=== PATIENT | male | born 1975 | race Caucasian/White ===

== ENCOUNTER → 2016-04-22 | Outpatient (CLI) | payer OTHER ==
[~2016-04-22] MED LIST: ACT300 PO; BUSP15TA70 PO; CPROT OT; FOLI1TAB7 PO; FURO20TA PO; LACT10SO17 PO; MCRK/10 PO; MGNO400 PO; MISCCAP80 PO; NADO20TA PO; PRLSR20 PO; RXC5 PO; SPIR25TA PO; TRAM-10 PO
[2016-04-22 18:52] LABS: ALT/SGPT 35 U/L (12-78); BLOOD UREA NITROGEN 9 mg/dl (7-18); BUN/CREATININE RATIO 8.8 (10-20); CALCIUM 8.4 mg/dl (8.5-10.1); CARBON DIOXIDE 21 mmol/L (21-32); CHLORIDE 106 mmol/L (98-107); GLUCOSE 108 mg/dl (70-99); POTASSIUM 3.7 mmol/L (3.5-5.1); SODIUM 141 mmol/L (136-145)
[2016-04-22 18:54] LABS: ALB/GLOB RATIO 0.5 (0.9-2); ALKALINE PHOSPHATASE 141 U/L (45-117); AST/SGOT 30 U/L (15-37)
== END | disposition home or self-care (01) ==
LOC: C.LABSPEC 12:54
PROVIDERS: ATTEND Family Medicine
DX: E87.1 Hypo-osmolality and hyponatremia (principal); R42 Dizziness and giddiness; R56.9 Unspecified convulsions

== ENCOUNTER 2016-07-26 03:59 | Emergency (ER) | payer OTHER ==
[~2016-07-26] VITALS: Ht 172.7 cm; Wt 75.3 kg
[2016-07-26 04:09] VITALS: TEMP 36.8; Ht 172.7 cm; Wt 75.3 kg
--- NOTE | 2016-07-26 04:25 | EMERGENCY ROOM VISIT NOTE ---
History Report prepared by Taniibjulian: Michael Collins Under the Supervision of: Dr. Jeffery Gagnon D.O. First contact with patient: 04:16 Chief Complaint: ABDOMINAL PAIN Stated Complaint: ABD PAIN Nursing Triage Summary: Triage note: Pt reporting upper abdominal pain and right sided chest pain starting at 7pm yesterday evening. Pt took antiacid with relief for "a little bit". Pt states chest pain gets worse when he takes a deep breath. Denies nauea for vomiting. Normal BM. No blood in stools. History of Present Illness The patient is a 40 year old male who presents to the Emergency Room with complaints of persistent upper abdominal pain for the past two days. The patient also has pain in his chest. The pain is worsened with breathing and sometimes with movement. There are no reliving factors known to the patient. The pain was initially 2-3/10 in severity, and is currently rated 4/10 in severity. The patient never had pain like this before, and he notes that he has not had any problems with eating. The patient also has a nonproductive cough. The patient denies any fevers or vomiting. He has a history of alcoholic cirrhosis. Source of History: patient Onset: two days ago Position: abdomen (upper) Symptom Intensity: 4/10 Timing: other (persistent) Modifying Factors (Worsening): breathing, movement Associated Symptoms: + chest pain, + cough, No fevers, No vomiting Review of Systems See HPI for pertinent positives and negatives. A total of ten systems were reviewed and were otherwise negative. Past Medical & Surgical Medical Problems: (1) Alcoholic cirrhosis Family History No pertinent family history Social History Smoking Status: Never Smoker Current/Historical Medications Scheduled Buspirone Hcl (Buspar), 5 MG PO BID Folic Acid (Folvite), 1 MG PO DAILY Furosemide (Lasix), 20 MG PO DAILY Nadolol (Corgard), 10 MG PO DAILY Omeprazole (Prilosec), 20 MG PO DAILY Potassium Chloride (K-Tabs), 10 MEQ PO DAILY Probiotic Product (Probiotic), 1 DOSE PO DAILY Spironolactone (Aldactone), 25 MG PO DAILY Allergies Coded Allergies: Aspirin (Verified Allergy, Unknown, THINS BLOOD, 07/26/16) Physical Exam Vital Signs Date Time Temp Pulse Resp B/P Pulse Ox O2 Delivery O2 Flow Rate FiO2 07/26/16 04:09 36.8 68 18 95/61 99 Room Air Physical Exam GENERAL: Awake, alert, well-appearing, in no distress HENT: Normocephalic, atraumatic. Oropharynx unremarkable. EYES: Normal conjunctiva. Sclera non-icteric. NECK: Supple. No nuchal rigidity. FROM. No JVD. RESPIRATORY: Clear to auscultation. CARDIAC: Regular rate, normal rhythm. Extremities warm and well perfused. Pulses equal. ABDOMEN: Soft, non-distended. No tenderness to palpation. No rebound or guarding. No masses. RECTAL: Deferred. MUSCULOSKELETAL: Right lateral chest wall tenderness to palpation.. The back is symmetrical on inspection without obvious abnormality. There is no CVA tenderness to palpation. No joint edema. LOWER EXTREMITIES: Calves are equal size bilaterally and non-tender. No edema. No discoloration. NEURO: Normal sensorium. No sensory or motor deficits noted. SKIN: No rash or jaundice noted. Medical Decision & Procedures ER Provider Diagnostic Interpretation: X-ray: Per my interpretation. Chest One View Portable: Negative for fracture and pneumothorax. Negative for effusion. Laboratory Results 07/26/16 04:26 Red Blood Count 3.45, Mean Corpuscular Volume 98.8, Mean Corpuscular Hemoglobin 33.9, Mean Corpuscular Hemoglobin Concent 34.3, Mean Platelet Volume 10.0, Neutrophils (%) (Auto) 38.2, Lymphocytes (%) (Auto) 43.3, Monocytes (%) (Auto) 13.2, Eosinophils (%) (Auto) 4.3, Basophils (%) (Auto) 0.9, Neutrophils # (Auto ) 2.84, Lymphocytes # (Auto) 3.22, Monocytes # (Auto) 0.98, Eosinophils # (Auto ) 0.32, Basophils # (Auto) 0.07 07/26/16 04:26 Test 07/26/16 04:26 07/26/16 04:36 White Blood Count 7.44 K/uL (4.8-10.8) Red Blood Count 3.45 M/uL (4.7-6.1) Hemoglobin 11.7 g/dL (14.0-18.0) Hematocrit 34.1 % (42-52) Mean Corpuscular Volume 98.8 fL (80-100) Mean Corpuscular Hemoglobin 33.9 pg (25-34) Mean Corpuscular Hemoglobin Concent 34.3 g/dl (32-36) Platelet Count 126 K/uL (130-400) Mean Platelet Volume 10.0 fL (7.4-10.4) Neutrophils (%) (Auto) 38.2 % Lymphocytes (%) (Auto) 43.3 % Monocytes (%) (Auto) 13.2 % Eosinophils (%) (Auto) 4.3 % Basophils (%) (Auto) 0.9 % Neutrophils # (Auto) 2.84 K/uL (1.4-6.5) Lymphocytes # (Auto) 3.22 K/uL (1.2-3.4) Monocytes # (Auto) 0.98 K/uL (0.11-0.59) Eosinophils # (Auto) 0.32 K/uL (0-0.5) Basophils # (Auto) 0.07 K/uL (0-0.2) RDW Standard Deviation 51.9 fL (36.4-46.3) RDW Coefficient of Variation 14.5 % (11.5-14.5) Immature Granulocyte % (Auto) 0.1 % Immature Granulocyte # (Auto) 0.01 K/uL (0.00-0.02) Anion Gap 5.0 mmol/L (3-11) Est Creatinine Clear Calc Drug Dose 101.2 ml/min Estimated GFR () 118.5 Estimated GFR (Non- 102.2 BUN/Creatinine Ratio 10.3 (10-20) Calcium Level 8.7 mg/dl (8.5-10.1) Total Bilirubin 3.0 mg/dl (0.2-1) Direct Bilirubin 1.0 mg/dl (0-0.2) Aspartate Amino Transf (AST/SGOT) 35 U/L (15-37) Alanine Aminotransferase (ALT/SGPT) 28 U/L (12-78) Alkaline Phosphatase 176 U/L (45-117) Total Protein 7.2 gm/dl (6.4-8.2) Albumin 2.6 gm/dl (3.4-5.0) Bedside Troponin I 0.010 ng/ml (0-0.045) Laboratory results reviewed by me ECG Indication: chest pain Rate (beats per minute): 59 Rhythm: sinus bradycardia Findings: no acute ischemic change, no ectopy ED Course 0420: The patient was evaluated in room B10. A complete history and physical exam was performed. 0538: The patient feels much better and does not currently have any pain. I discussed the work up with him. Medical Decision Differential diagnosis includes musculoskeletal chest pain, rib strain, rib fracture, metabolic derangement. Patient in no distress at 5:44 AM, discussed the workup with the patient we'll treat him with pain medicine for home Impression Primary Impression: Rib pain Scribe Attestation The scribe's documentation has been prepared under my direction and personally reviewed by me in its entirety. I confirm that the note above accurately reflects all work, treatment, procedures, and medical decision making performed by me. Departure Information Dispostion Home / Self-Care Prescriptions Tramadol (Ultram) 50 Mg Tab 1-2 TABS PO BID for 2 Days, #10 TAB Prov: Jeffery Gagnon, DO 07/26/16 Referrals No Doctor, Assigned (PCP) Patient Instructions ED Contusion Rib, My [facility]
[2016-07-26 04:49] LABS: BASO % 0.9 %; BASO ABS # 0.07 K/uL (0-0.2); COMPLETE YES; EOS % 4.3 %; HEMATOCRIT 34.1 % (42-52); IG% 0.1 %; LYMPH % 43.3 %; LYMPH ABS # 3.22 K/uL (1.2-3.4); MEAN CELL VOLUME 98.8 fL (80-100); MEAN CORPUSCULAR HEMOGLOBIN 33.9 pg (25-34); MEAN CORPUSCULAR HGB CONC 34.3 g/dl (32-36); MONO % 13.2 %; NEUT % 38.2 %; PLATELET COUNT 126 K/uL (130-400); RED BLOOD COUNT 3.45 M/uL (4.7-6.1); WHITE BLOOD COUNT 7.44 K/uL (4.8-10.8)
[2016-07-26] MEDS ORDERED: MISCCAP80 PO (05:10)
[2016-07-26] MEDS ORDERED: FURO20TA PO (05:10)
[2016-07-26] MEDS ORDERED: PRLSR20 PO (05:11)
[2016-07-26] MEDS ORDERED: BUSP15TA70 PO (05:11)
[2016-07-26] MEDS ORDERED: FOLI1TAB7 PO (05:11)
[2016-07-26] MEDS ORDERED: SPIR25TA PO (05:11)
[2016-07-26] MEDS ORDERED: MCRK/10 PO (05:14)
[2016-07-26] MEDS ORDERED: NADO20TA PO (05:14)
[2016-07-26 05:31] LABS: BUN/CREATININE RATIO 10.3 (10-20); CALCIUM 8.7 mg/dl (8.5-10.1); CREATININE 0.92 mg/dl (0.60-1.40)
[2016-07-26 05:36] LABS: POTASSIUM 4.1 mmol/L (3.5-5.1)
[2016-07-26] MEDS ORDERED: TRAM-10 PO (05:45)
[2016-07-26 05:59] VITALS: BP 108/57; PULSE 75; O2SAT 99
--- NOTE | 2016-07-26 07:59 | DIAGNOSTIC IMAGING REPORT ---
CHEST ONE VIEW PORTABLE HISTORY: Atypical CHEST PAIN COMPARISON: None. FINDINGS: Cardiac silhouette appears borderline enlarged. The lungs are clear. No pleural effusions. No pneumothorax. IMPRESSION: Borderline enlargement of the cardiac silhouette. Electronically signed by: Naresh Hayes M.D. 07/26/2016 7:58 AM Dictated Date/Time: 07/26/2016 7:57 AM
[2016-08-12] MEDS ORDERED: NADO20TA PO (20:00)
[2016-08-12] MEDS ORDERED: CPROT OT (20:00)
[2016-08-12] MEDS ORDERED: MGNO400 PO (20:00)
== END 2016-07-26 06:00 | disposition home or self-care (01) ==
LOC: C.EDB 04:02
DX: R07.81 Pleurodynia (principal); R00.1 Bradycardia, unspecified; Z79.899 Other long term (current) drug therapy; Z88.6 Allergy status to analgesic agent

== ENCOUNTER 2016-08-10 01:44 | Inpatient (IN) | payer OTHER ==
[~2016-08-10] VITALS: Ht 172.7 cm; Wt 72.7 kg
[~2016-08-10 01:44] MED LIST changes: -ACT300 PO; -CPROT OT; -LACT10SO17 PO; -MGNO400 PO; -RXC5 PO; -TRAM-10 PO
--- NOTE | 2016-08-10 01:55 | EMERGENCY ROOM VISIT NOTE ---
History Report prepared by Brent: Ying Mckee Under the Supervision of: Dr. Daniela Bustillos M.D. First contact with patient: 01:47 Chief Complaint: CHEST PAIN Stated Complaint: CHEST, STOMACH AND BACK PAIN History of Present Illness The patient is a 40 year old male who presents to the Emergency Room with complaints of constant right-sided chest pain for the past 3.5 hours. He is also experiencing RUQ abdominal pain. He rates his current pain as a 6/10 in severity. Tonight he was moving a bed and a mattress when his symptoms began. He states that he has had pain like this before. He has a history of alcoholic cirrhosis. The patient denies fever, vomiting, and abdominal bloating. He was here two weeks ago with similar pain and diagnosed with a rib contusion. Source of History: patient Onset: 3.5 hours ago Position: chest (right) Symptom Intensity: 6/10 Timing: constant Modifying Factors (Worsening): exertion Associated Symptoms: + abdominal pain, No fevers, No vomiting Review of Systems See HPI for pertinent positives & negatives. A total of 10 systems reviewed and were otherwise negative. Past Medical & Surgical Medical Problems: (1) Alcoholic cirrhosis (2) Gall bladder disease Family History No pertinent family history Social History Smoking Status: Never Smoker Alcohol Use: other (former heavy alcohol use, denies current use) Marital Status: single Occupation Status: unemployed Current/Historical Medications Scheduled Buspirone Hcl (Buspar), 5 MG PO BID Folic Acid (Folvite), 1 MG PO DAILY Furosemide (Lasix), 20 MG PO DAILY Nadolol (Corgard), 10 MG PO BID Omeprazole (Prilosec), 20 MG PO DAILY Potassium Chloride (K-Tabs), 10 MEQ PO DAILY Probiotic Product (Probiotic), 1 DOSE PO DAILY Spironolactone (Aldactone), 25 MG PO DAILY Scheduled PRN Lactulose (Chronulac), 15 ML PO BID PRN for Constipation Allergies Coded Allergies: Aspirin (Verified Allergy, Unknown, THINS BLOOD, 07/26/16) Physical Exam Vital Signs Date Time Temp Pulse Resp B/P Pulse Ox O2 Delivery O2 Flow Rate FiO2 08/10/16 05:00 111/72 08/10/16 04:45 71 15 95 08/10/16 04:31 107/60 08/10/16 04:15 71 18 97 08/10/16 04:00 119/72 08/10/16 03:45 69 17 100 08/10/16 03:44 78 20 114/70 96 Room Air 08/10/16 02:32 72 16 113/68 100 Room Air 08/10/16 01:57 100 Room Air 08/10/16 01:55 70 08/10/16 01:54 36.7 72 16 119/73 100 Room Air 08/10/16 01:54 100 Room Air Physical Exam Vital signs reviewed. General: Well-appearing 40 year old male, in no significant distress. HEENT: Positive scleral icterus, PERRLA, neck supple. Atraumatic. Draining, bulging opaque with surrounding erythema right TM. Cardiovascular: Regular rate and rhythm, no extra sounds. Pulmonary: Clear to auscultation bilaterally, normal work of breathing. Abdomen: Soft, RUQ tenderness, nondistended, positive bowel sounds. Musculoskeletal: Atraumatic, no peripheral edema. Neurologic: Patient awake alert and oriented x 3, full strength in all 4 extremities. Cranial nerves 2 through 12 grossly intact. Skin: Jaundice, warm, dry, no rash Medical Decision & Procedures ER Provider Diagnostic Interpretation: Radiology results as stated below per my review and radiologist interpretation: US RUQ: Dense enlarged liver likely fatty. Correlate with LFTs for hepatitis. 7 mm cysts of the liver. Cholelithiasis with stone or sludge in the gallbladder neck, cannot exclude possible sludge ball or mass. No definite acute cholecystitis. Negative Curry' s sign. Normal gallbladder wall. Prominent CBD 8 mm. Consider MRCP. Pancreas not well seen. Right kidney unremarkable. Radiologist: Toan Timmons MD. Laboratory Results 08/10/16 01:55 Red Blood Count 3.53, Mean Corpuscular Volume 98.0, Mean Corpuscular Hemoglobin 32.6, Mean Corpuscular Hemoglobin Concent 33.2, Mean Platelet Volume 10.1, Neutrophils (%) (Auto) 44.3, Lymphocytes (%) (Auto) 33.3, Monocytes (%) (Auto) 16.8, Eosinophils (%) (Auto) 3.8, Basophils (%) (Auto) 1.7, Neutrophils # (Auto ) 3.06, Lymphocytes # (Auto) 2.30, Monocytes # (Auto) 1.16, Eosinophils # (Auto ) 0.26, Basophils # (Auto) 0.12 08/10/16 01:55 Test 08/10/16 01:55 08/10/16 02:30 White Blood Count 6.91 K/uL (4.8-10.8) Red Blood Count 3.53 M/uL (4.7-6.1) Hemoglobin 11.5 g/dL (14.0-18.0) Hematocrit 34.6 % (42-52) Mean Corpuscular Volume 98.0 fL (80-100) Mean Corpuscular Hemoglobin 32.6 pg (25-34) Mean Corpuscular Hemoglobin Concent 33.2 g/dl (32-36) Platelet Count 129 K/uL (130-400) Mean Platelet Volume 10.1 fL (7.4-10.4) Neutrophils (%) (Auto) 44.3 % Lymphocytes (%) (Auto) 33.3 % Monocytes (%) (Auto) 16.8 % Eosinophils (%) (Auto) 3.8 % Basophils (%) (Auto) 1.7 % Neutrophils # (Auto) 3.06 K/uL (1.4-6.5) Lymphocytes # (Auto) 2.30 K/uL (1.2-3.4) Monocytes # (Auto) 1.16 K/uL (0.11-0.59) Eosinophils # (Auto) 0.26 K/uL (0-0.5) Basophils # (Auto) 0.12 K/uL (0-0.2) RDW Standard Deviation 52.2 fL (36.4-46.3) RDW Coefficient of Variation 14.6 % (11.5-14.5) Immature Granulocyte % (Auto) 0.1 % Immature Granulocyte # (Auto) 0.01 K/uL (0.00-0.02) Prothrombin Time 16.7 SECONDS (9.0-12.0) Prothromb Time International Ratio 1.5 (0.9-1.1) Activated Partial Thromboplast Time 34.6 SECONDS (21.0-31.0) Partial Thromboplastin Ratio 1.3 Anion Gap 7.0 mmol/L (3-11) Est Creatinine Clear Calc Drug Dose 112.1 ml/min Estimated GFR () 125.8 Estimated GFR (Non- 108.5 BUN/Creatinine Ratio 10.0 (10-20) Calcium Level 8.6 mg/dl (8.5-10.1) Magnesium Level 1.6 mg/dl (1.8-2.4) Total Bilirubin 3.2 mg/dl (0.2-1) Direct Bilirubin 1.1 mg/dl (0-0.2) Aspartate Amino Transf (AST/SGOT) 45 U/L (15-37) Alanine Aminotransferase (ALT/SGPT) 26 U/L (12-78) Alkaline Phosphatase 221 U/L (45-117) Total Creatine Kinase 73 U/L (39-308) Creatine Kinase MB 1.4 ng/ml (0.5-3.6) Creatine Kinase MB Ratio 1.9 (0-3.0) Troponin I < 0.015 ng/ml (0-0.045) Total Protein 7.5 gm/dl (6.4-8.2) Albumin 2.8 gm/dl (3.4-5.0) Chemistry Specimen Hemolysis Urine Color DK YELLOW Urine Appearance CLEAR (CLEAR) Urine pH 6.0 (4.5-7.5) Urine Specific Pandora 1.028 (1.000-1.030) Urine Protein NEG (NEG) Urine Glucose (UA) NEG (NEG) Urine Ketones TRACE (NEG) Urine Occult Blood NEG (NEG) Urine Nitrite POS (NEG) Urine Bilirubin 1+ (NEG) Urine Urobilinogen NEG (NEG) Urine Leukocyte Esterase NEG (NEG) Urine WBC (Auto) 1-5 /hpf (0-5) Urine RBC (Auto) 0-4 /hpf (0-4) Urine Hyaline Casts (Auto) 1-5 /lpf (0-5) Urine Epithelial Cells (Auto) 5-10 /lpf (0-5) Urine Bacteria (Auto) NEG (NEG) Laboratory results per my review. Medications Administered Medications (Trade) Dose Ordered Sig/Lisa Route Start Time Stop Time Status Last Admin Dose Admin Hydromorphone HCl (Dilaudid Inj) 1 mg NOW STAT IV 08/10/16 02:31 08/10/16 02:33 DC 08/10/16 02:39 1 MG Ciprofloxacin HCl 4 drops 4 drops NOW STAT OT 08/10/16 04:54 08/10/16 04:56 DC 08/10/16 05:09 4 DROPS Ampicillin Sodium/ Sulbactam Sodium/ Sodium Chloride (Unasyn Inj/Nss 100ml) 108 ml @ 200 mls/hr ONE ONCE IV 08/10/16 05:00 08/10/16 05:32 DC 08/10/16 05:09 200 MLS/HR ECG Indication: abdominal pain Rate (beats per minute): 73 Rhythm: normal sinus Findings: no acute ischemic change, no ectopy ED Course 0155: Past medical records reviewed. The patient was evaluated in room B10. A complete history and physical examination was performed. 0231: Dilaudid 1 mg IV 0450: At this time I spoke with Dr. Sosa. We discussed the patient's case. [facility]. 0452: I reassessed the patient at this time. He is feeling better and resting comfortably. I discussed the results and treatment plan with the patient. I answered all pertaining questions that he had. He expressed understanding and verbalized agreement. Medical Decision Differential diagnoses includes acute coronary syndrome, pulmonary embolus, aortic dissection, musculoskeletal pain, pneumonia, pleural effusion, pneumothorax, gastritis, peptic ulcer disease. This patient was evaluated and appeared to be in some discomfort. IV access was obtained and laboratory work was drawn. The patient was placed on case monitor. Patient's laboratory work reveals an elevated total bilirubin, elevated transaminases. Ultrasound of the right upper quadrant was performed due to the location of the patient's pain and is concerning for a sludge bowel or stones in the gallbladder neck. MRCP is recommended. The patient felt improved after IV Dilaudid. After discussion with the patient regarding the findings, his father states he's been complaining of right ear pain. Evaluation of the right TM reveals a mild perforation with significant otitis media. Cipro otic was placed and the patient was given IV Unasyn. This should be adequate coverage for both the ER and the abdomen. The patient was discussed with the hospitalist service will evaluate the patient for further management. Consults Time Called: [phone] Consulting Physician: Dr. Sosa Returned Call: [phone] At this time I spoke with Dr. Sosa. We discussed the patient's case. The patient will be evaluated by the [facility] for further management. Impression Primary Impression: Biliary obstruction Additional Impressions: Hyperbilirubinemia RUQ abdominal pain Right otitis media Scribe Attestation The scribe's documentation has been prepared under my direction and personally reviewed by me in its entirety. I confirm that the note above accurately reflects all work, treatment, procedures, and medical decision making performed by me. Departure Information Dispostion Being Evaluated By Hospitalist Prescriptions Lactulose (Chronulac) 10 Gm/15 Ml Syrp 15 ML PO BID Y for Constipation for 10 Days Prov: Josh Sosa MD 08/10/16 Nadolol (CORGARD) 20 Mg Tab 10 MG PO BID, #30 TAB Prov: Josh Sosa MD 08/10/16 Referrals No Doctor, Assigned (PCP) Patient Instructions My [facility] Problem Qualifiers Additional Impressions: Right otitis media Otitis media type: unspecified Chronicity: unspecified Qualified Codes: H66.91 - Otitis media, unspecified, right ear
[2016-08-10 02:27] LABS: BASO % 1.7 %; BASO ABS # 0.12 K/uL (0-0.2); COMPLETE YES; EOS % 3.8 %; HEMATOCRIT 34.6 % (42-52); IG% 0.1 %; LYMPH % 33.3 %; MEAN CORPUSCULAR HEMOGLOBIN 32.6 pg (25-34); MEAN CORPUSCULAR HGB CONC 33.2 g/dl (32-36); MEAN PLATELET VOLUME 10.1 fL (7.4-10.4); MONO % 16.8 %; NEUT % 44.3 %; PLATELET COUNT 129 K/uL (130-400); RED BLOOD COUNT 3.53 M/uL (4.7-6.1); WHITE BLOOD COUNT 6.91 K/uL (4.8-10.8)
[2016-08-10] MEDS ORDERED: HYDROmorphone INJ 1 MG/ML SYR IV STA (02:31)
[2016-08-10 02:41] LABS: INR 1.5 (0.9-1.1); PARTIAL THROMBOPLASTIN RATIO 1.3; PROTHROMBIN TIME (PATIENT) 16.7 SECONDS (9.0-12.0)
[2016-08-10 02:43] LABS: ALKALINE PHOSPHATASE 221 U/L (45-117); ALT/SGPT 26 U/L (12-78); AST/SGOT 45 U/L (15-37); BLOOD UREA NITROGEN 8 mg/dl (7-18); CALCIUM 8.6 mg/dl (8.5-10.1); CARBON DIOXIDE 27 mmol/L (21-32); CHLORIDE 106 mmol/L (98-107); CKMB/CK RATIO 1.9 (0-3.0); CREATININE 0.83 mg/dl (0.60-1.40); GLUCOSE 103 mg/dl (70-99); MAGNESIUM 1.6 mg/dl (1.8-2.4); POTASSIUM 3.7 mmol/L (3.5-5.1); SODIUM 140 mmol/L (136-145)
[2016-08-10 02:43] LABS: URINE APPEARANCE CLEAR (CLEAR); URINE COLOR DK YELLOW; URINE NITRITE POS (NEG); URINE SPECIFIC GRAVITY 1.028 (1.000-1.030); UROBILINOGEN NEG (NEG); ZZUR CULT IF INDIC CLEAN CATCH NO
[2016-08-10 02:45] LABS: MANUAL MICROSCOPIC REQUIRED? NO; REVIEW REQ? NO; URINE BILIRUBIN 1+ (NEG)
[2016-08-10] MEDS ORDERED: CIPROFLOXACIN HCL 0.3% OP SOLN 2.5 ML BTL OT STA (04:54)
[2016-08-10] MEDS ORDERED: AMPICILLIN/SULBACTAM SOD INJ 3,000 MG in SODIUM CHLORIDE 0.9% 100ML 100 ML IV ONE (05:00)
[2016-08-10] MEDS ORDERED: ONDANSETRON INJ 2 MG/ML 2 ML VIAL IV PRN (05:15)
[2016-08-10] MEDS ORDERED: ALUMINUM/MAGNESIUM/SIMETH (MAALOX MAX) 30 ML UDC PO PRN (05:15)
[2016-08-10] MEDS ORDERED: MAGNESIUM HYDROXIDE SUSP 30 ML UDC PO PRN (05:15)
[2016-08-10] MEDS ORDERED: NADO20TA PO (05:15)
[2016-08-10] MEDS ORDERED: LACT10SO17 PO (05:15)
[2016-08-10] MEDS ORDERED: LACTULOSE SYRUP 20 GM/30 ML UDC PO PRN (05:15)
[2016-08-10] MEDS ORDERED: MAGNESIUM SULFATE 1GM / D5W 1 GM BAG ONE (05:41)
[2016-08-10 06:00] VITALS: BP 122/76; PULSE 69; TEMP 36.8; O2SAT 99; Ht 172.7 cm; Wt 72.7 kg
[2016-08-10] MEDS ORDERED: MAGNESIUM SULFATE 1GM / D5W 1 GM in PREMIXED IN D5W 100 ML IV ONE (06:30)
[2016-08-10 07:00] VITALS: O2SAT 99
--- NOTE | 2016-08-10 07:02 | DIAGNOSTIC IMAGING REPORT ---
ABDOMINAL ULTRASOUND, RIGHT UPPER QUADRANT HISTORY: hepatitis, RUQ pain. COMPARISON: None. FINDINGS: Pancreas: Not well visualized due to overlying bowel gas. Liver: The liver is echogenic consistent with fatty change. A 7 mm cyst within the right hepatic lobe. Gallbladder: No gallbladder wall thickening. Lobular slightly echogenic structure within the neck of the gallbladder. This does not appear to demonstrate color flow. Therefore, this favors a sludge ball. However, mass could also have a similar appearance. CBD: Distended up to 8 mm. Right kidney: No hydronephrosis. IMPRESSION: 1. No gallbladder wall thickening. Lobular slightly echogenic structure within the neck of the gallbladder. This does not appear to demonstrate color flow. Therefore, this favors a sludge ball. However, a mass could also have a similar appearance. 2. Distended common bile duct measuring up to 8 mm. Electronically signed by: Naresh Hayes M.D. 08/10/2016 7:01 AM Dictated Date/Time: 08/10/2016 6:58 AM
[2016-08-10] MEDS: HYDROmorphone INJ 1 MG/ML SYR IV PRN ×2 (07:10→11:10)
[2016-08-10] MEDS: D5W AND NSS 1,000 ML IV SCH ×2 (07:10→18:41)
--- NOTE | 2016-08-10 07:35 | HISTORY & PHYSICAL EXAMINATION ---
DATE OF ADMISSION: 08/10/2016 CHIEF COMPLAINT: Right upper quadrant abdominal pain. HISTORY OF PRESENT ILLNESS: This 40-year-old male with past medical history significant for alcohol liver cirrhosis, last alcohol was December 2015; history of thrombocytopenia, anemia, hyponatremia, history of elevated LFTs presents with right upper quadrant abdominal pain. The patient says yesterday after eating had severe right upper quadrant abdominal pain and 8/10 in severity, radiating to his lower abdomen and back, associated with some nausea. Denies any fevers, chills, no diarrhea, no blood in urine or no blood in the stools. No chest pain, no shortness of breath, no cough, no fever, no chills, no blurred vision. No headaches, no dizziness. Currently, pain is better controlled with pain medication. Resting comfortably and hemodynamically stable. ALLERGIES: ASPIRIN. PAST MEDICAL HISTORY: As mentioned above. PAST SURGICAL HISTORY: Tonsillectomy. MEDICATIONS: The patient is on potassium chloride 10 mEq p.o. daily, spironolactone 25 mg p.o. daily, Lasix 20 mg p.o. daily, lactulose 15 mL p.o. b.i.d. p.r.n. for constipation, Prilosec 20 mg p.o. b.i.d., lactobacillus 1 capsule p.o. b.i.d., folic acid 1 mg p.o. daily, buspirone 5 mg p.o. b.i.d., nadolol 10 mg p.o. b.i.d. FAMILY HISTORY: Significant for mother asthma, diabetes. Father had prostate cancer. Brother had prostate cancer. Father also had stroke. SOCIAL HISTORY: Single, chews tobacco and heavy alcohol use in the past but sober since December 2015. No drug use. REVIEW OF SYSTEMS: As per HPI. Rest of review of systems negative. PHYSICAL EXAMINATION: GENERAL: The patient is of moderate build, not in distress. VITAL SIGNS: Temperature 36.7, pulse 71, respiratory rate 15, blood pressure 111/72, oxygen 95% on room air. HEENT: No pallor or icterus present. NECK: No JVD, no neck masses, no carotid bruits. CARDIOVASCULAR: S1, S2 heard, regular rate and rhythm, no murmur, no gallop. RESPIRATORY SYSTEM: Clear to auscultation bilaterally. No wheezing, no crackles. ABDOMEN: Soft, bowel sounds present. Right upper quadrant tenderness present, no guarding, no rigidity, no distention. CENTRAL NERVOUS SYSTEM: Cranial nerves II through XII grossly intact. Nonfocal. EXTREMITIES: No edema, no erythema. LABS: WBC 6.9, hemoglobin 11.5, hematocrit 34.6, platelets 129. Sodium 140, potassium 3.7, chloride 106, BUN 8, creatinine 0.8, serum glucose 103, calcium 8.6, magnesium 1.6, total bilirubin 3.2, direct bilirubin 1.1, AST 45, ALT 26, alkaline phosphatase 221. Urinalysis positive for nitrites, PT 16.7, INR 1.5, PTT 34.6. Ultrasound of the abdomen shows fatty liver, cholelithiasis with stone or sludge in the gallbladder neck, cannot exclude possible sludge, or mass, no definitive acute cholecystitis, prominent common bile duct with 8 mm consider MRCP. ASSESSMENT AND PLAN: This is a 40-year-old male who presents with right upper quadrant pain. 1. Right upper quadrant abdominal pain. Ultrasound shows gallbladder sludge with stone versus mass in the gallbladder neck , dilated common bile duct. We will get an MRCP. We will admit to medical floor, n.p.o. except meds, IV fluids, IV pain medications, IV antiemetics. Consult surgery for further recommendations. 2. History of alcohol liver cirrhosis. Holding Lasix and spironolactone while patient is n.p.o. and on fluids. We will monitor for volume overload. Continue lactulose and nadolol. 3. History of thrombocytopenia secondary to above. We will follow the labs. 4. Deep venous thrombosis prophylaxis. SCDs and TEDs for now. 5. Disposition: Admit to medical floor. Expect to discharge home and follow with family doctor. Level 1 full code. MTDD
[2016-08-10 07:37] VITALS: BP 111/75; PULSE 74; TEMP 36.6; O2SAT 95
[2016-08-10] MEDS: ACETAMINOPHEN 325 MG TAB PO PRN (08:51)
[2016-08-10] MEDS: MAGNESIUM OXIDE 400 MG TAB PO SCH ×2 (08:56→21:22)
[2016-08-10] MEDS: POTASSIUM CHLORIDE 10 MEQ TABCR PO SCH (08:56)
[2016-08-10] MEDS: NADOLOL 40 MG TAB PO SCH ×2 (08:57→21:23)
[2016-08-10] MEDS: PANTOprazole SOD 40 MG TAB PO SCH (08:58)
[2016-08-10] MEDS ORDERED: PROBIOTIC PRODUCT PO SCH (09:00)
--- NOTE | 2016-08-10 11:22 | Surgery Consultation ---
Consultation Date of Consultation: August 10, 2016. Attending Physician: Carlin Bess MD History of Present Illness pt with known cirrhosis with recent RUQ /epigastric ttp and nausea. pain currently improved. Past Medical/Surgical History Medical Problems: (1) Biliary obstruction Status: Acute (2) Hyperbilirubinemia Status: Acute (3) Right otitis media Status: Acute (4) RUQ abdominal pain Status: Acute Family History No pertinent family history Social History Smoking Status: Never Smoker Alcohol Use: former heavy drinker. known cirrhosis. denies current use Allergies Coded Allergies: Aspirin (Verified Allergy, Unknown, THINS BLOOD, 07/26/16) Home Medications Scheduled Buspirone Hcl (Buspar), 5 MG PO BID Folic Acid (Folvite), 1 MG PO DAILY Furosemide (Lasix), 20 MG PO DAILY Nadolol (Corgard), 10 MG PO BID Omeprazole (Prilosec), 20 MG PO DAILY Potassium Chloride (K-Tabs), 10 MEQ PO DAILY Probiotic Product (Probiotic), 1 DOSE PO DAILY Spironolactone (Aldactone), 25 MG PO DAILY Scheduled PRN Lactulose (Chronulac), 15 ML PO BID PRN for Constipation Current Inpatient Medications Current Inpatient Medications Medications (Trade) Dose Ordered Sig/Lisa Route Start Time Stop Time Status Last Admin Dose Admin Acetaminophen (Tylenol Tab) 650 mg Q4H PRN PO 08/10/16 05:15 09/09/16 05:14 08/10/16 08:51 650 MG Al Hydrox/Mg Hydrox/Simethicone (Maalox Max Susp) 15 ml Q4H PRN PO 08/10/16 05:15 09/09/16 05:14 Magnesium Hydroxide (Milk Of Magnesia Susp) 30 ml Q6H PRN PO 08/10/16 05:15 09/09/16 05:14 Ondansetron HCl 4 mg 4 mg Q6H PRN IV 08/10/16 05:15 09/09/16 05:14 Dextrose/Sodium Chloride (D5W And Nss) 1,000 ml @ 100 mls/hr Q10H IV 08/10/16 06:30 09/09/16 06:29 08/10/16 07:10 100 MLS/HR Hydromorphone HCl (Dilaudid Inj) 0.5 mg Q3HWA PRN IV 08/10/16 05:15 08/24/16 05:14 08/10/16 11:10 0.5 MG Buspirone HCl (Buspar Tab) 5 mg BID PO 08/10/16 09:00 09/09/16 08:59 08/10/16 08:55 5 MG Folic Acid (Folvite Tab) 1 mg DAILY PO 08/10/16 09:00 09/09/16 08:59 08/10/16 08:56 1 MG Pantoprazole Sodium (Protonix Tab) 40 mg QAM PO 08/10/16 09:00 09/09/16 08:59 08/10/16 08:58 40 MG Potassium Chloride (Klor-Con M10) 10 meq DAILY PO 08/10/16 09:00 09/09/16 08:59 08/10/16 08:56 10 MEQ Lactulose (Chronulac Syrup) 10 gm BID PRN PO 08/10/16 05:15 09/09/16 05:14 Nadolol (Corgard Tab) 10 mg BID PO 08/10/16 09:00 09/09/16 08:59 08/10/16 08:57 10 MG Magnesium Oxide (Mag-Ox Tab) 400 mg BID PO 08/10/16 09:00 09/09/16 08:59 08/10/16 08:56 400 MG Review of Systems Abdomen: + nausea, + pain, + vomiting Physical Exam Date Time Temp Pulse Resp B/P Pulse Ox O2 Delivery O2 Flow Rate FiO2 08/10/16 07:37 36.6 74 15 111/75 95 Room Air 08/10/16 07:00 99 Room Air 08/10/16 06:00 Room Air 08/10/16 06:00 36.8 69 18 122/76 99 Room Air 08/10/16 06:00 36.8 69 18 122/76 Room Air 08/10/16 05:00 111/72 08/10/16 04:45 71 15 95 08/10/16 04:31 107/60 08/10/16 04:15 71 18 97 08/10/16 04:00 119/72 08/10/16 03:45 69 17 100 08/10/16 03:44 78 20 114/70 96 Room Air 08/10/16 02:32 72 16 113/68 100 Room Air 08/10/16 01:57 100 Room Air 08/10/16 01:55 70 08/10/16 01:54 36.7 72 16 119/73 100 Room Air 08/10/16 01:54 100 Room Air General Appearance: no apparent distress Head: normocephalic, atraumatic Eyes: normal inspection, EOMI ENT: hearing grossly normal Neck: supple, no JVD Cardiovascular: regular rate, rhythm Abdomen/GI: soft, + pertinent finding (mild epigastric ttp. no g/r/r) Extremities/Musculoskelatal: no pedal edema, normal range of motion Neurologic/Psych: alert, oriented x 3 Skin: normal color, warm/dry, no rash Laboratory Results Last 24 Hours Test 08/10/16 01:55 08/10/16 02:30 White Blood Count 6.91 K/uL Red Blood Count 3.53 M/uL Hemoglobin 11.5 g/dL Hematocrit 34.6 % Mean Corpuscular Volume 98.0 fL Mean Corpuscular Hemoglobin 32.6 pg Mean Corpuscular Hemoglobin Concent 33.2 g/dl Platelet Count 129 K/uL Mean Platelet Volume 10.1 fL Neutrophils (%) (Auto) 44.3 % Lymphocytes (%) (Auto) 33.3 % Monocytes (%) (Auto) 16.8 % Eosinophils (%) (Auto) 3.8 % Basophils (%) (Auto) 1.7 % Neutrophils # (Auto) 3.06 K/uL Lymphocytes # (Auto) 2.30 K/uL Monocytes # (Auto) 1.16 K/uL Eosinophils # (Auto) 0.26 K/uL Basophils # (Auto) 0.12 K/uL RDW Standard Deviation 52.2 fL RDW Coefficient of Variation 14.6 % Immature Granulocyte % (Auto) 0.1 % Immature Granulocyte # (Auto) 0.01 K/uL Prothrombin Time 16.7 SECONDS Prothromb Time International Ratio 1.5 Activated Partial Thromboplast Time 34.6 SECONDS Partial Thromboplastin Ratio 1.3 Sodium Level 140 mmol/L Potassium Level 3.7 mmol/L Chloride Level 106 mmol/L Carbon Dioxide Level 27 mmol/L Anion Gap 7.0 mmol/L Blood Urea Nitrogen 8 mg/dl Creatinine 0.83 mg/dl Est Creatinine Clear Calc Drug Dose 112.1 ml/min Estimated GFR () 125.8 Estimated GFR (Non- 108.5 BUN/Creatinine Ratio 10.0 Random Glucose 103 mg/dl Calcium Level 8.6 mg/dl Magnesium Level 1.6 mg/dl Total Bilirubin 3.2 mg/dl Direct Bilirubin 1.1 mg/dl Aspartate Amino Transf (AST/SGOT) 45 U/L Alanine Aminotransferase (ALT/SGPT) 26 U/L Alkaline Phosphatase 221 U/L Total Creatine Kinase 73 U/L Creatine Kinase MB 1.4 ng/ml Creatine Kinase MB Ratio 1.9 Troponin I < 0.015 ng/ml Total Protein 7.5 gm/dl Albumin 2.8 gm/dl Chemistry Specimen Hemolysis Urine Color DK YELLOW Urine Appearance CLEAR Urine pH 6.0 Urine Specific [place] 1.028 Urine Protein NEG Urine Glucose (UA) NEG Urine Ketones TRACE Urine Occult Blood NEG Urine Nitrite POS Urine Bilirubin 1+ Urine Urobilinogen NEG Urine Leukocyte Esterase NEG Urine WBC (Auto) 1-5 /hpf Urine RBC (Auto) 0-4 /hpf Urine Hyaline Casts (Auto) 1-5 /lpf Urine Epithelial Cells (Auto) 5-10 /lpf Urine Bacteria (Auto) NEG Assessment & Plan symptomatic gallstones with elevated LFT's for MRCP today. may need ERCP will eventually need lap royal. will follow along
--- NOTE | 2016-08-10 12:14 | DIAGNOSTIC IMAGING REPORT ---
MRCP HISTORY: Abnormal ultrasound. Right upper quadrant abdominal pain. TECHNIQUE: MRCP of the abdomen was performed without intravenous contrast according to standard department protocol. COMPARISON STUDY: Abdominal ultrasound 08/10/2016. FINDINGS: Trace bilateral pleural effusions. Small amount of perihepatic and paraspinal ascites. The spleen is enlarged measuring 14 centers in length. No hepatic or splenic masses. The kidneys and adrenal glands are unremarkable. Gallbladder is mildly distended. There is mild wall thickening measuring up to 3.5 mm given the gallbladder distention. There is trace pericholecystic fluid. Slightly hypointense lobular structures seen within the neck of the gallbladder and within the cystic duct which correspond to the ultrasound abnormality. These range between 3 and 16 mm in size. The main pancreatic duct is normal in course and caliber. The common bile duct measures up to 7 mm in diameter. No filling defects within the common bile duct. A 5 m cystic focus within the pancreatic head. There are few prominent gastrohepatic lymph nodes. IMPRESSION: 1. Multiple slightly hypointense lobular structures seen within the gallbladder neck and cystic duct ranging between 3 mm and 16 mm in size. These favor sludge or stones. There is mild gallbladder wall thickening given the gallbladder distention. There is also trace pericholecystic fluid. Therefore, these findings raise the possibility of acute cholecystitis. Clinical correlation recommended. 2. There is also trace perihepatic and perisplenic ascites. 3. Common bile duct is mildly distended for age measuring up to 7 mm. There are no filling defects seen within the common bile duct. 4. The main pancreatic duct is normal in course and caliber. 5. A 5 mm indeterminate cystic structure within the pancreatic head. This favors a small cystic neoplasm. One year MRCP follow-up can be performed to ensure stability. 6. Splenomegaly. Electronically signed by: Naresh Hayes M.D. 08/10/2016 12:13 PM Dictated Date/Time: 08/10/2016 12:02 PM
[2016-08-10 15:51] VITALS: BP 107/68; PULSE 79; TEMP 36.9; O2SAT 98
--- NOTE | 2016-08-10 19:57 | Progress Note ---
Medicine Progress Note Date & Time of Visit: August 10, 2016 at 19:58. Subjective patient seen resting in bed comfortable states his abdominal pain has resolved denies nausea/vomiting no fever/chills no chest pain, dyspnea, dizziness no other symptoms Objective Last 8 Hrs Date Time Temp Pulse Resp B/P Pulse Ox O2 Delivery O2 Flow Rate FiO2 08/10/16 15:51 36.9 79 18 107/68 98 Room Air Physical Exam: General-oriented x 3, not in distress, speaks in sentences Head- atraumatic Eyes- EOMI, anicteric ENT- oropharynx clear Neck- supple, no JVD, no adenopathy, no thyromegaly;no bruits appreciated Lungs- clear to auscultation b/l Heart- normal rate, regular rhythm; no murmurs Abdomen- normal bowel sounds, soft, non distended, no Curry's sign Extremities- no pretibial edema, no calf tenderness; peripheral pulses intact Neuro- alert, oriented x 3; no gross deficits Skin- warm & dry Laboratory Results: Last 24 Hours Test 08/10/16 01:55 08/10/16 02:30 08/10/16 11:39 White Blood Count 6.91 K/uL Red Blood Count 3.53 M/uL Hemoglobin 11.5 g/dL Hematocrit 34.6 % Mean Corpuscular Volume 98.0 fL Mean Corpuscular Hemoglobin 32.6 pg Mean Corpuscular Hemoglobin Concent 33.2 g/dl Platelet Count 129 K/uL Mean Platelet Volume 10.1 fL Neutrophils (%) (Auto) 44.3 % Lymphocytes (%) (Auto) 33.3 % Monocytes (%) (Auto) 16.8 % Eosinophils (%) (Auto) 3.8 % Basophils (%) (Auto) 1.7 % Neutrophils # (Auto) 3.06 K/uL Lymphocytes # (Auto) 2.30 K/uL Monocytes # (Auto) 1.16 K/uL Eosinophils # (Auto) 0.26 K/uL Basophils # (Auto) 0.12 K/uL RDW Standard Deviation 52.2 fL RDW Coefficient of Variation 14.6 % Immature Granulocyte % (Auto) 0.1 % Immature Granulocyte # (Auto) 0.01 K/uL Prothrombin Time 16.7 SECONDS Prothromb Time International Ratio 1.5 Activated Partial Thromboplast Time 34.6 SECONDS Partial Thromboplastin Ratio 1.3 Sodium Level 140 mmol/L Potassium Level 3.7 mmol/L Chloride Level 106 mmol/L Carbon Dioxide Level 27 mmol/L Anion Gap 7.0 mmol/L Blood Urea Nitrogen 8 mg/dl Creatinine 0.83 mg/dl Est Creatinine Clear Calc Drug Dose 112.1 ml/min Estimated GFR () 125.8 Estimated GFR (Non- 108.5 BUN/Creatinine Ratio 10.0 Random Glucose 103 mg/dl Calcium Level 8.6 mg/dl Magnesium Level 1.6 mg/dl Total Bilirubin 3.2 mg/dl Direct Bilirubin 1.1 mg/dl Aspartate Amino Transf (AST/SGOT) 45 U/L Alanine Aminotransferase (ALT/SGPT) 26 U/L Alkaline Phosphatase 221 U/L Total Creatine Kinase 73 U/L Creatine Kinase MB 1.4 ng/ml Creatine Kinase MB Ratio 1.9 Troponin I < 0.015 ng/ml Total Protein 7.5 gm/dl Albumin 2.8 gm/dl Chemistry Specimen Hemolysis Urine Color DK YELLOW Urine Appearance CLEAR Urine pH 6.0 Urine Specific [place] 1.028 Urine Protein NEG Urine Glucose (UA) NEG Urine Ketones TRACE Urine Occult Blood NEG Urine Nitrite POS Urine Bilirubin 1+ Urine Urobilinogen NEG Urine Leukocyte Esterase NEG Urine WBC (Auto) 1-5 /hpf Urine RBC (Auto) 0-4 /hpf Urine Hyaline Casts (Auto) 1-5 /lpf Urine Epithelial Cells (Auto) 5-10 /lpf Urine Bacteria (Auto) NEG Carcinoembryonic Antigen 2.2 ng/ml Assessment & Plan ASSESSMENT AND PLAN: This is a 40-year-old male who presents with right upper quadrant pain. POSSIBLE ACUTE CHOLECYSTITIS - MRCP noted - remains afebrile - will resume antibiotics- Cipro and Metro IV - awaiting further recommendations by Surgery, appreciate the input NPO for now IV fluids MILD THROMBOCYTOPENIA, ELEVATION OF INR likely from underlying Cirrhosis - no signs of bleeding monitor History of alcohol liver cirrhosis. - Holding Lasix and spironolactone - Continue lactulose and nadolol. Deep venous thrombosis prophylaxis. SCDs and TEDs for now. Disposition: Admit to medical floor. Expect to discharge home and follow with family doctor. Level 1 full code. Current Inpatient Medications: Current Inpatient Medications Medications (Trade) Dose Ordered Sig/Lisa Route Start Time Stop Time Status Last Admin Dose Admin Acetaminophen (Tylenol Tab) 650 mg Q4H PRN PO 08/10/16 05:15 09/09/16 05:14 08/10/16 08:51 650 MG Al Hydrox/Mg Hydrox/Simethicone (Maalox Max Susp) 15 ml Q4H PRN PO 08/10/16 05:15 09/09/16 05:14 Magnesium Hydroxide (Milk Of Magnesia Susp) 30 ml Q6H PRN PO 08/10/16 05:15 09/09/16 05:14 Ondansetron HCl 4 mg 4 mg Q6H PRN IV 08/10/16 05:15 09/09/16 05:14 Dextrose/Sodium Chloride (D5W And Nss) 1,000 ml @ 100 mls/hr Q10H IV 08/10/16 06:30 09/09/16 06:29 08/10/16 18:41 100 MLS/HR Hydromorphone HCl (Dilaudid Inj) 0.5 mg Q3HWA PRN IV 08/10/16 05:15 08/24/16 05:14 08/10/16 11:10 0.5 MG Buspirone HCl (Buspar Tab) 5 mg BID PO 08/10/16 09:00 09/09/16 08:59 08/10/16 08:55 5 MG Folic Acid (Folvite Tab) 1 mg DAILY PO 08/10/16 09:00 09/09/16 08:59 08/10/16 08:56 1 MG Pantoprazole Sodium (Protonix Tab) 40 mg QAM PO 08/10/16 09:00 09/09/16 08:59 08/10/16 08:58 40 MG Potassium Chloride (Klor-Con M10) 10 meq DAILY PO 08/10/16 09:00 09/09/16 08:59 08/10/16 08:56 10 MEQ Lactulose (Chronulac Syrup) 10 gm BID PRN PO 08/10/16 05:15 09/09/16 05:14 Nadolol (Corgard Tab) 10 mg BID PO 08/10/16 09:00 09/09/16 08:59 08/10/16 08:57 10 MG Magnesium Oxide 400 mg 400 mg BID PO 08/10/16 09:00 09/09/16 08:59 08/10/16 08:56 400 MG Ciprofloxacin/ Dextrose 400 mg/ Prmx 200 ml @ 100 mls/hr Q12 IV 08/10/16 21:00 08/20/16 20:59 UNV Metronidazole/Prmx (Flagyl / Nss/ Premixed Nss) 100 ml @ 100 mls/hr Q8H IV 08/10/16 20:00 08/20/16 19:59 UNV
[2016-08-10] MEDS: METRONIDAZOLE / NSS 500 MG in PREMIXED NSS 100 ML IV SCH (21:29)
[2016-08-10] MEDS: CIPROFLOXACIN / D5W 400 MG in PREMIXED IN D5W 200 ML IV SCH (22:50)
[2016-08-10 22:53] VITALS: BP 97/59; PULSE 74; TEMP 36.9; O2SAT 95
[2016-08-11] MEDS: D5W AND NSS 1,000 ML IV SCH ×2 (02:44→11:54)
[2016-08-11] MEDS: METRONIDAZOLE / NSS 500 MG in PREMIXED NSS 100 ML IV SCH ×2 (04:50→13:37)
[2016-08-11 06:01] LABS: HEMATOCRIT 30.5 % (42-52); MEAN CELL VOLUME 97.8 fL (80-100); MEAN CORPUSCULAR HEMOGLOBIN 32.4 pg (25-34); MEAN CORPUSCULAR HGB CONC 33.1 g/dl (32-36); RED BLOOD COUNT 3.12 M/uL (4.7-6.1); WHITE BLOOD COUNT 6.32 K/uL (4.8-10.8)
[2016-08-11 06:11] LABS: INR 1.6 (0.9-1.1); PROTHROMBIN TIME (PATIENT) 17.9 SECONDS (9.0-12.0)
[2016-08-11 06:22] LABS: MEAN PLATELET VOLUME 10.2 fL (7.4-10.4); PLATELET COUNT 93 K/uL (130-400)
[2016-08-11 06:23] LABS: BASO % 1.3 %; BASO ABS # 0.08 K/uL (0-0.2); COMPLETE YES; EOS % 3.3 %; IG% 0.2 %; LYMPH % 31.2 %; LYMPH ABS # 1.97 K/uL (1.2-3.4); MONO % 20.6 %; NEUT % 43.4 %; PLT ESTIMATE DECREASED
[2016-08-11 06:50] LABS: BUN/CREATININE RATIO 7.5 (10-20); CALCIUM 8.2 mg/dl (8.5-10.1); CREATININE 0.74 mg/dl (0.60-1.40); MAGNESIUM 1.7 mg/dl (1.8-2.4); POTASSIUM 3.5 mmol/L (3.5-5.1)
[2016-08-11 07:35] VITALS: O2SAT 99
[2016-08-11 08:11] VITALS: BP 100/64; PULSE 70; TEMP 36.9; O2SAT 97
[2016-08-11] MEDS: NADOLOL 40 MG TAB PO SCH ×2 (08:37→21:13)
[2016-08-11] MEDS: PANTOprazole SOD 40 MG TAB PO SCH (08:39)
[2016-08-11] MEDS: MAGNESIUM OXIDE 400 MG TAB PO SCH ×2 (08:39→21:12)
[2016-08-11] MEDS: POTASSIUM CHLORIDE 10 MEQ TABCR PO SCH (08:39)
--- NOTE | 2016-08-11 09:54 | Progress Note ---
Medicine Progress Note Date & Time of Visit: August 11, 2016 at 09:48. Subjective seen resting in bed, comfortable states RUQ has resolved no nausea, fever/chills denies chest pain, dyspnea, dizziness no other symptoms Objective Last 8 Hrs Date Time Temp Pulse Resp B/P Pulse Ox O2 Delivery O2 Flow Rate FiO2 08/11/16 08:11 36.9 70 16 100/64 97 Room Air 08/11/16 07:35 99 Room Air Physical Exam: General-oriented x 3, not in distress, speaks in sentences Eyes- mild icterus ENT- oropharynx clear Neck- supple, no JVD, Lungs- clear breath sounds bilaterally Heart- normal rate, regular rhythm; no murmurs Abdomen- normal bowel sounds, soft, non distended, no Curry's sign Extremities- no pretibial edema, no calf tenderness; peripheral pulses intact Neuro- alert, oriented x 3; no gross deficits Skin- warm & dry Laboratory Results: Last 24 Hours Test 08/10/16 11:39 08/11/16 05:40 Carcinoembryonic Antigen 2.2 ng/ml White Blood Count 6.32 K/uL Red Blood Count 3.12 M/uL Hemoglobin 10.1 g/dL Hematocrit 30.5 % Mean Corpuscular Volume 97.8 fL Mean Corpuscular Hemoglobin 32.4 pg Mean Corpuscular Hemoglobin Concent 33.1 g/dl Platelet Count 93 K/uL Mean Platelet Volume 10.2 fL Neutrophils (%) (Auto) 43.4 % Lymphocytes (%) (Auto) 31.2 % Monocytes (%) (Auto) 20.6 % Eosinophils (%) (Auto) 3.3 % Basophils (%) (Auto) 1.3 % Neutrophils # (Auto) 2.75 K/uL Lymphocytes # (Auto) 1.97 K/uL Monocytes # (Auto) 1.30 K/uL Eosinophils # (Auto) 0.21 K/uL Basophils # (Auto) 0.08 K/uL RDW Standard Deviation 51.7 fL RDW Coefficient of Variation 14.5 % Immature Granulocyte % (Auto) 0.2 % Immature Granulocyte # (Auto) 0.01 K/uL Platelet Estimate DECREASED Red Blood Cell Morphology Unremarkable Prothrombin Time 17.9 SECONDS Prothromb Time International Ratio 1.6 Sodium Level 142 mmol/L Potassium Level 3.5 mmol/L Chloride Level 110 mmol/L Carbon Dioxide Level 26 mmol/L Anion Gap 6.0 mmol/L Blood Urea Nitrogen 6 mg/dl Creatinine 0.74 mg/dl Est Creatinine Clear Calc Drug Dose 125.8 ml/min Estimated GFR () 131.9 Estimated GFR (Non- 113.8 BUN/Creatinine Ratio 7.5 Random Glucose 106 mg/dl Calcium Level 8.2 mg/dl Magnesium Level 1.7 mg/dl Total Bilirubin 4.2 mg/dl Direct Bilirubin 1.1 mg/dl Aspartate Amino Transf (AST/SGOT) 28 U/L Alanine Aminotransferase (ALT/SGPT) 19 U/L Alkaline Phosphatase 132 U/L Total Protein 6.0 gm/dl Albumin 2.2 gm/dl Assessment & Plan ASSESSMENT AND PLAN: This is a 40-year-old male with history of Alcoholic Liver Cirrhosis who presents with right upper quadrant pain. POSSIBLE ACUTE CHOLECYSTITIS - MRCP: 1. Multiple slightly hypointense lobular structures seen within the gallbladder neck and cystic duct ranging between 3 mm and 16 mm in size. These favor sludge or stones. There is mild gallbladder wall thickening given the gallbladder distention. There is also trace pericholecystic fluid. Therefore, these findings raise the possibility of acute cholecystitis. Clinical correlation recommended. 2. There is also trace perihepatic and perisplenic ascites. 3. Common bile duct is mildly distended for age measuring up to 7 mm. There are no filling defects seen within the common bile duct. 4. The main pancreatic duct is normal in course and caliber. 5. A 5 mm indeterminate cystic structure within the pancreatic head. This favors a small cystic neoplasm. One year MRCP follow-up can be performed to ensure stability. 6. Splenomegaly. - remains afebrile, no leukocytosis no signs of sepsis - Day 2 Cipro and Metro IV D5 NSS while NPO - awaiting further recommendations by Surgery, appreciate the input NPO for now MILD THROMBOCYTOPENIA, ELEVATION OF INR likely from underlying Cirrhosis - no signs of bleeding monitor HYPOMAGNESEMIA replace with IV Mg PANCREATIC CYST - seen on MRCP "A 5 mm indeterminate cystic structure within the pancreatic head. This favors a small cystic neoplasm. One year MRCP follow-up can be performed to ensure stability." - monitor as outpatient History of alcohol liver cirrhosis. - Holding Lasix and spironolactone - Continue lactulose and nadolol. Deep venous thrombosis prophylaxis. SCDs and TEDs for now. Disposition: Expect to discharge home and follow with family doctor. Level 1 full code. Current Inpatient Medications: Current Inpatient Medications Medications (Trade) Dose Ordered Sig/Lisa Route Start Time Stop Time Status Last Admin Dose Admin Acetaminophen (Tylenol Tab) 650 mg Q4H PRN PO 08/10/16 05:15 09/09/16 05:14 08/10/16 08:51 650 MG Al Hydrox/Mg Hydrox/Simethicone (Maalox Max Susp) 15 ml Q4H PRN PO 08/10/16 05:15 09/09/16 05:14 Magnesium Hydroxide (Milk Of Magnesia Susp) 30 ml Q6H PRN PO 08/10/16 05:15 09/09/16 05:14 Ondansetron HCl 4 mg 4 mg Q6H PRN IV 08/10/16 05:15 09/09/16 05:14 Dextrose/Sodium Chloride (D5W And Nss) 1,000 ml @ 100 mls/hr Q10H IV 08/10/16 06:30 09/09/16 06:29 08/11/16 02:44 100 MLS/HR Hydromorphone HCl (Dilaudid Inj) 0.5 mg Q3HWA PRN IV 08/10/16 05:15 08/24/16 05:14 08/10/16 11:10 0.5 MG Buspirone HCl (Buspar Tab) 5 mg BID PO 08/10/16 09:00 09/09/16 08:59 08/11/16 08:38 5 MG Folic Acid (Folvite Tab) 1 mg DAILY PO 08/10/16 09:00 09/09/16 08:59 08/11/16 08:39 1 MG Pantoprazole Sodium (Protonix Tab) 40 mg QAM PO 08/10/16 09:00 09/09/16 08:59 08/11/16 08:39 40 MG Potassium Chloride (Klor-Con M10) 10 meq DAILY PO 08/10/16 09:00 09/09/16 08:59 08/11/16 08:39 10 MEQ Lactulose (Chronulac Syrup) 10 gm BID PRN PO 08/10/16 05:15 09/09/16 05:14 Nadolol (Corgard Tab) 10 mg BID PO 08/10/16 09:00 09/09/16 08:59 08/11/16 08:37 10 MG Magnesium Oxide 400 mg 400 mg BID PO 08/10/16 09:00 09/09/16 08:59 08/11/16 08:39 400 MG Ciprofloxacin/ Dextrose 400 mg/ Prmx 200 ml @ 100 mls/hr Q12H IV 08/10/16 22:00 08/20/16 21:59 08/10/16 22:50 100 MLS/HR Metronidazole/Prmx (Flagyl / Nss/ Premixed Nss) 100 ml @ 100 mls/hr Q8H IV 08/10/16 21:00 08/20/16 20:59 08/11/16 04:50 100 MLS/HR
[2016-08-11] MEDS ORDERED: MAGNESIUM SULFATE 1GM / D5W 1 GM in PREMIXED IN D5W 100 ML IV ONE (10:15)
--- NOTE | 2016-08-11 11:06 | Gastrointestinal Consultation ---
Gastrointestinal Consultation Date of Consultation: August 11, 2016 Reason for Consultation: Elevated bilirubin History of Present Illness Patient is a 40 year old male with known clinical alcohol induced cirrhosis complicated by non-bleeding esophageal varices who presented to the ER 2 days ago with a few hours of ruq pain. He described the pain as dull with periods of being sharp in nature, not related to eating. The pain was not associated with dyspnea, chest pain, or vomiting. Pain persisted to 11 am yesterday and he is now entirely pain free. Upon presentation here he underwent an RUQ us that did no gallbladder wall thickening, mildly prominent CBD and a sludge ball in gallbladder. MRCP revealed normal CBD, no stones in CBD, and only subtle signs of acute cholecystitis that are difficult to determine in the setting of known cirrhosis. Per outpatient notes has had intermittent ruq pain. In regards to his cirrhosis, he has documented non-bleeding esophageal varices, previously had ascites requiring paracentesis while still using EtoH and no ascites since and on diuretics. No current or past hx of HE, bleeding, and is currently unemployed and living with parents. No EtoH in 7 mo. RUQ US Gallbladder: No gallbladder wall thickening. Lobular slightly echogenic structure within the neck of the gallbladder. This does not appear to demonstrate color flow. Therefore, this favors a sludge ball. However, mass could also have a similar appearance. CBD: Distended up to 8 mm. Right kidney: No hydronephrosis. IMPRESSION: 1. No gallbladder wall thickening. Lobular slightly echogenic structure within the neck of the gallbladder. This does not appear to demonstrate color flow. Therefore, this favors a sludge ball. However, a mass could also have a similar appearance. 2. Distended common bile duct measuring up to 8 mm. MRCP IMPRESSION: 1. Multiple slightly hypointense lobular structures seen within the gallbladder neck and cystic duct ranging between 3 mm and 16 mm in size. These favor sludge or stones. There is mild gallbladder wall thickening given the gallbladder distention. There is also trace pericholecystic fluid. Therefore, these findings raise the possibility of acute cholecystitis. Clinical correlation recommended. 2. There is also trace perihepatic and perisplenic ascites. 3. Common bile duct is mildly distended for age measuring up to 7 mm. There are no filling defects seen within the common bile duct. 4. The main pancreatic duct is normal in course and caliber. 5. A 5 mm indeterminate cystic structure within the pancreatic head. This favors a small cystic neoplasm. One year MRCP follow-up can be performed to ensure stability. Decompensations Esophageal varices on nadolol 10 bid (previously on 20 bid but held due to dizziness) Ascites on lasix 40 aldactone 100 SBP treated empirically on 02/11/17 Screenings EGD 04/18/16: Three columns of non-bleeding grade II varices were found in the middle third of the esophagus and in the lower third of the esophagus. No stigmata of recent bleeding were evident and no red dinh signs were present. Portal hypertensive gastropathy was found in the entire examined stomach. The examined duodenum was normal. Immunizations: unknown immunity HCC 01/15/16: The liver is increased in size and echogenicity. The liver measures 21 cm. No definite focal masses are seen. Large amount of sludge is seen within the gallbladder. No shadowing stones are seen. The gallbladder wall is normal. No pericholecystic fluid is seen. A definite sonographic Curry's sign was not elicited. There is no intra-or extrahepatic biliary duct dilatation. The common bile duct measures 2-3 mm. The right kidney is normal in size and echogenicity with no shadowing calculi, hydronephrosis, or gross masses. It measures 11.4 cm. The pancreas is not well visualized. There is a small amount of ascites adjacent to the liver. Past Medical/Surgical History Medical Problems: (1) Biliary obstruction Status: Acute (2) Hyperbilirubinemia Status: Acute (3) Right otitis media Status: Acute (4) RUQ abdominal pain Status: Acute Family History No pertinent family history Social History Smoking Status: Never Smoker Alcohol Use: other (former heavy alcohol use, denies current use) Marital Status: single Occupation Status: unemployed Allergies Coded Allergies: Aspirin (Verified Allergy, Unknown, THINS BLOOD, 07/26/16) Current Medications Home Meds and Scripts Medications Dose Route/Sig Max Daily Dose Days Date Category Dose Instructions Chronulac (Lactulose) 10 Gm/15 Ml Syrp 15 Ml PO BID PRN 10 08/10/16 Rx Corgard (Nadolol) 20 Mg Tab 10 Mg PO BID 08/10/16 Rx K-Tabs (Potassium Chloride) 10 Meq Tabcr 10 Meq PO DAILY 07/26/16 Reported Folvite (Folic Acid) 1 Mg Tab 1 Mg PO DAILY 07/26/16 Reported Prilosec (Omeprazole) 20 Mg Capcr 20 Mg PO DAILY 07/26/16 Reported Aldactone (Spironolactone) 25 Mg Tab 25 Mg PO DAILY 07/26/16 Reported Buspar (Buspirone Hcl) 15 Mg Tab 5 Mg PO BID 07/26/16 Reported Probiotic (Probiotic Product) 1 Cap Cap 1 Dose PO DAILY 07/26/16 Reported 10 [employer] Lasix (Furosemide) 20 Mg Tab 20 Mg PO DAILY 07/26/16 Reported Review of Systems Constitutional: No chills, No fatigue, No fever, No problem reported, No see HPI, No sweats, No weakness, No weight loss Eyes: No diplopia, No discharge, No eye pain, No problem reported, No redness, No see HPI, No worsening of vision ENT: No dental problems, No hearing loss, No nasal symptoms, No pain on swallowing, No problem reported, No see HPI, No sore throat, No tinnitus, No trouble swallowing, No unusual epistaxis Respiratory: No cough, No dyspnea at rest, No dyspnea on exertion, No hemoptysis, No problem reported, No see HPI, No shortness of breath, No sputum, No wheezing Cardiac: No PND, No chest pain, No claudication, No edema, No orthopnea, No palpitations, No problem reported, No see HPI Abdomen: No GI bleeding, No acolic stools, No constipation, No dark urine, No diarrhea, No dysphagia, No jaundice, No nausea, No odynophagia, No pain, No problem reported, No see HPI, No vomiting Musculoskeletal: No calf pain, No joint pain, No muscle pain, No problem reported, No see HPI, No swelling Male : No dysuria, No hematuria, No incontinence, No nocturia more than once/ night, No problem reported, No see HPI, No sexual dysfunction, No slowing stream , No urinary frequency Neuro: No balance problems, No memory loss, No numbness/tingling, No paralysis , No problem reported, No see HPI, No vertigo, No weakness Psych: No anhedonism, No anxiety, No depression symptoms, No insomnia, No problem reported, No see HPI, No substance abuse Heme: No abnormal bleeding/bruising, No clotting problems, No night sweats, No problem reported, No see HPI, No swollen lymph nodes Physical Exam Date Time Temp Pulse Resp B/P Pulse Ox O2 Delivery O2 Flow Rate FiO2 08/11/16 08:11 36.9 70 16 100/64 97 Room Air 08/11/16 07:35 99 Room Air 08/11/16 00:15 Room Air 08/10/16 22:53 36.9 74 16 97/59 95 Room Air 08/10/16 15:51 36.9 79 18 107/68 98 Room Air 08/10/16 15:40 Room Air General Appearance: WD/WN, + pertinent finding (mildly jaundiced) ENT: normal ENT inspection Neck: supple Respiratory/Chest: chest non-tender, lungs clear, normal breath sounds Cardiovascular: regular rate, rhythm, no edema Abdomen: normal bowel sounds, non tender, soft Neurologic/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 Range 04/17/2016 06:08 04/30/2016 13:58 06/07/2016 09:12 06/18/2016 13:56 12/2016 09:19 PT/INR-PT Latest Ref Range: 11.5 - 14.6 seconds 21.2 (H) 20.3 (H) PT/INR-INR Latest Ref Range: 0.82 - 1.12 1.84 (H) 1.74 (H) ALBUMIN Latest Ref Range: 3.8 - 5.0 g/dL 3.0 (L) 3.2 (L) 3.0 (L) 3.1 (L) ALKALINE PHOSPHATASE Latest Ref Range: 0 - 153 U/L 127 144 178 (H) 125 ALT Latest Ref Range: 10 - 50 U/L 28 23 8 (L) 24 AMMONIA Latest Ref Range: 11 - 35 umol/L 24 AST Latest Ref Range: 10 - 50 U/L 45 37 39 43 BILIRUBIN Latest Ref Range: 0 - 1.2 mg/dL 3.3 (H) 3.2 (H) 2.5 (H) 4.3 (H) BILIRUBIN, DIRECT Latest Ref Range: 0 - 0.3 mg/dL 1.2 (H) HEP A AB G+M Latest Ref Range: NEG NEGATIVE HEP B SURFACE AB Latest Units: mIU/mL <3.5 HEPATITIS B SURFACE ANTIBODY Unknown Rpt PROTEIN Latest Ref Range: 6.0 - 8.3 g/dL 7.4 7.6 7.7 7.4 Laboratory Results Last 24 Hours Test 08/10/16 11:39 08/11/16 05:40 Carcinoembryonic Antigen 2.2 ng/ml White Blood Count 6.32 K/uL Red Blood Count 3.12 M/uL Hemoglobin 10.1 g/dL Hematocrit 30.5 % Mean Corpuscular Volume 97.8 fL Mean Corpuscular Hemoglobin 32.4 pg Mean Corpuscular Hemoglobin Concent 33.1 g/dl Platelet Count 93 K/uL Mean Platelet Volume 10.2 fL Neutrophils (%) (Auto) 43.4 % Lymphocytes (%) (Auto) 31.2 % Monocytes (%) (Auto) 20.6 % Eosinophils (%) (Auto) 3.3 % Basophils (%) (Auto) 1.3 % Neutrophils # (Auto) 2.75 K/uL Lymphocytes # (Auto) 1.97 K/uL Monocytes # (Auto) 1.30 K/uL Eosinophils # (Auto) 0.21 K/uL Basophils # (Auto) 0.08 K/uL RDW Standard Deviation 51.7 fL RDW Coefficient of Variation 14.5 % Immature Granulocyte % (Auto) 0.2 % Immature Granulocyte # (Auto) 0.01 K/uL Platelet Estimate DECREASED Red Blood Cell Morphology Unremarkable Prothrombin Time 17.9 SECONDS Prothromb Time International Ratio 1.6 Sodium Level 142 mmol/L Potassium Level 3.5 mmol/L Chloride Level 110 mmol/L Carbon Dioxide Level 26 mmol/L Anion Gap 6.0 mmol/L Blood Urea Nitrogen 6 mg/dl Creatinine 0.74 mg/dl Est Creatinine Clear Calc Drug Dose 125.8 ml/min Estimated GFR () 131.9 Estimated GFR (Non- 113.8 BUN/Creatinine Ratio 7.5 Random Glucose 106 mg/dl Calcium Level 8.2 mg/dl Magnesium Level 1.7 mg/dl Total Bilirubin 4.2 mg/dl Direct Bilirubin 1.1 mg/dl Aspartate Amino Transf (AST/SGOT) 28 U/L Alanine Aminotransferase (ALT/SGPT) 19 U/L Alkaline Phosphatase 132 U/L Total Protein 6.0 gm/dl Albumin 2.2 gm/dl Impression Patient is a 40 year old male who presents with ruq pain (resolved) in the setting of known Etoh cirrhosis complicated by non-bleeding varices and diuretic controlled ascites. In regards to his elevated bilirubin-it is chronic in nature and from intrinsic liver dysfunction with total and indirect being elevated. He is a [facility] B/[facility] patient with a MELD 17 most recently making him moderate to high risk of cholecystectomy. The pain with intermittent characteristics and stones/sludge enters in possible GB dysfunction, but given pain free, no wbc count, not convinced has acute cholecystitis, but will leave to be determined to Dr. Chapman. Plan Follow labs and clinical course, but no signs of biliary obstruction, masses or tumors as suggested 1 yr f/u MRCP for pancreatic cyst F/U in GI clinic with Sandi Amin, but needs transplantation eval given has been abstinent for greater than 6 mo and has a MELD that is listable at 17 If needs Gallbladder removed, may need to be done at transplant center Advance diet as per General Surgery Continue on diuretics Low salt diet would be ultimate goal Continue on Nadolol Call with questions
[2016-08-11] MEDS: CIPROFLOXACIN / D5W 400 MG in PREMIXED IN D5W 200 ML IV SCH (11:54)
[2016-08-11 15:20] VITALS: BP 96/59; PULSE 80; TEMP 36.7; O2SAT 92
--- NOTE | 2016-08-11 16:45 | Surgery Progress Note ---
Surgery Progress Note Date of Service August 11, 2016. Subjective + feeling well pt feeling well... pain resolved. "hungry" Objective Vital Signs: Date Time Temp Pulse Resp B/P Pulse Ox O2 Delivery O2 Flow Rate FiO2 08/11/16 15:20 36.7 80 16 96/59 92 Room Air 08/11/16 08:11 36.9 70 16 100/64 97 Room Air 08/11/16 07:35 99 Room Air 08/11/16 00:15 Room Air 08/10/16 22:53 36.9 74 16 97/59 95 Room Air General Appearance: no apparent distress Head: normocephalic, atraumatic, + pertinent finding (+jaundiced) Neck: supple Respiratory/Chest: no respiratory distress, no accessory muscle use Abdomen: non tender, non distended, soft Laboratory Results: Results Past 24 Hours Test 08/11/16 05:40 Range/Units White Blood Count 6.32 4.8-10.8 K/uL Red Blood Count 3.12 4.7-6.1 M/uL Hemoglobin 10.1 14.0-18.0 g/dL Hematocrit 30.5 42-52 % Mean Corpuscular Volume 97.8 80-100 fL Mean Corpuscular Hemoglobin 32.4 25-34 pg Mean Corpuscular Hemoglobin Concent 33.1 32-36 g/dl Platelet Count 93 130-400 K/uL Mean Platelet Volume 10.2 7.4-10.4 fL Neutrophils (%) (Auto) 43.4 % Lymphocytes (%) (Auto) 31.2 % Monocytes (%) (Auto) 20.6 % Eosinophils (%) (Auto) 3.3 % Basophils (%) (Auto) 1.3 % Neutrophils # (Auto) 2.75 1.4-6.5 K/uL Lymphocytes # (Auto) 1.97 1.2-3.4 K/uL Monocytes # (Auto) 1.30 0.11-0.59 K/uL Eosinophils # (Auto) 0.21 0-0.5 K/uL Basophils # (Auto) 0.08 0-0.2 K/uL RDW Standard Deviation 51.7 36.4-46.3 fL RDW Coefficient of Variation 14.5 11.5-14.5 % Immature Granulocyte % (Auto) 0.2 % Immature Granulocyte # (Auto) 0.01 0.00-0.02 K/uL Platelet Estimate DECREASED Red Blood Cell Morphology Unremarkable Prothrombin Time 17.9 9.0-12.0 SECONDS Prothromb Time International Ratio 1.6 0.9-1.1 Sodium Level 142 136-145 mmol/L Potassium Level 3.5 3.5-5.1 mmol/L Chloride Level 110 98-107 mmol/L Carbon Dioxide Level 26 21-32 mmol/L Anion Gap 6.0 3-11 mmol/L Blood Urea Nitrogen 6 7-18 mg/dl Creatinine 0.74 0.60-1.40 mg/dl Est Creatinine Clear Calc Drug Dose 125.8 ml/min Estimated GFR () 131.9 Estimated GFR (Non- 113.8 BUN/Creatinine Ratio 7.5 10-20 Random Glucose 106 70-99 mg/dl Calcium Level 8.2 8.5-10.1 mg/dl Magnesium Level 1.7 1.8-2.4 mg/dl Total Bilirubin 4.2 0.2-1 mg/dl Direct Bilirubin 1.1 0-0.2 mg/dl Aspartate Amino Transf (AST/SGOT) 28 15-37 U/L Alanine Aminotransferase (ALT/SGPT) 19 12-78 U/L Alkaline Phosphatase 132 45-117 U/L Total Protein 6.0 6.4-8.2 gm/dl Albumin 2.2 3.4-5.0 gm/dl Assessment & Plan clinically doing better wbc normal. afebrile LFT"s slightly worsened. MRCP shows no evidence of cbd stone I do not believe pt has acute cholecystitis. per GI, he may be a transplant candidate. will hold on lap royal at this point. ok to advance diet and we'll see how he does.
[2016-08-11 23:53] VITALS: BP 92/52; PULSE 73; TEMP 36.7; O2SAT 98
[2016-08-12] MEDS: ACETAMINOPHEN 325 MG TAB PO PRN (00:24)
[2016-08-12 07:29] LABS: HEMATOCRIT 29.9 % (42-52); MEAN CELL VOLUME 99.3 fL (80-100); MEAN CORPUSCULAR HEMOGLOBIN 33.2 pg (25-34); MEAN CORPUSCULAR HGB CONC 33.4 g/dl (32-36); RED BLOOD COUNT 3.01 M/uL (4.7-6.1); WHITE BLOOD COUNT 4.45 K/uL (4.8-10.8)
[2016-08-12 07:41] LABS: INR 1.7 (0.9-1.1); PROTHROMBIN TIME (PATIENT) 18.1 SECONDS (9.0-12.0)
[2016-08-12 07:45] VITALS: BP 97/61; PULSE 66; TEMP 36.7; O2SAT 98
[2016-08-12 07:47] LABS: MEAN PLATELET VOLUME 10.3 fL (7.4-10.4); PLATELET COUNT 86 K/uL (130-400)
[2016-08-12] MEDS: MAGNESIUM OXIDE 400 MG TAB PO SCH (08:22)
[2016-08-12] MEDS: POTASSIUM CHLORIDE 10 MEQ TABCR PO SCH (08:22)
[2016-08-12] MEDS: PANTOprazole SOD 40 MG TAB PO SCH (08:24)
[2016-08-12 08:26] LABS: BASO % 1.3 %; BASO ABS # 0.06 K/uL (0-0.2); COMPLETE YES; EOS % 4.9 %; LYMPH % 28.5 %; LYMPH ABS # 1.27 K/uL (1.2-3.4); MONO % 18.7 %; NEUT % 46.6 %
[2016-08-12 08:34] LABS: BUN/CREATININE RATIO 7.8 (10-20); CREATININE 0.94 mg/dl (0.60-1.40); MAGNESIUM 1.8 mg/dl (1.8-2.4); POTASSIUM 3.8 mmol/L (3.5-5.1)
[2016-08-12] MEDS: NADOLOL 40 MG TAB PO SCH (08:54)
[2016-08-12] MEDS ORDERED: CIPRO 0.2%/HYDROCORTISONE 1% OTIC SUSP 10 ML BTL OT SCH (09:00)
--- NOTE | 2016-08-12 10:42 | Surgery Progress Note ---
Surgery Progress Note Date of Service August 12, 2016. Subjective pt feeling fine. tolerated diet last night. no pain. no nausea. Objective Vital Signs: Date Time Temp Pulse Resp B/P Pulse Ox O2 Delivery O2 Flow Rate FiO2 08/12/16 07:45 36.7 66 19 97/61 98 Room Air 08/12/16 00:10 Room Air 08/11/16 23:53 36.7 73 14 92/52 98 Room Air 08/11/16 17:15 Room Air 08/11/16 15:20 36.7 80 16 96/59 92 Room Air General Appearance: no apparent distress Head: normocephalic Neck: supple Respiratory/Chest: no respiratory distress, no accessory muscle use Abdomen: non tender, non distended, soft Extremities: normal inspection Laboratory Results: Results Past 24 Hours Test 08/12/16 06:40 Range/Units White Blood Count 4.45 4.8-10.8 K/uL Red Blood Count 3.01 4.7-6.1 M/uL Hemoglobin 10.0 14.0-18.0 g/dL Hematocrit 29.9 42-52 % Mean Corpuscular Volume 99.3 80-100 fL Mean Corpuscular Hemoglobin 33.2 25-34 pg Mean Corpuscular Hemoglobin Concent 33.4 32-36 g/dl Platelet Count 86 130-400 K/uL Mean Platelet Volume 10.3 7.4-10.4 fL Neutrophils (%) (Auto) 46.6 % Lymphocytes (%) (Auto) 28.5 % Monocytes (%) (Auto) 18.7 % Eosinophils (%) (Auto) 4.9 % Basophils (%) (Auto) 1.3 % Neutrophils # (Auto) 2.07 1.4-6.5 K/uL Lymphocytes # (Auto) 1.27 1.2-3.4 K/uL Monocytes # (Auto) 0.83 0.11-0.59 K/uL Eosinophils # (Auto) 0.22 0-0.5 K/uL Basophils # (Auto) 0.06 0-0.2 K/uL RDW Standard Deviation 52.6 36.4-46.3 fL RDW Coefficient of Variation 14.6 11.5-14.5 % Immature Granulocyte % (Auto) 0.0 % Immature Granulocyte # (Auto) 0.00 0.00-0.02 K/uL Red Blood Cell Morphology Unremarkable Prothrombin Time 18.1 9.0-12.0 SECONDS Prothromb Time International Ratio 1.7 0.9-1.1 Sodium Level 143 136-145 mmol/L Potassium Level 3.8 3.5-5.1 mmol/L Chloride Level 112 98-107 mmol/L Carbon Dioxide Level 23 21-32 mmol/L Anion Gap 8.0 3-11 mmol/L Blood Urea Nitrogen 7 7-18 mg/dl Creatinine 0.94 0.60-1.40 mg/dl Est Creatinine Clear Calc Drug Dose 99.0 ml/min Estimated GFR () 115.4 Estimated GFR (Non- 99.6 BUN/Creatinine Ratio 7.8 10-20 Random Glucose 112 70-99 mg/dl Calcium Level 8.0 8.5-10.1 mg/dl Magnesium Level 1.8 1.8-2.4 mg/dl Total Bilirubin 3.7 0.2-1 mg/dl Direct Bilirubin 1.2 0-0.2 mg/dl Aspartate Amino Transf (AST/SGOT) 65 15-37 U/L Alanine Aminotransferase (ALT/SGPT) 35 12-78 U/L Alkaline Phosphatase 138 45-117 U/L Total Protein 5.9 6.4-8.2 gm/dl Albumin 2.2 3.4-5.0 gm/dl Assessment & Plan 08/12/16 pt now asymptomatic I do not believe he has acute cholecystitis b/c of his MELD score and in light of considering putting him on transplant list , will not proceed with lap royal. LFT's improved ok from my standpoint for d/c has appnt with GI in about a week to discuss transplant 08/11/16 clinically doing better wbc normal. afebrile LFT"s slightly worsened. MRCP shows no evidence of cbd stone I do not believe pt has acute cholecystitis. per GI, he may be a transplant candidate. will hold on lap royal at this point. ok to advance diet and we'll see how he does. clinically doing better wbc normal. afebrile LFT"s slightly worsened. MRCP shows no evidence of cbd stone I do not believe pt has acute cholecystitis. per GI, he may be a transplant candidate. will hold on lap royal at this point. ok to advance diet and we'll see how he does.
--- NOTE | 2016-08-12 11:52 | Gastroenterology Progress Note ---
Progress Note Date of Service: August 12, 2016 Subjective Pt evaluation today including: conversation w/ patient, conversation w/ family , physical exam, chart review, lab review Pt was seen and evaluated this AM. He has no complaints. He has not had RUQ pain since admission. Denies fever, chills, chest pain, SOB, abdominal pain, black/bloody stools. Review of Systems Constitutional: No chills, No fever Respiratory: No cough, No shortness of breath, No sputum Cardiac: No chest pain, No edema Abdomen: No GI bleeding, No constipation, No diarrhea, No nausea, No pain, No vomiting Medications Current Inpatient Medications Medications (Trade) Dose Ordered Sig/Lisa Route Start Time Stop Time Status Last Admin Dose Admin Acetaminophen (Tylenol Tab) 650 mg Q4H PRN PO 08/10/16 05:15 09/09/16 05:14 08/12/16 00:24 650 MG Al Hydrox/Mg Hydrox/Simethicone (Maalox Max Susp) 15 ml Q4H PRN PO 08/10/16 05:15 09/09/16 05:14 Magnesium Hydroxide (Milk Of Magnesia Susp) 30 ml Q6H PRN PO 08/10/16 05:15 09/09/16 05:14 Ondansetron HCl (Zofran Inj) 4 mg Q6H PRN IV 08/10/16 05:15 09/09/16 05:14 Hydromorphone HCl (Dilaudid Inj) 0.5 mg Q3HWA PRN IV 08/10/16 05:15 08/24/16 05:14 08/10/16 11:10 0.5 MG Buspirone HCl (Buspar Tab) 5 mg BID PO 08/10/16 09:00 09/09/16 08:59 08/12/16 08:22 5 MG Folic Acid (Folvite Tab) 1 mg DAILY PO 08/10/16 09:00 09/09/16 08:59 08/12/16 08:23 1 MG Pantoprazole Sodium (Protonix Tab) 40 mg QAM PO 08/10/16 09:00 09/09/16 08:59 08/12/16 08:24 40 MG Potassium Chloride (Klor-Con M10) 10 meq DAILY PO 08/10/16 09:00 6/12/17 08:59 08/12/16 08:22 10 MEQ Lactulose (Chronulac Syrup) 10 gm BID PRN PO 08/10/16 05:15 09/09/16 05:14 Nadolol (Corgard Tab) 10 mg BID PO 08/10/16 09:00 09/09/16 08:59 08/12/16 08:54 10 MG Magnesium Oxide (Mag-Ox Tab) 400 mg BID PO 08/10/16 09:00 09/09/16 08:59 08/12/16 08:22 400 MG Ciprofloxacin/ Hydrocortisone (Cipro Hc Otic Susp) 3 drops BID OT 08/12/16 09:00 09/11/16 08:59 08/12/16 08:56 3 DROPS Objective Vital Signs Date Time Temp Pulse Resp B/P Pulse Ox O2 Delivery O2 Flow Rate FiO2 08/12/16 08:20 Room Air 08/12/16 07:45 36.7 66 19 97/61 98 Room Air 08/12/16 00:10 Room Air 08/11/16 23:53 36.7 73 14 92/52 98 Room Air 08/11/16 17:15 Room Air 08/11/16 15:20 36.7 80 16 96/59 92 Room Air Physical Exam General Appearance: no apparent distress (family is at bedside) Eyes: PERRL ENT: hearing grossly normal Neck: supple Respiratory/Chest: normal breath sounds, no accessory muscle use Cardiovascular: regular rate, rhythm, no murmur Abdomen: normal bowel sounds, non tender, soft, no organomegaly, no pulsatile mass Neurologic/Psych: alert, normal mood/affect, oriented x 3 Skin: no rash, + jaundice Laboratory Results Last 24 Hours Test 08/12/16 06:40 White Blood Count 4.45 K/uL Red Blood Count 3.01 M/uL Hemoglobin 10.0 g/dL Hematocrit 29.9 % Mean Corpuscular Volume 99.3 fL Mean Corpuscular Hemoglobin 33.2 pg Mean Corpuscular Hemoglobin Concent 33.4 g/dl Platelet Count 86 K/uL Mean Platelet Volume 10.3 fL Neutrophils (%) (Auto) 46.6 % Lymphocytes (%) (Auto) 28.5 % Monocytes (%) (Auto) 18.7 % Eosinophils (%) (Auto) 4.9 % Basophils (%) (Auto) 1.3 % Neutrophils # (Auto) 2.07 K/uL Lymphocytes # (Auto) 1.27 K/uL Monocytes # (Auto) 0.83 K/uL Eosinophils # (Auto) 0.22 K/uL Basophils # (Auto) 0.06 K/uL RDW Standard Deviation 52.6 fL RDW Coefficient of Variation 14.6 % Immature Granulocyte % (Auto) 0.0 % Immature Granulocyte # (Auto) 0.00 K/uL Red Blood Cell Morphology Unremarkable Prothrombin Time 18.1 SECONDS Prothromb Time International Ratio 1.7 Sodium Level 143 mmol/L Potassium Level 3.8 mmol/L Chloride Level 112 mmol/L Carbon Dioxide Level 23 mmol/L Anion Gap 8.0 mmol/L Blood Urea Nitrogen 7 mg/dl Creatinine 0.94 mg/dl Est Creatinine Clear Calc Drug Dose 99.0 ml/min Estimated GFR () 115.4 Estimated GFR (Non- 99.6 BUN/Creatinine Ratio 7.8 Random Glucose 112 mg/dl Calcium Level 8.0 mg/dl Magnesium Level 1.8 mg/dl Total Bilirubin 3.7 mg/dl Direct Bilirubin 1.2 mg/dl Aspartate Amino Transf (AST/SGOT) 65 U/L Alanine Aminotransferase (ALT/SGPT) 35 U/L Alkaline Phosphatase 138 U/L Total Protein 5.9 gm/dl Albumin 2.2 gm/dl Assessment and Plan Patient is a 40 year old male who presents with ruq pain (resolved) in the setting of known Etoh cirrhosis complicated by non-bleeding varices and diuretic controlled ascites. In regards to his elevated bilirubin-it is chronic in nature and from intrinsic liver dysfunction with total and indirect being elevated. He is a [facility] B/C patient with a MELD 17 most recently making him moderate to high risk of cholecystectomy. The pain with intermittent characteristics and stones/sludge enters in possible GB dysfunction, but given pain free, no wbc count, not convinced has acute cholecystitis, but will leave to be determined to Dr. Chpaman. Plan Follow labs and clinical course, but no signs of biliary obstruction, masses or tumors as suggested 1 yr f/u MRCP for pancreatic cyst F/U in GI clinic with Sandi Amin, but needs transplantation eval given has been abstinent for greater than 6 mo and has a MELD that is listable at 17 If needs Gallbladder removed, may need to be done at transplant center Advance diet as per General Surgery Continue on diuretics Low salt diet would be ultimate goal Continue on Nadolol GI to sign off. Please call with any questions attg addendum: I interviewed and examined pt, reviewed chart and labs. Pt is without complaint, abd is benign, plan as above.
[2016-08-12 14:53] VITALS: BP 97/59; PULSE 68; TEMP 36.6; O2SAT 97
--- NOTE | 2016-08-12 19:09 | DIAGNOSTIC IMAGING REPORT ---
ULTRASOUND LEFT LOWER EXTREMITY VENOUS CLINICAL HISTORY: Left leg swelling. COMPARISON STUDY: No priors. TECHNIQUE: Real-time, grayscale, and color Doppler sonography of the deep veins of the left lower extremity was performed from the inguinal crease to the calf. Compression and augmentation were utilized. FINDINGS: There is no sonographic evidence of deep venous thrombosis identified in the left lower extremity. The common femoral, superficial femoral, and popliteal veins are patent and normally compressible. The greater saphenous vein and the profunda femoris vein at the junction with the common femoral vein are clear. The visualized calf veins are patent. Prominent benign-appearing left inguinal lymph nodes are incidentally noted. IMPRESSION: There is no sonographic evidence of deep venous thrombosis identified in the left lower extremity. Electronically signed by: Darrin Tran M.D. 08/12/2016 7:08 PM Dictated Date/Time: 08/12/2016 7:08 PM
--- NOTE | 2016-08-12 19:56 | Progress Note ---
Medicine Progress Note Date & Time of Visit: August 12, 2016 at 19:47. Subjective patient seen resting in bed, comfortable eating dinner states he feels fine overall denies abdominal pain ,nausea, fever/chills no dizziness, chest pain, palpitations states he is ready and would like to be discharged today Objective Last 8 Hrs Date Time Temp Pulse Resp B/P Pulse Ox O2 Delivery O2 Flow Rate FiO2 08/12/16 14:53 36.6 68 18 97/59 97 Room Air Physical Exam: General-oriented x 3, not in distress, speaks in sentences Eyes- mild icterus Neck- no JVD, Lungs- clear breath sounds bilaterally, no rales/wheezes Heart- normal rate, regular rhythm; no murmurs Abdomen- normal bowel sounds, soft, non distended, no Curry's sign, no tenderness Extremities- no pretibial edema, no calf tenderness; peripheral pulses intact Neuro- alert, oriented x 3; no gross deficits Skin- warm & dry Laboratory Results: Last 24 Hours Test 08/12/16 06:40 White Blood Count 4.45 K/uL Red Blood Count 3.01 M/uL Hemoglobin 10.0 g/dL Hematocrit 29.9 % Mean Corpuscular Volume 99.3 fL Mean Corpuscular Hemoglobin 33.2 pg Mean Corpuscular Hemoglobin Concent 33.4 g/dl Platelet Count 86 K/uL Mean Platelet Volume 10.3 fL Neutrophils (%) (Auto) 46.6 % Lymphocytes (%) (Auto) 28.5 % Monocytes (%) (Auto) 18.7 % Eosinophils (%) (Auto) 4.9 % Basophils (%) (Auto) 1.3 % Neutrophils # (Auto) 2.07 K/uL Lymphocytes # (Auto) 1.27 K/uL Monocytes # (Auto) 0.83 K/uL Eosinophils # (Auto) 0.22 K/uL Basophils # (Auto) 0.06 K/uL RDW Standard Deviation 52.6 fL RDW Coefficient of Variation 14.6 % Immature Granulocyte % (Auto) 0.0 % Immature Granulocyte # (Auto) 0.00 K/uL Red Blood Cell Morphology Unremarkable Prothrombin Time 18.1 SECONDS Prothromb Time International Ratio 1.7 Sodium Level 143 mmol/L Potassium Level 3.8 mmol/L Chloride Level 112 mmol/L Carbon Dioxide Level 23 mmol/L Anion Gap 8.0 mmol/L Blood Urea Nitrogen 7 mg/dl Creatinine 0.94 mg/dl Est Creatinine Clear Calc Drug Dose 99.0 ml/min Estimated GFR () 115.4 Estimated GFR (Non- 99.6 BUN/Creatinine Ratio 7.8 Random Glucose 112 mg/dl Calcium Level 8.0 mg/dl Magnesium Level 1.8 mg/dl Total Bilirubin 3.7 mg/dl Direct Bilirubin 1.2 mg/dl Aspartate Amino Transf (AST/SGOT) 65 U/L Alanine Aminotransferase (ALT/SGPT) 35 U/L Alkaline Phosphatase 138 U/L Total Protein 5.9 gm/dl Albumin 2.2 gm/dl Assessment & Plan ASSESSMENT AND PLAN: This is a 40-year-old male with history of Alcoholic Liver Cirrhosis who presents with right upper quadrant pain. RUQ PAIN, CHOLELITHIASIS - MRCP: 1. Multiple slightly hypointense lobular structures seen within the gallbladder neck and cystic duct ranging between 3 mm and 16 mm in size. These favor sludge or stones. There is mild gallbladder wall thickening given the gallbladder distention. There is also trace pericholecystic fluid. Therefore, these findings raise the possibility of acute cholecystitis. Clinical correlation recommended. 2. There is also trace perihepatic and perisplenic ascites. 3. Common bile duct is mildly distended for age measuring up to 7 mm. There are no filling defects seen within the common bile duct. 4. The main pancreatic duct is normal in course and caliber. 5. A 5 mm indeterminate cystic structure within the pancreatic head. This favors a small cystic neoplasm. One year MRCP follow-up can be performed to ensure stability. 6. Splenomegaly. - remains afebrile, no leukocytosis no signs of sepsis - given 2 days of Cipro and Metro IV, IV fluids - symptoms resolved - evaluated by Gen Surg Dr. Chapman: patient felt not to have acute cholecystitis no intervention recommended - evaluated by GI SVC: LFT elevation felt to be chronic from Cirrhosis recommend outpatient liver transplant eval ff up with GI scheduled for this Friday08/16/16 MILD THROMBOCYTOPENIA, ELEVATION OF INR likely from underlying Cirrhosis - no signs of bleeding monitor as outpatient HYPOMAGNESEMIA resolved PANCREATIC CYST - seen on MRCP "A 5 mm indeterminate cystic structure within the pancreatic head. This favors a small cystic neoplasm. One year MRCP follow-up can be performed to ensure stability." - monitor as outpatient History of alcohol liver cirrhosis. - - continue Lasix and spironolactone - Continue lactulose and nadolol. Deep venous thrombosis prophylaxis. SCDs and TEDs Disposition: dc home ff up with PCP in 1 week ff up with GI this week Current Inpatient Medications: Current Inpatient Medications Medications (Trade) Dose Ordered Sig/Lisa Route Start Time Stop Time Status Last Admin Dose Admin Acetaminophen (Tylenol Tab) 650 mg Q4H PRN PO 08/10/16 05:15 09/09/16 05:14 08/12/16 00:24 650 MG Al Hydrox/Mg Hydrox/Simethicone (Maalox Max Susp) 15 ml Q4H PRN PO 08/10/16 05:15 09/09/16 05:14 Magnesium Hydroxide (Milk Of Magnesia Susp) 30 ml Q6H PRN PO 08/10/16 05:15 09/09/16 05:14 Ondansetron HCl (Zofran Inj) 4 mg Q6H PRN IV 08/10/16 05:15 09/09/16 05:14 Hydromorphone HCl (Dilaudid Inj) 0.5 mg Q3HWA PRN IV 08/10/16 05:15 08/24/16 05:14 08/10/16 11:10 0.5 MG Buspirone HCl (Buspar Tab) 5 mg BID PO 08/10/16 09:00 09/09/16 08:59 08/12/16 08:22 5 MG Folic Acid (Folvite Tab) 1 mg DAILY PO 08/10/16 09:00 09/09/16 08:59 08/12/16 08:23 1 MG Pantoprazole Sodium (Protonix Tab) 40 mg QAM PO 08/10/16 09:00 09/09/16 08:59 08/12/16 08:24 40 MG Potassium Chloride (Klor-Con M10) 10 meq DAILY PO 08/10/16 09:00 09/09/16 08:59 08/12/16 08:22 10 MEQ Lactulose (Chronulac Syrup) 10 gm BID PRN PO 08/10/16 05:15 09/09/16 05:14 Nadolol (Corgard Tab) 10 mg BID PO 08/10/16 09:00 09/09/16 08:59 08/12/16 08:54 10 MG Magnesium Oxide (Mag-Ox Tab) 400 mg BID PO 08/10/16 09:00 09/09/16 08:59 08/12/16 08:22 400 MG Ciprofloxacin/ Hydrocortisone (Cipro Hc Otic Susp) 3 drops BID OT 08/12/16 09:00 09/11/16 08:59 08/12/16 08:56 3 DROPS
[2016-08-12] MEDS ORDERED: NADO20TA PO (20:00)
[2016-08-12] MEDS ORDERED: MGNO400 PO (20:00)
[2016-08-12] MEDS ORDERED: CPROT OT (20:00)
--- NOTE | 2016-08-12 20:05 | Discharge Instructions ---
Discharge Instructions Date of Service August 12, 2016. Admission Reason for Admission: Gall Bladder Disease Discharge Discharge Diagnosis / Problem: ABDOMINAL PAIN Discharge Goals Goal(s): Diagnostic testing, Therapeutic intervention Activity Recommendations Activity Limitations: resume your previous activity (GRADUALLY) Lifting Limitations: until after follow-up appointment Exercise/Sports Limitations: until after follow-up appointment . Instructions / Follow-Up Instructions / Follow-Up PLEASE REVIEW YOUR NEW MEDICATION LIST AND FOLLOW INSTRUCTIONS CAREFULLY. CALL PRIMARY CARE PHYSICIAN OR RETURN TO ER IMMEDIATELY IF WITH RECURRENCE OF SYMPTOMS, INCREASING ABDOMINAL PAIN, NAUSEA/VOMITING, FEVER/CHILLS, INCREASING YELLOWING OF SKIN. FOLLOW UP WITH PRIMARY CARE PHYSICIAN IN 1 WEEK. FOLLOW UP WITH GASTROENTEROLOGY CLINIC THIS TUESDAY AUGUST 16, 2016 SCHEDULED. Current Hospital Diet Patient's current hospital diet: Low Sodium Diet (2gm Na) Discharge Diet Recommended Diet: Low Sodium Diet (2gm Na) Procedures Procedures Performed: MRCP Pending Studies Studies pending at discharge: yes List of pending studies: BLOOD WORK C/O MATERIAL CLERK ON FOLLOW UP ; REPEAT MRCP IN 1 YEAR TO MONITOR PANCREATIC CYST Medical Emergencies . Who to Call and When: Medical Emergencies: If at any time you feel your situation is an emergency, please call 911 immediately. . Non-Emergent Contact Non-Emergency issues call your: Primary Care Provider Call Non-Emergent contact if: you have a fever, your pain is not controlled, your pain is worsening, you have any medication questions . . "Provider Documentation" section prepared by Milton Montero. . VTE Core Measure Inpt VTE Proph given/why not?: SCD's
[2016-08-12 20:09] VITALS: BP 97/59; PULSE 68; TEMP 36.6; O2SAT 97
--- NOTE | 2016-08-12 20:10 | Discharge Summary ---
Discharge Summary Date of Service August 12, 2016. Discharge Summary Admission Date: August 10, 2016 at 05:14 Discharge Date: August 12, 2016 Discharge Disposition: Home Principal Diagnosis: RIGHT UPPER QUADRANT PAIN, CHOLELITHIASIS Secondary Diagnoses/Problems: Please refer to hospital course below Procedures: MRCP HISTORY: Abnormal ultrasound. Right upper quadrant abdominal pain. TECHNIQUE: MRCP of the abdomen was performed without intravenous contrast according to standard department protocol. COMPARISON STUDY: Abdominal ultrasound 08/10/2016. FINDINGS: Trace bilateral pleural effusions. Small amount of perihepatic and paraspinal ascites. The spleen is enlarged measuring 14 centers in length. No hepatic or splenic masses. The kidneys and adrenal glands are unremarkable. Gallbladder is mildly distended. There is mild wall thickening measuring up to 3.5 mm given the gallbladder distention. There is trace pericholecystic fluid. Slightly hypointense lobular structures seen within the neck of the gallbladder and within the cystic duct which correspond to the ultrasound abnormality. These range between 3 and 16 mm in size. The main pancreatic duct is normal in course and caliber. The common bile duct measures up to 7 mm in diameter. No filling defects within the common bile duct. A 5 m cystic focus within the pancreatic head. There are few prominent gastrohepatic lymph nodes. IMPRESSION: 1. Multiple slightly hypointense lobular structures seen within the gallbladder neck and cystic duct ranging between 3 mm and 16 mm in size. These favor sludge or stones. There is mild gallbladder wall thickening given the gallbladder distention. There is also trace pericholecystic fluid. Therefore, these findings raise the possibility of acute cholecystitis. Clinical correlation recommended. 2. There is also trace perihepatic and perisplenic ascites. 3. Common bile duct is mildly distended for age measuring up to 7 mm. There are no filling defects seen within the common bile duct. 4. The main pancreatic duct is normal in course and caliber. 5. A 5 mm indeterminate cystic structure within the pancreatic head. This favors a small cystic neoplasm. One year MRCP follow-up can be performed to ensure stability. 6. Splenomegaly. Consultations: Gastroenterology Dr. Bond; General Surgery Dr. Chapman Pending Studies/Follow-Up: Please refer to hospital course below. Medication Reconciliation New Medications: Ciprofloxacin/Hydrocortisone (Cipro Hc 0.2-1 %) 150 Drops/10 Ml Susp 3 DROPS OT BID for 5 Days Magnesium Oxide (Magnesium-Oxide) 400 Mg Tab 400 MG PO BID for 7 Days, #14 TAB 1 Refill Changed Medications: Nadolol (Corgard) 20 Mg Tab 10 MG PO DAILY, #30 TAB (Changed from: BID) Continued Medications: Buspirone Hcl (Buspar) 15 Mg Tab 5 MG PO BID, TAB Folic Acid (Folvite) 1 Mg Tab 1 MG PO DAILY, TAB Furosemide (Lasix) 20 Mg Tab 20 MG PO DAILY Lactulose (Chronulac) 10 Gm/15 Ml Syrp 15 ML PO BID PRN for Constipation for 10 Days Omeprazole (Prilosec) 20 Mg Capcr 20 MG PO DAILY, CAP Potassium Chloride (K-Tabs) 10 Meq Tabcr 10 MEQ PO DAILY Probiotic Product (Probiotic) 1 Cap Cap 1 DOSE PO DAILY 10 [employer] Spironolactone (Aldactone) 25 Mg Tab 25 MG PO DAILY, TAB Admission Information HPI (per Admitting provider): CHIEF COMPLAINT: Right upper quadrant abdominal pain. HISTORY OF PRESENT ILLNESS: This 40-year-old male with past medical history significant for alcohol liver cirrhosis, last alcohol was December 2015; history of thrombocytopenia, anemia, hyponatremia, history of elevated LFTs presents with right upper quadrant abdominal pain. The patient says yesterday after eating had severe right upper quadrant abdominal pain and 8/10 in severity, radiating to his lower abdomen and back, associated with some nausea. Denies any fevers, chills, no diarrhea, no blood in urine or no blood in the stools. No chest pain, no shortness of breath, no cough, no fever, no chills, no blurred vision. No headaches, no dizziness. Currently, pain is better controlled with pain medication. Resting comfortably and hemodynamically stable. Physical Exam (per Admitting): GENERAL: The patient is of moderate build, not in distress. VITAL SIGNS: Temperature 36.7, pulse 71, respiratory rate 15, blood pressure 111/72, oxygen 95% on room air. HEENT: No pallor or icterus present. NECK: No JVD, no neck masses, no carotid bruits. CARDIOVASCULAR: S1, S2 heard, regular rate and rhythm, no murmur, no gallop. RESPIRATORY SYSTEM: Clear to auscultation bilaterally. No wheezing, no crackles. ABDOMEN: Soft, bowel sounds present. Right upper quadrant tenderness present, no guarding, no rigidity, no distention. CENTRAL NERVOUS SYSTEM: Cranial nerves II through XII grossly intact. Nonfocal. EXTREMITIES: No edema, no erythema. Hospital Course ASSESSMENT AND PLAN: This is a 40-year-old male with history of Alcoholic Liver Cirrhosis who presents with right upper quadrant pain. RUQ PAIN, CHOLELITHIASIS - MRCP: 1. Multiple slightly hypointense lobular structures seen within the gallbladder neck and cystic duct ranging between 3 mm and 16 mm in size. These favor sludge or stones. There is mild gallbladder wall thickening given the gallbladder distention. There is also trace pericholecystic fluid. Therefore, these findings raise the possibility of acute cholecystitis. Clinical correlation recommended. 2. There is also trace perihepatic and perisplenic ascites. 3. Common bile duct is mildly distended for age measuring up to 7 mm. There are no filling defects seen within the common bile duct. 4. The main pancreatic duct is normal in course and caliber. 5. A 5 mm indeterminate cystic structure within the pancreatic head. This favors a small cystic neoplasm. One year MRCP follow-up can be performed to ensure stability. 6. Splenomegaly. - remained afebrile, no leukocytosis no signs of sepsis - given 2 days of Cipro and Metro IV, IV fluids - symptoms resolved - evaluated by Gen Surg Dr. Chapman: patient felt NOT to have acute cholecystitis no intervention recommended - evaluated by GI SVC Dr. Bond: LFT elevation felt to be chronic from Cirrhosis no further inpatient intervention recommend outpatient liver transplant eval ff up with GI scheduled for this Friday08/16/16 MILD THROMBOCYTOPENIA, ELEVATION OF INR likely from underlying Cirrhosis - no signs of bleeding monitor as outpatient HYPOMAGNESEMIA resolved PANCREATIC CYST - seen on MRCP "A 5 mm indeterminate cystic structure within the pancreatic head. This favors a small cystic neoplasm. One year MRCP follow-up can be performed to ensure stability." - monitor as outpatient History of alcohol liver cirrhosis. - - continue Lasix and spironolactone - Continue lactulose and nadolol. Disposition: dc home ff up with PCP in 1 week ff up with GI this week Total time spent on discharge = 35 minutes This includes examination of the patient, discharge planning, medication reconciliation, and communication with other providers. Discharge Instructions Discharge Instructions Date of Service August 12, 2016. Admission Reason for Admission: Gall Bladder Disease Discharge Discharge Diagnosis / Problem: ABDOMINAL PAIN Discharge Goals Goal(s): Diagnostic testing, Therapeutic intervention Activity Recommendations Activity Limitations: resume your previous activity (GRADUALLY) Lifting Limitations: until after follow-up appointment Exercise/Sports Limitations: until after follow-up appointment . Instructions / Follow-Up Instructions / Follow-Up PLEASE REVIEW YOUR NEW MEDICATION LIST AND FOLLOW INSTRUCTIONS CAREFULLY. CALL PRIMARY CARE PHYSICIAN OR RETURN TO ER IMMEDIATELY IF WITH RECURRENCE OF SYMPTOMS, INCREASING ABDOMINAL PAIN, NAUSEA/VOMITING, FEVER/CHILLS, INCREASING YELLOWING OF SKIN. FOLLOW UP WITH PRIMARY CARE PHYSICIAN IN 1 WEEK. FOLLOW UP WITH GASTROENTEROLOGY CLINIC THIS TUESDAY AUGUST 16, 2016 SCHEDULED. Current Hospital Diet Patient's current hospital diet: Low Sodium Diet (2gm Na) Discharge Diet Recommended Diet: Low Sodium Diet (2gm Na) Procedures Procedures Performed: MRCP Pending Studies Studies pending at discharge: yes List of pending studies: BLOOD WORK C/O MARKET SURVEY REPRESENTATIVE ON FOLLOW UP ; REPEAT MRCP IN 1 YEAR TO MONITOR PANCREATIC CYST Medical Emergencies . Who to Call and When: Medical Emergencies: If at any time you feel your situation is an emergency, please call 911 immediately. . Non-Emergent Contact Non-Emergency issues call your: Primary Care Provider Call Non-Emergent contact if: you have a fever, your pain is not controlled, your pain is worsening, you have any medication questions . . "Provider Documentation" section prepared by Milton Montero. . VTE Core Measure Inpt VTE Proph given/why not?: SCD's
[2016-08-14 13:23] LABS: AFP TUMOR MARKER SERUM 5.4 NG/ML (<6.1)
== END 2016-08-12 20:30 | disposition home or self-care (01) | DRG 445 ==
LOC: ENRESERVDT → ENRESERVTM → C.EDB 01:46 → C.MSW 05:14
PROVIDERS: ADMIT Internal Medicine; ATTEND Internal Medicine
DX: K80.20 Calculus of gallbladder without cholecystitis without obstruction (principal); K86.2 Cyst of pancreas; I85.10 Secondary esophageal varices without bleeding; K70.31 Alcoholic cirrhosis of liver with ascites; D69.59 Other secondary thrombocytopenia; R79.1 Abnormal coagulation profile; E83.42 Hypomagnesemia; H66.91 Otitis media, unspecified, right ear; H72.91 Unspecified perforation of tympanic membrane, right ear; Z87.898 Personal history of other specified conditions; Z79.899 Other long term (current) drug therapy

== ENCOUNTER 2016-08-13 01:06 | Inpatient (IN) | payer OTHER ==
[~2016-08-13] VITALS: Ht 172.7 cm; Wt 77.8 kg
[~2016-08-13 01:06] MED LIST changes: +CPROT OT; +LACT10SO17 PO; +MGNO400 PO
[2016-08-13] MEDS ORDERED: SODIUM CHLORIDE 0.9% 1000ML 1,000 ML IV STA (01:20)
[2016-08-13] MEDS ORDERED: SODIUM CHLORIDE 0.9% 250ML 250 ML IV STA (01:20)
[2016-08-13 01:43] LABS: HEMATOCRIT 31.8 % (42-52); MEAN CELL VOLUME 98.5 fL (80-100); MEAN CORPUSCULAR HEMOGLOBIN 32.8 pg (25-34); MEAN CORPUSCULAR HGB CONC 33.3 g/dl (32-36); PLATELET COUNT 101 K/uL (130-400); RED BLOOD COUNT 3.23 M/uL (4.7-6.1)
[2016-08-13] MEDS: ONDANSETRON INJ 2 MG/ML 2 ML VIAL IV STA ×2 (01:43→02:09)
[2016-08-13] MEDS: MoRPHine SULFATE 4 MG/ML 1 ML CARP\\VIAL IV STA ×2 (01:43→02:09)
[2016-08-13 01:51] LABS: INR 1.7 (0.9-1.1); PARTIAL THROMBOPLASTIN RATIO 1.3; PROTHROMBIN TIME (PATIENT) 18.3 SECONDS (9.0-12.0)
[2016-08-13 02:05] LABS: ALT/SGPT 52 U/L (12-78); AST/SGOT 98 U/L (15-37); BLOOD UREA NITROGEN 8 mg/dl (7-18); BUN/CREATININE RATIO 8.7 (10-20); CALCIUM 8.5 mg/dl (8.5-10.1); CARBON DIOXIDE 26 mmol/L (21-32); CHLORIDE 109 mmol/L (98-107); CREATININE 0.92 mg/dl (0.60-1.40); GLUCOSE 95 mg/dl (70-99); MAGNESIUM 1.7 mg/dl (1.8-2.4); SODIUM 142 mmol/L (136-145)
[2016-08-13 02:07] LABS: ALKALINE PHOSPHATASE 194 U/L (45-117)
[2016-08-13 02:34] LABS: BASO % 0.9 %; BASO ABS # 0.08 K/uL (0-0.2); COMPLETE YES; EOS % 3.9 %; IG% 0.2 %; LYMPH % 15.6 %; LYMPH ABS # 1.45 K/uL (1.2-3.4); MONO % 13.7 %; NEUT % 65.7 %
[2016-08-13] MEDS ORDERED: MoRPHine SULFATE 4 MG/ML 1 ML CARP\\VIAL IV STA (03:25)
--- NOTE | 2016-08-13 03:53 | EMERGENCY ROOM VISIT NOTE ---
History First contact with patient: 01:11 Chief Complaint: CHEST PAIN Stated Complaint: CHEST,BACK,STOMACH PAIN Nursing Triage Summary: LEFT ABDOMINAL PAIN, LIVER PAIN History of Present Illness The patient is a 40 year old male who presents to the Emergency Room with complaints of severe right upper quadrant pain described as aching, ranging in severity 6 out of 10. Patient was just discharged from the hospital for biliary colic. The pain returned today and is advised to return to the ER. Patient had baked fish for dinner. No fatty foods. Patient denies chest pain, dyspnea, fever, chills, vomiting, diarrhea, back pain, urinary symptoms. Patient has a history of cirrhosis from alcohol. No recent alcohol. Review of Systems See HPI for pertinent positives & negatives. A total of 10 systems reviewed and were otherwise negative. Past Medical/Surgical History Medical Problems: (1) Alcoholic cirrhosis (2) Gall bladder disease Family History No pertinent family history Social History Smoking Status: Never Smoker Alcohol Use: other Drug Use: none Marital Status: single Occupation Status: unemployed Current/Historical Medications Scheduled Buspirone Hcl (Buspar), 5 MG PO BID Ciprofloxacin/Hydrocortisone (Cipro Hc 0.2-1 %), 3 DROPS OT BID Folic Acid (Folvite), 1 MG PO DAILY Furosemide (Lasix), 20 MG PO DAILY Magnesium Oxide (Magnesium-Oxide), 400 MG PO BID Nadolol (Corgard), 10 MG PO DAILY Omeprazole (Prilosec), 20 MG PO DAILY Potassium Chloride (K-Tabs), 10 MEQ PO DAILY Probiotic Product (Probiotic), 1 DOSE PO DAILY Spironolactone (Aldactone), 25 MG PO DAILY Scheduled PRN Lactulose (Chronulac), 15 ML PO BID PRN for Constipation Allergies Coded Allergies: Aspirin (Verified Allergy, Unknown, THINS BLOOD, 08/13/16) Physical Exam Vital Signs Date Time Temp Pulse Resp B/P Pulse Ox O2 Delivery O2 Flow Rate FiO2 08/13/16 01:22 79 08/13/16 01:19 36.9 79 20 114/64 99 Room Air 08/13/16 01:15 99 Room Air Physical Exam VITALS: Vitals are noted on the nurse's note and reviewed by myself. Vital signs stable. GENERAL: Pleasant male in obvious pain, nondiaphoretic, well-developed well- nourished. SKIN: The skin was without rashes, erythema, edema, or bruising. There is no tenting of the skin. Capillary reflex less than 2 seconds. HEAD: Normocephalic atraumatic. EARS: External auditory canals clear, tympanic membranes pearly sheikh without erythema or effusion bilaterally. EYES: Pupils equal round and reactive to light and accommodation. Conjunctivae without injection, sclerae with icterus. Extraocular movements intact. NOSE: Patent, turbinates without inflammation or discharge. MOUTH: Mucous membranes moist. Pharynx without erythema or exudate. Uvula midline. Airway patent. Tongue does not deviate. NECK: Supple without nuchal rigidity. No lymphadenopathy. No thyromegaly. Cervical spine is nontender. No JVD. HEART: Regular rate and rhythm LUNGS: Clear to auscultation bilaterally without wheezes, rales or rhonchi. No dullness to percussion. No retractions or accessory muscle use. ABDOMEN: Positive bowel sounds x 4. Normal tympanic percussion. Soft, tender to palpation right upper quadrant, without masses or organomegaly. Curry sign negative. No guarding or rebound tenderness. No CVA tenderness MUSCULOSKELETAL: No muscle atrophy, erythema, noted. Left calf is slightly more edematous than right With +1 pitting edema bilaterally. NEURO: Patient was alert and oriented to person place and time. Normal sensation to light and sharp touch. No focal neurological deficits. Medical Decision & Procedures Laboratory Results 08/13/16 01:30 Red Blood Count 3.23, Mean Corpuscular Volume 98.5, Mean Corpuscular Hemoglobin 32.8, Mean Corpuscular Hemoglobin Concent 33.3, Mean Platelet Volume 10.0, Neutrophils (%) (Auto) 65.7, Lymphocytes (%) (Auto) 15.6, Monocytes (%) (Auto) 13.7, Eosinophils (%) (Auto) 3.9, Basophils (%) (Auto) 0.9, Neutrophils # (Auto ) 6.12, Lymphocytes # (Auto) 1.45, Monocytes # (Auto) 1.27, Eosinophils # (Auto ) 0.36, Basophils # (Auto) 0.08 08/13/16 01:30 Test 08/13/16 01:30 White Blood Count 9.30 K/uL (4.8-10.8) Red Blood Count 3.23 M/uL (4.7-6.1) Hemoglobin 10.6 g/dL (14.0-18.0) Hematocrit 31.8 % (42-52) Mean Corpuscular Volume 98.5 fL (80-100) Mean Corpuscular Hemoglobin 32.8 pg (25-34) Mean Corpuscular Hemoglobin Concent 33.3 g/dl (32-36) Platelet Count 101 K/uL (130-400) Mean Platelet Volume 10.0 fL (7.4-10.4) Neutrophils (%) (Auto) 65.7 % Lymphocytes (%) (Auto) 15.6 % Monocytes (%) (Auto) 13.7 % Eosinophils (%) (Auto) 3.9 % Basophils (%) (Auto) 0.9 % Neutrophils # (Auto) 6.12 K/uL (1.4-6.5) Lymphocytes # (Auto) 1.45 K/uL (1.2-3.4) Monocytes # (Auto) 1.27 K/uL (0.11-0.59) Eosinophils # (Auto) 0.36 K/uL (0-0.5) Basophils # (Auto) 0.08 K/uL (0-0.2) RDW Standard Deviation 52.1 fL (36.4-46.3) RDW Coefficient of Variation 14.5 % (11.5-14.5) Immature Granulocyte % (Auto) 0.2 % Immature Granulocyte # (Auto) 0.02 K/uL (0.00-0.02) Prothrombin Time 18.3 SECONDS (9.0-12.0) Prothromb Time International Ratio 1.7 (0.9-1.1) Activated Partial Thromboplast Time 35.0 SECONDS (21.0-31.0) Partial Thromboplastin Ratio 1.3 Anion Gap 7.0 mmol/L (3-11) Est Creatinine Clear Calc Drug Dose 101.2 ml/min Estimated GFR () 118.5 Estimated GFR (Non- 102.2 BUN/Creatinine Ratio 8.7 (10-20) Calcium Level 8.5 mg/dl (8.5-10.1) Magnesium Level 1.7 mg/dl (1.8-2.4) Total Bilirubin 4.1 mg/dl (0.2-1) Direct Bilirubin 2.0 mg/dl (0-0.2) Aspartate Amino Transf (AST/SGOT) 98 U/L (15-37) Alanine Aminotransferase (ALT/SGPT) 52 U/L (12-78) Alkaline Phosphatase 194 U/L (45-117) Troponin I < 0.015 ng/ml (0-0.045) Total Protein 6.9 gm/dl (6.4-8.2) Albumin 2.6 gm/dl (3.4-5.0) Lipase 388 U/L (73-393) Medications Administered Medications (Trade) Dose Ordered Sig/Lisa Route Start Time Stop Time Status Last Admin Dose Admin Morphine Sulfate (MoRPHine SULFATE INJ) 4 mg NOW STAT IV 08/13/16 01:20 08/13/16 01:22 DC 08/13/16 02:09 4 MG Ondansetron HCl 4 mg 4 mg NOW STAT IV 08/13/16 01:20 08/13/16 01:22 DC 08/13/16 02:09 4 MG Sodium Chloride 1,000 ml @ 125 mls/hr Q8H STAT IV 08/13/16 01:20 08/13/16 09:19 08/13/16 02:08 125 MLS/HR Sodium Chloride (Nss 250ml) 250 ml @ 999 mls/hr Q16M STAT IV 08/13/16 01:20 08/13/16 01:35 DC 08/13/16 01:48 999 MLS/HR ED Course Prior records/ancillary studies reviewed. Triage Nursing notes reviewed. The patient's history was concerning for abdominal pain. Differential diagnosis: Etiologies such as appendicitis, progression of liver disease, diverticulitis, PUD, biliary pathology, UTI, pancreatitis, obstruction, mesenteric ischemia, aortic pathology, infections, inflammatory bowel disease, renal colic, as well as others were entertained. Physical examination findings: As above. ER treatment provided: Morphine, Zofran, IV fluids On reassessment the patient felt better. Diagnostics interpreted by me: ECG: Normal sinus, normal intervals, no acute ST-T wave changes. Impression normal sinus rhythm interpreted by myself The labs revealed stable H&H. No leukocytosis Imaging studies: Ultrasound negative for DVT Chest x-ray with no acute consolidation, pneumothorax or free air per my interpretation Prior MRCP was reviewed along with ultrasound Consultation: A consultation was placed with the Dr Sosa. The case was discussed and diagnostics were reviewed. The patient was evaluated in the ER for further treatment. Exam and history seem consistent with biliary colic. Patient still had severe amount of pain. He will be evaluated by medicine for possible admission. Patient agrees to treatment plan of possible admission.By the evaluation outlined above emergent etiologies such as appendicitis, diverticulitis, PUD, UTI, pancreatitis, obstruction, mesenteric ischemia, aortic pathology, infections, inflammatory bowel disease, renal colic, as well as others were deemed relatively unlikely. The pt informed about the findings as listed above. All questions were answered and pleased with the treatment. Case reviewed with my attending. Medical Decision As above Impression Primary Impression: Biliary colic Additional Impression: Intractable abdominal pain Departure Information Dispostion Being Evaluated By Hospitalist Condition FAIR Referrals Michelle Borrego D.OJenny (PCP) Patient Instructions My [facility] Problem Qualifiers
[2016-08-13] MEDS ORDERED: FUROSEMIDE 40 MG/4 ML VIAL IV STA (04:28)
[2016-08-13] MEDS ORDERED: LACTULOSE SYRUP 20 GM/30 ML UDC PO PRN (04:30)
[2016-08-13] MEDS ORDERED: FUROSEMIDE INJ 20 MG in SYRINGE 0 ML IV ONE (04:30)
[2016-08-13] MEDS ORDERED: ALUMINUM/MAGNESIUM/SIMETH (MAALOX MAX) 30 ML UDC PO PRN (04:30)
[2016-08-13] MEDS ORDERED: MAGNESIUM HYDROXIDE SUSP 30 ML UDC PO PRN (04:30)
[2016-08-13] MEDS ORDERED: ONDANSETRON INJ 2 MG/ML 2 ML VIAL IV PRN (04:30)
[2016-08-13] MEDS ORDERED: MAGNESIUM SULFATE 1GM / D5W 1 GM in PREMIXED IN D5W 100 ML IV STA (04:30)
[2016-08-13] MEDS ORDERED: MAGNESIUM SULFATE 1GM / D5W 1 GM BAG ONE (04:35)
[2016-08-13 05:30] VITALS: Ht 172.7 cm; Wt 77.8 kg
[2016-08-13 05:38] VITALS: BP 112/63; PULSE 88; TEMP 36.8; O2SAT 92
[2016-08-13] MEDS ORDERED: AMPICILLIN/SULBACTAM CONSULT ACTIVE PRN ×2 (05:45)
[2016-08-13] MEDS: SODIUM CHLORIDE 0.9% 1000ML 1,000 ML IV SCH ×2 (05:54→23:37)
[2016-08-13] MEDS: AMPICILLIN/SULBACTAM SOD INJ 3,000 MG in SODIUM CHLORIDE 0.9% 100ML 100 ML IV SCH ×4 (06:22→23:37)
--- NOTE | 2016-08-13 06:45 | DIAGNOSTIC IMAGING REPORT ---
BILATERAL LOWER EXTREMITY VENOUS DOPPLER HISTORY: Pain. Edema. leg pain/swelling, ? DVT COMPARISON STUDY: None. FINDINGS: There is normal compressibility, flow, and augmentation within the bilateral lower extremity deep venous systems. IMPRESSION: No DVT within the right or left lower extremity. Electronically signed by: Reinaldo Hernandez M.D. 08/13/2016 6:44 AM Dictated Date/Time: 08/13/2016 6:43 AM
--- NOTE | 2016-08-13 07:09 | HISTORY & PHYSICAL EXAMINATION ---
DATE OF ADMISSION: 08/13/2016 CHIEF COMPLAINT: Right upper quadrant abdominal pain. HISTORY OF PRESENT ILLNESS: This is a 40-year-old male with past medical history significant for alcoholic liver cirrhosis. Last alcohol drink was in December 2015, history of thrombocytopenia, anemia, hyponatremia, history of elevated LFTs, who was admitted in 08/10/2016 with right upper quadrant abdominal pain and found to have gallbladder dysfunction during that hospital stay MRCP was done which showed sludge or stone and at that time he was seen by surgery and GI and surgery thought the patient does not have any acute cholecystitis, and because his MELD score was 17 and as he was planning for liver transplant thought he was high risk for surgery and he was treated with antibiotics for a couple of days and his symptoms improved and he was discharged yesterday to follow up with GI in this Friday. The patient went home and he had his dinner and started to have severe right upper quadrant abdominal pain radiating to back like last time and was nauseous and decided to come to the ER again. Denies any fever or chills. No chest pain, no shortness of breath, no cough, no headaches, no blurred visions. Normal bowel and bladder movements.But he has also developed some mild erythematous rash in his lower extremities with mild edema. Currently resting comfortably and hemodynamically stable. Pain is controlled with pain medications in the ER. ALLERGIES: ASPIRIN. PAST MEDICAL HISTORY: As mentioned above. PAST SURGICAL HISTORY: Tonsillectomy. MEDICATIONS: The patient is on potassium chloride 20 mEq p.o. daily, spironolactone 25 mg p.o. daily, Lasix 20 mg p.o. daily, lactulose 15 mg p.o. b.i.d. p.r.n. for constipation, Prilosec 20 mg p.o. b.i.d., lactobacillus 1 capsule p.o. b.i.d., folic acid 1 mg p.o. daily, buspirone 5 mg p.o. b.i.d., magox 400mg p.o. b.i.d. FAMILY HISTORY: Significant for mother had asthma, diabetes. Father had prostate cancer. Mother had breast cancer. Father also had stroke. SOCIAL HISTORY: Single. Chews tobacco and heavy alcohol use in the past but sober since December 2015. No drug use. REVIEW OF SYSTEMS: As per HPI. Rest of review of symptoms negative. PHYSICAL EXAMINATION: GENERAL: The patient is of moderate build, not in distress. VITAL SIGNS: Temperature 36.9, pulse 82, respiratory rate 16, blood pressure 121/62, oxygen 94% room air. HEENT: No pallor, icterus present. Pupils equal, round, and reactive to light. NECK: No JVD, no neck masses, no carotid bruits. CARDIOVASCULAR: S1, S2 heard, regular rate and rhythm, no murmur, no gallop. RESPIRATORY SYSTEM: Clear to auscultation bilaterally. No wheezing, no crackles. ABDOMEN: Soft, bowel sounds present. Right upper quadrant tenderness present, no guarding, no rigidity, no distention. CENTRAL NERVOUS SYSTEM: Cranial nerves II through XII grossly intact. Nonfocal. EXTREMITIES: Bilateral lower extremities show some mild erythematous changes and mild pedal edema present. LABS: WBC 9, hemoglobin 10.6, hematocrit 31.8, platelets 101. Sodium 142, potassium 4, chloride 109, CO2 of 26, BUN 8, creatinine 0.9, serum glucose 95, calcium 8.5, magnesium 1.7, total bilirubin 4.1, direct bilirubin 0.2, AST 98, ALT 52, alkaline phosphatase is 194, troponin I less than 0.015. Lipase 1388,. Chest x-ray, no acute findings seen. Venous Doppler lower extremity pending. ASSESSMENT AND PLAN: This is a 40-year-old male who presents with right upper quadrant pain. 1. Right upper quadrant pain . Has gallbladder disease. MRCP done during last admissions shows multiple subtle hypodensity lobular structures seen within the gallbladder,sludge or stones. There is question of cholecystitis, but seen by surgery and thought there was no acute cholecystitis and also because of his MELD score of 17 and patient was contemplating on being on transplant list, surgery was not recommended. And as symptoms improved and got discharged but comes back with the same symptoms. We will keep him n.p.o. Gentle fluids, pain control. We will consult GI for further recommendations. 2. Lower extremity erythema. We will follow with his Doppler studies. We will place him on IV Unasyn for possible cellulitis and monitor. 3. Liver cirrhosis secondary to alcohol. As the patient is currently n.p.o. we will hold the Lasix and spironolactone. We will continue lactulose and nadolol, we will closely monitor for any volume overload. 4. Pancreatic cyst seen in MRCP during last admission, plan for follow up 1 year followup with MRCP, 5. elevated LFTs and mild elevation of INR probably from cirrhosis. Follow the labs. 6. Deep vein thrombosis prophylaxis, SCDs and TEDs. DISPOSITION: Admit to medical floor. Expect to discharge home and follow with his family doctor. Level 1 full code. MTDD
[2016-08-13 07:10] VITALS: BP 109/62; PULSE 90; TEMP 36.8; O2SAT 95
--- NOTE | 2016-08-13 07:13 | DIAGNOSTIC IMAGING REPORT ---
CHEST ONE VIEW PORTABLE CLINICAL HISTORY: CHEST PAIN dyspnea COMPARISON STUDY: 07/26/2016 FINDINGS: The bones soft tissues and hemidiaphragms are normal. The cardiomediastinal silhouette is normal. The lungs are clear. The pulmonary vasculature is normal. IMPRESSION: Negative chest. Electronically signed by: Reinaldo Hernandez M.D. 08/13/2016 7:11 AM Dictated Date/Time: 08/13/2016 7:11 AM
--- NOTE | 2016-08-13 07:31 | Gastrointestinal Consultation ---
Gastrointestinal Consultation Date of Consultation: August 13, 2016 Attending Physician: Ian Consulting Physician: Ruben Reason for Consultation: RUQ pain, ETOH cirrhosis History of Present Illness Patient is a 40 year old male w/ PMH significant for ETOH induced cirrhosis w/ non-bleeding esophageal varices and ascites who presented to the ER 1 day after hospital discharge for biliary colic - GI is consulted for ongoing management. Pt was seen and evaluated this AM. He reports immediately after discharge yesterday, he developed severe RUQ pain with associated nausea. Pain radiated to this back. Pain was constant and dull with twinges of sharp pain. No other associated symptoms. Pain is greatly relieved this AM but still present. He is more concerned about left lower extremity edema and left groin pain. Denies fever, chills, chest pain, SOB, black/bloody stools/emesis. Decompensations: Varices: yes on nadolol 10 bid (previously on 20 bid but held due to dizziness) Ascites: yes on lasix 40 aldactone 100 SBP: yes treated empirically on 02/11/17 Hepatic encephalopathy: no Screenings: EGD 04/18/16: Three columns of non-bleeding grade II varices were found in the middle third of the esophagus and in the lower third of the esophagus. No stigmata of recent bleeding were evident and no red dinh signs were present. Portal hypertensive gastropathy was found in the entire examined stomach. The examined duodenum was normal. Immunizations: unknown immunity HCC 01/15/16: The liver is increased in size and echogenicity. The liver measures 21 cm. No definite focal masses are seen. Large amount of sludge is seen within the gallbladder. No shadowing stones are seen. The gallbladder wall is normal. No pericholecystic fluid is seen. A definite sonographic Curry's sign was not elicited. There is no intra-or extrahepatic biliary duct dilatation. The common bile duct measures 2-3 mm. The right kidney is normal in size and echogenicity with no shadowing calculi, hydronephrosis, or gross masses. It measures 11.4 cm. The pancreas is not well visualized. There is a small amount of ascites adjacent to the liver. Past Medical/Surgical History Medical Problems: (1) Biliary colic Status: Acute (2) Biliary obstruction Status: Acute (3) Hyperbilirubinemia Status: Acute (4) Intractable abdominal pain Status: Acute (5) Right otitis media Status: Acute (6) RUQ abdominal pain Status: Acute Past Medical History: ETOH cirrhosis, ascites, esophageal varices, thrombocytopenia, anemia, hyponatremia, history of elevated LFTs Past Surgical History: EGD, tonsillectomy Family History No pertinent family history Social History Smoking Status: Never Smoker Alcohol Use: other Drug Use: none Marital Status: single Occupation Status: unemployed Allergies Coded Allergies: Aspirin (Verified Allergy, Unknown, THINS BLOOD, 08/13/16) Current Medications Home Meds and Scripts Medications Dose Route/Sig Max Daily Dose Days Date Category Dose Instructions Cipro Hc 0.2-1 % (Ciprofloxacin/Hydrocortisone) 150 Drops/10 Ml Susp 3 Drops OT BID 5 08/12/16 Rx Magnesium-Oxide (Magnesium Oxide) 400 Mg Tab 400 Mg PO BID 7 08/12/16 Rx Corgard (Nadolol) 20 Mg Tab 10 Mg PO DAILY 08/12/16 Rx Chronulac (Lactulose) 10 Gm/15 Ml Syrp 15 Ml PO BID PRN 10 08/10/16 Rx K-Tabs (Potassium Chloride) 10 Meq Tabcr 10 Meq PO DAILY 07/26/16 Reported Folvite (Folic Acid) 1 Mg Tab 1 Mg PO DAILY 07/26/16 Reported Prilosec (Omeprazole) 20 Mg Capcr 20 Mg PO DAILY 07/26/16 Reported Aldactone (Spironolactone) 25 Mg Tab 25 Mg PO DAILY 07/26/16 Reported Buspar (Buspirone Hcl) 15 Mg Tab 5 Mg PO BID 07/26/16 Reported Probiotic (Probiotic Product) 1 Cap Cap 1 Dose PO DAILY 07/26/16 Reported [employer] Lasix (Furosemide) 20 Mg Tab 20 Mg PO DAILY 07/26/16 Reported Review of Systems Constitutional: No chills, No fever Respiratory: No cough, No shortness of breath Cardiac: No chest pain, No edema Abdomen: + pain, No GI bleeding, No constipation, No diarrhea, No nausea, No vomiting Physical Exam Date Time Temp Pulse Resp B/P Pulse Ox O2 Delivery O2 Flow Rate FiO2 08/13/16 05:38 36.8 88 20 112/63 92 Room Air 08/13/16 05:30 Room Air 08/13/16 05:05 36.9 84 16 105/53 95 08/13/16 04:36 84 16 105/53 95 Room Air 08/13/16 03:56 82 16 121/62 94 Room Air 08/13/16 01:22 79 08/13/16 01:19 36.9 79 20 114/64 99 Room Air 08/13/16 01:15 99 Room Air General Appearance: no apparent distress Eyes: PERRL ENT: hearing grossly normal Neck: supple Respiratory/Chest: lungs clear Cardiovascular: regular rate, rhythm Abdomen: normal bowel sounds, soft, no organomegaly, no pulsatile mass, + tenderness (RUQ tenderness with deep palpation) Neurologic/Psych: alert, normal mood/affect, oriented x 3 Skin: normal color, no jaundice, warm/dry, no rash Laboratory Results Last 24 Hours Test 08/13/16 01:30 White Blood Count 9.30 K/uL Red Blood Count 3.23 M/uL Hemoglobin 10.6 g/dL Hematocrit 31.8 % Mean Corpuscular Volume 98.5 fL Mean Corpuscular Hemoglobin 32.8 pg Mean Corpuscular Hemoglobin Concent 33.3 g/dl Platelet Count 101 K/uL Mean Platelet Volume 10.0 fL Neutrophils (%) (Auto) 65.7 % Lymphocytes (%) (Auto) 15.6 % Monocytes (%) (Auto) 13.7 % Eosinophils (%) (Auto) 3.9 % Basophils (%) (Auto) 0.9 % Neutrophils # (Auto) 6.12 K/uL Lymphocytes # (Auto) 1.45 K/uL Monocytes # (Auto) 1.27 K/uL Eosinophils # (Auto) 0.36 K/uL Basophils # (Auto) 0.08 K/uL RDW Standard Deviation 52.1 fL RDW Coefficient of Variation 14.5 % Immature Granulocyte % (Auto) 0.2 % Immature Granulocyte # (Auto) 0.02 K/uL Prothrombin Time 18.3 SECONDS Prothromb Time International Ratio 1.7 Activated Partial Thromboplast Time 35.0 SECONDS Partial Thromboplastin Ratio 1.3 Sodium Level 142 mmol/L Potassium Level 4.0 mmol/L Chloride Level 109 mmol/L Carbon Dioxide Level 26 mmol/L Anion Gap 7.0 mmol/L Blood Urea Nitrogen 8 mg/dl Creatinine 0.92 mg/dl Est Creatinine Clear Calc Drug Dose 101.2 ml/min Estimated GFR () 118.5 Estimated GFR (Non- 102.2 BUN/Creatinine Ratio 8.7 Random Glucose 95 mg/dl Calcium Level 8.5 mg/dl Magnesium Level 1.7 mg/dl Total Bilirubin 4.1 mg/dl Direct Bilirubin 2.0 mg/dl Aspartate Amino Transf (AST/SGOT) 98 U/L Alanine Aminotransferase (ALT/SGPT) 52 U/L Alkaline Phosphatase 194 U/L Troponin I < 0.015 ng/ml Total Protein 6.9 gm/dl Albumin 2.6 gm/dl Lipase 388 U/L Impression Mr. Guillory a 40 year old male who presents with RUQ pain with nausea moderately resolved in the setting of known ETOH cirrhosis complicated by non-bleeding varices and diuretic controlled ascites. MELD 17 making him moderate to high risk of cholecystectomy. The pain continues to be intermittent likely biliary colic. RUQ US today for evaluation 1 yr f/u MRCP for pancreatic cyst F/U in GI clinic, will need transplantation eval given has been abstinent for greater than 6 mo and has a MELD that is listable at 17 If needs Gallbladder removed, may need to be done at transplant center GI ok for diet as tolerated Continue on diuretics Low salt diet would be ultimate goal Continue on Nadolol GI to sign off. Please call with any questions or concerns. Plan RUQ US today for evaluation 1 yr f/u MRCP for pancreatic cyst F/U in GI clinic, will need transplantation eval given has been abstinent for greater than 6 mo and has a MELD that is listable at 17 If needs Gallbladder removed, may need to be done at transplant center GI ok for diet as tolerated Continue on diuretics Low salt diet would be ultimate goal Continue on Nadolol Actigall 300 BID GI to sign off. Please call with any questions or concerns. ATTESTATION: I have performed a history and physical examination of this patient and reviewed the electronic record. Specifically, on physical examination there is no abdominal tenderness. I have discussed the case with RUPERT Cueva. The above note reflects my findings, conclusions, and recommendations. Michael Miranda MD
[2016-08-13] MEDS: LACTOBACILLUS ACIDOPHILUS (FLORANEX) TAB PO SCH (08:01)
[2016-08-13] MEDS: MAGNESIUM OXIDE 400 MG TAB PO SCH ×2 (08:01→20:57)
[2016-08-13] MEDS: NADOLOL 40 MG TAB PO SCH (08:01)
[2016-08-13] MEDS: PANTOprazole SOD 40 MG TAB PO SCH (08:01)
[2016-08-13] MEDS: CIPRO 0.2%/HYDROCORTISONE 1% OTIC SUSP 10 ML BTL OT SCH ×3 (09:02→20:58)
[2016-08-13 15:41] VITALS: BP 98/60; PULSE 73; TEMP 36.8; O2SAT 96
[2016-08-13 16:08] VITALS: O2SAT 96
[2016-08-13] MEDS: ACETAMINOPHEN 325 MG TAB PO PRN (20:56)
[2016-08-13] MEDS: URSODIOL 300 MG CAP PO SCH (20:58)
--- NOTE | 2016-08-13 22:50 | Progress Note ---
Medicine Progress Note Date & Time of Visit: August 13, 2016 at 22:43. Subjective patient seen resting in bed was ordered to resume diet per GI recommendations after dinner, patient again having RUQ pain no nausea, fever/chills no other symptoms Objective Last 8 Hrs Date Time Temp Pulse Resp B/P Pulse Ox O2 Delivery O2 Flow Rate FiO2 08/13/16 16:08 96 Room Air 08/13/16 15:41 36.8 73 18 98/60 96 Room Air Physical Exam: General- oriented x 3, not in distress, speaks in sentences with no effort Head- atraumatic Eyes- EOMI,(+) mild icterus ENT- oropharynx clear Neck- no JVD Lungs- clear to auscultation bilaterally Heart- regular rhythm; no murmur, chela; rate Abdomen- normal bowel sounds, soft, mild RUQ tenderness Extremities- no pretibial edema, no calf tenderness; peripheral pulses intact Neuro- alert, oriented x 3; no gross focal deficits Skin- warm & dry Laboratory Results: Last 24 Hours Test 08/13/16 01:30 White Blood Count 9.30 K/uL Red Blood Count 3.23 M/uL Hemoglobin 10.6 g/dL Hematocrit 31.8 % Mean Corpuscular Volume 98.5 fL Mean Corpuscular Hemoglobin 32.8 pg Mean Corpuscular Hemoglobin Concent 33.3 g/dl Platelet Count 101 K/uL Mean Platelet Volume 10.0 fL Neutrophils (%) (Auto) 65.7 % Lymphocytes (%) (Auto) 15.6 % Monocytes (%) (Auto) 13.7 % Eosinophils (%) (Auto) 3.9 % Basophils (%) (Auto) 0.9 % Neutrophils # (Auto) 6.12 K/uL Lymphocytes # (Auto) 1.45 K/uL Monocytes # (Auto) 1.27 K/uL Eosinophils # (Auto) 0.36 K/uL Basophils # (Auto) 0.08 K/uL RDW Standard Deviation 52.1 fL RDW Coefficient of Variation 14.5 % Immature Granulocyte % (Auto) 0.2 % Immature Granulocyte # (Auto) 0.02 K/uL Prothrombin Time 18.3 SECONDS Prothromb Time International Ratio 1.7 Activated Partial Thromboplast Time 35.0 SECONDS Partial Thromboplastin Ratio 1.3 Sodium Level 142 mmol/L Potassium Level 4.0 mmol/L Chloride Level 109 mmol/L Carbon Dioxide Level 26 mmol/L Anion Gap 7.0 mmol/L Blood Urea Nitrogen 8 mg/dl Creatinine 0.92 mg/dl Est Creatinine Clear Calc Drug Dose 101.2 ml/min Estimated GFR () 118.5 Estimated GFR (Non- 102.2 BUN/Creatinine Ratio 8.7 Random Glucose 95 mg/dl Calcium Level 8.5 mg/dl Magnesium Level 1.7 mg/dl Total Bilirubin 4.1 mg/dl Direct Bilirubin 2.0 mg/dl Aspartate Amino Transf (AST/SGOT) 98 U/L Alanine Aminotransferase (ALT/SGPT) 52 U/L Alkaline Phosphatase 194 U/L Troponin I < 0.015 ng/ml Total Protein 6.9 gm/dl Albumin 2.6 gm/dl Lipase 388 U/L Assessment & Plan ASSESSMENT AND PLAN: This is a 40-year-old male with history of Alcoholic Liver Cirrhosis who presents with right upper quadrant pain. RECURRENT RUQ PAIN, CHOLELITHIASIS - admitted August 10-2016 for RUQ MRCP: 1. Multiple slightly hypointense lobular structures seen within the gallbladder neck and cystic duct ranging between 3 mm and 16 mm in size. These favor sludge or stones. There is mild gallbladder wall thickening given the gallbladder distention. There is also trace pericholecystic fluid. Therefore, these findings raise the possibility of acute cholecystitis. Clinical correlation recommended. 2. There is also trace perihepatic and perisplenic ascites. 3. Common bile duct is mildly distended for age measuring up to 7 mm. There are no filling defects seen within the common bile duct. 4. The main pancreatic duct is normal in course and caliber. 5. A 5 mm indeterminate cystic structure within the pancreatic head. This favors a small cystic neoplasm. One year MRCP follow-up can be performed to ensure stability. 6. Splenomegaly. -- evaluated by Gen Surg and GI not felt to have acute cholecystitis, discharged home with GI follow up -- readmitted few hours after being discharged last night due to recurrence of RUQ pain improved this morning but having RUQ pain after resuming diet this evening -- repeat GB US keep NPO , IV fluids re-consult Gen Surg and GI MILD THROMBOCYTOPENIA, ELEVATION OF INR likely from underlying Cirrhosis - no signs of bleeding - monitor PANCREATIC CYST - seen on MRCP "A 5 mm indeterminate cystic structure within the pancreatic head. This favors a small cystic neoplasm. One year MRCP follow-up can be performed to ensure stability." - monitor as outpatient History of alcohol liver cirrhosis. -- HOLD Lasix and spironolactone - Continue lactulose and nadolol. Disposition: pending anticipate d/c home when medically stable Current Inpatient Medications: Current Inpatient Medications Medications (Trade) Dose Ordered Sig/Lisa Route Start Time Stop Time Status Last Admin Dose Admin Acetaminophen (Tylenol Tab) 650 mg Q4H PRN PO 08/13/16 04:30 09/12/16 04:29 08/13/16 20:56 650 MG Al Hydrox/Mg Hydrox/Simethicone (Maalox Max Susp) 15 ml Q4H PRN PO 08/13/16 04:30 09/12/16 04:29 Magnesium Hydroxide (Milk Of Magnesia Susp) 30 ml Q6H PRN PO 08/13/16 04:30 09/12/16 04:29 Ondansetron HCl (Zofran Inj) 4 mg Q6H PRN IV 08/13/16 04:30 09/12/16 04:29 Buspirone HCl (Buspar Tab) 5 mg BID PO 08/13/16 08:00 09/12/16 08:59 08/13/16 20:57 5 MG Ciprofloxacin/ Hydrocortisone (Cipro Hc Otic Susp) 3 drops BID OT 08/13/16 08:00 09/12/16 08:59 08/13/16 20:58 3 DROPS Folic Acid (Folvite Tab) 1 mg DAILY PO 08/13/16 08:00 09/12/16 08:59 08/13/16 08:01 1 MG Lactulose (Chronulac Syrup) 10 gm BID PRN PO 08/13/16 04:30 09/12/16 04:29 Magnesium Oxide (Mag-Ox Tab) 400 mg BID PO 08/13/16 08:00 09/12/16 08:59 08/13/16 20:57 400 MG Nadolol (Corgard Tab) 10 mg DAILY PO 08/13/16 08:00 09/12/16 08:59 08/13/16 08:01 10 MG Pantoprazole Sodium (Protonix Tab) 40 mg DAILY PO 08/13/16 08:00 09/12/16 08:59 08/13/16 08:01 40 MG Lactobacillus Acidophilus 1 tab 1 tab DAILY PO 08/13/16 08:00 09/12/16 08:59 08/13/16 08:01 1 TAB Ampicillin Sodium/ Sulbactam Sodium/ Sodium Chloride (Unasyn Inj/Nss 100ml) 108 ml @ 200 mls/hr Q6H IV 08/13/16 06:00 08/23/16 05:59 08/13/16 18:51 200 MLS/HR Morphine Sulfate 3 mg 3 mg Q3HWA PRN IV 08/13/16 04:30 08/27/16 04:29 Sodium Chloride (Nss 1000ml) 1,000 ml @ 50 mls/hr Q20H IV 08/13/16 05:30 09/12/16 05:29 08/13/16 05:54 50 MLS/HR Ampicillin Sodium/ Sulbactam Sodium (Consult) 1 ea UD PRN N/A 08/13/16 05:45 09/12/16 05:44 Ursodiol (Actigall Cap) 300 mg BID PO 08/13/16 20:00 09/12/16 19:59 08/13/16 20:58 300 MG
[2016-08-13 23:45] VITALS: BP 102/61; PULSE 79; TEMP 36.8; O2SAT 96
[2016-08-14] VITALS: O2SAT 96
[2016-08-14] MEDS: MoRPHine SULFATE 4 MG/ML 1 ML CARP\\VIAL IV PRN (04:19)
[2016-08-14] MEDS: AMPICILLIN/SULBACTAM SOD INJ 3,000 MG in SODIUM CHLORIDE 0.9% 100ML 100 ML IV SCH ×2 (05:04→11:50)
--- NOTE | 2016-08-14 06:55 | DIAGNOSTIC IMAGING REPORT ---
Right upper quadrant ultrasound GALLBLADDER-ABD LIMITED CLINICAL HISTORY: r/o cholecystitis pain. Nausea. TECHNIQUE: Ultrasound COMPARISON STUDY: 08/10/2016. MRCP 08/10/2016 FINDINGS: Gallbladder sludge and a sludge ball primarily within the gallbladder neck. Trace perihepatic free fluid. Fatty infiltration of liver. Gallbladder wall thickening to 4 mm. Fatty infiltration of liver. Heterogeneous echotexture. IMPRESSION: Gallbladder wall thickening to 4 mm. Gallbladder sludge. Biliary ductal prominence produces described up to 8 mm currently 8.5 mm. Fatty infiltration of liver. Consideration again should be given to cholecystitis. Electronically signed by: Reinaldo Hernandez M.D. 08/14/2016 6:54 AM Dictated Date/Time: 08/14/2016 6:51 AM
[2016-08-14] MEDS: MAGNESIUM OXIDE 400 MG TAB PO SCH ×2 (07:57→21:17)
[2016-08-14] MEDS: PANTOprazole SOD 40 MG TAB PO SCH (07:57)
[2016-08-14] MEDS: CIPRO 0.2%/HYDROCORTISONE 1% OTIC SUSP 10 ML BTL OT SCH ×2 (07:57→21:16)
[2016-08-14] MEDS: URSODIOL 300 MG CAP PO SCH ×2 (07:57→21:17)
[2016-08-14] MEDS: NADOLOL 40 MG TAB PO SCH (07:57)
[2016-08-14] MEDS: LACTOBACILLUS ACIDOPHILUS (FLORANEX) TAB PO SCH (07:57)
[2016-08-14 08:09] LABS: HEMATOCRIT 29.7 % (42-52); MEAN CELL VOLUME 99.7 fL (80-100); MEAN CORPUSCULAR HEMOGLOBIN 33.9 pg (25-34); RED BLOOD COUNT 2.98 M/uL (4.7-6.1)
[2016-08-14 08:12] LABS: MEAN PLATELET VOLUME 10.3 fL (7.4-10.4); PLATELET COUNT 99 K/uL (130-400)
[2016-08-14 08:14] VITALS: BP 106/59; PULSE 72; TEMP 36.6; O2SAT 95
--- NOTE | 2016-08-14 08:31 | CONSULTATION REPORT ---
DATE OF CONSULTATION: 08/14/2016 CHIEF COMPLAINT: Right upper quadrant pain. HISTORY OF PRESENT ILLNESS: The patient is a 40-year-old male with a history of alcoholic cirrhosis recently admitted and seen by surgery a few days ago for the possibility of acute cholecystitis. He does have some gallbladder wall thickening. His white count was normal and he has a MELD score of 17. He was treated with a few days of IV antibiotics. He was able to tolerate a diet and he was discharged home with outpatient GI followup and to make arrangements for liver transplant. He was admitted 2 nights ago after having fish for dinner. Was seen again yesterday by GI and was given a diet. He had some discomfort again last night after eating a pork chop. This morning he is feeling better. PAST MEDICAL HISTORY: Alcoholic cirrhosis, esophageal varices, thrombocytopenia, anemia. PAST SURGICAL HISTORY: Tonsillectomy. ALLERGIES: ASPIRIN. CURRENT MEDICATIONS: Inpatient meds include Actigall 300 mg p.o. b.i.d., BuSpar 5 mg b.i.d., Cipro otic suspension 3 drops b.i.d., folic acid 1 mg daily, magnesium oxide 400 mg b.i.d., Corgard 10 mg daily, Protonix 40 mg daily, Floranex 1 tablet daily, Unasyn 3 grams IV q. 6 hours, Tylenol 650 mg every 4 hours as needed, Zofran 4 mg as needed, morphine 3 mg as needed, milk of magnesia and Maalox as needed. OBJECTIVE: GENERAL: He is resting comfortably. VITAL SIGNS: Temperature 36.8, pulse 79, respirations 18, blood pressure 102/61, pulse ox 96% on room air. GENERAL APPEARANCE: Jaundiced. ABDOMEN: Soft, nondistended. No significant tenderness in the right upper quadrant. LABORATORY DATA: Morning labs are pending. On admission, his white count was 9000, hemoglobin 10.6, hematocrit 31.8, platelets 101,000. Sodium 142, potassium 4.0, BUN 8, creatinine 0.92, glucose 95, bilirubin 4.1, AST 98, ALT 52. IMAGING: Gallbladder ultrasound shows wall thickening 4 mm, along with sludge. This is similar to recent MRCP as well. IMPRESSION: 1. Biliary colic. 2. Cirrhosis. PLAN: Await his morning CBC. He has not been febrile and there has not been any significant change in his imaging. We do not have any plans for cholecystectomy at this time. Recommend a GI follow up as planned and referral to a transplant center. The patient was seen this morning along with Dr. Dubose. CANDICE
[2016-08-14 08:38] LABS: BASO % 1.2 %; BASO ABS # 0.06 K/uL (0-0.2); COMPLETE YES; EOS % 4.9 %; IG% 0.2 %; LYMPH % 33.5 %; LYMPH ABS # 1.71 K/uL (1.2-3.4); MONO % 12.5 %; NEUT % 47.7 %
[2016-08-14 08:58] LABS: BUN/CREATININE RATIO 13.2 (10-20); CALCIUM 8.4 mg/dl (8.5-10.1); CREATININE 0.76 mg/dl (0.60-1.40); POTASSIUM 3.7 mmol/L (3.5-5.1)
[2016-08-14 15:20] VITALS: BP 101/59; PULSE 70; TEMP 36.7; O2SAT 96
[2016-08-14 16:10] VITALS: O2SAT 96
[2016-08-14] MEDS: SODIUM CHLORIDE 0.9% 1000ML 1,000 ML IV SCH (21:16)
[2016-08-14] MEDS: ACETAMINOPHEN 325 MG TAB PO PRN (21:41)
--- NOTE | 2016-08-14 22:37 | Progress Note ---
Internal Med Progress Note Date of Service: August 14, 2016. Provider Documentation: SUBJECTIVE: still having intermittent RUQ pain , gets worse after meal no nausea or vomiting tolerating diet no fever or chills complain of pain /discomfort on left testicular area OBJECTIVE: Vital Signs-as noted below Exam: General-no sign of distress Lungs-CTA Heart-regular S1/S2 Abdomen-soft, + tenderness in RUQ Extremities-trace bilat edema Neuro-AAO x3, no focal deficit Lab data as noted below. ASSESSMENT & PLAN: RECURRENT RUQ PAIN, CHOLELITHIASIS - admitted August 10-2016 for RUQ MRCP: 1. Multiple slightly hypointense lobular structures seen within the gallbladder neck and cystic duct ranging between 3 mm and 16 mm in size. These favor sludge or stones. There is mild gallbladder wall thickening given the gallbladder distention. There is also trace pericholecystic fluid. Therefore, these findings raise the possibility of acute cholecystitis. Clinical correlation recommended. 2. There is also trace perihepatic and perisplenic ascites. 3. Common bile duct is mildly distended for age measuring up to 7 mm. There are no filling defects seen within the common bile duct. 4. The main pancreatic duct is normal in course and caliber. 5. A 5 mm indeterminate cystic structure within the pancreatic head. This favors a small cystic neoplasm. One year MRCP follow-up can be performed to ensure stability. 6. Splenomegaly. -- evaluated by Gen Surg and GI not felt to have acute cholecystitis, discharged home with GI follow up -- readmitted few hours after being discharged due to recurrence of RUQ pain improved this morning but having RUQ pain after resuming diet this evening --Surgery and GI evaluation appreciated no indication for cholecystectomy diet advanced , tolerating well possible dc home tomorrow TESTICULAR PAIN ; possible due to dependent edema no hernia noted on exam ordered for testicular USG IVF D/reggie resumed Lasix and Aldactone MILD THROMBOCYTOPENIA, ELEVATION OF INR likely from underlying Cirrhosis - no signs of bleeding - monitor PANCREATIC CYST - seen on MRCP "A 5 mm indeterminate cystic structure within the pancreatic head. This favors a small cystic neoplasm. One year MRCP follow-up can be performed to ensure stability." - monitor as outpatient History of alcohol liver cirrhosis. -- Lasix and spironolactone resumed - Continue lactulose and nadolol. DISPOSITION possible discharge home tomorrow Vital Signs: Date Time Temp Pulse Resp B/P Pulse Ox O2 Delivery O2 Flow Rate FiO2 08/14/16 16:10 96 Room Air 08/14/16 15:20 36.7 70 18 101/59 96 Room Air 08/14/16 08:14 36.6 72 18 106/59 95 Room Air 08/14/16 08:00 Room Air 08/14/16 00:00 96 Room Air 08/13/16 23:45 36.8 79 18 102/61 96 Room Air Lab Results: Results Past 24 Hours Test 08/14/16 06:43 Range/Units White Blood Count 5.10 4.8-10.8 K/uL Red Blood Count 2.98 4.7-6.1 M/uL Hemoglobin 10.1 14.0-18.0 g/dL Hematocrit 29.7 42-52 % Mean Corpuscular Volume 99.7 80-100 fL Mean Corpuscular Hemoglobin 33.9 25-34 pg Mean Corpuscular Hemoglobin Concent 34.0 32-36 g/dl Platelet Count 99 130-400 K/uL Mean Platelet Volume 10.3 7.4-10.4 fL Neutrophils (%) (Auto) 47.7 % Lymphocytes (%) (Auto) 33.5 % Monocytes (%) (Auto) 12.5 % Eosinophils (%) (Auto) 4.9 % Basophils (%) (Auto) 1.2 % Neutrophils # (Auto) 2.43 1.4-6.5 K/uL Lymphocytes # (Auto) 1.71 1.2-3.4 K/uL Monocytes # (Auto) 0.64 0.11-0.59 K/uL Eosinophils # (Auto) 0.25 0-0.5 K/uL Basophils # (Auto) 0.06 0-0.2 K/uL RDW Standard Deviation 53.0 36.4-46.3 fL RDW Coefficient of Variation 14.8 11.5-14.5 % Immature Granulocyte % (Auto) 0.2 % Immature Granulocyte # (Auto) 0.01 0.00-0.02 K/uL Sodium Level 143 136-145 mmol/L Potassium Level 3.7 3.5-5.1 mmol/L Chloride Level 110 98-107 mmol/L Carbon Dioxide Level 26 21-32 mmol/L Anion Gap 7.0 3-11 mmol/L Blood Urea Nitrogen 10 7-18 mg/dl Creatinine 0.76 0.60-1.40 mg/dl Est Creatinine Clear Calc Drug Dose 122.5 ml/min Estimated GFR () 130.4 Estimated GFR (Non- 112.5 BUN/Creatinine Ratio 13.2 10-20 Random Glucose 81 70-99 mg/dl Calcium Level 8.4 8.5-10.1 mg/dl Magnesium Level 2.0 1.8-2.4 mg/dl Total Bilirubin 2.9 0.2-1 mg/dl Direct Bilirubin 1.2 0-0.2 mg/dl Aspartate Amino Transf (AST/SGOT) 70 15-37 U/L Alanine Aminotransferase (ALT/SGPT) 41 12-78 U/L Alkaline Phosphatase 162 45-117 U/L Total Protein 6.0 6.4-8.2 gm/dl Albumin 2.3 3.4-5.0 gm/dl
[2016-08-15] VITALS: BP 105/57; PULSE 78; TEMP 36.7; O2SAT 96; O2SAT 99
[2016-08-15] MEDS: MoRPHine SULFATE 4 MG/ML 1 ML CARP\\VIAL IV PRN (01:48)
--- NOTE | 2016-08-15 07:04 | DIAGNOSTIC IMAGING REPORT ---
TESTICULAR ULTRASOUND CLINICAL HISTORY: Left testicular pain COMPARISON STUDY: No previous studies for comparison. FINDINGS: The right testis measures 3.7 x 1.7 x 2.5 cm. The left testis measures 3.1 x 1.8 x 2.4 cm. No intratesticular masses are visualized. There is no evidence of testicular torsion. There is an 8 mm right-sided epididymal cyst. There is a 4 mm left-sided scrotal width. There is a small left-sided varicocele. IMPRESSION: 1. No evidence of intratesticular mass 2. No evidence of testicular torsion Electronically signed by: Jose Raul Flores M.D. 08/15/2016 7:03 AM Dictated Date/Time: 08/15/2016 7:02 AM
[2016-08-15 07:26] VITALS: BP 104/63; PULSE 73; TEMP 36.7; O2SAT 97
[2016-08-15 07:41] LABS: HEMATOCRIT 29.3 % (42-52); MEAN CELL VOLUME 98.7 fL (80-100); MEAN CORPUSCULAR HEMOGLOBIN 33.3 pg (25-34); MEAN CORPUSCULAR HGB CONC 33.8 g/dl (32-36); RED BLOOD COUNT 2.97 M/uL (4.7-6.1)
[2016-08-15] MEDS: CIPRO 0.2%/HYDROCORTISONE 1% OTIC SUSP 10 ML BTL OT SCH (07:53)
[2016-08-15] MEDS: MAGNESIUM OXIDE 400 MG TAB PO SCH (07:53)
[2016-08-15] MEDS: PANTOprazole SOD 40 MG TAB PO SCH (07:53)
[2016-08-15] MEDS: NADOLOL 40 MG TAB PO SCH (07:53)
[2016-08-15] MEDS: LACTOBACILLUS ACIDOPHILUS (FLORANEX) TAB PO SCH (07:53)
[2016-08-15] MEDS: URSODIOL 300 MG CAP PO SCH (07:54)
[2016-08-15] MEDS ORDERED: SPIRONOLACTONE 25 MG TAB PO SCH (08:00)
[2016-08-15] MEDS ORDERED: FUROSEMIDE 20 MG TAB PO SCH (08:00)
[2016-08-15 08:09] LABS: BASO % 1.1 %; BASO ABS # 0.07 K/uL (0-0.2); COMPLETE YES; EOS % 4.1 %; IG% 0.2 %; LYMPH % 24.9 %; LYMPH ABS # 1.57 K/uL (1.2-3.4); MEAN PLATELET VOLUME 10.9 fL (7.4-10.4); MONO % 16.8 %; NEUT % 52.9 %; PLATELET COUNT 95 K/uL (130-400)
[2016-08-15 08:21] LABS: BUN/CREATININE RATIO 10.1 (10-20); CREATININE 0.86 mg/dl (0.60-1.40); MAGNESIUM 1.7 mg/dl (1.8-2.4); POTASSIUM 3.8 mmol/L (3.5-5.1)
[2016-08-15 08:45] LABS: CALCIUM 8.3 mg/dl (8.5-10.1)
--- NOTE | 2016-08-15 14:56 | Discharge Instructions ---
Discharge Instructions Date of Service August 15, 2016. Admission Reason for Admission: Biliary Colic Discharge Discharge Diagnosis / Problem: BILAIRY COLIC /ALCOHOLIC LIVER DISEASE Discharge Goals Goal(s): Decrease discomfort, Diagnostic testing Activity Recommendations Activity Limitations: resume your previous activity . Instructions / Follow-Up Instructions / Follow-Up HOSPITAL FOLLOW UP ON 08/22/2016 @ 11:[address] Michelle Borrego DO Internal Medicine [facility] GASTROENTEROLOGY FOLLOW UP ON 08/16/2016 @ 1:00 PM WITH RUPERT Comer Gastroenterology [facility] INCIDENTAL FINDING OF PANCREATIC CYST ONE YEAR FOLLOW UP MRCP IS RECOMMENDED FOR STABILITY Current Hospital Diet Patient's current hospital diet: Low Sodium Diet (2gm Na) Discharge Diet Recommended Diet: Low Sodium Diet (2gm Na) Pending Studies Studies pending at discharge: no Medical Emergencies . Who to Call and When: Medical Emergencies: If at any time you feel your situation is an emergency, please call 911 immediately. . Non-Emergent Contact Non-Emergency issues call your: Primary Care Provider . . "Provider Documentation" section prepared by Leanne Clark. . VTE Core Measure Inpt VTE Proph given/why not?: Yuri Vazquez, MASSIMO's
[2016-08-15 16:52] VITALS: BP 104/63; PULSE 73; TEMP 36.7; O2SAT 97
--- NOTE | 2016-08-15 17:09 | Progress Note ---
Internal Med Progress Note Date of Service: August 15, 2016. Provider Documentation: SUBJECTIVE: no complain of RUQ abdominal pain today no nausea tolerating diet well mentions left testicular pain has improved, getting intermittent pain no fever or chills Ok to be discharged home today OBJECTIVE: Vital Signs-as noted below Exam: General-no sign of distress Lungs-CTA Heart-regular S1/S2 Abdomen-soft, non tender , bowel sound active Extremities-trace bilat edema Neuro-AAO x3, no focal deficit Lab data as noted below. ASSESSMENT & PLAN: RECURRENT RUQ PAIN, CHOLELITHIASIS/BILIARY COLIC recent admission for similar symptom HX of known ETOH cirrhosis complicated by non-bleeding varices and diuretic controlled ascites. MELD 17 making him moderate to high risk of cholecystectomy. RUQ intermittent pain likely biliary colic. RUQ US : incidental finding of pancreatic cyst in MRCP done last admission ; 1 yr f/u MRCP for pancreatic cyst F/U in GI clinic, will need transplantation eval given has been abstinent for greater than 6 mo and has a MELD that is listable at 17 If needs Gallbladder removed, may need to be done at transplant center pt will Continue on diuretic-Lasix /Aldactone cont Low salt diet Continue on Nadolol for grade 1 esophageal varices diet advanced , tolerating well appreciate input form Surgery no indication of emergent cholecystectomy -no cholecystitis if pt continues to have biliary colic requiring cholecystectomy in future - should be done at a tertiary care/Liver transplant Center stable to be discharged home today TESTICULAR PAIN ; possible due to dependent edema no hernia noted on exam testicular USG -normal study , no evidence of testicular Torsion resumed Lasix and Aldactone MILD THROMBOCYTOPENIA, ELEVATION OF INR likely from underlying Cirrhosis alcoholic liver disease MELD score 17 - no signs of bleeding - monitor PANCREATIC CYST - seen on MRCP-incidental finding "A 5 mm indeterminate cystic structure within the pancreatic head. This favors a small cystic neoplasm. One year MRCP follow-up can be performed to ensure stability." - monitor as outpatient MRCP in a year History of alcohol liver cirrhosis. -- Lasix and spironolactone resumed - Continue lactulose and nadolol. DISPOSITION stable to be discharged home today Vital Signs: Date Time Temp Pulse Resp B/P Pulse Ox O2 Delivery O2 Flow Rate FiO2 08/15/16 16:52 36.7 73 16 97 Room Air 08/15/16 08:00 Room Air 08/15/16 07:26 36.7 73 16 104/63 97 Room Air 08/15/16 00:00 36.7 78 20 105/57 99 Room Air 08/15/16 00:00 96 Room Air Lab Results: Results Past 24 Hours Test 08/15/16 06:59 Range/Units White Blood Count 6.30 4.8-10.8 K/uL Red Blood Count 2.97 4.7-6.1 M/uL Hemoglobin 9.9 14.0-18.0 g/dL Hematocrit 29.3 42-52 % Mean Corpuscular Volume 98.7 80-100 fL Mean Corpuscular Hemoglobin 33.3 25-34 pg Mean Corpuscular Hemoglobin Concent 33.8 32-36 g/dl Platelet Count 95 130-400 K/uL Mean Platelet Volume 10.9 7.4-10.4 fL Neutrophils (%) (Auto) 52.9 % Lymphocytes (%) (Auto) 24.9 % Monocytes (%) (Auto) 16.8 % Eosinophils (%) (Auto) 4.1 % Basophils (%) (Auto) 1.1 % Neutrophils # (Auto) 3.33 1.4-6.5 K/uL Lymphocytes # (Auto) 1.57 1.2-3.4 K/uL Monocytes # (Auto) 1.06 0.11-0.59 K/uL Eosinophils # (Auto) 0.26 0-0.5 K/uL Basophils # (Auto) 0.07 0-0.2 K/uL RDW Standard Deviation 52.3 36.4-46.3 fL RDW Coefficient of Variation 14.8 11.5-14.5 % Immature Granulocyte % (Auto) 0.2 % Immature Granulocyte # (Auto) 0.01 0.00-0.02 K/uL Sodium Level 144 136-145 mmol/L Potassium Level 3.8 3.5-5.1 mmol/L Chloride Level 110 98-107 mmol/L Carbon Dioxide Level 29 21-32 mmol/L Anion Gap 5.0 3-11 mmol/L Blood Urea Nitrogen 9 7-18 mg/dl Creatinine 0.86 0.60-1.40 mg/dl Est Creatinine Clear Calc Drug Dose 108.2 ml/min Estimated GFR () 124.0 Estimated GFR (Non- 107.0 BUN/Creatinine Ratio 10.1 10-20 Random Glucose 80 70-99 mg/dl Calcium Level 8.3 8.5-10.1 mg/dl Magnesium Level 1.7 1.8-2.4 mg/dl
--- NOTE | 2016-08-15 18:39 | Discharge Summary ---
Discharge Summary Date of Service August 15, 2016. Discharge Summary Admission Date: August 13, 2016 at 04:26 Discharge Date: August 15, 2016 Discharge Disposition: Home Principal Diagnosis: BILIARY COLIC /ALCOHOLIC LIVER DISEASE Procedures: RUQ USG : IMPRESSION: Gallbladder wall thickening to 4 mm. Gallbladder sludge. Biliary ductal prominence produces described up to 8 mm currently 8.5 mm. Fatty infiltration of liver. Consideration again should be given to cholecystitis. LOWER EXT DOPPLER : NO EVIDENCE OF DVT TESTICULAR USG : IMPRESSION: 1. No evidence of intratesticular mass 2. No evidence of testicular torsion Consultations: SURGERY GASTROENTEROLOGY Medication Reconciliation Continued Medications: Buspirone Hcl (Buspar) 15 Mg Tab 5 MG PO BID, TAB Ciprofloxacin/Hydrocortisone (Cipro Hc 0.2-1 %) 150 Drops/10 Ml Susp 3 DROPS OT BID for 5 Days Folic Acid (Folvite) 1 Mg Tab 1 MG PO DAILY, TAB Furosemide (Lasix) 20 Mg Tab 20 MG PO DAILY Lactulose (Chronulac) 10 Gm/15 Ml Syrp 15 ML PO BID PRN for Constipation for 10 Days Magnesium Oxide (Magnesium-Oxide) 400 Mg Tab 400 MG PO BID for 7 Days, #14 TAB 1 Refill Nadolol (Corgard) 20 Mg Tab 10 MG PO DAILY, #30 TAB Omeprazole (Prilosec) 20 Mg Capcr 20 MG PO DAILY, CAP Potassium Chloride (K-Tabs) 10 Meq Tabcr 10 MEQ PO DAILY Probiotic Product (Probiotic) 1 Cap Cap 1 DOSE PO DAILY 10 BILL[employer] Spironolactone (Aldactone) 25 Mg Tab 25 MG PO DAILY, TAB Referrals At Discharge Follow up Referrals: Physician Referral - 08/22/16 with Michelle Borrego D.O. Admission Information HPI (per Admitting provider): DATE OF ADMISSION: 08/13/2016 CHIEF COMPLAINT: Right upper quadrant abdominal pain. HISTORY OF PRESENT ILLNESS: This is a 40-year-old male with past medical history significant for alcoholic liver cirrhosis. Last alcohol drink was in December 2015, history of thrombocytopenia, anemia, hyponatremia, history of elevated LFTs, who was admitted in 08/10/2016 with right upper quadrant abdominal pain and found to have gallbladder dysfunction during that hospital stay MRCP was done which showed sludge or stone and at that time he was seen by surgery and GI and surgery thought the patient does not have any acute cholecystitis, and because his MELD score was 17 and as he was planning for liver transplant thought he was high risk for surgery and he was treated with antibiotics for a couple of days and his symptoms improved and he was discharged yesterday to follow up with GI in this Friday. The patient went home and he had his dinner and started to have severe right upper quadrant abdominal pain radiating to back like last time and was nauseous and decided to come to the ER again. Denies any fever or chills. No chest pain, no shortness of breath, no cough, no headaches, no blurred visions. Normal bowel and bladder movements.But he has also developed some mild erythematous rash in his lower extremities with mild edema. Currently resting comfortably and hemodynamically stable. Pain is controlled with pain medications in the ER. ALLERGIES: ASPIRIN. PAST MEDICAL HISTORY: As mentioned above. PAST SURGICAL HISTORY: Tonsillectomy. MEDICATIONS: The patient is on potassium chloride 20 mEq p.o. daily, spironolactone 25 mg p.o. daily, Lasix 20 mg p.o. daily, lactulose 15 mg p.o. b.i.d. p.r.n. for constipation, Prilosec 20 mg p.o. b.i.d., lactobacillus 1 capsule p.o. b.i.d., folic acid 1 mg p.o. daily, buspirone 5 mg p.o. b.i.d., magox 400mg p.o. b.i.d. FAMILY HISTORY: Significant for mother had asthma, diabetes. Father had prostate cancer. Mother had breast cancer. Father also had stroke. SOCIAL HISTORY: Single. Chews tobacco and heavy alcohol use in the past but sober since December 2015. No drug use. REVIEW OF SYSTEMS: As per HPI. Rest of review of symptoms negative. Physical Exam (per Admitting): PHYSICAL EXAMINATION: GENERAL: The patient is of moderate build, not in distress. VITAL SIGNS: Temperature 36.9, pulse 82, respiratory rate 16, blood pressure 121/62, oxygen 94% room air. HEENT: No pallor, icterus present. Pupils equal, round, and reactive to light. NECK: No JVD, no neck masses, no carotid bruits. CARDIOVASCULAR: S1, S2 heard, regular rate and rhythm, no murmur, no gallop. RESPIRATORY SYSTEM: Clear to auscultation bilaterally. No wheezing, no crackles. ABDOMEN: Soft, bowel sounds present. Right upper quadrant tenderness present, no guarding, no rigidity, no distention. CENTRAL NERVOUS SYSTEM: Cranial nerves II through XII grossly intact. Nonfocal. EXTREMITIES: Bilateral lower extremities show some mild erythematous changes and mild pedal edema present.PHYSICAL EXAMINATION: GENERAL: The patient is of moderate build, not in distress. VITAL SIGNS: Temperature 36.9, pulse 82, respiratory rate 16, blood pressure 121/62, oxygen 94% room air. HEENT: No pallor, icterus present. Pupils equal, round, and reactive to light. NECK: No JVD, no neck masses, no carotid bruits. CARDIOVASCULAR: S1, S2 heard, regular rate and rhythm, no murmur, no gallop. RESPIRATORY SYSTEM: Clear to auscultation bilaterally. No wheezing, no crackles. ABDOMEN: Soft, bowel sounds present. Right upper quadrant tenderness present, no guarding, no rigidity, no distention. CENTRAL NERVOUS SYSTEM: Cranial nerves II through XII grossly intact. Nonfocal. EXTREMITIES: Bilateral lower extremities show some mild erythematous changes and mild pedal edema present. Hospital Course RECURRENT RUQ PAIN, CHOLELITHIASIS/BILIARY COLIC recent admission for similar symptom HX of known ETOH cirrhosis complicated by non-bleeding varices and diuretic controlled ascites. MELD 17 making him moderate to high risk of cholecystectomy. RUQ intermittent pain likely biliary colic. RUQ US : IMPRESSION: Gallbladder wall thickening to 4 mm. Gallbladder sludge. Biliary ductal prominence produces described up to 8 mm currently 8.5 mm. Fatty infiltration of liver. Consideration again should be given to cholecystitis. incidental finding of pancreatic cyst in MRCP done last admission ; 1 yr f/u MRCP for pancreatic cyst F/U in GI clinic, will need transplantation eval given has been abstinent for greater than 6 mo and has a MELD that is listable at 17 If needs Gallbladder removed, may need to be done at transplant center pt will Continue on diuretic-Lasix /Aldactone cont Low salt diet Continue on Nadolol for grade 1 esophageal varices diet advanced , tolerating well appreciate input form Surgery no indication of emergent cholecystectomy if pt continues to have biliary colic requiring cholecystectomy in future - should be done at a tertiary care/Liver transplant Center stable to be discharged home today TESTICULAR PAIN ; possible due to dependent edema no hernia noted on exam testicular USG -normal study , no evidence of testicular Torsion resumed Lasix and Aldactone MILD THROMBOCYTOPENIA, ELEVATION OF INR likely from underlying Cirrhosis alcoholic liver disease MELD score 17 - no signs of bleeding - monitor PANCREATIC CYST - seen on MRCP-incidental finding "A 5 mm indeterminate cystic structure within the pancreatic head. This favors a small cystic neoplasm. One year MRCP follow-up can be performed to ensure stability." - monitor as outpatient MRCP in a year History of alcohol liver cirrhosis. -- Lasix and spironolactone resumed - Continue lactulose and nadolol. DISPOSITION stable to be discharged home today Total time spent on discharge = 40 MINS This includes examination of the patient, discharge planning, medication reconciliation, and communication with other providers. Discharge Instructions Discharge Instructions Date of Service August 15, 2016. Admission Reason for Admission: Biliary Colic Discharge Discharge Diagnosis / Problem: BILIARY COLIC /ALCOHOLIC LIVER DISEASE Discharge Goals Goal(s): Decrease discomfort, Diagnostic testing Activity Recommendations Activity Limitations: resume your previous activity . Instructions / Follow-Up Instructions / Follow-Up HOSPITAL FOLLOW UP ON 08/22/2016 @ 11:[address] Michelle Borrego, Internal Medicine [facility] GASTROENTEROLOGY FOLLOW UP ON 08/16/2016 @ 1:00 PM WITH RUPERT Comer Gastroenterology [facility] INCIDENTAL FINDING OF PANCREATIC CYST ONE YEAR FOLLOW UP MRCP IS RECOMMENDED FOR STABILITY Current Hospital Diet Patient's current hospital diet: Low Sodium Diet (2gm Na) Discharge Diet Recommended Diet: Low Sodium Diet (2gm Na) Pending Studies Studies pending at discharge: no Medical Emergencies . Who to Call and When: Medical Emergencies: If at any time you feel your situation is an emergency, please call 911 immediately. . Non-Emergent Contact Non-Emergency issues call your: Primary Care Provider . . "Provider Documentation" section prepared by Leanne Clark. . VTE Core Measure Inpt VTE Proph given/why not?: Yuri Vazquez, SCD's Additional Copies To Anatoliy Meza C.R.N.P. Olson, Michelle Don D.O.
== END 2016-08-15 17:25 | disposition home or self-care (01) | DRG 445 ==
LOC: ENRESERVTM → ENRESERVDT → C.EDB 01:08 → C.MS4W 04:26
PROVIDERS: ADMIT Internal Medicine; ATTEND Hospitalist
DX: K80.50 Calculus of bile duct without cholangitis or cholecystitis without obstruction (principal); I85.10 Secondary esophageal varices without bleeding; K86.2 Cyst of pancreas; K70.31 Alcoholic cirrhosis of liver with ascites; L53.9 Erythematous condition, unspecified; N50.819 Testicular pain, unspecified; D69.59 Other secondary thrombocytopenia; R79.1 Abnormal coagulation profile; F10.21 Alcohol dependence, in remission; Z76.82 Awaiting organ transplant status; Z72.0 Tobacco use; Z79.899 Other long term (current) drug therapy

== ENCOUNTER 2016-11-01 17:34 | Inpatient (IN) | payer OTHER ==
[~2016-11-01] VITALS: Ht 172.7 cm; Wt 76.3 kg
--- NOTE | 2016-11-01 17:49 | EMERGENCY ROOM VISIT NOTE ---
History Report prepared by Brent: Ric Chapin Under the Supervision of: Dr. Cristiano Rai M.D. First contact with patient: 17:46 Chief Complaint: CHEST PAIN Stated Complaint: CHEST PAIN Nursing Triage Summary: pt reports hx of gall bladder pain became worse this AM History of Present Illness The patient is a 41 year old male who presents to the Emergency Room with complaints of persistent chest pain that started around 3 hours ago. He says that he has a history of gallbladder pain, and this is the same pain. The patient states that he is having burning and shooting pain that radiates into his back. He adds that he has been having chills as well. He says that he ate 3 hours before the pain started. The patient notes that he has not tried to eat or drink since then. He says that he was told that he needs a liver transplant from cirrhosis and drinking alcohol, and he is on the transplant list. The patient says that doctors do not want to perform surgery on the gallbladder because then he will need a liver transplant, so they want to do both of those procedures at the same time. The patient follows up in [place] for his liver failure. He states that he was last here for the pain 2 months ago, and was given Morphine. He denies any nausea, vomiting, or shortness of breath. Source of History: patient Onset: 3 hours ago Position: chest Quality: other (gallbladder pain) Timing: other (persistent) Associated Symptoms: + chills, + back pain, No SOB, No nausea, No vomiting Note: No other associated symptoms noted. Review of Systems See HPI for pertinent positives and negatives. A total of ten systems were reviewed and were otherwise negative. Past Medical & Surgical Medical Problems: (1) Alcohol withdrawal seizure (2) Alcoholic cirrhosis (3) Esophageal varices (4) Gall bladder disease (5) History of alcohol abuse (6) History of hyponatremia (7) History of macrocytic anemia (8) History of thrombocytopenia (9) Portal hypertensive gastropathy Surgical Problems: (1) S/P tonsillectomy Family History Asthma MOTHER Diabetes mellitus MOTHER Stroke FATHER Social History Smoking Status: Never Smoker Alcohol Use: other Drug Use: none Marital Status: single Occupation Status: unemployed Current/Historical Medications Scheduled Buspirone Hcl (Buspar), 5 MG PO BID Folic Acid (Folvite), 1 MG PO DAILY Furosemide (Lasix), 20 MG PO DAILY Nadolol (Corgard), 10 MG PO DAILY Omeprazole (Prilosec), 20 MG PO DAILY Potassium Chloride (K-Tabs), 10 MEQ PO DAILY Probiotic Product (Probiotic), 1 DOSE PO DAILY Spironolactone (Aldactone), 25 MG PO DAILY Ursodiol (Ursodiol), 600 MG PO DAILY Scheduled PRN Lactulose (Chronulac), 15 ML PO BID PRN for Constipation Allergies Coded Allergies: Aspirin (Verified Allergy, Unknown, THINS BLOOD, 11/01/16) Physical Exam Vital Signs Date Time Temp Pulse Resp B/P (MAP) Pulse Ox O2 Delivery O2 Flow Rate FiO2 11/01/16 22:20 52 16 110/52 99 Room Air 11/01/16 22:16 73 11/01/16 22:05 Room Air 11/01/16 19:47 52 18 116/68 100 Room Air 11/01/16 19:08 58 20 95/56 97 Room Air 11/01/16 18:47 52 20 96/59 100 Room Air 11/01/16 18:45 100 Room Air 11/01/16 18:38 92/44 11/01/16 18:36 48 20 89/52 100 Room Air 11/01/16 17:41 36.4 52 19 105/57 99 Room Air Physical Exam GENERAL: Awake, alert, fatigued-appearing, mildly uncomfortable, in no acute distress. HENT: Normocephalic, atraumatic. Oropharynx unremarkable. Dry mucous membranes. EYES: Normal conjunctiva. Mild scleral icterus. NECK: Supple. No nuchal rigidity. FROM. No JVD. RESPIRATORY: Clear to auscultation. CARDIAC: Regular rate, normal rhythm. Extremities warm and well perfused. Pulses equal. ABDOMEN: Positive Curry's sign but otherwise no peritoneal signs. Soft, non- distended. No tenderness to palpation. No rebound or guarding. No masses. RECTAL: Deferred. MUSCULOSKELETAL: Chest examination reveals no tenderness. The back is symmetrical on inspection without obvious abnormality. There is no CVA tenderness to palpation. No joint edema. LOWER EXTREMITIES: Calves are equal size bilaterally and non-tender. No edema. No discoloration. NEURO: Normal sensorium. No sensory or motor deficits noted. SKIN: No rash, scant jaundice noted. Medical Decision & Procedures ER Provider Diagnostic Interpretation: X-ray: Per my interpretation, radiologist review. CHEST ONE VIEW PORTABLE CLINICAL HISTORY: sob ATYPICAL CHEST PAIN COMPARISON STUDY: 08/13/2016 FINDINGS: The heart is mildly enlarged. There is no failure. There is no lobar consolidation. There are mild right basilar atelectatic changes.[ No pleural effusions are visualized. IMPRESSION: No active disease in the chest. Electronically signed by: Jose Raul Flores M.D. 11/01/2016 6:26 PM Dictated Date/Time: 11/01/2016 6:25 PM Laboratory Results Test 11/01/16 18:29 11/01/16 20:09 Lactic Acid Level 1.1 mmol/L (0.4-2.0) Magnesium Level 1.8 mg/dl (1.8-2.4) Direct Bilirubin 1.7 mg/dl (0-0.2) Troponin I < 0.015 ng/ml (0-0.045) Lipase 249 U/L (73-393) Thyroid Stimulating Hormone (TSH) 2.700 uIu/ml (0.300-4.500) Prothrombin Time 15.6 SECONDS (9.0-12.0) Prothromb Time International Ratio 1.4 (0.9-1.1) Laboratory results reviewed by me Medications Administered Medications (Trade) Dose Ordered Sig/Lisa Route Start Time Stop Time Status Last Admin Dose Admin Sodium Chloride 1,000 ml @ 999 mls/hr Q1H1M STAT IV 11/01/16 18:04 11/01/16 19:04 DC 11/01/16 18:04 999 MLS/HR Fentanyl Citrate (Fentanyl Inj) 50 mcg NOW STAT IV 11/01/16 18:04 11/01/16 18:06 DC 11/01/16 18:43 50 MCG Fentanyl Citrate (Fentanyl Inj) 100 mcg NOW STAT IV 11/01/16 19:42 11/01/16 19:43 DC 11/01/16 19:46 100 MCG Fentanyl Citrate (Fentanyl Inj) 100 mcg NOW STAT IV 11/01/16 20:44 11/01/16 20:45 DC 11/01/16 20:55 100 MCG Ceftriaxone Sodium (Rocephin Inj) 1 gm NOW STAT IV 11/01/16 21:52 11/01/16 21:54 DC 11/01/16 22:25 1 GM Metronidazole (Flagyl / Nss) 500 mg NOW STAT IV 11/01/16 21:52 11/01/16 21:54 DC 11/01/16 23:15 500 MG Fentanyl Citrate (Fentanyl Inj) 100 mcg NOW STAT IV 11/01/16 21:55 11/01/16 21:56 DC 11/01/16 22:12 100 MCG Sodium Chloride 1,000 ml @ 125 mls/hr Q8H STAT IV 11/01/16 21:55 11/02/16 00:23 DC 11/01/16 22:25 125 MLS/HR ECG Indication: chest pain Rate (beats per minute): 51 Rhythm: sinus bradycardia Findings: no acute ischemic change, other (normal axis) Change: no significant change (compared to Aug 13 2016) ED Course 1753: The patient was evaluated in room C1B. A complete history and physical exam was performed. 1803: Ordered Fentanyl Inj 50 mcg IV, NSS 1000 ml @ 999 mls/hr IV. 1941: Ordered Fentanyl Inj 100 mcg IV. Medical Decision I reviewed the patient's past medical history, medications, and the nursing notes as described above. Differential diagnosis includes but is not limited to: biliary colic vs cholecystis, cholangitis, worsening liver failure, gastritis, ACS. Recent is a 41-year-old gentleman with a competent past medical history of end- stage liver disease secondary to alcoholic cirrhosis currently on the transplant list at [facility] and recent hospitalization for biliary colic and july of this year as to the emergency department with acute onset right upper quadrant pain per history of present illness. Arrival the patient appears uncomfortable, is afebrile, with soft blood pressures systolic in the 90s in the setting of the patient's liver disease. Workup notable for leukocytosis to 14 which is new from his last admission. Otherwise his lactate is within normal limits and LFTs unchanged with INR improvement 1.4 from prior 1.7. Right upper quadrant ultrasound unchanged from previous study in July with question of sludge balls versus mass considering the immobility gallbladder contents. Patient findings were discussed with surgery who was familiar with the patient from last admission do not believe that the patient has cholecystitis as her last admission the patient was observed and showed improvement without intervention. However they will follow the patient during this admission. Recommending GI consultation as well as they are also familiar with the patient from last admission. Patient was discussed with medicine hospitalist will admit the patient. Considering the patient's leukocytosis that is new the setting of this pain, will treat with ceftriaxone and Flagyl empirically while final treatment plan is being determined. Otherwise the patient remains afebrile and hemodynamically stable. Medication Reconcilliation Current Medication List: was personally reviewed by me Blood Pressure Screening Patient's blood pressure: Normal blood pressure Impression Primary Impression: Right upper quadrant abdominal pain Additional Impression: Gallstones Scribe Attestation The scribe's documentation has been prepared under my direction and personally reviewed by me in its entirety. I confirm that the note above accurately reflects all work, treatment, procedures, and medical decision making performed by me. Departure Information Referrals Michelle Borrego D.O. (PCP) Patient Instructions My [facility] Problem Qualifiers
[2016-11-01] MEDS ORDERED: SODIUM CHLORIDE 0.9% 1000ML 1,000 ML IV STA ×2 (18:04→21:55)
[2016-11-01] MEDS ORDERED: FENTANYL CITRATE INJ 50 MCG/1 ML 2 ML VIAL IV STA ×4 (18:04→21:55)
--- NOTE | 2016-11-01 18:27 | DIAGNOSTIC IMAGING REPORT ---
CHEST ONE VIEW PORTABLE CLINICAL HISTORY: sob ATYPICAL CHEST PAIN COMPARISON STUDY: 08/13/2016 FINDINGS: The heart is mildly enlarged. There is no failure. There is no lobar consolidation. There are mild right basilar atelectatic changes.[ No pleural effusions are visualized. IMPRESSION: No active disease in the chest. Electronically signed by: Jose Raul Flores M.D. 11/01/2016 6:26 PM Dictated Date/Time: 11/01/2016 6:25 PM
[2016-11-01 18:42] LABS: BASO % 0.7 %; COMPLETE YES; EOS % 2.4 %; HEMATOCRIT 37.7 % (42-52); IG% 0.3 %; LYMPH % 18.6 %; LYMPH ABS # 2.64 K/uL (1.2-3.4); MEAN CELL VOLUME 101.3 fL (80-100); MEAN CORPUSCULAR HEMOGLOBIN 34.9 pg (25-34); MEAN CORPUSCULAR HGB CONC 34.5 g/dl (32-36); MEAN PLATELET VOLUME 10.6 fL (7.4-10.4); MONO % 14.1 %; NEUT % 63.9 %; PLATELET COUNT 125 K/uL (130-400); RED BLOOD COUNT 3.72 M/uL (4.7-6.1); WHITE BLOOD COUNT 14.16 K/uL (4.8-10.8)
[2016-11-01 19:01] LABS: ALT/SGPT 16 U/L (12-78); BLOOD UREA NITROGEN 13 mg/dl (7-18); BUN/CREATININE RATIO 11.8 (10-20); CALCIUM 9.1 mg/dl (8.5-10.1); CARBON DIOXIDE 27 mmol/L (21-32); CHLORIDE 108 mmol/L (98-107); GLUCOSE 103 mg/dl (70-99); POTASSIUM 4.1 mmol/L (3.5-5.1); SODIUM 142 mmol/L (136-145)
[2016-11-01 19:06] LABS: ALKALINE PHOSPHATASE 184 U/L (45-117); AST/SGOT 32 U/L (15-37)
[2016-11-01] MEDS ORDERED: ACT300 PO (19:21)
[2016-11-01 20:33] LABS: INR 1.4 (0.9-1.1); PROTHROMBIN TIME (PATIENT) 15.6 SECONDS (9.0-12.0)
--- NOTE | 2016-11-01 21:00 | DIAGNOSTIC IMAGING REPORT ---
ABDOMINAL ULTRASOUND, RIGHT UPPER QUADRANT HISTORY: Right upper quadrant abdominal pain.. COMPARISON: Abdominal ultrasound 08/14/2016. MRCP 08/10/2016. FINDINGS: Pancreas: Not well visualized due to overlying bowel gas. Liver: The liver is echogenic consistent with fatty change. A 9 mm cyst within the right hepatic lobe. Gallbladder: No cement change in the lobular hypoechoic structures within the gallbladder neck. No gallbladder wall thickening. The gallbladder is mildly distended. CBD: 9 mm. This remains unchanged. Right kidney: No hydronephrosis. IMPRESSION: No significant change compared to the prior studies. The gallbladder and common bile duct are mildly distended. There are multiple lobular hypoechoic structures within the gallbladder neck. These are nonspecific and could represent impacted sludge balls but are concerning for a mass given the lack of change and immobility. Surgical consultation is recommended. Electronically signed by: Naresh Hayes M.D. 11/01/2016 8:58 PM Dictated Date/Time: 11/01/2016 8:53 PM
[2016-11-01] MEDS ORDERED: CEFTRIAXONE SOD INJ 1 GM ADDVIAL IV STA (21:52)
[2016-11-01] MEDS ORDERED: METRONIDAZOLE 500MG / 100ML NSS IV STA (21:52)
[2016-11-01 22:05] VITALS: Ht 172.7 cm; Wt 76.3 kg
[2016-11-01] MEDS ORDERED: MoRPHine SULFATE 4 MG/ML 1 ML CARP\\VIAL ONE (23:36)
[2016-11-01] MEDS ORDERED: ONDANSETRON INJ 2 MG/ML 2 ML VIAL IV PRN (23:45)
[2016-11-01] MEDS ORDERED: LORAZEPAM 2 MG/ML 1 ML VIAL IV PRN (23:45)
[2016-11-01] MEDS ORDERED: ACETAMINOPHEN 325 MG TAB PO PRN (23:45)
[2016-11-01] MEDS ORDERED: LACTULOSE SYRUP 20 GM/30 ML UDC PO PRN (23:45)
[2016-11-01] MEDS ORDERED: MoRPHine SULFATE 4 MG/ML 1 ML CARP\\VIAL IV ONE (23:45)
[2016-11-01] MEDS ORDERED: PROMETHAZINE HCL INJ 12.5 MG in SODIUM CHLORIDE 0.9% 50ML 50 ML IV PRN (23:45)
[2016-11-01 23:59] LABS: MAGNESIUM 1.8 mg/dl (1.8-2.4)
[2016-11-02 00:15] VITALS: O2SAT 100
[2016-11-02] MEDS: SODIUM CHLORIDE 0.9% 1000ML 1,000 ML IV SCH ×2 (00:29→18:23)
[2016-11-02] MEDS ORDERED: LORAZEPAM INJ 0.5 MG in SYRINGE 0.75 ML IV PRN (00:30)
[2016-11-02] MEDS ORDERED: MAGNESIUM SULFATE 1GM / D5W 1 GM in PREMIXED IN D5W 100 ML IV ONE (01:30)
[2016-11-02] MEDS ORDERED: IV FLUIDS COMPLETED PRN (04:15)
--- NOTE | 2016-11-02 05:41 | HISTORY & PHYSICAL EXAMINATION ---
DATE OF ADMISSION: 11/01/2016 PRIMARY CARE DOCTOR: Dr. Michelle Borrego. CHIEF COMPLAINT: Abdominal pain. HISTORY OF PRESENT ILLNESS: History obtained from patient and records. Medical history significant for alcoholic cirrhosis, past alcohol abuse, Chronic hyponatremia, chronic thrombocytopenia and esophageal varices, Chronic anemia, baseline hemoglobin 9-10. history of MRSA. Two admissions in July, for recurrent right upper quadrant pain, biliary colic. Px evaluated by surgery. No indication for emergent cholecystectomy. As per discharge note, if patient complains of biliary colic in the future, cholecystectomy should be done at a tertiary care center. Yesterday afternoon, patient noted recurrence of achy right upper quadrant pain going to his chest, burning with nausea, no vomiting. Good bowel movement. No fever and no chills. Similar to gallbladder attacks in the past. Intractable pain in the Emergency Room. MEDICAL HISTORY: As above. SURGERIES: Tonsillectomy. HOME MEDICATIONS: Include Aldactone, ursodiol, BuSpar, Folvite, Lasix, Prilosec, probiotic, K-Tab. ALLERGIES: ASPIRIN. FAMILY HISTORY: Family history of diabetes, stroke. PERSONAL AND SOCIAL HISTORY: Nonsmoker, past alcohol abuse, unemployed. REVIEW OF SYSTEMS: As per HPI, all other ROS negative. PHYSICAL EXAMINATION: VITAL SIGNS: Blood pressure was noted to be 105/52, pulse rate 62, RR 19, temperature 37, sats 98 on room air. GENERAL: Noted to be uncomfortable. No respiratory distress. SKIN: Pallor. HEENT: Pale palpebral conjunctivae. Dry mucosa. NECK: No JVD. Supple. CHEST: Clear to auscultation. HEART: Regular rate and rhythm. ABDOMEN: Right upper quadrant tenderness. EXTREMITIES: No edema. No tenderness NEUROLOGIC: No gross focality. LABS: Hemoglobin 13, white cell count 14, platelets noted to be 125. Sodium 140, potassium 4.1, chloride 108, CO2 27, BUN 30, creatinine 1.1, glucose 103. Total bilirubin 3.3, direct creatinine 1.7, alkaline phosphatase 184. trop 0 Gallbladder ultrasound showed no significant change from our prior studies. Mildly distended gallbladder, common bile duct, multiple lobular hypoechoic structures within gallbladder neck which represent impacted sludge balls, but are concerning for mass, given lack of change in mobility. Chest x-ray showed no active disease. EKG as per my interpretation, rate 50, sinus bradycardia. ASSESSMENT: 1. Recurrent biliary colic question of cholecystitis. No sepsis. 2. Alcoholic cirrhosis, no overt decompensation. 3. Chronic anemia, hemoglobin is better than baseline, suspect hemoconcentration. PLAN: Observation [facility] Analgesia, IV fluids HIDA scan in the morning. If HIDA scan shows cholecystitis : initiate antibiotics. May need to contact General Surgery a tertiary care center given patient comorbidities and patient's potential candidacy for liver transplant in [place] - as per ER physician's conversation with [facility] surgeon content production specialist. DVT prophylaxis, SCDs RE thrombocytopenia. Full code. MTDD
[2016-11-02 06:27] LABS: MEAN CELL VOLUME 100.3 fL (80-100); MEAN CORPUSCULAR HEMOGLOBIN 34.2 pg (25-34); MEAN CORPUSCULAR HGB CONC 34.1 g/dl (32-36); RED BLOOD COUNT 3.39 M/uL (4.7-6.1); WHITE BLOOD COUNT 9.29 K/uL (4.8-10.8)
[2016-11-02 07:02] LABS: MEAN PLATELET VOLUME 10.6 fL (7.4-10.4); PLATELET COUNT 97 K/uL (130-400)
[2016-11-02 07:05] LABS: BUN/CREATININE RATIO 11.7 (10-20); CALCIUM 8.3 mg/dl (8.5-10.1); CREATININE 0.9 mg/dl (0.60-1.40); POTASSIUM 3.6 mmol/L (3.5-5.1)
[2016-11-02 07:06] LABS: BASO % 0.4 %; BASO ABS # 0.04 K/uL (0-0.2); COMPLETE YES; IG% 0.2 %; LYMPH % 18.6 %; LYMPH ABS # 1.73 K/uL (1.2-3.4); MONO % 16.9 %; NEUT % 61.9 %; PLT ESTIMATE DECREASED
[2016-11-02 07:18] VITALS: BP 103/58; PULSE 82; TEMP 37; O2SAT 99
[2016-11-02 07:22] LABS: ALB/GLOB RATIO 0.6 (0.9-2)
[2016-11-02] MEDS: URSODIOL 300 MG CAP PO SCH (08:54)
[2016-11-02] MEDS: NADOLOL 40 MG TAB PO SCH (08:54)
[2016-11-02] MEDS: PANTOprazole SOD 40 MG TAB PO SCH (08:55)
[2016-11-02] MEDS ORDERED: PROBIOTIC PRODUCT PO SCH (09:00)
[2016-11-02 09:22] VITALS: BP 102/60; PULSE 81; TEMP 37
[2016-11-02] MEDS: MoRPHine SULFATE 4 MG/ML 1 ML CARP\\VIAL IV PRN (11:47)
--- NOTE | 2016-11-02 12:35 | DIAGNOSTIC IMAGING REPORT ---
NUCLEAR MEDICINE HEPATOBILIARY STUDY CLINICAL HISTORY: Right upper quadrant pain. COMPARISON STUDY: Biliary ultrasound dated 11/01/2016 FINDINGS: The patient was injected with 4.8 mCi of technetium 99m Choletec. Anterior imaging was performed. There was normal passage of activity into small bowel. There is bile reflux into the stomach. The gallbladder was not visualized at 1 hour. The patient was administered 4 mg of intravenous morphine. Additional imaging was obtained for an hour. The gallbladder was visualized on the 90 minute image. IMPRESSION: 1. Delayed visualization of the gallbladder, consistent with chronic cholecystitis. 2. No evidence of cystic duct obstruction 3. Bile reflux into the stomach Electronically signed by: Jose Raul Flores M.D. 11/02/2016 12:33 PM Dictated Date/Time: 11/02/2016 12:29 PM
--- NOTE | 2016-11-02 14:31 | Surgery Consultation ---
Consultation Date of Consultation: Nov 02, 2016. Attending Physician: Leanne Clark M.D. History of Present Illness pt known to me from prior admissions. prior alcoholic with cirrhosis...has had RUQ pain in past. had been doing well since last admission until yesterday began having pain similar to last episode. Pain improved today. no n/v. pt [place] [facility] [place]. next appnt is in November. Past Medical/Surgical History Medical Problems: (1) Biliary colic Status: Acute (2) Biliary obstruction Status: Acute (3) Gallstones Status: Acute (4) Hyperbilirubinemia Status: Acute (5) Intractable abdominal pain Status: Acute (6) Right otitis media Status: Acute (7) Right upper quadrant abdominal pain Status: Acute (8) RUQ abdominal pain Status: Acute Family History Asthma MOTHER Diabetes mellitus MOTHER Stroke FATHER Social History Smoking Status: Never Smoker Alcohol Use: prior alcoholism. none now. Drug Use: none Marital Status: single Occupation Status: unemployed Allergies Coded Allergies: Aspirin (Verified Allergy, Unknown, THINS BLOOD, 11/01/16) Home Medications Scheduled Buspirone Hcl (Buspar), 5 MG PO BID Folic Acid (Folvite), 1 MG PO DAILY Furosemide (Lasix), 20 MG PO DAILY Nadolol (Corgard), 10 MG PO DAILY Omeprazole (Prilosec), 20 MG PO DAILY Potassium Chloride (K-Tabs), 10 MEQ PO DAILY Probiotic Product (Probiotic), 1 DOSE PO DAILY Spironolactone (Aldactone), 25 MG PO DAILY Ursodiol (Ursodiol), 600 MG PO DAILY Scheduled PRN Lactulose (Chronulac), 15 ML PO BID PRN for Constipation Current Inpatient Medications Current Inpatient Medications Medications (Trade) Dose Ordered Sig/Lisa Route Start Time Stop Time Status Last Admin Dose Admin Morphine Sulfate (MoRPHine SULFATE INJ) 4 mg Q3H PRN IV 11/01/16 23:45 11/15/16 23:44 11/02/16 11:47 4 MG Oxycodone HCl (Roxicodone Immediate Rel Tab) `1-2 tabs for pain 1 tab ... Q4H PRN PO 11/01/16 23:45 11/15/16 23:44 Acetaminophen (Tylenol Tab) 325 mg Q6H PRN PO 11/01/16 23:45 12/01/16 23:44 Buspirone HCl (Buspar Tab) 5 mg BID PO 11/02/16 09:00 12/02/16 08:59 11/02/16 08:54 5 MG Folic Acid (Folvite Tab) 1 mg DAILY PO 11/02/16 09:00 12/02/16 08:59 11/02/16 08:54 1 MG Lactulose (Chronulac Syrup) 10 gm BID PRN PO 11/01/16 23:45 12/01/16 23:44 Nadolol (Corgard Tab) 10 mg DAILY PO 11/02/16 09:00 12/02/16 08:59 11/02/16 08:54 10 MG Ursodiol (Actigall Cap) 600 mg DAILY PO 11/02/16 09:00 12/02/16 08:59 11/02/16 08:54 600 MG Pantoprazole Sodium (Protonix Tab) 40 mg QAM PO 11/02/16 09:00 12/02/16 08:59 11/02/16 08:55 40 MG Ondansetron HCl (Zofran Inj) 4 mg Q6H PRN IV 11/01/16 23:45 12/01/16 23:44 Promethazine HCl 12.5 mg/Sodium Chloride 50.5 ml @ 204 mls/hr Q6H PRN IV 11/01/16 23:45 12/01/16 23:44 Sodium Chloride 1,000 ml @ 60 mls/hr [id number] IV 11/02/16 00:30 12/02/16 00:29 11/02/16 00:29 60 MLS/HR Lorazepam 0.5 mg/ Syringe 1 ml @ 1 mls/min Q4H PRN IV 11/02/16 00:30 12/02/16 00:29 Miscellaneous (Iv Fluids Completed) 1 ea PRN PRN N/A 11/02/16 04:15 11/02/17 04:14 Review of Systems Abdomen: + pain Physical Exam Date Time Temp Pulse Resp B/P (MAP) Pulse Ox O2 Delivery O2 Flow Rate FiO2 11/02/16 09:22 37.0 81 15 102/60 (74) Room Air 11/02/16 07:45 Room Air 11/02/16 07:18 37.0 82 14 103/58 (73) 99 Room Air 11/02/16 00:15 100 Room Air 11/01/16 23:42 68 18 109/61 99 Room Air 11/01/16 22:20 52 16 110/52 99 Room Air 11/01/16 22:16 73 11/01/16 22:05 Room Air 11/01/16 19:47 52 18 116/68 100 Room Air 11/01/16 19:08 58 20 95/56 97 Room Air 11/01/16 18:47 52 20 96/59 100 Room Air 11/01/16 18:45 100 Room Air 11/01/16 18:38 92/44 11/01/16 18:36 48 20 89/52 100 Room Air 11/01/16 17:41 36.4 52 19 105/57 99 Room Air General Appearance: no apparent distress Head: normocephalic, atraumatic Eyes: PERRL, EOMI ENT: hearing grossly normal Neck: supple, no JVD Respiratory/Chest: no respiratory distress, no accessory muscle use Abdomen/GI: soft, + pertinent finding (mild RUQ ttp. ) Neurologic/Psych: alert, oriented x 3 Laboratory Results Last 24 Hours Test 11/01/16 18:29 11/01/16 20:09 11/02/16 06:05 White Blood Count 14.16 K/uL 9.29 K/uL Red Blood Count 3.72 M/uL 3.39 M/uL Hemoglobin 13.0 g/dL 11.6 g/dL Hematocrit 37.7 % 34.0 % Mean Corpuscular Volume 101.3 fL 100.3 fL Mean Corpuscular Hemoglobin 34.9 pg 34.2 pg Mean Corpuscular Hemoglobin Concent 34.5 g/dl 34.1 g/dl Platelet Count 125 K/uL 97 K/uL Mean Platelet Volume 10.6 fL 10.6 fL Neutrophils (%) (Auto) 63.9 % 61.9 % Lymphocytes (%) (Auto) 18.6 % 18.6 % Monocytes (%) (Auto) 14.1 % 16.9 % Eosinophils (%) (Auto) 2.4 % 2.0 % Basophils (%) (Auto) 0.7 % 0.4 % Neutrophils # (Auto) 9.04 K/uL 5.74 K/uL Lymphocytes # (Auto) 2.64 K/uL 1.73 K/uL Monocytes # (Auto) 2.00 K/uL 1.57 K/uL Eosinophils # (Auto) 0.34 K/uL 0.19 K/uL Basophils # (Auto) 0.10 K/uL 0.04 K/uL RDW Standard Deviation 55.5 fL 54.2 fL RDW Coefficient of Variation 15.0 % 14.8 % Immature Granulocyte % (Auto) 0.3 % 0.2 % Immature Granulocyte # (Auto) 0.04 K/uL 0.02 K/uL Sodium Level 142 mmol/L 140 mmol/L Potassium Level 4.1 mmol/L 3.6 mmol/L Chloride Level 108 mmol/L 108 mmol/L Carbon Dioxide Level 27 mmol/L 25 mmol/L Anion Gap 7.0 mmol/L 7.0 mmol/L Blood Urea Nitrogen 13 mg/dl 11 mg/dl Creatinine 1.10 mg/dl 0.90 mg/dl Est Creatinine Clear Calc Drug Dose 83.8 ml/min 102.4 ml/min Estimated GFR () 94.8 120.8 Estimated GFR (Non- 81.8 104.2 BUN/Creatinine Ratio 11.8 11.7 Random Glucose 103 mg/dl 134 mg/dl Lactic Acid Level 1.1 mmol/L Calcium Level 9.1 mg/dl 8.3 mg/dl Magnesium Level 1.8 mg/dl Total Bilirubin 3.3 mg/dl 2.7 mg/dl Direct Bilirubin 1.7 mg/dl Aspartate Amino Transf (AST/SGOT) 32 U/L 26 U/L Alanine Aminotransferase (ALT/SGPT) 16 U/L 17 U/L Alkaline Phosphatase 184 U/L 160 U/L Troponin I < 0.015 ng/ml Total Protein 7.2 gm/dl 6.4 gm/dl Albumin 2.8 gm/dl 2.3 gm/dl Lipase 249 U/L Thyroid Stimulating Hormone (TSH) 2.700 uIu/ml Prothrombin Time 15.6 SECONDS Prothromb Time International Ratio 1.4 Platelet Estimate DECREASED Globulin 4.1 gm/dl Albumin/Globulin Ratio 0.6 Assessment & Plan 1. alcoholic cirrhosis with chronic cholecystitis HIDA negative for acute cholecystitis b/c of prior MELD score the rec by GI was to hold on lap royal especially in light of him trying to obtain a liver transplant pt feeling better already ok to have clears labs improved as well. would only perform surgery as last resort all things considered. pt understands/ is agreeable.
--- NOTE | 2016-11-02 14:55 | Progress Note ---
Internal Med Progress Note Date of Service: Nov 02, 2016. Provider Documentation: SUBJECTIVE: RUQ pain much improved no nausea , no fever or chills started on clears by Surgery , tolerating well OBJECTIVE: Vital Signs-as noted below Exam: General-no sign of discomfort Eyes-mildly icteric sclera ENT-NAd Neck-no JVD Lungs-CTA Heart-regular S1/S2 Abdomen-soft, non tender . minimum pain on RUQ , no rebound Extremities-no edema , no rash Neuro-AAO x3 , no focal deficit Lab data as noted below. ASSESSMENT & PLAN: CHRONIC CHOLECYSTIS : presented with RUQ pain , symptom has improved HIDA scan shows delayed visualization of gall bladder at 90 mins suggestive of chronic cholecystitis ; LFT's wnl , no fever or chills no leukocytosis appreciate input form Surgery no indication of surgical procedure now diet advanced to clears cont to follow pt will need continued follow up with transplant team in [place] for any abdominal procedure HX OF ALCOHOLIC CIRRHOSIS: As per previous GI consult calculated MELD ( model of end stage liver disease ) score 17 pt been evaluated at [facility] for possible liver transplant no evidence of hepatic decompensation cont out pt meds CHRONIC ANEMIA : due to chronic liver disease no evidence of GI bleed monitor DVT PROPHYLAXIS scd and teds avoid anticoagulation for liver Cirrohis , hx of esophageal varices , thrombocytopenia DISPOSITION to home when medically stable will need continued follow up with liver transplant team in [facility] Vital Signs: Date Time Temp Pulse Resp B/P (MAP) Pulse Ox O2 Delivery O2 Flow Rate FiO2 11/02/16 09:22 37.0 81 15 102/60 (74) Room Air 11/02/16 07:45 Room Air 11/02/16 07:18 37.0 82 14 103/58 (73) 99 Room Air 11/02/16 00:15 100 Room Air 11/01/16 23:42 68 18 109/61 99 Room Air 11/01/16 22:20 52 16 110/52 99 Room Air 11/01/16 22:16 73 11/01/16 22:05 Room Air 11/01/16 19:47 52 18 116/68 100 Room Air 11/01/16 19:08 58 20 95/56 97 Room Air 11/01/16 18:47 52 20 96/59 100 Room Air 11/01/16 18:45 100 Room Air 11/01/16 18:38 92/44 11/01/16 18:36 48 20 89/52 100 Room Air 11/01/16 17:41 36.4 52 19 105/57 99 Room Air Lab Results: Results Past 24 Hours Test 11/01/16 18:29 11/01/16 20:09 11/02/16 06:05 Range/Units White Blood Count 14.16 9.29 4.8-10.8 K/uL Red Blood Count 3.72 3.39 4.7-6.1 M/uL Hemoglobin 13.0 11.6 14.0-18.0 g/dL Hematocrit 37.7 34.0 42-52 % Mean Corpuscular Volume 101.3 100.3 80-100 fL Mean Corpuscular Hemoglobin 34.9 34.2 25-34 pg Mean Corpuscular Hemoglobin Concent 34.5 34.1 32-36 g/dl Platelet Count 125 97 130-400 K/uL Mean Platelet Volume 10.6 10.6 7.4-10.4 fL Neutrophils (%) (Auto) 63.9 61.9 % Lymphocytes (%) (Auto) 18.6 18.6 % Monocytes (%) (Auto) 14.1 16.9 % Eosinophils (%) (Auto) 2.4 2.0 % Basophils (%) (Auto) 0.7 0.4 % Neutrophils # (Auto) 9.04 5.74 1.4-6.5 K/uL Lymphocytes # (Auto) 2.64 1.73 1.2-3.4 K/uL Monocytes # (Auto) 2.00 1.57 0.11-0.59 K/uL Eosinophils # (Auto) 0.34 0.19 0-0.5 K/uL Basophils # (Auto) 0.10 0.04 0-0.2 K/uL RDW Standard Deviation 55.5 54.2 36.4-46.3 fL RDW Coefficient of Variation 15.0 14.8 11.5-14.5 % Immature Granulocyte % (Auto) 0.3 0.2 % Immature Granulocyte # (Auto) 0.04 0.02 0.00-0.02 K/uL Sodium Level 142 140 136-145 mmol/L Potassium Level 4.1 3.6 3.5-5.1 mmol/L Chloride Level 108 108 98-107 mmol/L Carbon Dioxide Level 27 25 21-32 mmol/L Anion Gap 7.0 7.0 3-11 mmol/L Blood Urea Nitrogen 13 11 7-18 mg/dl Creatinine 1.10 0.90 0.60-1.40 mg/dl Est Creatinine Clear Calc Drug Dose 83.8 102.4 ml/min Estimated GFR () 94.8 120.8 Estimated GFR (Non- 81.8 104.2 BUN/Creatinine Ratio 11.8 11.7 10-20 Random Glucose 103 134 70-99 mg/dl Lactic Acid Level 1.1 0.4-2.0 mmol/L Calcium Level 9.1 8.3 8.5-10.1 mg/dl Magnesium Level 1.8 1.8-2.4 mg/dl Total Bilirubin 3.3 2.7 0.2-1 mg/dl Direct Bilirubin 1.7 0-0.2 mg/dl Aspartate Amino Transf (AST/SGOT) 32 26 15-37 U/L Alanine Aminotransferase (ALT/SGPT) 16 17 12-78 U/L Alkaline Phosphatase 184 160 45-117 U/L Troponin I < 0.015 0-0.045 ng/ml Total Protein 7.2 6.4 6.4-8.2 gm/dl Albumin 2.8 2.3 3.4-5.0 gm/dl Lipase 249 73-393 U/L Thyroid Stimulating Hormone (TSH) 2.700 0.300-4.500 uIu/ml Prothrombin Time 15.6 9.0-12.0 SECONDS Prothromb Time International Ratio 1.4 0.9-1.1 Platelet Estimate DECREASED Globulin 4.1 2.5-4.0 gm/dl Albumin/Globulin Ratio 0.6 0.9-2 Microbiology Results 11/01/16 Blood Culture, Received Pending 11/01/16 Blood Culture, Received Pending
--- NOTE | 2016-11-02 15:09 | Discharge Instructions ---
Discharge Instructions Date of Service Nov 02, 2016. Admission Reason for Admission: Right Upper Quadrant Abdominal Pain Discharge Discharge Diagnosis / Problem: CHRONIC CHOLECYSTITIS Discharge Goals Goal(s): Decrease discomfort, Improve disease control, Diagnostic testing Activity Recommendations Activity Limitations: resume your previous activity . Instructions / Follow-Up Instructions / Follow-Up HOSPITAL FOLLOW UP : 11/12/2016 11:20 AM Michelle Borrego DO Internal Medicine [facility] L[facility] TRANSPLANT CL[facility] FOLLOW UP : 12/16/2016 9:00 [facility] current [facility] diet: Clear Liquid Diet Discharge Diet Recommended Diet: Low Sodium Diet (2gm Na), Low Fat Diet Pending Studies Studies pending at discharge: no Medical Emergencies . Who to Call and When: Medical Emergencies: If at any time you feel your situation is an emergency, please call 911 immediately. . Non-Emergent Contact Non-Emergency issues call your: Primary Care Provider . . "Provider Documentation" section prepared by Leanne Clark. . VTE Core Measure Inpt VTE Proph given/why not?: Yuri Vazquez, SCD's
[2016-11-02 15:27] VITALS: BP 114/72; PULSE 81; TEMP 37.2; O2SAT 99
[2016-11-02 16:00] VITALS: O2SAT 99
[2016-11-02] MEDS ORDERED: VANCOMYCIN INJ 1,000 MG in SODIUM CHLORIDE 0.9% 250ML 250 ML IV STA (17:40)
--- NOTE | 2016-11-02 17:43 | Progress Note ---
Progress Note Date of Service Nov 02, 2016. Progress Note BLOOD CULTURE 1/2 BOTTLE : gram positive cocci , empirically started on IV Vancomycin repeat culture ordered to assess for possible contamination ordered MRSA screen ID eval requested
--- NOTE | 2016-11-02 18:26 | Pharmacy Progress Note ---
Pharmacy Antibiotic Consult Date of Service: Nov 02, 2016. Pharmacy Dosing Scope Pharmacy is consulted to initiate VANCOMYCIN IV dosing therapy, order appropriate labs and adjust drug dose/frequency. Subjective The patient is a 41 year old male admitted on Nov 01, 2016 at 23:18. Objective Height (Feet): 5 Height (Inches): 8.00 Weight (Kilograms): 76.300 Lab Results (24hrs): Test 11/01/16 18:29 11/01/16 20:09 11/02/16 06:05 White Blood Count 14.16 K/uL (4.8-10.8) 9.29 K/uL (4.8-10.8) Red Blood Count 3.72 M/uL (4.7-6.1) 3.39 M/uL (4.7-6.1) Hemoglobin 13.0 g/dL (14.0-18.0) 11.6 g/dL (14.0-18.0) Hematocrit 37.7 % (42-52) 34.0 % (42-52) Mean Corpuscular Volume 101.3 fL (80-100) 100.3 fL (80-100) Mean Corpuscular Hemoglobin 34.9 pg (25-34) 34.2 pg (25-34) Mean Corpuscular Hemoglobin Concent 34.5 g/dl (32-36) 34.1 g/dl (32-36) Platelet Count 125 K/uL (130-400) 97 K/uL (130-400) Mean Platelet Volume 10.6 fL (7.4-10.4) 10.6 fL (7.4-10.4) Neutrophils (%) (Auto) 63.9 % 61.9 % Lymphocytes (%) (Auto) 18.6 % 18.6 % Monocytes (%) (Auto) 14.1 % 16.9 % Eosinophils (%) (Auto) 2.4 % 2.0 % Basophils (%) (Auto) 0.7 % 0.4 % Neutrophils # (Auto) 9.04 K/uL (1.4-6.5) 5.74 K/uL (1.4-6.5) Lymphocytes # (Auto) 2.64 K/uL (1.2-3.4) 1.73 K/uL (1.2-3.4) Monocytes # (Auto) 2.00 K/uL (0.11-0.59) 1.57 K/uL (0.11-0.59) Eosinophils # (Auto) 0.34 K/uL (0-0.5) 0.19 K/uL (0-0.5) Basophils # (Auto) 0.10 K/uL (0-0.2) 0.04 K/uL (0-0.2) RDW Standard Deviation 55.5 fL (36.4-46.3) 54.2 fL (36.4-46.3) RDW Coefficient of Variation 15.0 % (11.5-14.5) 14.8 % (11.5-14.5) Immature Granulocyte % (Auto) 0.3 % 0.2 % Immature Granulocyte # (Auto) 0.04 K/uL (0.00-0.02) 0.02 K/uL (0.00-0.02) Sodium Level 142 mmol/L (136-145) 140 mmol/L (136-145) Potassium Level 4.1 mmol/L (3.5-5.1) 3.6 mmol/L (3.5-5.1) Chloride Level 108 mmol/L (98-107) 108 mmol/L (98-107) Carbon Dioxide Level 27 mmol/L (21-32) 25 mmol/L (21-32) Anion Gap 7.0 mmol/L (3-11) 7.0 mmol/L (3-11) Blood Urea Nitrogen 13 mg/dl (7-18) 11 mg/dl (7-18) Creatinine 1.10 mg/dl (0.60-1.40) 0.90 mg/dl (0.60-1.40) Est Creatinine Clear Calc Drug Dose 83.8 ml/min 102.4 ml/min Estimated GFR () 94.8 120.8 Estimated GFR (Non- 81.8 104.2 BUN/Creatinine Ratio 11.8 (10-20) 11.7 (10-20) Random Glucose 103 mg/dl (70-99) 134 mg/dl (70-99) Lactic Acid Level 1.1 mmol/L (0.4-2.0) Calcium Level 9.1 mg/dl (8.5-10.1) 8.3 mg/dl (8.5-10.1) Magnesium Level 1.8 mg/dl (1.8-2.4) Total Bilirubin 3.3 mg/dl (0.2-1) 2.7 mg/dl (0.2-1) Direct Bilirubin 1.7 mg/dl (0-0.2) Aspartate Amino Transf (AST/SGOT) 32 U/L (15-37) 26 U/L (15-37) Alanine Aminotransferase (ALT/SGPT) 16 U/L (12-78) 17 U/L (12-78) Alkaline Phosphatase 184 U/L (45-117) 160 U/L (45-117) Troponin I < 0.015 ng/ml (0-0.045) Total Protein 7.2 gm/dl (6.4-8.2) 6.4 gm/dl (6.4-8.2) Albumin 2.8 gm/dl (3.4-5.0) 2.3 gm/dl (3.4-5.0) Lipase 249 U/L (73-393) Thyroid Stimulating Hormone (TSH) 2.700 uIu/ml (0.300-4.500) Prothrombin Time 15.6 SECONDS (9.0-12.0) Prothromb Time International Ratio 1.4 (0.9-1.1) Platelet Estimate DECREASED Globulin 4.1 gm/dl (2.5-4.0) Albumin/Globulin Ratio 0.6 (0.9-2) Micro Results: * 11/01/16 -- Blood Cx x 2 -- GPC in one * 11/02/16 -- Blood Cx x 2 -- pending Assessment & Plan 41yo male ordered VANCOMYCIN for bacteremia (GPC in 1/4 blood cx). Renal function is good. VANCOMYCIN: * Loading dose: VANCOMYCIN 1900mg IV X 1 dose then VANCOMYCIN 1200mg IV every 10 hours * Estimated Pk parameters: Vd ~0.7 L/kg Ke ~0.087 t1/2 ~8 hours * Goal trough level estimate: between 15 - 20 mcg/mL. * Trough level has been ordered for: @ 0000. Pharmacy will continue to follow and will adjust dose/frequency as necessary. Thank you
[2016-11-02] MEDS ORDERED: VANCOMYCIN CONSULT ACTIVE PRN (18:30)
[2016-11-02] MEDS ORDERED: VANCOMYCIN INJ 1,900 MG in SODIUM CHLORIDE 0.9% 500ML 500 ML IV ONE (18:30)
[2016-11-02] MEDS: OXYCODONE HCL IR 5 MG TAB (IMMEDIATE RELEASE) PO PRN (20:30)
[2016-11-02 22:59] VITALS: BP 110/62; PULSE 74; TEMP 37.2; O2SAT 97
[2016-11-03] MEDS: OXYCODONE HCL IR 5 MG TAB (IMMEDIATE RELEASE) PO PRN ×2 (01:06→18:34)
[2016-11-03] MEDS: VANCOMYCIN INJ 1,200 MG in SODIUM CHLORIDE 0.9% 250ML 250 ML IV SCH ×2 (03:38→13:28)
[2016-11-03 07:03] LABS: BUN/CREATININE RATIO 10.3 (10-20); CALCIUM 8.3 mg/dl (8.5-10.1); CREATININE 0.75 mg/dl (0.60-1.40); POTASSIUM 3.6 mmol/L (3.5-5.1)
[2016-11-03 07:13] LABS: ALB/GLOB RATIO 0.6 (0.9-2)
[2016-11-03 07:17] VITALS: BP 104/55; PULSE 69; TEMP 37; O2SAT 97
[2016-11-03] MEDS: FUROSEMIDE 20 MG TAB PO SCH (08:08)
[2016-11-03] MEDS: PANTOprazole SOD 40 MG TAB PO SCH (08:09)
[2016-11-03] MEDS: POTASSIUM CHLORIDE 10 MEQ TABCR PO SCH (08:09)
[2016-11-03] MEDS: SPIRONOLACTONE 25 MG TAB PO SCH (08:10)
[2016-11-03] MEDS: NADOLOL 40 MG TAB PO SCH (08:10)
[2016-11-03] MEDS: URSODIOL 300 MG CAP PO SCH (08:12)
--- NOTE | 2016-11-03 10:12 | Surgery Progress Note ---
Surgery Progress Note Date of Service Nov 03, 2016. Subjective feeling better. abdominal pain essentially resolved. "hungry". tolerated eggs / toast for breakfast. Objective Vital Signs: Date Time Temp Pulse Resp B/P (MAP) Pulse Ox O2 Delivery O2 Flow Rate FiO2 11/03/16 07:17 37.0 69 16 104/55 (71) 97 Room Air 11/02/16 22:59 37.2 74 16 110/62 (78) 97 Room Air 11/02/16 20:00 Room Air 11/02/16 16:00 99 Room Air 11/02/16 15:27 37.2 81 18 114/72 (86) 99 Room Air General Appearance: no apparent distress Respiratory/Chest: no respiratory distress, no accessory muscle use Abdomen: non distended, soft, + pertinent finding (minimal upper abdominal tenderness) Laboratory Results: Results Past 24 Hours Test 11/03/16 05:14 Range/Units Sodium Level 140 136-145 mmol/L Potassium Level 3.6 3.5-5.1 mmol/L Chloride Level 108 98-107 mmol/L Carbon Dioxide Level 24 21-32 mmol/L Anion Gap 8.0 3-11 mmol/L Blood Urea Nitrogen 8 7-18 mg/dl Creatinine 0.75 0.60-1.40 mg/dl Est Creatinine Clear Calc Drug Dose 122.8 ml/min Estimated GFR () 130.2 Estimated GFR (Non- 112.4 BUN/Creatinine Ratio 10.3 10-20 Random Glucose 84 70-99 mg/dl Calcium Level 8.3 8.5-10.1 mg/dl Total Bilirubin 3.9 0.2-1 mg/dl Aspartate Amino Transf (AST/SGOT) 24 15-37 U/L Alanine Aminotransferase (ALT/SGPT) 14 12-78 U/L Alkaline Phosphatase 120 45-117 U/L Total Protein 5.8 6.4-8.2 gm/dl Albumin 2.1 3.4-5.0 gm/dl Globulin 3.7 2.5-4.0 gm/dl Albumin/Globulin Ratio 0.6 0.9-2 Microbiology Results 11/02/16 Blood Culture, Received Pending 11/02/16 Blood Culture, Received Pending 11/03/16 MRSA DNA Surveillance Screen - Final, Complete Specimen Negative for MRSA by DNA Probe Assessment & Plan clinically improved no surgery indicated at this time will sign off/call if needed pt has appointment with Transplant team in [place] in November.
[2016-11-03] MEDS: SODIUM CHLORIDE 0.9% 1000ML 1,000 ML IV SCH (10:31)
--- NOTE | 2016-11-03 12:29 | Progress Note ---
Medicine Progress Note Date & Time of Visit: Nov 03, 2016 at 12:05. Subjective Pt was seen and examined Lying in bed comfortable watching TV Pt said that he does not have any abdominal pain He tolerates diet Denies any chest pain, palpitation, dizziness, SOB and fever Objective Last 8 Hrs Date Time Temp Pulse Resp B/P (MAP) Pulse Ox O2 Delivery O2 Flow Rate FiO2 11/03/16 07:17 37.0 69 16 104/55 (71) 97 Room Air Physical Exam: General- No acute distress Head- atraumatic Eyes- PERRL, EOMI ENT- oropharynx clear Neck- supple, no JVD Lungs- No wheezing, No rales Heart- regular rhythm; no murmur Abdomen- normal bowel sounds, nontender Extremities- no pretibial edema, no calf tenderness Neuro- alert, oriented x 3; PERRL, EOMI; no facial palsy Skin- warm & dry Laboratory Results: Last 24 Hours Test 11/03/16 05:14 Sodium Level 140 mmol/L Potassium Level 3.6 mmol/L Chloride Level 108 mmol/L Carbon Dioxide Level 24 mmol/L Anion Gap 8.0 mmol/L Blood Urea Nitrogen 8 mg/dl Creatinine 0.75 mg/dl Est Creatinine Clear Calc Drug Dose 122.8 ml/min Estimated GFR () 130.2 Estimated GFR (Non- 112.4 BUN/Creatinine Ratio 10.3 Random Glucose 84 mg/dl Calcium Level 8.3 mg/dl Total Bilirubin 3.9 mg/dl Aspartate Amino Transf (AST/SGOT) 24 U/L Alanine Aminotransferase (ALT/SGPT) 14 U/L Alkaline Phosphatase 120 U/L Total Protein 5.8 gm/dl Albumin 2.1 gm/dl Globulin 3.7 gm/dl Albumin/Globulin Ratio 0.6 Date/Time Source Procedure Growth Status 11/02/16 18:40 Blood Blood Culture Pending Received 11/02/16 18:31 Blood Blood Culture Pending Received 11/03/16 01:11 Nasal MRSA DNA Surveillance Screen - Final Specimen Negative for MRSA by DNA Probe Complete Assessment & Plan CHRONIC CHOLECYSTIS : Presented with RUQ pain , HIDA scan showed delayed visualization of the gallbladder, consistent with chronic cholecystitis and no evidence of cystic duct obstruction Afebrile, WBC trending down to normal Surgery on board and recommended conservative management no indication of surgical procedure at this time ( MELD SCORE 15 with a 6% 3month mortality) Tolerated diet, now advanced to low fat If surgery needed, he will need to be transferred to a tertiary center Bacteremia Blood cx grows goag logan bhatt not [place] On IV Vanco ID consulted Repeat blood cx pending HX OF ALCOHOLIC CIRRHOSIS: As per previous GI consult calculated MELD ( model of end stage liver disease ) score 15 with a 6% 3month mortality Pt has a follow up appointment in [place] for possible liver transplant no evidence of hepatic decompensation CHRONIC ANEMIA due to chronic liver disease no evidence of GI bleed Hbg 11.6 stable DVT PROPHYLAXIS scd and teds avoid anticoagulation for liver Cirrohis , hx of esophageal varices , thrombocytopenia DISPOSITION Discharge home when medically stable Follow up with liver transplant team in [facility] Consultants: Surgery ID Current Inpatient Medications: Current Inpatient Medications Medications (Trade) Dose Ordered Sig/Lisa Route Start Time Stop Time Status Last Admin Dose Admin Morphine Sulfate (MoRPHine SULFATE INJ) 4 mg Q3H PRN IV 11/01/16 23:45 11/15/16 23:44 11/02/16 11:47 4 MG Oxycodone HCl (Roxicodone Immediate Rel Tab) `1-2 tabs for pain 1 tab ... Q4H PRN PO 11/01/16 23:45 11/15/16 23:44 11/03/16 01:06 10 MG Acetaminophen (Tylenol Tab) 325 mg Q6H PRN PO 11/01/16 23:45 12/01/16 23:44 Buspirone HCl (Buspar Tab) 5 mg BID PO 11/02/16 09:00 12/02/16 08:59 11/03/16 08:09 5 MG Folic Acid (Folvite Tab) 1 mg DAILY PO 11/02/16 09:00 12/02/16 08:59 11/03/16 08:12 1 MG Lactulose (Chronulac Syrup) 10 gm BID PRN PO 11/01/16 23:45 12/01/16 23:44 Nadolol (Corgard Tab) 10 mg DAILY PO 11/02/16 09:00 12/02/16 08:59 11/03/16 08:10 10 MG Ursodiol (Actigall Cap) 600 mg DAILY PO 11/02/16 09:00 12/02/16 08:59 11/03/16 08:12 600 MG Pantoprazole Sodium (Protonix Tab) 40 mg QAM PO 11/02/16 09:00 12/02/16 08:59 11/03/16 08:09 40 MG Ondansetron HCl (Zofran Inj) 4 mg Q6H PRN IV 11/01/16 23:45 12/01/16 23:44 Promethazine HCl 12.5 mg/Sodium Chloride 50.5 ml @ 204 mls/hr Q6H PRN IV 11/01/16 23:45 12/01/16 23:44 Sodium Chloride 1,000 ml @ 60 mls/hr [id number] IV 11/02/16 00:30 12/02/16 00:29 11/02/16 00:29 60 MLS/HR Lorazepam 0.5 mg/ Syringe 1 ml @ 1 mls/min Q4H PRN IV 11/02/16 00:30 12/02/16 00:29 Miscellaneous (Iv Fluids Completed) 1 ea PRN PRN N/A 11/02/16 04:15 11/02/17 04:14 Furosemide (Lasix Tab) 20 mg DAILY PO 11/03/16 09:00 12/03/16 08:59 11/03/16 08:08 20 MG Spironolactone (Aldactone Tab) 25 mg DAILY PO 11/03/16 09:00 12/03/16 08:59 11/03/16 08:10 25 MG Potassium Chloride (Klor-Con M10) 10 meq DAILY PO 11/03/16 09:00 12/03/16 08:59 11/03/16 08:09 10 MEQ Vancomycin HCl 1200 mg/Sodium Chloride 274 ml @ 125 mls/hr Q10H IV 11/03/16 04:00 11/17/16 03:59 11/03/16 03:38 125 MLS/HR Vancomycin HCl (Consult) 1 ea UD PRN N/A 11/02/16 18:30 12/02/16 18:29
[2016-11-03 15:08] VITALS: BP 105/62; PULSE 69; TEMP 36.8; O2SAT 97
[2016-11-03 16:30] VITALS: O2SAT 97
--- NOTE | 2016-11-03 18:06 | Medical Consult ---
Consultation Date of Consultation: Nov 03, 2016. Attending Physician: Brigitte Azar M.D. Reason for Consultation: Gram-positive cocci in blood culture History of Present Illness 41-year-old male with longstanding chronic liver disease, now end-stage with evaluation for liver transplant, secondary to chronic alcohol abuse, who has history of chronic cholecystitis with recent admission for flare with abdominal pain. Was doing well until just prior to admission when he developed increasing abdominal pain consistent with recurrent cholecystitis symptoms. He has undergone evaluation and HIDA scan shows evidence consistent with his chronic cholecystitis. Patient was improving since time of admission, but now blood culture, 1 set growing coagulase-negative Staph. Repeat blood cultures have been drawn and are pending. Patient has not had fever, chills, or other new systemic complaints. Pain has improved from admission. Past Medical/Surgical History ofMedical Problems: (1) Biliary colic Status: Acute (2) Biliary obstruction Status: Acute (3) Gallstones Status: Acute (4) Hyperbilirubinemia Status: Acute (5) Intractable abdominal pain Status: Acute (6) Right otitis media Status: Acute (7) Right upper quadrant abdominal pain Status: Acute (8) RUQ abdominal pain Status: Acute Medical Problems: (1) Alcohol withdrawal seizure (2) Alcoholic cirrhosis (3) Esophageal varices (4) Gall bladder disease (5) History of alcohol abuse (6) History of hyponatremia (7) History of macrocytic anemia (8) History of thrombocytopenia (9) Portal hypertensive gastropathy Surgical Problems: (1) S/P tonsillectomy Family History Asthma MOTHER Diabetes mellitus MOTHER Stroke FATHER Social History Smoking Status: Never Smoker Alcohol Use: prior alcoholism. none now. Drug Use: none Marital Status: single Occupation Status: unemployed Allergies Coded Allergies: Aspirin (Verified Allergy, Unknown, THINS BLOOD, 11/01/16) Current Inpatient Medications Current Inpatient Medications Medications (Trade) Dose Ordered Sig/Lisa Route Start Time Stop Time Status Last Admin Dose Admin Morphine Sulfate (MoRPHine SULFATE INJ) 4 mg Q3H PRN IV 11/01/16 23:45 11/15/16 23:44 11/02/16 11:47 4 MG Oxycodone HCl (Roxicodone Immediate Rel Tab) `1-2 tabs for pain 1 tab ... Q4H PRN PO 11/01/16 23:45 11/15/16 23:44 11/03/16 01:06 10 MG Acetaminophen (Tylenol Tab) 325 mg Q6H PRN PO 11/01/16 23:45 12/01/16 23:44 Buspirone HCl (Buspar Tab) 5 mg BID PO 11/02/16 09:00 12/02/16 08:59 11/03/16 08:09 5 MG Folic Acid (Folvite Tab) 1 mg DAILY PO 11/02/16 09:00 12/02/16 08:59 11/03/16 08:12 1 MG Lactulose (Chronulac Syrup) 10 gm BID PRN PO 11/01/16 23:45 12/01/16 23:44 Nadolol (Corgard Tab) 10 mg DAILY PO 11/02/16 09:00 12/02/16 08:59 11/03/16 08:10 10 MG Ursodiol (Actigall Cap) 600 mg DAILY PO 11/02/16 09:00 12/02/16 08:59 11/03/16 08:12 600 MG Pantoprazole Sodium (Protonix Tab) 40 mg QAM PO 11/02/16 09:00 12/02/16 08:59 11/03/16 08:09 40 MG Ondansetron HCl (Zofran Inj) 4 mg Q6H PRN IV 11/01/16 23:45 12/01/16 23:44 Promethazine HCl 12.5 mg/Sodium Chloride 50.5 ml @ 204 mls/hr Q6H PRN IV 11/01/16 23:45 12/01/16 23:44 Lorazepam 0.5 mg/ Syringe 1 ml @ 1 mls/min Q4H PRN IV 11/02/16 00:30 12/02/16 00:29 Miscellaneous (Iv Fluids Completed) 1 ea PRN PRN N/A 11/02/16 04:15 11/02/17 04:14 Furosemide (Lasix Tab) 20 mg DAILY PO 11/03/16 09:00 12/03/16 08:59 11/03/16 08:08 20 MG Spironolactone (Aldactone Tab) 25 mg DAILY PO 11/03/16 09:00 12/03/16 08:59 11/03/16 08:10 25 MG Potassium Chloride (Klor-Con M10) 10 meq DAILY PO 11/03/16 09:00 12/03/16 08:59 11/03/16 08:09 10 MEQ Vancomycin HCl 1200 mg/Sodium Chloride 274 ml @ 125 mls/hr Q10H IV 11/03/16 04:00 11/17/16 03:59 11/03/16 13:28 125 MLS/HR Vancomycin HCl (Consult) 1 ea UD PRN N/A 11/02/16 18:30 12/02/16 18:29 Review of Systems All systems were reviewed and are negative except as per HPI Physical Exam Date Time Temp Pulse Resp B/P (MAP) Pulse Ox O2 Delivery O2 Flow Rate FiO2 11/03/16 16:30 97 Room Air 11/03/16 15:08 36.8 69 18 105/62 (76) 97 Room Air 11/03/16 08:25 Room Air 11/03/16 07:17 37.0 69 16 104/55 (71) 97 Room Air 11/02/16 22:59 37.2 74 16 110/62 (78) 97 Room Air 11/02/16 20:00 Room Air General Appearance: WD/WN, no apparent distress Head: normocephalic, atraumatic Eyes: normal inspection, EOMI, + pertinent finding ( sclerae icteric) ENT: normal ENT inspection, hearing grossly normal, pharynx normal Neck: supple, no adenopathy, thyroid normal, trachea midline Respiratory/Chest: chest non-tender, lungs clear, normal breath sounds, no respiratory distress Cardiovascular: regular rate, rhythm, no gallop, no murmur Abdomen/GI: normal bowel sounds, non tender, soft, no organomegaly Back: normal inspection, no CVA tenderness Extremities/Musculoskelatal: no calf tenderness, non-tender Neurologic/Psych: alert, oriented x 3 Skin: normal color, warm/dry, no rash Lymphatic: no adenopathy Laboratory Results Date/Time Source Procedure Growth Status 11/02/16 18:40 Blood Blood Culture Pending Received 11/02/16 18:31 Blood Blood Culture Pending Received 11/03/16 01:11 Nasal MRSA DNA Surveillance Screen - Final Specimen Negative for MRSA by DNA Probe Complete Last 24 Hours Test 11/03/16 05:14 Sodium Level 140 mmol/L Potassium Level 3.6 mmol/L Chloride Level 108 mmol/L Carbon Dioxide Level 24 mmol/L Anion Gap 8.0 mmol/L Blood Urea Nitrogen 8 mg/dl Creatinine 0.75 mg/dl Est Creatinine Clear Calc Drug Dose 122.8 ml/min Estimated GFR () 130.2 Estimated GFR (Non- 112.4 BUN/Creatinine Ratio 10.3 Random Glucose 84 mg/dl Calcium Level 8.3 mg/dl Total Bilirubin 3.9 mg/dl Aspartate Amino Transf (AST/SGOT) 24 U/L Alanine Aminotransferase (ALT/SGPT) 14 U/L Alkaline Phosphatase 120 U/L Total Protein 5.8 gm/dl Albumin 2.1 gm/dl Globulin 3.7 gm/dl Albumin/Globulin Ratio 0.6 NUCLEAR MEDICINE HEPATOBILIARY STUDY CLINICAL HISTORY: Right upper quadrant pain. COMPARISON STUDY: Biliary ultrasound dated 11/01/2016 FINDINGS: The patient was injected with 4.8 mCi of technetium 99m Choletec. Anterior imaging was performed. There was normal passage of activity into small bowel. There is bile reflux into the stomach. The gallbladder was not visualized at 1 hour. The patient was administered 4 mg of intravenous morphine. Additional imaging was obtained for an hour. The gallbladder was visualized on the 90 minute image. IMPRESSION: 1. Delayed visualization of the gallbladder, consistent with chronic cholecystitis. 2. No evidence of cystic duct obstruction 3. Bile reflux into the stomach Electronically signed by: Jose Raul Flores M.D. 11/02/2016 12:33 PM Dictated Date/Time: 11/02/2016 12:29 PM Assessment & Plan 41-year-old male with alcoholic liver disease, awaiting transplantation, with chronic cholecystitis, now presents with what appears to be acute exacerbation of his cholecystitis, with now blood cultures, 1 set, growing coagulase negative Staph. I suspect that blood cultures represent contaminant given benign clinical appearance and clinical improvement prior to initiation of anti staphylococcal antibiotics. Further cultures have been drawn, and if negative, would think that antibiotics can be discontinued. Likely needs referral to tertiary center for further management of chronic cholecystitis and need for transplantation. Will discuss with all involved. Will follow.
[2016-11-03] MEDS: MoRPHine SULFATE 4 MG/ML 1 ML CARP\\VIAL IV PRN (22:05)
[2016-11-03 23:09] VITALS: BP 102/57; PULSE 69; TEMP 36.7; O2SAT 97
[2016-11-03] MEDS ORDERED: VANCOMYCIN TROUGH SCH (23:30)
[2016-11-04 00:40] VITALS: O2SAT 97
[2016-11-04] MEDS: VANCOMYCIN INJ 1,200 MG in SODIUM CHLORIDE 0.9% 250ML 250 ML IV SCH (01:21)
[2016-11-04 05:38] LABS: HEMATOCRIT 30.7 % (42-52); MEAN CELL VOLUME 99.7 fL (80-100); MEAN CORPUSCULAR HEMOGLOBIN 35.1 pg (25-34); MEAN CORPUSCULAR HGB CONC 35.2 g/dl (32-36); RED BLOOD COUNT 3.08 M/uL (4.7-6.1); WHITE BLOOD COUNT 4.97 K/uL (4.8-10.8)
[2016-11-04 05:40] LABS: MEAN PLATELET VOLUME 10.3 fL (7.4-10.4); PLATELET COUNT 75 K/uL (130-400)
--- NOTE | 2016-11-04 05:50 | Pharmacy Progress Note ---
Pharmacy Antibiotic Prog Note Date of Service Nov 04, 2016. Subjective The patient is currently receiving Vanco 1200 mg IV every 10 hours. The patient is currently on day # 2 of 14 IV therapy. Objective Height (Feet): 5 Height (Inches): 8.00 Weight (Kilograms): 76.300 Levels: Item Value Date Time Vancomycin Level Trough 13.9 mcg/ml 11/03/16 8117 Lab Results (24hrs): Test 11/03/16 23:37 11/04/16 05:24 Vancomycin Level Trough 13.9 mcg/ml (SEE COMMENT) White Blood Count 4.97 K/uL (4.8-10.8) Red Blood Count 3.08 M/uL (4.7-6.1) Hemoglobin 10.8 g/dL (14.0-18.0) Hematocrit 30.7 % (42-52) Mean Corpuscular Volume 99.7 fL (80-100) Mean Corpuscular Hemoglobin 35.1 pg (25-34) Mean Corpuscular Hemoglobin Concent 35.2 g/dl (32-36) RDW Standard Deviation 50.6 fL (36.4-46.3) RDW Coefficient of Variation 14.1 % (11.5-14.5) Platelet Count 75 K/uL (130-400) Mean Platelet Volume 10.3 fL (7.4-10.4) Assessment & Plan This drug level is subtherapeutic. Goal trough level estimate 15-20 mcg/ml/ Will keep same dosage of 1200 mg but change frequency to every 8 hours. Another trough level has been ordered for 0030 on 11/05/16. Pharmacy will continue to follow and will adjust dose/frequency as necessary. Thank you
[2016-11-04 06:12] LABS: BUN/CREATININE RATIO 10.9 (10-20); CALCIUM 8.2 mg/dl (8.5-10.1); CREATININE 0.71 mg/dl (0.60-1.40); POTASSIUM 3.7 mmol/L (3.5-5.1)
[2016-11-04 06:31] LABS: ALB/GLOB RATIO 0.6 (0.9-2)
[2016-11-04 07:10] VITALS: BP 104/59; PULSE 74; TEMP 36.9; O2SAT 98
[2016-11-04] MEDS ORDERED: VANCOMYCIN INJ 1,200 MG in SODIUM CHLORIDE 0.9% 250ML 250 ML IV SCH (09:00)
[2016-11-04] MEDS: SPIRONOLACTONE 25 MG TAB PO SCH (09:20)
[2016-11-04] MEDS: URSODIOL 300 MG CAP PO SCH (09:20)
[2016-11-04] MEDS: NADOLOL 40 MG TAB PO SCH (09:21)
[2016-11-04] MEDS: FUROSEMIDE 20 MG TAB PO SCH (09:21)
[2016-11-04] MEDS: POTASSIUM CHLORIDE 10 MEQ TABCR PO SCH (09:21)
[2016-11-04] MEDS: PANTOprazole SOD 40 MG TAB PO SCH (09:22)
[2016-11-04] MEDS: OXYCODONE HCL IR 5 MG TAB (IMMEDIATE RELEASE) PO PRN ×4 (09:23→23:38)
[2016-11-04 09:25] VITALS: BP 105/61; PULSE 71
--- NOTE | 2016-11-04 11:48 | Progress Note ---
Medicine Progress Note Date & Time of Visit: Nov 04, 2016 at 11:36. Subjective Pt was seen and examined Lying in bed with no distress Pt said that last night after dinner he had moderate abdominal pain He said that it seems like his gallbladder feels like it was pulsatile He said that pain improved this morning denies any chest pain, palpitation, dizziness and sob Objective Last 8 Hrs Date Time Temp Pulse Resp B/P (MAP) Pulse Ox O2 Delivery O2 Flow Rate FiO2 11/04/16 09:25 71 105/61 (76) 11/04/16 07:45 Room Air 11/04/16 07:10 36.9 74 16 104/59 (74) 98 Room Air Physical Exam: General- No acute distress Head- atraumatic Eyes- PERRL, EOMI ENT- oropharynx clear Neck- supple, no JVD Lungs- No wheezing, No rales Heart- regular rhythm; no murmur Abdomen- normal bowel sounds, nontender Extremities- no pretibial edema, no calf tenderness Neuro- alert, oriented x 3; PERRL, EOMI; no facial palsy Skin- warm & dry Laboratory Results: Last 24 Hours Test 11/03/16 23:37 11/04/16 05:24 Vancomycin Level Trough 13.9 mcg/ml White Blood Count 4.97 K/uL Red Blood Count 3.08 M/uL Hemoglobin 10.8 g/dL Hematocrit 30.7 % Mean Corpuscular Volume 99.7 fL Mean Corpuscular Hemoglobin 35.1 pg Mean Corpuscular Hemoglobin Concent 35.2 g/dl RDW Standard Deviation 50.6 fL RDW Coefficient of Variation 14.1 % Platelet Count 75 K/uL Mean Platelet Volume 10.3 fL Sodium Level 138 mmol/L Potassium Level 3.7 mmol/L Chloride Level 106 mmol/L Carbon Dioxide Level 26 mmol/L Anion Gap 6.0 mmol/L Blood Urea Nitrogen 8 mg/dl Creatinine 0.71 mg/dl Est Creatinine Clear Calc Drug Dose 129.8 ml/min Estimated GFR () 133.2 Estimated GFR (Non- 114.9 BUN/Creatinine Ratio 10.9 Random Glucose 87 mg/dl Calcium Level 8.2 mg/dl Total Bilirubin 3.0 mg/dl Aspartate Amino Transf (AST/SGOT) 25 U/L Alanine Aminotransferase (ALT/SGPT) 16 U/L Alkaline Phosphatase 140 U/L Total Protein 5.9 gm/dl Albumin 2.2 gm/dl Globulin 3.7 gm/dl Albumin/Globulin Ratio 0.6 Assessment & Plan CHRONIC CHOLECYSTIS : Presented with RUQ pain , HIDA scan showed delayed visualization of the gallbladder, consistent with chronic cholecystitis and no evidence of cystic duct obstruction Afebrile, WBC trending down to normal Surgery on board and recommended conservative management no indication of surgical procedure at this time ( MELD SCORE 15 with a 6% 3month mortality) developed abdominal pain after dinner last night Seems doing ok now will reevaluate him after lunch and dinner today if tolerates diet and no pain after eating dinner, will consider to discharge home this afternoon If surgery needed, he will need to be transferred to a tertiary center Bacteremia Blood cx grows goag neg staph not Lugdunensis On IV Vanco repeat blood cx showed no growth so far ID consulted Possible contamination as per ID ID recommended to follow up blood cx, and if cx is negative to discontinue abx HX OF ALCOHOLIC CIRRHOSIS: As per previous GI consult calculated MELD ( model of end stage liver disease ) score 15 with a 6% 3month mortality Pt has a follow up appointment in [place] for possible liver transplant no evidence of hepatic decompensation CHRONIC ANEMIA due to chronic liver disease no evidence of GI bleed Hbg 10.8 continue monitor cbc DVT PROPHYLAXIS scd and teds avoid anticoagulation for liver Cirrhosis , hx of esophageal varices , thrombocytopenia DISPOSITION Possible discharge home today Follow up with liver transplant team in [facility] Consultants: Surgery ID Current Inpatient Medications: Current Inpatient Medications Medications (Trade) Dose Ordered Sig/Lisa Route Start Time Stop Time Status Last Admin Dose Admin Morphine Sulfate (MoRPHine SULFATE INJ) 4 mg Q3H PRN IV 11/01/16 23:45 11/15/16 23:44 11/03/16 22:05 4 MG Oxycodone HCl (Roxicodone Immediate Rel Tab) `1-2 tabs for pain 1 tab ... Q4H PRN PO 11/01/16 23:45 11/15/16 23:44 11/04/16 09:23 5 MG Acetaminophen (Tylenol Tab) 325 mg Q6H PRN PO 11/01/16 23:45 12/01/16 23:44 Buspirone HCl (Buspar Tab) 5 mg BID PO 11/02/16 09:00 12/02/16 08:59 11/04/16 09:20 5 MG Folic Acid (Folvite Tab) 1 mg DAILY PO 11/02/16 09:00 12/02/16 08:59 11/04/16 09:21 1 MG Lactulose (Chronulac Syrup) 10 gm BID PRN PO 11/01/16 23:45 12/01/16 23:44 Nadolol (Corgard Tab) 10 mg DAILY PO 11/02/16 09:00 12/02/16 08:59 11/04/16 09:21 10 MG Ursodiol (Actigall Cap) 600 mg DAILY PO 11/02/16 09:00 12/02/16 08:59 11/04/16 09:20 600 MG Pantoprazole Sodium (Protonix Tab) 40 mg QAM PO 11/02/16 09:00 12/02/16 08:59 11/04/16 09:22 40 MG Ondansetron HCl (Zofran Inj) 4 mg Q6H PRN IV 11/01/16 23:45 12/01/16 23:44 Promethazine HCl 12.5 mg/Sodium Chloride 50.5 ml @ 204 mls/hr Q6H PRN IV 11/01/16 23:45 12/01/16 23:44 Lorazepam 0.5 mg/ Syringe 1 ml @ 1 mls/min Q4H PRN IV 11/02/16 00:30 12/02/16 00:29 Miscellaneous (Iv Fluids Completed) 1 ea PRN PRN N/A 11/02/16 04:15 11/02/17 04:14 Furosemide (Lasix Tab) 20 mg DAILY PO 11/03/16 09:00 12/03/16 08:59 11/04/16 09:21 20 MG Spironolactone (Aldactone Tab) 25 mg DAILY PO 11/03/16 09:00 12/03/16 08:59 11/04/16 09:20 25 MG Potassium Chloride (Klor-Con M10) 10 meq DAILY PO 11/03/16 09:00 12/03/16 08:59 11/04/16 09:21 10 MEQ Vancomycin HCl (Consult) 1 ea UD PRN N/A 11/02/16 18:30 12/02/16 18:29 Vancomycin HCl 1200 mg/Sodium Chloride 274 ml @ 125 mls/hr Q8H IV 11/04/16 09:00 11/16/16 08:59 11/04/16 09:20 125 MLS/HR
--- NOTE | 2016-11-04 14:33 | Infectious Disease Progress Nt ---
Progress Note Date of Service Nov 04, 2016. Subjective Pt evaluation today including: conversation w/ patient, physical exam, chart review, lab review, review of studies, conversation w/ sec reporting consultant, review of inpatient medication list Continues to improve. Remmains afebrile. F/U blood cultures remain no growth. All Other Systems: Reviewed and Negative Medications Current Inpatient Medications Medications (Trade) Dose Ordered Sig/Lisa Route Start Time Stop Time Status Last Admin Dose Admin Morphine Sulfate (MoRPHine SULFATE INJ) 4 mg Q3H PRN IV 11/01/16 23:45 11/15/16 23:44 11/03/16 22:05 4 MG Oxycodone HCl (Roxicodone Immediate Rel Tab) `1-2 tabs for pain 1 tab ... Q4H PRN PO 11/01/16 23:45 11/15/16 23:44 11/04/16 13:25 10 MG Acetaminophen (Tylenol Tab) 325 mg Q6H PRN PO 11/01/16 23:45 12/01/16 23:44 Buspirone HCl (Buspar Tab) 5 mg BID PO 11/02/16 09:00 12/02/16 08:59 11/04/16 09:20 5 MG Folic Acid (Folvite Tab) 1 mg DAILY PO 11/02/16 09:00 12/02/16 08:59 11/04/16 09:21 1 MG Lactulose (Chronulac Syrup) 10 gm BID PRN PO 11/01/16 23:45 12/01/16 23:44 Nadolol (Corgard Tab) 10 mg DAILY PO 11/02/16 09:00 12/02/16 08:59 11/04/16 09:21 10 MG Ursodiol (Actigall Cap) 600 mg DAILY PO 11/02/16 09:00 12/02/16 08:59 11/04/16 09:20 600 MG Pantoprazole Sodium (Protonix Tab) 40 mg QAM PO 11/02/16 09:00 12/02/16 08:59 11/04/16 09:22 40 MG Ondansetron HCl (Zofran Inj) 4 mg Q6H PRN IV 11/01/16 23:45 12/01/16 23:44 Promethazine HCl 12.5 mg/Sodium Chloride 50.5 ml @ 204 mls/hr Q6H PRN IV 11/01/16 23:45 12/01/16 23:44 Lorazepam 0.5 mg/ Syringe 1 ml @ 1 mls/min Q4H PRN IV 11/02/16 00:30 12/02/16 00:29 Miscellaneous (Iv Fluids Completed) 1 ea PRN PRN N/A 11/02/16 04:15 11/02/17 04:14 Furosemide (Lasix Tab) 20 mg DAILY PO 11/03/16 09:00 12/03/16 08:59 11/04/16 09:21 20 MG Spironolactone (Aldactone Tab) 25 mg DAILY PO 11/03/16 09:00 12/03/16 08:59 11/04/16 09:20 25 MG Potassium Chloride (Klor-Con M10) 10 meq DAILY PO 11/03/16 09:00 12/03/16 08:59 11/04/16 09:21 10 MEQ Objective Vital Signs Date Time Temp Pulse Resp B/P (MAP) Pulse Ox O2 Delivery O2 Flow Rate FiO2 11/04/16 09:25 71 105/61 (76) 11/04/16 07:45 Room Air 11/04/16 07:10 36.9 74 16 104/59 (74) 98 Room Air 11/04/16 00:40 97 Room Air 11/03/16 23:09 36.7 69 16 102/57 (72) 97 Room Air 11/03/16 16:30 97 Room Air 11/03/16 15:08 36.8 69 18 105/62 (76) 97 Room Air Physical Exam General Appearance: WD/WN, no apparent distress Eyes: normal inspection, + abnormal sclerae exam (icteric) ENT: normal ENT inspection, pharynx normal Neck: supple, no adenopathy, trachea midline Respiratory/Chest: lungs clear, normal breath sounds, no respiratory distress Cardiovascular: regular rate, rhythm, no gallop, no murmur Abdomen: normal bowel sounds, non tender, soft, no organomegaly Extremities: non-tender, no calf tenderness Neurologic/Psychiatric: alert, oriented x 3 Skin: normal color, warm/dry, no rash Lymphatic: no adenopathy Laboratory Results Last 24 RUN DATE: 11/04/16 [facility] LAB PAGE 1 RUN TIME: 738 Specimen Inquiry PATIENT: ANDREA ADAME LOC: [facility] U # : [id number] AGE/SX: 41/M ROOM: E322 REG : 11/01/[address]: Brigitte Azar M.D. : 1975 BED: 1 DIS : STATUS: ADM Hope TLOC: SPEC #: [id number] PB: 11/02/16 STATUS: RES REQ #: [id number] RECD: 11/02/[address]: Leanne Clark M.D. SOURCE: BLOOD ENTR: 11/02/16 [facility] DR: Shivam Carrion MD [facility]: Ric Chapman D.O., Joseph N., M.D. Olson, Amanda M., D.O. ORDERED: BLOOD CULTURE Procedure Result Verified Site BLD CULT Preliminary 11/04/16-0739 NO GROWTH TO DATE. Hours Test 11/03/16 23:37 11/04/16 05:24 Vancomycin Level Trough 13.9 mcg/ml White Blood Count 4.97 K/uL Red Blood Count 3.08 M/uL Hemoglobin 10.8 g/dL Hematocrit 30.7 % Mean Corpuscular Volume 99.7 fL Mean Corpuscular Hemoglobin 35.1 pg Mean Corpuscular Hemoglobin Concent 35.2 g/dl RDW Standard Deviation 50.6 fL RDW Coefficient of Variation 14.1 % Platelet Count 75 K/uL Mean Platelet Volume 10.3 fL Sodium Level 138 mmol/L Potassium Level 3.7 mmol/L Chloride Level 106 mmol/L Carbon Dioxide Level 26 mmol/L Anion Gap 6.0 mmol/L Blood Urea Nitrogen 8 mg/dl Creatinine 0.71 mg/dl Est Creatinine Clear Calc Drug Dose 129.8 ml/min Estimated GFR () 133.2 Estimated GFR (Non- 114.9 BUN/Creatinine Ratio 10.9 Random Glucose 87 mg/dl Calcium Level 8.2 mg/dl Total Bilirubin 3.0 mg/dl Aspartate Amino Transf (AST/SGOT) 25 U/L Alanine Aminotransferase (ALT/SGPT) 16 U/L Alkaline Phosphatase 140 U/L Total Protein 5.9 gm/dl Albumin 2.2 gm/dl Globulin 3.7 gm/dl Albumin/Globulin Ratio 0.6 Assessment and Plan 41-year-old male with alcoholic liver disease, awaiting transplantation, with chronic cholecystitis, now presents with what appears to be acute exacerbation of his cholecystitis, with blood cultures, 1 set, growing coagulase negative Staph. Given clinical improvement prior to Abx, and negative repeat cultures, likely contaminant and would d/c vancomycin.
[2016-11-04 15:24] VITALS: BP 99/60; PULSE 63; TEMP 36.8; O2SAT 97
[2016-11-04] MEDS ORDERED: RXC5 PO (21:03)
[2016-11-04 23:15] VITALS: BP 110/65; PULSE 66; TEMP 36.8; O2SAT 100
[2016-11-05] MEDS ORDERED: VANCOMYCIN TROUGH SCH (00:30)
[2016-11-05] MEDS: MoRPHine SULFATE 4 MG/ML 1 ML CARP\\VIAL IV PRN (01:19)
[2016-11-05 06:36] LABS: HEMATOCRIT 31.2 % (42-52); MEAN CELL VOLUME 99.7 fL (80-100); MEAN CORPUSCULAR HEMOGLOBIN 34.5 pg (25-34); MEAN CORPUSCULAR HGB CONC 34.6 g/dl (32-36); MEAN PLATELET VOLUME 10.3 fL (7.4-10.4); PLATELET COUNT 83 K/uL (130-400); RED BLOOD COUNT 3.13 M/uL (4.7-6.1); WHITE BLOOD COUNT 4.44 K/uL (4.8-10.8)
[2016-11-05 07:15] LABS: BASO % 1.6 %; BASO ABS # 0.07 K/uL (0-0.2); COMPLETE YES; EOS % 4.5 %; LYMPH % 31.5 %; MONO % 19.8 %; NEUT % 42.6 %
[2016-11-05 07:35] VITALS: BP 100/58; PULSE 62; TEMP 36.6; O2SAT 98
[2016-11-05 07:41] VITALS: O2SAT 98
[2016-11-05] MEDS: SPIRONOLACTONE 25 MG TAB PO SCH (09:00)
[2016-11-05] MEDS: URSODIOL 300 MG CAP PO SCH (09:00)
[2016-11-05] MEDS: NADOLOL 40 MG TAB PO SCH (09:02)
[2016-11-05] MEDS: POTASSIUM CHLORIDE 10 MEQ TABCR PO SCH (09:02)
[2016-11-05] MEDS: FUROSEMIDE 20 MG TAB PO SCH (09:03)
[2016-11-05] MEDS: PANTOprazole SOD 40 MG TAB PO SCH (09:03)
[2016-11-05 09:32] VITALS: BP 100/58; PULSE 62; TEMP 36.6; O2SAT 98
--- NOTE | 2016-11-05 13:14 | Progress Note ---
Medicine Progress Note Date & Time of Visit: Nov 05, 2016 at 13:10. Subjective patient seen resting in bed, comfortable states he feels much better today denies abdominal pain tolerated diet well denies other symptoms states he is ready and would like to be discharged today Objective Last 8 Hrs Date Time Temp Pulse Resp B/P (MAP) Pulse Ox O2 Delivery O2 Flow Rate FiO2 11/05/16 09:32 36.6 62 14 98 Room Air 11/05/16 07:58 Room Air 11/05/16 07:41 98 Room Air 11/05/16 07:35 36.6 62 14 100/58 (72) 98 Room Air Physical Exam: General- oriented x 3, not in distress, speaks in sentences with no effort Eyes- anicteric Neck- supple, no JVD, no adenopathy Lungs- clear breath sounds bilaterally Heart- regular rhythm; no murmur Abdomen- normal bowel sounds, soft, nontender Extremities- no pretibial edema, no calf tenderness Neuro- alert, oriented x 3;no gross focal deficits Skin- warm & dry Laboratory Results: Last 24 Hours Test 11/05/16 06:09 White Blood Count 4.44 K/uL Red Blood Count 3.13 M/uL Hemoglobin 10.8 g/dL Hematocrit 31.2 % Mean Corpuscular Volume 99.7 fL Mean Corpuscular Hemoglobin 34.5 pg Mean Corpuscular Hemoglobin Concent 34.6 g/dl Platelet Count 83 K/uL Mean Platelet Volume 10.3 fL Neutrophils (%) (Auto) 42.6 % Lymphocytes (%) (Auto) 31.5 % Monocytes (%) (Auto) 19.8 % Eosinophils (%) (Auto) 4.5 % Basophils (%) (Auto) 1.6 % Neutrophils # (Auto) 1.89 K/uL Lymphocytes # (Auto) 1.40 K/uL Monocytes # (Auto) 0.88 K/uL Eosinophils # (Auto) 0.20 K/uL Basophils # (Auto) 0.07 K/uL RDW Standard Deviation 51.3 fL RDW Coefficient of Variation 14.3 % Immature Granulocyte % (Auto) 0.0 % Immature Granulocyte # (Auto) 0.00 K/uL Assessment & Plan CHRONIC CHOLECYSTIS Presented with RUQ pain HIDA scan showed delayed visualization of the gallbladder, consistent with chronic cholecystitis and no evidence of cystic duct obstruction Afebrile, WBC trending down to normal Surgery on board and recommended conservative management no indication of surgical procedure at this time ( MELD SCORE 15 with a 6% 3month mortality) developed abdominal pain after dinner last night --- no abdominal pain today patient would like to be discharged today Bacteremia Blood cx grows goag neg staph not Lugdunensis On IV Vanco repeat blood cx showed no growth so far ID consulted Possible contamination as per ID -- antibiotics discontinued HX OF ALCOHOLIC CIRRHOSIS: As per previous GI consult calculated MELD ( model of end stage liver disease ) score 15 with a 6% 3month mortality Pt has a follow up appointment in [place] for possible liver transplant -- compensated CHRONIC ANEMIA due to chronic liver disease no evidence of GI bleed Hbg 10.8 DVT PROPHYLAXIS scd and teds avoid anticoagulation for liver Cirrhosis , hx of esophageal varices , thrombocytopenia DISPOSITION d/c home today ff up with PCP in 3-5 days Consultants: Surgery ID Current Inpatient Medications: Current Inpatient Medications Medications (Trade) Dose Ordered Sig/Lisa Route Start Time Stop Time Status Last Admin Dose Admin Morphine Sulfate (MoRPHine SULFATE INJ) 4 mg Q3H PRN IV 11/01/16 23:45 11/15/16 23:44 11/05/16 01:19 4 MG Oxycodone HCl (Roxicodone Immediate Rel Tab) `1-2 tabs for pain 1 tab ... Q4H PRN PO 11/01/16 23:45 11/15/16 23:44 11/04/16 23:38 10 MG Acetaminophen (Tylenol Tab) 325 mg Q6H PRN PO 11/01/16 23:45 12/01/16 23:44 Buspirone HCl (Buspar Tab) 5 mg BID PO 11/02/16 09:00 12/02/16 08:59 11/05/16 09:01 5 MG Folic Acid (Folvite Tab) 1 mg DAILY PO 11/02/16 09:00 12/02/16 08:59 11/05/16 09:02 1 MG Lactulose (Chronulac Syrup) 10 gm BID PRN PO 11/01/16 23:45 12/01/16 23:44 Nadolol (Corgard Tab) 10 mg DAILY PO 11/02/16 09:00 12/02/16 08:59 11/05/16 09:02 10 MG Ursodiol (Actigall Cap) 600 mg DAILY PO 11/02/16 09:00 12/02/16 08:59 11/05/16 09:00 600 MG Pantoprazole Sodium (Protonix Tab) 40 mg QAM PO 11/02/16 09:00 12/02/16 08:59 11/05/16 09:03 40 MG Ondansetron HCl (Zofran Inj) 4 mg Q6H PRN IV 11/01/16 23:45 12/01/16 23:44 Promethazine HCl 12.5 mg/Sodium Chloride 50.5 ml @ 204 mls/hr Q6H PRN IV 11/01/16 23:45 12/01/16 23:44 Lorazepam 0.5 mg/ Syringe 1 ml @ 1 mls/min Q4H PRN IV 11/02/16 00:30 12/02/16 00:29 Miscellaneous (Iv Fluids Completed) 1 ea PRN PRN N/A 11/02/16 04:15 11/02/17 04:14 Furosemide (Lasix Tab) 20 mg DAILY PO 11/03/16 09:00 12/03/16 08:59 11/05/16 09:03 20 MG Spironolactone (Aldactone Tab) 25 mg DAILY PO 11/03/16 09:00 12/03/16 08:59 11/05/16 09:00 25 MG Potassium Chloride (Klor-Con M10) 10 meq DAILY PO 11/03/16 09:00 12/03/16 08:59 11/05/16 09:02 10 MEQ
--- NOTE | 2016-11-05 15:13 | Infectious Disease Progress Nt ---
Progress Note Date of Service Nov 05, 2016. Subjective Pt evaluation today including: conversation w/ patient, physical exam, chart review, lab review, review of studies, conversation w/ advanced manufacturing consultant, review of inpatient medication list Patient offering no new complaints today. Remains afebrile. Abdominal pain minimal. Blood cultures remain negative All Other Systems: Reviewed and Negative Medications Current Inpatient Medications Medications (Trade) Dose Ordered Sig/Lisa Route Start Time Stop Time Status Last Admin Dose Admin Morphine Sulfate (MoRPHine SULFATE INJ) 4 mg Q3H PRN IV 11/01/16 23:45 11/15/16 23:44 11/05/16 01:19 4 MG Oxycodone HCl (Roxicodone Immediate Rel Tab) `1-2 tabs for pain 1 tab ... Q4H PRN PO 11/01/16 23:45 11/15/16 23:44 11/04/16 23:38 10 MG Acetaminophen (Tylenol Tab) 325 mg Q6H PRN PO 11/01/16 23:45 12/01/16 23:44 Buspirone HCl (Buspar Tab) 5 mg BID PO 11/02/16 09:00 12/02/16 08:59 11/05/16 09:01 5 MG Folic Acid (Folvite Tab) 1 mg DAILY PO 11/02/16 09:00 12/02/16 08:59 11/05/16 09:02 1 MG Lactulose (Chronulac Syrup) 10 gm BID PRN PO 11/01/16 23:45 12/01/16 23:44 Nadolol (Corgard Tab) 10 mg DAILY PO 11/02/16 09:00 12/02/16 08:59 11/05/16 09:02 10 MG Ursodiol (Actigall Cap) 600 mg DAILY PO 11/02/16 09:00 12/02/16 08:59 11/05/16 09:00 600 MG Pantoprazole Sodium (Protonix Tab) 40 mg QAM PO 11/02/16 09:00 12/02/16 08:59 11/05/16 09:03 40 MG Ondansetron HCl (Zofran Inj) 4 mg Q6H PRN IV 11/01/16 23:45 12/01/16 23:44 11/05/16 13:27 4 MG Promethazine HCl 12.5 mg/Sodium Chloride 50.5 ml @ 204 mls/hr Q6H PRN IV 11/01/16 23:45 12/01/16 23:44 Lorazepam 0.5 mg/ Syringe 1 ml @ 1 mls/min Q4H PRN IV 11/02/16 00:30 12/02/16 00:29 Miscellaneous (Iv Fluids Completed) 1 ea PRN PRN N/A 11/02/16 04:15 11/02/17 04:14 Furosemide (Lasix Tab) 20 mg DAILY PO 11/03/16 09:00 12/03/16 08:59 11/05/16 09:03 20 MG Spironolactone (Aldactone Tab) 25 mg DAILY PO 11/03/16 09:00 12/03/16 08:59 11/05/16 09:00 25 MG Potassium Chloride (Klor-Con M10) 10 meq DAILY PO 11/03/16 09:00 12/03/16 08:59 11/05/16 09:02 10 MEQ Objective Vital Signs Date Time Temp Pulse Resp B/P (MAP) Pulse Ox O2 Delivery O2 Flow Rate FiO2 11/05/16 09:32 36.6 62 14 98 Room Air 11/05/16 07:58 Room Air 11/05/16 07:41 98 Room Air 11/05/16 07:35 36.6 62 14 100/58 (72) 98 Room Air 11/04/16 23:40 Room Air 11/04/16 23:15 36.8 66 18 110/65 (80) 100 Room Air 11/04/16 15:24 36.8 63 14 99/60 (73) 97 Room Air Physical Exam General Appearance: WD/WN, no apparent distress Eyes: normal inspection, EOMI, + abnormal sclerae exam (icteric) ENT: normal ENT inspection, pharynx normal Neck: supple, no adenopathy, trachea midline Respiratory/Chest: lungs clear, normal breath sounds, no respiratory distress Cardiovascular: regular rate, rhythm, no gallop, no murmur Abdomen: normal bowel sounds, non tender, soft, no organomegaly Extremities: non-tender, normal inspection, no calf tenderness Neurologic/Psychiatric: alert, oriented x 3 Skin: normal color, warm/dry, no rash Lymphatic: no adenopathy Laboratory Results Last 24 Hours Test 11/05/16 06:09 White Blood Count 4.44 K/uL Red Blood Count 3.13 M/uL Hemoglobin 10.8 g/dL Hematocrit 31.2 % Mean Corpuscular Volume 99.7 fL Mean Corpuscular Hemoglobin 34.5 pg Mean Corpuscular Hemoglobin Concent 34.6 g/dl Platelet Count 83 K/uL Mean Platelet Volume 10.3 fL Neutrophils (%) (Auto) 42.6 % Lymphocytes (%) (Auto) 31.5 % Monocytes (%) (Auto) 19.8 % Eosinophils (%) (Auto) 4.5 % Basophils (%) (Auto) 1.6 % Neutrophils # (Auto) 1.89 K/uL Lymphocytes # (Auto) 1.40 K/uL Monocytes # (Auto) 0.88 K/uL Eosinophils # (Auto) 0.20 K/uL Basophils # (Auto) 0.07 K/uL RDW Standard Deviation 51.3 fL RDW Coefficient of Variation 14.3 % Immature Granulocyte % (Auto) 0.0 % Immature Granulocyte # (Auto) 0.00 K/uL Assessment and Plan 41-year-old male with alcoholic liver disease, awaiting transplantation, with chronic cholecystitis, now presents with what appears to be acute exacerbation of his cholecystitis, with blood cultures, 1 set, growing coagulase negative Staph. Repeat blood cultures all negative suggesting this was contaminant, and antibiotics have been discontinued. Patient for discharge today.
[2016-11-06] MEDS ORDERED: VANCOMYCIN TROUGH SCH (00:30)
--- NOTE | 2016-11-06 20:47 | Discharge Summary ---
Discharge Summary Date of Service Nov 06, 2016. Discharge Summary Admission Date: Nov 04, 2016 at 08:04 Discharge Date: Nov 05, 2016 Discharge Disposition: Home Principal Diagnosis: CHRONIC CHOLECYSTIS Secondary Diagnoses/Problems: Please refer to hospital course below. Procedures: ABDOMINAL ULTRASOUND, RIGHT UPPER QUADRANT HISTORY: Right upper quadrant abdominal pain.. COMPARISON: Abdominal ultrasound 08/14/2016. MRCP 08/10/2016. FINDINGS: Pancreas: Not well visualized due to overlying bowel gas. Liver: The liver is echogenic consistent with fatty change. A 9 mm cyst within the right hepatic lobe. Gallbladder: No cement change in the lobular hypoechoic structures within the gallbladder neck. No gallbladder wall thickening. The gallbladder is mildly distended. CBD: 9 mm. This remains unchanged. Right kidney: No hydronephrosis. IMPRESSION: No significant change compared to the prior studies. The gallbladder and common bile duct are mildly distended. There are multiple lobular hypoechoic structures within the gallbladder neck. These are nonspecific and could represent impacted sludge balls but are concerning for a mass given the lack of change and immobility. Surgical consultation is recommended. NUCLEAR MEDICINE HEPATOBILIARY STUDY CLINICAL HISTORY: Right upper quadrant pain. COMPARISON STUDY: Biliary ultrasound dated 11/01/2016 FINDINGS: The patient was injected with 4.8 mCi of technetium 99m Choletec. Anterior imaging was performed. There was normal passage of activity into small bowel. There is bile reflux into the stomach. The gallbladder was not visualized at 1 hour. The patient was administered 4 mg of intravenous morphine. Additional imaging was obtained for an hour. The gallbladder was visualized on the 90 minute image. IMPRESSION: 1. Delayed visualization of the gallbladder, consistent with chronic cholecystitis. 2. No evidence of cystic duct obstruction 3. Bile reflux into the stomach Consultations: Surgery ID Pending Studies/Follow-Up: Please refer to hospital course below. Medication Reconciliation New Medications: Oxycodone HCl (Oxycodone HCl) 5 Mg Tab 1 TAB PO Q8H PRN for Pain for 3 Days, #9 Continued Medications: Buspirone Hcl (Buspar) 15 Mg Tab 5 MG PO BID, TAB Folic Acid (Folvite) 1 Mg Tab 1 MG PO DAILY, TAB Furosemide (Lasix) 20 Mg Tab 20 MG PO DAILY Lactulose (Chronulac) 10 Gm/15 Ml Syrp 15 ML PO BID PRN for Constipation for 10 Days Nadolol (Corgard) 20 Mg Tab 10 MG PO DAILY, #30 TAB Omeprazole (Prilosec) 20 Mg Capcr 20 MG PO DAILY, CAP Potassium Chloride (K-Tabs) 10 Meq Tabcr 10 MEQ PO DAILY Probiotic Product (Probiotic) 1 Cap Cap 1 DOSE PO DAILY 10 [employer] Spironolactone (Aldactone) 25 Mg Tab 25 MG PO DAILY, TAB Ursodiol (Ursodiol) 300 Mg Cap 600 MG PO DAILY Admission Information HPI (per Admitting provider): History obtained from patient and records. Medical history significant for alcoholic cirrhosis, past alcohol abuse, Chronic hyponatremia, chronic thrombocytopenia and esophageal varices, Chronic anemia, baseline hemoglobin 9-10. history of MRSA. Two admissions in July, for recurrent right upper quadrant pain, biliary colic. Px evaluated by surgery. No indication for emergent cholecystectomy. As per discharge note, if patient complains of biliary colic in the future, cholecystectomy should be done at a tertiary care center. Yesterday afternoon, patient noted recurrence of achy right upper quadrant pain going to his chest, burning with nausea, no vomiting. Good bowel movement. No fever and no chills. Similar to gallbladder attacks in the past. Intractable pain in the Emergency Room. Physical Exam (per Admitting): VITAL SIGNS: Blood pressure was noted to be 105/52, pulse rate 62, RR 19, temperature 37, sats 98 on room air. GENERAL: Noted to be uncomfortable. No respiratory distress. SKIN: Pallor. HEENT: Pale palpebral conjunctivae. Dry mucosa. NECK: No JVD. Supple. CHEST: Clear to auscultation. HEART: Regular rate and rhythm. ABDOMEN: Right upper quadrant tenderness. EXTREMITIES: No edema. No tenderness NEUROLOGIC: No gross focality. Hospital Course per Dr. Azar's notes CHRONIC CHOLECYSTIS Presented with RUQ pain HIDA scan showed delayed visualization of the gallbladder, consistent with chronic cholecystitis and no evidence of cystic duct obstruction Afebrile, WBC trending down to normal Surgery on board and recommended conservative management no indication of surgical procedure at this time ( MELD SCORE 15 with a 6% 3month mortality) --- no more abdominal pain patient would like to be discharged --- ff up with GI and Surgery as outpatient Bacteremia, Contaminant Blood cx initiallly grew coag neg staph not Lugdunensis was placed on IV Vanco repeat blood cx showed no growth ID consulted likely contamination as per ID -- antibiotics discontinued HX OF ALCOHOLIC CIRRHOSIS: calculated MELD ( model of end stage liver disease ) score 15 with a 6% 3month mortality Pt has a follow up appointment in [place] for possible liver transplant -- compensated CHRONIC ANEMIA due to chronic liver disease no evidence of GI bleed Hbg 10.8 DISPOSITION d/c home ff up with PCP in 3-5 days Total time spent on discharge = 30 minutes This includes examination of the patient, discharge planning, medication reconciliation, and communication with other providers. Discharge Instructions Discharge Instructions Date of Service Nov 02, 2016. Admission Reason for Admission: Right Upper Quadrant Abdominal Pain Discharge Discharge Diagnosis / Problem: CHRONIC CHOLECYSTITIS Discharge Goals Goal(s): Decrease discomfort, Improve disease control, Diagnostic testing Activity Recommendations Activity Limitations: resume your previous activity . Instructions / Follow-Up Instructions / Follow-Up HOSPITAL FOLLOW UP : 11/12/2016 11:20 AM Michelle Borrego DO Internal Medicine [place] [facility] FOLLOW UP : 12/16/2016 9:00 AM [facility] Diet Patient's current hospital diet: Clear Liquid Diet Discharge Diet Recommended Diet: Low Sodium Diet (2gm Na), Low Fat Diet Pending Studies Studies pending at discharge: no Medical Emergencies . Who to Call and When: Medical Emergencies: If at any time you feel your situation is an emergency, please call 911 immediately. . Non-Emergent Contact Non-Emergency issues call your: Primary Care Provider . . "Provider Documentation" section prepared by Leanne Clark. . VTE Core Measure Inpt VTE Proph given/why not?: Yuri Vazquez, MASSIMO's
== END 2016-11-05 15:15 | disposition home or self-care (01) | DRG 445 ==
LOC: C.EDB 17:34 → C.3E 23:18 → EDBEDREQSVC 23:22 → EDBEDREQ 23:27 → ENRESERV 23:46 → OBSVTOIN 11-04 08:04
PROVIDERS: ADMIT Hospitalist; ATTEND Internal Medicine
DX: K81.1 Chronic cholecystitis (principal); K70.30 Alcoholic cirrhosis of liver without ascites; I85.10 Secondary esophageal varices without bleeding; E87.1 Hypo-osmolality and hyponatremia; F10.21 Alcohol dependence, in remission; K31.89 Other diseases of stomach and duodenum; D69.6 Thrombocytopenia, unspecified; Z86.14 Personal history of Methicillin resistant Staphylococcus aureus infection; D64.9 Anemia, unspecified

== ENCOUNTER 2017-05-13 05:38 | Emergency (ER) | payer OTHER ==
[~2017-05-13] VITALS: Ht 172.7 cm; Wt 78.9 kg
[~2017-05-13 05:38] MED LIST changes: +ACT300 PO; -CPROT OT; -FOLI1TAB7 PO; +FOLI1TAB8 PO; -LACT10SO17 PO; -MGNO400 PO; +OXYC1TAB3 PO; +ZOLP5TAB PO
[2017-05-13 05:42] VITALS: TEMP 36.7; Ht 172.7 cm; Wt 78.9 kg
[2017-05-13] MEDS ORDERED: MoRPHine SULFATE 10 MG/ML CARP/VIAL IV STA (05:54)
[2017-05-13] MEDS ORDERED: SODIUM CHLORIDE 0.9% 1000ML 1,000 ML IV STA (05:54)
[2017-05-13] MEDS ORDERED: ONDANSETRON INJ 2 MG/ML 2 ML VIAL IV STA (05:54)
--- NOTE | 2017-05-13 06:00 | EMERGENCY ROOM VISIT NOTE ---
History Report prepared by Brent: Myron Huerta Under the Supervision of: Dr. Pablo Ordoñez M.D. First contact with patient: 05:48 Chief Complaint: ABDOMINAL PAIN Stated Complaint: GALBLADDER History of Present Illness The patient is a 41 year old male who presents to the Emergency Room with complaints of constant abdominal pain beginning 3 hours ago. The patient states that his pain is located in the center of his abdomen, and radiates through to his back. He notes that he believes that his pain is related to his gallbladder. He reports that the last time his gallbladder acted up was 3 months ago. He denies any nausea, vomiting, and leg pain. The patient states that he has cirrhosis of the liver due to alcohol consumption. He denies any antibiotic usage and history of pancreatitis. He rates his pain as an 8/10, but states that he took OxyContin this morning which helped relieve his symptoms. Source of History: patient Onset: 3 hours ago Position: abdomen Symptom Intensity: 8/10 Timing: constant Associated Symptoms: + back pain, No nausea, No vomiting Note: He denies any leg pain. Review of Systems See HPI for pertinent positives & negatives. A total of 10 systems reviewed and were otherwise negative. Past Medical & Surgical Medical Problems: (1) Alcohol withdrawal seizure (2) Alcoholic cirrhosis (3) Esophageal varices (4) Gall bladder disease (5) History of alcohol abuse (6) History of hyponatremia (7) History of macrocytic anemia (8) History of thrombocytopenia (9) Portal hypertensive gastropathy Surgical Problems: (1) S/P tonsillectomy Family History Asthma MOTHER Diabetes mellitus MOTHER Stroke FATHER Social History Smoking Status: Never Smoker Alcohol Use: other (former) Drug Use: none Marital Status: single Occupation Status: unemployed Current/Historical Medications Scheduled Buspirone Hcl (Buspar), 5 MG PO BID Folic Acid (Folvite), 1 MG PO QAM Furosemide (Lasix), 20 MG PO QAM Nadolol (Corgard), 20 MG PO HS Omeprazole (Prilosec), 20 MG PO QAM Potassium Chloride (K-Tabs), 10 MEQ PO QAM Probiotic Product (Probiotic), 1 DOSE PO QAM Spironolactone (Aldactone), 25 MG PO QAM Ursodiol (Ursodiol), 1 TAB PO BID Scheduled PRN Oxycodone Ir (Roxicodone Ir), 1-2 TAB PO Q4H PRN for Severe Pain Zolpidem Tartrate (Ambien), 5 MG PO HS PRN for Sleep Allergies Coded Allergies: Aspirin (Verified Allergy, Unknown, THINS BLOOD, NOSE BLEEDS, 05/13/17) Physical Exam Vital Signs Date Time Temp Pulse Resp B/P (MAP) Pulse Ox O2 Delivery O2 Flow Rate FiO2 05/13/17 17:12 62 16 116/69 93 05/13/17 15:41 62 16 116/69 93 Room Air 05/13/17 14:01 57 18 103/59 94 Room Air 05/13/17 12:13 58 16 109/55 96 Room Air 05/13/17 09:50 61 16 113/67 96 Room Air 05/13/17 07:45 63 18 109/59 94 Room Air 05/13/17 05:42 36.7 62 18 103/66 95 Room Air Physical Exam GENERAL: Patient is uncomfortable appearing and in moderate distress. HEENT: No acute trauma, normocephalic atraumatic, mucous membranes moist, no nasal congestion, no scleral icterus, jaundice conjunctiva. NECK: No stridor, no adenopathy, no meningismus, trachea is midline. LUNGS: No dyspnea. Clear to auscultation and equal bilaterally. No wheeze, no rhonchi. HEART: Regular rate and rhythm. No murmurs, rubs, gallops appreciated. ABDOMEN: Soft, bowel sounds positive, no masses appreciated, no peritonitis, moderate RUQ tenderness, abdominal distention - chronic. BACK: No midline tenderness, no CVA tenderness EXTREMITIES: Normal motion all extremities, no cyanosis, no edema. NEUROLOGIC: Alert and oriented, no acute motor or sensory deficits, no focal weakness, cranial nerves grossly intact. SKIN: No rash, no diaphoresis, yellowing of skin. Medical Decision & Procedures Laboratory Results 05/13/17 06:10 Red Blood Count 4.30, Mean Corpuscular Volume 95.8, Mean Corpuscular Hemoglobin 33.7, Mean Corpuscular Hemoglobin Concent 35.2, Mean Platelet Volume 10.6, Neutrophils (%) (Auto) 73.5, Lymphocytes (%) (Auto) 12.2, Monocytes (%) (Auto) 11.4, Eosinophils (%) (Auto) 2.0, Basophils (%) (Auto) 0.6, Neutrophils # (Auto ) 10.81, Lymphocytes # (Auto) 1.79, Monocytes # (Auto) 1.67, Eosinophils # (Auto ) 0.29, Basophils # (Auto) 0.09 05/13/17 06:10 Test 05/13/17 06:10 White Blood Count 14.69 K/uL (4.8-10.8) Red Blood Count 4.30 M/uL (4.7-6.1) Hemoglobin 14.5 g/dL (14.0-18.0) Hematocrit 41.2 % (42-52) Mean Corpuscular Volume 95.8 fL (80-100) Mean Corpuscular Hemoglobin 33.7 pg (25-34) Mean Corpuscular Hemoglobin Concent 35.2 g/dl (32-36) Platelet Count 113 K/uL (130-400) Mean Platelet Volume 10.6 fL (7.4-10.4) Neutrophils (%) (Auto) 73.5 % Lymphocytes (%) (Auto) 12.2 % Monocytes (%) (Auto) 11.4 % Eosinophils (%) (Auto) 2.0 % Basophils (%) (Auto) 0.6 % Neutrophils # (Auto) 10.81 K/uL (1.4-6.5) Lymphocytes # (Auto) 1.79 K/uL (1.2-3.4) Monocytes # (Auto) 1.67 K/uL (0.11-0.59) Eosinophils # (Auto) 0.29 K/uL (0-0.5) Basophils # (Auto) 0.09 K/uL (0-0.2) RDW Standard Deviation 50.4 fL (36.4-46.3) RDW Coefficient of Variation 14.4 % (11.5-14.5) Immature Granulocyte % (Auto) 0.3 % Immature Granulocyte # (Auto) 0.04 K/uL (0.00-0.02) Prothrombin Time 14.3 SECONDS (9.0-12.0) Prothromb Time International Ratio 1.4 (0.9-1.1) Activated Partial Thromboplast Time 30.8 SECONDS (21.0-31.0) Partial Thromboplastin Ratio 1.2 Urine Color DK YELLOW Urine Appearance CLEAR (CLEAR) Urine pH 5.5 (4.5-7.5) Urine Specific [place] 1.021 (1.000-1.030) Urine Protein NEG (NEG) Urine Glucose (UA) NEG (NEG) Urine Ketones NEG (NEG) Urine Occult Blood NEG (NEG) Urine Nitrite NEG (NEG) Urine Bilirubin NEG (NEG) Urine Urobilinogen NEG (NEG) Urine Leukocyte Esterase TRACE (NEG) Urine WBC (Auto) 1-5 /hpf (0-5) Urine RBC (Auto) 0-4 /hpf (0-4) Urine Hyaline Casts (Auto) 1-5 /lpf (0-5) Urine Epithelial Cells (Auto) 5-10 /lpf (0-5) Urine Bacteria (Auto) NEG (NEG) Anion Gap 9.0 mmol/L (3-11) Est Creatinine Clear Calc Drug Dose 91.2 ml/min Estimated GFR () 105.1 Estimated GFR (Non- 90.7 BUN/Creatinine Ratio 11.0 (10-20) Calcium Level 8.9 mg/dl (8.5-10.1) Total Bilirubin 2.4 mg/dl (0.2-1) Direct Bilirubin 1.1 mg/dl (0-0.2) Aspartate Amino Transf (AST/SGOT) 40 U/L (15-37) Alanine Aminotransferase (ALT/SGPT) 30 U/L (12-78) Alkaline Phosphatase 185 U/L (45-117) Total Protein 7.5 gm/dl (6.4-8.2) Albumin 3.0 gm/dl (3.4-5.0) Lipase 228 U/L (73-393) Laboratory results as reviewed by me. Medications Administered Medications (Trade) Dose Ordered Sig/Lisa Route Start Time Stop Time Status Last Admin Dose Admin Sodium Chloride 1,000 ml @ 75 mls/hr [id number] STAT IV 05/13/17 05:54 05/13/17 17:29 DC 05/13/17 06:17 75 MLS/HR Ondansetron HCl (Zofran Inj) 4 mg NOW STAT IV 05/13/17 05:54 05/13/17 05:56 DC 05/13/17 06:17 4 MG Morphine Sulfate (MoRPHine SULFATE INJ) 2 mg STK-MED ONCE .ROUTE 05/13/17 06:35 05/13/17 06:36 DC 05/13/17 06:39 2 MG Morphine Sulfate (MoRPHine SULFATE INJ) 4 mg STK-MED ONCE .ROUTE 05/13/17 06:36 05/13/17 06:37 DC 05/13/17 06:38 4 MG Cefoxitin Sodium (Mefoxin IV) 2,000 mg NOW STAT IV 05/13/17 06:57 05/13/17 06:58 DC 05/13/17 07:44 2,000 MG Morphine Sulfate (MoRPHine SULFATE INJ) 2 mg STK-MED ONCE .ROUTE 05/13/17 16:43 05/13/17 16:44 DC 05/13/17 16:45 2 MG ED Course 0550: The patient was evaluated in room B12. A complete history and physical exam was performed. 0730: Upon reevaluation, the patient is stable. Discussed results and treatment plan with the patient. He verbalized understanding and agreement with the treatment plan. Discussed the patient's case with []. The patient will be evaluated for further management. Medical Decision Differential: Cholecystitis, Gallbladder disfunction, Hepatic Disfunction, Gastritis/PUD, Renal Colic, Pancreatitis, ACS, Aortic Pathology, amongst other pathologies entertained. 41 yr old male arrives with complaint of RUQ abdominal pain. He is cirrhotic with elevated MELD score and known chronic cholecystitis. Periodic admissions to [facility] and [facility] for flare of cholecystitis requiring IV abx. Today with similar symptoms and found to have elevated WBC. Consistent with acute on chronic cholecystitis and thus ordered empiric abx. US ordered however this is still pending after several hours after ordering. Given pain, wbc elevation and history I feel he will need to come in to hospital. Patient states clearly he is not a candidate for surgery thus consulted hospital team who has previously admitted him. He has no evidence of bowel obstruction at this time and his current LFTs/INR are stable compare to previous work-ups. Discussed with hospitalist who will evaluate patient in emergency department, US pending. Medication Reconcilliation Current Medication List: was personally reviewed by me Blood Pressure Screening Patient's blood pressure: Normal blood pressure Blood pressure disposition: Did not require urgent referral Consults Time Called: 0725 Consulting Physician: Dr. De La Garza - HospitalistMónica Returned Call: 0730 Discussed the patient's case. The patient will be evaluated for further treatment and disposition. Impression Primary Impression: Acute on chronic cholecystitis Scribe Attestation The scribe's documentation has been prepared under my direction and personally reviewed by me in its entirety. I confirm that the note above accurately reflects all work, treatment, procedures, and medical decision making performed by me. Departure Information Dispostion Being Evaluated By Hospitalist Referrals Michelle Borrego D.O. (PCP) Patient Instructions My [facility]
[2017-05-13] MEDS ORDERED: MoRPHine SULFATE 2 MG/ML CARP ONE ×2 (06:35→16:43)
[2017-05-13] MEDS ORDERED: MoRPHine SULFATE 4 MG/ML 1 ML CARP\\VIAL ONE (06:36)
[2017-05-13 06:37] LABS: INR 1.4 (0.9-1.1); PTT PATIENT 30.8 SECONDS (21.0-31.0)
[2017-05-13 06:42] LABS: CALCIUM 8.9 mg/dl (8.5-10.1); CREATININE 1.01 mg/dl (0.60-1.40); POTASSIUM 4.2 mmol/L (3.5-5.1)
[2017-05-13 06:43] LABS: BASO % 0.6 %; BASO ABS # 0.09 K/uL (0-0.2); EOS ABS # 0.29 K/uL (0-0.5); HEMATOCRIT 41.2 % (42-52); HEMOGLOBIN 14.5 g/dL (14.0-18.0); IG# 0.04 K/uL (0.00-0.02); LYMPH % 12.2 %; LYMPH ABS # 1.79 K/uL (1.2-3.4); MEAN CELL VOLUME 95.8 fL (80-100); MEAN CORPUSCULAR HEMOGLOBIN 33.7 pg (25-34); MEAN CORPUSCULAR HGB CONC 35.2 g/dl (32-36); MEAN PLATELET VOLUME 10.6 fL (7.4-10.4); MONO % 11.4 %; MONO ABS # 1.67 K/uL (0.11-0.59); NEUT % 73.5 %; NEUT ABS # 10.81 K/uL (1.4-6.5); PLATELET COUNT 113 K/uL (130-400); RED CELL DISTRIBUTION WIDTH CV 14.4 % (11.5-14.5); RED CELL DISTRIBUTION WIDTH SD 50.4 fL (36.4-46.3); WHITE BLOOD COUNT 14.69 K/uL (4.8-10.8)
[2017-05-13 06:45] LABS: TOTAL PROTEIN 7.5 gm/dl (6.4-8.2)
[2017-05-13] MEDS ORDERED: CEFOXITIN SOD 2 GM VIAL IV STA (06:57)
--- NOTE | 2017-05-13 09:20 | DIAGNOSTIC IMAGING REPORT ---
GALLBLADDER-ABD LIMITED CLINICAL HISTORY: Recurrent RUQ abdominal pain, worsening nausea TECHNIQUE: Ultrasound COMPARISON STUDY: 11/01/2016 FINDINGS: Gallbladder continues to show a movable sludge ball within the gallbladder lumen. There are no shadowing gallstones. Gallbladder wall and biliary ductal system are normal in terms of caliber. Stable fatty infiltration of liver. Stable prominence of the common bile duct at 1 cm. Right kidney remains negative for hydronephrosis. IMPRESSION: Stable sludge ball within the gallbladder lumen. No shadowing gallstones. Unchanging biliary ductal prominence at 1 cm. Mild stable fatty infiltration of liver. The above report was generated using voice recognition software. It may contain grammatical, syntax or spelling errors. Electronically signed by: Reinaldo Hernandez M.D. 05/13/2017 9:18 AM Dictated Date/Time: 05/13/2017 9:15 AM
--- NOTE | 2017-05-13 11:18 | Medical Consult ---
Consultation Date of Consultation: May 13, 2017. Attending Physician: Reason for Consultation: ER consult for possible admission for biliary colic/RUQ abdominal pain History of Present Illness Pt is 41 y/o M with PMH alcoholic cirrhosis, chronic cholecystitis, grade 2 esophageal varices, chronic anemia, chronic thrombocytopenia presented to ER with c/o RUQ abdominal pain x several hours prior to ER arrival. Pt describes pain as sharp pain to RUQ with radiation through back with associated nausea. rated pain 10/10 on pain scale. Tried Oxycodone IR 5mg 2 tabs with onset of pain without relief and came to ER. Last BM 10:00PM last night. States ate bologna hoagie last night for dinner. Denies known fever/chills, V/D/C, melena, hematochezia, HEREDIA, dizziness, syncope, vision changes, neck pain, CP, SOB, orthopnea, palpitations, cough, sore throat, choking, otalgia, rhinorrhea, paresthesias, weakness, extremity weakness, extremity edema, rashes, urinary symptoms. Hx out pt gallbladder u/s on 04/30/17: Diffusely increased echogenicity of the liver and nodular contour. Consider cirrhosis. Probable tumefactive sludge and gallstones within the gallbladder lumen. mass lesion not excluded. No sonographic findings to suggest cholecystitis. No evidence of intra or extrahepatic biliary ductal dilatation. Pt hx ascites in past, no paracentesis since 2016. Hx grade 2 esophageal varices , no hx bleeding in past. On lasix, spironolactone, nadolol, ursodiol. Pt follows with [place] team [place] [facility] [place] Dr Marcio Wasserman. Seen on 04/21/17 and at that time MELD score of 13 and not liver transplant candidate at current time. Pt was scheduled to have yearly EGD tomorrow with Dr Bond here at [facility]. Today in ER: WBC: 14, total bili: 2.4 (was 1.5 on 04/21/17). Direct bili: 1.1. AST: 40 (was 36 ). ALT: 30. Alk Phos: 185 (was 165). Lipase: 228. INR: 1.4. Gallbladder abd: stable sludge ball within the gallbladder lumen, no shadowing gallstones. Unchanging biliary ductal prominence at 1cm. Mild stable fatty infiltration of liver. Pt was given Zofran, total of 12mg morphine, Mefoxin 2g, NSS running at 75ml/hr in ER. Past Medical/Surgical History Medical Problems: (1) Acute on chronic cholecystitis Status: Acute (2) Biliary colic Status: Acute (3) Biliary obstruction Status: Acute (4) Gallstones Status: Acute (5) Hyperbilirubinemia Status: Acute (6) Intractable abdominal pain Status: Acute (7) Right otitis media Status: Acute (8) Right upper quadrant abdominal pain Status: Acute (9) RUQ abdominal pain Status: Acute Family History Asthma MOTHER Diabetes mellitus MOTHER Stroke FATHER Social History Smoking Status: Never Smoker Smokeless Tobacco Use: Yes Alcohol Use: none Drug Use: none Marital Status: single Occupation Status: unemployed Allergies Coded Allergies: Aspirin (Verified Allergy, Unknown, THINS BLOOD, NOSE BLEEDS, 05/13/17) Current Inpatient Medications Current Inpatient Medications Medications (Trade) Dose Ordered Sig/Lisa Route Start Time Stop Time Status Last Admin Dose Admin Sodium Chloride 1,000 ml @ 75 mls/hr [id number] STAT IV 05/13/17 05:54 05/13/17 19:13 05/13/17 06:17 75 MLS/HR Review of Systems See HPI for pertinent positives & negatives. All other systems reviewed and were otherwise negative Physical Exam Date Time Temp Pulse Resp B/P (MAP) Pulse Ox O2 Delivery O2 Flow Rate FiO2 05/13/17 09:50 61 16 113/67 96 Room Air 05/13/17 07:45 63 18 109/59 94 Room Air 05/13/17 05:42 36.7 62 18 103/66 95 Room Air General Appearance: WD/WN, no apparent distress Head: normocephalic, atraumatic Eyes: normal inspection, PERRL, EOMI, sclerae normal ENT: hearing grossly normal, pharynx normal, + pertinent finding (mucous membranes moist) Neck: supple, no JVD, trachea midline Respiratory/Chest: lungs clear, normal breath sounds, no respiratory distress, no accessory muscle use Cardiovascular: regular rate, rhythm, no murmur, normal peripheral pulses Abdomen/GI: normal bowel sounds, soft, + pertinent finding (+mild to moderate tenderness to palpation RUQ without rebound or guarding) Extremities/Musculoskelatal: normal inspection, normal capillary refill, no pedal edema, normal range of motion, non-tender Neurologic/Psych: alert, normal mood/affect, oriented x 3 Skin: normal color, warm/dry Laboratory Results Last 24 Hours Test 05/13/17 06:10 White Blood Count 14.69 K/uL Red Blood Count 4.30 M/uL Hemoglobin 14.5 g/dL Hematocrit 41.2 % Mean Corpuscular Volume 95.8 fL Mean Corpuscular Hemoglobin 33.7 pg Mean Corpuscular Hemoglobin Concent 35.2 g/dl Platelet Count 113 K/uL Mean Platelet Volume 10.6 fL Neutrophils (%) (Auto) 73.5 % Lymphocytes (%) (Auto) 12.2 % Monocytes (%) (Auto) 11.4 % Eosinophils (%) (Auto) 2.0 % Basophils (%) (Auto) 0.6 % Neutrophils # (Auto) 10.81 K/uL Lymphocytes # (Auto) 1.79 K/uL Monocytes # (Auto) 1.67 K/uL Eosinophils # (Auto) 0.29 K/uL Basophils # (Auto) 0.09 K/uL RDW Standard Deviation 50.4 fL RDW Coefficient of Variation 14.4 % Immature Granulocyte % (Auto) 0.3 % Immature Granulocyte # (Auto) 0.04 K/uL Prothrombin Time 14.3 SECONDS Prothromb Time International Ratio 1.4 Activated Partial Thromboplast Time 30.8 SECONDS Partial Thromboplastin Ratio 1.2 Urine Color DK YELLOW Urine Appearance CLEAR Urine pH 5.5 Urine Specific [place] 1.021 Urine Protein NEG Urine Glucose (UA) NEG Urine Ketones NEG Urine Occult Blood NEG Urine Nitrite NEG Urine Bilirubin NEG Urine Urobilinogen NEG Urine Leukocyte Esterase TRACE Urine WBC (Auto) 1-5 /hpf Urine RBC (Auto) 0-4 /hpf Urine Hyaline Casts (Auto) 1-5 /lpf Urine Epithelial Cells (Auto) 5-10 /lpf Urine Bacteria (Auto) NEG Sodium Level 138 mmol/L Potassium Level 4.2 mmol/L Chloride Level 107 mmol/L Carbon Dioxide Level 22 mmol/L Anion Gap 9.0 mmol/L Blood Urea Nitrogen 11 mg/dl Creatinine 1.01 mg/dl Est Creatinine Clear Calc Drug Dose 91.2 ml/min Estimated GFR () 105.1 Estimated GFR (Non- 90.7 BUN/Creatinine Ratio 11.0 Random Glucose 144 mg/dl Calcium Level 8.9 mg/dl Total Bilirubin 2.4 mg/dl Direct Bilirubin 1.1 mg/dl Aspartate Amino Transf (AST/SGOT) 40 U/L Alanine Aminotransferase (ALT/SGPT) 30 U/L Alkaline Phosphatase 185 U/L Total Protein 7.5 gm/dl Albumin 3.0 gm/dl Lipase 228 U/L GALLBLADDER-ABD LIMITED CLINICAL HISTORY: Recurrent RUQ abdominal pain, worsening nausea TECHNIQUE: Ultrasound COMPARISON STUDY: 11/01/2016 FINDINGS: Gallbladder continues to show a movable sludge ball within the gallbladder lumen. There are no shadowing gallstones. Gallbladder wall and biliary ductal system are normal in terms of caliber. Stable fatty infiltration of liver. Stable prominence of the common bile duct at 1 cm. Right kidney remains negative for hydronephrosis. IMPRESSION: Stable sludge ball within the gallbladder lumen. No shadowing gallstones. Unchanging biliary ductal prominence at 1 cm. Mild stable fatty infiltration of liver. Assessment & Plan ACUTE ON CHRONIC CHOLECYSTITIS Today. WBC: 14, total bili: 2.4 (was 1.5 on 04/21/17). Direct bili: 1.1. AST: 40 (was 36). ALT: 30. Alk Phos: 185 (was 165). Lipase: 228. INR: 1.4. Gallbladder abd: stable sludge ball within the gallbladder lumen, no shadowing gallstones. Unchanging biliary ductal prominence at 1cm. Mild stable fatty infiltration of liver. Pt was given Zofran, total of 12mg morphine, Mefoxin 2g, NSS running at 75ml/hr in ER. Continues to rate pain 5/10 on pain scale. Appears to be in no apparent distress. ETOH CIRRHOSIS Hx EV, ascites MELD score 13 on 04/21/17, score calculated 14 today. No active bleeding. Spoke to Dr Carter - general surgeon. He recommends pt needs tertiary care center for possible surgery and is not willing to accept pt at this facility. Spoke to [facility] transfer center. Spoke to Dr Ramirez - hospitalist [facility]. He is willing to accept pt. Transfer center will contact [facility] ER to set up transfer at this time. Anticipate pt will need evaluated by liver transplant team at [facility] also. Disposition: Transfer pt to [facility] Full Code Follows with Dr Borrego for routine care Pt was seen with Dr De La Garza. See addendum Attending Addendum: The patient was seen and examined in ER Recurrent Cholecystitis in the setting of High Risk comorbid condition Was seen by surgery here in [facility] and also in [place] and was told about the high risk condition Has RUQ pain with increase WCC-US suggestive of Cholecystitis Discussed with surgery-advised to transfer to tertiary center in case he will need surgery Pt remains hemodynamically stable with tender RUQ-no guarding and or rigidity. Labs and Imaging studies were reviewed Discussed with the Hospitalist in [facility] and the patient was transferred Discussed with the Patient and the Father Agreeable to the decision. Dr Ricky De La Garza Additional Copies To Michelle Borrego D.O.
[2017-05-13] MEDS ORDERED: MoRPHine SULFATE 2 MG/ML CARP IV PRN (16:45)
[2017-05-13 17:12] VITALS: BP 116/69; PULSE 62; O2SAT 93
== END 2017-05-13 17:13 | disposition short-term general hospital (02) ==
LOC: C.EDB 05:39
DX: K81.2 Acute cholecystitis with chronic cholecystitis (principal); R10.11 Right upper quadrant pain; K70.30 Alcoholic cirrhosis of liver without ascites; F10.21 Alcohol dependence, in remission

== ENCOUNTER 2017-05-18 02:01 | Inpatient (IN) | payer OTHER ==
[~2017-05-18] VITALS: Ht 172.7 cm; Wt 77.4 kg
[2017-05-18] MEDS ORDERED: ONDANSETRON INJ 2 MG/ML 2 ML VIAL IV STA (02:46)
[2017-05-18] MEDS ORDERED: MoRPHine SULFATE 2 MG/ML CARP IV STA (02:46)
[2017-05-18] MEDS ORDERED: SODIUM CHLORIDE 0.9% 1000ML 1,000 ML IV ONE (03:00)
[2017-05-18 03:10] LABS: BASO % 0.6 %; BASO ABS # 0.05 K/uL (0-0.2); EOS % 4.7 %; EOS ABS # 0.38 K/uL (0-0.5); HEMATOCRIT 40.9 % (42-52); HEMOGLOBIN 14.4 g/dL (14.0-18.0); IG# 0.01 K/uL (0.00-0.02); LYMPH ABS # 2.43 K/uL (1.2-3.4); MEAN CORPUSCULAR HEMOGLOBIN 33.8 pg (25-34); MEAN CORPUSCULAR HGB CONC 35.2 g/dl (32-36); MEAN PLATELET VOLUME 10.5 fL (7.4-10.4); MONO % 14.2 %; MONO ABS # 1.15 K/uL (0.11-0.59); NEUT % 50.4 %; NEUT ABS # 4.08 K/uL (1.4-6.5); PLATELET COUNT 108 K/uL (130-400); RED CELL DISTRIBUTION WIDTH CV 14.3 % (11.5-14.5); RED CELL DISTRIBUTION WIDTH SD 49.8 fL (36.4-46.3)
[2017-05-18 03:21] LABS: INR 1.8 (0.9-1.1); PTT PATIENT 33.7 SECONDS (21.0-31.0)
[2017-05-18 03:28] LABS: CALCIUM 8.3 mg/dl (8.5-10.1); CREATININE 0.86 mg/dl (0.60-1.40); POTASSIUM 3.9 mmol/L (3.5-5.1)
[2017-05-18 03:31] LABS: TOTAL PROTEIN 7.6 gm/dl (6.4-8.2)
[2017-05-18] MEDS ORDERED: MoRPHine SULFATE 4 MG/ML 1 ML CARP\\VIAL IV ONE (04:15)
[2017-05-18] MEDS ORDERED: OXYCODONE HCL IR 5 MG TAB (IMMEDIATE RELEASE) PO PRN (06:30)
[2017-05-18] MEDS ORDERED: PROCHLORPERAZINE INJ 5 MG in SYRINGE 4 ML IV PRN (06:30)
[2017-05-18] MEDS ORDERED: LORAZEPAM 2 MG/ML 1 ML VIAL IV PRN (06:30)
[2017-05-18] MEDS ORDERED: ACETAMINOPHEN 325 MG TAB PO PRN (06:30)
[2017-05-18 06:52] VITALS: O2SAT 96; Ht 172.7 cm; Wt 77.4 kg
[2017-05-18 07:00] VITALS: BP 118/73; PULSE 56; TEMP 36.5; O2SAT 97
--- NOTE | 2017-05-18 07:52 | EMERGENCY ROOM VISIT NOTE ---
History First contact with patient: 02:22 Chief Complaint: ABDOMINAL PAIN Stated Complaint: PANCREATITIS Nursing Triage Summary: pt reports pain under right ribs that radiates into back with nausea since last night. pt was seen here friday for gall bladder attack. pt was sent to [facility] and they were unable to operate due to liver disease. History of Present Illness The patient is a 41 year old male who presents to the Emergency Room with complaints of right upper quadrant abdominal pain worsening over the past one to 2 days. The patient has an established history of chronic cholecystitis. He has chronic liver failure secondary to alcohol abuse in the past. The patient was last seen in the emergency department here 5 days ago for similar complaints. He had ultrasound and blood work at that visit, and was ultimately transferred to [facility] in [place]. After evaluation in [place] by surgery, GI, and the transplant team, the patient was not felt to be a surgical candidate. He states that he is not currently on a transplant list, and is frustrated because of his pain. He has not had anything to eat or drink for roughly 16 hours as this worsens his pain. He rates his discomfort an 8/10 and sharp. Review of Systems More than 10 systems were reviewed and otherwise negative with the exception of history of present illness. Past Medical/Surgical History Medical Problems: (1) Alcohol withdrawal seizure (2) Alcoholic cirrhosis (3) Esophageal varices (4) Gall bladder disease (5) History of alcohol abuse (6) History of hyponatremia (7) History of macrocytic anemia (8) History of thrombocytopenia (9) Pancreatitis (10) Portal hypertensive gastropathy Surgical Problems: (1) S/P tonsillectomy Family History Asthma MOTHER Diabetes mellitus MOTHER Stroke FATHER Social History Smoking Status: Never Smoker Alcohol Use: other Drug Use: none Marital Status: single Occupation Status: unemployed Current/Historical Medications Scheduled Buspirone Hcl (Buspar), 5 MG PO BID Folic Acid (Folvite), 1 MG PO QAM Furosemide (Lasix), 20 MG PO QAM Nadolol (Corgard), 20 MG PO HS Omeprazole (Prilosec), 20 MG PO QAM Potassium Chloride (K-Tabs), 10 MEQ PO QAM Probiotic Product (Probiotic), 1 DOSE PO QAM Spironolactone (Aldactone), 25 MG PO QAM Ursodiol (Ursodiol), 1 TAB PO BID Scheduled PRN Oxycodone Ir (Roxicodone Ir), 1-2 TAB PO Q4H PRN for Severe Pain Zolpidem Tartrate (Ambien), 5 MG PO HS PRN for Sleep Physical Exam Vital Signs Date Time Temp Pulse Resp B/P (MAP) Pulse Ox O2 Delivery O2 Flow Rate FiO2 05/18/17 05:21 55 16 112/71 97 Room Air 05/18/17 04:16 53 16 114/71 97 Room Air 05/18/17 03:20 51 16 114/72 95 Room Air 05/18/17 02:06 36.5 54 18 132/77 96 Room Air Physical Exam VITALS: Vitals are noted on the nurse's note and reviewed by myself. Vital signs stable. GENERAL: Well-developed, well-nourished, white male, who is in no acute distress and resting comfortably. EYES: Pupils equal round and reactive to light and accommodation. Conjunctivae with icterus. Extraocular movements intact. HEART: Regular rate and rhythm without murmurs gallops or rubs. LUNGS: Clear to auscultation bilaterally without wheezes, rales or rhonchi. No retractions or accessory muscle use. ABDOMEN: Positive normal bowel sounds x 4. Soft with positive epigastric quadrant tenderness on palpation. No lower abdominal tenderness. No CVA tenderness. MUSCULOSKELETAL: No muscle atrophy, erythema, or edema noted. Full range of motion without joint tenderness in all extremities. Medical Decision & Procedures ER Provider Diagnostic Interpretation: Preliminary Findings Only See Final Report For Complete Findings US RUQ: Liver measures up to 18.1 cm with increased echogenicity suggesting hepatic steatosis. Simple cyst noted in the liver. Gallbladder is distended. There is either non-shadowing stones versus tumefactive sludge within the gallbladder neck. No gallbladder wall thickening. Trace pericholecystic fluid. Common bile duct is prominent measuring 11.7 mm. Correlate with serum enzymes for biliary obstruction is advised. Right kidney is unremarkable. Laboratory Results 05/18/17 02:59 Red Blood Count 4.26, Mean Corpuscular Volume 96.0, Mean Corpuscular Hemoglobin 33.8, Mean Corpuscular Hemoglobin Concent 35.2, Mean Platelet Volume 10.5, Neutrophils (%) (Auto) 50.4, Lymphocytes (%) (Auto) 30.0, Monocytes (%) (Auto) 14.2, Eosinophils (%) (Auto) 4.7, Basophils (%) (Auto) 0.6, Neutrophils # (Auto ) 4.08, Lymphocytes # (Auto) 2.43, Monocytes # (Auto) 1.15, Eosinophils # (Auto ) 0.38, Basophils # (Auto) 0.05 05/18/17 02:59 Test 05/18/17 02:50 05/18/17 02:59 Urine Color DK YELLOW Urine Appearance CLEAR (CLEAR) Urine pH 6.0 (4.5-7.5) Urine Specific [place] 1.026 (1.000-1.030) Urine Protein NEG (NEG) Urine Glucose (UA) NEG (NEG) Urine Ketones NEG (NEG) Urine Occult Blood 2+ (NEG) Urine Nitrite NEG (NEG) Urine Bilirubin NEG (NEG) Urine Urobilinogen NEG (NEG) Urine Leukocyte Esterase NEG (NEG) Urine WBC (Auto) 1-5 /hpf (0-5) Urine RBC (Auto) >30 /hpf (0-4) Urine Hyaline Casts (Auto) 0 /lpf (0-5) Urine Epithelial Cells (Auto) 0-5 /lpf (0-5) Urine Bacteria (Auto) NEG (NEG) Urine Opiates Screen NEG (NEG) Urine Methadone, Qualitative NEG (NEG) Urine Barbiturates NEG (NEG) Urine Phencyclidine (PCP) Level NEG (NEG) Ur Amphetamine/Methamphetamine NEG (NEG) MDMA (Ecstasy) Screen NEG (NEG) Urine Benzodiazepines Screen NEG (NEG) Urine Cocaine Metabolite NEG (NEG) Urine Marijuana (THC) NEG (NEG) White Blood Count 8.10 K/uL (4.8-10.8) Red Blood Count 4.26 M/uL (4.7-6.1) Hemoglobin 14.4 g/dL (14.0-18.0) Hematocrit 40.9 % (42-52) Mean Corpuscular Volume 96.0 fL (80-100) Mean Corpuscular Hemoglobin 33.8 pg (25-34) Mean Corpuscular Hemoglobin Concent 35.2 g/dl (32-36) Platelet Count 108 K/uL (130-400) Mean Platelet Volume 10.5 fL (7.4-10.4) Neutrophils (%) (Auto) 50.4 % Lymphocytes (%) (Auto) 30.0 % Monocytes (%) (Auto) 14.2 % Eosinophils (%) (Auto) 4.7 % Basophils (%) (Auto) 0.6 % Neutrophils # (Auto) 4.08 K/uL (1.4-6.5) Lymphocytes # (Auto) 2.43 K/uL (1.2-3.4) Monocytes # (Auto) 1.15 K/uL (0.11-0.59) Eosinophils # (Auto) 0.38 K/uL (0-0.5) Basophils # (Auto) 0.05 K/uL (0-0.2) RDW Standard Deviation 49.8 fL (36.4-46.3) RDW Coefficient of Variation 14.3 % (11.5-14.5) Immature Granulocyte % (Auto) 0.1 % Immature Granulocyte # (Auto) 0.01 K/uL (0.00-0.02) Prothrombin Time 18.5 SECONDS (9.0-12.0) Prothromb Time International Ratio 1.8 (0.9-1.1) Activated Partial Thromboplast Time 33.7 SECONDS (21.0-31.0) Partial Thromboplastin Ratio 1.3 Anion Gap 7.0 mmol/L (3-11) Est Creatinine Clear Calc Drug Dose 107.1 ml/min Estimated GFR () 123.1 Estimated GFR (Non- 106.2 BUN/Creatinine Ratio 12.6 (10-20) Calcium Level 8.3 mg/dl (8.5-10.1) Magnesium Level 1.9 mg/dl (1.8-2.4) Total Bilirubin 1.4 mg/dl (0.2-1) Aspartate Amino Transf (AST/SGOT) 30 U/L (15-37) Alanine Aminotransferase (ALT/SGPT) 25 U/L (12-78) Alkaline Phosphatase 178 U/L (45-117) Total Protein 7.6 gm/dl (6.4-8.2) Albumin 3.0 gm/dl (3.4-5.0) Globulin 4.6 gm/dl (2.5-4.0) Albumin/Globulin Ratio 0.7 (0.9-2) Lipase 1370 U/L (73-393) Ethyl Alcohol mg/dL < 3.0 mg/dl (0-3) Medications Administered Medications (Trade) Dose Ordered Sig/Lisa Route Start Time Stop Time Status Last Admin Dose Admin Sodium Chloride 1,000 ml @ 999 mls/hr Q1H1M ONCE IV 05/18/17 03:00 05/18/17 04:00 DC 05/18/17 03:05 999 MLS/HR Ondansetron HCl (Zofran Inj) 4 mg NOW STAT IV 05/18/17 02:46 05/18/17 02:48 DC 05/18/17 03:05 4 MG Morphine Sulfate (MoRPHine SULFATE INJ) 2 mg NOW STAT IV 05/18/17 02:46 05/18/17 02:48 DC 05/18/17 03:05 2 MG Morphine Sulfate (MoRPHine SULFATE INJ) 4 mg NOW ONCE IV 05/18/17 04:15 05/18/17 04:16 DC 05/18/17 04:15 4 MG ED Course Physical exam and history were performed. Nursing notes, EMR, and Medication List were personally reviewed. Patient appears to have right quadrant abdominal pain for the past one to 2 days. The patient was seen at this facility 5 days ago and transfered to [facility], where he was evaluated by multiple specialists, and discharged home. The patient has not been doing well since returning home. IV access was established and labs were obtained. The patient was hydrated with normal saline. He was given a small amount of pain medication and nausea medicine. I did elect to repeat ultrasound due to the patient's chronic symptoms. The patient's blood work is as above and was reviewed. He does not have a significantly elevated white blood cell count or anemia. His white count is improved from a few days ago. His transaminases are not significantly elevated today. INR is 1.8. Lipase is greater than 1300 appears new from a few days ago. Calculated MELD score is 14. The patient ultrasound is as above and does not show distinct acute cholecystitis. He does appear to have some chronic findings, as well as possible obstructive process. Overall the patient does not appear well for discharge home. I discussed options of care with the patient, and he adamantly refuses to go back to [place] today. I discussed the case with the on-call [facility] hospitalist, who will evaluate the patient here in this department. Please see their dictation for further patient course and disposition. The chart was completed utilizing Dragon Speech Voice Recognition Software. Grammatical errors, random word insertions, pronoun errors, and incomplete sentences are an occasional consequence of this system due to software limitations, ambient noise, and hardware issues. Any formal questions or concerns about the content, text, or information contained within the body of this dictation should be directly addressed to the provider for clarification. . Medical Decision Differential diagnosis: Etiologies such as appendicitis, diverticulitis, PUD, biliary pathology, UTI, pancreatitis, obstruction, mesenteric ischemia, aortic pathology, infections, inflammatory bowel disease, renal colic, as well as others were entertained. Impression Primary Impression: Pancreatitis Departure Information Dispostion Still a Patient Condition GOOD Referrals Michelle Borrego D.OJenny (PCP) Forms Call Back Authorization, HOME CARE DOCUMENTATION FORM, IMPORTANT VISIT INFORMATION Patient Instructions [facility] Problem Qualifiers Primary Impression: Pancreatitis Chronicity: acute Pancreatitis type: unspecified pancreatitis type Acute pancreatitis complication: unspecified Qualified Codes: K85.90 - Acute pancreatitis without necrosis or infection, unspecified
--- NOTE | 2017-05-18 08:16 | HISTORY & PHYSICAL EXAMINATION ---
DATE OF ADMISSION: 05/18/2017 PRIMARY CARE PHYSICIAN: Dr. Borrego. CHIEF COMPLAINT: Abdominal pain. HISTORY OF PRESENT ILLNESS: History obtained from patient and records. Medical history significant for alcoholic cirrhosis, past alcohol abuse, chronic thrombocytopenia, history of esophageal, cholecystitis. Recent confinement at [facility] from 05/13/2017-05/16/2017 for abdominal pain attributed to chronic cholecystitis. Patient evaluated by surgery. Not a surgical candidate due to liver cirrhosis and possible liver transplant in the future as per records. As per patient, he was discharged still with epigastric pain, sharp, sometimes going to his back, worse on lying down. No alcohol intake. No fever, no chills. MEDICAL HISTORY: As above. SURGERIES: He has had tonsillectomy. HOME MEDICATIONS: Include BuSpar, Folvite, Lasix, Corgard, Prilosec, OxyIR, probiotic, K-Tabs, Aldactone, ursodiol, Ambien. ALLERGIES: ALLERGIC TO ASPIRIN. FAMILY HISTORY: Diabetes. PERSONAL AND SOCIAL HISTORY: Nonsmoker. 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 REVIEW OF SYSTEMS: As per HPI, all 10 systems reviewed. All other ROS negative. PHYSICAL EXAMINATION: VITAL SIGNS: Blood pressure was noted to be 132/77, pulse rate 60, RR 18, T 37 O2 sats 97 on room air. GENERAL: Noted to be slightly uncomfortable, no respiratory distress. SKIN: Normal color, warm. HEENT: [place] palpebral conjuctivae. No ptosis. Dry mucosa. NECK: Supple, nontender. CHEST: Clear to auscultation. No tenderness. HEART: Regular rate and rhythm. No murmur. ABDOMEN: Some distention. No exquisite tenderness. EXTREMITIES: No edema, no gross deformities. No tenderness. NEUROLOGIC: Coherent. No gross focality. LABORATORIES: Hemoglobin 14.4, white cell count 8.1, platelets 108. Sodium 139, potassium 3.9, BUN 11, creatinine 0.8, glucose was noted to be 92, lipase was 1100. Ultrasound of the gallbladder initial read showed increased echogenicity suggesting hepatic steatosis, gallbladder distended, non-shadowing stone versus sludge, wall thickening, trace pericholecystic fluid. Common bile duct is prominent measuring 11.7 mm. ASSESSMENT: 1. Gallstone pancreatitis Elective cholecystectomy not a straightforward decision in a cirrhotic patient as per prior Surgery evaluations. 2. alcoholic cirrhosis, no overt decompensation 3. Chronic thrombocytopenia, history of esophageal varices secondary to above 4. past alcohol abuse. PLAN: GMF analgesia, IV fluids. Bowel rest. GI consult RE acute pancreatitis. DVT prophylaxis, SCDs RE thrombocytopenia. Full code. MTDD
[2017-05-18] MEDS ORDERED: LORAZEPAM INJ 0.5 MG in SYRINGE 0.75 ML IV PRN (08:30)
[2017-05-18 08:45] VITALS: O2SAT 97
[2017-05-18] MEDS ORDERED: PROBIOTIC PRODUCT PO SCH (09:00)
[2017-05-18] MEDS: PANTOprazole SOD 40 MG TAB PO SCH (09:25)
[2017-05-18] MEDS: URSODIOL 300 MG CAP PO SCH ×2 (09:25→20:32)
[2017-05-18] MEDS: LACTATED RINGER'S 1000ML 1,000 ML IV SCH ×4 (09:25→22:38)
--- NOTE | 2017-05-18 09:52 | DIAGNOSTIC IMAGING REPORT ---
ABDOMINAL ULTRASOUND, RIGHT UPPER QUADRANT HISTORY: RUQ pain. Hx chronic cholecystitis and liver failure. COMPARISON: MRCP August 10, 2016 and right upper quadrant ultrasound May 13, 2017. FINDINGS: Increased hepatic echogenicity is noted. There is slight nodularity of the liver surface. A few small hepatic cysts are noted. The gallbladder is mildly distended. There is no gallbladder wall thickening. Nonshadowing echogenic foci within the gallbladder neck are noted. These were shown on previous exams. There is mild dilatation of the common bile duct which measures 1.1 cm. This is similar to exam of May 13, 2017. The pancreas is obscured by overlying bowel gas. There is no right hydronephrosis. IMPRESSION: 1. Redemonstration of echogenic nonshadowing material within the gallbladder neck which could reflect sludge or nonshadowing stones. Mild gallbladder distention without significant gallbladder wall thickening. 2. Mild dilatation of the common bile duct which is similar to prior ultrasound. No choledocholithiasis identified although the findings could be correlated with obstructive liver function tests. 3. Slight nodularity of the liver surface which raises the possibility of cirrhosis. Electronically signed by: Fidel Krishnamurthy M.D. 05/18/2017 9:50 AM Dictated Date/Time: 05/18/2017 9:46 AM
--- NOTE | 2017-05-18 11:11 | Gastrointestinal Consultation ---
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 He presented to [facility] earlier this week with abdominal pain located in the right upper quadrant radiating around to the epigastrium and through his back similar to his presentation today. He was transferred from the ER to [place] because of his high risk cholecystectomy given his liver disease. He was evaluated there with blood work MR and CT scans (results below) but most was all unrevealing and unchanged. And then discharged home on . He ate okay on evening and Friday but his pain began again to escalate similar in exactly as in the past in which he presented here to the ER last evening. He was noted to have a new dramatically elevated lipase consistent with pancreatitis which is new for him. He adamantly denies any recent alcohol and has been sober since 12/2015. H Pain started Friday evening about 5-6 hours after eating. States he has had the pain about 3 times over the last year. No fevers or chills, N/V, or change in BMs. Denies any jaundice or icterus. Ascites is well controlled on diuretics. No hx of encephalopathy and patient denies any confusion or mental status changes. Pain is similar but stable to his prior presentations. Past Medical/Surgical History Medical Problems: (1) Acute on chronic cholecystitis Status: Acute (2) Biliary colic Status: Acute (3) Biliary obstruction Status: Acute (4) Gallstones Status: Acute (5) Hyperbilirubinemia Status: Acute (6) Intractable abdominal pain Status: Acute (7) Right otitis media Status: Acute (8) Right upper quadrant abdominal pain Status: Acute (9) RUQ abdominal pain Status: Acute Family History Asthma MOTHER Diabetes mellitus MOTHER Stroke FATHER Social History Smoking Status: Never Smoker Alcohol Use: other Drug Use: none Marital Status: single Occupation Status: unemployed Allergies Coded Allergies: Aspirin (Verified Allergy, Unknown, THINS BLOOD, NOSE BLEEDS, 05/13/17) Current Medications Home Meds and Scripts Medications Dose Route/Sig Max Daily Dose Days Date Category Dose Instructions Roxicodone Ir (Oxycodone HCl) 5 Mg Tab 1-2 Tab PO Q4H PRN 05/06/17 Reported Corgard (Nadolol) 20 Mg Tab 20 Mg PO HS 05/06/17 Reported Ambien (Zolpidem Tartrate) 5 Mg Tab 5 Mg PO HS PRN 05/06/17 Reported Ursodiol 300 Mg Cap 1 Tab PO BID 11/01/16 Reported K-Tabs (Potassium Chloride) 10 Meq Tabcr 10 Meq PO QAM 07/26/16 Reported Folvite (Folic Acid) 1 Mg Tab 1 Mg PO QAM 07/26/16 Reported Prilosec (Omeprazole) 20 Mg Capcr 20 Mg PO QAM 07/26/16 Reported Aldactone (Spironolactone) 25 Mg Tab 25 Mg PO QAM 07/26/16 Reported Buspar (Buspirone Hcl) 15 Mg Tab 5 Mg PO BID 07/26/16 Reported Probiotic (Probiotic Product) 1 Cap Cap 1 Dose PO QAM 07/26/16 Reported [employer] Lasix (Furosemide) 20 Mg Tab 20 Mg PO QAM 07/26/16 Reported Review of Systems Constitutional: + see HPI Eyes: No see HPI, No worsening of vision, No eye pain, No redness, No discharge , No diplopia, No problem reported ENT: No see HPI, No hearing loss, No unusual epistaxis, No nasal symptoms, No sore throat, No tinnitus, No dental problems, No trouble swallowing, No pain on swallowing, No problem reported Cardiac: No see HPI, No chest pain, No orthopnea, No PND, No edema, No claudication, No palpitations, No problem reported Abdomen: + see HPI, No pain, No nausea, No vomiting, No diarrhea, No constipation, No GI bleeding, No dysphagia, No odynophagia, No acolic stools, No jaundice, No dark urine, No problem reported Musculoskeletal: No see HPI, No joint pain, No muscle pain, No swelling, No calf pain, No problem reported Neuro: No see HPI, No memory loss, No paralysis, No weakness, No numbness/ tingling, No vertigo, No balance problems, No problem reported Physical Exam Date Time Temp Pulse Resp B/P (MAP) Pulse Ox O2 Delivery O2 Flow Rate FiO2 05/18/17 07:00 36.5 56 16 118/73 (88) 97 Room Air 05/18/17 06:52 96 Room Air 05/18/17 06:46 63 16 107/65 96 Room Air 05/18/17 05:21 55 16 112/71 97 Room Air 05/18/17 04:16 53 16 114/71 97 Room Air 05/18/17 03:20 51 16 114/72 95 Room Air 05/18/17 02:06 36.5 54 18 132/77 96 Room Air General Appearance: WD/WN, no apparent distress Eyes: normal inspection Neck: supple, no adenopathy Respiratory/Chest: chest non-tender, lungs clear, normal breath sounds Cardiovascular: regular rate, rhythm, no edema, no gallop Abdomen: normal bowel sounds, soft, + tenderness (In the epigastrium without rebound or guarding) Extremities: normal range of motion Neurologic/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 Diffusely increased echogenicity of the liver and nodular contour. Consider cirrhosis. Component of steatosis not excluded. 2. Probable tumefactive sludge and gallstones within the gallbladder lumen. Mass lesion not excluded. 3. No sonographic findings to suggest cholecystitis. 4. No evidence of intra or extrahepatic biliary ductal dilatation. 5. Limited evaluation of pancreas. 6. Normal sonographic evaluation of right kidney. RUQ U/S 05/13/17: Stable sludge ball within the gallbladder lumen. No shadowing gallstones. Unchanging biliary ductal prominence at 1 cm. Mild stable fatty infiltration of the liver. MRCP [facility] 05/14 FINDINGS Liver: Heterogeneous signal intensity of liver on T2 weighted images. Segment 5 T2 hyperintensity is likely a cyst. Biliary ducts: No intrahepatic biliary dilation. Common duct caliber in the upper limits of normal range measuring 6-7 mm. No evidence of choledocholithiasis. Gallbladder: Cholelithiasis. No signs of inflammation. Pancreas: A 6 mm cystic lesion seen in the head of the pancreas on image 34 of series 5. This is probably a side branch IPMN. Spleen: The spleen is enlarged measuring 15 cm in craniocaudal dimension under 16 cm in AP dimension. Adrenal glands: Within normal limits. Kidneys: Couple of tiny T2 hyperintense foci in the left kidney are probably cysts. Otherwise kidneys are within normal limits. No hydronephrosis. Lymph nodes: Within normal limits. Peritoneum: No ascites. Vessels: Limited due to the lack of contrast. Probable perisplenic collaterals. Abdominal wall: Within normal limits. Lower chest: Minimal gynecomastia. Bones: Within normal limits. IMPRESSION 1. Cholelithiasis without cholecystitis. Common duct caliber in the upper limits of normal range. No choledocholithiasis. 2. Heterogeneous appearance of the liver. This may be related to underlying inflammation or fibrosis. Considering splenomegaly and perisplenic collaterals, further evaluation recommended to exclude chronic parenchymal liver disease. MR elastography may be performed if clinically warranted. 3. A tiny cystic lesion in the head of the pancreas is likely a side branch IPMN. Follow-up MRI with MRCP recommended in 1 year for reassessment. Laboratory Results Last 24 Hours Test 05/18/17 02:50 05/18/17 02:59 Urine Color DK YELLOW Urine Appearance CLEAR Urine pH 6.0 Urine Specific [place] 1.026 Urine Protein NEG Urine Glucose (UA) NEG Urine Ketones NEG Urine Occult Blood 2+ Urine Nitrite NEG Urine Bilirubin NEG Urine Urobilinogen NEG Urine Leukocyte Esterase NEG Urine WBC (Auto) 1-5 /hpf Urine RBC (Auto) >30 /hpf Urine Hyaline Casts (Auto) 0 /lpf Urine Epithelial Cells (Auto) 0-5 /lpf Urine Bacteria (Auto) NEG Urine Opiates Screen NEG Urine Methadone, Qualitative NEG Urine Barbiturates NEG Urine Phencyclidine (PCP) Level NEG Ur Amphetamine/Methamphetamine NEG MDMA (Ecstasy) Screen NEG Urine Benzodiazepines Screen NEG Urine Cocaine Metabolite NEG Urine Marijuana (THC) NEG White Blood Count 8.10 K/uL Red Blood Count 4.26 M/uL Hemoglobin 14.4 g/dL Hematocrit 40.9 % Mean Corpuscular Volume 96.0 fL Mean Corpuscular Hemoglobin 33.8 pg Mean Corpuscular Hemoglobin Concent 35.2 g/dl Platelet Count 108 K/uL Mean Platelet Volume 10.5 fL Neutrophils (%) (Auto) 50.4 % Lymphocytes (%) (Auto) 30.0 % Monocytes (%) (Auto) 14.2 % Eosinophils (%) (Auto) 4.7 % Basophils (%) (Auto) 0.6 % Neutrophils # (Auto) 4.08 K/uL Lymphocytes # (Auto) 2.43 K/uL Monocytes # (Auto) 1.15 K/uL Eosinophils # (Auto) 0.38 K/uL Basophils # (Auto) 0.05 K/uL RDW Standard Deviation 49.8 fL RDW Coefficient of Variation 14.3 % Immature Granulocyte % (Auto) 0.1 % Immature Granulocyte # (Auto) 0.01 K/uL Prothrombin Time 18.5 SECONDS Prothromb Time International Ratio 1.8 Activated Partial Thromboplast Time 33.7 SECONDS Partial Thromboplastin Ratio 1.3 Sodium Level 140 mmol/L Potassium Level 3.9 mmol/L Chloride Level 109 mmol/L Carbon Dioxide Level 24 mmol/L Anion Gap 7.0 mmol/L Blood Urea Nitrogen 11 mg/dl Creatinine 0.86 mg/dl Est Creatinine Clear Calc Drug Dose 107.1 ml/min Estimated GFR () 123.1 Estimated GFR (Non- 106.2 BUN/Creatinine Ratio 12.6 Random Glucose 92 mg/dl Calcium Level 8.3 mg/dl Magnesium Level 1.9 mg/dl Total Bilirubin 1.4 mg/dl Aspartate Amino Transf (AST/SGOT) 30 U/L Alanine Aminotransferase (ALT/SGPT) 25 U/L Alkaline Phosphatase 178 U/L Total Protein 7.6 gm/dl Albumin 3.0 gm/dl Globulin 4.6 gm/dl Albumin/Globulin Ratio 0.7 Lipase 1370 U/L Ethyl Alcohol mg/dL < 3.0 mg/dl Impression IMPRESSION: Darrel Guillory is a 41 year old male with PMHx of EtOH cirrhosis who presents with RUQ abdominal pain. Now with pancreatitis in the setting of chronic RUQ U/ S showing GB sludge ball with dilated but stable CBD. MELD 14. CP Class B. Patient with 30% mortality risk with intraabdominal surgery and would likely not be a good surgical candidate for an elective surgical procedure. MELD <15, not a transplant candidate at this time due to low MELD. However given the fact that he now has pancreatitis with his chronic gallbladder issue feel think that the benefits of a cholecystectomy outweigh the risk at this time. And he should have symptomatic care of his pancreatitis and then prior to discharge should have a very thoughtful discussion with likely transplant surgery he would be able to perform his cholecystectomy. RECOMMENDATIONS/PLAN:~~ -IV fluid resuscitation with lactated Ringer's at 200 cc/h -Hold diuretics. -Continue nadolol. -Okay with a liquid diet -Pain control per primary service. -Will follow.
[2017-05-18 14:50] VITALS: BP 106/61; PULSE 60; TEMP 36.7; O2SAT 94
--- NOTE | 2017-05-18 17:52 | Progress Note ---
Internal Med Progress Note Date of Service: May 18, 2017. Provider Documentation: SUBJECTIVE: no abdominal pain today but thinks it will come back in night afebrile no nausea no chest pain or sob OBJECTIVE: Vital Signs-as noted below Exam: General-alert and oriented. Not in distress ENT-normal hearing Neck-no neck masses Lungs-cta b/l no wheezing or crackles Heart-s1 and s2 heard regular rate and rhythm no murmurs Abdomen-soft bowel sounds present non tender no distension Extremities-no edema no erythema Neuro-alert and awake moves extremities Lab data as noted below. ASSESSMENT & PLAN: 1. Gallstone pancreatitis Elective cholecystectomy not a straightforward decision in a cirrhotic patient as per prior Surgery evaluations. lipase 1370 on presentation. Gall bladder us shows gall stones and mild dilatation of CBD. aggressive fluids iv pain meds and antiemetics, npo Gi on board continue to monitor. 2. alcoholic cirrhosis, no overt decompensation currently abstinence from alcohol. 3. Chronic thrombocytopenia, history of esophageal varices secondary to above will monitor 4. past alcohol abuse. DVT PROPHYLAXIS scds DISPOSITION to be determined Vital Signs: Date Time Temp Pulse Resp B/P (MAP) Pulse Ox O2 Delivery O2 Flow Rate FiO2 05/18/17 14:50 36.7 60 18 106/61 (76) 94 Room Air 05/18/17 08:45 97 Room Air 05/18/17 07:00 36.5 56 16 118/73 (88) 97 Room Air 05/18/17 06:52 96 Room Air 05/18/17 06:46 63 16 107/65 96 Room Air 05/18/17 05:21 55 16 112/71 97 Room Air 05/18/17 04:16 53 16 114/71 97 Room Air 05/18/17 03:20 51 16 114/72 95 Room Air 05/18/17 02:06 36.5 54 18 132/77 96 Room Air Lab Results: Results Past 24 Hours Test 05/18/17 02:50 05/18/17 02:59 Range/Units Urine Color DK YELLOW Urine Appearance CLEAR CLEAR Urine pH 6.0 4.5-7.5 Urine Specific [place] 1.026 1.000-1.030 Urine Protein NEG NEG Urine Glucose (UA) NEG NEG Urine Ketones NEG NEG Urine Occult Blood 2+ NEG Urine Nitrite NEG NEG Urine Bilirubin NEG NEG Urine Urobilinogen NEG NEG Urine Leukocyte Esterase NEG NEG Urine WBC (Auto) 1-5 0-5 /hpf Urine RBC (Auto) >30 0-4 /hpf Urine Hyaline Casts (Auto) 0 0-5 /lpf Urine Epithelial Cells (Auto) 0-5 0-5 /lpf Urine Bacteria (Auto) NEG NEG Urine Opiates Screen NEG NEG Urine Methadone, Qualitative NEG NEG Urine Barbiturates NEG NEG Urine Phencyclidine (PCP) Level NEG NEG Ur Amphetamine/Methamphetamine NEG NEG MDMA (Ecstasy) Screen NEG NEG Urine Benzodiazepines Screen NEG NEG Urine Cocaine Metabolite NEG NEG Urine Marijuana (THC) NEG NEG White Blood Count 8.10 4.8-10.8 K/uL Red Blood Count 4.26 4.7-6.1 M/uL Hemoglobin 14.4 14.0-18.0 g/dL Hematocrit 40.9 42-52 % Mean Corpuscular Volume 96.0 80-100 fL Mean Corpuscular Hemoglobin 33.8 25-34 pg Mean Corpuscular Hemoglobin Concent 35.2 32-36 g/dl Platelet Count 108 130-400 K/uL Mean Platelet Volume 10.5 7.4-10.4 fL Neutrophils (%) (Auto) 50.4 % Lymphocytes (%) (Auto) 30.0 % Monocytes (%) (Auto) 14.2 % Eosinophils (%) (Auto) 4.7 % Basophils (%) (Auto) 0.6 % Neutrophils # (Auto) 4.08 1.4-6.5 K/uL Lymphocytes # (Auto) 2.43 1.2-3.4 K/uL Monocytes # (Auto) 1.15 0.11-0.59 K/uL Eosinophils # (Auto) 0.38 0-0.5 K/uL Basophils # (Auto) 0.05 0-0.2 K/uL RDW Standard Deviation 49.8 36.4-46.3 fL RDW Coefficient of Variation 14.3 11.5-14.5 % Immature Granulocyte % (Auto) 0.1 % Immature Granulocyte # (Auto) 0.01 0.00-0.02 K/uL Prothrombin Time 18.5 9.0-12.0 SECONDS Prothromb Time International Ratio 1.8 0.9-1.1 Activated Partial Thromboplast Time 33.7 21.0-31.0 SECONDS Partial Thromboplastin Ratio 1.3 Sodium Level 140 136-145 mmol/L Potassium Level 3.9 3.5-5.1 mmol/L Chloride Level 109 98-107 mmol/L Carbon Dioxide Level 24 21-32 mmol/L Anion Gap 7.0 3-11 mmol/L Blood Urea Nitrogen 11 7-18 mg/dl Creatinine 0.86 0.60-1.40 mg/dl Est Creatinine Clear Calc Drug Dose 107.1 ml/min Estimated GFR () 123.1 Estimated GFR (Non- 106.2 BUN/Creatinine Ratio 12.6 10-20 Random Glucose 92 70-99 mg/dl Calcium Level 8.3 8.5-10.1 mg/dl Magnesium Level 1.9 1.8-2.4 mg/dl Total Bilirubin 1.4 0.2-1 mg/dl Aspartate Amino Transf (AST/SGOT) 30 15-37 U/L Alanine Aminotransferase (ALT/SGPT) 25 12-78 U/L Alkaline Phosphatase 178 45-117 U/L Total Protein 7.6 6.4-8.2 gm/dl Albumin 3.0 3.4-5.0 gm/dl Globulin 4.6 2.5-4.0 gm/dl Albumin/Globulin Ratio 0.7 0.9-2 Lipase 1370 73-393 U/L Ethyl Alcohol mg/dL < 3.0 0-3 mg/dl
[2017-05-18 20:29] VITALS: BP 108/68; PULSE 57
[2017-05-18] MEDS: NADOLOL 40 MG TAB PO SCH (20:32)
[2017-05-18] MEDS: ZOLPIDEM TARTRATE 5 MG TAB PO PRN (21:35)
[2017-05-18 23:25] VITALS: BP 85/47; PULSE 67; TEMP 36.7; O2SAT 99
[2017-05-19 00:11] VITALS: BP 106/66; PULSE 65
[2017-05-19] MEDS: LACTATED RINGER'S 1000ML 1,000 ML IV SCH ×4 (03:24→19:18)
[2017-05-19 07:09] VITALS: BP 110/64; PULSE 59; TEMP 36.7; O2SAT 95
[2017-05-19 07:44] LABS: ALBUMIN 2.6 gm/dl (3.4-5.0); CALCIUM 8.4 mg/dl (8.5-10.1); CREATININE 0.78 mg/dl (0.60-1.40); POTASSIUM 3.8 mmol/L (3.5-5.1)
[2017-05-19 07:49] LABS: TOTAL PROTEIN 6.6 gm/dl (6.4-8.2)
[2017-05-19 08:00] VITALS: O2SAT 95
[2017-05-19] MEDS: PANTOprazole SOD 40 MG TAB PO SCH (08:47)
[2017-05-19] MEDS: URSODIOL 300 MG CAP PO SCH ×2 (08:47→20:42)
--- NOTE | 2017-05-19 09:31 | Gastroenterology Progress Note ---
Progress Note Date of Service: May 19, 2017 Subjective Pt evaluation today including: conversation w/ patient, physical exam, chart review, lab review, review of studies, review of inpatient medication list Mr. Darrel Guillory is 41 yr old male admitted on 05/18 with abdominal pain, lipase > 1000, US with gallstones, sludge, mild GB wall distention, CBD 1.1 cm but no choledocholithiasis and no leukocytosis. Total bilirubin and alk phos have been minimally elevated but no transaminase elevation (T Bili 1.3 on arrival, Direct 2.3 today), (Alk Phos 178 on arrival, 120 today). Lipase has improved from 1370 to 688. Pt tells me that he feels much better and would like to try drinking/ eating. The pt was initially seen here last week and transferred to [place] where CT with cirrhosis, GB with stones, no choledocholithiasis and no pancreatic cysts. Previously, an MRCP was completed during a prior episode of pancreatitis in July 2016 with CBD at 7mm, as well as a 5mm pancreatic head cyst. He has been followed in GI clinic by myself for alcoholic cirrhosis with prior hepatic encephalopathy, prior SBP, grade 2 esophageal varices, maintained on Nadolol 20mg daily, Lasix 20 daily, aldactone 25mg daily, though he was most recently seen last November and no showed since that time. MELD is 15, Child's [place] class B. Review of Systems Constitutional: No fever Eyes: No worsening of vision ENT: No hearing loss Respiratory: No cough Cardiac: No chest pain Abdomen: + pain (resolved), No nausea, No vomiting, No diarrhea, No constipation, No GI bleeding Musculoskeletal: No joint pain Male : No dysuria Neuro: No memory loss Psych: No depression symptoms Heme: No abnormal bleeding/bruising Endo: No fatigue Skin: No rash, No jaundice Medications Current Inpatient Medications Medications (Trade) Dose Ordered Sig/Lisa Route Start Time Stop Time Status Last Admin Dose Admin Acetaminophen (Tylenol Tab) 325 mg Q6H PRN PO 05/18/17 06:30 06/17/17 06:29 Prochlorperazine Edisylate 5 mg/ Syringe 5 ml @ 5 mls/min Q6H PRN IV 05/18/17 06:30 06/17/17 06:29 Lactated Ringer's 1,000 ml @ 200 mls/hr Q5H IV 05/18/17 06:30 06/17/17 06:29 05/19/17 08:48 200 MLS/HR Buspirone HCl (Buspar Tab) 5 mg BID PO 05/18/17 09:00 06/17/17 08:59 05/19/17 08:47 5 MG Folic Acid (Folvite Tab) 1 mg QAM PO 05/18/17 09:00 06/17/17 08:59 05/19/17 08:47 1 MG Nadolol (Corgard Tab) 20 mg HS PO 05/18/17 21:00 06/17/17 20:59 Oxycodone HCl (Roxicodone Immediate Rel Tab) 5 mg Q4H PRN PO 05/18/17 06:30 06/01/17 06:29 Ursodiol (Actigall Cap) 300 mg BID PO 05/18/17 09:00 06/17/17 08:59 05/19/17 08:47 300 MG Zolpidem Tartrate (Ambien Tab) 5 mg HS PRN PO 05/18/17 06:30 06/17/17 06:29 05/18/17 21:35 5 MG Pantoprazole Sodium (Protonix Tab) 40 mg QAM PO 05/18/17 09:00 06/17/17 08:59 05/19/17 08:47 40 MG Lorazepam 0.5 mg/ Syringe 1 ml @ 1 mls/min Q4H PRN IV 05/18/17 08:30 06/17/17 08:29 Objective Vital Signs Date Time Temp Pulse Resp B/P (MAP) Pulse Ox O2 Delivery O2 Flow Rate FiO2 05/19/17 07:09 36.7 59 18 110/64 (79) 95 Room Air 05/19/17 00:11 65 106/66 (79) 05/19/17 00:00 Room Air 05/18/17 23:25 36.7 67 18 85/47 (60) 99 Room Air 05/18/17 20:29 57 108/68 (81) 05/18/17 16:40 Room Air 05/18/17 14:50 36.7 60 18 106/61 (76) 94 Room Air Physical Exam General Appearance: no apparent distress Neck: no JVD Respiratory/Chest: lungs clear Cardiovascular: regular rate, rhythm, no JVD, no murmur Abdomen: non tender, soft Extremities: non-tender Neurologic/Psych: alert, normal mood/affect, oriented x 3 Skin: no jaundice Laboratory Results Last 24 Hours Test 05/19/17 06:55 Sodium Level 139 mmol/L Potassium Level 3.8 mmol/L Chloride Level 107 mmol/L Carbon Dioxide Level 24 mmol/L Anion Gap 8.0 mmol/L Blood Urea Nitrogen 9 mg/dl Creatinine 0.78 mg/dl Est Creatinine Clear Calc Drug Dose 118.1 ml/min Estimated GFR () 128.1 Estimated GFR (Non- 110.6 BUN/Creatinine Ratio 12.1 Random Glucose 89 mg/dl Calcium Level 8.4 mg/dl Total Bilirubin 2.3 mg/dl Aspartate Amino Transf (AST/SGOT) 27 U/L Alanine Aminotransferase (ALT/SGPT) 21 U/L Alkaline Phosphatase 120 U/L Total Protein 6.6 gm/dl Albumin 2.6 gm/dl Globulin 4.0 gm/dl Albumin/Globulin Ratio 0.7 Lipase 688 U/L Assessment and Plan Mr. Guillory is a 41 yr old male patient with cirrhosis, here with acute pancreatitis, improving. Most likely the pancreatitis was caused by gallbladder disease as he has completely abstained from alcohol since December 2015 but lasix can cause pancreatitis as well. Plan: 1. Clear liquid diet. 2. Will arrange OP office visit with the transplant surgeons to consider cholecystectomy in [place] as he is high risk with his hx of cirrhosis. I performed a history and physical examination of the patient. I have discussed the patient's case, impression and plan with RUPERT Almanza. Her note reflects my findings and plan. Hold lasix since this can cause pancreatitis as well. Matt Boyd MD
[2017-05-19 16:00] VITALS: BP 105/66; PULSE 60; TEMP 36.7; O2SAT 96
--- NOTE | 2017-05-19 17:59 | Progress Note ---
Internal Med Progress Note Date of Service: May 19, 2017. Provider Documentation: SUBJECTIVE: no abdominal pain no nausea tolerated clears afebrile no sob no chest pain OBJECTIVE: Vital Signs-as noted below Exam: General-alert and oriented. Not in distress ENT-normal hearing Neck-no neck masses Lungs-cta b/l no wheezing or crackles Heart-s1 and s2 heard regular rate and rhythm no murmurs Abdomen-soft bowel sounds present non tender no distension Extremities-no edema no erythema Neuro-alert and awake moves extremities Lab data as noted below. ASSESSMENT & PLAN: 1. Gallstone pancreatitis Elective cholecystectomy not a straightforward decision in a cirrhotic patient as per prior Surgery evaluations. lipase 1370 on presentation. Gall bladder us shows gall stones and mild dilatation of CBD. aggressive fluids iv pain meds and antiemetics, npo Gi on board improving advanced diet to clears will chage fluids to 150ml/hr continue to monitor 2. alcoholic cirrhosis, no overt decompensation currently abstinence from alcohol. 3. Chronic thrombocytopenia, history of esophageal varices secondary to above will monitor 4. past alcohol abuse. DVT PROPHYLAXIS scds DISPOSITION to be determined Vital Signs: Date Time Temp Pulse Resp B/P (MAP) Pulse Ox O2 Delivery O2 Flow Rate FiO2 05/19/17 16:29 Room Air 05/19/17 16:00 36.7 60 20 105/66 (79) 96 05/19/17 08:00 95 Room Air 05/19/17 07:09 36.7 59 18 110/64 (79) 95 Room Air 05/19/17 00:11 65 106/66 (79) 05/19/17 00:00 Room Air 05/18/17 23:25 36.7 67 18 85/47 (60) 99 Room Air 05/18/17 20:29 57 108/68 (81) Lab Results: Results Past 24 Hours Test 05/19/17 06:55 Range/Units Sodium Level 139 136-145 mmol/L Potassium Level 3.8 3.5-5.1 mmol/L Chloride Level 107 98-107 mmol/L Carbon Dioxide Level 24 21-32 mmol/L Anion Gap 8.0 3-11 mmol/L Blood Urea Nitrogen 9 7-18 mg/dl Creatinine 0.78 0.60-1.40 mg/dl Est Creatinine Clear Calc Drug Dose 118.1 ml/min Estimated GFR () 128.1 Estimated GFR (Non- 110.6 BUN/Creatinine Ratio 12.1 10-20 Random Glucose 89 70-99 mg/dl Calcium Level 8.4 8.5-10.1 mg/dl Total Bilirubin 2.3 0.2-1 mg/dl Direct Bilirubin 0.7 0-0.2 mg/dl Aspartate Amino Transf (AST/SGOT) 27 15-37 U/L Alanine Aminotransferase (ALT/SGPT) 21 12-78 U/L Alkaline Phosphatase 120 45-117 U/L Total Protein 6.6 6.4-8.2 gm/dl Albumin 2.6 3.4-5.0 gm/dl Globulin 4.0 2.5-4.0 gm/dl Albumin/Globulin Ratio 0.7 0.9-2 Lipase 688 73-393 U/L
[2017-05-19] MEDS: NADOLOL 40 MG TAB PO SCH (20:46)
[2017-05-19] MEDS: ZOLPIDEM TARTRATE 5 MG TAB PO PRN (22:12)
[2017-05-19 23:58] VITALS: BP 103/62; PULSE 65; TEMP 36.7; O2SAT 96
[2017-05-20] VITALS (7 sets, daily range): BP systolic 102–118; BP diastolic 61–66; PULSE 58–86; TEMP 36.6–36.7; O2SAT 93–97
[2017-05-20] MEDS: LACTATED RINGER'S 1000ML 1,000 ML IV SCH ×2 (02:03→09:06)
[2017-05-20] MEDS: URSODIOL 300 MG CAP PO SCH ×2 (07:25→21:57)
[2017-05-20 07:56] LABS: ALBUMIN 2.5 gm/dl (3.4-5.0); CALCIUM 8.3 mg/dl (8.5-10.1); CREATININE 0.81 mg/dl (0.60-1.40); POTASSIUM 3.4 mmol/L (3.5-5.1)
[2017-05-20 08:00] LABS: TOTAL PROTEIN 6.2 gm/dl (6.4-8.2)
[2017-05-20] MEDS: PANTOprazole SOD 40 MG TAB PO SCH (08:03)
--- NOTE | 2017-05-20 11:50 | Gastroenterology Progress Note ---
Progress Note Date of Service: May 20, 2017 Subjective Pt evaluation today including: conversation w/ patient, physical exam, chart review, lab review, review of studies, review of inpatient medication list Mr. Guillory is a 41 yr old male patient with acute pancreatitis, likely from gallstones/microlithiasis; however another possible cause is the furosemide. He is clinically improving. [place] surgery was consulted when he was an IP there last week and told the pt that he is too high risk for cholecystitis due to his hx of cirrhosis with ascites and esophageal varices. Plan: 1. DC furosemide. Continue spironolactone. If pt becomes edematous/increased ascites then will consider restarting. 2. Advance diet to low fat, regular consistency. 3. If does well with eating, then would anticipate discharge tomorrow. Review of Systems Constitutional: No fever Respiratory: No cough Cardiac: No chest pain Abdomen: No pain, No nausea Musculoskeletal: No joint pain Male : No dysuria Neuro: No memory loss Psych: No depression symptoms Heme: No abnormal bleeding/bruising Endo: No fatigue Medications Current Inpatient Medications Medications (Trade) Dose Ordered Sig/Lisa Route Start Time Stop Time Status Last Admin Dose Admin Acetaminophen (Tylenol Tab) 325 mg Q6H PRN PO 05/18/17 06:30 06/17/17 06:29 Prochlorperazine Edisylate 5 mg/ Syringe 5 ml @ 5 mls/min Q6H PRN IV 05/18/17 06:30 06/17/17 06:29 Lactated Ringer's 1,000 ml @ 150 mls/hr Q6H40M IV 05/18/17 06:30 06/17/17 06:29 05/20/17 09:06 150 MLS/HR Buspirone HCl (Buspar Tab) 5 mg BID PO 05/18/17 09:00 06/17/17 08:59 05/20/17 07:25 5 MG Folic Acid (Folvite Tab) 1 mg QAM PO 05/18/17 09:00 06/17/17 08:59 05/20/17 07:25 1 MG Nadolol (Corgard Tab) 20 mg HS PO 05/18/17 21:00 06/17/17 20:59 Oxycodone HCl (Roxicodone Immediate Rel Tab) 5 mg Q4H PRN PO 05/18/17 06:30 06/01/17 06:29 Ursodiol (Actigall Cap) 300 mg BID PO 05/18/17 09:00 06/17/17 08:59 05/20/17 07:25 300 MG Zolpidem Tartrate (Ambien Tab) 5 mg HS PRN PO 05/18/17 06:30 06/17/17 06:29 05/19/17 22:12 5 MG Pantoprazole Sodium (Protonix Tab) 40 mg QAM PO 05/18/17 09:00 06/17/17 08:59 05/20/17 08:03 40 MG Lorazepam 0.5 mg/ Syringe 1 ml @ 1 mls/min Q4H PRN IV 05/18/17 08:30 06/17/17 08:29 Objective Vital Signs Date Time Temp Pulse Resp B/P (MAP) Pulse Ox O2 Delivery O2 Flow Rate FiO2 05/20/17 08:00 97 Room Air 05/20/17 07:18 36.7 66 16 108/63 (78) 93 Room Air 05/20/17 00:45 95 Room Air 05/19/17 23:58 36.7 65 18 103/62 (76) 96 Room Air 05/19/17 16:29 Room Air 05/19/17 16:00 36.7 60 20 105/66 (79) 96 Physical Exam General Appearance: no apparent distress ENT: pharynx normal Neck: no JVD Respiratory/Chest: lungs clear Cardiovascular: regular rate, rhythm, no murmur Abdomen: non tender, soft Extremities: non-tender, no pedal edema Neurologic/Psych: alert, normal mood/affect, oriented x 3 Skin: normal color, no jaundice Laboratory Results Last 24 Hours Test 05/20/17 06:59 Sodium Level 142 mmol/L Potassium Level 3.4 mmol/L Chloride Level 109 mmol/L Carbon Dioxide Level 25 mmol/L Anion Gap 8.0 mmol/L Blood Urea Nitrogen 6 mg/dl Creatinine 0.81 mg/dl Est Creatinine Clear Calc Drug Dose 113.7 ml/min Estimated GFR () 126.2 Estimated GFR (Non- 108.9 BUN/Creatinine Ratio 7.4 Random Glucose 84 mg/dl Calcium Level 8.3 mg/dl Total Bilirubin 2.1 mg/dl Aspartate Amino Transf (AST/SGOT) 27 U/L Alanine Aminotransferase (ALT/SGPT) 19 U/L Alkaline Phosphatase 109 U/L Total Protein 6.2 gm/dl Albumin 2.5 gm/dl Globulin 3.7 gm/dl Albumin/Globulin Ratio 0.7 Lipase 250 U/L Assessment and Plan Mr. Guillory is a 41 yr old male patient with cirrhosis, here with acute pancreatitis, improving. Most likely the pancreatitis was caused by gallbladder disease as he has completely abstained from alcohol since December 2015. Plan: 1. Clear liquid diet. 2. Will arrange OP office visit with the transplant surgeons to consider cholecystectomy in [place] as he is high risk with his hx of cirrhosis. I performed a history and physical examination of the patient. I have discussed the patient's case, impression and plan with RUPERT Almanza. Her note reflects my findings and plan. Improving. Tolerating food. Continue to watch for signs of recurrence. Matt Boyd MD
[2017-05-20] MEDS ORDERED: NURSING VERBAL MED ORDER ONE (16:30)
--- NOTE | 2017-05-20 18:42 | Progress Note ---
Internal Med Progress Note Date of Service: May 20, 2017. Provider Documentation: SUBJECTIVE: had some burning pain after eating today no nausea no fevers moved bowels concerned he may get abdominal pain in the night OBJECTIVE: Vital Signs-as noted below Exam: General-alert and oriented. Not in distress ENT-normal hearing Neck-no neck masses Lungs-cta b/l no wheezing or crackles Heart-s1 and s2 heard regular rate and rhythm no murmurs Abdomen-soft bowel sounds present non tender no distension Extremities-no edema no erythema Neuro-alert and awake moves extremities Lab data as noted below. ASSESSMENT & PLAN: 1. Gallstone pancreatitis Elective cholecystectomy not a straightforward decision in a cirrhotic patient as per prior Surgery evaluations. lipase 1370 on presentation. Gall bladder us shows gall stones and mild dilatation of CBD. aggressive fluids iv pain meds and antiemetics, npo Gi on board improving. tolerated clears advanced diet to regular today will stop fluids continue to monitor 2. alcoholic cirrhosis, no overt decompensation currently abstinence from alcohol. 3. Chronic thrombocytopenia, history of esophageal varices secondary to above will monitor 4. past alcohol abuse. DVT PROPHYLAXIS scds DISPOSITION possible d/c in am if stable Vital Signs: Date Time Temp Pulse Resp B/P (MAP) Pulse Ox O2 Delivery O2 Flow Rate FiO2 05/20/17 16:00 95 Room Air 05/20/17 15:54 36.6 86 20 102/65 (77) 95 05/20/17 08:00 97 Room Air 05/20/17 07:18 36.7 66 16 108/63 (78) 93 Room Air 05/20/17 00:45 95 Room Air 05/19/17 23:58 36.7 65 18 103/62 (76) 96 Room Air Lab Results: Results Past 24 Hours Test 05/20/17 06:59 Range/Units Sodium Level 142 136-145 mmol/L Potassium Level 3.4 3.5-5.1 mmol/L Chloride Level 109 98-107 mmol/L Carbon Dioxide Level 25 21-32 mmol/L Anion Gap 8.0 3-11 mmol/L Blood Urea Nitrogen 6 7-18 mg/dl Creatinine 0.81 0.60-1.40 mg/dl Est Creatinine Clear Calc Drug Dose 113.7 ml/min Estimated GFR () 126.2 Estimated GFR (Non- 108.9 BUN/Creatinine Ratio 7.4 10-20 Random Glucose 84 70-99 mg/dl Calcium Level 8.3 8.5-10.1 mg/dl Total Bilirubin 2.1 0.2-1 mg/dl Aspartate Amino Transf (AST/SGOT) 27 15-37 U/L Alanine Aminotransferase (ALT/SGPT) 19 12-78 U/L Alkaline Phosphatase 109 45-117 U/L Total Protein 6.2 6.4-8.2 gm/dl Albumin 2.5 3.4-5.0 gm/dl Globulin 3.7 2.5-4.0 gm/dl Albumin/Globulin Ratio 0.7 0.9-2 Lipase 250 73-393 U/L
[2017-05-20] MEDS: NADOLOL 40 MG TAB PO SCH (21:56)
[2017-05-21] MEDS: ZOLPIDEM TARTRATE 5 MG TAB PO PRN (01:36)
[2017-05-21 06:55] VITALS: BP 98/56; PULSE 75; TEMP 36.5; O2SAT 95
[2017-05-21 08:00] VITALS: O2SAT 97
[2017-05-21] MEDS: PANTOprazole SOD 40 MG TAB PO SCH (08:24)
[2017-05-21] MEDS: URSODIOL 300 MG CAP PO SCH (08:24)
[2017-05-21 08:39] LABS: CALCIUM 8.1 mg/dl (8.5-10.1); CREATININE 0.82 mg/dl (0.60-1.40); POTASSIUM 3.5 mmol/L (3.5-5.1)
--- NOTE | 2017-05-21 10:34 | Gastroenterology Progress Note ---
Progress Note Date of Service: May 21, 2017 Subjective Pt evaluation today including: conversation w/ patient, physical exam, chart review, lab review, review of studies, review of inpatient medication list Mr. Guillory is a 41 yr old male with ETOH cirrhosis, abstaining, evaluated for liver transplant, not listed due to low MELD. He admitted for gallstone pancreatitis. Lipase normalized. LFTs have been normal. Eating regular food since yesterday at noon. He experienced RUQ abdominal pain, stating it was "nothing that (he) would need medicine for," lasting about 1 hour after lunch, 2 hours He believes this is gallbladder pain. No pain after breakfast. Passing BMs, 1-2/day. No nausea/vomiting Review of Systems Constitutional: No fever Respiratory: No cough Cardiac: No chest pain Abdomen: + pain, No nausea, No vomiting, No diarrhea, No constipation, No GI bleeding Male : No dysuria Neuro: No memory loss Psych: No depression symptoms Heme: No abnormal bleeding/bruising Endo: No fatigue Skin: No rash, No jaundice Medications Current Inpatient Medications Medications (Trade) Dose Ordered Sig/Lisa Route Start Time Stop Time Status Last Admin Dose Admin Acetaminophen (Tylenol Tab) 325 mg Q6H PRN PO 05/18/17 06:30 06/17/17 06:29 Prochlorperazine Edisylate 5 mg/ Syringe 5 ml @ 5 mls/min Q6H PRN IV 05/18/17 06:30 06/17/17 06:29 Buspirone HCl (Buspar Tab) 5 mg BID PO 05/18/17 09:00 06/17/17 08:59 05/21/17 08:24 5 MG Folic Acid (Folvite Tab) 1 mg QAM PO 05/18/17 09:00 06/17/17 08:59 05/21/17 08:24 1 MG Nadolol (Corgard Tab) 20 mg HS PO 05/18/17 21:00 06/17/17 20:59 Oxycodone HCl (Roxicodone Immediate Rel Tab) 5 mg Q4H PRN PO 05/18/17 06:30 06/01/17 06:29 Ursodiol (Actigall Cap) 300 mg BID PO 05/18/17 09:00 06/17/17 08:59 05/21/17 08:24 300 MG Zolpidem Tartrate (Ambien Tab) 5 mg HS PRN PO 05/18/17 06:30 06/17/17 06:29 05/21/17 01:36 5 MG Pantoprazole Sodium (Protonix Tab) 40 mg QAM PO 05/18/17 09:00 06/17/17 08:59 05/21/17 08:24 40 MG Lorazepam 0.5 mg/ Syringe 1 ml @ 1 mls/min Q4H PRN IV 05/18/17 08:30 06/17/17 08:29 Objective Vital Signs Date Time Temp Pulse Resp B/P (MAP) Pulse Ox O2 Delivery O2 Flow Rate FiO2 05/21/17 08:00 97 Room Air 05/21/17 06:55 36.5 75 18 98/56 (70) 95 Room Air 05/21/17 00:00 Room Air 05/20/17 23:05 36.7 58 16 104/61 (75) 97 Room Air 05/20/17 21:53 58 118/66 (83) 05/20/17 16:00 95 Room Air 05/20/17 15:54 36.6 86 20 102/65 (77) 95 Physical Exam General Appearance: no apparent distress ENT: pharynx normal Neck: no adenopathy, thyroid normal, no JVD Respiratory/Chest: lungs clear Cardiovascular: regular rate, rhythm, no JVD, no murmur Abdomen: non tender, soft Extremities: non-tender Neurologic/Psych: alert, normal mood/affect, oriented x 3 Skin: no jaundice Laboratory Results Last 24 Hours Test 05/21/17 07:47 05/21/17 10:16 Sodium Level 141 mmol/L Potassium Level 3.5 mmol/L Chloride Level 110 mmol/L Carbon Dioxide Level 26 mmol/L Anion Gap 6.0 mmol/L Blood Urea Nitrogen 6 mg/dl Creatinine 0.82 mg/dl Est Creatinine Clear Calc Drug Dose 112.3 ml/min Estimated GFR () 125.5 Estimated GFR (Non- 108.3 BUN/Creatinine Ratio 7.4 Random Glucose 75 mg/dl Calcium Level 8.1 mg/dl Magnesium Level 1.7 mg/dl Assessment and Plan Mr. Guillory is a 41 yr old male patient with cirrhosis, here with acute pancreatitis (? gallstone vs. medication related), improving. Plan: 1. Low fat diet. 2. Continue daily Protonix on discharge as some of his symptoms are suggestive of reflux. 3. Pt does not wish for appt with surgeons at this point. He will consider is post prandial pain continues or if another episode of pancreatitis. 4. LFTs and lipase added to today's labs. If no worsening then will plan for DC later today. I performed a history and physical examination of the patient. I have discussed the patient's case, impression and plan with RUPERT Almanza. Her note reflects my findings and plan. Doing well. Stable for D/C. Matt Boyd MD
[2017-05-21 10:58] LABS: ALBUMIN 2.6 gm/dl (3.4-5.0); TOTAL PROTEIN 6.2 gm/dl (6.4-8.2)
[2017-05-21] MEDS ORDERED: PRT40 PO (12:51)
--- NOTE | 2017-05-21 12:53 | Discharge Instructions ---
Discharge Instructions Date of Service May 21, 2017. Admission Reason for Admission: Pancreatitis Discharge Discharge Diagnosis / Problem: PANCREATITIS Discharge Goals Goal(s): Decrease discomfort, Improve function Activity Recommendations Activity Limitations: resume your previous activity . Instructions / Follow-Up Instructions / Follow-Up FOLLOWUP WITH FAMILY DOCTOR. ON May AT 2:25PM FOLLOWUP WITH GI SCHEDULED LAB: BMP IN ONE WEEK AND FOLLOW RESULTS WITH FAMILY DOCTOR.( STOPPING LASIX & POTASSIUM SUPPLEMENTS AND CONTINUING ALDACTONE). Current Hospital Diet Patient's current hospital diet: AHA Diet (Heart Healthy) Discharge Diet Recommended Diet: AHA Diet (Heart Healthy) Pending Studies Studies pending at discharge: no Medical Emergencies . Who to Call and When: Medical Emergencies: If at any time you feel your situation is an emergency, please call 911 immediately. . Non-Emergent Contact Non-Emergency issues call your: Primary Care Provider . . "Provider Documentation" section prepared by Josh Sosa. . VTE Core Measure Inpt VTE Proph given/why not?: SCD's
[2017-05-21 14:09] VITALS: BP 98/56; PULSE 75; TEMP 36.5; O2SAT 97
--- NOTE | 2017-05-21 19:49 | Progress Note ---
Internal Med Progress Note Date of Service: May 21, 2017. Provider Documentation: SUBJECTIVE: says has some pain after eating on ruq but knows gi and surgery not keen on surgery secondary to liver cirrhosis no nausea no fevers no nausea ok for discharge OBJECTIVE: Vital Signs-as noted below Exam: General-alert and oriented. Not in distress ENT-normal hearing Neck-no neck masses Lungs-cta b/l no wheezing or crackles Heart-s1 and s2 heard regular rate and rhythm no murmurs Abdomen-soft bowel sounds present non tender no distension Extremities-no edema no erythema Neuro-alert and awake moves extremities Lab data as noted below. ASSESSMENT & PLAN: 1. Gallstone pancreatitis Elective cholecystectomy not a straightforward decision in a cirrhotic patient as per prior Surgery evaluations. lipase 1370 on presentation. Gall bladder us shows gall stones and mild dilatation of CBD. aggressive fluids iv pain meds and antiemetics, npo Gi on board improving. tolerated clears advanced diet to regular and tolerating ok gi to f/u in one month GI recommends to stop lasix as it can cause pancreatitis. 2. alcoholic cirrhosis, no overt decompensation currently abstinence from alcohol.stopped Lasix and kcl supplements to continue Aldactone f/u labs with pcp 3. Chronic thrombocytopenia, history of esophageal varices secondary to above will monitor 4. past alcohol abuse. discharged home Vital Signs: Date Time Temp Pulse Resp B/P (MAP) Pulse Ox O2 Delivery O2 Flow Rate FiO2 05/21/17 14:09 36.5 75 18 97 Room Air 05/21/17 08:00 97 Room Air 05/21/17 06:55 36.5 75 18 98/56 (70) 95 Room Air 05/21/17 00:00 Room Air 05/20/17 23:05 36.7 58 16 104/61 (75) 97 Room Air 05/20/17 21:53 58 118/66 (83) Lab Results: Results Past 24 Hours Test 05/21/17 07:47 Range/Units Sodium Level 141 136-145 mmol/L Potassium Level 3.5 3.5-5.1 mmol/L Chloride Level 110 98-107 mmol/L Carbon Dioxide Level 26 21-32 mmol/L Anion Gap 6.0 3-11 mmol/L Blood Urea Nitrogen 6 7-18 mg/dl Creatinine 0.82 0.60-1.40 mg/dl Est Creatinine Clear Calc Drug Dose 112.3 ml/min Estimated GFR () 125.5 Estimated GFR (Non- 108.3 BUN/Creatinine Ratio 7.4 10-20 Random Glucose 75 70-99 mg/dl Calcium Level 8.1 8.5-10.1 mg/dl Magnesium Level 1.7 1.8-2.4 mg/dl Total Bilirubin 1.2 0.2-1 mg/dl Direct Bilirubin 0.4 0-0.2 mg/dl Aspartate Amino Transf (AST/SGOT) 30 15-37 U/L Alanine Aminotransferase (ALT/SGPT) 22 12-78 U/L Alkaline Phosphatase 113 45-117 U/L Total Protein 6.2 6.4-8.2 gm/dl Albumin 2.6 3.4-5.0 gm/dl Lipase 277 73-393 U/L
--- NOTE | 2017-05-21 19:52 | Discharge Summary ---
Discharge Summary Date of Service May 21, 2017. Discharge Summary Admission Date: May 18, 2017 at 05:50 Discharge Date: May 21, 2017 Discharge Disposition: Home Principal Diagnosis: GALL STONE PANCREATITIS Secondary Diagnoses/Problems: alcoholic cirrhosis, past alcohol abuse, chronic thrombocytopenia, history of esophageal, cholecystitis. Procedures: GALL BLADDER US: 1. Redemonstration of echogenic nonshadowing material within the gallbladder neck which could reflect sludge or nonshadowing stones. Mild gallbladder distention without significant gallbladder wall thickening. 2. Mild dilatation of the common bile duct which is similar to prior ultrasound. No choledocholithiasis identified although the findings could be correlated with obstructive liver function tests. 3. Slight nodularity of the liver surface which raises the possibility of cirrhosis. Consultations: GI Medication Reconciliation New Medications: Pantoprazole (Pantoprazole Sodium) 40 Mg Tab 40 MG PO QAM, #30 TAB 2 Refills Continued Medications: Buspirone Hcl (Buspar) 15 Mg Tab 5 MG PO BID, TAB Folic Acid (Folvite) 1 Mg Tab 1 MG PO QAM Nadolol (Corgard) 20 Mg Tab 20 MG PO HS Oxycodone Ir (Roxicodone Ir) 5 Mg Tab 1-2 TAB PO Q4H PRN for Severe Pain Probiotic Product (Probiotic) 1 Cap Cap 1 DOSE PO QAM 10 [employer] Spironolactone (Aldactone) 25 Mg Tab 25 MG PO QAM Ursodiol (Ursodiol) 300 Mg Cap 1 TAB PO BID Zolpidem Tartrate (Ambien) 5 Mg Tab 5 MG PO HS PRN for Sleep Discontinued Medications: Furosemide (Lasix) 20 Mg Tab 20 MG PO QAM Omeprazole (Prilosec) 20 Mg Capcr 20 MG PO QAM Potassium Chloride (K-Tabs) 10 Meq Tabcr 10 MEQ PO QAM Admission Information HPI (per Admitting provider): History obtained from patient and records. Medical history significant for alcoholic cirrhosis, past alcohol abuse, chronic thrombocytopenia, history of esophageal, cholecystitis. Recent confinement at [facility] from 05/13/2017-05/16/2017 for abdominal pain attributed to chronic cholecystitis. Patient evaluated by surgery. Not a surgical candidate due to liver cirrhosis and possible liver transplant in the future as per records. As per patient, he was discharged still with epigastric pain, sharp, sometimes going to his back, worse on lying down. No alcohol intake. No fever, no chills. Physical Exam (per Admitting): VITAL SIGNS: Blood pressure was noted to be 132/77, pulse rate 60, RR 18, T 37 O2 sats 97 on room air. GENERAL: Noted to be slightly uncomfortable, no respiratory distress. SKIN: Normal color, warm. HEENT: [place] palpebral conjuctivae. No ptosis. Dry mucosa. NECK: Supple, nontender. CHEST: Clear to auscultation. No tenderness. HEART: Regular rate and rhythm. No murmur. ABDOMEN: Some distention. No exquisite tenderness. EXTREMITIES: No edema, no gross deformities. No tenderness. NEUROLOGIC: Coherent. No gross focality. Hospital Course 1. Gallstone pancreatitis Elective cholecystectomy not a straightforward decision in a cirrhotic patient as per prior Surgery evaluations. lipase 1370 on presentation. Gall bladder us shows gall stones and mild dilatation of CBD. aggressive fluids iv pain meds and antiemetics, npo Gi on board improving. tolerated clears advanced diet to regular and tolerating ok gi to f/u in one month GI recommends to stop lasix as it can cause pancreatitis. 2. alcoholic cirrhosis, no overt decompensation currently abstinence from alcohol.stopped Lasix and kcl supplements to continue Aldactone f/u labs with pcp 3. Chronic thrombocytopenia, history of esophageal varices secondary to above will monitor 4. past alcohol abuse. discharged home Total time spent on discharge = 35MINUTES This includes examination of the patient, discharge planning, medication reconciliation, and communication with other providers. Discharge Instructions Discharge Instructions Date of Service May 21, 2017. Admission Reason for Admission: Pancreatitis Discharge Discharge Diagnosis / Problem: PANCREATITIS Discharge Goals Goal(s): Decrease discomfort, Improve function Activity Recommendations Activity Limitations: resume your previous activity . Instructions / Follow-Up Instructions / Follow-Up FOLLOWUP WITH FAMILY DOCTOR. ON May AT 2:25PM FOLLOWUP WITH GI SCHEDULED LAB: BMP IN ONE WEEK AND FOLLOW RESULTS WITH FAMILY DOCTOR.( STOPPING LASIX & POTASSIUM SUPPLEMENTS AND CONTINUING ALDACTONE). Current Hospital Diet Patient's current hospital diet: AHA Diet (Heart Healthy) Discharge Diet Recommended Diet: AHA Diet (Heart Healthy) Pending Studies Studies pending at discharge: no Medical Emergencies . Who to Call and When: Medical Emergencies: If at any time you feel your situation is an emergency, please call 911 immediately. . Non-Emergent Contact Non-Emergency issues call your: Primary Care Provider . . "Provider Documentation" section prepared by Josh Sosa. . VTE Core Measure Inpt VTE Proph given/why not?: SCD's
== END 2017-05-21 14:25 | disposition home or self-care (01) | DRG 439 ==
LOC: C.EDB 02:02 → C.MS2W 05:50 → ENRESERV 06:36
PROVIDERS: ADMIT Internal Medicine; ATTEND Internal Medicine
DX: K85.10 Biliary acute pancreatitis without necrosis or infection (principal); K80.10 Calculus of gallbladder with chronic cholecystitis without obstruction; I85.10 Secondary esophageal varices without bleeding; K85.30 Drug induced acute pancreatitis without necrosis or infection; T50.1X5A Adverse effect of loop [high-ceiling] diuretics, initial encounter; K70.31 Alcoholic cirrhosis of liver with ascites; D69.59 Other secondary thrombocytopenia; K83.8 Other specified diseases of biliary tract; Z79.899 Other long term (current) drug therapy; Z87.898 Personal history of other specified conditions; Z88.6 Allergy status to analgesic agent; Z83.3 Family history of diabetes mellitus; Z82.3 Family history of stroke; Z82.5 Family history of asthma and other chronic lower respiratory diseases

== ENCOUNTER 2017-06-19 00:58 | Emergency (ER) | payer OTHER ==
[~2017-06-19] VITALS: Ht 172.7 cm; Wt 80.2 kg
[~2017-06-19 00:58] MED LIST changes: -FURO20TA PO; -MCRK/10 PO; -PRLSR20 PO; +PRT40 PO
[2017-06-19 01:02] VITALS: Ht 172.7 cm; Wt 80.2 kg
[2017-06-19] MEDS ORDERED: ONDANSETRON INJ 2 MG/ML 2 ML VIAL IV STA (01:24)
[2017-06-19] MEDS ORDERED: SODIUM CHLORIDE 0.9% 1000ML 1,000 ML IV STA (01:24)
[2017-06-19] MEDS ORDERED: MoRPHine SULFATE 4 MG/ML 1 ML CARP\\VIAL IV STA (01:26)
--- NOTE | 2017-06-19 01:32 | EMERGENCY ROOM VISIT NOTE ---
History Report prepared by Brent: Alfredo Manning Under the Supervision of: Dr. Jaqui Diane D.O. First contact with patient: 01:13 Chief Complaint: ABDOMINAL PAIN Stated Complaint: GALBLADDER Nursing Triage Summary: RUQ abd pain with nausea. pt states it gets worse at nite and has been having symtoms x3 days History of Present Illness The patient is a 41 year old male who presents to the Emergency Room with complaints of constant, worsening, dull, RUQ abdominal pain beginning three days ago. He currently rates his discomfort an 8/10 in severity. The patient states nothing makes his symptoms better or worse. He reports he is nauseous, but he has not vomited. The patient notes he has had six to seven similar episodes in the last year, with the last episode being a month ago. He states he was diagnosed with liver cirrhosis secondary to alcohol use. The patient reports he also has a history of gallstones, distentions, and sludge that cannot be removed secondary to the liver cirrhosis. He notes he typically receives fluids and pain management when being evaluated in the ED. The patient states he no longer drinks alcohol and does not smoke. He reports he denies fevers and chills also. Source of History: patient Onset: three days ago Position: abdomen (RUQ) Symptom Intensity: 8/10 Quality: dull Timing: constant, worsening Modifying Factors (Worsening): other (nothing) Modifying Factors (Relieving): other (nothing) Associated Symptoms: + nausea, No fevers, No chills, No vomiting Review of Systems See HPI for pertinent positives & negatives. A total of 10 systems reviewed and were otherwise negative. Past Medical & Surgical Medical Problems: (1) Alcohol withdrawal seizure (2) Alcoholic cirrhosis (3) Esophageal varices (4) Gall bladder disease (5) History of alcohol abuse (6) History of hyponatremia (7) History of macrocytic anemia (8) History of thrombocytopenia (9) Pancreatitis (10) Portal hypertensive gastropathy Surgical Problems: (1) S/P tonsillectomy Family History Asthma MOTHER Diabetes mellitus MOTHER Stroke FATHER Social History Smoking Status: Never Smoker Alcohol Use: other Drug Use: none Marital Status: single Occupation Status: unemployed Current/Historical Medications Scheduled Buspirone Hcl (Buspar), 5 MG PO BID Folic Acid (Folvite), 1 MG PO QAM Nadolol (Corgard), 20 MG PO HS Pantoprazole (Protonix), 40 MG PO DAILY Probiotic Product (Probiotic), 1 DOSE PO QAM Spironolactone (Aldactone), 25 MG PO QAM Ursodiol (Ursodiol), 300 MG PO BID Scheduled PRN Oxycodone Ir (Roxicodone Ir), 1-2 TAB PO Q4H PRN for Severe Pain Oxycodone Ir (Roxicodone Ir), 1-2 TAB PO Q4H PRN for Severe Pain Zolpidem Tartrate (Ambien), 5 MG PO HS PRN for Sleep Allergies Coded Allergies: Aspirin (Verified Allergy, Unknown, THINS BLOOD, NOSE BLEEDS, 05/13/17) Physical Exam Vital Signs Date Time Temp Pulse Resp B/P (MAP) Pulse Ox O2 Delivery O2 Flow Rate FiO2 06/19/17 05:03 36.7 70 16 122/70 100 Room Air 06/19/17 04:07 70 16 120/71 100 Room Air 06/19/17 01:02 36.8 72 16 115/69 100 Room Air Physical Exam HEENT: Head - normocephalic and atraumatic Pupils are equal, round, and reactive to light. Extraocular eye muscles are intact, and sclera are icteric. Nose - moist nasal mucosa without discharge. Mouth - moist buccal mucosa. Oropharynx is nonerythematous and there is no tonsillar exudate or edema noted. Neck: Supple; no JVD, nuchal rigidity, cervical lymphadenopathy. Heart: Regular rate and rhythm. There is a normal S1 and S2 with no murmurs, clicks, or gallops appreciated. Lungs: Clear to auscultation bilaterally with no wheezes, rales, or rhonchi. Abdomen: Soft, mildly tender to palpation in the right upper quadrant, nondistended, with good bowel sounds. There are no palpable pulsatile masses or hepatosplenomegaly. There is no guarding, rigidity, or rebound noted. Extremities: No evidence of cyanosis, clubbing, or edema. There are easily palpable peripheral pulses. Skin: warm and dry with good turgor and no rashes. Medical Decision & Procedures ER Provider Diagnostic Interpretation: Radiology results as stated below per my review and the radiologist's interpretation: US RUQ: Prior from 05/18/2017 Echogenic/heterogeneous liver may reflect fatty liver or other hepatic infiltrative process. Small liver cyst. Gallbladder sludge. Non-shadowing gallstones or sludge balls. No wall thickening or pericholecystic fluid. Dilated common duct measures 9.5mm. Previously 11mm. No intrahepatic biliary dilation. Radiologist: Thai Peña MD Study ready at 0323 and initial results transmitted at 0354. Laboratory Results 06/19/17 01:13 Red Blood Count 4.50, Mean Corpuscular Volume 94.9, Mean Corpuscular Hemoglobin 32.7, Mean Corpuscular Hemoglobin Concent 34.4, Mean Platelet Volume 10.7, Neutrophils (%) (Auto) 41.6, Lymphocytes (%) (Auto) 39.7, Monocytes (%) (Auto) 13.8, Eosinophils (%) (Auto) 3.7, Basophils (%) (Auto) 1.0, Neutrophils # (Auto ) 3.36, Lymphocytes # (Auto) 3.21, Monocytes # (Auto) 1.12, Eosinophils # (Auto ) 0.30, Basophils # (Auto) 0.08 06/19/17 01:13 Test 06/19/17 01:13 06/19/17 02:23 White Blood Count 8.09 K/uL (4.8-10.8) Red Blood Count 4.50 M/uL (4.7-6.1) Hemoglobin 14.7 g/dL (14.0-18.0) Hematocrit 42.7 % (42-52) Mean Corpuscular Volume 94.9 fL (80-100) Mean Corpuscular Hemoglobin 32.7 pg (25-34) Mean Corpuscular Hemoglobin Concent 34.4 g/dl (32-36) Platelet Count 124 K/uL (130-400) Mean Platelet Volume 10.7 fL (7.4-10.4) Neutrophils (%) (Auto) 41.6 % Lymphocytes (%) (Auto) 39.7 % Monocytes (%) (Auto) 13.8 % Eosinophils (%) (Auto) 3.7 % Basophils (%) (Auto) 1.0 % Neutrophils # (Auto) 3.36 K/uL (1.4-6.5) Lymphocytes # (Auto) 3.21 K/uL (1.2-3.4) Monocytes # (Auto) 1.12 K/uL (0.11-0.59) Eosinophils # (Auto) 0.30 K/uL (0-0.5) Basophils # (Auto) 0.08 K/uL (0-0.2) RDW Standard Deviation 47.6 fL (36.4-46.3) RDW Coefficient of Variation 13.8 % (11.5-14.5) Immature Granulocyte % (Auto) 0.2 % Immature Granulocyte # (Auto) 0.02 K/uL (0.00-0.02) Anion Gap 6.0 mmol/L (3-11) Est Creatinine Clear Calc Drug Dose 91.2 ml/min Estimated GFR () 105.1 Estimated GFR (Non- 90.7 BUN/Creatinine Ratio 7.8 (10-20) Calcium Level 8.9 mg/dl (8.5-10.1) Total Bilirubin 1.3 mg/dl (0.2-1) Direct Bilirubin 0.3 mg/dl (0-0.2) Aspartate Amino Transf (AST/SGOT) 28 U/L (15-37) Alanine Aminotransferase (ALT/SGPT) 23 U/L (12-78) Alkaline Phosphatase 147 U/L (45-117) Total Protein 7.8 gm/dl (6.4-8.2) Albumin 3.0 gm/dl (3.4-5.0) Lipase 287 U/L (73-393) Urine Color YELLOW Urine Appearance CLEAR (CLEAR) Urine pH 6.5 (4.5-7.5) Urine Specific [place] 1.012 (1.000-1.030) Urine Protein NEG (NEG) Urine Glucose (UA) NEG (NEG) Urine Ketones NEG (NEG) Urine Occult Blood NEG (NEG) Urine Nitrite NEG (NEG) Urine Bilirubin NEG (NEG) Urine Urobilinogen NEG (NEG) Urine Leukocyte Esterase NEG (NEG) Laboratory results per my review. Medications Administered Medications (Trade) Dose Ordered Sig/Lisa Route Start Time Stop Time Status Last Admin Dose Admin Sodium Chloride 1,000 ml @ 125 mls/hr Q8H STAT IV 06/19/17 01:24 06/19/17 05:54 DC 06/19/17 01:32 125 MLS/HR Ondansetron HCl (Zofran Inj) 4 mg NOW STAT IV 06/19/17 01:24 06/19/17 01:26 DC 06/19/17 01:32 4 MG Morphine Sulfate (MoRPHine SULFATE INJ) 4 mg NOW STAT IV 06/19/17 01:26 06/19/17 01:27 DC 06/19/17 01:33 4 MG Hydromorphone HCl (Dilaudid Inj) 1 mg NOW STAT IV 06/19/17 02:15 06/19/17 02:17 DC 06/19/17 02:20 1 MG Oxycodone HCl (Roxicodone Immediate Rel 5MG Home Pack) 1 homepack UD ONCE PO 06/19/17 04:45 06/19/17 04:46 DC 06/19/17 04:49 1 HOMEPACK Procedure 0124: Ordered Ondansetron HCl 4mg IV, Sodium Chloride 1000 ml @ 125 mls/hr IV. 0126: Ordered Morphine Sulfate 4mg IV 0215: Ordered Hydromorphone HCl 1mg IV 0445: Ordered Oxycodone HCl 1 homepack PO ED Course 0114: Past medical records reviewed. The patient was evaluated in room B11B by the medical student under my supervision. 0147: The patient was evaluated in room B11B by me. A complete history and physical examination were performed. Nursing notes were reviewed. IV lock was established and labs were drawn as above. 0124: Ordered Ondansetron HCl 4mg IV, Sodium Chloride 1000 ml @ 125 mls/hr IV. 0126: Ordered Morphine Sulfate 4mg IV. The patient will go for ultrasound of the right upper quadrant. 0212: I reevaluated the patient. He is still experiencing discomfort. I discussed the test results up to this point. 0215: Ordered Hydromorphone HCl 1mg IV 0342: The medical student reevaluated the patient. His discomfort decreased from an 8/10 to a 3/10. 0416: Upon reevaluation, the patient is comfortable. I discussed findings and results with him. He verbalized agreement of the treatment plan. The patient will be discharged home after he receives his medication. 0445: Ordered Oxycodone HCl 1 homepack PO Medical Decision The patient is a 41 year old male who presents to the ED with abdominal pain. Differential diagnosis includes pancreatitis, cholecystitis, hepatitis. Lab results show: normal renal function, glucose of 108, total bilirubin of 1.3 , erect bilirubin of 0.3, alkaline phosphate of 147, lipase is normal at 287, no leukocytosis, stable H&H. This is a 41-year-old female patient with a history of cirrhosis and recurrent gallstone pancreatitis. The patient continues to abstain from alcohol. The patient describes his pain being similar to previous episodes of gallbladder attacks. His most recent admission to the hospital was for acute pancreatitis. The patient has a normal lipase level. Ultrasound is unchanged from previous studies. The patient is comfortable at the time of discharge. The patient was given a small course of analgesia to use at home for his pain. I have encouraged him to rest and take a bland diet. I did review the risks of opioid addiction associated with the analgesia that I provided. He seems to understand this. I have asked him to follow-up with his PCP or diamond picker in the next 2 days if his symptoms persist. [place] Drug Monitoring Program Search Results: patient reviewed within database, no issues identified Medication Reconcilliation Current Medication List: was personally reviewed by me Blood Pressure Screening Patient's blood pressure: Normal blood pressure Blood pressure disposition: Did not require urgent referral Impression Primary Impression: Right upper quadrant abdominal pain Scribe Attestation The scribe's documentation has been prepared under my direction and personally reviewed by me in its entirety. I confirm that the note above accurately reflects all work, treatment, procedures, and medical decision making performed by me. Departure Information Dispostion Home / Self-Care Prescriptions Oxycodone Ir (Roxicodone Ir) 5 Mg Tab 1-2 TAB PO Q4H Y for Severe Pain, #12 TAB Prov: Jaqui Diane D.O. 06/19/17 Referrals No Doctor, Assigned (PCP) Forms Call Back Authorization, HOME CARE DOCUMENTATION FORM, IMPORTANT VISIT INFORMATION Patient Instructions My [facility] Additional Instructions Rest. Oxy-IR - 1-2 tabs. every 4-6 hours for pain. Please call GI this AM for a follow up later today.
[2017-06-19 01:34] LABS: BASO ABS # 0.08 K/uL (0-0.2); EOS % 3.7 %; HEMATOCRIT 42.7 % (42-52); HEMOGLOBIN 14.7 g/dL (14.0-18.0); IG# 0.02 K/uL (0.00-0.02); LYMPH % 39.7 %; LYMPH ABS # 3.21 K/uL (1.2-3.4); MEAN CELL VOLUME 94.9 fL (80-100); MEAN CORPUSCULAR HEMOGLOBIN 32.7 pg (25-34); MEAN CORPUSCULAR HGB CONC 34.4 g/dl (32-36); MEAN PLATELET VOLUME 10.7 fL (7.4-10.4); MONO % 13.8 %; MONO ABS # 1.12 K/uL (0.11-0.59); NEUT % 41.6 %; NEUT ABS # 3.36 K/uL (1.4-6.5); PLATELET COUNT 124 K/uL (130-400); RED CELL DISTRIBUTION WIDTH CV 13.8 % (11.5-14.5); RED CELL DISTRIBUTION WIDTH SD 47.6 fL (36.4-46.3); WHITE BLOOD COUNT 8.09 K/uL (4.8-10.8)
[2017-06-19 01:52] LABS: CALCIUM 8.9 mg/dl (8.5-10.1); CREATININE 1.01 mg/dl (0.60-1.40); POTASSIUM 3.7 mmol/L (3.5-5.1)
[2017-06-19 01:55] LABS: TOTAL PROTEIN 7.8 gm/dl (6.4-8.2)
[2017-06-19] MEDS ORDERED: HYDROmorphone INJ 1 MG/ML SYR IV STA (02:15)
[2017-06-19] MEDS ORDERED: PANT40TA PO (02:28)
[2017-06-19] MEDS ORDERED: OXYC1TAB3 PO (04:40)
[2017-06-19] MEDS ORDERED: OXYCODONE IR HOME PACK PO ONE (04:45)
[2017-06-19 05:03] VITALS: BP 122/70; PULSE 70; TEMP 36.7; O2SAT 100
--- NOTE | 2017-06-19 07:29 | DIAGNOSTIC IMAGING REPORT ---
ABDOMINAL ULTRASOUND, RIGHT UPPER QUADRANT HISTORY: Right upper quadrant pain.. COMPARISON: Abdominal ultrasound 05/18/2017. FINDINGS: Pancreas: Not well visualized due to overlying bowel gas. Liver: Slightly nodular contour suggestive of cirrhosis. There is a 9 mm cyst within the liver. Mild central intrahepatic bile duct dilatation. Liver is slightly echogenic. Gallbladder: Gallbladder remains mildly distended. Sludge and stones identified within the gallbladder. No gallbladder wall thickening. CBD: The common bile duct measures up to 1 cm, unchanged. Right kidney: No hydronephrosis. IMPRESSION: 1. No significant change compared to the prior study. 2. Stones and sludge within the gallbladder. The gallbladder remains mildly distended. No gallbladder wall thickening. 3. Mild central intra and extra hepatic bile duct dilatation, unchanged. 4. Slightly nodular contour to the liver suggestive of cirrhosis. Electronically signed by: Naresh Hayes M.D. 06/19/2017 7:27 AM Dictated Date/Time: 06/19/2017 7:23 AM
== END 2017-06-19 05:03 | disposition home or self-care (01) ==
LOC: C.EDB 01:00
DX: R10.11 Right upper quadrant pain (principal); Z82.5 Family history of asthma and other chronic lower respiratory diseases; Z83.3 Family history of diabetes mellitus; Z82.3 Family history of stroke; Z88.8 Allergy status to other drugs, medicaments and biological substances

== ENCOUNTER 2019-07-09 05:19 | Inpatient (IN) ==
--- OUTSIDE RECORDS SUMMARY | 2019-07-09 05:23 | External Medical Summary | Continuity of Care Document ---
:1975 Author Name Thania Amanda Address Unavailable Unavailable , Care Team Providers Name Role Phone Missy Carrion M.D. Unavailable [email or web address] PCP, [email or web address] Unavailable Unavailable Problems Active medical history not documented Allergies and Adverse Reactions Allergy history not documented Medications Medications not documented Procedures Procedures not documented Immunizations Immunizations not documented Plan of Treatment Planned Observations Planned Goals not documented Results No Known Results Results not documented
[2019-07-09] MEDS ORDERED: fentaNYL citrate 100 MCG/2 ML VIAL IV STA (05:51)
[2019-07-09 06:04] LABS: Basophils # (auto) 0.05 K/uL (0-0.2); Basophils % (auto) 0.6 %; Eosinophils # (auto) 0.33 K/uL (0-0.5); Eosinophils % (auto) 3.8 %; Hematocrit (blood only) 48.7 % (42-52); Hemoglobin 17.3 g/dL (14.0-18.0); Immature Granulocytes # (auto) 0.02 K/uL (0.00-0.02); Immature Granulocytes % (auto) 0.2 %; Lymphocytes # (auto) 1.42 K/uL (1.2-3.4); Lymphocytes % (auto) 16.5 %; Mean Corpuscular Hemoglobin 32.2 pg (25-34); Mean Corpuscular Hgb Conc 35.5 g/dL (32-36); Mean Corpuscular Volume 90.5 fL (80-100); Mean Platelet Volume 10.4 fL (7.4-10.4); Monocytes # (auto) 1.13 K/uL (0.11-0.59); Monocytes % (auto) 13.1 %; Neutrophils # (auto) 5.67 K/uL (1.4-6.5); Neutrophils % (auto) 65.8 %; Platelet Count 141 K/uL (130-400); RDW Coefficient of Variation 13.7 % (11.5-14.5); RDW Standard Deviation 44.8 fL (36.4-46.3); Red Blood Count 5.38 M/uL (4.7-6.1); White Blood Count 8.62 K/uL (4.8-10.8)
[2019-07-09 06:10] LABS: INR 1.2 (0.9-1.1); Partial Thromboplastin Ratio 1.1; Partial Thromboplastin Time 31.6 Seconds (21.0-31.0); Prothrombin Time 12.3 Seconds (9.0-12.0)
[2019-07-09 06:11] LABS: Alanine Aminotransferase 28 U/L (12-78); Albumin Level 3.8 gm/dl (3.4-5.0); Aspartate Aminotransferase 23 U/L (15-37); BUN Creatinine Ratio 12.9 (10-20); Blood Urea Nitrogen 13 mg/dl (7-18); Carbon Dioxide 30 mmol/L (21-32); Chloride 105 mmol/L (98-107); Creatinine Clr Calc Pharmacy 95.9 ml/min; Est GFR (African American) 102.4; Est GFR (Non-African American) 88.4; Glucose 136 mg/dl (70-99); Lipase 190 U/L (73-393); Magnesium 2.1 mg/dl (1.8-2.4); Sodium 139 mmol/L (136-145)
[2019-07-09 06:16] LABS: Albumin Globulin Ratio 0.7 (0.9-2); Alkaline Phosphatase 64 U/L (45-117); Bilirubin,Total 0.9 mg/dl (0.2-1); Globulin 5.1 gm/dl (2.5-4.0); Total Protein 8.9 gm/dl (6.4-8.2); Troponin I < 0.015 ng/ml (0-0.045)
--- NOTE | 2019-07-09 07:06 | Emergency Department Note ---
History of Present Illness General Chief complaint: Abdominal Pain Stated complaint: LT SIDE PAIN - POSSIBLE GALLBLADDER Time Seen by Provider: 07/09/19 05:30 History of Present Illness Maximum Pain Intensity: 8 This is a 43-year-old male presenting to the emergency department for evaluation of right upper quadrant abdominal pain worsening over the past 4 to 5 hours. The patient has extensive history of cirrhosis, alcohol abuse, portal hypertension, esophageal varices, and chronic cholecystitis. The patient states this feels similar to his previous episodes of cholecystitis. He evidently had a hamburger for dinner, and felt fine afterwards. He states his pain awoke him from sleep. He has not had nausea or vomiting. No fevers or chills. He feels like he is using the bathroom as normal. The patient does follow with [facility] gastroenterology, and has been felt to be a poor surgical candidate for elective cholecystectomy due to his chronic liver disease. The patient rates his current discomfort an 8/10, sharp, and nonradiating. Home Medications Home Medications Medication Instructions Recorded Confirmed Type buspirone 5 mg PO BID 06/10/18 07/09/19 History folic acid 1 mg PO QAM 06/10/18 07/09/19 History furosemide 20 mg PO QAM 06/10/18 07/09/19 History nadolol 20 mg PO HS 06/10/18 07/09/19 History potassium chloride 10 meq PO QAM 06/10/18 07/09/19 History spironolactone 25 mg PO QAM 06/10/18 07/09/19 History ursodiol 300 mg PO BID 06/10/18 07/09/19 History zolpidem 5 mg PO HS PRN 06/10/18 07/09/19 History pantoprazole 20 mg PO DAILY 07/09/19 07/09/19 History Allergies Allergy/AdvReac Type Severity Reaction Status Date / Time aspirin AdvReac Unknown THINS Verified 07/09/19 06:35 BLOOD, NOSE BLEEDS Past Med/Surg History Medical History (Updated 07/09/19 @ 12:09 by Reinaldo Wright MD) Alcoholic cirrhosis of liver Esophageal varices History of alcohol abuse (Inactive) History of macrocytic anemia (Inactive) Portal hypertension Surgical History (Updated 07/09/19 @ 12:08 by Reinaldo Wright MD) History of esophagogastroduodenoscopy (EGD) Including procedures for esophageal varices banding History of tonsillectomy Family History Mother Diabetes Father Prostate cancer Other No family history of adverse response to anesthesia Social History Preferred Language: Estonian Communication Ability: Effective Document Control Coordinator Required: No Beliefs That Will Affect Care: None Current Living Situation: Parent Current Living Situation Comment: lives with parents Other Information That Helps Us Care for You: No Feels Safe at Home: Yes Safety Concerns: Feels Safe At This Time Smoking Status: Never smoker Tobacco Type: smokeless tobacco ; Second Hand Exposure: No ; Hx Alcohol Use: No Hx Substance Use: No Review of Systems A total of 10 systems reviewed and were otherwise negative Physical Exam Vital Signs Vital Signs - 24 hr 07/09/19 05:25 07/09/19 06:09 07/09/19 06:10 Temperature 36.4 C L Temperature Source Oral Pulse Rate 51 L 48 L Pulse Rate from SpO2 Sensor Respiratory Rate 18 14 Respiratory Effort / Characteristics Non-Labored Respiratory Depth Normal Blood Pressure 121/73 Blood Pressure Mean 89 Pulse Oximetry 97 Oxygen Delivery Method Room Air Room Air Sepsis Recent Fever Within 48 Hours No Sepsis New/Unexplained Change in Mental Status No Sepsis Action Taken by Nursing No Action Required 07/09/19 07:40 07/09/19 07:41 07/09/19 08:00 Temperature Temperature Source Pulse Rate 52 L 50 L 61 Pulse Rate from SpO2 Sensor 53 L 53 L 54 L Respiratory Rate 15 14 11 L Respiratory Effort / Characteristics Respiratory Depth Blood Pressure 126/85 139/82 Blood Pressure Mean 109 103 Pulse Oximetry 99 100 98 Oxygen Delivery Method Room Air Room Air Room Air Sepsis Recent Fever Within 48 Hours Sepsis New/Unexplained Change in Mental Status Sepsis Action Taken by Nursing VITALS: Vitals are noted on the nurse's note and reviewed by myself. Vital signs stable. GENERAL: White male who is slightly pale on presentation. He is splinting his right upper quadrant. HEAD: Normocephalic atraumatic. NECK: Supple without nuchal rigidity. No lymphadenopathy. No thyromegaly. Cervical spine is nontender. HEART: Regular rate and rhythm without murmurs gallops or rubs. LUNGS: Clear to auscultation bilaterally without wheezes, rales or rhonchi. No retractions or accessory muscle use. ABDOMEN: Positive normal bowel sounds x 4. Soft with distinct right upper quadrant tenderness. MUSCULOSKELETAL: No muscle atrophy, erythema, or edema noted. Full range of motion in all extremities. NEURO: Patient was alert and oriented to person place and time. CN II through XII grossly intact. SKIN: The skin was without rashes, erythema, edema, or bruising. Capillary refill less than 2 seconds. Course Administered Medications Acetaminophen (Tylenol) 650 mg PO Q4H PRN PRN Reason: pain/fever Stop: 08/08/19 09:43 Last Admin: 07/09/19 23:35 Dose: 650 mg Documented by: [id number] Buspirone HCl (Buspar) 5 mg PO BID LANDRY Stop: 08/08/19 20:59 Last Admin: 07/09/19 21:26 Dose: Not Given Documented by: [id number] Sodium Chloride (Nss 1000ml) 1,000 mls @ 125 mls/hr IV .Q8H LANDRY Stop: 08/08/19 09:43 Last Infusion: 07/09/19 20:14 Dose: 125 mls/hr Documented by: [id number] Admin: 07/09/19 19:50 Dose: 125 mls/hr Documented by: [id number] Infusion: 07/09/19 19:50 Dose: 125 mls/hr Documented by: [id number] Infusion: 07/09/19 17:21 Dose: 125 mls/hr Documented by: [id number] Infusion: 07/09/19 16:15 Dose: 0 mls/hr Documented by: [id number] Admin: 07/09/19 10:55 Dose: 125 mls/hr Documented by: [id number] Piperacillin Sod/Tazobactam (Sod 3.375 gm/ Dextrose) 115 mls @ 28.75 mls/hr IV Q8H LANDRY; Protocol Stop: 07/19/19 15:59 Last Admin: 07/09/19 23:31 Dose: 28.8 mls/hr Documented by: [id number] Infusion: 07/09/19 20:14 Dose: 0 mls/hr Documented by: [id number] Admin: 07/09/19 16:14 Dose: 28.8 mls/hr Documented by: [id number] Morphine Sulfate (Morphine Sulfate) 4 mg IV Q3H PRN PRN Reason: Pain Stop: 07/23/19 15:29 Last Admin: 07/09/19 21:50 Dose: 4 mg Documented by: [id number] Admin: 07/09/19 18:44 Dose: 4 mg Documented by: [id number] Admin: 07/09/19 15:41 Dose: 4 mg Documented by: [id number] Nadolol (Corgard) 20 mg PO HS LANDRY Stop: 08/08/19 20:59 Last Admin: 07/09/19 21:26 Dose: Not Given Documented by: [id number] Ursodiol (Actigall) 300 mg PO BID LANDRY Stop: 08/08/19 20:59 Last Admin: 07/09/19 21:26 Dose: Not Given Documented by: [id number] Discontinued Medications Fentanyl Citrate (Fentanyl Citrate) 50 mcg IV NOW STA Stop: 07/09/19 05:52 Last Admin: 07/09/19 05:57 Dose: 50 mcg Documented by: [id number] Hydromorphone HCl (Dilaudid) 0.5 mg IV NOW STA Stop: 07/09/19 10:00 Last Admin: 07/09/19 10:15 Dose: 0.5 mg Documented by: [id number] Piperacillin Sod/Tazobactam (Sod 3.375 gm/ Dextrose) 115 mls @ 230 mls/hr IV NOW ONE; Protocol Stop: 07/09/19 10:59 Last Infusion: 07/09/19 10:54 Dose: 0 mls/hr Documented by: [id number] Admin: 07/09/19 10:15 Dose: 230 mls/hr Documented by: [id number] Morphine Sulfate (Morphine Sulfate) 4 mg IV NOW STA Stop: 07/09/19 08:59 Last Admin: 07/09/19 09:04 Dose: 4 mg Documented by: [id number] Morphine Sulfate (Morphine Sulfate) 4 mg IV Q4H PRN PRN Reason: Pain Stop: 07/23/19 09:43 Last Admin: 07/09/19 12:31 Dose: 4 mg Documented by: [id number] Ondansetron HCl (Zofran) 4 mg IV NOW STA Stop: 07/09/19 08:59 Last Admin: 07/09/19 09:04 Dose: 4 mg Documented by: [id number] Medical Decision Making Differential Diagnosis Differential diagnosis: Etiologies such as biliary colic, cholecystitis, hepatitis, pancreatitis, cardiac disease, pancreatitis, gastritis, peptic ulcer disease, appendicitis, cystitis, diverticulitis, mesenteric ischemia, inflammatory bowel disease, ileus, bowel obstruction, testicular/adnexal torsion, aortic pathology, shingles, as well as others were considered Laboratory Data Result diagrams: 07/09/19 05:35 07/09/19 05:35 Lab Results 07/09/19 07/09/19 07/09/19 Range/Units 05:35 05:35 05:35 WBC 8.62 (4.8-10.8) K/uL RBC 5.38 (4.7-6.1) M/uL Hgb 17.3 (14.0-18.0) g/dL Hct 48.7 (42-52) % MCV 90.5 (80-100) fL MCH 32.2 (25-34) pg MCHC 35.5 (32-36) g/dL RDW Std Deviation 44.8 (36.4-46.3) fL RDW Coeff of Hang 13.7 (11.5-14.5) % Plt Count 141 (130-400) K/uL MPV 10.4 (7.4-10.4) fL Immature Gran % (Auto) 0.2 % Neut % (Auto) 65.8 % Lymph % (Auto) 16.5 % [place] % (Auto) 13.1 % Eos % (Auto) 3.8 % Baso % (Auto) 0.6 % Immature Gran # (Auto) 0.02 (0.00-0.02) K/uL Neut # (Auto) 5.67 (1.4-6.5) K/uL Lymph # (Auto) 1.42 (1.2-3.4) K/uL [place] # (Auto) 1.13 H (0.11-0.59) K/uL Eos # (Auto) 0.33 (0-0.5) K/uL Baso # (Auto) 0.05 (0-0.2) K/uL PT 12.3 H (9.0-12.0) Seconds INR 1.2 H (0.9-1.1) APTT 31.6 H (21.0-31.0) Seconds PTT Ratio 1.1 Sodium 139 (136-145) mmol/L Potassium 4.0 (3.5-5.1) mmol/L Chloride 105 (98-107) mmol/L Carbon Dioxide 30 (21-32) mmol/L Anion Gap 3.0 (3-11) BUN 13 (7-18) mg/dl Creatinine 1.02 (0.6-1.4) mg/dl Est Cr Clr Drug Dosing 95.9 ml/min Est GFR ( Amer) 102.4 Est GFR (Non-Af Amer) 88.4 BUN/Creatinine Ratio 12.9 (10-20) Glucose 136 H (70-99) mg/dl Calcium 9.0 (8.5-10.1) mg/dl Magnesium 2.1 (1.8-2.4) mg/dl Total Bilirubin 0.9 (0.2-1) mg/dl AST 23 (15-37) U/L ALT 28 (12-78) U/L Alkaline Phosphatase 64 (45-117) U/L Troponin I < 0.015 (0-0.045) ng/ml Total Protein 8.9 H (6.4-8.2) gm/dl Albumin 3.8 (3.4-5.0) gm/dl Globulin 5.1 H (2.5-4.0) gm/dl Albumin/Globulin Ratio 0.7 L (0.9-2) Lipase 190 (73-393) U/L Ethyl Alcohol mg/dL (0-3) mg/dl 07/09/19 Range/Units 06:07 WBC (4.8-10.8) K/uL RBC (4.7-6.1) M/uL Hgb (14.0-18.0) g/dL Hct (42-52) % MCV (80-100) fL MCH (25-34) pg MCHC (32-36) g/dL RDW Std Deviation (36.4-46.3) fL RDW Coeff of Hang (11.5-14.5) % Plt Count (130-400) K/uL MPV (7.4-10.4) fL Immature Gran % (Auto) % Neut % (Auto) % Lymph % (Auto) % [place] % (Auto) % Eos % (Auto) % Baso % (Auto) % Immature Gran # (Auto) (0.00-0.02) K/uL Neut # (Auto) (1.4-6.5) K/uL Lymph # (Auto) (1.2-3.4) K/uL [place] # (Auto) (0.11-0.59) K/uL Eos # (Auto) (0-0.5) K/uL Baso # (Auto) (0-0.2) K/uL PT (9.0-12.0) Seconds INR (0.9-1.1) APTT (21.0-31.0) Seconds PTT Ratio Sodium (136-145) mmol/L Potassium (3.5-5.1) mmol/L Chloride (98-107) mmol/L Carbon Dioxide (21-32) mmol/L Anion Gap (3-11) BUN (7-18) mg/dl Creatinine (0.6-1.4) mg/dl Est Cr Clr Drug Dosing ml/min Est GFR ( Amer) Est GFR (Non-Af Amer) BUN/Creatinine Ratio (10-20) Glucose (70-99) mg/dl Calcium (8.5-10.1) mg/dl Magnesium (1.8-2.4) mg/dl Total Bilirubin (0.2-1) mg/dl AST (15-37) U/L ALT (12-78) U/L Alkaline Phosphatase (45-117) U/L Troponin I (0-0.045) ng/ml Total Protein (6.4-8.2) gm/dl Albumin (3.4-5.0) gm/dl Globulin (2.5-4.0) gm/dl Albumin/Globulin Ratio (0.9-2) Lipase (73-393) U/L Ethyl Alcohol mg/dL < 3.0 (0-3) mg/dl Imaging Data Radiologist's Impression: US gallbladder CLINICAL HISTORY: RUQ abd pain. Hx liver cirrhosis/chronic cholecyst COMPARISON STUDY: June 19, 2017 FINDINGS: The pancreas appears normal as visualized. The liver demonstrates a diffusely coarsened echotexture, consistent with the clinical history of cirrhos is. There is a 7 mm hepatic cyst. The gallbladder contains echogenic nonshadowing foci within the neck, likely representing nonshadowing calculi versus tumefactive sludge. The common bile duct is minimally dilated measuring 7 mm. IMPRESSION: 1. 18 mm nonshadowing gallbladder calculus versus tumefactive sludge within the gallbladder neck. 2. Mild gallbladder distention, but no significant wall thickening 3. 7 mm common bile duct 4. Coarsened hepatic echotexture consistent with the clinical history of cirrhosis. ECG Data Attestation: I personally reviewed and interpreted this ECG as follows: Indication: abdominal pain Additional Comments: Marked sinus bradycardia @43bpm Normal QT at 460 Cannot rule out Inferior infarct , age undetermined Abnormal ECG When compared with ECG of 01-NOV-2016 17:38, No significant change was found MDM Narrative Physical exam and history were performed. Nursing notes, EMR, and Medication List were personally reviewed. Patient appears to have right upper quadrant abdominal pain bringing him to the ER tonight. On examination the patient does have guarding and tenderness in this distribution. He has a history of cirrhosis and chronic cholecystitis. He has been considered a poor surgical candidate because of his chronic liver disease, and has not had cholecystectomy performed. The patient is afebrile here in the ER. IV access was established and labs were obtained. He was h ydrated with normal saline and given IV fentanyl for pain control. The patient was sent to ultrasound. The patient's blood work is as above and was reviewed. He does not have an elevated white blood cell count or gross anemia. Lipase and transaminases are not diagnostic. Troponin x1 is negative. Glucose is 136. His calculated meld score is 9. Bilirubin is 0.9. Urine is without evidence of infection. Alcohol is negative. The patient's ultrasound was reviewed by myself and radiology, and appears to show tumefactive sludge without distinct cholecystitis. The patient was placed on the rodent exterminator due to his discomfort, and did remain in sinus bradycardia with a rate of 51 while in the ER. On reevaluation the patient was somewhat improved but not completely pain-free. I discussed options of care with the patient, and he has had multiple hospitalizations for similar issues. I did offer options of at home treatment versus staying in the hospital, and the patient suspects that his symptoms were worse than before improved. I did discuss the case with the on-call [facility] hospitalist, who agreed to evaluate the patient here in the ER. Please see their dictation for further patient course, plan, and disposition. The chart was completed utilizing [employer] Voice Recognition Software. Grammatical errors, random word insertions, pronoun errors, and incomplete sen tences are an occasional consequence of this system due to software limitations, ambient noise, and hardware issues. Any formal questions or concerns about the content, text, or information contained within the body of this dictation should be directly addressed to the provider for clarification. . Impression & Plan RUQ abdominal pain Discharge Plan Visit Data *Final* Discharge Date/Time: 07/09/19 08:52 Chief Complaint: Abdominal Pain Stated Complaint: LT SIDE PAIN - POSSIBLE GALLBLADDER ED Provider: Aleisha Bell ED Midlevel Provider: Rahul Massey Discharge Problem: RUQ abdominal pain Patient Disposition: Admitted As Inpatient Discharge Instructions Interventions: ED Discharge Assessment Last Done: 07/09/19 08:52
--- NOTE | 2019-07-09 07:13 | Ultrasound Report ---
US gallbladder CLINICAL HISTORY: RUQ abd pain. Hx liver cirrhosis/chronic cholecyst COMPARISON STUDY: June 19, 2017 FINDINGS: The pancreas appears normal as visualized. The liver demonstrates a diffusely coarsened ech otexture, consistent with the clinical history of cirrhosis. There is a 7 mm hepatic cyst. The gallbl adder contains echogenic nonshadowing foci within the neck, likely representing nonshadowing calculi versus tumefactive sludge. The common bile duct is minimally dilated measuring 7 mm. IMPRESSION: 1. 18 mm nonshadowing gallbladder calculus versus tumefactive sludge within the gallbladder neck. 2. Mild gallbladder distention, but no significant wall thickening 3. 7 mm common bile duct 4. Coarsened hepatic echotexture consistent with the clinical history of cirrhosis. ACT 112: Negative or not required by law. Electronically signed by: Jose Raul Flores M.D. 07/09/2019 7:12 AM
[2019-07-09] MEDS ORDERED: MoRPHine SULFATE 4 MG/ML 1 ML CARP\\VIAL IV STA (08:58)
[2019-07-09] MEDS ORDERED: ONDANSETRON INJ 2 MG/ML 2 ML VIAL IV STA (08:58)
[2019-07-09 09:22] LABS: Appearance Urine Clear (Clear); Bilirubin Urine Negative (Negative); Blood Urine Negative (Negative); Color Urine Yellow; Glucose Urine UA Negative (Negative); Ketones Urine Negative (Negative); Leukocyte Esterase Urine Negative (Negative); Nitrite Urine Negative (Negative); Protein Urine Negative (Negative); Specific Gravity Urine 1.025 (1.000-1.030); Urobilinogen Urine Negative (Negative); pH Urine 5.5 (4.5-7.5)
[2019-07-09] MEDS ORDERED: ONDANSETRON INJ 2 MG/ML 2 ML VIAL IV PRN (09:44)
[2019-07-09] MEDS ORDERED: MoRPHine SULFATE 4 MG/ML 1 ML CARP\\VIAL IV PRN (09:44)
[2019-07-09] MEDS ORDERED: PIPERACILL/TAZOBAC CONSULT ACTIVE PRN (09:44)
[2019-07-09 09:45] LABS: Amphetamines+Metham, Urine Neg (Neg); Barbiturates, Urine Neg (Neg); Benzodiazepine, Urine Neg (Neg); Cocaine, Urine Neg (Neg); MDMA (Ecstacy), Urine Neg (Neg); Methadone, Urine Neg (Neg); Opiate, Urine Neg (Neg); Phencyclidine, Urine Neg (Neg)
--- NOTE | 2019-07-09 09:54 | History & Physical Report ---
Date of Service July 09, 2019 Assessment & Plan (1) Biliary colic: -Admit to [facility] -Patient presenting from home with reports of right upper quadrant abdominal pain -History of gallstone pancreatitis in the past however elective cholecystectomy was deferred due to patient's underlying alcoholic cirrhosis -In the ED, patient is afebrile without leukocytosis, LFTs and lipase WNL -Gallbladder ultrasound showing 18 mm nonshadowing gallbladder calculus versus tumefactive sludge within the gallbladder neck and mild gallbladder distention, but no significant wall thickening -? Biliary colic vs early cholecystitis -will start empiric IV Zosyn -N.p.o., IVF -General surgery consult, case discussed with Deb Haley PA-C -Consider HIDA scan (2) Alcoholic cirrhosis of liver: -Appears compensated -Has been abstinent from alcohol since 2015 -EGD 05/2018: Grade 2 esophageal varices s/p banding, portal hypertensive gastropathy -Hold Lasix and spironolactone while n.p.o. and receiving IVF (3) DVT prophylaxis: -SCDs, ambulate Admission and Anticipated Discharge Date Admission Date: July 09, 2019 History of Present Illness Chief Complaint: Right upper quadrant abdominal pain Primary Care Provider: Michelle Borrego DO 43-year-old male who presents the ED with right upper quadrant abdominal pain. Patient reports his symptoms began around 2 AM. Pain has been moderately severe and persistent. He reports some associated nausea however no vomiting. Reports normal bowel movements, no diarrhea. States he had a hamburger for dinner last night. Denies fevers and chills. No chest pain or shortness of breath. Denies lightheadedness, dizziness, diaphoresis, syncopal events. No urinary symptoms. Patient with history of gallstone pancreatitis in the past however elective cholecystectomy was deferred secondary to patient's underlying alcoholic cirrhosis. In the ED, patient is afebrile and there is no leukocytosis. LFTs and lipase WNL. RUQ US shows 18 mm nonshadowing gallbladder calculus versus tumefactive sludge within the gallbladder neck and mild gallbladder distention, but no significant wall thickening. Patient was given IV fentanyl. Allergies Allergy/AdvReac Type Severity Reaction Status Date / Time aspirin AdvReac Unknown THINS Verified 07/09/19 06:35 BLOOD, NOSE BLEEDS Home Medications Home Medications Medication Instructions Recorded Confirmed Type buspirone 5 mg PO BID 06/10/18 07/09/19 History folic acid 1 mg PO QAM 06/10/18 07/09/19 History furosemide 20 mg PO QAM 06/10/18 07/09/19 History nadolol 20 mg PO HS 06/10/18 07/09/19 History potassium chloride 10 meq PO QAM 06/10/18 07/09/19 History spironolactone 25 mg PO QAM 06/10/18 07/09/19 History ursodiol 300 mg PO BID 06/10/18 07/09/19 History zolpidem 5 mg PO HS PRN 06/10/18 07/09/19 History pantoprazole 20 mg PO DAILY 07/09/19 07/09/19 History Past Med/Surg History Medical History (Updated 07/09/19 @ 12:09 by Reinaldo Wright MD) Alcoholic cirrhosis of liver Esophageal varices History of alcohol abuse (Inactive) History of macrocytic anemia (Inactive) Portal hypertension Surgical History (Updated 07/09/19 @ 12:08 by Reinaldo Wright MD) History of esophagogastroduodenoscopy (EGD) Including procedures for esophageal varices banding History of tonsillectomy Family History Mother Diabetes Father Prostate cancer Other No family history of adverse response to anesthesia Social History Preferred Language: Yemeni Communication Ability: Effective Hogshead Mat 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 Required: No Beliefs That Will Affect Care: None Current Living Situation: Parent Current Living Situation Comment: lives with parents Other Information That Helps Us Care for You: No Feels Safe at Home: Yes Safety Concerns: Feels Safe At This Time Smoking Status: Never smoker Tobacco Type: smokeless tobacco ; Second Hand Exposure: No ; Hx Alcohol Use: No Hx Substance Use: No Review of Systems Review of Systems: ROS per HPI, all other systems reviewed and negative Physical Exam Constitutional: WD/WN, vitals as above + ill appearing (Restless, appears to be in pain) Eyes: PERRL, conjunctivae normal, anicteric sclerae ENMT: external ear and nose normal, oropharynx normal Respiratory: normal respiratory effort, lungs clear to auscultation Cardiovascular: Rate/Rhythm: regular rate and regular rhythm Vessels: normal peripheral pulses Extremities: no edema Gastrointestinal (Abdomen): Inspection/Auscultation: normal bowel sounds Percussion/Palpation: + abdomen tender (RUQ) and abdomen soft; no hepatosplenomegaly Musculoskeletal: no cyanosis or clubbing, extremities motor strength 5/5 Skin: no rashes, warm and dry Neurologic: PERRL, EOMI, accommodation nl, no face palsy, no dysarthria Psychiatric: A+Ox3, euthymic affect Results & Data Results & Data ([facility]) Vital Signs (Past 12 Hours) Vital Signs Temp Pulse Pulse Resp BP BP Pulse Ox 07/09/19 09:07 56 L 16 136/78 99 07/09/19 08:52 60 14 99 07/09/19 08:00 61 11 L 139/82 98 07/09/19 07:41 50 L 14 100 07/09/19 07:40 52 L 15 126/85 99 07/09/19 06:09 48 L 14 07/09/19 05:25 36.4 C L 51 L 18 121/73 97 Laboratory Results Short CBC 07/09/19 Range/Units 05:35 WBC 8.62 (4.8-10.8) K/uL Hgb 17.3 (14.0-18.0) g/dL Hct 48.7 (42-52) % Plt Count 141 (130-400) K/uL BMP 07/09/19 05:35 Sodium 139 Potassium 4.0 Chloride 105 Carbon Dioxide 30 BUN 13 Creatinine 1.02 Glucose 136 H Calcium 9.0 Cardiac Enzymes 07/09/19 Range/Units 05:35 Troponin I < 0.015 (0-0.045) ng/ml Liver Function 07/09/19 Range/Units 05:35 Total Bilirubin 0.9 (0.2-1) mg/dl AST 23 (15-37) U/L ALT 28 (12-78) U/L Alkaline Phosphatase 64 (45-117) U/L Albumin 3.8 (3.4-5.0) gm/dl Urine 07/09/19 Range/Units 09:12 Urine Color Yellow Urine Appearance Clear (Clear) Urine pH 5.5 (4.5-7.5) Ur Specific [place] 1.025 (1.000-1.030) Urine Protein Negative (Negative) Urine Glucose (UA) Negative (Negative) Diagnostic Findings GALLBLADDER ULTRASOUND IMPRESSION: 1. 18 mm nonshadowing gallbladder calculus versus tumefactive sludge within the gallbladder neck. 2. Mild gallbladder distention, but no significant wall thickening 3. 7 mm common bile duct 4. Coarsened hepatic echotexture consistent with the clinical history of cirrhosis. Code Status & VTE Plan VTE Prophylaxis Plan VTE Prophylaxis will be ordered: Yes Supervising Physician Co-Signing Physician Notes Attending Addendum: care coordinated with RUPERT Hearn please refer to her notes for full details, I agree with her notes patient seen and examined, records reviewed by myself as well on exam, patient seen resting in bed, not in distress states pain is controlled by PRN Morphine, but does not last that long denies nausea, fever/chills no other symptoms VS noted and reviewed oriented x 3, not in distress, speaks in sentences with no effort nor accessory muscle use normal rate, regular rhythm, no murmurs clear breath sounds bilaterally non distended, soft, Mild RUQ tenderness no bipedal edema, erythema, warmth no neuro deficits WBC 8.6 Crea 1.02 GB US: 1. 18 mm nonshadowing gallbladder calculus versus tumefactive sludge within the gallbladder neck. 2. Mild gallbladder distention, but no significant wall thickening 3. 7 mm common bile duct 4. Coarsened hepatic echotexture consistent with the clinical history of cirrhosis. ASSESSMENT AND PLAN> Possible Acute Cholecystitis HIDA scan ordered IV ZOsyn, NPO Gen Surg consulted Liver Cirrhosis hold diuretics other diagnoses and plan of care as per RUPERT Hearn's notes Milton Montero MD
[2019-07-09] MEDS ORDERED: HYDROmorphone INJ 0.5 MG/0.5 ML SYR IV STA (09:59)
[2019-07-09] MEDS ORDERED: PIPERACILLIN/TAZOBACTAM 3.375 GM in DEXTROSE 5% 100 ML IV ONE (10:30)
[2019-07-09] MEDS: SODIUM CHLORIDE 0.9% 1000ML 1,000 ML IV SCH ×2 (10:55→19:50)
--- NOTE | 2019-07-09 12:03 | Surgery Consultation ---
Date of Consultation July 09, 2019 Assessment & Plan (1) Abdominal pain: This patient has abdominal pain. He points now to the epigastric region. He has no right subcostal tenderness. His ultrasound showed sludge most likely since it was nonshadowing. There was no gallbladder wall thickening or pericholecystic fluid and his LFTs and white blood cell count are normal. Would not want to operate on this patient unless absolutely necessary as he is at significantly increased risk related to his cirrhosis. Would get a hepatobiliary scan to assess for patency of the cystic duct. We will continue to follow. History of Present Illness Reason for Consultation: Abdominal pain Requesting Physician: RUPERT Florez Attending Physician: Milton Montero MD History of Present Illness This is a 43-year-old male who presented to the emergency room this morning with a complaint of abdominal pain. He said that it began about 1 or 2:00 this morning. It was diffuse abdominal discomfort with no particular site predominating. It did not radiate to his back. He had nausea but did not vomit. His bowels have been moving well. He has a history of cirrhosis with varices. He has undergone EGD with banding of those in the past. He has a history of pancreatitis felt to be biliary in origin. The discomfort from that was upper abdomen mostly in the right subcostal region which feels different than this episode. He was given morphine. He had resolution of the discomfort for about an hour now it is returning but now it is located in the subxiphoid area. There is no right subcostal component at the present time. He no longer has nausea. He has no dysuria or hematuria. Allergies Allergy/AdvReac Type Severity Reaction Status Date / Time aspirin AdvReac Unknown THINS Verified 07/09/19 06:35 BLOOD, NOSE BLEEDS Home Medications Home Medications Medication Instructions Recorded Confirmed Type buspirone 5 mg PO BID 06/10/18 07/09/19 History folic acid 1 mg PO QAM 06/10/18 07/09/19 History furosemide 20 mg PO QAM 06/10/18 07/09/19 History nadolol 20 mg PO HS 06/10/18 07/09/19 History potassium chloride 10 meq PO QAM 06/10/18 07/09/19 History spironolactone 25 mg PO QAM 06/10/18 07/09/19 History ursodiol 300 mg PO BID 06/10/18 07/09/19 History zolpidem 5 mg PO HS PRN 06/10/18 07/09/19 History pantoprazole 20 mg PO DAILY 07/09/19 07/09/19 History Patient History Medical History (Updated 07/09/19 @ 12:09 by Reinaldo Wright MD) Alcoholic cirrhosis of liver Esophageal varices History of alcohol abuse (Inactive) History of macrocytic anemia (Inactive) Portal hypertension Surgical History (Updated 07/09/19 @ 12:08 by Reinaldo Wright MD) History of esophagogastroduodenoscopy (EGD) Including procedures for esophageal varices banding History of tonsillectomy Family History Mother Diabetes Father Prostate cancer Other No family history of adverse response to anesthesia Social History Preferred Language: [place]ian Communication Ability: Effective Manager Fast Food Required: No Beliefs That Will Affect Care: None Current Living Situation: Parent Current Living Situation Comment: lives with parents Feels Safe at Home: Yes Smoking Status: Never smoker Tobacco Type: smokeless tobacco ; Second Hand Exposure: No ; Hx Alcohol Use: No (quit 2 1/2ys ago--was an alcoholic) Hx Substance Use: No Review of Systems Review of Systems: All systems reviewed & are unremarkable except as noted in HPI & below Physical Exam Constitutional: well developed and well nourished Respiratory: normal respiratory effort, lungs clear to auscultation Cardiovascular: Rate/Rhythm: regular rhythm and + bradycardic Gastrointestinal (Abdomen): Inspection/Auscultation: normal bowel sounds; abdomen not distended Percussion/Palpation: + abdomen tender (Minimal tenderness, his pain is in the epigastric area but palpation of [place]) and abdomen soft Lymphatic: no cervical lymphadenopathy Results & Data Vital Signs (Past 12 Hours) Vital Signs Temp Pulse Pulse Resp BP BP Pulse Ox 07/09/19 09:07 56 L 16 136/78 99 07/09/19 08:52 60 14 99 07/09/19 08:00 61 11 L 139/82 98 07/09/19 07:41 50 L 14 100 07/09/19 07:40 52 L 15 126/85 99 04/10/20 06:09 48 L 14 07/09/19 05:25 36.4 C L 51 L 18 121/73 97 Laboratory Results 07/09/19 07/09/19 07/09/19 Range/Units 09:12 09:12 06:07 WBC (4.8-10.8) K/uL RBC (4.7-6.1) M/uL Hgb (14.0-18.0) g/dL Hct (42-52) % MCV (80-100) fL MCH (25-34) pg MCHC (32-36) g/dL RDW Std Deviation (36.4-46.3) fL RDW Coeff of Hang (11.5-14.5) % Plt Count (130-400) K/uL MPV (7.4-10.4) fL Immature Gran % (Auto) % Neut % (Auto) % Lymph % (Auto) % [place] % (Auto) % Eos % (Auto) % Baso % (Auto) % Immature Gran # (Auto) (0.00-0.02) K/uL Neut # (Auto) (1.4-6.5) K/uL Lymph # (Auto) (1.2-3.4) K/uL [place] # (Auto) (0.11-0.59) K/uL Eos # (Auto) (0-0.5) K/uL Baso # (Auto) (0-0.2) K/uL PT (9.0-12.0) Seconds INR (0.9-1.1) APTT (21.0-31.0) Seconds PTT Ratio Sodium (136-145) mmol/L Potassium (3.5-5.1) mmol/L Chloride (98-107) mmol/L Carbon Dioxide (21-32) mmol/L Anion Gap (3-11) BUN (7-18) mg/dl Creatinine (0.6-1.4) mg/dl Est Cr Clr Drug Dosing ml/min Est GFR ( Amer) Est GFR (Non-Af Amer) BUN/Creatinine Ratio (10-20) Glucose (70-99) mg/dl Calcium (8.5-10.1) mg/dl Magnesium (1.8-2.4) mg/dl Total Bilirubin (0.2-1) mg/dl AST (15-37) U/L ALT (12-78) U/L Alkaline Phosphatase (45-117) U/L Troponin I (0-0.045) ng/ml Total Protein (6.4-8.2) gm/dl Albumin (3.4-5.0) gm/dl Globulin (2.5-4.0) gm/dl Albumin/Globulin Ratio (0.9-2) Lipase (73-393) U/L Urine Color Yellow Urine Appearance Clear (Clear) Urine pH 5.5 (4.5-7.5) Ur Specific [place] 1.025 (1.000-1.030) Urine Protein Negative (Negative) Urine Glucose (UA) Negative (Negative) Urine Ketones Negative (Negative) Urine Blood Negative (Negative) Urine Nitrite Negative (Negative) Urine Bilirubin Negative (Negative) Urine Urobilinogen Negative (Negative) Ur Leukocyte Esterase Negative (Negative) Urine Opiates Screen Neg (Neg) Ur Methadone, Qual Neg (Neg) Urine Barbiturates Neg (Neg) Ur Phencyclidine (PCP) Neg (Neg) U Amphetamin/Meth Scrn Neg (Neg) MDMA (Ecstasy) Screen Neg (Neg) U Benzodiazepines Scrn Neg (Neg) Ur Cocaine Metabolite Neg (Neg) U Marijuana (THC) Screen Neg (Neg) Ethyl Alcohol mg/dL < 3.0 (0-3) mg/dl 07/09/19 07/09/19 07/09/19 Range/Units 05:35 05:35 05:35 WBC 8.62 (4.8-10.8) K/uL RBC 5.38 (4.7-6.1) M/uL Hgb 17.3 (14.0-18.0) g/dL Hct 48.7 (42-52) % MCV 90.5 (80-100) fL MCH 32.2 (25-34) pg MCHC 35.5 (32-36) g/dL RDW Std Deviation 44.8 (36.4-46.3) fL RDW Coeff of Hang 13.7 (11.5-14.5) % Plt Count 141 (130-400) K/uL MPV 10.4 (7.4-10.4) fL Immature Gran % (Auto) 0.2 % Neut % (Auto) 65.8 % Lymph % (Auto) 16.5 % [place] % (Auto) 13.1 % Eos % (Auto) 3.8 % Baso % (Auto) 0.6 % Immature Gran # (Auto) 0.02 (0.00-0.02) K/uL Neut # (Auto) 5.67 (1.4-6.5) K/uL Lymph # (Auto) 1.42 (1.2-3.4) K/uL [place] # (Auto) 1.13 H (0.11-0.59) K/uL Eos # (Auto) 0.33 (0-0.5) K/uL Baso # (Auto) 0.05 (0-0.2) K/uL PT 12.3 H (9.0-12.0) Seconds INR 1.2 H (0.9-1.1) APTT 31.6 H (21.0-31.0) Seconds PTT Ratio 1.1 Sodium 139 (136-145) mmol/L Potassium 4.0 (3.5-5.1) mmol/L Chloride 105 (98-107) mmol/L Carbon Dioxide 30 (21-32) mmol/L Anion Gap 3.0 (3-11) BUN 13 (7-18) mg/dl Creatinine 1.02 (0.6-1.4) mg/dl Est Cr Clr Drug Dosing 95.9 ml/min Est GFR ( Amer) 102.4 Est GFR (Non-Af Amer) 88.4 BUN/Creatinine Ratio 12.9 (10-20) Glucose 136 H (70-99) mg/dl Calcium 9.0 (8.5-10.1) mg/dl Magnesium 2.1 (1.8-2.4) mg/dl Total Bilirubin 0.9 (0.2-1) mg/dl AST 23 (15-37) U/L ALT 28 (12-78) U/L Alkaline Phosphatase 64 (45-117) U/L Troponin I < 0.015 (0-0.045) ng/ml Total Protein 8.9 H (6.4-8.2) gm/dl Albumin 3.8 (3.4-5.0) gm/dl Globulin 5.1 H (2.5-4.0) gm/dl Albumin/Globulin Ratio 0.7 L (0.9-2) Lipase 190 (73-393) U/L Urine Color Urine Appearance (Clear) Urine pH (4.5-7.5) Ur Specific [place] (1.000-1.030) Urine Protein (Negative) Urine Glucose (UA) (Negative) Urine Ketones (Negative) Urine Blood (Negative) Urine Nitrite (Negative) Urine Bilirubin (Negative) Urine Urobilinogen (Negative) Ur Leukocyte Esterase (Negative) Urine Opiates Screen (Neg) Ur Methadone, Qual (Neg) Urine Barbiturates (Neg) Ur Phencyclidine (PCP) (Neg) U Amphetamin/Meth Scrn (Neg) MDMA (Ecstasy) Screen (Neg) U Benzodiazepines Scrn (Neg) Ur Cocaine Metabolite (Neg) U Marijuana (THC) Screen (Neg) Ethyl Alcohol mg/dL (0-3) mg/dl Diagnostic Findings US gallbladder CLINICAL HISTORY: RUQ abd pain. Hx liver cirrhosis/chronic cholecyst COMPARISON STUDY: June 19, 2017 FINDINGS: The pancreas appears normal as visualized. The liver demonstrates a diffusely coarsened echotexture, consistent with the clinical history of cirrhosis. There is a 7 mm hepatic cyst. The gallbladder contains echogenic nonshadowing foci within the neck, likely representing nonshadowing calculi versus tumefactive sludge. The common bile duct is minimally dilated measuring 7 mm. IMPRESSION: 1. 18 mm nonshadowing gallbladder calculus versus tumefactive sludge within the gallbladder neck. 2. Mild gallbladder distention, but no significant wall thickening 3. 7 mm common bile duct 4. Coarsened hepatic echotexture consistent with the clinical history of cirrhosis.
[2019-07-09] MEDS: MoRPHine SULFATE 4 MG/ML 1 ML CARP\\VIAL IV PRN ×3 (15:41→21:50)
--- NOTE | 2019-07-09 15:42 | Electrocardiogram Report ---
Test Reason : Blood Pressure : / mmHG Vent. Rate : 048 BPM Atrial Rate : 048 BPM P-R Int : 154 ms QRS Dur : 098 ms QT Int : 440 ms P-R-T Axes : 048 056 032 degrees QTc Int : 393 ms Sinus bradycardia Otherwise normal ECG When compared with ECG of 01-NOV-2016 17:38, No significant change was found Confirmed by Dilip Jones ([id number]) on 07/09/2019 3:42:33 PM Referred By: REFERRED SELF Confirmed By:Dilip Jones
--- NOTE | 2019-07-09 15:47 | Electrocardiogram Report ---
Test Reason : Blood Pressure : / mmHG Vent. Rate : 043 BPM Atrial Rate : 043 BPM P-R Int : 142 ms QRS Dur : 102 ms QT Int : 460 ms P-R-T Axes : 044 067 054 degrees QTc Int : 388 ms Marked sinus bradycardia Cannot rule out Inferior infarct , age undetermined Abnormal ECG When compared with ECG of 01-NOV-2016 17:38, No significant change was found Confirmed by Dilip Jones ([id number]) on 07/09/2019 3:46:45 PM Referred By: REFERRED SELF Confirmed By:Dilip Jones
[2019-07-09] MEDS: PIPERACILLIN/TAZOBACTAM 3.375 GM in DEXTROSE 5% 100 ML IV SCH ×2 (16:14→23:31)
[2019-07-09] MEDS: ursodioL 300 MG CAP PO SCH (21:26)
[2019-07-09] MEDS: nadoloL 40 MG TAB PO SCH (21:26)
[2019-07-09] MEDS: ACETAMINOPHEN 325 MG TAB PO PRN (23:35)
[2019-07-10] MEDS: MoRPHine SULFATE 4 MG/ML 1 ML CARP\\VIAL IV PRN ×4 (03:00→20:59)
[2019-07-10] MEDS: SODIUM CHLORIDE 0.9% 1000ML 1,000 ML IV SCH ×3 (03:04→18:37)
[2019-07-10 06:34] LABS: BUN Creatinine Ratio 9.6 (10-20); Creatinine Clr Calc Pharmacy 82.8 ml/min; Est GFR (African American) 94.5; Est GFR (Non-African American) 81.5; Potassium 3.6 mmol/L (3.5-5.1)
[2019-07-10 06:41] LABS: Albumin Globulin Ratio 0.8 (0.9-2); Bilirubin,Total 1.7 mg/dl (0.2-1)
[2019-07-10] MEDS: PIPERACILLIN/TAZOBACTAM 3.375 GM in DEXTROSE 5% 100 ML IV SCH ×3 (07:18→23:38)
[2019-07-10] MEDS: FOLIC ACID 1 MG TAB PO SCH (10:57)
[2019-07-10] MEDS: PANTOprazole 40 MG TAB PO SCH (10:57)
[2019-07-10] MEDS: ursodioL 300 MG CAP PO SCH ×2 (10:57→21:02)
--- NOTE | 2019-07-10 11:35 | Nuclear Medicine Report ---
NM hepatobiliary CLINICAL HISTORY: 43 years-old Male with abd pain. Acute right upper quadrant abdominal pain TECHNIQUE: Sequential anterior abdominal images were obtained through 60 minutes following the intra venous administration of 5.0 mCi of technetium-99m Choletec. A dose of IV morphine was given at 60 mi nutes. Imaging was then obtained sequentially for another 45 minutes. COMPARISON: Right upper quadrant abdominal ultrasound 07/09/2019, hepatobiliary scan 11/02/2016 FINDINGS: There is prompt, uniform accumulation of the tracer by the liver. There is normal filling of the int rahepatic ducts, common bile duct and normal excretion of the tracer into the duodenum. Mild to mode rate enterogastric reflux. Nonvisualization of the gallbladder at 60 minutes. IV morphine was then ad ministered to the patient. Imaging was then obtained through 105 minutes. Even with delayed imaging, the gallbladder was not visualized. IMPRESSION: 1. Nonvisualization of the gallbladder compatible with cystic duct obstruction. 2. No evidence of common bile duct obstruction. 3. Mild to moderate enterogastric reflux. ACT 112: Negative or not required by law. The above report was generated using voice recognition software. It may contain grammatical, syntax o r spelling errors. Electronically signed by: Dayday Fletcher M.D. 07/10/2019 11:34 AM
--- NOTE | 2019-07-10 14:10 | Surgery Progress Note ---
Date of Service July 10, 2019 Assessment & Plan (1) Abdominal pain: Pain has resolved White blood cell count remains normal LFTs show only a bilirubin elevation of 1.7 Discussed with gastroenterology and also transplant surgery Considering his meld score of 11 transplant surgery recommends not doing surgery unless it is a last resort. They feel that there are other measures that can be taken some of which using advanced endoscopy. They recommend transferring to their service should his pain recur. We will place him on a soft diet and continue to evaluate Subjective He denies pain this morning. He has no nausea or vomiting Physical Exam Gastrointestinal (Abdomen): Inspection/Auscultation: normal bowel sounds; abdomen not distended Percussion/Palpation: abdomen soft; abdomen nontender Results & Data Vital Signs (Past 12 Hours) Vital Signs Temp Pulse Resp BP Pulse Ox 07/10/19 07:20 37.5 C 75 16 118/66 96 Laboratory Results 07/10/19 Range/Units 05:46 Sodium 138 (136-145) mmol/L Potassium 3.6 (3.5-5.1) mmol/L Chloride 108 H (98-107) mmol/L Carbon Dioxide 26 (21-32) mmol/L Anion Gap 4.0 (3-11) BUN 11 (7-18) mg/dl Creatinine 1.09 (0.6-1.4) mg/dl Est Cr Clr Drug Dosing 82.8 ml/min Est GFR ( Amer) 94.5 Est GFR (Non-Af Amer) 81.5 BUN/Creatinine Ratio 9.6 L (10-20) Glucose 107 H (70-99) mg/dl Calcium 8.0 L (8.5-10.1) mg/dl Total Bilirubin 1.7 H D (0.2-1) mg/dl AST 15 (15-37) U/L ALT 19 (12-78) U/L Alkaline Phosphatase 46 (45-117) U/L Total Protein 7.0 D (6.4-8.2) gm/dl Albumin 3.0 L (3.4-5.0) gm/dl Globulin 4.0 (2.5-4.0) gm/dl Albumin/Globulin Ratio 0.8 L (0.9-2) Lipase 78 (73-393) U/L Diagnostic Findings NM hepatobiliary CLINICAL HISTORY: 43 years-old Male with abd pain. Acute right upper quadrant abdominal pain TECHNIQUE: Sequential anterior abdominal images were obtained through 60 minutes following the intravenous administration of 5.0 mCi of technetium-99m Choletec. A dose of IV morphine was given at 60 minutes. Imaging was then obtained sequentially for another 45 minutes. COMPARISON: Right upper quadrant abdominal ultrasound 07/09/2019, hepatobiliary scan 11/02/2016 FINDINGS: There is prompt, uniform accumulation of the tracer by the liver. There is normal filling of the intrahepatic ducts, common bile duct and normal excretion of the tracer into the duodenum. Mild to moderate enterogastric reflux. Nonvisualization of the gallbladder at 60 minutes. IV morphine was then administered to the patient. Imaging was then obtained through 105 minutes. Even with delayed imaging, the gallbladder was not visualized. IMPRESSION: 1. Nonvisualization of the gallbladder compatible with cystic duct obstruction. 2. No evidence of common bile duct obstruction. 3. Mild to moderate enterogastric reflux.
[2019-07-10] MEDS: ACETAMINOPHEN 325 MG TAB PO PRN ×2 (15:46→23:34)
--- NOTE | 2019-07-10 16:21 | Hospitalist Progress Note ---
Date of Service July 10, 2019 Assessment & Plan (1) Biliary colic: RUQ PAIN POSSIBLE CHOLECYSTITIS per RUPERT Hearn's notes: -Patient presenting from home with reports of right upper quadrant abdominal pain -History of gallstone pancreatitis in the past however elective cholecystectomy was deferred due to patient's underlying alcoholic cirrhosis -In the ED, patient is afebrile without leukocytosis, LFTs and lipase WNL -Gallbladder ultrasound showing 18 mm nonshadowing gallbladder calculus versus tumefactive sludge within the gallbladder neck and mild gallbladder distention, but no significant wall thickening 07/10/2019 HIDA scan: 1. Nonvisualization of the gallbladder compatible with cystic duct obstruction. 2. No evidence of common bile duct obstruction. 3. Mild to moderate enterogastric reflux. pain improved today tmax 38.2 t amna increaesd to 1.[address] Wright diet advanced today, if with persistent pain, recommend transfer [place] [facility] [place] continue IV Zosyn (2) Alcoholic cirrhosis of liver: RUQ PAIN POSSIBLE CHOLECYSTITIS -Has been abstinent from alcohol since 2016 -EGD 05/2018: Grade 2 esophageal varices s/p banding, portal hypertensive gastropathy -Hold Lasix and spironolactone while n.p.o. and receiving IVF - compensated (3) DVT prophylaxis: -SCDs, ambulate Admission and Anticipated Discharge Date Admission Date: July 09, 2019 Subjective ff up for possible cholecystitis seen sitting up in bed, more comfortable states he feels better today had low fat diet for lunch, tolerated well reports some burning in the epigastric region, but improving denies chills, chest pain, dyspnea (+) BM yesterday- normal no other symptoms Review of Systems Review of Systems: All systems reviewed & are unremarkable except as noted in HPI & below Physical Exam Physical Exam: General- oriented x 3, not in distress, speaks in sentences with no effort or accessory muscle use Eyes- anicteric Neck- no JVD Lungs- clear BS bilaterally, no rales/wheezing Heart- normal rate, regular rhythm; no murmurs Abdomen- normal bowel sounds, nondistended, soft, nontender Extremities- no pretibial edema, no calf tenderness Neuro- alert, oriented x 3; no gross focal neurologic deficits Skin- warm & dry Results & Data Results & Data ([facility]) Vital Signs (Past 12 Hours) Vital Signs Temp Pulse Resp BP Pulse Ox 07/10/19 15:22 38.2 C H 79 16 123/73 94 07/10/19 07:20 37.5 C 75 16 118/66 96 Laboratory Results Laboratory Results - last 24 hr 07/10/19 05:46 Sodium 138 Potassium 3.6 Chloride 108 H Carbon Dioxide 26 Anion Gap 4.0 BUN 11 Creatinine 1.09 Est Cr Clr Drug Dosing 82.8 Est GFR ( Amer) 94.5 Est GFR (Non-Af Amer) 81.5 BUN/Creatinine Ratio 9.6 L Glucose 107 H Calcium 8.0 L Total Bilirubin 1.7 H D AST 15 ALT 19 Alkaline Phosphatase 46 Total Protein 7.0 D Albumin 3.0 L Globulin 4.0 Albumin/Globulin Ratio 0.8 L Lipase 78
[2019-07-10] MEDS: nadoloL 40 MG TAB PO SCH (21:02)
[2019-07-11] MEDS: MoRPHine SULFATE 4 MG/ML 1 ML CARP\\VIAL IV PRN ×4 (00:17→18:24)
[2019-07-11] MEDS: SODIUM CHLORIDE 0.9% 1000ML 1,000 ML IV SCH ×3 (02:29→18:24)
[2019-07-11] MEDS: PIPERACILLIN/TAZOBACTAM 3.375 GM in DEXTROSE 5% 100 ML IV SCH ×2 (07:57→15:27)
[2019-07-11] MEDS: FOLIC ACID 1 MG TAB PO SCH (08:27)
[2019-07-11] MEDS: ursodioL 300 MG CAP PO SCH (08:27)
[2019-07-11] MEDS: PANTOprazole 40 MG TAB PO SCH (08:27)
[2019-07-11 11:57] LABS: Albumin Level 2.7 gm/dl (3.4-5.0); BUN Creatinine Ratio 9.9 (10-20); Bilirubin Direct 0.4 mg/dl (0-0.2); Calcium 7.7 mg/dl (8.5-10.1); Creatinine Clr Calc Pharmacy 88.5 ml/min; Est GFR (African American) 102.4; Est GFR (Non-African American) 88.4; Potassium 3.2 mmol/L (3.5-5.1)
[2019-07-11 12:00] LABS: Bilirubin,Total 1.4 mg/dl (0.2-1); Total Protein 6.8 gm/dl (6.4-8.2)
[2019-07-11 12:05] LABS: Hematocrit (blood only) 38.9 % (42-52); Hemoglobin 13.2 g/dL (14.0-18.0); Mean Corpuscular Hemoglobin 30.6 pg (25-34); Mean Corpuscular Hgb Conc 33.9 g/dL (32-36); Mean Platelet Volume 10.2 fL (7.4-10.4); Platelet Count 72 K/uL (130-400); RDW Coefficient of Variation 13.4 % (11.5-14.5); RDW Standard Deviation 44.3 fL (36.4-46.3); Red Blood Count 4.32 M/uL (4.7-6.1); White Blood Count 7.96 K/uL (4.8-10.8)
[2019-07-11 12:06] LABS: Basophils # (auto) 0.02 K/uL (0-0.2); Basophils % (auto) 0.3 %; Eosinophils # (auto) 0.05 K/uL (0-0.5); Eosinophils % (auto) 0.6 %; Immature Granulocytes # (auto) 0.02 K/uL (0.00-0.02); Immature Granulocytes % (auto) 0.3 %; Lymphocytes # (auto) 0.75 K/uL (1.2-3.4); Lymphocytes % (auto) 9.4 %; Monocytes # (auto) 1.01 K/uL (0.11-0.59); Monocytes % (auto) 12.7 %; Neutrophils # (auto) 6.11 K/uL (1.4-6.5); Neutrophils % (auto) 76.7 %; Platelet Estimate Decreased (Normal)
--- NOTE | 2019-07-11 12:16 | Surgery Progress Note ---
Date of Service July 11, 2019 Assessment & Plan (1) Biliary colic: Had minimal burning discomfort after eating yesterday but better today In review discussed situation with transplant surgery. Recommend that after discharge he should report immediately to the ER in [place] for further xavier luation should he continue to develop symptoms that persist Would not recommend surgical intervention at this time as per their recommendation. Subjective Had some mild burning discomfort in the epigastrium after eating last night but did better this morning Denies nausea and vomiting Denies right upper quadrant abdominal pain Physical Exam Gastrointestinal (Abdomen): Inspection/Auscultation: abdomen not distended Percussion/Palpation: + abdomen tender (Minimal right subcostal) and abdomen soft Results & Data Vital Signs (Past 12 Hours) Vital Signs Temp Pulse Resp BP Pulse Ox 07/11/19 08:29 37.5 C 74 18 128/76 95 Laboratory Results 07/11/19 07/11/19 Range/Units 11:23 11:23 WBC 7.96 (4.8-10.8) K/uL RBC 4.32 L (4.7-6.1) M/uL Hgb 13.2 L (14.0-18.0) g/dL Hct 38.9 L (42-52) % MCV 90.0 (80-100) fL MCH 30.6 (25-34) pg MCHC 33.9 (32-36) g/dL RDW Std Deviation 44.3 (36.4-46.3) fL RDW Coeff of Hang 13.4 (11.5-14.5) % Plt Count 72 L (130-400) K/uL MPV 10.2 (7.4-10.4) fL Immature Gran % (Auto) 0.3 % Neut % (Auto) 76.7 % Lymph % (Auto) 9.4 % [place] % (Auto) 12.7 % Eos % (Auto) 0.6 % Baso % (Auto) 0.3 % Immature Gran # (Auto) 0.02 (0.00-0.02) K/uL Neut # (Auto) 6.11 (1.4-6.5) K/uL Lymph # (Auto) 0.75 L (1.2-3.4) K/uL [place] # (Auto) 1.01 H (0.11-0.59) K/uL Eos # (Auto) 0.05 (0-0.5) K/uL Baso # (Auto) 0.02 (0-0.2) K/uL Platelet Estimate Decreased L (Normal) Sodium 135 L (136-145) mmol/L Potassium 3.2 L (3.5-5.1) mmol/L Chloride 106 (98-107) mmol/L Carbon Dioxide 24 (21-32) mmol/L Anion Gap 5.0 (3-11) BUN 10 (7-18) mg/dl Creatinine 1.02 (0.6-1.4) mg/dl Est Cr Clr Drug Dosing 88.5 ml/min Est GFR ( Amer) 102.4 Est GFR (Non-Af Amer) 88.4 BUN/Creatinine Ratio 9.9 L (10-20) Glucose 153 H (70-99) mg/dl Calcium 7.7 L (8.5-10.1) mg/dl Total Bilirubin 1.4 H (0.2-1) mg/dl Direct Bilirubin 0.4 H (0-0.2) mg/dl AST 17 (15-37) U/L ALT 16 (12-78) U/L Alkaline Phosphatase 38 L (45-117) U/L Total Protein 6.8 (6.4-8.2) gm/dl Albumin 2.7 L (3.4-5.0) gm/dl
--- NOTE | 2019-07-11 13:43 | Hospitalist Progress Note ---
Date of Service July 11, 2019 Assessment & Plan (1) Biliary colic: RUQ PAIN POSSIBLE CHOLECYSTITIS per RUPERT Hearn's notes: -Patient presenting from home with reports of right upper quadrant abdominal pain -History of gallstone pancreatitis in the past however elective cholecystectomy was deferred due to patient's underlying alcoholic cirrhosis -In the ED, patient is afebrile without leukocytosis, LFTs and lipase WNL -Gallbladder ultrasound showing 18 mm nonshadowing gallbladder calculus versus tumefactive sludge within the gallbladder neck and mild gallbladder distention, but no significant wall thickening - HIDA scan: 1. Nonvisualization of the gallbladder compatible with cystic duct obstruction. 2. No evidence of common bile duct obstruction. 3. Mild to moderate enterogastric reflux. pain initially improved while on NPO, with IV ZOsyn, but with advancement of diet, patient's RUQ returned tmax 38.3, WBC 7.9 t amna increaesd to 1.7 improved to 1.7, ast/aslt 1.4/0.4, alk phos 38 -- General Surgery- Dr. Wright followed the patient, patient is high risk for surgery in light of liver cirrhosis on 07/09, he discussed the case with Dr. Khan- [facility] [place] liver transplant service- recommend to transfer patient to [facility] for possible interventional procedure, if with worsening of symptoms on 07/10, patient's pain worsened, discussed with hospitalist Dr. Aiken, he accepted the patient for transfer discussed with patient, he is understanding, agreeable, comfortable with the plan of care (2) Alcoholic cirrhosis of liver: RUQ PAIN POSSIBLE CHOLECYSTITIS -Has been abstinent from alcohol since 2016 -EGD 05/2018: Grade 2 esophageal varices s/p banding, portal hypertensive gastropathy -Hold Lasix and spironolactone while n.p.o. and receiving IVF - compensated (3) Hypokalemia: mild, K 3.2 replaced with PO K monitor (4) DVT prophylaxis: -SCDs, ambulate Admission and Anticipated Discharge Date Admission Date: July 10, 2019 Subjective ff up for possible cholecystitis seen resting in bed, not in distress does report RUQ has recurred after eating some lunch- moderate, sharp/burning no nausea/vomiting no chest pain, dyspnea no other symptoms Review of Systems Review of Systems: All systems reviewed & are unremarkable except as noted in HPI & below Physical Exam Physical Exam: General- oriented x 3, not in distress, speaks in sentences with no effort or accessory muscle use Eyes- anicteric Neck- no JVD Lungs- clear breath sounds bilaterally no crackles/wheezing Heart- normal rate, regular rhythm; no murmurs Abdomen- normal bowel sounds, nondistended, soft, (+) RUQ tenderness Extremities- no pretibial edema, no calf tenderness Neuro- alert, oriented x 3; no gross focal neurologic deficits Skin- warm & dry Results & Data Results & Data ([facility]) Vital Signs (Past 12 Hours) Vital Signs Temp Pulse Resp BP Pulse Ox 07/11/19 08:29 37.5 C 74 18 128/76 95 Laboratory Results Laboratory Results - last 24 hr 07/11/19 07/11/19 11:23 11:23 WBC 7.96 RBC 4.32 L Hgb 13.2 L Hct 38.9 L MCV 90.0 MCH 30.6 MCHC 33.9 RDW Std Deviation 44.3 RDW Coeff of Hang 13.4 Plt Count 72 L MPV 10.2 Immature Gran % (Auto) 0.3 Neut % (Auto) 76.7 Lymph % (Auto) 9.4 [place] % (Auto) 12.7 Eos % (Auto) 0.6 Baso % (Auto) 0.3 Immature Gran # (Auto) 0.02 Neut # (Auto) 6.11 Lymph # (Auto) 0.75 L [place] # (Auto) 1.01 H Eos # (Auto) 0.05 Baso # (Auto) 0.02 Platelet Estimate Decreased L Sodium 135 L Potassium 3.2 L Chloride 106 Carbon Dioxide 24 Anion Gap 5.0 BUN 10 Creatinine 1.02 Est Cr Clr Drug Dosing 88.5 Est GFR ( Amer) 102.4 Est GFR (Non-Af Amer) 88.4 BUN/Creatinine Ratio 9.9 L Glucose 153 H Calcium 7.7 L Total Bilirubin 1.4 H Direct Bilirubin 0.4 H AST 17 ALT 16 Alkaline Phosphatase 38 L Total Protein 6.8 Albumin 2.7 L
--- NOTE | 2019-07-11 14:05 | Discharge Summary ---
Date of Service July 11, 2019 Admission HPI Per Admitting Provider 43-year-old male who presents the ED with right upper quadrant abdominal pain. Patient reports his symptoms began around 2 AM. Pain has been moderately severe and persistent. He reports some associated nausea however no vomiting. Reports normal bowel movements, no diarrhea. States he had a hamburger for dinner last night. Denies fevers and chills. No chest pain or shortness of breath. Denies lightheadedness, dizziness, diaphoresis, syncopal events. No urinary symptoms. Patient with history of gallstone pancreatitis in the past however elective cholecystectomy was deferred secondary to patient's underlying alcoholic cirrhosis. In the ED, patient is afebrile and there is no leukocytosis. LFTs and lipase WNL. RUQ US shows 18 mm nonshadowing gallbladder calculus versus tumefactive sludge within the gallbladder neck and mild gallbladder distention, but no significant wall thickening. Patient was given IV fentanyl. Admission Exam Per Admitting Provider Constitutional: WD/WN, vitals as above + ill appearing (Restless, appears to be in pain) Eyes: PERRL, conjunctivae normal, anicteric sclerae ENMT: external ear and nose normal, oropharynx normal Respiratory: normal respiratory effort, lungs clear to auscultation Cardiovascular: Rate/Rhythm: regular rate and regular rhythm Vessels: normal peripheral pulses Extremities: no edema Gastrointestinal (Abdomen): Inspection/Auscultation: normal bowel sounds Percussion/Palpation: + abdomen tender (RUQ) and abdomen soft; no hepatosplenomegaly Musculoskeletal: no cyanosis or clubbing, extremities motor strength 5/5 Skin: no rashes, warm and dry Neurologic: PERRL, EOMI, accommodation nl, no face palsy, no dysarthria Psychiatric: A+Ox3, euthymic affect Principal Diagnosis POSSIBLE ACUTE CHOLECYSTITIS WITH CHOLELITHIASIS/CHOLEDOCHOLITHIASIS Discharge Exam General- oriented x 3, not in distress, speaks in sentences with no effort or accessory muscle use Eyes- anicteric Neck- no JVD Lungs- clear breath sounds bilaterally no crackles/wheezing Heart- normal rate, regular rhythm; no murmurs Abdomen- normal bowel sounds, nondistended, soft, (+) RUQ tenderness Extremities- no pretibial edema, no calf tenderness Neuro- alert, oriented x 3; no gross focal neurologic deficits Skin- warm & dry Discharge Data Allergies Allergy/AdvReac Type Severity Reaction Status Date / Time aspirin AdvReac Unknown THINS Verified 07/09/19 06:35 BLOOD, NOSE BLEEDS Consultations 07/09/19 07:50 ED Decision to Admit Stat 07/09/19 09:44 Consult General Surgery Routine Ordered Studies 07/09/19 05:51 US gallbladder Urgent US gallbladder CLINICAL HISTORY: RUQ abd pain. Hx liver cirrhosis/chronic cholecyst COMPARISON STUDY: June 19, 2017 FINDINGS: The pancreas appears normal as visualized. The liver demonstrates a diffusely coarsened echotexture, consistent with the clinical history of cirrhosis. There is a 7 mm hepatic cyst. The gallbladder contains echogenic nonshadowing foci within the neck, likely representing nonshadowing calculi versus tumefactive sludge. The common bile duct is minimally dilated measuring 7 mm. IMPRESSION: 1. 18 mm nonshadowing gallbladder calculus versus tumefactive sludge within the gallbladder neck. 2. Mild gallbladder distention, but no significant wall thickening 3. 7 mm common bile duct 4. Coarsened hepatic echotexture consistent with the clinical history of cirr hosis. NM hepatobiliary CLINICAL HISTORY: 43 years-old Male with abd pain. Acute right upper quadrant abdominal pain TECHNIQUE: Sequential anterior abdominal images were obtained through 60 minutes following the intravenous administration of 5.0 mCi of technetium-99m Choletec. A dose of IV morphine was given at 60 minutes. Imaging was then obtained sequentially for another 45 minutes. COMPARISON: Right upper quadrant abdominal ultrasound 07/09/2019, hepatobiliary scan 11/02/2016 FINDINGS: There is prompt, uniform accumulation of the tracer by the liver. There is normal filling of the intrahepatic ducts, common bile duct and normal excretion of the tracer into the duodenum. Mild to moderate enterogastric reflux. Nonvisualization of the gallbladder at 60 minutes. IV morphine was then administered to the patient. Imaging was then obtained through 105 minutes. Even with delayed imaging, the gallbladder was not visualized. IMPRESSION: 1. Nonvisualization of the gallbladder compatible with cystic duct obstruction. 2. No evidence of common bile duct obstruction. 3. Mild to moderate enterogastric reflux. Hospital Course (1) Biliary colic: RUQ PAIN POSSIBLE CHOLECYSTITIS, WITH CHOLELITHIASIS VS. CHOLEDOCHOLITHIASIS per RUPERT Hearn's notes: -Patient presenting from home with reports of right upper quadrant abdominal pain -History of gallstone pancreatitis in the past however elective cholecystectomy was deferred due to patient's underlying alcoholic cirrhosis -In the ED, patient is afebrile without leukocytosis, LFTs and lipase WNL -Gallbladder ultrasound showing 18 mm nonshadowing gallbladder calculus versus tumefactive sludge within the gallbladder neck and mild gallbladder distention, but no significant wall thickening - HIDA scan: 1. Nonvisualization of the gallbladder compatible with cystic duct obstruction. 2. No evidence of common bile duct obstruction. 3. Mild to moderate enterogastric reflux. pain initially improved while on NPO, with IV ZOsyn, but with advancement of diet, patient's RUQ returned tmax 38.3, WBC 7.9 t amna increaesd to 1.7 improved to 1.7, ast/aslt 1.4/0.4, alk phos 38 -- General Surgery- Dr. Wright followed the patient, patient is high risk for surgery in light of liver cirrhosis on 07/09, he discussed the case with Dr. Khan- [facility] [place]- recommend to transfer patient to [facility] for possible interventional procedure, if with worsening of symptoms on 07/10, patient's pain worsened, discussed with hospitalist Dr. Aiken, he accepted the patient for transfer discussed with patient, he is understanding, agreeable, comfortable with the plan of care (2) Alcoholic cirrhosis of liver: -Has been abstinent from alcohol since 201 -EGD 05/2018: Grade 2 esophageal varices s/p banding, portal hypertensive gastropathy -Hold Lasix and spironolactone while n.p.o. and receiving IVF - compensated (3) Hypokalemia: mild, K 3.2 replaced with PO K monitor (4) DVT prophylaxis: -SCDs, ambulate Total Time Total Time Spent Total Time Spent (In Minutes): 60 MINUTES Discharge Plan Discharge Items Patient Disposition: Transfer Acute Care Hospital Reason For Visit: ABDOMINAL PAIN Discharge Diagnosis: POSSIBLE CHOLECYSTIS WITH CHOLELITHIASIS/CHOLEDOCHOLITHIASIS Activity: Resume your previous activity Non-emergency contact: Primary Care Provider Call non-emergency contact if: you have any medication questions, your symptoms worsen and you have a fever Follow-up/Referrals: Michelle Borrego DO [Primary Care Provider] - Diet: Other - See Diet Comment Diet Comment: NPO EXCEPT MEDS, SIPS OF WATER Addtl Attending Provider Instructions: PLEASE REFER TO [facility] DISCHARGE SUMMARY FOR FULL DETAILS. Pending Studies at Discharge: Yes Studies:: PLEASE REFER TO [facility] DISCHARGE SUMMARY FOR FULL DETAILS. Stand-Alone Forms: My [facility] Skilled Items Patient informed of condition?: Yes DNR: No Discharge Level of Care: Other Communicable Disease: No Discharge Prognosis: Other Lines: Peripheral IV Urinary Catheter: No Medications and DC Order Prescriptions: Continued buspirone 5 mg Tablet 5 mg PO BID RF: 0 potassium chloride 10 mEq Tablet Extended Release 10 meq PO QAM RF: 0 nadolol 20 mg Tablet 20 mg PO HS RF: 0 ursodiol 300 mg Capsule 300 mg PO BID RF: 0 folic acid 1 mg Tablet 1 mg PO QAM RF: 0 zolpidem 5 mg Tablet 5 mg PO HS PRN (Reason: Sleep) RF: 0 pantoprazole 20 mg tablet,delayed release (DR/EC) 20 mg PO DAILY RF: 0 Discontinued spironolactone 25 mg Tablet 25 mg PO QAM RF: 0 furosemide 20 mg Tablet 20 mg PO QAM RF: 0 Discharge Orders: Discharge Order (Routine); Ordered 07/11/19 Ordered By: Milton Montero Admission Data Admit Date/Time: 07/10/19 16:57 Attending Provider: Milton Montero Admit Provider: Milton Montero Primary Care Provider: Michelle Borrego Other Providers: Reinaldo Wright ; Milton Montero
[2019-07-11] MEDS ORDERED: POTASSIUM CHLORIDE 20 MEQ TABCR PO ONE (14:30)
[2019-07-11] MEDS: ACETAMINOPHEN 325 MG TAB PO PRN (15:34)
== END 2019-07-11 19:59 | disposition short-term general hospital (02) | DRG 446 ==
LOC: 3E 05:19 → ED 05:19 → 3E 08:52

== ENCOUNTER 2022-11-20 12:18 | Inpatient (IN) ==
[2022-11-20] MEDS ORDERED: SODIUM CHLORIDE 0.9% 1000ML 1,000 ML IV ONE (13:06)
[2022-11-20 13:25] LABS: Influenza A virus by PCR Negative (Neg); Influenza B virus by PCR Negative (Neg); RSV by PCR Negative (Neg); SARS CoV2 RNA(COVID-19) Ceph NEGATIVE (Negative)
[2022-11-20] MEDS ORDERED: MULTI-VITAMIN INFUSION 10 ML, THIAMINE HCL 100 MG, FOLIC ACID 1 MG in SODIUM CHLORIDE 0... IV ONE (13:41)
[2022-11-20] MEDS ORDERED: LORazepam 2 MG/1 ML VIAL IV STA ×3 (13:41→20:05)
[2022-11-20] MEDS ORDERED: ONDANSETRON INJ 2 MG/ML 2 ML VIAL IV STA (13:44)
[2022-11-20] MEDS ORDERED: FAMOTIDINE 20MG IV PUSH 20 MG/5 ML SYR IV STA (13:44)
[2022-11-20 13:46] LABS: Hematocrit (blood only) 49.7 % (42.0-52.0); Hemoglobin 17.3 g/dl (14.0-18.0); Mean Corpuscular Hemoglobin 33.5 pg (25.0-34.0); Mean Corpuscular Hgb Conc 34.8 g/dL (32.0-36.0); Mean Corpuscular Volume 96.3 fL (80.0-100.0); Mean Platelet Volume 9.9 fL (9.4-12.4); Platelet Count 141 K/uL (130-400); RDW Standard Deviation 45.9 fL (36.4-46.3); Red Blood Count 5.16 M/uL (4.70-6.10); White Blood Count 6.44 K/ul (4.8-10.8)
[2022-11-20] MEDS ORDERED: THIAMINE HCL 200 MG in SODIUM CHLORIDE 0.9% 50 ML IV STA (13:47)
--- NOTE | 2022-11-20 13:55 | XRay Report ---
XR chest 1V portable HISTORY: 47 years-old Male stroke alert acute stroke like symptoms COMPARISON: 11/14/2022 TECHNIQUE: AP view of the chest FINDINGS: Cardiac silhouette is enlarged. There is a new right infrahilar opacity favoring atelectasis. No pneu mothorax, pleural effusion or airspace consolidation. Bones appear grossly intact. IMPRESSION: Mild right infrahilar atelectasis. ACT 112: Negative or not required by law. The above report was generated using voice recognition software. It may contain grammatical, syntax o r spelling errors. Electronically signed by: Jhonny Fletcher M.D. 11/20/2022 1:54 PM
[2022-11-20 14:00] LABS: Albumin Level 4.3 gm/dl (3.4-5.0); Bilirubin,Total 1.2 mg/dl (0.2-1.0); Calcium 8.8 mg/dl (8.6-10.3); Magnesium 1.6 mg/dl (1.7-2.4); Potassium 3.9 mmol/L (3.5-5.1)
--- NOTE | 2022-11-20 14:05 | Emergency Department Note ---
Impression & Plan Alcoholic cirrhosis of liver, Alcohol withdrawal, Hypomagnesemia, Paresthesia, Transaminitis ED Provider Note NAME: ANDREA ADAME AGE: 47 SEX: M ARRIVES VIA: Walk-In INFORMANT: Patient ED PROVIDER(S): Cristiano Rai MD CHIEF COMPLAINT: Numbness and tingling, alcohol withdrawal PLAN: Disposition: Admit MEDICAL DECISION MAKING: The patient is a pleasant 47-year-old gentleman with a past medical history of alcohol dependence/abuse, history of alcoholic cirrhosis of the liver, history of esophageal varices who presents to the emergency department via walk-in for evaluation of symptoms of feeling unwell and tremulous where he feels he is having withdrawal. He reports that around 10 AM he also noticed that he felt numbness and tingling in bilateral upper and lower extremities and the right side of his face. He denies any extremity weakness or trouble speaking. He denies any headache he reports he resumed drinking alcohol a couple of months ago and recently started to taper back his drinking on his own after reporting he would drink approximately 8 shots daily. He reports developing mild cough over the past week as well with associated fever. He denies any nausea, vomiting or diarrhea. He denies any chest pain. On my evaluation the patient is uncomfortable no acute distress, afebrile stable vital signs. Appears clinically dry. He is visibly tremulous. He has no focal logic deficits. EKG without overt acute ischemia. CXR with suspected right infrahilar atelectasis. WBC, H/H and platelets within normal limits. Chemistry with bicarbonate of 21 within normal limits. Anion gap is 16 which may reflect dehydration and poor oral intake. Magnesium 1.6 with repletion provided. Electrolytes otherwise unremarkable. Total bilirubin 1.2 and AST and ALT 80 and 77, respectively with normal alk phos, slightly increased but similar to recent values. Procalcitonin is not elevated. TSH within normal limits. Alcohol elevated at 41. Lyme s creen was negative. COVID-19, influenza and RSV PCR's were negative. CT of the head CT of the head and neck were negative for acute abnormalities. CT of the chest demonstrates bilateral axillary lymphadenopathy and is nonspecific. Otherwise CT negative for PE. Given the patient's suspected alcohol withdrawal he agrees with plan for admission for further management. Patient was treated with IV fluid hydration including banana bag as well as IV thiamine and Ativan. AWSS on going. Case was discussed with Mónica Wiley PAC, with Martín Diaz hospitalist who will evaluate the patient for admission. Further management per admitting team. Triage Nursing notes reviewed and agree them. Prior/outside medical records reviewed Vital Signs: reviewed Differential diagnosis: Infection, dehydration, metabolic abnormality, hypo/hyperglycemia, electrolyte disturbance, anemia, hypoxia, cardiac sources, intracerebral event, toxicologic, neurologic, as well as other pathologies. ER treatment provided: See below. Diagnostics interpreted by me: ECG: Normal sinus rhythm, 60 bpm, no ectopy, T wave abnormality, no overt ST elevation or depression, QTc 440, QRS 92 Cardiac Monitoring: An order for continuous cardiac monitoring was placed and demonstrated Normal sinus rhythm, 60 bpm, no ectopy. Laboratory studies: See below Imaging studies: See below Consultation(s): Case was discussed with Mónica Wiley PAC, with Martín Diaz hospitalist who will evaluate the patient for admission. HPI: The patient is a pleasant 47-year-old gentleman with a past medical history of alcohol dependence/abuse, history of alcoholic cirrhosis of the liver, history of esophageal varices who presents to the emergency department via walk- in for evaluation of symptoms of feeling unwell and tremulous where he feels he is having withdrawal. He reports that around 10 AM he also noticed that he felt numbness and tingling in bilateral upper and lower extremities and the right side of his face. He denies any extremity weakness or trouble speaking. He denies any headache he reports he resumed drinking alcohol a couple of months ago and recently started to taper back his drinking on his own after reporting he would drink approximately 8 shots daily. He reports developing mild cough over the past week as well with associated fever. He denies any nausea, vomiting or diarrhea. He denies any chest pain. ROS: See above HPI for pertinent positives & negatives. A total of 10 systems reviewed and were otherwise negative. VITALS:See Below PHYSICAL EXAMINATION: GENERAL: Awake, alert, uncomfortable-appearing, in no distress HENT: Normocephalic, atraumatic. Oropharynx dry mucous membrane. EYES: Normal conjunctiva. Sclera non-icteric. NECK: Supple. No nuchal rigidity. FROM. No JVD. RESPIRATORY: Clear to auscultation. CARDIAC: Regular rate, normal rhythm. Extremities warm and well perfused. Pulses equal. ABDOMEN: Soft, non-distended. No tenderness to palpation. No rebound or guarding. No masses. RECTAL: Deferred. MUSCULOSKELETAL: Chest examination reveals no tenderness. The back is symmetrical on inspection without obvious abnormality. There is no CVA tenderness to palpation. No joint edema. LOWER EXTREMITIES: Calves are equal size bilaterally and non-tender. No edema. No discoloration. NEURO: Cranial nerves II-XII grossly intact. Visibly tremulous. Otherwise 5/5 strength and SILT x 4 extremities. Intact [id number] and alternating problems with underlying tremor. SKIN: No rash or jaundice noted. Cristiano Rai MD Past Med/Surg History Medical History Alcoholic cirrhosis of liver Esophageal varices History of alcohol abuse History of macrocytic anemia Portal hypertension Surgical History History of esophagogastroduodenoscopy (EGD) Including procedures for esophageal varices banding History of tonsillectomy Family History Mother Diabetes Father Prostate cancer Other No family history of adverse response to anesthesia Social History Smoking Status: Never smoker Second Hand Exposure: No; Do You Dip or Chew Tobacco: Yes (1 can every week); Hx Alcohol Use: No Hx Substance Use: No Preferred Language: Greenlandic Communication Ability: Effective Wire Stitcher Operator Required: No Beliefs That Will Affect Care: None Current Living Situation: Parent Current Living Situation Comment: lives with parents Feels Safe at Home: Yes Assistive Devices: None Allergies Allergies Allergy/AdvReac Type Severity Reaction Status Date / Time aspirin AdvReac Unknown THINS Verified 11/20/22 15:48 BLOOD, NOSE BLEEDS Home Meds Home Medications Medication Instructions Recorded Confirmed buspirone 5 mg tablet 5 mg PO BID 06/10/18 11/20/22 folic acid 1 mg tablet 1 mg PO QAM 06/10/18 11/20/22 nadolol 20 mg tablet 20 mg PO HS 06/10/18 11/20/22 potassium chloride 10 mEq 10 meq PO QAM 06/10/18 11/20/22 tablet,extended release ursodiol 300 mg capsule 300 mg PO BID 06/10/18 11/20/22 zolpidem 5 mg tablet (Ambien) 5 mg PO HS PRN Sleep 06/10/18 11/20/22 pantoprazole 20 mg tablet,delayed 20 mg PO QAM 07/09/19 11/20/22 release furosemide 20 mg tablet 20 mg PO QAM 11/14/22 11/20/22 spironolactone 25 mg tablet 25 mg PO QAM 11/14/22 11/20/22 Results & Data (ED) Vital Signs Vital Signs - 24 hr 11/20/22 12:23 11/20/22 13:11 11/20/22 14:18 Temperature 36.8 C 36.8 C Temperature Source Temporal Artery Scan Oral Pulse Rate 75 71 Pulse Rate [Apical] 75 Pulse Rhythm Pulse Rhythm [Apical] Regular Pulse Strength [Apical] Normal Respiratory Rate 19 19 Respiratory Effort / Characteristics Non-Labored Non-Labored Spontaneous Respiratory Depth Normal Blood Pressure 146/87 H Blood Pressure [Right Arm] 127/89 Blood Pressure Mean 106 Blood Pressure Mean [Right Arm] 101 Pulse Oximetry 95 96 Oxygen Delivery Method Room Air Room Air Sepsis Recent Fever Within 48 Hours Yes Sepsis New/Unexplained Change in Mental Status N/A Sepsis Action Taken by Nursing No Action Required 11/20/22 15:07 11/20/22 16:00 11/20/22 18:00 Temperature Temperature Source Pulse Rate 70 Pulse Rate [Apical] 75 63 Pulse Rhythm Regular Pulse Rhythm [Apical] Regular Pulse Strength [Apical] Normal Respiratory Rate 19 18 17 Respiratory Effort / Characteristics Non-Labored Spontaneous Non-Labored Spontaneous Respiratory Depth Normal Normal Blood Pressure Blood Pressure [Right Arm] 159/100 H 126/72 Blood Pressure Mean Blood Pressure Mean [Right Arm] 119 90 Pulse Oximetry 96 94 96 Oxygen Delivery Method Room Air Room Air Sepsis Recent Fever Within 48 Hours Sepsis New/Unexplained Change in Mental Status Sepsis Action Taken by Nursing 11/20/22 18:34 Temperature Temperature Source Pulse Rate 61 Pulse Rate [Apical] Pulse Rhythm Pulse Rhythm [Apical] Pulse Strength [Apical] Respiratory Rate Respiratory Effort / Characteristics Respiratory Depth Blood Pressure Blood Pressure [Right Arm] Blood Pressure Mean Blood Pressure Mean [Right Arm] Pulse Oximetry Oxygen Delivery Method Sepsis Recent Fever Within 48 Hours Sepsis New/Unexplained Change in Mental Status Sepsis Action Taken by Nursing Laboratory Data Attestation: I reviewed the patient's lab results. 11/20/22 12:53 11/20/22 12:53 Lab Results 11/20/22 11/20/22 11/20/22 Range/Units 12:28 12:53 12:53 WBC 6.44 (4.8-10.8) K/ul RBC 5.16 (4.70-6.10) M/uL Hgb 17.3 (14.0-18.0) g/dl Hct 49.7 (42.0-52.0) % MCV 96.3 (80.0-100.0) fL MCH 33.5 (25.0-34.0) pg MCHC 34.8 (32.0-36.0) g/dL RDW Std Deviation 45.9 (36.4-46.3) fL RDW Coeff of Hang 13.0 (11.5-14.5) % Plt Count 141 (130-400) K/uL MPV 9.9 (9.4-12.4) fL PT (9.0-12.0) Seconds INR (0.9-1.1) APTT (21.0-31.0) Seconds PTT Ratio Sodium 141 (136-145) mmol/L Potassium 3.9 (3.5-5.1) mmol/L Chloride 104 (98-107) mmol/L Carbon Dioxide 21 (21-32) mmol/L Anion Gap 16 H (3-11) BUN 8 (6-23) mg/dl Creatinine 0.78 (0.6-1.4) mg/dl Est Cr Clr Drug Dosing 121.0 ml/min Est GFR ( Amer) 122.8 ml/min Est GFR (Non-Af Amer) 106.0 ml/min BUN/Creatinine Ratio 10.3 (10-20) Glucose 129 H (70-99(Fasting)) mg/dl Calcium 8.8 (8.6-10.3) mg/dl Phosphorus 3.1 (2.5-4.9) mg/dl Magnesium 1.6 L (1.7-2.4) mg/dl Total Bilirubin 1.2 H (0.2-1.0) mg/dl Direct Bilirubin (0-0.2) mg/dl AST 80 H (13-39) U/L ALT 77 H (7-52) U/L Alkaline Phosphatase 50 (34-104) U/L Total Protein 8.3 (6.0-8.3) gm/dl Albumin 4.3 (3.4-5.0) gm/dl Globulin 4.0 (2.5-4.0) gm/dl Albumin/Globulin Ratio 1.1 (0.9-2) Procalcitonin (0-0.5) ng/ml TSH (0.300-4.500) uIu/ml Ethyl Alcohol mg/dL (<10.0) mg/dl Lyme Disease IgG Ab (Negative) Lyme Disease IgM Ab (Negative) SARS-CoV-2 (PCR) NEGATIVE (Negative) Influenza Type A (PCR) Negative (Neg) Influenza Type B (PCR) Negative (Neg) RSV (RT-PCR) Negative (Neg) 11/20/22 11/20/22 11/20/22 Range/Units 12:53 12:53 14:07 WBC (4.8-10.8) K/ul RBC (4.70-6.10) M/uL Hgb (14.0-18.0) g/dl Hct (42.0-52.0) % MCV (80.0-100.0) fL MCH (25.0-34.0) pg MCHC (32.0-36.0) g/dL RDW Std Deviation (36.4-46.3) fL RDW Coeff of Hang (11.5-14.5) % Plt Count (130-400) K/uL MPV (9.4-12.4) fL PT 13.0 H (9.0-12.0) Seconds INR 1.2 H (0.9-1.1) APTT 28.7 (21.0-31.0) Seconds PTT Ratio 1.0 Sodium (136-145) mmol/L Potassium (3.5-5.1) mmol/L Chloride (98-107) mmol/L Carbon Dioxide (21-32) mmol/L Anion Gap (3-11) BUN (6-23) mg/dl Creatinine (0.6-1.4) mg/dl Est Cr Clr Drug Dosing ml/min Est GFR ( Amer) ml/min Est GFR (Non-Af Amer) ml/min BUN/Creatinine Ratio (10-20) Glucose (70-99(Fasting)) mg/dl Calcium (8.6-10.3) mg/dl Phosphorus (2.5-4.9) mg/dl Magnesium (1.7-2.4) mg/dl Total Bilirubin (0.2-1.0) mg/dl Direct Bilirubin (0-0.2) mg/dl AST (13-39) U/L ALT (7-52) U/L Alkaline Phosphatase (34-104) U/L Total Protein (6.0-8.3) gm/dl Albumin (3.4-5.0) gm/dl Globulin (2.5-4.0) gm/dl Albumin/Globulin Ratio (0.9-2) Procalcitonin (0-0.5) ng/ml TSH 1.701 (0.300-4.500) uIu/ml Ethyl Alcohol mg/dL (<10.0) mg/dl Lyme Disease IgG Ab Negative (Negative) Lyme Disease IgM Ab Negative (Negative) SARS-CoV-2 (PCR) (Negative) Influenza Type A (PCR) (Neg) Influenza Type B (PCR) (Neg) RSV (RT-PCR) (Neg) 11/20/22 11/20/22 11/20/22 Range/Units 14:08 14:08 14:08 WBC (4.8-10.8) K/ul RBC (4.70-6.10) M/uL Hgb (14.0-18.0) g/dl Hct (42.0-52.0) % MCV (80.0-100.0) fL MCH (25.0-34.0) pg MCHC (32.0-36.0) g/dL RDW Std Deviation (36.4-46.3) fL RDW Coeff of Hang (11.5-14.5) % Plt Count (130-400) K/uL MPV (9.4-12.4) fL PT (9.0-12.0) Seconds INR (0.9-1.1) APTT (21.0-31.0) Seconds PTT Ratio Sodium (136-145) mmol/L Potassium (3.5-5.1) mmol/L Chloride (98-107) mmol/L Carbon Dioxide (21-32) mmol/L Anion Gap (3-11) BUN (6-23) mg/dl Creatinine (0.6-1.4) mg/dl Est Cr Clr Drug Dosing ml/min Est GFR ( Amer) ml/min Est GFR (Non-Af Amer) ml/min BUN/Creatinine Ratio (10-20) Glucose (70-99(Fasting)) mg/dl Calcium (8.6-10.3) mg/dl Phosphorus (2.5-4.9) mg/dl Magnesium (1.7-2.4) mg/dl Total Bilirubin (0.2-1.0) mg/dl Direct Bilirubin 0.2 (0-0.2) mg/dl AST (13-39) U/L ALT (7-52) U/L Alkaline Phosphatase (34-104) U/L Total Protein (6.0-8.3) gm/dl Albumin (3.4-5.0) gm/dl Globulin (2.5-4.0) gm/dl Albumin/Globulin Ratio (0.9-2) Procalcitonin < 0.05 (0-0.5) ng/ml TSH (0.300-4.500) uIu/ml Ethyl Alcohol mg/dL 41.1 H (<10.0) mg/dl Lyme Disease IgG Ab (Negative) Lyme Disease IgM Ab (Negative) SARS-CoV-2 (PCR) (Negative) Influenza Type A (PCR) (Neg) Influenza Type B (PCR) (Neg) RSV (RT-PCR) (Neg) Administered Medications Discontinued Medications Sodium Chloride (Nss 1000ml) 1,000 mls @ 999 mls/hr IV .Q1H1M ONE Stop: 11/20/22 14:06 Last Infusion: 11/20/22 14:40 Dose: 0 mls/hr Documented By: Admin: 11/20/22 13:36 Dose: 999 mls/hr Documented By: ABEBA Multivitamins 10 ml/ Thiamine HCl 100 mg/ Folic Acid 1 mg/Sodium Chloride 1,0 11.2 mls @ 500 mls/hr IV .Q2H2M ONE Stop: 11/20/22 15:42 Last Infusion: 11/20/22 17:12 Dose: 0 mls/hr Documented By: Admin: 11/20/22 14:58 Dose: 500 mls/hr Documented By: ABEBA Famotidine (Pepcid 20mg Iv Push) 20 mg in 5 mls @ 2.5 mls/min IV NOW STA Stop: 11/20/22 13:45 Last Admin: 11/20/22 14:06 Dose: 2.5 mls/min Documented By: ABEBA Thiamine HCl 200 mg/ Sodium (Chloride) 52 mls @ 210 mls/hr IV NOW STA Stop: 11/20/22 14:01 Last Infusion: 11/20/22 15:38 Dose: 0 mls/hr Documented By: Admin: 11/20/22 14:56 Dose: 210 mls/hr Documented By: ABEBA Magnesium Sulfate/Dextrose (Magnesium Sulfate / D5w) 1 gm in 100 mls @ 100 mls/hr IV Q1H LANDRY Stop: 11/20/22 18:08 Last Infusion: 11/20/22 19:31 Dose: 0 mls/hr Documented By: Admin: 11/20/22 18:20 Dose: 100 mls/hr Documented By: Infusion: 11/20/22 18:15 Dose: 100 mls/hr Documented By: Admin: 11/20/22 17:15 Dose: 100 mls/hr Documented By: ABEBA Ioversol (Ioversol 350 Mg 125ml Prefilled Syringe) 118 ml IV ONCE ONE Stop: 11/20/22 14:44 Last Admin: 11/20/22 14:43 Dose: 118 ml Documented By: BORA Lorazepam (Lorazepam 2 Mg/1 Ml Vial) 2 mg IV NOW STA Stop: 11/20/22 13:42 Last Admin: 11/20/22 14:06 Dose: 2 mg Documented By: ABEBA Lorazepam (Lorazepam 2 Mg/1 Ml Vial) 1 mg IV NOW STA Stop: 11/20/22 17:40 Last Admin: 11/20/22 18:02 Dose: 1 mg Documented By: ABEBA Ondansetron HCl (Ondansetron Inj 2 Mg/Ml 2 Ml Vial) 4 mg IV NOW STA Stop: 11/20/22 13:45 Last Admin: 11/20/22 14:06 Dose: 4 mg Documented By: ABEBA Imaging Data Radiologist's Impression: Chest X-Ray 11/20/22 12:30 XR chest 1V portable HISTORY: 47 years-old Male stroke alert acute stroke like symptoms COMPARISON: 11/14/2022 TECHNIQUE: AP view of the chest FINDINGS: Cardiac silhouette is enlarged. There is a new right infrahilar opacity favoring atelectasis. No pneumothorax, pleural effusion or airspace consolidation. Bones appear grossly intact. IMPRESSION: Mild right infrahilar atelectasis. ACT 112: Negative or not required by law. The above report was generated using voice recognition software. It may contain grammatical, syntax or spelling errors. Electronically signed by: Jhonny Fletcher M.D. 11/20/2022 1:[address] 11/20/22 12:30 CT angio neck with con, CT angio head w con, CT head/brain wo con CLINICAL HISTORY: R face, bilateral arm numbness TECHNIQUE: Contiguous axial CT images of the head were acquired from the base of the skull to the vertex without intravenous contrast administration. CT angiography of the head and neck was performed following intravenous administration of iodinated contrast. Coronal and sagittal MIPS were obtained from the axial data set and were submitted for review. Automated dose lowering techniques and/or adjustment according to patient size were utilized for this examination. All measurements were calculated based on NASCET criteria. CT DOSE: 1724.18 mGy.cm Comparison: None available at the time of this dictation. FINDINGS: CT head: There is no acute intracranial hemorrhage or evidence of acute territorial infarction. No shift of the midline structures, mass effect, or extra-axial abnormalities are shown. Lungs and soft tissues are unremarkable. CTA Neck: A 3 vessel aortic arch is shown. There is no significant atheroscle rotic plaque in the aortic arch or the origins of the innominate, left common carotid, and left subclavian arteries. The common carotid, external carotid, cervical segments of the internal carotid arteries, and the cervical segments of the vertebral arteries are patent without hemodynamically significant stenosis. The left vertebral artery is dominant. CTA Head: The anterior and posterior cerebral circulations are patent. origin of the left posterior cerebral artery is seen. IMPRESSION: 1. No acute intracranial hemorrhage, evidence of acute territorial infarction, or other acute intracranial disease process. 2. No occlusion, hemodynamically significant stenosis, or dissection in the major cervical arteries. 3. No occlusion, hemodynamically significant stenosis, aneurysm, dissection, or arteriovenous malformation in the major intracranial arteries. Assessment of stenosis of the internal carotid arteries is based on NASCET criteria. ACT 112: Negative or not required by law. Electronically signed by: Andrea Haney M.D. 11/20/2022 3:08 PM Head CTA 11/20/22 13:06 CT angio neck with con, CT angio head w con, CT head/brain wo con CLINICAL HISTORY: R face, bilateral arm numbness TECHNIQUE: Contiguous axial CT images of the head were acquired from the base of the skull to the vertex without intravenous contrast administration. CT angiography of the head and neck was performed following intravenous administration of iodinated contrast. Coronal and sagittal MIPS were obtained from the axial data set and were submitted for review. Automated dose lowering techniques and/or adjustment according to patient size were utilized for this examination. All measurements were calculated based on NASCET criteria. CT DOSE: 1724.18 mGy.cm Comparison: None available at the time of this dictation. FINDINGS: CT head: There is no acute intracranial hemorrhage or evidence of acute territorial infarction. No shift of the midline structures, mass effect, or extra-axial abnormalities are shown. Lungs and soft tissues are unremarkable. CTA Neck: A 3 vessel aortic arch is shown. There is no significant atherosclerotic plaque in the aortic arch or the origins of the innominate, left common carotid, and left subclavian arteries. The common carotid, external carotid, cervical segments of the internal carotid arteries, and the cervical segments of the vertebral arteries are patent without hemodynamically significant stenosis. The left vertebral artery is dominant. CTA Head: The anterior and posterior cerebral circulations are patent. origin of the left posterior cerebral artery is seen. IMPRESSION: 1. No acute intracranial hemorrhage, evidence of acute territorial infarction, or other acute intracranial disease process. 2. No occlusion, hemodynamically significant stenosis, or dissection in the major cervical arteries. 3. No occlusion, hemodynamically significant stenosis, aneurysm, dissection, or arteriovenous malformation in the major intracranial arteries. Assessment of stenosis of the internal carotid arteries is based on NASCET criteria. ACT 112: Negative or not required by law. Electronically signed by: Andrea Haney M.D. 11/20/2022 3:08 PM Neck CTA 11/20/22 13:06 CT angio neck with con, CT angio head w con, CT head/brain wo con CLINICAL HISTORY: R face, bilateral arm numbness TECHNIQUE: Contiguous axial CT images of the head were acquired from the base of the skull to the vertex without intravenous contrast administration. CT angiography of the head and neck was performed following intravenous administration of iodinated contrast. Coronal and sagittal MIPS were obtained from the axial data set and were submitted for review. Automated dose lowering techniques and/or adjustment according to patient size were utilized for this examination. All measurements were calculated based on NASCET criteria. CT DOSE: 1724.18 mGy.cm Comparison: None available at the time of this dictation. FINDINGS: CT head: There is no acute intracranial hemorrhage or evidence of acute territorial infarction. No shift of the midline structures, mass effect, or extra-axial abnormalities are shown. Lungs and soft tissues are unremarkable. CTA Neck: A 3 vessel aortic arch is shown. There is no significant atherosclerotic plaque in the aortic arch or the origins of the innominate, left common carotid, and left subclavian arteries. The common carotid, external carotid, cervical segments of the internal carotid arteries, and the cervical segments of the vertebral arteries are patent without hemodynamically significant stenosis. The left vertebral artery is dominant. CTA Head: The anterior and posterior cerebral circulations are patent. origin of the left posterior cerebral artery is seen. IMPRESSION: 1. No acute intracranial hemorrhage, evidence of acute territorial infarction, or other acute intracranial disease process. 2. No occlusion, hemodynamically significant stenosis, or dissection in the major cervical arteries. 3. No occlusion, hemodynamically significant stenosis, aneurysm, dissection, or arteriovenous malformation in the major intracranial arteries. Assessment of stenosis of the internal carotid arteries is based on NASCET criteria. ACT 112: Negative or not required by law. Electronically signed by: Andrea Haney M.D. 11/20/2022 3:08 PM Chest CTA 11/20/22 13:44 CT angio chest PE protocol CLINICAL HISTORY: Cough, sob, r/o PE TECHNIQUE: Multidetector row helical CT of the chest was performed with angiographic protocol. Coronal and sagittal reformations were obtained. Coronal and sagittal MIPS were obtained from the axial data set and were submitted for review. Automated dose lowering techniques and/or adjustment according to patient size were utilized for this exam. Comparison: Comparison is made to chest radiograph 11/20/2022 FINDINGS: Lungs and pleura: Normal. Heart and pericardium: Heart size is normal. No pericardial effusion. Vessels: No evidence of pulmonary embolism. Mediastinum and manuel: Unremarkable. Chest wall and lower neck: Gynecomastia is noted bilaterally. There are axillary lymph nodes measuring up to 8 mm. Left axillary nodes measure up to 6 mm. Abdomen: Cirrhosis and hepatic steatosis partially visualized. There is a 17 mm right adrenal nodule, unchanged from prior dedicated CT abdomen pelvis. Bones: Degenerative changes in the thoracic spine. IMPRESSION: 1. No acute abnormality and in particular no evidence of pulmonary embolus. 2. Subcentimeter bilateral axillary lymph nodes. 3. Partial visualization of cirrhosis. 17 mm right adrenal nodule partially visualized, unchanged from prior exam. ACT 112: Negative or not required by law. Electronically signed by: Andrea Haney M.D. 11/20/2022 3:02 PM Discharge Plan Visit Data Chief Complaint: TIA Symptoms Stated Complaint: ARMS, ONE SIDE OF FACE NUMB, LT LEG NUMB ED Provider: Cristiano Rai Discharge Problem: Alcoholic cirrhosis of liver, Alcohol withdrawal, Hypomagnesemia, Paresthesia, Transaminitis Forms Stand Alone Forms: [facility] [place] [employer] Prescriptions Prescriptions: No Action buspirone 5 mg Tablet 5 mg PO BID potassium chloride 10 mEq Tablet Extended Release 10 meq PO QAM nadolol 20 mg Tablet 20 mg PO HS ursodiol 300 mg Capsule 300 mg PO BID folic acid 1 mg Tablet 1 mg PO QAM zolpidem [Ambien] 5 mg Tablet 5 mg PO HS PRN (Reason: Sleep) pantoprazole 20 mg tablet,delayed release (DR/EC) 20 mg PO QAM spironolactone 25 mg tablet 25 mg PO QAM furosemide 20 mg tablet 20 mg PO QAM Referrals Referrals: Michelle Borrego DO [Primary Care Provider] -
[2022-11-20 14:06] LABS: Albumin Globulin Ratio 1.1 (0.9-2); BUN Creatinine Ratio 10.3 (10-20); Est GFR (African American) 122.8 ml/min; Phosphorus 3.1 mg/dl (2.5-4.9); Total Protein 8.3 gm/dl (6.0-8.3)
[2022-11-20 14:30] LABS: Lyme Ab IgG w/WB Rflx Negative (Negative); Lyme Ab IgM w/WB Rflx Negative (Negative)
[2022-11-20] MEDS ORDERED: IOVERSOL 350 MG 125mL Prefilled Syringe IV ONE (14:43)
--- NOTE | 2022-11-20 15:04 | CT Scan Report ---
CT angio chest PE protocol CLINICAL HISTORY: Cough, sob, r/o PE TECHNIQUE: Multidetector row helical CT of the chest was performed with angiographic protocol. Starkey l and sagittal reformations were obtained. Coronal and sagittal MIPS were obtained from the axial kyle a set and were submitted for review. Automated dose lowering techniques and/or adjustment according to patient size were utilized for this exam. Comparison: Comparison is made to chest radiograph 11/20/2022 FINDINGS: Lungs and pleura: Normal. Heart and pericardium: Heart size is normal. No pericardial effusion. Vessels: No evidence of pulmonary embolism. Mediastinum and manuel: Unremarkable. Chest wall and lower neck: Gynecomastia is noted bilaterally. There are axillary lymph nodes measurin g up to 8 mm. Left axillary nodes measure up to 6 mm. Abdomen: Cirrhosis and hepatic steatosis partially visualized. There is a 17 mm right adrenal nodule, unchanged from prior dedicated CT abdomen pelvis. Bones: Degenerative changes in the thoracic spine. IMPRESSION: 1. No acute abnormality and in particular no evidence of pulmonary embolus. 2. Subcentimeter bilateral axillary lymph nodes. 3. Partial visualization of cirrhosis. 17 mm right adrenal nodule partially visualized, unchanged fr om prior exam. ACT 112: Negative or not required by law. Electronically signed by: Darrel Haney M.D. 11/20/2022 3:02 PM
[2022-11-20 15:05] LABS: INR 1.2 (0.9-1.1); Partial Thromboplastin Time 28.7 Seconds (21.0-31.0)
--- NOTE | 2022-11-20 15:10 | CT Scan Report ---
CT angio neck with con, CT angio head w con, CT head/brain wo con CLINICAL HISTORY: R face, bilateral arm numbness TECHNIQUE: Contiguous axial CT images of the head were acquired from the base of the skull to the neda rene without intravenous contrast administration. CT angiography of the head and neck was performed f ollowing intravenous administration of iodinated contrast. Coronal and sagittal MIPS were obtained fr om the axial data set and were submitted for review. Automated dose lowering techniques and/or adjus tment according to patient size were utilized for this examination. All measurements were calculated based on NASCET criteria. CT DOSE: 1724.18 mGy.cm Comparison: None available at the time of this dictation. FINDINGS: CT head: There is no acute intracranial hemorrhage or evidence of acute territorial infarction. No sh ift of the midline structures, mass effect, or extra-axial abnormalities are shown. Lungs and soft tissues are unremarkable. CTA Neck: A 3 vessel aortic arch is shown. There is no significant atherosclerotic plaque in the aor tic arch or the origins of the innominate, left common carotid, and left subclavian arteries. The co mmon carotid, external carotid, cervical segments of the internal carotid arteries, and the cervical segments of the vertebral arteries are patent without hemodynamically significant stenosis. The left vertebral artery is dominant. CTA Head: The anterior and posterior cerebral circulations are patent. origin of the left post erior cerebral artery is seen. IMPRESSION: 1. No acute intracranial hemorrhage, evidence of acute territorial infarction, or other acute intrac ranial disease process. 2. No occlusion, hemodynamically significant stenosis, or dissection in the major cervical arteries. 3. No occlusion, hemodynamically significant stenosis, aneurysm, dissection, or arteriovenous malfor mation in the major intracranial arteries. Assessment of stenosis of the internal carotid arteries is based on NASCET criteria. ACT 112: Negative or not required by law. Electronically signed by: Darrel Haney M.D. 11/20/2022 3:08 PM
--- NOTE | 2022-11-20 16:52 | History & Physical Report ---
Date of Service November 20, 2022 Assessment & Plan (1) Paresthesia: Plan: Patient is a 47-year-old male with PMH alcohol abuse, alcoholic cirrhosis, ascites, esophageal varices presented to ER with c/o numbness/tingling. Patient states this morning around 10:00 started with right facial numbness, bilateral arm paresthesias and left leg numbness. DDX: TIA, CVA, alcohol withdrawal among others TSH: 1.7, mild hypomagnesia without other significant electrolyte abnormality CT Head, CTA head & neck: 1. No acute intracranial hemorrhage, evidence of acute territorial infarction, or other acute intracranial disease process. 2. No occlusion, hemodynamically significant stenosis, or dissection in the major cervical arteries. 3. No occlusion, hemodynamically significant stenosis, aneurysm, dissection, or arteriovenous malformation in the major intracranial arteries. Negative Lyme B12 level pending Tele to monitor for arrhythmias EKG in am Troponin pending Tox screen pending MRI brain Lipid, A1c in am PT/OT consult Pt allergy aspirin listed: epistaxis If MRI brain positive plan to get resting echo Etiology of symptoms unclear at this time. May need to consider adding antiplatelet, statin, and possible neuro consult (2) Alcohol withdrawal: Plan: EtOH level: 41 Drinking 10 ounces hard liquor daily, started to cut back for the past week + Tremors In ER given 2 mg Ativan, banana bag Alcohol withdrawal protocol with gabapentin, Ativan Voices intent to quit drinking Currently uninsured if interested in alcohol rehab Discussed alcohol cessation Multivitamin, thiamine, folic acid daily CMP, magnesium, phosphorus labs in a.m. (3) Hypomagnesemia: Plan: Magnesium: 1.6 Given 2 g magnesium sulfate in ER Magnesium lab in a.m. (4) Cough: Plan: Nasal congestion, postnasal drip, nonproductive cough, sore throat x3 weeks (5) Alcoholic cirrhosis of liver: (6) Esophageal varices: Plan: Today INR: 1.2, total bili: 1.2, AST: 80, ALT: 77, alk phos: 50 (AST was 47 and ALT was 53 on 11/14/2022 Continue Lasix, spironolactone, nadolol, PPI (7) Abnormal CT of the chest: Plan: CTA Chest: 1. No acute abnormality and in particular no evidence of pulmonary embolus. 2. Subcentimeter bilateral axillary lymph nodes. 3. Partial visualization of cirrhosis. 17 mm right adrenal nodule partially visualized, unchanged from prior exam. Will need continued follow up DVT Prophylaxis SCDs Full Code as per discussion with pt Follows with Dr Borrego for routine care Pt was seen and care coordinated with Dr Villasenor. See addendum I spent a total of 77 minutes reviewing notes, outpatient records, labs, medication, coordinating, documenting and providing care for this patient excluding time spent in the performance of separately billed services. History of Present Illness Chief Complaint: Numbness/tingling Primary Care Provider: Michelle Borrego DO Patient is a 47-year-old male with PMH alcohol abuse, alcoholic cirrhosis, ascites, esophageal varices presented to ER with c/o numbness/tingling. Patient states this morning around 10:00 started with right facial numbness, bilateral arm paresthesias and left leg numbness. He states it felt like his right side of face was drooping but is unsure. Upon ER arrival no facial drooping was noted. States past several weeks with blurry vision bilateral eyes. Patient reports prior history alcohol abuse and was abstinent for years however past 3-4 months resumed drinking again and having 10 shots hard liquor daily. He states he wants to quit so past week has started to cut back by drinking a little less each day. States past 2 days having 3oz hard liquor daily. He states for past week since cutting back has had myalgias and does not feel well overall. Also reports tremors and intermittent nausea. History seizure from alcohol withdrawal in past. Patient also reports for the past 3 weeks he has had a sore throat, nonproductive cough, and nasal congestion, postnasal drip. He has not been taking temperature but states initially had some tactile fevers. States tried OTC nasal spray without much relief. He reports his father has similar URI symptoms. Denies any recent travel. Denies Diaphoresis, vomiting, diarrhea, constipation, HEREDIA, dizziness, syncope, neck pain, CP, SOB, orthopnea, palpitations, hemoptysis, otalgia, dysphagia, dysphasia, abdominal pain, increased abdominal girth, paresthesias, extremity weakness, extremity edema, rashes, urinary symptoms. Per outpatient chart review: History biliary colic. Prior evaluation by surgery at [facility] patient not candidate for cholecystectomy secondary to history of cirrhosis, there were plans for possible cholecystostomy drainage in 2019 but his symptoms improved. 05/09/2021: EGD: Scarring lower third of esophagus, no drainable varices seen, normal stomach, normal examined duodenum Allergies Allergy/AdvReac Type Severity Reaction Status Date / Time aspirin AdvReac Unknown THINS Verified 11/20/22 15:48 BLOOD, NOSE BLEEDS Home Medications Medication Instructions Recorded Confirmed Type buspirone 5 mg tablet 5 mg PO BID 06/10/18 11/20/22 History folic acid 1 mg tablet 1 mg PO QAM 06/10/18 11/20/22 History nadolol 20 mg tablet 20 mg PO HS 06/10/18 11/20/22 History potassium chloride 10 mEq 10 meq PO QAM 06/10/18 11/20/22 History tablet,extended release ursodiol 300 mg capsule 300 mg PO BID 06/10/18 11/20/22 History zolpidem 5 mg tablet (Ambien) 5 mg PO HS PRN Sleep 06/10/18 11/20/22 History pantoprazole 20 mg tablet,delayed 20 mg PO QAM 07/09/19 11/20/22 History release furosemide 20 mg tablet 20 mg PO QAM 11/14/22 11/20/22 History spironolactone 25 mg tablet 25 mg PO QAM 11/14/22 11/20/22 History Past Med/Surg History Medical History (Updated 11/20/22 @ 22:17 by Myla Reyes PA-C) Alcoholic cirrhosis of liver Esophageal varices History of alcohol abuse History of macrocytic anemia Portal hypertension Surgical History History of esophagogastroduodenoscopy (EGD) Including procedures for esophageal varices banding History of tonsillectomy Family History Mother Diabetes Father Prostate cancer Other No family history of adverse response to anesthesia Social History Smoking Status: Never smoker Second Hand Exposure: No; Do You Dip or Chew Tobacco: Yes (1 can every week); Hx Alcohol Use: No Hx Substance Use: No Preferred Language: Arabic Communication Ability: Effective Instrumentation Specialist Required: No Beliefs That Will Affect Care: None Current Living Situation: Parent Current Living Situation Comment: lives with parents Feels Safe at Home: Yes Assistive Devices: None Review of Systems Review of Systems: All systems reviewed & are unremarkable except as noted in HPI & below Physical Exam Physical Exam: General: no acute distress, WDWN Head: normocephalic, atraumatic Eyes: PERRL, EOM's intact, conjunctiva non-injected, anicteric ENT: normal inspection external ears, nose, mucous membranes moist Neck: supple, trachea midline Lungs: clear, no respiratory distress, no wheezing/rhonchi/rales CV: RRR, no murmur, no pretibial edema Abd: normal BS, soft, non-tender Ext: no cyanosis, no calf tenderness Neuro: A&O x 3, +tremulous, normal affect, facial sensation is intact and symmetric, face is strong and symmetric, hearing grossly intact, soft palate elevates symmetrically, no dysarthria, shoulder shrug intact, tongue is midline. Strength 5/5 bilateral upper and lower extremities Skin: warm, dry Results & Data Results & Data Vital Signs (Past 12 Hours) Vital Signs Temp Pulse Pulse Resp BP BP Pulse Ox 11/20/22 16:00 75 18 159/100 H 94 11/20/22 15:07 70 19 96 11/20/22 14:18 36.8 C 75 19 127/89 96 11/20/22 13:11 71 11/20/22 12:23 36.8 C 75 19 146/87 H 95 O2 Del Method 11/20/22 16:00 11/20/22 15:07 Room Air 11/20/22 14:18 Room Air 11/20/22 13:11 11/20/22 12:23 Room Air Laboratory Results Short CBC 11/20/22 Range/Units 12:53 WBC 6.44 (4.8-10.8) K/ul Hgb 17.3 (14.0-18.0) g/dl Hct 49.7 (42.0-52.0) % Plt Count 141 (130-400) K/uL BMP 11/20/22 12:53 Sodium 141 Potassium 3.9 Chloride 104 Carbon Dioxide 21 BUN 8 Creatinine 0.78 Glucose 129 H Calcium 8.8 Liver Function 11/20/22 11/20/22 Range/Units 12:53 14:08 Total Bilirubin 1.2 H (0.2-1.0) mg/dl Direct Bilirubin 0.2 (0-0.2) mg/dl AST 80 H (13-39) U/L ALT 77 H (7-52) U/L Alkaline Phosphatase 50 (34-104) U/L Albumin 4.3 (3.4-5.0) gm/dl Diagnostic Findings Chest X-Ray 11/20/22 12:30 XR chest 1V portable HISTORY: 47 years-old Male stroke alert acute stroke like symptoms COMPARISON: 11/14/2022 TECHNIQUE: AP view of the chest FINDINGS: Cardiac silhouette is enlarged. There is a new right infrahilar opacity favoring atelectasis. No pneumothorax, pleural effusion or airspace consolidation. Bones appear grossly intact. IMPRESSION: Mild right infrahilar atelectasis. ACT 112: Negative or not required by law. The above report was generated using voice recognition software. It may contain grammatical, syntax or spelling errors. Electronically signed by: Jhonny Fletcher M.D. 11/20/2022 1:[address] 11/20/22 12:30 CT angio neck with con, CT angio head w con, CT head/brain wo con CLINICAL HISTORY: R face, bilateral arm numbness TECHNIQUE: Contiguous axial CT images of the head were acquired from the base of the skull to the vertex without intravenous contrast administration. CT angiography of the head and neck was performed following intravenous administration of iodinated contrast. Coronal and sagittal MIPS were obtained from the axial data set and were submitted for review. Automated dose lowering techniques and/or adjustment according to patient size were utilized for this examination. All measurements were calculated based on NASCET criteria. CT DOSE: 1724.18 mGy.cm Comparison: None available at the time of this dictation. FINDINGS: CT head: There is no acute intracranial hemorrhage or evidence of acute territorial infarction. No shift of the midline structures, mass effect, or extra-axial abnormalities are shown. Lungs and soft tissues are unremarkable. CTA Neck: A 3 vessel aortic arch is shown. There is no significant atherosclerotic plaque in the aortic arch or the origins of the innominate, left common carotid, and left subclavian arteries. The common carotid, external carotid, cervical segments of the internal carotid arteries, and the cervical segments of the vertebral arteries are patent without hemodynamically significant stenosis. The left vertebral artery is dominant. CTA Head: The anterior and posterior cerebral circulations are patent. origin of the left posterior cerebral artery is seen. IMPRESSION: 1. No acute intracranial hemorrhage, evidence of acute territorial infarction, or other acute intracranial disease process. 2. No occlusion, hemodynamically significant stenosis, or dissection in the major cervical arteries. 3. No occlusion, hemodynamically significant stenosis, aneurysm, dissection, or arteriovenous malformation in the major intracranial arteries. Assessment of stenosis of the internal carotid arteries is based on NASCET criteria. ACT 112: Negative or not required by law. Electronically signed by: Darrel Haney M.D. 11/20/2022 3:08 PM Head CTA 11/20/22 13:06 CT angio neck with con, CT angio head w con, CT head/brain wo con CLINICAL HISTORY: R face, bilateral arm numbness TECHNIQUE: Contiguous axial CT images of the head were acquired from the base of the skull to the vertex without intravenous contrast administration. CT angiography of the head and neck was performed following intravenous administration of iodinated contrast. Coronal and sagittal MIPS were obtained from the axial data set and were submitted for review. Automated dose lowering techniques and/or adjustment according to patient size were utilized for this examination. All measurements were calculated based on NASCET criteria. CT DOSE: 1724.18 mGy.cm Comparison: None available at the time of this dictation. FINDINGS: CT head: There is no acute intracranial hemorrhage or evidence of acute territorial infarction. No shift of the midline structures, mass effect, or extra-axial abnormalities are shown. Lungs and soft tissues are unremarkable. CTA Neck: A 3 vessel aortic arch is shown. There is no significant atherosclerotic plaque in the aortic arch or the origins of the innominate, left common carotid, and left subclavian arteries. The common carotid, external carotid, cervical segments of the internal carotid arteries, and the cervical segments of the vertebral arteries are patent without hemodynamically significant stenosis. The left vertebral artery is dominant. CTA Head: The anterior and posterior cerebral circulations are patent. origin of the left posterior cerebral artery is seen. IMPRESSION: 1. No acute intracranial hemorrhage, evidence of acute territorial infarction, or other acute intracranial disease process. 2. No occlusion, hemodynamically significant stenosis, or dissection in the major cervical arteries. 3. No occlusion, hemodynamically significant stenosis, aneurysm, dissection, or arteriovenous malformation in the major intracranial arteries. Assessment of stenosis of the internal carotid arteries is based on NASCET crite olimpia. ACT 112: Negative or not required by law. Electronically signed by: Darrel Haney M.D. 11/20/2022 3:08 PM Neck CTA 11/20/22 13:06 CT angio neck with con, CT angio head w con, CT head/brain wo con CLINICAL HISTORY: R face, bilateral arm numbness TECHNIQUE: Contiguous axial CT images of the head were acquired from the base of the skull to the vertex without intravenous contrast administration. CT angiography of the head and neck was performed following intravenous administration of iodinated contrast. Coronal and sagittal MIPS were obtained from the axial data set and were submitted for review. Automated dose lowering techniques and/or adjustment according to patient size were utilized for this examination. All measurements were calculated based on NASCET criteria. CT DOSE: 1724.18 mGy.cm Comparison: None available at the time of this dictation. FINDINGS: CT head: There is no acute intracranial hemorrhage or evidence of acute te rritorial infarction. No shift of the midline structures, mass effect, or extra- axial abnormalities are shown. Lungs and soft tissues are unremarkable. CTA Neck: A 3 vessel aortic arch is shown. There is no significant atherosclerotic plaque in the aortic arch or the origins of the innominate, left common carotid, and left subclavian arteries. The common carotid, external carotid, cervical segments of the internal carotid arteries, and the cervical segments of the vertebral arteries are patent without hemodynamically significant stenosis. The left vertebral artery is dominant. CTA Head: The anterior and posterior cerebral circulations are patent. origin of the left posterior cerebral artery is seen. IMPRESSION: 1. No acute intracranial hemorrhage, evidence of acute territorial infarction, or other acute intracranial disease process. 2. No occlusion, hemodynamically significant stenosis, or dissection in the major cervical arteries. 3. No occlusion, hemodynamically significant stenosis, aneurysm, dissection, or arteriovenous malformation in the major intracranial arteries. Assessment of stenosis of the internal carotid arteries is based on NASCET criteria. ACT 112: Negative or not required by law. Electronically signed by: Darrel Haney M.D. 11/20/2022 3:08 PM Chest CTA 11/20/22 13:44 CT angio chest PE protocol CLINICAL HISTORY: Cough, sob, r/o PE TECHNIQUE: Multidetector row helical CT of the chest was performed with angiographic protocol. Coronal and sagittal reformations were obtained. Coronal and sagittal MIPS were obtained from the axial data set and were submitted for review. Automated dose lowering techniques and/or adjustment according to patient size were utilized for this exam. Comparison: Comparison is made to chest radiograph 11/20/2022 FINDINGS: Lungs and pleura: Normal. Heart and pericardium: Heart size is normal. No pericardial effusion. Vessels: No evidence of pulmonary embolism. Mediastinum and manuel: Unremarkable. Chest wall and lower neck: Gynecomastia is noted bilaterally. There are axillary lymph nodes measuring up to 8 mm. Left axillary nodes measure up to 6 mm. Abdomen: Cirrhosis and hepatic steatosis partially visualized. There is a 17 mm right adrenal nodule, unchanged from prior dedicated CT abdomen pelvis. Bones: Degenerative changes in the thoracic spine. IMPRESSION: 1. No acute abnormality and in particular no evidence of pulmonary embolus. 2. Subcentimeter bilateral axillary lymph nodes. 3. Partial visualization of cirrhosis. 17 mm right adrenal nodule partially visualized, unchanged from prior exam. ACT 112: Negative or not required by law. Electronically signed by: Darrel Haney M.D. 11/20/2022 3:02 PM ECG Additional Comments: 12:54 EKG Per my interpretation: Poor tracing, sinus rhythm, rate 66, T wave inversion in septal leads, T wave flattening anterior leads 13:04 EKG per my interpretation: sinus rhythm, rate 60, T wave inversion septal and anterior leads Supervising Physician Co-Signing Physician Notes I have seen and discussed the case with the collaborating RAPHAEL. I agree with the above H&P. I have reviewed and confirmed the patients medical history, the findings on physical examination, and the patients diagnosis and [facility] and agree with the information documented. In short, Mr. Guillory is a 47 year old gentleman with history notable cirrhosis 2/2 etoh c/b esophageal varices, as well as chronic cholecystitis who presented to the ED due to concerns for bilateral lower extremity numbness and tingling, as well as transient facial droop. Patient reports feeling as if he is going through alcohol withdrawal, but was concerned for the facial symptoms he experienced. Labs notable for low mag of 1.6, INR 1.2, gap of 16 iso elevated blood alcohol of 41. MELD on admission 9. CT imaging did not reveal any signs of dissection, stenosis, or acute hemorrhage. Physical exam was notable for a tremulous and anxious gentleman, but neuro exam did not reveal any focal deficits or CN impairment. ABCD2 score 1 (low risk) due to elevated blood pressure >140s. Patient's history is not entirely congruent with TIA, prior lipid panels with LDL at 74 in 02/2022, no history of DM; however, given patient's report of symptom, it would be prudent to obtain MRI and repeat EKG (admit EKG with significant artifact). Additionally, plan to monitor on tele with [facility] for withdrawal symptoms. If imaging suggest possible TIA, risk/benefit of DAPT in patient with cirrhosis and known varices will be had. Additionally, will check ammonia as well and liver US as baseline LFTs are elevated, and to assess for possible hepatic encephalopathy underlying intoxication/withdrawal.
[2022-11-20] MEDS: MAGNESIUM SULFATE / D5W 1 GM/100 ML BAG IV SCH ×2 (17:15→18:20)
--- NOTE | 2022-11-20 18:29 | Electrocardiogram Report ---
Test Reason : Blood Pressure : / mmHG Vent. Rate : 066 BPM Atrial Rate : 066 BPM P-R Int : 124 ms QRS Dur : 088 ms QT Int : 410 ms P-R-T Axes : 009 042 030 degrees QTc Int : 429 ms Poor data quality, interpretation may be adversely affected Sinus rhythm T-wave inversion in Anteroseptal leads Abnormal ECG When compared with ECG of 14-NOV-2022 08:16, No significant change Confirmed by Dilip Jones ([id number]) on 11/20/2022 6:28:57 PM Referred By: Confirmed By:Dilip Jones
[2022-11-20] MEDS ORDERED: ONDANSETRON INJ 2 MG/ML 2 ML VIAL IV PRN (20:39)
[2022-11-20] MEDS ORDERED: GABAPENTIN 1200MG ALCOHOL WITHDRAWAL LOAD PO STA (20:39)
[2022-11-20] MEDS ORDERED: LORazepam 2 MG/1 ML VIAL IV PRN (20:39)
[2022-11-20] MEDS ORDERED: Ativan IV Alcohol Withdrawal--Active Protocol IV PRN (20:39)
[2022-11-20] MEDS ORDERED: PHARMACIST DISCHARGE MED REC CONSULT PRN (20:39)
[2022-11-20] MEDS ORDERED: GABAPENTIN 600 MG TAB PO ONE (20:39)
[2022-11-20] MEDS ORDERED: POLYETHYLENE (MIRALAX) 17 GM PACK PO PRN (20:39)
[2022-11-20] MEDS: busPIRone 5 MG TAB PO SCH (23:52)
[2022-11-20] MEDS: ursodioL 300 MG CAP PO SCH (23:53)
[2022-11-20] MEDS: nadoloL 40 MG TAB PO SCH (23:53)
[2022-11-20] MEDS: FLUTICASONE PROPIONATE NA SPR 16 GM BTL SCH (23:54)
--- NOTE | 2022-11-21 00:46 | Magnetic Resonance Report ---
Exam(s): MRI HEAD Without Contrast EXAM: MR Head Without Intravenous Contrast CLINICAL HISTORY: Reason for exam: r/o stroke. TECHNIQUE: Magnetic resonance images of the head/brain without intravenous contrast in multiple planes. COMPARISON: Comparison made to prior noncontrast head CT from November 20, 2022. FINDINGS: Brain: Minimal nonspecific white matter changes. No mass. No hemorrhage. No acute infarct. Ventricles: Unremarkable. No ventriculomegaly. Bones/joints: Unremarkable. Sinuses: Unremarkable as visualized. No acute sinusitis. Mastoid air cells: Unremarkable as visualized. No mastoid effusion. Orbits: Unremarkable as visualized. IMPRESSION: No evidence of acute intracranial pathology. Minimal nonspecific white matter changes. Electronically signed by: Megan Villanueva MD 11/21/22 00:46 AM
[2022-11-21] MEDS: GABAPENTIN 600 MG TAB PO SCH ×3 (06:10→20:08)
[2022-11-21 07:13] LABS: Basophils # (auto) 0.02 K/uL (0.00-0.20); Basophils % (auto) 0.4 %; Eosinophils # (auto) 0.24 K/uL (0.00-0.50); Eosinophils % (auto) 5.3 %; Hematocrit (blood only) 42.5 % (42.0-52.0); Hemoglobin 14.9 g/dl (14.0-18.0); Immature Granulocytes # (auto) 0.01 K/uL (0.01-0.20); Immature Granulocytes % (auto) 0.2 %; Lymphocytes # (auto) 1.19 K/uL (1.20-3.40); Lymphocytes % (auto) 26.3 %; Mean Corpuscular Hemoglobin 33.6 pg (25.0-34.0); Mean Corpuscular Hgb Conc 35.1 g/dL (32.0-36.0); Mean Corpuscular Volume 95.7 fL (80.0-100.0); Mean Platelet Volume 9.9 fL (9.4-12.4); Monocytes # (auto) 0.54 K/uL (0.11-0.59); Monocytes % (auto) 11.9 %; Neutrophils # (auto) 2.52 K/uL (1.40-6.50); Neutrophils % (auto) 55.9 %; Platelet Count 110 K/uL (130-400); RDW Coefficient of Variation 12.8 % (11.5-14.5); RDW Standard Deviation 45.1 fL (36.4-46.3); Red Blood Count 4.44 M/uL (4.70-6.10); White Blood Count 4.52 K/ul (4.8-10.8)
[2022-11-21 07:41] LABS: Amphetamines+Metham, Urine Neg (Neg); Barbiturates, Urine Neg (Neg); Benzodiazepine, Urine Neg (Neg); Cocaine, Urine Neg (Neg); MDMA (Ecstacy), Urine Neg (Neg); Methadone, Urine Neg (Neg); Opiate, Urine Neg (Neg); Phencyclidine, Urine Neg (Neg)
[2022-11-21 07:41] LABS: Estimated Average Glucose 108 mg/dl; Hemoglobin A1C 5.4 % (4.5-5.6)
--- NOTE | 2022-11-21 07:48 | Ultrasound Report ---
ABDOMINAL ULTRASOUND, RIGHT UPPER QUADRANT HISTORY: cirrhosis, chronic cholecystitis. COMPARISON: Abdomen and pelvis CT 11/14/2022. Abdominal ultrasound 07/09/2019. FINDINGS: Pancreas: The pancreatic head and tail are obscured by overlying bowel gas. The remaining portions of the pancreas are within normal limits. Liver: Nodular contour to the liver with a coarsened echotexture consistent with cirrhosis. The main portal vein appears patent. No hepatic masses. Gallbladder: A 1.2 cm stone versus sludge ball again noted within the gallbladder. No gallbladder wal l thickening. Negative sonographic Curry sign. CBD: 4 mm. Right kidney: No hydronephrosis. IMPRESSION: 1. A 1.2 cm stone versus sludge ball again noted within the gallbladder. No gallbladder wall thickeni ng. 2. Cirrhotic liver. ACT 112: Negative or not required by law. Electronically signed by: Naresh Hayes M.D. 11/21/2022 7:47 AM
[2022-11-21] MEDS ORDERED: PANTOprazole 40 MG TAB PO SCH (09:00)
[2022-11-21] MEDS: SPIRONOLACTONE 25 MG TAB PO SCH (09:08)
[2022-11-21] MEDS: MULTIVITAMIN TAB PO SCH (09:09)
[2022-11-21] MEDS: POTASSIUM CHLORIDE 10 MEQ TABCR PO SCH (09:09)
[2022-11-21] MEDS: FOLIC ACID 1 MG TAB PO SCH (09:09)
[2022-11-21] MEDS: FUROSEMIDE 20 MG TAB PO SCH (09:09)
[2022-11-21] MEDS: THIAMINE HCL 100 MG TAB PO SCH (09:10)
[2022-11-21] MEDS: ursodioL 300 MG CAP PO SCH ×2 (09:10→20:11)
[2022-11-21] MEDS: busPIRone 5 MG TAB PO SCH ×2 (09:10→20:11)
[2022-11-21] MEDS: FLUTICASONE PROPIONATE NA SPR 16 GM BTL SCH (09:11)
[2022-11-21 11:16] LABS: Albumin Level 3.6 gm/dl (3.4-5.0); Bilirubin,Total 1.7 mg/dl (0.2-1.0); Calcium 8.3 mg/dl (8.6-10.3); Potassium 3.6 mmol/L (3.5-5.1)
[2022-11-21 11:24] LABS: Albumin Globulin Ratio 1.2 (0.9-2); BUN Creatinine Ratio 11.4 (10-20); Chol HDL Ratio 2.5 (0-5); Creatinine Clr Calc Pharmacy 122.2 ml/min; Est GFR (African American) 122.2 ml/min; Est GFR (Non-African American) 105.4 ml/min; Phosphorus 4.3 mg/dl (2.5-4.9); Total Protein 6.6 gm/dl (6.0-8.3)
--- NOTE | 2022-11-21 15:32 | Hospitalist Progress Note ---
Date of Service November 21, 2022 Assessment & Plan (1) Paresthesia: Plan: Patient is a 47-year-old male with PMH alcohol abuse, alcoholic cirrhosis, ascites, esophageal varices presented to ER with c/o numbness/tingling. Patient states this morning around 10:00 started with right facial numbness, bilateral arm paresthesias and left leg numbness. Generalized paresthesias Likely secondary to alcohol withdrawal --MRI Brain:No evidence of acute intracranial pathology. Minimal nonspecific white matter changes. --Head/Neck CTA: No acute intracranial hemorrhage, evidence of acute territorial infarction, or other acute intracranial disease process. No occlusion, hemodynamically significant stenosis, or dissection in the major cervical arteries. No occlusion, hemodynamically significant stenosis, aneurysm, dissection, or arteriovenous malformation in the major intracranial arteries. 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 alcohol use Continue Multivitamin, thiamine, folic acid daily Monitor for withdrawal (3) Hypomagnesemia: Plan: Magnesium: 1.6 Replete electrolytes as needed (4) Cough: Plan: No signs of pneumonia on imaging Nasal congestion, postnasal drip, nonproductive cough, sore throat x3 weeks COVID, influenza, RSV screen negative Procalcitonin not elevated Continue Flonase (5) Alcoholic cirrhosis of liver: (6) Esophageal varices: Plan: Counseled to quit alcohol use Continue Lasix, spironolactone, nadolol, PPI (7) Abnormal CT of the chest: Plan: Bilateral axillary lymphadenopathy Right adrenal nodule --CTA Chest:Subcentimeter bilateral axillary lymph nodes. 17 mm right adrenal nodule partially visualized, unchanged from prior exam. Needs further work-up as outpatient DVT Px SCDs for now Encouraged to ambulate CODE STATUS Full code Admission and Anticipated Discharge Date Admission Date: November 20, 2022 Subjective Patient is seen and examined at bedside States feeling much better today Less anxious, tremor today Reports dry cough which she attributes to postnasal drip Facial numbness, leg numbness resolved Still has some paresthesias of left hand Denies any chest pain, dyspnea, dizziness, abdominal pain No other complaints Review of Systems Review of Systems: All systems reviewed & are unremarkable except as noted in Subjective Physical Exam Physical Exam: Physical Exam: Vitals signs as noted above General Appearance:Moderately built and nourished, no apparent distress Head: normocephalic, Atraumatic Eyes: normal inspection, EOMI Neck: supple, Trachea midline Respiratory/Chest: Normal breath sounds, CTA, No accessory muscle use Cardiovascular: S1, S2, No murmur Abdomen/GI:Soft, Non tender, Bowel sounds present Extremities/Musculoskeletal:normal inspection, no edema Neurologic/Psych:AAOX3, grossly no focal neurological deficits Skin: normal color, warm Results & Data Results & Data Vital Signs (Past 12 Hours) Vital Signs Temp Pulse Pulse Pulse Resp BP Pulse Ox 11/21/22 15:00 66 11/21/22 13:13 11/21/22 11:03 36.5 C 47 L 18 132/83 95 11/21/22 07:29 50 L 11/21/22 07:01 36.4 C L 45 L 18 123/78 96 11/21/22 06:25 36.5 C 57 L 20 124/80 96 11/21/22 03:57 36.3 C L 44 L 18 137/77 94 Pulse Ox O2 Del Method 11/21/22 15:00 11/21/22 13:13 96 11/21/22 11:03 Room Air 11/21/22 07:29 11/21/22 07:01 Room Air 11/21/22 06:25 Room Air 11/21/22 03:57 Room Air Laboratory Results Short CBC 11/21/22 Range/Units 06:48 WBC 4.52 L (4.8-10.8) K/ul Hgb 14.9 (14.0-18.0) g/dl Hct 42.5 (42.0-52.0) % Plt Count 110 L (130-400) K/uL BMP 11/21/22 06:48 Sodium 139 Potassium 3.6 Chloride 107 Carbon Dioxide 28 BUN 9 Creatinine 0.79 Glucose 112 H Calcium 8.3 L Liver Function 11/20/22 11/21/22 Range/Units 14:08 06:48 Total Bilirubin 1.7 H (0.2-1.0) mg/dl Direct Bilirubin 0.2 (0-0.2) mg/dl AST 56 H (13-39) U/L ALT 57 H (7-52) U/L Alkaline Phosphatase 42 (34-104) U/L Albumin 3.6 (3.4-5.0) gm/dl
--- NOTE | 2022-11-21 16:34 | Electrocardiogram Report ---
Test Reason : Blood Pressure : / mmHG Vent. Rate : 068 BPM Atrial Rate : 068 BPM P-R Int : 142 ms QRS Dur : 092 ms QT Int : 414 ms P-R-T Axes : 037 057 041 degrees QTc Int : 440 ms Normal sinus rhythm T-wave inversion in Anteroseptal leads , consider ischemia Abnormal ECG When compared with ECG of 20-NOV-2022 12:54, Artifact no longer present Confirmed by Guy Dejesus ([id number]) on 11/21/2022 4:34:12 PM Referred By: REFERRED SELF Confirmed By:Guy Dejesus
--- NOTE | 2022-11-21 16:35 | Electrocardiogram Report ---
Test Reason : Blood Pressure : / mmHG Vent. Rate : 060 BPM Atrial Rate : 060 BPM P-R Int : 124 ms QRS Dur : 094 ms QT Int : 444 ms P-R-T Axes : 039 055 035 degrees QTc Int : 444 ms Normal sinus rhythm T-wave inversion in Anteroseptal leads , consider ischemia Abnormal ECG When compared with ECG of 20-NOV-2022 13:04, No significant change was found Confirmed by Guy Dejesus ([id number]) on 11/21/2022 4:34:37 PM Referred By: REFERRED SELF Confirmed By:Guy Dejesus
[2022-11-21] MEDS: LORazepam 2 MG/1 ML VIAL IV PRN (18:02)
[2022-11-21] MEDS: nadoloL 40 MG TAB PO SCH (20:08)
[2022-11-22] MEDS: LORazepam 2 MG/1 ML VIAL IV PRN ×3 (00:25→17:02)
[2022-11-22] MEDS: GABAPENTIN 600 MG TAB PO SCH ×3 (04:32→23:10)
[2022-11-22 08:34] LABS: Hemoglobin 15.9 g/dl (14.0-18.0); Mean Corpuscular Hemoglobin 33.7 pg (25.0-34.0); Mean Corpuscular Hgb Conc 34.6 g/dL (32.0-36.0); Mean Corpuscular Volume 97.5 fL (80.0-100.0); Mean Platelet Volume 10.1 fL (9.4-12.4); Platelet Count 108 K/uL (130-400); RDW Coefficient of Variation 12.8 % (11.5-14.5); RDW Standard Deviation 45.4 fL (36.4-46.3); Red Blood Count 4.72 M/uL (4.70-6.10); White Blood Count 6.52 K/ul (4.8-10.8)
[2022-11-22 08:50] LABS: Albumin Globulin Ratio 1.1 (0.9-2); Albumin Level 3.8 gm/dl (3.4-5.0); BUN Creatinine Ratio 15.6 (10-20); Bilirubin,Total 1.5 mg/dl (0.2-1.0); Calcium 8.7 mg/dl (8.6-10.3); Creatinine Clr Calc Pharmacy 107.2 ml/min; Est GFR (African American) 115.8 ml/min; Est GFR (Non-African American) 99.9 ml/min; Globulin 3.5 gm/dl (2.5-4.0); Magnesium 1.8 mg/dl (1.7-2.4); Potassium 3.8 mmol/L (3.5-5.1); Total Protein 7.3 gm/dl (6.0-8.3)
[2022-11-22] MEDS: FLUTICASONE PROPIONATE NA SPR 16 GM BTL SCH (09:06)
[2022-11-22] MEDS: busPIRone 5 MG TAB PO SCH ×2 (09:07→20:20)
[2022-11-22] MEDS: FUROSEMIDE 20 MG TAB PO SCH (09:07)
[2022-11-22] MEDS: ursodioL 300 MG CAP PO SCH ×2 (09:07→20:20)
[2022-11-22] MEDS: PANTOprazole 40 MG TAB PO SCH (09:08)
[2022-11-22] MEDS: MULTIVITAMIN TAB PO SCH (09:08)
[2022-11-22] MEDS: FOLIC ACID 1 MG TAB PO SCH (09:11)
[2022-11-22] MEDS: POTASSIUM CHLORIDE 10 MEQ TABCR PO SCH (09:14)
[2022-11-22] MEDS: SPIRONOLACTONE 25 MG TAB PO SCH (09:15)
[2022-11-22] MEDS: THIAMINE HCL 100 MG TAB PO SCH (09:16)
--- NOTE | 2022-11-22 16:50 | Hospitalist Progress Note ---
Date of Service November 22, 2022 Assessment & Plan (1) Paresthesia: Plan: Patient is a 47-year-old male with PMH alcohol abuse, alcoholic cirrhosis, ascites, esophageal varices presented to ER with c/o numbness/tingling. Patient states this morning around 10:00 started with right facial numbness, bilateral arm paresthesias and left leg numbness. Generalized paresthesias Likely secondary to alcohol withdrawal --MRI Brain:No evidence of acute intracranial pathology. Minimal nonspecific white matter changes. --Head/Neck CTA: No acute intracranial hemorrhage, evidence of acute territorial infarction, or other acute intracranial disease process. No occlusion, hemodynamically significant stenosis, or dissection in the major cervical arteries. No occlusion, hemodynamically significant stenosis, aneurysm, dissection, or arteriovenous malformation in the major intracranial arteries. 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 Continue Multivitamin, thiamine, folic acid daily Monitor for withdrawal Continue current management (3) Hypomagnesemia: Plan: Magnesium: 1.6 Replete electrolytes as needed (4) Cough: Plan: No signs of pneumonia on imaging Nasal congestion, postnasal drip, nonproductive cough, sore throat x3 weeks COVID, influenza, RSV screen negative Procalcitonin not elevated Continue Flonase Improving (5) Alcoholic cirrhosis of liver: (6) Esophageal varices: Plan: Counseled to quit alcohol use Continue Lasix, spironolactone, nadolol, PPI (7) Abnormal CT of the chest: Plan: Bilateral axillary lymphadenopathy Right adrenal nodule --CTA Chest:Subcentimeter bilateral axillary lymph nodes. 17 mm right adrenal nodule partially visualized, unchanged from prior exam. Needs further work-up as outpatient DVT Px SCDs for now Re: Thrombocytopenia Encouraged to ambulate CODE STATUS Full code Admission and Anticipated Discharge Date Admission Date: November 20, 2022 Subjective Patient is seen and examined at bedside Less paresthesias today Cough improving as well Reports having mild headache this morning Still feels anxious intermittently Denies any chest pain, dyspnea, dizziness, abdominal pain No events overnight Review of Systems Review of Systems: All systems reviewed & are unremarkable except as noted in Subjective Physical Exam Physical Exam: Physical Exam: Vitals signs as noted above General Appearance:Moderately built and nourished, no apparent distress Head: normocephalic, Atraumatic Eyes: normal inspection, EOMI Neck: supple, Trachea midline Respiratory/Chest: Normal breath sounds, CTA, No accessory muscle use Cardiovascular: S1, S2, No murmur Abdomen/GI:Soft, Non tender, Bowel sounds present Extremities/Musculoskeletal:normal inspection, no edema Neurologic/Psych:AAOX3, grossly no focal neurological deficits Skin: normal color, warm Results & Data Results & Data Vital Signs (Past 12 Hours) Vital Signs Temp Pulse Pulse Resp BP Pulse Ox O2 Del Method 11/22/22 10:26 36.3 C L 71 21 127/84 94 Room Air 11/22/22 07:30 36.6 C 61 21 129/80 96 Room Air 11/22/22 07:25 55 L Laboratory Results Short CBC 11/22/22 Range/Units 08:04 WBC 6.52 (4.8-10.8) K/ul Hgb 15.9 (14.0-18.0) g/dl Hct 46.0 (42.0-52.0) % Plt Count 108 L (130-400) K/uL BMP 11/22/22 08:04 Sodium 138 Potassium 3.8 Chloride 105 Carbon Dioxide 25 BUN 14 Creatinine 0.90 Glucose 153 H Calcium 8.7 Liver Function 11/22/22 Range/Units 08:04 Total Bilirubin 1.5 H (0.2-1.0) mg/dl AST 57 H (13-39) U/L ALT 63 H (7-52) U/L Alkaline Phosphatase 47 (34-104) U/L Albumin 3.8 (3.4-5.0) gm/dl
[2022-11-22] MEDS: nadoloL 40 MG TAB PO SCH (20:19)
[2022-11-22] MEDS: ACETAMINOPHEN 325 MG TAB PO PRN (20:26)
[2022-11-23] MEDS: LORazepam 2 MG/1 ML VIAL IV PRN ×2 (00:07→20:11)
[2022-11-23 06:32] LABS: Hematocrit (blood only) 43.4 % (42.0-52.0); Hemoglobin 15.2 g/dl (14.0-18.0); Mean Corpuscular Hemoglobin 33.8 pg (25.0-34.0); Mean Corpuscular Volume 96.4 fL (80.0-100.0); Mean Platelet Volume 10.7 fL (9.4-12.4); Platelet Count 95 K/uL (130-400); RDW Coefficient of Variation 12.8 % (11.5-14.5); RDW Standard Deviation 44.9 fL (36.4-46.3); White Blood Count 4.58 K/ul (4.8-10.8)
[2022-11-23 07:14] LABS: Albumin Globulin Ratio 1.2 (0.9-2); Albumin Level 3.7 gm/dl (3.4-5.0); BUN Creatinine Ratio 18.4 (10-20); Bilirubin,Total 0.9 mg/dl (0.2-1.0); Calcium 8.8 mg/dl (8.6-10.3); Creatinine Clr Calc Pharmacy 113.8 ml/min; Est GFR (African American) 124.2 ml/min; Est GFR (Non-African American) 107.1 ml/min; Globulin 3.2 gm/dl (2.5-4.0); Magnesium 1.9 mg/dl (1.7-2.4); Potassium 3.5 mmol/L (3.5-5.1); Total Protein 6.9 gm/dl (6.0-8.3)
[2022-11-23] MEDS: FUROSEMIDE 20 MG TAB PO SCH (08:50)
[2022-11-23] MEDS: PANTOprazole 40 MG TAB PO SCH (08:51)
[2022-11-23] MEDS: busPIRone 5 MG TAB PO SCH ×2 (08:51→20:11)
[2022-11-23] MEDS: FOLIC ACID 1 MG TAB PO SCH (08:51)
[2022-11-23] MEDS: ursodioL 300 MG CAP PO SCH ×2 (08:51→20:11)
[2022-11-23] MEDS: MULTIVITAMIN TAB PO SCH (08:51)
[2022-11-23] MEDS: SPIRONOLACTONE 25 MG TAB PO SCH (08:51)
[2022-11-23] MEDS: THIAMINE HCL 100 MG TAB PO SCH (08:51)
[2022-11-23] MEDS: FLUTICASONE PROPIONATE NA SPR 16 GM BTL SCH (10:04)
[2022-11-23] MEDS: POTASSIUM CHLORIDE 10 MEQ TABCR PO SCH (10:04)
[2022-11-23] MEDS: GABAPENTIN 600 MG TAB PO SCH (11:04)
--- NOTE | 2022-11-23 17:16 | Hospitalist Progress Note ---
Date of Service November 23, 2022 Assessment & Plan (1) Paresthesia: Plan: Patient is a 47-year-old male with PMH alcohol abuse, alcoholic cirrhosis, ascites, esophageal varices presented to ER with c/o numbness/tingling. Patient states this morning around 10:00 started with right facial numbness, bilateral arm paresthesias and left leg numbness. Generalized paresthesias Likely secondary to alcohol withdrawal --MRI Brain:No evidence of acute intracranial pathology. Minimal nonspecific white matter changes. --Head/Neck CTA: No acute intracranial hemorrhage, evidence of acute territorial infarction, or other acute intracranial disease process. No occlusion, hemodynamically significant stenosis, or dissection in the major cervical arteries. No occlusion, hemodynamically significant stenosis, aneurysm, dissection, or arteriovenous malformation in the major intracranial arteries. 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 Continue Multivitamin, thiamine, folic acid daily Monitor for withdrawal Patient currently not interested in drug rehab placement (3) Hypomagnesemia: Plan: Magnesium: 1.6 Replete electrolytes as needed (4) Cough: Plan: No signs of pneumonia on imaging Nasal congestion, postnasal drip, nonproductive cough, sore throat x3 weeks COVID, influenza, RSV screen negative Procalcitonin not elevated Continue Flonase Resolved (5) Alcoholic cirrhosis of liver: (6) Esophageal varices: Plan: Counseled to quit alcohol use Continue Lasix, spironolactone, nadolol, PPI (7) Abnormal CT of the chest: Plan: Bilateral axillary lymphadenopathy Right adrenal nodule --CTA Chest:Subcentimeter bilateral axillary lymph nodes. 17 mm right adrenal nodule partially visualized, unchanged from prior exam. Needs further work-up as outpatient DVT Px SCDs for now Re: Thrombocytopenia Encouraged to ambulate CODE STATUS Full code Admission and Anticipated Discharge Date Admission Date: November 20, 2022 Subjective Patient is seen and examined at bedside Reports having paresthesias, diaphoresis, anxiety, tremor intermittently No new complaints Cough resolved Denies any chest pain, dyspnea, dizziness, abdominal pain Review of Systems Review of Systems: All systems reviewed & are unremarkable except as noted in Subjective Physical Exam Physical Exam: Physical Exam: Vitals signs as noted above General Appearance:Moderately built and nourished, no apparent distress Head: normocephalic, Atraumatic Eyes: normal inspection, EOMI Neck: supple, Trachea midline Respiratory/Chest: Normal breath sounds, CTA, No accessory muscle use Cardiovascular: S1, S2, No murmur Abdomen/GI:Soft, Non tender, Bowel sounds present Extremities/Musculoskeletal:normal inspection, no edema Neurologic/Psych:AAOX3, grossly no focal neurological deficits Skin: normal color, warm Results & Data Results & Data Vital Signs (Past 12 Hours) Vital Signs Temp Pulse Pulse Resp BP Pulse Ox O2 Del Method 11/23/22 15:45 36.4 C L 55 L 18 124/80 97 Room Air 11/23/22 15:10 62 11/23/22 12:24 36.4 C L 66 18 112/76 94 Room Air 11/23/22 08:57 53 L 11/23/22 07:50 59 L 14 105/73 97 Room Air Laboratory Results Short CBC 11/23/22 Range/Units 05:51 WBC 4.58 L (4.8-10.8) K/ul Hgb 15.2 (14.0-18.0) g/dl Hct 43.4 (42.0-52.0) % Plt Count 95 L (130-400) K/uL BMP 11/23/22 05:51 Sodium 139 Potassium 3.5 Chloride 106 Carbon Dioxide 27 BUN 14 Creatinine 0.76 Glucose 123 H Calcium 8.8 Liver Function 11/23/22 Range/Units 05:51 Total Bilirubin 0.9 D (0.2-1.0) mg/dl AST 48 H (13-39) U/L ALT 57 H (7-52) U/L Alkaline Phosphatase 47 (34-104) U/L Albumin 3.7 (3.4-5.0) gm/dl
[2022-11-23] MEDS: nadoloL 40 MG TAB PO SCH (20:11)
[2022-11-24] MEDS: LORazepam 2 MG/1 ML VIAL IV PRN ×4 (03:32→21:37)
[2022-11-24] MEDS ORDERED: GABAPENTIN 600 MG TAB PO SCH (05:45)
[2022-11-24 06:31] LABS: Hematocrit (blood only) 45.7 % (42.0-52.0); Hemoglobin 15.8 g/dl (14.0-18.0); Mean Corpuscular Hemoglobin 33.7 pg (25.0-34.0); Mean Corpuscular Hgb Conc 34.6 g/dL (32.0-36.0); Mean Corpuscular Volume 97.4 fL (80.0-100.0); Mean Platelet Volume 10.2 fL (9.4-12.4); Platelet Count 107 K/uL (130-400); RDW Coefficient of Variation 13.1 % (11.5-14.5); RDW Standard Deviation 46.5 fL (36.4-46.3); Red Blood Count 4.69 M/uL (4.70-6.10); White Blood Count 7.92 K/ul (4.8-10.8)
[2022-11-24 06:48] LABS: BUN Creatinine Ratio 17.1 (10-20); Calcium 8.8 mg/dl (8.6-10.3); Creatinine Clr Calc Pharmacy 105.4 ml/min; Est GFR (African American) 120.3 ml/min; Est GFR (Non-African American) 103.8 ml/min; Potassium 3.9 mmol/L (3.5-5.1)
[2022-11-24] MEDS: FOLIC ACID 1 MG TAB PO SCH (09:52)
[2022-11-24] MEDS: ursodioL 300 MG CAP PO SCH ×2 (09:52→21:38)
[2022-11-24] MEDS: busPIRone 5 MG TAB PO SCH ×2 (09:52→21:38)
[2022-11-24] MEDS: ACETAMINOPHEN 325 MG TAB PO PRN ×3 (09:52→21:38)
[2022-11-24] MEDS: THIAMINE HCL 100 MG TAB PO SCH (09:53)
[2022-11-24] MEDS: FUROSEMIDE 20 MG TAB PO SCH (09:53)
[2022-11-24] MEDS: PANTOprazole 40 MG TAB PO SCH (09:53)
[2022-11-24] MEDS: SPIRONOLACTONE 25 MG TAB PO SCH (09:53)
[2022-11-24] MEDS: MULTIVITAMIN TAB PO SCH (09:53)
[2022-11-24] MEDS: POTASSIUM CHLORIDE 10 MEQ TABCR PO SCH (09:53)
[2022-11-24] MEDS: FLUTICASONE PROPIONATE NA SPR 16 GM BTL SCH (09:53)
--- NOTE | 2022-11-24 16:21 | Hospitalist Progress Note ---
Date of Service November 24, 2022 Assessment & Plan (1) Paresthesia: Plan: Patient is a 47-year-old male with PMH alcohol abuse, alcoholic cirrhosis, ascites, esophageal varices presented to ER with c/o numbness/tingling. Patient states this morning around 10:00 started with right facial numbness, bilateral arm paresthesias and left leg numbness. Generalized paresthesias Likely secondary to alcohol withdrawal --MRI Brain:No evidence of acute intracranial pathology. Minimal nonspecific white matter changes. --Head/Neck CTA: No acute intracranial hemorrhage, evidence of acute territorial infarction, or other acute intracranial disease process. No occlusion, hemodynamically significant stenosis, or dissection in the major cervical arteries. No occlusion, hemodynamically significant stenosis, aneurysm, dissection, or arteriovenous malformation in the major intracranial arteries. 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 Continue Multivitamin, thiamine, folic acid daily Monitor for withdrawal Patient currently not interested in drug rehab placement Likely discharge in next 24 to 48 hours if stable (3) Hypomagnesemia: Plan: Magnesium: 1.6 Replete electrolytes as needed (4) Cough: Plan: No signs of pneumonia on imaging Nasal congestion, postnasal drip, nonproductive cough, sore throat x3 weeks COVID, influenza, RSV screen negative Procalcitonin not elevated Continue Flonase Resolved (5) Alcoholic cirrhosis of liver: (6) Esophageal varices: Plan: Counseled to quit alcohol use Continue Lasix, spironolactone, nadolol, PPI (7) Abnormal CT of the chest: Plan: Bilateral axillary lymphadenopathy Right adrenal nodule --CTA Chest:Subcentimeter bilateral axillary lymph nodes. 17 mm right adrenal nodule partially visualized, unchanged from prior exam. Needs further work-up as outpatient DVT Px SCDs for now Re: Thrombocytopenia Encouraged to ambulate CODE STATUS Full code Admission and Anticipated Discharge Date Admission Date: November 20, 2022 Subjective Patient is seen and examined at bedside States feeling better today Still has minimal intermittent paresthesias, tremor No new complaints Denies any chest pain, dyspnea, dizziness, abdominal pain Review of Systems Review of Systems: All systems reviewed & are unremarkable except as noted in Subjective Physical Exam Physical Exam: Physical Exam: Vitals signs as noted above General Appearance:Moderately built and nourished, no apparent distress Head: normocephalic, Atraumatic Eyes: normal inspection, EOMI Neck: supple, Trachea midline Respiratory/Chest: Normal breath sounds, CTA, No accessory muscle use Cardiovascular: S1, S2, No murmur Abdomen/GI:Soft, Non tender, Bowel sounds present Extremities/Musculoskeletal:normal inspection, no edema Neurologic/Psych:AAOX3, grossly no focal neurological deficits Skin: normal color, warm Results & Data Results & Data Vital Signs (Past 12 Hours) Vital Signs Temp Pulse Pulse Resp BP Pulse Ox O2 Del Method 11/24/22 08:00 66 11/24/22 11:32 36.8 C 86 16 123/77 96 Room Air 11/24/22 07:49 68 15 101/67 93 Room Air Laboratory Results Short CBC 11/24/22 Range/Units 05:55 WBC 7.92 (4.8-10.8) K/ul Hgb 15.8 (14.0-18.0) g/dl Hct 45.7 (42.0-52.0) % Plt Count 107 L (130-400) K/uL BMP 11/24/22 05:55 Sodium 138 Potassium 3.9 Chloride 106 Carbon Dioxide 25 BUN 14 Creatinine 0.82 Glucose 131 H Calcium 8.8
[2022-11-24] MEDS: nadoloL 40 MG TAB PO SCH (21:39)
[2022-11-25 07:56] LABS: Hematocrit (blood only) 45.1 % (42.0-52.0); Hemoglobin 15.2 g/dl (14.0-18.0); Mean Corpuscular Hemoglobin 33.3 pg (25.0-34.0); Mean Corpuscular Hgb Conc 33.7 g/dL (32.0-36.0); Mean Corpuscular Volume 98.7 fL (80.0-100.0); Mean Platelet Volume 10.3 fL (9.4-12.4); Platelet Count 95 K/uL (130-400); RDW Standard Deviation 47.1 fL (36.4-46.3); Red Blood Count 4.57 M/uL (4.70-6.10)
[2022-11-25 08:33] LABS: BUN Creatinine Ratio 15.4 (10-20); Calcium 8.7 mg/dl (8.6-10.3); Est GFR (African American) 114.3 ml/min; Est GFR (Non-African American) 98.6 ml/min; Potassium 3.9 mmol/L (3.5-5.1)
[2022-11-25] MEDS: ursodioL 300 MG CAP PO SCH (10:54)
[2022-11-25] MEDS: busPIRone 5 MG TAB PO SCH (10:54)
[2022-11-25] MEDS: FLUTICASONE PROPIONATE NA SPR 16 GM BTL SCH (10:54)
[2022-11-25] MEDS: FUROSEMIDE 20 MG TAB PO SCH (10:55)
[2022-11-25] MEDS: FOLIC ACID 1 MG TAB PO SCH (10:55)
[2022-11-25] MEDS: MULTIVITAMIN TAB PO SCH (10:55)
[2022-11-25] MEDS: PANTOprazole 40 MG TAB PO SCH (10:55)
[2022-11-25] MEDS: SPIRONOLACTONE 25 MG TAB PO SCH (10:55)
[2022-11-25] MEDS: THIAMINE HCL 100 MG TAB PO SCH (10:56)
[2022-11-25] MEDS: POTASSIUM CHLORIDE 10 MEQ TABCR PO SCH (10:56)
[2022-11-25] MEDS: ACETAMINOPHEN 325 MG TAB PO PRN (12:55)
--- NOTE | 2022-11-25 13:32 | Hospitalist Progress Note ---
Date of Service November 25, 2022 Assessment & Plan (1) Paresthesia: Plan: Patient is a 47-year-old male with PMH alcohol abuse, alcoholic cirrhosis, ascites, esophageal varices presented to ER with c/o numbness/tingling. Patient states this morning around 10:00 started with right facial numbness, bilateral arm paresthesias and left leg numbness. Generalized paresthesias Likely secondary to alcohol withdrawal --MRI Brain:No evidence of acute intracranial pathology. Minimal nonspecific white matter changes. --Head/Neck CTA: No acute intracranial hemorrhage, evidence of acute territorial infarction, or other acute intracranial disease process. No occlusion, hemodynamically significant stenosis, or dissection in the major cervical arteries. No occlusion, hemodynamically significant stenosis, aneurysm, dissection, or arteriovenous malformation in the major intracranial arteries. 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 Continue Multivitamin, thiamine, folic acid daily Monitor for withdrawal Patient not interested in drug rehab placement Plan to discharge home today (3) Hypomagnesemia: Plan: Magnesium: 1.6 Replete electrolytes as needed (4) Cough: Plan: No signs of pneumonia on imaging Nasal congestion, postnasal drip, nonproductive cough, sore throat x3 weeks COVID, influenza, RSV screen negative Procalcitonin not elevated Continue Flonase Resolved (5) Alcoholic cirrhosis of liver: (6) Esophageal varices: Plan: Counseled to quit alcohol use Continue Lasix, spironolactone, nadolol, PPI (7) Abnormal CT of the chest: Plan: Bilateral axillary lymphadenopathy---Reports chronic per patient Right adrenal nodule --CTA Chest:Subcentimeter bilateral axillary lymph nodes. 17 mm right adrenal nodule partially visualized, unchanged from prior exam. Advised further work-up for possible biopsy as outpatient DVT Px SCDs for now Re: Thrombocytopenia Encouraged to ambulate CODE STATUS Full code Admission and Anticipated Discharge Date Admission Date: November 20, 2022 Subjective Patient is seen and examined at bedside Doing much better today No new complaints Paresthesias, tremor much improved Denies any chest pain, dyspnea, dizziness, abdominal pain Plan to discharge home today Patient persistently refuses rehab placement Review of Systems Review of Systems: All systems reviewed & are unremarkable except as noted in Subjective Physical Exam Physical Exam: Physical Exam: Vitals signs as noted above General Appearance:Moderately built and nourished, no apparent distress Head: normocephalic, Atraumatic Eyes: normal inspection, EOMI Neck: supple, Trachea midline Respiratory/Chest: Normal breath sounds, CTA, No accessory muscle use Cardiovascular: S1, S2, No murmur Abdomen/GI:Soft, Non tender, Bowel sounds present Extremities/Musculoskeletal:normal inspection, no edema Neurologic/Psych:AAOX3, grossly no focal neurological deficits Skin: normal color, warm Results & Data Results & Data Vital Signs (Past 12 Hours) Vital Signs Temp Pulse Resp BP Pulse Ox O2 Del Method 11/25/22 08:19 37.2 C 66 17 110/68 96 Room Air 11/25/22 04:00 36.8 C 61 18 120/75 96 Room Air Laboratory Results Short CBC 11/25/22 Range/Units 07:15 WBC 5.10 (4.8-10.8) K/ul Hgb 15.2 (14.0-18.0) g/dl Hct 45.1 (42.0-52.0) % Plt Count 95 L (130-400) K/uL BMP 11/25/22 07:15 Sodium 139 Potassium 3.9 Chloride 106 Carbon Dioxide 28 BUN 14 Creatinine 0.91 Glucose 106 H Calcium 8.7
--- NOTE | 2022-11-25 13:37 | Discharge Summary ---
Date of Service November 25, 2022 Admission HPI Per Admitting Provider Patient is a 47-year-old male with PMH alcohol abuse, alcoholic cirrhosis, ascites, esophageal varices presented to ER with c/o numbness/tingling. Patient states this morning around 10:00 started with right facial numbness, bilateral arm paresthesias and left leg numbness. He states it felt like his right side of face was drooping but is unsure. Upon ER arrival no facial drooping was noted. States past several weeks with blurry vision bilateral eyes. Patient reports prior history alcohol abuse and was abstinent for years however past 3-4 months resumed drinking again and having 10 shots hard liquor daily. He states he wants to quit so past week has started to cut back by drinking a little less each day. States past 2 days having 3oz hard liquor daily. He states for past week since cutting back has had myalgias and does not feel well overall. Also reports tremors and intermittent nausea. History seizure from alcohol withdrawal in past. Patient also reports for the past 3 weeks he has had a sore throat, nonproductive cough, and nasal congestion, postnasal drip. He has not been taking temperature but states initially had some tactile fevers. States tried OTC nasal spray without much relief. He reports his father has similar URI symptoms. Denies any recent travel. Denies Diaphoresis, vomiting, diarrhea, constipation, HEREDIA, dizziness, syncope, neck pain, CP, SOB, orthopnea, palpitations, hemoptysis, otalgia, dysphagia, dysphasia, abdominal pain, increased abdominal girth, paresthesias, extremity weakness, extremity edema, rashes, urinary symptoms. Per outpatient chart review: History biliary colic. Prior evaluation by surgery at [facility] patient not candidate for cholecystectomy secondary to history of cirrhosis, there were plans for possible cholecystostomy drainage in 2019 but his symptoms improved. 05/09/2021: EGD: Scarring lower third of esophagus, no drainable varices seen, normal stomach, normal examined duodenum Admission Exam Per Admitting Provider General: no acute distress, WDWN Head: normocephalic, atraumatic Eyes: PERRL, EOM's intact, conjunctiva non-injected, anicteric ENT: normal inspection external ears, nose, mucous membranes moist Neck: supple, trachea midline Lungs: clear, no respiratory distress, no wheezing/rhonchi/rales CV: RRR, no murmur, no pretibial edema Abd: normal BS, soft, non-tender Ext: no cyanosis, no calf tenderness Neuro: A&O x 3, +tremulous, normal affect, facial sensation is intact and symmetric, face is strong and symmetric, hearing grossly intact, soft palate elevates symmetrically, no dysarthria, shoulder shrug intact, tongue is midline. Strength 5/5 bilateral upper and lower extremities Skin: warm, dry Principal Diagnosis Alcohol withdrawal Paresthesia Bilateral axillary lymphadenopathy Discharge Data Allergies Allergy/AdvReac Type Severity Reaction Status Date / Time aspirin AdvReac Unknown THINS Verified 11/20/22 15:48 BLOOD, NOSE BLEEDS Consultations 11/20/22 16:07 ED Decision to Admit Stat Procedures Performed Laboratory Results WBC 5.10 K/ul (4.8-10.8) 11/25/22 07:15 RBC 4.57 M/uL (4.70-6.10) L 11/25/22 07:15 Hgb 15.2 g/dl (14.0-18.0) 11/25/22 07:15 Hct 45.1 % (42.0-52.0) 11/25/22 07:15 MCV 98.7 fL (80.0-100.0) 11/25/22 07:15 MCH 33.3 pg (25.0-34.0) 11/25/22 07:15 MCHC 33.7 g/dL (32.0-36.0) 11/25/22 07:15 RDW Std Deviation 47.1 fL (36.4-46.3) H 11/25/22 07:15 RDW Coeff of Hang 13.0 % (11.5-14.5) 11/25/22 07:15 Plt Count 95 K/uL (130-400) L 11/25/22 07:15 MPV 10.3 fL (9.4-12.4) 11/25/22 07:15 Immature Gran % (Auto) 0.2 % 11/21/22 06:48 Neut % (Auto) 55.9 % 11/21/22 06:48 Lymph % (Auto) 26.3 % 11/21/22 06:48 [place] % (Auto) 11.9 % 11/21/22 06:48 Eos % (Auto) 5.3 % 11/21/22 06:48 Baso % (Auto) 0.4 % 11/21/22 06:48 Neut # (Auto) 2.52 K/uL (1.40-6.50) 11/21/22 06:48 Lymph # (Auto) 1.19 K/uL (1.20-3.40) L 11/21/22 06:48 [place] # (Auto) 0.54 K/uL (0.11-0.59) 11/21/22 06:48 Eos # (Auto) 0.24 K/uL (0.00-0.50) 11/21/22 06:48 Baso # (Auto) 0.02 K/uL (0.00-0.20) 11/21/22 06:48 Immature Gran # (Auto) 0.01 K/uL (0.01-0.20) 11/21/22 06:48 PT 13.0 Seconds (9.0-12.0) H 11/20/22 14:07 INR 1.2 (0.9-1.1) H 11/20/22 14:07 APTT 28.7 Seconds (21.0-31.0) 11/20/22 14:07 PTT Ratio 1.0 11/20/22 14:07 Sodium 139 mmol/L (136-145) 11/25/22 07:15 Potassium 3.9 mmol/L (3.5-5.1) 11/25/22 07:15 Chloride 106 mmol/L (98-107) 11/25/22 07:15 Carbon Dioxide 28 mmol/L (21-32) 11/25/22 07:15 Anion Gap 5 (3-11) 11/25/22 07:15 BUN 14 mg/dl (6-23) 11/25/22 07:15 Creatinine 0.91 mg/dl (0.6-1.4) 11/25/22 07:15 Est Cr Clr Drug Dosing 95.0 ml/min 11/25/22 07:15 Est GFR ( Amer) 114.3 ml/min 11/25/22 07:15 Est GFR (Non-Af Amer) 98.6 ml/min 11/25/22 07:15 BUN/Creatinine Ratio 15.4 (10-20) 11/25/22 07:15 Glucose 106 mg/dl (70-99(Fasting)) H 11/25/22 07:15 Estimat Average Glucose 108 mg/dl 11/21/22 06:48 Hemoglobin A1c 5.4 % (4.5-5.6) 11/21/22 06:48 Calcium 8.7 mg/dl (8.6-10.3) 11/25/22 07:15 Phosphorus 4.3 mg/dl (2.5-4.9) D 11/21/22 06:48 Magnesium 1.9 mg/dl (1.7-2.4) 11/23/22 05:51 Total Bilirubin 0.9 mg/dl (0.2-1.0) D 11/23/22 05:51 Direct Bilirubin 0.2 mg/dl (0-0.2) 11/20/22 14:08 AST 48 U/L (13-39) H 11/23/22 05:51 ALT 57 U/L (7-52) H 11/23/22 05:51 Alkaline Phosphatase 47 U/L (34-104) 11/23/22 05:51 Ammonia 25.0 umol/L (18-72) 11/21/22 06:48 Troponin I High Sens 3.3 pg/ml (0-20) 11/20/22 23:34 Total Protein 6.9 gm/dl (6.0-8.3) 11/23/22 05:51 Albumin 3.7 gm/dl (3.4-5.0) 11/23/22 05:51 Globulin 3.2 gm/dl (2.5-4.0) 11/23/22 05:51 Albumin/Globulin Ratio 1.2 (0.9-2) 11/23/22 05:51 Triglycerides 113 mg/dl (0-150) 11/21/22 06:48 Cholesterol 150 mg/dl (0-200) 11/21/22 06:48 LDL Cholesterol, Calc 66 mg/dl 11/21/22 06:48 VLDL Cholesterol, Calc 23 mg/dl (0-30) 11/21/22 06:48 HDL Cholesterol 61 mg/dl 11/21/22 06:48 Cholesterol/HDL Ratio 2.5 (0-5) 11/21/22 06:48 Vitamin B12 322 pg/ml (180-914) 11/22/22 08:04 Procalcitonin < 0.05 ng/ml (0-0.5) 11/20/22 14:08 TSH 1.701 uIu/ml (0.300-4.500) 11/20/22 12:53 Urine Opiates Screen Neg (Neg) 11/21/22 Unknown Ur Methadone, Qual Neg (Neg) 11/21/22 Unknown Urine Barbiturates Neg (Neg) 11/21/22 Unknown Ur Phencyclidine (PCP) Neg (Neg) 11/21/22 Unknown U Amphetamin/Meth Scrn Neg (Neg) 11/21/22 Unknown MDMA (Ecstasy) Screen Neg (Neg) 11/21/22 Unknown U Benzodiazepines Scrn Neg (Neg) 11/21/22 Unknown Ur Cocaine Metabolite Neg (Neg) 11/21/22 Unknown U Marijuana (THC) Screen Neg (Neg) 11/21/22 Unknown Ethyl Alcohol mg/dL 41.1 mg/dl (<10.0) H 11/20/22 14:08 Lyme Disease IgG Ab Negative (Negative) 11/20/22 12:53 Lyme Disease IgM Ab Negative (Negative) 11/20/22 12:53 SARS-CoV-2 (PCR) NEGATIVE (Negative) 11/20/22 12:28 Influenza Type A (PCR) Negative (Neg) 11/20/22 12:28 Influenza Type B (PCR) Negative (Neg) 11/20/22 12:28 RSV (RT-PCR) Negative (Neg) 11/20/22 12:28 Impressions Chest X-Ray 11/20/22 12:30 XR chest 1V portable HISTORY: 47 years-old Male stroke alert acute stroke like symptoms COMPARISON: 11/14/2022 TECHNIQUE: AP view of the chest FINDINGS: Cardiac silhouette is enlarged. There is a new right infrahilar opacity favoring atelectasis. No pneumothorax, pleural effusion or airspace consolidation. Bones appear grossly intact. IMPRESSION: Mild right infrahilar atelectasis. ACT 112: Negative or not required by law. The above report was generated using voice recognition software. It may contain grammatical, syntax or spelling errors. Electronically signed by: Jhonny Fletcher M.D. 11/20/2022 1:[address] 11/20/22 12:30 CT angio neck with con, CT angio head w con, CT head/brain wo con CLINICAL HISTORY: R face, bilateral arm numbness TECHNIQUE: Contiguous axial CT images of the head were acquired from the base of the skull to the vertex without intravenous contrast administration. CT angiography of the head and neck was performed following intravenous administration of iodinated contrast. Coronal and sagittal MIPS were obtained from the axial data set and were submitted for review. Automated dose lowering techniques and/or adjustment according to patient size were utilized for this examination. All measurements were calculated based on NASCET criteria. CT DOSE: 1724.18 mGy.cm Comparison: None available at the time of this dictation. FINDINGS: CT head: There is no acute intracranial hemorrhage or evidence of acute ter ritorial infarction. No shift of the midline structures, mass effect, or extra- axial abnormalities are shown. Lungs and soft tissues are unremarkable. CTA Neck: A 3 vessel aortic arch is shown. There is no significant atherosclerotic plaque in the aortic arch or the origins of the innominate, left common carotid, and left subclavian arteries. The common carotid, external carotid, cervical segments of the internal carotid arteries, and the cervical segments of the vertebral arteries are patent without hemodynamically significant stenosis. The left vertebral artery is dominant. CTA Head: The anterior and posterior cerebral circulations are patent. origin of the left posterior cerebral artery is seen. IMPRESSION: 1. No acute intracranial hemorrhage, evidence of acute territorial infarction, or other acute intracranial disease process. 2. No occlusion, hemodynamically significant stenosis, or dissection in the major cervical arteries. 3. No occlusion, hemodynamically significant stenosis, aneurysm, dissection, or arteriovenous malformation in the major intracranial arteries. Assessment of stenosis of the internal carotid arteries is based on NASCET criteria. ACT 112: Negative or not required by law. Electronically signed by: Darrel Haney M.D. 11/20/2022 3:08 PM Head CTA 11/20/22 13:06 CT angio neck with con, CT angio head w con, CT head/brain wo con CLINICAL HISTORY: R face, bilateral arm numbness TECHNIQUE: Contiguous axial CT images of the head were acquired from the base of the skull to the vertex without intravenous contrast administration. CT angiography of the head and neck was performed following intravenous administration of iodinated contrast. Coronal and sagittal MIPS were obtained from the axial data set and were submitted for review. Automated dose lowering techniques and/or adjustment according to patient size were utilized for this examination. All measurements were calculated based on NASCET criteria. CT DOSE: 1724.18 mGy.cm Comparison: None available at the time of this dictation. FINDINGS: CT head: There is no acute intracranial hemorrhage or evidence of acute territorial infarction. No shift of the midline structures, mass effect, or extra-axial abnormalities are shown. Lungs and soft tissues are unremarkable. CTA Neck: A 3 vessel aortic arch is shown. There is no significant atherosclerotic plaque in the aortic arch or the origins of the innominate, left common carotid, and left subclavian arteries. The common carotid, external carotid, cervical segments of the internal carotid arteries, and the cervical segments of the vertebral arteries are patent without hemodynamically significant stenosis. The left vertebral artery is dominant. CTA Head: The anterior and posterior cerebral circulations are patent. origin of the left posterior cerebral artery is seen. IMPRESSION: 1. No acute intracranial hemorrhage, evidence of acute territorial infarction, or other acute intracranial disease process. 2. No occlusion, hemodynamically significant stenosis, or dissection in the major cervical arteries. 3. No occlusion, hemodynamically significant stenosis, aneurysm, dissection, or arteriovenous malformation in the major intracranial arteries. Assessment of stenosis of the internal carotid arteries is based on NASCET criteria. ACT 112: Negative or not required by law. Electronically signed by: Darrel Haney M.D. 11/20/2022 3:08 PM Neck CTA 11/20/22 13:06 CT angio neck with con, CT angio head w con, CT head/brain wo con CLINICAL HISTORY: R face, bilateral arm numbness TECHNIQUE: Contiguous axial CT images of the head were acquired from the base of the skull to the vertex without intravenous contrast administration. CT angiography of the head and neck was performed following intravenous administration of iodinated contrast. Coronal and sagittal MIPS were obtained from the axial data set and were submitted for review. Automated dose lowering techniques and/or adjustment according to patient size were utilized for this examination. All measurements were calculated based on NASCET criteria. CT DOSE: 1724.18 mGy.cm Comparison: None available at the time of this dictation. FINDINGS: CT head: There is no acute intracranial hemorrhage or evidence of acute territorial infarction. No shift of the midline structures, mass effect, or extra-axial abnormalities are shown. Lungs and soft tissues are unremarkable. CTA Neck: A 3 vessel aortic arch is shown. There is no significant atherosclerotic plaque in the aortic arch or the origins of the innominate, left common carotid, and left subclavian arteries. The common carotid, external carotid, cervical segments of the internal carotid arteries, and the cervical segments of the vertebral arteries are patent without hemodynamically significant stenosis. The left vertebral artery is dominant. CTA Head: The anterior and posterior cerebral circulations are patent. origin of the left posterior cerebral artery is seen. IMPRESSION: 1. No acute intracranial hemorrhage, evidence of acute territorial infarction, or other acute intracranial disease process. 2. No occlusion, hemodynamically significant stenosis, or dissection in the major cervical arteries. 3. No occlusion, hemodynamically significant stenosis, aneurysm, dissection, or arteriovenous malformation in the major intracranial arteries. Assessment of stenosis of the internal carotid arteries is based on NASCET criteria. ACT 112: Negative or not required by law. Electronically signed by: Darrel Haney M.D. 11/20/2022 3:08 PM Chest CTA 11/20/22 13:44 CT angio chest PE protocol CLINICAL HISTORY: Cough, sob, r/o PE TECHNIQUE: Multidetector row helical CT of the chest was performed with angiographic protocol. Coronal and sagittal reformations were obtained. Coronal and sagittal MIPS were obtained from the axial data set and were submitted for review. Automated dose lowering techniques and/or adjustment according to patient size were utilized for this exam. Comparison: Comparison is made to chest radiograph 11/20/2022 FINDINGS: Lungs and pleura: Normal. Heart and pericardium: Heart size is normal. No pericardial effusion. Vessels: No evidence of pulmonary embolism. Mediastinum and manuel: Unremarkable. Chest wall and lower neck: Gynecomastia is noted bilaterally. There are axillary lymph nodes measuring up to 8 mm. Left axillary nodes measure up to 6 mm. Abdomen: Cirrhosis and hepatic steatosis partially visualized. There is a 17 mm right adrenal nodule, unchanged from prior dedicated CT abdomen pelvis. Bones: Degenerative changes in the thoracic spine. IMPRESSION: 1. No acute abnormality and in particular no evidence of pulmonary embolus. 2. Subcentimeter bilateral axillary lymph nodes. 3. Partial visualization of cirrhosis. 17 mm right adrenal nodule partially visualized, unchanged from prior exam. ACT 112: Negative or not required by law. Electronically signed by: Darrel Haney M.D. 11/20/2022 3:02 PM Brain MRI 11/20/22 20:39 Exam(s): MRI HEAD Without Contrast EXAM: MR Head Without Intravenous Contrast CLINICAL HISTORY: Reason for exam: r/o stroke. TECHNIQUE: Magnetic resonance images of the head/brain without intravenous contrast in multiple planes. COMPARISON: Comparison made to prior noncontrast head CT from November 20, 2022. FINDINGS: Brain: Minimal nonspecific white matter changes. No mass. No hemorrhage. No acute infarct. Ventricles: Unremarkable. No ventriculomegaly. Bones/joints: Unremarkable. Sinuses: Unremarkable as visualized. No acute sinusitis. Mastoid air cells: Unremarkable as visualized. No mastoid effusion. Orbits: Unremarkable as visualized. IMPRESSION: No evidence of acute intracranial pathology. Minimal nonspecific white matter changes. Electronically signed by: Megan Villanueva MD 11/21/22 00:46 AM Liver Ultrasound 11/20/22 21:03 ABDOMINAL ULTRASOUND, RIGHT UPPER QUADRANT HISTORY: cirrhosis, chronic cholecystitis. COMPARISON: Abdomen and pelvis CT 11/14/2022. Abdominal ultrasound 07/09/2019. FINDINGS: Pancreas: The pancreatic head and tail are obscured by overlying bowel gas. The remaining portions of the pancreas are within normal limits. Liver: Nodular contour to the liver with a coarsened echotexture consistent with cirrhosis. The main portal vein appears patent. No hepatic masses. Gallbladder: A 1.2 cm stone versus sludge ball again noted within the gallbladder. No gallbladder wall thickening. Negative sonographic Curry sign. CBD: 4 mm. Right kidney: No hydronephrosis. IMPRESSION: 1. A 1.2 cm stone versus sludge ball again noted within the gallbladder. No gallbladder wall thickening. 2. Cirrhotic liver. ACT 112: Negative or not required by law. Electronically signed by: Naresh Hayes M.D. 11/21/2022 7:47 AM Ordered Studies 11/20/22 12:30 CT head/brain wo con Stat 11/20/22 13:06 CT angio head w con Stat CT angio neck with con Stat 11/20/22 13:44 CT angio chest PE protocol Stat 11/20/22 20:39 MR brain wo con Routine 11/20/22 21:03 US liver Routine Hospital Course (1) Paresthesia: Patient is a 47-year-old male with PMH alcohol abuse, alcoholic cirrhosis, ascites, esophageal varices presented to ER with c/o numbness/tingling. Patient states this morning around 10:00 started with right facial numbness, bilateral arm paresthesias and left leg numbness. Generalized paresthesias Likely secondary to alcohol withdrawal --MRI Brain:No evidence of acute intracranial pathology. Minimal nonspecific white matter changes. --Head/Neck CTA: No acute intracranial hemorrhage, evidence of acute territorial infarction, or other acute intracranial disease process. No occlusion, hemodynamically significant stenosis, or dissection in the major cervical arteries. No occlusion, hemodynamically significant stenosis, aneurysm, dissection, or arteriovenous malformation in the major intracranial arteries. -No focal deficits on exam -Normal TSH, B12 -Tox screen negative other than alcohol level 41 -Lyme screen negative -HbA1c 5.4 Improved Advised to follow up with neurology follow-up as outpatient for possible EMG if symptoms persistent/worsens (2) Alcohol withdrawal: EtOH level: 41 Drinking 10 ounces hard liquor daily, started to cut back for the past week + Tremors Continue Alcohol withdrawal protocol with gabapentin, Ativan Agent [employer] to quit alcohol use Continue Multivitamin, thiamine, folic acid daily Monitor for withdrawal Patient not interested in drug rehab placement Plan to discharge home today (3) Hypomagnesemia: Magnesium: 1.6 Replete electrolytes as needed (4) Cough: No signs of pneumonia on imaging Nasal congestion, postnasal drip, nonproductive cough, sore throat x3 weeks COVID, influenza, RSV screen negative Procalcitonin not elevated Continue Flonase Resolved (5) Alcoholic cirrhosis of liver: (6) Esophageal varices: Counseled to quit alcohol use Continue Lasix, spironolactone, nadolol, PPI (7) Abnormal CT of the chest: Bilateral axillary lymphadenopathy---Reports chronic per patient Right adrenal nodule --CTA Chest:Subcentimeter bilateral axillary lymph nodes. 17 mm right adrenal nodule partially visualized, unchanged from prior exam. Advised further work-up for possible biopsy as outpatient DVT Px SCDs for now Re: Thrombocytopenia Encouraged to ambulate CODE STATUS Full code Total Time Total Time Spent Total Time Spent (In Minutes): 56 minutes Discharge Plan Discharge Items Patient Disposition: Home - Self-Care Reason For Visit: ETOH WITHDRAWAL Discharge Diagnosis: Alcohol withdrawal Paresthesia Bilateral axillary lymphadenopathy Activity: Per Instructions section Exercise/Sports: Gradually increase as tolerated Non-emergency contact: Primary Care Provider Call non-emergency contact if: you have any medication questions, your symptoms worsen, your pain is concerning for you and you have a fever Follow-up/Referrals: Michelle Borrego, [Primary Care Provider] - (Date & Time 11/28/2022 3:00 PM Provider Allan Lepe MD Department Family Medicine [facility] ) Diet: Regular Addtl Attending Provider Instructions: Follow-up with your primary care physician on 11/28/2022 3:00 PM Consider following with a neurologist for possible EMG as outpatient if your numbness continue to persist --- Quit drinking alcohol as advised --- Get further work-up/possible lymph node biopsy as recommended to evaluate your axillary lymph node enlargement Seek immediate medical attention if your symptoms reoccur or worsen Please take all medications as instructed on discharge list below. Please call if you have any questions or problems. You can reach a [facility] hospitalist on duty at [facility] 24 hours a day by calling [phone] Pending Studies at Discharge: No Stand-Alone Forms: My [facility], Smoking Cessation Medications and DC Order Prescriptions: New thiamine HCl (vitamin B1) 100 mg Tablet 100 mg PO QAM Qty: 30 0RF Continued buspirone 5 mg Tablet 5 mg PO BID potassium chloride 10 mEq Tablet Extended Release 10 meq PO QAM nadolol 20 mg Tablet 20 mg PO HS ursodiol 300 mg Capsule 300 mg PO BID folic acid 1 mg Tablet 1 mg PO QAM zolpidem [Ambien] 5 mg Tablet 5 mg PO HS PRN (Reason: Sleep) pantoprazole 20 mg tablet,delayed release (DR/EC) 20 mg PO QAM spironolactone 25 mg tablet 25 mg PO QAM furosemide 20 mg tablet 20 mg PO QAM Discharge Orders: Discharge Order (Routine); Ordered 11/25/22 Ordered By: Carlin Bess Admission Data Admit Date/Time: 11/20/22 17:13 Attending Provider: Carlin Bess Admit Provider: Clair Villasenor Primary Care Provider: Michelle Borrego Other Providers: Clair Villasenor
== END 2022-11-25 14:39 | disposition home or self-care (01) | DRG 897 ==
LOC: ED 12:18 → SUATTDRO 17:13 → EDINP 17:13 → 2S 20:40 → 2W 11-22 18:27

== ENCOUNTER 2023-01-12 15:38 | Inpatient (IN) ==
--- NOTE | 2023-01-12 17:14 | Emergency Department Note ---
Impression & Plan Alcohol withdrawal, Alcoholic cirrhosis of liver, Hypokalemia ED Provider Note NAME: ANDREA ADAME AGE: 47 SEX: M : 1975 ARRIVES VIA: Walk-In INFORMANT: Patient, ED PROVIDER(S): Ryan Dong MD CHIEF COMPLAINT: Alcohol withdrawal MEDICAL DECISION MAKING: Patient presents due to concern for alcohol withdrawal related symptoms. IV was established and blood work is obtained the patient was ordered p.o. Librium as well as IV Ativan and a banana bag. Patient's blood work shows a normal white counts H&H with mild thrombocytopenia. The patient has had lower platelet count in the past. Hypokalemia noted at 3.1. Mag was added. Coags also added. After discussion with the patient the patient would prefer inpatient detox subtle things unreasonable as the patient has required multiple days of treatment in the past. I did speak with the on- call hospitalist Dr. Villasenor and the patient was admitted to the medicine service. Discussion w/ other healthcare providers: Dr. Villasenor [facility] inpatient medicine Prior /Outside records reviewed: I reviewed a discharge summary from December 12, [address] Robles. Known history of chronic alcohol abuse alcoholic cirrhosis ascites esophageal varices and biliary colic gallstone pancreatitis that presented due to concern for alcohol withdrawal. Patient was treated at that time. Differential diagnosis: Infection, dehydration, metabolic abnormality, hypo/hyperglycemia, electrolyte imbalance, anemia, UTI, pneumonia, thyroid dysfunction among others were conside red. Diagnostics, as interpreted by me: ECG:Normal sinus rhythm, rate of 68, normal intervals, normal axis T wave inversion anteriorly without ST elevations. Cardiac monitoring: An order was placed for continuous cardiac monitoring. The monitor shows a rate of 72 with sinus rhythm. Patient was placed on pulse oximetry Medical decision rules: None Imaging studies: I informally interpreted the patient's chest x-ray which does not show obvious pneumothorax with formal report to follow. HPI: Patient presents due to concern for possible alcohol withdrawal. The patient states that he last drank around 5 PM yesterday but seem to be developing some tremors this morning and drink. The patient typically drinks about a ounces of tequila daily. Patient has had periods of sobriety but ever since last January the patient has been having periods of drinking and abstinence. Patient denies any drug use. He does chew tobacco. The patient does complain of some chest pain that is centralized nonradiating nonexertional. The patient's had some nausea but no vomiting. No fevers or chills PAST MEDICAL HISTORY: See Below PAST SURGICAL HISTORY: See Below SOCIAL HISTORY: See Below HOME MEDICATIONS: See Below ALLERGIES: See Below VITALS: See Below PHYSICAL EXAMINATION: GENERAL: Mildly anxious but nontoxic in appearance EYE EXAM: Normal conjunctiva. PERRL, no anisocoria and EOM's grossly intact w/o pain. OROPHARYNX: Dry mucus membranes, grossly normal dentition. Tongue f asciculations noted. NECK: Supple, no nuchal rigidity, no adenopathy, non-tender. No signs of mening ismus. FROM of the neck with good chin to chest and neck extension. No stridor. LUNGS: Clear to auscultation. Normal chest wall mechanics. HEART: NSR, no MRG. ABDOMEN: Abdomen soft, nontender, umbilical hernia which is reducible, no masses, no rebound or guarding. BACK: No CVA TTP. SKIN: No rashes and no bruising. UPPER EXTREMITIES: Upper extremities are grossly normal. Mild tremors of the bilateral upper extremities. LOWER EXTREMITIES: Grossly normal, no edema. NEURO EXAM: A&O x3, cranial nerves II-XII grossly intact, normal speech, moves all 4 extremities. Past Med/Surg History Medical History Alcoholic cirrhosis of liver Esophageal varices History of alcohol abuse History of macrocytic anemia Portal hypertension Surgical History History of esophagogastroduodenoscopy (EGD) Including procedures for esophageal varices banding History of tonsillectomy Family History Mother Diabetes Father Prostate cancer Other No family history of adverse response to anesthesia Social History Smoking Status: Never smoker Tobacco Type: Smokeless Tobacco (Dip or Chew) Second Hand Exposure: No; Do You Dip or Chew Tobacco: Yes; Tobacco Cessation Education Requested by Patient: No Hx Alcohol Use: Yes Alcohol type: beer Hx Substance Use: No Preferred Language: Liberian Communication Ability: Effective Tax Accountant Required: No Beliefs That Will Affect Care: None Current Living Situation: Alone Current Living Situation Comment: lives with parents Other Information That Helps Us Care for You: No Feels Safe at Home: Yes Safety Concerns: Feels Safe At This Time Assistive Devices: None Allergies Allergies Allergy/AdvReac Type Severity Reaction Status Date / Time aspirin AdvReac Unknown THINS Verified 01/12/23 19:56 BLOOD, NOSE BLEEDS Home Meds Home Medications Medication Instructions Recorded Confirmed buspirone 5 mg tablet 5 mg PO BID 06/10/18 01/12/23 folic acid 1 mg tablet 1 mg PO QAM 06/10/18 01/12/23 nadolol 20 mg tablet 20 mg PO HS 06/10/18 01/12/23 potassium chloride 10 mEq 10 meq PO QAM 06/10/18 01/12/23 tablet,extended release ursodiol 300 mg capsule 300 mg PO BID 06/10/18 01/12/23 zolpidem 5 mg tablet (Ambien) 5 mg PO HS PRN Sleep 06/10/18 01/12/23 pantoprazole 20 mg tablet,delayed 20 mg PO QAM 07/09/19 01/12/23 release furosemide 20 mg tablet 20 mg PO QAM 11/14/22 01/12/23 spironolactone 25 mg tablet 25 mg PO QAM 11/14/22 01/12/23 Results & Data (ED) Vital Signs Vital Signs - 24 hr 01/12/23 16:08 01/12/23 17:05 Temperature 36.6 C Temperature Source Temporal Artery Scan Pulse Rate 91 H Pulse Rate [Right Radial] 95 H Respiratory Rate 18 20 Respiratory Effort / Characteristics Non-Labored Spontaneous Respiratory Depth Normal Respiratory Pattern Regular Blood Pressure 132/85 Blood Pressure [Right Arm] 140/88 Blood Pressure Mean 100 Blood Pressure Mean [Right Arm] 105 Pulse Oximetry 95 98 Oxygen Delivery Method Room Air Room Air Sepsis Recent Fever Within 48 Hours No Sepsis New/Unexplained Change in Mental Status No Sepsis Action Taken by Nursing Adv Provider Prev Notifie Home Medications Current Medication List: was personally reviewed by me Laboratory Data Attestation: I reviewed the patient's lab results. 01/13/23 04:30 01/13/23 04:30 Lab Results 01/12/23 01/12/23 01/12/23 Range/Units 17:10 17:10 17:10 WBC 6.69 (4.8-10.8) K/ul RBC 5.04 (4.70-6.10) M/uL Hgb 17.3 (14.0-18.0) g/dl Hct 47.6 (42.0-52.0) % MCV 94.4 (80.0-100.0) fL MCH 34.3 H (25.0-34.0) pg MCHC 36.3 H (32.0-36.0) g/dL RDW Std Deviation 44.6 (36.4-46.3) fL RDW Coeff of Hang 12.9 (11.5-14.5) % Plt Count 119 L (130-400) K/uL MPV 10.0 (9.4-12.4) fL Immature Gran % (Auto) 0.3 % Neut % (Auto) 55.5 % Lymph % (Auto) 24.1 % [place] % (Auto) 16.9 % Eos % (Auto) 2.5 % Baso % (Auto) 0.7 % Neut # (Auto) 3.71 (1.40-6.50) K/uL Lymph # (Auto) 1.61 (1.20-3.40) K/uL [place] # (Auto) 1.13 H (0.11-0.59) K/uL Eos # (Auto) 0.17 (0.00-0.50) K/uL Baso # (Auto) 0.05 (0.00-0.20) K/uL Immature Gran # (Auto) 0.02 (0.01-0.20) K/uL PT (9.0-12.0) Seconds INR (0.9-1.1) APTT (21.0-31.0) Seconds PTT Ratio Sodium 138 (136-145) mmol/L Potassium 3.1 L (3.5-5.1) mmol/L Chloride 102 (98-107) mmol/L Carbon Dioxide 22 (21-32) mmol/L Anion Gap 14 H (3-11) BUN 11 (6-23) mg/dl Creatinine 0.91 (0.6-1.4) mg/dl Est Cr Clr Drug Dosing 103.3 ml/min Est GFR ( Amer) 114.3 ml/min Est GFR (Non-Af Amer) 98.6 ml/min BUN/Creatinine Ratio 12.1 (10-20) Glucose 130 H (70-99(Fasting)) mg/dl Calcium 9.4 (8.6-10.3) mg/dl Magnesium 1.3 L (1.7-2.4) mg/dl Total Bilirubin 1.0 (0.2-1.0) mg/dl AST 70 H (13-39) U/L ALT 76 H (7-52) U/L Alkaline Phosphatase 50 (34-104) U/L Ammonia (18-72) umol/L Troponin I High Sens 4.6 (0-20) pg/ml Total Protein 8.7 H (6.0-8.3) gm/dl Albumin 4.6 (3.4-5.0) gm/dl Globulin 4.1 H (2.5-4.0) gm/dl Albumin/Globulin Ratio 1.1 (0.9-2) Ethyl Alcohol mg/dL 141.3 H (<10.0) mg/dl 01/12/23 01/12/23 Range/Units 17:10 19:32 WBC (4.8-10.8) K/ul RBC (4.70-6.10) M/uL Hgb (14.0-18.0) g/dl Hct (42.0-52.0) % MCV (80.0-100.0) fL MCH (25.0-34.0) pg MCHC (32.0-36.0) g/dL RDW Std Deviation (36.4-46.3) fL RDW Coeff of Hang (11.5-14.5) % Plt Count (130-400) K/uL MPV (9.4-12.4) fL Immature Gran % (Auto) % Neut % (Auto) % Lymph % (Auto) % [place] % (Auto) % Eos % (Auto) % Baso % (Auto) % Neut # (Auto) (1.40-6.50) K/uL Lymph # (Auto) (1.20-3.40) K/uL [place] # (Auto) (0.11-0.59) K/uL Eos # (Auto) (0.00-0.50) K/uL Baso # (Auto) (0.00-0.20) K/uL Immature Gran # (Auto) (0.01-0.20) K/uL PT 12.0 (9.0-12.0) Seconds INR 1.1 (0.9-1.1) APTT 27.7 (21.0-31.0) Seconds PTT Ratio 1.0 Sodium (136-145) mmol/L Potassium (3.5-5.1) mmol/L Chloride (98-107) mmol/L Carbon Dioxide (21-32) mmol/L Anion Gap (3-11) BUN (6-23) mg/dl Creatinine (0.6-1.4) mg/dl Est Cr Clr Drug Dosing ml/min Est GFR ( Amer) ml/min Est GFR (Non-Af Amer) ml/min BUN/Creatinine Ratio (10-20) Glucose (70-99(Fasting)) mg/dl Calcium (8.6-10.3) mg/dl Magnesium (1.7-2.4) mg/dl Total Bilirubin (0.2-1.0) mg/dl AST (13-39) U/L ALT (7-52) U/L Alkaline Phosphatase (34-104) U/L Ammonia 24.0 (18-72) umol/L Troponin I High Sens (0-20) pg/ml Total Protein (6.0-8.3) gm/dl Albumin (3.4-5.0) gm/dl Globulin (2.5-4.0) gm/dl Albumin/Globulin Ratio (0.9-2) Ethyl Alcohol mg/dL (<10.0) mg/dl Administered Medications Buspirone HCl (Buspirone 5 Mg Tab) 5 mg PO BID LANDRY Stop: 02/11/23 21:16 Last Admin: 01/13/23 20:46 Dose: 5 mg Documented By: Admin: 01/13/23 08:06 Dose: 5 mg Documented By: Admin: 01/12/23 22:34 Dose: 5 mg Documented By: MERVIN Chlordiazepoxide HCl (Chlordiazepoxide Hcl 25 Mg Cap) 25 mg PO Q8H [facility]DRY Stop: 01/14/23 14:01 Last Admin: 01/14/23 06:12 Dose: 25 mg Documented By: Admin: 01/13/23 20:57 Dose: 25 mg Documented By: LILI Citalopram Hydrobromide (Citalopram 20 Mg Tab) [address] [facility] Stop: 02/12/23 08:59 Last Admin: 01/13/23 08:06 Dose: 10 mg Documented By: MARVIN Enoxaparin Sodium (Enoxaparin Inj 40 Mg/0.4 Ml Syr) 40 mg SQ Q24H [facility] Stop: 02/11/23 21:59 Last Admin: 01/13/23 21:36 Dose: 40 mg Documented By: Admin: 01/12/23 22:38 Dose: 40 mg Documented By: MERVIN Folic Acid (Folic Acid 1 Mg Tab) [address] [facility] Stop: 02/12/23 08:59 Last Admin: 01/13/23 08:05 Dose: 1 mg Documented By: MARVIN Furosemide (Furosemide 20 Mg Tab) [address] [facility] Stop: 02/12/23 08:59 Last Admin: 01/13/23 08:05 Dose: 20 mg Documented By: MARVIN Lorazepam (Lorazepam 2 Mg/1 Ml Vial) 1 mg IV UD PRN; Protocol PRN Reason: EtOH Withdrawal AWSS Score 6,7 Stop: 02/12/23 21:20 Last Admin: 01/13/23 23:28 Dose: 1 mg Documented By: LILI Nadolol (Nadolol 40 Mg Tab) 20 mg PO HS [facility] Stop: 02/11/23 21:16 Last Admin: 01/13/23 20:47 Dose: 20 mg Documented By: Admin: 01/12/23 22:34 Dose: 20 mg Documented By: MERVIN Ondansetron HCl (Ondansetron Inj 2 Mg/Ml 2 Ml Vial) 4 mg IV Q6H PRN PRN Reason: Nausea Stop: 02/11/23 21:16 Last Admin: 01/13/23 22:58 Dose: 4 mg Documented By: LILI Pantoprazole Sodium (Pantoprazole 40 Mg Tab) [address] [facility] Stop: 02/12/23 08:59 Last Admin: 01/13/23 08:05 Dose: 40 mg Documented By: MARVIN Potassium Chloride (Potassium Chloride 10 Meq Tabcr) [address] [facility] Stop: 02/12/23 08:59 Last Admin: 01/13/23 08:05 Dose: 10 meq Documented By: MARVIN Spironolactone (Spironolactone 25 Mg Tab) 25 mg PO QAM [facility] Stop: 02/12/23 08:59 Last Admin: 01/13/23 08:05 Dose: 25 mg Documented By: MARVIN Thiamine HCl (Thiamine Hcl 100 Mg Tab) 100 mg PO QAM [facility] Stop: 02/12/23 08:59 Last Admin: 01/13/23 08:09 Dose: 100 mg Documented By: MARVIN Ursodiol (Ursodiol 300 Mg Cap) 300 mg PO BID [facility] Stop: 02/11/23 21:16 Last Admin: 01/13/23 20:47 Dose: 300 mg Documented By: Admin: 01/13/23 08:09 Dose: 300 mg Documented By: Admin: 01/12/23 22:34 Dose: 300 mg Documented By: MERVIN Zolpidem Tartrate (Zolpidem Tartrate 5 Mg Tab) 5 mg PO HS [facility] Stop: 02/11/23 21:16 Last Admin: 01/13/23 20:57 Dose: 5 mg Documented By: Admin: 01/12/23 22:34 Dose: 5 mg Documented By: MERVIN Discontinued Medications Chlordiazepoxide HCl (Chlordiazepoxide Hcl 25 Mg Cap) 50 mg PO NOW ONE Stop: 01/12/23 17:28 Last Admin: 01/12/23 17:43 Dose: 50 mg Documented By: DIAN Chlordiazepoxide HCl (Chlordiazepoxide Hcl 25 Mg Cap) 25 mg PO Q6H [facility] Stop: 01/13/23 16:01 Last Admin: 01/13/23 17:09 Dose: 25 mg Documented By: Admin: 01/13/23 09:54 Dose: 25 mg Documented By: Admin: 01/13/23 03:28 Dose: 25 mg Documented By: Admin: 01/12/23 22:34 Dose: 25 mg Documented By: MERVIN Furosemide (Furosemide Inj 20 Mg/2 Ml Vial) 20 mg IV ONE ONE Stop: 01/12/23 19:29 Last Admin: 01/12/23 20:16 Dose: 20 mg Documented By: MERVIN Multivitamins 10 ml/ Thiamine HCl 100 mg/ Folic Acid 1 mg/Sodium Chloride 1,011.2 mls @ 500 mls/hr IV .Q2H2M ONE Stop: 01/12/23 19:28 Last Infusion: 01/13/23 01:10 Dose: 0 mls/hr Documented By: Admin: 01/12/23 18:14 Dose: 500 mls/hr Documented By: DIAN Magnesium Sulfate/Dextrose (Magnesium Sulfate / D5w) 1 gm in 100 mls @ 50 mls/hr IV Q2H [facility] Stop: 01/13/23 01:59 Last Infusion: 01/13/23 04:40 Dose: 0 mls/hr Documented By: Admin: 01/13/23 02:40 Dose: 50 mls/hr Documented By: Infusion: 01/13/23 01:10 Dose: 0 mls/hr Documented By: Admin: 01/12/23 22:49 Dose: 50 mls/hr Documented By: Infusion: 01/12/23 22:46 Dose: 50 mls/hr Documented By: Admin: 01/12/23 20:46 Dose: 50 mls/hr Documented By: MERVIN Lorazepam (Lorazepam 2 Mg/1 Ml Vial) 1 mg IV NOW STA Stop: 01/12/23 17:28 Last Admin: 01/12/23 17:43 Dose: 1 mg Documented By: DIAN Lorazepam (Lorazepam 2 Mg/1 Ml Vial) 2 mg IV NOW STA Stop: 01/13/23 12:57 Last Admin: 01/13/23 13:06 Dose: 2 mg Documented By: NING Potassium Chloride (Potassium Chloride Crtab 20 Meq Tabcr) 40 meq PO NOW STA Stop: 01/12/23 18:37 Last Admin: 01/12/23 19:03 Dose: 40 meq Documented By: MERVIN Potassium Chloride (Potassium Chloride Crtab 20 Meq Tabcr) 40 meq PO NOW STA Stop: 01/12/23 19:29 Last Admin: 01/12/23 20:16 Dose: 40 meq Documented By: MERVIN Imaging Data Radiologist's Impression: Chest X-Ray 01/12/23 17:27 XR chest 1V portable CLINICAL HISTORY: chest tightness TECHNIQUE: Single frontal radiograph of the chest was obtained. Comparison: Comparison is made to chest radiograph 12/08/2022 FINDINGS: No lines and tubes are seen. The cardiomediastinal silhouette is normal. The lungs are clear. No evidence of pleural effusion or pneumothorax. IMPRESSION: No acute chest disease. ACT 112: Negative or not required by law. Electronically signed by: Andrea Haney M.D. 01/12/2023 6:31 PM Discharge Plan Visit Data Chief Complaint: Alcohol Withdrawal Stated Complaint: ALCOHOL WITHDRAWAL ED Provider: Ryan Dong Discharge Problem: Alcohol withdrawal, Alcoholic cirrhosis of liver, Hypokalemia Patient Disposition: Admitted As Inpatient Discharge Instructions Interventions: ED Discharge Assessment Last Done: 01/13/23 18:19
[2023-01-12] MEDS ORDERED: LORazepam 2 MG/1 ML VIAL IV STA (17:27)
[2023-01-12] MEDS ORDERED: MULTI-VITAMIN INFUSION 10 ML, THIAMINE HCL 100 MG, FOLIC ACID 1 MG in SODIUM CHLORIDE 0... IV ONE (17:27)
[2023-01-12] MEDS ORDERED: Ativan IV Alcohol Withdrawal--Active Protocol IV PRN (17:27)
[2023-01-12] MEDS ORDERED: LORazepam 2 MG/1 ML VIAL IV PRN ×4 (17:27)
[2023-01-12] MEDS ORDERED: chlordiazePOXIDE HCl 25 MG CAP PO ONE (17:27)
[2023-01-12 17:54] LABS: Albumin Level 4.6 gm/dl (3.4-5.0); Calcium 9.4 mg/dl (8.6-10.3); Potassium 3.1 mmol/L (3.5-5.1)
[2023-01-12 17:56] LABS: Basophils # (auto) 0.05 K/uL (0.00-0.20); Basophils % (auto) 0.7 %; Eosinophils # (auto) 0.17 K/uL (0.00-0.50); Eosinophils % (auto) 2.5 %; Hematocrit (blood only) 47.6 % (42.0-52.0); Hemoglobin 17.3 g/dl (14.0-18.0); Immature Granulocytes # (auto) 0.02 K/uL (0.01-0.20); Immature Granulocytes % (auto) 0.3 %; Lymphocytes # (auto) 1.61 K/uL (1.20-3.40); Lymphocytes % (auto) 24.1 %; Mean Corpuscular Hemoglobin 34.3 pg (25.0-34.0); Mean Corpuscular Hgb Conc 36.3 g/dL (32.0-36.0); Mean Corpuscular Volume 94.4 fL (80.0-100.0); Monocytes # (auto) 1.13 K/uL (0.11-0.59); Monocytes % (auto) 16.9 %; Neutrophils # (auto) 3.71 K/uL (1.40-6.50); Neutrophils % (auto) 55.5 %; Platelet Count 119 K/uL (130-400); RDW Coefficient of Variation 12.9 % (11.5-14.5); RDW Standard Deviation 44.6 fL (36.4-46.3); Red Blood Count 5.04 M/uL (4.70-6.10); White Blood Count 6.69 K/ul (4.8-10.8)
[2023-01-12 18:00] LABS: Albumin Globulin Ratio 1.1 (0.9-2); BUN Creatinine Ratio 12.1 (10-20); Creatinine Clr Calc Pharmacy 103.3 ml/min; Est GFR (African American) 114.3 ml/min; Est GFR (Non-African American) 98.6 ml/min; Globulin 4.1 gm/dl (2.5-4.0); Total Protein 8.7 gm/dl (6.0-8.3)
[2023-01-12 18:04] LABS: Troponin I High Sensitivity 4.6 pg/ml (0-20)
--- NOTE | 2023-01-12 18:33 | XRay Report ---
XR chest 1V portable CLINICAL HISTORY: chest tightness TECHNIQUE: Single frontal radiograph of the chest was obtained. Comparison: Comparison is made to chest radiograph 12/08/2022 FINDINGS: No lines and tubes are seen. The cardiomediastinal silhouette is normal. The lungs are clear. No evid ence of pleural effusion or pneumothorax. IMPRESSION: No acute chest disease. ACT 112: Negative or not required by law. Electronically signed by: Darrel Haney M.D. 01/12/2023 6:31 PM
[2023-01-12] MEDS ORDERED: POTASSIUM CHLORIDE CRTAB 20 MEQ TABCR PO STA ×2 (18:36→19:28)
[2023-01-12 18:51] LABS: Magnesium 1.3 mg/dl (1.7-2.4)
[2023-01-12 19:00] LABS: INR 1.1 (0.9-1.1); Partial Thromboplastin Time 27.7 Seconds (21.0-31.0)
[2023-01-12] MEDS ORDERED: FUROSEMIDE INJ 20 MG/2 ML VIAL IV ONE (19:28)
--- NOTE | 2023-01-12 20:02 | History & Physical Report ---
Date of Service January 12, 2023 Assessment & Plan (1) Alcohol withdrawal: (2) Alcoholic cirrhosis of liver: (3) Hypokalemia: (4) Hypomagnesemia: Plan Mr. Darrel Guillory is 47-year-old male with PMH ongoing alcohol abuse c/b decompensated alcoholic cirrhosis with ascites, esophageal varices s/p banding, coagulopathy who is admitted for EtOH withdrawal. Patient reported that he was fearful to return home "too early" and would like to discuss options available for addiction resources. #Acute Alcohol Withdrawal -Patient does report desire to quit, but struggles 2/2 cravings -AWSS with librium taper -Would like to discuss addictions options/referral #Hypomagnesemia #Hypokalemia -Replace IV prn #Cirrhosis 2/2 ETOH, compensated - MELD-Na: 7 on admission - Last EGD 2021 w/o varices (2019 s/p banding_ - PSE: Denies h/o HE, no evidence of HE on exam - Ascites: c/w home Lasix:[place] 20:25 - Thrombocytopenia: stable, INR 1.1 - SBP: no history - EV: No evidence of GIB presently - on protonix daily and nadolol for PPx at home, will continue -Continue to monitor CMP #Prior Cholelithiasis -Unable to undergo cholecystectomy 2/2 cirrhosis -Continue ursodiol 300mg bid #Insomnia #Anxiety -Zolpidem qhs -Buspar 5mg BID -Citalopram qam DVT lovenox Bowel regimen prn Low sodium diet Monitor on tele 2/2 etoh withdrawal Admission and Anticipated Discharge Date Admission Date: Time spent evaluating patient, direct bedside care, chart review, placing orders, interpretation of diagnostic studies, discussion with consultants, patient, and family members, as well as other required patient management activities is 60 minutes. History of Present Illness Chief Complaint: EtOH withdrawal Primary Care Provider: Michelle Borrego DO Mr. Darrel Guillory is 47-year-old male with PMH ongoing alcohol abuse c/b decompensated alcoholic cirrhosis with ascites, esophageal varices s/p banding, coagulopathy who presented to [facility] ED due to EtOH withdrawal. Patient states that his last drink was this afternoon and a couple hours later he noted tremors--prompting visit to ED due to concerns of withdrawal. Patient reports that he is struggling to quit, that he desires to stop, but just "keeps getting more." He notes that he has been drinking since age 10. He denies any history of seizures, hallucinations, nausea, vomiting. He notes that his abdomen as been "full," but it has improved with increased lasix dose. In the ED, vitals were notable for BP of 130-140s, HR 90s, and O2 sat of high 90s on room air. Labs with hypokalemia 3.1, hypomag 1.3, mild LF elevation AST 70, ALT 76 , EtOH 141.3 Imaging revealed stable chest XR EKG sinus tachy ED interventions: banana bag, CIWA protocol, replaced mag/K, sp IV lasix 20mg for ascites Patient to be admitted to med/surg tele secondary to ETOH withdrawal Allergies Allergy/AdvReac Type Severity Reaction Status Date / Time aspirin AdvReac Unknown THINS Verified 01/12/23 19:56 BLOOD, NOSE BLEEDS Home Medications Medication Instructions Recorded Confirmed Type buspirone 5 mg tablet 5 mg PO BID 06/10/18 01/12/23 History folic acid 1 mg tablet 1 mg PO QAM 06/10/18 01/12/23 History nadolol 20 mg tablet 20 mg PO HS 06/10/18 01/12/23 History potassium chloride 10 mEq 10 meq PO QAM 06/10/18 01/12/23 History tablet,extended release ursodiol 300 mg capsule 300 mg PO BID 06/10/18 01/12/23 History zolpidem 5 mg tablet (Ambien) 5 mg PO HS PRN Sleep 06/10/18 01/12/23 History pantoprazole 20 mg tablet,delayed 20 mg PO QAM 07/09/19 01/12/23 History release furosemide 20 mg tablet 20 mg PO QAM 11/14/22 01/12/23 History spironolactone 25 mg tablet 25 mg PO QAM 11/14/22 01/12/23 History Past Med/Surg History Medical History Alcoholic cirrhosis of liver Esophageal varices History of alcohol abuse History of macrocytic anemia Portal hypertension Surgical History History of esophagogastroduodenoscopy (EGD) Including procedures for esophageal varices banding History of tonsillectomy Family History Mother Diabetes Father Prostate cancer Other No family history of adverse response to anesthesia Social History Smoking Status: Never smoker Second Hand Exposure: No; Do You Dip or Chew Tobacco: Yes (1 can every week); Hx Alcohol Use: Yes Alcohol type: hard liquor Hx Substance Use: No Preferred Language: Maldivian Communication Ability: Effective Panel Machine Operator Required: Voice Beliefs That Will Affect Care: None Current Living Situation: Family Current Living Situation Comment: lives with parents Feels Safe at Home: Yes Assistive Devices: None Review of Systems Review of Systems: Constitutional: (-) fever/chills, (-) recent loss of weight, (-) appetite changes, (-) night sweats. Head: (-) headache, (-) dizziness. Eye: (-) blurring of vision, (-) double vision, (-) redness. Ear: (-) hearing loss, (-) discharge, (-) vertigo Nose: (-) discharge, (-) bleeding, (-) congestion, (-) post nasal drip. Throat: (-) sore throat, (-) hoarseness of voice, (-) odynophagia. Cardiovascular: (-) chest pain, (-) palpitations, (-) syncope, (-) orthopnea, (- ) PND, (-) leg swelling. Respiratory: (-) shortness of breath, (-) cough, (-) wheezing, (-) hemoptysis. Neuro: (-) weakness in extremities, (-) numbness, (-) tingling, (++) tremor. Gastrointestinal: (-) belly pain, (-) belly distension, (-) nausea, (-) vomit ing, (-) diarrhea, (-) constipation, (-) hematemesis, (-) hematochezia, (-) bowel incontinence Genitourinary: (-) hematuria, (-) dysuria, (-) polyuria, (-) hesitancy, (-) frequency, (-) urinary incontinence. Musculoskeletal: (-) myalgia, (-) arthralgia. Skin: (-) rashes. Endocrine: (-) heat/cold intolerance. Physical Exam Physical Exam: GENERAL APPEARANCE: AxOx4, anxious gentleman, but conversational, mild tremor bilateral hands HEENT: NC, AT. MMM. EOMI, clear conjunctiva, oropharynx clear. NECK: Supple without lymphadenopathy. HEART: tachycardic LUNGS: CTAB, moving air well. No crackles or wheezes are heard. ABDOMEN: Soft, nontender, mild distention with good bowel sounds heard. BACK: No CVAT, no obvious deformity. EXTREMITIES: Without cyanosis, clubbing or edema. NEUROLOGICAL: Grossly nonfocal. Alert and oriented, moving all 4 extremities. CN not formally tested but appear grossly intact. Results & Data Results & Data Vital Signs (Past 12 Hours) Vital Signs Temp Pulse Pulse Resp BP BP Pulse Ox 01/12/23 17:05 95 H 20 140/88 98 01/12/23 16:08 36.6 C 91 H 18 132/85 95 O2 Del Method 01/12/23 17:05 Room Air 01/12/23 16:08 Room Air Laboratory Results Short CBC 01/12/23 Range/Units 17:10 WBC 6.69 (4.8-10.8) K/ul Hgb 17.3 (14.0-18.0) g/dl Hct 47.6 (42.0-52.0) % Plt Count 119 L (130-400) K/uL BMP 01/12/23 17:10 Sodium 138 Potassium 3.1 L Chloride 102 Carbon Dioxide 22 BUN 11 Creatinine 0.91 Glucose 130 H Calcium 9.4 Liver Function 01/12/23 Range/Units 17:10 Total Bilirubin 1.0 (0.2-1.0) mg/dl AST 70 H (13-39) U/L ALT 76 H (7-52) U/L Alkaline Phosphatase 50 (34-104) U/L Albumin 4.6 (3.4-5.0) gm/dl Diagnostic Findings Chest X-Ray 01/12/23 17:27 XR chest 1V portable CLINICAL HISTORY: chest tightness TECHNIQUE: Single frontal radiograph of the chest was obtained. Comparison: Comparison is made to chest radiograph 12/08/2022 FINDINGS: No lines and tubes are seen. The cardiomediastinal silhouette is normal. The lungs are clear. No evidence of pleural effusion or pneumothorax. IMPRESSION: No acute chest disease. ACT 112: Negative or not required by law. Electronically signed by: Darrel Haney M.D. 01/12/2023 6:31 PM Medications Administered Home Medications Medication Instructions Recorded Confirmed Last Taken buspirone 5 mg tablet 5 mg PO BID 06/10/18 01/12/23 1 Day Ago ~12/07/22 folic acid 1 mg tablet 1 mg PO QAM 06/10/18 01/12/23 1 Day Ago ~12/07/22 nadolol 20 mg tablet 20 mg PO HS 06/10/18 01/12/23 1 Day Ago ~12/07/22 potassium chloride 10 mEq 10 meq PO QAM 06/10/18 01/12/23 1 Day Ago tablet,extended release ~12/07/22 ursodiol 300 mg capsule 300 mg PO BID 06/10/18 01/12/23 1 Day Ago ~12/07/22 zolpidem 5 mg tablet (Ambien) 5 mg PO HS PRN Sleep 06/10/18 01/12/23 1 Day Ago ~12/07/22 pantoprazole 20 mg tablet,delayed 20 mg PO QAM 07/09/19 01/12/23 1 Day Ago release ~12/07/22 furosemide 20 mg tablet 20 mg PO QAM 11/14/22 01/12/23 1 Day Ago ~12/07/22 spironolactone 25 mg tablet 25 mg PO QAM 11/14/22 01/12/23 1 Day Ago ~12/07/22 (1) Alcohol withdrawal Complication of substance-induced condition: uncomplicated Qualified Code(s): F10.930 - Alcohol use, unspecified with withdrawal, uncomplicated (2) Alcoholic cirrhosis of liver Ascites presence: unspecified Qualified Code(s): K70.30 - Alcoholic cirrhosis of liver without ascites
[2023-01-12] MEDS: MAGNESIUM SULFATE / D5W 1 GM/100 ML BAG IV SCH ×2 (20:46→22:49)
[2023-01-12 20:53] LABS: Appearance Urine Clear (Clear); Bacteria Urine Automated Negative (Negative); Bilirubin Urine Negative (Negative); Blood Urine Negative (Negative); Cast Urine Automated 0 /lpf (0-5); Color Urine Yellow; Epithelial Cell Urine Auto 0-5 /lpf (0-5); Glucose Urine UA Negative (Negative); Ketones Urine 1+ (Negative); Leukocyte Esterase Urine Negative (Negative); Nitrite Urine Negative (Negative); Protein Urine Trace (Negative); RBC Urine Automated 0-4 /hpf (0-4); Specific Gravity Urine 1.019 (1.000-1.030); Urobilinogen Urine Negative (Negative); WBC Urine Automated 0 /hpf (0-5)
[2023-01-12] MEDS ORDERED: POLYETHYLENE (MIRALAX) 17 GM PACK PO PRN (21:17)
[2023-01-12] MEDS ORDERED: chlordiazePOXIDE ALCOHOL WITHDRAWL 25MG PO STA (21:17)
[2023-01-12] MEDS ORDERED: ONDANSETRON INJ 2 MG/ML 2 ML VIAL IV PRN (21:17)
[2023-01-12 21:25] LABS: Amphetamines+Metham, Urine Neg (Neg); Barbiturates, Urine Neg (Neg); Benzodiazepine, Urine Pos (Neg); Cocaine, Urine Neg (Neg); MDMA (Ecstacy), Urine Neg (Neg); Methadone, Urine Neg (Neg); Opiate, Urine Neg (Neg); Phencyclidine, Urine Neg (Neg)
[2023-01-12] MEDS: busPIRone 5 MG TAB PO SCH (22:34)
[2023-01-12] MEDS: chlordiazePOXIDE HCl 25 MG CAP PO SCH (22:34)
[2023-01-12] MEDS: ZOLPIDEM TARTRATE 5 MG TAB PO SCH (22:34)
[2023-01-12] MEDS: nadoloL 40 MG TAB PO SCH (22:34)
[2023-01-12] MEDS: ursodioL 300 MG CAP PO SCH (22:34)
[2023-01-12] MEDS: ENOXAPARIN INJ 40 MG/0.4 ML SYR SQ SCH (22:38)
[2023-01-13] MEDS: MAGNESIUM SULFATE / D5W 1 GM/100 ML BAG IV SCH (02:40)
[2023-01-13] MEDS: chlordiazePOXIDE HCl 25 MG CAP PO SCH ×4 (03:28→20:57)
[2023-01-13 05:32] LABS: INR 1.1 (0.9-1.1); Prothrombin Time 12.4 Seconds (9.0-12.0)
[2023-01-13 05:34] LABS: Albumin Globulin Ratio 1.2 (0.9-2); Albumin Level 3.8 gm/dl (3.4-5.0); BUN Creatinine Ratio 17.1 (10-20); Bilirubin,Total 1.4 mg/dl (0.2-1.0); Calcium 8.5 mg/dl (8.6-10.3); Creatinine Clr Calc Pharmacy 114.6 ml/min; Est GFR (African American) 120.3 ml/min; Est GFR (Non-African American) 103.8 ml/min; Globulin 3.3 gm/dl (2.5-4.0); Magnesium 2.5 mg/dl (1.7-2.4); Phosphorus 3.4 mg/dl (2.5-4.9); Potassium 3.8 mmol/L (3.5-5.1); Total Protein 7.1 gm/dl (6.0-8.3)
[2023-01-13 05:38] LABS: Hematocrit (blood only) 44.1 % (42.0-52.0); Hemoglobin 15.3 g/dl (14.0-18.0); Mean Corpuscular Hemoglobin 33.5 pg (25.0-34.0); Mean Corpuscular Hgb Conc 34.7 g/dL (32.0-36.0); Mean Corpuscular Volume 96.5 fL (80.0-100.0); Mean Platelet Volume 10.4 fL (9.4-12.4); Platelet Count 105 K/uL (130-400); RDW Coefficient of Variation 12.9 % (11.5-14.5); RDW Standard Deviation 45.2 fL (36.4-46.3); Red Blood Count 4.57 M/uL (4.70-6.10); White Blood Count 4.58 K/ul (4.8-10.8)
[2023-01-13] MEDS: FUROSEMIDE 20 MG TAB PO SCH (08:05)
[2023-01-13] MEDS: SPIRONOLACTONE 25 MG TAB PO SCH (08:05)
[2023-01-13] MEDS: PANTOprazole 40 MG TAB PO SCH (08:05)
[2023-01-13] MEDS: POTASSIUM CHLORIDE 10 MEQ TABCR PO SCH (08:05)
[2023-01-13] MEDS: FOLIC ACID 1 MG TAB PO SCH (08:05)
[2023-01-13] MEDS: CITALOPRAM 20 MG TAB PO SCH (08:06)
[2023-01-13] MEDS: busPIRone 5 MG TAB PO SCH ×2 (08:06→20:46)
[2023-01-13] MEDS: THIAMINE HCL 100 MG TAB PO SCH (08:09)
[2023-01-13] MEDS: ursodioL 300 MG CAP PO SCH ×2 (08:09→20:47)
[2023-01-13] MEDS ORDERED: LORazepam 2 MG/1 ML VIAL IV STA (12:56)
--- NOTE | 2023-01-13 17:14 | Hospitalist Progress Note ---
Date of Service January 13, 2023 Assessment & Plan (1) Alcohol withdrawal: (2) Alcoholic cirrhosis of liver: (3) Hypokalemia: (4) Hypomagnesemia: Plan Mr. Darrel Guillory is 47-year-old male with PMH ongoing alcohol abuse complicated by decompensated alcoholic cirrhosis with ascites, esophageal varices s/p banding, coagulopathy who is admitted for EtOH withdrawal. Patient reported that he was fearful to return home "too early" and would like to discuss options available for addiction resources. Acute Alcohol Withdrawal -Patient does report desire to quit, but struggles 2/2 cravings -AWSS with librium taper, received one dose of PRN Ativan as well -Would like to discuss addictions options/referral -Continue to monitor for signs of withdrawal and treat accordingly Hypomagnesemia Hypokalemia -Replace IV prn Cirrhosis 2/2 ETOH, compensated - MELD-Na: 7 on admission - Last EGD 2021 w/o varices (2019 s/p banding) - PSE: Denies h/o HE, no evidence of HE on exam - Ascites: c/w home Lasix:[place] 20:25 - Thrombocytopenia: stable, INR 1.1 - SBP: no history - EV: No evidence of GIB presently - on protonix daily and nadolol for PPx at home, will continue -Continue to monitor CMP Prior Cholelithiasis -Unable to undergo cholecystectomy 2/2 cirrhosis -Continue ursodiol 300mg bid Insomnia Anxiety -Zolpidem qhs -Buspar 5mg BID -Citalopram qam DVT prophylaxis: lovenox Diet: Low sodium diet Dispo: Declining inpt rehab, would like resources/meds to help with addiction Admission and Anticipated Discharge Date Admission Date: January 12, 2023 Subjective Pt seen, per nursing was more anxious requesting meds. States that he drinks tequila daily, last drink on Friday. States he felt like he was in withdrawal. Review of Systems Review of Systems: All systems reviewed & are unremarkable except as noted in Subjective Physical Exam Physical Exam: General: Alert, oriented. No acute distress Skin: No noted rashes or bruises Psych: Appropriate mood and affect Neuro: hands shake when outstretched HEENT: NC/AT Chest: Nontender to palpation. CV: RRR Resp: Breath sounds clear bilaterally, no increased effort of breathing. Abdomen: Soft, nontender, nondistended. No guarding. No organomegaly appreciated. Extremities: No edema in lower extremities bilaterally. Results & Data Results & Data Vital Signs (Past 12 Hours) Vital Signs Pulse Resp BP Pulse Ox 01/13/23 12:00 64 18 96 01/13/23 12:00 140/94 01/13/23 11:30 64 20 95 01/13/23 11:30 128/90 01/13/23 11:00 66 21 95 01/13/23 11:00 68 20 147/89 H 96 01/13/23 10:35 72 22 01/13/23 10:01 65 14 95 01/13/23 10:01 118/84 01/13/23 10:00 60 15 92 01/13/23 09:30 60 18 94 01/13/23 09:30 116/73 01/13/23 09:00 48 L 17 93 01/13/23 09:00 119/77 01/13/23 08:32 56 L 18 97 01/13/23 08:00 54 L 15 95 01/13/23 08:00 96/63 L 01/13/23 07:30 51 L 16 95 01/13/23 07:30 102/56 L 01/13/23 07:00 56 L 21 97 01/13/23 07:00 132/80 01/13/23 06:30 52 L 18 94 01/13/23 06:30 100/76 01/13/23 07:03 53 L 01/13/23 06:00 51 L 16 95 01/13/23 06:00 106/79 01/13/23 05:30 55 L 18 96 01/13/23 05:30 112/79 (1) Alcohol withdrawal Complication of substance-induced condition: uncomplicated Qualified Code(s): F10.930 - Alcohol use, unspecified with withdrawal, uncomplicated (2) Alcoholic cirrhosis of liver Ascites presence: unspecified Qualified Code(s): K70.30 - Alcoholic cirrhosis of liver without ascites
[2023-01-13] MEDS: nadoloL 40 MG TAB PO SCH (20:47)
[2023-01-13] MEDS: ZOLPIDEM TARTRATE 5 MG TAB PO SCH (20:57)
[2023-01-13] MEDS ORDERED: Ativan IV Alcohol Withdrawal--Active Protocol IV PRN (21:21)
[2023-01-13] MEDS ORDERED: LORazepam 2 MG/1 ML VIAL IV PRN ×3 (21:21)
[2023-01-13] MEDS: ENOXAPARIN INJ 40 MG/0.4 ML SYR SQ SCH (21:36)
[2023-01-14] MEDS: chlordiazePOXIDE HCl 25 MG CAP PO SCH ×2 (06:12→14:23)
--- NOTE | 2023-01-14 07:02 | Electrocardiogram Report ---
Test Reason : Blood Pressure : / mmHG Vent. Rate : 068 BPM Atrial Rate : 068 BPM P-R Int : 130 ms QRS Dur : 098 ms QT Int : 402 ms P-R-T Axes : 038 058 026 degrees QTc Int : 427 ms Normal sinus rhythm with sinus arrhythmia Cannot rule out Inferior infarct (cited on or before 08-DEC-2022) T wave abnormality, consider anterior ischemia Abnormal ECG When compared with ECG of 08-DEC-2022 07:22, No significant change was found Confirmed by Dilip Jones ([id number]) on 01/14/2023 7:02:29 AM Referred By: REFERRED SELF Confirmed By:Dilip Jones
[2023-01-14 08:11] LABS: Basophils # (auto) 0.06 K/uL (0.00-0.20); Basophils % (auto) 1.2 %; Eosinophils # (auto) 0.22 K/uL (0.00-0.50); Eosinophils % (auto) 4.2 %; Hematocrit (blood only) 45.7 % (42.0-52.0); Immature Granulocytes # (auto) 0.03 K/uL (0.01-0.20); Immature Granulocytes % (auto) 0.6 %; Lymphocytes # (auto) 1.28 K/uL (1.20-3.40); Lymphocytes % (auto) 24.6 %; Mean Corpuscular Hemoglobin 33.8 pg (25.0-34.0); Mean Corpuscular Volume 96.4 fL (80.0-100.0); Mean Platelet Volume 10.2 fL (9.4-12.4); Monocytes # (auto) 0.82 K/uL (0.11-0.59); Monocytes % (auto) 15.8 %; Neutrophils # (auto) 2.79 K/uL (1.40-6.50); Neutrophils % (auto) 53.6 %; Platelet Count 120 K/uL (130-400); RDW Coefficient of Variation 12.7 % (11.5-14.5); RDW Standard Deviation 45.2 fL (36.4-46.3); Red Blood Count 4.74 M/uL (4.70-6.10)
[2023-01-14 08:25] LABS: Potassium 3.7 mmol/L (3.5-5.1)
[2023-01-14 08:26] LABS: Albumin Globulin Ratio 1.1 (0.9-2); Albumin Level 3.9 gm/dl (3.4-5.0); BUN Creatinine Ratio 17.6 (10-20); Bilirubin,Total 1.7 mg/dl (0.2-1.0); Creatinine Clr Calc Pharmacy 110.6 ml/min; Est GFR (African American) 118.6 ml/min; Est GFR (Non-African American) 102.3 ml/min; Globulin 3.7 gm/dl (2.5-4.0); Magnesium 1.9 mg/dl (1.7-2.4); Phosphorus 4.2 mg/dl (2.5-4.9); Total Protein 7.6 gm/dl (6.0-8.3)
[2023-01-14] MEDS: CITALOPRAM 20 MG TAB PO SCH (09:13)
[2023-01-14] MEDS: busPIRone 5 MG TAB PO SCH ×2 (09:13→21:12)
[2023-01-14] MEDS: THIAMINE HCL 100 MG TAB PO SCH (09:13)
[2023-01-14] MEDS: FOLIC ACID 1 MG TAB PO SCH (09:14)
[2023-01-14] MEDS: FUROSEMIDE 20 MG TAB PO SCH (09:14)
[2023-01-14] MEDS: ursodioL 300 MG CAP PO SCH ×2 (09:15→21:11)
[2023-01-14] MEDS: SPIRONOLACTONE 25 MG TAB PO SCH (09:15)
[2023-01-14] MEDS: POTASSIUM CHLORIDE 10 MEQ TABCR PO SCH (09:15)
[2023-01-14] MEDS: PANTOprazole 40 MG TAB PO SCH (09:15)
--- NOTE | 2023-01-14 15:53 | Hospitalist Progress Note ---
Date of Service January 14, 2023 Assessment & Plan (1) Alcohol withdrawal: (2) Alcoholic cirrhosis of liver: (3) Hypokalemia: (4) Hypomagnesemia: Plan Mr. Darrel Guillory is 47-year-old male with PMH ongoing alcohol abuse complicated by decompensated alcoholic cirrhosis with ascites, esophageal varices s/p banding, coagulopathy who is admitted for EtOH withdrawal. Patient reported that he was fearful to return home "too early" and would like to discuss options available for addiction resources. Acute Alcohol Withdrawal -Patient does report desire to quit, but struggles 2/2 cravings -AWSS with librium taper, received one dose of PRN Ativan as well -Would like to discuss addictions options/referral -Continue to monitor for signs of withdrawal and treat accordingly Hypomagnesemia Hypokalemia -Replete as needed Cirrhosis 2/2 ETOH, compensated - MELD-Na: 7 on admission - Last EGD 2021 w/o varices (2019 s/p banding) - PSE: Denies h/o HE, no evidence of HE on exam - Ascites: c/w home Lasix:[place] 20:25 - Thrombocytopenia: stable, INR 1.1 - SBP: no history - EV: No evidence of GIB presently - on protonix daily and nadolol for PPx at home, will continue -Continue to monitor CMP Prior Cholelithiasis -Unable to undergo cholecystectomy 2/2 cirrhosis -Continue ursodiol 300mg bid Insomnia Anxiety -Zolpidem qhs -Buspar 5mg BID -Citalopram qam DVT prophylaxis: lovenox Diet: Low sodium diet Dispo: Declining inpt rehab, would like resources/meds to help with addiction Admission and Anticipated Discharge Date Admission Date: January 12, 2023 Subjective Pt states that he was not having symptoms at the time of the exam. States that the tremors and anxiety are worse in the AM. Has been tolerating food, denies N/V. Noted that he had not had a BM for some time. AAOx3. Still agreeable to resources to help with addiction. Review of Systems Review of Systems: All systems reviewed & are unremarkable except as noted in Subjective Physical Exam Physical Exam: General: Alert, oriented. No acute distress Skin: No noted rashes or bruises Psych: Appropriate mood and affect Neuro: hands shake when outstretched HEENT: NC/AT Chest: Nontender to palpation. CV: RRR Resp: Breath sounds clear bilaterally, no increased effort of breathing. Abdomen: Soft, nontender, nondistended. No guarding. No organomegaly appreciated. Extremities: No edema in lower extremities bilaterally. Results & Data Results & Data Vital Signs (Past 12 Hours) Vital Signs Temp Pulse Pulse Resp BP Pulse Ox O2 Del Method 01/14/23 15:33 36.7 C 63 18 120/78 93 Room Air 01/14/23 15:11 67 01/14/23 11:31 36.3 C L 64 18 119/80 92 Room Air 01/14/23 08:36 36.3 C L 56 L 18 112/82 95 Room Air 01/14/23 07:42 53 L (1) Alcohol withdrawal Complication of substance-induced condition: uncomplicated Qualified Code(s): F10.930 - Alcohol use, unspecified with withdrawal, uncomplicated (2) Alcoholic cirrhosis of liver Ascites presence: unspecified Qualified Code(s): K70.30 - Alcoholic cirrhosis of liver without ascites
[2023-01-14] MEDS: ZOLPIDEM TARTRATE 5 MG TAB PO SCH (21:10)
[2023-01-14] MEDS: ENOXAPARIN INJ 40 MG/0.4 ML SYR SQ SCH (21:11)
[2023-01-14] MEDS: nadoloL 40 MG TAB PO SCH (21:11)
[2023-01-15 05:55] LABS: Basophils # (auto) 0.05 K/uL (0.00-0.20); Basophils % (auto) 1.1 %; Eosinophils # (auto) 0.17 K/uL (0.00-0.50); Eosinophils % (auto) 3.6 %; Hematocrit (blood only) 46.7 % (42.0-52.0); Hemoglobin 16.1 g/dl (14.0-18.0); Immature Granulocytes # (auto) 0.03 K/uL (0.01-0.20); Immature Granulocytes % (auto) 0.6 %; Lymphocytes % (auto) 29.9 %; Mean Corpuscular Hemoglobin 33.8 pg (25.0-34.0); Mean Corpuscular Hgb Conc 34.5 g/dL (32.0-36.0); Mean Corpuscular Volume 98.1 fL (80.0-100.0); Mean Platelet Volume 10.5 fL (9.4-12.4); Monocytes # (auto) 0.69 K/uL (0.11-0.59); Monocytes % (auto) 14.7 %; Neutrophils # (auto) 2.35 K/uL (1.40-6.50); Neutrophils % (auto) 50.1 %; Platelet Count 102 K/uL (130-400); RDW Coefficient of Variation 12.7 % (11.5-14.5); RDW Standard Deviation 45.4 fL (36.4-46.3); Red Blood Count 4.76 M/uL (4.70-6.10); White Blood Count 4.69 K/ul (4.8-10.8)
[2023-01-15 06:06] LABS: Albumin Level 3.9 gm/dl (3.4-5.0); BUN Creatinine Ratio 16.1 (10-20); Bilirubin,Total 1.2 mg/dl (0.2-1.0); Calcium 8.9 mg/dl (8.6-10.3); Est GFR (African American) 117.5 ml/min; Est GFR (Non-African American) 101.3 ml/min; Globulin 3.8 gm/dl (2.5-4.0); Magnesium 1.9 mg/dl (1.7-2.4); Phosphorus 4.1 mg/dl (2.5-4.9); Potassium 4.4 mmol/L (3.5-5.1); Total Protein 7.7 gm/dl (6.0-8.3)
[2023-01-15] MEDS: FOLIC ACID 1 MG TAB PO SCH (08:54)
[2023-01-15] MEDS: FUROSEMIDE 20 MG TAB PO SCH (08:54)
[2023-01-15] MEDS: busPIRone 5 MG TAB PO SCH (08:54)
[2023-01-15] MEDS: ursodioL 300 MG CAP PO SCH (08:54)
[2023-01-15] MEDS: SPIRONOLACTONE 25 MG TAB PO SCH (08:54)
[2023-01-15] MEDS: CITALOPRAM 20 MG TAB PO SCH (08:55)
[2023-01-15] MEDS: THIAMINE HCL 100 MG TAB PO SCH (08:55)
[2023-01-15] MEDS: PANTOprazole 40 MG TAB PO SCH (08:55)
[2023-01-15] MEDS ORDERED: DOCUSATE SODIUM 100 MG CAP PO SCH (09:00)
[2023-01-15] MEDS: POTASSIUM CHLORIDE 10 MEQ TABCR PO SCH (09:02)
[2023-01-15 10:58] LABS: 7-Aminoclonaz, Confirm NEGATIVE ng/mL (<25); Hydro-Alp Ur, GC/MS NEGATIVE ng/mL (<25); Hydroxyethylflurazepam, Conf NEGATIVE ng/mL (<50); Hydroxymidazolam Ur, GC/MS NEGATIVE ng/mL (<50); Hydroxytriazolam NEGATIVE ng/mL (<50); Lorazepam, Ur GC/MS 147 ng/mL (<50); Marijuana Quant, GCMS Urine 1569 ng/mL (<5); Nordiazepam, Confirm NEGATIVE ng/mL (<50); Oxazepam Ur, GC/MS NEGATIVE ng/mL (<50); Temazepam, Confirm NEGATIVE ng/mL (<50)
--- NOTE | 2023-01-15 12:26 | Discharge Summary ---
Discharge Summary Date of Service January 15, 2023 Admission HPI Per Admitting Provider Mr. Darrel Guillory is 47-year-old male with PMH ongoing alcohol abuse c/b decompensated alcoholic cirrhosis with ascites, esophageal varices s/p banding, coagulopathy who presented to [facility] ED due to EtOH withdrawal. Patient states that his last drink was this afternoon and a couple hours later he noted tremors--prompting visit to ED due to concerns of withdrawal. Patient reports that he is struggling to quit, that he desires to stop, but just "keeps getting more." He notes that he has been drinking since age 10. He denies any history of seizures, hallucinations, nausea, vomiting. He notes that his abdomen as been "full," but it has improved with increased lasix dose. In the ED, vitals were notable for BP of 130-140s, HR 90s, and O2 sat of high 90s on room air. Labs with hypokalemia 3.1, hypomag 1.3, mild LF elevation AST 70, ALT 76 , EtOH 141.3 Imaging revealed stable chest XR EKG sinus tachy ED interventions: robert li, JANEWA protocol, replaced mag/K, sp IV lasix 20mg for ascites Patient to be admitted to med/surg tele secondary to ETOH withdrawal Principal Dx & Hospital Course #1 = Principal Diagnosis (1) Alcohol withdrawal: (2) Alcoholic cirrhosis of liver: (3) Hypokalemia: (4) Hypomagnesemia: Plan Mr. Darrel Guillory is 47-year-old male with PMH ongoing alcohol abuse complicated by decompensated alcoholic cirrhosis with ascites, esophageal varices s/p banding, coagulopathy who is admitted for EtOH withdrawal. Patient reported that he was fearful to return home "too early" and would like to discuss options available for addiction resources. Acute Alcohol Withdrawal -Patient does report desire to quit, but struggles 2/2 cravings -AWSS with librium taper, received one dose of PRN Ativan as well -Would like to discuss addictions options/referral -Continue to monitor for signs of withdrawal and treat accordingly Hypomagnesemia Hypokalemia -Replete as needed Cirrhosis 2/2 ETOH, compensated - MELD-Na: 7 on admission - Last EGD 2021 w/o varices (2019 s/p banding) - PSE: Denies h/o HE, no evidence of HE on exam - Ascites: c/w home Lasix:[place] 20:25 - Thrombocytopenia: stable, INR 1.1 - SBP: no history - EV: No evidence of GIB presently - on protonix daily and nadolol for PPx at home, will continue -Continue to monitor CMP Prior Cholelithiasis -Unable to undergo cholecystectomy 2/2 cirrhosis -Continue ursodiol 300mg bid Insomnia Anxiety -Zolpidem qhs -Buspar 5mg BID -Citalopram qam DVT prophylaxis: lovenox Diet: Low sodium diet Dispo: Declining inpt rehab, would like resources/meds to help with addiction Updated Medication List Medication Instructions Recorded Confirmed Type buspirone 5 mg tablet 5 mg PO BID 06/10/18 01/12/23 History folic acid 1 mg tablet 1 mg PO QAM 06/10/18 01/12/23 History nadolol 20 mg tablet 20 mg PO HS 06/10/18 01/12/23 History potassium chloride 10 mEq 10 meq PO QAM 06/10/18 01/12/23 History tablet,extended release ursodiol 300 mg capsule 300 mg PO BID 06/10/18 01/12/23 History zolpidem 5 mg tablet (Ambien) 5 mg PO HS PRN Sleep 06/10/18 01/12/23 History pantoprazole 20 mg tablet,delayed 20 mg PO QAM 07/09/19 01/12/23 History release furosemide 20 mg tablet 20 mg PO QAM 11/14/22 01/12/23 History spironolactone 25 mg tablet 25 mg PO QAM 11/14/22 01/12/23 History chlordiazepoxide HCl 5 mg capsule 5 mg PO Q12H #2 caps 01/15/23 Rx citalopram 20 mg tablet 10 mg PO QAM #30 tabs 01/15/23 Rx Hospital Stay Data Consultations 01/12/23 18:36 ED Decision to Admit Stat Pending Results Patient Have Any Pending Studies at Discharge: No Discharge Instructions Given to Patient (Per Discharging Provider) Mr. Guillory, You were admitted to help you with medications as you withdrew from alcohol use. You did well on the medications and we are discharging you with the final day of doses to be taken TOMORROW 01/16/2023. Please take the chlordiazepoxide tomorrow as prescribed. We ask that you keep follow up with your primary care provider if you desire medications to help you stop drinking. They can also refer you to Addiction Medicine to help with that if needed. We also recommend following up with the resources provided to you for rehab assistance. We also ask that you continue with the Celexa medication to help with your mood. We ask that you keep close follow up with your primary care provider after discharge. Should you feel like your symptoms are worsening after discharge, please do not hesitate to return to the emergency room as well. It was a pleasure taking care of you during your time here.
[2023-01-16] MEDS ORDERED: chlordiazePOXIDE HCl 5 MG CAP PO SCH (02:00)
== END 2023-01-15 13:31 | disposition home or self-care (01) | DRG 897 ==
LOC: ED 15:38 → EDINP 15:38 → SUATTDRO 19:53 → 2W 01-13 18:19

== ENCOUNTER 2023-03-13 10:55 | Inpatient (IN) ==
[2023-03-13] MEDS ORDERED: LORazepam 1 MG TAB PO PRN (11:16)
[2023-03-13] MEDS ORDERED: diazePAM INJ 5 MG/ML 2 ML CARP IV STA (11:16)
[2023-03-13] MEDS ORDERED: MULTI-VITAMIN INFUSION 10 ML, THIAMINE HCL 100 MG, FOLIC ACID 1 MG in SODIUM CHLORIDE 0... IV ONE (11:16)
[2023-03-13] MEDS ORDERED: chlordiazePOXIDE HCl 25 MG CAP PO ONE (11:16)
[2023-03-13] MEDS ORDERED: LORazepam 1 MG in SYRINGE 0.5 ML IV PRN ×2 (11:16→16:44)
[2023-03-13 11:44] LABS: Basophils # (auto) 0.05 K/uL (0.00-0.20); Basophils % (auto) 1.2 %; Eosinophils # (auto) 0.13 K/uL (0.00-0.50); Eosinophils % (auto) 3.1 %; Hemoglobin 16.9 g/dl (14.0-18.0); Immature Granulocytes # (auto) 0.01 K/uL (0.01-0.20); Immature Granulocytes % (auto) 0.2 %; Lymphocytes # (auto) 0.95 K/uL (1.20-3.40); Lymphocytes % (auto) 22.4 %; Mean Corpuscular Hgb Conc 34.5 g/dL (32.0-36.0); Mean Corpuscular Volume 98.6 fL (80.0-100.0); Mean Platelet Volume 10.2 fL (9.4-12.4); Monocytes # (auto) 0.52 K/uL (0.11-0.59); Monocytes % (auto) 12.2 %; Neutrophils # (auto) 2.59 K/uL (1.40-6.50); Neutrophils % (auto) 60.9 %; Platelet Count 122 K/uL (130-400); RDW Coefficient of Variation 12.3 % (11.5-14.5); RDW Standard Deviation 44.7 fL (36.4-46.3); Red Blood Count 4.97 M/uL (4.70-6.10); White Blood Count 4.25 K/ul (4.8-10.8)
[2023-03-13 12:02] LABS: Albumin Level 4.2 gm/dl (3.4-5.0); BUN Creatinine Ratio 7.7 (10-20); Bilirubin,Total 2.4 mg/dl (0.2-1.0); Calcium 8.7 mg/dl (8.6-10.3); Est GFR (African American) 122.8 ml/min; Globulin 4.1 gm/dl (2.5-4.0); Magnesium 1.4 mg/dl (1.7-2.4); Phosphorus 3.3 mg/dl (2.5-4.9); Potassium 3.3 mmol/L (3.5-5.1); Total Protein 8.3 gm/dl (6.0-8.3)
[2023-03-13 12:09] LABS: INR 1.2 (0.9-1.1); Partial Thromboplastin Time 29 Seconds (21-31); Prothrombin Time 12.5 Seconds (9.0-12.0)
[2023-03-13] MEDS ORDERED: MAGNESIUM SULFATE / D5W 1 GM/100 ML BAG IV STA (12:19)
--- NOTE | 2023-03-13 12:19 | Emergency Department Note ---
Impression & Plan Alcohol withdrawal, Hypokalemia, Hypomagnesemia, Transaminitis, Thrombocytopenia ED Provider Note NAME: ANDREA ADAME AGE: 47 SEX: M : 1975 ARRIVES VIA: Walk-In INFORMANT: Patient, ED PROVIDER(S): Ryan Dong MD CHIEF COMPLAINT: Alcohol withdrawal MEDICAL DECISION MAKING: Patient presents for alcohol withdrawal. IV was established paroxetine. Patient was ordered IV Valium banana bag as well as p.o. Librium. Patient's work shows leukopenia with a normal H&H mild thrombocytopenia 122. INR 1.2. The patient's kidney function is unremarkable. Slightly lower bicarb and magnesium. Patient does have an elevated serum bilirubin at 2.4 which is doubled from before. This certainly may be related to patient's chronic alcohol use with associated elevated AST and ALT 161 101. Patient did receive the Valium and Librium. Given the patient's concern for acute withdrawal related symptoms I did speak with the on-call hospital service RUPERT Yang and the patient was admitted by Dr. De La Garza. Critical Care: I have personally spent 40 minutes of critical care time in direct management of this patient. This includes bedside care, interpretation of diagnostic studies, and testing, discussion with consultants, patient, and family members, and other require inpatient management activities. This 40 minutes is in excess of all separately billable procedures. Discussion w/ other healthcare providers: RUPERT Gomez and Dr. De La Garza inpatient medicine service Prior /Outside records reviewed: None Differential diagnosis: Alcohol intoxication, toxicologic, infection, hypoglycemia, electrolyte abnormalities, cardiac sources, intracerebral event, neurologic, trauma, as well as other pathologies. Diagnostics, as interpreted by me: ECG:Normal sinus rhythm at a rate of 62, normal intervals, normal axis no ST elevations. Cardiac monitoring: An order was placed for continuous cardiac monitoring. The monitor shows a rate of 65 with sinus rhythm. Patient was placed on pulse oximetry Medical decision rules: None Imaging studies: None HPI: Patient presents due to concern for alcohol withdrawal and is requesting treatment for possible inpatient rehab for alcohol addiction. Patient states that he had been sober up until about a year ago for 6 and half years. No inciting event at that that time. The patient states that he typically drinks about 5 ounces of whiskey per day last drinking around 2 or 3:00 in the afternoon. Patient denies any chest pains or shortness of breath but has had some dry heaves associated diarrhea and feeling tremulous. Patient does chew tobacco but denies any drug use. PAST MEDICAL HISTORY: See Below PAST SURGICAL HISTORY: See Below SOCIAL HISTORY: See Below HOME MEDICATIONS: See Below ALLERGIES: See Below VITALS: See Below PHYSICAL EXAMINATION: GENERAL: Anxious but nontoxic in appearance EYE EXAM: Normal conjunctiva. PERRL, no anisocoria and EOM's grossly intact w/o pain. OROPHARYNX: Dry mucus membranes, grossly normal dentition. Tongue fasciculations noted. NECK: Supple, no nuchal rigidity, no adenopathy, non-tender. No signs of meningismus. FROM of the neck with good chin to chest and neck extension. No stridor. LUNGS: Clear to auscultation. Normal chest wall mechanics. HEART: NSR, no MRG. ABDOMEN: Abdomen soft, non-tender, no masses, no rebound or guarding. BACK: No CVA TTP. SKIN: No rashes and no bruising. UPPER EXTREMITIES: Upper extremities are grossly normal. Bilateral upper extremity tremor. LOWER EXTREMITIES: Grossly normal, no edema. NEURO EXAM: A&O x3, cranial nerves II-XII grossly intact, normal speech, moves all 4 extremities. Past Med/Surg History Medical History Thrombocytopenia Ascites Portal hypertension Esophageal varices Alcoholic cirrhosis of liver History of macrocytic anemia History of alcohol abuse Surgical History History of esophagogastroduodenoscopy (EGD) Including procedures for esophageal varices banding History of tonsillectomy Family History Mother Diabetes Father Prostate cancer Other No family history of adverse response to anesthesia Social History Smoking Status: Never smoker Tobacco Type: Smokeless Tobacco (Dip or Chew) Second Hand Exposure: No; Do You Dip or Chew Tobacco: Yes; Tobacco Cessation Education Requested by Patient: No Hx Alcohol Use: Yes Alcohol type: hard liquor Hx Substance Use: No Preferred Language: Uzbek Communication Ability: Effective Lamp Decorator Required: No Beliefs That Will Affect Care: None Current Living Situation: Alone Current Living Situation Comment: lives with parents Other Information That Helps Us Care for You: No Feels Safe at Home: Yes Safety Concerns: Feels Safe At This Time Assistive Devices: None Allergies Allergies Allergy/AdvReac Type Severity Reaction Status Date / Time aspirin AdvReac Unknown THINS Verified 01/12/23 19:56 BLOOD, NOSE BLEEDS Home Meds Home Medications Medication Instructions Recorded Confirmed buspirone 5 mg tablet 5 mg PO BID 06/10/18 03/13/23 folic acid 1 mg tablet 1 mg PO QAM 06/10/18 03/13/23 nadolol 20 mg tablet 20 mg PO HS 06/10/18 03/13/23 potassium chloride 10 mEq 10 meq PO QAM 06/10/18 03/13/23 tablet,extended release ursodiol 300 mg capsule 300 mg PO BID 06/10/18 03/13/23 zolpidem 5 mg tablet (Ambien) 5 mg PO HS PRN Sleep 06/10/18 03/13/23 pantoprazole 20 mg tablet,delayed 20 mg PO QAM 07/09/19 03/13/23 release furosemide 20 mg tablet 20 mg PO QAM 11/14/22 03/13/23 spironolactone 25 mg tablet 25 mg PO QAM 11/14/22 03/13/23 Results & Data (ED) Vital Signs Vital Signs - 24 hr 03/13/23 11:02 03/13/23 11:21 03/13/23 12:35 Temperature 36.7 C Temperature Source Temporal Artery Scan Pulse Rate 58 L 60 Pulse Rate [Apical] 60 Respiratory Rate 18 20 Respiratory Effort / Characteristics Non-Labored Spontaneous Non-Labored Respiratory Depth Normal Normal Blood Pressure 154/83 H Blood Pressure [Right Arm] 141/87 H Blood Pressure Mean 106 Blood Pressure Mean [Right Arm] 105 Blood Pressure Position Sitting Blood Pressure Position [Right Arm] Lying Pulse Oximetry 93 95 Oxygen Delivery Method Room Air Room Air Sepsis Recent Fever Within 48 Hours No Sepsis New/Unexplained Change in Mental Status No Sepsis Action Taken by Nursing No Action Required 03/13/23 12:35 Temperature Temperature Source Pulse Rate Pulse Rate [Apical] 60 Respiratory Rate 18 Respiratory Effort / Characteristics Non-Labored Respiratory Depth Normal Blood Pressure Blood Pressure [Right Arm] 141/88 H Blood Pressure Mean Blood Pressure Mean [Right Arm] 105 Blood Pressure Position Blood Pressure Position [Right Arm] Lying Pulse Oximetry 95 Oxygen Delivery Method Room Air Sepsis Recent Fever Within 48 Hours Sepsis New/Unexplained Change in Mental Status Sepsis Action Taken by Half-Way Medications Current Medication List: was personally reviewed by me Laboratory Data Attestation: I reviewed the patient's lab results. 03/14/23 05:36 03/14/23 05:36 Lab Results 03/13/23 Range/Units 11:18 WBC 4.25 L (4.8-10.8) K/ul RBC 4.97 (4.70-6.10) M/uL Hgb 16.9 (14.0-18.0) g/dl Hct 49.0 (42.0-52.0) % MCV 98.6 (80.0-100.0) fL MCH 34.0 (25.0-34.0) pg MCHC 34.5 (32.0-36.0) g/dL RDW Std Deviation 44.7 (36.4-46.3) fL RDW Coeff of Hang 12.3 (11.5-14.5) % Plt Count 122 L (130-400) K/uL MPV 10.2 (9.4-12.4) fL Immature Gran % (Auto) 0.2 % Neut % (Auto) 60.9 % Lymph % (Auto) 22.4 % Grady % (Auto) 12.2 % Eos % (Auto) 3.1 % Baso % (Auto) 1.2 % Neut # (Auto) 2.59 (1.40-6.50) K/uL Lymph # (Auto) 0.95 L (1.20-3.40) K/uL Grady # (Auto) 0.52 (0.11-0.59) K/uL Eos # (Auto) 0.13 (0.00-0.50) K/uL Baso # (Auto) 0.05 (0.00-0.20) K/uL Immature Gran # (Auto) 0.01 (0.01-0.20) K/uL PT 12.5 H (9.0-12.0) Seconds INR 1.2 H (0.9-1.1) APTT 29 (21-31) Seconds PTT Ratio 1.0 Sodium 138 (136-145) mmol/L Potassium 3.3 L (3.5-5.1) mmol/L Chloride 101 (98-107) mmol/L Carbon Dioxide 22 (21-32) mmol/L Anion Gap 15 H (3-11) BUN 6 (6-23) mg/dl Creatinine 0.78 (0.6-1.4) mg/dl Est Cr Clr Drug Dosing 122.0 ml/min Est GFR ( Amer) 122.8 ml/min Est GFR (Non-Af Amer) 106.0 ml/min BUN/Creatinine Ratio 7.7 L (10-20) Glucose 131 H (70-99(Fasting)) mg/dl Calcium 8.7 (8.6-10.3) mg/dl Phosphorus 3.3 (2.5-4.9) mg/dl Magnesium 1.4 L (1.7-2.4) mg/dl Total Bilirubin 2.4 H (0.2-1.0) mg/dl AST 161 H (13-39) U/L ALT 101 H (7-52) U/L Alkaline Phosphatase 61 (34-104) U/L Total Protein 8.3 (6.0-8.3) gm/dl Albumin 4.2 (3.4-5.0) gm/dl Globulin 4.1 H (2.5-4.0) gm/dl Albumin/Globulin Ratio 1.0 (0.9-2) Vitamin B12 517 (180-914) pg/ml Administered Medications Acetaminophen (Acetaminophen 325 Mg Tab) 650 mg PO Q4H PRN PRN Reason: Pain or Fever Stop: 04/12/23 16:43 Last Admin: 03/14/23 09:16 Dose: 650 mg Documented By: Admin: 03/13/23 18:25 Dose: 650 mg Documented By: [facility] Buspirone HCl (Buspirone 5 Mg Tab) 5 mg PO BID [facility] Stop: 04/12/23 20:59 Last Admin: 03/14/23 09:17 Dose: 5 mg Documented By: Admin: 03/13/23 21:12 Dose: 5 mg Documented By: VALE Chlordiazepoxide HCl (Chlordiazepoxide Hcl 25 Mg Cap) 25 mg PO Q6H [facility] Stop: 03/14/23 12:01 Last Admin: 03/14/23 06:35 Dose: 25 mg Documented By: Admin: 03/14/23 03:05 Dose: 25 mg Documented By: Admin: 03/13/23 18:25 Dose: 25 mg Documented By: SAMANTHA Folic Acid (Folic Acid 1 Mg Tab) 1 mg PO QAM [facility] Stop: 04/13/23 08:59 Last Admin: 03/14/23 09:18 Dose: 1 mg Documented By: SAMANTHA [facility]urosemide ([facility] 20 Mg Tab) [facility] Stop: 04/13/23 08:59 Last Admin: 03/14/23 09:18 Dose: 20 mg Documented By: SAMANTHA Sodium Chloride (Nss) 1,000 mls @ 100 mls/hr IV .Q10H [facility] Stop: 03/14/23 12:43 Last Admin: 03/14/23 03:07 Dose: 100 mls/hr Documented By: Infusion: 03/14/23 03:06 Dose: Infused Documented By: Admin: 03/13/23 17:00 Dose: 100 mls/hr Documented By: SAMANTHA Lorazepam 2 mg/ Syringe 2 mls @ 2 mls/min IV UD PRN; Protocol PRN Reason: EtOH Withdrawal AWSS Score 8,9 Stop: 04/12/23 16:43 Last Admin: 03/13/23 17:06 Dose: 2 mls/min Documented By: SAMANTHA Magnesium Sulfate/Dextrose (Magnesium Sulfate / D5w) 1 gm in 100 mls @ 50 mls/hr IV Q2H [facility] Stop: 03/14/23 12:44 Last Admin: 03/14/23 09:16 Dose: 50 mls/hr Documented By: SAMANTHA Nadolol (Nadolol 40 Mg Tab) 20 mg PO HS [facility] Stop: 04/12/23 20:59 Last Admin: 03/13/23 21:11 Dose: 20 mg Documented By: PHILLIP Pantoprazole Sodium (Pantoprazole 40 Mg Tab) [facility] Stop: 04/13/23 08:59 Last Admin: 03/14/23 09:18 Dose: 40 mg Documented By: SAMANTHA Potassium Chloride (Potassium Chloride 10 Meq Tabcr) 10 meq PO QAM [facility] Stop: 04/13/23 08:59 Last Admin: 03/14/23 09:16 Dose: 10 meq Documented By: SAMANTHA Spironolactone (Spironolactone 25 Mg Tab) [facility] Stop: 04/13/23 08:59 Last Admin: 03/14/23 09:18 Dose: 25 mg Documented By: SAMANTHA Thiamine HCl (Thiamine Hcl 100 Mg Tab) 100 mg PO QAM [facility] Stop: 04/13/23 08:59 Last Admin: 03/14/23 09:18 Dose: 100 mg Documented By: SAMANTHA Ursodiol (Ursodiol 300 Mg Cap) 300 mg PO BID [facility] Stop: 04/12/23 20:59 Last Admin: 03/14/23 09:17 Dose: 300 mg Documented By: Admin: 03/13/23 21:11 Dose: 300 mg Documented By: PHILLIP Zolpidem Tartrate (Zolpidem Tartrate 5 Mg Tab) 5 mg PO HS PRN PRN Reason: Sleep Stop: 04/12/23 21:30 Last Admin: 03/13/23 21:52 Dose: 5 mg Documented By: PHILLIP Discontinued Medications Al Hydrox/Mg Hydrox/Simethicone (Aluminum/Magnesium Susp 30 Ml Udc) 15 ml PO NOW STA Stop: 03/13/23 13:54 Last Admin: 03/13/23 14:11 Dose: 15 ml Documented By: MILLY Chlordiazepoxide HCl (Chlordiazepoxide Hcl 25 Mg Cap) 50 mg PO NOW ONE Stop: 03/13/23 11:17 Last Admin: 03/13/23 11:23 Dose: 50 mg Documented By: GIOVANNY Diazepam (Diazepam Inj 5 Mg/Ml 2 Ml Carp) 10 mg IV NOW STA Stop: 03/13/23 11:17 Last Admin: 03/13/23 11:23 Dose: 10 mg Documented By: GIOVANNY Multivitamins 10 ml/ Thiamine HCl 100 mg/ Folic Acid 1 mg/Sodium Chloride 1,011.2 mls @ 500 mls/hr IV .Q2H2M ONE Stop: 03/13/23 13:17 Last Infusion: 03/13/23 13:45 Dose: Infused Documented By: Admin: 03/13/23 11:40 Dose: 500 mls/hr Documented By: MILLY Magnesium Sulfate/Dextrose (Magnesium Sulfate / D5w) 1 gm in 100 mls @ 100 mls/hr IV NOW STA Stop: 03/13/23 13:18 Last Infusion: 03/13/23 13:14 Dose: Infused Documented By: Admin: 03/13/23 12:31 Dose: 100 mls/hr Documented By: MILLY Magnesium Sulfate/Dextrose (Magnesium Sulfate / D5w) 1 gm in 100 mls @ 50 mls/hr IV ONE ONE Stop: 03/13/23 15:29 Last Infusion: 03/13/23 15:22 Dose: Infused Documented By: Admin: 03/13/23 13:26 Dose: 50 mls/hr Documented By: MILLY Potassium Chloride (Potassium Chloride Crtab 20 Meq Tabcr) 40 meq PO NOW STA Stop: 03/13/23 13:23 Last Admin: 03/13/23 13:26 Dose: 40 meq Documented By: MILLY Discharge Plan Visit Data Chief Complaint: Alcohol Withdrawal Stated Complaint: ALCOHOL WITHDRAW ED Provider: Ryan Dong Discharge Problem: Alcohol withdrawal, Hypokalemia, Hypomagnesemia, Transaminitis, Thrombocytopenia Patient Disposition: Admitted As Inpatient Discharge Instructions Interventions: ED Discharge Assessment Last Done: 03/13/23 16:07 Discharge Problem: Alcohol withdrawal Qualifiers: Complication of substance-induced condition: uncomplicated Qualified Code(s): F 10.930 - Alcohol use, unspecified with withdrawal, uncomplicated
[2023-03-13] MEDS ORDERED: POTASSIUM CHLORIDE CRTAB 20 MEQ TABCR PO STA (13:22)
[2023-03-13] MEDS ORDERED: MAGNESIUM SULFATE / D5W 1 GM/100 ML BAG IV ONE (13:30)
--- NOTE | 2023-03-13 13:31 | History & Physical Report ---
Date of Service March 13, 2023 Assessment & Plan (1) Alcohol withdrawal: Plan: Admit to telemetry Patient presenting from home with reports of symptoms of alcohol withdrawal. Longstanding history of alcohol abuse, had been sober for about 7 years however began drinking again 6 months ago with intermittent periods of brief sobriety. Recently admitted to [facility] 01/12 through 01/15 for alcohol withdrawal. Patient discharged on Librium which seemed to control cravings. Patient ran out of Librium about 1 week ago began drinking again. Reports he is drinking 5 ounces of whiskey per day, last drink being last evening. Currently, patient is tremulous, oriented x 3 S/p Librium and Valium in the ED Alcohol withdrawal protocol with Librium and as needed Ativan Thiamine and folic acid IVF Patient states he is interested in rehab at discharge. (2) Alcoholic cirrhosis of liver: (3) Ascites: (4) Esophageal varices: Plan: Reports worsening abdominal distention, history of paracentesis several years ago Will obtain ultrasound to evaluate for ascites History of esophageal varices s/p banding in 2018, EGD 2021 - no evidence of varices Continue Lasix, spironolactone, nadolol (5) Hypokalemia: (6) Hypomagnesemia: Plan: K+ 3.3, Mg+ 1.4 Replace, follow electrolytes (7) Transaminitis: Plan: T. bili 2.4, AST 161, ALT 101 Likely secondary to alcohol use Trend LFTs (8) Thrombocytopenia: Plan: In the setting of cirrhosis Platelet count 122 K Monitor CBC DVT PROPHYLAXIS SCDs due to thrombocytopenia Patient seen in collaboration with Dr. De La Garza. I spent a total of 75 minutes coordinating, documenting, and providing care for this patient excluding time spent in the performance of separately billed services. This included personally reviewing all current laboratories and imaging studies, medication reconciliation, outpatient chart review, and discussion with specialists. History of Present Illness Chief Complaint: Alcohol withdrawal Primary Care Provider: Michelle Borrego DO 47-year-old male with PMH alcohol abuse, alcoholic cirrhosis with esophageal varices s/p banding and ascites, chronic cholecystitis, and other problems to below who presents to the ED for evaluation of alcohol withdrawal. History is obtained from the patient and review of outpatient PCP and GI records. Patient with a longstanding history of alcohol abuse, had been sober for about 7 years however started drinking again about 6 months ago and has had intermittent brief periods of sobriety. Most recently admitted to [facility] 01/12 through 01/15 for alcohol withdrawal. Patient discharged on Librium. Followed up with PCP who provided additional Librium. Patient states this helped his cravings however he ran out about 1 week ago and started drinking again. Reports he is drinking about 5 ounces of whiskey per day. Last drink was last evening. This morning, patient reports he was very tremulous, nauseous, diaphoretic, nauseous, short of breath. He denies chest pain. No lightheadedness, dizziness, syncopal events. Reports worsening abdominal distention. No abdominal pain, vomiting, diarrhea. Denies bright red bleeding per rectum and dark tarry stools. No other recent illnesses, fevers, chills. No urinary symptoms. In the ED, labs show K+ 3.3, Mg +1.4, transaminitis with T. bili 2.4, AST 161, ALT 101, alk phos 61. Patient was given Librium, Valium, magnesium replacement, banana bag. Allergies Allergy/AdvReac Type Severity Reaction Status Date / Time aspirin AdvReac Unknown THINS Verified 01/12/23 19:56 BLOOD, NOSE BLEEDS Home Medications Medication Instructions Recorded Confirmed Type buspirone 5 mg tablet 5 mg PO BID 06/10/18 03/13/23 History folic acid 1 mg tablet 1 mg PO QAM 06/10/18 03/13/23 History nadolol 20 mg tablet 20 mg PO HS 06/10/18 03/13/23 History potassium chloride 10 mEq 10 meq PO QAM 06/10/18 03/13/23 History tablet,extended release ursodiol 300 mg capsule 300 mg PO BID 06/10/18 03/13/23 History zolpidem 5 mg tablet (Ambien) 5 mg PO HS PRN Sleep 06/10/18 03/13/23 History pantoprazole 20 mg tablet,delayed 20 mg PO QAM 07/09/19 03/13/23 History release furosemide 20 mg tablet 20 mg PO QAM 11/14/22 03/13/23 History spironolactone 25 mg tablet 25 mg PO QAM 11/14/22 03/13/23 History Past Med/Surg History Medical History (Updated 03/13/23 @ 13:36 by RUPERT Florez) Thrombocytopenia Ascites Portal hypertension Esophageal varices Alcoholic cirrhosis of liver History of macrocytic anemia History of alcohol abuse Surgical History History of esophagogastroduodenoscopy (EGD) Including procedures for esophageal varices banding History of tonsillectomy Family History Mother Diabetes Father Prostate cancer Other No family history of adverse response to anesthesia Social History Smoking Status: Never smoker Tobacco Type: Smokeless Tobacco (Dip or Chew) Second Hand Exposure: No; Do You Dip or Chew Tobacco: Yes; Tobacco Cessation Education Requested by Patient: No Hx Alcohol Use: Yes Alcohol type: hard liquor Hx Substance Use: No Preferred Language: Italian Communication Ability: Effective Regional Extension Service Specialist Required: No Beliefs That Will Affect Care: None Current Living Situation: Alone Current Living Situation Comment: lives with parents Other Information That Helps Us Care for You: No Feels Safe at Home: Yes Safety Concerns: Feels Safe At This Time Assistive Devices: None Physical Exam Constitutional: WD/WN, vitals as above no acute distress Eyes: PERRL, conjunctivae normal, anicteric sclerae ENMT: external ear and nose normal, oropharynx normal Respiratory: normal respiratory effort, lungs clear to auscultation Cardiovascular: Rate/Rhythm: regular rate and regular rhythm Vessels: normal peripheral pulses Extremities: no edema Gastrointestinal (Abdomen): Inspection/Auscultation: + abdomen distended Percussion/Palpation: abdomen soft; abdomen nontender Musculoskeletal: no cyanosis or clubbing, extremities motor strength 5/5 Skin: no rashes, warm and dry Neurologic: PERRL, EOMI, accommodation nl, no face palsy, no dysarthria Motor/Sensory: + tremor Psychiatric: Orientation: alert and oriented x 3 Affect: + depressed affect Results & Data Results & Data Vital Signs (Past 12 Hours) Vital Signs Temp Pulse Pulse Resp BP BP Pulse Ox 03/13/23 12:35 60 18 141/88 H 95 03/13/23 12:35 60 03/13/23 11:21 60 20 141/87 H 95 03/13/23 11:02 36.7 C 58 L 18 154/83 H 93 O2 Del Method 03/13/23 12:35 Room Air 03/13/23 12:35 03/13/23 11:21 Room Air 03/13/23 11:02 Room Air Laboratory Results Short CBC 03/13/23 Range/Units 11:18 WBC 4.25 L (4.8-10.8) K/ul Hgb 16.9 (14.0-18.0) g/dl Hct 49.0 (42.0-52.0) % Plt Count 122 L (130-400) K/uL BMP 03/13/23 11:18 Sodium 138 Potassium 3.3 L Chloride 101 Carbon Dioxide 22 BUN 6 Creatinine 0.78 Glucose 131 H Calcium 8.7 Liver Function 03/13/23 Range/Units 11:18 Total Bilirubin 2.4 H (0.2-1.0) mg/dl AST 161 H (13-39) U/L ALT 101 H (7-52) U/L Alkaline Phosphatase 61 (34-104) U/L Albumin 4.2 (3.4-5.0) gm/dl Code Status & VTE Plan VTE Prophylaxis Plan VTE Prophylaxis will be ordered: Yes Supervising Physician Co-Signing Physician Notes Attending addendum: The patient was seen and examined in telemetry unit He has had his last drink about 2:00 yesterday and has been complaining of tremors involving the hands unsteadiness and gait since admission Denies any visual hallucinations, any nausea and or vomiting or any change in mental status On examination Lying in bed with the tremors and anxiety Hemodynamically stable Chest- clear to auscultate bilaterally HeartS1-S2, regular Abdomen-mildly distended, soft and bowel sound present Extremities-negative for any edema GLOBAL MARKETING INTERN-alert, awake and oriented x 3 No focal sensory unremarkable deficit appreciated He is admission labs, EKG and imaging studies reviewed History of alcoholism coming in with withdrawal symptoms No delirium tremens Minimally distended abdomen without any ascites Has been on withdrawal protocol with Librium He is willing to go to inpatient rehab Agree with assessment and plan as outlined above by Yolie De La Garza (1) Alcohol withdrawal Complication of substance-induced condition: uncomplicated Qualified Code(s): F10.930 - Alcohol use, unspecified with withdrawal, uncomplicated (2) Alcoholic cirrhosis of liver Ascites presence: unspecified Qualified Code(s): K70.30 - Alcoholic cirrhosis of liver without ascites
[2023-03-13] MEDS ORDERED: ALUMINUM/MAGNESIUM SUSP 30 ML UDC PO STA (13:53)
--- NOTE | 2023-03-13 14:12 | Ultrasound Report ---
ULTRASOUND ASCITES CHECK CLINICAL HISTORY: Alcohol withdrawal. Clinical concern for abdominal ascites. FINDINGS: Real-time grayscale sonography of all 4 quadrants of the abdomen is performed to assess for abdominal ascites. No abdominal ascites is seen. The spleen is enlarged measuring 15.6 cm in length. Hepatic echotexture is increased indicating steatosis. IMPRESSION: No abdominal ascites is identified. Electronically signed by: Darrin Tran M.D. 03/13/2023 2:11 PM
--- NOTE | 2023-03-13 14:34 | Electrocardiogram Report ---
Test Reason : Blood Pressure : / mmHG Vent. Rate : 062 BPM Atrial Rate : 062 BPM P-R Int : 116 ms QRS Dur : 090 ms QT Int : 450 ms P-R-T Axes : 061 056 032 degrees QTc Int : 456 ms Normal sinus rhythm Normal ECG When compared with ECG of 12-JAN-2023 16:54, No significant change was found Confirmed by Guy Dejesus ([id number]) on 03/13/2023 2:33:49 PM Referred By: REFERRED SELF Confirmed By:Guy Dejesus
[2023-03-13] MEDS ORDERED: LORazepam 3 MG in SYRINGE 1.5 ML IV PRN (16:44)
[2023-03-13] MEDS ORDERED: chlordiazePOXIDE ALCOHOL WITHDRAWL 25MG PO STA (16:44)
[2023-03-13] MEDS ORDERED: Ativan IV Alcohol Withdrawal--Active Protocol IV PRN (16:44)
[2023-03-13] MEDS ORDERED: LORazepam 2 MG in SYRINGE 1 ML IV PRN (16:44)
[2023-03-13] MEDS: SODIUM CHLORIDE 0.9% 1,000 ML IV SCH (17:00)
[2023-03-13] MEDS: chlordiazePOXIDE HCl 25 MG CAP PO SCH (18:25)
[2023-03-13] MEDS: ACETAMINOPHEN 325 MG TAB PO PRN (18:25)
[2023-03-13] MEDS: nadoloL 40 MG TAB PO SCH (21:11)
[2023-03-13] MEDS: ursodioL 300 MG CAP PO SCH (21:11)
[2023-03-13] MEDS: busPIRone 5 MG TAB PO SCH (21:12)
[2023-03-13] MEDS: ZOLPIDEM TARTRATE 5 MG TAB PO PRN (21:52)
--- OUTSIDE RECORDS SUMMARY | 2023-03-13 22:39 | External Medical Summary | Summary of Care ---
Author Name Unknown Organization [facility] Address [address] [place] [place] [address] Phone [phone] Care Team Providers Care Mobile Development Manager Name Role Phone Michelle Borrego DO Primary Care Provider + [phone] Encounter Details Date Type Department Care Team (Late st Contact Info) Description 03/11/[address] [phone] Michelle Borrego DO [address] [place] [address] [place] [address] Allergies Active Allergy Reactions Criticality Noted Date Comments Aspirin Other (Please comment) 02/12/2016 Reports having a bloody nose. documented as of this encounter (statuses as of 03/12/2023) Medications Medication Sig Dispensed Refills Start Date End Date Status Pantoprazole Sodium 20 MG Oral Tablet Delayed Release (Protonix) TAKE ONE TABLET BY MOUTH EVERY DAY 90 Tablet 3 06/24/2022 Active Thiamine HCl 100 MG Oral Tablet Take 1 Tablet by mouth in the morning. 0 11/25/2022 Active Ursodiol 300 MG Oral Capsule (Actigall) TAKE ONE CAPSULE BY MOUTH TWICE DAILY 180 Capsule 12 12/18/2022 Active Nadolol 20 MG Oral Tablet (Corgard) Take 1 Tablet by mouth in the morning. 90 Tablet 3 12/18/2022 Active Citalopram Hydrobromide 10 MG Oral Tablet (CeleXA) Take 1 Tablet by mouth in the morning. 90 Tablet 3 12/24/2022 Active busPIRone HCl 5 MG Oral Tablet (Buspar) Take 1 Tablet by mouth in the morning and 1 Tablet before bedtime. 180 Tablet 3 01/14/2023 Active Folic Acid 1 MG Oral Tablet Take 1 Tablet by mouth in the morning. 90 Tablet 3 01/14/2023 Active Spironolactone 25 MG Oral Tablet (Aldactone) Take 1 Tablet by mouth in the morning. 90 Tablet 3 01/14/2023 Active chlordiazePOXIDE HCl 25 MG Oral Capsule (Librium) Take 1 Capsule by mouth every 6 hours as needed (alcohol withdrawal). 15 Capsule 0 02/11/2023 Active Potassium Chloride ER 10 MEQ Oral Tablet Extended Release TAKE ONE TABLET BY MOUTH EVERY MORNING 90 Tablet 3 03/04/2023 Active Furosemide 20 MG Oral Tablet (Lasix)Indications:Al coholic cirrhosis of liver with ascites (HCC) Take 1 Tablet by mouth in the morning. 90 Tablet 3 03/05/2023 Active documented as of this encounter (statuses as of 03/12/2023) Active Problems Problem Noted Date Diagnosed Date Biliary colic 07/11/2019 History of alcohol abuse 06/01/2018 Persistent insomnia 02/12/2017 Chronic cholecystitis 11/10/2016 Pre-transplant evaluation for chronic liver dise ase 09/30/2016 Controlled substance agreement signed 08/22/2016 Pancreatic cyst 08/18/2016 Overview: 5mm, Needs repeat MRCP in 07/2017 Secondary esophageal varices without bleeding Alcoholic cirrhosis of liver with ascites 2015 Macrocytic anemia 01/18/2016 Coagulopathy 01/18/2016 documented as of this encounter (statuses as of 03/12/2023) Resolved Problems Problem Noted Date Diagnosed Date Resolved Date Abdominal pain 05/13/2017 06/01/2018 Alcohol withdrawal seizure w ithout complication 06/07/2016 06/01/2018 Hyponatremia 04/16/2016 06/01/2018 Generalized abdominal pain 04/16/2016 0 06/07/2016 Nausea without vomiting 04/16/2016 030 06/2018 Seizures 01/18/2016 06/07/2016 Delirium tremens 01/18/2016 02/12/2017 Alcohol withdrawal 01/18/2016 7 Tobacco use disorder 01/18/2016 019 Thrombocytopenia 01/18/2016 12/21/2019 Alcohol abuse 01/18/2016 06/01/2018 documented as of this encounter (statuses as of 03/12/2023) Immunizations Name Administration Dates Next Due COVID-19 mRNA, LNP-s, No Pre serve, 2-Dose Series (Moderna) 07/26/2020,06/13/2020 COVID-19, MRNA-LNP, 23-24, P F, 30 MCG/0.3 mL, 12 YRS AND ABOVE, IM (PFIZER-Comirnaty) 01/15/2023 COVID-19, mRNA, LNP-s, PF, B ooster, 100mcg/0.5mg (Moderna) 03/07/2021 Covid-19, Mrna, Lnp-s, Pf, B ivalent, 30 Mcg, IM, 12 yrs and above (Pfizer) 03/08/2022 HEP A - Hepatitis A (Adult > 18 yrs) 02/12/2017, 07/12/2016 Hepatitis B, 20+ yrs 02/12/2017,08/16/2016,07/12 Pneumococcal Polysaccharide PPV23 (Pneumovax) 05/26/2017 Seasonal Influenza, PF, 6 M & above, IM , (FluLaval or Fluzone) 12/17/2022,02/08/2022,11/29/2020,12/12,06/01/2018,02/12/2017 TDAP (age 10 and older)(Boostrix) 11/12/2016 documented as of this encounter Social History Tobacco Use Types Packs/Day Years Used Date Smoking Tobacco: Never Smokeless Tobacco: Current Snuff, Chew Comments:1 can every 2 weeks Alcohol Use Standard Drinks/Week Comments No 0 (1 standard drink = 0.6 oz pure alcohol) prefers tequilla. Stopped again 11/20/2022 PHQ-2 Answer Date Recorded PHQ-2 Score 0 12/21/2019 Sex and Gender Information Value Date Recorded Sex Assigned at Not on file Gender Identity Not on file Sexual Orientation Not on file Job Start Date Occupation Industry Not on file Not on file Not on file documented as of this encounter Functional Status Functional Status Response Date of Assess ment Are you deaf or do you have serious difficulty h earing? No 07/11/2019 Are you blind or do you have serious difficulty seeing, even when wearing glasses? No 07/11/2019 Do you have serious difficul ty walking or climbing stairs? (5 years old or older) No 07/11/2019 Do you have difficulty dress ing or bathing? (5 years old or older) No 07/11/2019 Because of a physical, menta l, or emotional condition, do you have difficulty doing errands alone such as visiting a doctor s office or shopping? (15 years old or older) No 07/11/19 20 Cognitive Status Response Date of Assessm ent Because of a physical, menta l, or emotional condition, do you have serious difficulty concentrating, remembering, or making decisions? (5 years old or older) No 07/11/2019 documented as of this encounter Miscellaneous Notes * Telephone Encounter - Mari Mireles OSA - 03/12/2023 9:08 AM EST I left message on patient's VM to call me (RE: Getting appt rescheduled that he missed yesterday). * Telephone Encounter - Daniela Cox LPN - 03/11/2023 3:44 PM EST Pt spoke with Jacklyn Dong after he didn't show up for his appt today with Dr. Borrego. He's asking for someone to contact him to reschedule. documented in this encounter Plan of Treatment Upcoming Encounters Date Type Department Care Team (Latest Contact Info) Description 05/05/2023 11:15 AM EST Hospital Encounter ENDO [facility], Endoscopy Room [facility] [address] [place] [phone] Jamil Bond MD [address] [place] [address] 05/05/2023 11:15 AM EST - 05/05/2023 11:45 AM EST Surgery [facility], Endoscopy Room [facility] [address] [place] [phone] Jamil Bond MD [address] [place] [address] ESOPHAGOGASTRODUODENOSCOPY (EGD), FLEXIBLE, TRANSORAL, DIAGNOSTIC 05/06/2023 8:30 AM EST Imaging Radiology [address] [place] [address] Scheduled Procedures Name Priority Associated Diagnoses Date/Ti de ESOPHAGOGASTRODUODENOSCOPY ( EGD), FLEXIBLE, TRANSORAL, DIAGNOSTIC Alcoholic cirrhosis of liver with ascites (HCC) 05/05/2023 11:15 AM EST Health Maintenance Due Date Last Done Comments Pneumococcal Vaccine: Pediatrics (0 to 5 Years) and At-Risk Patients (6 to 64 Years) (2 - PCV) 05/26/2018 05/26/2017 Colonoscopy 2018 Fecal Occult Blood Test 2018 Sigmoidoscopy 2018 Depression Screening 12/20/2020 12/21/2019 Cologuard 08/23/2025 08/23/2022, 08/17/2022 Colorectal Cancer Screening 08/23/2025 Diabetes Screening 02/11/2026 02/11/2023, 0 06/05/2022, 03/08/2022, Additional history exists DTaP,Tdap,and Td Vaccines (2 - Td or Tdap) 11/12/2026 11/12/2016 Lipid Panel 02/12/2028 02/11/2023, 12/0 11/2021, 12/02/2018, Additional history exists Hepatitis B Completed 02/12/2017, 07/29, 07/12/2016 Influenza Vaccine (FLU shot) Completed , 02/08/2022, 11/29/2020, Additional history exists COVID-19 Vaccine Completed 01/15/2023, 11/2021, 03/07/2021, Additional history exists GARDASIL-HPV IMMUNIZATION SERIES Aged Out No longer eligible based on patient's age to complete this topic MENINGOCOCCAL (MENACTRA/MENVEO) Aged Out No longer eligible based on patient's age to complete this topic documented as of this encounter Medical Devices Not on filedocumented as of this encounter Advance Directives Latest Code Status on File Code Status Date Activated Date Inactivated Comments Full Code 07/11/2019 11:18 PM 07/16/2019 4:51 PM This order reflects the patients wishes and were consensually agreed upon. Question Answer Comments Discussion of Advance Directives occurred with: Patient Does the patient have a Living Will? No Does the patient have Health Care Power of Court Worker? No Code Status History Code Status Date Activated Date Inactivated Comments Full Code 05/13/2017 8:08 PM 05/15/2017 11:50 PM This order reflects the patients wishes and were consensually agreed upon. Question Answer Comments Discussion of Advance Directives occurred with: Patient Full Code 04/16/2016 8:06 PM 04/19/2016 8:21 PM This order reflects the patients wishes and were consensually agreed upon. Question Answer Comments Discussion of Advance Directives occurred with: Not Discussed Does the patient have a Living Will? No Does the patient have Health Care Power of Court Worker? No Full Code 02/10/2016 5:50 PM 02/20/2016 12:09 AM Th is order reflects the patients wishes and were consensually agreed upon. Question Answer Comments Discussion of Advance Directives occurred with: Patient Does the patient have a Living Will? No Does the patient have Health Care Power of Court Worker? No Full Code 01/15/2016 3:25 PM 01/18/2016 6:24 PM Thi s order reflects the patients wishes and were consensually agreed upon. Question Answer Comments Discussion of Advance Directives occurred with: Patient Does the patient have a Living Will? No Does the patient have Health Care Power of Court Worker? No Care Teams Mobile Development Manager Relationship Specialty Start Date End Date Michelle Borrego DO [address] [place] [address] [place] [address] PCP - General Internal Medicine 06/07/16 documented as of this encounter
--- OUTSIDE RECORDS SUMMARY | 2023-03-13 22:39 | External Medical Summary | Summary of Care ---
Author Name Unknown Organization [facility] Address [address] [facility] [address] Phone [phone] Care Team Providers Care Fisher Trawl Line Name Role Phone Ollie Stein DO Primary Care Provider + [phone] Reason for Visit * Reason Onset Date Comments Medication Refill 03/05/2023 Encounter Details Date Type Department Care Team (Late st Contact Info) Description 03/05/2023 Refill Family Medicine [address] [address] Ollie Stein DO [address] [place] [address] [place] [address] Alcoholic cirrhosis of liver with ascites (HCC) Allergies Active Allergy Reactions Criticality Noted Date Comments Aspirin Other (Please comment) 02/12/2016 Reports having a bloody nose. documented as of this encounter (statuses as of 03/05/2023) Medications Medication Sig Dispensed Refills Start Date [...] 03/04/2023 Active Furosemide 20 MG Oral Tablet (Lasix)Indications :Alcoholic cirrhosis of liver with ascites (HCC) Take 1 Tablet by mouth in the morning. 90 Tablet 3 03/05/2023 Active Furosemide 20 MG Oral Tablet (Lasix)Indications :Alcoholic cirrhosis of liver with ascites (HCC) Take 1 Tablet (20 mg) by mouth in the morning. 90 Tablet 3 02/08/2022 03/05/2023 Discontinue d(Refill) documented as of this encounter (statuses as of 03/05/2023) Active Problems Problem Noted Date Diagnosed Date [...] as of this encounter (statuses as of 03/05/2023) Resolved Problems Problem Noted Date Diagnosed Date Resolved Date Abdominal pain 05/13/2017 06/01/2018 Alcohol withdrawal seizure w ithout complication 06/07/2016 06/01/2018 Hyponatremia 04/16/2016 06/01/2018 Generalized abdominal pain 04/16/2016 0 06/07/2016 Nausea without vomiting 04/16/2016 03/0 06/2018 Seizures 01/18/2016 06/07/2016 Delirium tremens 01/18/2016 02/12/2017 Alcohol withdrawal 01/18/2016 7 Tobacco use disorder 01/18/2016 019 Thrombocytopenia 01/18/2016 12/21/2019 Alcohol abuse 01/18/2016 06/01/2018 documented as of this encounter (statuses as of 03/05/2023) Immunizations Name Administration Dates Next Due COVID-19 [...] yrs 02/12/2017,08/16/2016,07/12 Pneumococcal Polysaccharide PPV23 (Pneumovax) 05/26/2017 SEASONAL INFLUENZA, PF, 6 M & Above, IM , (FLULAVAL or FLUZONE) 12/17/2022,02/08/2022,11/29/2020,12/12,06/01/2018,02/12/2017 TDAP (age 10 and older)(Boostrix) 11/12/2016 [...] encounter Miscellaneous Notes * Telephone Encounter - Ollie Stein DO - 03/05/2023 10:36 AM ESTSigned Prescriptions: Disp Refills Furosemide 20 MG Oral Tablet (Lasix) 90 Tab*3 Sig: Take 1 Tablet by mouth in the morning. Authorizing Provider: OLLIE STEIN * Telephone Encounter - Carline Villalobos CMA - 03/05/2023 10:09 AM ESTPending Prescriptions: Disp Refills Furosemide 20 MG Oral Tablet (Lasix) 90 Tab*3 Sig: Take 1 Tablet by mouth in the morning. * Telephone Encounter - Aisha Jolly Ricky, SONIA - 03/05/2023 9:50 AM EST Did you pend patient's preferred pharmacy and medication before forwarding?yes Pharmacy: [facility], [address] [place] Pending Prescriptions: Disp Refills Furosemide 20 MG Oral Tablet (Lasix) 90 Tab*3 Sig: Take 1 Tablet by mouth in the morning. Last Visit: 02/11/2023 (in office), Visit date not found (telemedicine) Next Visit: 03/11/2023 If no future appointments scheduled, and last appointment is greater than a year ago, please schedule patient for a follow-up appointment Last date the medication was ordered: 02.08.22 Is this request for a controlled substance?No Urine Drug Screen: Results for orders placed or performed in visit on 12/16/16 TOX SCREEN, URINE, W/ CONFIRMATION Result Value Amphetamine NEGATIVE Barbiturates NEGATIVE Benzodiazepines NEGATIVE Cannabinoids NEGATIVE Cocaine Metabolite NEGATIVE Morphine / Codeine NEGATIVE METHADONE METABOLITE NEGATIVE OXYCODONE NEGATIVE TOX COMMENT THE ABOVE SCREENING RESULTS ARE PRESUMPTIVE AND CAN ONLY BE USED FOR MEDICAL PURPOSES. POSITIVE RESULTS REFLEX TO CONFIRMATORY TESTING. Cutoff Concentration Results for orders placed or performed during the hospital encounter of 01/15/16 TOX SCREEN, URINE, W/O CONFIRMATION Result Value AMPHETAMINES NEGATIVE BARBITURATES NEGATIVE BENZODIAZEPINES NEGATIVE CANNABINOIDS NEGATIVE COCAINE METABOLITE NEGATIVE MORPHINE/ CODEINE NEGATIVE METHADONE METABOLITE NEGATIVE OXYCODONE NEGATIVE NOTE: THE ABOVE SCREENING RESULTS ARE PRESUMPTIVE AND CAN ONLY BE USED FOR MEDICAL PURPOSES. CONFIRMATORY TESTING IS AVAILABLE UPON REQUEST. CUTOFF CONCENTRATION Patient Phone Numbers Labs: Lab Results Component Value Date/Time CREAT 0.8 02/11/2023 01:50 PM CREAT 1.2 12/13/2019 04:22 PM POTASSIUM 4.0 02/11/2023 01:50 PM POTASSIUM 4.4 12/13/2019 04:22 PM TSH 2.14 12/16/2016 08:17 AM LDLCALC 97 02/11/2023 01:50 PM LDLCALC 80 12/02/2018 03:14 PM LDLDIRECT 74 03/08/2022 03:35 PM LDLDIRECT NOT APPLICABLE 12/02/2018 03:14 PM ALT 119 (H) 02/11/2023 01:50 PM ALT 29 12/13/2019 04:22 PM HGBA1C 5.6 08/14/2017 02:54 PM documented in this encounter Plan of Treatment Upcoming Encounters Date Type Department Care Team (Latest Contact Info) Description 03/11/2023 2:50 PM EST Office Visit Family Medicine [address] [place] [phone] [place] [address] 05/05/2023 11:15 AM EST Hospital Encounter ENDO [facility], Endoscopy Room [facility] [address] [place] [phone] Jamil Bond MD [address] [place] [address] 05/05/2023 11:15 AM EST - 05/05/2023 11:45 AM EST Surgery [facility], Endoscopy Room [facility] [address] [place] [phone] Jamil Bond MD [address] [place] [address] ESOPHAGOGASTRODUODENOSCOPY (EGD), FLEXIBLE, TRANSORAL, DIAGNOSTIC 05/06/2023 8:30 AM EST Imaging Radiology [address] [place] [address] Scheduled Procedures Name Priority Associated Diagnoses Date/Ti me ESOPHAGOGASTRODUODENOSCOPY ( EGD), FLEXIBLE, TRANSORAL, DIAGNOSTIC Alcoholic [...] Tdap) 11/12/2026 11/12/2016 Lipid Panel 02/12/2028 02/11/2023, 1211/2021, 12/02/2018, Additional history exists Hepatitis B Completed [...] Not on filedocumented as of this encounter Visit Diagnoses Diagnosis Alcoholic cirrhosis of liver with ascites (HCC) Alcoholic cirrhosis of liver Alcoholic cirrhosis of liver with ascites (HCC) Alcoholic cirrhosis of liver documented in this encounter Advance Directives Latest Code Status on File Code Status Date Activated Date Inactivated Comments Full Code 07/11/2019 11:18 PM 07/16/2019 4:51 PM This order reflects the patients wishes and were consensually agreed upon. Question Answer Comments Discussion of Advance Directives occurred with: Patient Does the patient have a Living Will? No Does the patient have Health Care Power of Military Pay Clerk? No Code Status History Code Status Date [...] the patient have Health Care Power of Military Pay Clerk? No Full Code 02/10/2016 5:50 PM 02/20/2016 12:09 AM Th is order reflects the patients wishes and were consensually agreed upon. Question Answer Comments Discussion of Advance Directives occurred with: Patient Does the patient have a Living Will? No Does the patient have Health Care Power of Military Pay Clerk? No Full Code 01/15/2016 3:25 PM 01/18/2016 6:24 PM Thi s order reflects the patients wishes and were consensually agreed upon. Question Answer Comments Discussion of Advance Directives occurred with: Patient Does the patient have a Living Will? No Does the patient have Health Care Power of Military Pay Clerk? No Care Teams Fisher Trawl Line Relationship Specialty Start Date End Date Ollie Stein DO [address] [place] [address] [place] [address] PCP - General Internal Medicine 06/07/16 documented as of this encounter
--- OUTSIDE RECORDS SUMMARY | 2023-03-13 22:40 | External Medical Summary ---
Author Name Unknown Address Unknown Organization [id number]:[facility] - [address] [place] [address] [place] [id number] Laboratory Report Ordering Provider Test Date Status EMIL LEVIN 02/11/2023 13:50:10 Final Observation Date Value Abnormality Reference (Units ) Status BUN 02/11/2023 13:50:10 6 6-20 (mg/dL) Final Creatinine 02/11/2023 13:50:10 0.8 0.6-1.2 (mg/dL) Final Glomerular filtration rate/1.73 sq M.predicted [Volume Rate/Area] in Serum, Plasma or Blood by Creatinine-based formula (CKD-EPI) 02/11/2023 13:50:10 >90 >=60 (mL/min) Final eGFR is calculated based on the CKD-EPI 2020 equation SODIUM 02/11/2023 13:50:10 140 135-146 (m mol/L) Final Potassium 02/11/2023 13:50:10 4.0 3.5-5.1 (m mol/L) Final Cl 02/11/2023 13:50:10 103 98-107 (mm ol/L) Final CO2 02/11/2023 13:50:10 25 22-32 (mmo l/L) Final Anion gap 02/11/2023 13:50:10 12 7-15 (mmol /L) Final Glucose 02/11/2023 13:50:10 113 70-120 (mg /dL) Final Albumin 02/11/2023 13:50:10 4.3 3.8-5.0 (g /dL) Final AST (Aspartate aminotransferase) 02/11/2023 13:50:10 166 Above high normal 10-50 (U/L) Final Alk Phos 02/11/2023 13:50:10 64 35-130 (U/ L) Final Bilirubin, Total 02/11/2023 13:50:10 1.2 <=1 .2 (mg/dL) Final Calcium 02/11/2023 13:50:10 8.7 8.4-10.2 ( mg/dL) Final Protein 02/11/2023 13:50:10 7.4 6.0-8.3 (g /dL) Final ALT (Alanine aminotransferase) 02/11/2023 13:50:10 119 Above high normal 10-50 (U/L) Final Performing Location [facility] - [facility] [address] [facility] [address]
--- OUTSIDE RECORDS SUMMARY | 2023-03-13 22:40 | External Medical Summary | Summary of Care ---
Author Name Unknown Organization [facility] Address [address] [facility] [place] [address] Phone [phone] Care Team Providers Care National Guard Member Name Role Phone BorregoVikashMichelle Mari KEITA Primary Care Provider + [phone] Reason for Visit * Reason Onset Date Comments Hospital Follow-Up 01/16/2023 Jori for [facility] apt reschedule for 01/27 at 3pm Encounter Details Date Type Department Care Team (Late st Contact Info) Description 01/16/2023 Telephone Ancillary [address] [place] [address] Erin Jolley, FELIPE Hospital Follow-Up (Jori for [facility] apt kelsi... Allergies Active Allergy Reactions Criticality Noted Date Comments Aspirin Other (Please comment) 02/12/2016 Reports having a bloody nose. documented as of this encounter (statuses as of 01/28/2023) Medications Medication Sig Dispensed Refills Start Date End Date Status Furosemide 20 MG Oral Tablet (Lasix)Indications:Al coholic cirrhosis of liver with ascites (HCC) Take 1 Tablet (20 mg) by mouth in the morning. 90 Tablet 3 02/08/2022 Active Pantoprazole Sodium 20 MG Oral Tablet Delayed Release (Protonix) TAKE ONE TABLET BY MOUTH EVERY DAY 90 Tablet 3 06/24/2022 Active Potassium Chloride ER 10 MEQ Oral Tablet Extended Release TAKE ONE TABLET BY MOUTH EVERY MORNING 90 Tablet 1 07/23/2022 Active Thiamine HCl 100 MG Oral Tablet Take 1 Tablet by mouth in the morning. 0 11/25/2022 Active Ursodiol 300 MG Oral Capsule (Actigall) TAKE ONE CAPSULE BY MOUTH TWICE DAILY 180 Capsule 12 12/18/2022 Active Nadolol 20 MG Oral Tablet (Corgard) Take 1 Tablet by mouth in the morning. 90 Tablet 3 12/18/2022 Active Zolpidem Tartrate 5 MG Oral Tablet (Ambien)Indications:P rimary insomnia Take 1 Tablet by mouth at bedtime as needed for Sleep. 90 Tablet 1 12/18/2022 Active Citalopram Hydrobromide 10 MG Oral [...] the morning. 90 Tablet 3 01/14/2023 Active documented as of this encounter (statuses as of 01/28/2023) Active Problems Problem Noted Date Diagnosed Date [...] as of this encounter (statuses as of 01/28/2023) Resolved Problems Problem Noted Date Diagnosed Date [...] as of this encounter (statuses as of 01/28/2023) Immunizations Name Administration Dates Next Due COVID-19 [...] or making decisions? (5 years old or older No 07/11/2019 documented as of this encounter Miscellaneous Notes * Telephone Encounter - Michelle Borrego DO - 01/28/2023 12:19 PM EDT Noted. Hopefully he is already in rehab. * Telephone Encounter - Erin Jolley RN - 01/28/2023 11:10 AM EDT Patient NS for appointment yesterday. MYG message still has not been read from 01.17.23 I did call and leave message again re the information below, and if he does call back please transfer him to [phone], but I did leave my direct # for him to call me directly too. Message to Michelle Borrego DO and Jacklyn Dong to make them aware. Patient did cx his hospital follow up and then NS for the appointment yesterday. Reason for Call: Hospital Follow-Up (Jori for [facility] apt reschedule for 01/27 at 3pm) Contact: Telephone Call Contact Type: Care Coordination Outcome: see note Face to face time spent with Patient (minutes): 0 Total Time including non face to face (minutes): 10 * Telephone Encounter - Erin Jolley RN - 01/21/2023 3:15 PM EDT Patient canceled appointment today and reschedule for 01/27/23 * Telephone Encounter - Erin Jolley RN - 01/20/2023 4:03 PM EDT I have tried to call patient and send him a [employer] message regarding the information below. Patient has not returned my call or read the [employer] message sent. Please make him aware [facility] Message sent to Maite and Dr. Lepe to make aware. Patient needs to : patient needs to call [facility] at [phone] and let them know he is interested in Alcohol counseling and medications to quit. He is also needs to call his insurance company (number on the back of his card) to get set up with a Behavior Health Target Protection Specialist because he has [employer] . Patient will need a follow up with Dr. Lepe or other provider after Feb 04 and we will need to make Jacklyn Dong aware of that appointment so she can see him the [facility]. Thanks * Telephone Encounter - Erin Jolley RN - 01/17/2023 2:52 PM EDT Left message for the patient to call the office. * Telephone Encounter - Erin Jolley RN - 01/16/2023 2:22 PM EDT I called and spoke to Jacklyn Dong who will be our Behavior Health CM for [facility] after 02/04. She states patient needs to call [facility] at [phone] and let them know he is interested in Alcohol counseling and medications to quit. He is also to call his insuranceco to get set up with a Behavior Health CM. Patient will need a follow up with Dr. Lepe or otherprovider after Feb 04. I will need to let Jacklyn know of that appointment and she will be able to see him the same day [facility]. Left message for the patient to call the office to go over advice. Reason for Call: Hospital Follow-Up (Jori for [facility]) Contact: Telephone Call Contact Type: Care Coordination Outcome: see above Face to face time spent with Patient (minutes): 0 Total Time including non face to face (minutes): 20 * Telephone Encounter - Allan Lepe MD - 01/16/2023 11:50 AM EDT He should be seeing an addiction counselor. Just asking me for a pill is not sufficient. * Telephone Encounter - Erin Jolley RN - 01/16/2023 11:34 AM EDT Transitions of Care Note Reason for Referral: Recent Admission Phone visit for follow up: Inpatient Hospitalization Admitted to: [facility], Date: 01.14.23 Discharged to: home, patient declined inpatient rehab, Date: 01.15.23 JORI call not indicated due ongoing alcohol abuse c/w decompensated alcoholic cirrhosis with ascites, esophageal varices s/p banding, coagulopathy Patient is sched for hospital follow up to discuss options available for addiction including medications on 01.21.[address] Lepe FYI Message sent to Dr. Lepe to make him aware. documented in this encounter Plan of Treatment Upcoming Encounters Date Type Department Care Team (Latest Contact Info) Description 03/11/2023 2:50 PM EST Office Visit Family Medicine [address] [place] [phone] Michelle Borrego [address] [place] [address] 05/05/2023 11:15 AM EST Hospital Encounter ENDO OSSC, Endoscopy Room [facility] [address] [place], [place] [phone] Jamil Bond MD [address] [place] [address] 05/05/2023 11:15 AM EST - 05/05/2023 11:45 AM EST Surgery ENDO [facility], Endoscopy Room [facility] [address] [place] [address] Jamil Bond MD [address] [place] [address] ESOPHAGOGASTRODUODENOSCOPY (EGD), FLEXIBLE, TRANSORAL, DIAGNOSTIC 05/06/2023 8:30 AM EST Imaging Radiology [address] [place] [address] Scheduled Procedures Name Priority Associated Diagnoses Date/Ti nc ESOPHAGOGASTRODUODENOSCOPY ( EGD), FLEXIBLE, TRANSORAL, DIAGNOSTIC Alcoholic cirrhosis of liver with ascites (HCC) 05/05/2023 11:15 AM EST Health Maintenance Due Date Last Done Comments Pneumococcal Vaccine: Pediatrics (0 to 5 Years) and At-Risk Patients (6 to 64 Years) (2 - PCV) 05/26/2018 05/26/2017 Colonoscopy 2018 Fecal Occult Blood Test 2018 Sigmoidoscopy 2018 Depression Screening 12/20/2020 12/21/2019 Diabetes Screening 06/05/2025 06/05/2022, 1 05/09/2021, 03/07/2021, Additional history exists Cologuard 08/23/2025 08/23/2022, 08/17/2022 Colorectal Cancer Screening 08/23/2025 DTaP,Tdap,and Td Vaccines (2 - Td or Tdap) 11/12/2026 11/12/2016 Lipid Panel 03/08/2027 03/08/2022, 0906/2018, 12/16/2016, Additional history exists Hepatitis B Completed 02/12/2017, [...] the patient have Health Care Power of Plastics Fabrication Supervisor? No Code Status History Code Status Date [...] the patient have Health Care Power of Plastics Fabrication Supervisor? No Full Code 02/10/2016 5:50 PM 02/20/2016 12:09 AM Th is order reflects the patients wishes and were consensually agreed upon. Question Answer Comments Discussion of Advance Directives occurred with: Patient Does the patient have a Living Will? No Does the patient have Health Care Power of Plastics Fabrication Supervisor? No Full Code 01/15/2016 3:25 PM 01/18/2016 6:24 PM Thi s order reflects the patients wishes and were consensually agreed upon. Question Answer Comments Discussion of Advance Directives occurred with: Patient Does the patient have a Living Will? No Does the patient have Health Care Power of Plastics Fabrication Supervisor? No Care Teams National [employer] Member Relationship Specialty Start Date End Date Michelle Borrego DO [address] [place] [address] [place] [address] PCP - General Internal Medicine 06/07/16 documented as of this encounter
--- OUTSIDE RECORDS SUMMARY | 2023-03-13 22:40 | External Medical Summary | Summary of Care ---
Author Name Unknown Organization [facility] Address [address] [facility] [address] Phone [phone] Care Team Providers Care Seam Finisher Name Role Phone Michelle Borrego DO Primary Care Provider + [phone] Reason for Visit * Reason Onset Date Comments Test Results 02/18/2023 Encounter Details Date Type Department Care Team (Late st Contact Info) Description 02/18/2023 Telephone Family Medicine [address] [phone] Michelle Borrego DO [address] [place] [address] [place] [address] Test Results Allergies Active Allergy Reactions Criticality Noted Date Comments Aspirin Other (Please comment) 02/12/2016 Reports having a bloody nose. documented as of this encounter (statuses as of 02/19/2023) Medications Medication Sig Dispensed Refills Start Date [...] (alcohol withdrawal). 15 Capsule 0 02/11/2023 Active documented as of this encounter (statuses as of 02/19/2023) Active Problems Problem Noted Date Diagnosed Date [...] as of this encounter (statuses as of 02/19/2023) Resolved Problems Problem Noted Date Diagnosed Date [...] as of this encounter (statuses as of 02/19/2023) Immunizations Name Administration Dates Next Due COVID-19 [...] Telephone Encounter - Michelle Borrego DO - 02/19/2023 3:35 PM EST Noted. Thank you. * Telephone Encounter - Kristin Harrell LPN - 02/19/2023 1:20 PM EST Patient returned call. Informed of message. Verbalized understanding. He has not drank since Friday 02/16, all alcohol is out of home. He started the librium 3 days ago no problems, He states, he doing "fine." * Telephone Encounter - Daniela Cox LPN - 02/19/2023 12:54 PM EST I tried to call pt- left message on voicemail, and also a message on the landline (which is his parent's but they'll give him the message to call back or read [facility] message). * Telephone Encounter - Shayna Talley RN - 02/19/2023 12:13 PM EST Message left for pt to call us back at [phone] From My G Messages: Your blood work looks good, except your liver enzymes are up and are up in the pattern we typicallysee with alcohol use (AST >ALT). This is not unexpected given your admitted use of alcohol. How are you doing with the medication I gave you(Librium) to help with the withdrawal symptoms? Have you been able to stop entirely? Did you get the alcohol out of your house? Since you liver enzymes are not normal, I want to repeat your liver blood work in about 10 days. You can come in to any [facility] lab to have it drawn. Michelle Borrego DO * Telephone Encounter - Michelle Borrego DO - 02/18/2023 10:24 AM EST Pt did not read his MyG message. Please call to discuss message with him and route back to me. documented in this encounter Plan of Treatment Upcoming Encounters Date Type Department Care Team (Latest Contact Info) Description 03/11/2023 2:50 PM EST Office Visit Family Medicine [address] [place] [phone] Michelle Borrego DO [address] [place] [address] [place] [address] 05/05/2023 11:15 AM EST Hospital Encounter ENDO OSSC, Endoscopy Room [facility] [address] [place] [phone] Jamil Bond MD [address] [place] [address] 05/05/2023 11:15 AM EST - 05/05/2023 11:45 AM EST Surgery ENDO [facility], Endoscopy Room [facility] [address] [place] [phone] Jamil Bond MD [address] [place] [address] ESOPHAGOGASTRODUODENOSCOPY (EGD), FLEXIBLE, TRANSORAL, DIAGNOSTIC 05/06/2023 8:30 AM EST Imaging Radiology [address] [place] [address] Scheduled Procedures Name Priority Associated Diagnoses Date/Ti wi ESOPHAGOGASTRODUODENOSCOPY ( EGD), FLEXIBLE, TRANSORAL, DIAGNOSTIC Alcoholic [...] the patient have Health Care Power of Pipeline Executive? No Code Status History Code Status Date [...] the patient have Health Care Power of Pipeline Executive? No Full Code 02/10/2016 5:50 PM 02/20/2016 12:09 AM Th is order reflects the patients wishes and were consensually agreed upon. Question Answer Comments Discussion of Advance Directives occurred with: Patient Does the patient have a Living Will? No Does the patient have Health Care Power of Pipeline Executive? No Full Code 01/15/2016 3:25 PM 01/18/2016 6:24 PM Thi s order reflects the patients wishes and were consensually agreed upon. Question Answer Comments Discussion of Advance Directives occurred with: Patient Does the patient have a Living Will? No Does the patient have Health Care Power of Pipeline Executive? No Care Teams Seam Finisher Relationship Specialty Start Date End Date Michelle Borrego DO [address] [place] [address] [place] [address] PCP - General Internal Medicine 06/07/16 documented as of this encounter
--- OUTSIDE RECORDS SUMMARY | 2023-03-13 22:40 | External Medical Summary | Summary of Care ---
Author Name Unknown Organization [facility] Address [address] [facility] [place] [address] Phone [phone] Care Team Providers Care Flower Grader Name Role Phone Michelle Borrego Primary Care Provider + [phone] Reason for Visit * Reason Onset Date Comments Hospital Follow-Up 01/16/2023 Jori for [facility] Encounter Details Date Type Department Care Team ([facility] st Contact Info) Description 01/16/2023 Telephone Ancillary [address] [place] [address] Erin Jolley RN Hospital Follow-Up (Jori for [facility]) Allergies Active Allergy Reactions Criticality Noted Date Comments Aspirin Other (Please comment) 02/12/2016 Reports having a bloody nose. documented as of this encounter (statuses as of 01/20/2023) Medications Medication Sig Dispensed Refills Start Date [...] as of this encounter (statuses as of 01/20/2023) Active Problems Problem Noted Date Diagnosed Date [...] as of this encounter (statuses as of 01/20/2023) Resolved Problems Problem Noted Date Diagnosed Date [...] as of this encounter (statuses as of 01/20/2023) Immunizations Name Administration Dates Next Due COVID-19 [...] encounter Miscellaneous Notes * Telephone Encounter - Erin Jolley RN - 01/20/2023 4:03 PM EDT I have tried to call patient and send him a [employer] message regarding the information below. Patient has not returned my call or read the [employer] message sent. Please make him aware [facility] Message sent to Maite and Dr. Lepe to make aware. Patient needs to : patient needs to call [facility] at [phone] and let them know he is interested in Alcohol counseling and medications to quit. He is also needs to call his insurance company (number on the back of his card) to get set up with a Behavior Health Cartoon Artist because he has [employer] . Patient [...] will be our Behavior Health CM for [facility] payne after 02/04. She states patient needs to call [facility] at [phone] and let them know he is interested [...] Reason for Call: Hospital Follow-Up (Jori for [facility]) Contact: Telephone Call Contact Type: Care [...] for follow up: Inpatient Hospitalization Admitted to: [facility], Date: 01.14.23 Discharged to: home, patient declined inpatient rehab, Date: 01.15.23 JORI call not indicated due ongoing alcohol abuse c/w decompensated alcoholic cirrhosis with ascites, esophageal varices s/p banding, coagulopathy Patient is sched for hospital follow up to discuss options available for addiction including medications on 01.21.[address] Lepe FYJaun Message sent to Dr. Lepe to make him aware. documented in this encounter Plan of Treatment Upcoming Encounters Date Type Department Care Team (Latest Contact Info) Description 01/21/2023 3:00 PM EDT Office Visit [address] [place] [phone] Allan Lepe MD [address] [place] [address] [place] [address] 03/11/2023 2:50 PM EST Office Visit [address] [place] [phone] Michelle Borrego [address] [place] [address] 05/05/2023 11:15 AM EST Hospital Encounter ENDO OSS, Endoscopy Room [facility] [address] [place] [phone] Jamil Bond MD [address] [place] [address] 05/05/2023 11:15 AM EST - 05/05/2023 11:45 AM EST Surgery ENDO OSS, Endoscopy Room [facility] [address] [place] [phone] Jamil Bond MD [address] [place] [address] ESOPHAGOGASTRODUODENOSCOPY (EGD), FLEXIBLE, TRANSORAL, DIAGNOSTIC 05/06/2023 8:30 AM EST Imaging Radiology [address] [place] [address] Scheduled Procedures Name Priority Associated Diagnoses Date/Ti ak ESOPHAGOGASTRODUODENOSCOPY ( EGD), FLEXIBLE, TRANSORAL, DIAGNOSTIC Alcoholic [...] the patient have Health Care Power of Product Craftsman? No Code Status History Code Status Date [...] the patient have Health Care Power of Product Craftsman? No Full Code 02/10/2016 5:50 PM 02/20/2016 12:09 AM Th is order reflects the patients wishes and were consensually agreed upon. Question Answer Comments Discussion of Advance Directives occurred with: Patient Does the patient have a Living Will? No Does the patient have Health Care Power of Product Craftsman? No Full Code 01/15/2016 3:25 PM 01/18/2016 6:24 PM Thi s order reflects the patients wishes and were consensually agreed upon. Question Answer Comments Discussion of Advance Directives occurred with: Patient Does the patient have a Living Will? No Does the patient have Health Care Power of Product Craftsman? No Care Teams Flower Grader Relationship Specialty Start Date End Date Michelle Borrego DO [address] [place] [address] [place] [address] PCP - General Internal Medicine 06/07/16 documented as of this encounter
--- OUTSIDE RECORDS SUMMARY | 2023-03-13 22:40 | External Medical Summary | Summary of Care ---
Author Name Unknown Organization [facility] Address [address] [facility] [place] [address] Phone [phone] Care Team Providers Care Autoglazier Name Role Phone Michelle Borrego Primary Care Provider + [phone] Reason for Visit * Reason Onset Date Comments Hospital Follow-Up 01/16/2023 Jori for [facility] Encounter Details Date Type Department Care Team ([facility] st Contact Info) Description 01/16/2023 Telephone Ancillary [address] [place] [address] Erin Jolley RN Hospital Follow-Up (Jori for [facility]) Allergies Active Allergy Reactions Criticality Noted Date Comments Aspirin Other (Please comment) 02/12/2016 Reports having a bloody nose. documented as of this encounter (statuses as of 01/21/2023) Medications Medication Sig Dispensed Refills Start Date [...] as of this encounter (statuses as of 01/21/2023) Active Problems Problem Noted Date Diagnosed Date [...] as of this encounter (statuses as of 01/21/2023) Resolved Problems Problem Noted Date Diagnosed Date [...] as of this encounter (statuses as of 01/21/2023) Immunizations Name Administration Dates Next Due COVID-19 [...] to call patient and send him a [employer] message regarding the information below. Patient has not returned my call or read the [facility] message sent. Please make him aware of [facility] Message sent to Maite and Dr. Lepe to make aware. Patient needs to : patient needs to call [facility] at [phone] and let them know he is interested in Alcohol counseling and medications to quit. He is also needs to call his insurance company (number on the back of his card) to get set up with a Behavior Health Tax Professional because he has [employer] . Patient will need a follow up with Dr. Lepe or other provider after Feb 04 and we will need to make Jacklyn Iker aware of that appointment so she can see him the same day [facility]. Thanks * Telephone Encounter - Erin Jolley RN - 01/17/2023 2:52 PM EDT Left message for the patient to call the office. * Telephone Encounter - Erin Jolley RN - 01/16/2023 2:22 PM EDT I called and spoke to Jacklyntanya Dong who [facility]. She states patient needs to call [facility] at [phone] and let them know he is interested [...] Reason for Call: Hospital Follow-Up (Jori for [facility]) Contact: Telephone Call Contact Type: Care [...] for follow up: Inpatient Hospitalization Admitted to: [facility], Date: 01.14.23 Discharged to: home, patient [...] Department Care Team (Latest Contact Info) Description 01/27/2023 3:00 PM EDT Office Visit [address] [place] [phone] Allan Lepe MD [address] [place] [address] [place] [address] 03/11/2023 2:50 PM EST Office Visit [address] [place] [phone] Michelle Borrego DO [address] [place] [address] [place] [address] 05/05/2023 11:15 AM EST Hospital Encounter ENDO OSSC, Endoscopy Room [facility] [address] [place] [phone] Jamil Bond MD [address] [place] [address] 05/05/2023 11:15 AM EST - 05/05/2023 11:45 AM EST Surgery ENDO O[facility], Endoscopy Room [facility] [address] [place] [phone] Jamil Bond MD [address] [place] [address] ESOPHAGOGASTRODUODENOSCOPY (EGD), FLEXIBLE, TRANSORAL, DIAGNOSTIC 05/06/2023 8:30 AM EST Imaging Radiology [address] [place] [address] Scheduled Procedures Name Priority Associated Diagnoses Date/Ti [...] Tdap) 11/12/2026 11/12/2016 Lipid Panel 03/08/2027 03/08/2022, 09/0 06/2018, 12/16/2016, Additional history exists Hepatitis B Completed [...] the patient have Health Care Power of Sawdust Drier? No Code Status History Code Status Date [...] the patient have Health Care Power of Sawdust Drier? No Full Code 02/10/2016 5:50 PM 02/20/2016 12:09 AM Th is order reflects the patients wishes and were consensually agreed upon. Question Answer Comments Discussion of Advance Directives occurred with: Patient Does the patient have a Living Will? No Does the patient have Health Care Power of Sawdust Drier? No Full Code 01/15/2016 3:25 PM 01/18/2016 6:24 PM Thi s order reflects the patients wishes and were consensually agreed upon. Question Answer Comments Discussion of Advance Directives occurred with: Patient Does the patient have a Living Will? No Does the patient have Health Care Power of Sawdust Drier? No Care Teams Autoglazier Relationship Specialty Start Date End Date Michelle Borrego DO [address] [place] [address] [place] [address] PCP - General Internal Medicine 06/07/16 documented as of this encounter
--- OUTSIDE RECORDS SUMMARY | 2023-03-13 22:40 | External Medical Summary | Summary of Care ---
Author Name Unknown Organization [facility] Address [address] [place] [address] Phone [phone] Care Team Providers Care Material Requirements Planning Manager Name Role Phone Michelle Borrego DO Primary Care Provider + [phone] Reason for Visit * Reason Onset Date Comments Hospital Follow-Up Pt states fee ling "alright". Pt denies any concerns. Hospital Follow-Up 02/11/2023 Encounter Details Date Type Department Care Team (Late st Contact Info) Description 02/11/2023 1:10 PM EST Office Visit Family Medicine [address] [phone] Michelle Borrego [address] [place] [address] Hospital discharge follow-up*; Alcohol withdrawal syndrome with complication (HCC); Alcoholic cirrhosis of liver with ascites (HCC); Persistent insomnia; Hyperlipidemia with target LDL less than 100 Allergies Active Allergy Reactions Criticality Noted Date Comments Aspirin Other (Please comment) 02/12/2016 Reports having a bloody nose. documented as of this encounter (statuses as of 02/11/2023) Medications Medication Sig Dispensed Refills Start Date End Date Status Furosemide 20 MG Oral Tablet (Lasix)Indications :Alcoholic [...] (alcohol withdrawal). 15 Capsule 0 02/11/2023 Active Zolpidem Tartrate 5 MG Oral Tablet (Ambien)Indication s:Primary insomnia Take 1 Tablet by mouth at bedtime as needed for Sleep. 90 Tablet 1 12/18/2022 Discontinued documented as of this encounter (statuses as of 02/11/2023) Active Problems Problem Noted Date Diagnosed Date [...] as of this encounter (statuses as of 02/11/2023) Resolved Problems Problem Noted Date Diagnosed Date [...] as of this encounter (statuses as of 02/11/2023) Immunizations Name Administration Dates Next Due COVID-19 [...] on file documented as of this encounter Last Filed Vital Signs Vital Sign Reading Time Taken Comments Blood Pressure 144/80 02/11/2023 1:05 PM EST Pulse 70 02/11/2023 1:05 PM EST Temperature 37.2 C (99 F) 02/11/2023 1:05 PM EST Respiratory Rate - - Oxygen Saturation 96% 02/11/2023 1:05 PM EST Inhaled Oxygen Concentration - - Weight 87.8 kg (193 lb 9.6 oz) 02/11/2023 1:05 P M EST Height - - Body Mass Index 30.32 06/05/2022 2:17 PM EST documented in this encounter Functional Status Functional Status Response [...] No 07/11/2019 documented as of this encounter Progress Notes * Michelle Borrego, - 02/11/2023 1:07 PM EST SUBJECTIVE: Darrel Guillory is a 47 year old male. Chief Complaint Patient presents with Hospital Follow-Up Pt states feeling "alright". Pt denies any concerns. Hospital Follow-Up Recent Admission: Patient was recently admitted to [facility]. The date of discharge was 01/15/23. Discharge report received and reviewed. Admitted with alcohol withdrawal. Longstanding history of alcohol abuse. Quit when he was diagnosed with decompensated cirrhosis in the past, then restarted recently. Multiple hospitali zations recently due to alcohol use. Citalopram added to medical regimen in addition to the buspar he was already taking. HPI: Darrel Guillory presents today for hospital discharge follow up. Today he reports that the alcohol withdrawal symptoms continue to occur. Shakes - mostly in the evening. Usually about 4 shots per day - all at night - which is when he typically drinks. Was sober for almost 7 years before starting drinking about 6 months ago. He wants to quit - hates feeling the way he does now. Feels anxious from the withdrawal. Feel librium was helpful. Willing to try again. Hesitant to do inpatient/outpatient treatment. Met with the D&A counselor today in the office. Patient Active Problem List Diagnosis Code Macrocytic anemia D53.9 Coagulopathy (HCC) D68.9 Alcoholic cirrhosis of liver with ascites (HCC) K70.31 Secondary esophageal varices without bleeding (HCC) I85.10 Pancreatic cyst K86.2 Controlled substance agreement signed Z79.899 Pre-transplant evaluation for chronic liver disease Z01.818 Chronic cholecystitis K81.1 History of alcohol abuse F10.11 Biliary colic K80.50 Persistent insomnia G47.00 Current Outpatient Medications Medication Sig Dispense Refill Furosemide 20 MG Oral Tablet (Lasix) Take 1 Tablet (20 mg) by mouth in the morning. 90 Tablet 3 Pantoprazole Sodium 20 MG Oral Tablet Delayed Release (Protonix) TAKE ONE TABLET BY MOUTH EVERY DAY90 Tablet 3 Potassium Chloride ER 10 MEQ Oral Tablet Extended Release TAKE ONE TABLET BY MOUTH EVERY MORNING 90Tablet 1 Thiamine HCl 100 MG Oral Tablet Take 1 Tablet by mouth in the morning. Ursodiol 300 MG Oral Capsule (Actigall) TAKE ONE CAPSULE BY MOUTH TWICE DAILY 180 Capsule 12 Nadolol 20 MG Oral Tablet (Corgard) Take 1 Tablet by mouth in the morning. 90 Tablet 3 Zolpidem Tartrate 5 MG Oral Tablet (Ambien) Take 1 Tablet by mouth at bedtime as needed for Sleep. 90 Tablet 1 Citalopram Hydrobromide 10 MG Oral Tablet (CeleXA) Take 1 Tablet by mouth in the morning. 90 Tablet3 busPIRone HCl 5 MG Oral Tablet (Buspar) Take 1 Tablet by mouth in the morning and 1 Tablet before bedtime. 180 Tablet 3 Folic Acid 1 MG Oral Tablet Take 1 Tablet by mouth in the morning. 90 Tablet 3 Spironolactone 25 MG Oral Tablet (Aldactone) Take 1 Tablet by mouth in the morning. 90 Tablet 3 No current facility-administered medications for this visit. Current and discharge medications have been reconciled. Review of patient's allergies indicates: Allergen Reactions Aspirin Other (Please comment) Reports having a bloody nose. OBJECTIVE: BP 144/80 | Pulse 70 | Temp 37.2 C (99 F) | Wt 87.8 kg (193 lb 9.6 oz) | SpO2 96% | BMI 30.32 kg/m | BSA 2.04 m Review Of Systems: Skin: negative Eyes: negative Ears/Nose/Throat: negative Respiratory: negative Cardiovascular: negative Gastrointestinal: negative Genitourinary: negative Musculoskeletal: negative Neurologic: negative Psychiatric: denies depression Hematologic/Lymphatic/Immunologic: negative Endocrine: negative PHYSICAL EXAM: General: alert, healthy, no distress, well nourished, and well developed ASSESSMENT/PLAN: Hospital discharge follow-up (Primary) - DISCH MED RECON CUR MED LIS - LIPID PANEL WITH DIRECT LDL IF TG IS HIGH; Future; Expected date: 02/11/2023 - COMPREHENSIVE METABOLIC PANEL; Future; Expected date: 02/11/2023 - PT INR; Future; Expected date: 02/11/2023 - MAGNESIUM; Future; Expected date: 02/11/2023 - VITAMIN B12; Future; Expected date: 02/11/2023 - FOLIC ACID; Future; Expected date: 02/11/2023 Alcohol withdrawal syndrome with complication (HCC) - he is interested in quitting completely. Willing to use librium instead of alcohol to help with his withdrawal symptoms. Will have him use 25 mg every 6 hours as needed based on symptoms. If symptoms are mild, or the effects of 25 mg is too intense he can try taking 1/2 a pill. Advised to call if this dose seems insufficient but DO NOT increase dose on his own. Get all alcohol out of the office. D&A counselor to touch base with him in a few weeks. Alcoholic cirrhosis of liver with ascites (HCC) Persistent insomnia - stop Ambien. He can use librium instead as needed. Hyperlipidemia with target LDL less than 100 - LIPID PANEL WITH DIRECT LDL IF TG IS HIGH; Future; Expected date: 02/11/2023 Other orders - chlordiazePOXIDE HCl 25 MG Oral Capsule (Librium); Take 1 Capsule by mouth every 6 hours as needed (alcohol withdrawal). Follow Up: Return for as scheduled. | For: as scheduled | Check-out note: Labs today. Michelle Borrego DO I spent a total of 30-39 minutes (exact time 32 mins) on the date of service in preparation, delivery, and documentation of the care provided to Darrel Guillory excluding any time spent in the performance of separately billed services. documented in this encounter Plan of Treatment Upcoming Encounters Date Type Department Care Team (Latest Contact Info) Description 03/11/2023 2:50 PM EST Office Visit Family Medicine [address] [place] [phone] Michelle Borrego DO [address] [place] [address] [place] [address] 05/05/2023 11:15 AM EST Hospital Encounter ENDO [facility], Endoscopy Room [facility] [address] [phone] Jamil Bond MD [address] [place] [address] 05/05/2023 11:15 AM EST - 05/05/2023 11:45 AM EST Surgery ENDO [facility], Endoscopy Room [facility] [address] [place] [phone] Jamil Bond MD [address] [place] [address] ESOPHAGOGASTRODUODENOSCOPY (EGD), FLEXIBLE, TRANSORAL, DIAGNOSTIC 05/06/2023 8:30 AM EST Imaging Radiology [address] [place] [address] Pending Results Name Type Priority Associated Diagnoses Date /Time LIPID PANEL WITH DIRECT LDL IF TG IS HIGH Lab Routine Hospital discharge follow-up Hyperlipidemia with target LDL less than 100 02/11/2023 1:50 PM EST COMPREHENSIVE METABOLIC PANEL Lab Routine Hospital discharge follow-up 02/11/2023 1:50 PM EST PT INR Lab Routine Hospital discharge follow-up 02/11/2023 1:50 PM EST MAGNESIUM Lab Routine Hospital discharge follow-up 02/11/2023 1:50 PM EST VITAMIN B12 Lab Routine Hospital discharge follow-up 02/11/2023 1:50 PM EST FOLIC ACID Lab Routine Hospital discharge follow-up 02/11/2023 1:50 PM EST Scheduled Orders Name Type Priority Associated Diagnoses Orde r Schedule LIPID PANEL WITH DIRECT LDL IF TG IS HIGH Lab Routine Hospital discharge follow-up Hyperlipidemia with target LDL less than 100 Expected: 02/11/2023, Expires: 02/12/2024 COMPREHENSIVE METABOLIC PANEL Lab Routine Hospital discharge follow-up Expected: 02/11/2023 (Approximate), Expires: 02/11/2024 PT INR Lab Routine Hospital discharge follow-up Expected: 02/11/2023 (Approximate), Expires: 02/11/2024 MAGNESIUM Lab Routine Hospital discharge follow-up Expected: 02/11/2023 (Approximate), Expires: 02/11/2024 VITAMIN B12 Lab Routine Hospital discharge follow-up Expected: 02/11/2023 (Approximate), Expires: 02/11/2024 FOLIC ACID Lab Routine Hospital discharge follow-up Expected: 02/11/2023 (Approximate), Expires: 02/11/2024 Scheduled Procedures Name Priority Associated Diagnoses Date/Ti la ESOPHAGOGASTRODUODENOSCOPY ( EGD), FLEXIBLE, TRANSORAL, DIAGNOSTIC Alcoholic [...] Tdap) 11/12/2026 11/12/2016 Lipid Panel 03/08/2027 03/08/2022, 090 06/2018, 12/16/2016, Additional history exists Hepatitis B [...] as of this encounter Visit Diagnoses Diagnosis Hospital discharge follow-up- Primary Other follow-up examination Alcohol withdrawal syndrome with complication (HCC) Alcoholic cirrhosis of liver with ascites (HCC) Alcoholic cirrhosis of liver Persistent insomnia Persistent disorder of initiating or maintaining sleep Hyperlipidemia with target LDL less than 100 Other and unspecified hyperlipidemia Alcoholic cirrhosis of liver with ascites (HCC) [...] the patient have Health Care Power of Prison Warden? No Code Status History Code Status Date [...] the patient have Health Care Power of Prison Warden? No Full Code 02/10/2016 5:50 PM 02/20/2016 12:09 AM Th is order reflects the patients wishes and were consensually agreed upon. Question Answer Comments Discussion of Advance Directives occurred with: Patient Does the patient have a Living Will? No Does the patient have Health Care Power of Prison Warden? No Full Code 01/15/2016 3:25 PM 01/18/2016 6:24 PM Thi s order reflects the patients wishes and were consensually agreed upon. Question Answer Comments Discussion of Advance Directives occurred with: Patient Does the patient have a Living Will? No Does the patient have Health Care Power of Prison Warden? No Care Teams Material Requirements Planning Manager Relationship Specialty Start Date End Date Michelle Borrego DO [address] [place] [address] [place] [address] PCP - General Internal Medicine 06/07/16 documented as of this encounter
--- OUTSIDE RECORDS SUMMARY | 2023-03-13 22:40 | External Medical Summary | Summary of Care ---
Author Name Unknown Organization [facility] Address [address] [facility] [place] [place] [address] Phone [phone] Care Team Providers Care Pool Attendant Name Role Phone BorregoVikashMichelle Mari KEITA Primary Care Provider + [phone] Reason for Visit * Reason Comments Outpatient Testing Encounter Details Date Type Department Care Team (Late st Contact Info) Description 02/11/2023 2:00 PM EST Laboratory Laboratory [address] [place] [phone] [address] [place] [address] Hospital discharge follow-up; Hyperlipidemia with target LDL less than 100 [...] Delirium tremens 01/18/2016 02/12/2017 Alcohol withdrawal 01/18/2016 11/15/201 7 Tobacco use disorder 01/18/2016 019 Thrombocytopenia [...] No 07/11/2019 documented as of this encounter Plan of Treatment Upcoming Encounters Date Type Department Care Team (Latest Contact Info) Description 03/11/2023 2:50 PM EST Office Visit Family Medicine [address] [place] [phone] [address] [place] [address] 05/05/2023 11:15 AM EST Hospital Encounter ENDO [facility], Endoscopy Room [facility] [address] [place] [phone] Jamil Bond MD [address] [place] [address] 05/05/2023 11:15 AM EST - 05/05/2023 11:45 AM EST Surgery ENDO [facility], Endoscopy Room [facility] [address] [place] [phone] Jamil Bond MD [address] [place] [address] ESOPHAGOGASTRODUODENOSCOPY (EGD), FLEXIBLE, TRANSORAL, DIAGNOSTIC 05/06/2023 8:30 AM EST Imaging Radiology [address] [place] [address] Pending Results Name Type Priority Associated Diagnoses [...] discharge follow-up 02/11/2023 1:50 PM EST Scheduled Procedures Name Priority Associated Diagnoses Date/Ti [...] this encounter Visit Diagnoses Diagnosis Hospital discharge follow-up Other follow-up examination Hyperlipidemia with target LDL less than 100 [...] the patient have Health Care Power of Physical Scientist? No Code Status History Code Status Date [...] the patient have Health Care Power of Physical Scientist? No Full Code 02/10/2016 5:50 PM 02/20/2016 12:09 AM Th is order reflects the patients wishes and were consensually agreed upon. Question Answer Comments Discussion of Advance Directives occurred with: Patient Does the patient have a Living Will? No Does the patient have Health Care Power of Physical Scientist? No Full Code 01/15/2016 3:25 PM 01/18/2016 6:24 PM Thi s order reflects the patients wishes and were consensually agreed upon. Question Answer Comments Discussion of Advance Directives occurred with: Patient Does the patient have a Living Will? No Does the patient have Health Care Power of Physical Scientist? No Care Teams Pool Attendant Relationship Specialty Start Date End Date Michelle Borrego DO [address] [place] [address] [place] [address] PCP - General Internal Medicine 06/07/16 documented as of this encounter
--- OUTSIDE RECORDS SUMMARY | 2023-03-13 22:40 | External Medical Summary ---
Author Name Unknown Address Unknown Organization K01:LABORATORY [facility] - [address] [place] [address] Laboratory Report Ordering Provider Test Date Status EMIL LEVIN 02/11/2023 13:50:10 Final Observation Date Value Abnormality Reference (Units ) Status Vitamin B12 02/11/2023 13:50:10 608 503-3162 (pg/mL) Final Performing Location [facility] - [address] [place] [address]
--- OUTSIDE RECORDS SUMMARY | 2023-03-13 22:40 | External Medical Summary ---
Author Name Unknown Address Unknown Organization K01:LABORATORY [facility] - [address] [place] [address] Laboratory Report Ordering Provider Test Date Status EMIL LEVIN 02/11/2023 13:50:10 Final Observation Date Value Abnormality Reference (Units ) Status Folic Acid 02/11/2023 13:50:10 14.1 >4.5 (ng/ mL) Final Performing Location [facility] - [address] [place] [address]
--- OUTSIDE RECORDS SUMMARY | 2023-03-13 22:40 | External Medical Summary | Summary of Care ---
Author Name Unknown Organization [facility] Address [address] [place] [address] Phone [phone] Care Team Providers Care Freight Car Inspector Name Role Phone Ollie Stein Primary Care Provider + [phone] Reason for Visit * Reason Comments eRx-Medication Refill Encounter Details Date Type Department Care Team (Late st Contact Info) Description 03/04/2023 Refill Family Medicine [address] [phone] Allan Lepe MD [address] [place] [address] [place] [address] Allergies Active Allergy Reactions Criticality Noted Date Comments Aspirin Other (Please comment) 02/12/2016 Reports having a bloody nose. documented as of this encounter (statuses as of 03/04/2023) Medications Medication Sig Dispensed Refills Start Date [...] EVERY MORNING 90 Tablet 3 03/04/2023 Active Potassium Chloride ER 10 MEQ Oral Tablet Extended Release TAKE ONE TABLET BY MOUTH EVERY MORNING 90 Tablet 1 07/23/2022 3 Discontinued documented as of this encounter (statuses as of 03/04/2023) Active Problems Problem Noted Date Diagnosed Date [...] as of this encounter (statuses as of 03/04/2023) Resolved Problems Problem Noted Date Diagnosed Date [...] as of this encounter (statuses as of 03/04/2023) Immunizations Name Administration Dates Next Due COVID-19 [...] encounter Miscellaneous Notes * Telephone Encounter - Ondina Liriano [facility] - 03/04/2023 8:24 PM ESTSigned Prescriptions: Disp Refills Potassium Chloride ER 10 MEQ Oral Tablet E*90 Tab*3 Sig: TAKE ONE TABLET BY MOUTH EVERY MORNINGAuthorizing Provider: OLLIE STEINOrdercaryl User: ONDINA LIRIANO documented in this encounter Plan of Treatment Upcoming Encounters Date Type Department Care Team (Latest Contact Info) Description 03/11/2023 2:50 PM EST Office Visit Family Medicine [address] [place] [phone] Ollie Stein DO [address] [place] [address] [place] [address] 05/05/2023 11:15 AM EST Hospital Encounter [facility], Endoscopy Room [facility] [place] [address] Jamil Bond MD [address] [place] [address] 05/05/2023 11:15 AM EST - 05/05/2023 11:45 AM EST Surgery END[facility], Endoscopy Room [facility] [address] [place] [phone] Jamil Bond MD [address] [place] [address] ESOPHAGOGASTRODUODENOSCOPY (EGD), FLEXIBLE, TRANSORAL, DIAGNOSTIC 05/06/2023 8:30 AM EST Imaging Radiology [address] [place] [address] Scheduled Procedures Name Priority Associated Diagnoses Date/Ti [...] Tdap) 11/12/2026 11/12/2016 Lipid Panel 02/12/2028 02/11/2023, 12/11/2021, 12/02/2018, Additional history exists Hepatitis B Completed [...] the patient have Health Care Power of Percher? No Code Status History Code Status Date [...] the patient have Health Care Power of Percher? No Full Code 02/10/2016 5:50 PM 02/20/2016 12:09 AM Th is order reflects the patients wishes and were consensually agreed upon. Question Answer Comments Discussion of Advance Directives occurred with: Patient Does the patient have a Living Will? No Does the patient have Health Care Power of Percher? No Full Code 01/15/2016 3:25 PM 01/18/2016 6:24 PM Thi s order reflects the patients wishes and were consensually agreed upon. Question Answer Comments Discussion of Advance Directives occurred with: Patient Does the patient have a Living Will? No Does the patient have Health Care Power of Percher? No Care Teams Freight Car Inspector Relationship Specialty Start Date End Date Ollie Stein DO [address] [place] [address] [place] [address] PCP - General Internal Medicine 06/07/16 documented as of this encounter
--- OUTSIDE RECORDS SUMMARY | 2023-03-13 22:40 | External Medical Summary | Summary of Care ---
Author Name Unknown Organization [facility] Address [address] [facility] [place] [address] Phone [phone] Care Team Providers Care Multicut Line Operator Name Role Phone BorregoVikashMichelle Mari KEITA Primary Care Provider + [phone] Reason for Visit * Reason Onset Date Comments Hospital Follow-Up 01/16/2023 Jori for [facility] apt reschedule for 01/27 at 3pm Encounter Details Date Type Department Care Team (Late st Contact Info) Description 01/16/2023 Telephone Ancillary [address] [place] [address] Erin Jolley, FELIPE Hospital Follow-Up (Jori for [facility] apt kelsi... Allergies Active Allergy Reactions [...] does call back please transfer him to [phone], but I did leave my direct # for him to call me directly too. Message to Michelle Borrego DO and Jacklyn Dong to make them aware. Patient did cx his hospital follow up and then NS for the appointment yesterday. Reason for Call: Hospital Follow-Up (Jori for [facility] apt reschedule for 01/27 at 3pm) [...] to call patient and send him a kenxus message regarding the information below. Patient has not returned my call or read the Buck message sent. Please make him aware of advice [facility]. Message sent to Maite and Dr. Lepe to make aware. Patient needs to : patient needs to call [facility] at [phone] and let them know he is interested in Alcohol counseling and medications to quit. He is also needs to call his insurance company (number on the back of his card) to get set up with a Behavior Health [employer] because he has [employer] . Patient [...] [facility]. She states patient needs to call [facility] at [phone] and let them know he is interested [...] Reason for Call: Hospital Follow-Up (Jori for [facility]) Contact: Telephone Call Contact Type: Care [...] for follow up: Inpatient Hospitalization Admitted to: [facility], Date: 01.14.23 Discharged to: home, patient [...] 2:50 PM EST Office Visit Family Medicine [address] [place] [phone] [place] [address] 05/05/2023 11:15 AM EST Hospital Encounter [facility], Endoscopy Room [facility] [address] [place] [phone] Jamil Bond MD [address] [place] [address] 05/05/2023 11:15 AM EST - 05/05/2023 11:45 AM EST Surgery [facility], Endoscopy Room [facility] [address] [place] [phone] Jamil Bond MD [address] [place] [address] ESOPHAGOGASTRODUODENOSCOPY (EGD), FLEXIBLE, TRANSORAL, DIAGNOSTIC 05/06/2023 8:30 AM EST Imaging Radiology [address] [place] [address] Scheduled Procedures Name Priority Associated Diagnoses Date/Ti il ESOPHAGOGASTRODUODENOSCOPY ( EGD), FLEXIBLE, TRANSORAL, DIAGNOSTIC Alcoholic [...] the patient have Health Care Power of Bio Medical Technician? No Code Status History Code Status Date [...] the patient have Health Care Power of Bio Medical Technician? No Full Code 02/10/2016 5:50 PM 02/20/2016 12:09 AM Th is order reflects the patients wishes and were consensually agreed upon. Question Answer Comments Discussion of Advance Directives occurred with: Patient Does the patient have a Living Will? No Does the patient have Health Care Power of Bio Medical Technician? No Full Code 01/15/2016 3:25 PM 01/18/2016 6:24 PM Thi s order reflects the patients wishes and were consensually agreed upon. Question Answer Comments Discussion of Advance Directives occurred with: Patient Does the patient have a Living Will? No Does the patient have Health Care Power of Bio Medical Technician? No Care Teams Multicut Line Operator Relationship Specialty Start Date End Date Michelle Borrego DO [address] [place] [address] [place] [address] PCP - General Internal Medicine 06/07/16 documented as of this encounter
--- OUTSIDE RECORDS SUMMARY | 2023-03-13 22:40 | External Medical Summary ---
Author Name Unknown Address Unknown Organization K01:[facility]ATORY [facility] - [address] [place] [address] Laboratory Report Ordering Provider Test Date Status EMIL LEVIN 02/11/2023 13:50:10 Final Observation Date Value Abnormality Reference (Units ) Status Magnesium 02/11/2023 13:50:10 1.7 1.5-2.6 (m g/dL) Final Performing Location [facility] - [address] [place] [address]
--- OUTSIDE RECORDS SUMMARY | 2023-03-13 22:40 | External Medical Summary | Summary of Care ---
Author Name Unknown Organization [facility] Address [address] [facility] [place] [address] Phone [phone] Care Team Providers Care Rivet Maker Name Role Phone BorregoVikashMichelle Mari KEITA Primary Care Provider + [phone] Reason for Visit * Reason Onset Date Comments Hospital Follow-Up 01/16/2023 Jori for [facility] apt reschedule for 01/27 at 3pm Encounter Details Date Type Department Care Team (Late st Contact Info) Description 01/16/2023 Telephone Ancillary [address] [place] [phone] Erin Jolley, FELIPE Hospital Follow-Up (Jori for [facility] apt kelsi... Allergies Active Allergy Reactions Criticality Noted Date Comments Aspirin Other (Please comment) 02/12/2016 Reports having a bloody nose. documented as of this encounter (statuses as of 01/27/2023) Medications Medication Sig Dispensed Refills Start Date [...] as of this encounter (statuses as of 01/27/2023) Active Problems Problem Noted Date Diagnosed Date [...] as of this encounter (statuses as of 01/27/2023) Resolved Problems Problem Noted Date Diagnosed Date [...] as of this encounter (statuses as of 01/27/2023) Immunizations Name Administration Dates Next Due COVID-19 [...] to call patient and send him a [employer] message regarding the information below. Patient has not returned my call or read the [employer] message sent. Please make him aware of [facility]. Message sent to Maite and Dr. Lepe to make aware. Patient needs to : patient needs to call [facility] at [phone] and let them know he is interested in Alcohol counseling and medications to quit. He is also needs to call his insurance company (number on the back of his card) to get set up with a Behavior Health National Accounts Sales because he has Blue Cross . Patient [...] 02/04. She states patient needs to call [facility] at [phone] and let them know he is interested [...] Reason for Call: Hospital Follow-Up (Jori for [facility]) Contact: Telephone Call Contact Type: Care [...] for follow up: Inpatient Hospitalization Admitted to: [facility], Date: 01.14.23 Discharged to: home, patient declined inpatient rehab, Date: 01.15.23 JORI call not indicated due ongoing alcohol abuse c/w decompensated alcoholic cirrhosis with ascites, esophageal varices s/p banding, coagulopathy Patient is sched for hospital follow up to discuss options available for addiction including medications on 01.21.[address] Roberth CRUM Message sent to Dr. Lepe to make him aware. documented in this encounter Plan of Treatment Upcoming Encounters Date Type Department Care Team (Latest Contact Info) Description 01/27/2023 3:00 PM EDT Office Visit Family Medicine [address] [place] [phone] Allan Lepe MD [address] [place] [address] [place] [address] 03/11/2023 2:50 PM EST Office Visit [address] [place] [phone] Michelle Borrego [address] [place] [address] 05/05/2023 11:15 AM EST Hospital Encounter ENDO [facility], Endoscopy Room [facility] [address] [place] [phone] Jamil Bond MD [address] [place] [address] 05/05/2023 11:15 AM EST - 05/05/2023 11:45 AM EST Surgery ENDO [facility], Endoscopy Room [facility] [address] [place] [phone] Jamil Bond MD [address] [place] [address] ESOPHAGOGASTRODUODENOSCOPY (EGD), FLEXIBLE, TRANSORAL, DIAGNOSTIC 05/06/2023 8:30 AM EST Imaging Radiology [address] [place] [phone] Scheduled Procedures Name Priority Associated Diagnoses Date/Ti [...] the patient have Health Care Power of Field Geologist? No Code Status History Code Status Date [...] the patient have Health Care Power of Field Geologist? No Full Code 02/10/2016 5:50 PM 02/20/2016 12:09 AM Th is order reflects the patients wishes and were consensually agreed upon. Question Answer Comments Discussion of Advance Directives occurred with: Patient Does the patient have a Living Will? No Does the patient have Health Care Power of Field Geologist? No Full Code 01/15/2016 3:25 PM 01/18/2016 6:24 PM Thi s order reflects the patients wishes and were consensually agreed upon. Question Answer Comments Discussion of Advance Directives occurred with: Patient Does the patient have a Living Will? No Does the patient have Health Care Power of Field Geologist? No Care Teams Rivet Maker Relationship Specialty Start Date End Date Michelle Borrego DO [address] [place] [address] [place] [address] PCP - General Internal Medicine 06/07/16 documented as of this encounter
--- OUTSIDE RECORDS SUMMARY | 2023-03-13 22:40 | External Medical Summary | Summary of Care ---
Author Name Unknown Organization [facility] Address [address] [place] [facility] [place] [address] Phone [phone] Care Team Providers Care Mri Ct Tech Name Role Phone SteinVikashOllie Mari KEITA Primary Care Provider + [phone] Reason for Visit * Reason Comments Outpatient Testing Encounter Details Date Type Department Care Team (Late st Contact Info) Description 02/11/2023 2:00 PM EST Laboratory Laboratory [address] [place] [phone] [place] [address] Alcohol abuse*; Hospital discharge follow-up; Hyperlipidemia with target LDL less than 100 Allergies Active Allergy Reactions Criticality Noted Date Comments Aspirin Other (Please comment) 02/12/2016 Reports having a bloody nose. documented as of this encounter (statuses as of 02/13/2023) Medications Medication Sig Dispensed Refills Start Date [...] as of this encounter (statuses as of 02/13/2023) Active Problems Problem Noted Date Diagnosed Date [...] as of this encounter (statuses as of 02/13/2023) Resolved Problems Problem Noted Date Diagnosed Date [...] as of this encounter (statuses as of 02/13/2023) Immunizations Name Administration Dates Next Due COVID-19 [...] as of this encounter Miscellaneous Notes * Addendum Note - Ollie Stein DO - 02/13/2023 12:56 PM ESTAddended by: OLLIE STEIN on: 02/13/2023 12:56 PM Modules accepted: Orders documented in this encounter Plan of Treatment Upcoming Encounters Date Type Department Care Team (Latest Contact Info) Description 03/11/2023 2:50 PM EST Office Visit Family Medicine [address] [place] [phone] Ollie Stein DO [address] [place] [address] [place] [address] 05/05/2023 11:15 AM EST Hospital Encounter ENDO [facility], Endoscopy Room [facility] [address] [place] [phone] Jamil Bond MD [address] [place] [address] 05/05/2023 11:15 AM EST - 05/05/2023 11:45 AM EST Surgery ENDO [facility], Endoscopy Room [facility] [address] [place] [phone] Jamil Bond MD [address] [place] [address] ESOPHAGOGASTRODUODENOSCOPY (EGD), FLEXIBLE, TRANSORAL, DIAGNOSTIC 05/06/2023 8:30 AM EST Imaging Radiology [address] [place] [address] Scheduled Orders Name Type Priority Associated Diagnoses Orde r Schedule HEPATIC FUNCTION PANEL Lab Routine Alcohol abuse Expected: 02/24/2023, Expires: 02/13/2024 Scheduled Procedures Name Priority Associated Diagnoses Date/Ti ny ESOPHAGOGASTRODUODENOSCOPY ( EGD), FLEXIBLE, TRANSORAL, DIAGNOSTIC Alcoholic [...] Not on filedocumented as of this encounter Procedures Procedure Name Priority Date/Time Associated Diagnosis Comments LIPID PANEL WITH DIRECT LDL IF TG IS HIGH Routine 02/11/2023 1:50 PM EST Hospital discharge follow-up Hyperlipidemia with target LDL less than 100 COMPREHENSIVE METABOLIC PANEL Routine 02/11/2023 1:50 PM EST Hospital discharge follow-up FOLIC ACID Routine 02/11/2023 1:50 PM EST Hospital discharge follow-up PT INR Routine 02/11/2023 1:50 PM EST Hospital discharge follow-up MAGNESIUM Routine 02/11/2023 1:50 PM EST Hospital discharge follow-up VITAMIN B12 Routine 02/11/2023 1:50 PM EST Hospital discharge follow-up documented in this encounter Results * FOLIC ACID (02/11/2023 1:50 PM EST) Folic Acid 14.1 >4.5 ng/mL 02/12/2023 12:23 AM EST LABORATORY GM Blood Venous blood specimen / Unknown Venipuncture / Unknown 02/11/2023 1:50 PM EST 02/11/2023 1:53 PM EST Ollie Stein DO LAB BLOOD ORDERABLES LABORATORY [facility] [address] [place], [place] [id number] * VITAMIN B12 (02/11/2023 1:50 PM EST) Vitamin B12 515 232 - 1,245 pg/mL 02/12/2023 12:23 AM EST LABORATORY [facility] Blood Venous blood specimen / Unknown Venipuncture / Unknown 02/11/2023 1:50 PM EST 02/11/2023 1:53 PM EST Ollie Stein DO LAB BLOOD ORDERABLES LABORATORY [facility] [address] [place] [address] * MAGNESIUM (02/11/2023 1:50 PM EST) Magnesium 1.7 1.5 - 2.6 mg/dL 02/11/2023 11:04 PM EST LABORATORY [facility] Blood Venous blood specimen / Unknown Venipuncture / Unknown 02/11/2023 1:50 PM EST 02/11/2023 1:53 PM EST Ollie Stein LAB BLOOD ORDERABLES Performing Organization Address [facility] [place] Phone Number LABORATORY [facility] [address] [place] [address] * PT INR (02/11/2023 1:50 PM EST) Prothrombin Time 14.8 11.6 - 15.2 seconds 02/11/2023 11:23 PM EST LABORATORY [facility] INR 1.1 0.8 - 1.2 02/11/2023 11:23 PM EST LABORATORY [facility] Blood Venous blood specimen / Unknown Venipuncture / Unknown 02/11/2023 1:50 PM EST 02/11/2023 1:53 PM EST Narrative LABORATORY [facility] - 02/11/2023 11:23 PM EST Warfarin Therapy INR: 2.0-3.0 conventional anticoagulation INR: 2.5-3.5 high intensity anticoagulation Ollie Stein LAB BLOOD ORDERABLES Performing Organization Address City/[facility]/ZIP Co de Phone Number LABORATORY [facility] [address] [place] [address] * (ABNORMAL) COMPREHENSIVE METABOLIC PANEL (02/11/2023 1:50 PM EST) BUN 6 6 - 20 mg/dL 02/11/2023 11:04 PM EST LABORATORY [facility] Creatinine 0.8 0.6 - 1.2 mg/dL 02/11/2023 11:04 PM EST LAB[facility]ATORY [facility] Estimated Glomerular Filtration Rate >90 >=60 mL/min 02/11/2023 11:04 PM EST LABORATORY [facility] Comment:eGFR is calculated b ased on the CKD-EPI 2020 equation Sodium 140 135 - 146 mmol/L 02/11/2023 11:04 PM EST LABORATORY C Potassium 4.0 3.5 - 5.1 mmol/L 02/11/2023 11:04 PM EST LABORATORY [facility] Chloride 103 98 - 107 mmol/L 02/11/2023 11:04 PM EST LABORATORY C CO2 25 22 - 32 mmol/L 02/11/2023 11:04 PM EST LABORATORY C Anion Gap 12 7 - 15 mmol/L 02/11/2023 11:04 PM EST LABORATORY C Glucose 113 70 - 120 mg/dL 02/11/2023 11:04 PM EST LABORATORY C Albumin 4.3 3.8 - 5.0 g/dL 02/11/2023 11:04 PM EST LABORATORY C AST 166(H) 10 - 50 U/L 02/11/2023 11:04 PM EST LABORATORY C Alkaline Phosphatase 64 35 - 130 U/L 02/11/2023 11:04 PM EST LABORATORY C Bilirubin, Total 1.2 <=1.2 mg/dL 02/11/2023 11:04 PM EST LABORATORY C Calcium 8.7 8.4 - 10.2 mg/dL 02/11/2023 11:04 PM EST LABORATORY C Protein 7.4 6.0 - 8.3 g/dL 02/11/2023 11:04 PM EST LABORATORY [facility] ALT 119(H) 10 - 50 U/L 02/11/2023 11:04 PM EST LABORATORY [facility] Blood Venous blood specimen / Unknown Venipuncture / Unknown 02/11/2023 1:50 PM EST 02/11/2023 1:53 PM EST Ollie Stein DO LAB BLOOD ORDERABLES LABORATORY [facility] [address] [place] [address] * (ABNORMAL) LIPID PANEL WITH DIRECT LDL IF TG IS HIGH (02/11/2023 1:50 PM EST) Triglycerides 144 <=174 mg/dL 02/11/2023 11:04 PM EST LABORATORY [facility] Comment: Triglyceride Reference Ranges (mg/dL): <150 Acceptable 150-174 Borderline high 175-499 High >=500 Very high Cholesterol 200(H) <200 mg/dL 02/11/2023 11:04 PM EST LABORATORY [facility] Comment: Total Cholesterol Reference Ranges (mg/dL): <200 Desirable 200-239 Borderline high >=240 High HDL Cholesterol 74 >39 mg/dL 11:04 PM EST LABORATORY [facility] Comment: HDL Cholesterol Reference Ranges (mg/dL): >=60 High (Desirable) <50 Low (Undesirable) For Females <40 Low (Undesirable) For Males Non-HDL Cholesterol 126 <=159 mg/dL 02/11/2023 11:04 PM EST LABORATORY [facility] Comment: Non-HDL Cholesterol Reference Range (mg/dL): <100 Target level for high risk ASCVD patient <130 Optimal for general population 130-159 Near optimal for general population 160-189 Borderline High 190-219 High >=220 Very High LDL Cholesterol 97 <=129 mg/dL 02/11/2023 11:04 PM EST LABORATORY [facility] Comment: LDL Cholesterol Reference Ranges (mg/dL): <70 Target level for high risk ASCVD patient <100 Optimal for general population 100-129 Near optimal for general population 130-159 Borderline high 160-189 High >=190 Very high Blood Venous blood specimen / Unknown Venipuncture / Unknown 02/11/2023 1:50 PM EST 02/11/2023 1:53 PM EST Ollie Stein DO LAB BLOOD ORDERABLES LABORATORY [facility] [address] [place] [address] documented in this encounter Visit Diagnoses Diagnosis Alcohol abuse- Primary Alcohol abuse, unspecified Hospital discharge follow-up Other follow-up examination Hyperlipidemia [...] the patient have Health Care Power of General Repairer? No Code Status History Code Status Date [...] the patient have Health Care Power of General Repairer? No Full Code 02/10/2016 5:50 PM 02/20/2016 12:09 AM Th is order reflects the patients wishes and were consensually agreed upon. Question Answer Comments Discussion of Advance Directives occurred with: Patient Does the patient have a Living Will? No Does the patient have Health Care Power of General Repairer? No Full Code 01/15/2016 3:25 PM 01/18/2016 6:24 PM Thi s order reflects the patients wishes and were consensually agreed upon. Question Answer Comments Discussion of Advance Directives occurred with: Patient Does the patient have a Living Will? No Does the patient have Health Care Power of General Repairer? No Care Teams Mri Ct Tech Relationship Specialty Start Date End Date Ollie Stein DO [address] [place] [address] [place] [address] PCP - General Internal Medicine 06/07/16 documented as of this encounter
--- OUTSIDE RECORDS SUMMARY | 2023-03-13 22:40 | External Medical Summary | Summary of Care ---
Author Name Unknown Organization [facility] Address [address] [facility] [place] [address] Phone [phone] Care Team Providers Care Food Preparation Worker Name Role Phone BorregoVikashMichelle Mari KEITA Primary Care Provider + [phone] Reason for Visit * Reason Onset Date Comments Hospital Follow-Up 01/16/[address] [facility] apt reschedule for 01/27 at 3pm Encounter Details Date Type Department Care Team (Late st Contact Info) Description 01/16/2023 Telephone Ancillary [address] [place] [address] Erin Jolley, FELIPE Hospital Follow-Up (Jori for [facility] apt kelsi... Allergies Active Allergy Reactions [...] Encounter - Erin Jolley RN - 01/28/2023 2:58 PM EDT I spoke to patient on cell phone listed, he does not use the home phone # listed for him or his EC (mother). please use this contact # I did offer multiple follow up appts, but due to work sched he was unable to come in. Appointment made for Feb 11, I also encouraged him to call [facility] # given and he is to call his insurance co for a CM. Patient states he is changing insurance as of the new year unsure what the name is? Also he states he has not had a drink since getting out of the hospital on 01/15. Patient states Anatoliy Meza did give him some medication to take to help with w/d symptoms but he does not know the name of it. I will message Michelle Borrego DO and Jacklyn Dong, patient states he is ok with Jacklyn needs to speak or see him in the office too. Reason for Call: Hospital Follow-Up (Jori for [facility] apt reschedule for 01/27 at 3pm) Contact: Telephone Call Contact Type: Care Coordination Outcome: see note Face to face time spent with Patient (minutes): 0 Total Time including non face to face (minutes): 20 * Telephone Encounter - Michelle Borrego DO [...] does call back please transfer him to [phone], but I did leave my direct # for him to call me directly too. Message to Michelle Borrego DO and Jacklyn Dong to make them aware. Patient did cx his hospital follow up and then NS for the appointment yesterday. Reason for Call: Hospital Follow-Up (Jori for [facility] apt reschedule for 01/27 at 3pm) [...] to call patient and send him a [employer] message regarding the information below. Patient has not returned my call or read the myG message sent. Please make him aware of advice if he comes forhis hospital follow up tomorrow. Message sent to Maite and Dr. Lepe to make aware. Patient needs to : patient needs to call [facility] at [phone] and let them know he is interested in Alcohol counseling and medications to quit. He is also needs to call his insurance company (number on the back of his card) to get set up with a Behavior Health Project Manager Senior because he has [employer] . Patient [...] EDT I called and spoke to Jacklyn Iker who will be our Behavior Health CM for miguel payne after 02/04. She states patient needs to call [facility] at [phone] and let them know he is interested [...] Reason for Call: Hospital Follow-Up (Jori for [facility]) Contact: Telephone Call Contact Type: Care [...] for follow up: Inpatient Hospitalization Admitted to: [facility], Date: 01.14.23 Discharged to: home, patient [...] Department Care Team (Latest Contact Info) Description 02/11/2023 1:10 PM EST Office Visit Family [address] [phone] Michelle [address] [place] [address] 03/11/2023 2:50 PM EST Office Visit [address] [place] [phone] [address] [place] [address] 05/05/2023 11:15 AM EST Hospital Encounter ENDO [facility], Endoscopy Room [facility] [address] [place] [phone] Jamil Bond MD [address] [place] [address] 05/05/2023 11:15 AM EST - 05/05/2023 11:45 AM EST Surgery ENDO [facility], Endoscopy Room [facility] [address] [place] [phone] Jamil Bond MD [address] [place] [address] ESOPHAGOGASTRODUODENOSCOPY (EGD), FLEXIBLE, TRANSORAL, DIAGNOSTIC 05/06/2023 8:30 AM EST Imaging Radiology [address] [place] [address] Scheduled Procedures Name Priority Associated Diagnoses Date/Ti [...] the patient have Health Care Power of Gauntlet Pairer? No Code Status History Code Status Date [...] the patient have Health Care Power of Gauntlet Pairer? No Full Code 02/10/2016 5:50 PM 02/20/2016 12:09 AM Th is order reflects the patients wishes and were consensually agreed upon. Question Answer Comments Discussion of Advance Directives occurred with: Patient Does the patient have a Living Will? No Does the patient have Health Care Power of Gauntlet Pairer? No Full Code 01/15/2016 3:25 PM 01/18/2016 6:24 PM Thi s order reflects the patients wishes and were consensually agreed upon. Question Answer Comments Discussion of Advance Directives occurred with: Patient Does the patient have a Living Will? No Does the patient have Health Care Power of Gauntlet Pairer? No Care Teams Food Preparation Worker Relationship Specialty Start Date End Date Michelle Borrego DO [address] [place] [address] [place] [address] PCP - General Internal Medicine 06/07/16 documented as of this encounter
--- OUTSIDE RECORDS SUMMARY | 2023-03-13 22:40 | External Medical Summary | Summary of Care ---
Author Name Unknown Organization [facility] Address [address] [place] [facility] [place] [address] Phone [phone] Care Team Providers Care Mail Clerk Name Role Phone Michelle Borrego DO Primary Care Provider + [phone] Reason for Visit * Reason Onset Date Comments Advice 01/22/2023 Please see te Encounter Details Date Type Department Care Team (Late st Contact Info) Description 01/22/2023 Telephone Family Medicine [address] [phone] Michelle Borrego DO [address] [place] [address] [place] [phone] Advice (Please see te) Allergies Active Allergy Reactions Criticality Noted Date [...] encounter Miscellaneous Notes * Telephone Encounter - Daniela Cox LPN - 01/27/2023 12:41 PM EDT I have no idea who Niyah is? And no, we can't forward records we have received from another facility. Niyah will need to contact [facility] directly. * Telephone Encounter - Yolanda Lewis OSA - 01/22/2023 11:53 AM EDT Niyah is reporting that pt was in the hospital from 01/14/23-01/15/23 [facility] / Diagnoses with Alcoholic Cirrhosis of the liver. Niyah asking if once hospital summary has been received to the office if we can fax a copy to [phone] Attn:Niyah. documented in this encounter Plan of Treatment Upcoming Encounters Date Type Department Care Team (Latest Contact Info) Description 01/27/2023 3:00 PM EDT Office Visit Family Medicine [address] [place] [phone] Allan Lepe MD [address] [place] [address] [place] [phone] 03/11/2023 2:50 PM EST Office Visit Family Medicine [address] [place] [phone] [address] [place] [address] 05/05/2023 11:15 AM EST Hospital Encounter ENDO [facility], Endoscopy Room [facility] [address] [place] [phone] Jamil Bond MD [address] [place] [address] 05/05/2023 11:15 AM EST - 05/05/2023 11:45 AM EST Surgery ENDO [facility], Endoscopy Room [facility] [address] [place] [phone] Jamil Bond MD [address] [place] [address] ESOPHAGOGASTRODUODENOSCOPY (EGD), FLEXIBLE, TRANSORAL, DIAGNOSTIC 05/06/2023 8:30 AM EST Imaging Radiology [address] [place] [address] Scheduled Procedures Name Priority Associated Diagnoses Date/Ti [...] Tdap) 11/12/2026 11/12/2016 Lipid Panel 03/08/2027 03/08/2022, 06/2018, 12/16/2016, Additional history exists Hepatitis B [...] the patient have Health Care Power of Health Clinician? No Code Status History Code Status Date [...] the patient have Health Care Power of Health Clinician? No Full Code 02/10/2016 5:50 PM 02/20/2016 12:09 AM Th is order reflects the patients wishes and were consensually agreed upon. Question Answer Comments Discussion of Advance Directives occurred with: Patient Does the patient have a Living Will? No Does the patient have Health Care Power of Health Clinician? No Full Code 01/15/2016 3:25 PM 01/18/2016 6:24 PM Thi s order reflects the patients wishes and were consensually agreed upon. Question Answer Comments Discussion of Advance Directives occurred with: Patient Does the patient have a Living Will? No Does the patient have Health Care Power of Health Clinician? No Care Teams Mail Clerk Relationship Specialty Start Date End Date Michelle Borrego DO [address] [place] [address] [place] [phone] PCP - General Internal Medicine 06/07/16 documented as of this encounter
--- OUTSIDE RECORDS SUMMARY | 2023-03-13 22:40 | External Medical Summary | Summary of Care ---
Author Name Unknown Organization [facility] Address [address] [place] [address] Phone [phone] Care Team Providers Care Boot Maker Name Role Phone Michelle Borrego DO Primary Care Provider + [phone] Reason for Visit * Reason Onset Date Comments Hospital Follow-Up Pt states fee ling "alright". Pt denies any concerns. Hospital Follow-Up 02/11/2023 Encounter Details Date Type Department Care Team (Late st Contact Info) Description 02/11/2023 1:10 PM EST Office Visit Family Medicine [address] [phone] Michelle Borrego [address] [place] [address] Hospital discharge follow-up*; Alcohol withdrawal syndrome with complication (HCC); Alcoholic cirrhosis of liver with ascites (HCC); Persistent insomnia; Hyperlipidemia with target LDL less than 100 Allergies Active Allergy Reactions Criticality Noted Date Comments Aspirin Other (Please comment) 02/12/2016 Reports having a bloody nose. documented as of this encounter (statuses as of 02/14/2023) Medications Medication Sig Dispensed Refills Start Date [...] needed for Sleep. 90 Tablet 1 12/18/2022 3 Discontinued documented as of this encounter (statuses as of 02/14/2023) Active Problems Problem Noted Date Diagnosed Date [...] as of this encounter (statuses as of 02/14/2023) Resolved Problems Problem Noted Date Diagnosed Date [...] as of this encounter (statuses as of 02/14/2023) Immunizations Name Administration Dates Next Due COVID-19 [...] Recent Admission: Patient was recently admitted to [facility]. The date of discharge was 01/15/23. Discharge [...] 2:50 PM EST Office Visit Family Medicine [address] [place] [phone] Michelle Borrego DO [address] [place] [address] [place] [phone] 05/05/2023 11:15 AM EST Hospital Encounter ENDO OSSC, Endoscopy Room [facility] [address] [phone] Jamil Bond MD [address] [place] [address] 05/05/2023 11:15 AM EST - 05/05/2023 11:45 AM EST Surgery ENDO OSSC, Endoscopy Room [facility] [address] [place] [phone] Jamil Bond MD [address] [place] [address] ESOPHAGOGASTRODUODENOSCOPY (EGD), FLEXIBLE, TRANSORAL, DIAGNOSTIC 05/06/2023 8:30 AM EST Imaging Radiology [address] [place] [address] Scheduled Procedures Name Priority Associated Diagnoses Date/Ti [...] Not on filedocumented as of this encounter Results * FOLIC ACID (02/11/2023 1:50 PM EST) Folic Acid 14.1 >4.5 ng/mL 02/12/2023 12:23 AM EST LABORATORY [facility] Blood Venous blood specimen / Unknown Venipuncture / Unknown 02/11/2023 1:50 PM EST 02/11/2023 1:53 PM EST Michelle Borrego DO LAB BLOOD ORDERABLES Performing Organization Address City/[facility]/ZIP Co de Phone Number LABORATORY [facility] [address] [place] [address] * VITAMIN B12 (02/11/2023 1:50 PM EST) Vitamin B12 515 232 - 1,245 pg/mL 02/12/2023 12:23 AM EST LABORATORY C Blood Venous blood specimen / Unknown Venipuncture / Unknown 02/11/2023 1:50 PM EST 02/11/2023 1:53 PM EST Michelle Borrego DO LAB BLOOD ORDERABLES Performing Organization Address [facility] Co de Phone Number LABORATORY [facility] [address] [place] [address] * MAGNESIUM (02/11/2023 1:50 PM EST) Pathologist [facility] Magnesium 1.7 1.5 - 2.6 mg/dL 02/11/2023 11:04 PM EST LABORATORY C Blood Venous blood specimen / Unknown Venipuncture / Unknown 02/11/2023 1:50 PM EST 02/11/2023 1:53 PM EST Michelle Borrego DO LAB BLOOD ORDERABLES Performing Organization Address City/[facility]/ZIP Co de Phone Number LABORATORY [facility] [address] [place] [address] * PT INR (02/11/2023 1:50 PM EST) Prothrombin Time 14.8 11.6 - 15.2 seconds 02/11/2023 11:23 PM EST LABORATORY C INR 1.1 0.8 - 1.2 02/11/2023 11:23 PM EST LAB[facility]ATORY [facility] Blood Venous blood specimen / Unknown Venipuncture / Unknown 02/11/2023 1:50 PM EST 02/11/2023 1:53 PM EST Narrative LAB[facility]ATORY [facility] - 02/11/2023 11:23 PM EST Warfarin Therapy INR: 2.0-3.0 conventional anticoagulation INR: 2.5-3.5 high intensity anticoagulation Michelle Borrego DO LAB BLOOD ORDERABLES LABORATORY [facility] [address] [place] [address] * (ABNORMAL) COMPREHENSIVE METABOLIC PANEL (02/11/2023 1:50 PM EST) BUN 6 6 - 20 mg/dL 02/11/2023 11:04 PM EST LABORATORY [facility] Creatinine 0.8 0.6 - 1.2 mg/dL 02/11/2023 11:04 PM EST LABORATORY [facility] Estimated Glomerular Filtration Rate >90 >=60 mL/min 02/11/2023 11:04 PM EST LABORATORY GM Comment:eGFR is calculated b ased on the CKD-EPI 2020 equation Sodium 140 135 - 146 mmol/L 02/11/2023 11:04 PM EST LABORATORY C Potassium 4.0 3.5 - 5.1 mmol/L 02/11/2023 11:04 PM EST LABORATORY C Chloride 103 98 - 107 mmol/L 02/11/2023 11:04 PM EST LABORATORY C CO2 25 22 - 32 mmol/L 02/11/2023 11:04 PM EST LABORATORY C Anion Gap 12 7 - 15 mmol/L 02/11/2023 11:04 PM EST LABORATORY C Glucose 113 70 - 120 mg/dL 02/11/2023 11:04 PM EST LAB[facility]ATORY [facility] Albumin 4.3 3.8 - 5.0 g/dL 02/11/2023 11:04 PM EST LABORATORY C AST 166(H) 10 - 50 U/L 02/11/2023 11:04 PM EST LAB[facility]ATORY [facility] Alkaline Phosphatase 64 35 - 130 U/L 02/11/2023 11:04 PM EST LAB[facility]ATORY [facility] Bilirubin, Total 1.2 <=1.2 mg/dL 02/11/2023 11:04 PM EST LAB[facility]ATORY [facility] Calcium 8.7 8.4 - 10.2 mg/dL 02/11/2023 11:04 PM EST LAB[facility] Protein 7.4 6.0 - 8.3 g/dL 02/11/2023 11:04 PM EST LAB[facility]ATORY [facility] ALT 119(H) 10 - 50 U/L 02/11/2023 11:04 PM EST LABORATORY [facility] Blood Venous blood specimen / Unknown Venipuncture / Unknown 02/11/2023 1:50 PM EST 02/11/2023 1:53 PM EST Michelle Borrego DO LAB BLOOD ORDERABLES LABORATORY [facility] [address] [place] [address] * (ABNORMAL) LIPID PANEL WITH DIRECT LDL IF TG IS HIGH (02/11/2023 1:50 PM EST) Triglycerides 144 <=174 mg/dL 02/11/2023 11:04 PM EST LABORATORY [facility] Comment: Triglyceride Reference Ranges (mg/dL): <150 Acceptable 150-174 Borderline high 175-499 High >=500 Very high Cholesterol 200(H) <200 mg/dL 02/11/2023 11:04 PM EST LABORATORY [facility] Comment: Total Cholesterol Reference Ranges (mg/dL): <200 Desirable 200-239 Borderline high >=240 High HDL Cholesterol 74 >39 mg/dL 11:04 PM EST LABORATORY [facility] Comment: HDL Cholesterol Reference Ranges (mg/dL): >=60 High (Desirable) <50 Low (Undesirable) For Females <40 Low (Undesirable) For Males Non-HDL Cholesterol 126 <=159 mg/dL 02/11/2023 11:04 PM EST LABORATORY [facility] Comment: Non-HDL Cholesterol Reference Range (mg/dL): <100 Target level for high risk ASCVD patient <130 Optimal for general population 130-159 Near optimal for general population 160-189 Borderline High 190-219 High >=220 Very High LDL Cholesterol 97 <=129 mg/dL 02/11/2023 11:04 PM EST LABORATORY [facility] Comment: LDL Cholesterol Reference Ranges (mg/dL): <70 Target level for high risk ASCVD patient <100 Optimal for general population 100-129 Near optimal for general population 130-159 Borderline high 160-189 High >=190 Very high Blood Venous blood specimen / Unknown Venipuncture / Unknown 02/11/2023 1:50 PM EST 02/11/2023 1:53 PM EST Michelle Borrego DO LAB BLOOD ORDERABLES LABORATORY [facility] [address] [place] [address] documented in this encounter Visit Diagnoses Diagnosis Hospital discharge [...] the patient have Health Care Power of Medical Translator? No Code Status History Code Status Date [...] the patient have Health Care Power of Medical Translator? No Full Code 02/10/2016 5:50 PM 02/20/2016 12:09 AM Th is order reflects the patients wishes and were consensually agreed upon. Question Answer Comments Discussion of Advance Directives occurred with: Patient Does the patient have a Living Will? No Does the patient have Health Care Power of Medical Translator? No Full Code 01/15/2016 3:25 PM 01/18/2016 6:24 PM Thi s order reflects the patients wishes and were consensually agreed upon. Question Answer Comments Discussion of Advance Directives occurred with: Patient Does the patient have a Living Will? No Does the patient have Health Care Power of Medical Translator? No Care Teams Boot Maker Relationship Specialty Start Date End Date Michelle Borrego DO [address] [place] [address] [place] [phone] PCP - General Internal Medicine 06/07/16 documented as of this encounter
--- OUTSIDE RECORDS SUMMARY | 2023-03-13 22:41 | External Medical Summary | Summary of Care ---
Author Name Unknown Organization [facility] Address [address] [facility] [place] [address] Phone [phone] Care Team Providers Care Subcontracts Manager Name Role Phone Michelle Borrego Primary Care Provider [phone] Reason for Visit * Reason Onset Date Comments Hospital Follow-Up 01/16/2023 [facility] for [facility] Encounter Details Date Type Department Care Team Description 01/16/2023 Telephone Ancillary Diya Quevedo[address] [place] [address] Erin Jolley, FELIPE Hospital Follow-Up ([facility] for [facility]) Allergies Active Allergy Reactions Severity Noted Date Comments Aspirin Other (Please comment) 02/12/2016 Reports having a bloody nose. documented as of this encounter (statuses as of 01/16/2023) Medications Medication Sig Dispensed Refills Start Date [...] as of this encounter (statuses as of 01/16/2023) Active Problems Problem Noted Date Biliary colic 07/11/2019 History of alcohol abuse 06/01/2018 Persistent insomnia 02/12/2017 Chronic cholecystitis 11/10/2016 Pre-transplant evaluation for chronic li neda disease 09/30/2016 Controlled substance agreement signed Pancreatic cyst 08/18/2016 Overview: 5mm, Needs repeat MRCP in 07/2017 Secondary esophageal varices without ble eding 06/07/2016 Alcoholic cirrhosis of liver with ascite s 03/08/2016 Macrocytic anemia 01/18/2016 Coagulopathy 01/18/2016 documented as of this encounter (statuses as of 01/16/2023) Resolved Problems Problem Noted Date Resolved Date Abdominal pain 05/13/2017 06/01/2018 Alcohol withdrawal seizure without complication 06/07/2016 06/01/2018 Hyponatremia 04/16/2016 06/01/2018 Generalized abdominal pain 04/16/201606/07 Nausea without vomiting 04/16/2016 06/02/19 19 Seizures 01/18/2016 06/07/2016 Delirium tremens 01/18/2016 02/12/2017 Alcohol withdrawal 01/18/2016 02/12/2017 Tobacco use disorder 01/18/2016 12/02/2018 Thrombocytopenia 01/18/2016 12/21/2019 Alcohol abuse 01/18/2016 06/01/2018 documented as of this encounter (statuses as of 01/16/2023) Immunizations Name Administration Dates Next Due COVID-19 [...] pure alcohol) prefers tequilla. Stopped again 11/20/2022 Sex Assigned at Date Recorded Not on file Job Start Date Occupation [...] will be our Behavior Health CM for [facility] after 02/04. She states patient needs to call [employer] [facility] at [phone] and let them know he is interested [...] Reason for Call: Hospital Follow-Up ([facility] for [facility]) Contact: Telephone Call Contact Type: Care Coordination [...] for follow up: Inpatient Hospitalization Admitted to: [facility], Date: 01.14.23 Discharged to: home, patient declined [...] Plan of Treatment Upcoming Encounters Date Type Specialty Care Team Description 01/21/2023 Office Visit Family Medicine Allan Lepe MD [address] [place] [address] [place] [phone] 03/11/2023 Office Visit Family Medicine Michelle Borrego DO [address] [place] [address] [place] [address] 05/05/2023 Hospital Encounter Endoscopy Jamil Bond MD [address] [place] [address] 05/05/2023 Surgery Endoscopy Jamil Bond MD [address] [place] [address] ESOPHAGOGASTRODUODENOSCOPY (EGD), FLEXIBLE, TRANSORAL, DIAGNOSTIC 05/06/2023 Imaging Radiology Scheduled Procedures Name Priority Associated Diagnoses Date/Ti ne ESOPHAGOGASTRODUODENOSCOPY ( EGD), FLEXIBLE, TRANSORAL, DIAGNOSTIC Alcoholic [...] the patient have Health Care Power of Chuck Tender? No Code Status History Code Status Date [...] the patient have Health Care Power of Chuck Tender? No Full Code 02/10/2016 5:50 PM 02/20/2016 12:09 AM Th is order reflects the patients wishes and were consensually agreed upon. Question Answer Comments Discussion of Advance Directives occurred with: Patient Does the patient have a Living Will? No Does the patient have Health Care Power of Chuck Tender? No Full Code 01/15/2016 3:25 PM 01/18/2016 6:24 PM Thi s order reflects the patients wishes and were consensually agreed upon. Question Answer Comments Discussion of Advance Directives occurred with: Patient Does the patient have a Living Will? No Does the patient have Health Care Power of Chuck Tender? No Care Teams Subcontracts Manager Relationship Specialty Start Date End Date Michelle Borrego, [address] [place] [phone] PCP - General Internal Medicine 06/07/16 documented as of this encounter
--- OUTSIDE RECORDS SUMMARY | 2023-03-13 22:41 | External Medical Summary | Summary of Care ---
Author Name Unknown Organization [facility] Address [address] [place] [address] Phone [phone] Care Team Providers Care Office Machines Sales Representative Name Role Phone Michelle Borrego Primary Care Provider + [phone] Reason for Visit * Reason Comments Follow Up Cirrhosis of liver Encounter Details Date Type Department Care Team Description 12/24/2022 Office Visit Gastroenterology, [facility] [address] [place] [address] Anatoliy Meza CRNP [address] [place] [address] Alcoholic cirrhosis of liver with ascites (HCC)* Allergies Active Allergy Reactions Severity Noted Date Comments Aspirin Other (Please comment) 02/12/2016 Reports having a bloody nose. documented as of this encounter (statuses as of 12/25/2022) Medications Medication Sig Dispensed Refills Start Date End Date Status Folic Acid 1 MG Oral Tablet Take by mouth 1 Tablet in the morning. 90 Tablet 3 01/08/2022 Active Spironolactone 25 MG Oral Tablet (Aldactone) Take by mouth 1 Tablet in the morning. 90 Tablet 3 01/08/2022 Active busPIRone HCl 5 MG Oral Tablet (Buspar) Take by mouth 1 Tablet in the morning AND 1 Tablet before bedtime. 180 Tablet 3 01/08/2022 Active Furosemide 20 MG Oral Tablet (Lasix)Indications [...] the morning. 90 Tablet 3 12/24/2022 Active buPROPion HCl ER (XL) 150 MG Oral Tablet Extended Release 24 Hour (Wellbutrin XL)Indications:Per sistent insomnia,History of alcohol abuse Take 1 Tablet by mouth in the morning. 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 4 Drop LEFT EAR BID (.AM/PM) 01/22/2020 3 Discontinued documented as of this encounter (statuses as of 12/25/2022) Active Problems Problem Noted Date Biliary colic [...] as of this encounter (statuses as of 12/25/2022) Resolved Problems Problem Noted Date Resolved Date Abdominal pain 05/13/2017 06/01/2018 Alcohol withdrawal seizure without complication 06/07/2016 06/01/2018 Hyponatremia 04/16/2016 06/01/2018 Generalized abdominal pain 04/16/201606/07 Nausea without vomiting 04/16/2016 06/02/19 19 Seizures 01/18/2016 06/07/2016 Delirium tremens 01/18/2016 02/12/2017 Alcohol withdrawal 01/18/2016 02/12/2017 Tobacco use disorder 01/18/2016 12/02/2018 Thrombocytopenia 01/18/2016 12/21/2019 Alcohol abuse 01/18/2016 06/01/2018 documented as of this encounter (statuses as of 12/25/2022) Immunizations Name Administration Dates Next Due COVID-19 mRNA, LNP-s, No Pre serve, 2-Dose Series (Moderna) 07/26/2020,06/13/2020 COVID-19, mRNA, LNP-s, PF, B ooster, 100mcg/0.5mg (Moderna) 03/07/2021 Covid-19, Mrna, Lnp-s, Pf, B ivalent, 30 Mcg, IM, 12 yrs and above (Theatro) 03/08/2022 HEP A - Hepatitis A (Adult > 18 yrs) 02/12/2017, 07/12/2016 Hepatitis B, 20+ yrs 02/12/2017,08/16/2016,07/12 Pneumococcal Polysaccharide PPV23 (Pneumovax) 05/26/2017 Seasonal Influenza, PF, 6 mo ns & Above, IM , (Flulaval) 12/17/2022,02/08/2022,11/29/2020,12/12,06/01/2018,02/12/2017 TDAP (age 10 and older)(Boostrix) 11/12/2016 documented as of this encounter Social History Tobacco Use Types Packs/Day Years Used Date Smoking Tobacco: Never Smokeless Tobacco: Current Snuff, Chew Tobacco Cessation:Ready to Q uit: Not Asked; Counseling Given: Not Answered Comments:1 can every 2 weeks Alcohol Use [...] Sign Reading Time Taken Comments Blood Pressure 139/64 12/24/2022 3:24 PM EDT Pulse 57 12/24/2022 3:24 PM EDT Temperature 36.5 C (97.7 F) 12/24/2022 3:24 PM ED T Respiratory Rate - - Oxygen Saturation 97% 12/24/2022 3:24 PM EDT Inhaled Oxygen Concentration - - Weight 84.9 kg (187 lb 1.6 oz) 12/24/2022 3:24 P M EDT Height - - Body Mass Index 29.3 06/05/2022 2:17 PM EST documented in this [...] as of this encounter Progress Notes * RUPERT Comer - 12/24/2022 12:05 PM EDT CC: Recheck ETOH cirrhosis with ascites, EV. HPI: Mr. Darrel Guillory is a 47 yr old male pt of Dr. Borrego with an otherwise unremarkable PMH who is here for hospital f/u for ETOH cirrhosis. He had a relapse and presented to [facility] for parasthesia thought secondary to ETOH/ETOH withdrawal. Had been abstinent since the time of dx in 12/2015. Then restarted drinking about 6m ago, most recently drinking about 10 Vodka's day. He says that he started again because a friend asked lenny to go out (to the bars) again. Abstinent again since discharge on 12/08/22. LFTs and sodium during that hospitalization were normal. Plts decreased at125. He carries a hx of gallstones w intermittent biliary colic. Eval by [facility] and [place] during episodes and surgery not willing to perform cholecystectomy due to hx of cirrhosis. There were plans for royal cystoscopy drainage but because symptoms improved, this was deferred. No symptoms since June 2019. He is maintained on Urosodiol for the gallstone/s. He also has a feeling of buzzing in the upper chest/neck, which is though to be anxiety. Recent addition of bupropion worsened this issue so he stopped. On Buspar which doesn't seem helpful for this either. Otherwise not struggling w anxiety or obsessive thoughts. Screenings: HCC: US (-) for HCC, + 1.2cm gallstone in 11/20/22 Decompensations: EGD May 2021: no varices. Varices on EGD on 06/11/18: grade two, banded. Maintained on Nadolol 20mg/day; Protonix 40mg daily. Ascites: Stable, maintained on furosemide 20/Spironolactone 25mg QAM. Also on KCL 10meq/day. Verifies low salt diet. EXAM: BP 139/64 | Pulse 57 | Temp 36.5 C (97.7 F) | Wt 84.9 kg (187 lb 1.6 oz) | SpO2 97% | BMI 29.30kg/m | BSA 2 m GENERAL: 47 year old male well developed and well nourished in no acute distress SKIN: no rashes, ulcers, + few chest spider angiomata HEENT: normocephalic, sclera clear, pharynx normal NECK: supple, no lymphadenopathy, no masses or thyroid enlargement LUNGS: clear to auscultation anterior and posterior HEART: regular rate & rhythm, no murmurs and no gallops ABDOMEN: minimal ascites, normo-active bowel sounds, soft, non-tender, non- distended no masses, no hepatosplenomegaly, no rebound or guarding, no bruits EXTREMITIES: no palmar erythema, no edema, no skin discoloration, no clubbing, no cyanosis NEURO: no lateralizing findings, Sensory/Motor grossly normal IMPRESSION/RECOMMENDATIONS: 47 year old male with Alcoholic cirrhosis of liver with ascites (HCC) (Primary) - EGD, FLEXIBLE, DIAGNOSTIC; Future; Expected date: 04/07/2023 - US ABDOMEN LIMITED; Future; Expected date: 05/20/2023 Pt w some anxiety, not resolved w buspar. Buproprione was started but pt stopped due to it worsening his symptoms. Will try: - Citalopram Hydrobromide 10 MG Oral Tablet (CeleXA); Take 1 Tablet by mouth in the morning. Recheck in 6m. I spent a total of 30 minutes on the date of service in review of patient's record, and previously obtained information in person and appropriate medical visit, discussion and education of plan, withpatient and/or caregiver, placing orders for tests/referral/procedures as medically necessary and documentation of pertinent clinical information in patient's medical records for their visit today. Thank you for the opportunity to be involved in the care of this patient. RUPERT Comer documented in this encounter Nursing Notes * Linnette Gama LPN - 12/24/2022 3:26 PM EDT Patient identified by name and date of . Chief Complaint Patient presents with Follow Up Cirrhosis of liver Symptoms: NO symptoms Bowel Movement Frequency: 2 ttimes a day Bowel Movement Consistency: varies , soft Straining: no Rectal Pain: no Blood in Stool: No documented in this encounter Plan of Treatment Upcoming Encounters Date Type Specialty Care Team Description 03/11/2023 Office Visit Family Medicine Michelle Borrego, [address] [place] [phone] 05/05/2023 Hospital Encounter Endoscopy Jamil Bond MD [address] [facility] [place] [address] 05/05/2023 Surgery Endoscopy Jamil Bond MD [address] [place] [address] ESOPHAGOGASTRODUODENOSCOPY (EGD), FLEXIBLE, TRANSORAL, DIAGNOSTIC 05/06/2023 Imaging Radiology Scheduled Orders Name Type Priority Associated Diagnoses Orde r Schedule EGD, FLEXIBLE, DIAGNOSTIC Procedures Routine Alcoholic cirrhosis of liver with ascites (HCC) Expected: 04/07/2023, Expires: 01/24/2024 US ABDOMEN LIMITED Medical Imaging Routine Alcoholic cirrhosis of liver with ascites (HCC) Expected: 05/20/2023 (Approximate), Expires: 01/24/2024 Scheduled Procedures Name Priority Associated Diagnoses Date/Ti [...] exists Hepatitis B Completed 02/12/2017, 07/29, 07/12/2016 COVID-19 Vaccine Completed 03/08/2022, 10/2020, 07/26/2020, Additional history exists Influenza Vaccine (FLU shot) Completed , 02/08/2022, 11/29/2020, Additional history exists GARDASIL-HPV IMMUNIZATION SERIES Aged Out No longer eligible based on patient's age to complete this topic MENINGOCOCCAL (MENACTRA/MENVEO) Aged Out No longer eligible based on patient's age to complete this topic documented as of this encounter Medical Devices Not on filedocumented as of this encounter Visit Diagnoses Diagnosis Alcoholic cirrhosis of liver with ascites (HCC)- Primary Alcoholic cirrhosis of liver Alcoholic cirrhosis of [...] the patient have Health Care Power of Sausage Stringer? No Code Status History Code Status Date [...] the patient have Health Care Power of Sausage Stringer? No Full Code 02/10/2016 5:50 PM 02/20/2016 12:09 AM Th is order reflects the patients wishes and were consensually agreed upon. Question Answer Comments Discussion of Advance Directives occurred with: Patient Does the patient have a Living Will? No Does the patient have Health Care Power of Sausage Stringer? No Full Code 01/15/2016 3:25 PM 01/18/2016 6:24 PM Thi s order reflects the patients wishes and were consensually agreed upon. Question Answer Comments Discussion of Advance Directives occurred with: Patient Does the patient have a Living Will? No Does the patient have Health Care Power of Sausage Stringer? No Care Teams Office Machines Sales Representative Relationship Specialty Start Date End Date Michelle Borrego, [address] [place] [phone] PCP - General Internal Medicine 06/07/16 documented as of this encounter"
--- OUTSIDE RECORDS SUMMARY | 2023-03-13 22:41 | External Medical Summary | Summary of Care ---
Author Name Unknown Organization [facility] Address [address] [place] [address] Phone [phone] Care Team Providers Care Data Operations Director Name Role Phone Ollie Stein DO Primary Care Provider + [phone] Reason for Visit * Reason Onset Date Comments Medication Refill 01/14/2023 Encounter Details Date Type Department Care Team Description 01/14/2023 Refill Family [address] [phone] Ollie Stein DO [address] [place] [address] [place] [address] Allergies Active Allergy Reactions Severity Noted Date Comments Aspirin Other (Please comment) 02/12/2016 Reports having a bloody nose. documented as of this encounter (statuses as of 01/14/2023) Medications Medication Sig Dispensed Refills Start Date [...] the morning. 90 Tablet 3 01/14/2023 Active Folic Acid 1 MG Oral Tablet Take by mouth 1 Tablet in the morning. 90 Tablet 3 01/08/2022 01/14/2023 Discontinue d(Refill) Spironolactone 25 MG Oral Tablet (Aldactone) Take by mouth 1 Tablet in the morning. 90 Tablet 3 01/08/2022 01/14/2023 Discontinue d(Refill) busPIRone HCl 5 MG Oral Tablet (Buspar) Take by mouth 1 Tablet in the morning AND 1 Tablet before bedtime. 180 Tablet 3 01/08/2022 01/14/2023 Discontinue d(Refill) documented as of this encounter (statuses as of 01/14/2023) Active Problems Problem Noted Date Biliary colic [...] as of this encounter (statuses as of 01/14/2023) Resolved Problems Problem Noted Date Resolved Date Abdominal pain 05/13/2017 06/01/2018 Alcohol withdrawal seizure without complication 06/07/2016 06/01/2018 Hyponatremia 04/16/2016 06/01/2018 Generalized abdominal pain 04/16/201606/07 Nausea without vomiting 04/16/2016 06/02/19 19 Seizures 01/18/2016 06/07/2016 Delirium tremens 01/18/2016 02/12/2017 Alcohol withdrawal 01/18/2016 02/12/2017 Tobacco use disorder 01/18/2016 12/02/2018 Thrombocytopenia 01/18/2016 12/21/2019 Alcohol abuse 01/18/2016 06/01/2018 documented as of this encounter (statuses as of 01/14/2023) Immunizations Name Administration Dates Next Due COVID-19 mRNA, LNP-s, No Pre serve, 2-Dose Series (Moderna) 07/26/2020,06/13/2020 COVID-19, mRNA, LNP-s, PF, B ooster, 100mcg/0.5mg (Moderna) 03/07/2021 Covid-19, Mrna, Lnp-s, Pf, B ivalent, 30 Mcg, IM, 12 yrs and above (Donde) 03/08/2022 HEP A - Hepatitis A (Adult [...] Telephone Encounter - Ollie Stein DO - 01/14/2023 1:05 PM EDTSigned Prescriptions: Disp Refills busPIRone HCl 5 MG Oral Tablet (Buspar) 180 Ta*3 Sig: Take 1 Tablet by mouth in the morning and 1 Tablet before bedtime. Authorizing Provider: OLLIE STEIN Folic Acid 1 MG Oral Tablet 90 Tab*3 Sig: Take 1 Tablet by mouth in the morning. Authorizing Provider: OLLIE STEIN Spironolactone 25 MG Oral Tab let (Aldacton*90 Tab*3 Sig: Take 1 Tablet by mouth in the morning. Authorizing Provider: OLLIE STEIN * Telephone Encounter - Dequan Brooke LPN - 01/14/2023 10:44 AM EDTPending Prescriptions: Disp Refills busPIRone HCl 5 MG Oral Tablet (Buspar) 180 Ta*3 Sig: Take 1 Tablet by mouth in the morning and 1 Tablet before bedtime. Folic Acid 1 MG Oral Tablet 90 Tab*3 Sig: Take 1 Tablet by mouth in the morning. Spironolactone 25 MG Oral Tablet (Aldacton*90 Tab*3 Sig: Take 1 Tablet by mouth in the morning. --- * Telephone Encounter - Dequan Brooke LPN - 01/14/2023 10:44 AM EDT Pending Prescriptions: Disp Refills busPIRone HCl 5 MG Oral Tablet (Buspar) 180 Ta*3 Sig: Take 1 Tablet by mouth in the morning and 1 Tablet before bedtime. Folic Acid 1 MG Oral Tablet 90 Tab*3 Sig: Take 1 Tablet by mouth in the morning. Spironolactone 25 MG Oral Tablet (Aldacto*90 Tab*3 Sig: Take 1 Tablet by mouth in the morning. Last Visit: 12/17/2022 (in office), Visit date not found (telemedicine) Next Visit: 03/11/2023 Last date the medication was ordered: 01/08/2022 Patient Active Problem List Diagnosis Code Macrocytic anemia D53.9 Coagulopathy (HCC) D68.9 Alcoholic cirrhosis of liver with ascites (HCC) K70.31 Secondary esophageal varices without bleeding (HCC) I85.10 Pancreatic cyst K86.2 Controlled substance agreement signed Z79.899 Pre-transplant evaluation for chronic liver disease Z01.818 Chronic cholecystitis K81.1 History of alcohol abuse F10.11 Biliary colic K80.50 Persistent insomnia G47.00 Labs: Lab Results Component Value Date/Time CREAT GFR 0.96 04/30/2016 01:58 PM CREATININE - [facility] 1.0 06/05/2022 02:46 PM CREATININE - [facility] 1.2 12/13/2019 04:22 PM CREATININE, RANDOM URINE - [facility] 205 07/11/2016 10:57 AM CREATININE-OUTSIDE LAB 1.01 06/19/2017 12:00 AM Lab Results Component Value Date/Time POTASSIUM - [facility] 3.8 06/05/2022 02:46 PM POTASSIUM - [facility] 4.4 12/13/2019 04:22 PM POTASSIUM-OUTSIDE LAB 3.7 06/19/2017 12:00 AM Lab Results Component Value Date/Time TSH - [facility] 2.14 12/16/2016 08:17 AM Lab Results Component Value Date/Time LDL CHOLESTEROL (CALCULATED) - [facility] 80 12/02/2018 03:14 PM LDL CHOLESTEROL (CALCULATED) - [facility] 162 (H) 12/16/2016 08:17 AM LDL CHOLESTEROL (DIRECT MEASURE) - [facility] 74 03/08/2022 03:35 PM LDL CHOLESTEROL (DIRECT MEASURE) - [facility] NOT APPLICABLE 12/02/2018 03:14 PM LDL CHOLESTEROL (DIRECT MEASURE) - [facility] NOT APPLICABLE 06/07/2016 09:12 AM Lab Results Component Value Date/Time ALT - [facility] 40 06/05/2022 02:46 PM ALT - [facility] 29 12/13/2019 04:22 PM Hemoglobin AIC Results: Lab Results Component Value Date/Time HEMOGLOBIN A1C - [facility] 5.6 08/14/2017 02:54 PM HEMOGLOBIN A1C - [facility] 4.4 12/16/2016 08:17 AM HEMOGLOBIN A1C - [facility] 4.6 06/07/2016 09:18 AM * Telephone Encounter - Gisele Head - 01/14/2023 9:35 AM EDT Did you pend patient's preferred pharmacy and medication before forwarding?yes Pharmacy: [facility], [address] [place] Pending Prescriptions: Disp Refills busPIRone HCl 5 MG Oral Tablet (Buspar) 180 Ta*3 Sig: Take 1 Tablet by mouth in the morning and 1 Tablet before bedtime. Folic Acid 1 MG Oral Tablet 90 Tab*3 Sig: Take 1 Tablet by mouth in the morning. Spironolactone 25 MG Oral Tablet (Aldacto*90 Tab*3 Sig: Take 1 Tablet by mouth in the morning. Last Visit: 12/17/2022 (in office), Visit date not found (telemedicine) Next Visit: 03/11/2023 If no future appointments scheduled, and last appointment is greater than a year ago, please schedule patient for a follow-up appointment Last date the medication was ordered: 01/08/2022 Is this request for a controlled substance?No [...] Labs: Lab Results Component Value Date/Time CREAT 1.0 06/05/2022 02:46 PM CREAT 1.2 12/13/2019 04:22 PM POTASSIUM 3.8 06/05/2022 02:46 PM POTASSIUM 4.4 12/13/2019 04:22 PM TSH 2.14 12/16/2016 08:17 AM LDLCALC 80 12/02/2018 03:14 PM LDLDIRECT 74 03/08/2022 03:35 PM LDLDIRECT NOT APPLICABLE 12/02/2018 03:14 PM ALT 40 06/05/2022 02:46 PM ALT 29 12/13/2019 04:22 PM HGBA1C 5.6 08/14/2017 02:54 PM documented in this encounter Plan of Treatment Upcoming Encounters Date Type Specialty Care Team Description 03/11/2023 Office Visit Family Medicine Ollie Stein[address] [place] [address] 05/05/2023 Hospital Encounter Endoscopy Jamil Bond MD [address] [place] [address] 05/05/2023 Surgery Endoscopy Jamil Bond MD [address] [place] [address] ESOPHAGOGASTRODUODENOSCOPY (EGD), FLEXIBLE, TRANSORAL, DIAGNOSTIC 05/06/2023 Imaging [...] 2018 Sigmoidoscopy 2018 Depression Screening 12/20/2020 12/21/2019 COVID-19 Vaccine (2022- season) 2022 03/08/2022, 03/07/2021, 07/26/2020, Additional history exists Diabetes Screening 06/05/2025 06/05/2022, 1 05/09/2021, 03/07/2021, [...] the patient have Health Care Power of Fiber Optic Central Office Installer? No Code Status History Code Status Date [...] the patient have Health Care Power of Fiber Optic Central Office Installer? No Full Code 02/10/2016 5:50 PM 02/20/2016 12:09 AM Th is order reflects the patients wishes and were consensually agreed upon. Question Answer Comments Discussion of Advance Directives occurred with: Patient Does the patient have a Living Will? No Does the patient have Health Care Power of Fiber Optic Central Office Installer? No Full Code 01/15/2016 3:25 PM 01/18/2016 6:24 PM Thi s order reflects the patients wishes and were consensually agreed upon. Question Answer Comments Discussion of Advance Directives occurred with: Patient Does the patient have a Living Will? No Does the patient have Health Care Power of Fiber Optic Central Office Installer? No Care Teams Data Operations Director Relationship Specialty Start Date End Date Ollie Stein, [address] [place] [address] PCP - General Internal Medicine 06/07/16 documented as of this encounter
--- OUTSIDE RECORDS SUMMARY | 2023-03-13 22:41 | External Medical Summary | Summary of Care ---
Author Name Unknown Organization [facility] Address [address] [place] [facility] [place] [address] Phone [phone] Care Team Providers Care Hydroelectric Component Machinist Name Role Phone Michelle Borrego Primary Care Provider + [phone] Reason for Visit * Reason Comments eRx-Medication Refill Encounter Details Date Type Department Care Team Description 12/17/2022 Refill Gastroenterology, [facility] [address] [place] [address] Savanna Meza CRNP [address] [place] [address] Allergies Active Allergy Reactions Severity Noted Date Comments Aspirin Other (Please comment) 02/12/2016 Reports having a bloody nose. documented as of this encounter (statuses as of 12/18/2022) Medications Medication Sig Dispensed Refills Start Date [...] 01/08/2022 Active Furosemide 20 MG Oral Tablet (Lasix)Indicatio ns:Alcoholic cirrhosis of liver with ascites (HCC) Take [...] mouth in the morning. 0 11/25/2022 Active buPROPion HCl ER (XL) 150 MG Oral Tablet Extended Release 24 Hour (Wellbutrin XL)Indications:P ersistent insomnia,History of alcohol abuse Take 1 Tablet by mouth in the morning. 30 Tablet 5 11/28/2022 Active Ursodiol 300 MG Oral Capsule (Actigall) TAKE ONE CAPSULE BY MOUTH TWICE DAILY 180 Capsule 12 12/18/2022 Active Ursodiol 300 MG Oral Capsule (Actigall) TAKE ONE CAPSULE BY MOUTH TWICE DAILY 180 Capsule 12 11/18/2021 12/18/2022 Discontinued Hospital, Clinic, or Other Facility Administered Medication Ordered Dose Route Frequency Start Date End Date Status ciprofloxacin-dexametha sone (CIPRO-DEX) OTIC DROPS 4 DropIndications:Acute malignant otitis externa of left ear 4 Drop LEFT EAR BID (.AM/PM) 01/22/2020 Act linda documented as of this encounter (statuses as of 12/18/2022) Active Problems Problem Noted Date Biliary colic [...] as of this encounter (statuses as of 12/18/2022) Resolved Problems Problem Noted Date Resolved Date Abdominal pain 05/13/2017 06/01/2018 Alcohol withdrawal seizure without complication 06/07/2016 06/01/2018 Hyponatremia 04/16/2016 06/01/2018 Generalized abdominal pain 04/16/201606/07 Nausea without vomiting 04/16/2016 06/02/19 19 Seizures 01/18/2016 06/07/2016 Delirium tremens 01/18/2016 02/12/2017 Alcohol withdrawal 01/18/2016 02/12/2017 Tobacco use disorder 01/18/2016 12/02/2018 Thrombocytopenia 01/18/2016 12/21/2019 Alcohol abuse 01/18/2016 06/01/2018 documented as of this encounter (statuses as of 12/18/2022) Immunizations Name Administration Dates Next Due COVID-19 [...] encounter Miscellaneous Notes * Telephone Encounter - RUPERT Comer - 12/18/2022 3:46 PM EDTSigned Prescriptions: Disp Refills Ursodiol 300 MG Oral Capsule (Actigall) 180 Ca*12 Sig: TAKE ONE CAPSULE BY MOUTH TWICE DAILY Authorizing Provider: SAVANNA MEZA * Telephone Encounter - Linnette Gama LPN - 12/18/2022 2:58 PM EDTPending Prescriptions: Disp Refills Ursodiol 300 MG Oral Capsule (Actigall) 180 Ca*12 Sig: TAKE ONE CAPSULE BY MOUTH TWICE DAILY * Telephone Encounter - Titus leavitt [facility] - 12/17/2022 11:30 AM EDTPending Prescriptions: Disp Refills Ursodiol 300 MG Oral Capsule [Pharmacy Med*180 Ca*12 Sig: TAKE ONE CAPSULE BY MOUTH TWICE DAILY * Telephone Encounter - Titus leavitt [facility] - 12/17/2022 11:28 AM EDT Did you pend patient's preferred pharmacy and medication before forwarding?yes Pharmacy: [facility], [address] [place] Pending Prescriptions: Disp Refills Ursodiol 300 MG Oral Capsule (Actigall) [*180 Ca*12 Sig: TAKE ONE CAPSULE BY MOUTH TWICE DAILY Last Visit: 06/05/2022 (in office), Visit date not found (telemedicine) Next Visit: Visit date not found If no future appointments scheduled, and last appointment is greater than a year ago, please schedule patient for a follow-up appointment Last date the medication was ordered: 11/18/2021 Is this request for a controlled substance?No [...] Description 03/11/2023 Office Visit Family Medicine Michelle Borrego[address] [place] [address] Health Maintenance Due Date Last Done Comments [...] 03/08/2022, 0906/2018, 12/16/2016, Additional history exists Hepatitis C Screening Completed 12/16/2016, 016 Hepatitis B Completed 02/12/2017, 07/29, 07/12/2016 COVID-19 [...] the patient have Health Care Power of Supervisor? No Code Status History Code Status [...] the patient have Health Care Power of Supervisor? No Full Code 02/10/2016 5:50 PM 02/20/2016 12:09 AM Th is order reflects the patients wishes and were consensually agreed upon. Question Answer Comments Discussion of Advance Directives occurred with: Patient Does the patient have a Living Will? No Does the patient have Health Care Power of Supervisor? No Full Code 01/15/2016 3:25 PM 01/18/2016 6:24 PM Thi s order reflects the patients wishes and were consensually agreed upon. Question Answer Comments Discussion of Advance Directives occurred with: Patient Does the patient have a Living Will? No Does the patient have Health Care Power of Supervisor? No Care Teams Hydroelectric Component Machinist Relationship Specialty Start Date End Date Michelle Borrego, [address] [place] [address] PCP - General Internal Medicine 06/07/16 documented as of this encounter
--- OUTSIDE RECORDS SUMMARY | 2023-03-13 22:41 | External Medical Summary | Summary of Care ---
Author Name Unknown Organization [facility] [address] [facility] [address] Phone [phone] Care Team Providers Care Machine Load Clerk Name Role Phone Michelle Borrego Primary Care Provider [phone] Reason for Visit * Reason Onset Date Comments Hospital Follow-Up 01/16/2023 [facility] for [facility] Encounter Details Date Type Department Care Team Description 01/16/2023 Telephone Ancillary Diya Quevedo[address] [place] [address] Erin Jolley, FELIPE Hospital Follow-Up ([facility]) Allergies Active Allergy Reactions Severity Noted Date Comments Aspirin Other (Please comment) 02/12/2016 Reports having a bloody nose. documented as of this encounter (statuses as of 01/17/2023) Medications Medication Sig Dispensed Refills Start Date [...] as of this encounter (statuses as of 01/17/2023) Active Problems Problem Noted Date Biliary colic [...] as of this encounter (statuses as of 01/17/2023) Resolved Problems Problem Noted Date Resolved Date Abdominal pain 05/13/2017 06/01/2018 Alcohol withdrawal seizure without complication 06/07/2016 06/01/2018 Hyponatremia 04/16/2016 06/01/2018 Generalized abdominal pain 04/16/201606/07 Nausea without vomiting 04/16/2016 06/02/19 19 Seizures 01/18/2016 06/07/2016 Delirium tremens 01/18/2016 02/12/2017 Alcohol withdrawal 01/18/2016 02/12/2017 Tobacco use disorder 01/18/2016 12/02/2018 Thrombocytopenia 01/18/2016 12/21/2019 Alcohol abuse 01/18/2016 06/01/2018 documented as of this encounter (statuses as of 01/17/2023) Immunizations Name Administration Dates Next Due COVID-19 [...] will be our Behavior Health CM for [facility] after 02/04. She states patient needs to call [facility] at [phone] and let them know he is interested [...] Reason for Call: Hospital Follow-Up ([facility]) Contact: Telephone Call Contact Type: Care Coordination [...] for follow up: Inpatient Hospitalization Admitted to: [facility], Date: 01.14.23 Discharged to: home, patient declined [...] Office Visit Family Medicine Allan Lepe MD [address] [place] [address] [place] [address] 03/11/2023 Office Visit Family Medicine Michelle Borrego DO [address] [place] [address] [place] [address] 05/05/2023 Hospital Encounter Endoscopy Jamil Bond MD [address] [place] [address] 05/05/2023 Surgery Endoscopy Jamil Bond MD [address] [place] [address] ESOPHAGOGASTRODUODENOSCOPY (EGD), FLEXIBLE, TRANSORAL, DIAGNOSTIC 05/06/2023 Imaging Radiology Scheduled Procedures Name Priority Associated Diagnoses Date/Ti in ESOPHAGOGASTRODUODENOSCOPY ( EGD), FLEXIBLE, TRANSORAL, DIAGNOSTIC Alcoholic [...] the patient have Health Care Power of Nuclear Waste Process Operator? No Code Status History Code Status Date [...] the patient have Health Care Power of Nuclear Waste Process Operator? No Full Code 02/10/2016 5:50 PM 02/20/2016 12:09 AM Th is order reflects the patients wishes and were consensually agreed upon. Question Answer Comments Discussion of Advance Directives occurred with: Patient Does the patient have a Living Will? No Does the patient have Health Care Power of Nuclear Waste Process Operator? No Full Code 01/15/2016 3:25 PM 01/18/2016 6:24 PM Thi s order reflects the patients wishes and were consensually agreed upon. Question Answer Comments Discussion of Advance Directives occurred with: Patient Does the patient have a Living Will? No Does the patient have Health Care Power of Nuclear Waste Process Operator? No Care Teams Machine Load Clerk Relationship Specialty Start Date End Date Michelle Borrego, [address] [place] [phone] PCP - General Internal Medicine 06/07/16 documented as of this encounter
--- OUTSIDE RECORDS SUMMARY | 2023-03-13 22:41 | External Medical Summary | Summary of Care ---
Author Name Unknown Organization [facility] Address [address] [facility] [address] Phone [phone] Care Team Providers Care Nuclear Radiation Engineer Name Role Phone Michelle Borrego Primary Care Provider [phone] Reason for Visit * Reason Onset Date Comments Hospital Follow-Up 12/13/2022 [facility] for [facility] Encounter Details Date Type Department Care Team Description 12/13/2022 Telephone Ancillary Diya Quevedo[address] [place] [address] Erin Jolley, FELIPE Hospital Follow-Up ([facility] for [facility]/) Allergies Active Allergy Reactions Severity Noted Date Comments Aspirin Other (Please comment) 02/12/2016 Reports having a bloody nose. documented as of this encounter (statuses as of 12/13/2022) Medications Medication Sig Dispensed Refills Start Date End Date Status Ursodiol 300 MG Oral Capsule (Actigall) TAKE ONE CAPSULE BY MOUTH TWICE DAILY 180 Capsule 12 11/18/2021 Active Nadolol 20 MG Oral Tablet (Corgard) Take by mouth 1 Tablet in the morning. 90 Tablet 3 11/19/2021 Active Folic Acid 1 MG Oral Tablet [...] 01/08/2022 Active Furosemide 20 MG Oral Tablet (Lasix)Indications:A lcoholic cirrhosis of liver with ascites (HCC) Take 1 Tablet (20 mg) by mouth in the morning. 90 Tablet 3 02/08/2022 Active Zolpidem Tartrate 5 MG Oral Tablet (Ambien)Indications: Primary insomnia Take 1 Tablet by mouth at bedtime as needed for Sleep. 90 Tablet 1 05/28/2022 Active Pantoprazole Sodium 20 MG Oral Tablet [...] Oral Tablet Extended Release 24 Hour (Wellbutrin XL)Indications:Persi stent insomnia,History of alcohol abuse Take 1 Tablet by mouth in the morning. 30 Tablet 5 11/28/2022 Active Hospital, Clinic, or Other Facility Administered Medication Ordered Dose Route Frequency Start Date End Date Status ciprofloxacin-dexametha sone (CIPRO-DEX) OTIC DROPS 4 DropIndications:Acute malignant otitis externa of left ear 4 Drop LEFT EAR BID (.AM/PM) 01/22/2020 Act linda documented as of this encounter (statuses as of 12/13/2022) Active Problems Problem Noted Date Biliary colic [...] as of this encounter (statuses as of 12/13/2022) Resolved Problems Problem Noted Date Resolved Date Abdominal pain 05/13/2017 06/01/2018 Alcohol withdrawal seizure without complication 06/07/2016 06/01/2018 Hyponatremia 04/16/2016 06/01/2018 Generalized abdominal pain 04/16/201606/07 Nausea without vomiting 04/16/2016 06/02/19 19 Seizures 01/18/2016 06/07/2016 Delirium tremens 01/18/2016 02/12/2017 Alcohol withdrawal 01/18/2016 02/12/2017 Tobacco use disorder 01/18/2016 12/02/2018 Thrombocytopenia 01/18/2016 12/21/2019 Alcohol abuse 01/18/2016 06/01/2018 documented as of this encounter (statuses as of 12/13/2022) Immunizations Name Administration Dates Next Due COVID-19 mRNA, LNP-s, No Pre serve, 2-Dose Series (Moderna) 07/26/2020,06/13/2020 COVID-19, mRNA, LNP-s, PF, B ooster, 100mcg/0.5mg (Moderna) 03/07/2021 Covid-19, Mrna, Lnp-s, Pf, B ivalent, 30 Mcg, IM, 12 yrs and above ([employer]) 03/08/2022 HEP A - Hepatitis A (Adult > 18 yrs) 02/12/2017, 07/12/2016 Hepatitis B, 20+ yrs 02/12/2017,08/16/2016,07/12 Pneumococcal Polysaccharide PPV23 (Pneumovax) 05/26/2017 Seasonal Influenza, PF, 6 mo ns & Above, IM , (Flulaval) 02/08/2022,11/29/2020,12/13/2019,06/01,02/12/2017 TDAP (age 10 and older)(Boostrix) 11/12/2016 documented [...] Telephone Encounter - Erin Jolley RN - 12/13/2022 4:07 PM EDT Transitions of Care Note Reason for Referral: Recent Admission Phone visit for follow up: Inpatient Hospitalization Admitted to: [facility], Date: 12.08.22 Discharged to: home, Date: 12.12.22 JORI call not indicated due to alcohol withdrawal pt is willing to do rehab. Pt is schedules for 12/17/[address] Lepe documented in this encounter Plan of Treatment Upcoming Encounters Date Type Specialty Care Team Description 12/17/2022 Office Visit Family Medicine Allan Lepe MD [address] [place] [address] [place] [address] 03/11/2023 Office Visit Family Medicine Michelle Borrego DO [address] [place] [address] [place] [address] Health Maintenance Due Date Last Done Comments Pneumococcal Vaccine: Pediatrics (0 to 5 Years) and At-Risk Patients (6 to 64 Years) (2 - PCV) 05/26/2018 05/26/2017 Colonoscopy 2018 Fecal Occult Blood Test 2018 Sigmoidoscopy 2018 Depression Screening 12/20/2020 12/21/2019 Influenza Vaccine (FLU shot) (#1) 2022 02/08/2022, 11/29/2020, 12/13/2019, Additional history exists Diabetes Screening 06/05/2025 06/05/2022, 1 05/09/2021, 03/07/2021, Additional history exists Cologuard 08/23/2025 08/23/2022, 08/17/2022 Colorectal Cancer Screening 08/23/2025 DTaP,Tdap,and Td Vaccines (2 - Td or Tdap) 11/12/2026 11/12/2016 Lipid Panel 03/08/2027 03/08/2022, 090 06/2018, 12/16/2016, Additional history exists Hepatitis C Screening Completed 12/16/2016, 016 Hepatitis B Completed 02/12/2017, 07/29, 07/12/2016 COVID-19 Vaccine Completed 03/08/2022, 10/2020, 07/26/2020, Additional history exists GARDASIL-HPV IMMUNIZATION SERIES Aged [...] the patient have Health Care Power of Rehab Therapist? No Code Status History Code Status Date [...] the patient have Health Care Power of Rehab Therapist? No Full Code 02/10/2016 5:50 PM 02/20/2016 12:09 AM Th is order reflects the patients wishes and were consensually agreed upon. Question Answer Comments Discussion of Advance Directives occurred with: Patient Does the patient have a Living Will? No Does the patient have Health Care Power of Rehab Therapist? No Full Code 01/15/2016 3:25 PM 01/18/2016 6:24 PM Thi s order reflects the patients wishes and were consensually agreed upon. Question Answer Comments Discussion of Advance Directives occurred with: Patient Does the patient have a Living Will? No Does the patient have Health Care Power of Rehab Therapist? No Care Teams Nuclear Radiation Engineer Relationship Specialty Start Date End Date Michelle Borrego, [address] [place] [phone] PCP - General Internal Medicine 06/07/16 documented as of this encounter
--- OUTSIDE RECORDS SUMMARY | 2023-03-13 22:41 | External Medical Summary | Summary of Care ---
Author Name Unknown Organization [facility] Address [address] [facility] [address] Phone [phone] Care Team Providers Care Synthetic Soil Blocks Pulper Name Role Phone Michelle Borrego Primary Care Provider [phone] Reason for Visit * Reason Onset Date Comments Hospital Follow-Up 01/16/[address] [facility] Encounter Details Date Type Department Care Team Description 01/16/2023 Telephone Ancillary Diya Quevedo[address] [place] [id number] Erin Jolley, FELIPE Hospital Follow-Up (Jori for [facility]) Allergies Active Allergy Reactions Severity Noted Date [...] will be our Behavior Health CM for [facility] after 02/04. She states patient needs to call [facility] at [phone] and let them know he is interested [...] Office Visit Family Medicine Allan Lepe MD [address] [place] [address] [place] [address] 03/11/2023 Office Visit Family Medicine Michelle Borrego DO [address] [place] [address] [place] [address] 05/05/2023 Hospital Encounter Endoscopy Jamil Bond MD [address] [place] [address] 05/05/2023 Surgery Endoscopy Jamil Bond MD [address] [place] [address] ESOPHAGOGASTRODUODENOSCOPY (EGD), FLEXIBLE, TRANSORAL, DIAGNOSTIC 05/06/2023 Imaging [...] the patient have Health Care Power of Commercial Credit Portfolio Manager? No Code Status History Code Status Date [...] the patient have Health Care Power of Commercial Credit Portfolio Manager? No Full Code 02/10/2016 5:50 PM 02/20/2016 12:09 AM Th is order reflects the patients wishes and were consensually agreed upon. Question Answer Comments Discussion of Advance Directives occurred with: Patient Does the patient have a Living Will? No Does the patient have Health Care Power of Commercial Credit Portfolio Manager? No Full Code 01/15/2016 3:25 PM 01/18/2016 6:24 PM Thi s order reflects the patients wishes and were consensually agreed upon. Question Answer Comments Discussion of Advance Directives occurred with: Patient Does the patient have a Living Will? No Does the patient have Health Care Power of Commercial Credit Portfolio Manager? No Care Teams Synthetic Soil Blocks Pulper Relationship Specialty Start Date End Date Michelle Borrego, [address] [place] [address] PCP - General Internal Medicine 06/07/16 documented as of this encounter
--- OUTSIDE RECORDS SUMMARY | 2023-03-13 22:41 | External Medical Summary | Summary of Care ---
Author Name Unknown Organization [facility] Address [address] [facility] [address] Phone [phone] Care Team Providers Care Paraprofessional Interpreter Name Role Phone Michelle Borrego Primary Care Provider [phone] Reason for Visit * Reason Onset Date Comments Hospital Follow-Up 01/16/2023 Jori for [facility] Encounter Details Date Type Department Care Team Description 01/16/2023 Telephone Ancillary Diya Quevedo[address] [place] [address] Erin Jolley, FELIPE Hospital Follow-Up (Jori for [facility]) Allergies Active Allergy Reactions Severity [...] encounter Miscellaneous Notes * Telephone Encounter - Allan Lepe MD - 01/16/2023 11:50 AM EDT He should be seeing an addiction counselor. Just asking me for a pill is not sufficient. * Telephone Encounter - Erin Jolley RN - 01/16/2023 11:34 AM EDT Transitions of Care Note Reason for Referral: Recent Admission Phone visit for follow up: Inpatient Hospitalization Admitted to: [facility], Date: 01.14.23 Discharged to: home, [...] Office Visit Family Medicine Allan Lepe MD [address] [place] [address] [place] [address] 03/11/2023 Office Visit Family Medicine Michelle Borrego DO [address] [place] [address] [place] [address] 05/05/2023 Hospital Encounter Endoscopy Jamil Bond MD [address] [place] [address] 05/05/2023 Surgery Endoscopy Jamil Bond MD [address] [place] [address] ESOPHAGOGASTRODUODENOSCOPY (EGD), FLEXIBLE, TRANSORAL, DIAGNOSTIC 05/06/2023 Imaging [...] 2018 Depression Screening 12/20/2020 12/21/2019 COVID-19 Vaccine ( season) 2022 03/08/2022, 03/07/2021, 07/26/2020, Additional history [...] the patient have Health Care Power of Residential Supervisor? No Code Status History Code Status [...] the patient have Health Care Power of Residential Supervisor? No Full Code 02/10/2016 5:50 PM 02/20/2016 12:09 AM Th is order reflects the patients wishes and were consensually agreed upon. Question Answer Comments Discussion of Advance Directives occurred with: Patient Does the patient have a Living Will? No Does the patient have Health Care Power of Residential Supervisor? No Full Code 01/15/2016 3:25 PM 01/18/2016 6:24 PM Thi s order reflects the patients wishes and were consensually agreed upon. Question Answer Comments Discussion of Advance Directives occurred with: Patient Does the patient have a Living Will? No Does the patient have Health Care Power of Residential Supervisor? No Care Teams Paraprofessional Interpreter Relationship Specialty Start Date End Date Michelle Borrego, [address] [place] [address] PCP - General Internal Medicine 06/07/16 documented as of this encounter
--- OUTSIDE RECORDS SUMMARY | 2023-03-13 22:41 | External Medical Summary | Summary of Care ---
Author Name Unknown Organization [facility] Address [address] [facility] [place] [address] Phone [phone] Care Team Providers Care Loft Rigger Name Role Phone Michelle Borrego DO Primary Care Provider + [phone] Reason for Visit * Reason Onset Date Comments Hospital Follow-Up 11/26/2022 Encounter Details Date Type Department Care Team Description 11/26/[address] [address] Michelle Borrego DO [address] [place] [address] [place] [address] Hospital Follow-Up Allergies Active Allergy Reactions Severity Noted Date Comments Aspirin Other (Please comment) 02/12/2016 Reports having a bloody nose. documented as of this encounter (statuses as of 11/27/2022) Medications Medication Sig Dispensed Refills Start Date [...] EVERY MORNING 90 Tablet 1 07/23/2022 Active Hospital, Clinic, or Other Facility Administered Medication Ordered Dose Route Frequency Start Date End Date Status ciprofloxacin-dexamethaso ne (CIPRO-DEX) OTIC DROPS 4 DropIndications:Acute malignant otitis externa of left ear 4 Drop LEFT EAR BID(AM/PM) 01/22/2020 Active documented as of this encounter (statuses as of 11/27/2022) Active Problems Problem Noted Date Biliary colic 07/11/2019 History of alcohol abuse 06/01/2018 Chronic cholecystitis 11/10/2016 Pre-transplant evaluation for chronic li neda disease 09/30/2016 Controlled substance agreement signed Pancreatic cyst 08/18/2016 Overview: 5mm, Needs repeat MRCP in 07/2017 Secondary esophageal varices without ble eding 06/07/2016 Alcoholic cirrhosis of liver with ascite s 03/08/2016 Macrocytic anemia 01/18/2016 Coagulopathy 01/18/2016 documented as of this encounter (statuses as of 11/27/2022) Resolved Problems Problem Noted Date Resolved Date Abdominal pain 05/13/2017 06/01/2018 Alcohol withdrawal seizure without complication 06/07/2016 06/01/2018 Hyponatremia 04/16/2016 06/01/2018 Generalized abdominal pain 04/16/201606/07 Nausea without vomiting 04/16/2016 06/02/19 19 Seizures 01/18/2016 06/07/2016 Delirium tremens 01/18/2016 02/12/2017 Alcohol withdrawal 01/18/2016 02/12/2017 Tobacco use disorder 01/18/2016 12/02/2018 Thrombocytopenia 01/18/2016 12/21/2019 Alcohol abuse 01/18/2016 06/01/2018 documented as of this encounter (statuses as of 11/27/2022) Immunizations Name Administration Dates Next Due COVID-19 mRNA, LNP-s, No Pre serve, 2-Dose Series (Moderna) 07/26/2020,06/13/2020 Covid-19 Mrna, Lnp-s, No Pre serve, Booster (Moderna) 03/07/2021 Covid-19, Mrna, Lnp-s, Pf, B [...] standard drink = 0.6 oz pure alcohol) Heavy use in the past, sober since December 2015 Sex Assigned at Date Recorded Not on [...] encounter Miscellaneous Notes * Telephone Encounter - Shira Maier RN - 11/27/2022 9:18 AM EDT Transitions of Care Note Reason for Referral:Recent Admission Phone visit for follow up: ARMAND Admitted to: [facility], Date: 11/20/22 Discharged to: Home, Date: 11/25/22 Diagnosis driving hospitalization: Alcohol withdrawal, paresthesia, b/l axillary lymphadenopathy Identified Care Gaps: Yes Care Gaps closed this call: Transition of Care follow-up communication Attempted 2nd contact for ARMAND call assessment, unable to reach patient. Left message with reason for call and call back number. Will do ARMAND assessment if patient returns call. Patient scheduled for follow up with Dr. Lepe tomorrow. Shiar Maier RN * Telephone Encounter - Shira Maier RN - 11/26/2022 11:19 AM EDT Transitions of Care Note Reason for Referral:Recent Admission Phone visit for follow up: ARMAND Admitted to: [facility], Date: 11/20/22 Discharged to: Home, Date: 11/25/22 Diagnosis driving hospitalization: Alcohol withdrawal, paresthesia, b/l axillary lymphadenopathy Attempted 1st ARMAND call, no answer. Left message with reason for call and call back number. Will attempt 2nd contact tomorrow if patient does not return my call today. documented in this encounter Plan of Treatment Upcoming Encounters Date Type Specialty Care Team Description 11/28/2022 Office Visit Family Medicine Allan Lepe MD [address] [place] [address] [place] [phone] 12/09/2022 Office Visit Gastroenterology Anatoliy Meza CRNP [address] [place] [address] 03/11/2023 Office Visit Family Medicine Michelle Borrego[address] [place] [address] Health Maintenance Due Date Last Done Comments Pneumococcal Vaccine: Pediatrics (0 to 5 Years) and At-Risk Patients (6 to 64 Years) (2 - PCV) 05/26/2018 05/26/2017 Colonoscopy 2018 Fecal Occult Blood Test 2018 Sigmoidoscopy 2018 Depression Screening, Annual for Pts 12 and Over 12/20/2020 12/21/2019 Influenza Vaccine (FLU shot) (#1) 2022 02/08/2022, 11/29/2020, 12/13/2019, Additional history exists Diabetes Screening 06/05/2025 06/05/2022, 1 05/09/2021, 03/07/2021, Additional history exists Cologuard 08/17/2025 08/17/2022 Colorectal Cancer Screening 08/17/2025 DTaP,Tdap,and Td Vaccines (2 - Td or Tdap) 11/12/2026 11/12/2016 Lipid Panel 03/08/2027 03/08/2022, 09/0 06/2018, 12/16/2016, Additional history exists Hepatitis C [...] the patient have Health Care Power of Ssds Mk 2 Advanced Operator? No Code Status History Code Status [...] the patient have Health Care Power of Ssds Mk 2 Advanced Operator? No Full Code 02/10/2016 5:50 PM 02/20/2016 12:09 AM Th is order reflects the patients wishes and were consensually agreed upon. Question Answer Comments Discussion of Advance Directives occurred with: Patient Does the patient have a Living Will? No Does the patient have Health Care Power of Ssds Mk 2 Advanced Operator? No Full Code 01/15/2016 3:25 PM 01/18/2016 6:24 PM Thi s order reflects the patients wishes and were consensually agreed upon. Question Answer Comments Discussion of Advance Directives occurred with: Patient Does the patient have a Living Will? No Does the patient have Health Care Power of Ssds Mk 2 Advanced Operator? No Care Teams Loft Rigger Relationship Specialty Start Date End Date Michelle Borrego, [address] [place] [phone] PCP - General Internal Medicine 06/07/16 documented as of this encounter
--- OUTSIDE RECORDS SUMMARY | 2023-03-13 22:41 | External Medical Summary | Summary of Care ---
Author Name Unknown Organization [facility] Address [address] [facility] [place] [address] Phone [phone] Care Team Providers Care Engraver Pantograph Name Role Phone Michelle Borrego DO Primary Care Provider + [phone] Reason for Visit * Reason Onset Date Comments Appointment 12/18/2022 HD appt needed Encounter Details Date Type Department Care Team Description 12/18/2022 Telephone Family Medicine [address] [address] Michelle Borrego DO [address] [place] [address] [place] [address] Appointment (HD appt needed) Allergies Active Allergy Reactions Severity Noted Date Comments Aspirin Other (Please comment) 02/12/2016 Reports having a bloody nose. documented as of this encounter (statuses as of 12/18/2022) Medications Medication Sig Dispensed Refills Start Date End Date Status Ursodiol 300 MG Oral Capsule (Actigall) TAKE ONE CAPSULE BY MOUTH TWICE DAILY 180 Capsule 12 11/18/2021 Active Folic Acid 1 MG Oral Tablet [...] the morning. 30 Tablet 5 11/28/2022 Active Nadolol 20 MG Oral Tablet (Corgard) Take 1 Tablet by mouth in the morning. 90 Tablet 3 12/18/2022 Active Zolpidem Tartrate 5 MG Oral Tablet (Ambien)Indications: Primary insomnia Take 1 Tablet by mouth at bedtime as needed for Sleep. 90 Tablet 1 12/18/2022 Active Hospital, Clinic, or Other Facility Administered [...] encounter Miscellaneous Notes * Telephone Encounter - SONIA Mccauley - 12/18/2022 2:15 PM EDT Pt was seen yesterday for hospital followup. 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 Needs to be scheduled for HD appt. documented in this encounter Plan of Treatment Upcoming Encounters Date Type Specialty Care Team Description 03/11/2023 Office Visit Family Medicine Michelle Borrego, [address] [place] [address] Health Maintenance Due [...] 03/08/2022, 06/2018, 12/16/2016, Additional history exists Hepatitis C [...] the patient have Health Care Power of File System Installer? No Code Status History Code Status [...] the patient have Health Care Power of File System Installer? No Full Code 02/10/2016 5:50 PM 02/20/2016 12:09 AM Th is order reflects the patients wishes and were consensually agreed upon. Question Answer Comments Discussion of Advance Directives occurred with: Patient Does the patient have a Living Will? No Does the patient have Health Care Power of File System Installer? No Full Code 01/15/2016 3:25 PM 01/18/2016 6:24 PM Thi s order reflects the patients wishes and were consensually agreed upon. Question Answer Comments Discussion of Advance Directives occurred with: Patient Does the patient have a Living Will? No Does the patient have Health Care Power of File System Installer? No Care Teams Engraver Pantograph Relationship Specialty Start Date End Date Michelle Borrego, [address] [place] [phone] PCP - General Internal Medicine 06/07/16 documented as of this encounter
--- OUTSIDE RECORDS SUMMARY | 2023-03-13 22:41 | External Medical Summary | Summary of Care ---
Author Name Unknown Organization [facility] Address [address] [facility] [address] Phone [phone] Care Team Providers Care Dry Roller Name Role Phone Michelle Borrego Primary Care Provider [phone] Reason for Visit * Reason Onset Date Comments Hospital Follow-Up 01/16/2023 Jori for [facility] Encounter Details Date Type Department Care Team Description 01/16/2023 Telephone Ancillary Diya Quevedo[address] [place] [address] Erin Jolley, FELIPE Hospital Follow-Up (Jori for [facility]) Allergies Active Allergy Reactions Severity [...] for follow up: Inpatient Hospitalization Admitted to: [facility], Date: 01.14.23 Discharged to: home, [...] Office Visit Family Medicine Allan Lepe MD [address] [place] [address] [place] [address] 03/11/2023 Office Visit Family Medicine Michelle Borrego DO [address] [place] [address] [place] [address] 05/05/2023 Hospital Encounter Endoscopy Jamil Bond MD [address] [place] [address] 05/05/2023 Surgery Endoscopy Jamil Bond MD [address] [place] [address] ESOPHAGOGASTRODUODENOSCOPY (EGD), FLEXIBLE, TRANSORAL, DIAGNOSTIC 05/06/2023 Imaging [...] the patient have Health Care Power of Clerical Car Checker? No Code Status History Code Status Date [...] the patient have Health Care Power of Clerical Car Checker? No Full Code 02/10/2016 5:50 PM 02/20/2016 12:09 AM Th is order reflects the patients wishes and were consensually agreed upon. Question Answer Comments Discussion of Advance Directives occurred with: Patient Does the patient have a Living Will? No Does the patient have Health Care Power of Clerical Car Checker? No Full Code 01/15/2016 3:25 PM 01/18/2016 6:24 PM Thi s order reflects the patients wishes and were consensually agreed upon. Question Answer Comments Discussion of Advance Directives occurred with: Patient Does the patient have a Living Will? No Does the patient have Health Care Power of Clerical Car Checker? No Care Teams Dry Roller Relationship Specialty Start Date End Date Michelle Borrego, [address] [place] [address] PCP - General Internal Medicine 06/07/16 documented as of this encounter
--- OUTSIDE RECORDS SUMMARY | 2023-03-13 22:41 | External Medical Summary | Summary of Care ---
Author Name Unknown Organization [facility] Address [address] [facility] [place] [address] Phone [phone] Care Team Providers Care Hand Scraper Name Role Phone Michelle Borrego DO Primary Care Provider + [phone] Reason for Visit * Reason Onset Date Comments Forms Request 12/19/2022 Encounter Details Date Type Department Care Team Description 12/19/2022 Telephone Family [address] [address] Michelle Borrego DO [address] [place] [address] [place] [address] Forms Request Allergies Active Allergy Reactions Severity Noted Date Comments Aspirin Other (Please comment) 02/12/2016 Reports having a bloody nose. documented as of this encounter (statuses as of 12/26/2022) Medications Medication Sig Dispensed Refills Start Date [...] Active Zolpidem Tartrate 5 MG Oral Tablet (Ambien)Indicati ons:Primary insomnia Take 1 Tablet by mouth at bedtime as needed for Sleep. 90 Tablet 1 12/18/2022 Active buPROPion HCl ER (XL) 150 MG Oral Tablet Extended Release 24 Hour (Wellbutrin XL)Indications:P ersistent insomnia,History of alcohol abuse Take 1 Tablet by mouth in the morning. 30 Tablet 5 11/28/2022 12/24/2022 Discontinued Hospital, Clinic, or Other Facility Administered Medication Ordered Dose Route Frequency Start Date End Date Status ciprofloxacin-dexa methasone (CIPRO-DEX) OTIC DROPS 4 DropIndications:Ac picayune malignant otitis externa of left ear 4 Drop LEFT EAR BID (.AM/PM) 01/22/2020 3 Discontinued documented as of this encounter (statuses as of 12/26/2022) Active Problems Problem Noted Date Biliary colic [...] as of this encounter (statuses as of 12/26/2022) Resolved Problems Problem Noted Date Resolved Date Abdominal pain 05/13/2017 06/01/2018 Alcohol withdrawal seizure without complication 06/07/2016 06/01/2018 Hyponatremia 04/16/2016 06/01/2018 Generalized abdominal pain 04/16/201606/07 Nausea without vomiting 04/16/2016 06/02/19 19 Seizures 01/18/2016 06/07/2016 Delirium tremens 01/18/2016 02/12/2017 Alcohol withdrawal 01/18/2016 02/12/2017 Tobacco use disorder 01/18/2016 12/02/2018 Thrombocytopenia 01/18/2016 12/21/2019 Alcohol abuse 01/18/2016 06/01/2018 documented as of this encounter (statuses as of 12/26/2022) Immunizations Name Administration Dates Next Due COVID-19 [...] encounter Miscellaneous Notes * Telephone Encounter - Maite Staples LPN - 12/26/2022 11:43 AM EDT Letter sent to pt to call us. There are a couple questions we have for the form. * Telephone Encounter - Maite Staples LPN - 12/20/2022 8:[address] Lepe needs to know when this [facility] start date is and when it ends. Unable to reach pt. Cell phone has calling restrictions on it. Unable to reach pt. Form is on my desk. * Telephone Encounter - Allan Lepe MD - 12/19/2022 2:25 PM EDT I told him I would * Telephone Encounter - Daniela Cox LPN - 12/19/2022 11:06 AM EDT Received a fax from pt's employer/[employer] for leave of absence paperwork. Pt saw Dr. Lepe on 12/17/22. Is he willing to complete this? documented in this encounter Plan of Treatment Upcoming Encounters Date Type Specialty Care Team Description 03/11/2023 Office Visit Family Medicine Michelle Borrego, [address] [place] [phone] 05/05/2023 Hospital Encounter Endoscopy Jamil Bond MD [address] [place] [address] 05/05/2023 Surgery Endoscopy Jamil Bond MD [address] [place] [address] ESOPHAGOGASTRODUODENOSCOPY (EGD), FLEXIBLE, TRANSORAL, DIAGNOSTIC 05/06/2023 Imaging [...] the patient have Health Care Power of Chief Hydroelectric Station Operator? No Code Status History Code Status [...] the patient have Health Care Power of Chief Hydroelectric Station Operator? No Full Code 02/10/2016 5:50 PM 02/20/2016 12:09 AM Th is order reflects the patients wishes and were consensually agreed upon. Question Answer Comments Discussion of Advance Directives occurred with: Patient Does the patient have a Living Will? No Does the patient have Health Care Power of Chief Hydroelectric Station Operator? No Full Code 01/15/2016 3:25 PM 01/18/2016 6:24 PM Thi s order reflects the patients wishes and were consensually agreed upon. Question Answer Comments Discussion of Advance Directives occurred with: Patient Does the patient have a Living Will? No Does the patient have Health Care Power of Chief Hydroelectric Station Operator? No Care Teams Hand Scraper Relationship Specialty Start Date End Date Michelle Borrego[address] [place] [address] PCP - General Internal Medicine 06/07/16 documented as of this encounter
--- OUTSIDE RECORDS SUMMARY | 2023-03-13 22:41 | External Medical Summary | Summary of Care ---
Author Name Unknown Organization [facility] Address [address] [place] [address] Phone [phone] Care Team Providers Care Diabetes Territory Manager Name Role Phone Michelle Borrego Primary Care Provider + [phone] Reason for Visit * Reason Comments Hospital Follow-Up Encounter Details Date Type Department Care Team Description 12/17/2022 Office Visit Family Medicine [address] [address] Allan Lepe MD [address] [place] [address] [place] [id number] Alcoholic cirrhosis of liver with ascites (HCC)*; Need for influenza vaccination; History of alcohol abuse; Secondary esophageal varices without bleeding (HCC) Allergies Active Allergy Reactions Severity Noted Date Comments Aspirin Other (Please comment) 02/12/2016 Reports having a bloody nose. documented as of this encounter (statuses as of 12/17/2022) Medications Medication Sig Dispensed Refills Start Date [...] as of this encounter (statuses as of 12/17/2022) Active Problems Problem Noted Date Biliary colic [...] as of this encounter (statuses as of 12/17/2022) Resolved Problems Problem Noted Date Resolved Date Abdominal pain 05/13/2017 06/01/2018 Alcohol withdrawal seizure without complication 06/07/2016 06/01/2018 Hyponatremia 04/16/2016 06/01/2018 Generalized abdominal pain 04/16/201606/07 Nausea without vomiting 04/16/2016 06/02/19 19 Seizures 01/18/2016 06/07/2016 Delirium tremens 01/18/2016 02/12/2017 Alcohol withdrawal 01/18/2016 02/12/2017 Tobacco use disorder 01/18/2016 12/02/2018 Thrombocytopenia 01/18/2016 12/21/2019 Alcohol abuse 01/18/2016 06/01/2018 documented as of this encounter (statuses as of 12/17/2022) Immunizations Name Administration Dates Next Due COVID-19 [...] Sign Reading Time Taken Comments Blood Pressure 120/70 12/17/2022 3:02 PM EDT Pulse 60 12/17/2022 3:02 PM EDT Temperature 35.9 C (96.6 F) 12/17/2022 3:02 PM ED T Respiratory Rate 16 12/17/2022 3:02 PM EDT Oxygen Saturation - - Inhaled Oxygen Concentration - - Weight 85.9 kg (189 lb 6 oz) 12/17/2022 3:02 PM EDT Height - - Body Mass Index 29.66 06/05/2022 2:17 PM EST documented in this [...] as of this encounter Progress Notes * Allan Lepe MD - 12/17/2022 3:01 PM EDT Darrel is here for recheck after admission 12/08 and discharge 12/12 for alcohol withdrawal. Last drink was tequila before admission. He is back to work, feels back to normal, no changes to meds. He needs to follow up with GI. Denies nausea, vomiting, or diarrhea. Denies fevers, chills or sweats. Health Maintenance addressed. Had the Coronovirus vaccine, 4 doses and we talked about the coming booster. Flu shot today. Past Medical History: Diagnosis Date Abdominal pain 05/13/2017 Alcohol abuse 01/18/2016 Alcohol withdrawal (HCC) 12/08/2022 Admitted [facility] 12/08, discharged 12/12 Alcohol withdrawal seizure without complication (HCC) 06/07/2016 Alcohol withdrawal syndrome (HCC) 11/20/2022 admitted [facility] with numbness and tingling Chronic cholecystitis Cirrhosis of liver with ascites (HCC) Esophageal varices (HCC) grade II Generalized abdominal pain 04/16/2016 Hyponatremia 04/16/2016 Nausea without vomiting 04/16/2016 Persistent insomnia 02/12/2017 Past Surgical History: Procedure Laterality Date COLOGUARD 08/17/2022 negative CTA HEAD/CTA NECK 11/20/2022 no acute abnormalities, vessels not occluded. EGD, FLEXIBLE, DIAGNOSTIC N/A 04/18/2016 nonbleeding grade II esophageal varices, portal hypertensive gastropathy/ESOPHAGOGASTRODUODENOSCOPY(EGD), FLEXIBLE, TRANSORAL, DIAGNOSTIC performed by Jamil Bond MD at OR [facility] EGD, FLEXIBLE, DIAGNOSTIC 06/11/2018 esophageal varices, portal hypertensive gastropathy, repeat 2-4 mo / [facility] EGD, FLEXIBLE, DIAGNOSTIC 05/09/2021 normal / ESOPHAGOGASTRODUODENOSCOPY (EGD), FLEXIBLE, TRANSORAL, DIAGNOSTIC performed by Matt Boyd MD at ENDOSCOPY [facility] REMOVAL OF TONSILS, UNDER AGE 12 Review of patient's allergies indicates: Allergen Reactions Aspirin Other (Please comment) Reports having a bloody nose. Social History Socioeconomic History Marital status: Single Spouse name: Not on file Number of children: 0 Years of education: Not on file Highest education level: Not on file Occupational History Occupation: Unemployed Tobacco Use Smoking status: Never Smokeless tobacco: Current Types: Snuff, Chew Tobacco comments: 1 can every 2 weeks Vaping Use Vaping Use: Never used Substance and Sexual Activity Alcohol use: No Comment: prefers tequilla. Stopped again 11/20/2022 Drug use: No Sexual activity: Not on file Other Topics Concern Not on file Social History Narrative Not on file Social Determinants of Health Financial Resource Strain: Not on file Food Insecurity: Not on file Transportation Needs: Not on file Physical Activity: Not on file Stress: Not on file Social Connections: Not on file Intimate Partner Violence: Not on file Housing Stability: Not on file Current Outpatient Medications Medication Sig Dispense Refill Ursodiol 300 MG Oral Capsule (Actigall) TAKE ONE CAPSULE BY MOUTH TWICE DAILY 180 Capsule 12 Nadolol 20 MG Oral Tablet (Corgard) Take by mouth 1 Tablet in the morning. 90 Tablet 3 Folic Acid 1 MG Oral Tablet Take by mouth 1 Tablet in the morning. 90 Tablet 3 Spironolactone 25 MG Oral Tablet (Aldactone) Take by mouth 1 Tablet in the morning. 90 Tablet 3 busPIRone HCl 5 MG Oral Tablet (Buspar) Take by mouth 1 Tablet in the morning AND 1 Tablet before bedtime. 180 Tablet 3 Furosemide 20 MG Oral Tablet (Lasix) Take [...] 1 Tablet by mouth in the morning. buPROPion HCl ER (XL) 150 MG Oral Tablet Extended Release 24 Hour (Wellbutrin XL) Take 1 Tablet by mouth in the morning. 30 Tablet 5 Zolpidem Tartrate 5 MG Oral Tablet (Ambien) Take 1 Tablet by mouth at bedtime as needed for Sleep. 90 Tablet 1 Current Facility-Administered Medications Medication Dose Route Frequency Provider Last Rate Last Admin ciprofloxacin-dexamethasone (CIPRO-DEX) OTIC DROPS 4 Drop 4 Drop Left ear BID(AM/PM) Bob Cox, Immunization History Administered Date(s) Administered COVID-19 mRNA, LNP-s, No Preserve, 2-Dose Series (Moderna) 06/13/2020, 07/26/2020 COVID-19, mRNA, LNP-s, PF, Booster, 100mcg/0.5mg (Moderna) 03/07/2021 Covid-19, Mrna, Lnp-s, Pf, Bivalent, 30 Mcg, IM, 12 yrs and above (Pfizer) 03/08/2022 HEP A - Hepatitis A (Adult > 18 yrs) 07/12/2016, 02/12/2017 Hepatitis B, 20+ yrs 07/12/2016, 08/16/2016, 02/12/2017 Pneumococcal Polysaccharide PPV23 (Pneumovax) 05/26/2017 Seasonal Influenza, PF, 6 mons & Above, IM , (Flulaval) 02/12/2017, 06/01/2018, 12/13/2019, 11/29/2020, 02/08/2022 TDAP (age 10 and older)(Boostrix) 11/12/2016 O: Blood pressure 120/70, pulse 60, temperature 35.9 C (96.6 F), temperature source Tympanic, resp. rate 16, weight 85.9 kg (189 lb 6 oz). General appearance: well developed, well nourished and in no acute distress. Neck is supple without adenopathy or thyromegaly. Chest is symmetrical and moves normally. The lungs are clear without wheezes, rales, rhonchi or rubs, and the heart is regular without murmurs or gallops, or ectopy. PMI not displaced. A: Alcoholic cirrhosis of liver with ascites (HCC) (Primary) Need for influenza vaccination - INFLUENZA VACC, QUAD, PF, 6 MONTHS & UP, 0.5 ML, IM History of alcohol abuse Secondary esophageal varices without bleeding (HCC) Currently sober. Continue other meds as before. He has appt in February. Follow Up: Return if symptoms worsen or fail to improve. documented in this encounter Nursing Notes * Maite Staples LPN - 12/17/2022 2:59 PM EDT [facility] follow up Immunization Administration Documentation Time Out Procedure Performed: Yes Patient Identified (Ask Name/Date of ): Yes Does the patient have a fever greater than 101 degrees today? No Patient allergic to latex? No VFC Stock: No Immunization(s) verified: Yes, Immunization Name: Flu, VIS Sheet(s) given: Yes Verified Side and Site: Yes Verified Shot(s) with Parent(s)/Patient: Yes documented in this encounter Plan of Treatment Upcoming Encounters Date Type Specialty Care Team Description 03/11/2023 Office Visit Family Medicine Michelle Borrego, [address] [place] [phone] Health Maintenance Due [...] ascites (HCC)- Primary Alcoholic cirrhosis of liver Need for influenza vaccination Need for prophylactic vaccination and inoculation against influenza History of alcohol abuse Nondependent alcohol abuse, in remission Secondary esophageal varices without bleeding (HCC) Esophageal varices without mention of bleeding in diseases classified elsewhere documented in this encounter Advance Directives Latest Code Status on File Code Status Date Activated Date Inactivated Comments Full Code 07/11/2019 11:18 PM 07/16/2019 4:51 PM This order reflects the patients wishes and were consensually agreed upon. Question Answer Comments Discussion of Advance Directives occurred with: Patient Does the patient have a Living Will? No Does the patient have Health Care Power of Jigger Crown Pouncing Machine Operator? No Code Status History Code Status [...] the patient have Health Care Power of Jigger Crown Pouncing Machine Operator? No Full Code 02/10/2016 5:50 PM 02/20/2016 12:09 AM Th is order reflects the patients wishes and were consensually agreed upon. Question Answer Comments Discussion of Advance Directives occurred with: Patient Does the patient have a Living Will? No Does the patient have Health Care Power of Jigger Crown Pouncing Machine Operator? No Full Code 01/15/2016 3:25 PM 01/18/2016 6:24 PM Thi s order reflects the patients wishes and were consensually agreed upon. Question Answer Comments Discussion of Advance Directives occurred with: Patient Does the patient have a Living Will? No Does the patient have Health Care Power of Jigger Crown Pouncing Machine Operator? No Care Teams Diabetes Territory Manager Relationship Specialty Start Date End Date Michelle Borrego, [address] [place] [phone] PCP - General Internal Medicine 06/07/16 documented as of this encounter
--- OUTSIDE RECORDS SUMMARY | 2023-03-13 22:41 | External Medical Summary | Summary of Care ---
Author Name Unknown Organization [facility] Address [address] [place] [address] Phone [phone] Care Team Providers Care Foreign Legal Consultant Name Role Phone Michelle Borrego Primary Care Provider + [phone] Reason for Visit * Reason Comments Hospital Follow-Up Encounter Details Date Type Department Care Team Description 11/28/2022 Office Visit Family Medicine [address] [address] Allan Lepe MD [address] [place] [address] [place] [id number] Alcoholic cirrhosis of liver with ascites (HCC)*; Persistent insomnia; History of alcohol abuse; Secondary esophageal varices without bleeding (HCC) Allergies Active Allergy Reactions Severity Noted Date Comments Aspirin Other (Please comment) 02/12/2016 Reports having a bloody nose. documented as of this encounter (statuses as of 11/28/2022) Medications Medication Sig Dispensed Refills Start Date [...] as of this encounter (statuses as of 11/28/2022) Active Problems Problem Noted Date Biliary colic [...] as of this encounter (statuses as of 11/28/2022) Resolved Problems Problem Noted Date Resolved Date Abdominal pain 05/13/2017 06/01/2018 Alcohol withdrawal seizure without complication 06/07/2016 06/01/2018 Hyponatremia 04/16/2016 06/01/2018 Generalized abdominal pain 04/16/201606/07 Nausea without vomiting 04/16/2016 06/02/19 19 Seizures 01/18/2016 06/07/2016 Delirium tremens 01/18/2016 02/12/2017 Alcohol withdrawal 01/18/2016 02/12/2017 Tobacco use disorder 01/18/2016 12/02/2018 Thrombocytopenia 01/18/2016 12/21/2019 Alcohol abuse 01/18/2016 06/01/2018 documented as of this encounter (statuses as of 11/28/2022) Immunizations Name Administration Dates Next Due COVID-19 [...] Sign Reading Time Taken Comments Blood Pressure 118/70 11/28/2022 3:04 PM EDT Pulse 55 11/28/2022 3:04 PM EDT Temperature 36.4 C (97.5 F) 11/28/2022 3:04 PM ED T Respiratory Rate 14 11/28/2022 3:04 PM EDT Oxygen Saturation 98% 11/28/2022 3:04 PM EDT Inhaled Oxygen Concentration - - Weight 84.1 kg (185 lb 7 oz) 11/28/2022 3:04 PM EDT Height - - Body Mass Index 29.04 06/05/2022 2:17 PM EST documented in this [...] Progress Notes * Allan Lepe MD - 11/28/2022 3:03 PM EDT Darrel was admitted to [facility] on 11/20, discharged 11/25 for paresthesias related to possible alcohol withdrawal, and is here for followup. He still has the gall stones and sometimes he has sx. He is on ursodiol for that He sees GI next month. Alcohol of choice is tequila. He is still withdrawing a bit. Eating is slowly improving. He still gets the anxious chest tightening but not the shakes like before. The jittery feelings will last at least an hour. Past Medical History: Diagnosis Date Abdominal pain 05/13/2017 Alcohol abuse 01/18/2016 Alcohol withdrawal seizure without complication (HCC) 06/07/2016 Alcohol withdrawal syndrome (HCC) 11/20/2022 admitted [facility] with numbness and tingling Chronic cholecystitis Cirrhosis of liver with ascites (HCC) Esophageal varices (HCC) grade II Generalized abdominal pain 04/16/2016 Hyponatremia 04/16/2016 Nausea without vomiting 04/16/2016 Persistent insomnia 02/12/2017 Past Surgical History: Procedure Laterality Date CTA HEAD/CTA NECK 11/20/2022 no acute abnormalities, vessels not occluded. EGD, FLEXIBLE, DIAGNOSTIC N/A 04/18/2016 nonbleeding grade II esophageal varices, portal hypertensive gastropathy/ESOPHAGOGASTRODUODENOSCOPY(EGD), FLEXIBLE, TRANSORAL, DIAGNOSTIC performed by Jamil Bond MD at [facility] EGD, FLEXIBLE, DIAGNOSTIC 06/11/2018 esophageal varices, portal hypertensive gastropathy, repeat 2-4 mo / [facility] EGD, FLEXIBLE, DIAGNOSTIC 05/09/2021 normal / ESOPHAGOGASTRODUODENOSCOPY (EGD), FLEXIBLE, TRANSORAL, DIAGNOSTIC performed by Matt Boyd MD at ENDOSCOPY [facility] REMOVAL OF TONSILS, UNDER AGE 12 Review [...] and Sexual Activity Alcohol use: No Comment: Heavy use in the past, sober since December 2015 Drug use: No Sexual activity: Not on [...] 1 Tablet by mouth in the morning. Zolpidem Tartrate 5 MG Oral Tablet (Ambien) Take 1 Tablet by mouth at bedtime as needed for Sleep. 90 Tablet 1 Current Facility-Administered Medications Medication Dose Route Frequency Provider Last Rate Last Admin ciprofloxacin-dexamethasone (CIPRO-DEX) OTIC DROPS 4 Drop 4 Drop Left ear BID(AM/PM) Bob Cox DO Immunization History Administered Date(s) Administered COVID-19 mRNA, LNP-s, No Preserve, 2-Dose Series (Moderna) 06/13/2020, 07/26/2020 Covid-19 Mrna, Lnp-s, No Preserve, Booster (Moderna) 03/07/2021 Covid-19, Mrna, Lnp-s, Pf, Bivalent, 30 Mcg, IM, 12 yrs and above (Pfizer) 03/08/2022 HEP A - Hepatitis A (Adult > 18 yrs) 07/12/2016, 02/12/2017 Hepatitis B, 20+ yrs 07/12/2016, 08/16/2016, 02/12/2017 Pneumococcal Polysaccharide PPV23 (Pneumovax) 05/26/2017 Seasonal Influenza, PF, 6 mons & Above, IM , (Flulaval) 02/12/2017, 06/01/2018, 12/13/2019, 11/29/2020, 02/08/2022 TDAP (age 10 and older)(Boostrix) 11/12/2016 O: Blood pressure 118/70, pulse 55, temperature 36.4 C (97.5 F), temperature source Tympanic, resp. rate 14, weight 84.1 kg (185 lb 7 oz), SpO2 98 %.. General appearance: well developed, well nourished and in no acute distress. He has a bit of a cough Neck is supple without adenopathy or thyromegaly. Chest is symmetrical and moves normally. The lungs are clear without wheezes, rales, rhonchi or rubs, and the heart is regular without murmurs or gallops, or ectopy. PMI not displaced. A: Alcoholic cirrhosis of liver with ascites (HCC) (Primary) Persistent insomnia - buPROPion HCl ER (XL) 150 MG Oral Tablet Extended Release 24 Hour (Wellbutrin XL); Take 1 Tablet by mouth in the morning. History of alcohol abuse - buPROPion HCl ER (XL) 150 MG Oral Tablet Extended Release 24 Hour (Wellbutrin XL); Take 1 Tablet by mouth in the morning. Continue other meds as before. Keep GI appt. Secondary esophageal varices without bleeding (HCC) Follow Up: Return if symptoms worsen or fail to improve. documented in this encounter Nursing Notes * Maite Staples LPN - 11/28/2022 2:59 PM EDT [facility] follow up documented in this encounter Plan of Treatment Upcoming Encounters Date Type Specialty Care Team Description 12/09/2022 Office Visit Gastroenterology Anatoliy Meza CRNP [address] [place] [phone] 03/11/2023 Office Visit Family Medicine Michelle Borrego[address] [place] [phone] Health Maintenance Due Date Last Done Comments [...] ascites (HCC)- Primary Alcoholic cirrhosis of liver Persistent insomnia Persistent disorder of initiating or maintaining sleep History of alcohol abuse Nondependent alcohol abuse, [...] the patient have Health Care Power of Acting Professor? No Code Status History Code Status Date [...] the patient have Health Care Power of Acting Professor? No Full Code 02/10/2016 5:50 PM 02/20/2016 12:09 AM Th is order reflects the patients wishes and were consensually agreed upon. Question Answer Comments Discussion of Advance Directives occurred with: Patient Does the patient have a Living Will? No Does the patient have Health Care Power of Acting Professor? No Full Code 01/15/2016 3:25 PM 01/18/2016 6:24 PM Thi s order reflects the patients wishes and were consensually agreed upon. Question Answer Comments Discussion of Advance Directives occurred with: Patient Does the patient have a Living Will? No Does the patient have Health Care Power of Acting Professor? No Care Teams Foreign Legal Consultant Relationship Specialty Start Date End Date Michelle Borrego, [address] [place] [phone] PCP - General Internal Medicine 06/07/16 documented as of this encounter
--- OUTSIDE RECORDS SUMMARY | 2023-03-13 22:41 | External Medical Summary | Summary of Care ---
Author Name Unknown Organization [facility] Address [address] [facility] [place] [address] Phone [phone] Care Team Providers Care Trend Investigator Name Role Phone Michelle Borrego DO Primary Care Provider + [phone] Reason for Visit * Reason Onset Date Comments Medication Refill 12/18/2022 Encounter Details Date Type Department Care Team Description 12/18/2022 Refill Family Medicine [address] [phone] Michelle Borrego DO [address] [place] [address] [place] [id number] Primary insomnia Allergies Active Allergy Reactions Severity Noted Date [...] 01/08/2022 Active Furosemide 20 MG Oral Tablet (Lasix)Indication s:Alcoholic cirrhosis of liver with ascites (HCC) Take [...] Oral Tablet Extended Release 24 Hour (Wellbutrin XL)Indications:Pe rsistent insomnia,History of alcohol abuse Take 1 Tablet by mouth in the morning. 30 Tablet 5 11/28/2022 Active Nadolol 20 MG Oral Tablet (Corgard) Take 1 Tablet by mouth in the morning. 90 Tablet 3 12/18/2022 Active Zolpidem Tartrate 5 MG Oral Tablet (Ambien)Indicatio ns:Primary insomnia Take 1 Tablet by mouth at bedtime as needed for Sleep. 90 Tablet 1 12/18/2022 Active Nadolol 20 MG Oral Tablet (Corgard) Take by mouth 1 Tablet in the morning. 90 Tablet 3 11/19/2021 12/18/2022 Discontinued (Refill) Zolpidem Tartrate 5 MG Oral Tablet (Ambien)Indicatio ns:Primary insomnia Take 1 Tablet by mouth at bedtime as needed for Sleep. 90 Tablet 1 05/28/2022 12/18/2022 Discontinued (Refill) Hospital, Clinic, or Other Facility Administered Medication [...] 30 Mcg, IM, 12 yrs and above (Hycrete) 03/08/2022 HEP A - Hepatitis A (Adult [...] Miscellaneous Notes * Telephone Encounter - Allan Jc MD - 12/18/2022 12:48 PM EDTSigned Prescriptions: Disp Refills Nadolol 20 MG Oral Tablet (Corgard) 90 Tab*3 Sig: Take 1 Tablet by mouth in the morning. Authorizing Provider: ALLAN JC Zolpidem Tartrate 5 MG Oral Tablet (Ambien)90 Tab*1 Sig: Take 1 Tablet by mouth at bedtime as needed for Sleep. Authorizing Provider: ALLAN JC * Telephone Encounter - Shayna Talley RN - 12/18/2022 11:53 AM EDTPending Prescriptions: Disp Refills Nadolol 20 MG Oral Tablet (Corgard) 90 Tab*3 Sig: Take 1 Tablet by mouth in the morning. Zolpidem Tartrate 5 MG Oral Tablet (Ambien)90 Tab*1 Sig: Take 1 Tablet by mouth at bedtime as needed for Sleep. * Telephone Encounter - Gisele Olivares Adilene - 12/18/2022 11:25 AM EDT Did you pend patient's preferred pharmacy and medication before forwarding?yes Pharmacy: [facility] [facility], [address] [place] Pending Prescriptions: Disp Refills Nadolol 20 MG Oral Tablet (Corgard) 90 Tab*3 Sig: Take 1 Tablet by mouth in the morning. Zolpidem Tartrate 5 MG Oral Tablet (Ambie*90 Tab*1 Sig: Take 1 Tablet by mouth at bedtime as needed for Sleep. Last Visit: 12/17/2022 (in office), Visit date not found (telemedicine) Next Visit: 03/11/2023 If no future appointments scheduled, and last appointment is greater than a year ago, please schedule patient for a follow-up appointment Last date the medication was ordered: 11/19/2021 & 05/28/2022 Is this request for a controlled substance?No [...] Description 03/11/2023 Office Visit Family Medicine Michelle Borrego[address] [place] [phone] Health Maintenance Due [...] as of this encounter Visit Diagnoses Diagnosis Primary insomnia Persistent disorder of initiating or maintaining sleep documented in this encounter Advance Directives Latest Code Status on File Code Status Date Activated Date Inactivated Comments Full Code 07/11/2019 11:18 PM 07/16/2019 4:51 PM This order reflects the patients wishes and were consensually agreed upon. Question Answer Comments Discussion of Advance Directives occurred with: Patient Does the patient have a Living Will? No Does the patient have Health Care Power of Unemployment Benefits Claims Taker? No Code Status History Code Status Date [...] the patient have Health Care Power of Unemployment Benefits Claims Taker? No Full Code 02/10/2016 5:50 PM 02/20/2016 12:09 AM Th is order reflects the patients wishes and were consensually agreed upon. Question Answer Comments Discussion of Advance Directives occurred with: Patient Does the patient have a Living Will? No Does the patient have Health Care Power of Unemployment Benefits Claims Taker? No Full Code 01/15/2016 3:25 PM 01/18/2016 6:24 PM Thi s order reflects the patients wishes and were consensually agreed upon. Question Answer Comments Discussion of Advance Directives occurred with: Patient Does the patient have a Living Will? No Does the patient have Health Care Power of Unemployment Benefits Claims Taker? No Care Teams Trend Investigator Relationship Specialty Start Date End Date Michelle Borrego[address] [place] [phone] PCP - General Internal Medicine 06/07/16 documented as of this encounter
[2023-03-14] MEDS: chlordiazePOXIDE HCl 25 MG CAP PO SCH ×4 (03:05→19:37)
[2023-03-14] MEDS: SODIUM CHLORIDE 0.9% 1,000 ML IV SCH (03:07)
[2023-03-14 06:22] LABS: Hematocrit (blood only) 42.5 % (42.0-52.0); Hemoglobin 14.7 g/dl (14.0-18.0); Mean Corpuscular Hemoglobin 34.5 pg (25.0-34.0); Mean Corpuscular Hgb Conc 34.6 g/dL (32.0-36.0); Mean Corpuscular Volume 99.8 fL (80.0-100.0); Mean Platelet Volume 10.4 fL (9.4-12.4); Platelet Count 83 K/uL (130-400); RDW Coefficient of Variation 12.2 % (11.5-14.5); Red Blood Count 4.26 M/uL (4.70-6.10); White Blood Count 3.28 K/ul (4.8-10.8)
[2023-03-14 06:30] LABS: Albumin Level 3.3 gm/dl (3.4-5.0); BUN Creatinine Ratio 11.3 (10-20); Bilirubin Direct 0.5 mg/dl (0-0.2); Bilirubin,Total 1.8 mg/dl (0.2-1.0); Creatinine Clr Calc Pharmacy 135.1 ml/min; Est GFR (African American) 127.7 ml/min; Est GFR (Non-African American) 110.2 ml/min; Magnesium 1.6 mg/dl (1.7-2.4); Potassium 3.8 mmol/L (3.5-5.1); Total Protein 6.3 gm/dl (6.0-8.3)
[2023-03-14] MEDS: MAGNESIUM SULFATE / D5W 1 GM/100 ML BAG IV SCH ×2 (09:16→11:22)
[2023-03-14] MEDS: POTASSIUM CHLORIDE 10 MEQ TABCR PO SCH (09:16)
[2023-03-14] MEDS: ACETAMINOPHEN 325 MG TAB PO PRN ×2 (09:16→19:36)
[2023-03-14] MEDS: busPIRone 5 MG TAB PO SCH ×2 (09:17→21:21)
[2023-03-14] MEDS: ursodioL 300 MG CAP PO SCH ×2 (09:17→21:23)
[2023-03-14] MEDS: SPIRONOLACTONE 25 MG TAB PO SCH (09:18)
[2023-03-14] MEDS: FUROSEMIDE 20 MG TAB PO SCH (09:18)
[2023-03-14] MEDS: THIAMINE HCL 100 MG TAB PO SCH (09:18)
[2023-03-14] MEDS: FOLIC ACID 1 MG TAB PO SCH (09:18)
[2023-03-14] MEDS: PANTOprazole 40 MG TAB PO SCH (09:18)
--- NOTE | 2023-03-14 12:52 | XRay Report ---
XR ribs RT min 2V w [id number] HISTORY: 47 years-old Male Rib pain acute right-sided rib pain status post trauma COMPARISON: Chest radiograph 01/12/2023 TECHNIQUE: PA view of the chest with 5 views of the right ribs FINDINGS: Cardiomediastinal and hilar silhouettes are within normal limits. No pneumothorax, pleural effusion o r overt pulmonary edema. There is unchanged mild right hemidiaphragmatic elevation. Mild cortical irr egularity of the anterolateral right 10th rib with 2 mm displacement. Healed chronic fracture of the right posterior 11th rib. IMPRESSION: 1. Acute minimally displaced anterolateral fracture of the right 10th rib. 2. No pneumothorax. 3. Healed chronic right 11th rib fracture. ACT 112: Negative or not required by law. The above report was generated using voice recognition software. It may contain grammatical, syntax o r spelling errors. Electronically signed by: Jhonny Fletcher M.D. 03/14/2023 12:51 PM
--- NOTE | 2023-03-14 14:16 | Hospitalist Progress Note ---
Date of Service March 14, 2023 Assessment & Plan (1) Alcohol withdrawal: Plan: Patient presenting from home with reports of symptoms of alcohol withdrawal. Longstanding history of alcohol abuse, had been sober for about 7 years however began drinking again 6 months ago with intermittent periods of brief sobriety. Recently admitted to [facility] 01/12 through 01/15 for alcohol withdrawal. Patient discharged on Librium which seemed to control cravings. Patient ran out of Librium about 1 week ago began drinking again. 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 No pneumothorax. Healed chronic right 11th rib fracture. -Denies history of trauma Incentive spirometry (2) Alcoholic cirrhosis of liver: Plan: Chronic Follows with [facility] gastroenterology as outpatient (3) Ascites: (4) Esophageal varices: Plan: H/O Paracentesis several years ago H/O Esophageal varices s/p banding in 2018, EGD 2021 - no evidence of varices --ABD USD:No abdominal ascites is identified. Continue Lasix, spironolactone, nadolol (5) Hypokalemia: (6) Hypomagnesemia: Plan: Hypokalemia Hypomagnesemia Replace electrolytes and monitor (7) Transaminitis: Plan: T. bili 2.4, AST 161, ALT 101 Secondary to alcohol use LFTs trending down Avoid hepatotoxic agents as able (8) Thrombocytopenia: Plan: In the setting of Alcoholic cirrhosis Platelet count 122 K Monitor CBC DVT PX SCDs due to thrombocytopenia Admission and Anticipated Discharge Date Admission Date: March 13, 2023 Subjective Patient is seen and examined at bedside States having right rib tenderness Also reports minimal tremor from alcohol withdrawal Denies any chest pain, dyspnea, dizziness, nausea, vomiting No other complaints Review of Systems Review of Systems: All systems reviewed & are unremarkable except as noted in Subjective Physical Exam Physical Exam: Physical Exam: Vitals signs as noted above General Appearance:Moderately built and nourished, no apparent distress Head: normocephalic, Atraumatic Eyes: normal inspection, EOMI Neck: supple, Trachea midline Respiratory/Chest: Normal breath sounds, CTA, No accessory muscle use,+ R chest tender Cardiovascular: S1, S2, No murmur Abdomen/GI:Soft, Non tender, Bowel sounds present Extremities/Musculoskeletal:normal inspection, no edema Neurologic/Psych:AAOX3, grossly no focal neurological deficits, +Tremor Skin: normal color, warm Results & Data Results & Data Vital Signs (Past 12 Hours) Vital Signs Temp Pulse Resp BP BP Pulse Ox O2 Del Method 03/14/23 10:47 36.4 C L 56 L 19 135/87 95 Room Air 03/14/23 07:19 36.5 C 49 L 18 127/78 95 Room Air 03/14/23 02:56 36.8 C 56 L 18 125/74 98 Room Air Laboratory Results Short CBC 03/14/23 Range/Units 05:36 WBC 3.28 L (4.8-10.8) K/ul Hgb 14.7 (14.0-18.0) g/dl Hct 42.5 (42.0-52.0) % Plt Count 83 L (130-400) K/uL BMP 03/14/23 05:36 Sodium 140 Potassium 3.8 Chloride 109 H Carbon Dioxide 23 BUN 8 Creatinine 0.71 Glucose 100 H Calcium 8.0 L Liver Function 03/14/23 Range/Units 05:36 Total Bilirubin 1.8 H (0.2-1.0) mg/dl Direct Bilirubin 0.5 H (0-0.2) mg/dl AST 100 H (13-39) U/L ALT 70 H (7-52) U/L Alkaline Phosphatase 46 (34-104) U/L Albumin 3.3 L (3.4-5.0) gm/dl (1) Alcohol withdrawal Complication of substance-induced condition: uncomplicated Qualified Code(s): F10.930 - Alcohol use, unspecified with withdrawal, uncomplicated (2) Alcoholic cirrhosis of liver Ascites presence: unspecified Qualified Code(s): K70.30 - Alcoholic cirrhosis of liver without ascites
[2023-03-14] MEDS: ONDANSETRON INJ 2 MG/ML 2 ML VIAL IV PRN (18:02)
[2023-03-14] MEDS: nadoloL 40 MG TAB PO SCH (21:23)
[2023-03-14] MEDS: ZOLPIDEM TARTRATE 5 MG TAB PO PRN (21:24)
[2023-03-15] MEDS: chlordiazePOXIDE HCl 25 MG CAP PO SCH ×2 (03:33→11:37)
[2023-03-15 06:17] LABS: Hematocrit (blood only) 42.6 % (42.0-52.0); Hemoglobin 14.7 g/dl (14.0-18.0); Mean Corpuscular Hemoglobin 33.9 pg (25.0-34.0); Mean Corpuscular Hgb Conc 34.5 g/dL (32.0-36.0); Mean Corpuscular Volume 98.4 fL (80.0-100.0); Mean Platelet Volume 10.5 fL (9.4-12.4); Platelet Count 89 K/uL (130-400); RDW Coefficient of Variation 12.4 % (11.5-14.5); RDW Standard Deviation 44.5 fL (36.4-46.3); Red Blood Count 4.33 M/uL (4.70-6.10)
[2023-03-15 06:32] LABS: Albumin Globulin Ratio 1.1 (0.9-2); Albumin Level 3.5 gm/dl (3.4-5.0); BUN Creatinine Ratio 14.5 (10-20); Bilirubin,Total 1.8 mg/dl (0.2-1.0); Calcium 8.1 mg/dl (8.6-10.3); Creatinine Clr Calc Pharmacy 115.2 ml/min; Est GFR (African American) 119.7 ml/min; Est GFR (Non-African American) 103.3 ml/min; Globulin 3.2 gm/dl (2.5-4.0); Magnesium 1.5 mg/dl (1.7-2.4); Potassium 3.5 mmol/L (3.5-5.1); Total Protein 6.7 gm/dl (6.0-8.3)
[2023-03-15] MEDS: ACETAMINOPHEN 325 MG TAB PO PRN (07:45)
[2023-03-15] MEDS: busPIRone 5 MG TAB PO SCH ×2 (07:45→20:50)
[2023-03-15] MEDS: ursodioL 300 MG CAP PO SCH ×2 (07:46→20:49)
[2023-03-15] MEDS: PANTOprazole 40 MG TAB PO SCH (07:46)
[2023-03-15] MEDS: FUROSEMIDE 20 MG TAB PO SCH (07:46)
[2023-03-15] MEDS: POTASSIUM CHLORIDE 10 MEQ TABCR PO SCH (07:47)
[2023-03-15] MEDS: THIAMINE HCL 100 MG TAB PO SCH (07:47)
[2023-03-15] MEDS: FOLIC ACID 1 MG TAB PO SCH (07:48)
[2023-03-15] MEDS: SPIRONOLACTONE 25 MG TAB PO SCH (07:48)
[2023-03-15] MEDS: oxyCODONE HCL IR 5 MG TAB (IMMEDIATE RELEASE) PO PRN ×2 (11:37→19:42)
[2023-03-15] MEDS: MAGNESIUM SULFATE / D5W 1 GM/100 ML BAG IV SCH (11:38)
--- NOTE | 2023-03-15 17:25 | Hospitalist Progress Note ---
Date of Service March 15, 2023 Assessment & Plan (1) Alcohol withdrawal: Plan: Patient presenting from home with reports of symptoms of alcohol withdrawal. Longstanding history of alcohol abuse, had been sober for about 7 years however began drinking again 6 months ago with intermittent periods of brief sobriety. Recently admitted to [facility] 01/12 through 01/15 for alcohol withdrawal. Patient discharged on Librium which seemed to control cravings. Patient ran out of Librium about 1 week ago began drinking again. Reports he is drinking 5 ounces of whiskey per day Alcohol Withdrawal Monitor for withdrawal Continue Alcohol withdrawal protocol with Librium, Ativan PRN Continue Thiamine, Folic Acid Patient considering drug rehab placement [employer] to quit drinking Continue current management Right rib fracture--POA -Rib X ray:Acute minimally displaced anterolateral fracture of the right 10th rib. No pneumothorax. Healed chronic right 11th rib fracture. -Denies history of trauma Incentive spirometry (2) Alcoholic cirrhosis of liver: Plan: Chronic Follows with [facility] gastroenterology as outpatient (3) Ascites: (4) Esophageal varices: Plan: H/O Paracentesis several years ago H/O Esophageal varices s/p banding in 2018, EGD 2021 - no evidence of varices --ABD USD:No abdominal ascites is identified. Continue Lasix, spironolactone, nadolol (5) Hypokalemia: (6) Hypomagnesemia: Plan: Hypokalemia Hypomagnesemia Replace electrolytes and monitor (7) Transaminitis: Plan: T. bili 2.4, AST 161, ALT 101 Secondary to alcohol use LFTs trending down Avoid hepatotoxic agents as able (8) Thrombocytopenia: Plan: In the setting of Alcoholic cirrhosis Platelet count 80s Monitor CBC No acute bleeding issues DVT PX SCDs due to thrombocytopenia Admission and Anticipated Discharge Date Admission Date: March 13, 2023 Subjective Patient is seen and examined at bedside Reports headache, feels tired today Also reports right rib pain No other complaints Denies any chest pain, dyspnea, dizziness, nausea, vomiting Review of Systems Review of Systems: All systems reviewed & are unremarkable except as noted in Subjective Physical Exam Physical Exam: Physical Exam: Vitals signs as noted above General Appearance:Moderately built and nourished, no apparent distress Head: normocephalic, Atraumatic Eyes: normal inspection, EOMI Neck: supple, Trachea midline Respiratory/Chest: Normal breath sounds, CTA, No accessory muscle use,+ R chest tender Cardiovascular: S1, S2, No murmur Abdomen/GI:Soft, Non tender, Bowel sounds present Extremities/Musculoskeletal:normal inspection, no edema Neurologic/Psych:AAOX3, grossly no focal neurological deficits, +Tremor Skin: normal color, warm Results & Data Results & Data Vital Signs (Past 12 Hours) Vital Signs Temp Pulse Resp BP BP Pulse Ox O2 Del Method 03/15/23 15:30 36.7 C 73 18 95/71 L 93 Room Air 03/15/23 10:35 36.6 C 55 L 18 109/81 95 Room Air 03/15/23 07:19 36.5 C 70 18 125/79 95 Room Air Laboratory Results Short CBC 03/15/23 Range/Units 05:51 WBC 3.70 L (4.8-10.8) K/ul Hgb 14.7 (14.0-18.0) g/dl Hct 42.6 (42.0-52.0) % Plt Count 89 L (130-400) K/uL BMP 03/15/23 05:51 Sodium 137 Potassium 3.5 Chloride 105 Carbon Dioxide 23 BUN 12 Creatinine 0.83 Glucose 91 Calcium 8.1 L Liver Function 03/15/23 Range/Units 05:51 Total Bilirubin 1.8 H (0.2-1.0) mg/dl AST 69 H (13-39) U/L ALT 59 H (7-52) U/L Alkaline Phosphatase 47 (34-104) U/L Albumin 3.5 (3.4-5.0) gm/dl (1) Alcohol withdrawal Complication of substance-induced condition: uncomplicated Qualified Code(s): F10.930 - Alcohol use, unspecified with withdrawal, uncomplicated (2) Alcoholic cirrhosis of liver Ascites presence: unspecified Qualified Code(s): K70.30 - Alcoholic cirrhosis of liver without ascites
[2023-03-15] MEDS: ZOLPIDEM TARTRATE 5 MG TAB PO PRN (20:48)
[2023-03-15] MEDS: nadoloL 40 MG TAB PO SCH (20:50)
[2023-03-16] MEDS: oxyCODONE HCL IR 5 MG TAB (IMMEDIATE RELEASE) PO PRN ×4 (02:52→22:03)
[2023-03-16 06:36] LABS: Hematocrit (blood only) 43.5 % (42.0-52.0); Hemoglobin 14.9 g/dl (14.0-18.0); Mean Corpuscular Hemoglobin 34.2 pg (25.0-34.0); Mean Corpuscular Hgb Conc 34.3 g/dL (32.0-36.0); Mean Corpuscular Volume 99.8 fL (80.0-100.0); Mean Platelet Volume 10.1 fL (9.4-12.4); Platelet Count 88 K/uL (130-400); RDW Coefficient of Variation 12.3 % (11.5-14.5); RDW Standard Deviation 44.4 fL (36.4-46.3); Red Blood Count 4.36 M/uL (4.70-6.10); White Blood Count 4.35 K/ul (4.8-10.8)
[2023-03-16 06:53] LABS: Albumin Globulin Ratio 1.1 (0.9-2); Albumin Level 3.5 gm/dl (3.4-5.0); BUN Creatinine Ratio 13.2 (10-20); Bilirubin,Total 1.2 mg/dl (0.2-1.0); Calcium 8.4 mg/dl (8.6-10.3); Creatinine Clr Calc Pharmacy 124.9 ml/min; Est GFR (African American) 124.2 ml/min; Est GFR (Non-African American) 107.1 ml/min; Globulin 3.2 gm/dl (2.5-4.0); Magnesium 1.7 mg/dl (1.7-2.4); Potassium 3.4 mmol/L (3.5-5.1); Total Protein 6.7 gm/dl (6.0-8.3)
[2023-03-16] MEDS ORDERED: POTASSIUM CHLORIDE CRTAB 20 MEQ TABCR PO ONE (09:36)
[2023-03-16] MEDS: MAGNESIUM SULFATE / D5W 1 GM/100 ML BAG IV SCH (10:00)
[2023-03-16] MEDS: POTASSIUM CHLORIDE 10 MEQ TABCR PO SCH (10:02)
[2023-03-16] MEDS: busPIRone 5 MG TAB PO SCH ×2 (10:02→21:46)
[2023-03-16] MEDS: ursodioL 300 MG CAP PO SCH ×2 (10:02→21:45)
[2023-03-16] MEDS: PANTOprazole 40 MG TAB PO SCH (10:03)
[2023-03-16] MEDS: FUROSEMIDE 20 MG TAB PO SCH (10:03)
[2023-03-16] MEDS: THIAMINE HCL 100 MG TAB PO SCH (10:04)
[2023-03-16] MEDS: SPIRONOLACTONE 25 MG TAB PO SCH (10:04)
[2023-03-16] MEDS: FOLIC ACID 1 MG TAB PO SCH (10:04)
[2023-03-16] MEDS: MAGNESIUM OXIDE 400 MG TAB PO SCH (10:05)
[2023-03-16] MEDS ORDERED: nadoloL 40 MG TAB PO ONE (10:54)
[2023-03-16] MEDS: ONDANSETRON INJ 2 MG/ML 2 ML VIAL IV PRN (14:50)
--- NOTE | 2023-03-16 15:20 | Hospitalist Progress Note ---
Date of Service March 16, 2023 Assessment & Plan (1) Alcohol withdrawal: Plan: Patient presenting from home with reports of symptoms of alcohol withdrawal. Longstanding history of alcohol abuse, had been sober for about 7 years however began drinking again 6 months ago with intermittent periods of brief sobriety. Recently admitted to [facility] 01/12 through 01/15 for alcohol withdrawal. Patient discharged on Librium which seemed to control cravings. Patient ran out of Librium about 1 week ago began drinking again. 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 No pneumothorax. Healed chronic right 11th rib fracture. -Denies history of trauma Incentive spirometry (2) Alcoholic cirrhosis of liver: Plan: Chronic Follows with [facility] gastroenterology as outpatient (3) Ascites: (4) Esophageal varices: Plan: H/O Paracentesis several years ago H/O Esophageal varices s/p banding in 2018, EGD 2021 - no evidence of varices --ABD USD:No abdominal ascites is identified. Continue Lasix, spironolactone, nadolol (5) Hypokalemia: (6) Hypomagnesemia: Plan: Hypokalemia Hypomagnesemia Replace electrolytes and monitor (7) Transaminitis: Plan: T. bili 2.4, AST 161, ALT 101 Secondary to alcohol use LFTs trending down Avoid hepatotoxic agents as able (8) Thrombocytopenia: Plan: In the setting of Alcoholic cirrhosis Platelet count 80s Monitor CBC No acute bleeding issues DVT PX SCDs due to thrombocytopenia Admission and Anticipated Discharge Date Admission Date: March 13, 2023 Subjective Patient is seen and examined at bedside Right rib pain at site of fracture is controlled No new complaints Denies any headache today No significant alcohol withdrawal symptoms today Denies any chest pain, dyspnea, dizziness, nausea, vomiting Review of Systems Review of Systems: All systems reviewed & are unremarkable except as noted in Subjective Physical Exam Physical Exam: Physical Exam: Vitals signs as noted above General Appearance:Moderately built and nourished, no apparent distress Head: normocephalic, Atraumatic Eyes: normal inspection, EOMI Neck: supple, Trachea midline Respiratory/Chest: Normal breath sounds, CTA, No accessory muscle use,+ R chest tender Cardiovascular: S1, S2, No murmur Abdomen/GI:Soft, Non tender, Bowel sounds present Extremities/Musculoskeletal:normal inspection, no edema Neurologic/Psych:AAOX3, grossly no focal neurological deficits, +Tremor Skin: normal color, warm Results & Data Results & Data Vital Signs (Past 12 Hours) Vital Signs Temp Pulse Resp BP Pulse Ox O2 Del Method 03/16/23 11:20 36.5 C 59 L 18 115/80 95 Room Air 03/16/23 07:19 36.8 C 69 17 105/69 95 Room Air Laboratory Results Short CBC 03/16/23 Range/Units 06:05 WBC 4.35 L (4.8-10.8) K/ul Hgb 14.9 (14.0-18.0) g/dl Hct 43.5 (42.0-52.0) % Plt Count 88 L (130-400) K/uL BMP 03/16/23 06:05 Sodium 136 Potassium 3.4 L Chloride 103 Carbon Dioxide 25 BUN 10 Creatinine 0.76 Glucose 89 Calcium 8.4 L Liver Function 03/16/23 Range/Units 06:05 Total Bilirubin 1.2 H (0.2-1.0) mg/dl AST 53 H (13-39) U/L ALT 48 (7-52) U/L Alkaline Phosphatase 50 (34-104) U/L Albumin 3.5 (3.4-5.0) gm/dl (1) Alcohol withdrawal Complication of substance-induced condition: uncomplicated Qualified Code(s): F10.930 - Alcohol use, unspecified with withdrawal, uncomplicated (2) Alcoholic cirrhosis of liver Ascites presence: unspecified Qualified Code(s): K70.30 - Alcoholic cirrhosis of liver without ascites
[2023-03-16] MEDS ORDERED: COUGH DROP (SUGAR FREE) LOZ 24 LOZ/1 BOX BUCCAL PRN (19:07)
[2023-03-16] MEDS: nadoloL 40 MG TAB PO SCH (21:44)
[2023-03-16] MEDS: chlordiazePOXIDE HCl 5 MG CAP PO SCH (21:45)
[2023-03-16] MEDS: ZOLPIDEM TARTRATE 5 MG TAB PO PRN (21:48)
[2023-03-17] MEDS: oxyCODONE HCL IR 5 MG TAB (IMMEDIATE RELEASE) PO PRN ×3 (05:46→18:27)
[2023-03-17 07:05] LABS: BUN Creatinine Ratio 10.6 (10-20); Calcium 8.5 mg/dl (8.6-10.3); Creatinine Clr Calc Pharmacy 101.2 ml/min; Est GFR (African American) 109.9 ml/min; Est GFR (Non-African American) 94.8 ml/min; Magnesium 1.7 mg/dl (1.7-2.4); Potassium 3.8 mmol/L (3.5-5.1)
[2023-03-17] MEDS: chlordiazePOXIDE HCl 5 MG CAP PO SCH (09:25)
[2023-03-17] MEDS: busPIRone 5 MG TAB PO SCH ×2 (09:26→21:12)
[2023-03-17] MEDS: MAGNESIUM OXIDE 400 MG TAB PO SCH (09:26)
[2023-03-17] MEDS: FOLIC ACID 1 MG TAB PO SCH (09:26)
[2023-03-17] MEDS: ursodioL 300 MG CAP PO SCH ×2 (09:26→21:13)
[2023-03-17] MEDS: FUROSEMIDE 20 MG TAB PO SCH (09:26)
[2023-03-17] MEDS: THIAMINE HCL 100 MG TAB PO SCH (09:26)
[2023-03-17] MEDS: SPIRONOLACTONE 25 MG TAB PO SCH (09:26)
[2023-03-17] MEDS: PANTOprazole 40 MG TAB PO SCH (09:26)
[2023-03-17] MEDS: POTASSIUM CHLORIDE 10 MEQ TABCR PO SCH (09:27)
--- NOTE | 2023-03-17 15:51 | Hospitalist Progress Note ---
Date of Service March 17, 2023 Assessment & Plan (1) Alcohol withdrawal: Plan: Patient presenting from home with reports of symptoms of alcohol withdrawal. Longstanding history of alcohol abuse, had been sober for about 7 years however began drinking again 6 months ago with intermittent periods of brief sobriety. Recently admitted to [facility] 01/12 through 01/15 for alcohol withdrawal. Patient discharged on Librium which seemed to control cravings. Patient ran out of Librium about 1 week ago began drinking again. Reports he is drinking 5 ounces of whiskey per day Alcohol Withdrawal Monitor for withdrawal Completed Librium protocol Ativan PRN Continue Thiamine, Folic Acid Patient considering drug rehab placement [employer] to quit drinking No significant alcohol withdrawal symptoms currently Patient prefers to follow-up with rehab facility as outpatient Likely discharge in 1 to 2 days Right rib fracture--POA -Rib X ray:Acute minimally displaced anterolateral fracture of the right 10th rib. No pneumothorax. Healed chronic right 11th rib fracture. -Denies history of trauma Incentive spirometry Leukopenia Thrombocytopenia Likely due to alcohol use No bleeding issues currently Monitor (2) Alcoholic cirrhosis of liver: Plan: Chronic Follows with [facility] gastroenterology as outpatient (3) Ascites: (4) Esophageal varices: Plan: H/O Paracentesis several years ago H/O Esophageal varices s/p banding in 2018, EGD 2021 - no evidence of varices --ABD USD:No abdominal ascites is identified. Continue Lasix, spironolactone, nadolol (5) Hypokalemia: (6) Hypomagnesemia: Plan: Hypokalemia Hypomagnesemia Replace electrolytes and monitor (7) Transaminitis: Plan: T. bili 2.4, AST 161, ALT 101 Secondary to alcohol use LFTs trending down Avoid hepatotoxic agents as able (8) Thrombocytopenia: Plan: In the setting of Alcoholic cirrhosis Platelet count 80s Monitor CBC No acute bleeding issues DVT PX SCDs due to thrombocytopenia Admission and Anticipated Discharge Date Admission Date: March 13, 2023 Subjective Patient is seen and examined at bedside Right rib pain at site of fracture is controlled No new complaints Denies any headache today No significant alcohol withdrawal symptoms today Denies any chest pain, dyspnea, dizziness, nausea, vomiting Review of Systems Review of Systems: All systems reviewed & are unremarkable except as noted in Subjective Physical Exam Physical Exam: Physical Exam: Vitals signs as noted above General Appearance:Moderately built and nourished, no apparent distress Head: normocephalic, Atraumatic Eyes: normal inspection, EOMI Neck: supple, Trachea midline Respiratory/Chest: Normal breath sounds, CTA, No accessory muscle use,+ R chest tender Cardiovascular: S1, S2, No murmur Abdomen/GI:Soft, Non tender, Bowel sounds present Extremities/Musculoskeletal:normal inspection, no edema Neurologic/Psych:AAOX3, grossly no focal neurological deficits, +Tremor Skin: normal color, warm Results & Data Results & Data Vital Signs (Past 12 Hours) Vital Signs Temp Pulse Resp BP BP Pulse Ox O2 Del Method 03/17/23 15:19 37.1 C 71 18 105/78 94 Room Air 03/17/23 10:42 36.7 C 63 18 114/73 94 Room Air 03/17/23 07:28 36.8 C 59 L 18 113/85 96 Room Air 03/17/23 04:27 36.8 C 57 L 22 115/73 93 Room Air Laboratory Results [facility] 03/17/23 05:38 Sodium 138 Potassium 3.8 Chloride 103 Carbon Dioxide 28 BUN 10 Creatinine 0.94 Glucose 83 Calcium 8.5 L (1) Alcohol withdrawal Complication of substance-induced condition: uncomplicated Qualified Code(s): F10.930 - Alcohol use, unspecified with withdrawal, uncomplicated (2) Alcoholic cirrhosis of liver Ascites presence: unspecified Qualified Code(s): K70.30 - Alcoholic cirrhosis of liver without ascites
[2023-03-17] MEDS: ZOLPIDEM TARTRATE 5 MG TAB PO PRN (21:11)
[2023-03-17] MEDS: nadoloL 40 MG TAB PO SCH (21:12)
[2023-03-18] MEDS: oxyCODONE HCL IR 5 MG TAB (IMMEDIATE RELEASE) PO PRN (03:10)
[2023-03-18 06:32] LABS: Hematocrit (blood only) 47.1 % (42.0-52.0); Hemoglobin 16.7 g/dl (14.0-18.0); Mean Corpuscular Hemoglobin 35.2 pg (25.0-34.0); Mean Corpuscular Hgb Conc 35.5 g/dL (32.0-36.0); Mean Corpuscular Volume 99.4 fL (80.0-100.0); Platelet Count 124 K/uL (130-400); RDW Coefficient of Variation 12.3 % (11.5-14.5); RDW Standard Deviation 44.6 fL (36.4-46.3); Red Blood Count 4.74 M/uL (4.70-6.10); White Blood Count 5.93 K/ul (4.8-10.8)
[2023-03-18 07:09] LABS: Anion Gap 7 (3-11); BUN Creatinine Ratio 12.9 (10-20); Blood Urea Nitrogen 11 mg/dl (6-23); Calcium 8.8 mg/dl (8.6-10.3); Carbon Dioxide 29 mmol/L (21-32); Chloride 100 mmol/L (98-107); Creatinine Clr Calc Pharmacy 111.3 ml/min; Est GFR (African American) 118.6 ml/min; Est GFR (Non-African American) 102.3 ml/min; Glucose 79 mg/dl (70-99(Fasting)); Sodium 136 mmol/L (136-145)
[2023-03-18] MEDS: PANTOprazole 40 MG TAB PO SCH (08:30)
[2023-03-18] MEDS: FOLIC ACID 1 MG TAB PO SCH (08:30)
[2023-03-18] MEDS: POTASSIUM CHLORIDE 10 MEQ TABCR PO SCH (08:31)
[2023-03-18] MEDS: ursodioL 300 MG CAP PO SCH (08:31)
[2023-03-18] MEDS: busPIRone 5 MG TAB PO SCH (08:31)
[2023-03-18] MEDS: THIAMINE HCL 100 MG TAB PO SCH (08:31)
[2023-03-18] MEDS: MAGNESIUM OXIDE 400 MG TAB PO SCH (08:32)
[2023-03-18] MEDS: SPIRONOLACTONE 25 MG TAB PO SCH (08:32)
[2023-03-18] MEDS: FUROSEMIDE 20 MG TAB PO SCH (08:32)
--- NOTE | 2023-03-18 12:59 | Hospitalist Progress Note ---
Date of Service March 18, 2023 Assessment & Plan (1) Alcohol withdrawal: Plan: Patient presenting from home with reports of symptoms of alcohol withdrawal. Longstanding history of alcohol abuse, had been sober for about 7 years however began drinking again 6 months ago with intermittent periods of brief sobriety. Recently admitted to [facility] 01/12 through 01/15 for alcohol withdrawal. Patient discharged on Librium which seemed to control cravings. Patient ran out of Librium about 1 week ago began drinking again. 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 No pneumothorax. Healed chronic right 11th rib fracture. -Denies history of trauma Incentive spirometry Leukopenia Thrombocytopenia Likely due to alcohol use No bleeding issues currently WBC count normalized Platelet count improving Monitor (2) Alcoholic cirrhosis of liver: Plan: Chronic Follows with [facility] gastroenterology as outpatient (3) Ascites: (4) Esophageal varices: Plan: H/O Paracentesis several years ago H/O Esophageal varices s/p banding in 2018, EGD 2021 - no evidence of varices --ABD USD:No abdominal ascites is identified. Continue Lasix, spironolactone, nadolol (5) Hypokalemia: (6) Hypomagnesemia: Plan: Hypokalemia Hypomagnesemia Replace electrolytes and monitor (7) Transaminitis: Plan: T. bili 2.4, AST 161, ALT 101 Secondary to alcohol use LFTs trended down Avoid hepatotoxic agents as able (8) Thrombocytopenia: Plan: In the setting of Alcoholic cirrhosis Platelet count 80s Monitor CBC No acute bleeding issues DVT PX SCDs due to thrombocytopenia Admission and Anticipated Discharge Date Admission Date: March 13, 2023 Subjective Patient is seen and examined at bedside No new complaints Minimal right rib pain No alcohol withdrawal symptoms Denies any chest pain, dyspnea, dizziness, nausea, vomiting Plan to be discarded home today Review of Systems Review of Systems: All systems reviewed & are unremarkable except as noted in Subjective Physical Exam Physical Exam: Physical Exam: Vitals signs as noted above General Appearance:Moderately built and nourished, no apparent distress Head: normocephalic, Atraumatic Eyes: normal inspection, EOMI Neck: supple, Trachea midline Respiratory/Chest: Normal breath sounds, CTA, No accessory muscle use,+ R chest tender Cardiovascular: S1, S2, No murmur Abdomen/GI:Soft, Non tender, Bowel sounds present Extremities/Musculoskeletal:normal inspection, no edema Neurologic/Psych:AAOX3, grossly no focal neurological deficits Skin: normal color, warm Results & Data Results & Data Vital Signs (Past 12 Hours) Vital Signs Temp Pulse Resp BP BP Pulse Ox O2 Del Method 03/18/23 10:58 36.6 C 55 L 18 102/66 95 Room Air 03/18/23 07:56 36.7 C 66 18 134/91 96 Room Air 03/18/23 03:14 36.7 C 63 19 119/80 95 Room Air Laboratory Results Short CBC 03/18/23 Range/Units 05:40 WBC 5.93 (4.8-10.8) K/ul Hgb 16.7 (14.0-18.0) g/dl Hct 47.1 (42.0-52.0) % Plt Count 124 L (130-400) K/uL BMP 03/18/23 03/18/23 05:40 07:15 Sodium 136 Potassium TNP 4.1 Chloride 100 Carbon Dioxide 29 BUN 11 Creatinine 0.85 Glucose 79 Calcium 8.8 (1) Alcohol withdrawal Complication of substance-induced condition: uncomplicated Qualified Code(s): F10.930 - Alcohol use, unspecified with withdrawal, uncomplicated (2) Alcoholic cirrhosis of liver Ascites presence: unspecified Qualified Code(s): K70.30 - Alcoholic cirrhosis of liver without ascites
--- NOTE | 2023-03-18 13:07 | Discharge Summary ---
Date of Service March 18, 2023 Admission HPI Per Admitting Provider 47-year-old male with PMH alcohol abuse, alcoholic cirrhosis with esophageal varices s/p banding and ascites, chronic cholecystitis, and other problems to below who presents to the ED for evaluation of alcohol withdrawal. History is obtained from the patient and review of outpatient PCP and GI records. Patient with a longstanding history of alcohol abuse, had been sober for about 7 years however started drinking again about 6 months ago and has had intermittent brief periods of sobriety. Most recently admitted to [facility] 01/12 through 01/15 for alcohol withdrawal. Patient discharged on Librium. Followed up with PCP who provided additional Librium. Patient states this helped his cravings however he ran out about 1 week ago and started drinking again. Reports he is drinking about 5 ounces of whiskey per day. Last drink was last evening. This morning, patient reports he was very tremulous, nauseous, diaphoretic, nauseous, short of breath. He denies chest pain. No lightheadedness, dizziness, syncopal events. Reports worsening abdominal distention. No abdominal pain, vomiting, diarrhea. Denies bright red bleeding per rectum and dark tarry stools. No other recent illnesses, fevers, chills. No urinary symptoms. In the ED, labs show K+ 3.3, Mg +1.4, transaminitis with T. bili 2.4, AST 161, ALT 101, alk phos 61. Patient was given Librium, Valium, magnesium replacement, banana bag. Admission Exam Per Admitting Provider Physical Exam Constitutional: WD/WN, vitals as above no acute distress Eyes: PERRL, conjunctivae normal, anicteric sclerae ENMT: external ear and nose normal, oropharynx normal Respiratory: normal respiratory effort, lungs clear to auscultation Cardiovascular: Rate/Rhythm: regular rate and regular rhythm Vessels: normal peripheral pulses Extremities: no edema Gastrointestinal (Abdomen): Inspection/Auscultation: + abdomen distended Percussion/Palpation: abdomen soft; abdomen nontender Musculoskeletal: no cyanosis or clubbing, extremities motor strength 5/5 Skin: no rashes, warm and dry Neurologic: PERRL, EOMI, accommodation nl, no face palsy, no dysarthria Motor/Sensory: + tremor Psychiatric: Orientation: alert and oriented x 3 Affect: + depressed affect Principal Diagnosis Alcohol Withdrawal Right rib fracture Hypokalemia Hypomagnesemia Discharge Data Allergies Allergy/AdvReac Type Severity Reaction Status Date / Time aspirin AdvReac Unknown THINS Verified 01/12/23 19:56 BLOOD, NOSE BLEEDS Consultations 03/13/23 12:19 ED Decision to Admit Stat Procedures Performed Laboratory Results WBC 5.93 K/ul (4.8-10.8) 03/18/23 05:40 RBC 4.74 M/uL (4.70-6.10) 03/18/23 05:40 Hgb 16.7 g/dl (14.0-18.0) 03/18/23 05:40 Hct 47.1 % (42.0-52.0) 03/18/23 05:40 MCV 99.4 fL (80.0-100.0) 03/18/23 05:40 MCH 35.2 pg (25.0-34.0) H 03/18/23 05:40 MCHC 35.5 g/dL (32.0-36.0) 03/18/23 05:40 RDW Std Deviation 44.6 fL (36.4-46.3) 03/18/23 05:40 RDW Coeff of Hang 12.3 % (11.5-14.5) 03/18/23 05:40 Plt Count 124 K/uL (130-400) L 03/18/23 05:40 MPV 10.0 fL (9.4-12.4) 03/18/23 05:40 Immature Gran % (Auto) 0.2 % 03/13/23 11:18 Neut % (Auto) 60.9 % 03/13/23 11:18 Lymph % (Auto) 22.4 % 03/13/23 11:18 Phelps % (Auto) 12.2 % 03/13/23 11:18 Eos % (Auto) 3.1 % 03/13/23 11:18 Baso % (Auto) 1.2 % 03/13/23 11:18 Neut # (Auto) 2.59 K/uL (1.40-6.50) 03/13/23 11:18 Lymph # (Auto) 0.95 K/uL (1.20-3.40) L 03/13/23 11:18 Phelps # (Auto) 0.52 K/uL (0.11-0.59) 03/13/23 11:18 Eos # (Auto) 0.13 K/uL (0.00-0.50) 03/13/23 11:18 Baso # (Auto) 0.05 K/uL (0.00-0.20) 03/13/23 11:18 Immature Gran # (Auto) 0.01 K/uL (0.01-0.20) 03/13/23 11:18 PT 12.5 Seconds (9.0-12.0) H 03/13/23 11:18 INR 1.2 (0.9-1.1) H 03/13/23 11:18 APTT 29 Seconds (21-31) 03/13/23 11:18 PTT Ratio 1.0 03/13/23 11:18 Sodium 136 mmol/L (136-145) 03/18/23 05:40 Potassium 4.1 mmol/L (3.5-5.1) 03/18/23 07:15 Chloride 100 mmol/L (98-107) 03/18/23 05:40 Carbon Dioxide 29 mmol/L (21-32) 03/18/23 05:40 Anion Gap 7 (3-11) 03/18/23 05:40 BUN 11 mg/dl (6-23) 03/18/23 05:40 Creatinine 0.85 mg/dl (0.6-1.4) 03/18/23 05:40 Est Cr Clr Drug Dosing 111.3 ml/min 03/18/23 05:40 Est GFR ( Amer) 118.6 ml/min 03/18/23 05:40 Est GFR (Non-Af Amer) 102.3 ml/min 03/18/23 05:40 BUN/Creatinine Ratio 12.9 (10-20) 03/18/23 05:40 Glucose 79 mg/dl (70-99(Fasting)) 03/18/23 05:40 Calcium 8.8 mg/dl (8.6-10.3) 03/18/23 05:40 Phosphorus 3.3 mg/dl (2.5-4.9) 03/13/23 11:18 Magnesium 1.7 mg/dl (1.7-2.4) 03/17/23 05:38 Total Bilirubin 1.2 mg/dl (0.2-1.0) H 03/16/23 06:05 Direct Bilirubin 0.5 mg/dl (0-0.2) H 03/14/23 05:36 AST 53 U/L (13-39) H 03/16/23 06:05 ALT 48 U/L (7-52) 03/16/23 06:05 Alkaline Phosphatase 50 U/L (34-104) 03/16/23 06:05 Total Protein 6.7 gm/dl (6.0-8.3) 03/16/23 06:05 Albumin 3.5 gm/dl (3.4-5.0) 03/16/23 06:05 Globulin 3.2 gm/dl (2.5-4.0) 03/16/23 06:05 Albumin/Globulin Ratio 1.1 (0.9-2) 03/16/23 06:05 Vitamin B12 517 pg/ml (180-914) 03/13/23 11:18 Impressions Abdomen Ultrasound 03/13/23 13:12 ULTRASOUND ASCITES CHECK CLINICAL HISTORY: Alcohol withdrawal. Clinical concern for abdominal ascites. FINDINGS: Real-time grayscale sonography of all 4 quadrants of the abdomen is performed to assess for abdominal ascites. No abdominal ascites is seen. The spleen is enlarged measuring 15.6 cm in length. Hepatic echotexture is increased indicating steatosis. IMPRESSION: No abdominal ascites is identified. Electronically signed by: Darrin Tran M.D. 03/13/2023 2:11 PM Ribs w/Chest X-Ray 03/14/23 10:40 XR ribs RT min 2V w [id number] HISTORY: 47 years-old Male Rib pain acute right-sided rib pain status post trauma COMPARISON: Chest radiograph 01/12/2023 TECHNIQUE: PA view of the chest with 5 views of the right ribs FINDINGS: Cardiomediastinal and hilar silhouettes are within normal limits. No pneumothorax, pleural effusion or overt pulmonary edema. There is unchanged mild right hemidiaphragmatic elevation. Mild cortical irregularity of the anterolateral right 10th rib with 2 mm displacement. Healed chronic fracture of the right posterior 11th rib. IMPRESSION: 1. Acute minimally displaced anterolateral fracture of the right 10th rib. 2. No pneumothorax. 3. Healed chronic right 11th rib fracture. ACT 112: Negative or not required by law. The above report was generated using voice recognition software. It may contain grammatical, syntax or spelling errors. Electronically signed by: Jhonny Fletcher M.D. 03/14/2023 12:51 PM Ordered Studies 03/13/23 13:12 US abdomen ltd ascites Routine Hospital Course (1) Alcohol withdrawal: Patient presenting from home with reports of symptoms of alcohol withdrawal. Longstanding history of alcohol abuse, had been sober for about 7 years however began drinking again 6 months ago with intermittent periods of brief sobriety. Recently admitted to [facility] 01/12 through 01/15 for alcohol withdrawal. Patient discharged on Librium which seemed to control cravings. Patient ran out of Tana rium about 1 week ago began drinking again. Reports he is drinking 5 ounces of whiskey per day Alcohol Withdrawal Monitor for withdrawal Completed Librium protocol Ativan PRN Continue Thiamine, Folic Acid Patient considering drug rehab placement [facility] to quit drinking No significant alcohol withdrawal symptoms currently Patient prefers to follow-up with rehab facility as outpatient Plan to discharge home today Right rib fracture--POA -Rib X ray:Acute minimally displaced anterolateral fracture of the right 10th rib. No pneumothorax. Healed chronic right 11th rib fracture. -Denies history of trauma Incentive spirometry Leukopenia Thrombocytopenia Likely due to alcohol use No bleeding issues currently WBC count normalized Platelet count improving Monitor (2) Alcoholic cirrhosis of liver: Chronic Follows with [facility] gastroenterology as outpatient (3) Ascites: (4) Esophageal varices: H/O Paracentesis several years ago H/O Esophageal varices s/p banding in 2018, EGD 2021 - no evidence of varices --ABD USD:No abdominal ascites is identified. Continue Lasix, spironolactone, nadolol (5) Hypokalemia: (6) Hypomagnesemia: Hypokalemia Hypomagnesemia Replace electrolytes and monitor (7) Transaminitis: T. bili 2.4, AST 161, ALT 101 Secondary to alcohol use LFTs trended down Avoid hepatotoxic agents as able (8) Thrombocytopenia: In the setting of Alcoholic cirrhosis Platelet count 80s Monitor CBC No acute bleeding issues DVT PX SCDs due to thrombocytopenia Total Time Total Time Spent Total Time Spent (In Minutes): 65 minutes Discharge Plan Discharge Items Patient Disposition: Home - Self-Care Reason For Visit: ETOH WITHDRAWAL Discharge Diagnosis: Alcohol Withdrawal Right rib fracture Hypokalemia Hypomagnesemia Activity: Per Instructions section Exercise/Sports: Gradually increase as tolerated Non-emergency contact: Primary Care Provider Call non-emergency contact if: you have any medication questions, your symptoms worsen, your pain is concerning for you and you have a fever Follow-up/Referrals: Michelle Borrego, DO [Primary Care Provider] - (Date & Time 03/25/2023 8:00 AM Provider Cheryl Purvis PA-C Department Family Medicine [facility] ) Diet: Heart Healthy Addtl Attending Provider Instructions: Follow-up with your primary care physician on 03/25/2023 8:00 AM -- Quit drinking alcohol and smoking marijuana as advised. Seek immediate medical attention if your symptoms reoccur or worsen Please take all medications as instructed on discharge list below. Please call if you have any questions or problems. You can reach a [facility] hospitalist on duty at [facility] 24 hours a day by calling [phone] Pending Studies at Discharge: No Stand-Alone Forms: [facility], Work/School Release, Smoking Cessation Medications and DC Order Prescriptions: New thiamine HCl (vitamin B1) 100 mg Tablet 100 mg PO QAM Qty: 30 0RF magnesium oxide 400 mg (241.3 mg magnesium) Tablet 400 mg PO QAM Qty: 30 0RF Continued buspirone 5 mg Tablet 5 mg PO BID potassium chloride 10 mEq Tablet Extended Release 10 meq PO QAM nadolol 20 mg Tablet 20 mg PO HS ursodiol 300 mg Capsule 300 mg PO BID zolpidem [Ambien] 5 mg Tablet 5 mg PO HS PRN (Reason: Sleep) pantoprazole 20 mg tablet,delayed release (DR/EC) 20 mg PO QAM spironolactone 25 mg tablet 25 mg PO QAM furosemide 20 mg tablet 20 mg PO QAM folic acid 1 mg Tablet 1 mg PO QAM Qty: 30 0RF Discharge Orders: Discharge Order (Routine); Ordered 03/18/23 Ordered By: Carlin Bess Admission Data Admit Date/Time: 03/13/23 12:39 Attending Provider: Carlin Bess Admit Provider: Kiara De La Garza Primary Care Provider: Michelle Borrego Other Providers: Kiara De La Garza
== END 2023-03-18 14:09 | disposition home or self-care (01) | DRG 897 ==
LOC: ED 10:55 → 2E 12:39 → SUATTDRO 12:39 → 2E 16:07

== ENCOUNTER 2023-04-09 17:08 | Inpatient (IN) ==
--- NOTE | 2023-04-09 17:15 | ED Triage Note ---
Date of Service April 09, 2023 Provider in Triage Author: Brandy Cardenas History of Present Illness This patient was briefly evaluated while in triage. An abbreviated physical exam was performed. 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 Abdomen distended, diffusely TTP. Initial orders for labs and / or imaging were placed and patient was placed in the waiting area until a bed is available. Please see further documentation for the full ED course.
[2023-04-09 18:57] LABS: Basophils # (auto) 0.04 K/uL (0.00-0.20); Basophils % (auto) 0.6 %; Eosinophils # (auto) 0.07 K/uL (0.00-0.50); Hemoglobin 16.3 g/dl (14.0-18.0); Immature Granulocytes # (auto) 0.03 K/uL (0.01-0.20); Immature Granulocytes % (auto) 0.4 %; Lymphocytes # (auto) 0.52 K/uL (1.20-3.40); Lymphocytes % (auto) 7.6 %; Mean Corpuscular Hemoglobin 33.3 pg (25.0-34.0); Mean Corpuscular Hgb Conc 34.7 g/dL (32.0-36.0); Mean Corpuscular Volume 95.9 fL (80.0-100.0); Mean Platelet Volume 10.7 fL (9.4-12.4); Monocytes # (auto) 0.43 K/uL (0.11-0.59); Monocytes % (auto) 6.3 %; Neutrophils # (auto) 5.74 K/uL (1.40-6.50); Neutrophils % (auto) 84.1 %; Platelet Count 86 K/uL (130-400); RDW Coefficient of Variation 12.2 % (11.5-14.5); RDW Standard Deviation 42.9 fL (36.4-46.3); White Blood Count 6.83 K/ul (4.8-10.8)
[2023-04-09 19:07] LABS: Alanine Aminotransferase 226 U/L (7-52); Albumin Globulin Ratio 0.9 (0.9-2); Alkaline Phosphatase 95 U/L (34-104); Anion Gap 14 (3-11); Aspartate Aminotransferase 265 U/L (13-39); BUN Creatinine Ratio 10.2 (10-20); Bilirubin,Total 7.9 mg/dl (0.2-1.0); Blood Urea Nitrogen 9 mg/dl (6-23); Calcium 8.6 mg/dl (8.6-10.3); Carbon Dioxide 24 mmol/L (21-32); Chloride 97 mmol/L (98-107); Est GFR (African American) 116.9 ml/min; Est GFR (Non-African American) 100.9 ml/min; Globulin 4.5 gm/dl (2.5-4.0); Glucose 170 mg/dl (70-99(Fasting)); Lipase 51 U/L (11-82); Potassium 3.3 mmol/L (3.5-5.1); Sodium 135 mmol/L (136-145); Total Protein 8.5 gm/dl (6.0-8.3)
[2023-04-09 19:13] LABS: Troponin I High Sensitivity 8.1 pg/ml (0-20)
[2023-04-09] MEDS ORDERED: MULTI-VITAMIN INFUSION 10 ML, THIAMINE HCL 100 MG, FOLIC ACID 1 MG in SODIUM CHLORIDE 0... IV ONE (19:16)
[2023-04-09] MEDS ORDERED: PANTOprazole 40 MG in SYRINGE 0 ML IV ONE (19:16)
[2023-04-09] MEDS ORDERED: FAMOTIDINE 20MG IV PUSH 20 MG/5 ML SYR IV STA (19:16)
[2023-04-09] MEDS ORDERED: ONDANSETRON INJ 2 MG/ML 2 ML VIAL IV STA (19:16)
--- NOTE | 2023-04-09 19:19 | Emergency Department Note ---
Impression & Plan Acute liver failure, Vomiting, Acute dehydration, Alcohol abuse, Hypokalemia, Hypomagnesemia, Thrombocytopenia ED Provider Note NAME: ANDREA ADAME AGE: 47 SEX: M : 1975 ARRIVES VIA: Walk-In INFORMANT: [Patient] ED PROVIDER(S): [Darrin Gray MD] CHIEF COMPLAINT: Vomiting HISTORY OF PRESENT ILLNESS: The patient is a 47-year-old with a history of alcoholism. He states that for 4 days, he has been vomiting and cannot really have anything to eat or drink. Even alcohol is not tolerated. Patient has noticed some epigastric burning. He has had a bit of diarrhea. For 24 hours, he noticed some increasing shortness of breath. No cough, no chest congestion but he thinks he may have had a fever. Because of the persistent vomiting, because of the abdominal burning and now the shortness of breath, he presents for evaluation. PMHx/PSHx/Social Hx: See Below PHYSICAL EXAM: GENERAL: Patient is in no acute distress. HEENT: No acute trauma, normocephalic atraumatic, mucous membranes moist, no nasal congestion. There is some subtle scleral icterus. NECK: No stridor, no adenopathy, no meningismus, trachea is midline. LUNGS: Clear to auscultation bilaterally, no wheeze, no rhonchi, breath sounds equal. HEART: Mildly tachycardic, regular rhythm, no murmurs. ABDOMEN: Soft, mildly diffusely tender, some mild abdominal distention noted. EXTREMITIES: No cyanosis, full range of motion of all the joints without pain or difficulty. NEUROLOGIC: Oriented x 3, no acute motor or sensory deficits, no focal weakness. SKIN: Mild jaundice, no diaphoresis. DIFFERENTIAL DIAGNOSIS: Liver or renal failure, dehydration, bowel obstruction, gastritis or ulcer, electrolyte imbalance, viral illness, among others. EMERGENCY DEPARTMENT PROCEDURES: MEDICAL DECISION MAKING: There is no leukocytosis or concerning anemia. Platelet count is low, likely from his liver disease. Sodium and potassium were both slightly low. Magnesium was quite low at 1.3. There were elevated liver enzymes, the bilirubin was close to 8. Ammonia level was not elevated. There were no findings of pancreatitis. Alcohol level was high at 193, consistent with his history of alcohol abuse. COVID, influenza and RSV test were negative. Chest film does not show mediastinal widening, pneumonia or pneumothorax. Abdominal and pelvis CT did not show any acute surgical pathology. No bowel obstruction. The patient received IV Protonix, IV Pepcid, IV Zofran. He was given IV morphine as needed for pain. He received a liter of IV saline with multivitamins, thiamine and folate. He received IV magnesium. The patient presents with vomiting, epigastric pain and jaundice. He was found to be in liver failure. He does have some electrolyte abnormalities that require correction. Given his presentation and findings, hospitalization is indicated. I spoke with the patient and case management, the on-call hospitalist was consulted. Prior/Outside records/notes reviewed: Discharge note from 03/18/2023 discussing his presentation for alcohol withdrawal, electrolyte abnormalities and right rib fracture. ECG per my interpretation: Indication was vomiting and tachycardia. The ECG shows a sinus tachycardia with a rate of 108. There are some inverted T waves noted anteriorly. There is no acute ST elevation. A potential old inferior infarct was noted. No PVCs. The QTc was 450. Continuous Cardiac Monitoring per my interpretation: An order was placed for continuous cardiac monitoring. The monitor shows a rate of 112 with sinus tachycardia. Imaging/x-ray results per my interpretation: Chest x-ray does not show mediastinal widening, pneumonia or free air. There is no CHF. Chronic Medical/Social conditions affecting care: Alcoholism Care/Management discussed with: Case management, the on-call hospitalist. Level of care consideration(s): After review of the information above and other included data: --I believe the patient requires escalation of care to admission Critical Care Note: I have personally spent 52 minutes of critical care time in the direct management of this patient. This includes bedside care, interpretation of diagnostic studies, and testing, discussion with consultants, patient, and family members, and other required patient management activities. This 52 minutes is in excess of all separately billable procedures. DISPOSITION: Admission Past Med/Surg History Medical History Thrombocytopenia Ascites Portal hypertension Esophageal varices Alcoholic cirrhosis of liver History of macrocytic anemia History of alcohol abuse Surgical History History of esophagogastroduodenoscopy (EGD) Including procedures for esophageal varices banding History of tonsillectomy Family History Mother Diabetes Father Prostate cancer Other No family history of adverse response to anesthesia Social History Smoking Status: Unknown if ever smoked Tobacco Type: Smokeless Tobacco (Dip or Chew) Second Hand Exposure: No; Do You Dip or Chew Tobacco: Yes; Hx Alcohol Use: Yes Alcohol type: hard liquor Hx Substance Use: No Preferred Language: Kiswahili Communication Ability: Effective Land Manager Required: No Beliefs That Will Affect Care: None Current Living Situation: Alone Current Living Situation Comment: lives with parents Feels Safe at Home: Yes Assistive Devices: None Allergies Allergies Allergy/AdvReac Type Severity Reaction Status Date / Time aspirin AdvReac Unknown THINS Verified 04/09/23 20:22 BLOOD, NOSE BLEEDS Home Meds Home Medications Medication Instructions Recorded Confirmed buspirone 5 mg tablet 5 mg PO BID 06/10/18 04/09/23 nadolol 20 mg tablet 20 mg PO QAM 06/10/18 04/09/23 potassium chloride 10 mEq 10 meq PO QAM 06/10/18 04/09/23 tablet,extended release ursodiol 300 mg capsule 300 mg PO BID 06/10/18 04/09/23 zolpidem 5 mg tablet (Ambien) 5 mg PO HS PRN Sleep 06/10/18 04/09/23 pantoprazole 20 mg tablet,delayed 20 mg PO QAM 07/09/19 04/09/23 release furosemide 20 mg tablet 20 mg PO QAM 11/14/22 04/09/23 spironolactone 25 mg tablet 25 mg PO QAM 11/14/22 04/09/23 citalopram 10 mg tablet 10 mg PO QAM 04/09/23 04/09/23 Previous Rx's Medication Instructions Recorded folic acid 1 mg tablet 1 mg PO QAM #30 tabs 03/18/23 magnesium oxide 400 mg (241.3 mg 400 mg PO QAM #30 tabs 03/18/23 magnesium) tablet thiamine HCl (vitamin B1) 100 mg 100 mg PO QAM #30 tabs 03/18/23 tablet Results & Data (ED) Vital Signs Vital Signs - 24 hr 04/09/23 17:15 04/09/23 19:32 04/09/23 19:33 Temperature 36.7 C Temperature Source Temporal Artery Scan Pulse Rate 112 H 91 H 90 Pulse Rate from SpO2 Sensor 91 H Respiratory Rate 19 15 Respiratory Effort / Characteristics Non-Labored Spontaneous Respiratory Depth Normal Blood Pressure 126/83 137/93 Blood Pressure Mean 97 107 Pulse Oximetry 96 93 Oxygen Delivery Method Room Air Sepsis Recent Fever Within 48 Hours No Sepsis New/Unexplained Change in Mental Status N/A Sepsis Action Taken by Nursing No Action Required 04/09/23 23:25 Temperature Temperature Source Pulse Rate 94 H Pulse Rate from SpO2 Sensor Respiratory Rate Respiratory Effort / Characteristics Respiratory Depth Blood Pressure Blood Pressure Mean Pulse Oximetry Oxygen Delivery Method Sepsis Recent Fever Within 48 Hours Sepsis New/Unexplained Change in Mental Status Sepsis Action Taken by Retirement Medications Current Medication List: was personally reviewed by me Laboratory Data Attestation: I reviewed the patient's lab results. 04/09/23 22:41 04/09/23 18:20 Lab Results 04/09/23 04/09/23 04/09/23 Range/Units 18:20 22:15 22:41 WBC 6.83 (4.8-10.8) K/ul RBC 4.90 (4.70-6.10) M/uL Hgb 16.3 13.4 L D (14.0-18.0) g/dl Hct 47.0 39.4 L (42.0-52.0) % MCV 95.9 (80.0-100.0) fL MCH 33.3 (25.0-34.0) pg MCHC 34.7 (32.0-36.0) g/dL RDW Std Deviation 42.9 (36.4-46.3) fL RDW Coeff of Hang 12.2 (11.5-14.5) % Plt Count 86 L (130-400) K/uL MPV 10.7 (9.4-12.4) fL Immature Gran % (Auto) 0.4 % Neut % (Auto) 84.1 % Lymph % (Auto) 7.6 % Patrick % (Auto) 6.3 % Eos % (Auto) 1.0 % Baso % (Auto) 0.6 % Neut # (Auto) 5.74 (1.40-6.50) K/uL Lymph # (Auto) 0.52 L (1.20-3.40) K/uL Patrick # (Auto) 0.43 (0.11-0.59) K/uL Eos # (Auto) 0.07 (0.00-0.50) K/uL Baso # (Auto) 0.04 (0.00-0.20) K/uL Immature Gran # (Auto) 0.03 (0.01-0.20) K/uL Sodium 135 L (136-145) mmol/L Potassium 3.3 L (3.5-5.1) mmol/L Chloride 97 L (98-107) mmol/L Carbon Dioxide 24 (21-32) mmol/L Anion Gap 14 H (3-11) BUN 9 (6-23) mg/dl Creatinine 0.88 (0.6-1.4) mg/dl Est Cr Clr Drug Dosing Not Reportable Est GFR ( Amer) 116.9 ml/min Est GFR (Non-Af Amer) 100.9 ml/min BUN/Creatinine Ratio 10.2 (10-20) Glucose 170 H (70-99(Fasting)) mg/dl Calcium 8.6 (8.6-10.3) mg/dl Magnesium 1.3 L (1.7-2.4) mg/dl Total Bilirubin 7.9 H (0.2-1.0) mg/dl AST 265 H (13-39) U/L ALT 226 H (7-52) U/L Alkaline Phosphatase 95 (34-104) U/L Ammonia 35.0 (18-72) umol/L Troponin I High Sens 8.1 (0-20) pg/ml Total Protein 8.5 H (6.0-8.3) gm/dl Albumin 4.0 (3.4-5.0) gm/dl Globulin 4.5 H (2.5-4.0) gm/dl Albumin/Globulin Ratio 0.9 (0.9-2) Lipase 51 (11-82) U/L Ethyl Alcohol mg/dL 193.6 H (<10.0) mg/dl SARS-CoV-2 (PCR) NEGATIVE (Negative) Influenza Type A (PCR) Negative (Neg) Influenza Type B (PCR) Negative (Neg) RSV (RT-PCR) Negative (Neg) Administered Medications Morphine Sulfate (Morphine Sulfate 2 Mg/Ml Carp) 2 mg IV Q30M PRN PRN Reason: Pain Stop: 04/23/23 21:48 Last Admin: 04/09/23 22:01 Dose: 2 mg Documented By: RUSS Discontinued Medications Famotidine (Pepcid 20mg Iv Push) 20 mg in 5 mls @ 2.5 mls/min IV NOW STA Stop: 04/09/23 19:17 Last Admin: 04/09/23 19:29 Dose: 2.5 mls/min Documented By: RUSS Pantoprazole Sodium 40 mg/ (Syringe) 10 mls @ 5 mls/min IV NOW ONE Stop: 04/09/23 19:17 Last Admin: 04/09/23 19:54 Dose: 5 mls/min Documented By: RUSS Multivitamins 10 ml/ Thiamine HCl 100 mg/ Folic Acid 1 mg/Sodium Chloride 1,011.2 mls @ 500 mls/hr IV .Q2H2M ONE Stop: 04/09/23 21:17 Last Infusion: 04/09/23 21:58 Dose: Infused Documented By: Admin: 04/09/23 19:56 Dose: 500 mls/hr Documented By: RUSS Magnesium Sulfate/Dextrose (Magnesium Sulfate / D5w) 1 gm in 100 mls @ 100 mls/hr IV Q1H LANDRY Stop: 04/09/23 23:18 Last Admin: 04/09/23 23:11 Dose: 100 mls/hr Documented By: Infusion: 04/09/23 23:03 Dose: Infused Documented By: Admin: 04/09/23 22:03 Dose: 100 mls/hr Documented By: RUSS Ondansetron HCl (Ondansetron Inj 2 Mg/Ml 2 Ml Vial) 4 mg IV NOW STA Stop: 04/09/23 19:17 Last Admin: 04/09/23 19:30 Dose: 4 mg Documented By: RUSS Potassium Chloride (Potassium Chloride Pwd 20 Meq Pack) 40 meq PO NOW STA Stop: 04/09/23 20:45 Last Admin: 04/09/23 21:43 Dose: 40 meq Documented By: RUSS Imaging Data Radiologist's Impression: Chest X-Ray 04/09/23 18:35 XR chest 1V not portable CLINICAL HISTORY: Shortness of breath. Vomiting. COMPARISON STUDY: Chest CT November 20, 2022. Chest radiograph and right rib series March 14, 2023. FINDINGS: Mild elevation the right hemidiaphragm is unchanged. Several healing right lower rib fractures are again noted. Lungs are clear. There is no pneumothorax or pleural effusion. Cardiac size is normal. Mediastinal contours are normal. There is no evidence for pulmonary edema. IMPRESSION: No acute cardiopulmonary findings. ACT 112: Negative or not required by law. Electronically signed by: Fidel Krishnamurthy M.D. 04/09/2023 7:31 PM Abdomen/Pelvis CT 04/09/23 19:08 Exam(s): CT ABDOMEN + PELVIS Without Contrast EXAM: CT Abdomen and Pelvis Without Intravenous Contrast CLINICAL HISTORY: Reason for exam: vomiting. TECHNIQUE: Axial computed tomography images of the abdomen and pelvis without intravenous contrast. CTDI is 23.12 mGy and DLP is 1312.72 mGy-cm. Automated exposure control was utilized for the study. A dose lowering technique was utilized adhering to the principles of ALARA. COMPARISON: No relevant prior studies available. FINDINGS: Lung bases: Unremarkable. No mass. No consolidation. ABDOMEN: Liver: Hepatic cirrhosis and steatosis. Gallbladder and bile ducts: Unremarkable. No calcified stones. No ductal dilation. Pancreas: Unremarkable. No ductal dilation. Spleen: Unremarkable. No splenomegaly. Adrenals: Unremarkable. No mass. Kidneys and ureters: Nonobstructing 6 LEFT lower pole renal stone. No hydronephrosis. Stomach and bowel: Unremarkable. No acute diverticulitis. No bowel obstruction. No free air. PELVIS: Appendix: No findings to suggest acute appendicitis. Bladder: Unremarkable. No stones. Reproductive: Unremarkable as visualized. ABDOMEN and PELVIS: Intraperitoneal space: See above. Bones/joints: Degenerative changes of the spine. No acute fracture. No dislocation. Soft tissues: Fat-containing umbilical hernia measures 4.1 x 4.4 cm. Vasculature: Atherosclerotic changes of the aorta. No abdominal aortic aneurysm. Lymph nodes: Unremarkable. No enlarged lymph nodes. IMPRESSION: 1. No acute diverticulitis. No bowel obstruction. No free air. 2. Hepatic cirrhosis and steatosis. 3. Nonobstructing 6 LEFT lower pole renal stone. 4. Fat-containing umbilical hernia measures 4.1 x 4.4 cm. Electronically signed by: Pedro Pablo Campo MD 04/09/23 19:53 PM Discharge Plan Visit Data Chief Complaint: Vomiting Stated Complaint: N/V/D ED Provider: Darrin Gray Discharge Problem: Acute liver failure, Vomiting, Acute dehydration, Alcohol abuse, Hypokalemia, Hypomagnesemia, Thrombocytopenia Patient Disposition: Admitted As Inpatient Condition: Serious Forms Stand Alone Forms: My [facility] Prescriptions Prescriptions: No Action buspirone 5 mg Tablet 5 mg PO BID potassium chloride 10 mEq Tablet Extended Release 10 meq PO QAM nadolol 20 mg Tablet 20 mg PO QAM ursodiol 300 mg Capsule 300 mg PO BID zolpidem [Ambien] 5 mg Tablet 5 mg PO HS PRN (Reason: Sleep) pantoprazole 20 mg tablet,delayed release (DR/EC) 20 mg PO QAM spironolactone 25 mg tablet 25 mg PO QAM furosemide 20 mg tablet 20 mg PO QAM citalopram 10 mg tablet 10 mg PO QAM thiamine HCl (vitamin B1) 100 mg Tablet 100 mg PO QAM Qty: 30 0RF magnesium oxide 400 mg (241.3 mg magnesium) Tablet 400 mg PO QAM Qty: 30 0RF folic acid 1 mg Tablet 1 mg PO QAM Qty: 30 0RF Referrals Referrals: Michelle Borrego DO [Primary Care Provider] - Discharge Problem: Acute liver failure Qualifiers: Hepatic coma status: without hepatic coma Qualified Code(s): K72.00 - Acute and subacute hepatic failure without coma Vomiting Qualifiers: Vomiting type: unspecified Nausea presence: with nausea Qualified Code(s): R 11.2 - Nausea with vomiting, unspecified
--- NOTE | 2023-04-09 19:33 | XRay Report ---
XR chest 1V not portable CLINICAL HISTORY: Shortness of breath. Vomiting. COMPARISON STUDY: Chest CT November 20, 2022. Chest radiograph and right rib series March 14, 2023. FINDINGS: Mild elevation the right hemidiaphragm is unchanged. Several healing right lower rib fractu res are again noted. Lungs are clear. There is no pneumothorax or pleural effusion. Cardiac size is n ormal. Mediastinal contours are normal. There is no evidence for pulmonary edema. IMPRESSION: No acute cardiopulmonary findings. ACT 112: Negative or not required by law. Electronically signed by: Fidel Krishnamurthy M.D. 04/09/2023 7:31 PM
--- NOTE | 2023-04-09 19:54 | CT Scan Report ---
Exam(s): CT ABDOMEN + PELVIS Without Contrast EXAM: CT Abdomen and Pelvis Without Intravenous Contrast CLINICAL HISTORY: Reason for exam: vomiting. TECHNIQUE: Axial computed tomography images of the abdomen and pelvis without intravenous contrast. CTDI is 23.12 mGy and DLP is 1312.72 mGy-cm. Automated exposure control was utilized for the study. A dose lowering technique was utilized adhering to the principles of ALARA. COMPARISON: No relevant prior studies available. FINDINGS: Lung bases: Unremarkable. No mass. No consolidation. ABDOMEN: Liver: Hepatic cirrhosis and steatosis. Gallbladder and bile ducts: Unremarkable. No calcified stones. No ductal dilation. Pancreas: Unremarkable. No ductal dilation. Spleen: Unremarkable. No splenomegaly. Adrenals: Unremarkable. No mass. Kidneys and ureters: Nonobstructing 6 LEFT lower pole renal stone. No hydronephrosis. Stomach and bowel: Unremarkable. No acute diverticulitis. No bowel obstruction. No free air. PELVIS: Appendix: No findings to suggest acute appendicitis. Bladder: Unremarkable. No stones. Reproductive: Unremarkable as visualized. ABDOMEN and PELVIS: Intraperitoneal space: See above. Bones/joints: Degenerative changes of the spine. No acute fracture. No dislocation. Soft tissues: Fat-containing umbilical hernia measures 4.1 x 4.4 cm. Vasculature: Atherosclerotic changes of the aorta. No abdominal aortic aneurysm. Lymph nodes: Unremarkable. No enlarged lymph nodes. IMPRESSION: 1. No acute diverticulitis. No bowel obstruction. No free air. 2. Hepatic cirrhosis and steatosis. 3. Nonobstructing 6 LEFT lower pole renal stone. 4. Fat-containing umbilical hernia measures 4.1 x 4.4 cm. Electronically signed by: Pedro Pablo Campo MD 04/09/23 19:53 PM
[2023-04-09] MEDS ORDERED: POTASSIUM CHLORIDE PWD 20 MEQ PACK PO STA (20:44)
[2023-04-09 21:03] LABS: Magnesium 1.3 mg/dl (1.7-2.4)
[2023-04-09] MEDS ORDERED: MoRPHine SULFATE 2 MG/ML CARP IV PRN (21:49)
[2023-04-09] MEDS: MAGNESIUM SULFATE / D5W 1 GM/100 ML BAG IV SCH ×2 (22:03→23:11)
[2023-04-09] MEDS ORDERED: PANTOprazole 80 MG in DEXTROSE 5% 100 ML IV STA (22:08)
[2023-04-09 23:09] LABS: Influenza A virus by PCR Negative (Neg); Influenza B virus by PCR Negative (Neg); RSV by PCR Negative (Neg); SARS CoV2 RNA(COVID-19) Ceph NEGATIVE (Negative)
[2023-04-09 23:18] LABS: Hematocrit (blood only) 39.4 % (42.0-52.0); Hemoglobin 13.4 g/dl (14.0-18.0)
[2023-04-09] MEDS ORDERED: LORazepam 3 MG in SYRINGE 1.5 ML IV PRN (23:59)
[2023-04-09] MEDS ORDERED: Ativan IV Alcohol Withdrawal--Active Protocol IV PRN (23:59)
[2023-04-10] MEDS ORDERED: GABAPENTIN 600 MG TAB PO STA
[2023-04-10 00:01] LABS: INR 1.3 (0.9-1.1); Partial Thromboplastin Ratio 1.2; Partial Thromboplastin Time 33 Seconds (21-31); Prothrombin Time 14.4 Seconds (9.0-12.0)
[2023-04-10] MEDS ORDERED: ACETAMINOPHEN 500 MG TAB PO PRN (01:16)
[2023-04-10] MEDS ORDERED: oxyCODONE HCL IR 5 MG TAB (IMMEDIATE RELEASE) PO PRN (01:16)
[2023-04-10] MEDS ORDERED: cefTRIAXone SODIUM 2,000 MG/50 ML BAG IV STA (02:10)
--- OUTSIDE RECORDS SUMMARY | 2023-04-10 02:14 | External Medical Summary | Summary of Care ---
Author Name Unknown Organization [facility] Address [address] [place] [place] [address] Phone [phone] Care Team Providers Care Sledger Name Role Phone Ollie Stein DO Primary Care Provider + [phone] Reason for Visit * Reason Onset Date Comments Medication Refill 04/04/2023 Encounter Details Date Type Department Care Team (Late st Contact Info) Description 04/04/2023 Refill Family Medicine [address] [phone] Ollie Stein DO [address] [place] [address] [place] [phone] Alcoholic cirrhosis of liver with ascites (HCC) Allergies Active Allergy Reactions Criticality Noted Date Comments Aspirin Other (Please comment) 02/12/2016 Reports having a bloody nose. documented as of this encounter (statuses as of 04/07/2023) Medications Medication Sig Dispensed Refills Start Date End Date Status Pantoprazole Sodium 20 MG Oral Tablet Delayed Release (Protonix) TAKE ONE TABLET BY MOUTH EVERY DAY 90 Tablet 3 06/24/2022 Active Ursodiol 300 MG Oral Capsule (Actigall) TAKE ONE CAPSULE BY MOUTH TWICE DAILY 180 Capsule 12 12/18/2022 Active Citalopram Hydrobromide 10 MG Oral Tablet (CeleXA) Take 1 Tablet by mouth in the morning. 90 Tablet 3 12/24/2022 Active Spironolactone 25 MG Oral Tablet (Aldactone) Take 1 Tablet by mouth in the morning. 90 Tablet 3 01/14/2023 Active MAGnesium-Oxide 400 (240 Mg) MG Oral Tablet Take 1 Tablet by mouth in the morning. In the morning.. 0 03/18/2023 Active Thiamine Mononitrate 100 MG Oral Tablet (Vitamin B-1) Take 1 Tablet by mouth in the morning. In the morning.. 0 03/18/2023 Active Zolpidem Tartrate 5 MG Oral Tablet (Ambien)Indication s:History of alcohol abuse,Persistent insomnia Take 1 Tablet by mouth at bedtime as needed for Sleep. 30 Tablet 0 03/25/2023 Active Folic Acid 1 MG Oral Tablet Take 1 Tablet by mouth in the morning. 90 Tablet 3 04/07/2023 Active Potassium Chloride ER 10 MEQ Oral Tablet Extended Release Take 1 Tablet by mouth in the morning. In the morning.. 90 Tablet 3 04/07/2023 Active busPIRone HCl 5 MG Oral Tablet (Buspar) Take 1 Tablet by mouth in the morning and 1 Tablet before bedtime. 180 Tablet 3 04/07/2023 Active Furosemide 20 MG Oral Tablet (Lasix)Indications :Alcoholic cirrhosis of liver with ascites (HCC) Take 1 Tablet by mouth in the morning. 90 Tablet 3 04/07/2023 Active Nadolol 20 MG Oral Tablet (Corgard) Take 1 Tablet by mouth in the morning. 90 Tablet 3 04/07/2023 Active Nadolol 20 MG Oral Tablet (Corgard) Take 1 Tablet by mouth in the morning. 90 Tablet 3 12/18/2022 04/04/2023 Discontinue d(Refill) busPIRone HCl 5 MG Oral Tablet (Buspar) Take 1 Tablet by mouth in the morning and 1 Tablet before bedtime. 180 Tablet 3 01/14/2023 04/04/2023 Discontinue d(Refill) Folic Acid 1 MG Oral Tablet Take 1 Tablet by mouth in the morning. 90 Tablet 3 01/14/2023 04/04/2023 Discontinue d(Refill) Potassium Chloride ER 10 MEQ Oral Tablet Extended Release TAKE ONE TABLET BY MOUTH EVERY MORNING 90 Tablet 3 03/04/2023 04/04/2023 Discontinue d(Refill) Furosemide 20 MG Oral Tablet (Lasix)Indications :Alcoholic cirrhosis of liver with ascites (HCC) Take 1 Tablet by mouth in the morning. 90 Tablet 3 03/05/2023 04/04/2023 Discontinue d(Refill) documented as of this encounter (statuses as of 04/07/2023) Active Problems Problem Noted Date Diagnosed Date [...] as of this encounter (statuses as of 04/07/2023) Resolved Problems Problem Noted Date Diagnosed Date [...] as of this encounter (statuses as of 04/07/2023) Immunizations Name Administration Dates Next Due COVID-19 [...] Telephone Encounter - Ollie Stein DO - 04/07/2023 12:39 PM ESTSigned Prescriptions: Disp Refills Folic Acid 1 MG Oral Tablet 90 Tab*3 Sig: Take 1 Tablet by mouth in the morning. Authorizing Provider: OLLIE STEIN Potassium Chloride ER 10 MEQ Oral Tablet E*90 Tab*3 Sig: Take 1 Tablet by mouth in the morning. In the morning.. Authorizing Provider: OLLIE STEIN busPIRone HCl 5 MG Oral Tablet (Buspar) 180 Ta*3 Sig: Take 1 Tablet by mouth in the morning and 1 Tablet before bedtime. Authorizing Provider: OLLIE STEIN Furosemide 20 MG Oral Tablet (Lasix) 90 Tab*3 Sig: Take 1 Tablet by mouth in the morning. Authorizing Provider: OLLIE STEIN Nadolol 20 MG Oral Tablet (Corgard) 90 Tab*3 Sig: Take 1 Tablet by mouth in the morning. Authorizing Provider: OLLIE RIVERA * Telephone Encounter - Shayna Talley RN - 04/07/2023 7:16 AM ESTPending Prescriptions: Disp Refills Folic Acid 1 MG Oral Tablet 90 Tab*3 Sig: Take 1 Tablet by mouth in the morning. Potassium Chloride ER 10 MEQ Oral Tablet E*90 Tab*3 Sig: Take 1 Tablet by mouth in the morning. In the morning.. busPIRone HCl 5 MG Oral Tablet (Buspar) 180 Ta*3 Sig: Take 1 Tablet by mouth in the morning and 1 Tablet before bedtime. Furosemide 20 MG Oral Tablet (Lasix) 90 Tab*3 Sig: Take 1 Tablet by mouth in the morning. Nadolol 20 MG Oral Tablet (Corgard) 90 Tab*3 Sig: Take 1 Tablet by mouth in the morning. * Telephone Encounter - Jolly Leonard Ricky, SONIA - 04/04/2023 11:43 AM EST Did you pend patient's preferred pharmacy and medication before forwarding?yes Pharmacy: [address] [facility] Pending Prescriptions: Disp Refills Folic Acid 1 MG Oral Tablet 90 Tab*3 Sig: Take 1 Tablet by mouth in the morning. Potassium Chloride ER 10 MEQ Oral Tablet *90 Tab*3 Sig: Take 1 Tablet by mouth in the morning. In the morning.. busPIRone HCl 5 MG Oral Tablet (Buspar) 180 Ta*3 Sig: Take 1 Tablet by mouth in the morning and 1 Tablet before bedtime. Furosemide 20 MG Oral Tablet (Lasix) 90 Tab*3 Sig: Take 1 Tablet by mouth in the morning. Nadolol 20 MG Oral Tablet (Corgard) 90 Tab*3 Sig: Take 1 Tablet by mouth in the morning. Last Visit: 03/25/2023 (in office), Visit date not found (telemedicine) Next Visit: 06/24/2023 If no future appointments scheduled, and last appointment is greater than a year ago, please schedule patient for a follow-up appointment Last date the medication was ordered: 03.04.23 Is this request for a controlled substance?No [...] EST Hospital Encounter ENDO [facility], Endoscopy Room [facility] [address] [place] [phone] Jamil Bond MD [address] [place] [address] 05/05/2023 11:15 AM EST - 05/05/2023 11:45 AM EST Surgery ENDO [facility], Endoscopy Room [facility] [address] [phone] Jamil Bond MD [address] [place] [address] ESOPHAGOGASTRODUODENOSCOPY (EGD), FLEXIBLE, TRANSORAL, DIAGNOSTIC 05/06/2023 8:30 AM EST Imaging Radiology [address] [place] [id number] 06/24/2023 8:30 AM EDT Office Visit Family Medicine [address] [place] [phone] Stein, Ollie Guerra[address] [place] [address] Scheduled Procedures Name Priority Associated Diagnoses Date/Ti [...] the patient have Health Care Power of Cylinder Machine Operator Pulp Drier? No Code Status History Code Status [...] the patient have Health Care Power of Cylinder Machine Operator Pulp Drier? No Full Code 02/10/2016 5:50 PM 02/20/2016 12:09 AM Th is order reflects the patients wishes and were consensually agreed upon. Question Answer Comments Discussion of Advance Directives occurred with: Patient Does the patient have a Living Will? No Does the patient have Health Care Power of Cylinder Machine Operator Pulp Drier? No Full Code 01/15/2016 3:25 PM 01/18/2016 6:24 PM Thi s order reflects the patients wishes and were consensually agreed upon. Question Answer Comments Discussion of Advance Directives occurred with: Patient Does the patient have a Living Will? No Does the patient have Health Care Power of Cylinder Machine Operator Pulp Drier? No Care Teams Sledger Relationship Specialty Start Date End Date Ollie Stein DO [address] [place] [address] [place] [phone] PCP - General Internal Medicine 06/07/16 documented as of this encounter
--- OUTSIDE RECORDS SUMMARY | 2023-04-10 02:14 | External Medical Summary | Summary of Care ---
Author Name Unknown Organization [facility] Address [address] [place] [facility] [place] [address] Phone [phone] Care Team Providers Care Open End Spinning Operator Name Role Phone Michelle Borrego Primary Care Provider + [phone] Reason for Visit * Reason Comments eRx-Medication Refill Encounter Details Date Type Department Care Team (Late st Contact Info) Description 03/18/2023 Refill Family Medicine [address] [address] Allan Lepe MD [address] [place] [address] [place] [id number] Primary insomnia Allergies Active Allergy Reactions Criticality Noted Date Comments Aspirin Other (Please comment) 02/12/2016 Reports having a bloody nose. documented as of this encounter (statuses as of 03/19/2023) Medications Medication Sig Dispensed Refills Start Date [...] as of this encounter (statuses as of 03/19/2023) Active Problems Problem Noted Date Diagnosed Date [...] as of this encounter (statuses as of 03/19/2023) Resolved Problems Problem Noted Date Diagnosed Date [...] as of this encounter (statuses as of 03/19/2023) Immunizations Name Administration Dates Next Due COVID-19 [...] (15 years old or older) No 07/11/19 Cognitive Status Response Date of Assessm ent Because of a physical, menta l, or emotional condition, do you have serious difficulty concentrating, remembering, or making decisions? (5 years old or older) No 07/11/2019 documented as of this encounter Miscellaneous Notes * Telephone Encounter - Kala Salinas RPh - 03/19/2023 12:48 PM EST The original prescription was discontinued on 02/11/2023 by Michelle Borrego DO. Renewing this prescription may not be appropriate. * Telephone Encounter - Kala Salinas RPh - 03/19/2023 12:48 PM EST Refused Prescriptions: Disp Refills Zolpidem Tartrate 5 MG Oral Tablet (Ambien)90 Tab*1 Sig: Take 1 Tablet by mouth at bedtime as needed for Sleep. Refused By: KALA SALINAS Reason for Refusal: Course of treatment complete documented in this encounter Plan of Treatment Upcoming Encounters Date Type Department Care Team (Latest Contact Info) Description 03/25/2023 8:00 AM EST Office Visit Family [address] [address] Cheryl Purvis PA-C [address] [place] [address] [place] [phone] 05/05/2023 11:15 AM EST Hospital Encounter ENDO [facility], Endoscopy Room [facility] [address] [place], [place] [phone] Jamil Bond MD [address] [place] [address] 05/05/2023 11:15 AM EST - 05/05/2023 11:45 AM EST Surgery ENDO [facility], Endoscopy Room [facility] [address] [place] [phone] Jamil Bond MD [address] [place] [address] ESOPHAGOGASTRODUODENOSCOPY (EGD), FLEXIBLE, TRANSORAL, DIAGNOSTIC 05/06/2023 8:30 AM EST Imaging Radiology [address] [place] [id number] Scheduled Procedures Name Priority Associated Diagnoses Date/Ti [...] Persistent disorder of initiating or maintaining sleep Alcoholic cirrhosis of liver with ascites (HCC) [...] the patient have Health Care Power of Industrial Roof Plumber? No Code Status History Code Status Date [...] the patient have Health Care Power of Industrial Roof Plumber? No Full Code 02/10/2016 5:50 PM 02/20/2016 12:09 AM Th is order reflects the patients wishes and were consensually agreed upon. Question Answer Comments Discussion of Advance Directives occurred with: Patient Does the patient have a Living Will? No Does the patient have Health Care Power of Industrial Roof Plumber? No Full Code 01/15/2016 3:25 PM 01/18/2016 6:24 PM Thi s order reflects the patients wishes and were consensually agreed upon. Question Answer Comments Discussion of Advance Directives occurred with: Patient Does the patient have a Living Will? No Does the patient have Health Care Power of Industrial Roof Plumber? No Care Teams Open End Spinning Operator Relationship Specialty Start Date End Date Michelle Borrego DO [address] [place] [address] [place] [id number] PCP - General Internal Medicine 06/07/16 documented as of this encounter
--- OUTSIDE RECORDS SUMMARY | 2023-04-10 02:14 | External Medical Summary | Summary of Care ---
Author Name Unknown Organization [facility] Address [address] [place] [facility] [place] [address] Phone [phone] Care Team Providers Care Rag Baler Name Role Phone Michelle Borrego DO Primary Care Provider + [phone] Reason for Visit * Reason Onset Date Comments Advice 12/13/2022 Encounter Details Date Type Department Care Team (Late st Contact Info) Description 12/13/2022 Telephone Family Medicine [address] [phone] Michelle Borrego DO [address] [place] [address] [place] [phone] Advice Allergies Active Allergy Reactions Criticality Noted Date Comments Aspirin Other (Please comment) 02/12/2016 Reports having a bloody nose. documented as of this encounter (statuses as of 03/14/2023) Medications Medication Sig Dispensed Refills Start Date End Date Status Pantoprazole Sodium 20 MG Oral Tablet Delayed Release (Protonix) TAKE ONE TABLET BY MOUTH EVERY DAY 90 Tablet 3 06/24/2022 Active Thiamine HCl 100 MG Oral Tablet Take 1 Tablet by mouth in the morning. 0 11/25/2022 Active Furosemide 20 MG Oral Tablet (Lasix)Indicatio ns:Alcoholic cirrhosis of liver with ascites (HCC) Take 1 Tablet (20 mg) by mouth in the morning. 90 Tablet 3 02/08/2022 3 Discontinued(Refi ll) Potassium Chloride ER 10 MEQ Oral Tablet Extended Release TAKE ONE TABLET BY MOUTH EVERY MORNING 90 Tablet 1 07/23/2022 3 Discontinued documented as of this encounter (statuses as of 03/14/2023) Active Problems Problem Noted Date Diagnosed Date [...] as of this encounter (statuses as of 03/14/2023) Resolved Problems Problem Noted Date Diagnosed Date [...] as of this encounter (statuses as of 03/14/2023) Immunizations Name Administration Dates Next Due COVID-19 mRNA, LNP-s, No Pre serve, 2-Dose Series (Moderna) 07/26/2020,06/13/2020 COVID-19, mRNA, LNP-s, PF, B ooster, 100mcg/0.5mg (Moderna) 03/07/2021 Covid-19, Mrna, Lnp-s, Pf, B ivalent, 30 Mcg, IM, 12 yrs and above (Qloud) 03/08/2022 HEP A - Hepatitis A (Adult > 18 yrs) 02/12/2017, 07/12/2016 Hepatitis B, 20+ yrs 02/12/2017,08/16/2016,07/12 Pneumococcal Polysaccharide PPV23 (Pneumovax) 05/26/2017 Seasonal Influenza, PF, 6 M & above, IM , (FluLaval or Fluzone) 02/08/2022,11/29/2020,12/13/2019,06/01,02/12/2017 TDAP (age 10 and older)(Boostrix) 11/12/2016 [...] encounter Miscellaneous Notes * Telephone Encounter - Blanka Galvan OSA - 12/13/2022 4:32 PM EDT Pt is wanting to inform pcp that short term disability paperwork should be faxed over for pt soon. documented in this encounter Plan of Treatment Upcoming Encounters Date Type Department Care Team (Latest Contact Info) Description 05/05/2023 11:15 AM EST Hospital Encounter [facility]O [facility], Endoscopy Room [facility] [address] [place] [phone] Jamil Bond MD [address] [place] [address] 05/05/2023 11:15 AM EST - 05/05/2023 11:45 AM EST Surgery [facility]O [facility], Endoscopy Room [facility] [address] [place] [phone] Jamil Bond MD [address] [place] [address] ESOPHAGOGASTRODUODENOSCOPY (EGD), FLEXIBLE, TRANSORAL, DIAGNOSTIC 05/06/2023 8:30 AM EST Imaging Radiology [address] [place] [phone] Scheduled Procedures Name Priority Associated Diagnoses Date/Ti mn ESOPHAGOGASTRODUODENOSCOPY ( EGD), FLEXIBLE, TRANSORAL, DIAGNOSTIC Alcoholic [...] the patient have Health Care Power of Home Care Aide? No Code Status History Code Status Date [...] the patient have Health Care Power of Home Care Aide? No Full Code 02/10/2016 5:50 PM 02/20/2016 12:09 AM Th is order reflects the patients wishes and were consensually agreed upon. Question Answer Comments Discussion of Advance Directives occurred with: Patient Does the patient have a Living Will? No Does the patient have Health Care Power of Home Care Aide? No Full Code 01/15/2016 3:25 PM 01/18/2016 6:24 PM Thi s order reflects the patients wishes and were consensually agreed upon. Question Answer Comments Discussion of Advance Directives occurred with: Patient Does the patient have a Living Will? No Does the patient have Health Care Power of Home Care Aide? No Care Teams Rag Baler Relationship Specialty Start Date End Date Michelle Borrego DO [address] [place] [address] [place] [phone] PCP - General Internal Medicine 06/07/16 documented as of this encounter
--- OUTSIDE RECORDS SUMMARY | 2023-04-10 02:14 | External Medical Summary | Summary of Care ---
Author Name Unknown Organization [facility] Address [address] [facility] [place] [address] Phone [phone] Care Team Providers Care Graphics Software Engineer Name Role Phone Michelle Borrego Primary Care Provider + [phone] Reason for Visit * Reason Comments Hospital Follow-Up Encounter Details Date Type Department Care Team (Late st Contact Info) Description 03/25/2023 8:40 AM EST Office Visit Family Medicine [address] [phone] Allan Lepe MD [address] [place] [address] [place] [id number] Alcoholic cirrhosis of liver with ascites (HCC)*; History of alcohol abuse; Persistent insomnia Allergies Active Allergy Reactions Criticality Noted Date Comments Aspirin Other (Please comment) 02/12/2016 Reports having a bloody nose. documented as of this encounter (statuses as of 03/25/2023) Medications Medication Sig Dispensed Refills Start Date [...] the morning. 90 Tablet 3 01/14/2023 Active Potassium Chloride ER 10 MEQ Oral Tablet Extended Release TAKE ONE TABLET BY MOUTH EVERY MORNING 90 Tablet 3 03/04/2023 Active Furosemide 20 MG Oral Tablet (Lasix)Indications :Alcoholic cirrhosis of liver with ascites (HCC) Take 1 Tablet by mouth in the morning. 90 Tablet 3 03/05/2023 Active MAGnesium-Oxide 400 (240 Mg) MG Oral [...] for Sleep. 30 Tablet 0 03/25/2023 Active chlordiazePOXIDE HCl 25 MG Oral Capsule (Librium) Take 1 Capsule by mouth every 6 hours as needed (alcohol withdrawal). 15 Capsule 0 02/11/2023 03/25/2023 Discontinue d(Patient preference/ discontinua tion) documented as of this encounter (statuses as of 03/25/2023) Active Problems Problem Noted Date Diagnosed Date [...] as of this encounter (statuses as of 03/25/2023) Resolved Problems Problem Noted Date Diagnosed Date [...] as of this encounter (statuses as of 03/25/2023) Immunizations Name Administration Dates Next Due COVID-19 [...] Sign Reading Time Taken Comments Blood Pressure 122/74 03/25/2023 8:39 AM EST Pulse 80 03/25/2023 8:39 AM EST Temperature 35.8 C (96.4 F) 03/25/2023 8:39 AM ES T Respiratory Rate 16 03/25/2023 8:39 AM EST Oxygen Saturation 95% 03/25/2023 8:39 AM EST Inhaled Oxygen Concentration - - Weight 85.7 kg (189 lb) 03/25/2023 8:39 AM EST Height - - Body Mass Index 29.6 06/05/2022 2:17 PM EST documented in this [...] Progress Notes * Allan Lepe MD - 03/25/2023 8:35 AM EST Darrel was admitted to [facility] 03/13, discharged 03/18 for alcohol withdrawal. After being sober 7 years he started drinking again and has been admitted a couple of times now. He has liver damage, no ascites this time but has varices. He is off Librium would like to go back on Ambien for sleep like he had before Past Medical History: Diagnosis Date Abdominal pain 05/13/2017 Alcohol abuse 01/18/2016 Alcohol withdrawal (HCC) 12/08/2022 Admitted [facility] 12/08, discharged 12/12 Alcohol withdrawal (HCC) 03/13/2023 [facility], discharged 03/18 Alcohol withdrawal seizure without complication (HCC) 06/07/2016 Alcohol withdrawal syndrome (HCC) 11/20/2022 admitted [facility] with numbness and tingling Chronic cholecystitis Cirrhosis of liver with ascites Esophageal varices (HCC) grade II Generalized abdominal pain 04/16/2016 Hyponatremia 04/16/2016 Nausea without vomiting 04/16/2016 Persistent insomnia 02/12/2017 Past Surgical History: Procedure Laterality Date COLOGUARD 08/17/2022 negative CTA HEAD/CTA NECK 11/20/2022 no acute abnormalities, vessels not occluded. EGD, FLEXIBLE, DIAGNOSTIC N/A 04/18/2016 nonbleeding grade II esophageal varices, portal hypertensive gastropathy/ESOPHAGOGASTRODUODENOSCOPY(EGD), FLEXIBLE, TRANSORAL, DIAGNOSTIC performed by Jamil Bond MD at OR [facility] EGD, FLEXIBLE, DIAGNOSTIC 06/11/2018 esophageal varices, portal hypertensive gastropathy, repeat 2-4 mo / [facility] EGD, FLEXIBLE, DIAGNOSTIC 05/09/2021 normal / ESOPHAGOGASTRODUODENOSCOPY (EGD), FLEXIBLE, TRANSORAL, DIAGNOSTIC performed by Matt Boyd MD at ENDOSCOPY [facility] REMOVAL OF TONSILS, UNDER AGE 12 Review [...] Current Outpatient Medications Medication Sig Dispense Refill Pantoprazole Sodium 20 MG Oral Tablet Delayed Release (Protonix) TAKE ONE TABLET BY MOUTH EVERY DAY90 Tablet 3 Ursodiol 300 MG Oral Capsule (Actigall) TAKE ONE CAPSULE BY MOUTH TWICE DAILY 180 Capsule 12 Nadolol 20 MG Oral Tablet (Corgard) Take 1 Tablet by mouth in the morning. 90 Tablet 3 busPIRone HCl 5 MG Oral Tablet (Buspar) Take 1 Tablet by mouth in the morning and 1 Tablet before bedtime. 180 Tablet 3 Folic Acid 1 MG Oral Tablet Take 1 Tablet by mouth in the morning. 90 Tablet 3 Spironolactone 25 MG Oral Tablet (Aldactone) Take 1 Tablet by mouth in the morning. 90 Tablet 3 Potassium Chloride ER 10 MEQ Oral Tablet Extended Release TAKE ONE TABLET BY MOUTH EVERY MORNING 90Tablet 3 Furosemide 20 MG Oral Tablet (Lasix) Take 1 Tablet by mouth in the morning. 90 Tablet 3 MAGnesium-Oxide 400 (240 Mg) MG Oral Tablet Take 1 Tablet by mouth in the morning. In the morning.. Thiamine Mononitrate 100 MG Oral Tablet (Vitamin B-1) Take 1 Tablet by mouth in the morning. In themorning.. Citalopram Hydrobromide 10 MG Oral Tablet (CeleXA) Take 1 Tablet by mouth in the morning. 90 Tablet3 chlordiazePOXIDE HCl 25 MG Oral Capsule (Librium) Take 1 Capsule by mouth every 6 hours as needed (alcohol withdrawal). 15 Capsule 0 No current facility-administered medications for this visit. Immunization History Administered Date(s) Administered COVID-19 mRNA, LNP-s, No Preserve, 2-Dose Series (Moderna) 06/13/2020, 07/26/2020 COVID-19, MRNA-LNP, 23-24, PF, 30 MCG/0.3 mL, 12 YRS AND ABOVE, IM ([facility]) 01/15/2023 COVID-19, mRNA, LNP-s, PF, Booster, 100mcg/0.5mg (Moderna) 03/07/2021 Covid-19, Mrna, Lnp-s, Pf, Bivalent, 30 Mcg, IM, 12 yrs and above (Pfizer) 03/08/2022 HEP A - Hepatitis A (Adult > 18 yrs) 07/12/2016, 02/12/2017 Hepatitis B, 20+ yrs 07/12/2016, 08/16/2016, 02/12/2017 Pneumococcal Polysaccharide PPV23 (Pneumovax) 05/26/2017 Seasonal Influenza, PF, 6 M & above, IM , (FluLaval or Fluzone) 02/12/2017, 06/01/2018, 12/13/2019, 11/29/2020, 02/08/2022, 12/17/2022 TDAP (age 10 and older)(Boostrix) 11/12/2016 O: Blood pressure 122/74, pulse 80, temperature 35.8 C (96.4 F), temperature source Tympanic, resp. rate 16, weight 85.7 kg (189 lb), SpO2 95%. Looks pale. No tremor. Neck is supple without adenopathy or thyromegaly. Chest is symmetrical and moves normally. The lungs are clear without wheezes, rales, rhonchi or rubs, and the heart is regular without murmurs or gallops, or ectopy. PMI not displaced. A: Alcoholic cirrhosis of liver with ascites (HCC) (Primary) History of alcohol abuse - Zolpidem Tartrate 5 MG Oral Tablet (Ambien); Take 1 Tablet by mouth at bedtime as needed for Sleep. Persistent insomnia - Zolpidem Tartrate 5 MG Oral Tablet (Ambien); Take 1 Tablet by mouth at bedtime as needed for Sleep. Follow Up: Return in about 3 months (around 06/24/2023) for Clinic Visit. | For: Clinic Visit | Check-out note: Dr Borrego documented in this encounter Nursing Notes * Maite Staples LPN - 03/25/2023 8:35 AM EST [facility] follow up Was on Librium. Isn't on it anymore. Wants to go back on Ambien 5 mg documented in this encounter Plan of Treatment Upcoming Encounters Date Type Department Care Team (Latest Contact Info) Description 05/05/2023 11:15 AM EST Hospital Encounter ENDO [facility], Endoscopy Room [facility] [address] [place] [phone] Jamil Bond MD [address] [place] [address] 05/05/2023 11:15 AM EST - 05/05/2023 11:45 AM EST Surgery ENDO [facility], Endoscopy Room [facility] [address] [place] [phone] Jamil Bond MD [address] [place] [address] ESOPHAGOGASTRODUODENOSCOPY (EGD), FLEXIBLE, TRANSORAL, DIAGNOSTIC 05/06/2023 8:30 AM EST Imaging Radiology [address] [place] [phone] 06/24/2023 8:30 AM EDT Office Visit Family Medicine [address] [place] [phone] [address] [place] [id number] Scheduled Procedures Name Priority Associated Diagnoses Date/Ti [...] ascites (HCC)- Primary Alcoholic cirrhosis of liver History of alcohol abuse Nondependent alcohol abuse, in remission Persistent insomnia Persistent disorder of initiating or [...] the patient have Health Care Power of Billiard Table Assembler? No Code Status History Code Status Date [...] the patient have Health Care Power of Billiard Table Assembler? No Full Code 02/10/2016 5:50 PM 02/20/2016 12:09 AM Th is order reflects the patients wishes and were consensually agreed upon. Question Answer Comments Discussion of Advance Directives occurred with: Patient Does the patient have a Living Will? No Does the patient have Health Care Power of Billiard Table Assembler? No Full Code 01/15/2016 3:25 PM 01/18/2016 6:24 PM Thi s order reflects the patients wishes and were consensually agreed upon. Question Answer Comments Discussion of Advance Directives occurred with: Patient Does the patient have a Living Will? No Does the patient have Health Care Power of Billiard Table Assembler? No Care Teams Graphics Software Engineer Relationship Specialty Start Date End Date Michelle Borrego DO [address] [place] [address] [place] [phone] PCP - General Internal Medicine 06/07/16 documented as of this encounter"
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
--- NOTE | 2023-04-10 02:27 | History & Physical Report ---
Date of Service April 10, 2023 Assessment & Plan (1) UGIB (upper gastrointestinal bleed): Plan: Possible alcoholic gastritis History alcoholic cirrhosis History esophageal varices Hemoglobin currently stable Alcohol withdrawal, past history of alcohol withdrawal seizures, patient currently tremulous chronic hyponatremia Hypokalemia secondary to illness and home diuretic Rx PCU IV PPI Consider octreotide drip if with significant H&H drop on subsequent draw Ceftriaxone for SBP prophylaxis in a cirrhotic patient presenting with GI bleed GI consult re: UGIB N.p.o. until patient seen by GI in anticipation of endoscopic LARISA S, DT precautions Replace electrolytes DVT prophylaxis. SCDs Re: GI bleed Full code Text document was generated using Aibo voice recognition software. It may contain grammatical or spelling errors. Kindly contact undersigned for clarification of any documentation item in question. History of Present Illness Chief Complaint: Abdominal pain, vomiting Primary Care Provider: Michelle Borrego DO History obtained from patient and records. Medical history significant for alcoholic cirrhosis, history of esophageal varices, chronic hyponatremia, past history of alcohol withdrawal seizures, ongoing alcohol abuse. Recent confinement last month for alcohol withdrawal and right 10th rib fracture. Patient started drinking again last week. 4 days ago, patient experienced burning epigastric pain followed by bilious emesis. Dry cough with some shortness of breath. Denies chest pain. Denies headache symptoms. Denies OTC NSAID intake. Melanotic stools noted yesterday. Patient consulted ER for evaluation. IV Protonix administered at the ER. Medical History as above 2021 EGD no bendable varices seen. Normal stomach/duodenum. 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 Allergies Allergy/AdvReac Type Severity Reaction Status Date / Time aspirin AdvReac Unknown THINS Verified 04/09/23 20:22 BLOOD, NOSE BLEEDS Home Medications Medication Instructions Recorded Confirmed Type buspirone 5 mg tablet 5 mg PO BID 06/10/18 04/09/23 History nadolol 20 mg tablet 20 mg PO QAM 06/10/18 04/09/23 History potassium chloride 10 mEq 10 meq PO QAM 06/10/18 04/09/23 History tablet,extended release ursodiol 300 mg capsule 300 mg PO BID 06/10/18 04/09/23 History zolpidem 5 mg tablet (Ambien) 5 mg PO HS PRN Sleep 06/10/18 04/09/23 History pantoprazole 20 mg tablet,delayed 20 mg PO QAM 07/09/19 04/09/23 History release furosemide 20 mg tablet 20 mg PO QAM 11/14/22 04/09/23 History spironolactone 25 mg tablet 25 mg PO QAM 11/14/22 04/09/23 History folic acid 1 mg tablet 1 mg PO QAM #30 tabs 03/18/23 04/09/23 Rx magnesium oxide 400 mg (241.3 mg 400 mg PO QAM #30 tabs 03/18/23 04/09/23 Rx magnesium) tablet thiamine HCl (vitamin B1) 100 mg 100 mg PO QAM #30 tabs 03/18/23 04/09/23 Rx tablet citalopram 10 mg tablet 10 mg PO QAM 04/09/23 04/09/23 History Past Med/Surg History Medical History Thrombocytopenia Ascites Portal hypertension Esophageal varices Alcoholic cirrhosis of liver History of macrocytic anemia History of alcohol abuse Surgical History History of esophagogastroduodenoscopy (EGD) Including procedures for esophageal varices banding History of tonsillectomy Family History Mother Diabetes Father Prostate cancer Other No family history of adverse response to anesthesia Social History Smoking Status: Never smoker Tobacco Type: Smokeless Tobacco (Dip or Chew) Second Hand Exposure: No; Do You Dip or Chew Tobacco: Yes; Hx Alcohol Use: Yes Alcohol type: hard liquor Hx Substance Use: No Preferred Language: Upper Sorbian Communication Ability: Effective Patient Financial Specialist Required: No Beliefs That Will Affect Care: None Current Living Situation: Alone Current Living Situation Comment: lives with parents Other Information That Helps Us Care for You: No Feels Safe at Home: Yes Safety Concerns: Feels Safe At This Time Assistive Devices: None Review of Systems Review of Systems: As per HPI, all other systems reviewed and negative Physical Exam Physical Exam: GENERAL: uncomfortable, pleasant, tremulous, no respiratory distress SKIN: Normal color, warm HEENT: [place] palpebral conjunctivae, no ptosis, dry buccal mucosa NECK : Supple, no tenderness CHEST : CTA, no tenderness HEART : RRR, no obvious murmurs ABDOMEN: Some distention, epigastric tenderness EXTREMITIES : No LE swelling/tenderness, no other conspicuous deformities noted NEUROLOGIC : Coherent, no facial asymmetry,, tremulous, no other gross focality Results & Data Results & Data Vital Signs (Past 12 Hours) Vital Signs Temp Pulse Pulse Resp BP BP Pulse Ox 04/10/23 02:20 96 04/10/23 02:00 101 H 18 148/89 H 96 04/10/23 00:06 96 04/10/23 00:00 85 89 L 04/09/23 23:25 94 H 04/09/23 19:33 90 15 137/93 93 04/09/23 19:32 91 H 04/09/23 17:15 36.7 C 112 H 19 126/83 96 O2 Del Method O2 Flow Rate 04/10/23 02:20 Nasal Cannula 2 04/10/23 02:00 Room Air 2 04/10/23 00:06 Nasal Cannula 2 04/10/23 00:00 Room Air 04/09/23 23:25 04/09/23 19:33 04/09/23 19:32 04/09/23 17:15 Room Air Laboratory Results Laboratory Results WBC 6.83 K/ul (4.8-10.8) 04/09/23 18:20 RBC 4.90 M/uL (4.70-6.10) 04/09/23 18:20 Hgb 13.4 g/dl (14.0-18.0) L D 04/09/23 22:41 Hct 39.4 % (42.0-52.0) L 04/09/23 22:41 MCV 95.9 fL (80.0-100.0) 04/09/23 18:20 MCH 33.3 pg (25.0-34.0) 04/09/23 18:20 MCHC 34.7 g/dL (32.0-36.0) 04/09/23 18:20 RDW Std Deviation 42.9 fL (36.4-46.3) 04/09/23 18:20 RDW Coeff of Hang 12.2 % (11.5-14.5) 04/09/23 18:20 Plt Count 86 K/uL (130-400) L 04/09/23 18:20 MPV 10.7 fL (9.4-12.4) 04/09/23 18:20 Immature Gran % (Auto) 0.4 % 04/09/23 18:20 Neut % (Auto) 84.1 % 04/09/23 18:20 Lymph % (Auto) 7.6 % 04/09/23 18:20 Valley % (Auto) 6.3 % 04/09/23 18:20 Eos % (Auto) 1.0 % 04/09/23 18:20 Baso % (Auto) 0.6 % 04/09/23 18:20 Neut # (Auto) 5.74 K/uL (1.40-6.50) 04/09/23 18:20 Lymph # (Auto) 0.52 K/uL (1.20-3.40) L 04/09/23 18:20 Valley # (Auto) 0.43 K/uL (0.11-0.59) 04/09/23 18:20 Eos # (Auto) 0.07 K/uL (0.00-0.50) 04/09/23 18:20 Baso # (Auto) 0.04 K/uL (0.00-0.20) 04/09/23 18:20 Immature Gran # (Auto) 0.03 K/uL (0.01-0.20) 04/09/23 18:20 PT 14.4 Seconds (9.0-12.0) H 04/09/23 18:20 INR 1.3 (0.9-1.1) H 04/09/23 18:20 APTT 33 Seconds (21-31) H 04/09/23 18:20 PTT Ratio 1.2 04/09/23 18:20 Sodium 135 mmol/L (136-145) L 04/09/23 18:20 Potassium 3.3 mmol/L (3.5-5.1) L 04/09/23 18:20 Chloride 97 mmol/L (98-107) L 04/09/23 18:20 Carbon Dioxide 24 mmol/L (21-32) 04/09/23 18:20 Anion Gap 14 (3-11) H 04/09/23 18:20 BUN 9 mg/dl (6-23) 04/09/23 18:20 Creatinine 0.88 mg/dl (0.6-1.4) 04/09/23 18:20 Est Cr Clr Drug Dosing Not Reportable 04/09/23 18:20 Est GFR ( Amer) 116.9 ml/min 04/09/23 18:20 Est GFR (Non-Af Amer) 100.9 ml/min 04/09/23 18:20 BUN/Creatinine Ratio 10.2 (10-20) 04/09/23 18:20 Glucose 170 mg/dl (70-99(Fasting)) H 04/09/23 18:20 Calcium 8.6 mg/dl (8.6-10.3) 04/09/23 18:20 Magnesium 1.3 mg/dl (1.7-2.4) L 04/09/23 18:20 Total Bilirubin 7.9 mg/dl (0.2-1.0) H 04/09/23 18:20 AST 265 U/L (13-39) H 04/09/23 18:20 ALT 226 U/L (7-52) H 04/09/23 18:20 Alkaline Phosphatase 95 U/L (34-104) 04/09/23 18:20 Ammonia 35.0 umol/L (18-72) 04/09/23 18:20 Troponin I High Sens 8.1 pg/ml (0-20) 04/09/23 18:20 Total Protein 8.5 gm/dl (6.0-8.3) H 04/09/23 18:20 Albumin 4.0 gm/dl (3.4-5.0) 04/09/23 18:20 Globulin 4.5 gm/dl (2.5-4.0) H 04/09/23 18:20 Albumin/Globulin Ratio 0.9 (0.9-2) 04/09/23 18:20 Lipase 51 U/L (11-82) 04/09/23 18:20 Ethyl Alcohol mg/dL 193.6 mg/dl (<10.0) H 04/09/23 18:20 SARS-CoV-2 (PCR) NEGATIVE (Negative) 04/09/23 22:15 Influenza Type A (PCR) Negative (Neg) 04/09/23 22:15 Influenza Type B (PCR) Negative (Neg) 04/09/23 22:15 RSV (RT-PCR) Negative (Neg) 04/09/23 22:15 Blood Type A Positive 04/09/23 22:41 Antibody Screen NEGATIVE 04/09/23 22:41 Impressions Chest X-Ray 04/09/23 18:35 XR chest 1V not portable CLINICAL HISTORY: Shortness of breath. Vomiting. COMPARISON STUDY: Chest CT November 20, 2022. Chest radiograph and right rib series March 14, 2023. FINDINGS: Mild elevation the right hemidiaphragm is unchanged. Several healing right lower rib fractures are again noted. Lungs are clear. There is no pneumothorax or pleural effusion. Cardiac size is normal. Mediastinal contours are normal. There is no evidence for pulmonary edema. IMPRESSION: No acute cardiopulmonary findings. ACT 112: Negative or not required by law. Electronically signed by: Fidel Krishnamurthy M.D. 04/09/2023 7:31 PM Abdomen/Pelvis CT 04/09/23 19:08 Exam(s): CT ABDOMEN + PELVIS Without Contrast EXAM: CT Abdomen and Pelvis Without Intravenous Contrast CLINICAL HISTORY: Reason for exam: vomiting. TECHNIQUE: Axial computed tomography images of the abdomen and pelvis without intravenous contrast. CTDI is 23.12 mGy and DLP is 1312.72 mGy-cm. Automated exposure control was utilized for the study. A dose lowering technique was utilized adhering to the principles of ALARA. COMPARISON: No relevant prior studies available. FINDINGS: Lung bases: Unremarkable. No mass. No consolidation. ABDOMEN: Liver: Hepatic cirrhosis and steatosis. Gallbladder and bile ducts: Unremarkable. No calcified stones. No ductal dilation. Pancreas: Unremarkable. No ductal dilation. Spleen: Unremarkable. No splenomegaly. Adrenals: Unremarkable. No mass. Kidneys and ureters: Nonobstructing 6 LEFT lower pole renal stone. No hydronephrosis. Stomach and bowel: Unremarkable. No acute diverticulitis. No bowel obstruction. No free air. PELVIS: Appendix: No findings to suggest acute appendicitis. Bladder: Unremarkable. No stones. Reproductive: Unremarkable as visualized. ABDOMEN and PELVIS: Intraperitoneal space: See above. Bones/joints: Degenerative changes of the spine. No acute fracture. No dislocation. Soft tissues: Fat-containing umbilical hernia measures 4.1 x 4.4 cm. Vasculature: Atherosclerotic changes of the aorta. No abdominal aortic aneurysm. Lymph nodes: Unremarkable. No enlarged lymph nodes. IMPRESSION: 1. No acute diverticulitis. No bowel obstruction. No free air. 2. Hepatic cirrhosis and steatosis. 3. Nonobstructing 6 LEFT lower pole renal stone. 4. Fat-containing umbilical hernia measures 4.1 x 4.4 cm. Electronically signed by: Pedro Pablo Campo MD 04/09/23 19:53 PM Diagnostic Findings EKG as per my interpretation : Rate 110, sinus tachycardia, normal axis, incomplete RBBB, nonspecific T wave abnormalities
[2023-04-10] MEDS ORDERED: GABAPENTIN 1200MG ALCOHOL WITHDRAWAL LOAD PO STA (02:31)
[2023-04-10] MEDS ORDERED: nadoloL 40 MG TAB PO STA (02:34)
[2023-04-10] MEDS: LORazepam 1 MG in SYRINGE 0.5 ML IV PRN ×3 (02:42→23:45)
[2023-04-10] MEDS ORDERED: POTASSIUM CHLORIDE 20 MEQ in LACTATED RINGER'S 1,000 ML IV STA (02:44)
[2023-04-10] MEDS: PANTOprazole 40 MG in DEXTROSE 5% MINI-B 100 ML IV SCH ×2 (03:12→08:39)
[2023-04-10] MEDS ORDERED: busPIRone 5 MG TAB PO ONE (04:00)
[2023-04-10] MEDS ORDERED: LORazepam 1 MG/1 ML SYR ED Inj Use ONE ×2 (04:43→23:43)
[2023-04-10 05:17] LABS: Basophils # (auto) 0.02 K/uL (0.00-0.20); Basophils % (auto) 0.6 %; Eosinophils # (auto) 0.09 K/uL (0.00-0.50); Eosinophils % (auto) 2.7 %; Hematocrit (blood only) 39.1 % (42.0-52.0); Hemoglobin 13.2 g/dl (14.0-18.0); Immature Granulocytes # (auto) 0.01 K/uL (0.01-0.20); Immature Granulocytes % (auto) 0.3 %; Lymphocytes % (auto) 11.9 %; Mean Corpuscular Hemoglobin 32.8 pg (25.0-34.0); Mean Corpuscular Hgb Conc 33.8 g/dL (32.0-36.0); Mean Platelet Volume 10.8 fL (9.4-12.4); Monocytes # (auto) 0.39 K/uL (0.11-0.59); Monocytes % (auto) 11.6 %; Neutrophils # (auto) 2.44 K/uL (1.40-6.50); Neutrophils % (auto) 72.9 %; Platelet Count 48 K/uL (130-400); RDW Coefficient of Variation 12.3 % (11.5-14.5); RDW Standard Deviation 43.5 fL (36.4-46.3); Red Blood Count 4.03 M/uL (4.70-6.10); White Blood Count 3.35 K/ul (4.8-10.8)
[2023-04-10 05:43] LABS: Albumin Globulin Ratio 0.9 (0.9-2); Albumin Level 3.2 gm/dl (3.4-5.0); BUN Creatinine Ratio 10.8 (10-20); Calcium 7.5 mg/dl (8.6-10.3); Creatinine Clr Calc Pharmacy 114.1 ml/min; Est GFR (African American) 119.7 ml/min; Est GFR (Non-African American) 103.3 ml/min; Globulin 3.6 gm/dl (2.5-4.0); Magnesium 1.7 mg/dl (1.7-2.4); Potassium 3.1 mmol/L (3.5-5.1); Total Protein 6.8 gm/dl (6.0-8.3)
[2023-04-10] MEDS: GABAPENTIN 600 MG TAB PO SCH ×3 (07:21→20:20)
[2023-04-10] MEDS: MULTIVITAMIN TAB PO SCH (08:39)
[2023-04-10] MEDS: CITALOPRAM 20 MG TAB PO SCH (08:39)
[2023-04-10] MEDS: FOLIC ACID 1 MG TAB PO SCH (08:40)
[2023-04-10] MEDS: THIAMINE HCL 100 MG TAB PO SCH (08:40)
[2023-04-10] MEDS: ursodioL 300 MG CAP PO SCH ×2 (08:40→20:20)
--- NOTE | 2023-04-10 10:27 | Gastrointestinal Consultation ---
Date of Consultation April 10, 2023 Assessment & Plan (1) Alcoholic cirrhosis of liver: Pt is a 47 yo male w hx of ETOH cirrhosis, hx of esophageal varices, ongoing ETOH abuse, hx of ETOH seizure who presented yesterday w c/o n/v symptoms after eating burger at restaurant 4 days ago. He denies hematemesis or coffee ground emesis. Did have loose stools but yesterday solid BM w black colored stool. No abd pain. CT abd/pelvis wo acute changes. Hgb stable x 2 days wo BUN elevation. Less likely had UGI bleed related to varices. With his elevated LFTs, suspect he likely has ETOH hepatitis. Last EGD in 2021 - no varices. Hx of grade II esophageal varices seen on EGD in 2016, esophagitis and gastritis in 2020. MELD: 19 Maddrey Discriminant Function score: 18.9 - Check stool cx and Cdiff to r/o infections if diarrhea recurs - PPI IV BID coverage - Trend LFTs - Monitor blood ct and transfuse prn - No APAP >2g a day; avoid hepatotoxic meds - ETOH withdrawal protocol - Strict ETOH abstinence advised; could benefit from rehab program - F/U with primary application penetration tester (RUPERT Almanza) upon DC and consider referral back to [facility] for Liver Transplant evaluation (2) Nausea & vomiting: (3) UGIB (upper gastrointestinal bleed): Supervising Physician Co-Signing Physician Notes I saw and evaluated the patient, the patient is being admitted for treatment of alcoholic liver disease. He presented with a history of nausea and several episodes of emesis without hematemesis or coffee-ground emesis or melena. The patient does have a history of liver disease related to chronic alcohol abuse, he has been referred to rehab in the past but has not yet attended. His present MELD score is quite elevated at 20 which has a mortality rate of 3 to 4% over 90 days. Recommendations Daily labs Thiamine and folate replacement Monitor electrolytes to include magnesium and phosphorus Patient needs to embrace alcohol abstinence, patient should be referred to a treatment program Given MELD of 20 would also recommend a repeat referral to a transplant center History of Present Illness Reason for Consultation: GI bleed Requesting Physician: Dr. Carlin Bess Attending Physician: Dr. Sonja Gonzalez History of Present Illness Patient is a 47 years old male with history of alcoholic cirrhosis, history of esophageal varices, eradicated, chronic hyponatremia, ongoing alcohol abuse and previous history of alcohol withdrawal seizures who presented to the ED with complaints of nausea, vomiting for the last 4 days. Patient states that symptoms started on Friday after he ate burger for lunch at a restaurant. Burger was well done. After that he started having nausea and vomiting symptoms without any hematemesis or coffee-ground emesis. He denies abdominal pain. Had an episode of diarrhea a few days ago, yesterday had black stools however states that it was solid. Denies any rectal bleeding. Normal bowel movements since yesterday. Patient continues to drink alcohol, mostly liquor, last drank 4 days ago. He denies any travel or sick contacts otherwise. Hemodynamically stable. Did spike a temperature this morning of 37.8. Labs without leukocytosis. Hemoglobin stable at 13 yesterday and today. He is thrombocytopenic with platelet of 48. PT/INR 14.4, 1.3. No renal dysfunction. Sodium 134, potassium 3.1 LFTs: Total bilirubin 6, AST 218, ALT 166, alkaline phosphatase 85. Lipase 51. COVID-19, flu, RSV negative. Alcohol level 193.6. Chest x-ray unremarkable. CT abdomen and pelvis without contrast showed signs of cirrhosis, hepatic steatosis. EGD in 2016 showed grade II esophageal varices w PHG, EGD in 2021 no signs of varices. EGD and EUS 2020 showed esophagitis and gastritis He follows up with RUPERT Almanza for his cirrhosis care. MELD today is 19, previously 17. Was evaluated by [facility] Liver Transplant team years ago but not deemed a candidate due to low MELD score. [facility] Discriminant Function score: 18.9 Allergies Allergy/AdvReac Type Severity Reaction Status Date / Time aspirin AdvReac Unknown THINS Verified 04/09/23 20:22 BLOOD, NOSE BLEEDS Home Medications Medication Instructions Recorded Confirmed Type buspirone 5 mg tablet 5 mg PO BID 06/10/18 04/09/23 History nadolol 20 mg tablet 20 mg PO QAM 06/10/18 04/09/23 History potassium chloride 10 mEq 10 meq PO QAM 06/10/18 04/09/23 History tablet,extended release ursodiol 300 mg capsule 300 mg PO BID 06/10/18 04/09/23 History zolpidem 5 mg tablet (Ambien) 5 mg PO HS PRN Sleep 06/10/18 04/09/23 History pantoprazole 20 mg tablet,delayed 20 mg PO QAM 07/09/19 04/09/23 History release furosemide 20 mg tablet 20 mg PO QAM 11/14/22 04/09/23 History spironolactone 25 mg tablet 25 mg PO QAM 11/14/22 04/09/23 History folic acid 1 mg tablet 1 mg PO QAM #30 tabs 03/18/23 04/09/23 Rx magnesium oxide 400 mg (241.3 mg 400 mg PO QAM #30 tabs 03/18/23 04/09/23 Rx magnesium) tablet thiamine HCl (vitamin B1) 100 mg 100 mg PO QAM #30 tabs 03/18/23 04/09/23 Rx tablet citalopram 10 mg tablet 10 mg PO QAM 04/09/23 04/09/23 History Patient History Medical History Thrombocytopenia Ascites Portal hypertension Esophageal varices Alcoholic cirrhosis of liver History of macrocytic anemia History of alcohol abuse Surgical History History of esophagogastroduodenoscopy (EGD) Including procedures for esophageal varices banding History of tonsillectomy Family History Mother Diabetes Father Prostate cancer Other No family history of adverse response to anesthesia Social History Smoking Status: Never smoker Tobacco Type: Smokeless Tobacco (Dip or Chew) Second Hand Exposure: No; Do You Dip or Chew Tobacco: Yes; Hx Alcohol Use: Yes Alcohol type: hard liquor Hx Substance Use: No Preferred Language: Sammarinese Communication Ability: Effective Bag Filler Required: No Beliefs That Will Affect Care: None Current Living Situation: Alone Current Living Situation Comment: lives with parents Other Information That Helps Us Care for You: No Feels Safe at Home: Yes Safety Concerns: Feels Safe At This Time Assistive Devices: None Review of Systems Review of Systems: All systems reviewed & are unremarkable except as noted in HPI & below Physical Exam Constitutional: WD/WN, vitals as above well groomed, cooperative and + diaphoretic Eyes: PERRL, conjunctivae normal, anicteric sclerae (icteric sclera ) ENMT: external ear and nose normal, oropharynx normal Respiratory: normal respiratory effort, lungs clear to auscultation Cardiovascular: RRR, no murmur, no edema Gastrointestinal (Abdomen): normal bowel sounds, soft, nontender, no hepatosplenomegaly Skin: no rashes, warm and dry + jaundice Neurologic: Motor/Sensory: + tremor Psychiatric: A+Ox3, euthymic affect Lymphatic: no lymphedema Results & Data Vital Signs (Past 12 Hours) Vital Signs Temp Pulse Pulse Resp BP Pulse Ox Pulse Ox 04/10/23 08:47 04/10/23 08:47 37.8 C H 81 16 133/82 97 04/10/23 07:14 63 04/10/23 04:49 65 16 142/79 H 96 04/10/23 04:49 96 04/10/23 04:40 65 16 142/79 H 96 04/10/23 04:00 69 21 139/73 95 04/10/23 03:21 90 04/10/23 02:20 96 04/10/23 02:00 101 H 18 148/89 H 96 04/10/23 00:06 96 04/10/23 00:00 85 89 L 04/09/23 23:25 94 H O2 Del Method O2 Del Method O2 Flow Rate O2 Flow Rate 04/10/23 08:47 Nasal Cannula 2 04/10/23 08:47 Nasal Cannula 2 04/10/23 07:14 04/10/23 04:49 Nasal Cannula 04/10/23 04:49 Nasal Cannula 2 04/10/23 04:40 Nasal Cannula 04/10/23 04:00 Room Air 04/10/23 03:21 04/10/23 02:20 Nasal Cannula 2 04/10/23 02:00 Room Air 2 04/10/23 00:06 Nasal Cannula 2 04/10/23 00:00 Room Air 04/09/23 23:25 (1) Alcoholic cirrhosis of liver Ascites presence: unspecified Qualified Code(s): K70.30 - Alcoholic cirrhosis of liver without ascites
--- NOTE | 2023-04-10 12:47 | Electrocardiogram Report ---
Test Reason : Blood Pressure : / mmHG Vent. Rate : 108 BPM Atrial Rate : 108 BPM P-R Int : 112 ms QRS Dur : 094 ms QT Int : 336 ms P-R-T Axes : 059 075 035 degrees QTc Int : 450 ms Sinus tachycardia Nondiagnostic inferior Q waves Abnormal ECG When compared with ECG of 13-MAR-2023 11:32, Vent. rate has increased BY 46 BPM Confirmed by Guy Dejesus ([id number]) on 04/10/2023 12:47:09 PM Referred By: REFERRED SELF Confirmed By:Guy Dejesus
[2023-04-10 13:11] LABS: BUN Creatinine Ratio 11.7 (10-20); Calcium 7.8 mg/dl (8.6-10.3); Est GFR (African American) 123.5 ml/min; Est GFR (Non-African American) 106.6 ml/min; Potassium 3.8 mmol/L (3.5-5.1)
[2023-04-10 13:20] LABS: Hemoglobin 14.3 g/dl (14.0-18.0)
[2023-04-10 15:48] LABS: Appearance Urine Clear (Clear); Bacteria Urine Automated Negative (Negative); Blood Urine Trace (Negative); Color Urine Dark Yellow; Epithelial Cell Urine Auto 0-5 /lpf (0-5); Glucose Urine UA Negative (Negative); Ketones Urine Trace (Negative); Leukocyte Esterase Urine Trace (Negative); Nitrite Urine Positive (Negative); Protein Urine 1+ (Negative); RBC Urine Automated 0-4 /hpf (0-4); Urobilinogen Urine Negative (Negative)
[2023-04-10 15:54] LABS: Bilirubin Urine 3+ (Negative)
--- NOTE | 2023-04-10 15:58 | Hospitalist Progress Note ---
Date of Service April 10, 2023 Assessment & Plan (1) UGIB (upper gastrointestinal bleed): Plan: Melena H/O Grade II esophageal varices seen on EGD in 2016, esophagitis and gastritis in 2020. -EGD in 2021:no varices -Continue IV Protonix Monitor H&H and transfuse as needed Appreciate GI input IV Rocephin empirically Clear liquid diet today Alcoholic hepatitis Maddrey's discriminant function score 18.9 Recurrent admissions due to alcohol use Consult to quit drinking on multiple occasions Avoid hepatotoxic agents Monitor LFTs Diarrhea Check stool studies to rule out infection Monitor volume status Low-grade fever, cough Hypoxia Serology negative for COVID, influenza, RSV CXR:No acute cardiopulmonary findings. Check BioFire Alcohol use disorder Alcoholic cirrhosis H/O alcohol withdrawal seizures Continue gabapentin, thiamine, folic acid Monitor for withdrawal Behavioral health liaison consulted Chronic hyponatremia Due to alcohol use Hypokalemia Monitor and replete electrolytes as needed Mood disorder Continue home medications DVT Px: SCDs Re: GI bleed Code Status Full code Admission and Anticipated Discharge Date Admission Date: April 10, 2023 Subjective Patient is seen and examined at bedside No diarrhea today No acute bleeding issues Abdominal pain much improved Reports flatulence Also reports no nausea, vomiting, chest pain, dyspnea today Hb Stable Review of Systems Review of Systems: All systems reviewed & are unremarkable except as noted in Subjective Physical Exam Physical Exam: Physical Exam: Vitals signs as noted above General Appearance:Moderately built and nourished, no apparent distress Head: normocephalic, Atraumatic Eyes: normal inspection, EOMI Neck: supple, Trachea midline Respiratory/Chest: Normal breath sounds, CTA, No accessory muscle use Cardiovascular: S1, S2, No murmur Abdomen/GI:Soft, Non tender, Bowel sounds present Extremities/Musculoskeletal:normal inspection, no edema Neurologic/Psych:AAOX3, grossly no focal neurological deficits Skin: normal color, warm Results & Data Results & Data Vital Signs (Past 12 Hours) Vital Signs Temp Pulse Pulse Resp BP Pulse Ox Pulse Ox 04/10/23 15:38 62 04/10/23 08:47 04/10/23 08:47 37.8 C H 81 16 133/82 97 04/10/23 08:30 04/10/23 08:30 98 04/10/23 08:30 37.8 C H 81 16 138/72 98 04/10/23 07:14 63 04/10/23 04:49 65 16 142/79 H 96 04/10/23 04:49 96 04/10/23 04:40 65 16 142/79 H 96 04/10/23 04:00 69 21 139/73 95 O2 Del Method O2 Del Method O2 Flow Rate O2 Flow Rate 04/10/23 15:38 04/10/23 08:47 Nasal Cannula 2 04/10/23 08:47 Nasal Cannula 2 04/10/23 08:30 Nasal Cannula 2 04/10/23 08:30 Nasal Cannula 2 04/10/23 08:30 Nasal Cannula 2 04/10/23 07:14 04/10/23 04:49 Nasal Cannula 04/10/23 04:49 Nasal Cannula 2 04/10/23 04:40 Nasal Cannula 04/10/23 04:00 Room Air Laboratory Results Short CBC 04/09/23 04/09/23 04/10/23 Range/Units 18:20 22:41 04:56 WBC 6.83 3.35 L (4.8-10.8) K/ul Hgb 16.3 13.4 L D 13.2 L (14.0-18.0) g/dl Hct 47.0 39.4 L 39.1 L (42.0-52.0) % Plt Count 86 L 48 L (130-400) K/uL 04/10/23 Range/Units 12:38 WBC (4.8-10.8) K/ul Hgb 14.3 (14.0-18.0) g/dl Hct 41.0 L (42.0-52.0) % Plt Count (130-400) K/uL BMP 04/09/23 04/10/23 04/10/23 18:20 04:56 12:38 Sodium 135 L 134 L 132 L Potassium 3.3 L 3.1 L 3.8 D Chloride 97 L 101 100 Carbon Dioxide BUN 9 9 9 Creatinine 0.88 0.83 0.77 Glucose 170 H 124 H 124 H Calcium 8.6 7.5 L 7.8 L Liver Function 04/09/23 04/10/23 Range/Units 18:20 04:56 Total Bilirubin 7.9 H 6.0 H (0.2-1.0) mg/dl AST 265 H 218 H (13-39) U/L ALT 226 H 166 H (7-52) U/L Alkaline Phosphatase 95 85 (34-104) U/L Albumin 4.0 3.2 L (3.4-5.0) gm/dl
[2023-04-10] MEDS: LORazepam 2 MG in SYRINGE 1 ML IV PRN (17:10)
[2023-04-10 17:44] LABS: Adenovirus PCR Not Detected (NotDetected); Bordetella parapertussis PCR Not Detected (NotDetected); Bordetella pertussis PCR Not Detected (NotDetected); Chlamydia pneumoniae PCR Not Detected (NotDetected); Coronavirus 229E PCR Not Detected (NotDetected); Coronavirus CoV-2 (COVID19)PCR Not Detected (NotDetected); Coronavirus HKU1 PCR Not Detected (NotDetected); Coronavirus NL63 PCR Not Detected (NotDetected); Coronavirus OC43PCR Not Detected (NotDetected); Human Metapneumovirus PCR Not Detected (NotDetected); Influenza A PCR Not Detected (NotDetected); Influenza B PCR Not Detected (NotDetected); Mycoplasma pneumoniae PCR Not Detected (NotDetected); Parainfluenza Virus 1 PCR Not Detected (NotDetected); Parainfluenza Virus 2 PCR Not Detected (NotDetected); Parainfluenza Virus 3 PCR Not Detected (NotDetected); Parainfluenza Virus 4 PCR Not Detected (NotDetected); Respiratory Syncytial VirusPCR Not Detected (NotDetected); Rhinovirus/Enterovirus PCR Not Detected (NotDetected)
[2023-04-10 18:36] LABS: Cdiff Antigen Positive; Cdiff Toxin A+B Negative Cdiff Toxin (Negative); Cdiff Toxin B Gene (2yr or >) Positive Cdiff Gene (Neg)
[2023-04-10 18:38] LABS: Adenovirus F 40/41 PCR Not Detected (NotDetected); Astrovirus PCR Not Detected (NotDetected); Campylobacter PCR Not Detected (NotDetected); Cryptosporidium PCR Not Detected (NotDetected); Cyclospora cayetanensis PCR Not Detected (NotDetected); Entamoeba histolytica PCR Not Detected (NotDetected); Enteroaggregative E.coli(EAEC) Not Detected (NotDetected); Enteropathogenic E.coli (EPEC) Not Detected (NotDetected); Enterotoxigenic E.coli (ETEC) Not Detected (NotDetected); Giardia lamblia PCR Not Detected (NotDetected); Norovirus GI/GII PCR Not Detected (NotDetected); Plesiomonas shigelloides PCR Not Detected (NotDetected); Rotavirus A PCR Not Detected (NotDetected); Salmonella PCR Not Detected (NotDetected); Sapovirus PCR Not Detected (NotDetected); Shiga-like Toxin E.coli (STEC) Not Detected (NotDetected); Shigella/Enteroinvasive E.coli Not Detected (NotDetected); Vibrio cholerae PCR Not Detected (NotDetected); Vibrio species PCR Not Detected (NotDetected); Yersinia enterocolitica PCR Not Detected (NotDetected)
[2023-04-10] MEDS: PANTOprazole 40 MG in SYRINGE 0 ML IV SCH (20:20)
[2023-04-10] MEDS: busPIRone 5 MG TAB PO SCH (20:21)
[2023-04-10 21:17] LABS: Hematocrit (blood only) 36.8 % (42.0-52.0)
[2023-04-11] MEDS: GABAPENTIN 600 MG TAB PO SCH ×3 (03:35→23:37)
[2023-04-11 04:08] LABS: Hematocrit (blood only) 37.2 % (42.0-52.0); Mean Corpuscular Hemoglobin 33.5 pg (25.0-34.0); Mean Corpuscular Hgb Conc 34.9 g/dL (32.0-36.0); Mean Corpuscular Volume 95.9 fL (80.0-100.0); Mean Platelet Volume 10.9 fL (9.4-12.4); Platelet Count 46 K/uL (130-400); RDW Coefficient of Variation 12.1 % (11.5-14.5); RDW Standard Deviation 41.9 fL (36.4-46.3); Red Blood Count 3.88 M/uL (4.70-6.10); White Blood Count 2.02 K/ul (4.8-10.8)
[2023-04-11 04:16] LABS: INR 1.4 (0.9-1.1); Prothrombin Time 14.6 Seconds (9.0-12.0)
[2023-04-11 04:27] LABS: Albumin Level 2.9 gm/dl (3.4-5.0); Bilirubin,Total 6.4 mg/dl (0.2-1.0); Calcium 7.6 mg/dl (8.6-10.3); Magnesium 1.6 mg/dl (1.7-2.4); Potassium 3.5 mmol/L (3.5-5.1)
[2023-04-11 04:33] LABS: Albumin Globulin Ratio 0.9 (0.9-2); BUN Creatinine Ratio 12.5 (10-20); Est GFR (African American) 133.3 ml/min; Globulin 3.4 gm/dl (2.5-4.0); Total Protein 6.3 gm/dl (6.0-8.3)
[2023-04-11] MEDS ORDERED: cefTRIAXone SODIUM 2,000 MG in DEXTROSE 5 % MINI-B 50 ML IV SCH (06:00)
[2023-04-11] MEDS: PROMETHAZINE HCL 6.25 MG in SODIUM CHLORIDE 0.9% 50 ML IV PRN (06:02)
--- NOTE | 2023-04-11 08:25 | Gastroenterology Progress Note ---
Date of Service April 11, 2023 Assessment & Plan (1) Alcoholic cirrhosis of liver: Plan: Pt is a 47 yo male w hx of ETOH cirrhosis, hx of esophageal varices, ongoing ETOH abuse, hx of ETOH seizure who presented yesterday w c/o n/v symptoms after eating burger at restaurant 4 days ago. He denies hematemesis or coffee ground emesis. Did have loose stools but yesterday solid BM w black colored stool. No abd pain. CT abd/pelvis wo acute changes. Hgb stable x 2 days wo BUN elevation. Less likely had UGI bleed related to varices. With his elevated LFTs, suspect he likely has ETOH hepatitis, ETOh withdrawal symptoms. Last EGD in 2021 - no varices. Hx of grade II esophageal varices seen on EGD in 2016, esophagitis and gastritis in 2020. MELD: 19 [facility] Discriminant Function score: 18.9 - Check stool cx and Cdiff to r/o infections if diarrhea recurs -> Cdiff gene (+), toxin (-). - PPI IV BID coverage - Trend LFTs - Monitor blood ct and transfuse prn - No APAP >2g a day; avoid hepatotoxic meds - ETOH withdrawal protocol - Strict ETOH abstinence advised; could benefit from rehab program - F/U with primary pantograph ii engraver (RUPERT Almanza) upon DC and consider referral back to [facility] for Liver Transplant evaluation - GI to sign off; pls recall prn (2) Nausea & vomiting: (3) UGIB (upper gastrointestinal bleed): Admission and Anticipated Discharge Date Admission Date: April 10, 2023 Supervising Physician Co-Signing Physician Notes Attending attestation I have seen, examined this patient, and agree with the findings and above by our mid-level provider RUPERT Palmer, with the following additions: Improved, ok for advancement of diet Subjective Pt stuporous, took multiple attempts to wake him up. Received Ativan last night. He denies abd pain, n/v, diarrhea. Review of Systems Review of Systems: All systems reviewed & are unremarkable except as noted in HPI & below Physical Exam Constitutional: WD/WN, vitals as above well groomed, cooperative and + diaphoretic Eyes: PERRL, conjunctivae normal, anicteric sclerae (icteric sclera ) ENMT: external ear and nose normal, oropharynx normal Respiratory: normal respiratory effort, lungs clear to auscultation Cardiovascular: RRR, no murmur, no edema Gastrointestinal (Abdomen): normal bowel sounds, soft, nontender, no h epatosplenomegaly Skin: no rashes, warm and dry + jaundice Neurologic: Motor/Sensory: no tremor and no asterixis Psychiatric: Stuporous, oriented mostly to self (received ativan last night). Lymphatic: no lymphedema Results & Data Vital Signs (Past 12 Hours) Vital Signs Temp Pulse Pulse Resp BP Pulse Ox O2 Del Method 04/11/23 07:47 65 04/11/23 05:43 37.5 C 64 16 115/71 96 Room Air 04/11/23 01:42 36.8 C 63 16 112/57 L 93 Room Air 04/10/23 23:45 Room Air 04/10/23 23:37 37.7 C H 69 18 130/83 95 Room Air 04/10/23 21:25 63 (1) Alcoholic cirrhosis of liver Ascites presence: unspecified Qualified Code(s): K70.30 - Alcoholic cirrhosis of liver without ascites
[2023-04-11] MEDS: CITALOPRAM 20 MG TAB PO SCH (09:24)
[2023-04-11] MEDS: ursodioL 300 MG CAP PO SCH ×2 (09:24→21:11)
[2023-04-11] MEDS: FOLIC ACID 1 MG TAB PO SCH (09:24)
[2023-04-11] MEDS: PANTOprazole 40 MG in SYRINGE 0 ML IV SCH ×2 (09:24→21:12)
[2023-04-11] MEDS: busPIRone 5 MG TAB PO SCH ×2 (09:24→21:12)
[2023-04-11] MEDS: THIAMINE HCL 100 MG TAB PO SCH (09:24)
[2023-04-11] MEDS: MULTIVITAMIN TAB PO SCH (09:24)
[2023-04-11] MEDS: nadoloL 40 MG TAB PO SCH (09:24)
[2023-04-11] MEDS ORDERED: MAGNESIUM SULFATE / D5W 1 GM/100 ML BAG IV ONE (10:27)
[2023-04-11] MEDS: LORazepam 1 MG in SYRINGE 0.5 ML IV PRN ×2 (12:27→22:55)
[2023-04-11] MEDS: VANCOMYCIN HCL 125 MG/2.5ML SOLN PO SCH ×2 (17:36→23:37)
[2023-04-11] MEDS: CHERRY SYRUP 5 ML UDP PO SCH ×2 (17:36→23:37)
--- NOTE | 2023-04-11 18:35 | Hospitalist Progress Note ---
Date of Service April 11, 2023 Assessment & Plan (1) UGIB (upper gastrointestinal bleed): Plan: Melena H/O Grade II esophageal varices seen on EGD in 2016, esophagitis and gastritis in 2020. -EGD in 2021:no varices -Continue IV Protonix Monitor H&H and transfuse as needed Appreciate GI input IV Rocephin discontinue Advance to full liquid diet today Alcoholic hepatitis Maddrey's discriminant function score 18.9 Recurrent admissions due to alcohol use Consult to quit drinking on multiple occasions Avoid hepatotoxic agents Monitor LFTs Diarrhea Stool studies positive for C. difficile gene Empirically started on p.o. vancomycin Monitor volume status Low-grade fever, cough Hypoxia Serology negative for COVID, influenza, RSV CXR:No acute cardiopulmonary findings. Negative BioFire Fever resolved Alcohol use disorder Alcoholic cirrhosis H/O alcohol withdrawal seizures Continue gabapentin, thiamine, folic acid Monitor for withdrawal Behavioral health liaison consulted Chronic hyponatremia Due to alcohol use Hypokalemia Monitor and replete electrolytes as needed Mood disorder Continue home medications DVT Px: SCDs Re: GI bleed Code Status Full code Admission and Anticipated Discharge Date Admission Date: April 10, 2023 Subjective Patient is seen and examined at bedside States having brown liquid stools Also reports tremor No other complaints Denies chest pain, dyspnea, nausea, vomiting, abdominal pain Review of Systems Review of Systems: All systems reviewed & are unremarkable except as noted in Subjective Physical Exam Physical Exam: Physical Exam: Vitals signs as noted above General Appearance:Moderately built and nourished, no apparent distress Head: normocephalic, Atraumatic Eyes: normal inspection, EOMI Neck: supple, Trachea midline Respiratory/Chest: Normal breath sounds, CTA, No accessory muscle use Cardiovascular: S1, S2, No murmur Abdomen/GI:Soft, Non tender, Bowel sounds present Extremities/Musculoskeletal:normal inspection, no edema Neurologic/Psych:AAOX3, grossly no focal neurological deficits Skin: normal color, warm Results & Data Results & Data Vital Signs (Past 12 Hours) Vital Signs Temp Pulse Pulse Resp BP Pulse Ox Pulse Ox 04/11/23 18:27 36.9 C 61 18 135/89 95 04/11/23 15:00 37.0 C 61 20 135/84 98 04/11/23 13:53 36.9 C 71 18 141/93 H 98 01/12/24 11:53 36.8 C 73 20 136/93 96 04/11/23 11:00 95 04/11/23 09:22 56 L 19 124/78 98 04/11/23 07:47 65 O2 Del Method O2 Del Method 04/11/23 18:27 Room Air 04/11/23 15:00 Room Air 04/11/23 13:53 Room Air 04/11/23 11:53 Room Air 04/11/23 11:00 Room Air 04/11/23 09:22 Room Air 04/11/23 07:47 Laboratory Results Short CBC 04/10/23 04/11/23 Range/Units 20:42 03:34 WBC 2.02 L (4.8-10.8) K/ul Hgb 13.0 L 13.0 L (14.0-18.0) g/dl Hct 36.8 L 37.2 L (42.0-52.0) % Plt Count 46 L (130-400) K/uL BMP 04/11/23 03:34 Sodium 134 L Potassium 3.5 Chloride 102 Carbon Dioxide 25 BUN 8 Creatinine 0.64 Glucose 88 Calcium 7.6 L Liver Function 04/11/23 Range/Units 03:34 Total Bilirubin 6.4 H (0.2-1.0) mg/dl AST 201 H (13-39) U/L ALT 141 H (7-52) U/L Alkaline Phosphatase 78 (34-104) U/L Albumin 2.9 L (3.4-5.0) gm/dl
[2023-04-11] MEDS: ZOLPIDEM TARTRATE 5 MG TAB PO PRN (21:11)
[2023-04-11] MEDS: MAGNESIUM CHLORIDE W/CALCIUM 64MG DELAYED REL TAB PO SCH (21:12)
[2023-04-11] MEDS: LOPERAMIDE HCL 2 MG CAP PO PRN (21:26)
[2023-04-12] MEDS: LORazepam 2 MG in SYRINGE 1 ML IV PRN (05:42)
[2023-04-12] MEDS: VANCOMYCIN HCL 125 MG/2.5ML SOLN PO SCH ×4 (05:43→22:41)
[2023-04-12] MEDS: CHERRY SYRUP 5 ML UDP PO SCH ×4 (05:43→22:41)
[2023-04-12 06:47] LABS: Hematocrit (blood only) 38.2 % (42.0-52.0); Hemoglobin 13.3 g/dl (14.0-18.0); Mean Corpuscular Hemoglobin 33.6 pg (25.0-34.0); Mean Corpuscular Hgb Conc 34.8 g/dL (32.0-36.0); Mean Corpuscular Volume 96.5 fL (80.0-100.0); Platelet Count 52 K/uL (130-400); RDW Coefficient of Variation 12.2 % (11.5-14.5); RDW Standard Deviation 43.3 fL (36.4-46.3); Red Blood Count 3.96 M/uL (4.70-6.10); White Blood Count 2.25 K/ul (4.8-10.8)
[2023-04-12 06:57] LABS: Albumin Globulin Ratio 0.8 (0.9-2); Albumin Level 2.8 gm/dl (3.4-5.0); BUN Creatinine Ratio 11.9 (10-20); Bilirubin,Total 4.3 mg/dl (0.2-1.0); Calcium 7.8 mg/dl (8.6-10.3); Est GFR (African American) 130.8 ml/min; Est GFR (Non-African American) 112.8 ml/min; Globulin 3.6 gm/dl (2.5-4.0); Magnesium 1.5 mg/dl (1.7-2.4); Potassium 3.4 mmol/L (3.5-5.1); Total Protein 6.4 gm/dl (6.0-8.3)
[2023-04-12] MEDS: busPIRone 5 MG TAB PO SCH ×2 (07:51→21:31)
[2023-04-12] MEDS: CITALOPRAM 20 MG TAB PO SCH (07:52)
[2023-04-12] MEDS: MAGNESIUM CHLORIDE W/CALCIUM 64MG DELAYED REL TAB PO SCH ×2 (07:53→21:31)
[2023-04-12] MEDS: nadoloL 40 MG TAB PO SCH (07:54)
[2023-04-12] MEDS: FOLIC ACID 1 MG TAB PO SCH (07:54)
[2023-04-12] MEDS: THIAMINE HCL 100 MG TAB PO SCH (07:55)
[2023-04-12] MEDS: MULTIVITAMIN TAB PO SCH (07:55)
[2023-04-12] MEDS: PANTOprazole 40 MG in SYRINGE 0 ML IV SCH ×2 (07:56→21:31)
[2023-04-12] MEDS: ursodioL 300 MG CAP PO SCH ×2 (07:56→21:31)
[2023-04-12] MEDS: PROMETHAZINE HCL 6.25 MG in SODIUM CHLORIDE 0.9% 50 ML IV PRN (08:50)
[2023-04-12] MEDS: LORazepam 1 MG in SYRINGE 0.5 ML IV PRN ×3 (08:50→21:58)
[2023-04-12] MEDS ORDERED: POTASSIUM CHLORIDE CRTAB 20 MEQ TABCR PO ONE (09:42)
[2023-04-12] MEDS: MAGNESIUM SULFATE / D5W 1 GM/100 ML BAG IV SCH ×2 (12:48→15:13)
[2023-04-12] MEDS: GABAPENTIN 600 MG TAB PO SCH (13:23)
--- NOTE | 2023-04-12 17:40 | Hospitalist Progress Note ---
Date of Service April 12, 2023 Assessment & Plan (1) UGIB (upper gastrointestinal bleed): Plan: Melena H/O Grade II esophageal varices seen on EGD in 2016, esophagitis and gastritis in 2020. -EGD in 2021:no varices -Continue IV Protonix Monitor H&H and transfuse as needed Appreciate GI input IV Rocephin discontinued Hb stable Advance diet today Transition to p.o. Protonix tomorrow if Hb Stable Alcoholic hepatitis Maddrey's discriminant function score 18.9 Recurrent admissions due to alcohol use Consult to quit drinking on multiple occasions Avoid hepatotoxic agents Monitor LFTs Diarrhea Stool studies positive for C. difficile gene Empirically started on p.o. vancomycin Monitor volume status Low-grade fever, cough Hypoxia Serology negative for COVID, influenza, RSV CXR:No acute cardiopulmonary findings. Negative BioFire Fever resolved Alcohol use disorder Alcoholic cirrhosis H/O alcohol withdrawal seizures Continue gabapentin, thiamine, folic acid Monitor for withdrawal Behavioral health liaison consulted Chronic hyponatremia Due to alcohol use Hypokalemia Monitor and replete electrolytes as needed Mood disorder Continue home medications DVT Px: SCDs Re: GI bleed Code Status Full code Admission and Anticipated Discharge Date Admission Date: April 10, 2023 Subjective Patient is seen and examined at bedside Reports poor sleep overnight No diarrhea today Denies any bleeding issues Tolerates diet Denies chest pain, dyspnea, nausea, vomiting, abdominal pain Review of Systems Review of Systems: All systems reviewed & are unremarkable except as noted in Subjective Physical Exam Physical Exam: Physical Exam: Vitals signs as noted above General Appearance:Moderately built and nourished, no apparent distress Head: normocephalic, Atraumatic Eyes: normal inspection, EOMI Neck: supple, Trachea midline Respiratory/Chest: Normal breath sounds, CTA, No accessory muscle use Cardiovascular: S1, S2, No murmur Abdomen/GI:Soft, Non tender, Bowel sounds present Extremities/Musculoskeletal:normal inspection, no edema Neurologic/Psych:AAOX3, grossly no focal neurological deficits Skin: normal color, warm Results & Data Results & Data Vital Signs (Past 12 Hours) Vital Signs Temp Pulse Pulse Resp BP BP Pulse Ox 04/12/23 16:00 57 L 04/12/23 15:27 37.0 C 60 21 124/81 97 04/12/23 11:10 36.6 C 53 L 21 132/80 96 04/12/23 11:00 04/12/23 08:00 63 04/12/23 07:47 37.1 C 63 22 132/79 96 Pulse Ox O2 Del Method O2 Del Method 04/12/23 16:00 04/12/23 15:27 Room Air 04/12/23 11:10 Room Air 04/12/23 11:00 96 Room Air 04/12/23 08:00 04/12/23 07:47 Room Air Laboratory Results Short CBC 04/12/23 Range/Units 06:22 WBC 2.25 L (4.8-10.8) K/ul Hgb 13.3 L (14.0-18.0) g/dl Hct 38.2 L (42.0-52.0) % Plt Count 52 L (130-400) K/uL BMP 04/12/23 06:22 Sodium 135 L Potassium 3.4 L Chloride 103 Carbon Dioxide 25 BUN 8 Creatinine 0.67 Glucose 99 Calcium 7.8 L Liver Function 04/12/23 Range/Units 06:22 Total Bilirubin 4.3 H (0.2-1.0) mg/dl AST 136 H (13-39) U/L ALT 110 H (7-52) U/L Alkaline Phosphatase 84 (34-104) U/L Albumin 2.8 L (3.4-5.0) gm/dl
[2023-04-12] MEDS: ZOLPIDEM TARTRATE 5 MG TAB PO PRN (21:25)
[2023-04-12] MEDS: LOPERAMIDE HCL 2 MG CAP PO PRN (22:41)
[2023-04-13 06:24] LABS: Hematocrit (blood only) 41.1 % (42.0-52.0); Mean Corpuscular Hemoglobin 32.9 pg (25.0-34.0); Mean Corpuscular Hgb Conc 34.1 g/dL (32.0-36.0); Mean Corpuscular Volume 96.7 fL (80.0-100.0); Mean Platelet Volume 12.1 fL (9.4-12.4); Platelet Count 50 K/uL (130-400); RDW Coefficient of Variation 12.5 % (11.5-14.5); RDW Standard Deviation 44.6 fL (36.4-46.3); Red Blood Count 4.25 M/uL (4.70-6.10); White Blood Count 2.58 K/ul (4.8-10.8)
[2023-04-13 06:43] LABS: Albumin Level 2.9 gm/dl (3.4-5.0); Bilirubin,Total 3.1 mg/dl (0.2-1.0); Magnesium 1.7 mg/dl (1.7-2.4); Potassium 3.7 mmol/L (3.5-5.1)
[2023-04-13] MEDS: VANCOMYCIN HCL 125 MG/2.5ML SOLN PO SCH ×3 (06:43→16:44)
[2023-04-13] MEDS: CHERRY SYRUP 5 ML UDP PO SCH ×3 (06:43→17:12)
[2023-04-13 06:49] LABS: Albumin Globulin Ratio 0.8 (0.9-2); BUN Creatinine Ratio 12.5 (10-20); Creatinine Clr Calc Pharmacy 147.6 ml/min; Est GFR (African American) 133.3 ml/min; Globulin 3.8 gm/dl (2.5-4.0); Total Protein 6.7 gm/dl (6.0-8.3)
[2023-04-13] MEDS: ursodioL 300 MG CAP PO SCH ×2 (09:09→21:14)
[2023-04-13] MEDS: busPIRone 5 MG TAB PO SCH ×2 (09:09→21:14)
[2023-04-13] MEDS: MAGNESIUM CHLORIDE W/CALCIUM 64MG DELAYED REL TAB PO SCH ×2 (09:09→21:14)
[2023-04-13] MEDS: CITALOPRAM 20 MG TAB PO SCH (09:10)
[2023-04-13] MEDS: nadoloL 40 MG TAB PO SCH (09:10)
[2023-04-13] MEDS: PANTOprazole 40 MG in SYRINGE 0 ML IV SCH (09:10)
[2023-04-13] MEDS: MULTIVITAMIN TAB PO SCH (09:12)
[2023-04-13] MEDS: FOLIC ACID 1 MG TAB PO SCH (09:12)
[2023-04-13] MEDS: THIAMINE HCL 100 MG TAB PO SCH (09:12)
[2023-04-13] MEDS: PROMETHAZINE HCL 6.25 MG in SODIUM CHLORIDE 0.9% 50 ML IV PRN (09:13)
[2023-04-13] MEDS: LORazepam 1 MG in SYRINGE 0.5 ML IV PRN ×2 (09:13→18:24)
[2023-04-13] MEDS ORDERED: GABAPENTIN 600 MG TAB PO SCH (12:00)
--- NOTE | 2023-04-13 15:47 | Hospitalist Progress Note ---
Date of Service April 13, 2023 Assessment & Plan (1) UGIB (upper gastrointestinal bleed): Plan: Melena H/O Grade II esophageal varices seen on EGD in 2016, esophagitis and gastritis in 2020. -EGD in 2021:no varices -Continue IV Protonix>> transition to p.o. Protonix Monitor H&H and transfuse as needed Appreciate GI input IV Rocephin discontinued Hb stable Alcoholic hepatitis Maddrey's discriminant function score 18.9 Recurrent admissions due to alcohol use Consult to quit drinking on multiple occasions Avoid hepatotoxic agents Monitor LFTs LFTs trending down Diarrhea Stool studies positive for C. difficile gene Empirically started on p.o. vancomycin Monitor volume status Still has diarrhea--improving Low-grade fever, cough Hypoxia Serology negative for COVID, influenza, RSV CXR:No acute cardiopulmonary findings. Negative BioFire Fever resolved No clear source of infection Alcohol use disorder Alcoholic cirrhosis H/O alcohol withdrawal seizures Continue Thiamine, folic acid Completed gabapentin protocol Monitor for withdrawal Behavioral health liaison consulted Chronic hyponatremia Due to alcohol use Hypokalemia Monitor and replete electrolytes as needed Sodium levels improved Mood disorder Continue home medications DVT Px: SCDs Re: GI bleed Code Status Full code Admission and Anticipated Discharge Date Admission Date: April 10, 2023 Subjective Patient is seen and examined at bedside Reports nausea today Also has some diarrhea Denies chest pain, dyspnea, nausea, vomiting, abdominal pain No recurrence of bleeding issues Review of Systems Review of Systems: All systems reviewed & are unremarkable except as noted in Subjective Physical Exam Physical Exam: Physical Exam: Vitals signs as noted above General Appearance:Moderately built and nourished, no apparent distress Head: normocephalic, Atraumatic Eyes: normal inspection, EOMI Neck: supple, Trachea midline Respiratory/Chest: Normal breath sounds, CTA, No accessory muscle use Cardiovascular: S1, S2, No murmur Abdomen/GI:Soft, Non tender, Bowel sounds present Extremities/Musculoskeletal:normal inspection, no edema Neurologic/Psych:AAOX3, grossly no focal neurological deficits Skin: normal color, warm Results & Data Results & Data Vital Signs (Past 12 Hours) Vital Signs Temp Pulse Resp BP BP Pulse Ox O2 Del Method 04/13/23 15:26 36.8 C 60 18 107/69 95 Room Air 04/13/23 11:36 36.7 C 62 18 124/83 96 Room Air 04/13/23 07:39 36.8 C 62 18 110/75 95 Room Air Laboratory Results Short CBC 04/13/23 Range/Units 05:22 WBC 2.58 L (4.8-10.8) K/ul Hgb 14.0 (14.0-18.0) g/dl Hct 41.1 L (42.0-52.0) % Plt Count 50 L (130-400) K/uL BMP 04/13/23 05:22 Sodium 136 Potassium 3.7 Chloride 105 Carbon Dioxide 21 BUN 8 Creatinine 0.64 Glucose 93 Calcium 8.0 L Liver Function 04/13/23 Range/Units 05:22 Total Bilirubin 3.1 H (0.2-1.0) mg/dl AST 110 H (13-39) U/L ALT 93 H (7-52) U/L Alkaline Phosphatase 93 (34-104) U/L Albumin 2.9 L (3.4-5.0) gm/dl
[2023-04-13] MEDS: PANTOprazole 40 MG TAB PO SCH (21:14)
[2023-04-13] MEDS: ZOLPIDEM TARTRATE 5 MG TAB PO PRN (21:14)
[2023-04-14] MEDS: CHERRY SYRUP 5 ML UDP PO SCH ×3 (00:01→12:35)
[2023-04-14] MEDS: VANCOMYCIN HCL 125 MG/2.5ML SOLN PO SCH ×3 (00:01→12:35)
[2023-04-14] MEDS: LORazepam 1 MG in SYRINGE 0.5 ML IV PRN (02:23)
[2023-04-14] MEDS: CITALOPRAM 20 MG TAB PO SCH (10:10)
[2023-04-14] MEDS: MAGNESIUM CHLORIDE W/CALCIUM 64MG DELAYED REL TAB PO SCH (10:10)
[2023-04-14] MEDS: MULTIVITAMIN TAB PO SCH (10:10)
[2023-04-14] MEDS: ursodioL 300 MG CAP PO SCH (10:11)
[2023-04-14] MEDS: FOLIC ACID 1 MG TAB PO SCH (10:11)
[2023-04-14] MEDS: busPIRone 5 MG TAB PO SCH (10:11)
[2023-04-14] MEDS: THIAMINE HCL 100 MG TAB PO SCH (10:11)
[2023-04-14] MEDS: nadoloL 40 MG TAB PO SCH (10:12)
[2023-04-14] MEDS: PANTOprazole 40 MG TAB PO SCH (10:56)
--- NOTE | 2023-04-14 13:20 | Hospitalist Progress Note ---
Date of Service April 14, 2023 Assessment & Plan (1) UGIB (upper gastrointestinal bleed): Plan: Melena H/O Grade II esophageal varices seen on EGD in 2016, esophagitis and gastritis in 2020. -EGD in 2021:no varices -Continue IV Protonix>> transition to p.o. Protonix Monitor H&H and transfuse as needed Appreciate GI input IV Rocephin discontinued Hb stable Plan to discharge home today Alcoholic hepatitis Janettcici's discriminant function score 18.9 Recurrent admissions due to alcohol use Consult to quit drinking on multiple occasions Avoid hepatotoxic agents Monitor LFTs LFTs trended down Diarrhea Stool studies positive for C. difficile gene Empirically started on p.o. vancomycin Monitor volume status Resolved Low-grade fever, cough Hypoxia Serology negative for COVID, influenza, RSV CXR:No acute cardiopulmonary findings. Negative BioFire Fever resolved No clear source of infection Resolved Alcohol use disorder Alcoholic cirrhosis H/O alcohol withdrawal seizures Continue Thiamine, folic acid Completed gabapentin protocol Monitor for withdrawal Behavioral health liaison consulted Refuses drug rehab placement Chronic hyponatremia Due to alcohol use Hypokalemia Monitor and replete electrolytes as needed Sodium levels normalized Mood disorder Continue home medications DVT Px: SCDs Re: GI bleed Code Status Full code Admission and Anticipated Discharge Date Admission Date: April 10, 2023 Subjective Patient is seen and examined at bedside No new complaints Diarrhea resolved Denies chest pain, dyspnea, nausea, vomiting, abdominal pain No recurrence of bleeding issues Review of Systems Review of Systems: All systems reviewed & are unremarkable except as noted in Subjective Physical Exam Physical Exam: Physical Exam: Vitals signs as noted above General Appearance:Moderately built and nourished, no apparent distress Head: normocephalic, Atraumatic Eyes: normal inspection, EOMI Neck: supple, Trachea midline Respiratory/Chest: Normal breath sounds, CTA, No accessory muscle use Cardiovascular: S1, S2, No murmur Abdomen/GI:Soft, Non tender, Bowel sounds present Extremities/Musculoskeletal:normal inspection, no edema Neurologic/Psych:AAOX3, grossly no focal neurological deficits Skin: normal color, warm Results & Data Results & Data Vital Signs (Past 12 Hours) Vital Signs Temp Pulse Resp BP Pulse Ox O2 Del Method 04/14/23 11:07 36.7 C 57 L 18 123/77 94 Room Air 04/14/23 07:23 36.8 C 64 18 118/76 94 Room Air 04/14/23 03:43 36.9 C 60 16 133/78 95 Room Air 04/14/23 02:14 36.5 C 58 L 19 136/87 94 Room Air
--- NOTE | 2023-04-14 13:55 | Discharge Summary ---
Date of Service April 14, 2023 Admission HPI Per Admitting Provider History obtained from patient and records. Medical history significant for alcoholic cirrhosis, history of esophageal varices, chronic hyponatremia, past history of alcohol withdrawal seizures, ongoing alcohol abuse. Recent confinement last month for alcohol withdrawal and right 10th rib fracture. Patient started drinking again last week. 4 days ago, patient experienced burning epigastric pain followed by bilious emesis. Dry cough with some shortness of breath. Denies chest pain. Denies headache symptoms. Denies OTC NSAID intake. Melanotic stools noted yesterday. Patient consulted ER for evaluation. IV Protonix administered at the ER. Medical History as above 2021 EGD no bendable varices seen. Normal stomach/duodenum. 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 Admission Exam Per Admitting Provider GENERAL: uncomfortable, pleasant, tremulous, no respiratory distress SKIN: Normal color, warm HEENT: [place] palpebral conjunctivae, no ptosis, dry buccal mucosa NECK : Supple, no tenderness CHEST : CTA, no tenderness HEART : RRR, no obvious murmurs ABDOMEN: Some distention, epigastric tenderness EXTREMITIES : No LE swelling/tenderness, no other conspicuous deformities noted NEUROLOGIC : Coherent, no facial asymmetry,, tremulous, no other gross focality Principal Diagnosis Melena Alcoholic hepatitis Diarrhea Discharge Data Allergies Allergy/AdvReac Type Severity Reaction Status Date / Time aspirin AdvReac Unknown THINS Verified 04/09/23 20:22 BLOOD, NOSE BLEEDS Consultations 04/09/23 20:03 ED Decision to Admit Stat 04/10/23 04:49 Consult Gastroenterology Routine 04/10/23 08:31 Consult Behavioral Health Liaison Routine Procedures Performed Laboratory Results WBC 2.58 K/ul (4.8-10.8) L 04/13/23 05:22 RBC 4.25 M/uL (4.70-6.10) L 04/13/23 05:22 Hgb 14.0 g/dl (14.0-18.0) 04/13/23 05:22 Hct 41.1 % (42.0-52.0) L 04/13/23 05:22 MCV 96.7 fL (80.0-100.0) 04/13/23 05:22 MCH 32.9 pg (25.0-34.0) 04/13/23 05:22 MCHC 34.1 g/dL (32.0-36.0) 04/13/23 05:22 RDW Std Deviation 44.6 fL (36.4-46.3) 04/13/23 05:22 RDW Coeff of Hang 12.5 % (11.5-14.5) 04/13/23 05:22 Plt Count 50 K/uL (130-400) L 04/13/23 05:22 MPV 12.1 fL (9.4-12.4) 04/13/23 05:22 Immature Gran % (Auto) 0.3 % 04/10/23 04:56 Neut % (Auto) 72.9 % 04/10/23 04:56 Lymph % (Auto) 11.9 % 04/10/23 04:56 [place] % (Auto) 11.6 % 04/10/23 04:56 Eos % (Auto) 2.7 % 04/10/23 04:56 Baso % (Auto) 0.6 % 04/10/23 04:56 Neut # (Auto) 2.44 K/uL (1.40-6.50) 04/10/23 04:56 Lymph # (Auto) 0.40 K/uL (1.20-3.40) L 04/10/23 04:56 [place]arrard # (Auto) 0.39 K/uL (0.11-0.59) 04/10/23 04:56 Eos # (Auto) 0.09 K/uL (0.00-0.50) 04/10/23 04:56 Baso # (Auto) 0.02 K/uL (0.00-0.20) 04/10/23 04:56 Immature Gran # (Auto) 0.01 K/uL (0.01-0.20) 04/10/23 04:56 PT 14.6 Seconds (9.0-12.0) H 04/11/23 03:34 INR 1.4 (0.9-1.1) H 04/11/23 03:34 APTT 33 Seconds (21-31) H 04/09/23 18:20 PTT Ratio 1.2 04/09/23 18:20 Sodium 136 mmol/L (136-145) 04/13/23 05:22 Potassium 3.7 mmol/L (3.5-5.1) 04/13/23 05:22 Chloride 105 mmol/L (98-107) 04/13/23 05:22 Carbon Dioxide 21 mmol/L (21-32) 04/13/23 05:22 Anion Gap 10 (3-11) 04/13/23 05:22 BUN 8 mg/dl (6-23) 04/13/23 05:22 Creatinine 0.64 mg/dl (0.6-1.4) 04/13/23 05:22 Est Cr Clr Drug Dosing 147.6 ml/min 04/13/23 05:22 Est GFR ( Amer) 133.3 ml/min 04/13/23 05:22 Est GFR (Non-Af Amer) 115.0 ml/min 04/13/23 05:22 BUN/Creatinine Ratio 12.5 (10-20) 04/13/23 05:22 Glucose 93 mg/dl (70-99(Fasting)) 04/13/23 05:22 Calcium 8.0 mg/dl (8.6-10.3) L 04/13/23 05:22 Magnesium 1.7 mg/dl (1.7-2.4) 04/13/23 05:22 Total Bilirubin 3.1 mg/dl (0.2-1.0) H 04/13/23 05:22 AST 110 U/L (13-39) H 04/13/23 05:22 ALT 93 U/L (7-52) H 04/13/23 05:22 Alkaline Phosphatase 93 U/L (34-104) 04/13/23 05:22 Ammonia 35.0 umol/L (18-72) 04/09/23 18:20 Troponin I High Sens 8.1 pg/ml (0-20) 04/09/23 18:20 Total Protein 6.7 gm/dl (6.0-8.3) 04/13/23 05:22 Albumin 2.9 gm/dl (3.4-5.0) L 04/13/23 05:22 Globulin 3.8 gm/dl (2.5-4.0) 04/13/23 05:22 Albumin/Globulin Ratio 0.8 (0.9-2) L 04/13/23 05:22 Lipase 51 U/L (11-82) 04/09/23 18:20 Urine Color Dark Yellow 04/10/23 15:20 Urine Appearance Clear (Clear) 04/10/23 15:20 Urine pH 6.0 (4.5-7.5) 04/10/23 15:20 Ur Specific [place] 1.020 (1.000-1.030) 04/10/23 15:20 Urine Protein 1+ (Negative) H 04/10/23 15:20 Urine Glucose (UA) Negative (Negative) 04/10/23 15:20 Urine Ketones Trace (Negative) H 04/10/23 15:20 Urine Blood Trace (Negative) H 04/10/23 15:20 Urine Nitrite Positive (Negative) A 04/10/23 15:20 Urine Bilirubin 3+ (Negative) H 04/10/23 15:20 Urine Urobilinogen Negative (Negative) 04/10/23 15:20 Ur Leukocyte Esterase Trace (Negative) H 04/10/23 15:20 Urine WBC (Auto) 1-5 /hpf (0-5) 04/10/23 15:20 Urine RBC (Auto) 0-4 /hpf (0-4) 04/10/23 15:20 U Hyaline Cast (Auto) 1-5 /lpf (0-5) 04/10/23 15:20 U Epithel Cells (Auto) 0-5 /lpf (0-5) 04/10/23 15:20 Urine Bacteria (Auto) Negative (Negative) 04/10/23 15:20 Stl C. cayetanensis PCR Not Detected (NotDetected) 04/10/23 16:44 Stool Rotavirus A PCR Not Detected (NotDetected) 04/10/23 16:44 Stl Adenov F 40/41 PCR Not Detected (NotDetected) 04/10/23 16:44 Stool Astrovirus (PCR) Not Detected (NotDetected) 04/10/23 16:44 Stool Campylobacter PCR Not Detected (NotDetected) 04/10/23 16:44 Stl C. diff Tox B Gene Positive Cdiff Gene (Neg) H 04/10/23 16:44 Stl C.difficile Tox A&B Negative Cdiff Toxin (Negative) 04/10/23 16:44 Stool Cryptosporidium PCR Not Detected (NotDetected) 04/10/23 16:44 Stl E.coli Shiga Tox PCR Not Detected (NotDetected) 04/10/23 16:44 Stl Enterotoxigenic E PCR Not Detected (NotDetected) 04/10/23 16:44 Stool EPEC (PCR) Not Detected (NotDetected) 04/10/23 16:44 Stool EAEC (PCR) Not Detected (NotDetected) 04/10/23 16:44 Stl E. histolytica PCR Not Detected (NotDetected) 04/10/23 16:44 Stool Giardia Lamblia PCR Not Detected (NotDetected) 04/10/23 16:44 Stool Salmonella PCR Not Detected (NotDetected) 04/10/23 16:44 Stool Sapovirus (PCR) Not Detected (NotDetected) 04/10/23 16:44 Stl P. shigelloides PCR Not Detected (NotDetected) 04/10/23 16:44 Stl Shigella/EIEC PCR Not Detected (NotDetected) 04/10/23 16:44 St Y.enterocolitica PCR Not Detected (NotDetected) 04/10/23 16:44 Stool Vibrio (PCR) Not Detected (NotDetected) 04/10/23 16:44 Stl Vibrio cholerae PCR Not Detected (NotDetected) 04/10/23 16:44 Stl Norovirus GI/GII PCR Not Detected (NotDetected) 04/10/23 16:44 Ethyl Alcohol mg/dL 193.6 mg/dl (<10.0) H 04/09/23 18:20 Adenovirus (PCR) Not Detected (NotDetected) 04/10/23 Unknown B. pertussis DNA (PCR) Not Detected (NotDetected) 04/10/23 Unknown B.parapertussis DNA PCR Not Detected (NotDetected) 04/10/23 Unknown C. pneumoniae DNA (PCR) Not Detected (NotDetected) 04/10/23 Unknown Coronavirus OC43 (PCR) Not Detected (NotDetected) 04/10/23 Unknown Coronavirus HKU1 (PCR) Not Detected (NotDetected) 04/10/23 Unknown Coronavirus 229E (PCR) Not Detected (NotDetected) 04/10/23 Unknown SARS-CoV-2 (PCR) Not Detected (NotDetected) 04/10/23 Unknown Coronavirus NL63 (PCR) Not Detected (NotDetected) 04/10/23 Unknown Human Metapneumovir PCR Not Detected (NotDetected) 04/10/23 Unknown Influenza Type A (PCR) Not Detected (NotDetected) 04/10/23 Unknown Influenza Type B (PCR) Not Detected (NotDetected) 04/10/23 Unknown M. pneumoniae (PCR) Not Detected (NotDetected) 04/10/23 Unknown Parainfluenza 1 (PCR) Not Detected (NotDetected) 04/10/23 Unknown Parainfluenza 2 (PCR) Not Detected (NotDetected) 04/10/23 Unknown Parainfluenza 3 (PCR) Not Detected (NotDetected) 04/10/23 Unknown Parainfluenza 4 (PCR) Not Detected (NotDetected) 04/10/23 Unknown RSV (RT-PCR) Negative (Neg) 04/09/23 22:15 RSV (PCR) Not Detected (NotDetected) 04/10/23 Unknown Entero/Rhino (PCR) Not Detected (NotDetected) 04/10/23 Unknown Blood Type A Positive 04/09/23 22:41 Antibody Screen NEGATIVE 04/09/23 22:41 Impressions Chest X-Ray 04/09/23 18:35 XR chest 1V not portable CLINICAL HISTORY: Shortness of breath. Vomiting. COMPARISON STUDY: Chest CT November 20, 2022. Chest radiograph and right rib series March 14, 2023. FINDINGS: Mild elevation the right hemidiaphragm is unchanged. Several healing right lower rib fractures are again noted. Lungs are clear. There is no pneumothorax or pleural effusion. Cardiac size is normal. Mediastinal contours are normal. There is no evidence for pulmonary edema. IMPRESSION: No acute cardiopulmonary findings. ACT 112: Negative or not required by law. Electronically signed by: Fidel Krishnamurthy M.D. 04/09/2023 7:31 PM Abdomen/Pelvis CT 04/09/23 19:08 Exam(s): CT ABDOMEN + PELVIS Without Contrast EXAM: CT Abdomen and Pelvis Without Intravenous Contrast CLINICAL HISTORY: Reason for exam: vomiting. TECHNIQUE: Axial computed tomography images of the abdomen and pelvis without intravenous contrast. CTDI is 23.12 mGy and DLP is 1312.72 mGy-cm. Automated exposure control was utilized for the study. A dose lowering technique was utilized adhering to the principles of ALARA. COMPARISON: No relevant prior studies available. FINDINGS: Lung bases: Unremarkable. No mass. No consolidation. ABDOMEN: Liver: Hepatic cirrhosis and steatosis. Gallbladder and bile ducts: Unremarkable. No calcified stones. No ductal dilation. Pancreas: Unremarkable. No ductal dilation. Spleen: Unremarkable. No splenomegaly. Adrenals: Unremarkable. No mass. Kidneys and ureters: Nonobstructing 6 LEFT lower pole renal stone. No hydronephrosis. Stomach and bowel: Unremarkable. No acute diverticulitis. No bowel obstruction. No free air. PELVIS: Appendix: No findings to suggest acute appendicitis. Bladder: Unremarkable. No stones. Reproductive: Unremarkable as visualized. ABDOMEN and PELVIS: Intraperitoneal space: See above. Bones/joints: Degenerative changes of the spine. No acute fracture. No dislocation. Soft tissues: Fat-containing umbilical hernia measures 4.1 x 4.4 cm. Vasculature: Atherosclerotic changes of the aorta. No abdominal aortic aneurysm. Lymph nodes: Unremarkable. No enlarged lymph nodes. IMPRESSION: 1. No acute diverticulitis. No bowel obstruction. No free air. 2. Hepatic cirrhosis and steatosis. 3. Nonobstructing 6 LEFT lower pole renal stone. 4. Fat-containing umbilical hernia measures 4.1 x 4.4 cm. Electronically signed by: Pedro Pablo Campo MD 04/09/23 19:53 PM Ordered Studies 04/09/23 19:08 CT abd pelvis wo con Stat Hospital Course (1) UGIB (upper gastrointestinal bleed): Melena H/O Grade II esophageal varices seen on EGD in 2016, esophagitis and gastritis in 2020. -EGD in 2021:no varices -Continue IV Protonix>> transition to p.o. Protonix Monitor H&H and transfuse as needed Appreciate GI input IV Rocephin discontinued Hb stable Plan to discharge home today Alcoholic hepatitis Emerson's discriminant function score 18.9 Recurrent admissions due to alcohol use Consult to quit drinking on multiple occasions Avoid hepatotoxic agents Monitor LFTs LFTs trended down Diarrhea Stool studies positive for C. difficile gene Empirically started on p.o. vancomycin Monitor volume status Resolved Low-grade fever, cough Hypoxia Serology negative for COVID, influenza, RSV CXR:No acute cardiopulmonary findings. Negative BioFire Fever resolved No clear source of infection Resolved Alcohol use disorder Alcoholic cirrhosis H/O alcohol withdrawal seizures Continue Thiamine, folic acid Completed gabapentin protocol Monitor for withdrawal Behavioral health liaison consulted Refuses drug rehab placement Chronic hyponatremia Due to alcohol use Hypokalemia Monitor and replete electrolytes as needed Sodium levels normalized Mood disorder Continue home medications DVT Px: SCDs Re: GI bleed Code Status Full code Total Time Total Time Spent Total Time Spent (In Minutes): 58 minutes Discharge Plan Discharge Items Patient Disposition: Home - Self-Care Reason For Visit: UGI BLEED Discharge Diagnosis: Melena Alcoholic hepatitis Diarrhea Condition on Discharge: Serious Activity: Per Instructions section Exercise/Sports: Gradually increase as tolerated Non-emergency contact: Primary Care Provider Call non-emergency contact if: you have any medication questions, your symptoms worsen, your pain is concerning for you and you have a fever Follow-up/Referrals: Michelle Borrego DO [Primary Care Provider] - (Date & Time 04/22/2023 1:00 PM Provider Cheryl Purvis PA-C Department Family Medicine [facility] ) Diet: Heart Healthy Addtl Attending Provider Instructions: Follow up with your primary care physician Dr. Borrego on 04/22/2023 1:00 PM -- Completed oral vancomycin course as prescribed. Seek immediate medical attention if your symptoms reoccur or worsen Please take all medications as instructed on discharge list below. Please call if you have any questions or problems. You can reach a [facility] hospitalist on duty at [facility] 24 hours a day by calling [phone] Pending Studies at Discharge: No Stand-Alone Forms: My [facility], Work/School Release, Smoking Cessation Medications and DC Order Prescriptions: New pantoprazole 40 mg Tablet,Delayed Release (Dr/Ec) 40 mg PO DAILY Qty: 30 1RF vancomycin 125 mg capsule 125 mg PO Q6H 7 Days Qty: 28 0RF Continued buspirone 5 mg Tablet 5 mg PO BID potassium chloride 10 mEq Tablet Extended Release 10 meq PO QAM nadolol 20 mg Tablet 20 mg PO QAM ursodiol 300 mg Capsule 300 mg PO BID zolpidem [Ambien] 5 mg Tablet 5 mg PO HS PRN (Reason: Sleep) spironolactone 25 mg tablet 25 mg PO QAM furosemide 20 mg tablet 20 mg PO QAM citalopram 10 mg tablet 10 mg PO QAM thiamine HCl (vitamin B1) 100 mg Tablet 100 mg PO QAM Qty: 30 0RF folic acid 1 mg Tablet 1 mg PO QAM Qty: 30 0RF magnesium oxide 400 mg (241.3 mg magnesium) Tablet 400 mg PO QAM Qty: 30 0RF Discontinued pantoprazole 20 mg tablet,delayed release (DR/EC) 20 mg PO QAM Discharge Orders: Discharge Order (Routine); Ordered 04/14/23 Ordered By: Carlin Bess Admission Data Admit Date/Time: 04/10/23 02:29 Attending Provider: Carlin Bess Admit Provider: Srinivasan Mireles Primary Care Provider: Michelle Borrego Other Providers: Srinivasan Mireles; Anatoliy Meza; Deandre Fernandez; Danni Pisano; Deb Blair; Layla Harvey; Jim Wilburn; Jamil Bond; Sonja Gonzalez; Manisha Regalado; Ashish Lyon S; Matt Boyd; Sandi Amin; Daniela Garcia; Denise Trevino; Carissa Chaves; Karo Duran; Carlos Cuevas; Rajendra Weir; Joanna Mane; Mel Briones Jr
--- NOTE | 2023-04-17 11:31 | Coding Query ---
CODING QUERY To promote full compliance with coding requirements relating to patient care, provider participation is requested in all cases of full stack engineer uncertainty. Please assist us with the question(s) below: Coding Question(s): There is documentation of diarrhea and there is documentation in Progress Notes starting 02/09 and on the Discharge Summary of, "Diarrhea Stool studies positive for C. difficile gene Empirically started on p.o. vancomycin". Please specify below, regarding diarrhea: ( ) Diarrhea due to Clostridium Difficile ( x ) Diarrhea, Unspecified ( ) Diarrhea, Other: Please Specify Physician's Response(s): Thank you Mandy Jarrett Principal Diagnosis: "that condition established after study, to be chiefly responsible for occasioning the admission of the patient to the hospital for care." Co-Existing Principal Diagnosis: "when two or more diagnoses equally meet the criteria for principal diagnosis as determined by the circumstances of admission, diagnostic work up, and/or therapy provided, and the Alphabetic Index, Tabular List, or another coding guideline does not provide sequencing direction, any one of the diagnoses may be sequenced first." "When the physician has documented what appears to be a current diagnosis in the body of the record, but has not included the diagnosis in the final diagnostic statement, the physician should be asked whether the diagnosis should be added." (Source [facility]oding [facility] 2 QTR90. p3-4) CANDICE
== END 2023-04-14 15:16 | disposition home or self-care (01) | DRG 378 ==
LOC: ED 17:08 → EDINP 04-10 02:29 → 2S 04-11 04:49

== ENCOUNTER 2023-04-17 11:14 | Inpatient (IN) ==
[2023-04-17 11:42] LABS: Basophils # (auto) 0.09 K/uL (0.00-0.20); Basophils % (auto) 1.2 %; Hematocrit (blood only) 51.6 % (42.0-52.0); Hemoglobin 16.7 g/dl (14.0-18.0); Immature Granulocytes # (auto) 0.04 K/uL (0.01-0.20); Immature Granulocytes % (auto) 0.5 %; Lymphocytes # (auto) 1.54 K/uL (1.20-3.40); Lymphocytes % (auto) 20.3 %; Mean Corpuscular Hemoglobin 33.2 pg (25.0-34.0); Mean Corpuscular Hgb Conc 32.4 g/dL (32.0-36.0); Mean Corpuscular Volume 102.6 fL (80.0-100.0); Mean Platelet Volume 10.3 fL (9.4-12.4); Monocytes # (auto) 1.08 K/uL (0.11-0.59); Monocytes % (auto) 14.2 %; Neutrophils # (auto) 4.54 K/uL (1.40-6.50); Neutrophils % (auto) 59.8 %; Platelet Count 236 K/uL (130-400); RDW Coefficient of Variation 13.1 % (11.5-14.5); RDW Standard Deviation 50.1 fL (36.4-46.3); Red Blood Count 5.03 M/uL (4.70-6.10); White Blood Count 7.59 K/ul (4.8-10.8)
[2023-04-17] MEDS ORDERED: SODIUM CHLORIDE 0.9% 1,000 ML IV ONE (11:45)
[2023-04-17 11:58] LABS: Albumin Globulin Ratio 0.7 (0.9-2); Albumin Level 3.8 gm/dl (3.4-5.0); BUN Creatinine Ratio 12.9 (10-20); Bilirubin,Total 3.1 mg/dl (0.2-1.0); Calcium 9.1 mg/dl (8.6-10.3); Est GFR (African American) 111.3 ml/min; Est GFR (Non-African American) 96.1 ml/min; Globulin 5.7 gm/dl (2.5-4.0); Potassium 3.8 mmol/L (3.5-5.1); Total Protein 9.5 gm/dl (6.0-8.3)
[2023-04-17] MEDS ORDERED: OPTIRAY 320 500ml IV ONE (12:20)
[2023-04-17 12:26] LABS: Appearance Urine Clear (Clear); Blood Urine Negative (Negative); Color Urine Dark Yellow; Glucose Urine UA Negative (Negative); Ketones Urine Negative (Negative); Leukocyte Esterase Urine Negative (Negative); Nitrite Urine Negative (Negative); Protein Urine Negative (Negative); Specific Gravity Urine 1.013 (1.000-1.030); Urobilinogen Urine Negative (Negative)
[2023-04-17 12:35] LABS: Bilirubin Urine 1+ (Negative)
--- NOTE | 2023-04-17 12:38 | CT Scan Report ---
ABDOMEN AND PELVIS CT WITH IV CONTRAST CT DOSE: 1183.81 mGy.cm HISTORY: Generalized abdominal pain. TECHNIQUE: Multiaxial CT images of the abdomen and pelvis were performed following the use of intrave nous contrast. A dose lowering technique was utilized adhering to the principles of ALARA. COMPARISON STUDY: Abdomen and pelvis CT 04/09/2023 FINDINGS: The lung bases are clear. No pneumoperitoneum. No pneumatosis. Bilateral sacroiliac joints are fused. There are are syndesmophytes within the majority of the thoracolumbar spine with fusion of the posterior elements. These findings suggest ankylosing spondylitis. There is a healing nondisplac ed right lateral 10th rib fracture. A few additional old, healed right-sided rib fractures are also n oted. Moderate size fat-containing umbilical hernia, unchanged. Nodular contour to the liver with spl enomegaly and multiple upper abdominal varicosities again noted. This is consistent with cirrhosis an d underlying portal hypertension. Heterogeneous enhancement of the liver likely secondary to the cirr hosis. The adrenal glands and pancreas are unremarkable. Left-sided nephrolithiasis again noted. Subc entimeter hypodense bilateral renal lesions are technically too small to characterize but favor cysts . No hydronephrosis. The main portal vein is patent. Normal caliber abdominal aorta. No retroperitone al or pelvic lymphadenopathy. No pelvic free fluid. Mild bladder wall thickening is likely due to und erdistention. A few colonic diverticula. No evidence for acute diverticulitis. No bowel wall thickeni ng or obstruction. Normal appendix. The gallbladder is mildly distended. A few small gallstones are n oted. There is a gallstone within the cystic duct on image 137. There are few stones within the dista l common bile duct best seen on image 144. The common bile duct is mildly distended at 11 mm. IMPRESSION: 1. Cholelithiasis with choledocholithiasis and mildly distended common bile duct. There is also a sto ne seen within the cystic duct. The gallbladder is mildly distended. An early acute cholecystitis wou ld be the diagnosis of exclusion. Surgical consultation recommended. 2. Cirrhotic liver with evidence for portal hypertension. 3. Left-sided nephrolithiasis. No hydronephrosis. 4. A healing right lateral 10th rib fracture. 5. Suspect underlying ankylosing spondylitis. 6. Additional findings as described above. ACT 112: Negative or not required by law. Electronically signed by: Naresh Hayes M.D. 04/17/2023 12:36 PM
[2023-04-17 12:53] LABS: Influenza A virus by PCR Negative (Neg); Influenza B virus by PCR Negative (Neg); RSV by PCR Negative (Neg); SARS CoV2 RNA(COVID-19) Ceph NEGATIVE (Negative)
[2023-04-17] MEDS ORDERED: cefTRIAXone SODIUM 1,000 MG/50 ML BAG IV STA (13:18)
[2023-04-17] MEDS ORDERED: metroNIDAZOLE 500 MG/100 ML BAG IV STA (13:19)
--- NOTE | 2023-04-17 13:33 | Gastrointestinal Consultation ---
Date of Consultation April 17, 2023 Assessment & Plan (1) Alcoholic cirrhosis of liver: (2) Choledocholithiasis: Plan 1. Clear liquids po today, NPO after midnight. 2. Continue po vancomycin 3. Check PT/INR. 4. Plan for ERCP tomorrow by Dr. Duran. Procedure described in detail to the patient - who would like to go forward. Supervising Physician Co-Signing Physician Notes I performed a history and physical examination of the patient today, including specifically on physical exam - soft abdomen. I have discussed the patient's management with the advanced practitioner. Please refer to the nurse practitioner's note for the documented findings and plan of care. ERCP tomorrow History of Present Illness Reason for Consultation: Abd pain, gallstones Requesting Physician: Dr. Downs (ED) [facility] History of Present Illness Mr. Darrel Guillory is a 47 yr old male pt of Dr. Lepe w a hx of insomnia, gallbladder dx (previous acute cholecystitis, trx to [place] at time of dx of cirrhosis yrs ago, thought poor surgical risk due to ascites, prescribed ursodiol) followed in GI clinic by myself for ETOH cirrhosis w ascites, EV. Previously eval by liver transplant, not listed due to low MELD. Has had long periods of abstinence but relapsed and was admitted to [facility] last week for ETOH hepatitis. He returns to the ED today for RUQ abd pain that began about 2 days ago. CTAP w IV suggests gallstones, choledocholithiasis and mild amna dil. LFTs are above his baseline but similar to time of discharge 4 days ago: T Bili 3.1, AST 95, ALT 88m, Alk Phos 85. He is on vanco po for C-diff, passing 4-6 loose BM/day the past few days, but no BMs today. No blood in BMs. He has not had fever/chills. He is not on steroids (DF was 18; ETOH hepatitis was not tx w steroids). Allergies Allergy/AdvReac Type Severity Reaction Status Date / Time aspirin AdvReac Unknown THINS Verified 04/09/23 20:22 BLOOD, NOSE BLEEDS Home Medications Medication Instructions Recorded Confirmed Type buspirone 5 mg tablet 5 mg PO BID 06/10/18 04/17/23 History nadolol 20 mg tablet 20 mg PO QPM 06/10/18 04/17/23 History potassium chloride 10 mEq 10 meq PO QAM 06/10/18 04/17/23 History tablet,extended release ursodiol 300 mg capsule 300 mg PO BID 06/10/18 04/17/23 History zolpidem 5 mg tablet (Ambien) 5 mg PO HS PRN Sleep 06/10/18 04/17/23 History furosemide 20 mg tablet 20 mg PO QAM 11/14/22 04/17/23 History spironolactone 25 mg tablet 25 mg PO QAM 11/14/22 04/17/23 History citalopram 10 mg tablet 10 mg PO QAM 04/09/23 04/17/23 History folic acid 1 mg tablet 1 mg PO QAM #30 tabs 04/14/23 04/17/23 Rx thiamine HCl (vitamin B1) 100 mg 100 mg PO QAM #30 tabs 04/14/23 04/17/23 Rx tablet vancomycin 125 mg capsule 125 mg PO Q6H 7 days #28 caps 04/14/23 04/17/23 Rx pantoprazole 40 mg tablet,delayed 40 mg PO QAM 04/17/23 04/17/23 History release Patient History Medical History Depression Anxiety Thrombocytopenia Ascites Portal hypertension Esophageal varices Alcoholic cirrhosis of liver History of macrocytic anemia History of alcohol abuse Surgical History History of esophagogastroduodenoscopy (EGD) Including procedures for esophageal varices banding History of tonsillectomy Family History Mother Diabetes Father Prostate cancer Other No family history of adverse response to anesthesia Social History Smoking Status: Never smoker Tobacco Type: Smokeless Tobacco (Dip or Chew) Second Hand Exposure: No; Do You Dip or Chew Tobacco: Yes; Hx Alcohol Use: No Hx Substance Use: No Preferred Language: Yakut Communication Ability: Effective Reel Slitter Required: No Beliefs That Will Affect Care: None Current Living Situation: Alone Current Living Situation Comment: lives with parents Other Information That Helps Us Care for You: No Feels Safe at Home: Yes Safety Concerns: Feels Safe At This Time Assistive Devices: None Review of Systems 2 Review of Systems: ROS: Gen: Denies weakness, fevers, weight loss Eyes: + icterus, No eye redness, or pain, no recent vision changes Resp: No SOB, no cough Cardio: No palpitations/irregular beats, no chest pain GI: As per HPI, otherwise (-) : Denies pain on urination Skin: + jaundice; no itching or new rashes Physical Exam 2 Constitutional: WD/WN, vitals as above Eyes: mild icterus, PEARLA ENMT: external ear and nose normal, oropharynx normal Neck: trachea midline, no thyromegaly Respiratory: normal respiratory effort, lungs clear to auscultation Cardiovascular: RRR, no murmur, no edema Gastrointestinal (Abdomen): mild gaseous distention, minimal ascites, mod RUQ tenderness, no rebound or guarding Musculoskeletal: no cyanosis or clubbing, extremities motor strength 5/5 Neurologic: PERRL, EOMI, accommodation nl, no face palsy, no dysarthria no asterix Psychiatric: A+Ox3, euthymic affect Lymphatic: no cervical or axillary lymphadenopathy Results & Data Vital Signs (Past 12 Hours) Vital Signs Temp Pulse Pulse Resp BP BP Pulse Ox 04/17/23 12:16 55 L 16 135/82 97 04/17/23 12:07 51 L 04/17/23 11:16 36.4 C L 59 L 18 150/96 H 96 O2 Del Method 04/17/23 12:16 04/17/23 12:07 04/17/23 11:16 Room Air Laboratory Results T Bili 3,.1 AST 95, ALT 88, Alk Phos 85 04/17/23 11:29 04/17/23 11:29 Diagnostic Findings CTAP w IV 04/17/23: 1. Cholelithiasis with choledocholithiasis and mildly distended common bile duct. There is also a stone seen within the cystic duct. The gallbladder is mildly distended. An early acute cholecystitis would be the diagnosis of exclusion. Surgical consultation recommended. 2. Cirrhotic liver with evidence for portal hypertension. 3. Left-sided nephrolithiasis. No hydronephrosis. 4. A healing right lateral 10th rib fracture. 5. Suspect underlying ankylosing spondylitis. (1) Alcoholic cirrhosis of liver Ascites presence: unspecified Qualified Code(s): K70.30 - Alcoholic cirrhosis of liver without ascites
--- NOTE | 2023-04-17 14:11 | History & Physical Report ---
Date of Service April 17, 2023 Assessment & Plan (1) Choledocholithiasis: (2) Cholecystitis: (3) Alcoholic cirrhosis of liver: (4) Nausea & vomiting: (5) Anxiety: (6) Depression: Plan This is a 47yo M with a PMH of alcoholic cirrhosis with secondary esophageal varices, history of ongoing intermittent alcohol use with recent relapse earlier this month, chronic cholecystitis, mood disorder, insomnia and other medical problems listed below who presents with nausea and abdominal pain over the past 3 days with evidence of cholelithiasis with choledocholithiasis on CT scan today. Choledocholithiasis Cholecystitis Was admitted to our service from 04/10-04/14 for alcoholic hepatitis and diarrhea Returns with nausea, abdominal pain and recurrent diarrhea over the past few days CT abd/pelvis with 1. Cholelithiasis with choledocholithiasis and mildly distended common bile duct. There is also a stone seen within the cystic duct. The gallbladder is mildly distended. An early acute cholecystitis would be the diagnosis of e xclusion. Surgical consultation recommended. 2. Cirrhotic liver with evidence for portal hypertension. 3. Left-sided nephrolithiasis. No hydronephrosis. 4. A healing right lateral 10th rib fracture. GI aware and will evaluate patient in ED - okay for clear liquids today, NPO after midnight with plan for ERCP tomorrow with Dr. Duran Received Rocephin and Flagyl in ED - will continue empiric abx per GI and surgery History of alcohol use Etoh cirrhosis Denies etoh use for past 2 weeks No signs/sx of etoh withdrawal Recommend rehab program although patient has not been interested previously Continue folic acid, thiamine supplementation On Ursodiol, lasix, spironolactone, nadolol for cirrhosis - hold until after ERCP May need to continue holding with HR noted in 40-50s C diff gene positive on 04/10 Started on 10d empiric course of vanco on previous admission with positive c diff gene, toxin negative Symptoms improved on vanco until yesterday but no additional episodes today Appreciate GI input regarding continuation of vanco Mood disorder Chronic, stable. Continue buspirone, citalopram once diet is advanced DVT Ppx: SCDs Code status: FULL PCP: Elmo Dispo: Admitting to [facility] Patient seen in collaboration with Dr. Doshi. Please see addendum. History of Present Illness Chief Complaint: abd pain Primary Care Provider: Michelle Borrego DO This is a 47yo M with a PMH of alcoholic cirrhosis with secondary esophageal varices, history of ongoing intermittent alcohol use with recent relapse earlier this month, chronic cholecystitis, mood disorder, insomnia and other medical problems listed below who presents with nausea and abdominal pain over the past 3 days. Was admitted to our service from 04/10-04/14 for alcoholic hepatitis and diarrhea. LFTs improved during admission and no steroids were indicated. C. difficile gene came back positive and patient was started on 10-day course of vancomycin within improvement of diarrhea. Initially felt well upon discharge but the next evening started to feel nauseous and then developed abdominal discomfort the following morning that he described as sore muscles all over his abdomen. Also had recurrence of diarrhea yesterday despite taking the p.o. vancomycin, endorsing 5-6 watery episodes. Endorses feeling intermittently sweaty with subjective fever but no chills as well as lightheadedness and some exertional shortness of breath starting yesterday. Continues to have dizziness and poor appetite. Chronic dry cough. Denies any alcohol use for the past 2 weeks since previously admitted. Lives alone and states he has been taking all medications as prescribed since discharged home on the . Follows with [facility]. Allergies Allergy/AdvReac Type Severity Reaction Status Date / Time aspirin AdvReac Unknown THINS Verified 04/09/23 20:22 BLOOD, NOSE BLEEDS Home Medications Medication Instructions Recorded Confirmed Type buspirone 5 mg tablet 5 mg PO BID 06/10/18 04/17/23 History nadolol 20 mg tablet 20 mg PO QPM 06/10/18 04/17/23 History potassium chloride 10 mEq 10 meq PO QAM 06/10/18 04/17/23 History tablet,extended release ursodiol 300 mg capsule 300 mg PO BID 06/10/18 04/17/23 History zolpidem 5 mg tablet (Ambien) 5 mg PO HS PRN Sleep 06/10/18 04/17/23 History furosemide 20 mg tablet 20 mg PO QAM 11/14/22 04/17/23 History spironolactone 25 mg tablet 25 mg PO QAM 11/14/22 04/17/23 History citalopram 10 mg tablet 10 mg PO QAM 04/09/23 04/17/23 History folic acid 1 mg tablet 1 mg PO QAM #30 tabs 04/14/23 04/17/23 Rx thiamine HCl (vitamin B1) 100 mg 100 mg PO QAM #30 tabs 04/14/23 04/17/23 Rx tablet vancomycin 125 mg capsule 125 mg PO Q6H 7 days #28 caps 04/14/23 04/17/23 Rx pantoprazole 40 mg tablet,delayed 40 mg PO QAM 04/17/23 04/17/23 History release Past Med/Surg History Medical History Depression Anxiety Thrombocytopenia Ascites Portal hypertension Esophageal varices Alcoholic cirrhosis of liver History of macrocytic anemia History of alcohol abuse Surgical History History of esophagogastroduodenoscopy (EGD) Including procedures for esophageal varices banding History of tonsillectomy Family History Mother Diabetes Father Prostate cancer Other No family history of adverse response to anesthesia Social History Smoking Status: Never smoker Tobacco Type: Smokeless Tobacco (Dip or Chew) Second Hand Exposure: No; Do You Dip or Chew Tobacco: Yes; Hx Alcohol Use: Yes Alcohol type: hard liquor Hx Substance Use: No Preferred Language: Argentine Communication Ability: Effective Dredge Hand Required: No Beliefs That Will Affect Care: None Current Living Situation: Alone Current Living Situation Comment: lives with parents Feels Safe at Home: Yes Assistive Devices: None Review of Systems Review of Systems: At least ten systems reviewed and negative except as noted in the HPI. Physical Exam Physical Exam: Please see Dr. Doshi's addendum for physical exam. Results & Data Results & Data Vital Signs (Past 12 Hours) Vital Signs Temp Pulse Pulse Resp BP BP Pulse Ox 04/17/23 12:16 55 L 16 135/82 97 04/17/23 12:07 51 L 04/17/23 11:16 36.4 C L 59 L 18 150/96 H 96 O2 Del Method 04/17/23 12:16 04/17/23 12:07 04/17/23 11:16 Room Air Laboratory Results Short CBC 04/17/23 Range/Units 11:29 WBC 7.59 (4.8-10.8) K/ul Hgb 16.7 (14.0-18.0) g/dl Hct 51.6 (42.0-52.0) % Plt Count 236 (130-400) K/uL BMP 04/17/23 11:29 Sodium 136 Potassium 3.8 Chloride 102 Carbon Dioxide 25 BUN 12 Creatinine 0.93 Glucose 108 H Calcium 9.1 Liver Function 04/17/23 Range/Units 11:29 Total Bilirubin 3.1 H (0.2-1.0) mg/dl AST 95 H (13-39) U/L ALT 88 H (7-52) U/L Alkaline Phosphatase 85 (34-104) U/L Albumin 3.8 (3.4-5.0) gm/dl Urine 04/17/23 Range/Units Unknown Urine Color Dark Yellow Urine Appearance Clear (Clear) Urine pH 5.0 (4.5-7.5) Ur Specific [place] 1.013 (1.000-1.030) Urine Protein Negative (Negative) Urine Glucose (UA) Negative (Negative) Diagnostic Findings Abdomen/Pelvis CT 04/17/23 11:[address] WITH IV CONTRAST CT DOSE: 1183.81 mGy.cm HISTORY: Generalized abdominal pain. TECHNIQUE: Multiaxial CT images of the abdomen and pelvis were performed following the use of intravenous contrast. A dose lowering technique was utilized adhering to the principles of ALARA. COMPARISON STUDY: Abdomen and pelvis CT 04/09/2023 FINDINGS: The lung bases are clear. No pneumoperitoneum. No pneumatosis. Bilateral sacroiliac joints are fused. There are are syndesmophytes within the majority of the thoracolumbar spine with fusion of the posterior elements. These findings suggest ankylosing spondylitis. There is a healing nondisplaced right lateral 10th rib fracture. A few additional old, healed right-sided rib fracture s are also noted. Moderate size fat-containing umbilical hernia, unchanged. Nodular contour to the liver with splenomegaly and multiple upper abdominal varicosities again noted. This is consistent with cirrhosis and underlying portal hypertension. Heterogeneous enhancement of the liver likely secondary to the cirrhosis. The adrenal glands and pancreas are unremarkable. Left-sided nephrolithiasis again noted. Subcentimeter hypodense bilateral renal lesions are technically too small to characterize but favor cysts. No hydronephrosis. The main portal vein is patent. Normal caliber abdominal aorta. No retroperitoneal or pelvic lymphadenopathy. No pelvic free fluid. Mild bladder wall thickening is likely due to underdistention. A few colonic diverticula. No evidence for acute diverticulitis. No bowel wall thickening or obstruction. Normal appendix. The gallbladder is mildly distended. A few small gallstones are noted. There is a gallstone within the cystic duct on image 137. There are few stones within the distal common bile duct best seen on image 144. The common bile duct is mildly distended at 11 mm. IMPRESSION: 1. Cholelithiasis with choledocholithiasis and mildly distended common bile duct. There is also a stone seen within the cystic duct. The gallbladder is mildly distended. An early acute cholecystitis would be the diagnosis of exclusion. Surgical consultation recommended. 2. Cirrhotic liver with evidence for portal hypertension. 3. Left-sided nephrolithiasis. No hydronephrosis. 4. A healing right lateral 10th rib fracture. 5. Suspect underlying ankylosing spondylitis. 6. Additional findings as described above. ACT 112: Negative or not required by law. Electronically signed by: Naresh Hayes M.D. 04/17/2023 12:36 PM Supervising Physician Co-Signing Physician Notes 47 year old man with h/o alcoholic cirrhosis, history of esophageal varices, chronic hyponatremia, past history of alcohol withdrawal seizures, recently hospitalized who presents with abd pain, nausea, diarrhea over the past 2 days. Reports last alcohol drink was 2 weeks ago Denied fever, chills, melena, hematochezia Denied dysuria freq, urgency Reports diarrhea is watery. Last episode was last night. Has anorexia Reports chronic cough. Some GUIDO On exam, General: No acute distress Eyes: PERRL, conjunctivae normal, not pale ENMT: External ear and nose normal, oropharynx normal Respiratory: Normal respiratory effort, no respiratory distress, lungs clear to auscultation, no crackles and no wheezes Cardiovascular: Bradycardic S1 S2 Gastrointestinal (Abdomen): Abdomen is mildly distended, soft, mild central abd tenderness, no guarding, normal bowel sounds Musculoskeletal: No pedal edema Neurologic: Alert and oriented x 3, No focal weakness, sensation grossly intact, No asterixis Psychiatric: Alert and oriented x 3, euthymic affect Labs notable for MCV 102, total amna 3.1, AST 95, ALT [address] noted cholelithiasis, choledocholithiasis, mildly distended CBD, cystic duct stone, mildly distended gall bladder. Cirrhosis with portal hypertension. Left nephrolithiasis no hydronephrosis. Healing right lateral 10th rib fracture Cholelithiasis Choledocholithiasis Hyperbilirubinemia C diff infection Consult GI and Gen surg Got ceft and flagyl in ER Continue IV antibiotics for now Counseled patient regarding alcohol use. He stated he has not drank since 2 weeks ago, prior to last hospitalization HR is 40-50 during evaluation. Will hold off home nadolol for now and monitor Tele monitor Patient is still on po vancomycin from recent c diff from last hospital stay. Still having diarrhea Continue po vanc Keep NPO PMN for possible ERCP I spent a total of 45 minutes coordinating, documenting and providing care for this patient excluding time spent in performance of separately billed services (3) Alcoholic cirrhosis of liver Ascites presence: unspecified Qualified Code(s): K70.30 - Alcoholic cirrhosis of liver without ascites
--- NOTE | 2023-04-17 15:14 | Surgery Consultation ---
Date of Consultation April 17, 2023 Assessment & Plan (1) Choledocholithiasis: (2) Nausea & vomiting: Plan 47-year-old gentleman with alcoholic cirrhosis presents with choledocholithiasis and possible early acute cholecystitis. He is set up for ERCP tomorrow. Agree with IV fluids and IV antibiotics. Given his cirrhosis, I would avoid surgery except for urgent/emergent situation. We will continue to follow. History of Present Illness Reason for Consultation: gallstones Requesting Physician: Hamida Baxter Attending Physician: Hamida Baxter History of Present Illness 47-year-old gentleman with alcoholic cirrhosis presents with a weeklong history of abdominal pain. He was just admitted for alcoholic hepatitis, discharged on Friday. He then developed increasing pain, nausea, diarrhea and chills. CT scan demonstrates what appears to be a dilated common bile duct, gallbladder with stones and distention. Cirrhosis present. He is currently scheduled for ERCP tomorrow. Allergies Allergy/AdvReac Type Severity Reaction Status Date / Time aspirin AdvReac Unknown THINS Verified 04/09/23 20:22 BLOOD, NOSE BLEEDS Home Medications Medication Instructions Recorded Confirmed Type buspirone 5 mg tablet 5 mg PO BID 06/10/18 04/17/23 History nadolol 20 mg tablet 20 mg PO QPM 06/10/18 04/17/23 History potassium chloride 10 mEq 10 meq PO QAM 06/10/18 04/17/23 History tablet,extended release ursodiol 300 mg capsule 300 mg PO BID 06/10/18 04/17/23 History zolpidem 5 mg tablet (Ambien) 5 mg PO HS PRN Sleep 06/10/18 04/17/23 History furosemide 20 mg tablet 20 mg PO QAM 11/14/22 04/17/23 History spironolactone 25 mg tablet 25 mg PO QAM 11/14/22 04/17/23 History citalopram 10 mg tablet 10 mg PO QAM 04/09/23 04/17/23 History folic acid 1 mg tablet 1 mg PO QAM #30 tabs 04/14/23 04/17/23 Rx thiamine HCl (vitamin B1) 100 mg 100 mg PO QAM #30 tabs 04/14/23 04/17/23 Rx tablet vancomycin 125 mg capsule 125 mg PO Q6H 7 days #28 caps 04/14/23 04/17/23 Rx pantoprazole 40 mg tablet,delayed 40 mg PO QAM 04/17/23 04/17/23 History release Patient History Medical History Depression Anxiety Thrombocytopenia Ascites Portal hypertension Esophageal varices Alcoholic cirrhosis of liver History of macrocytic anemia History of alcohol abuse Surgical History History of esophagogastroduodenoscopy (EGD) Including procedures for esophageal varices banding History of tonsillectomy Family History Mother Diabetes Father Prostate cancer Other No family history of adverse response to anesthesia Social History Smoking Status: Never smoker Tobacco Type: Smokeless Tobacco (Dip or Chew) Second Hand Exposure: No; Do You Dip or Chew Tobacco: Yes; Hx Alcohol Use: Yes Alcohol type: hard liquor Hx Substance Use: No Preferred Language: Luxembourgish Communication Ability: Effective Patient Consumer Marketer Required: No Beliefs That Will Affect Care: None Current Living Situation: Alone Current Living Situation Comment: lives with parents Feels Safe at Home: Yes Assistive Devices: None Review of Systems Review of Systems: All systems reviewed & are unremarkable except as noted in HPI & below Physical Exam Constitutional: WD/WN, vitals as above Eyes: PERRL, conjunctivae normal, anicteric sclerae Neck: trachea midline, no thyromegaly Respiratory: normal respiratory effort; no respiratory distress and no labored breathing Cardiovascular: Rate/Rhythm: regular rate and regular rhythm Gastrointestinal (Abdomen): Inspection/Auscultation: abdomen normal to inspection; abdomen not distended Percussion/Palpation: abdomen soft; abdomen nontender, no guarding and abdomen not rigid Skin: no rashes, warm and dry Psychiatric: A+Ox3, euthymic affect Results & Data Vital Signs (Past 12 Hours) Vital Signs Temp Pulse Pulse Resp BP BP Pulse Ox 04/17/23 14:36 69 16 147/93 H 96 04/17/23 12:16 55 L 16 135/82 97 04/17/23 12:07 51 L 04/17/23 11:16 36.4 C L 59 L 18 150/96 H 96 O2 Del Method 04/17/23 14:36 04/17/23 12:16 04/17/23 12:07 04/17/23 11:16 Room Air Laboratory Results 04/17/23 04/17/23 04/17/23 Range/Units Unknown 12:00 11:29 WBC 7.59 (4.8-10.8) K/ul RBC 5.03 (4.70-6.10) M/uL Hgb 16.7 (14.0-18.0) g/dl Hct 51.6 (42.0-52.0) % MCV 102.6 H (80.0-100.0) fL MCH 33.2 (25.0-34.0) pg MCHC 32.4 (32.0-36.0) g/dL RDW Std Deviation 50.1 H (36.4-46.3) fL RDW Coeff of Hang 13.1 (11.5-14.5) % Plt Count 236 (130-400) K/uL MPV 10.3 (9.4-12.4) fL Immature Gran % (Auto) 0.5 % Neut % (Auto) 59.8 % Lymph % (Auto) 20.3 % [place] % (Auto) 14.2 % Eos % (Auto) 4.0 % Baso % (Auto) 1.2 % Neut # (Auto) 4.54 (1.40-6.50) K/uL Lymph # (Auto) 1.54 (1.20-3.40) K/uL [place] # (Auto) 1.08 H (0.11-0.59) K/uL Eos # (Auto) 0.30 (0.00-0.50) K/uL Baso # (Auto) 0.09 (0.00-0.20) K/uL Immature Gran # (Auto) 0.04 (0.01-0.20) K/uL PT Pending INR Pending Sodium 136 (136-145) mmol/L Potassium 3.8 (3.5-5.1) mmol/L Chloride 102 (98-107) mmol/L Carbon Dioxide 25 (21-32) mmol/L Anion Gap 9 (3-11) BUN 12 (6-23) mg/dl Creatinine 0.93 (0.6-1.4) mg/dl Est Cr Clr Drug Dosing 93.0 ml/min Est GFR ( Amer) 111.3 ml/min Est GFR (Non-Af Amer) 96.1 ml/min BUN/Creatinine Ratio 12.9 (10-20) Glucose 108 H (70-99(Fasting)) mg/dl Calcium 9.1 (8.6-10.3) mg/dl Total Bilirubin 3.1 H (0.2-1.0) mg/dl AST 95 H (13-39) U/L ALT 88 H (7-52) U/L Alkaline Phosphatase 85 (34-104) U/L Total Protein 9.5 H (6.0-8.3) gm/dl Albumin 3.8 (3.4-5.0) gm/dl Globulin 5.7 H (2.5-4.0) gm/dl Albumin/Globulin Ratio 0.7 L (0.9-2) Lipase 42 (11-82) U/L Urine Color Dark Yellow Urine Appearance Clear (Clear) Urine pH 5.0 (4.5-7.5) Ur Specific [place] 1.013 (1.000-1.030) Urine Protein Negative (Negative) Urine Glucose (UA) Negative (Negative) Urine Ketones Negative (Negative) Urine Blood Negative (Negative) Urine Nitrite Negative (Negative) Urine Bilirubin 1+ H (Negative) Urine Urobilinogen Negative (Negative) Ur Leukocyte Esterase Negative (Negative) Ethyl Alcohol mg/dL < 10.0 (<10.0) mg/dl SARS-CoV-2 (PCR) NEGATIVE (Negative) Influenza Type A (PCR) Negative (Neg) Influenza Type B (PCR) Negative (Neg) RSV (RT-PCR) Negative (Neg) Diagnostic Findings ABDOMEN AND PELVIS CT WITH IV CONTRAST CT DOSE: 1183.81 mGy.cm HISTORY: Generalized abdominal pain. TECHNIQUE: Multiaxial CT images of the abdomen and pelvis were performed following the use of intravenous contrast. A dose lowering technique was utilized adhering to the principles of ALARA. COMPARISON STUDY: Abdomen and pelvis CT 04/09/2023 FINDINGS: The lung bases are clear. No pneumoperitoneum. No pneumatosis. Bilateral sacroiliac joints are fused. There are are syndesmophytes within the majority of the thoracolumbar spine with fusion of the posterior elements. These findings suggest ankylosing spondylitis. There is a healing nondisplaced right lateral 10th rib fracture. A few additional old, healed right-sided rib fractures are also noted. Moderate size fat-containing umbilical hernia, unchanged. Nodular contour to the liver with splenomegaly and multiple upper abdominal varicosities again noted. This is consistent with cirrhosis and underlying portal hypertension. Heterogeneous enhancement of the liver likely secondary to the cirrhosis. The adrenal glands and pancreas are unremarkable. Left-sided nephrolithiasis again noted. Subcentimeter hypodense bilateral renal lesions are technically too small to characterize but favor cysts. No hydronephrosis. The main portal vein is patent. Normal caliber abdominal aorta. No retroperitoneal or pelvic lymphadenopathy. No pelvic free fluid. Mild bladder wall thickening is likely due to underdistention. A few colonic diverticula. No evidence for acute diverticulitis. No bowel wall thickening or obstruction. Normal appendix. The gallbladder is mildly distended. A few small gallstones are noted. There is a gallstone within the cystic duct on image 137. There are few stones within the distal common bile duct best seen on image 144. The common bile duct is mildly distended at 11 mm. IMPRESSION: 1. Cholelithiasis with choledocholithiasis and mildly distended common bile duct. There is also a stone seen within the cystic duct. The gallbladder is mildly distended. An early acute cholecystitis would be the diagnosis of exclusion. Surgical consultation recommended. 2. Cirrhotic liver with evidence for portal hypertension. 3. Left-sided nephrolithiasis. No hydronephrosis. 4. A healing right lateral 10th rib fracture. 5. Suspect underlying ankylosing spondylitis. 6. Additional findings as described above. ACT 112: Negative or not required by law. Electronically signed by: Naresh Hayes M.D. 04/17/2023 12:36 P (2) Nausea & vomiting Vomiting type: unspecified Qualified Code(s): R11.2 - Nausea with vomiting, unspecified
--- NOTE | 2023-04-17 16:06 | Emergency Department Note ---
History of Present Illness General Chief Complaint: Illness Stated Complaint: ABD PAIN, HEADACHE, FLU LIKE SYMPTOMS Time Seen by Provider: 04/17/23 11:39 History of Present Illness Provider Complaint: abdominal pain Onset (ago): 2 day(s) Pain Consistency: constant Location: diffuse Severity: moderate Quality: + stabbing, + aching, + fullness, + sharp and + dull Relieved By: + nothing Exacerbated By: + nothing Context: no foreign travel, no possible food poisoning, no sick contacts, no recent antibiotic use, no recent surgery/procedure or no recent injury Associated Symptoms: + nausea, + vomiting and + chills; no diarrhea, no fever, no constipation, no dysuria, no hematemesis, no hematochezia, no melena, no hematuria, no headache and no chest pain Home Medications Medication Instructions Recorded Confirmed Type buspirone 5 mg tablet 5 mg PO BID 06/10/18 04/17/23 History nadolol 20 mg tablet 20 mg PO QPM 06/10/18 04/17/23 History potassium chloride 10 mEq 10 meq PO QAM 06/10/18 04/17/23 History tablet,extended release ursodiol 300 mg capsule 300 mg PO BID 06/10/18 04/17/23 History zolpidem 5 mg tablet (Ambien) 5 mg PO HS PRN Sleep 06/10/18 04/17/23 History furosemide 20 mg tablet 20 mg PO QAM 11/14/22 04/17/23 History spironolactone 25 mg tablet 25 mg PO QAM 11/14/22 04/17/23 History citalopram 10 mg tablet 10 mg PO QAM 04/09/23 04/17/23 History folic acid 1 mg tablet 1 mg PO QAM #30 tabs 04/14/23 04/17/23 Rx thiamine HCl (vitamin B1) 100 mg 100 mg PO QAM #30 tabs 04/14/23 04/17/23 Rx tablet vancomycin 125 mg capsule 125 mg PO Q6H 7 days #28 caps 04/14/23 04/17/23 Rx pantoprazole 40 mg tablet,delayed 40 mg PO QAM 04/17/23 04/17/23 History release Allergies Allergy/AdvReac Type Severity Reaction Status Date / Time aspirin AdvReac Unknown THINS Verified 04/09/23 20:22 BLOOD, NOSE BLEEDS Past Med/Surg History Medical History Depression Anxiety Thrombocytopenia Ascites Portal hypertension Esophageal varices Alcoholic cirrhosis of liver History of macrocytic anemia History of alcohol abuse Surgical History History of esophagogastroduodenoscopy (EGD) Including procedures for esophageal varices banding History of tonsillectomy Family History Mother Diabetes Father Prostate cancer Other No family history of adverse response to anesthesia Social History Smoking Status: Never smoker Tobacco Type: Smokeless Tobacco (Dip or Chew) Second Hand Exposure: No; Do You Dip or Chew Tobacco: Yes; Hx Alcohol Use: Yes Alcohol type: hard liquor Hx Substance Use: No Preferred Language: Estonian Communication Ability: Effective Service Desk Director Required: No Beliefs That Will Affect Care: None Current Living Situation: Alone Current Living Situation Comment: lives with parents Feels Safe at Home: Yes Assistive Devices: None Physical Exam 2 Vital Signs: Vital Signs - 24 hr 04/17/23 11:16 04/17/23 12:07 04/17/23 12:16 Temperature 36.4 C L Temperature Source Oral Pulse Rate 59 L 51 L Pulse Rate [Apical ] 55 L Pulse Rhythm Regular Pulse Strength Normal Respiratory Rate 18 16 Respiratory Effort / Characteristics Non-Labored Respiratory Depth Normal Respiratory Patter n Regular Blood Pressure 150/96 H Blood Pressure [Le ft Arm] 135/82 Blood Pressure Araceli n 114 Blood Pressure Araceli n [Left Arm] 99 Blood Pressure Pos ition Sitting Pulse Oximetry 96 97 Oxygen Delivery Me thod Room Air Sepsis Recent Feve r Within 48 Hours No Sepsis New/Unexpla ined Change in Men [place] Status No Sepsis Action Take n by Nursing No Action Required 04/17/23 14:36 04/17/23 15:48 Temperature Temperature Source Pulse Rate Pulse Rate [Apical ] 69 69 Pulse Rhythm Pulse Strength Respiratory Rate 16 16 Respiratory Effort / Characteristics Respiratory Depth Respiratory Patter n Blood Pressure Blood Pressure [Le ft Arm] 147/93 H 116/72 Blood Pressure Araceli n Blood Pressure Araceli n [Left Arm] 111 86 Blood Pressure Pos ition Pulse Oximetry 96 96 Oxygen Delivery Me thod Sepsis Recent Feve r Within 48 Hours Sepsis New/Unexpla ined Change in Men [place] Status Sepsis Action Take n by Nursing Physical Exam: Physical Exam GENERAL: She is oriented to person, place, and time. She appears well-developed and well-nourished. She does not appear distressed. HENT: Exam performed. -Head: Normocephalic and atraumatic. -Right Ear: External ear normal. No mastoid erythema -Left Ear: External ear normal. No mastoid erythema -Mouth/Throat: The oropharynx is clear and moist. No trismus in the jaw. No dental abscesses or uvula swelling. No oropharyngeal exudate or tonsillar abscesses. EYES: Conjunctivae and EOM are normal.Right eye exhibits no discharge. Left eye exhibits no discharge. No scleral icterus. NECK: Normal range of motion. Neck supple. No JVD present. No tracheal deviation and normal range of motion present. CV: Normal rate, regular rhythm, normal heart sounds and intact distal pulses. There is no peripheral edema. Palpable radial pulses bue. PULM/CHEST: Effort normal and breath sounds normal. No respiratory distress. No stridor. She has no wheezes. She has no rales. -Chest Wall: She exhibits no tenderness. ABD: The abdomen is soft. Bowel sounds are normal. She has no distension. No mass is present. There is diffuse tenderness to palpation. There is no rebound, no guarding. MUSC/SKEL: Normal range of motion. There is no peripheral edema, tenderness or deformity. NEURO: Motor and sensation grossly intact. SKIN: Skin is warm and dry. She is not diaphoretic. PSYCH: She has a normal mood and affect. Behavior is normal. Judgment and thought content normal. Course Course 1139: The patient was evaluated in room B6. A complete history and physical exam was performed Administered Medications Discontinued Medications Sodium Chloride (Nss) 1,000 mls @ 999 mls/hr IV .Q1H1M ONE Stop: 04/17/23 12:45 Last Infusion: 04/17/23 13:39 Dose: Infused Documented By: Admin: 04/17/23 12:06 Dose: 999 mls/hr Documented By: DREW Ceftriaxone Sodium (Rocephin) 1,000 mg in 50 mls @ 100 mls/hr IV NOW STA Stop: 04/17/23 13:47 Last Infusion: 04/17/23 14:14 Dose: Infused Documented By: Admin: 04/17/23 13:32 Dose: 100 mls/hr Documented By: OLIVIA Metronidazole (Flagyl) 500 mg in 100 mls @ 100 mls/hr IV NOW STA Stop: 04/17/23 14:18 Last Infusion: 04/17/23 15:37 Dose: Infused Documented By: Admin: 04/17/23 13:32 Dose: 100 mls/hr Documented By: OLIVIA Ioversol (Optiray 320 500ml) 86 ml IV ONCE ONE Stop: 04/17/23 12:21 Last Admin: 04/17/23 12:20 Dose: 1 ml Documented By: IRAIS Medical Decision Making Laboratory Data Attestation: I reviewed the patient's lab results. 04/17/23 11:29 04/17/23 11:29 Lab Results 04/17/23 04/17/23 04/17/23 Range/Units 11:29 12:00 Unknown WBC 7.59 (4.8-10.8) K/ul RBC 5.03 (4.70-6.10) M/uL Hgb 16.7 (14.0-18.0) g/dl Hct 51.6 (42.0-52.0) % MCV 102.6 H (80.0-100.0) fL MCH 33.2 (25.0-34.0) pg MCHC 32.4 (32.0-36.0) g/dL RDW Std Deviation 50.1 H (36.4-46.3) fL RDW Coeff of Hang 13.1 (11.5-14.5) % Plt Count 236 (130-400) K/uL MPV 10.3 (9.4-12.4) fL Immature Gran % (Auto) 0.5 % Neut % (Auto) 59.8 % Lymph % (Auto) 20.3 % [place] % (Auto) 14.2 % Eos % (Auto) 4.0 % Baso % (Auto) 1.2 % Neut # (Auto) 4.54 (1.40-6.50) K/uL Lymph # (Auto) 1.54 (1.20-3.40) K/uL [place] # (Auto) 1.08 H (0.11-0.59) K/uL Eos # (Auto) 0.30 (0.00-0.50) K/uL Baso # (Auto) 0.09 (0.00-0.20) K/uL Immature Gran # (Auto) 0.04 (0.01-0.20) K/uL PT Cancelled INR Cancelled Sodium 136 (136-145) mmol/L Potassium 3.8 (3.5-5.1) mmol/L Chloride 102 (98-107) mmol/L Carbon Dioxide 25 (21-32) mmol/L Anion Gap 9 (3-11) BUN 12 (6-23) mg/dl Creatinine 0.93 (0.6-1.4) mg/dl Est Cr Clr Drug Dosing 93.0 ml/min Est GFR ( Amer) 111.3 ml/min Est GFR (Non-Af Amer) 96.1 ml/min BUN/Creatinine Ratio 12.9 (10-20) Glucose 108 H (70-99(Fasting)) mg/dl Calcium 9.1 (8.6-10.3) mg/dl Total Bilirubin 3.1 H (0.2-1.0) mg/dl AST 95 H (13-39) U/L ALT 88 H (7-52) U/L Alkaline Phosphatase 85 (34-104) U/L Total Protein 9.5 H (6.0-8.3) gm/dl Albumin 3.8 (3.4-5.0) gm/dl Globulin 5.7 H (2.5-4.0) gm/dl Albumin/Globulin Ratio 0.7 L (0.9-2) Lipase 42 (11-82) U/L Urine Color Dark Yellow Urine Appearance Clear (Clear) Urine pH 5.0 (4.5-7.5) Ur Specific [place] 1.013 (1.000-1.030) Urine Protein Negative (Negative) Urine Glucose (UA) Negative (Negative) Urine Ketones Negative (Negative) Urine Blood Negative (Negative) Urine Nitrite Negative (Negative) Urine Bilirubin 1+ H (Negative) Urine Urobilinogen Negative (Negative) Ur Leukocyte Esterase Negative (Negative) Ethyl Alcohol mg/dL < 10.0 (<10.0) mg/dl SARS-CoV-2 (PCR) NEGATIVE (Negative) Influenza Type A (PCR) Negative (Neg) Influenza Type B (PCR) Negative (Neg) RSV (RT-PCR) Negative (Neg) Imaging Data Radiologist's Impression: Abdomen/Pelvis CT 04/17/23 11:[address] WITH IV CONTRAST CT DOSE: 1183.81 mGy.cm HISTORY: Generalized abdominal pain. TECHNIQUE: Multiaxial CT images of the abdomen and pelvis were performed following the use of intravenous contrast. A dose lowering technique was utilized adhering to the principles of ALARA. COMPARISON STUDY: Abdomen and pelvis CT 04/09/2023 FINDINGS: The lung bases are clear. No pneumoperitoneum. No pneumatosis. Bilateral sacroiliac joints are fused. There are are syndesmophytes within the majority of the thoracolumbar spine with fusion of the posterior elements. These findings suggest ankylosing spondylitis. There is a healing nondisplaced right lateral 10th rib fracture. A few additional old, healed right-sided rib fractures are also noted. Moderate size fat-containing umbilical hernia, unchanged. Nodular contour to the liver with splenomegaly and multiple upper abdominal varicosities again noted. This is consistent with cirrhosis and underlying portal hypertension. Heterogeneous enhancement of the liver likely secondary to the cirrhosis. The adrenal glands and pancreas are unremarkable. Left-sided nephrolithiasis again noted. Subcentimeter hypodense bilateral renal lesions are technically too small to characterize but favor cysts. No hydronephrosis. The main portal vein is patent. Normal caliber abdominal aorta. No retroperitoneal or pelvic lymphadenopathy. No pelvic free fluid. Mild bladder wall thickening is likely due to underdistention. A few colonic diverticula. No evidence for acute diverticulitis. No bowel wall thickening or obstruction. Normal appendix. The gallbladder is mildly distended. A few small gallstones are noted. There is a gallstone within the cystic duct on image 137. There are few stones within the distal common bile duct best seen on image 144. The common bile duct is mildly distended at 11 mm. IMPRESSION: 1. Cholelithiasis with choledocholithiasis and mildly distended common bile duct. There is also a stone seen within the cystic duct. The gallbladder is mildly distended. An early acute cholecystitis would be the diagnosis of exclusion. Surgical consultation recommended. 2. Cirrhotic liver with evidence for portal hypertension. 3. Left-sided nephrolithiasis. No hydronephrosis. 4. A healing right lateral 10th rib fracture. 5. Suspect underlying ankylosing spondylitis. 6. Additional findings as described above. ACT 112: Negative or not required by law. Electronically signed by: Naresh Hayes M.D. 04/17/2023 12:36 PM MDM Narrative Cardiac monitoring: An order was placed for continuous cardiac monitoring. The monitor shows a rate of 50 with sinus rhythm interpreted by me Vital signs stable. Labs show an AST of [address] of the abdomen pelvis shows cholelithiasis with choledocholithiasis and mildly distended common bile duct. There is also stones seen within the cystic duct call. Gallbladder is mildly distended. Early cholecystitis is diagnosis of exclusion. Discussed the case with GI on-call kasia on-call for Dr. Marnie Hughes. She states that the patient has a chronic history of this and they will evaluate him for any GI procedure. She recommends admission to the hospital service. Erika and Flageunice ordered for the patient in case there is any cholecystitis. Discussed case with Dr. Martínez on-call general surgery will evaluate the patient on consult while admitted to the hospital service as well. Impression & Plan Choledocholithiasis, Cholecystitis Discharge Plan Visit Data Chief Complaint: Illness Stated Complaint: ABD PAIN, HEADACHE, FLU LIKE SYMPTOMS ED Provider: Padilla Downs Discharge Problem: Choledocholithiasis, Cholecystitis Patient Disposition: Being Evaluated by Hospitalist Forms Stand Alone Forms: [facility] [place] [employer] Prescriptions Prescriptions: No Action buspirone 5 mg Tablet 5 mg PO BID potassium chloride 10 mEq Tablet Extended Release 10 meq PO QAM nadolol 20 mg Tablet 20 mg PO QPM ursodiol 300 mg Capsule 300 mg PO BID zolpidem [Ambien] 5 mg Tablet 5 mg PO HS PRN (Reason: Sleep) spironolactone 25 mg tablet 25 mg PO QAM furosemide 20 mg tablet 20 mg PO QAM citalopram 10 mg tablet 10 mg PO QAM vancomycin 125 mg capsule 125 mg PO Q6H 7 Days Qty: 28 0RF thiamine HCl (vitamin B1) 100 mg Tablet 100 mg PO QAM Qty: 30 0RF folic acid 1 mg Tablet 1 mg PO QAM Qty: 30 0RF pantoprazole 40 mg tablet,delayed release (DR/EC) 40 mg PO QAM Referrals Referrals: Michelle Borrego DO [Primary Care Provider] -
[2023-04-17 16:47] LABS: INR 1.2 (0.9-1.1); Prothrombin Time 12.8 Seconds (9.0-12.0)
--- OUTSIDE RECORDS SUMMARY | 2023-04-17 17:23 | External Medical Summary | Summary of Care ---
Author Name Unknown Organization [facility] Address [address] [facility] [address] Phone [phone] Care Team Providers Care Chemical Treatment Operator Name Role Phone Borrego, Michelle Mari KEITA Primary Care Provider [phone] Reason for Visit * Reason Onset Date Comments Appointment 04/10/2023 Encounter Details Date Type Department Care Team (Late st Contact Info) Description 04/10/2023 Telephone Gastroenterology, [facility] [address] [place] [address] Denise Trevino CRNP [address] [place] [address] Appointment Allergies Active Allergy Reactions Criticality Noted Date Comments Aspirin Other (Please comment) 02/12/2016 Reports having a bloody nose. documented as of this encounter (statuses as of 04/10/2023) Medications Medication Sig Dispensed Refills Start Date [...] Active Zolpidem Tartrate 5 MG Oral Tablet (Ambien)Indications:H istory of alcohol abuse,Persistent insomnia Take 1 Tablet [...] 04/07/2023 Active Furosemide 20 MG Oral Tablet (Lasix)Indications:Al coholic cirrhosis of liver with ascites (HCC) Take 1 Tablet by mouth in the morning. 90 Tablet 3 04/07/2023 Active Nadolol 20 MG Oral Tablet (Corgard) Take 1 Tablet by mouth in the morning. 90 Tablet 3 04/07/2023 Active documented as of this encounter (statuses as of 04/10/2023) Active Problems Problem Noted Date Diagnosed Date [...] as of this encounter (statuses as of 04/10/2023) Resolved Problems Problem Noted Date Diagnosed Date [...] as of this encounter (statuses as of 04/10/2023) Immunizations Name Administration Dates Next Due COVID-19 mRNA, LNP-s, No Pre serve, 2-Dose Series (Moderna) 07/26/2020,06/13/2020 COVID-19, MRNA-LNP, 23-24, P F, 30 MCG/0.3 mL, 12 YRS AND ABOVE, IM ([employer]-Comirnat) 01/15/2023 COVID-19, mRNA, LNP-s, PF, B ooster, [...] encounter Miscellaneous Notes * Telephone Encounter - Rachael Ballard OSA - 04/10/2023 1:57 PM EST LMOM to schedule. * Telephone Encounter - Denise Trevino CRNP - 04/10/2023 11:15 AM EST Pt admitted at [facility] for n/v, suspected ETOH hepatitis, ? Withdrawal. Pls set up f/u with Lorella in about 6-8 weeks' time to discuss possible referral back to Transplant clinic to be evaluated again for possible liver transplant [place] - RUPERT Hamm documented in this encounter Plan of Treatment Upcoming Encounters Date Type Department Care Team (Latest Contact Info) Description 05/05/2023 11:15 AM EST Hospital Encounter ENDO [facility], Endoscopy Room [facility] [place] [address] Jamil Bond MD [address] [place] [address] 05/05/2023 11:15 AM EST - 05/05/2023 11:45 AM EST Surgery ENDO [facility], Endoscopy Room [facility] [address] [place] [phone] Jamil Bond MD [address] [place] [address] ESOPHAGOGASTRODUODENOSCOPY (EGD), FLEXIBLE, TRANSORAL, DIAGNOSTIC 05/06/2023 8:30 AM EST Imaging Radiology [address] [place] [address] 06/24/2023 8:30 AM EDT Office Visit Family Medicine [address] [place] [phone] Michelle Borrego[address] [place] [address] Scheduled Procedures Name Priority Associated Diagnoses Date/Ti [...] the patient have Health Care Power of Studio Hand? No Code Status History Code Status Date [...] the patient have Health Care Power of Studio Hand? No Full Code 02/10/2016 5:50 PM 02/20/2016 12:09 AM Th is order reflects the patients wishes and were consensually agreed upon. Question Answer Comments Discussion of Advance Directives occurred with: Patient Does the patient have a Living Will? No Does the patient have Health Care Power of Studio Hand? No Full Code 01/15/2016 3:25 PM 01/18/2016 6:24 PM Thi s order reflects the patients wishes and were consensually agreed upon. Question Answer Comments Discussion of Advance Directives occurred with: Patient Does the patient have a Living Will? No Does the patient have Health Care Power of Studio Hand? No Care Teams Chemical Treatment Operator Relationship Specialty Start Date End Date Michelle Borrego DO [address] [place] [address] [place] [address] PCP - General Internal Medicine 06/07/16 documented as of this encounter
--- OUTSIDE RECORDS SUMMARY | 2023-04-17 17:23 | External Medical Summary | Summary of Care ---
Author Name Unknown Organization [facility] Address [address] [facility] [place] [address] Phone [phone] Care Team Providers Care Construction Secretary Name Role Phone Michelle Borrego Primary Care Provider + [phone] Reason for Visit * Reason Onset Date Comments Hospital Follow-Up 04/15/2023 Jori for [facility] first attempt Encounter Details Date Type Department Care Team (Late st Contact Info) Description 04/15/2023 Telephone Ancillary [address] [place] [address] Erin Jolley RN Hospital Follow-Up (Jori for [facility] first att... Allergies Active Allergy Reactions Criticality Noted Date Comments Aspirin Other (Please comment) 02/12/2016 Reports having a bloody nose. documented as of this encounter (statuses as of 04/16/2023) Medications Medication Sig Dispensed Refills Start Date [...] as of this encounter (statuses as of 04/16/2023) Active Problems Problem Noted Date Diagnosed Date [...] as of this encounter (statuses as of 04/16/2023) Resolved Problems Problem Noted Date Diagnosed Date Resolved Date Abdominal pain 05/13/2017 06/01/2018 Alcohol withdrawal seizure w ithout complication 06/07/2016 06/01/2018 Hyponatremia 04/16/2016 06/01/2018 Generalized abdominal pain 04/16/2016 0 06/07/2016 Nausea without vomiting 04/16/201606/2018 Seizures 01/18/2016 06/07/2016 Delirium tremens 01/18/2016 02/12/2017 Alcohol withdrawal 01/18/2016 7 Tobacco use disorder 01/18/2016 019 Thrombocytopenia 01/18/2016 12/21/2019 Alcohol abuse 01/18/2016 06/01/2018 documented as of this encounter (statuses as of 04/16/2023) Immunizations Name Administration Dates Next Due COVID-19 [...] Telephone Encounter - Erin Jolley RN - 04/16/2023 3:20 PM EST Transitions of Care Note attempted to reach patient a 2nd time, left message to return my call. I also left a message with follow up appointment date and time. I will message Jacklyn Dong also , she wanted to try and touch base with patient again when he was in for a visit. Patient is scheduled for 04/22/23 with Cheryl Jolley RN * Telephone Encounter - Erin Jolley RN - 04/15/2023 1:08 PM EST Transitions of Care Note Reason for Referral:Recent Admission Phone visit for follow up: jori Admitted to: [facility], Date: 04.10.23 Discharged to: home, Date: 04.14.23 Diagnosis driving hospitalization: Melena Alcoholic hepatitis Diarrhea Diarrhea Stool studies positive for C. difficile gene Chest xray showed: several healing right lower rib fractures Per hospital discharge med change: New pantoprazole 40 mg Tablet,Delayed Release (Dr/Ec) 40 mg PO DAILY Qty: 30 1RF vancomycin 125 mg capsule 125 mg PO Q6H 7 Days Qty: 28 0RF Left message for the patient to call the office, left message with father and on cell phone. Erni Jolley RN documented in this encounter Plan of Treatment Upcoming Encounters Date Type Department Care Team (Latest Contact Info) Description 04/22/2023 1:00 PM EST Office Visit Family [address] [place] [phone] Cheryl Purvis PA-C [address] [place] [address] [place] [address] 05/05/2023 11:15 AM EST Hospital Encounter ENDO [facility], Endoscopy Room [facility] [address] [facility] [place] [phone] Jamil Bond MD [address] [place] [address] 05/05/2023 11:15 AM EST - 05/05/2023 11:45 AM EST Surgery ENDO [facility], Endoscopy Room [facility] [address] [facility] [place] [phone] Jamil Bond MD [address] [place] [address] ESOPHAGOGASTRODUODENOSCOPY (EGD), FLEXIBLE, TRANSORAL, DIAGNOSTIC 05/06/2023 8:30 AM EST Imaging Radiology [address] [place] [address] 06/24/2023 8:30 AM EDT Office Visit [address] [place] [phone] Michelle Borrego DO [address] [place] [address] [place] [address] Scheduled Procedures Name Priority Associated Diagnoses Date/Ti [...] the patient have Health Care Power of Dumpster Driver? No Code Status History Code Status Date [...] the patient have Health Care Power of Dumpster Driver? No Full Code 02/10/2016 5:50 PM 02/20/2016 12:09 AM Th is order reflects the patients wishes and were consensually agreed upon. Question Answer Comments Discussion of Advance Directives occurred with: Patient Does the patient have a Living Will? No Does the patient have Health Care Power of Dumpster Driver? No Full Code 01/15/2016 3:25 PM 01/18/2016 6:24 PM Thi s order reflects the patients wishes and were consensually agreed upon. Question Answer Comments Discussion of Advance Directives occurred with: Patient Does the patient have a Living Will? No Does the patient have Health Care Power of Dumpster Driver? No Care Teams Construction Secretary Relationship Specialty Start Date End Date Michelle Borrego DO [address] [place] [address] [place] [address] PCP - General Internal Medicine 06/07/16 documented as of this encounter
--- OUTSIDE RECORDS SUMMARY | 2023-04-17 17:23 | External Medical Summary | Summary of Care ---
Author Name Unknown Organization [facility] Address [address] [facility] [address] Phone [phone] Care Team Providers Care Offal Worker Name Role Phone Borrego, Michelle Mari KEITA Primary Care Provider [phone] Reason for Visit * Reason Onset Date Comments Appointment 04/10/2023 Encounter Details Date Type Department Care Team (Late st Contact Info) Description 04/10/2023 Telephone Gastroenterology, [facility] [address] [place] [address] Denise Trevino CRNP [address] [place] [address] Appointment Allergies Active Allergy Reactions Criticality Noted [...] MCG/0.3 mL, 12 YRS AND ABOVE, IM ([employer]-Comirnat) 01/15/2023 COVID-19, mRNA, LNP-s, PF, B ooster, [...] encounter Miscellaneous Notes * Telephone Encounter - Denise Trevino CRNP - 04/10/2023 11:15 AM EST Pt admitted at [facility] for n/v, suspected ETOH hepatitis, ? [...] Encounter ENDO [facility], Endoscopy Room [facility] [address] [place] [phone] Jamil Bond MD [address] [place] [address] 05/05/2023 11:15 AM EST - 05/05/2023 11:45 AM EST Surgery ENDO [facility], Endoscopy Room [facility] [address] [place] [phone] Jamil Bond MD [address] [place] [address] ESOPHAGOGASTRODUODENOSCOPY (EGD), FLEXIBLE, TRANSORAL, DIAGNOSTIC 05/06/2023 8:30 AM EST Imaging Radiology [address] [place] [address] 06/24/2023 8:30 AM EDT Office Visit Family Medicine [address] [place] [phone] Michelle Borrego[address] [place] [address] Scheduled Procedures Name Priority Associated Diagnoses Date/Ti [...] the patient have Health Care Power of Air Traffic Controller Center? No Code Status History Code Status Date [...] the patient have Health Care Power of Air Traffic Controller Center? No Full Code 02/10/2016 5:50 PM 02/20/2016 12:09 AM Th is order reflects the patients wishes and were consensually agreed upon. Question Answer Comments Discussion of Advance Directives occurred with: Patient Does the patient have a Living Will? No Does the patient have Health Care Power of Air Traffic Controller Center? No Full Code 01/15/2016 3:25 PM 01/18/2016 6:24 PM Thi s order reflects the patients wishes and were consensually agreed upon. Question Answer Comments Discussion of Advance Directives occurred with: Patient Does the patient have a Living Will? No Does the patient have Health Care Power of Air Traffic Controller Center? No Care Teams Offal Worker Relationship Specialty Start Date End Date Michelle Borrego DO [address] [place] [address] [place] [phone] PCP - General Internal Medicine 06/07/16 documented as of this encounter
[2023-04-17] MEDS ORDERED: ONDANSETRON INJ 2 MG/ML 2 ML VIAL IV PRN (17:25)
[2023-04-17] MEDS: CHERRY SYRUP 5 ML UDP PO SCH ×2 (17:46→23:06)
[2023-04-17] MEDS: VANCOMYCIN HCL 125 MG/2.5ML SOLN PO SCH ×2 (17:46→23:06)
[2023-04-17] MEDS: metroNIDAZOLE 500 MG/100 ML BAG IV SCH (20:44)
[2023-04-17] MEDS: busPIRone 5 MG TAB PO SCH (20:45)
[2023-04-17] MEDS: ZOLPIDEM TARTRATE 5 MG TAB PO PRN (20:46)
[2023-04-17] MEDS ORDERED: metroNIDAZOLE 500 MG/100 ML BAG IV SCH (21:00)
[2023-04-18] MEDS: metroNIDAZOLE 500 MG/100 ML BAG IV SCH ×3 (04:21→20:38)
[2023-04-18] MEDS: CHERRY SYRUP 5 ML UDP PO SCH ×3 (04:22→17:47)
[2023-04-18] MEDS: VANCOMYCIN HCL 125 MG/2.5ML SOLN PO SCH ×3 (04:22→17:47)
[2023-04-18 06:28] LABS: Hematocrit (blood only) 41.5 % (42.0-52.0); Hemoglobin 13.7 g/dl (14.0-18.0); Mean Corpuscular Hemoglobin 32.9 pg (25.0-34.0); Mean Corpuscular Volume 99.8 fL (80.0-100.0); Mean Platelet Volume 10.3 fL (9.4-12.4); Platelet Count 144 K/uL (130-400); RDW Coefficient of Variation 12.7 % (11.5-14.5); RDW Standard Deviation 46.5 fL (36.4-46.3); Red Blood Count 4.16 M/uL (4.70-6.10); White Blood Count 4.31 K/ul (4.8-10.8)
[2023-04-18 06:42] LABS: INR 1.2 (0.9-1.1); Prothrombin Time 13.3 Seconds (9.0-12.0)
[2023-04-18 06:46] LABS: Albumin Globulin Ratio 0.8 (0.9-2); Albumin Level 3.2 gm/dl (3.4-5.0); BUN Creatinine Ratio 13.5 (10-20); Bilirubin,Total 2.4 mg/dl (0.2-1.0); Calcium 8.2 mg/dl (8.6-10.3); Creatinine Clr Calc Pharmacy 116.8 ml/min; Est GFR (African American) 125.5 ml/min; Est GFR (Non-African American) 108.3 ml/min; Globulin 4.2 gm/dl (2.5-4.0); Potassium 3.4 mmol/L (3.5-5.1); Total Protein 7.4 gm/dl (6.0-8.3)
--- NOTE | 2023-04-18 07:08 | Surgery Progress Note ---
Date of Service April 18, 2023 Assessment & Plan (1) Choledocholithiasis: (2) Nausea & vomiting: Plan 47-year-old gentleman with alcoholic cirrhosis presents with choledocholithiasis and possible early acute cholecystitis. He is set up for ERCP today. He is a very poor surgical candidate given his cirrhosis, and I would avoid surgery except for urgent/emergent situation. We will continue to follow. Admission and Anticipated Discharge Date Admission Date: April 17, 2023 Subjective States he is feeling better today. Less tenderness. No nausea or vomiting. Physical Exam Physical Exam: AFVSS NAD, A&O x 3 Abdomen: Soft, mild TTP RUQ Mild distention Results & Data Vital Signs (Past 12 Hours) Vital Signs Temp Pulse Pulse Resp BP Pulse Ox O2 Del Method 04/18/23 04:45 36.5 C 70 18 92/56 L 95 Room Air 04/17/23 23:18 74 04/17/23 19:29 36.9 C 62 18 135/81 95 Room Air (2) Nausea & vomiting Vomiting type: unspecified Qualified Code(s): R11.2 - Nausea with vomiting, unspecified
[2023-04-18] MEDS: CITALOPRAM 20 MG TAB PO SCH (09:03)
[2023-04-18] MEDS: busPIRone 5 MG TAB PO SCH ×2 (09:03→20:38)
[2023-04-18] MEDS ORDERED: LACTATED RINGER'S 1,000 ML IV SCH (10:45)
--- NOTE | 2023-04-18 12:00 | Anesthesiology Consultation ---
Date of Service April 18, 2023 Assessment & Plan (1) Encounter for pre-operative examination: Chart Review Chart Review: Acceptable Risk for Surgery History Surgery Operation Date: 04/18/23 13:05 Proposed Procedures p Endoscopic Retrograde Cholangiopancreatogram - Karo Duran MD Height/Weight Height: 5 ft 8 in Weight: 80.1 kg Allergies Allergy/AdvReac Type Severity Reaction Status Date / Time aspirin AdvReac Unknown THINS Verified 04/09/23 20:22 BLOOD, NOSE BLEEDS Medications Home Medications Medication Instructions Recorded Confirmed Last Taken buspirone 5 mg tablet 5 mg PO BID 06/10/18 04/17/23 04/17/23 nadolol 20 mg tablet 20 mg PO QPM 06/10/18 04/17/23 04/06/23 potassium chloride 10 mEq 10 meq PO QAM 06/10/18 04/17/23 04/17/23 tablet,extended release ursodiol 300 mg capsule 300 mg PO BID 06/10/18 04/17/23 04/17/23 zolpidem 5 mg tablet (Ambien) 5 mg PO HS PRN Sleep 06/10/18 04/17/23 1 Day Ago ~12/07/22 furosemide 20 mg tablet 20 mg PO QAM 11/14/22 04/17/23 04/17/23 spironolactone 25 mg tablet 25 mg PO QAM 11/14/22 04/17/23 04/17/23 citalopram 10 mg tablet 10 mg PO QAM 04/09/23 04/17/23 04/17/23 folic acid 1 mg tablet 1 mg PO QAM #30 tabs 04/14/23 04/17/23 04/17/23 thiamine HCl (vitamin B1) 100 mg 100 mg PO QAM #30 tabs 04/14/23 04/17/23 04/17/23 tablet vancomycin 125 mg capsule 125 mg PO Q6H 7 days #28 caps 04/14/23 04/17/23 04/17/23 pantoprazole 40 mg tablet,delayed 40 mg PO QAM 04/17/23 04/17/23 04/17/23 release Active Medications Generic Name Dose Route Start Last Admin Trade Name Freq PRN Reason Stop Dose Admin Buspirone HCl 5 mg 04/17/23 21:00 01/19/24 09:03 Buspirone 5 Mg Tab PO 05/17/23 20:59 5 mg BID LANDRY Administration Gaona Syrup 5 ml 04/17/23 18:00 04/18/23 04:22 Gaona Syrup 5 Ml Udp PO 04/27/23 17:59 5 ml Q6 LANDRY Administration Citalopram Hydrobromide 10 mg 04/18/23 09:00 04/18/23 09:03 Citalopram 20 Mg Tab PO 05/18/23 08:59 10 mg QAM LANDRY Administration Metronidazole 500 mg in 100 mls @ 100 mls/hr 04/17/23 21:00 04/18/23 05:34 Flagyl IV 04/27/23 20:59 Infused Q8H LANDRY Infusion Protocol Lactated Ringer's 1,000 mls @ 15 mls/hr 04/18/23 10:45 04/18/23 11:49 Lr IV 05/18/23 10:44 15 mls/hr .Q24H LANDRY Administration Vancomycin HCl 125 mg 04/17/23 18:00 04/18/23 04:22 Vancomycin Hcl 125 Mg/2.5ml Soln PO 04/27/23 17:59 125 mg Q6 LANDRY Administration Zolpidem Tartrate 5 mg 04/17/23 17:25 04/17/23 20:46 Zolpidem Tartrate 5 Mg Tab PO 05/17/23 17:24 5 mg HS PRN Administration Sleep NPO Date Last Intake of Fluids: 04/18/23 Time Last Intake of Fluids: 09:03 Date Last Intake of Solids: 04/16/23 Time Last Intake of Solids: 12:00 Past Medical History Medical History Depression Anxiety Thrombocytopenia Ascites Portal hypertension Esophageal varices Alcoholic cirrhosis of liver History of macrocytic anemia History of alcohol abuse Past Family History Family History Mother Diabetes Father Prostate cancer Other No family history of adverse response to anesthesia Past Surgical History Surgical History History of esophagogastroduodenoscopy (EGD) Including procedures for esophageal varices banding History of tonsillectomy Social History Smoking Status: Never smoker tobacco type: smokeless tobacco Do You Dip or Chew Tobacco: Yes Hx Alcohol Use: No Alcohol type: hard liquor alcohol intake frequency: 3 or more drinks per day Hx Substance Use: No substance use type: does not use Physical Exam Vital Signs Last Vital Signs Temp 37.1 C 04/18/23 11:44 Pulse 56 L 04/18/23 11:44 Resp 12 04/18/23 11:44 BP 127/81 04/18/23 11:44 Pulse Ox 97 04/18/23 11:44 O2 Del Method Room Air 04/18/23 11:44 Testing Laboratory Results 04/18/23 05:37 04/18/23 05:37 PT 13.3 Seconds (9.0-12.0) H 04/18/23 05:37 INR 1.2 (0.9-1.1) H 04/18/23 05:37 Urine Color Dark Yellow 04/17/23 Unknown Urine Appearance Clear (Clear) 04/17/23 Unknown Urine pH 5.0 (4.5-7.5) 04/17/23 Unknown Ur Specific [place] 1.013 (1.000-1.030) 04/17/23 Unknown Urine Protein Negative (Negative) 04/17/23 Unknown Urine Glucose (UA) Negative (Negative) 04/17/23 Unknown Urine Ketones Negative (Negative) 04/17/23 Unknown Urine Nitrite Negative (Negative) 04/17/23 Unknown Ur Leukocyte Esterase Negative (Negative) 04/17/23 Unknown Electrocardiogram Date: 04/17/23 Findings: + SB @ (38)
--- NOTE | 2023-04-18 12:06 | History & Physical Bridge Note ---
Date of Service April 18, 2023 History & Physical Bridge Note I have examined the patient, reviewed the History & Physical and in the interval since the performance of the History & Physical I have noted the following changes of clinical significance: no changes noted ERCP Patient was explained in detail regarding risks, benefits, limitations and alternatives of the above endoscopic procedure. Risks of intravenous sedation used for procedure were also explained. Risks include, but not limited to perforation, bleeding, infection, respiratory distress, cardiac arrest and . Patient is also aware about the possibility of missed lesion. Patient's questions were answered. The patient verbalized understanding the information and agreed to undergo the procedure.
[2023-04-18] MEDS ORDERED: fentaNYL citrate PF 100 MCG/2 ML VIAL IV PRN (12:14)
[2023-04-18] MEDS ORDERED: ATROPINE SULFATE 0.1 MG/ML 10ML SYR IV PRN (12:14)
[2023-04-18] MEDS ORDERED: fentaNYL citrate PF 100 MCG/2 ML VIAL ONE (12:16)
[2023-04-18] MEDS ORDERED: MIDAZOLAM HCL 1 MG/ML 2ML VIAL ONE ×2 (12:16→12:50)
[2023-04-18] MEDS ORDERED: PROPOFOL IV EMULSION 10 MG/ML 20 ML VIAL IV ONE (12:21)
[2023-04-18] MEDS ORDERED: LIDOCAINE 2% 2 ML VIAL/AMP(20MG/ML) INFIL ONE (12:21)
[2023-04-18] MEDS ORDERED: ONDANSETRON INJ 2 MG/ML 2 ML VIAL ONE (12:21)
[2023-04-18] MEDS ORDERED: cefTRIAXone SODIUM 2,000 MG in DEXTROSE 5 % MINI-B 50 ML IV SCH (13:00)
--- NOTE | 2023-04-18 13:03 | Operative Report ---
Post Operative Report Pre & Post Diagnosis Operation Date: 04/18/23 13:05 <No data on this case meets the specified criteria> I identified the patient and participated in the time-out.: Yes Procedure Operation Date: 04/18/23 13:05 <No data on this case meets the specified criteria> Surgeon Karo Duran MD Paper Folder None Estimated Blood Loss 0 Findings See Below (Choledocholithiasis removed) Specimens None Description of Procedure ERCP I attest to the content of the Intraoperative Record and any orders documented therein. Any exceptions are noted below.
--- NOTE | 2023-04-18 13:17 | GI REPORT ---
Patient Name: Darrel Guillory Procedure Date: 04/18/2023 12:44 PM Date of : 1975 Admit Type: Inpatient Age: 47 Gender: Male Attending MD: Karo Duran MD, Procedure: Upper GI endoscopy Providers: Karo Duran MD Referring MD: Vlad Castañeda Md Indications: Follow-up of esophageal varices Medicines: Propofol per Anesthesia Complications: No immediate complications. Estimated Blood Loss: Estimated blood loss: none. Procedure: Pre-Anesthesia Assessment: - Prior to the procedure, a History and Physical was performed, and patient medications, allergies and sensitivities were reviewed. The patient's tolerance of previous anesthesia was reviewed. - The risks and benefits of the procedure and the sedation options and risks were discussed with the patient. All questions were answered and informed consent was obtained. - Patient identification and proposed procedure were verified prior to the procedure by the physician and the nurse. The procedure was verified in the procedure room. - Pre-procedure physical examination revealed no contraindications to sedation. After obtaining informed consent, the endoscope was passed under direct vision. Throughout the procedure, the patient's blood pressure, pulse, and oxygen saturations were monitored continuously. The Endoscope was introduced through the mouth, and advanced to the second part of duodenum. The upper GI endoscopy was accomplished without difficulty. The patient tolerated the procedure well. Findings: Grade I varices were found in the lower third of the esophagus. A post variceal banding scar was found in the lower third of the esophagus. Mild portal hypertensive gastropathy was found in the stomach. The duodenal bulb and second portion of the duodenum were normal. Impression: - Grade I esophageal varices. - Portal hypertensive gastropathy. - Normal duodenal bulb and second portion of the duodenum. - No specimens collected. Recommendation: - Perform an ERCP today. - Surveillance EGD in one year. Karo Duran MD 04/18/2023 1:17:31 PM This report has been signed electronically. Note Initiated On: 04/18/2023 12:44 PM Number of Addenda: 0 I attest to the content of the Intraoperative Record and orders documented therein, exceptions below {[id number]}
--- NOTE | 2023-04-18 13:21 | GI REPORT ---
Patient Name: Darrel Guillory Procedure Date: 04/18/2023 12:25 PM Date of : 1975 Admit Type: Inpatient Age: 47 Gender: Male Attending MD: Karo Duran MD, Procedure: ERCP Providers: Karo Duran MD Referring MD: Vlad Castañeda Md Indications: Bile duct stone on Computed Tomogram Scan, For therapy of bile duct stone(s), Elevated liver enzymes Medicines: Propofol per Anesthesia Complications: No immediate complications. Estimated Blood Loss: Estimated blood loss: none. Procedure: Pre-Anesthesia Assessment: - Prior to the procedure, a History and Physical was performed, and patient medications, allergies and sensitivities were reviewed. The patient's tolerance of previous anesthesia was reviewed. - The risks and benefits of the procedure and the sedation options and risks were discussed with the patient. All questions were answered and informed consent was obtained. - Patient identification and proposed procedure were verified prior to the procedure by the physician and the nurse. The procedure was verified in the procedure room. - Pre-procedure physical examination revealed no contraindications to sedation. After obtaining informed consent, the scope was passed under direct vision. Throughout the procedure, the patient's blood pressure, pulse, and oxygen saturations were monitored continuously. The Duodenoscope was introduced through the mouth, and advanced to the duodenum and used to inject contrast into the bile duct. The ERCP was accomplished without difficulty. The patient tolerated the procedure well. Findings: The middle or intermediate school principal film was normal. The esophagus was successfully intubated under direct vision. The scope was advanced to a normal major papilla in the descending duodenum without detailed examination of the pharynx, larynx and associated structures, and upper GI tract. The upper GI tract was grossly normal. A 0.025 inch x 270 cm angled Visiglide wire was passed into the biliary tree. The short-nosed traction sphincterotome was passed over the guidewire and the bile duct was then deeply cannulated. Contrast was injected. I personally interpreted the bile duct images. Ductal flow of contrast was adequate. Image quality was adequate. Contrast extended to the main bile duct. Opacification of the entire biliary tree was successful. The maximum diameter of the ducts was 9 mm. Biliary sphincterotomy was made with a monofilament traction (standard) sphincterotome using ERBE electrocautery. There was no post-sphincterotomy bleeding. The biliary tree was swept with a 15 mm balloon starting at the bifurcation. Four stones were removed. No stones remained. Impression: - Choledocholithiasis was found. Complete removal was accomplished by biliary sphincterotomy and balloon extraction. Recommendation: - [facility]. - Follow up with general surgery to discuss cholecystectomy. Karo Duran MD 04/18/2023 1:20:10 PM This report has been signed electronically. Note Initiated On: 04/18/2023 12:25 PM Number of Addenda: 0 I attest to the content of the Intraoperative Record and orders documented therein, exceptions below {[id number]}
--- NOTE | 2023-04-18 13:22 | Fluoroscopy Report ---
[place] ERCP biliary ductal CLINICAL HISTORY: ERCP IN [facility]acute right upper quadrant abdominal pain COMPARISON STUDY: CT 04/17/2023 FLUOROSCOPY TIME: 50 seconds FLUOROSCOPY IMAGES: 12 EXPOSURE DOSE: 33.29 mGy FINDINGS: Endoscope within the duodenum with retrograde cannulation of the common bile duct and sweep . Opacified cystic duct. Contrast is seen extending into the duodenum. No definitive biliary filling defects, strictures or significant dilation. Small amount of contrast is seen within the gallbladder lumen. IMPRESSION: Fluoroscopic assistance as above. ACT 112: Negative or not required by law. Electronically signed by: Jhonny Fletcher M.D. 04/18/2023 1:21 PM
--- NOTE | 2023-04-18 13:24 | Anesthesiology Progress Note ---
Date of Service April 18, 2023 Anesthesia Post Procedure Vital Signs Vital Signs: Temp Pulse Pulse Resp BP BP Pulse Ox 04/18/23 13:20 36.5 C 70 16 123/82 98 04/18/23 13:10 36.5 C 72 14 109/72 98 04/18/23 11:44 37.1 C 56 L 12 127/81 97 04/18/23 11:28 36.6 C 56 L 20 108/71 96 04/18/23 10:22 63 04/18/23 07:42 36.9 C 52 L 20 107/70 97 04/18/23 04:45 36.5 C 70 18 92/56 L 95 04/17/23 23:18 74 04/17/23 19:29 36.9 C 62 18 135/81 95 04/17/23 18:26 57 L 04/17/23 18:07 36.6 C 62 18 145/96 H 98 04/17/23 16:16 55 L 04/17/23 15:48 69 16 116/72 96 04/17/23 14:36 69 16 147/93 H 96 O2 Del Method O2 Flow Rate 04/18/23 13:20 Nasal Cannula 2 04/18/23 13:10 Nasal Cannula 2 04/18/23 11:44 Room Air 04/18/23 11:28 Room Air 04/18/23 10:22 04/18/23 07:42 Room Air 04/18/23 04:45 Room Air 04/17/23 23:18 04/17/23 19:29 Room Air 04/17/23 18:26 04/17/23 18:07 Room Air 04/17/23 16:16 04/17/23 15:48 04/17/23 14:36 Pain Intensity Abdomen: Pain Intensity: 0 Transfer of Care Handoff Completed per policy Notes Mental Status: alert / awake / arousable Patient Amnestic to Procedure: Yes Nausea / Vomiting: adequately controlled Pain: adequately controlled Airway Patency, RR, SpO2: stable & adequate BP & HR: stable & adequate Hydration State: stable & adequate Anesthetic Complications: no major complications apparent and Pt Satisfied with anesthetic care
--- NOTE | 2023-04-18 15:36 | Hospitalist Progress Note ---
Date of Service April 18, 2023 Assessment & Plan (1) Choledocholithiasis: (2) Cholecystitis: (3) Alcoholic cirrhosis of liver: (4) Nausea & vomiting: (5) Anxiety: (6) Depression: Plan This is a 47yo M with a PMH of alcoholic cirrhosis with secondary esophageal varices, history of ongoing intermittent alcohol use with recent relapse earlier this month, chronic cholecystitis, mood disorder, insomnia and other medical problems listed below who presents with nausea and abdominal pain over the past 3 days with evidence of cholelithiasis with choledocholithiasis on CT scan . Choledocholithiasis Cholecystitis Was admitted from 04/10-04/14 for alcoholic hepatitis and diarrhea Returns with nausea, abdominal pain and recurrent diarrhea over the past few days CT abd/pelvis with 1. Cholelithiasis with choledocholithiasis and mildly distended common bile duct. There is also a stone seen within the cystic duct. The gallbladder is mildly distended. An early acute cholecystitis would be the diagnosis of exclusion. Surgical consultation recommended. 2. Cirrhotic liver with evidence for portal hypertension. 3. Left-sided nephrolithiasis. No hydronephrosis. 4. A healing right lateral 10th rib fracture. Status post ERCP on April 18, 2023. Found to have choledocholithiasis; removed by biliary sphincterotomy and balloon extraction Continue on IV antibiotics. On clear liquid diet; advance as tolerated Surgery on board; recommend conservative care. Poor surgical candidate given cirrhosis. History of alcohol use Etoh cirrhosis Denies etoh use for past 2 weeks No signs/sx of etoh withdrawal Continue folic acid, thiamine supplementation On Ursodiol, lasix, spironolactone, nadolol for cirrhosis -currently on hold. May need to continue holding with HR noted in 40-50s C diff gene positive on 04/10 Started on 10d empiric course of vanco on previous admission with positive c diff gene, toxin negative Symptoms improved on vanco until yesterday but no additional episodes today Appreciate GI input regarding continuation of vanco Mood disorder Chronic, stable. Continue buspirone, citalopram once diet is advanced DVT Ppx: SCDs Code status: FULL PCP: [facility]mo Dispo: Admitting to [facility] Time spent evaluating patient, direct bedside care, chart review, placing orders, interpretation of diagnostic studies, discussion with consultants, patient, and family members, as well as other required patient management activities is 50 minutes Please note the above document was generated using voice recognition software. It may contain grammatical, syntax or spelling errors. Any formal questions or concerns about the content, text or information contained within the body of this dictation should be directly addressed to the provider for clarification Admission and Anticipated Discharge Date Admission Date: April 17, 2023 Subjective Patient seen and examined at bedside. Comfortable; not in distress. Patient underwent ERCP today. No abdominal pain. Review of Systems Review of Systems: All systems reviewed & are unremarkable except as noted in Subjective Physical Exam Physical Exam: Constitutional: Alert oriented x 3; not in distress. Respiratory: normal respiratory effort, lungs clear to auscultation, no wheeze, rales, rhonchi. Normal insp/exp effort, no accessory muscle use Cardiovascular: RRR, no murmur, no edema Vessels: no JVD or carotid bruit Chest: normal inspection of chest Abdomen: Slightly distended, nontender. Bowel sounds present. Musculoskeletal: no cyanosis or clubbing, extremities motor strength 5/5 Skin: no rashes, warm and dry normal turgor Neurologic: PERRL, EOMI, accommodation nl, no face palsy, no dysarthria CN's II- XI intact bilaterally and moves all extremities Psychiatric: A+Ox3, euthymic affect Results & Data Results & Data Vital Signs (Past 12 Hours) Vital Signs Temp Pulse Pulse Resp BP BP Pulse Ox 04/18/23 15:33 36.7 C 53 L 20 123/74 99 04/18/23 14:26 36.5 C 55 L 18 121/75 96 04/18/23 13:20 36.5 C 70 16 123/82 98 04/18/23 13:10 36.5 C 72 14 109/72 98 04/18/23 11:44 37.1 C 56 L 12 127/81 97 04/18/23 11:28 36.6 C 56 L 20 108/71 96 04/18/23 10:22 63 04/18/23 07:42 36.9 C 52 L 20 107/70 97 04/18/23 04:45 36.5 C 70 18 92/56 L 95 O2 Del Method O2 Flow Rate 04/18/23 15:33 Room Air 04/18/23 14:26 Room Air 04/18/23 13:20 Nasal Cannula 2 04/18/23 13:10 Nasal Cannula 2 04/18/23 11:44 Room Air 04/18/23 11:28 Room Air 04/18/23 10:22 04/18/23 07:42 Room Air 04/18/23 04:45 Room Air (3) Alcoholic cirrhosis of liver Ascites presence: unspecified Qualified Code(s): K70.30 - Alcoholic cirrhosis of liver without ascites (4) Nausea & vomiting Vomiting type: unspecified Qualified Code(s): R11.2 - Nausea with vomiting, unspecified
--- NOTE | 2023-04-18 19:12 | Electrocardiogram Report ---
Test Reason : Blood Pressure : / mmHG Vent. Rate : 051 BPM Atrial Rate : 051 BPM P-R Int : 128 ms QRS Dur : 092 ms QT Int : 458 ms P-R-T Axes : 057 072 035 degrees QTc Int : 422 ms Poor data quality, interpretation may be adversely affected Sinus bradycardia Otherwise normal ECG When compared with ECG of 09-APR-2023 18:25, Vent. rate has decreased BY 57 BPM Minimal criteria for Inferior infarct are no longer Present Confirmed by Raghu Lindsay ([id number]) on 04/18/2023 7:12:21 PM Referred By: REFERRED SELF Confirmed By:Raghu Lindsay
[2023-04-18] MEDS ORDERED: ALUMINUM/MAGNESIUM/SIMETH (MAALOX MAX) 30 ML UDC PO STA (19:40)
[2023-04-18] MEDS: ZOLPIDEM TARTRATE 5 MG TAB PO PRN (20:37)
[2023-04-19] MEDS: CHERRY SYRUP 5 ML UDP PO SCH ×5 (00:08→23:03)
[2023-04-19] MEDS: VANCOMYCIN HCL 125 MG/2.5ML SOLN PO SCH ×5 (00:08→23:03)
[2023-04-19] MEDS ORDERED: traMADol HCL 50 MG TABLET PO STA (04:06)
[2023-04-19] MEDS: metroNIDAZOLE 500 MG/100 ML BAG IV SCH ×3 (04:14→20:21)
--- NOTE | 2023-04-19 05:28 | Surgery Progress Note ---
Date of Service April 19, 2023 Assessment & Plan (1) Choledocholithiasis: Plan: Status post ERCP on 04/18/2023 (postop day #1) Continue analgesics Continue antiemetics Continue antibioticspatient is receiving Rocephin, Flagyl, and oral vancomycin Check a.m. labs when available Patient was previously evaluated by [facility] surgery and due to his underlying cirrhosis was felt to be a poor surgical candidate; will continue to monitor his progress without plans for surgical intervention unless an emergent situation develops (2) Cholecystitis: Admission and Anticipated Discharge Date Admission Date: April 17, 2023 Supervising Physician Co-Signing Physician Notes I saw and evaluated the patient with Jonathan Reyes PA-C and agree assessment and plan. 47-year-old with cirrhosis and choledocholithiasis s/p ERCP No plans for cholecystectomy Can advance diet as tolerated Surgery will sign off at this time, please call with any questions Subjective Since patient's ERCP he reports "burning" in his stomach. He did have some relief with antacids but also admitted to some right upper quadrant pain after consuming liquids following his procedure. He denies any fevers, shakes, or chills. He denies any nausea or vomiting. Physical Exam Gastrointestinal (Abdomen): At the time of my exam abdomen was soft and nondistended. Bowel sounds are present. There is no rebound tenderness or guarding. There is slight pain with palpation in the right upper quadrant. Results & Data Vital Signs (Past 12 Hours) Vital Signs Temp Pulse Pulse Resp BP BP Pulse Ox 04/19/23 04:00 37.1 C 75 18 111/66 92 04/18/23 23:23 73 04/18/23 23:00 36.8 C 73 18 118/72 96 04/18/23 19:19 48 L 04/18/23 19:00 36.6 C 61 18 124/81 96 O2 Del Method 04/19/23 04:00 Room Air 04/18/23 23:23 04/18/23 23:00 Room Air 04/18/23 19:19 04/18/23 19:00 Room Air PG Care Time/CCT Total # of Minutes Spent Total Time Spent with Patient: Total time spent is greater than 50% in coordination of care (as documented) at patient's floor/unit and/or counseling patient: Coding Level of Care Code 12612 SUB INP/OBS CARE Diagnoses Choledocholithiasis K80.50 Cholecystitis K81.9
[2023-04-19 06:40] LABS: Basophils # (auto) 0.04 K/uL (0.00-0.20); Basophils % (auto) 0.7 %; Eosinophils # (auto) 0.09 K/uL (0.00-0.50); Eosinophils % (auto) 1.6 %; Hematocrit (blood only) 40.1 % (42.0-52.0); Hemoglobin 13.6 g/dl (14.0-18.0); Immature Granulocytes # (auto) 0.01 K/uL (0.01-0.20); Immature Granulocytes % (auto) 0.2 %; Lymphocytes # (auto) 0.49 K/uL (1.20-3.40); Lymphocytes % (auto) 8.6 %; Mean Corpuscular Hemoglobin 33.6 pg (25.0-34.0); Mean Corpuscular Hgb Conc 33.9 g/dL (32.0-36.0); Mean Platelet Volume 10.4 fL (9.4-12.4); Monocytes # (auto) 0.78 K/uL (0.11-0.59); Monocytes % (auto) 13.6 %; Neutrophils # (auto) 4.31 K/uL (1.40-6.50); Neutrophils % (auto) 75.3 %; Platelet Count 156 K/uL (130-400); RDW Coefficient of Variation 12.4 % (11.5-14.5); RDW Standard Deviation 45.2 fL (36.4-46.3); Red Blood Count 4.05 M/uL (4.70-6.10); White Blood Count 5.72 K/ul (4.8-10.8)
[2023-04-19 07:22] LABS: Albumin Globulin Ratio 0.8 (0.9-2); Albumin Level 3.2 gm/dl (3.4-5.0); Bilirubin,Total 4.8 mg/dl (0.2-1.0); Calcium 8.5 mg/dl (8.6-10.3); Creatinine Clr Calc Pharmacy 99.4 ml/min; Est GFR (African American) 117.5 ml/min; Est GFR (Non-African American) 101.3 ml/min; Globulin 4.2 gm/dl (2.5-4.0); Potassium 3.7 mmol/L (3.5-5.1); Total Protein 7.4 gm/dl (6.0-8.3)
[2023-04-19] MEDS: CITALOPRAM 20 MG TAB PO SCH (09:00)
[2023-04-19] MEDS: CIPROFLOXACIN / D5W 400 MG/200 ML BAG IV SCH ×2 (09:00→20:21)
[2023-04-19] MEDS: busPIRone 5 MG TAB PO SCH ×2 (10:00→20:21)
--- NOTE | 2023-04-19 12:34 | Hospitalist Progress Note ---
Date of Service April 19, 2023 Assessment & Plan (1) Choledocholithiasis: (2) Cholecystitis: (3) Alcoholic cirrhosis of liver: (4) Nausea & vomiting: (5) Anxiety: (6) Depression: Plan This is a 47yo M with a PMH of alcoholic cirrhosis with secondary esophageal varices, history of ongoing intermittent alcohol use with recent relapse earlier this month, chronic cholecystitis, mood disorder, insomnia and other medical problems listed below who presents with nausea and abdominal pain over the past 3 days with evidence of cholelithiasis with choledocholithiasis on CT scan . Choledocholithiasis Cholecystitis Was admitted from 04/10-04/14 for alcoholic hepatitis and diarrhea Returns with nausea, abdominal pain and recurrent diarrhea over the past few days CT abd/pelvis with 1. Cholelithiasis with choledocholithiasis and mildly distended common bile duct. There is also a stone seen within the cystic duct. The gallbladder is mildly distended. An early acute cholecystitis would be the diagnosis of exclusion. Surgical consultation recommended. 2. Cirrhotic liver with evidence for portal hypertension. 3. Left-sided nephrolithiasis. No hydronephrosis. 4. A healing right lateral 10th rib fracture. Status post ERCP on April 18, 2023. Found to have choledocholithiasis; removed by biliary sphincterotomy and balloon extraction Continue on IV antibiotics. Ciprofloxacin and Flagyl. Ceftriaxone changed to ciprofloxacin given elevation in total bilirubin. On clear liquid diet; advance as tolerated Surgery on board; recommend conservative care. Poor surgical candidate given cirrhosis. History of alcohol use Etoh cirrhosis Denies etoh use for past 2 weeks No signs/sx of etoh withdrawal Continue folic acid, thiamine supplementation On Ursodiol, lasix, spironolactone, nadolol for cirrhosis -currently on hold. May need to continue holding with HR noted in 40-50s C diff gene positive on 04/10 Started on 10d empiric course of vanco on previous admission with positive c diff gene, toxin negative No diarrhea presently. Mood disorder Chronic, stable. Continue buspirone, citalopram once diet is advanced DVT Ppx: SCDs Code status: FULL PCP: [facility]mo Dispo: Admitting to [facility]. Patient underwent ERCP on April 18, 2023 for choledocholithiasis. Liver enzymes uptrending with elevated bilirubin. Continue to monitor inpatient. Repeat CMP tomorrow. Time spent evaluating patient, direct bedside care, chart review, placing orders, interpretation of diagnostic studies, discussion with consultants, patient, and family members, as well as other required patient management activities is 50 minutes Please note the above document was generated using voice recognition software. It may contain grammatical, syntax or spelling errors. Any formal questions or concerns about the content, text or information contained within the body of this dictation should be directly addressed to the provider for clarification Admission and Anticipated Discharge Date Admission Date: April 17, 2023 Subjective Patient seen and examined at bedside. He reports mild abdominal discomfort. Denies fever, chills, chest pain or shortness of breath. Review of Systems Review of Systems: All systems reviewed & are unremarkable except as noted in Subjective Physical Exam Physical Exam: Constitutional: Alert oriented x 3; not in distress. Respiratory: normal respiratory effort, lungs clear to auscultation, no wheeze, rales, rhonchi. Normal insp/exp effort, no accessory muscle use Cardiovascular: RRR, no murmur, no edema Vessels: no JVD or carotid bruit Chest: normal inspection of chest Abdomen: Slightly distended, nontender. Bowel sounds present. Musculoskeletal: no cyanosis or clubbing, extremities motor strength 5/5 Skin: no rashes, warm and dry normal turgor Neurologic: PERRL, EOMI, accommodation nl, no face palsy, no dysarthria CN's II- XI intact bilaterally and moves all extremities Psychiatric: A+Ox3, euthymic affect Results & Data Results & Data Vital Signs (Past 12 Hours) Vital Signs Temp Pulse Pulse Pulse Resp BP Pulse Ox 04/19/23 11:40 36.7 C 63 18 115/76 94 04/19/23 08:01 37.1 C 76 18 119/74 95 04/19/23 07:08 66 04/19/23 04:00 37.1 C 75 18 111/66 92 O2 Del Method 04/19/23 11:40 Room Air 04/19/23 08:01 Room Air 04/19/23 07:08 04/19/23 04:00 Room Air (3) Alcoholic cirrhosis of liver Ascites presence: unspecified Qualified Code(s): K70.30 - Alcoholic cirrhosis of liver without ascites (4) Nausea & vomiting Vomiting type: unspecified Qualified Code(s): R11.2 - Nausea with vomiting, unspecified
[2023-04-19] MEDS: ZOLPIDEM TARTRATE 5 MG TAB PO PRN (20:29)
[2023-04-20] MEDS ORDERED: ALUMINUM/MAGNESIUM/SIMETH (MAALOX MAX) 30 ML UDC PO STA (01:44)
[2023-04-20] MEDS: metroNIDAZOLE 500 MG/100 ML BAG IV SCH (05:27)
[2023-04-20] MEDS: VANCOMYCIN HCL 125 MG/2.5ML SOLN PO SCH ×2 (05:28→11:24)
[2023-04-20] MEDS: CHERRY SYRUP 5 ML UDP PO SCH ×2 (05:28→11:24)
[2023-04-20 06:28] LABS: Basophils # (auto) 0.06 K/uL (0.00-0.20); Basophils % (auto) 1.4 %; Eosinophils # (auto) 0.12 K/uL (0.00-0.50); Eosinophils % (auto) 2.8 %; Hematocrit (blood only) 43.9 % (42.0-52.0); Hemoglobin 14.1 g/dl (14.0-18.0); Immature Granulocytes # (auto) 0.02 K/uL (0.01-0.20); Immature Granulocytes % (auto) 0.5 %; Lymphocytes # (auto) 0.97 K/uL (1.20-3.40); Lymphocytes % (auto) 22.7 %; Mean Corpuscular Hgb Conc 32.1 g/dL (32.0-36.0); Mean Corpuscular Volume 102.8 fL (80.0-100.0); Mean Platelet Volume 10.2 fL (9.4-12.4); Monocytes # (auto) 0.66 K/uL (0.11-0.59); Monocytes % (auto) 15.4 %; Neutrophils # (auto) 2.45 K/uL (1.40-6.50); Neutrophils % (auto) 57.2 %; Platelet Count 191 K/uL (130-400); RDW Coefficient of Variation 12.5 % (11.5-14.5); RDW Standard Deviation 47.2 fL (36.4-46.3); Red Blood Count 4.27 M/uL (4.70-6.10); White Blood Count 4.28 K/ul (4.8-10.8)
[2023-04-20 06:37] LABS: Albumin Globulin Ratio 0.7 (0.9-2); Albumin Level 3.2 gm/dl (3.4-5.0); BUN Creatinine Ratio 9.9 (10-20); Bilirubin,Total 2.8 mg/dl (0.2-1.0); Calcium 8.7 mg/dl (8.6-10.3); Creatinine Clr Calc Pharmacy 121.8 ml/min; Est GFR (African American) 127.7 ml/min; Est GFR (Non-African American) 110.2 ml/min; Globulin 4.3 gm/dl (2.5-4.0); Potassium 3.5 mmol/L (3.5-5.1); Total Protein 7.5 gm/dl (6.0-8.3)
[2023-04-20] MEDS ORDERED: HEPARIN SOD 5,000 UNIT/0.5 ML VIAL SQ SCH (09:00)
[2023-04-20] MEDS: CIPROFLOXACIN / D5W 400 MG/200 ML BAG IV SCH (09:14)
[2023-04-20] MEDS: busPIRone 5 MG TAB PO SCH (09:15)
[2023-04-20] MEDS: CITALOPRAM 20 MG TAB PO SCH (09:15)
--- NOTE | 2023-04-20 09:51 | Communication Note ---
Date of Service: April 20, 2023 LFTs are down to his baseline Cirrhosis related LFTs. Can be discharged home from [facility].
--- NOTE | 2023-04-20 13:47 | Discharge Summary ---
Date of Service April 20, 2023 Admission HPI Per Admitting Provider This is a 47yo M with a PMH of alcoholic cirrhosis with secondary esophageal varices, history of ongoing intermittent alcohol use with recent relapse earlier this month, chronic cholecystitis, mood disorder, insomnia and other medical problems listed below who presents with nausea and abdominal pain over the past 3 days. Was admitted to our service from 04/10-04/14 for alcoholic hepatitis and diarrhea. LFTs improved during admission and no steroids were indicated. C. difficile gene came back positive and patient was started on 10-day course of vancomycin within improvement of diarrhea. Initially felt well upon discharge but the next evening started to feel nauseous and then developed abdominal discomfort the following morning that he described as sore muscles all over his abdomen. Also had recurrence of diarrhea yesterday despite taking the p.o. vancomycin, endorsing 5-6 watery episodes. Endorses feeling intermittently sweaty with subjective fever but no chills as well as lightheadedness and some e xertional shortness of breath starting yesterday. Continues to have dizziness and poor appetite. Chronic dry cough. Denies any alcohol use for the past 2 weeks since previously admitted. Lives alone and states he has been taking all medications as prescribed since discharged home on the . Follows with Mónica KAY. Admission Exam Per Admitting Provider General: No acute distress Eyes: PERRL, conjunctivae normal, not pale ENMT: External ear and nose normal, oropharynx normal Respiratory: Normal respiratory effort, no respiratory distress, lungs clear to auscultation, no crackles and no wheezes Cardiovascular: Bradycardic S1 S2 Gastrointestinal (Abdomen): Abdomen is mildly distended, soft, mild central abd tenderness, no guarding, normal bowel sounds Musculoskeletal: No pedal edema Neurologic: Alert and oriented x 3, No focal weakness, sensation grossly intact, No asterixis Psychiatric: Alert and oriented x 3, euthymic affect Principal Diagnosis Choledocholithiasis status post ERCP Cholecystitis Discharge Exam Constitutional: Alert oriented x 3; not in distress. Respiratory: normal respiratory effort, lungs clear to auscultation, no wheeze, rales, rhonchi. Normal insp/exp effort, no accessory muscle use Cardiovascular: RRR, no murmur, no edema Vessels: no JVD or carotid bruit Chest: normal inspection of chest Abdomen: Slightly distended, nontender. Bowel sounds present. Musculoskeletal: no cyanosis or clubbing, extremities motor strength 5/5 Skin: no rashes, warm and dry normal turgor Neurologic: PERRL, EOMI, accommodation nl, no face palsy, no dysarthria CN's II- XI intact bilaterally and moves all extremities Psychiatric: A+Ox3, euthymic affect Discharge Data Allergies Allergy/AdvReac Type Severity Reaction Status Date / Time aspirin AdvReac Unknown THINS Verified 04/09/23 20:22 BLOOD, NOSE BLEEDS Consultations 04/17/23 13:32 ED Decision to Admit Stat 04/17/23 15:07 Consult Gastroenterology Routine Consult General Surgery Routine Procedures Performed Operation Date: 04/18/23 13:05 Actual Procedures p Esophagogastroduodenoscopy - Karo Duran MD p Endoscopic Retrograde Cholangiopancreato - Karo Duran MD Ordered Studies 04/17/23 11:45 CT abd pelvis IV con only Stat 04/18/23 [place] ERCP biliary ductal Routine Hospital Course (1) Choledocholithiasis: (2) Cholecystitis: (3) Alcoholic cirrhosis of liver: (4) Nausea & vomiting: (5) Anxiety: (6) Depression: Plan This is a 47yo M with a PMH of alcoholic cirrhosis with secondary esophageal varices, history of ongoing intermittent alcohol use with recent relapse earlier this month, chronic cholecystitis, mood disorder, insomnia and other medical problems listed below who presents with nausea and abdominal pain over the past 3 days with evidence of cholelithiasis with choledocholithiasis on CT scan . Choledocholithiasis Cholecystitis Was admitted from 04/10-04/14 for alcoholic hepatitis and diarrhea Returns with nausea, abdominal pain and recurrent diarrhea over the past few days CT abd/pelvis with 1. Cholelithiasis with choledocholithiasis and mildly distended common bile duct. There is also a stone seen within the cystic duct. The gallbladder is mildly distended. An early acute cholecystitis would be the diagnosis of exclusion. Surgical consultation recommended. 2. Cirrhotic liver with evidence for portal hypertension. 3. Left-sided nephrolithiasis. No hydronephrosis. 4. A healing right lateral 10th rib fracture. Status post ERCP on April 18, 2023. Found to have choledocholithiasis; removed by biliary sphincterotomy and balloon extraction Patient was treated with IV antibiotics during the hospitalization. Diet was advanced as tolerated after the ERCP. At discharge, patient was tolerating normal diet. He had minimal discomfort in the abdomen. GI cleared the patient for discharge from GI perspective. Surgery was also consulted during hospitalization; recommended conservative management for cholecystitis. Patient was discharged on oral antibiotics. Patient to follow-up with PCP. Please note the above document was generated using voice recognition software. It may contain grammatical, syntax or spelling errors. Any formal questions or concerns about the content, text or information contained within the body of this dictation should be directly addressed to the provider for clarification Total Time Total Time Spent Total Time Spent (In Minutes): 35 Total Time Includes: Examination of the Patient, Discharge Planning, Medication Reconciliation, Communication With Other Providers and Other Discharge Plan Discharge Items Patient Disposition: Home - Self-Care Reason For Visit: ETOH CIRRHOSIS, CHOLEDOCHO, ? C DIFF Discharge Diagnosis: Choledocholithiasis status post ERCP Gallstone Activity: Resume your previous activity Non-emergency contact: Primary Care Provider Call non-emergency contact if: you have any medication questions Follow-up/Referrals: Michelle Borrego DO [Primary Care Provider] - Diet: Regular Addtl Attending Provider Instructions: You were admitted to the hospital due to stone in the gallbladder and common bile duct. You underwent ERCP by GI on April 18, 2023; stones in the CBD was removed. You are prescribed ciprofloxacin and Flagyl (antibiotic) for 4 more days to complete antibiotic course. Please follow-up with your primary care doctor and GI. Pending Studies at Discharge: No Stand-Alone Forms: [facility] [employer], Work/School Release, Smoking Cessation Medications and DC Order Prescriptions: New ciprofloxacin HCl [Cipro] 500 mg tablet 500 mg PO BID 4 Days Qty: 8 0RF metronidazole 500 mg tablet 500 mg PO Q8H 4 Days Qty: 12 0RF oxycodone 5 mg capsule 5 mg PO DAILY PRN (Reason: pain) 5 Days Qty: 5 0RF Continued buspirone 5 mg Tablet 5 mg PO BID potassium chloride 10 mEq Tablet Extended Release 10 meq PO QAM nadolol 20 mg Tablet 20 mg PO QPM ursodiol 300 mg Capsule 300 mg PO BID zolpidem [Ambien] 5 mg Tablet 5 mg PO HS PRN (Reason: Sleep) spironolactone 25 mg tablet 25 mg PO QAM furosemide 20 mg tablet 20 mg PO QAM citalopram 10 mg tablet 10 mg PO QAM vancomycin 125 mg capsule 125 mg PO Q6H 7 Days Qty: 28 0RF thiamine HCl (vitamin B1) 100 mg Tablet 100 mg PO QAM Qty: 30 0RF folic acid 1 mg Tablet 1 mg PO QAM Qty: 30 0RF Changed pantoprazole 40 mg tablet,delayed release (DR/EC) 40 mg PO QAM Qty: 30 0RF Discharge Orders: Discharge Order (Routine); Ordered 04/20/23 Ordered By: Vlad Castañeda Admission Data Admit Date/Time: 04/17/23 14:42 Attending Provider: Vlad Castañeda Admit Provider: Sera Doshi I. Primary Care Provider: Michelle Borrego Other Providers: Sera Doshi I.; Karo Duran; Rai Martínez Other Interventions: Discharge Summary Assessment (RN) Last Done: 04/20/23 10:32
== END 2023-04-20 11:41 | disposition home or self-care (01) | DRG 445 ==
LOC: ED 11:14 → SUATTDRO 14:42 → EDINP 14:42 → 2W 17:25

== ENCOUNTER 2023-06-01 00:26 | Inpatient (IN) ==
[2023-06-01 01:22] LABS: Basophils # (auto) 0.05 K/uL (0.00-0.20); Basophils % (auto) 1.2 %; Eosinophils # (auto) 0.16 K/uL (0.00-0.50); Eosinophils % (auto) 3.7 %; Hematocrit (blood only) 48.4 % (42.0-52.0); Hemoglobin 16.8 g/dl (14.0-18.0); Immature Granulocytes # (auto) 0.01 K/uL (0.01-0.20); Immature Granulocytes % (auto) 0.2 %; Lymphocytes # (auto) 1.38 K/uL (1.20-3.40); Mean Corpuscular Hemoglobin 33.7 pg (25.0-34.0); Mean Corpuscular Hgb Conc 34.7 g/dL (32.0-36.0); Mean Platelet Volume 9.7 fL (9.4-12.4); Monocytes # (auto) 0.47 K/uL (0.11-0.59); Monocytes % (auto) 10.9 %; Neutrophils # (auto) 2.24 K/uL (1.40-6.50); Platelet Count 98 K/uL (130-400); RDW Coefficient of Variation 14.5 % (11.5-14.5); RDW Standard Deviation 51.8 fL (36.4-46.3); Red Blood Count 4.99 M/uL (4.70-6.10); White Blood Count 4.31 K/ul (4.8-10.8)
--- OUTSIDE RECORDS SUMMARY | 2023-06-01 01:30 | External Medical Summary | Summary of Care ---
Author Name Unknown Organization [facility] Address [address] [place] [address] Phone [phone] Care Team Providers Care Global Lead Name Role Phone Borrego Michelle Guerra Primary Care Provider [phone] Encounter Details Date Type Department Care Team (Late st Contact Info) Description 05/28/2023 Result Scan Unspecified Department <No scans attached> Allergies Active Allergy Reactions Criticality Noted Date Comments Aspirin Other (Please comment) 02/12/2016 Reports having a bloody nose. documented as of this encounter (statuses as of 05/29/2023) Medications Medication Sig Dispensed Refills Start Date End Date Status Ursodiol 300 MG Oral Capsule (Actigall) TAKE ONE CAPSULE BY MOUTH TWICE DAILY 180 Capsule 12 12/18/2022 Active Spironolactone 25 MG Oral Tablet (Aldactone) [...] 04/07/2023 Active Furosemide 20 MG Oral Tablet (Lasix)Indications:A lcoholic cirrhosis of liver with ascites (HCC) Take 1 Tablet by mouth in the morning. 90 Tablet 3 04/07/2023 Active Nadolol 20 MG Oral Tablet (Corgard) Take 1 Tablet by mouth in the morning. 90 Tablet 3 04/07/2023 Active Ciprofloxacin HCl 500 MG Oral Tablet (Cipro) Take 1 Tablet by mouth in the morning and 1 Tablet before bedtime. 0 04/20/2023 Active metroNIDAZOLE 500 MG Oral Tablet (Flagyl) Take 1 Tablet by mouth in the morning and 1 Tablet at noon and 1 Tablet before bedtime. 0 04/20/2023 Active Pantoprazole Sodium 20 MG Oral Tablet Delayed Release (Protonix) Take 2 Tablets by mouth in the morning. 0 04/21/2023 Active Zolpidem Tartrate 5 MG Oral Tablet (Ambien)Indications: History of alcohol abuse,Persistent insomnia Take 1 Tablet by mouth at bedtime as needed for Sleep. 30 Tablet 0 04/21/2023 Active Thiamine HCl 100 MG Oral Tablet (vitamin B-1) Take 1 Tablet by mouth in the morning. In the morning.. 0 04/14/2023 Active Vancomycin HCl 125 MG Oral Capsule (Vancocin) 1 Capsule. 0 04/14/2023 Active documented as of this encounter (statuses as of 05/29/2023) Active Problems Problem Noted Date Diagnosed Date [...] as of this encounter (statuses as of 05/29/2023) Resolved Problems Problem Noted Date Diagnosed Date [...] as of this encounter (statuses as of 05/29/2023) Immunizations Name Administration Dates Next Due COVID-19 [...] Upcoming Encounters Date Type Department Care Team (Late st Contact Info) Description 06/24/2023 8:30 AM EDT Office Visit Family Medicine [address] [place] [phone] [place] [id number] 09/01/2023 8:30 AM EDT Imaging Radiology [address] [place] [id number] 09/08/2023 3:00 PM EDT Office Visit Gastroenterology, [facility] [address] [place] [address] Anatoliy Meza CRNP [address] [place] [id number] Scheduled Procedures Name Priority Associated Diagnoses Date/Ti me ESOPHAGOGASTRODUODENOSCOPY ( EGD), FLEXIBLE, TRANSORAL, DIAGNOSTIC Recall Alcoholic cirrhosis of liver with ascites (HCC) Health Maintenance Due Date Last Done Comments Pneumococcal Vaccine: Pediatrics (0 to 5 Years) and At-Risk Patients (6 to 64 Years) (2 of 2 - PCV) 05/26/2018 05/26/2017 Colonoscopy 2018 Fecal Occult Blood Test 2018 Sigmoidoscopy 2018 Depression Screening 12/20/2020 12/21/2019 Cologuard 08/23/2025 08/23/2022, 07/30, 08/17/2022 Colorectal Cancer Screening 08/23/2025 Diabetes Screening 05/14/2026 05/14/2023, 1 04/13/2022, 06/05/2022, Additional history exists DTaP,Tdap,and Td Vaccines (2 [...] Procedure Name Priority Date/Time Associated Diagnosis Comments RADIOLOGY SCANNED RESULT 05/28/2023 documented in this encounter Results * RADIOLOGY SCANNED RESULT (05/28/2023) 05/28/2023 No Physician Data Unknown DIAGNOSTIC RAD IOLOGY SERVICES documented in this encounter Advance Directives Latest Code Status on File Code Status Date Activated Date Inactivated Comments Full Code 07/11/2019 11:18 PM 07/16/2019 4:51 PM This order reflects the patients wishes and were consensually agreed upon. Question Answer Comments Discussion of Advance Directives occurred with: Patient Does the patient have a Living Will? No Does the patient have Health Care Power of Cinetechnician? No Code Status History Code Status Date [...] the patient have Health Care Power of Cinetechnician? No Full Code 02/10/2016 5:50 PM 02/20/2016 12:09 AM Th is order reflects the patients wishes and were consensually agreed upon. Question Answer Comments Discussion of Advance Directives occurred with: Patient Does the patient have a Living Will? No Does the patient have Health Care Power of Cinetechnician? No Full Code 01/15/2016 3:25 PM 01/18/2016 6:24 PM Thi s order reflects the patients wishes and were consensually agreed upon. Question Answer Comments Discussion of Advance Directives occurred with: Patient Does the patient have a Living Will? No Does the patient have Health Care Power of Cinetechnician? No Care Teams Global Lead Relationship Specialty Start Date End Date Michelle Borrego DO [address] [place] [address] [place] [id number] PCP - General Internal Medicine 06/07/16 documented as of this encounter
[2023-06-01 01:33] LABS: Albumin Level 4.5 gm/dl (3.4-5.0); BUN Creatinine Ratio 6.9 (10-20); Bilirubin,Total 1.6 mg/dl (0.2-1.0); Calcium 8.4 mg/dl (8.6-10.3); Creatinine Clr Calc Pharmacy 120.1 ml/min; Est GFR (Non-African American) 109.5 ml/min; Globulin 4.4 gm/dl (2.5-4.0); Potassium 2.9 mmol/L (3.5-5.1); Total Protein 8.9 gm/dl (6.0-8.3)
[2023-06-01 01:45] LABS: INR 1.1 (0.9-1.1); Partial Thromboplastin Time 29 Seconds (21-31); Prothrombin Time 12.4 Seconds (9.0-12.0)
[2023-06-01] MEDS: POTASSIUM CHLORIDE / WTR 10 MEQ/100 ML PLCT IV ONE (03:56)
[2023-06-01] MEDS: KETOROLAC TROMETHAMINE 15 MG/ML VIAL IV ONE (03:57)
[2023-06-01] MEDS: POTASSIUM CHLORIDE / WTR 10 MEQ/100 ML PLCT IV SCH (04:56)
[2023-06-01] MEDS: POTASSIUM CHLORIDE CRTAB 20 MEQ TABCR PO STA (04:56)
[2023-06-01] MEDS: MULTI-VITAMIN INFUSION 10 ML, THIAMINE HCL 100 MG, FOLIC ACID 1 MG in SODIUM CHLORIDE 0... IV ONE (05:16)
[2023-06-01] MEDS ORDERED: PROMETHAZINE HCL 12.5 MG in SODIUM CHLORIDE 0.9% 50 ML IV STA (05:20)
[2023-06-01] MEDS ORDERED: LORazepam 1 MG in SYRINGE 0.5 ML IV STA (05:20)
--- NOTE | 2023-06-01 05:32 | History & Physical Report ---
Date of Service June 01, 2023 Assessment & Plan (1) Bilateral leg pain: Plan: 47-year-old male with past med history significant for pancreatic cyst, history of secondary esophageal varices without bleeding, alcoholic cirrhosis of liver with ascites, chronic cholecystitis, coagulopathy, macrocytic anemia, ongoing alcoholism comes because of bilateral lower extremity pain and seems to be in alcohol withdrawal. Patient states he is drinking about 6 ounces of vodka daily. His alcohol level was in 300s in the ER. He also complains of bilateral lower extremity pain since last 1 week. This is third visit for lower extremity pain. Recently had bilateral lower EXTR Doppler which was negative for DVTs. He had right lower extremity arterial Doppler which was negative. He has a bruise in his right thigh thought to be from rubbing to the left thigh. Denies any back pain. Denies any fevers. No bowel or bladder incontinence. Denies any abdominal pain. No chest pain or shortness of breath. No headache. No neck pain. No blurred visions. Has some postnasal drip and cough. Somewhat shaky. Hemodynamics okay. Patient was admitted in March for alcohol hepatitis and C. difficile again admitted few days later in March for choledocholithiasis and cholecystitis. S/p ERCP and sphincterectomy and balloon extraction. Surgery saw him and recommended conservative management with antibiotics. Bilateral leg pain States from thigh down No back pain States having ambulatory dysfunction because of pain Going on for last 1 week May 23, 2023 had venous Doppler bilaterally negative for DVT and in same day had right lower extremity arterial Doppler which was negative study Possible neuropathy Getting gabapentin we will monitor If not improving or worsening can do further studies Will monitor Alcoholism Seems to be in withdrawal Gabapentin alcohol withdrawal protocol and IV Ativan as needed Received banana bag in the ER Continue home thiamine and folic acid Close monitor for withdrawal Alcoholic cirrhosis of liver with ascites Esophageal varices Continue home nadolol, Lasix, Protonix, spironolactone Monitor for volume overload Thrombocytopenia Platelets 93 History of liver cirrhosis Gallstones Chronic cholecystitis on ursodiol DVT prophylaxis SCDs as patient has thrombocytopenia Disposition Med/tele Full code History of Present Illness Chief Complaint: Alcoholism and bilateral lower extremity pain Primary Care Provider: Michelle Borrego DO 47-year-old male with past med history significant for pancreatic cyst, history of secondary esophageal varices without bleeding, alcoholic cirrhosis of liver with ascites, chronic cholecystitis, coagulopathy, macrocytic anemia, ongoing alcoholism comes because of bilateral lower extremity pain and also seems to be in alcohol withdrawal. Patient states he is drinking about 6 ounces of vodka daily. His alcohol level was in 300s in the ER. He also complains of bilateral lower extremity pain since last 1 week. This is third visit for lower extremity pain. Recently had bilateral lower EXTR Doppler which was negative for DVTs. He had right lower extremity arterial Doppler which was negative. He has a bruise in his right thigh thought to be from rubbing to the left thigh. Denies any back pain. Denies any fevers. No bowel or bladder incontinence. Denies any abdominal pain. No chest pain or shortness of breath. No headache. No neck pain. No blurred visions. Has some postnasal drip and cough. Somewhat shaky. Hemodynamics okay. Patient was admitted in March for alcohol hepatitis and C. difficile again admitted few days later in March for choledocholithiasis and cholecystitis. S/p ERCP and sphincterectomy and balloon extraction. Surgery saw him and recommended conservative management with antibiotics. Past med history. As mentioned above Past surgical history. EGD. Tonsillectomy. Social history. Denies smoking. Seems chews tobacco. Currently drinking 6 ounces of vodka daily. No drug use. Family history. Mother has asthma, diabetes, stroke. Father had prostate canc er. Stroke Allergies Allergy/AdvReac Type Severity Reaction Status Date / Time aspirin AdvReac Unknown THINS Verified 04/09/23 20:22 BLOOD, NOSE BLEEDS Home Medications Medication Instructions Recorded Confirmed Type buspirone 5 mg tablet 5 mg PO AMHS 06/10/18 06/01/23 History nadolol 20 mg tablet 20 mg PO QPM 06/10/18 06/01/23 History potassium chloride 10 mEq 10 meq PO QAM 06/10/18 06/01/23 History tablet,extended release ursodiol 300 mg capsule 300 mg PO BID 06/10/18 06/01/23 History zolpidem 5 mg tablet (Ambien) 5 mg PO HS PRN Sleep 06/10/18 06/01/23 History furosemide 20 mg tablet 20 mg PO QAM 11/14/22 06/01/23 History spironolactone 25 mg tablet 25 mg PO QAM 11/14/22 06/01/23 History citalopram 10 mg tablet 10 mg PO QAM 04/09/23 06/01/23 History folic acid 1 mg tablet 1 mg PO QAM #30 tabs 04/14/23 06/01/23 Rx thiamine HCl (vitamin B1) 100 mg 100 mg PO QAM #30 tabs 04/14/23 06/01/23 Rx tablet pantoprazole 40 mg tablet,delayed 40 mg PO QAM #30 tabs 04/20/23 06/01/23 Rx release Past Med/Surg History Medical History Encounter for pre-operative examination Depression Anxiety Thrombocytopenia Ascites Portal hypertension Esophageal varices Alcoholic cirrhosis of liver History of macrocytic anemia History of alcohol abuse Surgical History History of esophagogastroduodenoscopy (EGD) Including procedures for esophageal varices banding History of tonsillectomy Family History Mother Diabetes Father Prostate cancer Other No family history of adverse response to anesthesia Social History Smoking Status: Never smoker Tobacco Type: Smokeless Tobacco (Dip or Chew) Second Hand Exposure: No; Do You Dip or Chew Tobacco: Yes; Hx Alcohol Use: No Hx Substance Use: No Preferred Language: Cambodian Communication Ability: Effective Molecular Physicist Required: No Beliefs That Will Affect Care: None Current Living Situation: Alone Current Living Situation Comment: lives with parents Feels Safe at Home: Yes Assistive Devices: None Review of Systems Review of Systems: All systems reviewed & are unremarkable except as noted in HPI & below Physical Exam Physical Exam: General- Not in distress. shaky Head- atraumatic Eyes- PERRL ENT- oropharynx clear Neck- supple, no JVD. Lungs- clear to auscultation no wheezing or crackles Heart- regular rhythm; no murmur, no gallop, Abdomen- normal bowel sounds, soft, nontender, no distension. Extremities- no pretibial edema, no calf tenderness; warm to palpation, no painful movements. healing bruise seen on right thigh region. Neuro- alert, oriented ; PERRL, no facial palsy; no dysarthria; moves extremities. Skin- warm & dry Results & Data Results & Data Vital Signs (Past 12 Hours) Vital Signs Temp Pulse Pulse Resp BP BP Pulse Ox 06/01/23 04:30 57 L 15 96 06/01/23 04:30 139/92 06/01/23 04:00 58 L 13 94 06/01/23 04:00 137/90 06/01/23 03:30 73 12 93 06/01/23 03:00 56 L 15 95 06/01/23 03:00 139/86 06/01/23 02:30 58 L 18 95 06/01/23 02:30 135/85 06/01/23 02:00 60 20 94 06/01/23 02:00 136/89 06/01/23 01:57 75 12 96 06/01/23 01:06 61 16 147/97 H 95 06/01/23 01:00 65 06/01/23 00:42 36.4 C L 81 18 138/92 98 O2 Del Method 06/01/23 04:30 06/01/23 04:30 06/01/23 04:00 06/01/23 04:00 06/01/23 03:30 06/01/23 03:00 06/01/23 03:00 06/01/23 02:30 06/01/23 02:30 06/01/23 02:00 06/01/23 02:00 06/01/23 01:57 06/01/23 01:06 Room Air 06/01/23 01:00 06/01/23 00:42 Room Air Diagnostic Findings Laboratory Results WBC 4.31 K/ul (4.8-10.8) L 06/01/23 00:55 RBC 4.99 M/uL (4.70-6.10) 06/01/23 00:55 Hgb 16.8 g/dl (14.0-18.0) 06/01/23 00:55 Hct 48.4 % (42.0-52.0) 06/01/23 00:55 MCV 97.0 fL (80.0-100.0) 06/01/23 00:55 MCH 33.7 pg (25.0-34.0) 06/01/23 00:55 MCHC 34.7 g/dL (32.0-36.0) 06/01/23 00:55 RDW Std Deviation 51.8 fL (36.4-46.3) H 06/01/23 00:55 RDW Coeff of Hang 14.5 % (11.5-14.5) 06/01/23 00:55 Plt Count 98 K/uL (130-400) L 06/01/23 00:55 MPV 9.7 fL (9.4-12.4) 06/01/23 00:55 Immature Gran % (Auto) 0.2 % 06/01/23 00:55 Neut % (Auto) 52.0 % 06/01/23 00:55 Lymph % (Auto) 32.0 % 06/01/23 00:55 [place] % (Auto) 10.9 % 06/01/23 00:55 Eos % (Auto) 3.7 % 06/01/23 00:55 Baso % (Auto) 1.2 % 06/01/23 00:55 Neut # (Auto) 2.24 K/uL (1.40-6.50) 06/01/23 00:55 Lymph # (Auto) 1.38 K/uL (1.20-3.40) 06/01/23 00:55 [place] # (Auto) 0.47 K/uL (0.11-0.59) 06/01/23 00:55 Eos # (Auto) 0.16 K/uL (0.00-0.50) 06/01/23 00:55 Baso # (Auto) 0.05 K/uL (0.00-0.20) 06/01/23 00:55 Immature Gran # (Auto) 0.01 K/uL (0.01-0.20) 06/01/23 00:55 PT 12.4 Seconds (9.0-12.0) H 06/01/23 00:55 INR 1.1 (0.9-1.1) 06/01/23 00:55 APTT 29 Seconds (21-31) 06/01/23 00:55 PTT Ratio 1.0 06/01/23 00:55 Sodium 137 mmol/L (136-145) 06/01/23 00:55 Potassium 2.9 mmol/L (3.5-5.1) L 03/03/24 00:55 Chloride 100 mmol/L (98-107) 06/01/23 00:55 Carbon Dioxide 23 mmol/L (21-32) 06/01/23 00:55 Anion Gap 14 (3-11) H 06/01/23 00:55 BUN 5 mg/dl (6-23) L 06/01/23 00:55 Creatinine 0.72 mg/dl (0.6-1.4) 06/01/23 00:55 Est Cr Clr Drug Dosing 120.1 ml/min 06/01/23 00:55 Est GFR ( Amer) 127.0 ml/min 06/01/23 00:55 Est GFR (Non-Af Amer) 109.5 ml/min 06/01/23 00:55 BUN/Creatinine Ratio 6.9 (10-20) L 06/01/23 00:55 Glucose 163 mg/dl (70-99(Fasting)) H 06/01/23 00:55 Calcium 8.4 mg/dl (8.6-10.3) L 06/01/23 00:55 Total Bilirubin 1.6 mg/dl (0.2-1.0) H 06/01/23 00:55 AST 121 U/L (13-39) H 06/01/23 00:55 ALT 70 U/L (7-52) H 06/01/23 00:55 Alkaline Phosphatase 63 U/L (34-104) 06/01/23 00:55 Total Protein 8.9 gm/dl (6.0-8.3) H 06/01/23 00:55 Albumin 4.5 gm/dl (3.4-5.0) 06/01/23 00:55 Globulin 4.4 gm/dl (2.5-4.0) H 06/01/23 00:55 Albumin/Globulin Ratio 1.0 (0.9-2) 06/01/23 00:55 Ethyl Alcohol mg/dL 303.9 mg/dl (<10.0) H 06/01/23 00:55 ECG Additional Comments: ECG. Normal sinus rhythm with sinus arrhythmia heart rate of 66. Nonspecific T wave abnormalities.
[2023-06-01] MEDS: PROMETHAZINE 12.5 MG/50.5 ML BAG IV STA (05:43)
[2023-06-01] MEDS: LORazepam 1 MG/1 ML SYR ED Inj Use IV STA (05:44)
[2023-06-01] MEDS ORDERED: NITROGLYCERIN SL 0.4 MG/TAB TAB SL PRN (07:44)
[2023-06-01] MEDS ORDERED: LORazepam 2 MG in SYRINGE 1 ML IV PRN (07:44)
[2023-06-01] MEDS ORDERED: Ativan IV Alcohol Withdrawal--Active Protocol IV PRN (07:44)
[2023-06-01] MEDS ORDERED: GABAPENTIN 1200MG ALCOHOL WITHDRAWAL LOAD PO STA (07:44)
[2023-06-01] MEDS ORDERED: LORazepam 3 MG in SYRINGE 1.5 ML IV PRN (07:44)
[2023-06-01] MEDS: ursodioL 300 MG CAP PO SCH (08:33)
[2023-06-01] MEDS: ONDANSETRON INJ 2 MG/ML 2 ML VIAL IV PRN (08:33)
[2023-06-01] MEDS: SODIUM CHLORIDE 0.9% 1,000 ML IV SCH (08:33)
[2023-06-01] MEDS: busPIRone 5 MG TAB PO SCH (08:34)
[2023-06-01] MEDS: PANTOprazole 40 MG TAB PO SCH (08:34)
[2023-06-01] MEDS: CITALOPRAM 20 MG TAB PO SCH (08:34)
[2023-06-01] MEDS: POTASSIUM CHLORIDE 10 MEQ TABCR PO SCH (08:34)
[2023-06-01] MEDS: FUROSEMIDE 20 MG TAB PO SCH (08:34)
[2023-06-01] MEDS: GABAPENTIN 600 MG TAB PO ONE (08:34)
[2023-06-01] MEDS: SPIRONOLACTONE 25 MG TAB PO SCH (08:35)
--- NOTE | 2023-06-01 08:38 | Electrocardiogram Report ---
Test Reason : Blood Pressure : / mmHG Vent. Rate : 066 BPM Atrial Rate : 066 BPM P-R Int : 144 ms QRS Dur : 100 ms QT Int : 432 ms P-R-T Axes : 038 060 044 degrees QTc Int : 452 ms Poor data quality, interpretation may be adversely affected Normal sinus rhythm with sinus arrhythmia Normal ECG When compared with ECG of 17-APR-2023 11:22, No significant change Confirmed by Guy Dejesus ([id number]) on 06/01/2023 8:38:02 AM Referred By: REFERRED SELF Confirmed By:Guy Dejesus
[2023-06-01 08:54] LABS: Albumin Level 3.5 gm/dl (3.4-5.0); BUN Creatinine Ratio 8.2 (10-20); Bilirubin Direct 0.5 mg/dl (0-0.2); Bilirubin,Total 1.7 mg/dl (0.2-1.0); Calcium 7.1 mg/dl (8.6-10.3); Creatinine Clr Calc Pharmacy 176.4 ml/min; Est GFR (African American) 148.7 ml/min; Est GFR (Non-African American) 128.3 ml/min; Magnesium 1.3 mg/dl (1.7-2.4); Potassium 3.5 mmol/L (3.5-5.1); Total Protein 6.8 gm/dl (6.0-8.3)
--- NOTE | 2023-06-01 09:22 | Emergency Department Note ---
Impression & Plan Bilateral leg pain, Hypokalemia, Alcoholic hepatitis Admit to the [facility] ED Provider Note NAME: ANDREA ADAME AGE: 47 SEX: Male INFORMANT: Patient ED PROVIDER(S): Jaqui Diane DO CHIEF COMPLAINT: Bilateral leg pain and detox request PLAN: Disposition: Admit to the [facility] MEDICAL DECISION MAKING: This is a 47-year-old male patient with a history of alcohol abuse who presents to the emergency department complaining of bilateral lower extremity pain and requesting detox from alcohol. Patient explains that he had detoxed himself from alcohol in 2016 but suffered a seizure. He is trying to decrease his alcohol intake slowly now in the hopes of stopping drinking altogether. He is also complaining of bilateral leg pain. Has had this ongoing now for 7-9 days. He was seen here in the emergency department for previously where he underwent lower extremity venous duplex as well as arterial duplex which were all negative. Patient tells me that he is willing to be admitted to an inpatient rehab facility once he starts detox at this facility. He was treated with IV Toradol for the pain in his legs. Laboratory studies still show that he is significantly intoxicated at this time with a blood alcohol level greater than 300. Glucose was elevated at 163. There is evidence of an alcoholic hepatitis with a total bilirubin of 1.6, AST 121, ALT of 70. The patient is significantly hypokalemic with a potassium of 2.9. Patient began to receive an IV K rider. Along with IV normal saline solution and an IV banana bag. [facility] for [facility] care. Care/management discussed with: daycare manager and [facility] Triage Nursing notes: Reviewed and agree with them. Vital Signs: reviewed and unremarkable Chronic Medical/Social Conditions affecting care: Alcoholism Differential Diagnosis: DVT, arterial insufficiency, lower extremity trauma, alcohol intoxication, alcohol withdrawal Diagnostics, independently interpreted by me: Cardiac Monitoring: Normal sinus rhythm at 72 HPI: 47 year old Male arrives for evaluation of bilateral lower extremity pain. Patient admits to drinking 4 to 5 ounces of alcohol and describing bilateral leg pain. He describes this is a chronic problem for him. He admits that his alcohol intake is less than what it normally is as he is trying to decrease his alcohol use.. PAST MEDICAL HISTORY: See Below, PAST SURGICAL HISTORY: See Below, SOCIAL HISTORY: See Below, HOME MEDICATIONS: See list ALLERGIES: See list VITALS: See Below PHYSICAL EXAMINATION: HEENT: Head - normocephalic and atraumatic Pupils are equal, round, and reactive to light. Extraocular eye muscles are intact, and sclera are anicteric. Nose - moist nasal mucosa without discharge. Mouth - moist buccal mucosa. Oropharynx is nonerythematous and there is no tonsillar exudate or edema noted. Neck: Supple; no JVD, nuchal rigidity, cervical lymphadenopathy, or auscultated bruits. Heart: Regular rate and rhythm. There is a normal S1 and S2 with no murmurs, clicks, or gallops appreciated. Lungs: Clear to auscultation bilaterally with no wheezes, rales, or rhonchi. Abdomen: Soft, completely nontender, nondistended, with good bowel sounds. There are no palpable pulsatile masses or hepatosplenomegaly. There is no guarding, rigidity, or rebound noted. Extremities: There is evidence of contusion over the right medial aspect of the upper thigh and the lateral aspect of the right proximal tib-fib region. Skin: warm and dry with good turgor and no rashes. Emergency department treatment: assisted living manager, IV normal saline bolus, IV K rider, IV banana bag Emergency department course: The patient was evaluated in room B-5. A complete history and physical was performed. An IV lock was initiated and labs were drawn as above. An order was placed for continuous cardiac monitoring. The patient was in a normal sinus rhythm at a rate of 72. The patient was given a dose of IV Toradol for the pain in his legs. Patient was noted to be hypokalemic and was started on IV K rider. The patient is willing to seek alcohol rehab once he detoxes here in the hospital. He was started on IV banana bag. I discussed the case with the [facility] Hospitalist and they will evaluate for further inpatient care. Past Med/Surg History Medical History Encounter for pre-operative examination Depression Anxiety Thrombocytopenia Ascites Portal hypertension Esophageal varices Alcoholic cirrhosis of liver History of macrocytic anemia History of alcohol abuse Surgical History History of esophagogastroduodenoscopy (EGD) Including procedures for esophageal varices banding History of tonsillectomy Family History Mother Diabetes Father Prostate cancer Other No family history of adverse response to anesthesia Social History Smoking Status: Never smoker Tobacco Type: Smokeless Tobacco (Dip or Chew) Second Hand Exposure: No; Do You Dip or Chew Tobacco: Yes; Hx Alcohol Use: No Hx Substance Use: No Preferred Language: Maori Communication Ability: Effective Wafer Cutter Required: No Beliefs That Will Affect Care: None Current Living Situation: Alone Current Living Situation Comment: lives with parents Feels Safe at Home: Yes Assistive Devices: None Allergies Allergies Allergy/AdvReac Type Severity Reaction Status Date / Time aspirin AdvReac Unknown THINS Verified 04/09/23 20:22 BLOOD, NOSE BLEEDS Home Meds Home Medications Medication Instructions Recorded Confirmed buspirone 5 mg tablet 5 mg PO AMHS 06/10/18 06/01/23 nadolol 20 mg tablet 20 mg PO QPM 06/10/18 06/01/23 potassium chloride 10 mEq 10 meq PO QAM 06/10/18 06/01/23 tablet,extended release ursodiol 300 mg capsule 300 mg PO BID 06/10/18 06/01/23 zolpidem 5 mg tablet (Ambien) 5 mg PO HS PRN Sleep 06/10/18 06/01/23 furosemide 20 mg tablet 20 mg PO QAM 11/14/22 06/01/23 spironolactone 25 mg tablet 25 mg PO QAM 11/14/22 06/01/23 citalopram 10 mg tablet 10 mg PO QAM 04/09/23 06/01/23 Previous Rx's Medication Instructions Recorded folic acid 1 mg tablet 1 mg PO QAM #30 tabs 04/14/23 thiamine HCl (vitamin B1) 100 mg 100 mg PO QAM #30 tabs 04/14/23 tablet pantoprazole 40 mg tablet,delayed 40 mg PO QAM #30 tabs 04/20/23 release Results & Data (ED) Vital Signs Vital Signs - 24 hr 06/01/23 00:42 06/01/23 01:00 06/01/23 01:06 Temperature 36.4 C L Temperature Source Temporal Artery Scan Pulse Rate 81 65 Pulse Rate [Apical] 61 Pulse Rate from SpO2 Sensor Pulse Rhythm Regular Pulse Rhythm [Apical] Regular Pulse Strength Normal Pulse Strength [Apical] Normal Respiratory Rate 18 16 Respiratory Effort / Characteristics Non-Labored Spontaneous Non-Labored Respiratory Depth Normal Normal Respiratory Pattern Regular Regular Blood Pressure 138/92 Blood Pressure [Right Arm] 147/97 H Blood Pressure Mean 107 Blood Pressure Mean [Right Arm] 113 Blood Pressure Position Sitting Blood Pressure Position [Right Arm] Sitting Pulse Oximetry 98 95 Oxygen Delivery Method Room Air Room Air Sepsis Recent Fever Within 48 Hours No Sepsis New/Unexplained Change in Mental Status No Sepsis Action Taken by Nursing No Action Required 06/01/23 01:57 06/01/23 02:00 06/01/23 02:00 Temperature Temperature Source Pulse Rate 75 60 Pulse Rate [Apical] Pulse Rate from SpO2 Sensor 74 60 Pulse Rhythm Pulse Rhythm [Apical] Pulse Strength Pulse Strength [Apical] Respiratory Rate 12 20 Respiratory Effort / Characteristics Respiratory Depth Respiratory Pattern Blood Pressure 136/89 Blood Pressure [Right Arm] Blood Pressure Mean 96 Blood Pressure Mean [Right Arm] Blood Pressure Position Blood Pressure Position [Right Arm] Pulse Oximetry 96 94 Oxygen Delivery Method Sepsis Recent Fever Within 48 Hours Sepsis New/Unexplained Change in Mental Status Sepsis Action Taken by Nursing 06/01/23 02:30 06/01/23 02:30 06/01/23 03:00 Temperature Temperature Source Pulse Rate 58 L Pulse Rate [Apical] Pulse Rate from SpO2 Sensor 59 L Pulse Rhythm Pulse Rhythm [Apical] Pulse Strength Pulse Strength [Apical] Respiratory Rate 18 Respiratory Effort / Characteristics Respiratory Depth Respiratory Pattern Blood Pressure 135/85 139/86 Blood Pressure [Right Arm] Blood Pressure Mean 111 106 Blood Pressure Mean [Right Arm] Blood Pressure Position Blood Pressure Position [Right Arm] Pulse Oximetry 95 Oxygen Delivery Method Sepsis Recent Fever Within 48 Hours Sepsis New/Unexplained Change in Mental Status Sepsis Action Taken by Nursing 06/01/23 03:00 06/01/23 03:30 06/01/23 04:00 Temperature Temperature Source Pulse Rate 56 L 73 Pulse Rate [Apical] Pulse Rate from SpO2 Sensor 57 L 79 Pulse Rhythm Pulse Rhythm [Apical] Pulse Strength Pulse Strength [Apical] Respiratory Rate 15 12 Respiratory Effort / Characteristics Respiratory Depth Respiratory Pattern Blood Pressure 137/90 Blood Pressure [Right Arm] Blood Pressure Mean 97 Blood Pressure Mean [Right Arm] Blood Pressure Position Blood Pressure Position [Right Arm] Pulse Oximetry 95 93 Oxygen Delivery Method Sepsis Recent Fever Within 48 Hours Sepsis New/Unexplained Change in Mental Status Sepsis Action Taken by Nursing 06/01/23 04:00 06/01/23 04:30 06/01/23 04:30 Temperature Temperature Source Pulse Rate 58 L 57 L Pulse Rate [Apical] Pulse Rate from SpO2 Sensor 58 L 58 L Pulse Rhythm Pulse Rhythm [Apical] Pulse Strength Pulse Strength [Apical] Respiratory Rate 13 15 Respiratory Effort / Characteristics Respiratory Depth Respiratory Pattern Blood Pressure 139/92 Blood Pressure [Right Arm] Blood Pressure Mean 99 Blood Pressure Mean [Right Arm] Blood Pressure Position Blood Pressure Position [Right Arm] Pulse Oximetry 94 96 Oxygen Delivery Method Sepsis Recent Fever Within 48 Hours Sepsis New/Unexplained Change in Mental Status Sepsis Action Taken by Nursing 06/01/23 05:00 06/01/23 05:00 Temperature Temperature Source Pulse Rate 75 Pulse Rate [Apical] Pulse Rate from SpO2 Sensor 63 Pulse Rhythm Pulse Rhythm [Apical] Pulse Strength Pulse Strength [Apical] Respiratory Rate 15 Respiratory Effort / Characteristics Respiratory Depth Respiratory Pattern Blood Pressure 144/84 H Blood Pressure [Right Arm] Blood Pressure Mean 94 Blood Pressure Mean [Right Arm] Blood Pressure Position Blood Pressure Position [Right Arm] Pulse Oximetry 96 Oxygen Delivery Method Sepsis Recent Fever Within 48 Hours Sepsis New/Unexplained Change in Mental Status Sepsis Action Taken by Nursing Laboratory Data 06/01/23 00:55 06/01/23 08:06 Lab Results 06/01/23 Range/Units 00:55 WBC 4.31 L (4.8-10.8) K/ul RBC 4.99 (4.70-6.10) M/uL Hgb 16.8 (14.0-18.0) g/dl Hct 48.4 (42.0-52.0) % MCV 97.0 (80.0-100.0) fL MCH 33.7 (25.0-34.0) pg MCHC 34.7 (32.0-36.0) g/dL RDW Std Deviation 51.8 H (36.4-46.3) fL RDW Coeff of Hang 14.5 (11.5-14.5) % Plt Count 98 L (130-400) K/uL MPV 9.7 (9.4-12.4) fL Immature Gran % (Auto) 0.2 % Neut % (Auto) 52.0 % Lymph % (Auto) 32.0 % [place] % (Auto) 10.9 % Eos % (Auto) 3.7 % Baso % (Auto) 1.2 % Neut # (Auto) 2.24 (1.40-6.50) K/uL Lymph # (Auto) 1.38 (1.20-3.40) K/uL [place] # (Auto) 0.47 (0.11-0.59) K/uL Eos # (Auto) 0.16 (0.00-0.50) K/uL Baso # (Auto) 0.05 (0.00-0.20) K/uL Immature Gran # (Auto) 0.01 (0.01-0.20) K/uL PT 12.4 H (9.0-12.0) Seconds INR 1.1 (0.9-1.1) APTT 29 (21-31) Seconds PTT Ratio 1.0 Sodium 137 (136-145) mmol/L Potassium 2.9 L (3.5-5.1) mmol/L Chloride 100 (98-107) mmol/L Carbon Dioxide 23 (21-32) mmol/L Anion Gap 14 H (3-11) BUN 5 L (6-23) mg/dl Creatinine 0.72 (0.6-1.4) mg/dl Est Cr Clr Drug Dosing 120.1 ml/min Est GFR ( Amer) 127.0 ml/min Est GFR (Non-Af Amer) 109.5 ml/min BUN/Creatinine Ratio 6.9 L (10-20) Glucose 163 H (70-99(Fasting)) mg/dl Calcium 8.4 L (8.6-10.3) mg/dl Total Bilirubin 1.6 H (0.2-1.0) mg/dl AST 121 H (13-39) U/L ALT 70 H (7-52) U/L Alkaline Phosphatase 63 (34-104) U/L Total Protein 8.9 H (6.0-8.3) gm/dl Albumin 4.5 (3.4-5.0) gm/dl Globulin 4.4 H (2.5-4.0) gm/dl Albumin/Globulin Ratio 1.0 (0.9-2) Ethyl Alcohol mg/dL 303.9 H (<10.0) mg/dl Administered Medications Buspirone HCl (Buspirone 5 Mg Tab) 5 mg PO [facility] Stop: 07/01/23 08:59 Last Admin: 06/01/23 08:34 Dose: 5 mg Documented By: MARVIN Citalopram Hydrobromide (Citalopram 20 Mg Tab) 10 mg PO [facility] Stop: 07/01/23 08:59 Last Admin: 06/01/23 08:34 Dose: 10 mg Documented By: MARVIN Furosemide (Furosemide 20 Mg Tab) [facility] Stop: 07/01/23 08:59 Last Admin: 06/01/23 08:34 Dose: 20 mg Documented By: MARVIN Sodium Chloride (Nss) 1,000 mls @ 80 mls/hr IV .[id number] [facility] Stop: 06/01/23 20:13 Last Admin: 06/01/23 08:33 Dose: 80 mls/hr Documented By: MARVIN Ondansetron HCl (Ondansetron Inj 2 Mg/Ml 2 Ml Vial) 4 mg IV Q6H PRN PRN Reason: Nausea Stop: 06/04/23 05:20 Last Admin: 06/01/23 08:33 Dose: 4 mg Documented By: MARVIN Pantoprazole Sodium (Pantoprazole 40 Mg Tab) 40 mg PO [facility] Stop: 07/01/23 08:59 Last Admin: 06/01/23 08:34 Dose: 40 mg Documented By: MARVIN Potassium Chloride (Potassium Chloride 10 Meq Tabcr) 10 meq PO [facility] Stop: 07/01/23 08:59 Last Admin: 06/01/23 08:34 Dose: 10 meq Documented By: MARVIN Spironolactone (Spironolactone 25 Mg Tab) 25 mg PO [facility] Stop: 07/01/23 08:59 Last Admin: 06/01/23 08:35 Dose: 25 mg Documented By: MARVIN Ursodiol (Ursodiol 300 Mg Cap) 300 mg PO BID [facility] Stop: 07/01/23 08:59 Last Admin: 06/01/23 08:33 Dose: 300 mg Documented By: MARVIN Discontinued Medications Gabapentin (Gabapentin 600 Mg Tab) 1,200 mg PO NOW ONE Stop: 06/01/23 07:45 Last Admin: 06/01/23 08:34 Dose: 1,200 mg Documented By: MARVIN Multivitamins 10 ml/ Thiamine HCl 100 mg/ Folic Acid 1 mg/Sodium Chloride 1,011.2 mls @ 500 mls/hr IV .Q2H2M ONE Stop: 06/01/23 05:44 Last Admin: 06/01/23 05:16 Dose: 500 mls/hr Documented By: ALFREDITO Potassium Chloride (K Nickolas / Wtr) 10 meq in 100 mls @ 100 mls/hr IV ONE ONE Stop: 06/01/23 04:42 Last Infusion: 06/01/23 04:56 Dose: Infused Documented By: Admin: 06/01/23 03:56 Dose: 100 mls/hr Documented By: ALFREDITO Potassium Chloride (K Nickolas / Wtr) 10 meq in 100 mls @ 100 mls/hr IV Q1H [facility] Stop: 06/01/23 06:44 Last Infusion: 06/01/23 06:01 Dose: Infused Documented By: Admin: 06/01/23 05:49 Dose: 100 mls/hr Documented By: Infusion: 06/01/23 05:48 Dose: Infused Documented By: Admin: 06/01/23 04:56 Dose: 100 mls/hr Documented By: ALFREDITO Promethazine HCl (Phenergan) 12.5 mg in 50.5 mls @ 202 mls/hr IV NOW STA Stop: 06/01/23 05:42 Last Infusion: 06/01/23 06:01 Dose: Infused Documented By: Admin: 06/01/23 05:43 Dose: 202 mls/hr Documented By: ALFREDITO Ketorolac Tromethamine (Ketorolac Tromethamine 15 Mg/Ml Vial) 15 mg IV NOW ONE Stop: 06/01/23 03:44 Last Admin: 06/01/23 03:57 Dose: 15 mg Documented By: ALFREDITO Lorazepam (Lorazepam 1 Mg/1 Ml Syr Ed Inj Use) 1 mg IV NOW STA Stop: 06/01/23 05:29 Last Admin: 06/01/23 05:44 Dose: 1 mg Documented By: ALFREDITO Potassium Chloride (Potassium Chloride Crtab 20 Meq Tabcr) 40 meq PO NOW STA Stop: 06/01/23 04:44 Last Admin: 06/01/23 04:56 Dose: 40 meq Documented By: AAW Discharge Plan Visit Data Chief Complaint: Alcohol Withdrawal Stated Complaint: LEG PAIN,ALCOHOL WITHDRAWAL ED Provider: Jaqui Diane Discharge Problem: Bilateral leg pain, Hypokalemia, Alcoholic hepatitis Discharge Instructions Interventions: ED Discharge Assessment Last Done: 06/01/23 07:44 Discharge Problem: Alcoholic hepatitis Qualifiers: Ascites presence: without ascites Qualified Code(s): K70.10 - Alcoholic hepatitis without ascites
[2023-06-01 10:08] LABS: Hematocrit (blood only) 40.4 % (42.0-52.0); Hemoglobin 13.6 g/dl (14.0-18.0); Mean Corpuscular Hemoglobin 33.6 pg (25.0-34.0); Mean Corpuscular Hgb Conc 33.7 g/dL (32.0-36.0); Mean Corpuscular Volume 99.8 fL (80.0-100.0); RDW Coefficient of Variation 14.6 % (11.5-14.5); RDW Standard Deviation 54.3 fL (36.4-46.3); Red Blood Count 4.05 M/uL (4.70-6.10); White Blood Count 2.07 K/ul (4.8-10.8)
[2023-06-01 10:14] LABS: Mean Platelet Volume 11.1 fL (9.4-12.4); Platelet Count 40 K/uL (130-400)
[2023-06-01 10:15] LABS: Basophils # (auto) 0.03 K/uL (0.00-0.20); Basophils % (auto) 1.4 %; Eosinophils # (auto) 0.09 K/uL (0.00-0.50); Eosinophils % (auto) 4.3 %; Immature Granulocytes # (auto) 0.01 K/uL (0.01-0.20); Immature Granulocytes % (auto) 0.5 %; Lymphocytes # (auto) 0.83 K/uL (1.20-3.40); Lymphocytes % (auto) 40.1 %; Monocytes # (auto) 0.29 K/uL (0.11-0.59); Neutrophils # (auto) 0.82 K/uL (1.40-6.50); Neutrophils % (auto) 39.7 %; Platelet Estimate Decreased (Normal)
[2023-06-01] MEDS: GABAPENTIN 600 MG TAB PO SCH ×2 (10:44→10:45)
[2023-06-01] MEDS: diazePAM 5 MG TABLET PO SCH (10:44)
[2023-06-01] MEDS: LORazepam 1 MG/1 ML SYR ED Inj Use ONE ×3 (10:45→17:42)
[2023-06-01] MEDS: FOLIC ACID 1 MG TAB PO SCH (10:45)
[2023-06-01] MEDS: LORazepam 1 MG in SYRINGE 0.5 ML IV PRN (14:06)
--- NOTE | 2023-06-01 14:12 | Communication Note ---
Date of Service: June 01, 2023 Patient is a 47-year-old male with past medical history of alcohol use disorder who presents to the hospital with bilateral lower extremity pain and alcohol intoxication Blood alcohol level of 300s in the ED Reports tremors presently On physical examination Constitutional: Awake alert oriented x 3; has tremors Respiratory: Bilateral vesicular breath sound Cardiovascular: S1, S2 no murmur Chest: normal inspection of chest Abdomen: Soft, nontender Musculoskeletal: no cyanosis or clubbing, extremities motor strength 5/5 Skin: no rashes, warm and dry normal turgor Neurologic: PERRL, EOMI, accommodation nl, no face palsy, no dysarthria CN's II- XI intact bilaterally and moves all extremities Psychiatric: A+Ox3, euthymic affect Assessment/plan Alcohol use disorder Alcohol withdrawal -On gabapentin taper, Ativan, thiamine and [id number] Valium Bilateral leg pain Likely due to neuropathy -Vitamin B12 level of 380 Will likely benefit from gabapentin and vitamin B12 supplement at discharge Pancytopenia Likely due to alcohol use disorder -CBC monitor Please note the above document was generated using voice recognition software. It may contain grammatical, syntax or spelling errors. Any formal questions or concerns about the content, text or information contained within the body of this dictation should be directly addressed to the provider for clarification
[2023-06-01] MEDS: nadoloL 40 MG TAB PO SCH (21:31)
[2023-06-01] MEDS: ZOLPIDEM TARTRATE 5 MG TAB PO PRN (21:39)
[2023-06-01] MEDS: oxyCODONE HCL IR 5 MG TAB (IMMEDIATE RELEASE) PO STA (23:45)
[2023-06-02] MEDS: GABAPENTIN 600 MG TAB PO SCH (01:34)
[2023-06-02 04:01] LABS: Basophils # (auto) 0.03 K/uL (0.00-0.20); Basophils % (auto) 1.2 %; Eosinophils # (auto) 0.13 K/uL (0.00-0.50); Eosinophils % (auto) 5.2 %; Hematocrit (blood only) 37.9 % (42.0-52.0); Hemoglobin 13.1 g/dl (14.0-18.0); Lymphocytes # (auto) 0.69 K/uL (1.20-3.40); Lymphocytes % (auto) 27.7 %; Mean Corpuscular Hemoglobin 33.5 pg (25.0-34.0); Mean Corpuscular Hgb Conc 34.6 g/dL (32.0-36.0); Mean Corpuscular Volume 96.9 fL (80.0-100.0); Mean Platelet Volume 10.3 fL (9.4-12.4); Monocytes # (auto) 0.32 K/uL (0.11-0.59); Monocytes % (auto) 12.9 %; Neutrophils # (auto) 1.32 K/uL (1.40-6.50); Platelet Count 51 K/uL (130-400); RDW Coefficient of Variation 14.5 % (11.5-14.5); RDW Standard Deviation 51.6 fL (36.4-46.3); Red Blood Count 3.91 M/uL (4.70-6.10); White Blood Count 2.49 K/ul (4.8-10.8)
[2023-06-02 04:22] LABS: BUN Creatinine Ratio 11.6 (10-20); Calcium 7.5 mg/dl (8.6-10.3); Creatinine Clr Calc Pharmacy 100.5 ml/min; Est GFR (Non-African American) 101.8 ml/min; Potassium 3.5 mmol/L (3.5-5.1)
[2023-06-02] MEDS: THIAMINE HCL 100 MG TAB PO SCH (08:03)
[2023-06-02] MEDS: LORazepam 1 MG/1 ML SYR ED Inj Use ONE ×2 (08:56→11:55)
[2023-06-02 11:21] LABS: Uric Acid 5.5 mg/dl (2.6-7.2)
--- NOTE | 2023-06-02 11:29 | XRay Report ---
XR knee LT 3V CLINICAL HISTORY: Left knee pain TECHNIQUE: 3 views of the right knee were obtained. Comparison: None available at the time of this dictation. FINDINGS: There is no evidence of an acute fracture. Joint spaces are well-preserved. No joint effusion is seen . No soft tissue abnormality is seen. IMPRESSION: No evidence of acute osseous injury. ACT 112: Negative or not required by law. Electronically signed by: Darrel Haney M.D. 06/02/2023 11:28 AM
[2023-06-02] MEDS: COLCHICINE 0.6 MG TAB PO ONE (11:30)
[2023-06-02] MEDS: diazePAM 5 MG TABLET PO SCH (11:30)
[2023-06-02] MEDS: ACETAMINOPHEN 500 MG TAB PO PRN (14:34)
--- NOTE | 2023-06-02 14:39 | Hospitalist Progress Note ---
Date of Service June 02, 2023 Assessment & Plan (1) Bilateral leg pain: Plan: 47-year-old male with past med history significant for pancreatic cyst, history of secondary esophageal varices without bleeding, alcoholic cirrhosis of liver with ascites, chronic cholecystitis, coagulopathy, macrocytic anemia, ongoing alcoholism comes because of bilateral lower extremity pain and seems to be in alcohol withdrawal. Alcohol use disorder Alcohol withdrawal History of multiple admission with alcohol withdrawal. Reports drinking 6 ounces of vodka every day Blood alcohol level of 300s on admission -On gabapentin taper, -Ativan, thiamine -Increase the Valium to 10 mg every 8 hours; hold if sleeping/lethargic Bilateral leg pain Likely due to neuropathy -Vitamin B12 level of 380 Will likely benefit from gabapentin and vitamin B12 supplement at discharge Left knee pain Reports pain on the left knee Reported history of gout in the past X-ray obtained; no effusion Uric acid within normal limits Started on colchicine for presumed gout/pseudogout Pancytopenia Likely due to alcohol use disorder Monitor CBC daily Alcoholic cirrhosis of liver with ascites Esophageal varices Continue home nadolol, Lasix, Protonix, spironolactone Monitor for volume overload Gallstones Chronic cholecystitis on ursodiol DVT prophylaxis SCDs as patient has thrombocytopenia Disposition Med/tele Full code Time spent evaluating patient, direct bedside care, chart review, placing orders, interpretation of diagnostic studies, discussion with consultants, patient, and family members, as well as other required patient management activities is 50 minutes Please note the above document was generated using voice recognition software. It may contain grammatical, syntax or spelling errors. Any formal questions or concerns about the content, text or information contained within the body of this dictation should be directly addressed to the provider for clarification Admission and Anticipated Discharge Date Admission Date: June 01, 2023 Subjective Patient seen and examined at bedside. He continues to have signs of alcohol withdrawal with tremors. Reports pain in his bilateral legs and knees. Review of Systems Review of Systems: All systems reviewed & are unremarkable except as noted in Subjective Physical Exam Physical Exam: General- Not in distress. shaky Lungs- clear to auscultation no wheezing or crackles Heart- regular rhythm; no murmur, no gallop, Abdomen- normal bowel sounds, soft, nontender, no distension. Extremities-slight redness on left knee. Painful ROM Neuro- alert, oriented ; PERRL, no facial palsy; no dysarthria; moves extremities. Skin- warm & dry Results & Data Results & Data Vital Signs (Past 12 Hours) Vital Signs Temp Pulse Resp BP Pulse Ox O2 Del Method 06/02/23 13:54 37.3 C 74 15 142/94 H 96 Room Air 06/02/23 11:32 36.9 C 71 16 138/84 93 Room Air 06/02/23 07:55 36.7 C 59 L 16 137/91 94 Room Air 06/02/23 06:15 36.8 C 61 17 137/82 93 Room Air 06/02/23 03:40 37.1 C 06/02/23 03:33 62 16 144/88 H 92 Room Air
[2023-06-02] MEDS: MAGNESIUM SULFATE / D5W 1 GM/100 ML BAG IV SCH (15:57)
[2023-06-03] MEDS: GABAPENTIN 600 MG TAB PO SCH (05:24)
[2023-06-03 07:44] LABS: Basophils # (auto) 0.06 K/uL (0.00-0.20); Basophils % (auto) 1.2 %; Hematocrit (blood only) 41.2 % (42.0-52.0); Hemoglobin 14.4 g/dl (14.0-18.0); Immature Granulocytes # (auto) 0.01 K/uL (0.01-0.20); Immature Granulocytes % (auto) 0.2 %; Lymphocytes # (auto) 1.35 K/uL (1.20-3.40); Lymphocytes % (auto) 26.7 %; Mean Corpuscular Volume 97.4 fL (80.0-100.0); Mean Platelet Volume 10.4 fL (9.4-12.4); Monocytes # (auto) 0.74 K/uL (0.11-0.59); Monocytes % (auto) 14.7 %; Neutrophils # (auto) 2.69 K/uL (1.40-6.50); Neutrophils % (auto) 53.2 %; Platelet Count 62 K/uL (130-400); RDW Coefficient of Variation 14.3 % (11.5-14.5); RDW Standard Deviation 51.2 fL (36.4-46.3); Red Blood Count 4.23 M/uL (4.70-6.10); White Blood Count 5.05 K/ul (4.8-10.8)
[2023-06-03 08:05] LABS: BUN Creatinine Ratio 12.2 (10-20); Calcium 8.4 mg/dl (8.6-10.3); Creatinine Clr Calc Pharmacy 126.3 ml/min; Est GFR (African American) 125.5 ml/min; Est GFR (Non-African American) 108.3 ml/min; Magnesium 1.8 mg/dl (1.7-2.4); Potassium 3.6 mmol/L (3.5-5.1)
[2023-06-03] MEDS: COLCHICINE 0.6 MG TAB PO SCH (08:18)
[2023-06-03] MEDS: LIDOCAINE 5% 1 PATCH TD SCH (11:09)
--- NOTE | 2023-06-03 14:13 | CT Scan Report ---
CT SCAN OF THE LEFT KNEE WITHOUT IV CONTRAST CLINICAL HISTORY: Left knee pain. Abnormal radiographs. COMPARISON STUDY: Radiographs of left knee dated 06/02/2023. TECHNIQUE: CT scan of the left knee was performed from the distal femur to the proximal tibia and fib rupali. Images are reviewed in the axial, sagittal, and coronal planes. IV contrast was not administered for this examination. A dose lowering technique was utilized adhering to the principles of ALARA. CT DOSE: 494.63 mGy.cm FINDINGS: The skeletal structures are well-mineralized. No fracture is seen. There is minimal degener ative narrowing in the medial compartment. Patellar enthesophytes are observed. There is a joint effu checo. No lipohemarthrosis is seen. Small calcified joint bodies are noted. The regional musculature i s normal in appearance. Mild prepatellar soft tissue swelling is observed. A popliteal cyst measures up to 4.5 cm. IMPRESSION: 1. No fracture is identified. 2. Joint effusion with calcified joint bodies. 3. Popliteal cyst. ACT 112: Negative or not required by law. Dictated: 06/03/2023 12:31 PM Transcribed: 06/03/2023 12:55 PM Sussy [id number] [email or web address]_Ramos [id number] Electronically signed by: Darrin Tran M.D. 06/03/2023 2:11 PM
--- NOTE | 2023-06-03 16:25 | Hospitalist Progress Note ---
Date of Service June 03, 2023 Assessment & Plan (1) Bilateral leg pain: Plan: 47-year-old male with past med history significant for pancreatic cyst, history of secondary esophageal varices without bleeding, alcoholic cirrhosis of liver with ascites, chronic cholecystitis, coagulopathy, macrocytic anemia, ongoing alcoholism comes because of bilateral lower extremity pain and seems to be in alcohol withdrawal. Alcohol use disorder Alcohol withdrawal History of multiple admission with alcohol withdrawal. Reports drinking 6 ounces of vodka every day Blood alcohol level of 300s on admission -On gabapentin taper, -Ativan, thiamine -Decrease the Valium to5 mg every 8 hours; hold if sleeping/lethargic. Decreased to 5 twice daily tomorrow. -If patient's withdrawal are well-controlled tomorrow; can consider discharge as well. Bilateral leg pain Likely due to neuropathy -Vitamin B12 level of 380 Will likely benefit from gabapentin and vitamin B12 supplement at discharge Left knee pain Reports pain on the left knee Reported history of gout in the past X-ray obtained; no effusion CT of left knee done. Joint effusion with calcified joint bodies. No acute fracture Uric acid within normal limits Started on colchicine for presumed gout/pseudogout. Plan to treat for 5 days Continue monitor; may need evaluation by orthopedic if continues to have pain. Pancytopenia Likely due to alcohol use disorder Monitor CBC daily; overall improved Alcoholic cirrhosis of liver with ascites Esophageal varices Continue home nadolol, Lasix, Protonix, spironolactone Monitor for volume overload Gallstones Chronic cholecystitis on ursodiol DVT prophylaxis SCDs as patient has thrombocytopenia Disposition Med/tele Full code Time spent evaluating patient, direct bedside care, chart review, placing orders, interpretation of diagnostic studies, discussion with consultants, patient, and family members, as well as other required patient management activities is 50 minutes Please note the above document was generated using voice recognition software. It may contain grammatical, syntax or spelling errors. Any formal questions or concerns about the content, text or information contained within the body of this dictation should be directly addressed to the provider for clarification Admission and Anticipated Discharge Date Admission Date: June 01, 2023 Subjective Seen and examined at bedside. Comfortable; not in distress. Denies any pain or discomfort. Have some minor tremors. Review of Systems Review of Systems: All systems reviewed & are unremarkable except as noted in Subjective Physical Exam Physical Exam: General-comfortable;. Lungs- clear to auscultation no wheezing or crackles Heart- regular rhythm; no murmur, no gallop, Abdomen- normal bowel sounds, soft, nontender, no distension. Extremities-left knee improved compared to yesterday. Decreased redness. ROM slightly limited by pain Neuro- alert, oriented ; PERRL, no facial palsy; no dysarthria; moves extremities. Skin- warm & dry Results & Data Results & Data Vital Signs (Past 12 Hours) Vital Signs Temp Pulse Pulse Resp BP Pulse Ox O2 Del Method 06/03/23 14:26 54 L 06/03/23 12:35 36.7 C 52 L 16 121/80 95 Room Air 06/03/23 08:14 36.5 C 55 L 16 155/90 H 94 Room Air 06/03/23 08:00 Room Air 06/03/23 07:00 62
[2023-06-03] MEDS: diazePAM 5 MG TABLET PO SCH (16:39)
[2023-06-04 05:08] LABS: Basophils # (auto) 0.03 K/uL (0.00-0.20); Basophils % (auto) 0.6 %; Hematocrit (blood only) 43.2 % (42.0-52.0); Hemoglobin 14.5 g/dl (14.0-18.0); Immature Granulocytes # (auto) 0.01 K/uL (0.01-0.20); Immature Granulocytes % (auto) 0.2 %; Lymphocytes # (auto) 1.22 K/uL (1.20-3.40); Lymphocytes % (auto) 24.4 %; Mean Corpuscular Hemoglobin 33.9 pg (25.0-34.0); Mean Corpuscular Hgb Conc 33.6 g/dL (32.0-36.0); Mean Corpuscular Volume 100.9 fL (80.0-100.0); Mean Platelet Volume 10.8 fL (9.4-12.4); Neutrophils # (auto) 2.83 K/uL (1.40-6.50); Neutrophils % (auto) 56.8 %; Platelet Count 66 K/uL (130-400); RDW Coefficient of Variation 14.5 % (11.5-14.5); RDW Standard Deviation 53.8 fL (36.4-46.3); Red Blood Count 4.28 M/uL (4.70-6.10); White Blood Count 4.99 K/ul (4.8-10.8)
[2023-06-04 05:15] LABS: BUN Creatinine Ratio 13.9 (10-20); Calcium 8.6 mg/dl (8.6-10.3); Creatinine Clr Calc Pharmacy 118.3 ml/min; Est GFR (African American) 122.2 ml/min; Est GFR (Non-African American) 105.4 ml/min; Potassium 3.8 mmol/L (3.5-5.1)
--- NOTE | 2023-06-04 07:21 | Ultrasound Report ---
US venous doppler LE BI CLINICAL HISTORY: b/l leg pain TECHNIQUE: Bilateral lower extremity real-time compression venous ultrasound with Color Doppler imagi ng. Utilizing real-time ultrasonic imaging multiple real time high-resolution ultrasonic images with compression and noncompression maneuvers of the deep venous system in addition to color doppler imagi ng were performed from the common femoral vein through the proximal calf veins. COMPARISON: Comparison is made to bilateral Doppler ultrasound 05/23/2023 FINDINGS/IMPRESSION: Currently there is normal compressibility of the deep venous system from the common femoral vein thro ugh the proximal calf veins. No superficial venous thrombosis is identified. ACT 112: Negative or not required by law. Electronically signed by: Darrel Haney M.D. 06/04/2023 7:19 AM
[2023-06-04] MEDS: CYANOCOBALAMIN (B-12) 500 MCG TABLET PO SCH (08:49)
--- NOTE | 2023-06-04 16:54 | Hospitalist Progress Note ---
Date of Service June 04, 2023 Assessment & Plan (1) Bilateral leg pain: Plan: 47-year-old male with past med history significant for pancreatic cyst, history of secondary esophageal varices without bleeding, alcoholic cirrhosis of liver with ascites, chronic cholecystitis, coagulopathy, macrocytic anemia, ongoing alcoholism comes because of bilateral lower extremity pain and seems to be in alcohol withdrawal. Alcohol use disorder Alcohol withdrawal History of multiple admission with alcohol withdrawal. Reports drinking 6 ounces of vodka every day Blood alcohol level of 300s on admission -On gabapentin taper, -Ativan, thiamine -Decrease the Valium to5 mg every 12 hours; hold if sleeping/lethargic. Decreased to 5 mg daily tomorrow. -last drink per pt on friday evening, possible dc later in the evening [place]. Bilateral leg pain Likely due to neuropathy -Vitamin B12 level of 380 Will likely benefit from gabapentin and vitamin B12 supplement at discharge Left knee pain Reported pain on the left knee Reported history of gout in the past X-ray obtained; no effusion CT of left knee done. Joint effusion with calcified joint bodies. No acute fracture Uric acid within normal limits Started on colchicine for presumed gout/pseudogout. Plan to treat for 5 days Continue monitor; may need evaluation by orthopedic if continues to have pain. Today w/ improving knee pain. Pancytopenia Likely due to alcohol use disorder Monitor CBC daily; overall improved Alcoholic cirrhosis of liver with ascites Esophageal varices Continue home nadolol, Lasix, Protonix, spironolactone Monitor for volume overload Gallstones Chronic cholecystitis on ursodiol DVT prophylaxis: SCDs as patient has thrombocytopenia Disposition: Med/tele Full code Please note the above document was generated using voice recognition software. It may contain grammatical, syntax or spelling errors. Any formal questions or concerns about the content, text or information contained within the body of this dictation should be directly addressed to the provider for clarification Admission and Anticipated Discharge Date Admission Date: June 01, 2023 Subjective Seen and examined at bedside. Comfortable; not in distress. Denies any pain or discomfort. Have some minor tremors. Complains ble pain, likely neuropathy. DVT for BLE negative, no cellulitis noted. Reports improvement in Lt knee pain. Physical Exam Physical Exam: General-comfortable;. Lungs- clear to auscultation no wheezing or crackles Heart- regular rhythm; no murmur, no gallop, Abdomen- normal bowel sounds, soft, nontender, no distension. Extremities-left knee improved compared to yesterday. Decreased redness. ROM slightly limited by pain Neuro- alert, oriented ; PERRL, no facial palsy; no dysarthria; moves extremities. Skin- warm & dry Results & Data Results & Data Vital Signs (Past 12 Hours) Vital Signs Temp Pulse Pulse Resp BP BP Pulse Ox 06/04/23 15:27 36.6 C 101 H 16 129/78 97 06/04/23 11:18 36.8 C 60 16 115/73 95 06/04/23 07:24 36.7 C 56 L 18 122/79 92 06/04/23 07:00 66 O2 Del Method 06/04/23 15:27 Room Air 06/04/23 11:18 Room Air 06/04/23 07:24 Room Air 06/04/23 07:00
[2023-06-04] MEDS: diazePAM 5 MG TABLET PO SCH (20:22)
[2023-06-05 05:08] LABS: Hematocrit (blood only) 42.4 % (42.0-52.0); Hemoglobin 14.3 g/dl (14.0-18.0); Mean Corpuscular Hemoglobin 34.2 pg (25.0-34.0); Mean Corpuscular Hgb Conc 33.7 g/dL (32.0-36.0); Mean Corpuscular Volume 101.4 fL (80.0-100.0); Mean Platelet Volume 10.7 fL (9.4-12.4); Platelet Count 80 K/uL (130-400); RDW Coefficient of Variation 14.6 % (11.5-14.5); RDW Standard Deviation 54.4 fL (36.4-46.3); Red Blood Count 4.18 M/uL (4.70-6.10); White Blood Count 4.34 K/ul (4.8-10.8)
[2023-06-05 05:16] LABS: BUN Creatinine Ratio 15.7 (10-20); Calcium 8.6 mg/dl (8.6-10.3); Creatinine Clr Calc Pharmacy 104.2 ml/min; Est GFR (African American) 119.7 ml/min; Est GFR (Non-African American) 103.3 ml/min; Magnesium 1.7 mg/dl (1.7-2.4); Phosphorus 4.1 mg/dl (2.5-4.9); Potassium 3.9 mmol/L (3.5-5.1)
[2023-06-05] MEDS: ONDANSETRON INJ 2 MG/ML 2 ML VIAL IV PRN (10:30)
--- NOTE | 2023-06-05 16:01 | Hospitalist Progress Note ---
Date of Service June 05, 2023 Assessment & Plan (1) Bilateral leg pain: Plan: 47-year-old male with past med history significant for pancreatic cyst, history of secondary esophageal varices without bleeding, alcoholic cirrhosis of liver with ascites, chronic cholecystitis, coagulopathy, macrocytic anemia, ongoing alcoholism comes because of bilateral lower extremity pain and seems to be in alcohol withdrawal. Alcohol use disorder Alcohol withdrawal History of multiple admission with alcohol withdrawal. Reports drinking 6 ounces of vodka every day Blood alcohol level of 300s on admission -On gabapentin taper, -Ativan, thiamine -Decrease the Valium to 5 mg hs x 2 days; hold if sleeping/lethargic. Bilateral leg pain Likely due to neuropathy -Vitamin B12 level of 380 Will likely benefit from gabapentin and vitamin B12 supplement at discharge Left knee pain Reported pain on the left knee Reported history of gout in the past X-ray obtained; no effusion CT of left knee done. Joint effusion with calcified joint bodies. No acute fracture Uric acid within normal limits Started on colchicine for presumed gout/pseudogout. Plan to treat for 5 days Continue monitor; may need evaluation by orthopedic if continues to have pain. Today w/ improving knee pain. Pancytopenia Likely due to alcohol use disorder Monitor CBC daily; overall improved Alcoholic cirrhosis of liver with ascites Esophageal varices Continue home nadolol, Lasix, Protonix, spironolactone Monitor for volume overload Gallstones Chronic cholecystitis on ursodiol DVT prophylaxis: SCDs as patient has thrombocytopenia Disposition: Med/tele. in next 1-2 days. Full code Please note the above document was generated using voice recognition software. It may contain grammatical, syntax or spelling errors. Any formal questions or concerns about the content, text or information contained within the body of this dictation should be directly addressed to the provider for clarification Admission and Anticipated Discharge Date Admission Date: June 01, 2023 Subjective Seen and examined at bedside. Comfortable; not in distress. Denies any pain or discomfort. Have some minor tremors at baseline. Complains ble pain, likely neuropathy. DVT for BLE negative, no cellulitis noted. Reports improvement in Lt knee pain. Pt reports feeling anxious today and also noting increased hand tremors. will continue tele monitoring and awss protocol for today. Physical Exam Physical Exam: General-comfortable;. Lungs- clear to auscultation no wheezing or crackles Heart- regular rhythm; no murmur, no gallop, Abdomen- normal bowel sounds, soft, nontender, no distension. Extremities-left knee improved compared to yesterday. Decreased redness. ROM slightly limited by pain Neuro- alert, oriented ; PERRL, no facial palsy; no dysarthria; moves extremities. Skin- warm & dry Results & Data Results & Data Vital Signs (Past 12 Hours) Vital Signs Temp Pulse Pulse Resp BP Pulse Ox O2 Del Method 06/05/23 15:55 36.8 C 98 H 18 101/67 93 Room Air 06/05/23 15:10 58 L 06/05/23 11:28 36.5 C 55 L 18 130/82 97 Room Air 06/05/23 07:57 64 06/05/23 07:56 37.0 C 58 L 18 126/50 L 96 Room Air
[2023-06-05] MEDS: MAGNESIUM SULFATE / D5W 1 GM/100 ML BAG IV SCH (16:14)
[2023-06-05] MEDS: diazePAM 5 MG TABLET PO SCH (20:27)
[2023-06-06 05:06] LABS: Hematocrit (blood only) 42.8 % (42.0-52.0); Hemoglobin 14.2 g/dl (14.0-18.0); Mean Corpuscular Hemoglobin 33.7 pg (25.0-34.0); Mean Corpuscular Hgb Conc 33.2 g/dL (32.0-36.0); Mean Corpuscular Volume 101.7 fL (80.0-100.0); Mean Platelet Volume 9.9 fL (9.4-12.4); Platelet Count 105 K/uL (130-400); RDW Coefficient of Variation 14.3 % (11.5-14.5); RDW Standard Deviation 53.6 fL (36.4-46.3); Red Blood Count 4.21 M/uL (4.70-6.10); White Blood Count 4.34 K/ul (4.8-10.8)
[2023-06-06 05:19] LABS: BUN Creatinine Ratio 15.1 (10-20); Calcium 8.2 mg/dl (8.6-10.3); Creatinine Clr Calc Pharmacy 118.4 ml/min; Est GFR (African American) 126.2 ml/min; Est GFR (Non-African American) 108.9 ml/min; Potassium 3.5 mmol/L (3.5-5.1)
--- NOTE | 2023-06-06 13:14 | Discharge Summary ---
Date of Service June 06, 2023 Admission HPI Per Admitting Provider 47-year-old male with past med history significant for pancreatic cyst, history of secondary esophageal varices without bleeding, alcoholic cirrhosis of liver with ascites, chronic cholecystitis, coagulopathy, macrocytic anemia, ongoing alcoholism comes because of bilateral lower extremity pain and also seems to be in alcohol withdrawal. Patient states he is drinking about 6 ounces of vodka daily. His alcohol level was in 300s in the ER. He also complains of bilateral lower extremity pain since last 1 week. This is third visit for lower extremity pain. Recently had bilateral lower EXTR Doppler which was negative for DVTs. He had right lower extremity arterial Doppler which was negative. He has a bruise in his right thigh thought to be from rubbing to the left thigh. Denies any back pain. Denies any fevers. No bowel or bladder incontinence. Denies any abdominal pain. No chest pain or shortness of breath. No headache. No neck pain. No blurred visions. Has some postnasal drip and cough. Somewhat shaky. Hemodynamics okay. Patient was admitted in March for alcohol hepatitis and C. difficile again admitted few days later in March for choledocholithiasis and cholecystitis. S/p ERCP and sphincterectomy and balloon extraction. Surgery saw him and recommended conservative management with antibiotics. Past med history. As mentioned above Past surgical history. EGD. Tonsillectomy. Social history. Denies smoking. Seems chews tobacco. Currently drinking 6 ounces of vodka daily. No drug use. Family history. Mother has asthma, diabetes, stroke. Father had prostate cancer. Stroke Admission Exam Per Admitting Provider General- Not in distress. shaky Head- atraumatic Eyes- PERRL ENT- oropharynx clear Neck- supple, no JVD. Lungs- clear to auscultation no wheezing or crackles Heart- regular rhythm; no murmur, no gallop, Abdomen- normal bowel sounds, soft, nontender, no distension. Extremities- no pretibial edema, no calf tenderness; warm to palpation, no painful movements. healing bruise seen on right thigh region. Neuro- alert, oriented ; PERRL, no facial palsy; no dysarthria; moves extremities. Skin- warm & dry Principal Diagnosis Alcohol use disorder Alcohol withdrawal Likely neuropathic BLE pain Pancytopenia Alcoholic cirrhosis of liver Discharge Exam General-comfortable;. Lungs- clear to auscultation no wheezing or crackles Heart- regular rhythm; no murmur, no gallop, Abdomen- normal bowel sounds, soft, nontender, no distension. Extremities-left knee improved compared to yesterday. Decreased redness. ROM slightly limited by pain Neuro- alert, oriented ; PERRL, no facial palsy; no dysarthria; moves extremities. Skin- warm & dry Discharge Data Allergies Allergy/AdvReac Type Severity Reaction Status Date / Time aspirin AdvReac Unknown THINS Verified 04/09/23 20:22 BLOOD, NOSE BLEEDS Consultations 06/01/23 04:17 ED Decision to Admit Stat Ordered Studies 06/03/23 10:11 CT knee LT wo con Urgent 06/03/23 18:50 US venous duplex leg [US venous doppler LE ] Routine Hospital Course (1) Bilateral leg pain: 47-year-old male with past med history significant for pancreatic cyst, history of secondary esophageal varices without bleeding, alcoholic cirrhosis of liver with ascites, chronic cholecystitis, coagulopathy, macrocytic anemia, ongoing alcoholism comes because of bilateral lower extremity pain and seems to be in alcohol withdrawal. he was managed for the following: Alcohol use disorder Alcohol withdrawal History of multiple admission with alcohol withdrawal. Reports drinking 6 ounces of vodka every day Blood alcohol level of 300s on admission -s/p gabapentin taper, -Ativan, thiamine -Valium to 5 mg hs x 1 more days; hold if sleeping/lethargic. -Ciwa score better, pt feels better today, no more anxiety and increased tremors today. Bilateral leg pain Likely due to neuropathy -Vitamin B12 level of 380 Will likely benefit from gabapentin and vitamin B12 supplement at discharge - ordered. Left knee pain Reported pain on the left knee Reported history of gout in the past X-ray obtained; no effusion CT of left knee done. Joint effusion with calcified joint bodies. No acute fracture Uric acid within normal limits Started on colchicine for presumed gout/pseudogout. Plan to treat for 5 days Reports improved knee pain. Pancytopenia Likely due to alcohol use disorder Monitor CBC daily; overall improved Alcoholic cirrhosis of liver with ascites Esophageal varices Continue home nadolol, Lasix, Protonix, spironolactone Monitor for volume overload f/u w/ hepatology on dc. Gallstones Chronic cholecystitis on ursodiol DVT prophylaxis: SCDs as patient has thrombocytopenia Disposition: Med/tele. in next 1-2 days. Full code Patient is being discharged home with following instruction at the point of discharge: Follow-up with your primary care physician within a week time and likely you will need labs CBC/CMP/magnesium/phosphorus. As discussed at the bedside, strongly recommend cessation of drinking any amount of alcohol. Also strongly recommend going to rehab. You have been provided with resources for rehab contacts by correctional case manager. For your likely neuropathic pain of lower extremities, you will be discharged on gabapentin. The gabapentin is to be uptitrated, coordinate with your PCP office for long-term management. For your liver cirrhosis, you will benefit by establishing with hepatology upon discharge. Coordinate with your PCP office to set up the referral. Take your medications as prescribed. Please make sure that you are able to get your medications today by calling your pharmacy before you leave the hospital so that your treatment continuity is not broken. Please note the above document was generated using voice recognition software. It may contain grammatical, syntax or spelling errors. Any formal questions or concerns about the content, text or information contained within the body of this dictation should be directly addressed to the provider for clarification Home Health Attestation I certify that this patient is under my care and that I, or a physicians chemist assistant working with me, had a face to-face encounter that meets the home health [id number] encounter requirements with this patient. The encounter with the patient was in whole, or in part, for the following medical condition, which is the primary reason for home health care (list medical condition): I certify that, based on my findings, the following services are medically necessary home health services: My clinical findings support the need for the above services because: Further, I certify that my clinical findings support that this patient is homebound (i.e. absences from home require considerable and taxing effort and are for medical reasons or sabianist services or infrequently or of short duration when for other reasons) because: Certification for Home Health Services: Based on the above findings, I certify that this patient is confined to the home and needs intermittent chcf care, physical therapy and/or speech therapy or continues to need occupational therapy. The patient is under my care, and I have initiated the establishment of the plan of care. This patient will be followed by a physician who will periodically review the plan of care. Total Time Total Time Spent Total Time Spent (In Minutes): 45 Discharge Plan Discharge Items Patient Disposition: Home - Self-Care Reason For Visit: ALCOHOL WITHDRAWAL, B/L LOWER EXTREMITY PAIN Discharge Diagnosis: Alcohol use disorder Alcohol withdrawal Likely neuropathic BLE pain Pancytopenia Alcoholic cirrhosis of liver Activity: Resume your previous activity Non-emergency contact: Primary Care Provider Call non-emergency contact if: you have any medication questions, your symptoms worsen and your temperature is above 101.5 Follow-up/Referrals: Michelle Borrego DO [Primary Care Provider] - (Date & Time 06/16/2023 10:40 AM Provider Cheryl Purvis PA-C Department Family Medicine [facility] ) Diet: Heart Healthy and Low Sodium (2gm) Addtl Attending Provider Instructions: Follow-up with your primary care physician within a week time and likely you will need labs CBC/CMP/magnesium/phosphorus. As discussed at the bedside, strongly recommend cessation of drinking any amount of alcohol. Also strongly recommend going to rehab. You have been provided with resources for rehab contacts by correctional case manager. For your likely neuropathic pain of lower extremities, you will be discharged on gabapentin. The gabapentin is to be uptitrated, coordinate with your PCP office for long-term management. For your liver cirrhosis, you will benefit by establishing with hepatology upon discharge. Coordinate with your PCP office to set up the referral. Take your medications as prescribed. Please make sure that you are able to get your medications today by calling your pharmacy before you leave the hospital so that your treatment continuity is not broken. Pending Studies at Discharge: No Stand-Alone Forms: My [facility], Smoking Cessation Medications and DC Order Prescriptions: New diazepam 5 mg Tablet 5 mg PO HS Qty: 1 0RF colchicine [Colcrys] 0.6 mg Tablet 0.6 mg PO QAM 1 Days Qty: 1 0RF cyanocobalamin (vitamin B-12) 500 mcg Tablet 1,000 mcg PO QAM Qty: 30 0RF gabapentin 100 mg capsule 100 mg PO TID Qty: 90 0RF Continued buspirone 5 mg Tablet 5 mg PO AMHS potassium chloride 10 mEq Tablet Extended Release 10 meq PO QAM nadolol 20 mg Tablet 20 mg PO QPM ursodiol 300 mg Capsule 300 mg PO BID zolpidem [Ambien] 5 mg Tablet 5 mg PO HS PRN (Reason: Sleep) spironolactone 25 mg tablet 25 mg PO QAM furosemide 20 mg tablet 20 mg PO QAM citalopram 10 mg tablet 10 mg PO QAM pantoprazole 40 mg tablet,delayed release (DR/EC) 40 mg PO QAM Qty: 30 0RF thiamine HCl (vitamin B1) 100 mg Tablet 100 mg PO QAM Qty: 30 0RF folic acid 1 mg Tablet 1 mg PO QAM Qty: 30 0RF Discharge Orders: Discharge Order (Routine); Ordered 06/06/23 Ordered By: Randell Davies Admission Data Admit Date/Time: 06/01/23 05:27 Attending Provider: Randell Davies Admit Provider: Josh Sosa Primary Care Provider: Michelle Borrego Other Providers: Josh Sosa
== END 2023-06-06 16:54 | disposition home or self-care (01) | DRG 897 ==
LOC: ED 00:26 → SUATTDRO 05:27 → EDINP 05:27 → 2W 06-02 07:44

== ENCOUNTER 2023-07-03 13:15 | Observation (INO) ==
--- NOTE | 2023-07-03 14:02 | ED Triage Note ---
Date of Service July 03, 2023 Provider in Triage Author: Giovani Blanco History of Present Illness This patient was briefly evaluated while in triage. An abbreviated physical exam was performed. This patient is a 47-year-old Male who presents to the ED for evaluation of facial numbness, nausea, vomiting and fever for the past few days. Patient reports that he also quit drinking a few days ago, and is concerned that he is going through withdrawal. The patient usually drinks a half of 1/5 of vodka nightly for the past year. Patient denies any known sick contacts. Physical Exam CONSTITUTIONAL: Healthy and well nourished. Patient does not appear toxic. HEENT: No scleral icterus or conjunctival injection. RESPIRATORY: Clear to auscultation bilaterally with no wheezing, crackles, rhonchi or stridor. CARDIOVASCULAR: Regular rate and rhythm with no murmurs, rubs or gallops. GASTROINTESTINAL: Bowel sounds present in all quadrants. MUSCULOSKELETAL: Full range of motion of all joints without discomfort. INTEGUMENTARY: No rash or other significant dermatologic conditions noted. HEMATOLOGIC: No ecchymosis or petechiae. PSYCHIATRIC: Positive affect. NEUROLOGIC: No focal neurologic deficits noted. Patient has tremors of both hands. Initial orders for labs and / or imaging were placed and patient was placed in the waiting area until a bed is available. Please see further documentation for the full ED course.
[2023-07-03] MEDS: SODIUM CHLORIDE 0.9% 1,000 ML IV ONE (14:13)
[2023-07-03 14:46] LABS: Basophils # (auto) 0.05 K/uL (0.00-0.20); Eosinophils # (auto) 0.03 K/uL (0.00-0.50); Eosinophils % (auto) 0.6 %; Hematocrit (blood only) 47.9 % (42.0-52.0); Hemoglobin 16.8 g/dl (14.0-18.0); Immature Granulocytes # (auto) 0.01 K/uL (0.01-0.20); Immature Granulocytes % (auto) 0.2 %; Lymphocytes # (auto) 0.97 K/uL (1.20-3.40); Lymphocytes % (auto) 19.1 %; Mean Corpuscular Hemoglobin 33.8 pg (25.0-34.0); Mean Corpuscular Hgb Conc 35.1 g/dL (32.0-36.0); Mean Corpuscular Volume 96.4 fL (80.0-100.0); Mean Platelet Volume 10.6 fL (9.4-12.4); Monocytes # (auto) 0.76 K/uL (0.11-0.59); Monocytes % (auto) 14.9 %; Neutrophils # (auto) 3.27 K/uL (1.40-6.50); Neutrophils % (auto) 64.2 %; Platelet Count 89 K/uL (130-400); RDW Coefficient of Variation 12.7 % (11.5-14.5); RDW Standard Deviation 45.1 fL (36.4-46.3); Red Blood Count 4.97 M/uL (4.70-6.10); White Blood Count 5.09 K/ul (4.8-10.8)
[2023-07-03 14:59] LABS: Influenza A virus by PCR Negative (Neg); Influenza B virus by PCR Negative (Neg); RSV by PCR Negative (Neg); SARS CoV2 RNA(COVID-19) Ceph NEGATIVE (Negative)
[2023-07-03 15:27] LABS: INR 1.2 (0.9-1.1)
[2023-07-03 15:36] LABS: Troponin I High Sensitivity 4.9 pg/ml (0-20)
--- NOTE | 2023-07-03 15:37 | XRay Report ---
SINGLE VIEW CHEST CLINICAL HISTORY: Cough FINDINGS: A PA chest radiograph is compared to study dated 04/09/2023. The cardiomediastinal silhouett e is unremarkable. There is mild elevation of the right hemidiaphragm. The lungs and pleural spaces a re clear. No pneumothorax is seen. The bony thorax is grossly intact. IMPRESSION: No active disease in the chest. ACT 112: Negative or not required by law. Electronically signed by: Darrin Tran M.D. 07/03/2023 3:35 PM
[2023-07-03 15:39] LABS: Albumin Level 4.1 gm/dl (3.4-5.0); Bilirubin,Total 2.7 mg/dl (0.2-1.0); Calcium 8.5 mg/dl (8.6-10.3); Magnesium 1.2 mg/dl (1.7-2.4); Potassium 2.7 mmol/L (3.5-5.1)
[2023-07-03 15:45] LABS: Albumin Globulin Ratio 0.9 (0.9-2); BUN Creatinine Ratio 9.3 (10-20); Creatinine Clr Calc Pharmacy 100.5 ml/min; Est GFR (Non-African American) 101.8 ml/min; Globulin 4.8 gm/dl (2.5-4.0); Total Protein 8.9 gm/dl (6.0-8.3)
[2023-07-03] MEDS: LORazepam 1 MG TAB PO PRN (16:07)
[2023-07-03] MEDS: FOLIC ACID 1 MG TAB PO SCH (16:30)
[2023-07-03] MEDS: THIAMINE HCL 100 MG TAB PO SCH (16:30)
--- NOTE | 2023-07-03 18:03 | Emergency Department Note ---
Impression & Plan Alcohol withdrawal, Hypomagnesemia, Transaminitis, Thrombocytopenia, Nausea & vomiting, Acute hypokalemia ED Provider Note HISTORY OF PRESENT ILLNESS: Patient is a 47-year-old male presenting with nausea and vomiting. Patient reports that for the last 48 hours he has been vomiting profusely. Reports he stopped drinking alcohol 48 hours ago. He has been drinking half of 1/5 of vodka a night for the last 2 weeks. He reports he has been drinking this for a year, but was admitted to the hospital and had been sober for 3 weeks up until 2 weeks ago when he started drinking again. He states that he feels very tremulous. He denies any chest pain or shortness of breath. Denies any abdominal pain. Denies any dysuria or hematuria. No recent fevers. ROS: as above PHYSICAL EXAM: Constitutional: Patient appears in no acute distress. HENT: Head: Normocephalic and atraumatic. Eyes: EOMI, PERRL Mouth/Throat: Mucous membranes moist. Neck: Trachea midline. Neck supple. Cardiovascular: RRR, No murmurs, rubs or gallops. Intact distal pulses. Pulmonary/Chest: No respiratory distress. Breath sounds clear and equal bilaterally. No wheezes or rales. Abdominal: Abdomen soft, no tenderness, rebound or guarding. Musculoskeletal: No edema, tenderness or deformity noted. Skin: Warm and dry. No rash, erythema, pallor or cyanosis Psychiatric: Appropriate mood and affect for situation. Neurological: Alert and keenly responsive. CN II-XII grossly intact, moving all extremities equally and fully. MDM: - Vitals signs showed tachycardia - History obtained via patient. History as above. - Chronic conditions affecting care: alcohol abuse; esophageal varices; thrombocytopenia - Differential diagnoses include, but are not limited to: alcohol withdrawal; drug intoxication; viral syndrome; electrolyte abnormality - Order placed for continuous cardiac monitoring. At this time, monitor showed rate of 75 bpm with normal sinus rhythm, per my interpretation. - External medical records reviewed. Discharge summary dated 06/06/2023 was reviewed. Patient was admitted at that time for alcohol withdrawal. - EKG interpreted by myself showed normal sinus rhythm. Rate 100 bpm. Prolonged QT at 434. No acute ischemic changes. - Laboratory workup interpreted by myself showed normal WBC; hypokalemia (K 2.7); elevated anion gap (18); transaminitis (AST 180; ALT 102); elevated total bilirubin (2.7); hypomagnesemia (Mg 1.2); elevated ethanol (57.1) - COVID/flu/RSV negative - CXR negative for pneumonia, per my interpretation - Patient's withdrawal score was 5. Given 1 mg PO ativan. Given 1L NS, 100 mg PO thiamine, 1 mg PO folic acid and 4 mg IV zofran for symptomatic management. - On reassessment, patient reports he still feels very tremulous and unwell. He was given 20 mill equivalents of oral potassium and a total of 20 mill equivalents of IV potassium for electrolyte replacement. He was also given 1 gram IV magnesium. - Considered CT abdomen/pelvis with IV contrast, given patient's vomiting, but he has no complaints of abdominal pain and no reproducible abdominal pain on examination. - Discussion was had with pillowcase maker about patient's case and need for admission - Hospitalist consulted for admission - [facility] evaluation and management. ASSESSMENT AND PLAN: Diagnosis: alcohol withdrawal; nausea and vomiting; hypomagnesemia; acute hypokalemia; transaminitis Plan: admit Past Med/Surg History Medical History Encounter for pre-operative examination Depression Anxiety Thrombocytopenia Ascites Portal hypertension Esophageal varices Alcoholic cirrhosis of liver History of macrocytic anemia History of alcohol abuse Surgical History History of esophagogastroduodenoscopy (EGD) Including procedures for esophageal varices banding History of tonsillectomy Family History Mother Diabetes Father Prostate cancer Other No family history of adverse response to anesthesia Social History Smoking Status: Never smoker Tobacco Type: Smokeless Tobacco (Dip or Chew) Second Hand Exposure: No; Do You Dip or Chew Tobacco: Yes; Hx Alcohol Use: Yes Alcohol type: hard liquor Hx Substance Use: No Preferred Language: Faroese Communication Ability: Effective Tax Services Manager Required: No Beliefs That Will Affect Care: None Current Living Situation: Alone Current Living Situation Comment: lives with parents Feels Safe at Home: Yes Assistive Devices: None Allergies Allergies Allergy/AdvReac Type Severity Reaction Status Date / Time aspirin AdvReac Unknown THINS Verified 07/03/23 18:38 BLOOD, NOSE BLEEDS Home Meds Home Medications Medication Instructions Recorded Confirmed buspirone 5 mg tablet 5 mg PO AMHS 06/10/18 07/03/23 nadolol 20 mg tablet 20 mg PO QPM 06/10/18 07/03/23 potassium chloride 10 mEq 10 meq PO QAM 06/10/18 07/03/23 tablet,extended release ursodiol 300 mg capsule 300 mg PO BID 06/10/18 07/03/23 zolpidem 5 mg tablet (Ambien) 5 mg PO HS PRN Sleep 06/10/18 07/03/23 furosemide 20 mg tablet 20 mg PO QAM 11/14/22 06/01/23 spironolactone 25 mg tablet 25 mg PO QAM 11/14/22 07/03/23 citalopram 10 mg tablet 10 mg PO QAM 04/09/23 07/03/23 cyanocobalamin (vitamin B-12) 250 250 mcg PO QAM 07/03/23 07/03/23 mcg tablet (Vitamin B-12) gabapentin 300 mg capsule 300 mg PO TID 07/03/23 07/03/23 lidocaine 5 % topical patch 1 patch transdermal UD 07/03/23 07/03/23 pantoprazole 20 mg tablet,delayed 20 mg PO QAM 07/03/23 07/03/23 release Previous Rx's Medication Instructions Recorded folic acid 1 mg tablet 1 mg PO QAM #30 tabs 06/06/23 thiamine HCl (vitamin B1) 100 mg 100 mg PO QAM #30 tabs 06/06/23 tablet Results & Data (ED) Vital Signs Vital Signs - 24 hr 07/03/23 13:58 07/03/23 15:25 07/03/23 17:37 Temperature 36.8 C 36.9 C Temperature Source Oral Oral Pulse Rate 128 H 68 Pulse Rate [Finger] 116 H Respiratory Rate 18 20 Respiratory Effort / Characteristics Non-Labored Spontaneous Non-Labored Spontaneous Respiratory Depth Normal Normal Respiratory Pattern Regular Blood Pressure 132/79 Blood Pressure [Right Arm] 130/80 Blood Pressure Mean 96 Blood Pressure Mean [Right Arm] 96 Pulse Oximetry 93 96 Oxygen Delivery Method Room Air Room Air Sepsis Recent Fever Within 48 Hours No Sepsis New/Unexplained Change in Mental Status No Sepsis Action Taken by Nursing No Action Required 07/03/23 18:00 07/03/23 18:00 Temperature Temperature Source Pulse Rate Pulse Rate [Finger] 75 Respiratory Rate 18 Respiratory Effort / Characteristics Respiratory Depth Respiratory Pattern Blood Pressure Blood Pressure [Right Arm] 157/91 H Blood Pressure Mean Blood Pressure Mean [Right Arm] 113 Pulse Oximetry 96 Oxygen Delivery Method Room Air Room Air Sepsis Recent Fever Within 48 Hours Sepsis New/Unexplained Change in Mental Status Sepsis Action Taken by Nursing Laboratory Data 07/03/23 14:05 07/03/23 14:05 Lab Results 07/03/23 07/03/23 Range/Units 14:05 Unknown WBC 5.09 (4.8-10.8) K/ul RBC 4.97 (4.70-6.10) M/uL Hgb 16.8 (14.0-18.0) g/dl Hct 47.9 (42.0-52.0) % MCV 96.4 (80.0-100.0) fL MCH 33.8 (25.0-34.0) pg MCHC 35.1 (32.0-36.0) g/dL RDW Std Deviation 45.1 (36.4-46.3) fL RDW Coeff of Hang 12.7 (11.5-14.5) % Plt Count 89 L (130-400) K/uL MPV 10.6 (9.4-12.4) fL Immature Gran % (Auto) 0.2 % Neut % (Auto) 64.2 % Lymph % (Auto) 19.1 % [place] % (Auto) 14.9 % Eos % (Auto) 0.6 % Baso % (Auto) 1.0 % Neut # (Auto) 3.27 (1.40-6.50) K/uL Lymph # (Auto) 0.97 L (1.20-3.40) K/uL [place] # (Auto) 0.76 H (0.11-0.59) K/uL Eos # (Auto) 0.03 (0.00-0.50) K/uL Baso # (Auto) 0.05 (0.00-0.20) K/uL Immature Gran # (Auto) 0.01 (0.01-0.20) K/uL PT 13.0 H (9.0-12.0) Seconds INR 1.2 H (0.9-1.1) Sodium 136 (136-145) mmol/L Potassium 2.7 L (3.5-5.1) mmol/L Chloride 95 L (98-107) mmol/L Carbon Dioxide 23 (21-32) mmol/L Anion Gap 18 H (3-11) BUN 8 (6-23) mg/dl Creatinine 0.86 (0.6-1.4) mg/dl Est Cr Clr Drug Dosing 100.5 ml/min Est GFR ( Amer) 118.0 ml/min Est GFR (Non-Af Amer) 101.8 ml/min BUN/Creatinine Ratio 9.3 L (10-20) Glucose 181 H (70-99(Fasting)) mg/dl Calcium 8.5 L (8.6-10.3) mg/dl Magnesium 1.2 L (1.7-2.4) mg/dl Total Bilirubin 2.7 H (0.2-1.0) mg/dl AST 180 H (13-39) U/L ALT 102 H (7-52) U/L Alkaline Phosphatase 72 (34-104) U/L Troponin I High Sens 4.9 (0-20) pg/ml Total Protein 8.9 H (6.0-8.3) gm/dl Albumin 4.1 (3.4-5.0) gm/dl Globulin 4.8 H (2.5-4.0) gm/dl Albumin/Globulin Ratio 0.9 (0.9-2) Lipase 79 (11-82) U/L Acetaminophen < 3 L (10-30) ug/ml Ethyl Alcohol mg/dL 57.1 H (<10.0) mg/dl SARS-CoV-2 (PCR) NEGATIVE (Negative) Influenza Type A (PCR) Negative (Neg) Influenza Type B (PCR) Negative (Neg) RSV (RT-PCR) Negative (Neg) Administered Medications Folic Acid (Folic Acid 1 Mg Tab) 1 mg PO QAM [facility] Stop: 08/02/23 15:29 Last Admin: 07/03/23 16:30 Dose: 1 mg Documented By: LCD Potassium Chloride (K Nickolas / Wtr) 10 meq in 100 mls @ 100 mls/hr IV Q1H LANDRY Stop: 07/03/23 20:29 Last Admin: 07/03/23 18:27 Dose: 100 mls/hr Documented By: DAHIANA Magnesium Sulfate/Dextrose (Magnesium Sulfate / D5w) 1 gm in 100 mls @ 100 mls/hr IV NOW STA Stop: 07/03/23 19:18 Last Admin: 07/03/23 18:27 Dose: 100 mls/hr Documented By: DAHIANA Thiamine HCl (Thiamine Hcl 100 Mg Tab) 100 mg PO QAM LANDRY Stop: 08/02/23 15:29 Last Admin: 07/03/23 16:30 Dose: 100 mg Documented By: ROSA Discontinued Medications Sodium Chloride (Nss) 1,000 mls @ 999 mls/hr IV .Q1H1M ONE Stop: 07/03/23 15:03 Last Infusion: 07/03/23 15:28 Dose: Infused Documented By: Admin: 07/03/23 14:13 Dose: 999 mls/hr Documented By: SHWETHA Lorazepam (Lorazepam 1 Mg Tab) 1 mg PO ONE PRN; Protocol PRN Reason: EtoH Withdrawal AWSS 6,7,8,9,10 Last Admin: 07/03/23 16:07 Dose: 1 mg Documented By: ROSA Ondansetron HCl (Ondansetron Inj 2 Mg/Ml 2 Ml Vial) 4 mg IV NOW STA Stop: 07/03/23 18:19 Last Admin: 07/03/23 18:27 Dose: 4 mg Documented By: DAHIANA Potassium Chloride (Potassium Chloride Crtab 20 Meq Tabcr) 20 meq PO NOW STA Stop: 07/03/23 18:19 Last Admin: 07/03/23 18:27 Dose: 20 meq Documented By: DAHIANA Imaging Data Radiologist's Impression: Chest X-Ray 07/03/23 14:04 SINGLE VIEW CHEST CLINICAL HISTORY: Cough FINDINGS: A PA chest radiograph is compared to study dated 04/09/2023. The cardiomediastinal silhouette is unremarkable. There is mild elevation of the right hemidiaphragm. The lungs and pleural spaces are clear. No pneumothorax is seen. The bony thorax is grossly intact. IMPRESSION: No active disease in the chest. ACT 112: Negative or not required by law. Electronically signed by: Darrin Tran M.D. 07/03/2023 3:35 PM Discharge Plan Visit Data Chief Complaint: Flu Like Symptoms Stated Complaint: NAUSEA, VOMITTING, FEVER ED Provider: Linda Rodriguez Discharge Problem: Alcohol withdrawal, Hypomagnesemia, Transaminitis, Thrombocytopenia, Nausea & vomiting, Acute hypokalemia Forms Stand Alone Forms: My [facility] Prescriptions Prescriptions: No Action buspirone 5 mg Tablet 5 mg PO AMHS potassium chloride 10 mEq Tablet Extended Release 10 meq PO QAM nadolol 20 mg Tablet 20 mg PO QPM ursodiol 300 mg Capsule 300 mg PO BID zolpidem [Ambien] 5 mg Tablet 5 mg PO HS PRN (Reason: Sleep) spironolactone 25 mg tablet 25 mg PO QAM furosemide 20 mg tablet 20 mg PO QAM citalopram 10 mg tablet 10 mg PO QAM thiamine HCl (vitamin B1) 100 mg Tablet 100 mg PO QAM Qty: 30 0RF folic acid 1 mg Tablet 1 mg PO QAM Qty: 30 0RF pantoprazole 20 mg tablet,delayed release (DR/EC) 20 mg PO QAM lidocaine 5 % adhesive patch,medicated 1 patch transdermal UD Rx Instructions: 1 patch for 12 hours daily gabapentin 300 mg capsule 300 mg PO TID cyanocobalamin (vitamin B-12) [Vitamin B-12] 250 mcg tablet 250 mcg PO QAM Referrals Referrals: Michelle Borrego DO [Primary Care Provider] -
[2023-07-03] MEDS: POTASSIUM CHLORIDE / WTR 10 MEQ/100 ML PLCT IV SCH (18:27)
[2023-07-03] MEDS: MAGNESIUM SULFATE / D5W 1 GM/100 ML BAG IV STA (18:27)
[2023-07-03] MEDS: ONDANSETRON INJ 2 MG/ML 2 ML VIAL IV STA (18:27)
[2023-07-03] MEDS: POTASSIUM CHLORIDE CRTAB 20 MEQ TABCR PO STA (18:27)
--- NOTE | 2023-07-03 18:56 | History & Physical Report ---
Date of Service July 03, 2023 Assessment & Plan (1) Alcohol withdrawal: (2) Alcohol abuse: (3) Hypomagnesemia: (4) Transaminitis: (5) Hypokalemia: (6) Alcoholic cirrhosis of liver: Plan 47 year male with h/o alcohol abuse with recent admission for alcohol withdrawal presenting with alcohol withdrawal symptoms Alcohol abuse with alcohol withdrawal- uncomplicated alcohol withdrawal in the past. Reports stopped drinking 2 days back however Alcohol level still elevated. During recent admission, treated with gabapentin taper and round the clock valium. Will start on librium taper, thiamine, folate, MV, ivf. Hypomagnesemia- repleted, recheck in am Hypokalemia- repleted, recheck in am Elevated LFTs- due to alcohol abuse. F/u in am Thrombocytopenia due to alcoholic cirrhosis- Stable, 89. Alcoholic cirrhosis of liver with h/o esophageal varices- looks compensated. Continue lasix, aldactone, nadolol DVT ppx- lovenox sc Dispo- Admit to [facility] on tele Time spent- approx 80 mins History of Present Illness Chief Complaint: Alcohol withdrawal Primary Care Provider: Michelle Borrego, 47 year old male with h/o alcohol abuse, alcoholic cirrhosis of liver, who presented to the ED with alcohol withdrawal symptoms. Recently admitted 05/31-06/05 for alcohol withdrawal symptoms. After discharge, he did not start drinking until about a week ago when he went out with his friends. He has been drinking 1/2-1/5th of vodka nightly since until about Friday night. States they found out at work that he was drinking and gave him the last notice. He stopped drinking after that and was doing fine until yesterday when he started vomiting about every 2 hours or so and he came today for the same thing. States he has not vomited after coming to the ED. He feels somewhat better. He does not smoke or do drugs. Denies any fever, chills, CP, SOB. States he has not been to alcohol rehab before and his insurance would not cover alcohol rehab. Allergies Allergy/AdvReac Type Severity Reaction Status Date / Time aspirin AdvReac Unknown THINS Verified 07/03/23 18:38 BLOOD, NOSE BLEEDS Home Medications Medication Instructions Recorded Confirmed Type buspirone 5 mg tablet 5 mg PO AMHS 06/10/18 07/03/23 History nadolol 20 mg tablet 20 mg PO QPM 06/10/18 07/03/23 History potassium chloride 10 mEq 10 meq PO QAM 06/10/18 07/03/23 History tablet,extended release ursodiol 300 mg capsule 300 mg PO BID 06/10/18 07/03/23 History zolpidem 5 mg tablet (Ambien) 5 mg PO HS PRN Sleep 06/10/18 07/03/23 History furosemide 20 mg tablet 20 mg PO QAM 11/14/22 06/01/23 History spironolactone 25 mg tablet 25 mg PO QAM 11/14/22 07/03/23 History citalopram 10 mg tablet 10 mg PO QAM 04/09/23 07/03/23 History folic acid 1 mg tablet 1 mg PO QAM #30 tabs 06/06/23 Rx thiamine HCl (vitamin B1) 100 mg 100 mg PO QAM #30 tabs 06/06/23 07/03/23 Rx tablet cyanocobalamin (vitamin B-12) 250 250 mcg PO QAM 07/03/23 07/03/23 History mcg tablet (Vitamin B-12) gabapentin 300 mg capsule 300 mg PO TID 07/03/23 07/03/23 History lidocaine 5 % topical patch 1 patch transdermal UD 07/03/23 07/03/23 History pantoprazole 20 mg tablet,delayed 20 mg PO QAM 07/03/23 07/03/23 History release Past Med/Surg History Medical History Encounter for pre-operative examination Depression Anxiety Thrombocytopenia Ascites Portal hypertension Esophageal varices Alcoholic cirrhosis of liver History of macrocytic anemia History of alcohol abuse Surgical History History of esophagogastroduodenoscopy (EGD) Including procedures for esophageal varices banding History of tonsillectomy Family History Mother Diabetes Father Prostate cancer Other No family history of adverse response to anesthesia Social History Smoking Status: Never smoker Tobacco Type: Smokeless Tobacco (Dip or Chew) Second Hand Exposure: No; Do You Dip or Chew Tobacco: Yes; Hx Alcohol Use: Yes Alcohol type: hard liquor Hx Substance Use: No Preferred Language: Wolof Communication Ability: Effective Mercury Purifier Required: No Beliefs That Will Affect Care: None Current Living Situation: Alone Current Living Situation Comment: lives with parents Feels Safe at Home: Yes Assistive Devices: None Review of Systems Review of Systems: All systems reviewed & are unremarkable except as noted in Subjective Physical Exam Physical Exam: General: Lying comfortably in bed, not in acute distress, on room air HEENT: EOMI, HARLEY, MMM Chest: Clear breath sounds bilaterally, no wheezes or crackles CVS: Regular rate and rhythm, normal heart sounds, no murmur Abdomen: Soft, non tender, not distended, normal bowel sounds Neuro: Awake, alert, oriented, conversing well, non focal Extremities: Hand tremors+. no edema Results & Data Results & Data Vital Signs (Past 12 Hours) Vital Signs Temp Pulse Pulse Resp BP BP Pulse Ox 07/03/23 18:00 75 18 157/91 H 96 07/03/23 18:00 07/03/23 17:37 68 07/03/23 15:25 36.9 C 116 H 20 130/80 96 07/03/23 13:58 36.8 C 128 H 18 132/79 93 O2 Del Method 07/03/23 18:00 Room Air 07/03/23 18:00 Room Air 07/03/23 17:37 07/03/23 15:25 Room Air 07/03/23 13:58 Room Air Laboratory Results Short CBC 07/03/23 Range/Units 14:05 WBC 5.09 (4.8-10.8) K/ul Hgb 16.8 (14.0-18.0) g/dl Hct 47.9 (42.0-52.0) % Plt Count 89 L (130-400) K/uL BMP 07/03/23 14:05 Sodium 136 Potassium 2.7 L Chloride 95 L Carbon Dioxide 23 BUN 8 Creatinine 0.86 Glucose 181 H Calcium 8.5 L Liver Function 07/03/23 Range/Units 14:05 Total Bilirubin 2.7 H (0.2-1.0) mg/dl AST 180 H (13-39) U/L ALT 102 H (7-52) U/L Alkaline Phosphatase 72 (34-104) U/L Albumin 4.1 (3.4-5.0) gm/dl Diagnostic Findings Chest X-Ray 07/03/23 14:04 SINGLE VIEW CHEST CLINICAL HISTORY: Cough FINDINGS: A PA chest radiograph is compared to study dated 04/09/2023. The cardiomediastinal silhouette is unremarkable. There is mild elevation of the right hemidiaphragm. The lungs and pleural spaces are clear. No pneumothorax is seen. The bony thorax is grossly intact. IMPRESSION: No active disease in the chest. ACT 112: Negative or not required by law. Electronically signed by: Darrin Tran M.D. 07/03/2023 3:35 PM Code Status & VTE Plan VTE Prophylaxis Plan VTE Prophylaxis will be ordered: Yes (1) Alcohol withdrawal Complication of substance-induced condition: uncomplicated Qualified Code(s): F10.930 - Alcohol use, unspecified with withdrawal, uncomplicated (6) Alcoholic cirrhosis of liver Ascites presence: unspecified Qualified Code(s): K70.30 - Alcoholic cirrhosis of liver without ascites
[2023-07-03] MEDS ORDERED: chlordiazePOXIDE ALCOHOL WITHDRAWL 50MG PO STA (20:53)
[2023-07-03] MEDS: D5W AND 1/2NSS + 20MEQ KCL 20 MEQ/1,000 ML BAG IV SCH (21:17)
[2023-07-03] MEDS: chlordiazePOXIDE HCl 25 MG CAP PO SCH (21:17)
[2023-07-03] MEDS: ONDANSETRON INJ 2 MG/ML 2 ML VIAL IV PRN (21:22)
[2023-07-03] MEDS: MAGNESIUM SULFATE / D5W 1 GM/100 ML BAG IV SCH (22:00)
[2023-07-03] MEDS: ENOXAPARIN INJ 40 MG/0.4 ML SYR SQ SCH (23:09)
[2023-07-03] MEDS: LIDOCAINE 5% 1 PATCH TD SCH (23:10)
[2023-07-03] MEDS: nadoloL 40 MG TAB PO SCH (23:11)
[2023-07-03] MEDS: busPIRone 5 MG TAB PO SCH (23:11)
[2023-07-03] MEDS: ursodioL 300 MG CAP PO SCH (23:13)
[2023-07-03] MEDS: POTASSIUM CHLORIDE 10 MEQ TABCR PO ONE (23:55)
[2023-07-04] MEDS ORDERED: LORazepam 3 MG in SYRINGE 1.5 ML IV PRN (00:51)
[2023-07-04] MEDS ORDERED: Ativan IV Alcohol Withdrawal--Active Protocol IV PRN (00:51)
[2023-07-04] MEDS: LORazepam 1 MG/1 ML SYR ED Inj Use ONE ×2 (01:08→12:05)
[2023-07-04] MEDS: LORazepam 1 MG in SYRINGE 0.5 ML IV PRN (01:09)
[2023-07-04 03:40] LABS: Basophils # (auto) 0.03 K/uL (0.00-0.20); Basophils % (auto) 0.7 %; Eosinophils # (auto) 0.23 K/uL (0.00-0.50); Eosinophils % (auto) 5.4 %; Hematocrit (blood only) 41.8 % (42.0-52.0); Hemoglobin 14.4 g/dl (14.0-18.0); Immature Granulocytes # (auto) 0.01 K/uL (0.01-0.20); Immature Granulocytes % (auto) 0.2 %; Lymphocytes # (auto) 1.32 K/uL (1.20-3.40); Lymphocytes % (auto) 30.8 %; Mean Corpuscular Hemoglobin 33.9 pg (25.0-34.0); Mean Corpuscular Hgb Conc 34.4 g/dL (32.0-36.0); Mean Corpuscular Volume 98.4 fL (80.0-100.0); Mean Platelet Volume 10.4 fL (9.4-12.4); Monocytes # (auto) 0.62 K/uL (0.11-0.59); Monocytes % (auto) 14.5 %; Neutrophils # (auto) 2.07 K/uL (1.40-6.50); Neutrophils % (auto) 48.4 %; Platelet Count 60 K/uL (130-400); RDW Coefficient of Variation 12.5 % (11.5-14.5); RDW Standard Deviation 45.1 fL (36.4-46.3); Red Blood Count 4.25 M/uL (4.70-6.10); White Blood Count 4.28 K/ul (4.8-10.8)
[2023-07-04 03:56] LABS: Albumin Globulin Ratio 0.9 (0.9-2); Albumin Level 3.4 gm/dl (3.4-5.0); BUN Creatinine Ratio 8.4 (10-20); Bilirubin,Total 2.5 mg/dl (0.2-1.0); Calcium 7.6 mg/dl (8.6-10.3); Creatinine Clr Calc Pharmacy 104.2 ml/min; Est GFR (African American) 119.7 ml/min; Est GFR (Non-African American) 103.3 ml/min; Globulin 3.7 gm/dl (2.5-4.0); Phosphorus 2.4 mg/dl (2.5-4.9); Potassium 3.1 mmol/L (3.5-5.1); Total Protein 7.1 gm/dl (6.0-8.3)
--- OUTSIDE RECORDS SUMMARY | 2023-07-04 07:00 | External Medical Summary | Summary of Care ---
Author Name Unknown Organization [facility] Address [address] [facility] [address] Phone [phone] Care Team Providers Care Gas Compressor Operator Name Role Phone Michelle Borrego Primary Care Provider [phone] Reason for Visit * Reason Onset Date Comments Other 06/10/2023 Encounter Details Date Type Department Care Team (Late st Contact Info) Description 06/10/2023 Telephone Gastroenterology, [facility] [address] [place] [address] Anatoliy Meza CRNP [address] [place] [id number] Other Allergies Active Allergy Reactions Criticality Noted Date Comments Aspirin Other (Please comment) 02/12/2016 Reports having a bloody nose. documented as of this encounter (statuses as of 06/18/2023) Medications Medication Sig Dispensed Refills Start Date [...] before bedtime. 180 Tablet 3 04/07/2023 Active Nadolol 20 MG [...] mouth in the morning. 0 04/21/2023 Active Thiamine HCl 100 MG Oral Tablet (vitamin B-1) Take 1 Tablet by mouth in the morning. In the morning.. 0 04/14/2023 Active Vancomycin HCl 125 MG Oral Capsule (Vancocin) 1 Capsule. 0 04/14/2023 Active Zolpidem Tartrate 5 MG Oral Tablet (Ambien)Indicatio ns:History of alcohol abuse,Persistent insomnia Take 1 Tablet by mouth at bedtime as needed for Sleep. 30 Tablet 0 04/21/2023 06/09/2023 Discontinued (Refill) documented as of this encounter (statuses as of 06/18/2023) Active Problems Problem Noted Date Diagnosed Date [...] as of this encounter (statuses as of 06/18/2023) Resolved Problems Problem Noted Date Diagnosed Date Resolved Date Abdominal pain 05/13/2017 06/01/2018 Alcohol withdrawal seizure w ithout complication 06/07/2016 06/01/2018 Hyponatremia 04/16/2016 06/01/2018 Generalized abdominal pain 04/16/2016 0 06/07/2016 Nausea without vomiting 04/16/20160 06/2018 Seizures 01/18/2016 06/07/2016 Delirium tremens 01/18/2016 02/12/2017 Alcohol withdrawal 01/18/2016 7 Tobacco use disorder 01/18/2016 019 Thrombocytopenia 01/18/2016 12/21/2019 Alcohol abuse 01/18/2016 06/01/2018 documented as of this encounter (statuses as of 06/18/2023) Immunizations Name Administration Dates Next Due COVID-19 [...] Telephone Encounter - Rachael Ballard OSA - 06/18/2023 8:09 AM EDT Employee's Own Serious Health Condition * Telephone Encounter - Mara Proctor RN - 06/10/2023 4:48 PM EDT Received fax from [facility] case management. They were requesting care plan information. Faxed last office visit note to the fax number provided, documented in this encounter Plan of Treatment Upcoming Encounters Date Type Department Care Team (Late st Contact Info) Description 06/24/2023 8:30 AM EDT Office Visit Family Medicine [address] [place] [phone] Michelle Borrego [address] [place] [phone] 09/01/2023 8:30 AM EDT Imaging Radiology [address] [place] [phone] 09/08/2023 3:00 PM EDT Office Visit Gastroenterology, [facility] [address] [place] [address] Anatoliy Meza CRNP [address] [place] [address] Scheduled Procedures Name Priority Associated Diagnoses Date/Ti [...] the patient have Health Care Power of Digital Strategy Manager? No Code Status History Code Status [...] the patient have Health Care Power of Digital Strategy Manager? No Full Code 02/10/2016 5:50 PM 02/20/2016 12:09 AM Th is order reflects the patients wishes and were consensually agreed upon. Question Answer Comments Discussion of Advance Directives occurred with: Patient Does the patient have a Living Will? No Does the patient have Health Care Power of Digital Strategy Manager? No Full Code 01/15/2016 3:25 PM 01/18/2016 6:24 PM Thi s order reflects the patients wishes and were consensually agreed upon. Question Answer Comments Discussion of Advance Directives occurred with: Patient Does the patient have a Living Will? No Does the patient have Health Care Power of Digital Strategy Manager? No Care Teams Gas Compressor Operator Relationship Specialty Start Date End Date Michelle Borrego DO [address] [place] [address] [place] [phone] PCP - General Internal Medicine 06/07/16 documented as of this encounter
--- OUTSIDE RECORDS SUMMARY | 2023-07-04 07:00 | External Medical Summary | Summary of Care ---
Author Name Unknown Organization [facility] Address [address] [facility] [place] [address] Phone [phone] Care Team Providers Care Director Of Grants Name Role Phone Michelle Borrego DO Primary Care Provider + [phone] Reason for Visit * Reason Onset Date Comments Med Request 03/18/2023 Encounter Details Date Type Department Care Team (Late st Contact Info) Description 03/18/2023 Telephone Family Medicine [address] [phone] Michelle Borrego DO [address] [place] [address] [place] [id number] Med Request Allergies Active Allergy Reactions Criticality Noted Date Comments Aspirin Other (Please comment) 02/12/2016 Reports having a bloody nose. documented as of this encounter (statuses as of 06/17/2023) Medications Medication Sig Dispensed Refills Start Date End Date Status Ursodiol 300 MG Oral Capsule (Actigall) TAKE ONE CAPSULE BY MOUTH TWICE DAILY 180 Capsule 12 12/18/2022 Active Spironolactone 25 MG Oral Tablet (Aldactone) Take 1 Tablet by mouth in the morning. 90 Tablet 3 01/14/2023 Active Pantoprazole Sodium 20 MG Oral Tablet Delayed Release (Protonix) TAKE ONE TABLET BY MOUTH EVERY DAY 90 Tablet 3 06/24/2022 04/21/2023 Discontinue d(Refill) Nadolol 20 MG Oral Tablet (Corgard) Take 1 Tablet by mouth in the morning. 90 Tablet 3 12/18/2022 04/04/2023 Discontinue d(Refill) Citalopram Hydrobromide 10 MG Oral Tablet (CeleXA) Take 1 Tablet by mouth in the morning. 90 Tablet 3 12/24/2022 05/14/2023 Discontinue d(Medicatio n List Clean Up) busPIRone HCl 5 MG Oral Tablet (Buspar) Take 1 Tablet by mouth in the morning and 1 Tablet before bedtime. 180 Tablet 3 01/14/2023 04/04/2023 Discontinue d(Refill) Folic Acid 1 MG Oral Tablet Take 1 Tablet by mouth in the morning. 90 Tablet 3 01/14/2023 04/04/2023 Discontinue d(Refill) chlordiazePOXIDE HCl 25 MG Oral Capsule (Librium) Take 1 Capsule by mouth every 6 hours as needed (alcohol withdrawal). 15 Capsule 0 02/11/2023 03/25/2023 Discontinue d(Patient preference/ discontinua tion) Potassium Chloride ER 10 MEQ Oral Tablet Extended Release TAKE ONE TABLET BY MOUTH EVERY MORNING 90 Tablet 3 03/04/2023 04/04/2023 Discontinue d(Refill) Furosemide 20 MG Oral Tablet (Lasix)Indications :Alcoholic cirrhosis of liver with ascites (HCC) Take 1 Tablet by mouth in the morning. 90 Tablet 3 03/05/2023 04/04/2023 Discontinue d(Refill) documented as of this encounter (statuses as of 06/17/2023) Active Problems Problem Noted Date Diagnosed Date [...] as of this encounter (statuses as of 06/17/2023) Resolved Problems Problem Noted Date Diagnosed Date [...] as of this encounter (statuses as of 06/17/2023) Immunizations Name Administration Dates Next Due COVID-19 [...] encounter Miscellaneous Notes * Telephone Encounter - Shayna Talley RN - 03/20/2023 11:53 AM EST RADAMES Luna * Telephone Encounter - Michelle Borrego DO - 03/19/2023 4:01 PM EST He can discuss this with Cheryl at his appointment next week. This may not be the best option for him, but he can discuss options for sleep when he sees her. * Telephone Encounter - Nicolette Lamar RN - 03/19/2023 2:08 PM EST Called pt for ARMAND and we discussed what to take for pain Dr Borrego, he is asking for a refill of Ambien. This was dc'd in Jan when you gave him a script for Librium. He is no longer taking the Librium and would like to have the Ambien again. * Telephone Encounter - Michelle Borrego DO - 03/18/2023 1:03 PM EST He can take Ibuprofen 600 mg (3 over the counter pills) every 8 hours as needed for pain. Notify pt. * Telephone Encounter - Kristin Harrell LPN - 03/18/2023 9:38 AM EST Pt calling due being discharge from [facility] today around 1 pm. He was admitted 03/13 for alcohol withdrawal and for a fractured rib. The hospitalist will not prescribe pain med advising he will need to ask PCP for pain medication. [facility] advised him to take OTC pain reliever, pt states this doesn't control his rib pain. Rib pain at worse is 8/. Pt inquiring if Dr Borrego would prescribe pain medication? I offered to scheduled him an H/D appt, he already has appt schedule with Cheryl on 03/25. Thre is nothing sooner with other provider. Please advise. Contact pt at mobile number [phone] documented in this encounter Plan of Treatment Upcoming Encounters Date Type Department Care Team (Late st Contact Info) Description 06/24/2023 8:30 AM EDT Office Visit Family Medicine [address] [place] [phone] Michelle Borrego DO [address] [place] [address] [place] [id number] 09/01/2023 8:30 AM EDT Imaging Radiology [address] [place] [address] 09/08/2023 3:00 PM EDT Office Visit Gastroenterology, [address] [place] [address] Anatoliy Meza CRNP [address] [place] [address] Scheduled Procedures Name Priority Associated Diagnoses Date/Ti [...] Tdap) 11/12/2026 11/12/2016 Lipid Panel 02/12/2028 02/11/2023, 11/2021, 12/02/2018, Additional history exists Hepatitis B [...] the patient have Health Care Power of Online Content Developer? No Code Status History Code Status Date [...] the patient have Health Care Power of Online Content Developer? No Full Code 02/10/2016 5:50 PM 02/20/2016 12:09 AM Th is order reflects the patients wishes and were consensually agreed upon. Question Answer Comments Discussion of Advance Directives occurred with: Patient Does the patient have a Living Will? No Does the patient have Health Care Power of Online Content Developer? No Full Code 01/15/2016 3:25 PM 01/18/2016 6:24 PM Thi s order reflects the patients wishes and were consensually agreed upon. Question Answer Comments Discussion of Advance Directives occurred with: Patient Does the patient have a Living Will? No Does the patient have Health Care Power of Online Content Developer? No Care Teams Director Of Grants Relationship Specialty Start Date End Date Michelle Borrego DO [address] [place] [address] [place] [address] PCP - General Internal Medicine 06/07/16 documented as of this encounter
--- OUTSIDE RECORDS SUMMARY | 2023-07-04 07:00 | External Medical Summary | Summary of Care ---
Author Name Unknown Organization [facility] Address [address] [place] [address] Phone [phone] Care Team Providers Care Feed Grinder Name Role Phone Michelle Borrego DO Primary Care Provider [phone] Reason for Visit * Reason Comments Hospital Follow-Up Pt states legs are s till painful, especially right thigh, requesting Rx for lidocaine patches; pt denies any other concerns. Encounter Details Date Type Department Care Team (Late st Contact Info) Description 06/24/2023 8:30 AM EDT Office Visit Family Medicine [address] [phone] Michelle Borrego [address] [place] [phone] Bilateral leg pain*; Alcohol use disorder; Secondary esophageal varices without bleeding (HCC); Alcohol withdrawal syndrome with complication (HCC); Alcoholic cirrhosis of liver with ascites (HCC); Chronic cough Allergies Active Allergy Reactions Criticality Noted Date Comments Aspirin Other (Please comment) 02/12/2016 Reports having a bloody nose. documented as of this encounter (statuses as of 06/24/2023) Medications Medication Sig Dispensed Refills Start Date [...] Active Zolpidem Tartrate 5 MG Oral Tablet (Ambien)Indications :History of alcohol abuse,Persistent insomnia Take 1 Tablet by mouth at bedtime as needed for Sleep. 30 Tablet 0 06/12/2023 Active Lidocaine 5 % External Patch (Lidoderm) Place 1 Patch over 12 hours topically on the skin daily. 30 Patch 0 06/24/2023 Active Gabapentin 300 MG Oral Capsule (Neurontin) Take 1 Capsule by mouth in the morning and 1 Capsule at noon and 1 Capsule before bedtime. 90 Capsule 5 06/24/2023 Active Vitamin B-12 250 MCG Oral Tablet (Cyanocobalamin) Take 1 Tablet by mouth in the morning. 30 Tablet 5 06/24/2023 Active documented as of this encounter (statuses as of 06/24/2023) Active Problems Problem Noted Date Diagnosed Date Alcohol withdrawal syndrome with complication Alcohol use disorder 06/24/2023 Biliary colic 07/11/2019 Persistent insomnia 02/12/2017 Chronic cholecystitis 11/10/2016 Pre-transplant evaluation for chronic liver dise ase 09/30/2016 Controlled substance agreement signed 08/22/2016 Pancreatic cyst 08/18/2016 Overview: 5mm, Needs repeat MRCP in 07/2017 Secondary esophageal varices without bleeding Alcoholic cirrhosis of liver with ascites 2015 Macrocytic anemia 01/18/2016 Coagulopathy 01/18/2016 documented as of this encounter (statuses as of 06/24/2023) Resolved Problems Problem Noted Date Diagnosed Date Resolved Date History of alcohol abuse 06/01/2018 Abdominal pain 05/13/2017 06/01/2018 Alcohol withdrawal seizure w ithout complication 06/07/2016 06/01/2018 Hyponatremia 04/16/2016 06/01/2018 Generalized abdominal pain 04/16/2016 0 06/07/2016 Nausea without vomiting 04/16/2016 03/0 06/2018 Seizures 01/18/2016 06/07/2016 Delirium tremens 01/18/2016 02/12/2017 Alcohol withdrawal 01/18/2016 7 Tobacco use disorder 01/18/2016 019 Thrombocytopenia 01/18/2016 12/21/2019 Alcohol abuse 01/18/2016 06/01/2018 documented as of this encounter (statuses as of 06/24/2023) Immunizations Name Administration Dates Next Due COVID-19 [...] Sign Reading Time Taken Comments Blood Pressure 146/80 06/24/2023 8:31 AM EDT Pulse 126 06/24/2023 8:31 AM EDT Temperature 37.4 C (99.3 F) 06/24/2023 8:31 AM ED T Respiratory Rate - - Oxygen Saturation 93% 06/24/2023 8:31 AM EDT Inhaled Oxygen Concentration - - Weight 84.9 kg (187 lb 3.2 oz) 06/24/2023 8:31 A M EDT Height - - Body Mass Index 29.32 06/05/2022 2:17 PM EST documented in this [...] as of this encounter Progress Notes * Elmo Michelle Guerra, - 06/24/2023 8:37 AM EDT Subjective: Darrel Guillory is a 47 year old male. Chief Complaint Patient presents with Hospital Follow-Up Pt states legs are still painful, especially right thigh, requesting Rx for lidocaine patches; pt denies any other concerns. HPI: Darrel Guillory presents today for HD follow up. He was admitted with bilateral leg pain and alcohol withdrawal. He was started on gabapentin 100 mg TID as well as daily vitamin B12. Today he reports that his leg pain is improved, except over the right thigh. He has been using OTC lidocaine patches but they are expensive. He would like to see the 5% is covered by his insurance. No hip or groin pain - feels muscular in nature. He states he is no longer drinking alcohol. He has not had anything to drink since getting out of the hospital. Denies withdrawal symptoms. Discussed support groups or rehab - he declines at this time. He has had a nagging dry cough for about 3 months. Had a ?posterior opacity on CXR last year. He feels that he had updated imaging during his hospitalizations at [facility] earlier this year. PMH: Patient Active Problem List Diagnosis Code Macrocytic [...] BY MOUTH TWICE DAILY 180 Capsule 12 Spironolactone 25 MG Oral Tablet (Aldactone) Take 1 Tablet by mouth in the morning. 90 Tablet 3 Folic Acid 1 MG Oral Tablet Take 1 Tablet by mouth in the morning. 90 Tablet 3 Potassium Chloride ER 10 MEQ Oral Tablet Extended Release Take 1 Tablet by mouth in the morning. Inthe morning.. 90 Tablet 3 busPIRone HCl 5 MG Oral Tablet (Buspar) Take 1 Tablet by mouth in the morning and 1 Tablet before bedtime. 180 Tablet 3 Nadolol 20 MG Oral Tablet (Corgard) Take 1 Tablet by mouth in the morning. 90 Tablet 3 Pantoprazole Sodium 20 MG Oral Tablet Delayed Release (Protonix) Take 2 Tablets by mouth in the morning. Zolpidem Tartrate 5 MG Oral Tablet (Ambien) Take 1 Tablet by mouth at bedtime as needed for Sleep. 30 Tablet 0 Ciprofloxacin HCl 500 MG Oral Tablet (Cipro) Take 1 Tablet by mouth in the morning and 1 Tablet before bedtime. metroNIDAZOLE 500 MG Oral Tablet (Flagyl) Take 1 Tablet by mouth in the morning and 1 Tablet at noon and 1 Tablet before bedtime. Thiamine HCl 100 MG Oral Tablet (vitamin B-1) Take 1 Tablet by mouth in the morning. In the morning.. Vancomycin HCl 125 MG Oral Capsule (Vancocin) 1 Capsule. No current facility-administered medications for this visit. Review of patient's allergies indicates: Allergen Reactions Aspirin Other (Please comment) Reports having a bloody nose. Objective: BP 146/80 | Pulse 126 | Temp 37.4 C (99.3 F) | Wt 84.9 kg (187 lb 3.2 oz) | SpO2 93% | BMI 29.32 kg/m | BSA 2 m General: alert, healthy, no distress, well nourished, and well developed Neck: supple, no adenopathy, thyroid normal size, non-tender, without nodularity Heart: regular rate & rhythm and no murmur, HR near 100, but improved from when roomed Lungs: chest symmetric with normal AP diameter, no chest deformities noted, normal respiratory rateand rhythm, lungs clear to auscultation, frequent dry cough is noted Abdomen: abdomen soft and non-tender Extremities: no joint deformities, effusion, or inflammation, no edema Neuro Exam: alert & oriented x 3 with fluent speech, no focal motor/sensory deficits, gait normal, upper extremity tremor is noted Skin: skin color, texture, turgor are normal, no rashes or significant lesions ASSESSMENT/PLAN: Bilateral leg pain (Primary) - improved except for over his right thigh. Increase gabapentin to 300mg TID, continue vitamin B12. Had imaging while in [facility] but if pain persists will have him see orthopedics. Will send script for lidocaine patches but discussed that they may not be covered. Alcohol use disorder - he denies drinking since hospital discharge Secondary esophageal varices without bleeding (HCC) Alcohol withdrawal syndrome with complication (HCC) - HR elevated and he has a resting tremor here today. No confusion noted to suspect encephalopathy but will need to watch for this given his history of cirrhosis. Alcoholic cirrhosis of liver with ascites (HCC) Chronic cough - will check [facility] to see if he had recent imaging. ?posterior abnormality on imaging from last year. ?upper airway cough syndrome. He did not notice a response to antihistamines. Other orders - Lidocaine 5 % External Patch (Lidoderm); Place 1 Patch over 12 hours topically on the skin daily. - Gabapentin 300 MG Oral Capsule (Neurontin); Take 1 Capsule by mouth in the morning and 1 Capsule at noon and 1 Capsule before bedtime. - Vitamin B-12 250 MCG Oral Tablet (Cyanocobalamin); Take 1 Tablet by mouth in the morning. Follow Up: Return in about 6 months (around 12/25/2023). Michelle Borrego DO documented in this encounter Plan of Treatment Upcoming Encounters Date Type Department Care Team (Late st Contact Info) Description 09/01/2023 8:30 AM EDT Imaging Radiology [address] [place] [address] 09/08/2023 3:00 PM EDT Office Visit Gastroenterology, [facility] [address] [place] [address] Anatoliy Meza CRNP [address] [place] [address] Scheduled Procedures Name Priority Associated Diagnoses Date/Ti [...] as of this encounter Visit Diagnoses Diagnosis Bilateral leg pain- Primary Pain in limb Alcohol use disorder Secondary esophageal varices without bleeding (HCC) Esophageal varices without mention of bleeding in diseases classified elsewhere Alcohol withdrawal syndrome with complication (HCC) Alcoholic cirrhosis of liver with ascites (HCC) Alcoholic cirrhosis of liver Chronic cough Cough documented in this encounter Advance Directives Latest Code Status on File Code Status Date Activated Date Inactivated Comments Full Code 07/11/2019 11:18 PM 07/16/2019 4:51 PM This order reflects the patients wishes and were consensually agreed upon. Question Answer Comments Discussion of Advance Directives occurred with: Patient Does the patient have a Living Will? No Does the patient have Health Care Power of Template Layout Worker? No Code Status History Code Status [...] the patient have Health Care Power of Template Layout Worker? No Full Code 02/10/2016 5:50 PM 02/20/2016 12:09 AM Th is order reflects the patients wishes and were consensually agreed upon. Question Answer Comments Discussion of Advance Directives occurred with: Patient Does the patient have a Living Will? No Does the patient have Health Care Power of Template Layout Worker? No Full Code 01/15/2016 3:25 PM 01/18/2016 6:24 PM Thi s order reflects the patients wishes and were consensually agreed upon. Question Answer Comments Discussion of Advance Directives occurred with: Patient Does the patient have a Living Will? No Does the patient have Health Care Power of Template Layout Worker? No Care Teams Feed Grinder Relationship Specialty Start Date End Date Michelle Borrego DO [address] [place] [address] [place] [address] PCP - General Internal Medicine 06/07/16 documented as of this encounter"
--- OUTSIDE RECORDS SUMMARY | 2023-07-04 07:00 | External Medical Summary | Summary of Care ---
Author Name Unknown Organization [facility] Address [address] [facility] [address] Phone [phone] Care Team Providers Care Career Representative Name Role Phone Michelle Borrego Primary Care Provider [phone] Reason for Visit * Reason Onset Date Comments Forms Request 06/02/2023 [facility] paperwork Encounter Details Date Type Department Care Team (Late st Contact Info) Description 06/02/2023 Telephone [facility]enterology, [facility] [address] [facility] [place] [address] Anatoliy Meza CRNP [address] [place] [address] Forms Request ([facility] paperwork ) Allergies Active Allergy Reactions Criticality Noted Date [...] Capsule (Vancocin) 1 Capsule. 0 04/14/2023 Active Furosemide 20 MG Oral Tablet (Lasix)Indication s:Alcoholic cirrhosis of liver with ascites (HCC) Take 1 Tablet by mouth in the morning. 90 Tablet 3 04/07/2023 06/09/2023 Discontinued (Medication List Clean Up) Zolpidem Tartrate 5 MG Oral Tablet (Ambien)Indicatio [...] encounter Miscellaneous Notes * Telephone Encounter - Pao Aguilar RN - 06/12/2023 12:10 PM EDT [facility] papers faxed to [facility] * Telephone Encounter - Anatoliy Meza CRNP - 06/12/2023 10:59 AM EDT Completed, please fax. Given to nursing. RUPERT Comer * Telephone Encounter - Linnette Gama LPN - 06/02/2023 12:34 PM EST Anatoliy we received [facility] paperwork for this pt today, left in the nursing basket to complete next time you are in clinic documented in this encounter Plan of Treatment Upcoming Encounters Date Type Department Care Team (Late st Contact Info) Description 06/24/2023 8:30 AM EDT Office Visit Family Medicine [address] [place] [phone] Michelle [address] [place] [address] 09/01/2023 8:30 AM EDT Imaging Radiology [address] [place] [address] 09/08/2023 3:00 PM EDT Office Visit Gastroenterology, [facility] [address] [facility] [place] [address] Anatoliy Meza CRNP [address] [place] [address] Scheduled Procedures Name Priority Associated Diagnoses Date/Ti [...] the patient have Health Care Power of Artist And Repertoire Manager? No Code Status History Code Status [...] the patient have Health Care Power of Artist And Repertoire Manager? No Full Code 02/10/2016 5:50 PM 02/20/2016 12:09 AM Th is order reflects the patients wishes and were consensually agreed upon. Question Answer Comments Discussion of Advance Directives occurred with: Patient Does the patient have a Living Will? No Does the patient have Health Care Power of Artist And Repertoire Manager? No Full Code 01/15/2016 3:25 PM 01/18/2016 6:24 PM Thi s order reflects the patients wishes and were consensually agreed upon. Question Answer Comments Discussion of Advance Directives occurred with: Patient Does the patient have a Living Will? No Does the patient have Health Care Power of Artist And Repertoire Manager? No Care Teams Career Representative Relationship Specialty Start Date End Date Michelle Borrego DO [address] [place] [address] [place] [phone] PCP - General Internal Medicine 06/07/16 documented as of this encounter
--- OUTSIDE RECORDS SUMMARY | 2023-07-04 07:00 | External Medical Summary | Summary of Care ---
Author Name Unknown Organization [facility] Address [address] [facility] [address] Phone [phone] Care Team Providers Care Senior Systems Engineer Name Role Phone Ollie Stein DO Primary Care Provider + [phone] Reason for Visit * Reason Onset Date Comments Medication Refill 06/11/2023 Encounter Details Date Type Department Care Team (Late st Contact Info) Description 06/11/2023 Refill Family Medicine [address] [phone] Ollie Stein DO [address] [place] [address] [place] [address] History of alcohol abuse; Persistent insomnia Allergies Active Allergy Reactions Criticality Noted Date Comments Aspirin Other (Please comment) 02/12/2016 Reports having a bloody nose. documented as of this encounter (statuses as of 06/12/2023) Medications Medication Sig Dispensed Refills Start Date [...] as of this encounter (statuses as of 06/12/2023) Active Problems Problem Noted Date Diagnosed Date [...] as of this encounter (statuses as of 06/12/2023) Resolved Problems Problem Noted Date Diagnosed Date [...] as of this encounter (statuses as of 06/12/2023) Immunizations Name Administration Dates Next Due COVID-19 [...] Telephone Encounter - Ollie Stein DO - 06/12/2023 3:15 PM EDTRefused Prescriptions: Disp Refills Zolpidem Tartrate 5 MG Oral Tablet (Ambien)30 Tab*0 Sig: Take 1Tablet by mouth at bedtime as needed for Sleep.Refused By: OLLIE STEIN for Refusal: Duplicate Request * Telephone Encounter - Shayna Talley RN - 06/11/2023 8:37 AM EDTPending Prescriptions: Disp Refills Zolpidem Tartrate 5 MG Oral Tablet (Ambien)30 Tab*0 Sig: Take 1 Tablet by mouth at bedtime as needed for Sleep. * Telephone Encounter - Jolly Leonard, SONIA - 06/11/2023 8:34 AM EDT Did you pend patient's preferred pharmacy and medication before forwarding?yes [facility] [address] [place] Pending Prescriptions: Disp Refills Zolpidem Tartrate 5 MG Oral Tablet (Ambie*30 Tab*0 Sig: Take 1 Tablet by mouth at bedtime as needed for Sleep. Last Visit: 03/25/2023 (in office), Visit date not found (telemedicine) Next Visit: 06/24/2023 If no future appointments scheduled, and last appointment is greater than a year ago, please schedule patient for a follow-up appointment Last date the medication was ordered: 04.21.23 Is this request for a controlled substance?No [...] UPON REQUEST. [employer] Patient Phone Numbers [facility] [phone] Labs: Lab Results Component Value Date/Time CREAT 1.1 05/14/2023 03:34 PM CREAT 1.2 12/13/2019 04:22 PM POTASSIUM 4.1 05/14/2023 03:34 PM POTASSIUM 4.4 12/13/2019 04:22 PM TSH 2.14 12/16/2016 08:17 AM LDLCALC 97 02/11/2023 01:50 PM LDLCALC 80 12/02/2018 03:14 PM LDLDIRECT 74 03/08/2022 03:35 PM LDLDIRECT NOT APPLICABLE 12/02/2018 03:14 PM ALT 65 (H) 05/14/2023 03:34 PM ALT 29 12/13/2019 04:22 PM HGBA1C 5.6 08/14/2017 02:54 PM documented in this encounter Plan of Treatment Upcoming Encounters Date Type Department Care Team (Late st Contact Info) Description 06/24/2023 8:30 AM EDT Office Visit Family Medicine [address] [place] [phone] [address] [place] [address] 09/01/2023 8:30 AM EDT Imaging Radiology [address] [place] [address] 09/08/2023 3:00 PM EDT Office Visit Gastroenterology, [facility] [address] [place] [address] Anatoliy Meza CRNP [address] [place] [address] Scheduled Procedures Name Priority Associated Diagnoses Date/Ti [...] as of this encounter Visit Diagnoses Diagnosis History of alcohol abuse Nondependent alcohol abuse, [...] the patient have Health Care Power of Blow Mold Machine Operator? No Code Status History Code [...] the patient have Health Care Power of Blow Mold Machine Operator? No Full Code 02/10/2016 5:50 PM 02/20/2016 12:09 AM Th is order reflects the patients wishes and were consensually agreed upon. Question Answer Comments Discussion of Advance Directives occurred with: Patient Does the patient have a Living Will? No Does the patient have Health Care Power of Blow Mold Machine Operator? No Full Code 01/15/2016 3:25 PM 01/18/2016 6:24 PM Thi s order reflects the patients wishes and were consensually agreed upon. Question Answer Comments Discussion of Advance Directives occurred with: Patient Does the patient have a Living Will? No Does the patient have Health Care Power of Blow Mold Machine Operator? No Care Teams Senior Systems Engineer Relationship Specialty Start Date End Date Ollie Stein DO [address] [place] [address] [place] [id number] PCP - General Internal Medicine 06/07/16 documented as of this encounter
--- OUTSIDE RECORDS SUMMARY | 2023-07-04 07:00 | External Medical Summary | Summary of Care ---
Author Name Unknown Organization [facility] Address [address] [facility] [place] [address] Phone [phone] Care Team Providers Care Applications Administrator Name Role Phone Michelle Borrego DO Primary Care Provider [phone] Encounter Details Date Type Department Care Team (Late st Contact Info) Description 06/18/2023 Telephone Gastroenterology, [facility] [address] [place] [address] Anatoliy Meza CRNP [address] [place] [address] Allergies Active Allergy Reactions Criticality Noted Date [...] for Sleep. 30 Tablet 0 06/12/2023 Active documented as of this encounter (statuses [...] Ballard OSA - 06/18/2023 8:09 AM EDT Error documented in this encounter Plan of Treatment Upcoming Encounters Date Type Department Care Team (Late st Contact Info) Description 06/24/2023 8:30 AM EDT Office Visit Family Medicine [address] [place] [phone] [place] [address] 09/01/2023 8:30 AM EDT Imaging Radiology [address] [place] [address] 09/08/2023 3:00 PM EDT Office Visit Gastroenterology, [facility] [address] [place] [address] Anatoliy Meza CRNP [address] [place] [place] [address] Scheduled Procedures Name Priority Associated Diagnoses Date/Ti [...] Depression Screening 12/20/2020 12/21/2019 Cologuard 08/23/2025 08/23/2022, 05/, 08/17/2022 Colorectal Cancer Screening 08/23/2025 Diabetes Screening [...] the patient have Health Care Power of Traveling Engineer? No Code Status History Code Status Date [...] the patient have Health Care Power of Traveling Engineer? No Full Code 02/10/2016 5:50 PM 02/20/2016 12:09 AM Th is order reflects the patients wishes and were consensually agreed upon. Question Answer Comments Discussion of Advance Directives occurred with: Patient Does the patient have a Living Will? No Does the patient have Health Care Power of Traveling Engineer? No Full Code 01/15/2016 3:25 PM 01/18/2016 6:24 PM Thi s order reflects the patients wishes and were consensually agreed upon. Question Answer Comments Discussion of Advance Directives occurred with: Patient Does the patient have a Living Will? No Does the patient have Health Care Power of Traveling Engineer? No Care Teams Applications Administrator Relationship Specialty Start Date End Date Michelle Borrego DO [address] [place] [address] [place] [address] PCP - General Internal Medicine 06/07/16 documented as of this encounter
--- OUTSIDE RECORDS SUMMARY | 2023-07-04 07:00 | External Medical Summary | Summary of Care ---
Author Name Unknown Organization [facility] Address [address] [place] [address] Phone [phone] Care Team Providers Care Shoe Turner Name Role Phone Michelle Borrego Primary Care Provider [phone] Reason for Visit * Reason Onset Date Comments MyCode Consent 06/24/2023 Encounter Details Date Type Department Care Team (Late st Contact Info) Description 06/24/2023 Orders Only Outcomes Research Department [address] [place], [place] [id number] Alma Randolph CHRA MyCode Research Other*[id number]* Allergies Active Allergy Reactions Criticality Noted Date [...] as of this encounter Progress Notes * Alma Randolph CHRA - 06/24/2023 8:18 AM EDT MyCode Consent Documentation Darrel Guillory provided consent/authorization to participate in the MyCode Project. documented in this encounter Plan of Treatment Upcoming Encounters Date Type Department Care Team (Late st Contact Info) Description 09/01/2023 8:30 AM EDT Imaging Radiology [address] [place] [address] 09/08/2023 3:00 PM EDT Office Visit Gastroenterology, [facility] [address] [place] [address] Anatoliy Meza CRNP [address] [place] [address] Scheduled Orders Name Type Priority Associated Diagnoses Orde r Schedule MYCODE INITIAL ADULT Lab Routine MyCode Research Other*[id number] Expected: 06/24/2023 (Approximate), Expires: 07/13/2024 Scheduled Procedures Name Priority Associated Diagnoses Date/Ti [...] as of this encounter Visit Diagnoses Diagnosis MyCode Research Other*[id number]- Primary documented in this encounter Advance Directives Latest Code Status on File Code Status Date Activated Date Inactivated Comments Full Code 07/11/2019 11:18 PM 07/16/2019 4:51 PM This order reflects the patients wishes and were consensually agreed upon. Question Answer Comments Discussion of Advance Directives occurred with: Patient Does the patient have a Living Will? No Does the patient have Health Care Power of Climatology Professor? No Code Status History Code Status [...] the patient have Health Care Power of Climatology Professor? No Full Code 02/10/2016 5:50 PM 02/20/2016 12:09 AM Th is order reflects the patients wishes and were consensually agreed upon. Question Answer Comments Discussion of Advance Directives occurred with: Patient Does the patient have a Living Will? No Does the patient have Health Care Power of Climatology Professor? No Full Code 01/15/2016 3:25 PM 01/18/2016 6:24 PM Thi s order reflects the patients wishes and were consensually agreed upon. Question Answer Comments Discussion of Advance Directives occurred with: Patient Does the patient have a Living Will? No Does the patient have Health Care Power of Climatology Professor? No Care Teams Shoe Turner Relationship Specialty Start Date End Date Michelle Borrego DO [address] [place] [address] [place] [address] PCP - General Internal Medicine 06/07/16 documented as of this encounter
--- OUTSIDE RECORDS SUMMARY | 2023-07-04 07:00 | External Medical Summary | Summary of Care ---
Author Name Unknown Organization [facility] Address [address] [facility] [address] Phone [phone] Care Team Providers Care Credit Specialist Name Role Phone Michelle Borrego DO Primary Care Provider + [phone] Reason for Visit * Reason Onset Date Comments Medication Refill 06/11/2023 Encounter Details Date Type Department Care Team (Late st Contact Info) Description 06/11/2023 Refill Family Medicine [address] [address] Michelle Borrego DO [address] [place] [address] [place] [address] History of alcohol abuse; Persistent insomnia Allergies Active Allergy Reactions Criticality Noted Date Comments Aspirin Other (Please comment) 02/12/2016 Reports having a bloody nose. documented as of this encounter (statuses as of 06/13/2023) Medications Medication Sig Dispensed Refills Start Date [...] as of this encounter (statuses as of 06/13/2023) Active Problems Problem Noted Date Diagnosed Date [...] as of this encounter (statuses as of 06/13/2023) Resolved Problems Problem Noted Date Diagnosed Date [...] as of this encounter (statuses as of 06/13/2023) Immunizations Name Administration Dates Next Due COVID-19 [...] encounter Miscellaneous Notes * Telephone Encounter - Jhonny Rich RPh - 06/13/2023 10:17 AM EDT Refused Prescriptions: Disp Refills Zolpidem Tartrate 5 MG Oral Tablet (Ambien)30 Tab*0 Sig: Take 1Tablet by mouth at bedtime as needed for Sleep.[facility]used [facility]: [facility]: Duplicate Request documented in this encounter Plan of Treatment Upcoming Encounters Date Type Department Care Team (Late st Contact Info) Description 06/24/2023 8:30 AM EDT Office Visit Family Medicine [address] [place] [phone] Michelle Borrego [address] [place] [address] 09/01/2023 8:30 AM EDT Imaging Radiology [address] [place] [address] 09/08/2023 3:00 PM EDT Office Visit Gastroenterology, [facility] [address] [place] [address] Anatoliy Meza CRNP [address] [place] [address] Scheduled Procedures Name Priority Associated Diagnoses Date/Ti [...] the patient have Health Care Power of .Net Architect? No Code Status History Code Status Date [...] the patient have Health Care Power of .Net Architect? No Full Code 02/10/2016 5:50 PM 02/20/2016 12:09 AM Th is order reflects the patients wishes and were consensually agreed upon. Question Answer Comments Discussion of Advance Directives occurred with: Patient Does the patient have a Living Will? No Does the patient have Health Care Power of .Net Architect? No Full Code 01/15/2016 3:25 PM 01/18/2016 6:24 PM Thi s order reflects the patients wishes and were consensually agreed upon. Question Answer Comments Discussion of Advance Directives occurred with: Patient Does the patient have a Living Will? No Does the patient have Health Care Power of .Net Architect? No Care Teams Credit Specialist Relationship Specialty Start Date End Date Michelle Borrego DO [address] [place] [address] [place] [address] PCP - General Internal Medicine 06/07/16 documented as of this encounter
--- OUTSIDE RECORDS SUMMARY | 2023-07-04 07:00 | External Medical Summary | Summary of Care ---
Author Name Unknown Organization [facility] Address [address] [facility] [place] [address] Phone [phone] Care Team Providers Care Rn Assessment Name Role Phone Michelle Borrego DO Primary Care Provider [phone] Encounter Details Date Type Department Care Team (Late st Contact Info) Description 06/18/2023 Telephone Gastroenterology, [facility] [address] [place] [address] Anatoliy Meza CRNP [address] [place] [address] Allergies Active Allergy Reactions Criticality Noted Date [...] 8:30 AM EDT Office Visit Family Medicine [address] [place] [phone] [address] [place] [address] 09/01/2023 8:30 AM EDT Imaging Radiology [address] [place] [address] 09/08/2023 3:00 PM EDT Office Visit Gastroenterology, [facility] [address] [place] [address] Anatoliy Meza CRNP [address] [place] [address] Scheduled Procedures Name Priority Associated Diagnoses Date/Ti [...] the patient have Health Care Power of Vehicle Monitor Technician? No Code Status History Code Status [...] the patient have Health Care Power of Vehicle Monitor Technician? No Full Code 02/10/2016 5:50 PM 02/20/2016 12:09 AM Th is order reflects the patients wishes and were consensually agreed upon. Question Answer Comments Discussion of Advance Directives occurred with: Patient Does the patient have a Living Will? No Does the patient have Health Care Power of Vehicle Monitor Technician? No Full Code 01/15/2016 3:25 PM 01/18/2016 6:24 PM Thi s order reflects the patients wishes and were consensually agreed upon. Question Answer Comments Discussion of Advance Directives occurred with: Patient Does the patient have a Living Will? No Does the patient have Health Care Power of Vehicle Monitor Technician? No Care Teams Rn Assessment Relationship Specialty Start Date End Date Michelle Borrego DO [address] [place] [address] [place] [address] PCP - General Internal Medicine 06/07/16 documented as of this encounter
--- OUTSIDE RECORDS SUMMARY | 2023-07-04 07:01 | External Medical Summary | Summary of Care ---
Author Name Unknown Organization [facility] Address [address] [facility] [address] Phone [phone] Care Team Providers Care Pastry Mixer Name Role Phone Michelle Borrego Primary Care Provider [phone] Reason for Visit * Reason Onset Date Comments Forms Request 06/02/2023 [facility] paperwork Encounter Details Date Type Department Care Team (Late st Contact Info) Description 06/02/2023 Telephone [facility] [place] [address] Anatoliy Meza CRNP [address] [place] [address] Forms Request ([facility] paperwork ) Allergies Active Allergy Reactions [...] 04/07/2023 06/09/2023 Discontinued (Medication List Clean Up) documented as of this [...] encounter Miscellaneous Notes * Telephone Encounter - Linnette Gama LPN - 06/02/2023 12:34 PM EST Anatoliy, we received [facility] paperwork for this pt today, left in the nursing basket to complete next time you are in clinic documented in this encounter Plan of Treatment Upcoming Encounters Date Type Department Care Team (Late st Contact Info) Description 06/24/2023 8:30 AM EDT Office Visit Family Medicine [address] [place] [phone] Michelle Borreg[address] [place] [address] 09/01/2023 8:30 AM EDT Imaging Radiology [address] [place] [address] 09/08/2023 3:00 PM EDT Office Visit Gastroenterology, [facility] [address] [place] [address] Anatoliy Meza CRNP [address] [place] [address] Scheduled Procedures Name Priority Associated Diagnoses Date/Ti [...] the patient have Health Care Power of Program Or Project Administrator? No Code Status History Code Status Date [...] the patient have Health Care Power of Program Or Project Administrator? No Full Code 02/10/2016 5:50 PM 02/20/2016 12:09 AM Th is order reflects the patients wishes and were consensually agreed upon. Question Answer Comments Discussion of Advance Directives occurred with: Patient Does the patient have a Living Will? No Does the patient have Health Care Power of Program Or Project Administrator? No Full Code 01/15/2016 3:25 PM 01/18/2016 6:24 PM Thi s order reflects the patients wishes and were consensually agreed upon. Question Answer Comments Discussion of Advance Directives occurred with: Patient Does the patient have a Living Will? No Does the patient have Health Care Power of Program Or Project Administrator? No Care Teams Pastry Mixer Relationship Specialty Start Date End Date Michelle Borrego DO [address] [place] [address] [place] [address] PCP - General Internal Medicine 06/07/16 documented as of this encounter
--- OUTSIDE RECORDS SUMMARY | 2023-07-04 07:01 | External Medical Summary | Summary of Care ---
Author Name Unknown Organization [facility] Address [address] [facility] [address] Phone [phone] Care Team Providers Care Project Management Name Role Phone Elmo Michelle Mari KEITA Primary Care Provider [phone] Reason for Visit * Reason Onset Date Comments Hospital Follow-Up 06/09/2023 [facility] from [facility] Encounter Details Date Type Department Care Team (Late st Contact Info) Description 06/09/2023 Telephone Ancillary [address] [place] [address] Erni Jolley, FELIPE Hospital Follow-Up ([facility] from [facility]) Allergies Active Allergy Reactions Criticality Noted Date Comments Aspirin Other (Please comment) 02/12/2016 Reports having a bloody nose. documented as of this encounter (statuses as of 06/09/2023) Medications Medication Sig Dispensed Refills Start Date [...] as of this encounter (statuses as of 06/09/2023) Active Problems Problem Noted Date Diagnosed Date [...] as of this encounter (statuses as of 06/09/2023) Resolved Problems Problem Noted Date Diagnosed Date [...] as of this encounter (statuses as of 06/09/2023) Immunizations Name Administration Dates Next Due COVID-19 [...] Telephone Encounter - Erin Jolley RN - 06/09/2023 3:08 PM EDT Transitions of Care Note Reason for Referral:Recent Admission Phone visit for follow up: armand Admitted to: [facility], Date: 06.01.23 Discharged to: home, Date: 06.06.23 Diagnosis driving hospitalization: Alcohol use disorder Alcohol withdrawal Likely neuropathic BLE pain Pancytopenia Alcoholic cirrhosis of liver Source/Contact: Patient SUBJECTIVE Consent: Verbal consent for review of hospital discharge: Yes REVIEW OF SYSTEMS Patient/Other Reports: Current patient/caregiver problems or concerns: none CV: Denies problems Pulmonary: Denies problems Chills/Sweats/Fever:Denies chills/sweats Denies fever Appetite:Denies problems such as nausea, vomiting, burning, decreased appetite Current diet: reg Bowel: denies problems Bladder: denies problems Wound (If applicable): N/A Pain:Denies Sleep:Problematic-patient is not sleeping well, he can fall asleep but can't stay asleep. Patient did well on Ambien but needs RF FUNCTIONAL STATUS: ADL'S: Needs Assistance With:N/A as pt is independent IADL'S: Needs Assistance With:N/A as pt is independent Cognitive and Mental Health: denies problems, alert and oriented x 3, and able to communicate, understand instructions, process information. MEDICATION RECONCILIATION Medications: Reports all medications taken as prescribed. OBJECTIVE ASSESSMENT Medication Risk Assessment: No risks identified Did patient fail outpatient treatment? No Discharge instructions available for review? Yes PLAN Symptom Monitoring Interventions:Member/caregiver education - signs and symptoms to contact PrimaryCare (DO NOT DELETE-Three rojas symptoms patient is to report to PCP) 1. Icreased N/V 2. Abnormal bleeding 3. Severe leg pain worsens Dial MakerMains And Service Supervisor of Care interventions/Action Plan: 5 - 7 day follow-up with PCP in place - Date: offered two appointment and patient unable to make them, patient has an appointment 06/23 and wants to keep Educated on role of ARMAND completed with patient/caregiver. Educated patient/caregiver on patient right to have input on ARMAND plan of care. Verification of Home Health/DME if indicated: NO Identified Care Gaps: No Care Gaps closed this call: Transition of Care follow-up communication Re-evaluation of Plan of Care and progress towards goals achievement: Patient education this visit: Verbal, patient to increase water, review rehab information givne and write down questions and concerns to discuss with pcp Plan to follow-up as previously scheduled, instructed to call Primary Care Provider with change in symptoms or as needed before next follow-up, verbalizes understanding and agrees with plan. For your liver cirrhosis, you will benefit by establishing with hepatology upon discharge. Coordinate with your PCP office to set up the referral. I will send a separate encounter to Michelle Borrego DO requestiong RF and discuss labs. Erin Jolley RN documented in this encounter Plan of Treatment Upcoming Encounters Date Type Department Care Team (Late st Contact Info) Description 06/24/2023 8:30 AM EDT Office Visit Family Medicine [address] [place] [phone] Michelle Borrego DO [address] [place] [address] [place] [address] 09/01/2023 8:30 AM EDT Imaging Radiology [address] [place] [address] 09/08/2023 3:00 PM EDT Office Visit Gastroenterology, [facility] [address] [place] [address] Anatoliy Meza CRNP [address] [place] [address] Scheduled Procedures Name Priority Associated Diagnoses Date/Ti [...] the patient have Health Care Power of Campus Ambassador? No Code Status History Code Status Date [...] the patient have Health Care Power of Campus Ambassador? No Full Code 02/10/2016 5:50 PM 02/20/2016 12:09 AM Th is order reflects the patients wishes and were consensually agreed upon. Question Answer Comments Discussion of Advance Directives occurred with: Patient Does the patient have a Living Will? No Does the patient have Health Care Power of Campus Ambassador? No Full Code 01/15/2016 3:25 PM 01/18/2016 6:24 PM Thi s order reflects the patients wishes and were consensually agreed upon. Question Answer Comments Discussion of Advance Directives occurred with: Patient Does the patient have a Living Will? No Does the patient have Health Care Power of Campus Ambassador? No Care Teams Project Management Relationship Specialty Start Date End Date Michelle Borrego DO [address] [place] [address] [place] [address] PCP - General Internal Medicine 06/07/16 documented as of this encounter
--- OUTSIDE RECORDS SUMMARY | 2023-07-04 07:01 | External Medical Summary | Summary of Care ---
Author Name Unknown Organization [facility] Address [address] [facility] [address] Phone [phone] Care Team Providers Care Financial Analyst Name Role Phone Michelle Borrego Primary Care Provider [phone] Reason for Visit * Reason Onset Date Comments Forms Request 06/02/2023 [facility] paperwork Encounter Details Date Type Department Care Team (Late st Contact Info) Description 06/02/2023 Telephone [facility]astroenterology, [facility] [place] [address] Anatoliy Meza CRNP [address] [place] [address] Forms Request ([facility] paperwork ) Allergies Active Allergy Reactions Criticality [...] Aguilar RN - 06/12/2023 12:10 PM EDT [facility] papers faxed to [facility] * Telephone Encounter - Anatoliy Meza CRNP - 06/12/2023 10:59 AM EDT Completed, please fax. Given to nursing. RUPERT Comer * Telephone Encounter - Linnette Gama LPN - 06/02/2023 12:34 PM EST Anatoliy we received [facility] paperwork for this pt today, left in the nursing basket to complete next time you are in clinic documented in this encounter Plan of Treatment Upcoming Encounters Date Type Department Care Team (Late st Contact Info) Description 06/24/2023 8:30 AM EDT Office Visit Family Medicine [address] [place] [phone] [address] [place] [address] 09/01/2023 8:30 AM EDT Imaging Radiology [address] [place] [address] 09/08/2023 3:00 PM EDT Office Visit Gastroenterology, [facility] [address] [place] [address] Anatoliy Meza CRNP [address] [place] [address] Scheduled Procedures Name Priority Associated Diagnoses Date/Ti [...] the patient have Health Care Power of Senior Office Support Assistant Sosa? No Code Status History Code Status Date [...] the patient have Health Care Power of Senior Office Support Assistant Sosa? No Full Code 02/10/2016 5:50 PM 02/20/2016 12:09 AM Th is order reflects the patients wishes and were consensually agreed upon. Question Answer Comments Discussion of Advance Directives occurred with: Patient Does the patient have a Living Will? No Does the patient have Health Care Power of Senior Office Support Assistant Sosa? No Full Code 01/15/2016 3:25 PM 01/18/2016 6:24 PM Thi s order reflects the patients wishes and were consensually agreed upon. Question Answer Comments Discussion of Advance Directives occurred with: Patient Does the patient have a Living Will? No Does the patient have Health Care Power of Senior Office Support Assistant Sosa? No Care Teams Financial Analyst Relationship Specialty Start Date End Date Michelle Borrego DO [address] [place] [address] [place] [id number] PCP - General Internal Medicine 06/07/16 documented as of this encounter
--- OUTSIDE RECORDS SUMMARY | 2023-07-04 07:01 | External Medical Summary | Summary of Care ---
Author Name Unknown Organization [facility] Address [address] [facility] [address] Phone [phone] Care Team Providers Care Tool Operator Name Role Phone Michelle Borrego Primary Care Provider [phone] Reason for Visit * Reason Onset Date Comments Other 06/10/2023 Encounter Details Date Type Department Care Team (Late st Contact Info) Description 06/10/2023 Telephone Gastroenterology, [facility] [address] [place] [address] Anatoliy Meza CRNP [address] [place] [address] Other Allergies Active Allergy Reactions Criticality Noted Date Comments Aspirin Other (Please comment) 02/12/2016 Reports having a bloody nose. documented as of this encounter (statuses as of 06/10/2023) Medications Medication Sig Dispensed Refills Start Date [...] as of this encounter (statuses as of 06/10/2023) Active Problems Problem Noted Date Diagnosed Date [...] as of this encounter (statuses as of 06/10/2023) Resolved Problems Problem Noted Date Diagnosed Date [...] as of this encounter (statuses as of 06/10/2023) Immunizations Name Administration Dates Next Due COVID-19 [...] encounter Miscellaneous Notes * Telephone Encounter - Mara Proctor RN - 06/10/2023 4:48 PM EDT Received fax from [employer] case management. They were requesting care plan information. Faxed last office visit note to the fax number provided, documented in this encounter Plan of Treatment Upcoming Encounters Date Type Department Care Team (Late st Contact Info) Description 06/24/2023 8:30 AM EDT Office Visit Family Medicine [address] [place] [phone] [address] [place] [address] 09/01/2023 8:30 AM EDT Imaging Radiology [address] [place] [address] 09/08/2023 3:00 PM EDT Office Visit Gastroenterology, [address] [place] [address] Anatoliy Meza CRNP [address] [place] [address] Scheduled Procedures Name Priority Associated Diagnoses Date/Ti [...] the patient have Health Care Power of Electric Motor Analyst? No Code Status History Code Status Date [...] the patient have Health Care Power of Electric Motor Analyst? No Full Code 02/10/2016 5:50 PM 02/20/2016 12:09 AM Th is order reflects the patients wishes and were consensually agreed upon. Question Answer Comments Discussion of Advance Directives occurred with: Patient Does the patient have a Living Will? No Does the patient have Health Care Power of Electric Motor Analyst? No Full Code 01/15/2016 3:25 PM 01/18/2016 6:24 PM Thi s order reflects the patients wishes and were consensually agreed upon. Question Answer Comments Discussion of Advance Directives occurred with: Patient Does the patient have a Living Will? No Does the patient have Health Care Power of Electric Motor Analyst? No Care Teams Tool Operator Relationship Specialty Start Date End Date Michelle Borrego DO [address] [place] [address] [place] [address] PCP - General Internal Medicine 06/07/16 documented as of this encounter
--- OUTSIDE RECORDS SUMMARY | 2023-07-04 07:01 | External Medical Summary | Summary of Care ---
Author Name Unknown Organization [facility] Address [address] [facility] [address] Phone [phone] Care Team Providers Care Teller Coordinator Name Role Phone Michelle Borrego Primary Care Provider [phone] Reason for Visit * Reason Onset Date Comments Forms Request 06/02/2023 [facility] paperwork Encounter Details Date Type Department Care Team (Late st Contact Info) Description 06/02/2023 Telephone [facility], [facility] [place] [address] Anatoliy Meza CRNP [address] [place] [address] Forms Request ([facility] paperwork ) Allergies Active Allergy Reactions Criticality [...] encounter Miscellaneous Notes * Telephone Encounter - Anatoliy Meza CRNP - 06/12/2023 10:59 AM EDT Completed, please fax. Given to nursing. RUPERT Comer * Telephone Encounter - Linnette Gama LPN - 06/02/2023 12:34 PM EST tereza Cope received [facility] paperwork for this pt today, left in the nursing basket to complete next time you are in clinic documented in this encounter Plan of Treatment Upcoming Encounters Date Type Department Care Team (Late st Contact Info) Description 06/24/2023 8:30 AM EDT Office Visit [place] [phone] Vikash Borregoanda Guerra[address] [place] [address] 09/01/2023 8:30 AM EDT Imaging Radiology [address] [place] [address] 09/08/2023 3:00 PM EDT Office Visit Gastroenterology, [facility] [address] [place] [address] Anatoliy Meza CRNP [address] [place] [address] Scheduled Procedures Name Priority Associated Diagnoses Date/Ti [...] the patient have Health Care Power of Dressage Instructor? No Code Status History Code Status Date [...] the patient have Health Care Power of Dressage Instructor? No Full Code 02/10/2016 5:50 PM 02/20/2016 12:09 AM Th is order reflects the patients wishes and were consensually agreed upon. Question Answer Comments Discussion of Advance Directives occurred with: Patient Does the patient have a Living Will? No Does the patient have Health Care Power of Dressage Instructor? No Full Code 01/15/2016 3:25 PM 01/18/2016 6:24 PM Thi s order reflects the patients wishes and were consensually agreed upon. Question Answer Comments Discussion of Advance Directives occurred with: Patient Does the patient have a Living Will? No Does the patient have Health Care Power of Dressage Instructor? No Care Teams Teller Coordinator Relationship Specialty Start Date End Date Michelle Borrego DO [address] [place] [address] [place] [address] PCP - General Internal Medicine 06/07/16 documented as of this encounter
--- OUTSIDE RECORDS SUMMARY | 2023-07-04 07:01 | External Medical Summary | Summary of Care ---
Author Name Unknown Organization [facility] Address [address] [place] [facility] [address] Phone [phone] Care Team Providers Care Crop Supervisor Name Role Phone Michelle Borrego DO Primary Care Provider [phone] Reason for Visit * Reason Onset Date Comments Med Request 06/09/2023 Encounter Details Date Type Department Care Team (Late st Contact Info) Description 06/09/2023 Telephone Family Medicine [address] [phone] Michelle Borrego DO [address] [place] [address] [place] [address] Med Request Allergies Active Allergy Reactions Criticality [...] for Sleep. 30 Tablet 0 06/12/2023 Active Zolpidem Tartrate 5 MG Oral Tablet [...] Telephone Encounter - Erin Jolley RN - 06/12/2023 2:44 PM EDT Patient notified. Reason for Call: Med Request Contact: Telephone Call Contact Type: Medication Outcome: see note Face to face time spent with Patient (minutes): 0 Total Time including non face to face (minutes): 10 * Telephone Encounter - Michelle Borrego DO - 06/12/2023 2:31 PM EDT Ambien ordered. Labs not needed. Notify pt. I will see him on the . * Telephone Encounter - Michelle Borrego DO - 06/12/2023 2:28 PM EDT I have reviewed the patients controlled substance dispensing history in the Prescription Drug Monitoring Program in compliance with the [facility] regulations before prescribing a controlled substance. Last Tox Screen Results: Results for orders placed or performed in [...] TESTING IS AVAILABLE UPON REQUEST. [facility] * Telephone Encounter - Erin Jolley RN - 06/09/2023 3:30 PM EDT Spoke to patient re HD from [facility] Admitted to: [facility], Date: 06.01.23 Discharged to: home, Date: 06.06.23 Diagnosis driving hospitalization: Alcohol use disorder Alcohol withdrawal Likely neuropathic BLE pain Pancytopenia Alcoholic cirrhosis of liver Patient is not sleeping well and wanted to know if you would refill his Ambien? He is also due to have labs done within one week of discharge. Patient was offered 2 sooner appointment for HD and requesting to keep appointment with Michelle Borrego DO on 06/23. Provider to address: RF of ambien, and if labs should be done within the week. Pended Ambien and labs, if agree please sign. Reason for Call: Med Request Contact: Telephone Call Contact Type: Advice Outcome: see note Face to face time spent with Patient (minutes): 0 Total Time including non face to face (minutes): 10 documented in this encounter Plan of Treatment Upcoming Encounters Date Type Department Care Team (Late st Contact Info) Description 06/24/2023 8:30 AM EDT Office Visit Family Medicine [address] [place] [phone] Michelle Borreg[address] [place] [address] 09/01/2023 8:30 AM EDT Imaging Radiology [address] [place] [address] 09/08/2023 3:00 PM EDT Office Visit Gastroenterology, [facility] [address] [place] [address] Anatoliy Meza CRNP [address] [place] [address] Scheduled Procedures Name Priority Associated Diagnoses Date/Ti [...] the patient have Health Care Power of Neon Sign Erector? No Code Status History Code Status Date [...] the patient have Health Care Power of Neon Sign Erector? No Full Code 02/10/2016 5:50 PM 02/20/2016 12:09 AM Th is order reflects the patients wishes and were consensually agreed upon. Question Answer Comments Discussion of Advance Directives occurred with: Patient Does the patient have a Living Will? No Does the patient have Health Care Power of Neon Sign Erector? No Full Code 01/15/2016 3:25 PM 01/18/2016 6:24 PM Thi s order reflects the patients wishes and were consensually agreed upon. Question Answer Comments Discussion of Advance Directives occurred with: Patient Does the patient have a Living Will? No Does the patient have Health Care Power of Neon Sign Erector? No Care Teams Crop Supervisor Relationship Specialty Start Date End Date Michelle Borrego DO [address] [place] [address] [place] [address] PCP - General Internal Medicine 06/07/16 documented as of this encounter
--- OUTSIDE RECORDS SUMMARY | 2023-07-04 07:02 | External Medical Summary | Summary of Care ---
Author Name Unknown Organization [facility] Address [address] [facility] [address] Phone [phone] Care Team Providers Care Facial Operator Name Role Phone Michelle Borrego Primary Care Provider [phone] Reason for Visit * Reason Onset Date Comments Forms Request 06/02/2023 [facility] paperwork Encounter Details Date Type Department Care Team (Late st Contact Info) Description 06/02/2023 Telephone [facility]astroenterology, [facility] [place] [address] Anatoliy Meza CRNP [address] [place] [address] Forms Request ([facility] paperwork ) Allergies Active Allergy Reactions [...] 06/02/2023 12:34 PM EST Anatoliy, we received [facility] paperwork for this pt today, left in the nursing basket to complete next time you are in clinic documented in this encounter Plan of Treatment Upcoming Encounters Date Type Department Care Team (Late st Contact Info) Description 06/16/2023 10:40 AM EDT Office Visit [address] [place] [phone] Cheryl Purvis PA-C [address] [place] [address] [place] [address] 06/24/2023 8:30 AM EDT Office Visit [address] [place] [phone] [place] [address] 09/01/2023 8:30 AM EDT Imaging Radiology [address] [place] [address] 09/08/2023 3:00 PM EDT Office Visit Gastroenterology, [facility] [address] [place] [address] Anatoliy Meza CRNP [address] [place] [address] Scheduled Procedures Name Priority Associated Diagnoses Date/Ti [...] the patient have Health Care Power of Rd Lab Technician? No Code Status History Code Status [...] the patient have Health Care Power of Rd Lab Technician? No Full Code 02/10/2016 5:50 PM 02/20/2016 12:09 AM Th is order reflects the patients wishes and were consensually agreed upon. Question Answer Comments Discussion of Advance Directives occurred with: Patient Does the patient have a Living Will? No Does the patient have Health Care Power of Rd Lab Technician? No Full Code 01/15/2016 3:25 PM 01/18/2016 6:24 PM Thi s order reflects the patients wishes and were consensually agreed upon. Question Answer Comments Discussion of Advance Directives occurred with: Patient Does the patient have a Living Will? No Does the patient have Health Care Power of Rd Lab Technician? No Care Teams Facial Operator Relationship Specialty Start Date End Date Michelle Borrego DO [address] [place] [address] [place] [address] PCP - General Internal Medicine 06/07/16 documented as of this encounter
--- OUTSIDE RECORDS SUMMARY | 2023-07-04 07:02 | External Medical Summary | Summary of Care ---
Author Name Unknown Organization [facility] Address [address] [place] [address] Phone [phone] Care Team Providers Care Elevator Mechanic Name Role Phone Michelle Borrego Primary Care Provider + [phone] Reason for Visit * Reason Onset Date Comments Forms Request 06/02/2023 [facility] paperwork Encounter Details Date Type Department Care Team (Late st Contact Info) Description 06/02/2023 Telephone [facility]astroenterology, [facility] [place] [address] [facility]za [facility] [place] [address] Forms Request ([facility] paperwork ) Allergies Active Allergy Reactions Criticality Noted Date Comments Aspirin Other (Please comment) 02/12/2016 Reports having a bloody nose. documented as of this encounter (statuses as of 06/02/2023) Medications Medication Sig Dispensed Refills Start Date [...] as of this encounter (statuses as of 06/02/2023) Active Problems Problem Noted Date Diagnosed Date [...] as of this encounter (statuses as of 06/02/2023) Resolved Problems Problem Noted Date Diagnosed Date [...] as of this encounter (statuses as of 06/02/2023) Immunizations Name Administration Dates Next Due COVID-19 [...] 06/02/2023 12:34 PM EST Anatoliy, we received [facility] paperwork for this pt today, left in the nursing basket to complete next time you are in clinic documented in this encounter Plan of Treatment Upcoming Encounters Date Type Department Care Team (Late st Contact Info) Description 06/24/2023 8:30 AM EDT Office Visit Family Medicine [address] [place] [phone] [address] [place] [address] 09/01/2023 8:30 AM EDT Imaging Radiology [address] [place] [address] 09/08/2023 3:00 PM EDT Office Visit Gastroenterology, [facility] [address] [place] [address] Anatoliy Meza CRNP [address] [place] [address] Scheduled Procedures Name Priority Associated Diagnoses Date/Ti [...] the patient have Health Care Power of Civil Celebrant? No Code Status History Code Status Date [...] the patient have Health Care Power of Civil Celebrant? No Full Code 02/10/2016 5:50 PM 02/20/2016 12:09 AM Th is order reflects the patients wishes and were consensually agreed upon. Question Answer Comments Discussion of Advance Directives occurred with: Patient Does the patient have a Living Will? No Does the patient have Health Care Power of Civil Celebrant? No Full Code 01/15/2016 3:25 PM 01/18/2016 6:24 PM Thi s order reflects the patients wishes and were consensually agreed upon. Question Answer Comments Discussion of Advance Directives occurred with: Patient Does the patient have a Living Will? No Does the patient have Health Care Power of Civil Celebrant? No Care Teams Elevator Mechanic Relationship Specialty Start Date End Date Michelle Borrego DO [address] [place] [address] [place] [address] PCP - General Internal Medicine 06/07/16 documented as of this encounter
[2023-07-04] MEDS: CYANOCOBALAMIN (B-12) 500 MCG TABLET PO SCH (08:06)
[2023-07-04] MEDS: CITALOPRAM 20 MG TAB PO SCH (08:06)
[2023-07-04] MEDS: FUROSEMIDE 20 MG TAB PO SCH (08:07)
[2023-07-04] MEDS: SPIRONOLACTONE 25 MG TAB PO SCH (08:07)
[2023-07-04] MEDS: POTASSIUM CHLORIDE 10 MEQ TABCR PO SCH (08:07)
[2023-07-04] MEDS: PANTOprazole 40 MG TAB PO SCH (08:07)
[2023-07-04] MEDS: MULTIVITAMIN TAB PO SCH (08:07)
[2023-07-04] MEDS: POTASSIUM CHLORIDE CRTAB 20 MEQ TABCR PO SCH (10:25)
[2023-07-04] MEDS: POT PHOSPHATE MONOBASIC W/ SOD TAB PO SCH (12:05)
--- OUTSIDE RECORDS SUMMARY | 2023-07-04 12:11 | External Medical Summary | Summary of Care ---
Author Name Unknown Organization [facility] Address [address] [facility] [address] Phone [phone] Care Team Providers Care Mechanic General Operational Test Name Role Phone Michelle Borrego Primary Care Provider [phone] Reason for Visit * Reason Comments eRx-Medication Refill Encounter Details Date Type Department Care Team (Late st Contact Info) Description 07/01/2023 Refill Gastroenterology, [facility] [address] [place] [address] Anatoliy Meza CRNP [address] [place] [address] Allergies Active Allergy Reactions Criticality Noted Date Comments Aspirin Other (Please comment) 02/12/2016 Reports having a bloody nose. documented as of this encounter (statuses as of 07/03/2023) Medications Medication Sig Dispensed Refills Start Date [...] 1 Tablet before bedtime. 0 04/20/2023 Active Thiamine HCl 100 MG Oral Tablet (vitamin B-1) Take 1 Tablet by mouth in the morning. In the morning.. 0 04/14/2023 Active Vancomycin HCl 125 MG Oral Capsule (Vancocin) 1 Capsule. 0 04/14/2023 Active Zolpidem Tartrate 5 MG Oral Tablet (Ambien)Indicati ons:History of alcohol abuse,Persistent insomnia Take 1 Tablet [...] the morning. 30 Tablet 5 06/24/2023 Active Pantoprazole Sodium 40 MG Oral Tablet Delayed Release (Protonix) Take 1 Tablet by mouth in the morning. 90 Tablet 1 07/03/2023 Active Pantoprazole Sodium 20 MG Oral Tablet Delayed Release (Protonix) Take 2 Tablets by mouth in the morning. 0 04/21/2023 4 Discontinued documented as of this encounter (statuses as of 07/03/2023) Active Problems Problem Noted Date Diagnosed Date [...] as of this encounter (statuses as of 07/03/2023) Resolved Problems Problem Noted Date Diagnosed Date [...] as of this encounter (statuses as of 07/03/2023) Immunizations Name Administration Dates Next Due COVID-19 mRNA, LNP-s, No Pre serve, 2-Dose Series (Moderna) 07/26/2020,06/13/2020 COVID-19, MRNA-LNP, 23-24, P F, 30 MCG/0.3 mL, 12 YRS AND ABOVE, IM [facility] 01/15/2023 COVID-19, mRNA, LNP-s, PF, B ooster, [...] Telephone Encounter - Anatoliy Meza CRNP - 07/03/2023 11:01 AM EDTSigned Prescriptions: Disp Refills Pantoprazole Sodium 40 MG Oral Tablet Bee*90 Tab*1 Sig: Take 1 Tablet by mouth in the morning. Authorizing Provider: ANATOLIY MEZA Refused Prescriptions: Disp Refills Pantoprazole Sodium 20 MG Oral Tablet Bee*90 Tab*3 Sig: TAKE ONE TABLET BY MOUTH EVERY DAY Refused By: SOPHIA AGUILAR Reason for Refusal: Dose needs clarification * Telephone Encounter - Sophia Aguilar [facility] - 07/03/2023 10:14 AM EDTPending Prescriptions: Disp Refills Pantoprazole Sodium 40 MG Oral Tablet Bee*90 Tab*1 Sig: Take 1 Tablet by mouth in the morning. Refused Prescriptions: Disp Refills Pantoprazole Sodium 20 MG Oral Tablet Bee*90 Tab*3 Sig: TAKE ONE TABLET BY MOUTH EVERY DAY Refused By: SOPHIA AGUILAR Reason for Refusal: Dose needs clarification * Telephone Encounter - Sophia Aguilar [facility] - 07/03/2023 10:12 AM EDT Appears patient was changed to 40mg daily at [facility] in March. Was previously prescribed 20mg.Please approve if appropriate. Pending Prescriptions: Disp Refills Pantoprazole Sodium 40 MG Oral Tablet Del*90 Tab*1 Sig: Take 1 Tablet by mouth in the morning. Thanks, Sophia Aguilar, PharmD Clinical Pharmacist Centralized Clinical Pharmacy Services ([facility]) (formerly [employer]) [phone] 07/03/2023, 10:13 AM * Telephone Encounter - Titus Baird - 07/01/2023 7:33 PM EDTPending Prescriptions: Disp Refills Pantoprazole Sodium 20 MG Oral Tablet Bee*90 Tab*3 Sig: TAKE ONE TABLET BY MOUTH EVERY DAY * Telephone Encounter - Titus Baird - 07/01/2023 7:32 PM EDT Did you pend patient's preferred pharmacy and medication before forwarding?yes Pharmacy: [facility], [address] [place] Pending Prescriptions: Disp Refills Pantoprazole Sodium 20 MG Oral Tablet Del*90 Tab*3 Sig: TAKE ONE TABLET BY MOUTH EVERY DAY Last Visit: 05/14/2023 (in office), Visit date not found (telemedicine) Next Visit: 09/08/2023 If no future appointments scheduled, and last appointment is greater than a year ago, please schedule patient for a follow-up appointment Last date the medication was ordered: 10/11/2022 Is this request for a controlled substance?No [...] Description 09/01/2023 8:30 AM EDT Imaging Radiology [address] [place] [address] 09/08/2023 3:00 PM EDT Office Visit Gastroenterology, [facility] [address] [place] [address] Anatoliy Meza CRNP [address] [place] [address] 02/03/2024 8:30 AM EST Office Visit Family Medicine [address] [place] [phone] Michelle [address] [place] [address] Scheduled Procedures Name Priority Associated Diagnoses Date/Ti [...] Depression Screening 12/20/2020 12/21/2019 Cologuard 08/23/2025 08/23/2022, 05, 08/17/2022 Colorectal Cancer Screening 08/23/2025 Diabetes Screening [...] the patient have Health Care Power of Heel Boom Operator? No Code Status History Code Status [...] the patient have Health Care Power of Heel Boom Operator? No Full Code 02/10/2016 5:50 PM 02/20/2016 12:09 AM Th is order reflects the patients wishes and were consensually agreed upon. Question Answer Comments Discussion of Advance Directives occurred with: Patient Does the patient have a Living Will? No Does the patient have Health Care Power of Heel Boom Operator? No Full Code 01/15/2016 3:25 PM 01/18/2016 6:24 PM Thi s order reflects the patients wishes and were consensually agreed upon. Question Answer Comments Discussion of Advance Directives occurred with: Patient Does the patient have a Living Will? No Does the patient have Health Care Power of Heel Boom Operator? No Care Teams Mechanic General Operational Test Relationship Specialty Start Date End Date Michelle Borrego DO [address] [place] [address] [place] [address] PCP - General Internal Medicine 06/07/16 documented as of this encounter
--- OUTSIDE RECORDS SUMMARY | 2023-07-04 12:11 | External Medical Summary | Summary of Care ---
Author Name Unknown Organization [facility] Address [address] [facility] [address] Phone [phone] Care Team Providers Care Nautical Instrument Mechanic Name Role Phone Michelle Borrego Primary Care Provider [phone] Reason for Visit * Reason Comments eRx-Medication Refill Encounter Details Date Type Department Care Team (Late st Contact Info) Description 07/01/2023 Refill Gastroenterology, [facility] [address] [place] [address] Anatoliy Meza CRNP [address] [place] [address] Allergies Active Allergy Reactions Criticality Noted Date [...] MCG/0.3 mL, 12 YRS AND ABOVE, IM [facility] 01/15/2023 COVID-19, mRNA, LNP-s, PF, B ooster, [...] clarification * Telephone Encounter - Sophia Aguilar [facility] - 07/03/2023 10:14 AM EDTPending Prescriptions: Disp Refills Pantoprazole Sodium 40 MG Oral Tablet Bee*90 Tab*1 Sig: Take 1 Tablet by mouth in the morning. Refused Prescriptions: Disp Refills Pantoprazole Sodium 20 MG Oral Tablet Bee*90 Tab*3 Sig: TAKE ONE TABLET BY MOUTH EVERY DAY Refused By: SOPHIA AGUILAR Reason for Refusal: Dose needs clarification * Telephone Encounter - Sophia Aguilar [facility] - 07/03/2023 10:12 AM EDT Appears patient was changed to 40mg daily at [facility] in March. Was previously prescribed 20mg.Please approve if appropriate. Pending Prescriptions: Disp Refills Pantoprazole Sodium 40 MG Oral Tablet Del*90 Tab*1 Sig: Take 1 Tablet by mouth in the morning. Thanks, Sophia Aguilar, PharmD Clinical Pharmacist Central[facility] Clinical Pharm[facility] Services ([facility]) (formerly [employer]) [phone] 07/03/2023, 10:13 AM * Telephone Encounter - Titus Baird - 07/01/2023 7:33 PM EDTPending Prescriptions: Disp Refills Pantoprazole Sodium 20 MG Oral Tablet Bee*90 Tab*3 Sig: TAKE ONE TABLET BY MOUTH EVERY DAY * Telephone Encounter - Titus Baird - 07/01/2023 7:32 PM EDT Did you pend patient's preferred pharmacy and medication before forwarding?yes Pharmacy: [facility], [address] [place] Pending Prescriptions: Disp Refills [...] Description 09/01/2023 8:30 AM EDT Imaging Radiology [address] [place] [address] 09/08/2023 3:00 PM EDT Office Visit Gastroenterology, [facility] [address] [place] [address] Anatoliy Meza CRNP [address] [place] [address] 02/03/2024 8:30 AM EST Office Visit Family Medicine [address] [place] [phone] Michelle Borrego[address] [place] [address] Scheduled Procedures Name Priority Associated Diagnoses Date/Ti [...] the patient have Health Care Power of University Partnership Rep? No Code Status History Code Status Date [...] the patient have Health Care Power of University Partnership Rep? No Full Code 02/10/2016 5:50 PM 02/20/2016 12:09 AM Th is order reflects the patients wishes and were consensually agreed upon. Question Answer Comments Discussion of Advance Directives occurred with: Patient Does the patient have a Living Will? No Does the patient have Health Care Power of University Partnership Rep? No Full Code 01/15/2016 3:25 PM 01/18/2016 6:24 PM Thi s order reflects the patients wishes and were consensually agreed upon. Question Answer Comments Discussion of Advance Directives occurred with: Patient Does the patient have a Living Will? No Does the patient have Health Care Power of University Partnership Rep? No Care Teams Nautical Instrument Mechanic Relationship Specialty Start Date End Date Michlele Borrego DO [address] [place] [address] [place] [address] PCP - General Internal Medicine 06/07/16 documented as of this encounter
[2023-07-04 12:13] LABS: Appearance Urine Clear (Clear); Bilirubin Urine Negative (Negative); Blood Urine Trace (Negative); Color Urine Yellow; Glucose Urine UA Negative (Negative); Ketones Urine Negative (Negative); Leukocyte Esterase Urine Negative (Negative); Nitrite Urine Negative (Negative); Protein Urine Negative (Negative); Specific Gravity Urine 1.003 (1.000-1.030); Urobilinogen Urine Negative (Negative); pH Urine 7.5 (4.5-7.5)
[2023-07-04 12:48] LABS: Amphetamines+Metham, Urine Neg (Neg); Barbiturates, Urine Neg (Neg); Benzodiazepine, Urine Pos (Neg); Cocaine, Urine Neg (Neg); MDMA (Ecstacy), Urine Neg (Neg); Marijuana, Urine Neg (Neg); Methadone, Urine Neg (Neg); Opiate, Urine Neg (Neg); Phencyclidine, Urine Neg (Neg)
[2023-07-04 13:08] LABS: Bacteria Urine Negative (Negative); Epithelial Cell Urine 0-5 /lpf (0-5); RBC Urine 0-4 /hpf (0-4); WBC Urine 0-5 /hpf (0-5)
--- NOTE | 2023-07-04 13:56 | Hospitalist Progress Note ---
Date of Service July 04, 2023 Assessment & Plan (1) Alcohol withdrawal: (2) Alcohol abuse: (3) Hypomagnesemia: (4) Transaminitis: (5) Hypokalemia: (6) Alcoholic cirrhosis of liver: Plan 47 year male with h/o alcohol abuse with recent admission for alcohol withdrawal presenting with alcohol withdrawal symptoms Alcohol abuse with alcohol withdrawal- uncomplicated alcohol withdrawal in the past. Reports stopped drinking 2 days ago [place] however Alcohol level still elevated at presentation. C/w librium taper, thiamine, folate, MV, ivf. DC ivf once po intake improves. Hypomagnesemia- Monitor and replete Hypokalemia- repleted, recheck in am Elevated LFTs- due to alcohol abuse. LFT improving. F/u in am Thrombocytopenia due to alcoholic cirrhosis- Stable, 60 Alcoholic cirrhosis of liver with h/o esophageal varices- looks compensated. Continue lasix, aldactone, nadolol DVT ppx- lovenox sc Dispo- Admit to [facility] on tele Time spent- approx 80 mins Admission and Anticipated Discharge Date Admission Date: July 03, 2023 Subjective Patient was seen and examined at bedside. Patient was lying in bed, on room air, NAD, resting comfortably. Patient denies any headache or dizziness or chest pain or febrile illness. Patient does report being shaky, having multiple loose stools while in hospital, being weak and tired. Will send stool studies. Physical Exam Physical Exam: General: Lying comfortably in bed, not in acute distress, on room air HEENT: EOMI, HARLEY, MMM Chest: Clear breath sounds bilaterally, no wheezes or crackles CVS: Regular rate and rhythm, normal heart sounds, no murmur Abdomen: Soft, non tender, not distended, normal bowel sounds Neuro: Awake, alert, oriented, conversing well, non focal Extremities: Hand tremors+. no edema Results & Data Results & Data Vital Signs (Past 12 Hours) Vital Signs Pulse Pulse Resp BP BP Pulse Ox O2 Del Method 07/04/23 10:59 65 18 116/64 96 Room Air 07/04/23 07:26 50 L 07/04/23 07:16 52 L 18 119/74 94 07/04/23 05:00 53 L 16 131/78 96 Room Air 07/04/23 04:00 48 L 14 112/72 07/04/23 03:00 65 16 126/64 98 Room Air 07/04/23 02:00 51 L 16 94 Room Air (1) Alcohol withdrawal Complication of substance-induced condition: uncomplicated Qualified Code(s): F10.930 - Alcohol use, unspecified with withdrawal, uncomplicated (6) Alcoholic cirrhosis of liver Ascites presence: unspecified Qualified Code(s): K70.30 - Alcoholic cirrhosis of liver without ascites
[2023-07-04 14:52] LABS: Adenovirus F 40/41 PCR Not Detected (NotDetected); Astrovirus PCR Not Detected (NotDetected); Campylobacter PCR Not Detected (NotDetected); Cryptosporidium PCR Not Detected (NotDetected); Cyclospora cayetanensis PCR Not Detected (NotDetected); Entamoeba histolytica PCR Not Detected (NotDetected); Enteroaggregative E.coli(EAEC) Not Detected (NotDetected); Enteropathogenic E.coli (EPEC) Not Detected (NotDetected); Enterotoxigenic E.coli (ETEC) Not Detected (NotDetected); Giardia lamblia PCR Not Detected (NotDetected); Norovirus GI/GII PCR Not Detected (NotDetected); Plesiomonas shigelloides PCR Not Detected (NotDetected); Rotavirus A PCR Not Detected (NotDetected); Salmonella PCR Not Detected (NotDetected); Sapovirus PCR Not Detected (NotDetected); Shiga-like Toxin E.coli (STEC) Not Detected (NotDetected); Shigella/Enteroinvasive E.coli Not Detected (NotDetected); Vibrio cholerae PCR Not Detected (NotDetected); Vibrio species PCR Not Detected (NotDetected); Yersinia enterocolitica PCR Not Detected (NotDetected)
[2023-07-04] MEDS: PROMETHAZINE HCL 12.5 MG in SODIUM CHLORIDE 0.9% 50 ML IV PRN (16:23)
[2023-07-04] MEDS: PSYLLIUM or GUAR GUM FIBER 4GM PACKET PO SCH (16:35)
[2023-07-04] MEDS: LOPERAMIDE HCL 2 MG CAP PO STA (16:36)
[2023-07-04] MEDS: LORazepam 2 MG in SYRINGE 1 ML IV PRN (18:25)
[2023-07-04] MEDS: THIAMINE HCL 100 MG TAB PO SCH (20:10)
[2023-07-04] MEDS: ZOLPIDEM TARTRATE 5 MG TAB PO PRN (22:51)
[2023-07-04] MEDS: chlordiazePOXIDE HCl 25 MG CAP PO SCH (23:06)
[2023-07-05 05:36] LABS: Hematocrit (blood only) 39.5 % (42.0-52.0); Hemoglobin 13.9 g/dl (14.0-18.0); Mean Corpuscular Hemoglobin 34.3 pg (25.0-34.0); Mean Corpuscular Hgb Conc 35.2 g/dL (32.0-36.0); Mean Corpuscular Volume 97.5 fL (80.0-100.0); Mean Platelet Volume 10.5 fL (9.4-12.4); Platelet Count 58 K/uL (130-400); RDW Coefficient of Variation 12.5 % (11.5-14.5); RDW Standard Deviation 44.9 fL (36.4-46.3); Red Blood Count 4.05 M/uL (4.70-6.10); White Blood Count 3.25 K/ul (4.8-10.8)
[2023-07-05 05:56] LABS: Albumin Globulin Ratio 0.9 (0.9-2); Albumin Level 3.3 gm/dl (3.4-5.0); BUN Creatinine Ratio 10.2 (10-20); Bilirubin,Total 1.3 mg/dl (0.2-1.0); Calcium 7.9 mg/dl (8.6-10.3); Creatinine Clr Calc Pharmacy 98.2 ml/min; Est GFR (African American) 116.9 ml/min; Est GFR (Non-African American) 100.9 ml/min; Globulin 3.5 gm/dl (2.5-4.0); Magnesium 1.4 mg/dl (1.7-2.4); Phosphorus 3.3 mg/dl (2.5-4.9); Potassium 3.8 mmol/L (3.5-5.1); Total Protein 6.8 gm/dl (6.0-8.3)
--- NOTE | 2023-07-05 07:03 | Electrocardiogram Report ---
Test Reason : Blood Pressure : / mmHG Vent. Rate : 100 BPM Atrial Rate : 100 BPM P-R Int : 146 ms QRS Dur : 092 ms QT Int : 360 ms P-R-T Axes : 076 089 046 degrees QTc Int : 465 ms Normal sinus rhythm Nonspecific ST abnormality Abnormal ECG When compared with ECG of 01-JUN-2023 00:54, Vent. rate has increased BY 34 BPM QT has lengthened Confirmed by Dilip Jones ([id number]) on 07/05/2023 7:03:05 AM Referred By: Confirmed By:Dilip Jones
[2023-07-05 15:18] LABS: 7-Aminoclonaz, Confirm NEGATIVE ng/mL (<25); Hydro-Alp Ur, GC/MS NEGATIVE ng/mL (<25); Hydroxyethylflurazepam, Conf NEGATIVE ng/mL (<50); Hydroxymidazolam Ur, GC/MS NEGATIVE ng/mL (<50); Hydroxytriazolam NEGATIVE ng/mL (<50); Lorazepam, Ur GC/MS 176 ng/mL (<50); Nordiazepam, Confirm NEGATIVE ng/mL (<50); Oxazepam Ur, GC/MS NEGATIVE ng/mL (<50); Temazepam, Confirm 56 ng/mL (<50)
--- NOTE | 2023-07-05 17:45 | Hospitalist Progress Note ---
Date of Service July 05, 2023 Assessment & Plan (1) Alcohol withdrawal: (2) Alcohol abuse: (3) Hypomagnesemia: (4) Transaminitis: (5) Hypokalemia: (6) Alcoholic cirrhosis of liver: Plan 47 year male with h/o alcohol abuse with recent admission for alcohol withdrawal presenting with alcohol withdrawal symptoms Alcohol abuse with alcohol withdrawal- uncomplicated alcohol withdrawal in the past. Reports stopped drinking 2 days ago [employer] however Alcohol level still elevated at presentation. C/w librium taper, thiamine, folate, MV, ivf. DC ivf once po intake improves. Continues to have tremors and diarrhea Stool test has been negative for any infection and C. difficile toxin Will continue with the protocol He will not go to inpatient rehab Will get PT and OT evaluation Hypomagnesemia- Monitor and replete Magnesium remains low at 1.4 Has been supplemented will recheck Hypokalemia- repleted, recheck in am Potassium level has been normalized Elevated LFTs- due to alcohol abuse. LFT improving. LFTs are improving Thrombocytopenia due to alcoholic cirrhosis- Stable, 60 Platelet count remains low at 58 Alcoholic cirrhosis of liver with h/o esophageal varices- looks compensated. Continue lasix, aldactone, nadolol Will continue current medications Strongly advised to quit drinking DVT ppx- lovenox sc Dispo- Admit to [facility] on tele Time spent- approx 80 mins Admission and Anticipated Discharge Date Admission Date: July 03, 2023 Subjective 07/05/2023 The patient was seen and examined in medical telemetry unit He has been complaining of tremors and unsteadiness and gait Denies any palpitation and/or shortness of breath Has nausea and ongoing diarrhea No fever and or chills Review of Systems Review of Systems: All systems reviewed and are unremarkable except as noted below Physical Exam Physical Exam: Sitting at the edge of the bed without any acute distress Constitutional: well developed, well nourished and + ill appearing Eyes: PERRL, conjunctivae normal, anicteric sclerae ENMT: external ear and nose normal, oropharynx normal Neck: trachea midline, no thyromegaly Respiratory: no respiratory distress Auscultation: lungs clear to auscultation bilaterally Cardiovascular: Rate/Rhythm: regular rate and regular rhythm; not tachycardic Heart Sounds: normal S1 and normal S2; no murmur Extremities: no edema Gastrointestinal (Abdomen): Inspection/Auscultation: normal bowel sounds; abdomen not distended Percussion/Palpation: abdomen soft; abdomen nontender Musculoskeletal: No acute arthritis involving any of the joints Neurologic: normal touch/pain/proprioception and moves all extremities; not confused Tremors involving the outstretched hands Psychiatric: A+Ox3, euthymic affect Results & Data Results & Data Vital Signs (Past 12 Hours) Vital Signs Temp Pulse Pulse Resp BP Pulse Ox O2 Del Method 07/05/23 17:01 37.2 C 60 132/78 96 Room Air 07/05/23 16:32 75 07/05/23 12:08 36.4 C L 56 L 18 132/86 98 Room Air 07/05/23 10:51 58 L 07/05/23 07:35 37 C 55 L 18 125/79 98 Room Air Laboratory Results Short CBC 07/05/23 Range/Units 05:18 WBC 3.25 L (4.8-10.8) K/ul Hgb 13.9 L (14.0-18.0) g/dl Hct 39.5 L (42.0-52.0) % Plt Count 58 L (130-400) K/uL BMP 07/05/23 05:18 Sodium 137 Potassium 3.8 D Chloride 106 Carbon Dioxide 23 BUN 9 Creatinine 0.88 Glucose 118 H Calcium 7.9 L Liver Function 07/05/23 Range/Units 05:18 Total Bilirubin 1.3 H (0.2-1.0) mg/dl AST 93 H (13-39) U/L ALT 61 H (7-52) U/L Alkaline Phosphatase 63 (34-104) U/L Albumin 3.3 L (3.4-5.0) gm/dl Medications Administered Current Inpatient Medications Buspirone HCl (Buspirone 5 Mg Tab) 5 mg PO [facility] Stop: 08/02/23 20:59 Last Admin: 07/05/23 09:03 Dose: 5 mg Chlordiazepoxide HCl (Chlordiazepoxide Hcl 25 Mg Cap) 25 mg PO Q8H [facility] Stop: 07/06/23 16:01 Chlordiazepoxide HCl (Chlordiazepoxide Hcl 10 Mg Cap) 10 mg PO Q12H [facility] Stop: 07/07/23 18:01 Citalopram Hydrobromide (Citalopram 20 Mg Tab) [facility] Stop: 08/03/23 08:59 Last Admin: 07/05/23 09:01 Dose: 10 mg Cyanocobalamin (Cyanocobalamin (B-12) 500 Mcg Tablet) 250 mcg [facility] Stop: 08/03/23 08:59 Last Admin: 07/05/23 09:01 Dose: 250 mcg Enoxaparin Sodium (Enoxaparin Inj 40 Mg/0.4 Ml Syr) 40 mg SQ HS [facility] Stop: 08/02/23 21:44 Last Admin: 07/04/23 20:14 Dose: 40 mg Folic Acid (Folic Acid 1 Mg Tab) 1 mg PO [facility] Stop: 08/02/23 15:29 Last Admin: 07/05/23 09:01 Dose: 1 mg Furosemide (Furosemide 20 Mg Tab) 20 [facility] Stop: 08/03/23 08:59 Last Admin: 07/05/23 09:01 Dose: 20 mg Potassium Chloride/Dextrose/Sod Cl (D5w And 1/2nss + 20meq Kcl) 20 meq in 1,000 mls @ 100 mls/hr IV .Q10H [facility] Stop: 08/02/23 20:52 Last Admin: 07/05/23 13:30 Dose: 100 mls/hr Promethazine HCl 12.5 mg/ (Sodium Chloride) 50.5 mls @ 202 mls/hr IV Q6H PRN PRN Reason: Nausea And Vomiting Stop: 08/02/23 23:40 Last Infusion: 07/05/23 10:29 Dose: Infused Lorazepam 1 mg/ Syringe 1 mls @ 2 mls/min IV UD PRN; Protocol PRN Reason: EtOH Withdrawal AWSS Score 6,7 Stop: 08/03/23 00:50 Last Admin: 07/05/23 06:48 Dose: 2 mls/min Lorazepam 2 mg/ Syringe 2 mls @ 2 mls/min IV UD PRN; Protocol PRN Reason: EtOH Withdrawal AWSS Score 8,9 Stop: 08/03/23 00:50 Last Admin: 07/04/23 18:25 Dose: 2 mls/min Lorazepam 3 mg/ Syringe 3 mls @ 2 mls/min IV ONCE PRN; Protocol PRN Reason: EtOH Withdrawal AWSS Score 10+ Lidocaine (Lidocaine 5% 1 Patch) 1 patch TD DAILY@2100 [facility] Stop: 08/02/23 20:59 Last Admin: 07/04/23 18:26 Dose: 1 patch Miscellaneous (Remove Lidoderm Patch) 1 each N/A DAILY@0900 [facility] Stop: 08/03/23 08:59 Last Admin: 07/05/23 08:56 Dose: Not Given Multivitamins (Multivitamin Tab) 1 tab PO QAM [facility] Stop: 08/03/23 08:59 Last Admin: 07/05/23 09:02 Dose: 1 tab Nadolol (Nadolol 40 Mg Tab) 20 mg PO QPM [facility] Stop: 08/02/23 20:59 Last Admin: 07/04/23 20:11 Dose: 20 mg Ondansetron HCl (Ondansetron Inj 2 Mg/Ml 2 Ml Vial) 4 mg IV Q6H PRN PRN Reason: Nausea And Vomiting Stop: 08/02/23 20:52 Last Admin: 07/05/23 13:42 Dose: 4 mg Pantoprazole Sodium (Pantoprazole 40 Mg Tab) 40 mg PO QAM [facility] Stop: 08/03/23 08:59 Last Admin: 07/05/23 09:02 Dose: 40 mg Potassium Chloride (Potassium Chloride 10 Meq Tabcr) 10 meq PO QAM [facility] Stop: 08/03/23 08:59 Last Admin: 07/05/23 09:02 Dose: 10 meq Psyllium Hydrophilic Mucilloid (Psyllium Or Guar Gum Fiber 4gm Packet) 4 gm PO QAM [facility] Stop: 08/03/23 15:44 Last Admin: 07/05/23 09:03 Dose: 4 gm Spironolactone (Spironolactone 25 Mg Tab) 25 mg PO QAM [facility] Stop: 08/03/23 08:59 Last Admin: 07/05/23 09:02 Dose: 25 mg Thiamine HCl (Thiamine Hcl 100 Mg Tab) 100 mg PO BID [facility] Stop: 08/03/23 20:59 Last Admin: 07/05/23 09:02 Dose: 100 mg Ursodiol (Ursodiol 300 Mg Cap) 300 mg PO BID [facility] Stop: 08/02/23 20:59 Last Admin: 07/05/23 09:03 Dose: 300 mg Zolpidem Tartrate (Zolpidem Tartrate 5 Mg Tab) 5 mg PO HS PRN PRN Reason: Sleep Stop: 08/02/23 23:41 Last Admin: 07/04/23 22:51 Dose: 5 mg (1) Alcohol withdrawal Complication of substance-induced condition: uncomplicated Qualified Code(s): F10.930 - Alcohol use, unspecified with withdrawal, uncomplicated (6) Alcoholic cirrhosis of liver Ascites presence: unspecified Qualified Code(s): K70.30 - Alcoholic cirrhosis of liver without ascites
[2023-07-05] MEDS: chlordiazePOXIDE HCl 25 MG CAP PO SCH (23:58)
[2023-07-06] MEDS: LOPERAMIDE HCL 2 MG CAP PO PRN (02:14)
[2023-07-06 05:32] LABS: Basophils # (auto) 0.04 K/uL (0.00-0.20); Basophils % (auto) 1.4 %; Eosinophils # (auto) 0.17 K/uL (0.00-0.50); Eosinophils % (auto) 5.9 %; Hematocrit (blood only) 39.1 % (42.0-52.0); Hemoglobin 13.5 g/dl (14.0-18.0); Immature Granulocytes # (auto) 0.01 K/uL (0.01-0.20); Immature Granulocytes % (auto) 0.3 %; Lymphocytes # (auto) 0.65 K/uL (1.20-3.40); Lymphocytes % (auto) 22.4 %; Mean Corpuscular Hemoglobin 33.9 pg (25.0-34.0); Mean Corpuscular Hgb Conc 34.5 g/dL (32.0-36.0); Mean Corpuscular Volume 98.2 fL (80.0-100.0); Monocytes % (auto) 10.3 %; Neutrophils # (auto) 1.73 K/uL (1.40-6.50); Neutrophils % (auto) 59.7 %; Platelet Count 58 K/uL (130-400); RDW Coefficient of Variation 12.6 % (11.5-14.5); RDW Standard Deviation 45.7 fL (36.4-46.3); Red Blood Count 3.98 M/uL (4.70-6.10)
--- NOTE | 2023-07-06 06:23 | Communication Note ---
Date of Service: July 06, 2023 Chest pain complaint this a.m. as per RN. SBP 130s. EKG as per them interpretation rate 65, NSR, normal axis, inferior infarct, patient T wave inversions septal leads AP Chest pain Differentials include ACS, PE Check troponin Nitro trial PE study if chest pain does not respond to nitroglycerin.
[2023-07-06] MEDS: NITROGLYCERIN SL 0.4 MG/TAB TAB SL STA (06:32)
[2023-07-06] MEDS: NITROGLYCERIN SL 0.4 MG/TAB TAB ONE (06:32)
[2023-07-06 06:39] LABS: BUN Creatinine Ratio 7.8 (10-20); Calcium 8.4 mg/dl (8.6-10.3); Creatinine Clr Calc Pharmacy 122.8 ml/min; Est GFR (African American) 123.5 ml/min; Est GFR (Non-African American) 106.6 ml/min; Magnesium 1.2 mg/dl (1.7-2.4); Phosphorus 4.4 mg/dl (2.5-4.9); Potassium 3.5 mmol/L (3.5-5.1)
[2023-07-06 07:32] LABS: Partial Thromboplastin Time 29 Seconds (21-31)
[2023-07-06] MEDS: MAGNESIUM SULFATE / D5W 1 GM/100 ML BAG IV SCH (10:03)
--- NOTE | 2023-07-06 15:17 | Hospitalist Progress Note ---
Date of Service July 06, 2023 Assessment & Plan (1) Alcohol withdrawal: (2) Alcohol abuse: (3) Hypomagnesemia: (4) Transaminitis: (5) Hypokalemia: (6) Alcoholic cirrhosis of liver: Plan 47 year male with h/o alcohol abuse with recent admission for alcohol withdrawal presenting with alcohol withdrawal symptoms Alcohol abuse with alcohol withdrawal- uncomplicated alcohol withdrawal in the past. Reports stopped drinking 2 days ago [employer] however Alcohol level still elevated at presentation. C/w librium taper, thiamine, folate, MV, ivf. DC ivf once po intake improves. Continues to have tremors and diarrhea Stool test has been negative for any infection and C. difficile toxin Will continue with the protocol He will not go to inpatient rehab Will get PT and OT evaluation Clinically much better with minimal tremors involving the outstretched hands Minimal problem with gait but will get PT and OT evaluation Chest pain Happened to be last night with palpitation and shortness of breath Cardiac troponin, EKG and echo are unremarkable for any ACS Echo of the heart showed EF of 60 to 65%, nondilated cardiac chambers and no significant valvular pathology He was reassured Hypomagnesemia- Monitor and replete Magnesium remains low at 1.4 Has been supplemented will recheck Magnesium remains low and will be replaced will monitor Hypokalemia- repleted, recheck in am Potassium level has been normalized Elevated LFTs- due to alcohol abuse. LFT improving. LFTs are improving Thrombocytopenia due to alcoholic cirrhosis- Stable, 60 Platelet count remains low at 58 Alcoholic cirrhosis of liver with h/o esophageal varices- looks compensated. Continue lasix, aldactone, nadolol Will continue current medications Strongly advised to quit drinking DVT ppx- lovenox sc Dispo- Admit to [facility] on tele Admission and Anticipated Discharge Date Admission Date: July 03, 2023 Subjective 07/05/2023 The patient was seen and examined in medical telemetry unit He has been complaining of tremors and unsteadiness and gait Denies any palpitation and/or shortness of breath Has nausea and ongoing diarrhea No fever and or chills 07/06/2023 The patient was seen and examined in medical telemetry unit He has had chest pain with palpitation last night EKG, troponin and echo cardona have been unremarkable Tremors are improved No palpitation and no confusion Review of Systems Review of Systems: All systems reviewed and are unremarkable except as noted below Physical Exam Physical Exam: Sitting at the edge of the bed without any acute distress Constitutional: well developed, well nourished and + ill appearing Eyes: PERRL, conjunctivae normal, anicteric sclerae ENMT: external ear and nose normal, oropharynx normal Neck: trachea midline, no thyromegaly Respiratory: no respiratory distress Auscultation: lungs clear to auscultation bilaterally Cardiovascular: Rate/Rhythm: regular rate and regular rhythm; not tachycardic Heart Sounds: normal S1 and normal S2; no murmur Extremities: no edema Gastrointestinal (Abdomen): Inspection/Auscultation: normal bowel sounds; abdomen not distended Percussion/Palpation: abdomen soft; abdomen nontender Musculoskeletal: No acute arthritis involving any of the joint Neurologic: normal touch/pain/proprioception and moves all extremities; not confused Psychiatric: A+Ox3, euthymic affect Results & Data Results & Data Vital Signs (Past 12 Hours) Vital Signs Temp Pulse Pulse Resp BP Pulse Ox O2 Del Method 07/06/23 11:48 36.6 C 66 16 122/68 97 Room Air 07/06/23 08:34 37.1 C 71 16 124/77 97 Room Air 07/06/23 07:33 73 07/06/23 06:54 64 14 116/73 92 Room Air 07/06/23 05:51 37.1 C 64 22 131/80 96 Room Air Laboratory Results Short CBC 07/06/23 Range/Units 04:38 WBC 2.90 L (4.8-10.8) K/ul Hgb 13.5 L (14.0-18.0) g/dl Hct 39.1 L (42.0-52.0) % Plt Count 58 L (130-400) K/uL BMP 07/06/23 04:38 Sodium 137 Potassium 3.5 Chloride 105 Carbon Dioxide 24 BUN 6 Creatinine 0.77 Glucose 140 H Calcium 8.4 L Medications Administered Current Inpatient Medications Buspirone HCl (Buspirone 5 Mg Tab) 5 mg PO [facility] Stop: 08/02/23 20:59 Last Admin: 07/06/23 09:21 Dose: 5 mg Chlordiazepoxide HCl (Chlordiazepoxide Hcl 25 Mg Cap) 25 mg PO Q8H [facility] Stop: 07/06/23 16:01 Last Admin: 07/06/23 09:19 Dose: 25 mg Chlordiazepoxide HCl (Chlordiazepoxide Hcl 10 Mg Cap) 10 mg PO Q12H [facility] Stop: 07/07/23 18:01 Citalopram Hydrobromide (Citalopram 20 Mg Tab) 10 mg PO [facility] Stop: 08/03/23 08:59 Last Admin: 07/06/23 09:20 Dose: 10 mg Cyanocobalamin (Cyanocobalamin (B-12) 500 Mcg Tablet) 250 mcg PO [facility] Stop: 08/03/23 08:59 Last Admin: 07/06/23 09:20 Dose: 250 mcg Enoxaparin Sodium (Enoxaparin Inj 40 Mg/0.4 Ml Syr) 40 mg SQ HS [facility] Stop: 08/02/23 21:44 Last Admin: 07/05/23 20:48 Dose: 40 mg Folic Acid (Folic Acid 1 Mg Tab) 1 mg PO [facility] Stop: 08/02/23 15:29 Last Admin: 07/06/23 09:21 Dose: 1 mg Furosemide (Furosemide 20 Mg Tab) 20 mg PO [facility] Stop: 08/03/23 08:59 Last Admin: 07/06/23 09:21 Dose: 20 mg Potassium Chloride/Dextrose/Sod Cl (D5w And 1/2nss + 20meq Kcl) 20 meq in 1,000 mls @ 100 mls/hr IV .Q10H [facility] Stop: 08/02/23 20:52 Last Admin: 07/06/23 10:03 Dose: 100 mls/hr Promethazine HCl 12.5 mg/ (Sodium Chloride) 50.5 mls @ 202 mls/hr IV Q6H PRN PRN Reason: Nausea And Vomiting Stop: 08/02/23 23:40 Last Infusion: 07/05/23 22:22 Dose: Infused Lorazepam 1 mg/ Syringe 1 mls @ 2 mls/min IV UD PRN; Protocol PRN Reason: EtOH Withdrawal AWSS Score 6,7 Stop: 08/03/23 00:50 Last Admin: 07/06/23 06:11 Dose: 2 mls/min Lorazepam 2 mg/ Syringe 2 mls @ 2 mls/min IV UD PRN; Protocol PRN Reason: EtOH Withdrawal AWSS Score 8,9 Stop: 08/03/23 00:50 Last Admin: 07/04/23 18:25 Dose: 2 mls/min Lorazepam 3 mg/ Syringe 3 mls @ 2 mls/min IV ONCE PRN; Protocol PRN Reason: EtOH Withdrawal AWSS Score 10+ Lidocaine (Lidocaine 5% 1 Patch) 1 patch TD DAILY@2100 [facility] Stop: 08/02/23 20:59 Last Admin: 07/05/23 20:50 Dose: Not Given Loperamide HCl (Loperamide Hcl 2 Mg Cap) 2 mg PO UD PRN PRN Reason: Diarrhea Stop: 08/05/23 00:17 Last Admin: 07/06/23 04:08 Dose: 2 mg Miscellaneous (Remove Lidoderm Patch) 1 each N/A DAILY@0900 [facility] Stop: 08/03/23 08:59 Last Admin: 07/06/23 09:23 Dose: Not Given Multivitamins (Multivitamin Tab) 1 tab PO QAM [facility] Stop: 08/03/23 08:59 Last Admin: 07/06/23 09:21 Dose: 1 tab Nadolol (Nadolol 40 Mg Tab) 20 mg PO QPM [facility] Stop: 08/02/23 20:59 Last Admin: 07/05/23 20:50 Dose: 20 mg Ondansetron HCl (Ondansetron Inj 2 Mg/Ml 2 Ml Vial) 4 mg IV Q6H PRN PRN Reason: Nausea And Vomiting Stop: 08/02/23 20:52 Last Admin: 07/05/23 23:58 Dose: 4 mg Pantoprazole Sodium (Pantoprazole 40 Mg Tab) [facility] [place]: 08/03/23 08:59 Last Admin: 07/06/23 09:21 Dose: 40 mg Potassium Chloride (Potassium Chloride 10 Meq Tabcr) 10 meq PO QAM [facility] Stop: 08/03/23 08:59 Last Admin: 07/06/23 09:19 Dose: 10 meq Psyllium Hydrophilic Mucilloid (Psyllium Or Guar Gum Fiber 4gm Packet) 4 gm PO QAM [facility] Stop: 08/03/23 15:44 Last Admin: 07/06/23 09:19 Dose: 4 gm Spironolactone (Spironolactone 25 Mg Tab) 25 mg PO QAM [facility] Stop: 08/03/23 08:59 Last Admin: 04/07/24 09:21 Dose: 25 mg Thiamine HCl (Thiamine Hcl 100 Mg Tab) 100 mg PO BID [facility] Stop: 08/03/23 20:59 Last Admin: 07/06/23 09:21 Dose: 100 mg Ursodiol (Ursodiol 300 Mg Cap) 300 mg PO BID [facility] Stop: 08/02/23 20:59 Last Admin: 07/06/23 09:22 Dose: 300 mg Zolpidem Tartrate (Zolpidem Tartrate 5 Mg Tab) 5 mg PO HS PRN PRN Reason: Sleep Stop: 08/02/23 23:41 Last Admin: 07/05/23 20:55 Dose: 5 mg (1) Alcohol withdrawal Complication of substance-induced condition: uncomplicated Qualified Code(s): F10.930 - Alcohol use, unspecified with withdrawal, uncomplicated (6) Alcoholic cirrhosis of liver Ascites presence: unspecified Qualified Code(s): K70.30 - Alcoholic cirrhosis of liver without ascites
[2023-07-07 05:19] LABS: Albumin Globulin Ratio 0.9 (0.9-2); Albumin Level 3.2 gm/dl (3.4-5.0); BUN Creatinine Ratio 5.4 (10-20); Bilirubin,Total 0.8 mg/dl (0.2-1.0); Creatinine Clr Calc Pharmacy 85.2 ml/min; Est GFR (African American) 89.9 ml/min; Est GFR (Non-African American) 77.6 ml/min; Globulin 3.4 gm/dl (2.5-4.0); Magnesium 1.6 mg/dl (1.7-2.4); Phosphorus 3.1 mg/dl (2.5-4.9); Total Protein 6.6 gm/dl (6.0-8.3)
--- NOTE | 2023-07-07 06:01 | Electrocardiogram Report ---
Test Reason : Blood Pressure : / mmHG Vent. Rate : 065 BPM Atrial Rate : 065 BPM P-R Int : 124 ms QRS Dur : 094 ms QT Int : 438 ms P-R-T Axes : 040 070 039 degrees QTc Int : 455 ms Normal sinus rhythm Possible Inferior infarct When compared with ECG of 03-JUL-2023 14:12, Vent. rate has decreased BY 35 BPM Confirmed by Raghu Lindsay ([id number]) on 07/07/2023 6:01:25 AM Referred By: REFERRED SELF Confirmed By:Raghu Lindsay
--- NOTE | 2023-07-07 18:10 | Hospitalist Progress Note ---
Date of Service July 07, 2023 Assessment & Plan (1) Alcohol withdrawal: (2) Alcohol abuse: (3) Hypomagnesemia: (4) Transaminitis: (5) Hypokalemia: (6) Alcoholic cirrhosis of liver: Plan 47 year male with h/o alcohol abuse with recent admission for alcohol withdrawal presenting with alcohol withdrawal symptoms Alcohol abuse with alcohol withdrawal- uncomplicated alcohol withdrawal in the past. Reports stopped drinking 2 days ago [employer] however Alcohol level still elevated at presentation. C/w librium taper, thiamine, folate, MV, ivf. DC ivf once po intake improves. Continues to have tremors and diarrhea Stool test has been negative for any infection and C. difficile toxin Will continue with the protocol He will not go to inpatient rehab Will get PT and OT evaluation Clinically much better with minimal tremors involving the outstretched hands Minimal problem with gait but will get PT and OT evaluation Clinically much better and likely to be discharged in a day or 2 Chest pain Happened to be last night with palpitation and shortness of breath Cardiac troponin, EKG and echo are unremarkable for any ACS Echo of the heart showed EF of 60 to 65%, nondilated cardiac chambers and no significant valvular pathology He was reassured No more chest pain and her palpitation Hypomagnesemia- Monitor and replete Magnesium remains low at 1.4 Has been supplemented will recheck Magnesium remains low and will be replaced will monitor Magnesium level came back as 1.6 Will monitor electrolytes Hypokalemia- repleted, recheck in am Potassium level has been normalized Elevated LFTs- due to alcohol abuse. LFT improving. LFTs are improving Thrombocytopenia due to alcoholic cirrhosis- Stable, 60 Platelet count remains low at 58 Alcoholic cirrhosis of liver with h/o esophageal varices- looks compensated. Continue lasix, aldactone, nadolol Will continue current medications Strongly advised to quit drinking DVT ppx- lovenox sc Dispo- Admit to [facility] on tele Acute discharge in a day or 2 Admission and Anticipated Discharge Date Admission Date: July 03, 2023 Subjective 07/05/2023 The patient was seen and examined in medical telemetry unit He has been complaining of tremors and unsteadiness and gait Denies any palpitation and/or shortness of breath Has nausea and ongoing diarrhea No fever and or chills 07/06/2023 The patient was seen and examined in medical telemetry unit He has had chest pain with palpitation last night EKG, troponin and echo cardona have been unremarkable Tremors are improved No palpitation and no confusion 07/07/2023 The patient was seen and examined in medical telemetry unit He has been feeling much better Tremors are improved Denies any more significant pain and/or diarrhea Review of Systems Review of Systems: All systems reviewed and are unremarkable except as noted below Physical Exam Physical Exam: Sitting at the edge of the bed without any acute distress Constitutional: well developed, well nourished and + ill appearing Eyes: PERRL, conjunctivae normal, anicteric sclerae ENMT: external ear and nose normal, oropharynx normal Neck: trachea midline, no thyromegaly Respiratory: no respiratory distress Auscultation: lungs clear to auscultation bilaterally Cardiovascular: Rate/Rhythm: regular rate and regular rhythm; not tachycardic Heart Sounds: normal S1 and normal S2; no murmur Extremities: no edema Gastrointestinal (Abdomen): Inspection/Auscultation: normal bowel sounds; abdomen not distended Percussion/Palpation: abdomen soft; abdomen nontender Neurologic: normal touch/pain/proprioception and moves all extremities; not confused Psychiatric: A+Ox3, euthymic affect Results & Data Results & Data Vital Signs (Past 12 Hours) Vital Signs Temp Pulse Pulse Resp BP Pulse Ox O2 Del Method 07/07/23 15:35 58 L 07/07/23 15:27 37.2 C 59 L 16 116/65 95 Room Air 07/07/23 13:59 58 L 07/07/23 11:23 36.8 C 61 16 110/69 95 Room Air 07/07/23 08:00 Room Air 07/07/23 07:35 36.8 C 73 16 114/64 98 Room Air 07/07/23 07:00 60 Laboratory Results BMP 07/07/23 04:38 Sodium 138 Potassium 4.0 Chloride 106 Carbon Dioxide 28 BUN 6 Creatinine 1.11 D Glucose 138 H Calcium 8.0 L Liver Function 07/07/23 Range/Units 04:38 Total Bilirubin 0.8 D (0.2-1.0) mg/dl AST 94 H (13-39) U/L ALT 61 H (7-52) U/L Alkaline Phosphatase 51 (34-104) U/L Albumin 3.2 L (3.4-5.0) gm/dl Medications Administered Current Inpatient Medications Buspirone HCl (Buspirone 5 Mg Tab) 5 mg PO [facility] Stop: 08/02/23 20:59 Last Admin: 07/07/23 08:27 Dose: 5 mg Chlordiazepoxide HCl (Chlordiazepoxide Hcl 10 Mg Cap) 10 mg PO Q12H [facility] Stop: 07/07/23 18:01 Last Admin: 07/07/23 17:52 Dose: 10 mg Citalopram Hydrobromide ([facility] 20 Mg Tab) [facility] Stop: 08/03/23 08:59 Last Admin: 07/07/23 08:29 Dose: 10 mg Cyanocobalamin (Cyanocobalamin (B-12) 500 Mcg Tablet) [facility] Stop: 08/03/23 08:59 Last Admin: 07/07/23 08:29 Dose: 250 mcg Enoxaparin Sodium (Enoxaparin Inj 40 Mg/0.4 Ml Syr) 40 mg SQ HS [facility] Stop: 08/02/23 21:44 Last Admin: 07/06/23 20:21 Dose: 40 mg Folic Acid (Folic Acid 1 Mg Tab) [facility] Stop: 08/02/23 15:29 Last Admin: 07/07/23 08:29 Dose: 1 mg Furosemide (Furosemide 20 Mg Tab) 20 mg PO QAM [facility] Stop: 08/03/23 08:59 Last Admin: 07/07/23 08:27 Dose: 20 mg Potassium Chloride/Dextrose/Sod Cl (D5w And 1/2nss + 20meq Kcl) 20 meq in 1,000 mls @ 100 mls/hr IV .Q10H [facility] Stop: 08/02/23 20:52 Last Admin: 07/07/23 14:39 Dose: 100 mls/hr Promethazine HCl 12.5 mg/ (Sodium Chloride) 50.5 mls @ 202 mls/hr IV Q6H PRN PRN Reason: Nausea And Vomiting Stop: 08/02/23 23:40 Last Infusion: 07/06/23 20:20 Dose: Infused Lorazepam 1 mg/ Syringe 1 mls @ 2 mls/min IV UD PRN; Protocol PRN Reason: EtOH Withdrawal AWSS Score 6,7 Stop: 08/03/23 00:50 Last Admin: 07/06/23 20:19 Dose: 2 mls/min Lorazepam 2 mg/ Syringe 2 mls @ 2 mls/min IV UD PRN; Protocol PRN Reason: EtOH Withdrawal AWSS Score 8,9 Stop: 08/03/23 00:50 Last Admin: 07/04/23 18:25 Dose: 2 mls/min Lorazepam 3 mg/ Syringe 3 mls @ 2 mls/min IV ONCE PRN; Protocol PRN Reason: EtOH Withdrawal AWSS Score 10+ Lidocaine (Lidocaine 5% 1 Patch) 1 patch TD DAILY@2100 [facility] Stop: 08/02/23 20:59 Last Admin: 07/06/23 20:22 Dose: Not Given Loperamide HCl (Loperamide Hcl 2 Mg Cap) 2 mg PO UD PRN PRN Reason: Diarrhea Stop: 08/05/23 00:17 Last Admin: 07/06/23 04:08 Dose: 2 mg Miscellaneous (Remove Lidoderm Patch) 1 each N/A DAILY@0900 [facility] Stop: 08/03/23 08:59 Last Admin: 07/07/23 08:28 Dose: Not Given Multivitamins (Multivitamin Tab) [facility] [place]: 08/03/23 08:59 Last Admin: 07/07/23 08:28 Dose: 1 tab Nadolol (Nadolol 40 Mg Tab) 20 mg PO QPM [facility] Stop: 08/02/23 20:59 Last Admin: 07/06/23 20:21 Dose: 20 mg Ondansetron HCl (Ondansetron Inj 2 Mg/Ml 2 Ml Vial) 4 mg IV Q6H PRN PRN Reason: Nausea And Vomiting Stop: 08/02/23 20:52 Last Admin: 07/07/23 10:13 Dose: 4 mg Pantoprazole Sodium (Pantoprazole 40 Mg Tab) [facility] Stop: 08/03/23 08:59 Last Admin: 07/07/23 08:28 Dose: 40 mg Potassium Chloride (Potassium Chloride 10 Meq Tabcr) 10 meq PO QAM [facility] Stop: 08/03/23 08:59 Last Admin: 07/07/23 08:31 Dose: 10 meq Psyllium Hydrophilic Mucilloid (Psyllium Or Guar Gum Fiber 4gm Packet) 4 gm PO QAM [facility] Stop: 08/03/23 15:44 Last Admin: 07/07/23 10:09 Dose: 4 gm Spironolactone (Spironolactone 25 Mg Tab) 25 mg PO QAM [facility] Stop: 08/03/23 08:59 Last Admin: 07/07/23 08:28 Dose: 25 mg Thiamine HCl (Thiamine Hcl 100 Mg Tab) 100 mg PO BID [facility] Stop: 08/03/23 20:59 Last Admin: 07/07/23 08:27 Dose: 100 mg Ursodiol (Ursodiol 300 Mg Cap) 300 mg PO BID [facility] Stop: 08/02/23 20:59 Last Admin: 07/07/23 08:28 Dose: 300 mg Zolpidem Tartrate (Zolpidem Tartrate 5 Mg Tab) 5 mg PO HS PRN PRN Reason: Sleep Stop: 08/02/23 23:41 Last Admin: 07/05/23 20:55 Dose: 5 mg (1) Alcohol withdrawal Complication of substance-induced condition: uncomplicated Qualified Code(s): F10.930 - Alcohol use, unspecified with withdrawal, uncomplicated (6) Alcoholic cirrhosis of liver Ascites presence: unspecified Qualified Code(s): K70.30 - Alcoholic cirrhosis of liver without ascites
[2023-07-08 06:10] LABS: Albumin Level 3.3 gm/dl (3.4-5.0); BUN Creatinine Ratio 9.6 (10-20); Bilirubin Direct 0.2 mg/dl (0-0.2); Bilirubin,Total 0.8 mg/dl (0.2-1.0); Calcium 8.2 mg/dl (8.6-10.3); Creatinine Clr Calc Pharmacy 101.1 ml/min; Est GFR (African American) 109.9 ml/min; Est GFR (Non-African American) 94.8 ml/min; Magnesium 1.6 mg/dl (1.7-2.4); Phosphorus 3.2 mg/dl (2.5-4.9); Total Protein 6.9 gm/dl (6.0-8.3)
--- NOTE | 2023-07-08 13:42 | Hospitalist Progress Note ---
Date of Service July 08, 2023 Assessment & Plan (1) Alcohol withdrawal: (2) Alcohol abuse: (3) Hypomagnesemia: (4) Transaminitis: (5) Hypokalemia: (6) Alcoholic cirrhosis of liver: Plan 47 year male with h/o alcohol abuse with recent admission for alcohol withdrawal presenting with alcohol withdrawal symptoms Alcohol abuse with alcohol withdrawal- uncomplicated alcohol withdrawal in the past. 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 C/w librium taper, thiamine, folate, MV, ivf. DC ivf once po intake improves. Continues to have tremors and diarrhea Stool test has been negative for any infection and C. difficile toxin Will continue with the protocol He will not go to inpatient rehab Will get PT and OT evaluation Clinically much better with minimal tremors involving the outstretched hands Minimal problem with gait but will get PT and OT evaluation Clinically much better and likely to be discharged in a day or 2 Denies any more tremors and has been ambulating in the hallway without any difficulties Denies any palpitation, nausea or vomiting, diarrhea is settled No significant tremors with outstretched hands He is physically and mentally ready to be discharged He refused to go to inpatient rehab Chest pain Happened to be last night with palpitation and shortness of breath Cardiac troponin, EKG and echo are unremarkable for any ACS Echo of the heart showed EF of 60 to 65%, nondilated cardiac chambers and no significant valvular pathology He was reassured No more chest pain and her palpitation Hypomagnesemia- Monitor and replete Magnesium remains low at 1.4 Has been supplemented will recheck Magnesium remains low and will be replaced will monitor Magnesium level came back as 1.6 Will monitor electrolytes Electrolytes are reasonable Hypokalemia- repleted, recheck in am Potassium level has been normalized Elevated LFTs- due to alcohol abuse. LFT improving. LFTs are improving LFTs are mildly elevated which is due to chronic alcoholism Thrombocytopenia due to alcoholic cirrhosis- Stable, 60 Platelet count remains low at 58 Alcoholic cirrhosis of liver with h/o esophageal varices- looks compensated. Continue lasix, aldactone, nadolol Will continue current medications Strongly advised to quit drinking DVT ppx- lovenox sc Dispo- Admit to [facility] on tele Will be discharged home this afternoon Admission and Anticipated Discharge Date Admission Date: July 03, 2023 Subjective 07/05/2023 The patient was seen and examined in medical telemetry unit He has been complaining of tremors and unsteadiness and gait Denies any palpitation and/or shortness of breath Has nausea and ongoing diarrhea No fever and or chills 07/06/2023 The patient was seen and examined in medical telemetry unit He has had chest pain with palpitation last night EKG, troponin and echo cardona have been unremarkable Tremors are improved No palpitation and no confusion 07/07/2023 The patient was seen and examined in medical telemetry unit He has been feeling much better Tremors are improved Denies any more significant pain and/or diarrhea 07/08/2023 Patient was seen and examined in medical telemetry unit He has been feeling much better and denies any more significant tremors He has been ambulating in the hallway without any problem Denies any palpitation or shortness of breath No nausea vomiting or diarrhea He will be discharged home this afternoon Review of Systems Review of Systems: All systems reviewed and are unremarkable except as noted below Physical Exam Physical Exam: Sitting at the edge of the bed without any acute distress Constitutional: well developed, well nourished and + ill appearing Eyes: PERRL, conjunctivae normal, anicteric sclerae ENMT: external ear and nose normal, oropharynx normal Neck: trachea midline, no thyromegaly Respiratory: no respiratory distress Auscultation: lungs clear to auscultation bilaterally Cardiovascular: Rate/Rhythm: regular rate and regular rhythm; not tachycardic Heart Sounds: normal S1 and normal S2; no murmur Extremities: no edema Gastrointestinal (Abdomen): Inspection/Auscultation: normal bowel sounds; abdomen not distended Percussion/Palpation: abdomen soft; abdomen nontender Neurologic: normal touch/pain/proprioception and moves all extremities; not confused Psychiatric: A+Ox3, euthymic affect Results & Data Results & Data Vital Signs (Past 12 Hours) Vital Signs Temp Pulse Pulse Resp BP Pulse Ox O2 Del Method 07/08/23 12:36 36.7 C 52 L 16 126/82 96 Room Air 07/08/23 08:10 36.8 C 51 L 16 115/73 97 Room Air 07/08/23 07:03 57 L 07/08/23 03:10 37.1 C 70 18 122/81 96 Room Air Laboratory Results [facility] 07/08/23 05:24 Sodium 137 Potassium 4.0 Chloride 106 Carbon Dioxide 26 BUN 9 Creatinine 0.94 Glucose 134 H Calcium 8.2 L Liver Function 07/08/23 Range/Units 05:24 Total Bilirubin 0.8 (0.2-1.0) mg/dl Direct Bilirubin 0.2 (0-0.2) mg/dl AST 86 H (13-39) U/L ALT 60 H (7-52) U/L Alkaline Phosphatase 53 (34-104) U/L Albumin 3.3 L (3.4-5.0) gm/dl Medications Administered Current Inpatient Medications Buspirone HCl (Buspirone 5 Mg Tab) 5 mg PO [facility] Stop: 08/02/23 20:59 Last Admin: 07/08/23 08:09 Dose: 5 mg Citalopram Hydrobromide (Citalopram 20 Mg Tab) [address] [facility] Stop: 08/03/23 08:59 Last Admin: 07/08/23 08:09 Dose: 10 mg Cyanocobalamin (Cyanocobalamin (B-12) 500 Mcg Tablet) [address] [facility] Stop: 08/03/23 08:59 Last Admin: 07/08/23 08:10 Dose: 250 mcg Enoxaparin Sodium (Enoxaparin Inj 40 Mg/0.4 Ml Syr) 40 mg SQ HS [facility] Stop: 08/02/23 21:44 Last Admin: 07/07/23 20:54 Dose: 40 mg Folic Acid (Folic Acid 1 Mg Tab) [address] [facility] Stop: 08/02/23 15:29 Last Admin: 07/08/23 08:09 Dose: 1 mg Furosemide (Furosemide 20 Mg Tab) [facility] Stop: 08/03/23 08:59 Last Admin: 07/08/23 08:09 Dose: 20 mg Potassium Chloride/Dextrose/Sod Cl (D5w And 1/2nss + 20meq Kcl) 20 meq in 1,000 mls @ 100 mls/hr IV .Q10H [facility] Stop: 08/02/23 20:52 Last Admin: 07/08/23 12:41 Dose: 100 mls/hr Promethazine HCl 12.5 mg/ (Sodium Chloride) 50.5 mls @ 202 mls/hr IV Q6H PRN PRN Reason: Nausea And Vomiting Stop: 08/02/23 23:40 Last Infusion: 07/07/23 20:19 Dose: Infused Lorazepam 1 mg/ Syringe 1 mls @ 2 mls/min IV UD PRN; Protocol PRN Reason: EtOH Withdrawal AWSS Score 6,7 Stop: 08/03/23 00:50 Last Admin: 07/06/23 20:19 Dose: 2 mls/min Lorazepam 2 mg/ Syringe 2 mls @ 2 mls/min IV UD PRN; Protocol PRN Reason: EtOH Withdrawal AWSS Score 8,9 Stop: 08/03/23 00:50 Last Admin: 07/04/23 18:25 Dose: 2 mls/min Lorazepam 3 mg/ Syringe 3 mls @ 2 mls/min IV ONCE PRN; Protocol PRN Reason: EtOH Withdrawal AWSS Score 10+ Lidocaine (Lidocaine 5% 1 Patch) 1 patch TD DAILY@2100 [facility] Stop: 08/02/23 20:59 Last Admin: 07/07/23 20:54 Dose: Not Given Loperamide HCl (Loperamide Hcl 2 Mg Cap) 2 mg PO UD PRN PRN Reason: Diarrhea Stop: 08/05/23 00:17 Last Admin: 07/06/23 04:08 Dose: 2 mg Miscellaneous (Remove Lidoderm Patch) 1 each N/A DAILY@0900 [facility] Stop: 08/03/23 08:59 Last Admin: 07/08/23 08:11 Dose: 1 each Multivitamins (Multivitamin Tab) 1 tab PO QAM [facility] Stop: 08/03/23 08:59 Last Admin: 07/08/23 08:09 Dose: 1 tab Nadolol (Nadolol 40 Mg Tab) 20 mg PO QPM [facility] Stop: 08/02/23 20:59 Last Admin: 07/07/23 20:56 Dose: 20 mg Ondansetron HCl (Ondansetron Inj 2 Mg/Ml 2 Ml Vial) 4 mg IV Q6H PRN PRN Reason: Nausea And Vomiting Stop: 08/02/23 20:52 Last Admin: 07/07/23 10:13 Dose: 4 mg Pantoprazole Sodium (Pantoprazole 40 Mg Tab) 40 mg PO QAM [facility] Stop: 08/03/23 08:59 Last Admin: 07/08/23 08:09 Dose: 40 mg Potassium Chloride (Potassium Chloride 10 Meq Tabcr) 10 meq PO QAM [facility] Stop: 08/03/23 08:59 Last Admin: 07/08/23 08:12 Dose: 10 meq Psyllium Hydrophilic Mucilloid (Psyllium Or Guar Gum Fiber 4gm Packet) 4 gm PO QAM [facility] Stop: 08/03/23 15:44 Last Admin: 07/08/23 08:14 Dose: Not Given Spironolactone (Spironolactone 25 Mg Tab) 25 mg PO QAM [facility] Stop: 08/03/23 08:59 Last Admin: 07/08/23 08:09 Dose: 25 mg Thiamine HCl (Thiamine Hcl 100 Mg Tab) 100 mg PO BID [facility] Stop: 08/03/23 20:59 Last Admin: 07/08/23 08:09 Dose: 100 mg Ursodiol (Ursodiol 300 Mg Cap) 300 mg PO BID [facility] Stop: 08/02/23 20:59 Last Admin: 07/08/23 08:09 Dose: 300 mg Zolpidem Tartrate (Zolpidem Tartrate 5 Mg Tab) 5 mg PO HS PRN PRN Reason: Sleep Stop: 08/02/23 23:41 Last Admin: 07/07/23 20:57 Dose: 5 mg (1) Alcohol withdrawal Complication of substance-induced condition: uncomplicated Qualified Code(s): F10.930 - Alcohol use, unspecified with withdrawal, uncomplicated (6) Alcoholic cirrhosis of liver Ascites presence: unspecified Qualified Code(s): K70.30 - Alcoholic cirrhosis of liver without ascites
--- NOTE | 2023-07-09 07:58 | Discharge Summary ---
Date of Service July 08, 2023 Admission HPI Per Admitting Provider 47 year old male with h/o alcohol abuse, alcoholic cirrhosis of liver, who presented to the ED with alcohol withdrawal symptoms. Recently admitted 05/31-06/05 for alcohol withdrawal symptoms. After discharge, he did not start drinking until about a week ago when he went out with his friends. He has been drinking 1/2-1/5th of vodka nightly since until about Friday night. States they found out at work that he was drinking and gave him the last notice. He stopped drinking after that and was doing fine until yesterday when he started vomiting about every 2 hours or so and he came today for the same thing. States he has not vomited after coming to the ED. He feels somewhat better. He does not smoke or do drugs. Denies any fever, chills, CP, SOB. States he has not been to alcohol rehab before and his insurance would not cover alcohol rehab. Admission Exam Per Admitting Provider Physical Exam: General: Lying comfortably in bed, not in acute distress, on room air HEENT: EOMI, HARLEY, MMM Chest: Clear breath sounds bilaterally, no wheezes or crackles CVS: Regular rate and rhythm, normal heart sounds, no murmur Abdomen: Soft, non tender, not distended, normal bowel sounds Neuro: Awake, alert, oriented, conversing well, non focal Extremities: Hand tremors+. no edema Principal Diagnosis Alcohol withdrawal, alcoholic cirrhosis, electrolyte imbalance- corrected Discharge Exam Sitting at the edge of the bed without any acute distress Constitutional well developed, well nourished and + ill appearing Eyes PERRL, conjunctivae normal, anicteric sclerae ENMT external ear and nose normal, oropharynx normal Neck trachea midline, no thyromegaly Respiratory no respiratory distress Auscultation: lungs clear to auscultation bilaterally Cardiovascular Rate/Rhythm: regular rate and regular rhythm; not tachycardic Heart Sounds: normal S1 and normal S2; no murmur Extremities: no edema Gastrointestinal (Abdomen) Inspection/Auscultation: normal bowel sounds; abdomen not distended Percussion/Palpation: abdomen soft; abdomen nontender Neurologic normal touch/pain/proprioception and moves all extremities; not confused Psychiatric A+Ox3, euthymic affect Discharge Data Allergies Allergy/AdvReac Type Severity Reaction Status Date / Time aspirin AdvReac Unknown THINS Verified 07/03/23 18:38 BLOOD, NOSE BLEEDS Consultations 07/03/23 18:41 ED Decision to Admit Stat Hospital Course (1) Alcohol withdrawal: (2) Alcohol abuse: (3) Hypomagnesemia: (4) Transaminitis: (5) Hypokalemia: (6) Alcoholic cirrhosis of liver: Plan 47 year male with h/o alcohol abuse with recent admission for alcohol withdrawal presenting with alcohol withdrawal symptoms Alcohol abuse with alcohol withdrawal- uncomplicated alcohol withdrawal in the past. 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 C/w librium taper, thiamine, folate, MV, ivf. DC ivf once po intake improves. Continues to have tremors and diarrhea Stool test has been negative for any infection and C. difficile toxin Will continue with the protocol He will not go to inpatient rehab Will get PT and OT evaluation Clinically much better with minimal tremors involving the outstretched hands Minimal problem with gait but will get PT and OT evaluation Clinically much better and likely to be discharged in a day or 2 Denies any more tremors and has been ambulating in the hallway without any difficulties Denies any palpitation, nausea or vomiting, diarrhea is settled No significant tremors with outstretched hands He is physically and mentally ready to be discharged He refused to go to inpatient rehab Chest pain Happened to be last night with palpitation and shortness of breath Cardiac troponin, EKG and echo are unremarkable for any ACS Echo of the heart showed EF of 60 to 65%, nondilated cardiac chambers and no significant valvular pathology He was reassured No more chest pain and her palpitation Hypomagnesemia- Monitor and replete Magnesium remains low at 1.4 Has been supplemented will recheck Magnesium remains low and will be replaced will monitor Magnesium level came back as 1.6 Will monitor electrolytes Electrolytes are reasonable Hypokalemia- repleted, recheck in am Potassium level has been normalized Elevated LFTs- due to alcohol abuse. LFT improving. LFTs are improving LFTs are mildly elevated which is due to chronic alcoholism Thrombocytopenia due to alcoholic cirrhosis- Stable, 60 Platelet count remains low at 58 Alcoholic cirrhosis of liver with h/o esophageal varices- looks compensated. Continue lasix, aldactone, nadolol Will continue current medications Strongly advised to quit drinking DVT ppx- lovenox sc Dispo- Admit to [facility] on tele Will be discharged home this afternoon Total Time Total Time Spent Total Time Spent (In Minutes): 35 minutes Discharge Plan Discharge Items Patient Disposition: Home - Self-Care Reason For Visit: ALCOHOL WITHDRAWAL Discharge Diagnosis: Alcohol withdrawal, alcoholic cirrhosis, electrolyte imbalance- corrected Condition on Discharge: Good Activity: Resume your previous activity Non-emergency contact: Primary Care Provider Call non-emergency contact if: you have any medication questions and your symptoms worsen Follow-up/Referrals: Michelle Borrego, [Primary Care Provider] - (Your doctor's office will give you a call with an appointment within 7 days) Diet: Low Sodium (2gm) and Lactose Intolerant Addtl Attending Provider Instructions: Please take precautions to avoid falls Strongly advised to quit drinking Please keep appointments with the healthcare providers No change in your current medications Pending Studies at Discharge: No Stand-Alone Forms: My [employer], Pain - Opioid Pain Management, Work/School Release, Smoking Cessation Medications and DC Order Prescriptions: Continued buspirone 5 mg Tablet 5 mg PO [facility] potassium chloride 10 mEq Tablet Extended Release 10 meq PO QAM nadolol 20 mg Tablet 20 mg PO QPM ursodiol 300 mg Capsule 300 mg PO BID zolpidem [Ambien] 5 mg Tablet 5 mg PO HS PRN (Reason: Sleep) spironolactone 25 mg tablet 25 mg PO QAM furosemide 20 mg tablet 20 mg PO QAM citalopram 10 mg tablet 10 mg PO QAM thiamine HCl (vitamin B1) 100 mg Tablet 100 mg PO QAM Qty: 30 0RF folic acid 1 mg Tablet 1 mg PO QAM Qty: 30 0RF pantoprazole 20 mg tablet,delayed release (DR/EC) 20 mg PO QAM lidocaine 5 % adhesive patch,medicated 1 patch transdermal UD Rx Instructions: 1 patch for 12 hours daily gabapentin 300 mg capsule 300 mg PO TID cyanocobalamin (vitamin B-12) [Vitamin B-12] 250 mcg tablet 250 mcg PO QAM Discharge Orders: Discharge Order (Routine); Ordered 07/08/23 Ordered By: Kiara Ruth/Other Patient Handouts: Alcohol Withdrawal: What to Expect Admission Data Admit Date/Time: 07/03/23 18:53 Attending Provider: Kiraa De La Garza Admit Provider: Silverio Hatfield Primary Care Provider: Michelle Borrego Other Providers: Silverio Hatfield; Randell Davies Other Interventions: Discharge Summary Assessment (RN) Last Done: 07/08/23 13:52
== END 2023-07-08 14:26 | disposition home or self-care (01) | DRG 897 ==
LOC: ED 13:15 → SUATTDRO 18:53 → INTOOBSV 18:53 → EDINP 18:53 → 2W 20:53

== ENCOUNTER 2023-07-19 23:52 | Inpatient (IN) ==
--- OUTSIDE RECORDS SUMMARY | 2023-07-19 23:58 | External Medical Summary | Summary of Care ---
Author Name Unknown Organization [facility] Address [address] [place] [address] Phone [phone] Care Team Providers Care Vocational Director Name Role Phone Elmo Michelle Mari KEITA Primary Care Provider [phone] Reason for Visit * Reason Onset Date Comments Hospital Follow-Up 07/10/2023 Jori for [facility] attempt x 2 Encounter Details Date Type Department Care Team (Late st Contact Info) Description 07/10/2023 Telephone Anc[address] [place] [id number] Erin Jolley RN Hospital Follow-Up (Jori for [facility] attempt x 2) Allergies Active Allergy Reactions Criticality Noted Date Comments Aspirin Other (Please comment) 02/12/2016 Reports having a bloody nose. documented as of this encounter (statuses as of 07/14/2023) Medications Medication Sig Dispensed Refills Start Date [...] the morning. 90 Tablet 1 07/03/2023 Active documented as of this encounter (statuses as of 07/14/2023) Active Problems Problem Noted Date Diagnosed Date [...] as of this encounter (statuses as of 07/14/2023) Resolved Problems Problem Noted Date Diagnosed Date [...] as of this encounter (statuses as of 07/14/2023) Immunizations Name Administration Dates Next Due COVID-19 [...] Telephone Encounter - Erin Jolley RN - 07/11/2023 11:40 AM EDT Left message for the patient to call the office. * Telephone Encounter - Erin Jolley RN - 07/10/2023 4:11 PM EDT Sent myG message to patient to call me re a hospital follow up appointment. * Telephone Encounter - Erin Jolley RN - 07/10/2023 11:24 AM EDT Transitions of Care Note Reason for Referral:Recent Admission Phone visit for follow up: jori Admitted to: [facility], Date: 07.03.23 Discharged to: home, Date: 07.08.23 Diagnosis driving hospitalization: Alcohol withdrawal, alcoholic cirrhosis, electrolyte imbalance- corrected I will offer the drug and alcohol # again. I also spoke to Jacklny Dong and she would be willing to speak to patient again if I can reach him and get him to come in for a hospital discharge appointment. [address] [place] [address] Javier DOWNS, [id number] | Left message for the patient to call the office. NO hospital follow up scheduled at this time. Erin Jolley RN documented in this encounter Plan of Treatment Upcoming Encounters Date Type Department Care Team (Late st Contact Info) Description 09/01/2023 8:15 AM EDT Imaging Radiology [address] [place] [id number] 09/08/2023 3:00 PM EDT Office Visit Gastroenterology, [facility] [address] [facility] [place] [id number] Anatoliy Meza CRNP [address] [facility] [place] [address] 02/03/2024 8:30 AM EST Office Visit Family Medicine [address] [place] [id number] Michelle Borrego[address] [place] [id number] Scheduled Procedures Name Priority Associated Diagnoses Date/Ti [...] the patient have Health Care Power of Associate Quality Engineer? No Code Status History Code Status [...] the patient have Health Care Power of Associate Quality Engineer? No Full Code 02/10/2016 5:50 PM 02/20/2016 12:09 AM Th is order reflects the patients wishes and were consensually agreed upon. Question Answer Comments Discussion of Advance Directives occurred with: Patient Does the patient have a Living Will? No Does the patient have Health Care Power of Associate Quality Engineer? No Full Code 01/15/2016 3:25 PM 01/18/2016 6:24 PM Thi s order reflects the patients wishes and were consensually agreed upon. Question Answer Comments Discussion of Advance Directives occurred with: Patient Does the patient have a Living Will? No Does the patient have Health Care Power of Associate Quality Engineer? No Care Teams Vocational Director Relationship Specialty Start Date End Date Michelle Borrego DO [address] [place] [address] [place] [id number] PCP - General Internal Medicine 06/07/16 documented as of this encounter"
[2023-07-20] MEDS: SODIUM CHLORIDE 0.9% 1,000 ML IV STA (00:41)
[2023-07-20] MEDS: ONDANSETRON INJ 2 MG/ML 2 ML VIAL IV STA ×2 (00:41→04:19)
[2023-07-20 00:56] LABS: Basophils # (auto) 0.15 K/uL (0.00-0.20); Eosinophils # (auto) 0.58 K/uL (0.00-0.50); Eosinophils % (auto) 7.8 %; Hematocrit (blood only) 50.8 % (42.0-52.0); Hemoglobin 17.6 g/dl (14.0-18.0); Immature Granulocytes # (auto) 0.03 K/uL (0.01-0.20); Immature Granulocytes % (auto) 0.4 %; Lymphocytes # (auto) 2.13 K/uL (1.20-3.40); Lymphocytes % (auto) 28.7 %; Mean Corpuscular Hemoglobin 33.1 pg (25.0-34.0); Mean Corpuscular Hgb Conc 34.6 g/dL (32.0-36.0); Mean Corpuscular Volume 95.5 fL (80.0-100.0); Mean Platelet Volume 9.6 fL (9.4-12.4); Monocytes # (auto) 0.74 K/uL (0.11-0.59); Neutrophils # (auto) 3.79 K/uL (1.40-6.50); Neutrophils % (auto) 51.1 %; Platelet Count 198 K/uL (130-400); RDW Coefficient of Variation 12.2 % (11.5-14.5); RDW Standard Deviation 43.1 fL (36.4-46.3); Red Blood Count 5.32 M/uL (4.70-6.10); White Blood Count 7.42 K/ul (4.8-10.8)
[2023-07-20 01:03] LABS: Albumin Globulin Ratio 0.9 (0.9-2); Albumin Level 4.1 gm/dl (3.4-5.0); BUN Creatinine Ratio 2.9 (10-20); Bilirubin,Total 1.1 mg/dl (0.2-1.0); Calcium 8.7 mg/dl (8.6-10.3); Creatinine Clr Calc Pharmacy 123.4 ml/min; Est GFR (African American) 128.4 ml/min; Est GFR (Non-African American) 110.8 ml/min; Globulin 4.7 gm/dl (2.5-4.0); Magnesium 1.6 mg/dl (1.7-2.4); Potassium 3.1 mmol/L (3.5-5.1); Total Protein 8.8 gm/dl (6.0-8.3)
[2023-07-20 01:11] LABS: Troponin I High Sensitivity 4.5 pg/ml (0-20)
--- NOTE | 2023-07-20 01:23 | Emergency Department Note ---
Impression & Plan Alcohol abuse, Hypokalemia, Hypomagnesemia, Transaminitis, Alcoholic intoxication ED Provider Note ED Provider Note NAME: ANDREA ADAME AGE:47 SEX: Male : 1975 ARRIVES VIA: EMS INFORMANT: Patient ED PROVIDER(s): Aleisha Bell DO CHIEF COMPLAINT: Alcohol abuse, concern for evolving withdrawal symptoms HPI: This is a 47-year-old male presents emergency room due to concern for alcohol withdrawal symptoms. Patient states he does have a history of alcohol abuse and has been on a binge recently drinking approximately half a bottle of tequila daily over the last several weeks. He states his last drink was yesterday around noon. Patient states he has had significant withdrawal symptoms before and has previously required hospitalization. He states with 1 episode 7 years ago he did have a seizure. Patient states he has had nausea, but no vomiting. He denies any fevers, chills, or other illness. He denies any abdominal pain, chest pain, trouble breathing, change in urine, or change in stools. He denies any trauma or injury. PAST MEDICAL HISTORY:See Below PAST SURGICAL HISTORY:See Below FAMILY HISTORY:See Below SOCIAL HISTORY:See Below HOME MEDICATIONS:See Below ALLERGIES:See Below VITALS:See Below PHYSICAL EXAMINATION: GENERAL: alert, unwell appearing, well nourished, no distress, non-toxic EYE EXAM: normal conjunctiva, PERRL and EOM's grossly intact OROPHARYNX: no exudate, no erythema, lips, buccal mucosa, and tongue normal and mucous membranes are dry NECK: supple, no nuchal rigidity, no adenopathy, non-tender LUNGS: Clear to auscultation. Normal chest wall mechanics, no w/r/r HEART: no murmurs, S1 normal and S2 normal ABDOMEN: abdomen soft, non-tender, normo-active bowel sounds, no masses, no rebound or guarding. BACK: Back is symmetrical on inspection and there is no deformity, no midline tenderness, no CVA tenderness. SKIN: no rashes, petechiae, orbruising UPPER EXTREMITIES: upper extremities are grossly normal. FROM, nml pulses b/l. LOWER EXTREMITIES: No pitting edema. FROM, nml pulses b/l. NEURO EXAM: Normal sensorium, cranial nerves II-XII grossly intact, normal speech, no facial droop,nogross weakness of arms, no gross weakness of legs. Gross sensation intact. No ataxia. Vital Signs: reviewed and remarkable Differential Diagnosis: alcohol intoxication, substance abuse, hypoglycemia, electrolyte abnormalities, dysrhythmia, dehydration, CHI, ICH, as well as others were entertained. MEDICAL DECISION MAKING: This is a 47-year-old male with a history of alcohol abuse who presents due to concern for evolving alcohol withdrawal. Patient was afebrile vital signs stable on arrival. Labs drawn and sent, IV established, EKG performed at bedside interpreted by me and he was monitored on telemetry. He was noted to have significant alcohol intoxication as well as hypomagnesemia, hypokalemia, and elevated transaminases. Patient was given IV fluids, IV Protonix, IV Pepcid, IV Zofran, banana bag, and IV magnesium. He was given oral potassium repletion additionally. Patient monitored over several hours and had no obvious evidence of withdrawal. He did complain of persistent nausea but was tolerating sips at bedside. Patient denied any interest in inpatient rehab. We discussed options for medications to take at home to help prevent other withdrawal symptoms such as Librium which she has taken previously according to hospital notes. Patient states he is uncomfortable trying to take an oral medication given his persistent nausea despite no vomiting. He is concerned that his symptoms could worsen at home and due to his remote history of withdrawal related seizure, feels he needs admitted. [facility]. Patient was given IV Valium additionally once he began to appear slightly more tremulous and became more tachycardic. Consultation(s): 626: Discussed with Dr. Campo, [facility] hospitalist team, for additional evaluation and management. ER Treatment Provided: See below Diagnostics Interpreted By Me: -ECG: Normal sinus at 94, normal QRS, prolonged QTc, nonspecific ST/T wave changes -Cardiac Monitoring: An order was placed for continuous cardiac monitoring. The monitor shows a rate of 66 with normal sinus rhythm. -Laboratory studies: As stated above and show below. Triage Nursing Note Reviewed Prior/Outside Records Reviewed -recent discharge summary from earlier this month reviewed Past Med/Surg History Medical History Encounter for pre-operative examination Depression Anxiety Thrombocytopenia Ascites Portal hypertension Esophageal varices Alcoholic cirrhosis of liver History of macrocytic anemia History of alcohol abuse Surgical History History of esophagogastroduodenoscopy (EGD) Including procedures for esophageal varices banding History of tonsillectomy Family History Mother Diabetes Father Prostate cancer Other No family history of adverse response to anesthesia Social History Smoking Status: Never smoker Tobacco Type: Smokeless Tobacco (Dip or Chew) Second Hand Exposure: No; Do You Dip or Chew Tobacco: Yes; Hx Alcohol Use: Yes Alcohol type: hard liquor Hx Substance Use: No Preferred Language: Vietnamese Communication Ability: Effective Cable Television Program Director Required: No Beliefs That Will Affect Care: None Current Living Situation: Alone Current Living Situation Comment: lives with parents Feels Safe at Home: Yes Assistive Devices: None Allergies Allergies Allergy/AdvReac Type Severity Reaction Status Date / Time aspirin AdvReac Unknown THINS Verified 07/03/23 18:38 BLOOD, NOSE BLEEDS Home Meds Home Medications Medication Instructions Recorded Confirmed buspirone 5 mg tablet 5 mg PO AMHS 06/10/18 07/20/23 nadolol 20 mg tablet 20 mg PO QPM 06/10/18 07/20/23 potassium chloride 10 mEq 10 meq PO QAM 06/10/18 07/20/23 tablet,extended release ursodiol 300 mg capsule 300 mg PO BID 06/10/18 07/20/23 zolpidem 5 mg tablet (Ambien) 5 mg PO HS PRN Sleep 06/10/18 07/20/23 furosemide 20 mg tablet 20 mg PO QAM 11/14/22 07/20/23 spironolactone 25 mg tablet 25 mg PO QAM 11/14/22 07/20/23 citalopram 10 mg tablet 10 mg PO QAM 04/09/23 07/20/23 cyanocobalamin (vitamin B-12) 250 250 mcg PO QAM 07/03/23 07/20/23 mcg tablet (Vitamin B-12) gabapentin 300 mg capsule 300 mg PO TID 07/03/23 07/20/23 pantoprazole 20 mg tablet,delayed 20 mg PO QAM 07/03/23 07/20/23 release Previous Rx's Medication Instructions Recorded folic acid 1 mg tablet 1 mg PO QAM #30 tabs 06/06/23 thiamine HCl (vitamin B1) 100 mg 100 mg PO QAM #30 tabs 06/06/23 tablet Results & Data (ED) Vital Signs Vital Signs - 24 hr 07/19/23 23:54 07/20/23 00:29 07/20/23 00:34 Temperature 36.8 C Temperature Source Temporal Artery Scan Pulse Rate 112 H 97 H Pulse Rate [Apical] 95 H Pulse Rhythm Regular Regular Pulse Rhythm [Apical] Regular Pulse Strength Normal Pulse Strength [Apical] Normal Respiratory Rate 18 15 15 Respiratory Effort / Characteristics Non-Labored Spontaneous Non-Labored Respiratory Depth Normal Normal Respiratory Pattern Regular Regular Blood Pressure 133/88 Blood Pressure [Left Arm] 128/101 H Blood Pressure Mean 103 Blood Pressure Mean [Left Arm] 110 Blood Pressure Position Sitting Pulse Oximetry 95 94 95 Oxygen Delivery Method Room Air Room Air Room Air Sepsis Recent Fever Within 48 Hours No Sepsis New/Unexplained Change in Mental Status N/A Sepsis Action Taken by Nursing No Action Required 07/20/23 01:26 07/20/23 01:30 07/20/23 01:55 Temperature Temperature Source Pulse Rate 94 H 94 H 98 H Pulse Rate [Apical] Pulse Rhythm Pulse Rhythm [Apical] Pulse Strength Pulse Strength [Apical] Respiratory Rate 12 21 Respiratory Effort / Characteristics Respiratory Depth Respiratory Pattern Blood Pressure 122/79 118/71 Blood Pressure [Left Arm] Blood Pressure Mean 93 86 Blood Pressure Mean [Left Arm] Blood Pressure Position Pulse Oximetry 88 L 94 Oxygen Delivery Method Sepsis Recent Fever Within 48 Hours Sepsis New/Unexplained Change in Mental Status Sepsis Action Taken by Nursing 07/20/23 02:00 07/20/23 02:30 07/20/23 03:00 Temperature Temperature Source Pulse Rate 96 H 74 72 Pulse Rate [Apical] Pulse Rhythm Pulse Rhythm [Apical] Pulse Strength Pulse Strength [Apical] Respiratory Rate 27 H 14 16 Respiratory Effort / Characteristics Respiratory Depth Respiratory Pattern Blood Pressure 136/86 127/84 Blood Pressure [Left Arm] Blood Pressure Mean 102 98 Blood Pressure Mean [Left Arm] Blood Pressure Position Pulse Oximetry 97 96 Oxygen Delivery Method Sepsis Recent Fever Within 48 Hours Sepsis New/Unexplained Change in Mental Status Sepsis Action Taken by Nursing 07/20/23 03:31 07/20/23 04:00 07/20/23 04:30 Temperature Temperature Source Pulse Rate 96 H 65 76 Pulse Rate [Apical] Pulse Rhythm Pulse Rhythm [Apical] Pulse Strength Pulse Strength [Apical] Respiratory Rate 21 16 21 Respiratory Effort / Characteristics Respiratory Depth Respiratory Pattern Blood Pressure 136/77 135/85 129/70 Blood Pressure [Left Arm] Blood Pressure Mean 96 101 89 Blood Pressure Mean [Left Arm] Blood Pressure Position Pulse Oximetry 95 97 98 Oxygen Delivery Method Sepsis Recent Fever Within 48 Hours Sepsis New/Unexplained Change in Mental Status Sepsis Action Taken by Nursing 07/20/23 05:00 07/20/23 05:27 07/20/23 05:30 Temperature Temperature Source Pulse Rate 70 72 63 Pulse Rate [Apical] Pulse Rhythm Pulse Rhythm [Apical] Pulse Strength Pulse Strength [Apical] Respiratory Rate 19 13 Respiratory Effort / Characteristics Respiratory Depth Respiratory Pattern Blood Pressure 121/77 125/78 Blood Pressure [Left Arm] Blood Pressure Mean 91 93 Blood Pressure Mean [Left Arm] Blood Pressure Position Pulse Oximetry 99 96 Oxygen Delivery Method Sepsis Recent Fever Within 48 Hours Sepsis New/Unexplained Change in Mental Status Sepsis Action Taken by Nursing Laboratory Data 07/20/23 00:25 07/20/23 00:25 Lab Results 07/20/23 07/20/23 Range/Units 00:25 03:36 WBC 7.42 (4.8-10.8) K/ul RBC 5.32 (4.70-6.10) M/uL Hgb 17.6 (14.0-18.0) g/dl Hct 50.8 (42.0-52.0) % MCV 95.5 (80.0-100.0) fL MCH 33.1 (25.0-34.0) pg MCHC 34.6 (32.0-36.0) g/dL RDW Std Deviation 43.1 (36.4-46.3) fL RDW Coeff of Hang 12.2 (11.5-14.5) % Plt Count 198 (130-400) K/uL MPV 9.6 (9.4-12.4) fL Immature Gran % (Auto) 0.4 % Neut % (Auto) 51.1 % Lymph % (Auto) 28.7 % [place] % (Auto) 10.0 % Eos % (Auto) 7.8 % Baso % (Auto) 2.0 % Neut # (Auto) 3.79 (1.40-6.50) K/uL Lymph # (Auto) 2.13 (1.20-3.40) K/uL [place] # (Auto) 0.74 H (0.11-0.59) K/uL Eos # (Auto) 0.58 H (0.00-0.50) K/uL Baso # (Auto) 0.15 (0.00-0.20) K/uL Immature Gran # (Auto) 0.03 (0.01-0.20) K/uL PT 12.6 H (9.0-12.0) Seconds INR 1.2 H (0.9-1.1) Sodium 141 (136-145) mmol/L Potassium 3.1 L (3.5-5.1) mmol/L Chloride 105 (98-107) mmol/L Carbon Dioxide 22 (21-32) mmol/L Anion Gap 14 H (3-11) BUN 2 L (6-23) mg/dl Creatinine 0.70 (0.6-1.4) mg/dl Est Cr Clr Drug Dosing 123.4 ml/min Est GFR ( Amer) 128.4 ml/min Est GFR (Non-Af Amer) 110.8 ml/min BUN/Creatinine Ratio 2.9 L (10-20) Glucose 136 H (70-99(Fasting)) mg/dl Calcium 8.7 (8.6-10.3) mg/dl Magnesium 1.6 L (1.7-2.4) mg/dl Total Bilirubin 1.1 H (0.2-1.0) mg/dl AST 326 H (13-39) U/L ALT 240 H (7-52) U/L Alkaline Phosphatase 88 (34-104) U/L Troponin I High Sens 4.5 (0-20) pg/ml Total Protein 8.8 H (6.0-8.3) gm/dl Albumin 4.1 (3.4-5.0) gm/dl Globulin 4.7 H (2.5-4.0) gm/dl Albumin/Globulin Ratio 0.9 (0.9-2) Lipase 51 (11-82) U/L Urine Color Yellow Urine Appearance Clear (Clear) Urine pH 7.5 (4.5-7.5) Ur Specific [place] 1.008 (1.000-1.030) Urine Protein Trace H (Negative) Urine Glucose (UA) Negative (Negative) Urine Ketones Negative (Negative) Urine Blood Negative (Negative) Urine Nitrite Negative (Negative) Urine Bilirubin Negative (Negative) Urine Urobilinogen Negative (Negative) Ur Leukocyte Esterase Negative (Negative) Urine WBC (Auto) 0-5 (0-5) /hpf Urine RBC (Auto) 0-2 (0-2) /hpf U Hyaline Cast (Auto) 3-5 H (0-2) /lpf U Epithel Cells (Auto) 0-2 (0-2) /hpf Urine Bacteria (Auto) None Seen (None Seen) Urine Opiates Screen Neg (Neg) Ur Methadone, Qual Neg (Neg) Urine Barbiturates Neg (Neg) Ur Phencyclidine (PCP) Neg (Neg) U Amphetamin/Meth Scrn Neg (Neg) MDMA (Ecstasy) Screen Neg (Neg) U Benzodiazepines Scrn Pos H (Neg) Ur Cocaine Metabolite Neg (Neg) U Marijuana (THC) Screen Neg (Neg) Ethyl Alcohol mg/dL 314.6 H (<10.0) mg/dl Administered Medications Discontinued Medications Diazepam (Diazepam 5 Mg/Ml 10ml Vial) 5 mg IV NOW STA Stop: 07/20/23 06:22 Last Admin: 07/20/23 06:29 Dose: 5 mg Documented By: AARON Sodium Chloride (Nss) 1,000 mls @ 999 mls/hr IV .Q1H1M STA Stop: 07/20/23 01:32 Last Infusion: 07/20/23 01:56 Dose: Infused Documented By: Admin: 07/20/23 00:41 Dose: 999 mls/hr Documented By: AARON Multivitamins 10 ml/ Thiamine HCl 100 mg/ Folic Acid 1 mg/Sodium Chloride 1,011.2 mls @ 250 mls/hr IV .Q4H3M ONE Stop: 07/20/23 05:22 Last Infusion: 07/20/23 06:17 Dose: Infused Documented By: Admin: 07/20/23 01:53 Dose: 250 mls/hr Documented By: AARON Sodium Chloride (Nss) 1,000 mls @ 999 mls/hr IV .Q1H1M ONE Stop: 07/20/23 02:20 Last Infusion: 07/20/23 03:02 Dose: Infused Documented By: Admin: 07/20/23 01:50 Dose: 999 mls/hr Documented By: AARON Magnesium Sulfate/Dextrose (Magnesium Sulfate / D5w) 1 gm in 100 mls @ 100 mls/hr IV NOW STA Stop: 07/20/23 02:20 Last Infusion: 07/20/23 03:02 Dose: Infused Documented By: Admin: 07/20/23 01:47 Dose: 100 mls/hr Documented By: AARON Pantoprazole Sodium 40 mg/ (Syringe) 10 mls @ 5 mls/min IV NOW ONE Stop: 07/20/23 01:24 Last Admin: 07/20/23 01:50 Dose: 5 mls/min Documented By: AARON Famotidine (Pepcid 20mg Iv Push) 20 mg in 5 mls @ 2.5 mls/min IV NOW STA Stop: 07/20/23 04:16 Last Admin: 07/20/23 04:19 Dose: 2.5 mls/min Documented By: AARON Ondansetron HCl (Ondansetron Inj 2 Mg/Ml 2 Ml Vial) 4 mg IV NOW STA Stop: 07/20/23 00:33 Last Admin: 07/20/23 00:41 Dose: 4 mg Documented By: AARON Ondansetron HCl (Ondansetron Inj 2 Mg/Ml 2 Ml Vial) 4 mg IV NOW STA Stop: 07/20/23 04:16 Last Admin: 07/20/23 04:19 Dose: 4 mg Documented By: AARON Potassium Chloride (Potassium Chloride Crtab 20 Meq Tabcr) 40 meq PO NOW STA Stop: 07/20/23 05:01 Last Admin: 07/20/23 05:07 Dose: 40 meq Documented By: AARON Imaging Data Radiologist's Impression: Chest X-Ray 07/20/23 07:01 XR chest 1V portable CLINICAL HISTORY: low o2 COMPARISON STUDY: Chest radiograph July 03, 2023. FINDINGS: Lung volumes are normal. Lungs are clear. There is no pneumothorax or pleural effusion. Cardiac size is normal. Mediastinal contours are normal. There is no evidence for pulmonary edema. IMPRESSION: No acute cardiopulmonary findings. ACT 112: Negative or not required by law. Electronically signed by: Fidel Krishnamurthy M.D. 07/20/2023 7:22 AM Discharge Plan Visit Data Chief Complaint: Alcohol Withdrawal Stated Complaint: NAUSEA ED Provider: Aleisha Bell Discharge Problem: Alcohol abuse, Hypokalemia, Hypomagnesemia, Transaminitis, Alcoholic intoxication Forms Stand Alone Forms: My [facility], Suicide Prevention Resources Prescriptions Prescriptions: No Action buspirone 5 mg Tablet 5 mg PO AMHS potassium chloride 10 mEq Tablet Extended Release 10 meq PO QAM nadolol 20 mg Tablet 20 mg PO QPM ursodiol 300 mg Capsule 300 mg PO BID zolpidem [Ambien] 5 mg Tablet 5 mg PO HS PRN (Reason: Sleep) spironolactone 25 mg tablet 25 mg PO QAM furosemide 20 mg tablet 20 mg PO QAM citalopram 10 mg tablet 10 mg PO QAM thiamine HCl (vitamin B1) 100 mg Tablet 100 mg PO QAM Qty: 30 0RF folic acid 1 mg Tablet 1 mg PO QAM Qty: 30 0RF pantoprazole 20 mg tablet,delayed release (DR/EC) 20 mg PO QAM gabapentin 300 mg capsule 300 mg PO TID cyanocobalamin (vitamin B-12) [Vitamin B-12] 250 mcg tablet 250 mcg PO QAM Referrals Referrals: Michelle Borrego DO [Primary Care Provider] -
[2023-07-20 01:29] LABS: INR 1.2 (0.9-1.1); Prothrombin Time 12.6 Seconds (9.0-12.0)
[2023-07-20] MEDS: MAGNESIUM SULFATE / D5W 1 GM/100 ML BAG IV STA (01:47)
[2023-07-20] MEDS: PANTOprazole 40 MG in SYRINGE 0 ML IV ONE (01:50)
[2023-07-20] MEDS: SODIUM CHLORIDE 0.9% 1,000 ML IV ONE (01:50)
[2023-07-20] MEDS: MULTI-VITAMIN INFUSION 10 ML, THIAMINE HCL 100 MG, FOLIC ACID 1 MG in SODIUM CHLORIDE 0... IV ONE (01:53)
[2023-07-20 03:59] LABS: Appearance Urine Clear (Clear); Bacteria Urine Automated None Seen (None Seen); Bilirubin Urine Negative (Negative); Blood Urine Negative (Negative); Color Urine Yellow; Epithelial Cell Urine Auto 0-2 /hpf (0-2); Glucose Urine UA Negative (Negative); Ketones Urine Negative (Negative); Leukocyte Esterase Urine Negative (Negative); Nitrite Urine Negative (Negative); Protein Urine Trace (Negative); RBC Urine Automated 0-2 /hpf (0-2); Specific Gravity Urine 1.008 (1.000-1.030); Urobilinogen Urine Negative (Negative); WBC Urine Automated 0-5 /hpf (0-5); pH Urine 7.5 (4.5-7.5)
[2023-07-20] MEDS: FAMOTIDINE 20MG IV PUSH 20 MG/5 ML SYR IV STA (04:19)
[2023-07-20] MEDS: POTASSIUM CHLORIDE CRTAB 20 MEQ TABCR PO STA ×2 (05:07→08:37)
[2023-07-20 05:22] LABS: Amphetamines+Metham, Urine Neg (Neg); Barbiturates, Urine Neg (Neg); Benzodiazepine, Urine Pos (Neg); Cocaine, Urine Neg (Neg); MDMA (Ecstacy), Urine Neg (Neg); Marijuana, Urine Neg (Neg); Methadone, Urine Neg (Neg); Opiate, Urine Neg (Neg); Phencyclidine, Urine Neg (Neg)
[2023-07-20] MEDS: diazePAM 5 MG/ML 10ML VIAL IV STA (06:29)
--- NOTE | 2023-07-20 07:02 | History & Physical Report ---
Date of Service July 20, 2023 Assessment & Plan (1) Alcohol withdrawal: Plan: hx alcoholic cirrhosis, no overt decompensation Alcoholic hepatitis, good prognosis with computed Maddrey DF score of 3.9 points Diarrhea rule out C. difficile Hypokalemia, hypomagnesemia secondary to diarrheal illness and home diuretic Rx Medical telemetry LARISA S, DT precautions Replace electrolytes Hold home diuretic for now until patient euvolemic Stool C. difficile DVT prophylaxis. SCDs Re: History GI bleed Full code Text document was generated using H5 voice recognition software. It may contain grammatical or spelling errors. Kindly contact undersigned for clarification of any documentation item in question. History of Present Illness Chief Complaint: Alcohol withdrawal Primary Care Provider: Michelle Borrego DO History obtained from patient and records. Medical history significant for alcoholic cirrhosis, history of esophageal varices, past history of alcohol withdrawal seizures, ongoing alcohol abuse. Recurrent admissions (almost monthly) since October 2022. Last confinement 2 weeks ago for alcohol withdrawal. Patient started drinking again 2 days ago after he lost his job. He decided yesterday that he wanted to try quitting. Increased tremors noted at home. Transient chest pain, chronic dry cough symptoms. No SOB. Watery diarrhea in the last few days without abdominal pain. No fever, no chills. Medical History as above Surgical History : Tonsillectomy Family History : DM, asthma, prostate cancer, stroke Personal/Social history : Non-smoker, alcohol abuse, currently unemployed Allergies Allergy/AdvReac Type Severity Reaction Status Date / Time aspirin AdvReac Unknown THINS Verified 07/03/23 18:38 BLOOD, NOSE BLEEDS Home Medications Medication Instructions Recorded Confirmed Type buspirone 5 mg tablet 5 mg PO AMHS 06/10/18 07/20/23 History nadolol 20 mg tablet 20 mg PO QPM 06/10/18 07/20/23 History potassium chloride 10 mEq 10 meq PO QAM 06/10/18 07/20/23 History tablet,extended release ursodiol 300 mg capsule 300 mg PO BID 06/10/18 07/20/23 History zolpidem 5 mg tablet (Ambien) 5 mg PO HS PRN Sleep 06/10/18 07/20/23 History furosemide 20 mg tablet 20 mg PO QAM 11/14/22 07/20/23 History spironolactone 25 mg tablet 25 mg PO QAM 11/14/22 07/20/23 History citalopram 10 mg tablet 10 mg PO QAM 04/09/23 07/20/23 History folic acid 1 mg tablet 1 mg PO QAM #30 tabs 06/06/23 07/20/23 Rx thiamine HCl (vitamin B1) 100 mg 100 mg PO QAM #30 tabs 06/06/23 07/20/23 Rx tablet cyanocobalamin (vitamin B-12) 250 250 mcg PO QAM 07/03/23 07/20/23 History mcg tablet (Vitamin B-12) gabapentin 300 mg capsule 300 mg PO TID 07/03/23 07/20/23 History pantoprazole 20 mg tablet,delayed 20 mg PO QAM 07/03/23 07/20/23 History release Past Med/Surg History Medical History Encounter for pre-operative examination Depression Anxiety Thrombocytopenia Ascites Portal hypertension Esophageal varices Alcoholic cirrhosis of liver History of macrocytic anemia History of alcohol abuse Surgical History History of esophagogastroduodenoscopy (EGD) Including procedures for esophageal varices banding History of tonsillectomy Family History Mother Diabetes Father Prostate cancer Other No family history of adverse response to anesthesia Social History Smoking Status: Never smoker Tobacco Type: Smokeless Tobacco (Dip or Chew) Second Hand Exposure: No; Do You Dip or Chew Tobacco: Yes; Hx Alcohol Use: Yes Alcohol type: hard liquor Hx Substance Use: No Preferred Language: Macedonian Communication Ability: Effective 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 Beliefs That Will Affect Care: None Current Living Situation: Alone Current Living Situation Comment: lives with parents Feels Safe at Home: Yes Assistive Devices: None Review of Systems Review of Systems: As per HPI, all other systems reviewed and negative Physical Exam Physical Exam: GENERAL: pleasant, tremulous, obese, no respiratory distress SKIN: Normal color, warm HEENT: [place] palpebral conjunctivae, no ptosis, dry buccal mucosa NECK : Supple, no tenderness CHEST : CTA, no tenderness HEART : RRR, no obvious murmurs ABDOMEN: Some distention, no tenderness EXTREMITIES : No LE swelling/tenderness, no other conspicuous deformities noted NEUROLOGIC : Coherent, no facial asymmetry, tremulous, no other gross focality Results & Data Results & Data Vital Signs (Past 12 Hours) Vital Signs Temp Pulse Pulse Resp BP BP Pulse Ox 07/20/23 05:30 63 13 125/78 96 07/20/23 05:27 72 07/20/23 05:00 70 19 121/77 99 07/20/23 04:30 76 21 129/70 98 07/20/23 04:00 65 16 135/85 97 07/20/23 03:31 96 H 21 136/77 95 07/20/23 03:00 72 16 127/84 96 07/20/23 02:30 74 14 136/86 97 07/20/23 02:00 96 H 27 H 07/20/23 01:55 98 H 21 118/71 94 07/20/23 01:30 94 H 12 122/79 88 L 07/20/23 01:26 94 H 07/20/23 00:34 97 H 15 95 07/20/23 00:29 95 H 15 128/101 H 94 07/19/23 23:54 36.8 C 112 H 18 133/88 95 O2 Del Method 07/20/23 05:30 07/20/23 05:27 07/20/23 05:00 07/20/23 04:30 07/20/23 04:00 07/20/23 03:31 07/20/23 03:00 07/20/23 02:30 07/20/23 02:00 07/20/23 01:55 07/20/23 01:30 07/20/23 01:26 07/20/23 00:34 Room Air 07/20/23 00:29 Room Air 07/19/23 23:54 Room Air Laboratory Results Laboratory Results WBC 7.42 K/ul (4.8-10.8) 07/20/23 00:25 RBC 5.32 M/uL (4.70-6.10) 07/20/23 00:25 Hgb 17.6 g/dl (14.0-18.0) 07/20/23 00:25 Hct 50.8 % (42.0-52.0) 07/20/23 00:25 MCV 95.5 fL (80.0-100.0) 07/20/23 00:25 MCH 33.1 pg (25.0-34.0) 07/20/23 00:25 MCHC 34.6 g/dL (32.0-36.0) 07/20/23 00:25 RDW Std Deviation 43.1 fL (36.4-46.3) 07/20/23 00: RDW Coeff of Hang 12.2 % (11.5-14.5) 07/20/23 00:25 Plt Count 198 K/uL (130-400) 07/20/23 00:25 MPV 9.6 fL (9.4-12.4) 07/20/23 00:25 Immature Gran % (Auto) 0.4 % 07/20/23 00:25 Neut % (Auto) 51.1 % 07/20/23 00:25 Lymph % (Auto) 28.7 % 07/20/23 00:25 [place] % (Auto) 10.0 % 07/20/23 00:25 Eos % (Auto) 7.8 % 07/20/23 00:25 Baso % (Auto) 2.0 % 07/20/23 00:25 Neut # (Auto) 3.79 K/uL (1.40-6.50) 07/20/23 00:25 Lymph # (Auto) 2.13 K/uL (1.20-3.40) 07/20/23 00:25 [place] # (Auto) 0.74 K/uL (0.11-0.59) H 07/20/23 00:25 Eos # (Auto) 0.58 K/uL (0.00-0.50) H 07/20/23 00:25 Baso # (Auto) 0.15 K/uL (0.00-0.20) 07/20/23 00:25 Immature Gran # (Auto) 0.03 K/uL (0.01-0.20) 07/20/23 00:25 PT 12.6 Seconds (9.0-12.0) H 07/20/23 00:25 INR 1.2 (0.9-1.1) H 07/20/23 00:25 Sodium 141 mmol/L (136-145) 07/20/23 00:25 Potassium 3.1 mmol/L (3.5-5.1) L 07/20/23 00:25 Chloride 105 mmol/L (98-107) 07/20/23 00:25 Carbon Dioxide 22 mmol/L (21-32) 07/20/23 00:25 Anion Gap 14 (3-11) H 07/20/23 00:25 BUN 2 mg/dl (6-23) L 07/20/23 00:25 Creatinine 0.70 mg/dl (0.6-1.4) 07/20/23 00:25 Est Cr Clr Drug Dosing 123.4 ml/min 07/20/23 00:25 Est GFR ( Amer) 128.4 ml/min 07/20/23 00:25 Est GFR (Non-Af Amer) 110.8 ml/min 07/20/23 00:25 BUN/Creatinine Ratio 2.9 (10-20) L 07/20/23 00:25 Glucose 136 mg/dl (70-99(Fasting)) H 07/20/23 00:25 Calcium 8.7 mg/dl (8.6-10.3) 07/20/23 00:25 Magnesium 1.6 mg/dl (1.7-2.4) L 07/20/23 00:25 Total Bilirubin 1.1 mg/dl (0.2-1.0) H 07/20/23 00:25 AST 326 U/L (13-39) H 07/20/23 00:25 ALT 240 U/L (7-52) H 07/20/23 00:25 Alkaline Phosphatase 88 U/L (34-104) 07/20/23 00:25 Troponin I High Sens 4.5 pg/ml (0-20) 07/20/23 00:25 Total Protein 8.8 gm/dl (6.0-8.3) H 07/20/23 00:25 Albumin 4.1 gm/dl (3.4-5.0) 07/20/23 00:25 Globulin 4.7 gm/dl (2.5-4.0) H 07/20/23 00:25 Albumin/Globulin Ratio 0.9 (0.9-2) 07/20/23 00:25 Lipase 51 U/L (11-82) 07/20/23 00:25 Urine Color Yellow 07/20/23 03:36 Urine Appearance Clear (Clear) 07/20/23 03:36 Urine pH 7.5 (4.5-7.5) 07/20/23 03:36 Ur Specific [place] 1.008 (1.000-1.030) 07/20/23 03:36 Urine Protein Trace (Negative) H 07/20/23 03:36 Urine Glucose (UA) Negative (Negative) 07/20/23 03:36 Urine Ketones Negative (Negative) 07/20/23 03:36 Urine Blood Negative (Negative) 07/20/23 03:36 Urine Nitrite Negative (Negative) 07/20/23 03:36 Urine Bilirubin Negative (Negative) 07/20/23 03:36 Urine Urobilinogen Negative (Negative) 07/20/23 03:36 Ur Leukocyte Esterase Negative (Negative) 07/20/23 03:36 Urine WBC (Auto) 0-5 /hpf (0-5) 07/20/23 03:36 Urine RBC (Auto) 0-2 /hpf (0-2) 07/20/23 03:36 U Hyaline Cast (Auto) 3-5 /lpf (0-2) H 07/20/23 03:36 U Epithel Cells (Auto) 0-2 /hpf (0-2) 07/20/23 03:36 Urine Bacteria (Auto) None Seen (None Seen) 07/20/23 03:36 Urine Opiates Screen Neg (Neg) 07/20/23 03:36 Ur Methadone, Qual Neg (Neg) 07/20/23 03:36 Urine Barbiturates Neg (Neg) 07/20/23 03:36 Ur Phencyclidine (PCP) Neg (Neg) 07/20/23 03:36 U Amphetamin/Meth Scrn Neg (Neg) 07/20/23 03:36 MDMA (Ecstasy) Screen Neg (Neg) 07/20/23 03:36 U Benzodiazepines Scrn Pos (Neg) H 07/20/23 03:36 Ur Cocaine Metabolite Neg (Neg) 07/20/23 03:36 U Marijuana (THC) Screen Neg (Neg) 07/20/23 03:36 Ethyl Alcohol mg/dL 314.6 mg/dl (<10.0) H 07/20/23 00:25 Diagnostic Findings Chest x-ray as per my interpretation no congestion EKG as per my interpretation : Rate 95, NSR, normal axis, T wave abnormalities anteroseptal leads
--- NOTE | 2023-07-20 07:24 | XRay Report ---
XR chest 1V portable CLINICAL HISTORY: low o2 COMPARISON STUDY: Chest radiograph July 03, 2023. FINDINGS: Lung volumes are normal. Lungs are clear. There is no pneumothorax or pleural effusion. Car diac size is normal. Mediastinal contours are normal. There is no evidence for pulmonary edema. IMPRESSION: No acute cardiopulmonary findings. ACT 112: Negative or not required by law. Electronically signed by: Fidel Krishnamurthy M.D. 07/20/2023 7:22 AM
[2023-07-20] MEDS ORDERED: ACETAMINOPHEN 500 MG TAB PO PRN (07:41)
[2023-07-20] MEDS ORDERED: Ativan IV Alcohol Withdrawal--Active Protocol IV PRN (07:42)
[2023-07-20] MEDS ORDERED: chlordiazePOXIDE ALCOHOL WITHDRAWL 25MG PO STA (07:42)
[2023-07-20] MEDS ORDERED: LORazepam 3 MG in SYRINGE 1.5 ML IV PRN (07:42)
[2023-07-20] MEDS: LORazepam 2 MG in SYRINGE 1 ML IV PRN (08:33)
[2023-07-20] MEDS: chlordiazePOXIDE HCl 25 MG CAP PO SCH (09:51)
[2023-07-20] MEDS: POTASSIUM CHLORIDE PWD 20 MEQ PACK PO STA (12:19)
[2023-07-20] MEDS: GABAPENTIN 600 MG TAB PO STA (12:29)
[2023-07-20] MEDS ORDERED: ZOLPIDEM TARTRATE 5 MG TAB PO PRN (13:08)
--- NOTE | 2023-07-20 13:45 | Communication Note ---
Date of Service: July 20, 2023 Patient was seen and examined at bedside. 47-year-old male with past med history significant for pancreatic cyst, secondary esophageal varices without bleeding, alcoholic cirrhosis of liver with ascites, chronic cholecystitis, coagulopathy, macrocytic anemia, ongoing alcoholism/dependence came in with detoxification. 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 He tried quitting at home but was with increased tremors and hence presented to the ED. He denies any fever or chills. He is being managed for the following Alcohol use disorder Alcohol withdrawal History of multiple admission with alcohol withdrawal. Reports drinking a bottle of vodka every day Blood alcohol level of 300s on admission -Started on Librium taper with as needed Ativan. Continue -Folic acid, thiamine -hold Librium if sleeping/lethargic. -Telemetry monitoring, LARISA S protocol Alcoholic hepatitis: Good prognosis with computed Madrey DF score of 3.9 points. follow LFT. Loose stool: Reports improving in frequency, 1 loose stool today. C. difficile has been sent/remains uncollected. Alcoholic cirrhosis of liver with ascites Esophageal varices Continue home nadolol and Protonix. Lasix and Aldactone on hold due to loose stool/concern of dehydration at presentation. resume as soon as able. Monitor for volume overload f/u w/ hepatology on dc. Gallstones Chronic cholecystitis on ursodiol DVT prophylaxis: SCDs as patient has thrombocytopenia. Disposition: Med/tele Full code
[2023-07-20] MEDS: PROMETHAZINE HCL 6.25 MG in SODIUM CHLORIDE 0.9% 50 ML IV PRN (15:32)
[2023-07-20] MEDS: busPIRone 5 MG TAB PO SCH (15:32)
[2023-07-20] MEDS: CITALOPRAM 20 MG TAB PO SCH (15:32)
[2023-07-20] MEDS: GABAPENTIN 300 MG CAP PO SCH (15:32)
[2023-07-20] MEDS: ursodioL 300 MG CAP PO SCH (15:32)
[2023-07-20] MEDS: nadoloL 40 MG TAB PO SCH (20:54)
[2023-07-20] MEDS: LORazepam 1 MG in SYRINGE 0.5 ML IV PRN (20:57)
[2023-07-21] MEDS: LOPERAMIDE HCL 2 MG CAP PO PRN (05:45)
--- NOTE | 2023-07-21 05:50 | Electrocardiogram Report ---
Test Reason : Blood Pressure : / mmHG Vent. Rate : 094 BPM Atrial Rate : 094 BPM P-R Int : 146 ms QRS Dur : 096 ms QT Int : 384 ms P-R-T Axes : 048 066 039 degrees QTc Int : 480 ms Normal sinus rhythm Diffuse Nonspecific ST abnormality Abnormal ECG When compared with ECG of 06-JUL-2023 06:08, ST abnormality is worse Confirmed by Dilip Jones ([id number]) on 07/21/2023 5:50:28 AM Referred By: REFERRED SELF Confirmed By:Dilip Jones
[2023-07-21 07:26] LABS: Hematocrit (blood only) 42.2 % (42.0-52.0); Hemoglobin 14.4 g/dl (14.0-18.0); Mean Corpuscular Hemoglobin 33.2 pg (25.0-34.0); Mean Corpuscular Hgb Conc 34.1 g/dL (32.0-36.0); Mean Corpuscular Volume 97.2 fL (80.0-100.0); RDW Coefficient of Variation 12.2 % (11.5-14.5); RDW Standard Deviation 43.6 fL (36.4-46.3); Red Blood Count 4.34 M/uL (4.70-6.10); White Blood Count 4.21 K/ul (4.8-10.8)
[2023-07-21 07:39] LABS: Mean Platelet Volume 10.2 fL (9.4-12.4); Platelet Count 99 K/uL (130-400)
[2023-07-21 07:42] LABS: Basophils # (auto) 0.04 K/uL (0.00-0.20); Eosinophils # (auto) 0.31 K/uL (0.00-0.50); Eosinophils % (auto) 7.4 %; Immature Granulocytes # (auto) 0.01 K/uL (0.01-0.20); Immature Granulocytes % (auto) 0.2 %; Lymphocytes # (auto) 1.05 K/uL (1.20-3.40); Lymphocytes % (auto) 24.9 %; Monocytes # (auto) 0.33 K/uL (0.11-0.59); Monocytes % (auto) 7.8 %; Neutrophils # (auto) 2.47 K/uL (1.40-6.50); Neutrophils % (auto) 58.7 %; Platelet Estimate Decreased (Normal); Polychromasia 1+
[2023-07-21 07:49] LABS: Albumin Globulin Ratio 0.9 (0.9-2); Albumin Level 3.2 gm/dl (3.4-5.0); BUN Creatinine Ratio 7.6 (10-20); Bilirubin,Total 1.9 mg/dl (0.2-1.0); Creatinine Clr Calc Pharmacy 130.2 ml/min; Est GFR (African American) 131.6 ml/min; Est GFR (Non-African American) 113.5 ml/min; Globulin 3.5 gm/dl (2.5-4.0); Magnesium 1.2 mg/dl (1.7-2.4); Phosphorus 2.4 mg/dl (2.5-4.9); Potassium 3.4 mmol/L (3.5-5.1); Total Protein 6.7 gm/dl (6.0-8.3)
[2023-07-21] MEDS: CYANOCOBALAMIN (B-12) 500 MCG TABLET PO SCH (08:23)
[2023-07-21] MEDS: FOLIC ACID 1 MG TAB PO SCH (08:23)
[2023-07-21] MEDS: POTASSIUM CHLORIDE CRTAB 20 MEQ TABCR PO SCH (08:24)
[2023-07-21] MEDS: THIAMINE HCL 100 MG TAB PO SCH (08:24)
[2023-07-21] MEDS: PANTOprazole 40 MG TAB PO SCH (08:24)
[2023-07-21] MEDS: POTASSIUM CHLORIDE CRTAB 20 MEQ TABCR PO STA (08:54)
[2023-07-21] MEDS: chlordiazePOXIDE HCl 25 MG CAP PO SCH (09:30)
--- NOTE | 2023-07-21 14:07 | Hospitalist Progress Note ---
Date of Service July 21, 2023 Assessment & Plan (1) Alcohol withdrawal: Plan 47-year-old male with past med history significant for pancreatic cyst, secondary esophageal varices without bleeding, alcoholic cirrhosis of liver with ascites, chronic cholecystitis, coagulopathy, macrocytic anemia, ongoing alcoholism/dependence came in with detoxification. 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 He tried quitting at home but was with increased tremors and hence presented to the ED. He denies any fever or chills. He is being managed for the following Alcohol use disorder Alcohol withdrawal History of multiple admission with alcohol withdrawal. Reports drinking a bottle of vodka every day Blood alcohol level of 300s on admission -Started on Librium taper with as needed Ativan. Continue -Folic acid, thiamine -hold Librium if sleeping/lethargic. -Telemetry monitoring, LARISA S protocol -needing multiple doses of as needed Ativan Alcoholic hepatitis: Good prognosis with computed Madrey DF score of 3.9 points at presentation. AST and ALT downtrending. Follow LFT. Loose stool: Reports multiple loose stool. C. difficile is negative. Loperamide and psyllium fiber. Patient with no abdominal, patient afebrile. Alcoholic cirrhosis of liver with ascites Esophageal varices Continue home nadolol and Protonix. Lasix and Aldactone on hold due to loose stool/concern of dehydration at presentation. resume as soon as able/When loose stool improves Monitor for volume overload f/u w/ hepatology on dc. Gallstones Chronic cholecystitis on ursodiol DVT prophylaxis: Heparin subcu. Disposition: Med/tele Full code Admission and Anticipated Discharge Date Admission Date: July 20, 2023 Subjective Patient was seen and examined at bedside. Patient was lying in bed, on room air, NAD,, resting comfortably. Patient reports multiple loose stools ongoing yesterday and today. C. difficile is negative. No abdominal pain. No fever. Continue with loperamide as needed. Will add psyllium fiber to follow-up the stool. Patient needing multiple doses of as needed Ativan. Physical Exam Physical Exam: GENERAL: pleasant, tremulous, obese, no respiratory distress SKIN: Normal color, warm HEENT: [place] palpebral conjunctivae, no ptosis, moist buccal mucosa NECK : Supple, no tenderness CHEST : CTA, no tenderness HEART : RRR, no obvious murmurs ABDOMEN: Some distention, no tenderness EXTREMITIES : No LE swelling/tenderness, no other conspicuous deformities noted NEUROLOGIC : Coherent, no facial asymmetry, tremulous, no other gross focality Results & Data Results & Data Vital Signs (Past 12 Hours) Vital Signs Temp Pulse Pulse Pulse Resp BP Pulse Ox 07/21/23 11:11 36.5 C 64 18 120/78 95 07/21/23 09:10 07/21/23 07:57 36.9 C 61 18 124/84 95 07/21/23 07:00 57 L 07/21/23 06:26 56 L 07/21/23 03:47 36.9 C 53 L 20 128/77 94 O2 Del Method 07/21/23 11:11 Room Air 07/21/23 09:10 Room Air 07/21/23 07:57 Room Air 07/21/23 07:00 07/21/23 06:26 07/21/23 03:47 Room Air
[2023-07-21] MEDS: ONDANSETRON INJ 2 MG/ML 2 ML VIAL IV ONE (14:19)
[2023-07-21] MEDS: PSYLLIUM or GUAR GUM FIBER 4GM PACKET PO SCH (15:07)
[2023-07-21] MEDS: oxyCODONE HCL IR 5 MG TAB (IMMEDIATE RELEASE) PO PRN (19:35)
[2023-07-21] MEDS: HEPARIN SOD 5,000 UNIT/0.5 ML VIAL SQ SCH (19:37)
[2023-07-22 07:11] LABS: Hematocrit (blood only) 44.5 % (42.0-52.0); Hemoglobin 14.7 g/dl (14.0-18.0); Mean Corpuscular Hemoglobin 32.8 pg (25.0-34.0); Mean Corpuscular Volume 99.3 fL (80.0-100.0); Mean Platelet Volume 10.6 fL (9.4-12.4); Platelet Count 94 K/uL (130-400); RDW Coefficient of Variation 12.4 % (11.5-14.5); RDW Standard Deviation 45.1 fL (36.4-46.3); Red Blood Count 4.48 M/uL (4.70-6.10); White Blood Count 4.48 K/ul (4.8-10.8)
[2023-07-22 07:32] LABS: Albumin Level 3.2 gm/dl (3.4-5.0); BUN Creatinine Ratio 8.1 (10-20); Bilirubin Direct 0.7 mg/dl (0-0.2); Bilirubin,Total 1.6 mg/dl (0.2-1.0); Calcium 8.5 mg/dl (8.6-10.3); Creatinine Clr Calc Pharmacy 116.6 ml/min; Est GFR (African American) 125.5 ml/min; Est GFR (Non-African American) 108.3 ml/min; Magnesium 1.2 mg/dl (1.7-2.4); Phosphorus 2.4 mg/dl (2.5-4.9); Potassium 3.6 mmol/L (3.5-5.1)
[2023-07-22] MEDS: MAGNESIUM SULFATE / D5W 1 GM/100 ML BAG IV SCH (08:07)
[2023-07-22] MEDS: POTASSIUM CHLORIDE CRTAB 20 MEQ TABCR PO STA (08:52)
[2023-07-22] MEDS: LIDOCAINE 5% 1 PATCH TD PRN (09:38)
--- NOTE | 2023-07-22 13:56 | Hospitalist Progress Note ---
Date of Service July 22, 2023 Assessment & Plan (1) Alcohol withdrawal: Plan 47-year-old male with past med history significant for pancreatic cyst, secondary esophageal varices without bleeding, alcoholic cirrhosis of liver with ascites, chronic cholecystitis, coagulopathy, macrocytic anemia, ongoing alcoholism/dependence came in with detoxification. 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 He tried quitting at home but was with increased tremors and hence presented to the ED. He denies any fever or chills. He is being managed for the following Alcohol use disorder Alcohol withdrawal History of multiple admission with alcohol withdrawal. Reports drinking a bottle of vodka every day Blood alcohol level of 300s on admission -Started on Librium taper with as needed Ativan. Continue -Folic acid, thiamine -hold Librium if sleeping/lethargic. -Telemetry monitoring, LARISA S protocol -needing multiple doses of as needed Ativan Alcoholic hepatitis: Good prognosis with computed Madrey DF score of 3.9 points at presentation. AST and ALT today up trended. Follow LFT. Consider GI/US liver if further uptrending. Loose stool: Improved. C. difficile was negative. Loperamide and psyllium fiber. Patient with no abdominal pain, patient afebrile. Alcoholic cirrhosis of liver with ascites Esophageal varices Continue home nadolol and Protonix. resume Lasix and Aldactone . Monitor for volume overload f/u w/ hepatology on dc. Gallstones Chronic cholecystitis on ursodiol DVT prophylaxis: Heparin subcu. Disposition: Med/tele Full code Admission and Anticipated Discharge Date Admission Date: July 20, 2023 Subjective Patient was seen and examined at bedside. Patient was lying in bed, on room air, NAD,, resting comfortably. Patient reports improvement in the consistency of his stool. No abdominal pain. No fever. Reports eating okay. Patient needing multiple doses of as needed Ativan. Physical Exam Physical Exam: GENERAL: pleasant, tremulous, obese, no respiratory distress SKIN: Normal color, warm HEENT: [place] palpebral conjunctivae, no ptosis, moist buccal mucosa NECK : Supple, no tenderness CHEST : CTA, no tenderness HEART : RRR, no obvious murmurs ABDOMEN: Some distention, no tenderness EXTREMITIES : No LE swelling/tenderness, no other conspicuous deformities noted NEUROLOGIC : Coherent, no facial asymmetry, tremulous, no other gross focality Results & Data Results & Data Vital Signs (Past 12 Hours) Vital Signs Temp Pulse Pulse Resp BP Pulse Ox O2 Del Method 07/22/23 11:55 36.6 C 63 18 126/78 95 Room Air 07/22/23 08:07 Room Air 07/22/23 08:07 37.1 C 88 18 129/84 94 Room Air 07/22/23 07:00 73 07/22/23 03:46 36.6 C 69 18 146/87 H 97 Room Air
[2023-07-22 21:22] LABS: 7-Aminoclonaz, Confirm NEGATIVE ng/mL (<25); Hydro-Alp Ur, GC/MS NEGATIVE ng/mL (<25); Hydroxyethylflurazepam, Conf NEGATIVE ng/mL (<50); Hydroxymidazolam Ur, GC/MS NEGATIVE ng/mL (<50); Hydroxytriazolam NEGATIVE ng/mL (<50); Lorazepam, Ur GC/MS NEGATIVE ng/mL (<50); Nordiazepam, Confirm NEGATIVE ng/mL (<50); Oxazepam Ur, GC/MS 57 ng/mL (<50); Temazepam, Confirm NEGATIVE ng/mL (<50)
[2023-07-23 07:43] LABS: Hematocrit (blood only) 51.2 % (42.0-52.0); Hemoglobin 16.4 g/dl (14.0-18.0); Mean Corpuscular Hemoglobin 32.6 pg (25.0-34.0); Mean Corpuscular Volume 101.8 fL (80.0-100.0); Mean Platelet Volume 10.5 fL (9.4-12.4); Platelet Count 133 K/uL (130-400); RDW Coefficient of Variation 12.5 % (11.5-14.5); RDW Standard Deviation 46.6 fL (36.4-46.3); Red Blood Count 5.03 M/uL (4.70-6.10); White Blood Count 8.26 K/ul (4.8-10.8)
[2023-07-23 07:49] LABS: Albumin Globulin Ratio 0.8 (0.9-2); Albumin Level 3.6 gm/dl (3.4-5.0); BUN Creatinine Ratio 7.5 (10-20); Bilirubin,Total 1.5 mg/dl (0.2-1.0); Creatinine Clr Calc Pharmacy 107.4 ml/min; Est GFR (African American) 121.6 ml/min; Est GFR (Non-African American) 104.9 ml/min; Globulin 4.4 gm/dl (2.5-4.0); Magnesium 1.6 mg/dl (1.7-2.4); Phosphorus 3.2 mg/dl (2.5-4.9); Potassium 4.1 mmol/L (3.5-5.1)
[2023-07-23] MEDS: MAGNESIUM SULFATE / D5W 1 GM/100 ML BAG IV SCH (09:03)
--- NOTE | 2023-07-23 11:15 | Ultrasound Report ---
ABDOMINAL ULTRASOUND, RIGHT UPPER QUADRANT HISTORY: Acute right upper quadrant abdominal pain lft uptrending. COMPARISON: CT 04/17/2023 FINDINGS: Pancreas: The pancreas is mostly obscured by bowel gas. Liver: Cirrhosis with hepatic steatosis redemonstrated. No discrete hepatic mass identified. No ascit es seen. The liver measures 18 cm in length. Gallbladder: No gallbladder wall thickening. Previously noted gallstones are not seen by ultrasound. CBD: Not well visualized. Right kidney: No hydronephrosis. IMPRESSION: 1. The previously noted cholelithiasis seen on the 04/17/2023 CT exam are not visualized by ultrasound . No sonographic evidence of acute cholecystitis on today's study. 2. Cirrhosis with hepatic steatosis redemonstrated. ACT 112: Negative or not required by law. Electronically signed by: Jhonny Fletcher M.D. 07/23/2023 11:14 AM
[2023-07-23] MEDS: FUROSEMIDE 20 MG TAB PO SCH (11:45)
[2023-07-23] MEDS: SPIRONOLACTONE 25 MG TAB PO SCH (11:45)
--- NOTE | 2023-07-23 12:20 | Gastrointestinal Consultation ---
Date of Consultation July 23, 2023 Assessment & Plan (1) Alcoholic cirrhosis of liver: (2) Transaminitis: Plan No acute findings on liver imaging. Transaminitis likely is due to recent excessive alcohol consumption on top of cirrhosis. Continue to monitor LFTs. Will need continued outpatient follow-up with Mónica KAY for his ongoing cirrhosis management for which he sees Anatoliy EMERY. Supervising Physician Co-Signing Physician Notes Agree with HARSHAD Umanzor as above Interviewed and examined patient and agree with above Abd: Soft, NT, ND, +BS Continue current therapy and supportive care Will continue to monitor for signs of withdrawal I asked patient whether he is interested in inpatient/outpatient rehab and he declined. History of Present Illness Reason for Consultation: Elevated LFTs Attending Physician: Randell Davies MD History of Present Illness Patient is a 47 yo male with history of alcohol abuse as well as choledocholithiasis who underwent an ERCP in March 2023 with Mónica KAY. GI has been consulted due to elevated LFTs. Patient's LFTs are typically elevated at baseline due to his alcoholic cirrhosis. He presented to the hospital with a desire to detox from alcohol. He drinks a fifth of liquor daily and recently lost his job. He noted tremors at home prompting him to seek help with withdrawal. A liver US shows cirrhosis, but no new acute liver/biliary issues. Mother of liver cancer. He notes jaundice prior to presenting to the hospital. This has improved. LFTs at present are as follows: T Bili 1.5, AST 403, ALT 198. US does not show any acute issues with stones--patient did have an ERCP for choledocholithiasis in March with Mónica KAY. Allergies Allergy/AdvReac Type Severity Reaction Status Date / Time aspirin AdvReac Unknown THINS Verified 07/03/23 18:38 BLOOD, NOSE BLEEDS Home Medications Medication Instructions Recorded Confirmed Type buspirone 5 mg tablet 5 mg PO AMHS 06/10/18 07/20/23 History nadolol 20 mg tablet 20 mg PO QPM 06/10/18 07/20/23 History potassium chloride 10 mEq 10 meq PO QAM 06/10/18 07/20/23 History tablet,extended release ursodiol 300 mg capsule 300 mg PO BID 06/10/18 07/20/23 History zolpidem 5 mg tablet (Ambien) 5 mg PO HS PRN Sleep 06/10/18 07/20/23 History furosemide 20 mg tablet 20 mg PO QAM 11/14/22 07/20/23 History spironolactone 25 mg tablet 25 mg PO QAM 11/14/22 07/20/23 History citalopram 10 mg tablet 10 mg PO QAM 04/09/23 07/20/23 History folic acid 1 mg tablet 1 mg PO QAM #30 tabs 06/06/23 07/20/23 Rx thiamine HCl (vitamin B1) 100 mg 100 mg PO QAM #30 tabs 06/06/23 07/20/23 Rx tablet cyanocobalamin (vitamin B-12) 250 250 mcg PO QAM 07/03/23 07/20/23 History mcg tablet (Vitamin B-12) gabapentin 300 mg capsule 300 mg PO TID 07/03/23 07/20/23 History pantoprazole 20 mg tablet,delayed 20 mg PO QAM 07/03/23 07/20/23 History release Patient History Medical History Encounter for pre-operative examination Depression Anxiety Thrombocytopenia Ascites Portal hypertension Esophageal varices Alcoholic cirrhosis of liver History of macrocytic anemia History of alcohol abuse Surgical History History of esophagogastroduodenoscopy (EGD) Including procedures for esophageal varices banding History of tonsillectomy Family History Mother Diabetes Father Prostate cancer Other No family history of adverse response to anesthesia Social History Smoking Status: Never smoker Tobacco Type: Smokeless Tobacco (Dip or Chew) Second Hand Exposure: No; Do You Dip or Chew Tobacco: Yes; Tobacco Cessation Education Requested by Patient: No Hx Alcohol Use: Yes Alcohol type: hard liquor Hx Substance Use: No Preferred Language: [place] Communication 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: 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 Beliefs That Will Affect Care: None Current Living Situation: Alone Current Living Situation Comment: lives with parents Feels Safe at Home: Yes Safety Concerns: Feels Safe At This Time Assistive Devices: None Review of Systems Constitutional: no fever and no chills Respiratory: no cough and no dyspnea Cardiovascular: no chest pain Gastrointestinal: no abdominal pain Physical Exam Constitutional: well developed Respiratory: normal respiratory effort Gastrointestinal (Abdomen): normal bowel sounds, soft, nontender, no hepatosplenomegaly Psychiatric: Orientation: alert and oriented x 3 Results & Data Vital Signs (Past 12 Hours) Vital Signs Temp Pulse Pulse Resp BP Pulse Ox O2 Del Method 07/23/23 11:26 36.5 C 72 18 125/76 97 Room Air 07/23/23 07:52 36.6 C 66 18 129/84 96 Room Air 07/23/23 07:14 68 07/23/23 03:28 36.7 C 59 L 18 120/79 96 Room Air 07/22/23 23:56 36.6 C 61 18 116/78 94 Room Air PG Care Time/CCT Total # of Minutes Spent Total Time Spent with Patient: Total time spent is greater than 50% in coordination of care (as documented) at patient's floor/unit and/or counseling patient: Coding Level of Care Code 85808 IN/OBS CONSULT LVL 4,60M Diagnoses Alcoholic cirrhosis of liver K70.30 Ascites presence: unspecified Transaminitis R74.01 (1) Alcoholic cirrhosis of liver Ascites presence: unspecified Qualified Code(s): K70.30 - Alcoholic cirrhosis of liver without ascites
[2023-07-23] MEDS: chlordiazePOXIDE HCl 5 MG CAP PO SCH (13:16)
--- NOTE | 2023-07-23 16:48 | Hospitalist Progress Note ---
Date of Service July 23, 2023 Assessment & Plan (1) Alcohol withdrawal: Plan 47-year-old male with past med history significant for pancreatic cyst, secondary esophageal varices without bleeding, alcoholic cirrhosis of liver with ascites, chronic cholecystitis, coagulopathy, macrocytic anemia, ongoing alcoholism/dependence came in with detoxification. Patient reports he started drinking again few days ago [employer] but now would like to get detoxified. He tried quitting at home but was with increased tremors and hence presented to the ED. He denies any fever or chills. He is being managed for the following Alcohol use disorder Alcohol withdrawal History of multiple admission with alcohol withdrawal. Reports drinking a bottle of vodka every day Blood alcohol level of 300s on admission -Started on Librium taper with as needed Ativan. Continue -Folic acid, thiamine -hold Librium if sleeping/lethargic. -Telemetry monitoring, LARISA S protocol Alcoholic hepatitis: Good prognosis with computed Madrey DF score of 3.9 points at presentation. AST and ALT today up trended. Follow LFT. Liver imaging reviewed, GI evaluated, appreciate recommendation. Loose stool: Improved. C. difficile was negative. Loperamide and psyllium fiber. Patient with no abdominal pain, patient afebrile. Alcoholic cirrhosis of liver with ascites Esophageal varices Continue home nadolol and Protonix. resume Lasix and Aldactone . Monitor for volume overload f/u w/ hepatology on dc. Gallstones Chronic cholecystitis on ursodiol DVT prophylaxis: Heparin subcu. Disposition: Med/tele Full code Admission and Anticipated Discharge Date Admission Date: July 20, 2023 Subjective Patient was seen and examined at bedside. Patient was lying in bed, on room air, NAD,, resting comfortably. Patient reports moving bowels okay. No abdominal pain. No fever. Reports eating okay. Physical Exam Physical Exam: GENERAL: pleasant, tremulous, obese, no respiratory distress SKIN: Normal color, warm HEENT: [place] palpebral conjunctivae, no ptosis, moist buccal mucosa NECK : Supple, no tenderness CHEST : CTA, no tenderness HEART : RRR, no obvious murmurs ABDOMEN: Some distention, no tenderness EXTREMITIES : No LE swelling/tenderness, no other conspicuous deformities noted NEUROLOGIC : Coherent, no facial asymmetry, tremulous, no other gross focality Results & Data Results & Data Vital Signs (Past 12 Hours) Vital Signs Temp Pulse Pulse Resp BP Pulse Ox O2 Del Method 07/23/23 16:08 36.6 C 57 L 20 111/76 98 Room Air 07/23/23 11:26 36.5 C 72 18 125/76 97 Room Air 07/23/23 07:52 36.6 C 66 18 129/84 96 Room Air 07/23/23 07:14 68
[2023-07-24 08:06] LABS: Hematocrit (blood only) 43.5 % (42.0-52.0); Hemoglobin 14.5 g/dl (14.0-18.0); Mean Corpuscular Hemoglobin 33.6 pg (25.0-34.0); Mean Corpuscular Hgb Conc 33.3 g/dL (32.0-36.0); Mean Corpuscular Volume 100.7 fL (80.0-100.0); Mean Platelet Volume 10.9 fL (9.4-12.4); Platelet Count 104 K/uL (130-400); RDW Coefficient of Variation 12.8 % (11.5-14.5); RDW Standard Deviation 47.7 fL (36.4-46.3); Red Blood Count 4.32 M/uL (4.70-6.10); White Blood Count 4.98 K/ul (4.8-10.8)
[2023-07-24 08:24] LABS: Albumin Globulin Ratio 0.9 (0.9-2); Albumin Level 3.3 gm/dl (3.4-5.0); BUN Creatinine Ratio 10.1 (10-20); Bilirubin,Total 1.3 mg/dl (0.2-1.0); Calcium 8.5 mg/dl (8.6-10.3); Creatinine Clr Calc Pharmacy 124.9 ml/min; Est GFR (African American) 129.2 ml/min; Est GFR (Non-African American) 111.5 ml/min; Globulin 3.7 gm/dl (2.5-4.0); Magnesium 1.6 mg/dl (1.7-2.4); Phosphorus 2.9 mg/dl (2.5-4.9); Potassium 3.9 mmol/L (3.5-5.1)
--- NOTE | 2023-07-24 13:12 | Gastroenterology Progress Note ---
Date of Service July 24, 2023 Assessment & Plan (1) Transaminitis: (2) Alcoholic hepatitis: (3) Alcoholic cirrhosis of liver: Plan DF<4. LFTs improving. INR improving. MELD 9. -Infectious hepatitis studies pending -Continue to monitor LFTs & INR for MELD purposes -Outpatient follow-up with Anatoliy Meza RUPERT for his cirrhosis -Alcohol rehab was advised on 07/23/23 and patient declined. Admission and Anticipated Discharge Date Admission Date: July 20, 2023 Supervising Physician Co-Signing Physician Notes Agree with HARSHAD Umanzor as above Interviewed and examined patient and agree with above Abd: Soft, NT, ND, +BS Continue current therapy and supportive care No plans for any invasive testing during this hospitalization Will need close outpatient followup Advised to avoid all alcohol as it is a known liver toxin. Subjective Patient is a 47 yo male with elevated LFTs/alcoholic hepatitis in the setting of chronic alcohol use in a cirrhotic. Today, his T bili is improved to 1.3. AST 328. ALT 172. Infectious hepatitis studies pending. No acute concerns. DF<4. Review of Systems Constitutional: no fever and no chills Gastrointestinal: no abdominal pain Physical Exam Constitutional: well developed Respiratory: normal respiratory effort Psychiatric: Orientation: alert and oriented x 3 Results & Data Results & Data Vital Signs (Past 12 Hours) Vital Signs Temp Pulse Pulse Resp BP Pulse Ox O2 Del Method 07/24/23 11:43 36.5 C 61 18 110/69 95 Room Air 07/24/23 09:39 Room Air 07/24/23 07:56 36.7 C 61 18 129/80 96 Room Air 07/24/23 07:17 65 07/24/23 03:38 36.5 C 52 L 16 101/63 94 Room Air PG Care Time/CCT Total # of Minutes Spent Total Time Spent with Patient: Total time spent is greater than 50% in coordination of care (as documented) at patient's floor/unit and/or counseling patient: Coding Level of Care Code 18426 SUB INP/OBS CARE 3/50MIN Diagnoses Transaminitis R74.01 Alcoholic hepatitis K70.10 Ascites presence: without ascites Alcoholic cirrhosis of liver K70.30 Ascites presence: unspecified (2) Alcoholic hepatitis Ascites presence: without ascites Qualified Code(s): K70.10 - Alcoholic hepatitis without ascites (3) Alcoholic cirrhosis of liver Ascites presence: unspecified Qualified Code(s): K70.30 - Alcoholic cirrhosis of liver without ascites
--- NOTE | 2023-07-24 15:25 | Hospitalist Progress Note ---
Date of Service July 24, 2023 Assessment & Plan (1) Alcohol withdrawal: Plan 47-year-old male with past med history significant for pancreatic cyst, secondary esophageal varices without bleeding, alcoholic cirrhosis of liver with ascites, chronic cholecystitis, coagulopathy, macrocytic anemia, ongoing alcoholism/dependence came in with detoxification. Patient reports he started drinking again few days ago [employer] but now would like to get detoxified. He tried quitting at home but was with increased tremors and hence presented to the ED. He denies any fever or chills. He is being managed for the following Alcohol use disorder Alcohol withdrawal History of multiple admission with alcohol withdrawal. Reports drinking a bottle of vodka every day Blood alcohol level of 300s on admission -s/p Librium taper with as needed Ativan. Continue -Pt w/ increased hand tremors today, he is not comfortable going home today. -Folic acid, thiamine -Telemetry monitoring, LARISA S protocol -Pt declines alc rehab. Alcoholic hepatitis: Good prognosis with computed Madrey DF score of 3.9 points at presentation. AST and ALT today improving. Follow LFT. Liver imaging reviewed, GI evaluated, appreciate recommendation. OP GI f/u. Loose stool: Improved. C. difficile was negative. Alcoholic cirrhosis of liver with ascites Esophageal varices Continue home nadolol and Protonix. resume Lasix and Aldactone . Monitor for volume overload f/u w/ hepatology on dc. Gallstones Chronic cholecystitis on ursodiol DVT prophylaxis: Heparin subcu. Disposition: Med/tele, likely dc tiara. f/u us venous ble doppler as pt complained b/l thigh pain (though his chronic/intermittent complaint). Full code Admission and Anticipated Discharge Date Admission Date: July 20, 2023 Subjective Patient was seen and examined at bedside. Patient was lying in bed, on room air, NAD, resting comfortably. Patient reports no BM for 3 days, would like bowel regimen, will give one time miralax, follow. No abdominal pain. No fever. Reports eating okay. Has increased hand tremors today, pt would like to go home tomorrow. Pt report b/l thigh pain, will get us doppler to ro dvt. Physical Exam Physical Exam: GENERAL: pleasant, tremulous, obese, no respiratory distress SKIN: Normal color, warm HEENT: [place] palpebral conjunctivae, no ptosis, moist buccal mucosa NECK : Supple, no tenderness CHEST : CTA, no tenderness HEART : RRR, no obvious murmurs ABDOMEN: Some distention, no tenderness EXTREMITIES : No LE swelling/tenderness, no other conspicuous deformities noted NEUROLOGIC : Coherent, no facial asymmetry, tremulous, no other gross focality Results & Data Results & Data Vital Signs (Past 12 Hours) Vital Signs Temp Pulse Pulse Resp BP Pulse Ox O2 Del Method 07/24/23 11:43 36.5 C 61 18 110/69 95 Room Air 07/24/23 09:39 Room Air 07/24/23 07:56 36.7 C 61 18 129/80 96 Room Air 07/24/23 07:17 65 07/24/23 03:38 36.5 C 52 L 16 101/63 94 Room Air
[2023-07-24] MEDS: MAGNESIUM SULFATE / D5W 1 GM/100 ML BAG IV SCH (15:53)
--- NOTE | 2023-07-25 01:05 | Ultrasound Report ---
Exam(s): US VENOUS BILATERAL LOWER EXTREMITIES EXAM: US Duplex Bilateral Lower Extremities Veins CLINICAL HISTORY: Reason for exam: b/l thigh pain, ro dvt. TECHNIQUE: Real-time duplex ultrasound scan of the bilateral lower extremity veins integrating B-mode two-dimensional vascular structure, Doppler spectral analysis, color flow Doppler imaging and compression. COMPARISON: 06/03/2023. FINDINGS: Right deep veins: Unremarkable. No DVT in the right common femoral, femoral, proximal deep femoral or popliteal veins. The veins demonstrate normal color flow, are normally compressible, with normal phasic flow and/or augmentation response. Right superficial veins: Unremarkable. No thrombus in the visualized right great saphenous vein. Left deep veins: Unremarkable. No DVT in the left common femoral, femoral, proximal deep femoral or popliteal veins. The veins demonstrate normal color flow, are normally compressible, with normal phasic flow and/or augmentation response. Left superficial veins: Unremarkable. No thrombus in the visualized left great saphenous vein. Soft tissues: No acute findings. No popliteal cyst. IMPRESSION: No ultrasonographic evidence of deep venous thrombosis involving bilateral lower extremities. Electronically signed by: Maria Eugenia Fregoso MD 07/25/23 01:04 AM
[2023-07-25 07:21] LABS: Albumin Globulin Ratio 0.8 (0.9-2); Albumin Level 3.3 gm/dl (3.4-5.0); BUN Creatinine Ratio 8.1 (10-20); Bilirubin,Total 1.2 mg/dl (0.2-1.0); Calcium 8.3 mg/dl (8.6-10.3); Est GFR (African American) 125.5 ml/min; Est GFR (Non-African American) 108.3 ml/min; Globulin 3.9 gm/dl (2.5-4.0); Potassium 4.1 mmol/L (3.5-5.1); Total Protein 7.2 gm/dl (6.0-8.3)
[2023-07-25 10:11] LABS: HBSAG NON-REACTIVE (NON-REACTIVE); Hepatitis A Antibody IgM NON-REACTIVE (NON-REACTIVE); Hepatitis B Core Antibody IgM NON-REACTIVE (NON-REACTIVE)
--- NOTE | 2023-07-25 15:21 | Discharge Summary ---
Date of Service July 25, 2023 Admission HPI Per Admitting Provider History obtained from patient and records. Medical history significant for alcoholic cirrhosis, history of esophageal varices, past history of alcohol withdrawal seizures, ongoing alcohol abuse. Recurrent admissions (almost monthly) since October 2022. Last confinement 2 weeks ago for alcohol withdrawal. Patient started drinking again 2 days ago after he lost his job. He decided yesterday that he wanted to try quitting. Increased tremors noted at home. Transient chest pain, chronic dry cough symptoms. No SOB. Watery diarrhea in the last few days without abdominal pain. No fever, no chills. Medical History as above Surgical History : Tonsillectomy Family History : DM, asthma, prostate cancer, stroke Personal/Social history : Non-smoker, alcohol abuse, currently unemployed Admission Exam Per Admitting Provider GENERAL: pleasant, tremulous, obese, no respiratory distress SKIN: Normal color, warm HEENT: [place] palpebral conjunctivae, no ptosis, dry buccal mucosa NECK : Supple, no tenderness CHEST : CTA, no tenderness HEART : RRR, no obvious murmurs ABDOMEN: Some distention, no tenderness EXTREMITIES : No LE swelling/tenderness, no other conspicuous deformities noted NEUROLOGIC : Coherent, no facial asymmetry, tremulous, no other gross focality Principal Diagnosis Alcohol use disorder Alcohol withdrawal Alcoholic hepatitis Discharge Exam Constitutional: Alert oriented x 3; no tremors. Respiratory: normal respiratory effort, lungs clear to auscultation, no wheeze, rales, rhonchi. Normal insp/exp effort, no accessory muscle use Cardiovascular: RRR, no murmur, no edema Vessels: no JVD or carotid bruit Chest: normal inspection of chest Abdomen: normal bowel sounds, soft, nontender, no hepatosplenomegaly Musculoskeletal: no cyanosis or clubbing, extremities motor strength 5/5 Skin: no rashes, warm and dry normal turgor Neurologic: PERRL, EOMI, accommodation nl, no face palsy, no dysarthria CN's II- XI intact bilaterally and moves all extremities Psychiatric: A+Ox3, euthymic affect Discharge Data Allergies Allergy/AdvReac Type Severity Reaction Status Date / Time aspirin AdvReac Unknown THINS Verified 07/03/23 18:38 BLOOD, NOSE BLEEDS Consultations 07/20/23 06:29 ED Decision to Admit Stat 07/23/23 07:58 Consult Gastroenterology Routine Ordered Studies 07/23/23 08:04 US liver Routine 07/24/23 15:20 US venous doppler LE BI Routine Hospital Course (1) Alcohol withdrawal: Plan 47-year-old male with past med history significant for pancreatic cyst, secondary esophageal varices without bleeding, alcoholic cirrhosis of liver with ascites, chronic cholecystitis, coagulopathy, macrocytic anemia, ongoing alcoholism/dependence came in with detoxification. Patient reports he started drinking again few days ago [employer] but now would like to get detoxified. He tried quitting at home but was with increased tremors and hence presented to the ED. He denies any fever or chills. He is being managed for the following Alcohol use disorder Alcohol withdrawal History of multiple admission with alcohol withdrawal. Reports drinking a bottle of vodka every day Blood alcohol level of 300s on admission During the hospitalization patient was treated with tapering dose of Librium and Ativan. At the time of the discharge, patient did not have any withdrawal signs or symptoms. He was alert oriented x 3. Alcoholic hepatitis: Good prognosis with computed Madrey DF score of 3.9 points at presentation. AST and ALT today improving. GI evaluated; recommended to stop drinking alcohol. Patient discharged home with instruction to follow-up with PCP and GI. All questions answered. Please note the above document was generated using voice recognition software. It may contain grammatical, syntax or spelling errors. Any formal questions or concerns about the content, text or information contained within the body of this dictation should be directly addressed to the provider for clarification Total Time Total Time Spent Total Time Spent (In Minutes): 34 Total Time Includes: Examination of the Patient, Discharge Planning, Medication Reconciliation, Communication With Other Providers and Other Discharge Plan Discharge Items Patient Disposition: Home - Self-Care Reason For Visit: etoh withdrawl Discharge Diagnosis: Alcohol withdrawal Alcohol use disorder Alcoholic hepatitis Alcoholic cirrhosis of liver with ascites Activity: Resume your previous activity Non-emergency contact: Primary Care Provider Call non-emergency contact if: you have any medication questions and your symptoms worsen Follow-up/Referrals: Michelle Borrego DO [Primary Care Provider] - (Date & Time 07/31/2023 8:20 AM Provider Allan Lepe MD Department Family Medicine [facility] ) Diet: Heart Healthy, Low Sodium (2gm) and Lactose Intolerant Addtl Attending Provider Instructions: Follow-up with your primary care physician within a week time and likely you will need labs CBC/CMP/magnesium/phosphorus. Strongly recommend against using any alcohol products in future. As discussed at the bedside, you will need close follow-up with your life sciences manager/liver physician as an outpatient. Take your medications as prescribed. Please make sure that you are able to get your medications today by calling your pharmacy before you leave the hospital so that your treatment continuity is not broken. Pending Studies at Discharge: No Stand-Alone Forms: [facility], Smoking Cessation Medications and DC Order Prescriptions: Continued buspirone 5 mg Tablet 5 mg PO AMHS potassium chloride 10 mEq Tablet Extended Release 10 meq PO QAM nadolol 20 mg Tablet 20 mg PO QPM ursodiol 300 mg Capsule 300 mg PO BID zolpidem [Ambien] 5 mg Tablet 5 mg PO HS PRN (Reason: Sleep) spironolactone 25 mg tablet 25 mg PO QAM furosemide 20 mg tablet 20 mg PO QAM citalopram 10 mg tablet 10 mg PO QAM thiamine HCl (vitamin B1) 100 mg Tablet 100 mg PO QAM Qty: 30 0RF folic acid 1 mg Tablet 1 mg PO QAM Qty: 30 0RF pantoprazole 20 mg tablet,delayed release (DR/EC) 20 mg PO QAM gabapentin 300 mg capsule 300 mg PO TID cyanocobalamin (vitamin B-12) [Vitamin B-12] 250 mcg tablet 250 mcg PO QAM Discharge Orders: Discharge Order (Routine); Ordered 07/25/23 Ordered By: Vlad Castañeda Admission Data Admit Date/Time: 07/20/23 07:40 Attending Provider: Vlad Castañeda Admit Provider: Srinivasan Mireles Primary Care Provider: Michelle Borrego Other Providers: Srinivasan Mireles; Deandre Fernandez Other Interventions: Discharge Summary Assessment (RN) Last Done: 07/25/23 10:40
== END 2023-07-25 13:10 | disposition home or self-care (01) | DRG 897 ==
LOC: ED 23:52 → EDINP 07-20 07:40 → SUATTDRO 07-20 07:40 → 2N 07-20 15:07
DX: F17.220 Nicotine dependence, chewing tobacco, uncomplicated; Z80.0 Family history of malignant neoplasm of digestive organs; K70.10 Alcoholic hepatitis without ascites; K70.31 Alcoholic cirrhosis of liver with ascites; E83.42 Hypomagnesemia; K81.1 Chronic cholecystitis; I85.10 Secondary esophageal varices without bleeding; E87.6 Hypokalemia; Z83.3 Family history of diabetes mellitus; K86.2 Cyst of pancreas; F10.239 Alcohol dependence with withdrawal, unspecified; F10.220 Alcohol dependence with intoxication, uncomplicated; R74.01 Elevation of levels of liver transaminase levels; Z88.6 Allergy status to analgesic agent

== ENCOUNTER 2023-08-01 16:36 | Inpatient (IN) ==
[2023-08-01 18:00] LABS: Basophils # (auto) 0.13 K/uL (0.00-0.20); Eosinophils # (auto) 0.43 K/uL (0.00-0.50); Eosinophils % (auto) 6.7 %; Hematocrit (blood only) 47.4 % (42.0-52.0); Hemoglobin 16.4 g/dl (14.0-18.0); Immature Granulocytes # (auto) 0.01 K/uL (0.01-0.20); Immature Granulocytes % (auto) 0.2 %; Lymphocytes # (auto) 1.85 K/uL (1.20-3.40); Lymphocytes % (auto) 28.7 %; Mean Corpuscular Hemoglobin 32.6 pg (25.0-34.0); Mean Corpuscular Hgb Conc 34.6 g/dL (32.0-36.0); Mean Corpuscular Volume 94.2 fL (80.0-100.0); Mean Platelet Volume 10.2 fL (9.4-12.4); Monocytes # (auto) 0.73 K/uL (0.11-0.59); Monocytes % (auto) 11.3 %; Neutrophils % (auto) 51.1 %; Platelet Count 170 K/uL (130-400); RDW Coefficient of Variation 12.1 % (11.5-14.5); RDW Standard Deviation 42.2 fL (36.4-46.3); Red Blood Count 5.03 M/uL (4.70-6.10); White Blood Count 6.45 K/ul (4.8-10.8)
[2023-08-01 18:06] LABS: Acetaminophen < 3 ug/ml (10-30); Salicylate < 3.0 mg/dl (3.0-30)
[2023-08-01 18:07] LABS: Alanine Aminotransferase 189 U/L (7-52); Albumin Globulin Ratio 0.9 (0.9-2); Albumin Level 3.8 gm/dl (3.4-5.0); Alkaline Phosphatase 67 U/L (34-104); Anion Gap 15 (3-11); Aspartate Aminotransferase 349 U/L (13-39); BUN Creatinine Ratio 13.2 (10-20); Blood Urea Nitrogen 7 mg/dl (6-23); Calcium 8.4 mg/dl (8.6-10.3); Carbon Dioxide 24 mmol/L (21-32); Chloride 106 mmol/L (98-107); Est GFR (Non-African American) 124.2 ml/min; Globulin 4.2 gm/dl (2.5-4.0); Glucose 88 mg/dl (70-99(Fasting)); Potassium 3.5 mmol/L (3.5-5.1); Sodium 145 mmol/L (136-145)
[2023-08-01 18:22] LABS: Thyroid Stimulating Hormone 0.969 uIu/ml (0.300-4.500)
[2023-08-01] MEDS: LORazepam 1 MG TAB SL STA (19:12)
--- NOTE | 2023-08-01 20:34 | Emergency Department Note ---
History of Present Illness General Chief complaint: Detox Request Stated complaint: ALCOHOL DETOX REQUEST Time Seen by Provider: 08/01/23 18:53 History of Present Illness Provider complaint: Alcohol withdrawal 47-year-old chronic alcoholic presents emergency department with father for concern for alcohol withdrawal. Patient states he feels like he is going through withdrawal again. Patient states he usually drinks a half 1/5 of vodka a day. Patient [place] any falls. No chest pain or difficulty breathing. Home Medications Medication Instructions Recorded Confirmed Type buspirone 5 mg tablet 5 mg PO AMHS 06/10/18 08/01/23 History nadolol 20 mg tablet 20 mg PO QPM 06/10/18 08/01/23 History potassium chloride 10 mEq 10 meq PO QAM 06/10/18 08/01/23 History tablet,extended release ursodiol 300 mg capsule 300 mg PO BID 06/10/18 08/01/23 History zolpidem 5 mg tablet (Ambien) 5 mg PO HS PRN Sleep 06/10/18 08/01/23 History furosemide 20 mg tablet 20 mg PO QAM 11/14/22 08/01/23 History spironolactone 25 mg tablet 25 mg PO QAM 11/14/22 08/01/23 History citalopram 10 mg tablet 10 mg PO QAM 04/09/23 08/01/23 History folic acid 1 mg tablet 1 mg PO QAM #30 tabs 06/06/23 08/01/23 Rx thiamine HCl (vitamin B1) 100 mg 100 mg PO QAM #30 tabs 06/06/23 08/01/23 Rx tablet cyanocobalamin (vitamin B-12) 250 250 mcg PO QAM 07/03/23 08/01/23 History mcg tablet (Vitamin B-12) gabapentin 300 mg capsule 300 mg PO TID 07/03/23 08/01/23 History pantoprazole 40 mg tablet,delayed 40 mg PO QAM 08/01/23 08/01/23 History release Allergies Allergy/AdvReac Type Severity Reaction Status Date / Time aspirin AdvReac Unknown THINS Verified 08/01/23 20:13 BLOOD, NOSE BLEEDS Past Med/Surg History Medical History Encounter for pre-operative examination Depression Anxiety Thrombocytopenia Ascites Portal hypertension Esophageal varices Alcoholic cirrhosis of liver History of macrocytic anemia History of alcohol abuse Surgical History History of esophagogastroduodenoscopy (EGD) Including procedures for esophageal varices banding History of tonsillectomy Family History Mother Diabetes Father Prostate cancer Other No family history of adverse response to anesthesia Social History Smoking Status: Never smoker Tobacco Type: Smokeless Tobacco (Dip or Chew) Second Hand Exposure: No; Do You Dip or Chew Tobacco: Yes; Hx Alcohol Use: Yes Alcohol type: hard liquor Hx Substance Use: No Preferred Language: German Communication Ability: Effective Fingernail Sculptor Required: No Beliefs That Will Affect Care: None Current Living Situation: Alone Current Living Situation Comment: lives with parents Feels Safe at Home: Yes Assistive Devices: None Physical Exam Vital Signs Vital Signs - 24 hr 08/01/23 16:50 08/01/23 19:03 08/01/23 19:08 Temperature 36.5 C Temperature Source Oral Pulse Rate 80 68 Pulse Rate [Femoral] Pulse Rhythm [Femoral] Pulse Strength [Femoral] Respiratory Rate 18 Respiratory Effort / Characteristics Non-Labored Spontaneous Respiratory Depth Normal Respiratory Pattern Blood Pressure 148/94 H Blood Pressure [Right Arm] Blood Pressure Mean 112 Blood Pressure Mean [Right Arm] Blood Pressure Position [Right Arm] Pulse Oximetry 95 Oxygen Delivery Method Room Air Room Air Sepsis Recent Fever Within 48 Hours No Sepsis New/Unexplained Change in Mental Status No Sepsis Action Taken by Nursing No Action Required 08/01/23 19:08 Temperature Temperature Source Pulse Rate Pulse Rate [Femoral] 67 Pulse Rhythm [Femoral] Regular Pulse Strength [Femoral] Normal Respiratory Rate 20 Respiratory Effort / Characteristics Non-Labored Respiratory Depth Normal Respiratory Pattern Regular Blood Pressure Blood Pressure [Right Arm] 136/84 Blood Pressure Mean Blood Pressure Mean [Right Arm] 101 Blood Pressure Position [Right Arm] Lying Pulse Oximetry 95 Oxygen Delivery Method Room Air Sepsis Recent Fever Within 48 Hours Sepsis New/Unexplained Change in Mental Status Sepsis Action Taken by Nursing Physical Exam HENT: Exam performed. - Head: Normocephalic and atraumatic. EYES: Conjunctivae and EOM are normal. Pupils are equal, round, and reactive to light. Right eye exhibits no discharge. Left eye exhibits no discharge. No scleral icterus. NECK: Normal range of motion. Neck supple. No JVD present. No spinous process tenderness present. CV: Normal rate, regular rhythm, normal heart sounds and intact distal pulses. There is no peripheral edema. Palpable radial pulses bue. PULM/CHEST: Effort normal and breath sounds normal. No respiratory distress. No stridor. He has no wheezes. He has no rales. ABD: The abdomen is soft. There is no tenderness. There is no rebound, no guarding. MUSC/SKEL: Normal range of motion. There is no peripheral edema, tenderness or deformity. NEURO: Mildly tremulous. Motor and sensation grossly intact. Course Course 1852: The patient was evaluated in room B6. A complete history and physical exam was performed Cardiac monitoring: An order was placed for continuous cardiac monitoring. The monitor shows a rate of 70 with sinus rhythm interpreted by co 2044: Vital signs show an AST of 349 and ALT of 189 bilirubin of 2 magnesium 1.4 alcohol 393. Imaging within normal limits. [facility] Patient did meet with floor case maker from the emergency department he states he is interested in going to rehab for his alcoholism but states he has no insurance. Destiny did make the patient aware that there are programs through [facility] that will help him pay for his rehab and will try to help arrange for this when the patient is admitted inpatient. Administered Medications Lactated Ringer's (Lr) 1,000 mls @ 200 mls/hr IV .Q5H ONE Stop: 08/02/23 01:55 Last Admin: 08/01/23 21:12 Dose: 200 mls/hr Documented By: FEDERICA Discontinued Medications Thiamine HCl 100 mg/ Syringe 10 mls @ 2 mls/min IV NOW STA Stop: 08/01/23 21:01 Last Admin: 08/01/23 21:12 Dose: 2 mls/min Documented By: FEDERICA Lorazepam (Lorazepam 1 Mg Tab) 1 mg SL NOW STA Stop: 08/01/23 19:04 Last Admin: 08/01/23 19:12 Dose: 1 mg Documented By: FEDERICA Medical Decision Making Laboratory Data Attestation: I reviewed the patient's lab results. 08/01/23 17:26 08/01/23 17:26 Lab Results 08/01/23 08/01/23 Range/Units 17:24 17:26 WBC 6.45 (4.8-10.8) K/ul RBC 5.03 (4.70-6.10) M/uL Hgb 16.4 (14.0-18.0) g/dl Hct 47.4 (42.0-52.0) % MCV 94.2 (80.0-100.0) fL MCH 32.6 (25.0-34.0) pg MCHC 34.6 (32.0-36.0) g/dL RDW Std Deviation 42.2 (36.4-46.3) fL RDW Coeff of Hang 12.1 (11.5-14.5) % Plt Count 170 (130-400) K/uL MPV 10.2 (9.4-12.4) fL Immature Gran % (Auto) 0.2 % Neut % (Auto) 51.1 % Lymph % (Auto) 28.7 % Boyle % (Auto) 11.3 % Eos % (Auto) 6.7 % Baso % (Auto) 2.0 % Neut # (Auto) 3.30 (1.40-6.50) K/uL Lymph # (Auto) 1.85 (1.20-3.40) K/uL Boyle # (Auto) 0.73 H (0.11-0.59) K/uL Eos # (Auto) 0.43 (0.00-0.50) K/uL Baso # (Auto) 0.13 (0.00-0.20) K/uL Immature Gran # (Auto) 0.01 (0.01-0.20) K/uL PT 12.8 H (9.0-12.0) Seconds INR 1.2 H (0.9-1.1) Sodium 145 (136-145) mmol/L Potassium 3.5 (3.5-5.1) mmol/L Chloride 106 (98-107) mmol/L Carbon Dioxide 24 (21-32) mmol/L Anion Gap 15 H (3-11) BUN 7 (6-23) mg/dl Creatinine 0.53 L (0.6-1.4) mg/dl Est Cr Clr Drug Dosing Not Reportable Est GFR ( Amer) 144.0 ml/min Est GFR (Non-Af Amer) 124.2 ml/min BUN/Creatinine Ratio 13.2 (10-20) Glucose 88 (70-99(Fasting)) mg/dl Calcium 8.4 L (8.6-10.3) mg/dl Magnesium 1.4 L (1.7-2.4) mg/dl Total Bilirubin 2.0 H (0.2-1.0) mg/dl AST 349 H (13-39) U/L ALT 189 H (7-52) U/L Alkaline Phosphatase 67 (34-104) U/L Total Protein 8.0 (6.0-8.3) gm/dl Albumin 3.8 (3.4-5.0) gm/dl Globulin 4.2 H (2.5-4.0) gm/dl Albumin/Globulin Ratio 0.9 (0.9-2) TSH 0.969 (0.300-4.500) uIu/ml Salicylates < 3.0 L (3.0-30) mg/dl Acetaminophen < 3 L (10-30) ug/ml Ethyl Alcohol mg/dL 393.0 H (<10.0) mg/dl SARS-CoV-2, RNA, NAAT NEGATIVE (NEGATIVE) Imaging Data Radiologist's Impression: Cervical Spine CT 08/01/23 19:03 Exam(s): CT C SPINE EXAM: CT Cervical Spine Without Intravenous Contrast CLINICAL HISTORY: Altered mental status TECHNIQUE: Axial computed tomography images of the cervical spine without intravenous contrast. CTDI is 25.64 mGy and DLP is 567.53 mGy-cm. Automated exposure control was utilized for the study. A dose lowering technique was utilized adhering to the principles of ALARA. COMPARISON: No relevant prior studies available. FINDINGS: Vertebrae: Unremarkable. No fracture or malalignment. Discs/spinal canal/neural foramina: There are degenerative end plate changes. There are degenerative changes of the spine. No spinal canal stenosis. Soft tissues: Unremarkable. No prevertebral soft tissue swelling. IMPRESSION: No acute finding of the cervical spine. Electronically signed by: Anjelica Kaplan MD 08/01/23 20:[address] 08/01/23 19:03 Exam(s): CT HEAD Without Contrast EXAM: CT Head Without Intravenous Contrast CLINICAL HISTORY: Altered mental status. TECHNIQUE: Axial computed tomography images of the head/brain without intravenous contrast. CTDI is 36.79 mGy and DLP is 624.41 mGy-cm. Automated exposure control was utilized for the study. A dose lowering technique was utilized adhering to the principles of ALARA. COMPARISON: CT head 11/20/2022 FINDINGS: Brain: No intracranial hemorrhage, mass-effect or midline shift. No abnormal extra axial fluid. No evidence of acute infarct. Mild periventricular white matter hypodensities are most consistent with chronic microangiopathy. Ventricles: Unremarkable. No ventriculomegaly. Bones/joints: Unremarkable. No acute fracture. Soft tissues: Unremarkable. Sinuses: Unremarkable as visualized. No acute sinusitis. Mastoid air cells: Unremarkable as visualized. No mastoid effusion. IMPRESSION: No acute intracranial finding. Electronically signed by: Anjelica Kaplan MD 08/01/23 20:44 PM [facility] Narrative 1853: The patient was evaluated in room B6. A complete history and physical exam was performed Cardiac monitoring: An order was placed for continuous cardiac monitoring. The monitor shows a rate of 70 with sinus rhythm interpreted by co 2045: Vital signs show an AST of 349 and ALT of 189 bilirubin of 2 magnesium 1.4 alcohol 393. Imaging within normal limits. [facility] Patient did meet with floor case maker from the emergency department he states he is interested in going to rehab for his alcoholism but states he has no insurance. Destiny did make the patient aware that there are programs through [facility] that will help him pay for his rehab and will try to help arrange for this when the patient is admitted inpatient. Impression & Plan Alcohol abuse, Alcoholic hepatitis Discharge Plan Visit Data Chief Complaint: Detox Request Stated Complaint: ALCOHOL DETOX REQUEST ED Provider: Padilla Downs Discharge Problem: Alcohol abuse, Alcoholic hepatitis Patient Disposition: Admitted As Inpatient Forms Stand Alone Forms: My [facility], Suicide Prevention Resources Prescriptions Prescriptions: No Action buspirone 5 mg Tablet 5 mg PO AMHS potassium chloride 10 mEq Tablet Extended Release 10 meq PO QAM nadolol 20 mg Tablet 20 mg PO QPM ursodiol 300 mg Capsule 300 mg PO BID zolpidem [Ambien] 5 mg Tablet 5 mg PO HS PRN (Reason: Sleep) spironolactone 25 mg tablet 25 mg PO QAM furosemide 20 mg tablet 20 mg PO QAM citalopram 10 mg tablet 10 mg PO QAM pantoprazole 40 mg tablet,delayed release (DR/EC) 40 mg PO QAM thiamine HCl (vitamin B1) 100 mg Tablet 100 mg PO QAM Qty: 30 0RF folic acid 1 mg Tablet 1 mg PO QAM Qty: 30 0RF gabapentin 300 mg capsule 300 mg PO TID cyanocobalamin (vitamin B-12) [Vitamin B-12] 250 mcg tablet 250 mcg PO QAM Referrals Referrals: Michelle Borrego DO [Primary Care Provider] -
--- NOTE | 2023-08-01 20:45 | CT Scan Report ---
Exam(s): CT HEAD Without Contrast EXAM: CT Head Without Intravenous Contrast CLINICAL HISTORY: Altered mental status. TECHNIQUE: Axial computed tomography images of the head/brain without intravenous contrast. CTDI is 36.79 mGy and DLP is 624.41 mGy-cm. Automated exposure control was utilized for the study. A dose lowering technique was utilized adhering to the principles of ALARA. COMPARISON: CT head 11/20/2022 FINDINGS: Brain: No intracranial hemorrhage, mass-effect or midline shift. No abnormal extra axial fluid. No evidence of acute infarct. Mild periventricular white matter hypodensities are most consistent with chronic microangiopathy. Ventricles: Unremarkable. No ventriculomegaly. Bones/joints: Unremarkable. No acute fracture. Soft tissues: Unremarkable. Sinuses: Unremarkable as visualized. No acute sinusitis. Mastoid air cells: Unremarkable as visualized. No mastoid effusion. IMPRESSION: No acute intracranial finding. Electronically signed by: Anjelica Kaplan MD 08/01/23 20:44 PM
--- NOTE | 2023-08-01 20:46 | CT Scan Report ---
Exam(s): CT C SPINE EXAM: CT Cervical Spine Without Intravenous Contrast CLINICAL HISTORY: Altered mental status TECHNIQUE: Axial computed tomography images of the cervical spine without intravenous contrast. CTDI is 25.64 mGy and DLP is 567.53 mGy-cm. Automated exposure control was utilized for the study. A dose lowering technique was utilized adhering to the principles of ALARA. COMPARISON: No relevant prior studies available. FINDINGS: Vertebrae: Unremarkable. No fracture or malalignment. Discs/spinal canal/neural foramina: There are degenerative end plate changes. There are degenerative changes of the spine. No spinal canal stenosis. Soft tissues: Unremarkable. No prevertebral soft tissue swelling. IMPRESSION: No acute finding of the cervical spine. Electronically signed by: Anjelica Kaplan MD 08/01/23 20:45 PM
[2023-08-01] MEDS: THIAMINE HCL 100 MG in SYRINGE 9 ML IV STA (21:12)
[2023-08-01] MEDS: LACTATED RINGER'S 1,000 ML IV ONE (21:12)
[2023-08-01 21:21] LABS: INR 1.2 (0.9-1.1); Prothrombin Time 12.8 Seconds (9.0-12.0)
[2023-08-01 21:27] LABS: Magnesium 1.4 mg/dl (1.7-2.4)
--- NOTE | 2023-08-01 21:44 | History & Physical Report ---
Date of Service August 01, 2023 Assessment & Plan (1) Alcohol withdrawal: Plan: Alcohol withdrawal: hx alcoholic cirrhosis, no overt decompensation Alcoholic hepatitis, good prognosis with computed Maddrey DF score of 5.7 points Medical telemetry LARISA S, DT precautions IVF, Hold home diuretic for now until patient euvolemic Case management consult re: alcohol rehab placement DVT prophylaxis. SCDs Re: History GI bleed Full code Text document was generated using Darudar voice recognition software. It may contain grammatical or spelling errors. Kindly contact undersigned for clarification of any documentation item in question. History of Present Illness Chief Complaint: Shaking, detox Primary Care Provider: Michelle Borrego DO History obtained from patient and records. Medical history significant for alcoholic cirrhosis, history of esophageal varices, history of alcohol withdrawal seizures, ongoing alcohol abuse. Recurrent admissions (almost monthly) since October 2022. Recent confinement 2 weeks ago for alcohol withdrawal. Patient started drinking alcohol again a few days after discharge from the hospital. Denies depression or suicidality. Patient trying to cut down on drinking since yesterday. Patient noted to be shaky by family. No chest pain, no SOB. Patient brought by family to ER for evaluation. Medical History as above Surgical History : Tonsillectomy Family History : DM, asthma, prostate cancer, stroke Personal/Social history : Non-smoker, alcohol abuse, currently unemployed Allergies Allergy/AdvReac Type Severity Reaction Status Date / Time aspirin AdvReac Unknown THINS Verified 08/01/23 20:13 BLOOD, NOSE BLEEDS Home Medications Medication Instructions Recorded Confirmed Type buspirone 5 mg tablet 5 mg PO AMHS 06/10/18 08/01/23 History nadolol 20 mg tablet 20 mg PO QPM 06/10/18 08/01/23 History potassium chloride 10 mEq 10 meq PO QAM 06/10/18 08/01/23 History tablet,extended release ursodiol 300 mg capsule 300 mg PO BID 06/10/18 08/01/23 History zolpidem 5 mg tablet (Ambien) 5 mg PO HS PRN Sleep 06/10/18 08/01/23 History furosemide 20 mg tablet 20 mg PO QAM 11/14/22 08/01/23 History spironolactone 25 mg tablet 25 mg PO QAM 11/14/22 08/01/23 History citalopram 10 mg tablet 10 mg PO QAM 04/09/23 08/01/23 History folic acid 1 mg tablet 1 mg PO QAM #30 tabs 06/06/23 08/01/23 Rx thiamine HCl (vitamin B1) 100 mg 100 mg PO QAM #30 tabs 06/06/23 08/01/23 Rx tablet cyanocobalamin (vitamin B-12) 250 250 mcg PO QAM 07/03/23 08/01/23 History mcg tablet (Vitamin B-12) gabapentin 300 mg capsule 300 mg PO TID 07/03/23 08/01/23 History pantoprazole 40 mg tablet,delayed 40 mg PO QAM 08/01/23 08/01/23 History release Past Med/Surg History Medical History Encounter for pre-operative examination Depression Anxiety Thrombocytopenia Ascites Portal hypertension Esophageal varices Alcoholic cirrhosis of liver History of macrocytic anemia History of alcohol abuse Surgical History History of esophagogastroduodenoscopy (EGD) Including procedures for esophageal varices banding History of tonsillectomy Family History Mother Diabetes Father Prostate cancer Other No family history of adverse response to anesthesia Social History Smoking Status: Never smoker Tobacco Type: Smokeless Tobacco (Dip or Chew) Second Hand Exposure: No; Do You Dip or Chew Tobacco: Yes; Hx Alcohol Use: Yes Alcohol type: hard liquor Hx Substance Use: No Preferred Language: Wolof Communication Ability: Effective Crm Specialist Required: No Beliefs That Will Affect Care: None Current Living Situation: Alone Current Living Situation Comment: lives with parents Feels Safe at Home: Yes Assistive Devices: None Review of Systems Review of Systems: As per HPI, all other systems reviewed and negative Physical Exam Physical Exam: GENERAL: Flat affect, tremulous, obese, no respiratory distress SKIN: Normal color, warm HEENT: [place] palpebral conjunctivae, no ptosis, dry buccal mucosa NECK : Supple, no tenderness CHEST : CTA, no tenderness HEART : RRR, no obvious murmurs ABDOMEN: Some distention, no tenderness EXTREMITIES : No LE swelling/tenderness, no other conspicuous deformities noted NEUROLOGIC : Coherent, no facial asymmetry, tremulous, no other gross focality Results & Data Results & Data Vital Signs (Past 12 Hours) Vital Signs Temp Pulse Pulse Resp BP BP Pulse Ox 08/01/23 19:08 67 20 136/84 95 08/01/23 19:08 08/01/23 19:03 68 08/01/23 16:50 36.5 C 80 18 148/94 H 95 O2 Del Method 08/01/23 19:08 Room Air 08/01/23 19:08 Room Air 08/01/23 19:03 08/01/23 16:50 Room Air Laboratory Results Laboratory Results WBC 6.45 K/ul (4.8-10.8) 08/01/23 17:26 RBC 5.03 M/uL (4.70-6.10) 08/01/23 17:26 Hgb 16.4 g/dl (14.0-18.0) 08/01/23 17:26 Hct 47.4 % (42.0-52.0) 08/01/23 17:26 MCV 94.2 fL (80.0-100.0) 08/01/23 17:26 MCH 32.6 pg (25.0-34.0) 08/01/23 17:26 MCHC 34.6 g/dL (32.0-36.0) 08/01/23 17:26 RDW Std Deviation 42.2 fL (36.4-46.3) 08/01/23 17:26 RDW Coeff of Hang 12.1 % (11.5-14.5) 08/01/23 17:26 Plt Count 170 K/uL (130-400) 08/01/23 17:26 MPV 10.2 fL (9.4-12.4) 08/01/23 17:26 Immature Gran % (Auto) 0.2 % 08/01/23 17:26 Neut % (Auto) 51.1 % 08/01/23 17:26 Lymph % (Auto) 28.7 % 08/01/23 17:26 [place] % (Auto) 11.3 % 08/01/23 17:26 Eos % (Auto) 6.7 % 08/01/23 17:26 Baso % (Auto) 2.0 % 08/01/23 17:26 Neut # (Auto) 3.30 K/uL (1.40-6.50) 08/01/23 17:26 Lymph # (Auto) 1.85 K/uL (1.20-3.40) 08/01/23 17:26 [place] # (Auto) 0.73 K/uL (0.11-0.59) H 08/01/23 17:26 Eos # (Auto) 0.43 K/uL (0.00-0.50) 08/01/23 17:26 Baso # (Auto) 0.13 K/uL (0.00-0.20) 08/01/23 17:26 Immature Gran # (Auto) 0.01 K/uL (0.01-0.20) 08/01/23 17:26 PT 12.8 Seconds (9.0-12.0) H 08/01/23 17:26 INR 1.2 (0.9-1.1) H 08/01/23 17:26 Sodium 145 mmol/L (136-145) 08/01/23 17:26 Potassium 3.5 mmol/L (3.5-5.1) 08/01/23 17:26 Chloride 106 mmol/L (98-107) 08/01/23 17:26 Carbon Dioxide 24 mmol/L (21-32) 08/01/23 17:26 Anion Gap 15 (3-11) H 08/01/23 17:26 BUN 7 mg/dl (6-23) 08/01/23 17:26 Creatinine 0.53 mg/dl (0.6-1.4) L 08/01/23 17:26 Est Cr Clr Drug Dosing Not Reportable 08/01/23 17:26 Est GFR ( Amer) 144.0 ml/min 08/01/23 17:26 Est GFR (Non-Af Amer) 124.2 ml/min 08/01/23 17:26 BUN/Creatinine Ratio 13.2 (10-20) 08/01/23 17:26 Glucose 88 mg/dl (70-99(Fasting)) 08/01/23 17:26 Calcium 8.4 mg/dl (8.6-10.3) L 08/01/23 17:26 Magnesium 1.4 mg/dl (1.7-2.4) L 08/01/23 17:26 Total Bilirubin 2.0 mg/dl (0.2-1.0) H 08/01/23 17:26 AST 349 U/L (13-39) H 08/01/23 17:26 ALT 189 U/L (7-52) H 08/01/23 17:26 Alkaline Phosphatase 67 U/L (34-104) 08/01/23 17:26 Total Protein 8.0 gm/dl (6.0-8.3) 08/01/23 17:26 Albumin 3.8 gm/dl (3.4-5.0) 08/01/23 17:26 Globulin 4.2 gm/dl (2.5-4.0) H 08/01/23 17:26 Albumin/Globulin Ratio 0.9 (0.9-2) 08/01/23 17:26 TSH 0.969 uIu/ml (0.300-4.500) 08/01/23 17:26 Salicylates < 3.0 mg/dl (3.0-30) L 08/01/23 17:26 Acetaminophen < 3 ug/ml (10-30) L 08/01/23 17:26 Ethyl Alcohol mg/dL 393.0 mg/dl (<10.0) H 08/01/23 17:26 SARS-CoV-2, RNA, NAAT NEGATIVE (NEGATIVE) 08/01/23 17:[address] 08/01/23 19:03 Exam(s): CT C SPINE EXAM: CT Cervical Spine Without Intravenous Contrast CLINICAL HISTORY: Altered mental status TECHNIQUE: Axial computed tomography images of the cervical spine without intravenous contrast. CTDI is 25.64 mGy and DLP is 567.53 mGy-cm. Automated exposure control was utilized for the study. A dose lowering technique was utilized adhering to the principles of ALARA. COMPARISON: No relevant prior studies available. FINDINGS: Vertebrae: Unremarkable. No fracture or malalignment. Discs/spinal canal/neural foramina: There are degenerative end plate changes. There are degenerative changes of the spine. No spinal canal stenosis. Soft tissues: Unremarkable. No prevertebral soft tissue swelling. IMPRESSION: No acute finding of the cervical spine. Electronically signed by: Anjelica Kaplan MD 08/01/23 20:[address] 08/01/23 19:03 Exam(s): CT HEAD Without Contrast EXAM: CT Head Without Intravenous Contrast CLINICAL HISTORY: Altered mental status. TECHNIQUE: Axial computed tomography images of the head/brain without intravenous contrast. CTDI is 36.79 mGy and DLP is 624.41 mGy-cm. Automated exposure control was utilized for the study. A dose lowering technique was utilized adhering to the principles of ALARA. COMPARISON: CT head 11/20/2022 FINDINGS: Brain: No intracranial hemorrhage, mass-effect or midline shift. No abnormal extra axial fluid. No evidence of acute infarct. Mild periventricular white matter hypodensities are most consistent with chronic microangiopathy. Ventricles: Unremarkable. No ventriculomegaly. Bones/joints: Unremarkable. No acute fracture. Soft tissues: Unremarkable. Sinuses: Unremarkable as visualized. No acute sinusitis. Mastoid air cells: Unremarkable as visualized. No mastoid effusion. IMPRESSION: No acute intracranial finding. Electronically signed by: Anjelica Kaplan MD 08/01/23 20:44 PM
[2023-08-01] MEDS ORDERED: chlordiazePOXIDE ALCOHOL WITHDRAWL 25MG PO STA (21:48)
[2023-08-01] MEDS ORDERED: LORazepam 3 MG in SYRINGE 1.5 ML IV PRN (21:48)
[2023-08-01] MEDS ORDERED: Ativan IV Alcohol Withdrawal--Active Protocol IV PRN (21:48)
[2023-08-01] MEDS: chlordiazePOXIDE HCl 25 MG CAP PO SCH (22:43)
[2023-08-02 00:29] LABS: Appearance Urine Clear (Clear); Bacteria Urine Automated None Seen (None Seen); Bilirubin Urine Negative (Negative); Blood Urine Negative (Negative); Color Urine Dark Yellow; Epithelial Cell Urine Auto 0-2 /hpf (0-2); Glucose Urine UA Negative (Negative); Ketones Urine 2+ (Negative); Leukocyte Esterase Urine Negative (Negative); Nitrite Urine Negative (Negative); Protein Urine 1+ (Negative); RBC Urine Automated 0-2 /hpf (0-2); Specific Gravity Urine 1.015 (1.000-1.030); Urobilinogen Urine Negative (Negative); WBC Urine Automated 0-5 /hpf (0-5)
[2023-08-02] MEDS: MAGNESIUM SULFATE / D5W 1 GM/100 ML BAG IV SCH ×2 (00:36→08:53)
[2023-08-02] MEDS: PROMETHAZINE HCL 6.25 MG in SODIUM CHLORIDE 0.9% 50 ML IV PRN (00:46)
[2023-08-02 01:11] LABS: Amphetamines+Metham, Urine Neg (Neg); Barbiturates, Urine Neg (Neg); Benzodiazepine, Urine Pos (Neg); Cocaine, Urine Neg (Neg); MDMA (Ecstacy), Urine Neg (Neg); Marijuana, Urine Neg (Neg); Methadone, Urine Neg (Neg); Opiate, Urine Neg (Neg); Phencyclidine, Urine Neg (Neg)
[2023-08-02] MEDS: GABAPENTIN 300 MG CAP PO SCH (01:16)
[2023-08-02] MEDS: busPIRone 5 MG TAB PO SCH (01:16)
[2023-08-02] MEDS: ZOLPIDEM TARTRATE 5 MG TAB PO PRN (01:16)
[2023-08-02] MEDS: ACETAMINOPHEN 500 MG TAB PO PRN (06:32)
[2023-08-02] MEDS: MULTIVITAMIN TAB PO SCH (07:49)
[2023-08-02] MEDS: THIAMINE HCL 100 MG TAB PO SCH (07:49)
[2023-08-02] MEDS: ursodioL 300 MG CAP PO SCH (07:49)
[2023-08-02] MEDS: CITALOPRAM 20 MG TAB PO SCH (07:49)
[2023-08-02] MEDS: CYANOCOBALAMIN (B-12) 500 MCG TABLET PO SCH (07:50)
[2023-08-02] MEDS: FOLIC ACID 1 MG TAB PO SCH (07:50)
[2023-08-02] MEDS: PANTOprazole 40 MG TAB PO SCH (07:50)
[2023-08-02] MEDS: oxyCODONE HCL IR 5 MG TAB (IMMEDIATE RELEASE) PO PRN (07:56)
[2023-08-02 08:16] LABS: Albumin Level 3.1 gm/dl (3.4-5.0); BUN Creatinine Ratio 11.8 (10-20); Bilirubin,Total 1.6 mg/dl (0.2-1.0); Calcium 7.3 mg/dl (8.6-10.3); Creatinine Clr Calc Pharmacy 169.5 ml/min; Est GFR (African American) 146.3 ml/min; Est GFR (Non-African American) 126.2 ml/min; Globulin 3.2 gm/dl (2.5-4.0); Magnesium 1.7 mg/dl (1.7-2.4); Total Protein 6.3 gm/dl (6.0-8.3)
[2023-08-02 08:23] LABS: Basophils # (auto) 0.03 K/uL (0.00-0.20); Basophils % (auto) 1.1 %; Eosinophils # (auto) 0.16 K/uL (0.00-0.50); Eosinophils % (auto) 5.8 %; Hematocrit (blood only) 39.2 % (42.0-52.0); Hemoglobin 13.4 g/dl (14.0-18.0); Immature Granulocytes # (auto) 0.01 K/uL (0.01-0.20); Immature Granulocytes % (auto) 0.4 %; Lymphocytes # (auto) 0.97 K/uL (1.20-3.40); Lymphocytes % (auto) 34.9 %; Mean Corpuscular Hemoglobin 32.7 pg (25.0-34.0); Mean Corpuscular Hgb Conc 34.2 g/dL (32.0-36.0); Mean Corpuscular Volume 95.6 fL (80.0-100.0); Mean Platelet Volume 10.1 fL (9.4-12.4); Monocytes # (auto) 0.36 K/uL (0.11-0.59); Monocytes % (auto) 12.9 %; Neutrophils # (auto) 1.25 K/uL (1.40-6.50); Neutrophils % (auto) 44.9 %; Platelet Count 87 K/uL (130-400); RDW Standard Deviation 42.2 fL (36.4-46.3); White Blood Count 2.78 K/ul (4.8-10.8)
[2023-08-02] MEDS: POTASSIUM CHLORIDE CRTAB 20 MEQ TABCR PO STA (08:50)
[2023-08-02] MEDS ORDERED: FOLIC ACID 1 MG TAB PO SCH (09:00)
[2023-08-02] MEDS: LORazepam 1 MG in SYRINGE 0.5 ML IV PRN (12:19)
--- NOTE | 2023-08-02 14:58 | Hospitalist Progress Note ---
Date of Service August 02, 2023 Assessment & Plan (1) Alcohol withdrawal: Plan: 47-year-old male with past med history significant for pancreatic cyst, secondary esophageal varices without bleeding, alcoholic cirrhosis of liver with ascites, chronic cholecystitis, coagulopathy, macrocytic anemia, ongoing alcoholism/dependence came in again for detoxification. Patient reports he started drinking again few days after discharge but now would like to get detoxified. He denies any fever or chills. He is being managed for the following Alcohol use disorder Alcohol withdrawal Alcohol intoxication History of multiple admission with alcohol withdrawal. Reports drinking a bottle of vodka every day Blood alcohol level of 393 on admission -Started on Librium taper with as needed Ativan. Continue -Folic acid, thiamine -hold Librium if sleeping/lethargic. -Telemetry monitoring, LARISA S protocol Pt agrees for inpatient rehab placement as of now. Alcoholic hepatitis: Good prognosis with computed Madrey DF score of 5.7 points at presentation. follow LFT for trends. Alcoholic cirrhosis of liver with ascites Esophageal varices Continue home nadolol and Protonix. resume Lasix and Aldactone when able. Monitor for volume overload f/u w/ hepatology on dc. Gallstones Chronic cholecystitis on ursodiol DVT prophylaxis: Heparin subcu. Disposition: Med/tele Full code Text document was generated using [employer] voice recognition software. It may contain grammatical or spelling errors. Kindly contact undersigned for clarification of any documentation item in question. Admission and Anticipated Discharge Date Admission Date: August 01, 2023 Subjective Patient was seen and examined at bedside. Patient was lying in bed, on room air, resting comfortably. Patient upper extremity tremulous, patient denies any pain or headache or dizziness. Patient reports eating okay. Patient denies any diarrhea. Physical Exam Physical Exam: GENERAL: Flat affect, tremulous, obese, no respiratory distress SKIN: Normal color, warm HEENT: [place] palpebral conjunctivae, no ptosis, moist buccal mucosa NECK : Supple, no tenderness CHEST : CTA, no tenderness HEART : RRR, no obvious murmurs ABDOMEN: Some distention, no tenderness EXTREMITIES : No LE swelling/tenderness, no other conspicuous deformities noted NEUROLOGIC : Coherent, no facial asymmetry, tremulous, no other gross focality Results & Data Results & Data Vital Signs (Past 12 Hours) Vital Signs Temp Pulse Pulse Pulse Resp BP Pulse Ox 08/02/23 12:10 37.2 C 85 18 133/79 92 08/02/23 08:23 36.8 C 77 18 127/52 L 93 08/02/23 07:06 77 08/02/23 04:00 36.7 C 77 18 110/62 93 O2 Del Method 08/02/23 12:10 Room Air 08/02/23 08:23 Room Air 08/02/23 07:06 08/02/23 04:00 Room Air
[2023-08-02] MEDS: ONDANSETRON INJ 2 MG/ML 2 ML VIAL IV PRN (16:22)
[2023-08-02] MEDS: chlordiazePOXIDE HCl 25 MG CAP PO ONE (18:23)
[2023-08-02] MEDS: nadoloL 40 MG TAB PO SCH (19:59)
[2023-08-02] MEDS: LORazepam 2 MG in SYRINGE 1 ML IV PRN (20:27)
[2023-08-03] MEDS: chlordiazePOXIDE HCl 25 MG CAP PO SCH (00:33)
[2023-08-03 07:13] LABS: Hematocrit (blood only) 40.9 % (42.0-52.0); Hemoglobin 13.6 g/dl (14.0-18.0); Mean Corpuscular Hemoglobin 32.5 pg (25.0-34.0); Mean Corpuscular Hgb Conc 33.3 g/dL (32.0-36.0); Mean Corpuscular Volume 97.8 fL (80.0-100.0); Mean Platelet Volume 10.7 fL (9.4-12.4); Platelet Count 102 K/uL (130-400); RDW Coefficient of Variation 12.1 % (11.5-14.5); RDW Standard Deviation 43.7 fL (36.4-46.3); Red Blood Count 4.18 M/uL (4.70-6.10); White Blood Count 3.51 K/ul (4.8-10.8)
[2023-08-03 07:45] LABS: Alanine Aminotransferase 137 U/L (7-52); Albumin Level 3.3 gm/dl (3.4-5.0); Alkaline Phosphatase 54 U/L (34-104); Anion Gap 7 (3-11); BUN Creatinine Ratio 9.1 (10-20); Bilirubin,Total 1.7 mg/dl (0.2-1.0); Blood Urea Nitrogen 6 mg/dl (6-23); Calcium 7.5 mg/dl (8.6-10.3); Carbon Dioxide 27 mmol/L (21-32); Chloride 103 mmol/L (98-107); Est GFR (African American) 131.6 ml/min; Est GFR (Non-African American) 113.5 ml/min; Glucose 111 mg/dl (70-99(Fasting)); Magnesium 1.6 mg/dl (1.7-2.4); Phosphorus 3.3 mg/dl (2.5-4.9); Sodium 137 mmol/L (136-145); Total Protein 6.8 gm/dl (6.0-8.3)
[2023-08-03 08:59] LABS: Bilirubin Direct 0.8 mg/dl (0-0.2); Potassium 3.3 mmol/L (3.5-5.1)
[2023-08-03] MEDS: POTASSIUM CHLORIDE CRTAB 20 MEQ TABCR PO STA (11:14)
[2023-08-03] MEDS: MAGNESIUM SULFATE / D5W 1 GM/100 ML BAG IV SCH (11:16)
[2023-08-03 15:52] LABS: 7-Aminoclonaz, Confirm NEGATIVE ng/mL (<25); Hydro-Alp Ur, GC/MS NEGATIVE ng/mL (<25); Hydroxyethylflurazepam, Conf NEGATIVE ng/mL (<50); Hydroxymidazolam Ur, GC/MS NEGATIVE ng/mL (<50); Hydroxytriazolam NEGATIVE ng/mL (<50); Lorazepam, Ur GC/MS 125 ng/mL (<50); Nordiazepam, Confirm 63 ng/mL (<50); Oxazepam Ur, GC/MS 152 ng/mL (<50); Temazepam, Confirm NEGATIVE ng/mL (<50)
--- NOTE | 2023-08-03 16:07 | Hospitalist Progress Note ---
Date of Service August 03, 2023 Assessment & Plan (1) Alcohol withdrawal: Plan: 47-year-old male with past med history significant for pancreatic cyst, secondary esophageal varices without bleeding, alcoholic cirrhosis of liver with ascites, chronic cholecystitis, coagulopathy, macrocytic anemia, ongoing alcoholism/dependence came in again for detoxification. Patient reports he started drinking again few days after discharge but now would like to get detoxified. He denies any fever or chills. He is being managed for the following Alcohol use disorder Alcohol withdrawal Alcohol intoxication History of multiple admission with alcohol withdrawal. Reports drinking a bottle of vodka every day Blood alcohol level of 393 on admission -Started on Librium taper with as needed Ativan. Continue -Folic acid, thiamine -hold Librium if sleeping/lethargic. -Telemetry monitoring, LARISA S protocol Pt agrees for inpatient rehab placement as of now. CM has been consulted. Alcoholic hepatitis: Good prognosis with computed Madrey DF score of 5.7 points at presentation. follow LFT for trends. Alcoholic cirrhosis of liver with ascites Esophageal varices Continue home nadolol and Protonix. resume Lasix and Aldactone . Monitor for volume overload f/u w/ hepatology on dc. Gallstones Chronic cholecystitis on ursodiol DVT prophylaxis: Heparin subcu. Disposition: Med/tele Full code Text document was generated using [employer] voice recognition software. It may contain grammatical or spelling errors. Kindly contact undersigned for clarification of any documentation item in question. Admission and Anticipated Discharge Date Admission Date: August 01, 2023 Subjective Patient was seen and examined at bedside. Patient was lying in bed, on room air, resting comfortably. Patient upper extremity still tremulous, patient denies any pain or headache or dizziness. Patient reports eating okay. Patient denies any diarrhea. reports some nausea. Physical Exam Physical Exam: GENERAL: Flat affect, tremulous, obese, no respiratory distress SKIN: Normal color, warm HEENT: [place] palpebral conjunctivae, no ptosis, moist buccal mucosa NECK : Supple, no tenderness CHEST : CTA, no tenderness HEART : RRR, no obvious murmurs ABDOMEN: Some distention, no tenderness EXTREMITIES : No LE swelling/tenderness, no other conspicuous deformities noted NEUROLOGIC : Coherent, no facial asymmetry, tremulous, no other gross focality Results & Data Results & Data Vital Signs (Past 12 Hours) Vital Signs Temp Pulse Pulse Resp BP Pulse Ox O2 Del Method 08/03/23 15:59 36.8 C 74 18 122/78 93 Room Air 08/03/23 15:34 81 08/03/23 11:35 36.3 C L 83 18 146/87 H 92 Room Air 08/03/23 08:43 36.8 C 59 L 18 122/77 93 Room Air 08/03/23 07:17 65
--- OUTSIDE RECORDS SUMMARY | 2023-08-03 21:09 | External Medical Summary | Summary of Care ---
Author Name Unknown Organization [facility] Address [address] [facility] [address] Phone [phone] Care Team Providers Care Internal Communications Intern Name Role Phone BorregoVikashMichelle Mari KEITA Primary Care Provider [phone] Reason for Visit * Reason Onset Date Comments Hospital Follow-Up 07/28/2023 Jori for [facility] 2 attempts Encounter Details Date Type Department Care Team (Late st Contact Info) Description 07/28/2023 Telephone Ancillary [address] [place] [id number] Erin Jolley, FELIPE Hospital Follow-Up (Jori for [facility] 2 attempts) Allergies Active Allergy Reactions Criticality Noted Date Comments Aspirin Other (Please comment) 02/12/2016 Reports having a bloody nose. documented as of this encounter (statuses as of 07/29/2023) Medications Medication Sig Dispensed Refills Start Date [...] Capsule (Vancocin) 1 Capsule. 0 04/14/2023 Active Gabapentin 300 MG Oral Capsule (Neurontin) [...] the morning. 90 Tablet 1 07/03/2023 Active Zolpidem Tartrate 5 MG Oral Tablet (Ambien)Indications :History of alcohol abuse,Persistent insomnia Take 1 Tablet by mouth at bedtime as needed for Sleep. 30 Tablet 0 07/28/2023 Active Lidocaine 5 % External Patch (Lidoderm) Place 1 Patch over 12 hours topically on the skin daily. 30 Patch 0 07/28/2023 Active documented as of this encounter (statuses as of 07/29/2023) Active Problems Problem Noted Date Diagnosed Date [...] as of this encounter (statuses as of 07/29/2023) Resolved Problems Problem Noted Date Diagnosed Date [...] as of this encounter (statuses as of 07/29/2023) Immunizations Name Administration Dates Next Due COVID-19 [...] Telephone Encounter - Erin Jolley RN - 07/28/2023 2:36 PM EDT Transitions of Care Note Reason for Referral:Recent Admission Phone visit for follow up: jori Admitted to: [facility], Date: 07.20.23 Discharged to: home, Date: 07.25.23 Diagnosis driving hospitalization: Alcohol use disorder Alcohol withdrawal Alcoholic hepatitis History of multiple admission with alcohol withdrawal. Reports drinking a bottle of vodka every day Blood alcohol level of 300s on admission Per Hospital discharge note: Patient started drinking again 2 days ago after he lost his job. He decided yesterday that he wanted to try quitting. Increased tremors noted at home. Transient chest pain, chronic dry cough symptoms. No SOB. Watery diarrhea in the last few days without abdominal pain. No fever, no chills. ASSESSMENT During the hospitalization patient was treated with tapering dose of Librium and Ativan. At the time of the discharge, patient did not have any withdrawal signs or symptoms. He was alert oriented x 3. Plan per hospital follow up Patient will need labs CBC/CMP/magnesium/phosphorus. Unable to leave message, phone is not exception phone calls. Patient does use [facility] and sent message there too. Erin Jolley RN documented in this encounter Plan of Treatment Upcoming Encounters Date Type Department Care Team (Late st Contact Info) Description 07/31/2023 8:20 AM EDT Office Visit Family Medicine [address] [place] [phone] Allan Lepe MD [address] [place] [address] [place] [id number] 09/01/2023 8:15 AM EDT Imaging Radiology [address] [place] [address] 09/08/2023 3:00 PM EDT Office Visit Gastroenterology, [facility] [address] [facility] [place] [address] Anatoliy Meza CRNP [address] [facility] [place] [address] 02/03/2024 8:30 AM EST Office Visit Family Medicine [address] [place] [phone] Michelle Borrego DO [address] [place] [address] [place] [id number] Scheduled Procedures Name Priority Associated Diagnoses Date/Ti [...] the patient have Health Care Power of Multimedia Journalist? No Code Status History Code Status Date [...] the patient have Health Care Power of Multimedia Journalist? No Full Code 02/10/2016 5:50 PM 02/20/2016 12:09 AM Th is order reflects the patients wishes and were consensually agreed upon. Question Answer Comments Discussion of Advance Directives occurred with: Patient Does the patient have a Living Will? No Does the patient have Health Care Power of Multimedia Journalist? No Full Code 01/15/2016 3:25 PM 01/18/2016 6:24 PM Thi s order reflects the patients wishes and were consensually agreed upon. Question Answer Comments Discussion of Advance Directives occurred with: Patient Does the patient have a Living Will? No Does the patient have Health Care Power of Multimedia Journalist? No Care Teams Internal Communications Intern Relationship Specialty Start Date End Date Michelle Borrego DO [address] [place] [address] [place] [id number] PCP - General Internal Medicine 06/07/16 documented as of this encounter
--- OUTSIDE RECORDS SUMMARY | 2023-08-03 21:09 | External Medical Summary | Summary of Care ---
Author Name Unknown Organization [facility] Address [address] [facility] [address] Phone [phone] Care Team Providers Care Wire Repairer Name Role Phone Ollie Stein DO Primary Care Provider + [phone] Reason for Visit * Reason Onset Date Comments Medication Refill 07/25/2023 Encounter Details Date Type Department Care Team (Late st Contact Info) Description 07/25/2023 Refill Family Medicine [address] [phone] Ollie Stein DO [address] [place] [address] [place] [id number] History of alcohol abuse; Persistent insomnia Allergies Active Allergy Reactions Criticality Noted Date Comments Aspirin Other (Please comment) 02/12/2016 Reports having a bloody nose. documented as of this encounter (statuses as of 07/28/2023) Medications Medication Sig Dispensed Refills Start Date [...] skin daily. 30 Patch 0 07/28/2023 Active Zolpidem Tartrate 5 MG Oral Tablet (Ambien)Indicati ons:History of alcohol abuse,Persistent insomnia Take 1 Tablet by mouth at bedtime as needed for Sleep. 30 Tablet 0 06/12/2023 07/25/2023 Discontinue d(Refill) Lidocaine 5 % External Patch (Lidoderm) Place 1 Patch over 12 hours topically on the skin daily. 30 Patch 0 06/24/2023 07/28/2023 Discontinue d(Refill) documented as of this encounter (statuses as of 07/28/2023) Active Problems Problem Noted Date Diagnosed Date [...] as of this encounter (statuses as of 07/28/2023) Resolved Problems Problem Noted Date Diagnosed Date [...] as of this encounter (statuses as of 07/28/2023) Immunizations Name Administration Dates Next Due COVID-19 [...] Telephone Encounter - Ollie Stein DO - 07/28/2023 12:02 PM EDTSigned Prescriptions: Disp Refills Zolpidem Tartrate 5 MG Oral Tablet (Ambien)30 Tab*0 Sig: Take 1Tablet by mouth at bedtime as needed for Sleep.Authorizing Provider: OLLIE STEIN Lidocaine 5 % External Patch (Lidoderm) 30 Pat*0 Sig: Place 1 Patch over 12 hours topically on the skin daily.Authorizing Provider: OLLIE STEIN * Telephone Encounter - Ollie Stein DO - 07/28/2023 12:02 PM EDTSigned Prescriptions: Disp Refills Zolpidem Tartrate 5 MG Oral Tablet (Ambien)30 Tab*0 Sig: Take 1 Tablet by mouth at bedtime as needed for Sleep. Authorizing Provider: OLLIE STEIN Lidocaine 5 % External Patch (Lidoderm) 30 Pat*0 Sig: Place 1 Patch over 12 hours topically on the skin daily. Authorizing Provider: OLLIE STEIN --------- * Telephone Encounter - Daniela Cox LPN - 07/28/2023 11:32 AM EDTPending Prescriptions: Disp Refills Zolpidem Tartrate 5 MG Oral Tablet (Ambien)30 Tab*0 Sig: Take 1 Tablet by mouth at bedtime as needed for Sleep. Lidocaine 5 % External Patch (Lidoderm) 30 Pat*0 Sig: Place 1 Patch over 12 hours topically on the skin daily. * Telephone Encounter - Rex Springer [facility] - 07/28/2023 8:26 AM EDT Pending Prescriptions: Disp Refills Zolpidem Tartrate 5 MG Oral Tablet (Ambien)30 Tab*0 Sig: Take 1 Tablet by mouth at bedtime as needed for Sleep. * Telephone Encounter - Rex Springer [facility] - 07/28/2023 8:26 AM EDT I have reviewed the patients controlled substance dispensing history in the Prescription Drug Monitoring Program in compliance with the [facility] regulations before prescribing a controlled substance. PDMP checked on 07/28/2023. Pending Prescriptions: Disp Refills Zolpidem Tartrate 5 MG Oral Tablet (Ambie*30 Tab*0 Sig: Take 1 Tablet by mouth at bedtime as needed for Sleep. Last Visit: 06/24/2023 (in office), Visit date not found (telemedicine) Next Visit: 07/31/2023 Date medication was last filled: 06/11 Date medication is due for refill: 07/12 Pharmacy: [facility], [address] [place] Is this request for a controlled substance? Yes and Urine Drug Screen Not completed Toxicology results: Results for orders placed or performed in [...] TESTING IS AVAILABLE UPON REQUEST. [employer] Please approve if appropriate. Rex Villalta PharmD Clinical Pharmacist [facility] ([facility]) (formerly Telepharmacy) [phone] 07/28/2023,8:26 AM * Telephone Encounter - Kathe Hunter PHARM Tech - 07/25/2023 1:43 PM EDT Did you pend patient's preferred pharmacy and medication before forwarding?yes Pharmacy: [facility], [address] [place] Pending Prescriptions: Disp Refills Zolpidem Tartrate 5 MG Oral Tablet (Ambie*30 Tab*0 Sig: Take 1 Tablet by mouth at bedtime as needed for Sleep. Last Visit: 06/24/2023 (in office), Visit date not found (telemedicine) Next Visit: 07/31/2023 If no future appointments scheduled, and last appointment is greater than a year ago, please schedule patient for a follow-up appointment Last date the medication was ordered: 06/12/2023 Is this request for a controlled substance?Yes, What was the last refill date 06/12/2023 w/ [id number] and dosage 5mg and Urine Drug Screen was completed Urine Drug Screen: Results for orders placed [...] Description 07/31/2023 8:20 AM EDT Office Visit [address] [place] [phone] Allan Lepe MD [address] [place] [address] [place] [address] 09/01/2023 8:15 AM EDT Imaging Radiology [address] [place] [address] 09/08/2023 3:00 PM EDT Office Visit Gastroenterology, [facility] [address] [place] [address] Anatoliy Meza CRNP [address] [place] [address] 02/03/2024 8:30 AM EST Office Visit Family Medicine [address] [place] [phone] [address] [place] [address] Scheduled Procedures Name Priority Associated Diagnoses Date/Ti [...] the patient have Health Care Power of Production Team Manager? No Code Status History Code Status [...] the patient have Health Care Power of Production Team Manager? No Full Code 02/10/2016 5:50 PM 02/20/2016 12:09 AM Th is order reflects the patients wishes and were consensually agreed upon. Question Answer Comments Discussion of Advance Directives occurred with: Patient Does the patient have a Living Will? No Does the patient have Health Care Power of Production Team Manager? No Full Code 01/15/2016 3:25 PM 01/18/2016 6:24 PM Thi s order reflects the patients wishes and were consensually agreed upon. Question Answer Comments Discussion of Advance Directives occurred with: Patient Does the patient have a Living Will? No Does the patient have Health Care Power of Production Team Manager? No Care Teams Wire Repairer Relationship Specialty Start Date End Date Ollie Stein DO [address] [place] [address] [place] [id number] PCP - General Internal Medicine 06/07/16 documented as of this encounter
[2023-08-04 07:22] LABS: Albumin Globulin Ratio 0.9 (0.9-2); BUN Creatinine Ratio 9.1 (10-20); Bilirubin,Total 1.7 mg/dl (0.2-1.0); Calcium 7.9 mg/dl (8.6-10.3); Creatinine Clr Calc Pharmacy 112.3 ml/min; Est GFR (African American) 123.5 ml/min; Est GFR (Non-African American) 106.6 ml/min; Globulin 3.4 gm/dl (2.5-4.0); Magnesium 1.7 mg/dl (1.7-2.4); Phosphorus 2.4 mg/dl (2.5-4.9); Potassium 4.1 mmol/L (3.5-5.1); Total Protein 6.4 gm/dl (6.0-8.3)
[2023-08-04] MEDS: FUROSEMIDE 20 MG TAB PO SCH (08:12)
[2023-08-04] MEDS: POTASSIUM CHLORIDE 10 MEQ TABCR PO SCH (08:12)
[2023-08-04] MEDS: SPIRONOLACTONE 25 MG TAB PO SCH (08:12)
[2023-08-04] MEDS: POT PHOSPHATE MONOBASIC W/ SOD TAB PO SCH (09:55)
--- NOTE | 2023-08-04 16:04 | Hospitalist Progress Note ---
Date of Service August 04, 2023 Assessment & Plan (1) Alcohol withdrawal: Plan: 47-year-old male with past med history significant for pancreatic cyst, secondary esophageal varices without bleeding, alcoholic cirrhosis of liver with ascites, chronic cholecystitis, coagulopathy, macrocytic anemia, ongoing alcoholism/dependence came in again for detoxification. Patient reports he started drinking again few days after discharge but now would like to get detoxified. He denies any fever or chills. He is being managed for the following Alcohol use disorder Alcohol withdrawal Alcohol intoxication History of multiple admission with alcohol withdrawal. Reports drinking a bottle of vodka every day Blood alcohol level of 393 on admission -Started on Librium taper with as needed Ativan. Continue -Folic acid, thiamine -hold Librium if sleeping/lethargic. -Telemetry monitoring, LARISA S protocol Pt agrees for inpatient rehab placement as of now. CM has been consulted. Appears now not agreeing to inpatient rehab to CM. Alcoholic hepatitis: Good prognosis with computed Madrey DF score of 5.7 points at presentation. follow LFT for trends. Alcoholic cirrhosis of liver with ascites Esophageal varices Continue home nadolol and Protonix. c/w Lasix and Aldactone . Monitor for volume overload f/u w/ hepatology on dc. Gallstones Chronic cholecystitis on ursodiol DVT prophylaxis: Heparin subcu. Disposition: Med/tele Full code Text document was generated using [employer] voice recognition software. It may contain grammatical or spelling errors. Kindly contact undersigned for clarification of any documentation item in question. Admission and Anticipated Discharge Date Admission Date: August 01, 2023 Subjective Patient was seen and examined at bedside. Patient was lying in bed, on room air, resting comfortably. Patient upper extremity still tremulous, patient denies any pain or headache or dizziness. Patient reports eating okay. Patient denies any diarrhea. reports some nausea but improving. Physical Exam Physical Exam: GENERAL: Flat affect, tremulous, obese, no respiratory distress SKIN: Normal color, warm HEENT: [place] palpebral conjunctivae, no ptosis, moist buccal mucosa NECK : Supple, no tenderness CHEST : CTA, no tenderness HEART : RRR, no obvious murmurs ABDOMEN: Some distention, no tenderness EXTREMITIES : No LE swelling/tenderness, no other conspicuous deformities noted NEUROLOGIC : Coherent, no facial asymmetry, tremulous, no other gross focality Results & Data Results & Data Vital Signs (Past 12 Hours) Vital Signs Temp Pulse Pulse Resp BP Pulse Ox O2 Del Method 08/04/23 14:53 60 08/04/23 11:48 36.6 C 62 18 115/76 94 Room Air 08/04/23 07:43 36.7 C 56 L 16 106/67 94 Room Air 08/04/23 07:18 63
[2023-08-05] MEDS: chlordiazePOXIDE HCl 5 MG CAP PO SCH (06:26)
[2023-08-05 07:27] LABS: Albumin Level 3.1 gm/dl (3.4-5.0); Bilirubin,Total 1.4 mg/dl (0.2-1.0); Calcium 7.9 mg/dl (8.6-10.3); Magnesium 1.4 mg/dl (1.7-2.4); Potassium 3.4 mmol/L (3.5-5.1)
[2023-08-05 07:39] LABS: Albumin Globulin Ratio 0.9 (0.9-2); BUN Creatinine Ratio 13.3 (10-20); Creatinine Clr Calc Pharmacy 156.5 ml/min; Est GFR (African American) 136.8 ml/min; Est GFR (Non-African American) 118.1 ml/min; Globulin 3.5 gm/dl (2.5-4.0); Phosphorus 4.7 mg/dl (2.5-4.9); Total Protein 6.6 gm/dl (6.0-8.3)
[2023-08-05] MEDS: POTASSIUM CHLORIDE CRTAB 20 MEQ TABCR PO STA (08:40)
[2023-08-05] MEDS: MAGNESIUM SULFATE / D5W 1 GM/100 ML BAG IV SCH (08:45)
--- NOTE | 2023-08-05 16:00 | Hospitalist Progress Note ---
Date of Service August 05, 2023 Assessment & Plan (1) Alcohol withdrawal: Plan: 47-year-old male with past med history significant for pancreatic cyst, secondary esophageal varices without bleeding, alcoholic cirrhosis of liver with ascites, chronic cholecystitis, coagulopathy, macrocytic anemia, ongoing alcoholism/dependence came in again for detoxification. Patient reports he started drinking again few days after discharge but now would like to get detoxified. He denies any fever or chills. He is being managed for the following Alcohol use disorder Alcohol withdrawal Alcohol intoxication History of multiple admission with alcohol withdrawal. Reports drinking a bottle of vodka every day Blood alcohol level of 393 on admission -Started on Librium taper with as needed Ativan. Continue -Folic acid, thiamine -hold Librium if sleeping/lethargic. -Telemetry monitoring, LARISA S protocol Pt now declines inpatient rehab placement as of now. ? naltrexone on dc, pt agreeable. Alcoholic hepatitis: Good prognosis with computed Madrey DF score of 5.7 points at presentation. follow LFT for trends. Alcoholic cirrhosis of liver with ascites Esophageal varices Continue home nadolol and Protonix. c/w Lasix and Aldactone . Monitor for volume overload f/u w/ hepatology on dc. Gallstones Chronic cholecystitis on ursodiol DVT prophylaxis: Heparin subcu. Disposition: Med/tele, ? dc in next 1-2 days. Full code Text document was generated using [employer] voice recognition software. It may contain grammatical or spelling errors. Kindly contact undersigned for clarification of any documentation item in question. Admission and Anticipated Discharge Date Admission Date: August 01, 2023 Subjective Patient was seen and examined at bedside. Patient was lying in bed, on room air, resting comfortably. Patient upper extremity still tremulous though improving, patient denies any pain or headache or dizziness. Required prn ativan 2 mg last evening despite being on librium taper, will monitor overnight for any signs of withdrawal. Patient reports eating okay. Patient denies any diarrhea. reports some nausea b ut improving. Pt now denies inpatient rehab and states he will go with outpatient rehab. Physical Exam Physical Exam: GENERAL: Flat affect, tremulous, obese, no respiratory distress SKIN: Normal color, warm HEENT: [place] palpebral conjunctivae, no ptosis, moist buccal mucosa NECK : Supple, no tenderness CHEST : CTA, no tenderness HEART : RRR, no obvious murmurs ABDOMEN: Some distention, no tenderness EXTREMITIES : No LE swelling/tenderness, no other conspicuous deformities noted NEUROLOGIC : Coherent, no facial asymmetry, tremulous, no other gross focality Results & Data Results & Data Vital Signs (Past 12 Hours) Vital Signs Temp Pulse Pulse Resp BP BP Pulse Ox 08/05/23 15:47 36.5 C 60 14 102/64 93 08/05/23 14:57 59 L 08/05/23 11:41 36.3 C L 86 20 122/75 93 08/05/23 07:41 36.6 C 58 L 15 132/82 96 08/05/23 05:57 51 L O2 Del Method 08/05/23 15:47 Room Air 08/05/23 14:57 08/05/23 11:41 Room Air 08/05/23 07:41 Room Air 08/05/23 05:57
[2023-08-06 07:19] LABS: Albumin Globulin Ratio 0.9 (0.9-2); Albumin Level 3.1 gm/dl (3.4-5.0); BUN Creatinine Ratio 8.6 (10-20); Bilirubin,Total 1.2 mg/dl (0.2-1.0); Calcium 7.8 mg/dl (8.6-10.3); Est GFR (Non-African American) 104.4 ml/min; Globulin 3.5 gm/dl (2.5-4.0); Magnesium 1.6 mg/dl (1.7-2.4); Phosphorus 3.9 mg/dl (2.5-4.9); Potassium 3.6 mmol/L (3.5-5.1); Total Protein 6.6 gm/dl (6.0-8.3)
[2023-08-06] MEDS: ONDANSETRON 2 MG OD TAB PO ONE (10:26)
--- NOTE | 2023-08-06 16:15 | Discharge Summary ---
Date of Service August 06, 2023 Admission HPI Per Admitting Provider History obtained from patient and records. Medical history significant for alcoholic cirrhosis, history of esophageal varices, history of alcohol withdrawal seizures, ongoing alcohol abuse. Recurrent admissions (almost monthly) since October 2022. Recent confinement 2 weeks ago for alcohol withdrawal. Patient started drinking alcohol again a few days after discharge from the hospital. Denies depression or suicidality. Patient trying to cut down on drinking since yesterday. Patient noted to be shaky by family. No chest pain, no SOB. Patient brought by family to ER for evaluation. Medical History as above Surgical History : Tonsillectomy Family History : DM, asthma, prostate cancer, stroke Personal/Social history : Non-smoker, alcohol abuse, currently unemployed Admission Exam Per Admitting Provider GENERAL: Flat affect, tremulous, obese, no respiratory distress SKIN: Normal color, warm HEENT: [place] palpebral conjunctivae, no ptosis, dry buccal mucosa NECK : Supple, no tenderness CHEST : CTA, no tenderness HEART : RRR, no obvious murmurs ABDOMEN: Some distention, no tenderness EXTREMITIES : No LE swelling/tenderness, no other conspicuous deformities noted NEUROLOGIC : Coherent, no facial asymmetry, tremulous, no other gross focality Principal Diagnosis Alcohol use disorder Alcohol withdrawal Alcohol intoxication Discharge Exam GENERAL: Alert, oriented X 3; not in any distress SKIN: Normal color, warm HEENT: [place] palpebral conjunctivae, no ptosis, moist buccal mucosa NECK : Supple, no tenderness CHEST : CTA, no tenderness HEART : RRR, no obvious murmurs ABDOMEN: Some distention, no tenderness EXTREMITIES : No LE swelling/tenderness, no other conspicuous deformities noted NEUROLOGIC : Coherent, no facial asymmetry no tremors Discharge Data Allergies Allergy/AdvReac Type Severity Reaction Status Date / Time aspirin AdvReac Unknown THINS Verified 08/01/23 20:13 BLOOD, NOSE BLEEDS Consultations 08/01/23 20:46 ED Decision to Admit Stat Ordered Studies 08/01/23 19:03 CT cervical spine wo con Stat CT head/brain wo con Stat Hospital Course (1) Alcohol withdrawal: 47-year-old male with past med history significant for pancreatic cyst, secondary esophageal varices without bleeding, alcoholic cirrhosis of liver with ascites, chronic cholecystitis, coagulopathy, macrocytic anemia, ongoing alcoholism/dependence came in again for detoxification. Patient reports he started drinking again few days after discharge but now would like to get detoxified. He denies any fever or chills. He was managed for the following Alcohol use disorder Alcohol withdrawal Alcohol intoxication History of multiple admission with alcohol withdrawal. Reports drinking a bottle of vodka every day Blood alcohol level of 393 on admission During the hospitalization, he was treated with Librium taper, gabapentin and alcohol withdrawal protocol. At the time of the discharge, he was alert oriented x 3; not in alcohol withdrawal. Recommended to follow-up with his primary care doctor and obtain referral to addiction medicine for consideration of starting on alcohol use disorder medication. He was agreeable with the plan Please note the above document was generated using voice recognition software. It may contain grammatical, syntax or spelling errors. Any formal questions or concerns about the content, text or information contained within the body of this dictation should be directly addressed to the provider for clarification Total Time Total Time Spent Total Time Spent (In Minutes): 45 Total Time Includes: Examination of the Patient, Discharge Planning, Medication Reconciliation, Communication With Other Providers and Other Discharge Plan Discharge Items Patient Disposition: Home - Self-Care Reason For Visit: ETOH WITHDRAWAL Discharge Diagnosis: Alcohol use disorder Alcohol withdrawal Alcohol intoxication Activity: Resume your previous activity Non-emergency contact: Primary Care Provider Call non-emergency contact if: you have any medication questions and your symptoms worsen Follow-up/Referrals: Michelle Borrego DO [Primary Care Provider] - (Date & Time 08/12/2023 9:40 AM Provider Dave Bertrand CRNP Department Family Medicine [facility] ) Diet: Regular Addtl Attending Provider Instructions: You were admitted to the hospital due to alcohol withdrawal. You underwent detoxification during the hospitalization. Please go to the outpatient rehab as we discussed. Pending Studies at Discharge: No Stand-Alone Forms: My Kwarter, Smoking Cessation Medications and DC Order Prescriptions: Continued buspirone 5 mg Tablet 5 mg PO AMHS potassium chloride 10 mEq Tablet Extended Release 10 meq PO QAM nadolol 20 mg Tablet 20 mg PO QPM ursodiol 300 mg Capsule 300 mg PO BID zolpidem [Ambien] 5 mg Tablet 5 mg PO HS PRN (Reason: Sleep) spironolactone 25 mg tablet 25 mg PO QAM furosemide 20 mg tablet 20 mg PO QAM citalopram 10 mg tablet 10 mg PO QAM pantoprazole 40 mg tablet,delayed release (DR/EC) 40 mg PO QAM thiamine HCl (vitamin B1) 100 mg Tablet 100 mg PO QAM Qty: 30 0RF folic acid 1 mg Tablet 1 mg PO QAM Qty: 30 0RF gabapentin 300 mg capsule 300 mg PO TID cyanocobalamin (vitamin B-12) [Vitamin B-12] 250 mcg tablet 250 mcg PO QAM Discharge Orders: Discharge Order (Routine); Ordered 08/06/23 Ordered By: Vlad Castañeda Admission Data Admit Date/Time: 08/01/23 21:48 Attending Provider: Vlad Castañeda Admit Provider: Srinivasan Mireles Primary Care Provider: Michelle Borrego Other Providers: Srinivasan Mireles Other Interventions: Discharge Summary Assessment (RN) Last Done: 08/06/23 13:21
== END 2023-08-06 14:38 | disposition home or self-care (01) | DRG 897 ==
LOC: ED 16:36 → 2N 21:48 → SUATTDRO 21:48 → 2N 08-02 00:28

== ENCOUNTER 2023-08-24 06:54 | Inpatient (IN) ==
--- OUTSIDE RECORDS SUMMARY | 2023-08-24 06:59 | External Medical Summary | Summary of Care ---
Author Name Unknown Organization [facility] [address] [facility] [address] Phone [phone] Care Team Providers Care Weather Forecaster Name Role Phone Michelle Borrego Primary Care Provider [phone] Reason for Visit * Reason Onset Date Comments Hospital Follow-Up 08/07/2023 Jori for [facility] Encounter Details Date Type Department Care Team (Late st Contact Info) Description 08/07/2023 [place] [place] [address] Erin Jolley, FELIPE Hospital Follow-Up ([facility]ori for [facility]) Allergies Active Allergy Reactions Criticality Noted Date Comments Aspirin Other (Please comment) 02/12/2016 Reports having a bloody nose. documented as of this encounter (statuses as of 08/12/2023) Medications Medication Sig Dispensed Refills Start Date [...] morning. In the morning.. 0 04/14/2023 Active Gabapentin 300 MG Oral [...] for Sleep. 30 Tablet 0 07/28/2023 Active metroNIDAZOLE 500 MG Oral Tablet (Flagyl) Take 1 Tablet by mouth in the morning and 1 Tablet at noon and 1 Tablet before bedtime. 0 04/20/2023 4 Discontinued Vancomycin HCl 125 MG Oral Capsule (Vancocin) 1 Capsule. 0 04/14/2023 4 Discontinued Lidocaine 5 % External Patch (Lidoderm) Place 1 Patch over 12 hours topically on the skin daily. 30 Patch 0 07/28/2023 4 Discontinued documented as of this encounter (statuses as of 08/12/2023) Active Problems Problem Noted Date Diagnosed Date [...] as of this encounter (statuses as of 08/12/2023) Resolved Problems Problem Noted Date Diagnosed Date [...] as of this encounter (statuses as of 08/12/2023) Immunizations Name Administration Dates Next Due COVID-19 [...] Answer Date Recorded PHQ-2 Score 0 12/21/2019 Hunger Vital Sign Answer Date Recorded Within the past 12 months, y ou worried that your food would run out before you got the money to buy more. Patient declined Within the past 12 months, t he food you bought just didn't last and you didn't have money to get more. Patient declined Sex and Gender Information Value Date Recorded Sex Assigned at Male 08/11/2023 10:23 PM EDT Gender Identity Male 08/11/2023 10:23 PM EDT Sexual Orientation Straight 08/11/2023 10 :23 PM EDT Job Start Date Occupation Industry Not on [...] Telephone Encounter - Erin Jolley RN - 08/12/2023 4:19 PM EDT Patient did keep hospital follow up appointment today * Telephone Encounter - Erin Jolley RN - 08/11/2023 10:01 AM EDT I did message Jacklyn Dong to let her know patient is scheduled tomorrow for hospital follow up. * Telephone Encounter - Nicolette Lamar RN - 08/08/2023 11:04 AM EDT Transitions of Care Note Reason for Referral:Recent Admission Phone visit for follow up: JORI Admitted to: [facility], Date: 08.01.23 Discharged to: home, Date: 08.06.23 Diagnosis driving hospitalization: Alcohol use disorder Alcohol withdrawal Alcohol intoxication Called pt and got an immediate message stating "this person is unable to accept calls at this time." Another myg message also sent to pt. * Telephone Encounter - Erin Jolley RN - 08/07/2023 3:42 PM EDT Transitions of Care Note Reason for Referral:Recent Admission Phone visit for follow up: JORI Admitted to: [facility], Date: 08.01.23 Discharged to: home, Date: 08.06.23 Diagnosis driving hospitalization: Alcohol use disorder Alcohol withdrawal Alcohol intoxication Blood alcohol level of 393 on admission Patient brought by family to ER for evaluation. Plan to per hospital discharge iis to follow up with pcp for referral to addiction medicine for consideration of starting on alcohol use disorder medication. He was agreeable with the plan in the hospital. Tried to call patient but phone is not excepting phone calls, we have tried to call patient multiple times due to frequent hospital visits. I will send a MYG message to patient. Message sent to Nicolette to follow up if needed Erin Jolley RN documented in this encounter Plan of Treatment Upcoming Encounters Date Type Department Care Team (Late st Contact Info) Description 09/01/2023 8:15 AM EDT Imaging Radiology [address] [place] [id number] 09/08/2023 3:00 PM EDT Office Visit Gastroenterology, [facility] [address] [place] [address] Anatoliy Meza CRNP [address] [place] [address] 02/03/2024 8:30 AM EST Office Visit Family Medicine [address] [place] [phone] [place] [address] Scheduled Procedures Name Priority Associated Diagnoses Date/Ti [...] the patient have Health Care Power of Theatrical Agent? No Code Status History Code Status Date [...] the patient have Health Care Power of Theatrical Agent? No Full Code 02/10/2016 5:50 PM 02/20/2016 12:09 AM Th is order reflects the patients wishes and were consensually agreed upon. Question Answer Comments Discussion of Advance Directives occurred with: Patient Does the patient have a Living Will? No Does the patient have Health Care Power of Theatrical Agent? No Full Code 01/15/2016 3:25 PM 01/18/2016 6:24 PM Thi s order reflects the patients wishes and were consensually agreed upon. Question Answer Comments Discussion of Advance Directives occurred with: Patient Does the patient have a Living Will? No Does the patient have Health Care Power of Theatrical Agent? No Care Teams Weather Forecaster Relationship Specialty Start Date End Date Michelle Borrego DO [address] [place] [address] [place] [id number] PCP - General Internal Medicine 06/07/16 documented as of this encounter
--- OUTSIDE RECORDS SUMMARY | 2023-08-24 06:59 | External Medical Summary | Summary of Care ---
Author Name Unknown Organization [facility] Address [address] [facility] [place] [address] Phone [phone] Care Team Providers Care Residential Mortgage Underwriter Name Role Phone Michelle Borrego Primary Care Provider [phone] Reason for Visit * Reason Onset Date Comments Test Results Lab 08/15/2023 Encounter Details Date Type Department Care Team (Late st Contact Info) Description 08/15/2023 Telephone Family Medicine [address] [place] [phone] Dave Bertrand CR[address] [place] [id number] Test Results Lab Allergies Active Allergy Reactions Criticality Noted Date Comments Aspirin Other (Please comment) 02/12/2016 Reports having a bloody nose. documented as of this encounter (statuses as of 08/15/2023) Medications Medication Sig Dispensed Refills Start Date [...] for Sleep. 30 Tablet 0 07/28/2023 Active Furosemide 20 MG Oral Tablet (Lasix) Take 1 Tablet by mouth in the morning. In the morning.. 0 Active documented as of this encounter (statuses as of 08/15/2023) Active Problems Problem Noted Date Diagnosed Date [...] as of this encounter (statuses as of 08/15/2023) Resolved Problems Problem Noted Date Diagnosed Date Resolved Date History of alcohol abuse 06/01/2018 Abdominal pain 05/13/2017 06/01/2018 Alcohol withdrawal seizure w ithout complication 06/07/2016 06/01/2018 Hyponatremia 04/16/2016 06/01/2018 Generalized abdominal pain 04/16/2016 0 06/07/2016 Nausea without vomiting 04/16/2016 03/06/2018 Seizures 01/18/2016 06/07/2016 Delirium tremens 01/18/2016 02/12/2017 Alcohol withdrawal 01/18/2016 7 Tobacco use disorder 01/18/2016 019 Thrombocytopenia 01/18/2016 12/21/2019 Alcohol abuse 01/18/2016 06/01/2018 documented as of this encounter (statuses as of 08/15/2023) Immunizations Name Administration Dates Next Due COVID-19 [...] encounter Miscellaneous Notes * Telephone Encounter - Dave Bertrand CRNP - 08/15/2023 4:24 PM EDT See My G. documented in this encounter Plan of Treatment Upcoming Encounters Date Type Department Care Team (Late st Contact Info) Description 09/01/2023 8:15 AM EDT Imaging Radiology [address] [place] [address] 09/08/2023 3:00 PM EDT Office Visit Gastroenterology, [facility] [address] [place] [address] Anatoliy Meza CRNP [address] [place] [address] 02/03/2024 8:30 AM EST Office Visit Family Medicine [address] [place] [phone] [address] [place] [address] Scheduled Procedures Name Priority Associated Diagnoses Date/Ti [...] 08/17/2022 Colorectal Cancer Screening 08/23/2025 Diabetes Screening 08/11/2026 08/12/2023, 0 05/14/2023, 02/11/2023, Additional history exists DTaP,Tdap,and Td Vaccines (2 [...] the patient have Health Care Power of Software Team Leader? No Code Status History Code Status Date [...] the patient have Health Care Power of Software Team Leader? No Full Code 02/10/2016 5:50 PM 02/20/2016 12:09 AM Th is order reflects the patients wishes and were consensually agreed upon. Question Answer Comments Discussion of Advance Directives occurred with: Patient Does the patient have a Living Will? No Does the patient have Health Care Power of Software Team Leader? No Full Code 01/15/2016 3:25 PM 01/18/2016 6:24 PM Thi s order reflects the patients wishes and were consensually agreed upon. Question Answer Comments Discussion of Advance Directives occurred with: Patient Does the patient have a Living Will? No Does the patient have Health Care Power of Software Team Leader? No Care Teams Residential Mortgage Underwriter Relationship Specialty Start Date End Date Michelle Brorego DO [address] [place] [address] [place] [address] PCP - General Internal Medicine 06/07/16 documented as of this encounter
--- OUTSIDE RECORDS SUMMARY | 2023-08-24 06:59 | External Medical Summary | Summary of Care ---
Author Name Unknown Organization [facility] Address [address] [place] [address] Phone [phone] Care Team Providers Care Candle Making Supervisor Name Role Phone BorregoVikashMichellebirgit Guerra Primary Care Provider [phone] Reason for Visit * Reason Comments Outpatient Testing Encounter Details Date Type Department Care Team (Late st Contact Info) Description 08/12/2023 9:30 AM EDT Laboratory Laboratory [address] [place] [phone] [place] [address] Alcohol abuse; [employer] Other*[id number]; Alcohol use disorder; Alcoholic cirrhosis of liver with ascites (HCC) [...] Description 09/01/2023 8:15 AM EDT Imaging Radiology [address] [place] [address] 09/08/2023 3:00 PM EDT Office Visit Gastroenterology, [facility] [address] [address] Anatoliy Meza CRNP [address] [place] [address] 02/03/2024 8:30 AM EST Office Visit Family [address] [place] [phone] [place] Michelle Guerra[address] [place] [address] Pending Results Name Type Priority Associated Diagnoses Date /Time MYCODE INITIAL ADULT Lab Routine [employer] Other*[id number] 08/12/2023 9:19 AM EDT COMPREHENSIVE METABOLIC PANEL Lab Routine Alcohol use disorder Alcoholic cirrhosis of liver with ascites (HCC) 08/12/2023 9:19 AM EDT CBC WITH WBC DIFFERENTIAL AND ANEMIA REFLEX WORKUP Lab Routine Alcoholic cirrhosis of liver with ascites (HCC) 08/12/2023 9:19 AM EDT MYCODE INITIAL ADULT-PINK Lab Routine [employer] Other*[id number] 08/12/2023 9:19 AM EDT MYCODE SST1 Lab Routine [employer] Other*[id number] 08/12/2023 9:19 AM EDT MYCODE SST2 Lab Routine [employer] Other*[id number] 08/12/2023 9:19 AM EDT ANEMIA CBC Lab Routine Alcoholic cirrhosis of liver with ascites (HCC) 08/12/2023 9:19 AM EDT DIFFERENTIAL, AUTOMATED Lab Routine Alcoholic cirrhosis of liver with ascites (HCC) 08/12/2023 9:19 AM EDT ANEMIA REFLEX CHEMISTRY HOLD Lab Routine Alcoholic cirrhosis of liver with ascites (HCC) 08/12/2023 9:19 AM EDT BILIRUBIN, DIRECT Lab Routine Alcohol abuse 08/12/2023 9:19 AM EDT Scheduled Procedures Name Priority Associated Diagnoses Date/Ti [...] as of this encounter Visit Diagnoses Diagnosis Alcohol abuse Alcohol abuse, unspecified [employer] Other*[id number] Alcohol use disorder Alcoholic cirrhosis of liver with ascites (HCC) [...] the patient have Health Care Power of Tanner Rotary Drum Continuous Process? No Code Status History Code Status Date [...] the patient have Health Care Power of Tanner Rotary Drum Continuous Process? No Full Code 02/10/2016 5:50 PM 02/20/2016 12:09 AM Th is order reflects the patients wishes and were consensually agreed upon. Question Answer Comments Discussion of Advance Directives occurred with: Patient Does the patient have a Living Will? No Does the patient have Health Care Power of Tanner Rotary Drum Continuous Process? No Full Code 01/15/2016 3:25 PM 01/18/2016 6:24 PM Thi s order reflects the patients wishes and were consensually agreed upon. Question Answer Comments Discussion of Advance Directives occurred with: Patient Does the patient have a Living Will? No Does the patient have Health Care Power of Tanner Rotary Drum Continuous Process? No Care Teams Candle Making Supervisor Relationship Specialty Start Date End Date Michelle Borrego DO [address] [place] [address] [place] [address] PCP - General Internal Medicine 06/07/16 documented as of this encounter
--- OUTSIDE RECORDS SUMMARY | 2023-08-24 06:59 | External Medical Summary ---
Author Name Unknown Address Unknown Organization K01:[facility] [place] [address] [address] Laboratory Report Ordering Provider Test Date Status PAGE CAMPUZANO 08/12/2023 09:19:53 Final Observation Date Value Abnormality Reference (Units ) Status WBC, Total 08/12/2023 09:19:53 5.58 4.00-10.8 0 (K/uL) Final RBC 08/12/2023 09:19:53 4.78 4.50-5.25 (M/uL) Final Hemoglobin 08/12/2023 09:19:53 15.5 14.0-16.8 (g/dL) Final Anemia reflex testing trigge rs on a HGB < 12.0 for Females and HGB < 13.0 for Males in accordance with the WHO Anemia Guidelines
Anemia reflex testing triggers on a HGB < 12.0 for Females and HGB < 13.0 for Males in accordance with the WHO Anemia Guidelines HCT 08/12/2023 09:19:53 48.3 40.0-48.4 (%) Final MCV 08/12/2023 09:19:53 101.0 82.0-99.5 (fL) Final MCH 08/12/2023 09:19:53 32.4 27.0-34.0 (pg) Final MCHC 08/12/2023 09:19:53 32.1 32.0-36.0 (g/dL) Final RDW 08/12/2023 09:19:53 12.8 11.5-15.5 (%) Final Platelets 08/12/2023 09:19:53 187 140-400 (K /uL) Final MPV 08/12/2023 09:19:53 10.9 6.6-11.1 ( fL) Final Nucleated erythrocytes/100 leukocytes [Ratio] in Blood by Automated count 08/12/2023 09:19:53 0 <=0 (/100 WBCs) Fi nal Performing Location LABORATORY [facility] - [address] [place] [address]
--- OUTSIDE RECORDS SUMMARY | 2023-08-24 06:59 | External Medical Summary | Summary of Care ---
Author Name Unknown Organization [facility] Address [address] [place] [address] Phone [phone] Care Team Providers Care Senior Software Analyst Name Role Phone Borrego Michelle Guerra Primary Care Provider [phone] Reason for Referral * Evaluate & Treat - Unlimited Visits (Within 10 days (routine)) - Pending Review Specialty Diagnoses / Procedures Referred By Santiago velásquez Referred To Contact Addiction Medicine Diagnoses Alcohol use disorder Dave Bertrand CRNP [address] [place] [address] [place] [address] Referral ID Status Reason Start Date Expiration Date Visits Requested Visits Authorized [id number] Pending Review Specialty Services Required 08/12/[phone] Question Answer Referral Priority Within 10 days (routine) Where should this appointment be scheduled? External Was the patient hospitalized for their addiction in the past in the past 6 months? Yes Did this include Endocarditis or Soft Tissue Infection? No Has the patient overdosed on any substance in the past? Unknown Reason for Referral: Alcohol Reason for Visit * Reason Onset Date Comments Hospital Follow-Up Hospital Follow-Up 08/12/2023 Encounter Details Date Type Department Care Team (Late st Contact Info) Description 08/12/2023 9:40 AM EDT Office Visit Family Medicine [address] [place] [phone] Dave Bertrand CRNP [address] [place] [address] [place] [address] Hospital discharge follow-up*; Alcohol use disorder; Alcoholic cirrhosis of liver [...] the morning. In the morning.. 0 Active metroNIDAZOLE 500 MG Oral Tablet (Flagyl) [...] Sign Reading Time Taken Comments Blood Pressure 90/54 08/12/2023 8:27 AM EDT Pulse 75 08/12/2023 8:27 AM EDT Temperature 36.4 C (97.6 F) 08/12/2023 8:27 AM ED T Respiratory Rate - - Oxygen Saturation 97% 08/12/2023 8:27 AM EDT Inhaled Oxygen Concentration - - Weight 81.2 kg (179 lb) 08/12/2023 8:27 AM EDT Height 170.2 cm (5' 7") 08/12/2023 8:27 AM EDT Body Mass Index 28.04 08/12/2023 8:27 AM EDT documented in this encounter Functional Status Functional [...] as of this encounter Progress Notes * Dave Bertrand CRNP - 08/12/2023 8:34 AM EDT Images from the original note were not included. History of Present Illness Darrel Guillory is a 47 year old male that presents for Hospital Follow-Up Admitted to [facility] on 08/01/23 for alcohol withdraw. Discharged on 08/06/23. Past medical hx o f secondary esophageal varices without bleeding, alcoholic cirrhosis with ascites, chronic cholecystitis, macrocytic anemia. Has been in and out of the hospital for alcoholism and detox. Most recently was treated in the hospital with Librium taper and gabapentin. Since being discharged did follow up with addiction counselor in [place] on 4 days ago in which theydid an intake evaluation and are going to set up a once monthly meeting and then a once monthly phone call. Was also given information for local AA meetings. Has not attended any meetings yet. Admits that he did restart drinking and is consuming 4-5 beers a day. Denies any tremors, shortnessof breath, chest pain, abdominal pain, N/V, bloody stool. Had discussed with discharging physician starting naltrexone, but was on oxycodone in the hospital and needed to be off of it for 1 week before starting naltrexone. Patient Active Problem List Diagnosis Code Macrocytic anemia D53.9 Coagulopathy (HCC) D68.9 Alcoholic cirrhosis of liver with ascites (HCC) K70.31 Secondary esophageal varices without bleeding (HCC) I85.10 Pancreatic cyst K86.2 Controlled substance agreement signed Z79.899 Pre-transplant evaluation for chronic liver disease Z01.818 Chronic cholecystitis K81.1 Biliary colic K80.50 Persistent insomnia G47.00 Alcohol withdrawal syndrome with complication (HCC) F10.939 Alcohol use disorder F10.90 Current Outpatient Medications Medication Sig Dispense Refill [...] mouth in the morning. 90 Tablet 3 Ciprofloxacin HCl 500 MG Oral Tablet (Cipro) Take 1 Tablet by mouth in the morning and 1 Tablet before bedtime. Thiamine HCl 100 MG Oral Tablet (vitamin B-1) Take 1 Tablet by mouth in the morning. In the morning.. Gabapentin 300 MG Oral Capsule (Neurontin) Take 1 Capsule by mouth in the morning and 1 Capsule at noon and 1 Capsule before bedtime. 90 Capsule 5 Vitamin B-12 250 MCG Oral Tablet (Cyanocobalamin) Take 1 Tablet by mouth in the morning. 30 Tablet 5 Pantoprazole Sodium 40 MG Oral Tablet Delayed Release (Protonix) Take 1 Tablet by mouth in the morning. 90 Tablet 1 Zolpidem Tartrate 5 MG Oral Tablet (Ambien) Take 1 Tablet by mouth at bedtime as needed for Sleep. 30 Tablet 0 Furosemide 20 MG Oral Tablet (Lasix) Take 1 Tablet by mouth in the morning. In the morning.. No current facility-administered medications for this visit. Review of patient's allergies indicates: Allergen Reactions Aspirin Other (Please comment) Reports having a bloody nose. Past Medical History: Diagnosis Date Abdominal pain 05/13/2017 Alcohol abuse 01/18/2016 Alcohol withdrawal (HCC) 12/08/2022 Admitted [facility] 12/08, discharged 12/12 Alcohol withdrawal (HCC) 03/13/2023 [facility], discharged 03/18 Alcohol withdrawal seizure without complication (HCC) 06/07/2016 Alcohol withdrawal syndrome (HCC) 11/20/2022 admitted [facility] with numbness and tingling Chronic [...] performed by Jamil Bond MD at OR [facility] EGD, FLEXIBLE, DIAGNOSTIC 06/11/2018 esophageal varices, portal hypertensive gastropathy, repeat 2-4 mo / [facility] EGD, FLEXIBLE, DIAGNOSTIC 05/09/2021 normal / ESOPHAGOGASTRODUODENOSCOPY (EGD), FLEXIBLE, TRANSORAL, DIAGNOSTIC performed by Matt Boyd MD at ENDOSCOPY [facility] REMOVAL OF TONSILS, UNDER AGE 10 Social History Socioeconomic History Marital status: Single [...] Resource Strain: Not on file Food Insecurity: Patient Declined (08/11/2023) Hunger Vital Sign Worried About Running Out of Food in the Last Year: Patient declined Ran Out of Food in the Last Year: Patient declined Transportation Needs: Not on file Physical Activity: Not on file Stress: Not on file Social Connections: Not on file Intimate Partner Violence: Not on file Housing Stability: Not on file Physical Exam Vitals: 08/12/23 0827 Temp: 36.4 C (97.6 F) Pulse: 75 SpO2: 97% BP: 90/54 BMI: 28.03 General: A&Ox3 and no distress Head: Normocephalic and atraumatic Heart: regular rate & rhythm, no murmur, no gallops, S-1 normal, and S-2 normal Lungs: normal respiratory rate and rhythm, lungs clear to auscultation Abdomen: abdomen soft, non-tender, normal bowel sounds, and no masses or organomegaly Extremities: no edema Skin: warm and dry Hospital labs on 08/01/23 ALT 189 / AST 349 / bili 2 / normal CBC ALT/AST elevated compared to previous in 2023. Assessment and Plan Hospital discharge follow-up - DISCH MED RECON CUR MED LIS Alcohol use disorder - COMPREHENSIVE METABOLIC PANEL; Future - ALCOHOL/CHEMICAL DEPENDENCY REFERRAL OP Alcoholic cirrhosis of liver with ascites (HCC) - COMPREHENSIVE METABOLIC PANEL; Future - CBC WITH WBC DIFFERENTIAL AND ANEMIA REFLEX WORKUP; Future Plan - BP on the lower side / asymptomatic / encourage increase water intake - check home BP report any readings < 90/50 - will update labs today / if LFT's are improved will consider starting naltrexone while waiting toget in to addiction medicine - continue to follow up outpatient CRS and will AA meetings Wrap-Up Follow-up: Return if symptoms worsen or fail to improve. | Check-out note: As scheduled with Dr. Borrego in January Time: I spent a total of 20-29 minutes (exact time 29 mins) on the date of service in preparation, delivery, and documentation of the care provided to Darrel Guillory excluding any time spent in the performance of separately billed services. documented in this encounter Nursing Notes * Malathi Fernandez LPN - 08/12/2023 8:27 AM EDT Hospital follow up Asking to start Naltrexone? Hospital wouldn't start because of Oxy usage. Has not had an oxycodone since 08/05/23 documented in this encounter Plan of Treatment Upcoming Encounters Date Type Department Care Team (Late st Contact Info) Description 09/01/2023 8:15 AM EDT Imaging Radiology [address] [place] [address] 09/08/2023 3:00 PM EDT Office Visit Gastroenterology, [facility] [address] [place] [address] Anatoliy Meza CRNP [address] [place] [address] 02/03/2024 8:30 AM EST Office Visit Family Medicine [address] [place] [phone] Michelle Borrego [address] [place] [address] Pending Results Name Type Priority Associated Diagnoses Date /Time COMPREHENSIVE METABOLIC PANEL Lab Routine Alcohol use disorder Alcoholic cirrhosis of liver with ascites (HCC) 08/12/2023 9:19 AM EDT CBC WITH WBC DIFFERENTIAL AND ANEMIA REFLEX WORKUP Lab Routine Alcoholic cirrhosis of liver with ascites (HCC) 08/12/2023 9:19 AM EDT Scheduled Orders Name Type Priority Associated Diagnoses Orde r Schedule COMPREHENSIVE METABOLIC PANEL Lab Routine Alcohol use disorder Alcoholic cirrhosis of liver with ascites (HCC) Expected: 08/12/2023 (Approximate), Expires: 08/11/2024 CBC WITH WBC DIFFERENTIAL AND ANEMIA REFLEX WORKUP Lab Routine Alcoholic cirrhosis of liver with ascites (HCC) Expected: 08/12/2023 (Approximate), Expires: 08/11/2024 Scheduled Procedures Name Priority Associated Diagnoses Date/Ti me ESOPHAGOGASTRODUODENOSCOPY ( EGD), FLEXIBLE, TRANSORAL, DIAGNOSTIC Recall Alcoholic cirrhosis of liver with ascites (HCC) Scheduled Referrals Name Type Priority Associated Diagnoses Orde r Schedule ALCOHOL/CHEMICAL DEPENDENCY REFERRAL OP Referral Within 10 days (routine) Alcohol use disorder Ordered: 08/12/2023 Health Maintenance Due Date Last Done Comments [...] discharge follow-up- Primary Other follow-up examination Alcohol use disorder Alcoholic cirrhosis of liver [...] the patient have Health Care Power of Lumber Piler? No Code Status History Code Status Date [...] the patient have Health Care Power of Lumber Piler? No Full Code 02/10/2016 5:50 PM 02/20/2016 12:09 AM Th is order reflects the patients wishes and were consensually agreed upon. Question Answer Comments Discussion of Advance Directives occurred with: Patient Does the patient have a Living Will? No Does the patient have Health Care Power of Lumber Piler? No Full Code 01/15/2016 3:25 PM 01/18/2016 6:24 PM Thi s order reflects the patients wishes and were consensually agreed upon. Question Answer Comments Discussion of Advance Directives occurred with: Patient Does the patient have a Living Will? No Does the patient have Health Care Power of Lumber Piler? No Care Teams Senior Software Analyst Relationship Specialty Start Date End Date Michelle Borrego DO [address] [place] [address] [place] [address] PCP - General Internal Medicine 06/07/16 documented as of this encounter
--- OUTSIDE RECORDS SUMMARY | 2023-08-24 06:59 | External Medical Summary | Summary of Care ---
Author Name Unknown Organization [facility] Address [address] [place] [address] Phone [phone] Care Team Providers Care Cinetechnician Name Role Phone Michelle Borrego Primary Care Provider [phone] Encounter Details Date Type Department Care Team (Late st Contact Info) Description 08/18/2023 Orders Only Outcomes Research Department [address] [place] [address] Nadiya Buckley CHRA [employer] Research Other*[id number] Allergies Active Allergy Reactions Criticality Noted Date Comments Aspirin Other (Please comment) 02/12/2016 Reports having a bloody nose. documented as of this encounter (statuses as of 08/18/2023) Medications Medication Sig Dispensed Refills Start Date [...] the morning and 1 Tablet before bedtime. 04/20/2023 Active Thiamine HCl 100 MG Oral Tablet (vitamin B-1) Take 1 Tablet by mouth in the morning. In the morning.. 04/14/2023 Active Gabapentin 300 MG Oral Capsule [...] bedtime as needed for Sleep. 30 Tablet 07/28/2023 Active Furosemide 20 MG Oral Tablet (Lasix) Take 1 Tablet by mouth in the morning. In the morning.. Active documented as of this encounter (statuses as of 08/18/2023) Active Problems Problem Noted Date Diagnosed Date [...] as of this encounter (statuses as of 08/18/2023) Resolved Problems Problem Noted Date Diagnosed Date [...] as of this encounter (statuses as of 08/18/2023) Immunizations Name Administration Dates Next Due COVID-19 [...] 09/01/2023 8:15 AM EDT Imaging Radiology [address] [place] [address] 09/08/2023 3:00 PM EDT Office Visit Gastroenterology, [facility] [address] [place] [address] Anatoily Meza CRNP [address] [place] [address] 02/03/2024 8:30 AM EST Office Visit Family Medicine [address] [place] [phone] [place] Michelle Guerra, [address] [place] [address] Scheduled Orders Name Type Priority Associated Diagnoses Orde r Schedule MYCODE SUBSEQUENT ADULT Lab Routine MyCode Research Other*[id number] Every 6 Months for 2 Occurrences starting 08/18/2023 until 09/06/2024 Scheduled Procedures Name Priority Associated Diagnoses Date/Ti [...] this encounter Visit Diagnoses Diagnosis MyCode Research Other*[id number] documented in this encounter Advance Directives * Full Code (Latest Code Status on File) Date Activated Date Inactivated Comments 07/11/2019 11:18 PM 07/16/2019 4:51 PM This order reflects the patients wishes and were consensually agreed upon. Question Answer Comments Discussion of Advance Directives occurred with: Patient Does the patient have a Living Will? No Does the patient have Health Care Power of Attor ricky? No * Full Code Date Activated Date Inactivated Comments 05/13/2017 8:08 PM 05/15/2017 11:50 PM This order reflects the patients wishes and were consensually agreed upon. Question Answer Comments Discussion of Advance Directives occurred with: Patient * Full Code Date Activated Date Inactivated Comments 04/16/2016 8:06 PM 04/19/2016 8:21 PM This order r eflects the patients wishes and were consensually agreed upon. Question Answer Comments Discussion of Advance Directives occurred with: Not Discussed Does the patient have a Living Will? No Does the patient have Health Care Power of Attor ricky? No * Full Code Date Activated Date Inactivated Comments 02/10/2016 5:50 PM 02/20/2016 12:09 AM This orde r reflects the patients wishes and were consensually agreed upon. Question Answer Comments Discussion of Advance Directives occurred with: Patient Does the patient have a Living Will? No Does the patient have Health Care Power of Attor ricky? No * Full Code Date Activated Date Inactivated Comments 01/15/2016 3:25 PM 01/18/2016 6:24 PM This order reflects the patients wishes and were consensually agreed upon. Question Answer Comments Discussion of Advance Directives occurred with: Patient Does the patient have a Living Will? No Does the patient have Health Care Power of Attor ricky? No Care Teams Cinetechnician Relationship Specialty Start Date End Date Michelle Borrego DO [address] [place] [address] [place] [address] PCP - General Internal Medicine 06/07/16 documented as of this encounter
--- OUTSIDE RECORDS SUMMARY | 2023-08-24 06:59 | External Medical Summary ---
Author Name Unknown Address Unknown Organization K01:[facility] - [address] [place] [address] Laboratory Report Ordering Provider Test Date Status VIRGILIO JOSEPH 08/12/2023 09:19:53 Final Observation Date Value Abnormality Reference (Units ) Status CARLIE SPECIMEN-LAV 08/12/2023 09:19:53 Freezing of extracted DNA, whole blood and/or serum. Final Performing Location [facility] - [address] [place] [address]
--- OUTSIDE RECORDS SUMMARY | 2023-08-24 07:00 | External Medical Summary | Summary of Care ---
Author Name Unknown Organization [facility] Address [address] [facility] [place] [address] Phone [phone] Care Team Providers Care Director Business Development Name Role Phone Michelle Borrego Mari KEITA Primary Care Provider [phone] Reason for Visit * Reason Onset Date Comments Hospital Follow-Up 08/07/2023 [facility] for [facility] Encounter Details Date Type Department Care Team (Late st Contact Info) Description 08/07/2023 [address]phone [address] [place] [address] Erin Jolley, FELIPE Hospital Follow-Up ([facility] for [facility]) Allergies Active Allergy Reactions Criticality Noted Date Comments Aspirin Other (Please comment) 02/12/2016 Reports having a bloody nose. documented as of this encounter (statuses as of 08/11/2023) Medications Medication Sig Dispensed Refills Start Date [...] as of this encounter (statuses as of 08/11/2023) Active Problems Problem Noted Date Diagnosed Date [...] as of this encounter (statuses as of 08/11/2023) Resolved Problems Problem Noted Date Diagnosed Date [...] as of this encounter (statuses as of 08/11/2023) Immunizations Name Administration Dates Next Due COVID-19 [...] visit for follow up: JORI Admitted to: [facility], Date: 08.01.23 Discharged to: home, Date: 08.06.23 [...] visit for follow up: JORI Admitted to: [facility], Date: 08.01.23 Discharged to: home, Date: 08.06.23 [...] 9:40 AM EDT Office Visit Family Medicine [address] [place] [phone] Dave Bertrand CRNP [address] [place] [address] [place] [address] 09/01/2023 8:15 AM EDT Imaging Radiology [address] [place] [address] 09/08/2023 3:00 PM EDT Office Visit Gastroenterology, [facility] [address] [place] [address] Anatoliy Meza CRNP [address] [place] [address] 02/03/2024 8:30 AM EST Office Visit Family Medicine [address] [place] [phone] [address] [place] [address] Scheduled Procedures Name Priority Associated Diagnoses Date/Ti [...] the patient have Health Care Power of Hand Bulldozer? No Code Status History Code Status Date [...] the patient have Health Care Power of Hand Bulldozer? No Full Code 02/10/2016 5:50 PM 02/20/2016 12:09 AM Th is order reflects the patients wishes and were consensually agreed upon. Question Answer Comments Discussion of Advance Directives occurred with: Patient Does the patient have a Living Will? No Does the patient have Health Care Power of Hand Bulldozer? No Full Code 01/15/2016 3:25 PM 01/18/2016 6:24 PM Thi s order reflects the patients wishes and were consensually agreed upon. Question Answer Comments Discussion of Advance Directives occurred with: Patient Does the patient have a Living Will? No Does the patient have Health Care Power of Hand Bulldozer? No Care Teams Director Business Development Relationship Specialty Start Date End Date Michelle Borrego DO [address] [place] [address] [place] [address] PCP - General Internal Medicine 06/07/16 documented as of this encounter
--- OUTSIDE RECORDS SUMMARY | 2023-08-24 07:00 | External Medical Summary ---
Author Name Unknown Address Unknown Organization K01:[facility] - [address] [facility] [address] [place] [address] Laboratory Report Ordering Provider Test Date Status PAGE CAMPUZANO 08/12/2023 09:19:53 Final Observation Date Value Abnormality Reference (Units ) Status BUN 08/12/2023 09:19:53 5 Below low normal 6-20 (mg/dL) Final Creatinine 08/12/2023 09:19:53 0.8 0.6-1.2 (mg/dL) Final Glomerular filtration rate/1.73 sq M.predicted [Volume Rate/Area] in Serum, Plasma or Blood by Creatinine-based formula (CKD-EPI) 08/12/2023 09:19:53 >90 >=60 (mL/min) Final eGFR is calculated based on the CKD-EPI 2020 equation Sodium 08/12/2023 09:19:53 143 135-146 (m mol/L) Final Potassium 08/12/2023 09:19:53 3.6 3.5-5.1 (m mol/L) Final Cl 08/12/2023 09:19:53 104 98-107 (mm ol/L) Final CO2 08/12/2023 09:19:53 26 22-32 (mmo l/L) Final Anion gap 08/12/2023 09:19:53 13 7-15 (mmol /L) Final Glucose 08/12/2023 09:19:53 101 70-120 (mg /dL) Final Albumin 08/12/2023 09:19:53 3.8 3.8-5.0 (g /dL) Final AST (Aspartate aminotransferase) 08/12/2023 09:19:53 264 Above high normal 10-50 (U/L) Final Alk Phos 08/12/2023 09:19:53 69 35-130 (U/ L) Final Bilirubin, Total 08/12/2023 09:19:53 1.2 <=1 .2 (mg/dL) Final Calcium 08/12/2023 09:19:53 8.3 Below low normal 8.4 -10.2 (mg/dL) Final Protein 08/12/2023 09:19:53 7.7 6.0-8.3 (g /dL) Final ALT (Alanine aminotransferase) 08/12/2023 09:19:53 218 Above high normal 10-50 (U/L) Final Performing Location LAB[facility]ORY [facility] - [address] [facility] [address]
--- OUTSIDE RECORDS SUMMARY | 2023-08-24 07:00 | External Medical Summary | Summary of Care ---
Author Name Unknown Organization [facility] Address [address] [facility] [address] Phone [phone] Care Team Providers Care Door Machine Operator Name Role Phone Borrego, Michelle Mari KEITA Primary Care Provider [phone] Encounter Details Date Type Department Care Team (Late st Contact Info) Description 05/06/2023 Telephone Radiology [address] [place] [phone] Melvina Rivas, RVT Allergies Active Allergy Reactions Criticality Noted Date Comments Aspirin Other (Please comment) 02/12/2016 Reports having a bloody nose. documented as of this encounter (statuses as of 08/05/2023) Medications Medication Sig Dispensed Refills Start Date [...] 1 Tablet before bedtime. 0 04/20/2023 Active Citalopram Hydrobromide 10 MG Oral Tablet (CeleXA) Take 1 Tablet by mouth in the morning. 90 Tablet 3 12/24/2022 05/14/19 24 Discontinued(Med ication List Clean Up) MAGnesium-Oxide 400 (240 Mg) MG Oral Tablet Take 1 Tablet by mouth in the morning. In the morning.. 0 03/18/2023 05/14/19 24 Discontinued(Med ication List Clean Up) Thiamine Mononitrate 100 MG Oral Tablet (Vitamin B-1) Take 1 Tablet by mouth in the morning. In the morning.. 0 03/18/2023 05/14/19 24 Discontinued(Med ication List Clean Up) Furosemide 20 MG Oral Tablet (Lasix)Indication s:Alcoholic cirrhosis of liver with ascites (HCC) Take 1 Tablet by mouth in the morning. 90 Tablet 3 04/07/2023 06/09/19 24 Discontinued(Med ication List Clean Up) oxyCODONE HCl 5 MG Oral Tablet (Oxy IR) Take 1 Tablet by mouth every 6 hours as needed. 0 04/20/2023 05/14/19 24 Discontinued(Med ication List Clean Up) Pantoprazole Sodium 20 MG Oral Tablet Delayed Release (Protonix) Take 2 Tablets by mouth in the morning. 0 04/21/2023 07/03/19 24 Discontinued Zolpidem Tartrate 5 MG Oral Tablet (Ambien)Indicatio ns:History of alcohol abuse,Persistent insomnia Take 1 Tablet by mouth at bedtime as needed for Sleep. 30 Tablet 0 04/21/2023 06/09/19 24 Discontinued(Ref ill) documented as of this encounter (statuses as of 08/05/2023) Active Problems Problem Noted Date Diagnosed Date [...] as of this encounter (statuses as of 08/05/2023) Resolved Problems Problem Noted Date Diagnosed Date [...] as of this encounter (statuses as of 08/05/2023) Immunizations Name Administration Dates Next Due COVID-19 [...] 9:40 AM EDT Office Visit Family Medicine [address] [place] [phone] Dave Bertrand [address] [place] [address] 09/01/2023 8:15 AM EDT Imaging Radiology [address] [place] [address] 09/08/2023 3:00 PM EDT Office Visit Gastroenterology, [facility] [address] [place] [address] Anatoliy Meza CRNP [address] [place] [address] 02/03/2024 8:30 AM EST Office Visit Family Medicine [address] [place] [phone] [address] [place] [address] Scheduled Procedures Name Priority Associated Diagnoses Date/Ti [...] the patient have Health Care Power of Director Risk? No Code Status History Code Status Date [...] the patient have Health Care Power of Director Risk? No Full Code 02/10/2016 5:50 PM 02/20/2016 12:09 AM Th is order reflects the patients wishes and were consensually agreed upon. Question Answer Comments Discussion of Advance Directives occurred with: Patient Does the patient have a Living Will? No Does the patient have Health Care Power of Director Risk? No Full Code 01/15/2016 3:25 PM 01/18/2016 6:24 PM Thi s order reflects the patients wishes and were consensually agreed upon. Question Answer Comments Discussion of Advance Directives occurred with: Patient Does the patient have a Living Will? No Does the patient have Health Care Power of Director Risk? No Care Teams Door Machine Operator Relationship Specialty Start Date End Date Michelle Borrego DO [address] [place] [address] [place] [address] PCP - General Internal Medicine 06/07/16 documented as of this encounter
--- OUTSIDE RECORDS SUMMARY | 2023-08-24 07:00 | External Medical Summary | Summary of Care ---
Author Name Unknown Organization [facility] Address [address] [facility] [place] [address] Phone [phone] Care Team Providers Care Property Consultant Name Role Phone Michelle Borrego Mari KEITA Primary Care Provider [phone] Reason for Visit * Reason Onset Date Comments Hospital Follow-Up 08/07/2023 Jori for [facility] Encounter Details Date Type Department Care Team (Late st Contact Info) Description 08/07/2023 Telephone Ancillary [address] [place] [address] Erin Jolley, FELIPE Hospital Follow-Up (Jori for [facility]) Allergies Active Allergy Reactions Criticality Noted Date Comments Aspirin Other (Please comment) 02/12/2016 Reports having a bloody nose. documented as of this encounter (statuses as of 08/08/2023) Medications Medication Sig Dispensed Refills Start Date [...] as of this encounter (statuses as of 08/08/2023) Active Problems Problem Noted Date Diagnosed Date [...] as of this encounter (statuses as of 08/08/2023) Resolved Problems Problem Noted Date Diagnosed Date [...] as of this encounter (statuses as of 08/08/2023) Immunizations Name Administration Dates Next Due COVID-19 [...] visit for follow up: JORI Admitted to: [facility], Date: 08.01.23 Discharged to: home, Date: [...] visit for follow up: JORI Admitted to: [facility], Date: 08.01.23 Discharged to: home, Date: [...] frequent hospital visits. I will send a [employer] message to patient. Message sent to Nicolette to follow up if needed Erin Jolley RN documented in this encounter Plan of Treatment Upcoming Encounters Date Type Department Care Team (Late st Contact Info) Description 08/12/2023 9:40 AM EDT Office Visit Family Medicine [address] [phone] Dave Bertrand CRNP [address] [place] [address] [place] [address] 09/01/2023 8:15 AM EDT Imaging Radiology [address] [place] [address] 09/08/2023 3:00 PM EDT Office Visit Gastroenterology, [facility] [address] [place] [address] Anatoliy Meza CRNP [address] [place] [address] 02/03/2024 8:30 AM EST Office Visit Family Medicine [address] [place] [address] Michelle Borrego DO [address] [place] [address] [place] [address] Scheduled Procedures Name Priority Associated Diagnoses Date/Ti [...] the patient have Health Care Power of Bog Cutter? No Code Status History Code Status Date [...] the patient have Health Care Power of Bog Cutter? No Full Code 02/10/2016 5:50 PM 02/20/2016 12:09 AM Th is order reflects the patients wishes and were consensually agreed upon. Question Answer Comments Discussion of Advance Directives occurred with: Patient Does the patient have a Living Will? No Does the patient have Health Care Power of Bog Cutter? No Full Code 01/15/2016 3:25 PM 01/18/2016 6:24 PM Thi s order reflects the patients wishes and were consensually agreed upon. Question Answer Comments Discussion of Advance Directives occurred with: Patient Does the patient have a Living Will? No Does the patient have Health Care Power of Bog Cutter? No Care Teams Property Consultant Relationship Specialty Start Date End Date Michelle Borrego DO [address] [place] [address] [place] [address] PCP - General Internal Medicine 06/07/16 documented as of this encounter
--- OUTSIDE RECORDS SUMMARY | 2023-08-24 07:00 | External Medical Summary | Summary of Care ---
Author Name Unknown Organization [facility] Address [address] [facility] [address] Phone [phone] Care Team Providers Care Metals Analyst Name Role Phone BorregoVikashMichelle Mari KEITA Primary Care Provider [phone] Reason for Visit * Reason Onset Date Comments Hospital Follow-Up 07/28/2023 Jori for [facility] 2 attempts Encounter Details Date Type Department Care Team (Late st Contact Info) Description 07/28/2023 Telephone Ancillary [address] [place] [address] Erin Jolley, FELIPE Hospital Follow-Up (Jori for [facility] 2 attempts) Allergies Active Allergy Reactions Criticality Noted Date Comments Aspirin Other (Please comment) 02/12/2016 Reports having a bloody nose. documented as of this encounter (statuses as of 08/07/2023) Medications Medication Sig Dispensed Refills Start Date [...] as of this encounter (statuses as of 08/07/2023) Active Problems Problem Noted Date Diagnosed Date [...] as of this encounter (statuses as of 08/07/2023) Resolved Problems Problem Noted Date Diagnosed Date [...] as of this encounter (statuses as of 08/07/2023) Immunizations Name Administration Dates Next Due COVID-19 [...] visit for follow up: jori Admitted to: [facility], Date: 07.20.23 Discharged to: home, Date: 07.25.23 [...] 9:40 AM EDT Office Visit Family Medicine [address] [place] [phone] Dave Bertrand [address] [place] [address] 09/01/2023 8:15 AM EDT Imaging Radiology [address] [place] [address] 09/08/2023 3:00 PM EDT Office Visit Gastroenterology, [facility] [place] [address] Anatoliy Meza CRNP [address] [facility] [place] [address] 02/03/2024 8:30 AM EST Office Visit Family Medicine [address] [place] [phone] Michelle Borrego DO [address] [place] [address] [place] [address] Scheduled Procedures Name Priority Associated Diagnoses Date/Ti [...] the patient have Health Care Power of Integrated Specialist? No Code Status History Code Status Date [...] the patient have Health Care Power of Integrated Specialist? No Full Code 02/10/2016 5:50 PM 02/20/2016 12:09 AM Th is order reflects the patients wishes and were consensually agreed upon. Question Answer Comments Discussion of Advance Directives occurred with: Patient Does the patient have a Living Will? No Does the patient have Health Care Power of Integrated Specialist? No Full Code 01/15/2016 3:25 PM 01/18/2016 6:24 PM Thi s order reflects the patients wishes and were consensually agreed upon. Question Answer Comments Discussion of Advance Directives occurred with: Patient Does the patient have a Living Will? No Does the patient have Health Care Power of Integrated Specialist? No Care Teams Metals Analyst Relationship Specialty Start Date End Date Michelle Borrego DO [address] [place] [address] [place] [address] PCP - General Internal Medicine 06/07/16 documented as of this encounter
--- OUTSIDE RECORDS SUMMARY | 2023-08-24 07:00 | External Medical Summary ---
Author Name Unknown Address Unknown Organization K01[place] [place] [address] [place] [address] Laboratory Report Ordering Provider Test Date Status VIRGILIO JOSEPH 08/12/2023 09:19:53 Final Observation Date Value Abnormality Reference (Units ) Status MYCODE SPECIMEN-SST 08/12/2023 09:19:53 Freezing of extracted DNA, whole blood and/or serum. Final Performing Location [facility] [place] [address] [place] [address]
--- OUTSIDE RECORDS SUMMARY | 2023-08-24 07:00 | External Medical Summary | Summary of Care ---
Author Name Unknown Organization [facility] Address [address] [facility] [address] Phone [phone] Care Team Providers Care Pipe Stress Engineer Name Role Phone BorregoVikashMichelle Mari KEITA Primary Care Provider [phone] Reason for Visit * Reason Onset Date Comments Hospital Follow-Up 07/28/2023 Jori for [facility] 2 attempts Encounter Details Date Type Department Care Team (Late st Contact Info) Description 07/28/2023 Telephone Ancillary [address] [place] [address] Erin Jolley, FELIPE Hospital Follow-Up (Jori for [facility] 2 attempts) Allergies Active Allergy Reactions Criticality [...] Encounter - Erin Jolley RN - 08/11/2023 10:24 AM EDT Reason for Call: Hospital Follow-Up (Jori for [facility] 2 attempts) Contact: Yusra Sales Contact Type: Follow-up Provider In-Basket: No Outcome: see myG, patient has been hospitalized multiple times and we have been unsuccessful in reaching him. Face to face time spent with Patient (minutes): 0 Total Time including non face to face (minutes): 20 * Telephone Encounter - Erin Jolley RN - 07/28/2023 2:36 PM EDT Transitions of Care Note Reason for Referral:Recent Admission Phone visit for follow up: jori Admitted to: [facility], Date: 07.20.23 Discharged to: home, Date: 07.25.23 [...] not exception phone calls. Patient does use [employer] and sent message there too. Erin Jolley RN documented in this encounter Plan of Treatment Upcoming Encounters Date Type Department Care Team (Late st Contact Info) Description 08/12/2023 9:40 AM EDT Office Visit Family Medicine [address] [place] [phone] Dave Bertrand CRNP [address] [place] [address] [place] [address] 09/01/2023 8:15 AM EDT Imaging Radiology [address] [place] [address] 09/08/2023 3:00 PM EDT Office Visit Gastroenterology, [facility] [address] [place] [address] Anatoliy Meza CRNP [address] [place] [address] 02/03/2024 8:30 AM EST Office Visit Family Medicine [address] [place] [phone] Michelle Borreg[address] [place] [address] Scheduled Procedures Name Priority Associated Diagnoses Date/Ti [...] the patient have Health Care Power of Mine Captain? No Code Status History Code Status Date [...] the patient have Health Care Power of Mine Captain? No Full Code 02/10/2016 5:50 PM 02/20/2016 12:09 AM Th is order reflects the patients wishes and were consensually agreed upon. Question Answer Comments Discussion of Advance Directives occurred with: Patient Does the patient have a Living Will? No Does the patient have Health Care Power of Mine Captain? No Full Code 01/15/2016 3:25 PM 01/18/2016 6:24 PM Thi s order reflects the patients wishes and were consensually agreed upon. Question Answer Comments Discussion of Advance Directives occurred with: Patient Does the patient have a Living Will? No Does the patient have Health Care Power of Mine Captain? No Care Teams Pipe Stress Engineer Relationship Specialty Start Date End Date Michelle Borrego DO [address] [place] [address] [place] [address] PCP - General Internal Medicine 06/07/16 documented as of this encounter
--- OUTSIDE RECORDS SUMMARY | 2023-08-24 07:00 | External Medical Summary ---
Author Name Unknown Address Unknown Organization K01:[facility] [place] [address] [address] Laboratory Report Ordering Provider Test Date Status VIRGILIO JOSEPH 08/12/2023 09:19:53 Final Observation Date Value Abnormality Reference (Units ) Status MYCODE SPECIMEN-SST 08/12/2023 09:19:53 Freezing of extracted DNA, whole blood and/or serum. Final Performing Location [facility] [place] [address] [place] [address]
--- OUTSIDE RECORDS SUMMARY | 2023-08-24 07:00 | External Medical Summary | Summary of Care ---
Author Name Unknown Organization [facility] Address [address] [facility] [place] [address] Phone [phone] Care Team Providers Care Laboratory Assistant Name Role Phone BorregoVikashMichelle Mari KEITA Primary Care Provider [phone] Reason for Visit * Reason Onset Date Comments Hospital Follow-Up 07/28/2023 Jori for [facility] 2 attempts Encounter Details Date Type Department Care Team (Late st Contact Info) Description 07/28/2023 Telephone Ancillary [address] [place] [address] Erin Jolley, FELIPE Hospital Follow-Up (Jori for [facility] 2 attempts) Allergies Active Allergy Reactions Criticality [...] visit for follow up: jori Admitted to: [facility], Date: 07.20.23 Discharged to: home, Date: 07.25.23 [...] 9:40 AM EDT Office Visit Family Medicine [address] [place] [phone] Dave Bertrand [address] [place] [address] 09/01/2023 8:15 AM EDT Imaging Radiology [address] [place] [address] 09/08/2023 3:00 PM EDT Office Visit Gastroenterology, [facility] 132 [facility] [place] [address] Anatoliy Meza CRNP 132 [facility] [place] [address] 02/03/2024 8:30 AM EST Office Visit Family Medicine [address] [place] [phone] Michelle Borrego DO [address] [place] [address] [place] [address] Scheduled Procedures Name Priority Associated Diagnoses Date/Ti [...] the patient have Health Care Power of Graduate Student Instructor? No Code Status History Code Status [...] the patient have Health Care Power of Graduate Student Instructor? No Full Code 02/10/2016 5:50 PM 02/20/2016 12:09 AM Th is order reflects the patients wishes and were consensually agreed upon. Question Answer Comments Discussion of Advance Directives occurred with: Patient Does the patient have a Living Will? No Does the patient have Health Care Power of Graduate Student Instructor? No Full Code 01/15/2016 3:25 PM 01/18/2016 6:24 PM Thi s order reflects the patients wishes and were consensually agreed upon. Question Answer Comments Discussion of Advance Directives occurred with: Patient Does the patient have a Living Will? No Does the patient have Health Care Power of Graduate Student Instructor? No Care Teams Laboratory Assistant Relationship Specialty Start Date End Date Michelle Borrego DO [address] [place] [address] [place] [address] PCP - General Internal Medicine 06/07/16 documented as of this encounter
--- OUTSIDE RECORDS SUMMARY | 2023-08-24 07:00 | External Medical Summary | Summary of Care ---
Author Name Unknown Organization [facility] Address [address] [facility] [place] [address] Phone [phone] Care Team Providers Care Programming Internship Name Role Phone Michelle Borrego DO Primary Care Provider [phone] Reason for Visit * Reason Onset Date Comments Medication Refill 08/05/2023 Encounter Details Date Type Department Care Team (Late st Contact Info) Description 08/05/2023 Refill Family Medicine [address] [phone] Michelle Borrego DO [address] [place] [address] [place] [address] History of alcohol abuse; Persistent insomnia Allergies [...] MCG/0.3 mL, 12 YRS AND ABOVE, IM (PFIZER-Comirnat) 01/15/2023 COVID-19, mRNA, LNP-s, PF, B ooster, [...] encounter Miscellaneous Notes * Telephone Encounter - Ana Calderón [facility] - 08/07/2023 6:21 AM EDT Refused Prescriptions: Disp Refills Zolpidem Tartrate 5 MG Oral Tablet (Ambien)30 Tab*0 Sig: Take 1Tablet by mouth at bedtime as needed for Sleep.Refused By: ANA CALDERÓN for Refusal: Too soon documented in this encounter Plan of Treatment Upcoming Encounters Date Type Department Care Team (Late st Contact Info) Description 08/12/2023 9:40 AM EDT Office Visit Family Medicine [address] [place] [phone] Dave Bertrand CRNP [address] [place] [address] [place] [address] 09/01/2023 8:15 AM EDT Imaging Radiology [address] [place] [address] 09/08/2023 3:00 PM EDT Office Visit Gastroenterology, [facility] [place] [address] Anatoliy Meza CRNP [address] [place] [address] 02/03/2024 8:30 AM EST Office Visit [address] [place] [phone] Michelle Borrego DO [address] [place] [address] [place] [address] Scheduled Procedures Name Priority Associated Diagnoses Date/Ti [...] the patient have Health Care Power of Buckle Inspector? No Code Status History Code Status Date [...] the patient have Health Care Power of Buckle Inspector? No Full Code 02/10/2016 5:50 PM 02/20/2016 12:09 AM Th is order reflects the patients wishes and were consensually agreed upon. Question Answer Comments Discussion of Advance Directives occurred with: Patient Does the patient have a Living Will? No Does the patient have Health Care Power of Buckle Inspector? No Full Code 01/15/2016 3:25 PM 01/18/2016 6:24 PM Thi s order reflects the patients wishes and were consensually agreed upon. Question Answer Comments Discussion of Advance Directives occurred with: Patient Does the patient have a Living Will? No Does the patient have Health Care Power of Buckle Inspector? No Care Teams Programming Internship Relationship Specialty Start Date End Date Michelle Borrego DO [address] [place] [address] [place] [phone] PCP - General Internal Medicine 06/07/16 documented as of this encounter
--- OUTSIDE RECORDS SUMMARY | 2023-08-24 07:00 | External Medical Summary ---
Author Name Unknown Address Unknown Organization K01:[facility] [place] [address] [address] Laboratory Report Ordering Provider Test Date Status EMIL LEVIN 08/12/2023 09:19:53 Final Observation Date Value Abnormality Reference (Units ) Status Bilirubin, Direct 08/12/2023 09:19:53 0.6 Above high normal 0.0-0.3 (mg/dL) Final Performing Location LABORATORY C - [address] [address]
--- OUTSIDE RECORDS SUMMARY | 2023-08-24 07:00 | External Medical Summary ---
Author Name Unknown Address Unknown Organization K01:[facility] [place] [facility] [address] [facility] [place] [address] Laboratory Report Ordering Provider Test Date Status PAGE CAMPUZANO 08/12/2023 09:19:53 Final Observation Date Value Abnormality Reference (Units ) Status SYNC LEUKOCYTES IN BLOOD BY AUTOMATED COUNT 08/12/2023 09:19:53 5.58 4.00-10.80 (K/uL) Final Segs 08/12/2023 09:19:53 43.1 40.0-75.0 (%) Final Lymphs % 08/12/2023 09:19:53 33.9 18.0-42.0 (%) Final Monos 08/12/2023 09:19:53 13.3 Above high normal 1.0-11.0 (%) Final Eosinophils 08/12/2023 09:19:53 7.5 Above high normal 0.0-6.0 (%) Final Basos 08/12/2023 09:19:53 2.0 0.0-2.0 (%) Final Immature Granulocyte, Percent 08/12/2023 09:19:53 0.2 0.0-2.0 (%) Final Absolute Segs 08/12/2023 09:19:53 2.41 1.80-7.70 (K/uL) Final Lymphs, absolute 08/12/2023 09:19:53 1.89 1.00-4.80 (K/ul) Final Monos, Abs 08/12/2023 09:19:53 0.74 0.00-1.10 (K/uL) Final Eos, Abs 08/12/2023 09:19:53 0.42 0.00-0.70 (K/uL) Final Basos, Abs 08/12/2023 09:19:53 0.11 0.00-0.20 (K/uL) Final Immature Granulocytes, Number 08/12/2023 09:19:53 0.01 0.00-0.20 (K/uL) Final Performing Location [facility] [place] - [address] [facility] [address]
[2023-08-24] MEDS: diazePAM 5 MG/ML 10ML VIAL ONE (07:33)
[2023-08-24 07:37] LABS: Basophils # (auto) 0.03 K/uL (0.00-0.20); Eosinophils # (auto) 0.03 K/uL (0.00-0.50); Hemoglobin 15.1 g/dl (14.0-18.0); Immature Granulocytes # (auto) 0.01 K/uL (0.01-0.20); Immature Granulocytes % (auto) 0.3 %; Lymphocytes % (auto) 19.8 %; Mean Corpuscular Hemoglobin 32.8 pg (25.0-34.0); Mean Corpuscular Hgb Conc 35.1 g/dL (32.0-36.0); Mean Corpuscular Volume 93.3 fL (80.0-100.0); Monocytes # (auto) 0.46 K/uL (0.11-0.59); Monocytes % (auto) 15.2 %; Neutrophils % (auto) 62.7 %; Platelet Count 78 K/uL (130-400); RDW Coefficient of Variation 13.1 % (11.5-14.5); RDW Standard Deviation 44.5 fL (36.4-46.3); Red Blood Count 4.61 M/uL (4.70-6.10); White Blood Count 3.03 K/ul (4.8-10.8)
[2023-08-24] MEDS: diazePAM 5 MG/ML 10ML VIAL IV STA (07:46)
[2023-08-24 07:49] LABS: Alanine Aminotransferase 83 U/L (7-52); Albumin Level 3.9 gm/dl (3.4-5.0); Alkaline Phosphatase 71 U/L (34-104); Anion Gap 18 (3-11); Aspartate Aminotransferase 123 U/L (13-39); BUN Creatinine Ratio 8.2 (10-20); Bilirubin,Total 2.7 mg/dl (0.2-1.0); Blood Urea Nitrogen 7 mg/dl (6-23); Calcium 8.1 mg/dl (8.6-10.3); Carbon Dioxide 21 mmol/L (21-32); Chloride 101 mmol/L (98-107); Est GFR (African American) 118.6 ml/min; Est GFR (Non-African American) 102.3 ml/min; Glucose 154 mg/dl (70-99(Fasting)); Lipase 55 U/L (11-82); Potassium 2.9 mmol/L (3.5-5.1); Sodium 140 mmol/L (136-145); Total Protein 8.2 gm/dl (6.0-8.3)
[2023-08-24 07:54] LABS: Troponin I High Sensitivity 5.2 pg/ml (0-20)
[2023-08-24] MEDS: SODIUM CHLORIDE 0.9% 1,000 ML IV ONE ×2 (08:03→08:44)
--- NOTE | 2023-08-24 08:05 | XRay Report ---
XR chest 1V portable CLINICAL HISTORY: sOB TECHNIQUE: Single frontal radiograph of the chest was obtained. Comparison: Comparison is made to chest radiograph 07/20/2023 FINDINGS: No lines and tubes are seen. The cardiomediastinal silhouette is normal. The lungs are clear. No evid ence of pleural effusion or pneumothorax. IMPRESSION: No acute chest disease. ACT 112: Negative or not required by law. Electronically signed by: Darrel Haney M.D. 08/24/2023 8:04 AM
[2023-08-24] MEDS: POTASSIUM CHLORIDE CRTAB 20 MEQ TABCR PO STA ×2 (08:18→17:36)
[2023-08-24] MEDS: MAGNESIUM SULFATE / D5W 1 GM/100 ML BAG IV SCH ×2 (08:19→11:00)
[2023-08-24] MEDS: ONDANSETRON INJ 2 MG/ML 2 ML VIAL IV STA (08:19)
--- NOTE | 2023-08-24 08:30 | Emergency Department Note ---
Impression & Plan Alcohol withdrawal, Hypomagnesemia, Prolonged QT interval ED Provider Note NAME: ANDREA ADAME AGE: 47 SEX: M : 1975 ARRIVES VIA: Walk-In INFORMANT: Patient, ED PROVIDER(S): Melissa Martinez MD CHIEF COMPLAINT: Inability to walk HPI: This a 47-year-old male with history of alcohol use disorder, presenting for inability to walk. Patient states that he last drank yesterday about 12 drinks in about 4 PM. He went to [facility] who set him up with intensive outpatient therapy for alcohol use disorder. He notes that since stopping alcohol he has become tremulous. He was at triage and was reportedly diaphoretic. He reports some slight nausea currently. He states he has ability to walk he does he feels very shaky and off balance. No fevers or chills. No back pain. ROS: See above HPI for pertinent positives & negatives. A total of 10 systems reviewed and were otherwise negative. PHYSICAL EXAMINATION: General: resting comfortably in no acute distress Head: Normocephalic and atraumatic Eyes: Normal inspection, extraocular muscles intact Ear, nose, throat: Normal external exam Neck: Normal range of motion Respiratory: lungs clear to auscultation bilaterally Cardiovascular: Regular rate/rhythm, no murmur GI: soft, nontender, no guarding or rebound Extremities: nontender, moves all extremities Neuro: The patient awake and alert, appropriately conversive, no focal deficits, symmetric faces Skin: Warm, dry, and intact MEDICAL DECISION MAKING: This is a 47-year-old male with history of alcohol use or presenting for inability to walk. Patient was ambulated by myself and nursing who was at the patient have strength enough to walk but he was fairly unstable, tremulous. This time consider multiple etiology including electrolyte disturbance, alcohol use disorder, withdrawal, failure to thrive, low concern for stroke or intraspinal abscess/hematoma. -Pancytopenia is noted. Otherwise low potassium at 2.9. Critically low magnesium at 0.8. Transaminases noted similar to previous. -ECG independently interpreted by me with normal sinus rhythm, rate of 98, normal axis, normal [place], normal QRS, QTc is 571, no ST segment elevations consistent with STEMI criteria -Patient appears to be in alcohol withdrawal. Given Valium with improvement in his symptoms. He has critically low magnesium and significant elevated QTc. Will admit for further workup of his alcohol withdrawal, magnesium and QTc. -Spoke w/ RAPHAEL batista for hospitalist service for admission for Differential diagnosis: Alcohol withdrawal, intraspinal abscess/hematoma, failure to thrive ER treatment provided: See below Diagnostics interpreted by me: ECG: See above Cardiac Monitoring: An order was placed for continuous cardiac monitoring. The monitor shows a rate of 92 with sinus rhythm. Laboratory studies: As stated above and show below. Imaging studies: See below. Past Med/Surg History Problem List (Updated 08/25/23 @ 15:59 by Melissa Martinez MD) Prolonged QT interval (Acute) Alcoholic cirrhosis Acute hypokalemia (Acute) Nausea & vomiting (Acute) Thrombocytopenia (Acute) Transaminitis (Acute) Hypomagnesemia (Acute) Alcohol withdrawal (Acute) Alcoholic hepatitis (Acute) Alcohol withdrawal (Acute) Esophageal varices Transaminitis (Acute) Medical History Cholecystitis Choledocholithiasis Depression Anxiety UGIB (upper gastrointestinal bleed) Thrombocytopenia Ascites Alcohol abuse Alcoholic cirrhosis of liver Esophageal varices Portal hypertension History of macrocytic anemia History of alcohol abuse Surgical History History of esophagogastroduodenoscopy (EGD) Including procedures for esophageal varices banding History of tonsillectomy Family History Mother Diabetes Father Prostate cancer Other No family history of adverse response to anesthesia Social History Smoking Status: Never smoker Tobacco Type: Smokeless Tobacco (Dip or Chew) Second Hand Exposure: No; Do You Dip or Chew Tobacco: Yes; Hx Alcohol Use: Yes Alcohol type: hard liquor Hx Substance Use: No Preferred Language: Indian Communication Ability: Effective Newspaper Or Periodical Editor Required: No Beliefs That Will Affect Care: None Current Living Situation: Alone Current Living Situation Comment: lives with parents Other Information That Helps Us Care for You: No Feels Safe at Home: Yes Safety Concerns: Feels Safe At This Time Assistive Devices: None Allergies Allergies Allergy/AdvReac Type Severity Reaction Status Date / Time aspirin AdvReac Unknown THINS Verified 08/01/23 20:13 BLOOD, NOSE BLEEDS Home Meds Home Medications Medication Instructions Recorded Confirmed buspirone 5 mg tablet 5 mg PO AMHS 06/10/18 08/24/23 nadolol 20 mg tablet 20 mg PO QPM 06/10/18 08/24/23 potassium chloride 10 mEq 10 meq PO QAM 06/10/18 08/24/23 tablet,extended release ursodiol 300 mg capsule 300 mg PO BID 06/10/18 08/24/23 zolpidem 5 mg tablet (Ambien) 5 mg PO HS PRN Sleep 06/10/18 08/24/23 furosemide 20 mg tablet 20 mg PO QAM 11/14/22 08/24/23 spironolactone 25 mg tablet 25 mg PO QAM 11/14/22 08/24/23 citalopram 10 mg tablet 10 mg PO QAM 04/09/23 08/24/23 cyanocobalamin (vitamin B-12) 250 250 mcg PO QAM 07/03/23 08/24/23 mcg tablet (Vitamin B-12) gabapentin 300 mg capsule 300 mg PO TID 07/03/23 08/24/23 pantoprazole 40 mg tablet,delayed 40 mg PO QAM 08/01/23 08/24/23 release Previous Rx's Medication Instructions Recorded folic acid 1 mg tablet 1 mg PO QAM #30 tabs 06/06/23 thiamine HCl (vitamin B1) 100 mg 100 mg PO QAM #30 tabs 06/06/23 tablet Results & Data (ED) Vital Signs Vital Signs - 24 hr 08/24/23 07:01 08/24/23 07:22 08/24/23 08:23 Temperature 36.8 C Temperature Source Temporal Artery Scan Pulse Rate 106 H 67 Pulse Rate [Apical] 88 Respiratory Rate 19 18 Respiratory Effort / Characteristics Non-Labored Spontaneous Non-Labored Respiratory Depth Normal Normal Respiratory Pattern Regular Blood Pressure 148/92 H Blood Pressure [Right Arm] 160/108 H Blood Pressure Mean 110 Blood Pressure Mean [Right Arm] 125 Pulse Oximetry 96 98 Oxygen Delivery Method Room Air Room Air Sepsis Recent Fever Within 48 Hours No Sepsis New/Unexplained Change in Mental Status No Sepsis Action Taken by Nursing No Action Required 08/24/23 08:52 Temperature Temperature Source Pulse Rate Pulse Rate [Apical] 80 Respiratory Rate 18 Respiratory Effort / Characteristics Respiratory Depth Respiratory Pattern Blood Pressure Blood Pressure [Right Arm] 123/86 Blood Pressure Mean Blood Pressure Mean [Right Arm] 98 Pulse Oximetry 98 Oxygen Delivery Method Sepsis Recent Fever Within 48 Hours Sepsis New/Unexplained Change in Mental Status Sepsis Action Taken by Nursing Laboratory Data 08/25/23 05:34 08/25/23 05:34 Lab Results 08/24/23 08/24/23 08/24/23 Range/Units 07:16 07:32 09:26 WBC 3.03 L (4.8-10.8) K/ul RBC 4.61 L (4.70-6.10) M/uL Hgb 15.1 (14.0-18.0) g/dl Hct 43.0 (42.0-52.0) % MCV 93.3 (80.0-100.0) fL MCH 32.8 (25.0-34.0) pg MCHC 35.1 (32.0-36.0) g/dL RDW Std Deviation 44.5 (36.4-46.3) fL RDW Coeff of Hang 13.1 (11.5-14.5) % Plt Count 78 L (130-400) K/uL MPV 11.0 (9.4-12.4) fL Immature Gran % (Auto) 0.3 % Neut % (Auto) 62.7 % Lymph % (Auto) 19.8 % Rains % (Auto) 15.2 % Eos % (Auto) 1.0 % Baso % (Auto) 1.0 % Neut # (Auto) 1.90 (1.40-6.50) K/uL Lymph # (Auto) 0.60 L (1.20-3.40) K/uL Rains # (Auto) 0.46 (0.11-0.59) K/uL Eos # (Auto) 0.03 (0.00-0.50) K/uL Baso # (Auto) 0.03 (0.00-0.20) K/uL Immature Gran # (Auto) 0.01 (0.01-0.20) K/uL Sodium 140 (136-145) mmol/L Potassium 2.9 L (3.5-5.1) mmol/L Chloride 101 (98-107) mmol/L Carbon Dioxide 21 (21-32) mmol/L Anion Gap 18 H (3-11) BUN 7 (6-23) mg/dl Creatinine 0.85 (0.6-1.4) mg/dl Est Cr Clr Drug Dosing Not Reportable Est GFR ( Amer) 118.6 ml/min Est GFR (Non-Af Amer) 102.3 ml/min BUN/Creatinine Ratio 8.2 L (10-20) Glucose 154 H (70-99(Fasting)) mg/dl Lactate 4.2 H* 1.4 (0.4-2.0) mmol/L Calcium 8.1 L (8.6-10.3) mg/dl Phosphorus 2.2 L (2.5-4.9) mg/dl Magnesium 0.8 L* (1.7-2.4) mg/dl Total Bilirubin 2.7 H (0.2-1.0) mg/dl Direct Bilirubin 1.0 H (0-0.2) mg/dl AST 123 H (13-39) U/L ALT 83 H (7-52) U/L Alkaline Phosphatase 71 (34-104) U/L Ammonia 54.0 (18-72) umol/L Troponin I High Sens 5.2 (0-20) pg/ml Total Protein 8.2 (6.0-8.3) gm/dl Albumin 3.9 (3.4-5.0) gm/dl Lipase 55 (11-82) U/L Ethyl Alcohol mg/dL < 10.0 (<10.0) mg/dl Administered Medications Al Hydrox/Mg Hydrox/Simethicone (Aluminum/Magnesium Susp 30 Ml Udc) 15 ml PO Q6H PRN PRN Reason: Nausea Stop: 09/23/23 10:49 Last Admin: 08/25/23 07:36 Dose: 15 ml Documented By: [facility] Buspirone HCl (Buspirone 5 Mg Tab) 10 mg PO TID [facility] Stop: 09/24/23 13:59 Last Admin: 08/25/23 13:29 Dose: 10 mg Documented By: [facility] Calcium Carbonate (Calcium Carbonate 500 Mg Chewable Tab) 1,500 mg PO TID [facility] Stop: 09/24/23 13:59 Last Admin: 08/25/23 14:43 Dose: 1,500 mg Documented By: [facility] Chlordiazepoxide HCl (Chlordiazepoxide Hcl 25 Mg Cap) 25 mg PO Q8H [facility] Stop: 08/26/23 05:01 Last Admin: 08/24/23 11:00 Dose: 25 mg Documented By: GAMALIEL Citalopram Hydrobromide (Citalopram 20 Mg Tab) [facility] [place] Stop: 09/23/23 12:41 Last Admin: 08/25/23 07:38 Dose: 10 mg Documented By: [facility] Admin: 08/24/23 14:14 Dose: 10 mg Documented By: [facility] Cyanocobalamin (Cyanocobalamin (B-12) 500 Mcg Tablet) [facility] [place] Stop: 09/24/23 08:59 Last Admin: 08/25/23 07:38 Dose: 250 mcg Documented By: [facility] Folic Acid (Folic Acid 1 Mg Tab) [facility] [place] Stop: 09/24/23 08:59 Last Admin: 08/25/23 07:37 Dose: 1 mg Documented By: [facility] Furosemide (Furosemide 20 Mg Tab) [facility] [place] Stop: 09/24/23 08:59 Last Admin: 08/25/23 07:38 Dose: 20 mg Documented By: [facility] Lorazepam 1 mg/ Syringe 1 mls @ 2 mls/min IV UD PRN; Protocol PRN Reason: EtOH Withdrawal AWSS Score 6,7 Stop: 09/23/23 13:12 Last Admin: 08/25/23 13:29 Dose: 2 mls/min Documented By: [facility] Lorazepam 2 mg/ Syringe 2 mls @ 2 mls/min IV UD PRN; Protocol PRN Reason: EtOH Withdrawal AWSS Score 8,9 Stop: 09/23/23 13:12 Last Admin: 08/25/23 08:19 Dose: 2 mls/min Documented By: [facility] Admin: 08/25/23 01:35 Dose: 2 mls/min Documented By: Admin: 08/24/23 20:19 Dose: 2 mls/min Documented By: Admin: 08/24/23 15:57 Dose: 2 mls/min Documented By: Admin: 08/24/23 14:15 Dose: 2 mls/min Documented By: [facility] Nadolol (Nadolol 40 Mg Tab) 20 mg PO QPM [facility] Stop: 09/23/23 20:59 Last Admin: 08/24/23 20:00 Dose: 20 mg Documented By: Pantoprazole Sodium (Pantoprazole 40 Mg Tab) 40 mg PO QAM [facility] Stop: 09/23/23 12:59 Last Admin: 08/25/23 07:38 Dose: 40 mg Documented By: [facility] Admin: 08/24/23 14:14 Dose: 40 mg Documented By: [facility] Potassium Chloride (Potassium Chloride Crtab 20 Meq Tabcr) 40 meq PO QAM [facility] Stop: 09/24/23 08:59 Last Admin: 08/25/23 07:37 Dose: 40 meq Documented By: [facility] Spironolactone (Spironolactone 25 Mg Tab) [facility] [place] Stop: 09/24/23 08:59 Last Admin: 08/25/23 07:38 Dose: 25 mg Documented By: [facility] Thiamine HCl (Thiamine Hcl 100 Mg Tab) 100 mg PO QAM [facility] Stop: 09/24/23 08:59 Last Admin: 08/25/23 07:39 Dose: 100 mg Documented By: [facility] Ursodiol (Ursodiol 300 Mg Cap) 300 mg PO BID [facility] Stop: 09/23/23 20:59 Last Admin: 08/25/23 07:37 Dose: 300 mg Documented By: [facility] Admin: 08/24/23 20:00 Dose: 300 mg Documented By: Zolpidem Tartrate (Zolpidem Tartrate 5 Mg Tab) 5 mg PO HS PRN PRN Reason: Sleep Stop: 09/23/23 12:41 Last Admin: 08/24/23 22:34 Dose: 5 mg Documented By: [facility] Discontinued Medications Buspirone HCl (Buspirone 5 Mg Tab) 5 mg PO BID [facility] Stop: 09/23/23 20:59 Last Admin: 08/25/23 07:37 Dose: 5 mg Documented By: [facility] Admin: 08/24/23 20:00 Dose: 5 mg Documented By: Chlordiazepoxide HCl (Chlordiazepoxide Hcl 25 Mg Cap) 25 mg PO Q6H [facility] Stop: 08/25/23 05:01 Last Admin: 08/25/23 04:37 Dose: 25 mg Documented By: Admin: 08/24/23 22:34 Dose: 25 mg Documented By: Admin: 08/24/23 17:36 Dose: 25 mg Documented By: Admin: 08/24/23 11:00 Dose: 25 mg Documented By: GAMALIEL Diazepam (Diazepam 5 Mg/Ml 10ml Vial) Confirm Administered Dose 50 mg .ROUTE .STK-MED ONE Stop: 08/24/23 07:32 Last Admin: 08/24/23 07:46 Dose: Not Given Documented By: GAMALIEL Diazepam (Diazepam 5 Mg/Ml 10ml Vial) 10 mg IV NOW STA Stop: 08/24/23 07:46 Last Admin: 08/24/23 07:46 Dose: 10 mg Documented By: GAMALIEL Gabapentin (Gabapentin 600 Mg Tab) 1,200 mg PO NOW ONE Stop: 08/24/23 10:31 Last Admin: 08/24/23 11:00 Dose: 1,200 mg Documented By: GAMALIEL Multivitamins 10 ml/ Thiamine HCl 100 mg/ Folic Acid 1 mg/Sodium Chloride 1,011.2 mls @ 500 mls/hr IV .Q2H2M ONE Stop: 08/24/23 09:49 Last Infusion: 08/24/23 10:37 Dose: Infused Documented By: Admin: 08/24/23 08:44 Dose: 500 mls/hr Documented By: GAMALIEL Sodium Chloride (Nss) 1,000 mls @ 999 mls/hr IV .Q1H1M ONE Stop: 08/24/23 08:48 Last Infusion: 08/24/23 09:14 Dose: Infused Documented By: Admin: 08/24/23 08:03 Dose: 999 mls/hr Documented By: YOLANDE Magnesium Sulfate/Dextrose (Magnesium Sulfate / D5w) 1 gm in 100 mls @ 200 mls/hr IV Q30M [facility] Stop: 08/24/23 09:11 Last Infusion: 08/24/23 09:14 Dose: Infused Documented By: Admin: 08/24/23 08:44 Dose: 200 mls/hr Documented By: Infusion: 08/24/23 08:44 Dose: Infused Documented By: Admin: 08/24/23 08:19 Dose: 200 mls/hr Documented By: GAMALIEL Sodium Chloride (Nss) 1,000 mls @ 999 mls/hr IV .Q1H1M ONE Stop: 08/24/23 09:35 Last Infusion: 08/24/23 10:03 Dose: Infused Documented By: Admin: 08/24/23 08:44 Dose: 999 mls/hr Documented By: KT Magnesium Sulfate/Dextrose (Magnesium Sulfate / D5w) 1 gm in 100 mls @ 50 mls/hr IV Q2H [facility] Stop: 08/24/23 18:29 Last Infusion: 08/24/23 22:37 Dose: Infused Documented By: Admin: 08/24/23 19:56 Dose: 50 mls/hr Documented By: Infusion: 08/24/23 19:36 Dose: Infused Documented By: Admin: 08/24/23 17:36 Dose: 50 mls/hr Documented By: Infusion: 08/24/23 16:29 Dose: Infused Documented By: [facility] Admin: 08/24/23 14:14 Dose: 50 mls/hr Documented By: Infusion: 08/24/23 13:04 Dose: Infused Documented By: [facility] Admin: 08/24/23 11:00 Dose: 50 mls/hr Documented By: GAMALIEL Potassium Phosphate 24 mmol/ (Sodium Chloride) 508 mls @ 127 mls/hr IV ONE ONE Stop: 08/24/23 14:44 Last Infusion: 08/24/23 16:45 Dose: Infused Documented By: [facility] Admin: 08/24/23 12:11 Dose: 127 mls/hr Documented By: [facility] Potassium Phosphate 24 mmol/ (Sodium Chloride) 508 mls @ 125 mls/hr IV ONE ONE Stop: 08/25/23 11:03 Last Infusion: 08/25/23 12:26 Dose: Infused Documented By: [facility] Admin: 08/25/23 07:37 Dose: 125 mls/hr Documented By: KEELEY Lorazepam (Lorazepam 1 Mg/1 Ml Syr Ed Inj Use) 2 mg IV ONE ONE Stop: 08/24/23 11:01 Last Admin: 08/24/23 10:59 Dose: 2 mg Documented By: GAMALIEL Ondansetron HCl (Ondansetron Inj 2 Mg/Ml 2 Ml Vial) 4 mg IV NOW STA Stop: 08/24/23 08:04 Last Admin: 08/24/23 08:19 Dose: 4 mg Documented By: GAMALIEL Potassium Chloride (Potassium Chloride Crtab 20 Meq Tabcr) 40 meq PO NOW STA Stop: 08/24/23 08:12 Last Admin: 08/24/23 08:18 Dose: 40 meq Documented By: GAMALIEL Potassium Chloride (Potassium Chloride Crtab 20 Meq Tabcr) 40 meq PO NOW STA Stop: 08/24/23 17:19 Last Admin: 08/24/23 17:36 Dose: 40 meq Documented By: [facility] Imaging Data Radiologist's Impression: Chest X-Ray 08/24/23 07:13 XR chest 1V portable CLINICAL HISTORY: sOB TECHNIQUE: Single frontal radiograph of the chest was obtained. Comparison: Comparison is made to chest radiograph 07/20/2023 FINDINGS: No lines and tubes are seen. The cardiomediastinal silhouette is normal. The lungs are clear. No evidence of pleural effusion or pneumothorax. IMPRESSION: No acute chest disease. ACT 112: Negative or not required by law. Electronically signed by: Andrea Haney M.D. 08/24/2023 8:04 AM Discharge Plan Visit Data Chief Complaint: Alcohol Withdrawal Stated Complaint: LEGS NUMB ED Provider: Melissa Martinez Discharge Problem: Alcohol withdrawal, Hypomagnesemia, Prolonged QT interval Patient Disposition: Admitted As Inpatient Discharge Instructions Interventions: ED Discharge Assessment Last Done: 08/24/23 12:48
[2023-08-24] MEDS: MULTI-VITAMIN INFUSION 10 ML, THIAMINE HCL 100 MG, FOLIC ACID 1 MG in SODIUM CHLORIDE 0... IV ONE (08:44)
[2023-08-24 08:56] LABS: Magnesium 0.8 mg/dl (1.7-2.4)
--- NOTE | 2023-08-24 10:04 | History & Physical Report ---
Date of Service August 24, 2023 Assessment & Plan (1) Alcohol withdrawal: Plan: This is a 47 y/o male with ongoing alcohol abuse, EtOH cirrhosis, known esophageal varices, hx EtOH withdrawal seizures (7 years ago), mood disorder, and other history as outlined who presents to the ED today with difficulty walking and tremulousness. Pt was recently admitted for similar symptoms but reports that he relapsed about two weeks ago and has been drinking again - yesterday had 12 drinks with last one around 4 pm. However, tremulousness started while he was still drinking. Work-up in the ED showed multiple electrolyte abnormalities so pt was referred for admission. - Admit to PCU - IV mag repletion started in the ED, will order additional IV mag and recheck this afternoon - Check phos - if low, consider potassium phosphate for repletion - repeat BMP this afternoon - Continue daily thiamine and folic acid - Librium protocol for active withdrawal - Diet as tolerated - Limit anti-emetics for now due to prolonged QTc, multiple electrolyte abnormalities likely contributing to this (2) Acute hypokalemia: Plan: Repletion as outlined above - pt has not been taking supplement as ordered for the last few days (3) Hypomagnesemia: Plan: Repletion as above (4) Nausea & vomiting: Plan: Diet as tolerated Resume PPI, which pt hasn't taken for the last few days Caution with antiemetics in view of prolonged QTc - will give lorazepam x 1 dose now for symptomatic relief (5) Alcoholic cirrhosis: Plan: Known esophageal varices - continue nadolol History of ascites - continue furosemide/spironolactone Monitor thrombocytopenia although appears around baseline - no current evidence of active bleeding MELD labs in AM Plan Discussed possibility of inpatient rehab with patient in view of his multiple recent admissions for similar symptoms related to alcohol withdrawal but pt declines - will need intensive outpatient, which pt was already working on starting. Pt seen and reviewed with collaborating physician, Dr. Villasenor. Plan of care discussed and as outlined above. Code Status: Full code DVT Prophylaxis: SCDs for now (Hx UGI bleed) Dispo: PCU Mariposa Horn PA-C History of Present Illness Chief Complaint: trouble walking, shaky Primary Care Provider: Michelle Borrego, This is a 47 y/o male with ongoing alcohol abuse, EtOH cirrhosis, known esophageal varices, hx EtOH withdrawal seizures (7 years ago), mood disorder, and other history as outlined who presents to the ED today with difficulty walking and tremulousness. Pt has been admitted to this facility multiple times over the last several months with most recent admission 07/31-08/06/23 for alcohol withdrawal and request for detox. He did follow-up with his PCP for possible initiation of naltrexone but they declined to start this with his multiple medical conditions. Initially, he felt like he was doing okay but then relapsed about two weeks ago although he doesn't recall a specific trigger. He has been attending outpatient rehab appointments. Yesterday, he had 12 drinks with his last drink around 4 pm. He was recently seen at [facility] and more intensive outpatient EtOH rehab was arranged but he has not started this yet. However, he has become more tremulous, even when he was drinking, and had difficulty walking today so he came to the ED for evaluation. Work-up in the ED showed multiple electrolyte abnormalities so he was referred for admission. He reports that he is overall "just feeling crappy" with associated nausea, dry heaves, sweats. He also notes that his face feels numb. He denies chest pain, shortness of breath, seizures, syncope. Last BM was today - no melena or hematochezia. Denies dysuria or hematuria. No peripheral edema. 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 Allergies Allergy/AdvReac Type Severity Reaction Status Date / Time aspirin AdvReac Unknown THINS Verified 08/01/23 20:13 BLOOD, NOSE BLEEDS Home Medications Medication Instructions Recorded Confirmed Type buspirone 5 mg tablet 5 mg PO AMHS 06/10/18 08/24/23 History nadolol 20 mg tablet 20 mg PO QPM 06/10/18 08/24/23 History potassium chloride 10 mEq 10 meq PO QAM 06/10/18 08/24/23 History tablet,extended release ursodiol 300 mg capsule 300 mg PO BID 06/10/18 08/24/23 History zolpidem 5 mg tablet (Ambien) 5 mg PO HS PRN Sleep 06/10/18 08/24/23 History furosemide 20 mg tablet 20 mg PO QAM 11/14/22 08/24/23 History spironolactone 25 mg tablet 25 mg PO QAM 11/14/22 08/24/23 History citalopram 10 mg tablet 10 mg PO QAM 04/09/23 08/24/23 History folic acid 1 mg tablet 1 mg PO QAM #30 tabs 06/06/23 08/24/23 Rx thiamine HCl (vitamin B1) 100 mg 100 mg PO QAM #30 tabs 06/06/23 08/24/23 Rx tablet cyanocobalamin (vitamin B-12) 250 250 mcg PO QAM 07/03/23 08/24/23 History mcg tablet (Vitamin B-12) gabapentin 300 mg capsule 300 mg PO TID 07/03/23 08/24/23 History pantoprazole 40 mg tablet,delayed 40 mg PO QAM 08/01/23 08/24/23 History release Past Med/Surg History Problem List (Updated 08/24/23 @ 13:57 by Bruna Horn PA-C) Alcoholic cirrhosis Acute hypokalemia (Acute) Nausea & vomiting (Acute) Thrombocytopenia (Acute) Transaminitis (Acute) Hypomagnesemia (Acute) Alcohol withdrawal (Acute) Alcoholic hepatitis (Acute) Alcohol withdrawal (Acute) Esophageal varices Transaminitis (Acute) Medical History Cholecystitis Choledocholithiasis Depression Anxiety UGIB (upper gastrointestinal bleed) Thrombocytopenia Ascites Alcohol abuse Alcoholic cirrhosis of liver Esophageal varices Portal hypertension History of macrocytic anemia History of alcohol abuse Surgical History History of esophagogastroduodenoscopy (EGD) Including procedures for esophageal varices banding History of tonsillectomy Family History Mother Diabetes Father Prostate cancer Other No family history of adverse response to anesthesia Social History Smoking Status: Never smoker Tobacco Type: Smokeless Tobacco (Dip or Chew) Second Hand Exposure: No; Do You Dip or Chew Tobacco: Yes; Hx Alcohol Use: Yes Alcohol type: hard liquor Hx Substance Use: No Preferred Language: Sinhala Communication Ability: Effective Fireproof Door Maker Required: No Beliefs That Will Affect Care: None Current Living Situation: Alone Current Living Situation Comment: lives with parents Feels Safe at Home: Yes Assistive Devices: None Review of Systems Review of Systems: All systems reviewed & are unremarkable except as noted in HPI & below Constitutional: + sweats and + fatigue Ear, Nose, Mouth, Throat: no nasal congestion and no sore throat Respiratory: + cough; no dyspnea and no wheezing Cardiovascular: no chest pain, no palpitations, no syncope and no edema Gastrointestinal: + nausea and + vomiting; no diarrhea/loo se stools and no blood in stools Genitourinary: no dysuria or no hematuria Integumentary: no rash Neurologic: + unsteadiness, + generalized weakness a nd + tremor(s); no seizure-like activity Physical Exam Physical Exam: For details of the physical exam, please see the physician addendum. Results & Data Results & Data Vital Signs (Past 12 Hours) Vital Signs Temp Pulse Pulse Resp BP BP Pulse Ox 08/24/23 08:52 80 18 123/86 98 08/24/23 08:23 67 08/24/23 07:22 88 18 160/108 H 98 08/24/23 07:01 36.8 C 106 H 19 148/92 H 96 O2 Del Method 08/24/23 08:52 08/24/23 08:23 08/24/23 07:22 Room Air 08/24/23 07:01 Room Air Laboratory Results Laboratory Results - last 24 hr 08/24/23 08/24/23 08/24/23 07:16 07:32 09:26 WBC 3.03 L RBC 4.61 L Hgb 15.1 Hct 43.0 MCV 93.3 MCH 32.8 MCHC 35.1 RDW Std Deviation 44.5 RDW Coeff of Hang 13.1 Plt Count 78 L MPV 11.0 Immature Gran % (Auto) 0.3 Neut % (Auto) 62.7 Lymph % (Auto) 19.8 Cloud % (Auto) 15.2 Eos % (Auto) 1.0 Baso % (Auto) 1.0 Neut # (Auto) 1.90 Lymph # (Auto) 0.60 L Cloud # (Auto) 0.46 Eos # (Auto) 0.03 Baso # (Auto) 0.03 Immature Gran # (Auto) 0.01 Sodium 140 Potassium 2.9 L Chloride 101 Carbon Dioxide 21 Anion Gap 18 H BUN 7 Creatinine 0.85 Est Cr Clr Drug Dosing Not Reportable Est GFR ( Amer) 118.6 Est GFR (Non-Af Amer) 102.3 BUN/Creatinine Ratio 8.2 L Glucose 154 H Lactate 4.2 H* 1.4 Calcium 8.1 L Magnesium 0.8 L* Total Bilirubin 2.7 H Direct Bilirubin 1.0 H AST 123 H ALT 83 H Alkaline Phosphatase 71 Ammonia 54.0 Troponin I High Sens 5.2 Total Protein 8.2 Albumin 3.9 Lipase 55 Ethyl Alcohol mg/dL < 10.0 Diagnostic Findings Chest X-Ray 08/24/23 07:13 XR chest 1V portable CLINICAL HISTORY: sOB TECHNIQUE: Single frontal radiograph of the chest was obtained. Comparison: Comparison is made to chest radiograph 07/20/2023 FINDINGS: No lines and tubes are seen. The cardiomediastinal silhouette is normal. The lungs are clear. No evidence of pleural effusion or pneumothorax. IMPRESSION: No acute chest disease. ACT 112: Negative or not required by law. Electronically signed by: Darrel Haney M.D. 08/24/2023 8:04 AM Medications Administered Discontinued Medications Diazepam (Diazepam 5 Mg/Ml 10ml Vial) Confirm Administered Dose 50 mg .ROUTE .STK-MED ONE Stop: 08/24/23 07:32 Last Admin: 08/24/23 07:46 Dose: Not Given Documented By: GAMALIEL Diazepam (Diazepam 5 Mg/Ml 10ml Vial) 10 mg IV NOW STA Stop: 08/24/23 07:46 Last Admin: 08/24/23 07:46 Dose: 10 mg Documented By: GAMALIEL Multivitamins 10 ml/ Thiamine HCl 100 mg/ Folic Acid 1 mg/Sodium Chloride 1,011.2 mls @ 500 mls/hr IV .Q2H2M ONE Stop: 08/24/23 09:49 Last Admin: 08/24/23 08:44 Dose: 500 mls/hr Documented By: GAMALIEL Sodium Chloride (Nss) 1,000 mls @ 999 mls/hr IV .Q1H1M ONE Stop: 08/24/23 08:48 Last Infusion: 08/24/23 09:14 Dose: Infused Documented By: Admin: 08/24/23 08:03 Dose: 999 mls/hr Documented By: YOLANDE Magnesium Sulfate/Dextrose (Magnesium Sulfate / D5w) 1 gm in 100 mls @ 200 mls/hr IV Q30M LANDRY Stop: 08/24/23 09:11 Last Infusion: 08/24/23 09:14 Dose: Infused Documented By: Admin: 08/24/23 08:44 Dose: 200 mls/hr Documented By: Infusion: 08/24/23 08:44 Dose: Infused Documented By: Admin: 08/24/23 08:19 Dose: 200 mls/hr Documented By: GAMALIEL Sodium Chloride (Nss) 1,000 mls @ 999 mls/hr IV .Q1H1M ONE Stop: 08/24/23 09:35 Last Infusion: 08/24/23 10:03 Dose: Infused Documented By: Admin: 08/24/23 08:44 Dose: 999 mls/hr Documented By: GAMALIEL Ondansetron HCl (Ondansetron Inj 2 Mg/Ml 2 Ml Vial) 4 mg IV NOW STA Stop: 08/24/23 08:04 Last Admin: 08/24/23 08:19 Dose: 4 mg Documented By: GAMALIEL Potassium Chloride (Potassium Chloride Crtab 20 Meq Tabcr) 40 meq PO NOW STA Stop: 08/24/23 08:12 Last Admin: 08/24/23 08:18 Dose: 40 meq Documented By: GAMALIEL Supervising Physician Co-Signing Physician Notes I have seen and discussed the case with the collaborating advanced practitioner. I agree with the above H&P. I have reviewed and confirmed the patients medical history, the findings on physical examination, and the patients diagnosis and treatment plan with RAPHAEL and agree with the information documented. In short, Mr Guillory is a 47-year-old male with past med history significant for pancreatic cyst, secondary esophageal varices without bleeding, alcoholic cirrhosis of liver with ascites, chronic cholecystitis, coagulopathy, macrocytic anemia, ongoing alcoholism/dependence came in again for detoxification. Patient discharged on 08/05 and noted he started drinking again 2 weeks ago--with last drink 08/22 around 1600. He states he hasn't taken his home medications in 2 days. He is worried because he has a new job and starts friday. He is admitted due to detox as well as multiple electrolyte abnormalities. GENERAL APPEARANCE: AxOx4, generally tremulous, ill appearing gentleman HEENT: NC, AT. MMM. EOMI, clear conjunctiva, oropharynx clear. NECK: thick neck HEART: Normal rate and regular rhythm, normal S1/S1, no m/r/g LUNGS: CTAB, moving air well. No crackles or wheezes are heard. ABDOMEN: Soft, nontender, nondistended with good bowel sounds heard. BACK: No CVAT, no obvious deformity. EXTREMITIES: Without cyanosis, clubbing or edema. NEUROLOGICAL: Grossly nonfocal. Alert and oriented, moving all 4 extremities. CN not formally tested but appear grossly intact. Skin: Warm and dry without any rash. #Hypomagnesemia, severe #Hypokalemia #Hypophosphatemia -Aggressive IV mag replacement -PO K replacement, IV k-phos -Repeat bmp this afternoon Monitor on telemetry #Prolonged QtC avoid qtc prolonging agents, aggressive lytes replacement Monitor on tele Repeat EKG in am #Alcohol withdrawal #Alcohol use disorder history of seizure "7 years ago" -last drink 08/22 @ 1600 ETOH <10 -Started on Librium taper with as needed Ativan -Folic acid, thiamine -Telemetry monitoring, AWSS protocol Telemetry #Transaminitis #Chronic cholecystitis AST>ALT consistent with etoh related injury, no abdominal pain Resume ursdiol Repeat CMP #Alcoholic cirrhosis of liver #Esophageal varices #Hx of ascites Continue home nadolol and Protonix. c/w Lasix and Aldactone . Monitor for volume overload, appears euvolemic as of now MELD labs in am Low sodium diet DVT prophylaxis: Heparin subcu. Full code I spent a total of 45 minutes coordinating, documenting, and providing care for this patient excluding time spent in the performance of separately billed servi betty. All of the aforementioned completed outside of collaborating with the assigned advanced practitioner for a full treatment plan. I have reviewed the advanced practitioner's documentation, and I agree with, and take responsibility for the plan of care (1) Alcohol withdrawal Complication of substance-induced condition: uncomplicated Qualified Code(s): F10.930 - Alcohol use, unspecified with withdrawal, uncomplicated (4) Nausea & vomiting Vomiting type: unspecified Qualified Code(s): R11.2 - Nausea with vomiting, unspecified (5) Alcoholic cirrhosis Ascites presence: unspecified Qualified Code(s): K70.30 - Alcoholic cirrhosis of liver without ascites
[2023-08-24 10:26] LABS: Phosphorus 2.2 mg/dl (2.5-4.9)
[2023-08-24] MEDS ORDERED: POTASSIUM PHOS 3 MMOL/1 ML INFUSION IV STA (10:26)
[2023-08-24] MEDS ORDERED: chlordiazePOXIDE ALCOHOL WITHDRAWL 25MG PO STA (10:30)
[2023-08-24] MEDS ORDERED: GABAPENTIN 1200MG ALCOHOL WITHDRAWAL LOAD PO STA (10:30)
[2023-08-24] MEDS ORDERED: LORazepam 2 MG in SYRINGE 1 ML IV STA (10:50)
[2023-08-24] MEDS: LORazepam 1 MG/1 ML SYR ED Inj Use IV ONE (10:59)
[2023-08-24] MEDS: GABAPENTIN 600 MG TAB PO ONE (11:00)
[2023-08-24] MEDS: chlordiazePOXIDE HCl 25 MG CAP PO SCH ×2 (11:00)
[2023-08-24] MEDS: POTASSIUM PHOSPHATE 24 MMOL in SODIUM CHLORIDE 0.9% 500 ML IV ONE (12:11)
[2023-08-24] MEDS ORDERED: Ativan IV Alcohol Withdrawal--Active Protocol IV PRN (13:13)
[2023-08-24] MEDS ORDERED: LORazepam 3 MG in SYRINGE 1.5 ML IV PRN (13:13)
[2023-08-24] MEDS: CITALOPRAM 20 MG TAB PO SCH (14:14)
[2023-08-24] MEDS: PANTOprazole 40 MG TAB PO SCH (14:14)
[2023-08-24] MEDS: LORazepam 2 MG in SYRINGE 1 ML IV PRN (14:15)
[2023-08-24 16:29] LABS: BUN Creatinine Ratio 7.3 (10-20); Calcium 6.9 mg/dl (8.6-10.3); Creatinine Clr Calc Pharmacy 116.3 ml/min; Est GFR (African American) 120.3 ml/min; Est GFR (Non-African American) 103.8 ml/min; Magnesium 1.8 mg/dl (1.7-2.4); Potassium 3.4 mmol/L (3.5-5.1)
[2023-08-24] MEDS ORDERED: GABAPENTIN 600 MG TAB PO SCH (18:00)
[2023-08-24] MEDS: nadoloL 40 MG TAB PO SCH (20:00)
[2023-08-24] MEDS: ursodioL 300 MG CAP PO SCH (20:00)
[2023-08-24] MEDS: busPIRone 5 MG TAB PO SCH (20:00)
--- NOTE | 2023-08-24 22:05 | Electrocardiogram Report ---
Test Reason : Blood Pressure : / mmHG Vent. Rate : 098 BPM Atrial Rate : 098 BPM P-R Int : 134 ms QRS Dur : 088 ms QT Int : 448 ms P-R-T Axes : 059 068 032 degrees QTc Int : 571 ms Normal sinus rhythm Prolonged QT Abnormal ECG When compared with ECG of 20-JUL-2023 00:44, QT has lengthened Confirmed by Dilip Jones ([id number]) on 08/24/2023 10:04:49 PM Referred By: REFERRED SELF Confirmed By:Dilip Jones
[2023-08-24] MEDS: ZOLPIDEM TARTRATE 5 MG TAB PO PRN (22:34)
[2023-08-25 05:56] LABS: Basophils # (auto) 0.03 K/uL (0.00-0.20); Eosinophils # (auto) 0.24 K/uL (0.00-0.50); Hemoglobin 13.6 g/dl (14.0-18.0); Immature Granulocytes # (auto) 0.01 K/uL (0.01-0.20); Immature Granulocytes % (auto) 0.3 %; Lymphocytes # (auto) 0.67 K/uL (1.20-3.40); Lymphocytes % (auto) 22.4 %; Mean Corpuscular Hemoglobin 32.3 pg (25.0-34.0); Mean Platelet Volume 11.2 fL (9.4-12.4); Monocytes # (auto) 0.41 K/uL (0.11-0.59); Monocytes % (auto) 13.7 %; Neutrophils # (auto) 1.63 K/uL (1.40-6.50); Neutrophils % (auto) 54.6 %; Platelet Count 62 K/uL (130-400); RDW Standard Deviation 44.9 fL (36.4-46.3); Red Blood Count 4.21 M/uL (4.70-6.10); White Blood Count 2.99 K/ul (4.8-10.8)
[2023-08-25 06:16] LABS: INR 1.3 (0.9-1.1); Prothrombin Time 13.9 Seconds (9.0-12.0)
[2023-08-25 06:20] LABS: Albumin Level 3.2 gm/dl (3.4-5.0); BUN Creatinine Ratio 8.8 (10-20); Bilirubin,Total 2.2 mg/dl (0.2-1.0); Calcium 6.9 mg/dl (8.6-10.3); Creatinine Clr Calc Pharmacy 137.4 ml/min; Est GFR (Non-African American) 112.1 ml/min; Globulin 3.3 gm/dl (2.5-4.0); Magnesium 1.8 mg/dl (1.7-2.4); Phosphorus 2.1 mg/dl (2.5-4.9); Potassium 3.6 mmol/L (3.5-5.1); Total Protein 6.5 gm/dl (6.0-8.3)
[2023-08-25] MEDS ORDERED: POTASSIUM PHOS 3 MMOL/1 ML INFUSION IV STA (06:47)
[2023-08-25] MEDS: ALUMINUM/MAGNESIUM SUSP 30 ML UDC PO PRN (07:36)
[2023-08-25] MEDS: POTASSIUM PHOSPHATE 24 MMOL in SODIUM CHLORIDE 0.9% 500 ML IV ONE (07:37)
[2023-08-25] MEDS: FOLIC ACID 1 MG TAB PO SCH (07:37)
[2023-08-25] MEDS: POTASSIUM CHLORIDE CRTAB 20 MEQ TABCR PO SCH (07:37)
[2023-08-25] MEDS: SPIRONOLACTONE 25 MG TAB PO SCH (07:38)
[2023-08-25] MEDS: CYANOCOBALAMIN (B-12) 500 MCG TABLET PO SCH (07:38)
[2023-08-25] MEDS: FUROSEMIDE 20 MG TAB PO SCH (07:38)
[2023-08-25] MEDS: THIAMINE HCL 100 MG TAB PO SCH (07:39)
[2023-08-25] MEDS ORDERED: GABAPENTIN 600 MG TAB PO SCH (08:00)
--- NOTE | 2023-08-25 11:14 | Electrocardiogram Report ---
Test Reason : Blood Pressure : / mmHG Vent. Rate : 054 BPM Atrial Rate : 054 BPM P-R Int : 146 ms QRS Dur : 088 ms QT Int : 550 ms P-R-T Axes : 035 055 040 degrees QTc Int : 522 ms Sinus bradycardia Low voltage QRS Prolonged QT Abnormal ECG When compared with ECG of 24-AUG-2023 07:14, Vent. rate has decreased BY 44 BPM Confirmed by Melchor Nguyen ([id number]) on 08/25/2023 11:13:59 AM Referred By: Clair Villasenor Confirmed By:Dima Nugyen
[2023-08-25] MEDS: busPIRone 5 MG TAB PO SCH (13:29)
[2023-08-25] MEDS: LORazepam 1 MG in SYRINGE 0.5 ML IV PRN (13:29)
--- NOTE | 2023-08-25 14:25 | Hospitalist Progress Note ---
Date of Service August 25, 2023 Assessment & Plan (1) Alcohol withdrawal: (2) Acute hypokalemia: (3) Hypomagnesemia: (4) Nausea & vomiting: (5) Alcoholic cirrhosis: Plan In short, Mr Guillory is a 47-year-old male with past med history significant for pancreatic cyst, secondary esophageal varices without bleeding, alcoholic cirrhosis of liver with ascites, chronic cholecystitis, coagulopathy, macrocytic anemia, ongoing alcoholism/dependence came in again for detoxification. Patient discharged on 08/05 and noted he started drinking again 2 weeks ago--with last drink 08/22 around 1600. He states he hasn't taken his home medications in 2 days. He is worried because he has a new job and starts Friday. He is admitted due to detox as well as multiple electrolyte abnormalities. Patient appears better, though we reports notable weakness and anxiety. Will order PT/OT eval and increase home buspar. Multiple options limited 2.2 QTc prolongation and already with multiple dosing of ativan for withdrawal. CTM. #Generalized weakness suspect due to severe electrolyte abnormality PT.OT eval #Hypomagnesemia, severe #Hypokalemia #Hypophosphatemia -s/p Aggressive IV mag replacement -PO K replacement, IV k-phos Notably improved electrolytes Monitor on telemetry #Vitamin D Deficiency #Hypocalcemia -Vitamin D2 q7ds -Tums 1500 TID (will add with nausea) #Prolonged QtC avoid qtc prolonging agents, aggressive lytes replacement Monitor on tele Repeat EKG in am, still 522 #Alcohol withdrawal #Alcohol use disorder history of seizure "7 years ago" -last drink 08/22 @ 1600 ETOH <10 -Continue on Librium taper with as needed Ativan -Folic acid, thiamine -Telemetry monitoring, AWSS protocol #Transaminitis *improving #Chronic cholecystitis AST>ALT consistent with etoh related injury, no abdominal pain Resume ursdiol Repeat CMP in am #Alcoholic cirrhosis of liver #Esophageal varices #Hx of ascites Continue home nadolol and Protonix. c/w Lasix and Aldactone . Monitor for volume overload, appears euvolemic as of now MELD labs in am (MELD 08/24 9) Low sodium diet #Anxiety Increase buspar 10mg TID BHL given ongoing history of anxiety Code Status: Full code DVT Prophylaxis: SCDs for now (Hx UGI bleed) Dispo: PCU Admission and Anticipated Discharge Date Admission Date: August 24, 2023 Subjective Reports feeling anxious and nauseous reports diarrhea which he reports often happensduring detox Discussed concern with EKG and limitations with IV antiemetics, verbalized understanding Reports weakness in lower extremities Physical Exam Constitutional: WD/WN, vitals as above looks much improved from day prior, less tremulous Respiratory: normal respiratory effort, lungs clear to auscultation Cardiovascular: RRR, no murmur, no edema Results & Data Results & Data Vital Signs (Past 12 Hours) Vital Signs Temp Pulse Resp BP Pulse Ox O2 Del Method 08/25/23 11:41 36.6 C 62 20 142/79 H 94 Room Air 08/25/23 07:30 36.8 C 53 L 16 127/78 91 Room Air 08/25/23 07:18 37.1 C 55 L 14 93 Room Air 08/25/23 03:05 37.1 C 64 17 119/73 97 Room Air Laboratory Results Short CBC 08/25/23 Range/Units 05:34 WBC 2.99 L (4.8-10.8) K/ul Hgb 13.6 L (14.0-18.0) g/dl Hct 40.0 L (42.0-52.0) % Plt Count 62 L (130-400) K/uL [facility] 08/24/23 08/25/23 15:52 05:34 Sodium 138 139 Potassium 3.4 L 3.6 Chloride 105 107 Carbon Dioxide 20 L 24 BUN 6 6 Creatinine 0.82 0.68 Glucose 116 H 88 Calcium 6.9 L 6.9 L Liver Function 08/25/23 Range/Units 05:34 Total Bilirubin 2.2 H (0.2-1.0) mg/dl AST 82 H (13-39) U/L ALT 57 H (7-52) U/L Alkaline Phosphatase 62 (34-104) U/L Albumin 3.2 L (3.4-5.0) gm/dl Medications Administered Home Medications Medication Instructions Recorded Confirmed Last Taken buspirone 5 mg tablet 5 mg PO AMHS 06/10/18 08/24/23 08/22/23 nadolol 20 mg tablet 20 mg PO QPM 06/10/18 08/24/23 08/22/23 potassium chloride 10 mEq 10 meq PO QAM 03/08/24/23 08/22/23 tablet,extended release ursodiol 300 mg capsule 300 mg PO BID 06/10/18 08/24/23 2 Days Ago ~07/30/23 zolpidem 5 mg tablet (Ambien) 5 mg PO HS PRN Sleep 06/10/18 08/24/23 08/22/23 furosemide 20 mg tablet 20 mg PO QAM 11/14/22 08/24/23 08/22/23 spironolactone 25 mg tablet 25 mg PO QAM 11/14/22 08/24/23 08/22/23 citalopram 10 mg tablet 10 mg PO QAM 04/09/23 08/24/23 08/22/23 folic acid 1 mg tablet 1 mg PO QAM #30 tabs 06/06/23 08/24/23 08/22/23 thiamine HCl (vitamin B1) 100 mg 100 mg PO QAM #30 tabs 06/06/23 08/24/23 08/22/23 tablet cyanocobalamin (vitamin B-12) 250 250 mcg PO QAM 07/03/23 08/24/23 08/22/23 mcg tablet (Vitamin B-12) gabapentin 300 mg capsule 300 mg PO TID 07/03/23 08/24/23 08/22/23 pantoprazole 40 mg tablet,delayed 40 mg PO QAM 08/01/23 08/24/23 08/22/23 release Active Medications Generic Name Dose Route Start Last Admin Trade Name Freq PRN Reason Stop Dose Admin Al Hydrox/Mg Hydrox/Simethicone 15 ml 08/24/23 10:50 08/25/23 07:36 Aluminum/Magnesium Susp 30 Ml Udc PO 09/23/23 10:49 15 ml Q6H PRN Administration Nausea Buspirone HCl 10 mg 08/25/23 14:00 08/25/23 13:29 Buspirone 5 Mg Tab PO 09/24/23 13:59 10 mg TID LANDRY Administration Chlordiazepoxide HCl 25 mg 08/25/23 13:00 08/24/23 11:00 Chlordiazepoxide Hcl 25 Mg Cap PO 08/26/23 05:01 25 mg Q8H LANDRY Administration Citalopram Hydrobromide 10 mg 08/24/23 12:42 08/25/23 07:38 Citalopram 20 Mg Tab PO 09/23/23 12:41 10 mg QAM LANDRY Administration Cyanocobalamin 250 mcg 08/25/23 09:00 08/25/23 07:38 Cyanocobalamin (B-12) 500 Mcg Tablet PO 09/24/23 08:59 250 mcg QAM LANDRY Administration Folic Acid 1 mg 08/25/23 09:00 08/25/23 07:37 Folic Acid 1 Mg Tab PO 09/24/23 08:59 1 mg QAM LANDRY Administration Furosemide 20 mg 08/25/23 09:00 08/25/23 07:38 Furosemide 20 Mg Tab PO 09/24/23 08:59 20 mg QAM LANDRY Administration Lorazepam 1 mg/ Syringe 1 mls @ 2 mls/min 08/24/23 13:13 08/25/23 13:29 IV 09/23/23 13:12 2 mls/min UD PRN Administration EtOH Withdrawal AWSS Score 6,7 Protocol Lorazepam 2 mg/ Syringe 2 mls @ 2 mls/min 08/24/23 13:13 08/25/23 08:19 IV 09/23/23 13:12 2 mls/min UD PRN Administration EtOH Withdrawal AWSS Score 8,9 Protocol Nadolol 20 mg 08/24/23 21:00 08/24/23 20:00 Nadolol 40 Mg Tab PO 09/23/23 20:59 20 mg QPM LANDRY Administration Pantoprazole Sodium 40 mg 08/24/23 13:00 08/25/23 07:38 Pantoprazole 40 Mg Tab PO 09/23/23 12:59 40 mg QAM LANDRY Administration Potassium Chloride 40 meq 08/25/23 09:00 08/25/23 07:37 Potassium Chloride Crtab 20 Meq Tabcr PO 09/24/23 08:59 40 meq QAM LANDRY Administration Spironolactone 25 mg 08/25/23 09:00 08/25/23 07:38 Spironolactone 25 Mg Tab PO 09/24/23 08:59 25 mg QAM LANDRY Administration Thiamine HCl 100 mg 08/25/23 09:00 08/25/23 07:39 Thiamine Hcl 100 Mg Tab PO 09/24/23 08:59 100 mg QAM LANDRY Administration Ursodiol 300 mg 08/24/23 21:00 08/25/23 07:37 Ursodiol 300 Mg Cap PO 09/23/23 20:59 300 mg BID LANDRY Administration Zolpidem Tartrate 5 mg 08/24/23 12:42 08/24/23 22:34 Zolpidem Tartrate 5 Mg Tab PO 09/23/23 12:41 5 mg HS PRN Administration Sleep (1) Alcohol withdrawal Complication of substance-induced condition: uncomplicated Qualified Code(s): F10.930 - Alcohol use, unspecified with withdrawal, uncomplicated (4) Nausea & vomiting Vomiting type: unspecified Qualified Code(s): R11.2 - Nausea with vomiting, unspecified (5) Alcoholic cirrhosis Ascites presence: unspecified Qualified Code(s): K70.30 - Alcoholic cirrhosis of liver without ascites
[2023-08-25] MEDS: CALCIUM CARBONATE 500 MG CHEWABLE TAB PO SCH (14:43)
[2023-08-25] MEDS: ERGOCALCIFEROL 1250 MCG (50,000 UNITS) CAP PO SCH (16:42)
[2023-08-25] MEDS: LOPERAMIDE HCL 2 MG CAP PO PRN (16:42)
[2023-08-25] MEDS: diazePAM 2 MG TABLET PO ONE (21:13)
[2023-08-26] MEDS: diazePAM 2 MG TABLET PO ONE (06:32)
[2023-08-26 07:42] LABS: Hematocrit (blood only) 41.2 % (42.0-52.0); Mean Corpuscular Hemoglobin 32.8 pg (25.0-34.0); Mean Corpuscular Volume 96.5 fL (80.0-100.0); Mean Platelet Volume 11.4 fL (9.4-12.4); Platelet Count 57 K/uL (130-400); RDW Coefficient of Variation 13.2 % (11.5-14.5); RDW Standard Deviation 46.6 fL (36.4-46.3); Red Blood Count 4.27 M/uL (4.70-6.10); White Blood Count 3.54 K/ul (4.8-10.8)
--- NOTE | 2023-08-26 08:06 | Electrocardiogram Report ---
Test Reason : Blood Pressure : / mmHG Vent. Rate : 048 BPM Atrial Rate : 048 BPM P-R Int : 128 ms QRS Dur : 088 ms QT Int : 544 ms P-R-T Axes : 044 066 037 degrees QTc Int : 485 ms Poor data quality, interpretation may be adversely affected Sinus bradycardia Prolonged QT Abnormal ECG When compared with ECG of 25-AUG-2023 06:33, No significant change was found Confirmed by Guy Dejesus ([id number]) on 08/26/2023 8:06:13 AM Referred By: Clair Villasenor Confirmed By:Guy Dejesus
[2023-08-26 08:07] LABS: Albumin Globulin Ratio 0.9 (0.9-2); Albumin Level 3.3 gm/dl (3.4-5.0); BUN Creatinine Ratio 13.6 (10-20); Bilirubin,Total 1.9 mg/dl (0.2-1.0); Calcium 7.9 mg/dl (8.6-10.3); Est GFR (African American) 131.6 ml/min; Est GFR (Non-African American) 113.5 ml/min; Globulin 3.6 gm/dl (2.5-4.0); Magnesium 1.5 mg/dl (1.7-2.4); Phosphorus 3.1 mg/dl (2.5-4.9); Potassium 3.8 mmol/L (3.5-5.1); Total Protein 6.9 gm/dl (6.0-8.3)
[2023-08-26] MEDS ORDERED: GABAPENTIN 600 MG TAB PO SCH (12:00)
[2023-08-26] MEDS: PROCHLORPERAZINE 5 MG in SYRINGE 4 ML IV ONE (13:24)
[2023-08-26] MEDS: MAGNESIUM CHLORIDE W/CALCIUM 64MG DELAYED REL TAB PO SCH (13:33)
--- NOTE | 2023-08-26 17:03 | Hospitalist Progress Note ---
Date of Service August 26, 2023 Assessment & Plan (1) Alcohol withdrawal: (2) Acute hypokalemia: (3) Hypomagnesemia: (4) Nausea & vomiting: (5) Alcoholic cirrhosis: Plan In short, Mr Guillory is a 47-year-old male with past med history significant for pancreatic cyst, secondary esophageal varices without bleeding, alcoholic cirrhosis of liver with ascites, chronic cholecystitis, coagulopathy, macrocytic anemia, ongoing alcoholism/dependence came in again for detoxification. Patient discharged on 08/05 and noted he started drinking again 2 weeks ago--with last drink 08/22 around 1600. He states he hasn't taken his home medications in 2 days. He is worried because he has a new job and starts Friday. He is admitted due to detox as well as multiple electrolyte abnormalities. Patient appears better, though we reports notable weakness and anxiety. 08/24 Increased home buspar. Patient witnessed ambulating hallways, reports feeling weak; discussed case with PT, recommended one more day of PT review before discharging #Generalized weakness suspect due to severe electrolyte abnormality PT.OT: weakness noted, recommend repeat eval #Hypomagnesemia, severe #Hypokalemia #Hypophosphatemia -s/p Aggressive IV mag replacement -PO K replacement, IV k-phos Notably improved electrolytes Monitor on telemetry start slow-mag #Vitamin D Deficiency #Hypocalcemia -Vitamin D2 q7ds -Tums 1500 TID (will add with nausea) #Prolonged QtC avoid qtc prolonging agents, aggressive lytes replacement Monitor on tele #Alcohol withdrawal #Alcohol use disorder history of seizure "7 years ago" -last drink 08/22 @ 1600 ETOH <10 -Continue on Librium taper with as needed Ativan -Folic acid, thiamine -Telemetry monitoring, AWSS protocol #Transaminitis *improving #Chronic cholecystitis AST>ALT consistent with etoh related injury, no abdominal pain Resume ursdiol Repeat CMP in am #Alcoholic cirrhosis of liver #Esophageal varices #Hx of ascites Continue home nadolol and Protonix. c/w Lasix and Aldactone . Monitor for volume overload, appears euvolemic as of now MELD labs in am (MELD 08/24 9) Low sodium diet #Anxiety Increased buspar 10mg TID, continue BHL given ongoing history of anxiety Code Status: Full code DVT Prophylaxis: SCDs for now (Hx UGI bleed) Dispo: PCU Admission and Anticipated Discharge Date Admission Date: August 24, 2023 Subjective Witnessed patient ambulating from room 201 to room 275-2 However upon exam still reports anxiety and weakness Denies vomiting---patient endorses nausea Physical Exam Constitutional: WD/WN, vitals as above Respiratory: normal respiratory effort, lungs clear to auscultation Cardiovascular: RRR, no murmur, no edema Gastrointestinal (Abdomen): normal bowel sounds, soft, nontender, no hepatosplenomegaly Results & Data Results & Data Vital Signs (Past 12 Hours) Vital Signs Temp Pulse Pulse Pulse Resp BP Pulse Ox 08/26/23 15:44 69 08/26/23 15:21 36.8 C 87 16 118/67 92 08/26/23 11:25 36.6 C 57 L 16 125/73 94 08/26/23 10:00 51 L 08/26/23 10:00 08/26/23 10:00 36.5 C 54 L 18 125/76 97 08/26/23 07:00 36.8 C 68 18 126/69 96 O2 Del Method 08/26/23 15:44 08/26/23 15:21 Room Air 08/26/23 11:25 Room Air 08/26/23 10:00 08/26/23 10:00 Room Air 08/26/23 10:00 Room Air 08/26/23 07:00 Room Air Laboratory Results Short CBC 08/26/23 Range/Units 07:08 WBC 3.54 L (4.8-10.8) K/ul Hgb 14.0 (14.0-18.0) g/dl Hct 41.2 L (42.0-52.0) % Plt Count 57 L (130-400) K/uL BMP 08/26/23 07:08 Sodium 138 Potassium 3.8 Chloride 105 Carbon Dioxide 26 BUN 9 Creatinine 0.66 Glucose 80 Calcium 7.9 L Liver Function 08/26/23 Range/Units 07:08 Total Bilirubin 1.9 H (0.2-1.0) mg/dl AST 104 H (13-39) U/L ALT 55 H (7-52) U/L Alkaline Phosphatase 59 (34-104) U/L Albumin 3.3 L (3.4-5.0) gm/dl Medications Administered Home Medications Medication Instructions Recorded Confirmed Last Taken buspirone 5 mg tablet 5 mg PO AMHS 06/10/18 08/24/23 08/22/23 nadolol 20 mg tablet 20 mg PO QPM 06/10/18 08/24/23 08/22/23 potassium chloride 10 mEq 10 meq PO QAM 06/10/18 08/24/23 08/22/23 tablet,extended release ursodiol 300 mg capsule 300 mg PO BID 06/10/18 08/24/23 2 Days Ago ~07/30/23 zolpidem 5 mg tablet (Ambien) 5 mg PO HS PRN Sleep 06/10/18 08/24/23 08/22/23 furosemide 20 mg tablet 20 mg PO QAM 11/14/22 08/24/23 08/22/23 spironolactone 25 mg tablet 25 mg PO QAM 11/14/22 08/24/23 08/22/23 citalopram 10 mg tablet 10 mg PO QAM 04/09/23 08/24/23 08/22/23 folic acid 1 mg tablet 1 mg PO QAM #30 tabs 06/06/23 08/24/23 08/22/23 thiamine HCl (vitamin B1) 100 mg 100 mg PO QAM #30 tabs 06/06/23 08/24/23 08/22/23 tablet cyanocobalamin (vitamin B-12) 250 250 mcg PO QAM 07/03/23 08/24/23 08/22/23 mcg tablet (Vitamin B-12) gabapentin 300 mg capsule 300 mg PO TID 07/03/23 08/24/23 08/22/23 pantoprazole 40 mg tablet,delayed 40 mg PO QAM 08/01/23 08/24/23 08/22/23 release Active Medications Generic Name Dose Route Start Last Admin Trade Name Freq PRN Reason Stop Dose Admin Al Hydrox/Mg Hydrox/Simethicone 15 ml 08/24/23 10:50 08/25/23 07:36 Aluminum/Magnesium Susp 30 Ml Udc PO 09/23/23 10:49 15 ml Q6H PRN Administration Nausea Buspirone HCl 10 mg 08/25/23 14:00 08/26/23 12:34 Buspirone 5 Mg Tab PO 09/24/23 13:59 10 mg TID LANDRY Administration Calcium Carbonate 1,500 mg 08/25/23 14:00 08/26/23 12:34 Calcium Carbonate 500 Mg Chewable Tab PO 09/24/23 13:59 1,500 mg TID LANDRY Administration Chlordiazepoxide HCl 10 mg 08/26/23 13:00 08/26/23 12:34 Chlordiazepoxide Hcl 10 Mg Cap PO 08/27/23 05:01 10 mg Q8H LANDRY Administration Citalopram Hydrobromide 10 mg 08/24/23 12:42 08/26/23 09:27 Citalopram 20 Mg Tab PO 09/23/23 12:41 10 mg QAM LANDRY Administration Cyanocobalamin 250 mcg 08/25/23 09:00 08/26/23 09:27 Cyanocobalamin (B-12) 500 Mcg Tablet PO 09/24/23 08:59 250 mcg QAM LANDRY Administration Ergocalciferol 1,250 mcg 08/25/23 14:30 08/25/23 16:42 Ergocalciferol 1250 Mcg (50,000 Units) Cap PO 09/24/23 14:29 1,250 mcg Mo@0900 LANDRY Administration Folic Acid 1 mg 08/25/23 09:00 08/26/23 09:27 Folic Acid 1 Mg Tab PO 09/24/23 08:59 1 mg QAM LANDRY Administration Furosemide 20 mg 08/25/23 09:00 08/26/23 09:27 Furosemide 20 Mg Tab PO 09/24/23 08:59 20 mg QAM LANDRY Administration Lorazepam 1 mg/ Syringe 1 mls @ 2 mls/min 08/24/23 13:13 08/25/23 13:29 IV 09/23/23 13:12 2 mls/min UD PRN Administration EtOH Withdrawal AWSS Score 6,7 Protocol Lorazepam 2 mg/ Syringe 2 mls @ 2 mls/min 08/24/23 13:13 08/25/23 08:19 IV 09/23/23 13:12 2 mls/min UD PRN Administration EtOH Withdrawal AWSS Score 8,9 Protocol Loperamide HCl 2 mg 08/25/23 14:20 08/25/23 20:30 Loperamide Hcl 2 Mg Cap PO 09/24/23 14:19 2 mg Q4H PRN Administration Diarrhea Magnesium Chloride 64 mg 08/26/23 13:15 08/26/23 13:33 Magnesium Chloride W/Calcium 64mg Delayed Rel Tab PO 09/25/23 13:14 64 mg BID LANDRY Administration Nadolol 20 mg 08/24/23 21:00 08/25/23 20:31 Nadolol 40 Mg Tab PO 09/23/23 20:59 20 mg QPM LANDRY Administration Pantoprazole Sodium 40 mg 08/24/23 13:00 08/26/23 09:27 Pantoprazole 40 Mg Tab PO 09/23/23 12:59 40 mg QAM LANDRY Administration Potassium Chloride 40 meq 08/25/23 09:00 08/26/23 09:27 Potassium Chloride Crtab 20 Meq Tabcr PO 09/24/23 08:59 40 meq QAM LANDRY Administration Spironolactone 25 mg 08/25/23 09:00 08/26/23 09:27 Spironolactone 25 Mg Tab PO 09/24/23 08:59 25 mg QAM LANDRY Administration Thiamine HCl 100 mg 08/25/23 09:00 08/26/23 09:27 Thiamine Hcl 100 Mg Tab PO 09/24/23 08:59 100 mg QAM LANDRY Administration Ursodiol 300 mg 08/24/23 21:00 08/26/23 09:26 Ursodiol 300 Mg Cap PO 09/23/23 20:59 300 mg BID LANDRY Administration Zolpidem Tartrate 5 mg 08/24/23 12:42 08/25/23 20:31 Zolpidem Tartrate 5 Mg Tab PO 09/23/23 12:41 5 mg HS PRN Administration Sleep (4) Nausea & vomiting Vomiting type: unspecified Qualified Code(s): R11.2 - Nausea with vomiting, unspecified (5) Alcoholic cirrhosis Ascites presence: unspecified Qualified Code(s): K70.30 - Alcoholic cirrhosis of liver without ascites
[2023-08-26] MEDS: ACETAMINOPHEN 1,000 MG/100 ML VIAL IV STA (17:33)
[2023-08-26 18:10] LABS: Adenovirus F 40/41 PCR Not Detected (NotDetected); Astrovirus PCR Not Detected (NotDetected); Campylobacter PCR Not Detected (NotDetected); Cryptosporidium PCR Not Detected (NotDetected); Cyclospora cayetanensis PCR Not Detected (NotDetected); Entamoeba histolytica PCR Not Detected (NotDetected); Enteroaggregative E.coli(EAEC) Not Detected (NotDetected); Enteropathogenic E.coli (EPEC) Not Detected (NotDetected); Enterotoxigenic E.coli (ETEC) Not Detected (NotDetected); Giardia lamblia PCR Not Detected (NotDetected); Norovirus GI/GII PCR Not Detected (NotDetected); Plesiomonas shigelloides PCR Not Detected (NotDetected); Rotavirus A PCR Not Detected (NotDetected); Salmonella PCR Not Detected (NotDetected); Sapovirus PCR Not Detected (NotDetected); Shiga-like Toxin E.coli (STEC) Not Detected (NotDetected); Shigella/Enteroinvasive E.coli Not Detected (NotDetected); Vibrio cholerae PCR Not Detected (NotDetected); Vibrio species PCR Not Detected (NotDetected); Yersinia enterocolitica PCR Not Detected (NotDetected)
[2023-08-27 06:58] LABS: Hematocrit (blood only) 42.4 % (42.0-52.0); Hemoglobin 14.3 g/dl (14.0-18.0); Mean Corpuscular Hemoglobin 32.2 pg (25.0-34.0); Mean Corpuscular Hgb Conc 33.7 g/dL (32.0-36.0); Mean Corpuscular Volume 95.5 fL (80.0-100.0); Mean Platelet Volume 11.9 fL (9.4-12.4); Platelet Count 63 K/uL (130-400); RDW Coefficient of Variation 13.3 % (11.5-14.5); RDW Standard Deviation 46.5 fL (36.4-46.3); Red Blood Count 4.44 M/uL (4.70-6.10); White Blood Count 3.91 K/ul (4.8-10.8)
[2023-08-27 07:37] LABS: Albumin Globulin Ratio 0.9 (0.9-2); Albumin Level 3.3 gm/dl (3.4-5.0); BUN Creatinine Ratio 16.1 (10-20); Bilirubin,Total 1.6 mg/dl (0.2-1.0); Calcium 8.8 mg/dl (8.6-10.3); Est GFR (Non-African American) 116.5 ml/min; Globulin 3.6 gm/dl (2.5-4.0); Magnesium 1.5 mg/dl (1.7-2.4); Phosphorus 4.6 mg/dl (2.5-4.9); Potassium 3.7 mmol/L (3.5-5.1); Total Protein 6.9 gm/dl (6.0-8.3)
[2023-08-27] MEDS: PROCHLORPERAZINE 5 MG in SYRINGE 4 ML IV PRN (08:45)
[2023-08-27] MEDS: MAGNESIUM SULFATE / D5W 1 GM/100 ML BAG IV SCH (09:40)
--- NOTE | 2023-08-27 11:34 | Electrocardiogram Report ---
Test Reason : Blood Pressure : / mmHG Vent. Rate : 042 BPM Atrial Rate : 042 BPM P-R Int : 138 ms QRS Dur : 088 ms QT Int : 536 ms P-R-T Axes : 073 074 055 degrees QTc Int : 447 ms Poor data quality, interpretation may be adversely affected Marked sinus bradycardia Nonspecific ST abnormality Anteroseptal leads Abnormal ECG When compared with ECG of 26-AUG-2023 06:34, Nonspecific T wave abnormality now present Confirmed by Guy Dejesus ([id number]) on 08/27/2023 11:34:03 AM Referred By: Clair Villasenor Confirmed By:Guy Dejesus
--- NOTE | 2023-08-27 14:36 | Discharge Summary ---
Date of Service August 27, 2023 Admission HPI Per Admitting Provider This is a 47 y/o male with ongoing alcohol abuse, EtOH cirrhosis, known esophageal varices, hx EtOH withdrawal seizures (7 years ago), mood disorder, and other history as outlined who presents to the ED today with difficulty walking and tremulousness. Pt has been admitted to this facility multiple times over the last several months with most recent admission 07/31-08/06/23 for alcohol withdrawal and request for detox. He did follow-up with his PCP for possible initiation of naltrexone but they declined to start this with his multiple medical conditions. Initially, he felt like he was doing okay but then relapsed about two weeks ago although he doesn't recall a specific trigger. He has been attending outpatient rehab appointments. Yesterday, he had 12 drinks with his last drink around 4 pm. He was recently seen at [facility] and more intensive outpatient EtOH rehab was arranged but he has not started this yet. However, he has become more tremulous, even when he was drinking, and had difficulty walking today so he came to the ED for evaluation. Work-up in the ED showed multiple electrolyte abnormalities so he was referred for admission. He reports that he is overall "just feeling crappy" with associated nausea, dry heaves, sweats. He also notes that his face feels numb. He denies chest pain, shortness of breath, seizures, syncope. Last BM was today - no melena or hematochezia. Denies dysuria or hematuria. No peripheral edema. 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 Admission Exam Per Admitting Provider GENERAL APPEARANCE: AxOx4, generally tremulous, ill appearing gentleman HEENT: NC, AT. MMM. EOMI, clear conjunctiva, oropharynx clear. NECK: thick neck HEART: Normal rate and regular rhythm, normal S1/S1, no m/r/g LUNGS: CTAB, moving air well. No crackles or wheezes are heard. ABDOMEN: Soft, nontender, nondistended with good bowel sounds heard. BACK: No CVAT, no obvious deformity. EXTREMITIES: Without cyanosis, clubbing or edema. NEUROLOGICAL: Grossly nonfocal. Alert and oriented, moving all 4 extremities. CN not formally tested but appear grossly intact. Skin: Warm and dry without any rash. Principal Diagnosis Alcohol withdrawal Generalized weakness Electrolyte abnormalities Discharge Exam GENERAL: Alert and oriented x3. NAD, on RA. HEENT: No pallor, no icterus. Pupils equal, round and reactive to light. Oral mucosa moist. NECK: No JVD, no neck masses. HEART: S1 and S2 heard. Regular rate and rhythm. No murmur, no gallop. RESPIRATORY SYSTEM: Normal AP diameter. No accessory muscle use. No wheezing, no crackles. ABDOMEN: Soft, bowel sounds present, nontender, no distention. CENTRAL NERVOUS SYSTEM: No facial droop. Speech is clear. Obeys simple commands. Moves extremities. EXTREMITIES: No edema, no erythema seen. Discharge Data Allergies Allergy/AdvReac Type Severity Reaction Status Date / Time aspirin AdvReac Unknown THINS Verified 08/01/23 20:13 BLOOD, NOSE BLEEDS Consultations 08/24/23 09:56 ED Decision to Admit Stat 08/25/23 14:37 Consult Behavioral Health Liaison Routine Hospital Course (1) Alcohol withdrawal: (2) Acute hypokalemia: (3) Hypomagnesemia: (4) Nausea & vomiting: (5) Alcoholic cirrhosis: Plan Per prior attending with addendum: In short, Mr Guillory is a 47-year-old male with past med history significant for pancreatic cyst, secondary esophageal varices without bleeding, alcoholic cirrhosis of liver with ascites, chronic cholecystitis, coagulopathy, macrocytic anemia, ongoing alcoholism/dependence came in again for detoxification. Patient discharged on 08/05 and noted he started drinking again 2 weeks ago--with last drink 08/22 around 1600. He states he hasn't taken his home medications in 2 days. He is worried because he has a new job and starts Friday. He is admitted due to detox as well as multiple electrolyte abnormalities. Patient appears better, though we reports notable weakness and anxiety. 08/24 Increased home buspar. Patient witnessed ambulating hallways, reports feeling weak; discussed case with PT, recommended one more day of PT review before discharging #Generalized weakness suspect due to severe electrolyte abnormality PT.OT: weakness noted, recommend repeat eval #Hypomagnesemia, severe #Hypokalemia #Hypophosphatemia -s/p Aggressive IV mag replacement -PO K replacement, IV k-phos Notably improved electrolytes Monitor on telemetry start slow-mag #Vitamin D Deficiency #Hypocalcemia -Vitamin D2 q7ds -Tums 1500 TID (will add with nausea) #Prolonged QtC avoid qtc prolonging agents, aggressive lytes replacement Monitor on tele #Alcohol withdrawal #Alcohol use disorder history of seizure "7 years ago" -last drink 08/22 @ 1600 ETOH <10 -Continue on Librium taper with as needed Ativan -Folic acid, thiamine -Telemetry monitoring, AWSS protocol #Transaminitis *improving #Chronic cholecystitis AST>ALT consistent with etoh related injury, no abdominal pain Resume ursdiol Repeat CMP in am #Alcoholic cirrhosis of liver #Esophageal varices #Hx of ascites Continue home nadolol and Protonix. c/w Lasix and Aldactone . Monitor for volume overload, appears euvolemic as of now MELD labs in am (MELD 08/24 9) Low sodium diet #Anxiety Increased buspar 10mg TID, continue BHL given ongoing history of anxiety Code Status: Full code DVT Prophylaxis: SCDs for now (Hx UGI bleed) Dispo: PCU Addendum 08/27/2023: Patient seen and examined at bedside as a follow-up of electrolyte abnormalities/generalized weakness/alcohol withdrawal. Patient has been in the hospital multiple times for alcohol detoxification. He states that he would like to go to outpatient rehab, and then again starts drinking once discharged. Naltrexone cannot be used in the patient as patient appears to be seeking to use opiates for ? pain. today he is hemodynamically stable, last as needed Ativan use was more than a day ago, multiple CIWA scores are 1. PT/OT has evaluated. Patient to complete his Librium taper. Patient advised not to drink alcohol. He voices understanding. He is being discharged with following instruction at the point of discharge: Follow-up with your primary care physician within a week time and likely you will need labs CBC/CMP/magnesium/phosphorus. As has been advised multiple times, refrain from any amount of drinking alcohol. Recommend to pursue rehab as you have been planning every time we discussed about this. Continue to take your Librium taper until it is finished. 3 more doses until finish. If you have worsening mentation/agitation/worsening weakness, report to emergency or your PCP office. You are being discharged on vitamin D supplement 50,000 units every week, take it in the morning of Mondays. You will need repeat vitamin D level in 3 months time, coordinate with the PCP office for further prescription on vitamin D and to set up the test. Take your medications as prescribed. Please make sure that you are able to get your medications today by calling your pharmacy before you leave the hospital so that your treatment continuity is not broken. Home Health Attestation I certify that this patient is under my care and that I, or a physicians assistant merchandiser working with me, had a face to-face encounter that meets the home health [id number] encounter requirements with this patient. The encounter with the patient was in whole, or in part, for the following medical condition, which is the primary reason for home health care (list medical condition): I certify that, based on my findings, the following services are medically necessary home health services: My clinical findings support the need for the above services because: Further, I certify that my clinical findings support that this patient is homebound (i.e. absences from home require considerable and taxing effort and are for medical reasons or jewish services or infrequently or of short d uration when for other reasons) because: Certification for Home Health Services: Based on the above findings, I certify that this patient is confined to the home and needs intermittent chcf care, physical therapy and/or speech therapy or continues to need occupational therapy. The patient is under my care, and I have initiated the establishment of the plan of care. This patient will be followed by a physician who will periodically review the plan of care. Total Time Total Time Spent Total Time Spent (In Minutes): 45 Discharge Plan Discharge Items Patient Disposition: Home - Self-Care Reason For Visit: ETOH WITHDRAWL, HYPOMAG Discharge Diagnosis: Alcohol withdrawal Generalized weakness Electrolyte abnormalities Activity: Resume your previous activity Non-emergency contact: Primary Care Provider Call non-emergency contact if: you have any medication questions, your symptoms worsen and your temperature is above 101 Follow-up/Referrals: Michelle Borrego DO [Primary Care Provider] - (Date & Time 09/04/2023 9:00 AM Provider Allan Lepe MD Department Family Medicine [facility] ) Diet: Low Potassium (2gm) Addtl Attending Provider Instructions: Follow-up with your primary care physician within a week time and likely you will need labs CBC/CMP/magnesium/phosphorus. As has been advised multiple times, refrain from any amount of drinking alcohol. Recommend to pursue rehab as you have been planning every time we discussed about this. Continue to take your Librium taper until it is finished. 3 more doses until finish. If you have worsening mentation/agitation/worsening weakness, report to emergency or your PCP office. You are being discharged on vitamin D supplement 50,000 units every week, take it in the morning of Mondays. You will need repeat vitamin D level in 3 months time, coordinate with the PCP office for further prescription on vitamin D and to set up the test. Take your medications as prescribed. Please make sure that you are able to get your medications today by calling your pharmacy before you leave the hospital so that your treatment continuity is not broken. Pending Studies at Discharge: No Stand-Alone Forms: [facility], Smoking Cessation Medications and DC Order Prescriptions: New magnesium chloride [Mag 64] 64 mg Tablet,Delayed Release (Dr/Ec) 64 mg PO BID Qty: 60 0RF potassium chloride 20 mEq Tablet,Er Particles/Crystals 20 meq PO QAM Qty: 30 0RF loperamide 2 mg Capsule 2 mg PO Q4H PRN (Reason: loose stool) Qty: 30 0RF calcium carbonate 500 mg calcium (1,250 mg) tablet,chewable 500 mg PO BID Qty: 60 0RF chlordiazepoxide HCl 5 mg Capsule 5 mg PO Q12H Qty: 3 0RF ergocalciferol (vitamin D2) 1,250 mcg (50,000 unit) Capsule 1,250 mcg PO Mo@0900 Qty: 4 0RF Continued buspirone 5 mg Tablet 5 mg PO AMHS nadolol 20 mg Tablet 20 mg PO QPM ursodiol 300 mg Capsule 300 mg PO BID zolpidem [Ambien] 5 mg Tablet 5 mg PO HS PRN (Reason: Sleep) spironolactone 25 mg tablet 25 mg PO QAM furosemide 20 mg tablet 20 mg PO QAM citalopram 10 mg tablet 10 mg PO QAM pantoprazole 40 mg tablet,delayed release (DR/EC) 40 mg PO QAM thiamine HCl (vitamin B1) 100 mg Tablet 100 mg PO QAM Qty: 30 0RF folic acid 1 mg Tablet 1 mg PO QAM Qty: 30 0RF gabapentin 300 mg capsule 300 mg PO TID cyanocobalamin (vitamin B-12) [Vitamin B-12] 250 mcg tablet 250 mcg PO QAM Discontinued potassium chloride 10 mEq Tablet Extended Release 10 meq PO QAM Discharge Orders: Discharge Order (Routine); Ordered 08/27/23 Ordered By: Randell Davies Admission Data Admit Date/Time: 08/24/23 10:08 Attending Provider: Randell Davies Admit Provider: Clair Villasenor Primary Care Provider: Michelle Borrego Other Providers: Clair Villasenor
[2023-08-27] MEDS ORDERED: chlordiazePOXIDE HCl 5 MG CAP PO SCH (17:00)
[2023-08-28] MEDS ORDERED: GABAPENTIN 600 MG TAB PO SCH
== END 2023-08-27 15:41 | disposition home or self-care (01) | DRG 897 ==
LOC: ED 06:54 → 2E 10:08 → SUATTDRO 10:08 → 2E 12:48 → 2N 08-26 09:46

== ENCOUNTER 2023-11-04 19:58 | Inpatient (IN) ==
[2023-11-04] MEDS: SODIUM CHLORIDE 0.9% 1,000 ML IV ONE (20:25)
[2023-11-04 20:38] LABS: Basophils # (auto) 0.07 K/uL (0.00-0.20); Basophils % (auto) 1.4 %; Eosinophils # (auto) 0.16 K/uL (0.00-0.50); Eosinophils % (auto) 3.2 %; Hematocrit (blood only) 50.6 % (42.0-52.0); Hemoglobin 17.2 g/dl (14.0-18.0); Immature Granulocytes # (auto) 0.03 K/uL (0.01-0.20); Immature Granulocytes % (auto) 0.6 %; Lymphocytes # (auto) 1.47 K/uL (1.20-3.40); Lymphocytes % (auto) 29.1 %; Mean Corpuscular Hemoglobin 33.9 pg (25.0-34.0); Mean Corpuscular Volume 99.8 fL (80.0-100.0); Mean Platelet Volume 10.2 fL (9.4-12.4); Monocytes # (auto) 0.36 K/uL (0.11-0.59); Monocytes % (auto) 7.1 %; Neutrophils # (auto) 2.97 K/uL (1.40-6.50); Neutrophils % (auto) 58.6 %; Platelet Count 116 K/uL (130-400); RDW Coefficient of Variation 13.3 % (11.5-14.5); RDW Standard Deviation 49.2 fL (36.4-46.3); Red Blood Count 5.07 M/uL (4.70-6.10); White Blood Count 5.06 K/ul (4.8-10.8)
[2023-11-04] MEDS: LORazepam 1 MG/1 ML SYR ED Inj Use IV STA (20:41)
[2023-11-04 20:55] LABS: BUN Creatinine Ratio 13.8 (10-20); Calcium 8.3 mg/dl (8.6-10.3); Creatinine Clr Calc Pharmacy 114.1 ml/min; Est GFR (African American) 120.7 ml/min; Est GFR (Non-African American) 104.2 ml/min; Potassium 3.2 mmol/L (3.5-5.1)
[2023-11-04 21:03] LABS: INR 1.2 (0.9-1.1); Partial Thromboplastin Ratio 1.1; Partial Thromboplastin Time 29 Seconds (21-31); Prothrombin Time 12.4 Seconds (9.0-12.0)
--- NOTE | 2023-11-04 21:42 | Emergency Department Note ---
History of Present Illness General Chief complaint: Detox Request Stated complaint: ALCOHOL DETOX REQ Time Seen by Provider: 11/04/23 20:09 History of Present Illness Provider complaint: Alcohol detox request 48-year-old alcoholic male presents emergency department requesting detox. Patient states he has been trying to detox from alcohol but started drinking again. Patient states he has failed detox attempts multiple times before. He states he usually drinks about 1/5 of alcohol a day and he thinks his last drink was yesterday but he is not sure. Patient Nuys any falls or traumas. He denies any seizures. Home Medications Medication Instructions Recorded Confirmed Type buspirone 5 mg tablet 5 mg PO BID 06/10/18 11/04/23 History nadolol 20 mg tablet 20 mg PO QAM 06/10/18 11/04/23 History ursodiol 300 mg capsule 300 mg PO BID 06/10/18 11/04/23 History zolpidem 5 mg tablet (Ambien) 5 mg PO HS PRN Sleep 06/10/18 11/04/23 History furosemide 20 mg tablet 20 mg PO QAM 11/14/22 11/04/23 History spironolactone 25 mg tablet 25 mg PO QAM 11/14/22 11/04/23 History citalopram 10 mg tablet 10 mg PO QAM 04/09/23 11/04/23 History folic acid 1 mg tablet 1 mg PO QAM #30 tabs 06/06/23 11/04/23 Rx thiamine HCl (vitamin B1) 100 mg 100 mg PO QAM #30 tabs 06/06/23 11/04/23 Rx tablet cyanocobalamin (vitamin B-12) 250 250 mcg PO QAM 07/03/23 11/04/23 History mcg tablet (Vitamin B-12) gabapentin 300 mg capsule 300 mg PO TID 07/03/23 11/04/23 History pantoprazole 40 mg tablet,delayed 40 mg PO QAM 08/01/23 11/04/23 History release loperamide 2 mg capsule 2 mg PO Q4H PRN loose stool #30 08/27/23 11/04/23 Rx caps magnesium chloride 64 mg 64 mg PO BID #60 tabs 08/27/23 11/04/23 Rx (magnesium chloride) tablet,delayed release (Mag 64) potassium chloride 20 mEq 20 meq PO QAM #30 tabs 08/27/23 11/04/23 Rx tablet,extended release(part/cryst) calcium carbonate 500 mg-vitamin 1 tab PO BID 11/04/23 11/04/23 History D3 5 mcg (200 unit) tablet (Oyster Shell Calcium-Vitamin D3) ergocalciferol (vitamin D2) 1,250 1,250 mcg PO WK 11/04/23 11/04/23 History mcg (50,000 unit) capsule Allergies Allergy/AdvReac Type Severity Reaction Status Date / Time aspirin AdvReac Intermediate PT STATES Verified 11/04/23 21:57 "HAPPENED A CHILD--BLOODY NOSE" Past Med/Surg History Problem List (Updated 11/04/23 @ 23:26 by Padilla Downs MD) Alcohol abuse (Acute) Prolonged QT interval (Acute) Alcoholic cirrhosis Acute hypokalemia (Acute) Nausea & vomiting (Acute) Thrombocytopenia (Acute) Transaminitis (Acute) Hypomagnesemia (Acute) Alcohol withdrawal (Acute) Alcoholic hepatitis (Acute) Alcohol withdrawal (Acute) Esophageal varices Transaminitis (Acute) Medical History Cholecystitis Choledocholithiasis Depression Anxiety UGIB (upper gastrointestinal bleed) Thrombocytopenia Ascites Alcohol abuse Alcoholic cirrhosis of liver Esophageal varices Portal hypertension History of macrocytic anemia History of alcohol abuse Surgical History History of esophagogastroduodenoscopy (EGD) Including procedures for esophageal varices banding History of tonsillectomy Family History Mother Diabetes Father Prostate cancer Other No family history of adverse response to anesthesia Social History Smoking Status: Never smoker Tobacco Type: Smokeless Tobacco (Dip or Chew) Second Hand Exposure: No; Do You Dip or Chew Tobacco: Yes; Hx Alcohol Use: Yes Alcohol type: hard liquor Hx Substance Use: No Preferred Language: Sami Communication Ability: Effective Manager Relocation Required: No Beliefs That Will Affect Care: None Current Living Situation: Alone Current Living Situation Comment: lives with parents Feels Safe at Home: Yes Assistive Devices: None Physical Exam Vital Signs Vital Signs - 24 hr 11/04/23 20:03 11/04/23 20:13 11/04/23 20:13 Temperature 36.6 C Temperature Source Temporal Artery Scan Pulse Rate 104 H Pulse Rate from SpO2 Sensor Respiratory Rate 20 Respiratory Effort / Characteristics Non-Labored Spontaneous Respiratory Depth Normal Blood Pressure 157/100 H 148/99 H 148/99 H Blood Pressure Mean 119 112 112 Pulse Oximetry 93 Oxygen Delivery Method Room Air Sepsis Recent Fever Within 48 Hours No Sepsis New/Unexplained Change in Mental Status No Sepsis Action Taken by Nursing No Action Required 11/04/23 20:13 11/04/23 20:15 11/04/23 20:20 Temperature Temperature Source Pulse Rate 85 Pulse Rate from SpO2 Sensor Respiratory Rate Respiratory Effort / Characteristics Respiratory Depth Blood Pressure 148/99 H 140/89 Blood Pressure Mean 112 107 Pulse Oximetry Oxygen Delivery Method Sepsis Recent Fever Within 48 Hours Sepsis New/Unexplained Change in Mental Status Sepsis Action Taken by Nursing 11/04/23 20:20 11/04/23 20:23 11/04/23 20:30 Temperature Temperature Source Pulse Rate 90 77 Pulse Rate from SpO2 Sensor 76 Respiratory Rate 15 13 Respiratory Effort / Characteristics Respiratory Depth Blood Pressure 140/89 Blood Pressure Mean 107 Pulse Oximetry 96 92 Oxygen Delivery Method Room Air Sepsis Recent Fever Within 48 Hours Sepsis New/Unexplained Change in Mental Status Sepsis Action Taken by Nursing 11/04/23 20:30 11/04/23 21:00 11/04/23 21:00 Temperature Temperature Source Pulse Rate 65 Pulse Rate from SpO2 Sensor 66 Respiratory Rate 16 Respiratory Effort / Characteristics Respiratory Depth Blood Pressure 138/86 119/71 Blood Pressure Mean 103 85 Pulse Oximetry 93 Oxygen Delivery Method Sepsis Recent Fever Within 48 Hours Sepsis New/Unexplained Change in Mental Status Sepsis Action Taken by Nursing 11/04/23 21:00 11/04/23 21:30 11/04/23 21:30 Temperature Temperature Source Pulse Rate 78 Pulse Rate from SpO2 Sensor 77 Respiratory Rate 22 Respiratory Effort / Characteristics Respiratory Depth Blood Pressure 119/71 143/85 H Blood Pressure Mean 85 106 Pulse Oximetry 96 Oxygen Delivery Method Sepsis Recent Fever Within 48 Hours Sepsis New/Unexplained Change in Mental Status Sepsis Action Taken by Nursing 11/04/23 21:30 11/04/23 21:57 11/04/23 22:00 Temperature Temperature Source Pulse Rate 74 Pulse Rate from SpO2 Sensor 73 Respiratory Rate 16 Respiratory Effort / Characteristics Respiratory Depth Blood Pressure 143/85 H 129/86 Blood Pressure Mean 106 102 Pulse Oximetry 96 Oxygen Delivery Method Sepsis Recent Fever Within 48 Hours Sepsis New/Unexplained Change in Mental Status Sepsis Action Taken by Nursing 11/04/23 22:15 Temperature Temperature Source Pulse Rate 77 Pulse Rate from SpO2 Sensor 77 Respiratory Rate 15 Respiratory Effort / Characteristics Respiratory Depth Blood Pressure Blood Pressure Mean Pulse Oximetry 95 Oxygen Delivery Method Sepsis Recent Fever Within 48 Hours Sepsis New/Unexplained Change in Mental Status Sepsis Action Taken by Nursing Physical Exam GENERAL: Patient smells of alcohol. Patient brought a suitcase and duffel bag with him which is at bedside. HENT: Exam performed. - Head: Normocephalic and atraumatic. - Right Ear: External ear normal. No mastoid erythema - Left Ear: External ear normal. No mastoid erythema - Mouth/Throat: The oropharynx is clear and moist. No trismus in the jaw. No dental abscesses or uvula swelling. No oropharyngeal exudate or tonsillar abscesses. EYES: Conjunctivae and EOM are normal. Pupils are equal, round, and reactive to light. Right eye exhibits no discharge. Left eye exhibits no discharge. No scleral icterus. NECK: Normal range of motion. Neck supple. No JVD present. No spinous process tenderness present. CV: Normal rate, regular rhythm, normal heart sounds and intact distal pulses. There is no peripheral edema. Palpable radial pulses bue. PULM/CHEST: Effort normal and breath sounds normal. No respiratory distress. No stridor. He has no wheezes. He has no rales. ABD: The abdomen is soft. MUSC/SKEL: Normal range of motion. There is no peripheral edema, tenderness or deformity. NEURO: He is alert and oriented to person, place, and time. He has normal strength. No cranial nerve deficit or sensory deficit. Coordination and gait normal. GCS eye subscore is 4. GCS verbal subscore is 5. GCS motor subscore is 6. Cerebellar tests wnl. SKIN: Skin is warm and dry. He is not diaphoretic. PSYCH: He has a normal mood and affect. Behavior is normal. Judgment and thought content normal. Course Course 2008: The patient was evaluated in room C10. A complete history and physical exam was performed Cardiac monitoring: An order was placed for continuous cardiac monitoring. The monitor shows a rate of 90 with sinus rhythm interpreted by in 2323: Vital signs stable. Patient resting. Patient's labs show magnesium 1.5 potassium 3.2 and alcohol greater than [address] of the head within normal limits. Patient will be admitted for electrolyte repletion which will be started in the emergency department and then hopeful placement into rehab. [facility]. Administered Medications Discontinued Medications Sodium Chloride (Nss) 1,000 mls @ 999 mls/hr IV .Q1H1M ONE Stop: 11/04/23 21:09 Last Infusion: 11/04/23 22:12 Dose: Infused Documented By: Admin: 11/04/23 20:25 Dose: 999 mls/hr Documented By: MANDA Lorazepam (Lorazepam 1 Mg/1 Ml Syr Ed Inj Use) 1 mg IV ONE STA Stop: 11/04/23 20:10 Last Admin: 11/04/23 20:41 Dose: 1 mg Documented By: MANDA Medical Decision Making Medical Records Attestation: I reviewed the patient's medical records. External medical records reviewed. Patient has multiple ER visits and admissions for alcohol abuse/withdrawal. Laboratory Data Attestation: I reviewed the patient's lab results. 11/04/23 20:17 11/04/23 20:17 Lab Results 11/04/23 Range/Units 20:17 WBC 5.06 (4.8-10.8) K/ul RBC 5.07 (4.70-6.10) M/uL Hgb 17.2 (14.0-18.0) g/dl Hct 50.6 (42.0-52.0) % MCV 99.8 (80.0-100.0) fL MCH 33.9 (25.0-34.0) pg MCHC 34.0 (32.0-36.0) g/dL RDW Std Deviation 49.2 H (36.4-46.3) fL RDW Coeff of Hang 13.3 (11.5-14.5) % Plt Count 116 L (130-400) K/uL MPV 10.2 (9.4-12.4) fL Immature Gran % (Auto) 0.6 % Neut % (Auto) 58.6 % Lymph % (Auto) 29.1 % [place] % (Auto) 7.1 % Eos % (Auto) 3.2 % Baso % (Auto) 1.4 % Neut # (Auto) 2.97 (1.40-6.50) K/uL Lymph # (Auto) 1.47 (1.20-3.40) K/uL [place] # (Auto) 0.36 (0.11-0.59) K/uL Eos # (Auto) 0.16 (0.00-0.50) K/uL Baso # (Auto) 0.07 (0.00-0.20) K/uL Immature Gran # (Auto) 0.03 (0.01-0.20) K/uL PT 12.4 H (9.0-12.0) Seconds INR 1.2 H (0.9-1.1) APTT 29 (21-31) Seconds PTT Ratio 1.1 Sodium 144 (136-145) mmol/L Potassium 3.2 L (3.5-5.1) mmol/L Chloride 103 (98-107) mmol/L Carbon Dioxide 22 (21-32) mmol/L Anion Gap 19 H (3-11) BUN 11 (6-23) mg/dl Creatinine 0.80 (0.6-1.4) mg/dl Est Cr Clr Drug Dosing 114.1 ml/min Est GFR ( Amer) 120.7 ml/min Est GFR (Non-Af Amer) 104.2 ml/min BUN/Creatinine Ratio 13.8 (10-20) Glucose 119 H (70-99(Fasting)) mg/dl Calcium 8.3 L (8.6-10.3) mg/dl Magnesium 1.5 L (1.7-2.4) mg/dl Lipase 75 (11-82) U/L Ethyl Alcohol mg/dL 375.7 H (<10.0) mg/dl Imaging Data Radiologist's Impression: Head CT 11/04/23 20:24 Exam(s): CT HEAD Without Contrast EXAM: CT Head Without Intravenous Contrast CLINICAL HISTORY: Reason for exam: ams etoh possible seizure. TECHNIQUE: Axial computed tomography images of the head/brain without intravenous contrast. CTDI is 60.92 mGy and DLP is 961.59 mGy-cm. Automated exposure control was utilized for the study. A dose lowering technique was utilized adhering to the principles of ALARA. COMPARISON: Prior head CT from November 20, 2022. FINDINGS: Brain: Unremarkable. No hemorrhage. No significant white matter disease. No edema. Ventricles: Unremarkable. No ventriculomegaly. Bones/joints: Unremarkable. No acute fracture. Soft tissues: Unremarkable. Sinuses: Unremarkable as visualized. No acute sinusitis. Mastoid air cells: Unremarkable as visualized. No mastoid effusion. IMPRESSION: No evidence of acute intracranial pathology. Electronically signed by: Megan Villanueva MD 11/04/23 22:51 PM [facility] Narrative 2009: The patient was evaluated in room C10. A complete history and physical exam was performed Cardiac monitoring: An order was placed for continuous cardiac monitoring. The monitor shows a rate of 90 with sinus rhythm interpreted by in 2323: Vital signs stable. Patient resting. Patient's labs show magnesium 1.5 potassium 3.2 and alcohol greater than [address] of the head within normal limits. Patient will be admitted for electrolyte repletion which will be started in the emergency department and then hopeful placement into rehab. [facility] Impression & Plan Acute hypokalemia, Hypomagnesemia, Alcohol abuse Discharge Plan Visit Data Chief Complaint: Detox Request Stated Complaint: ALCOHOL DETOX REQ ED Provider: Padilla Downs Discharge Problem: Acute hypokalemia, Hypomagnesemia, Alcohol abuse Patient Disposition: Admitted As Inpatient Forms Stand Alone Forms: [facility], Suicide Prevention Resources Prescriptions Prescriptions: No Action buspirone 5 mg Tablet 5 mg PO BID nadolol 20 mg Tablet 20 mg PO QAM ursodiol 300 mg Capsule 300 mg PO BID zolpidem [Ambien] 5 mg Tablet 5 mg PO HS PRN (Reason: Sleep) spironolactone 25 mg tablet 25 mg PO QAM furosemide 20 mg tablet 20 mg PO QAM citalopram 10 mg tablet 10 mg PO QAM pantoprazole 40 mg tablet,delayed release (DR/EC) 40 mg PO QAM magnesium chloride [Mag 64] 64 mg Tablet,Delayed Release (Dr/Ec) 64 mg PO BID Qty: 60 0RF potassium chloride 20 mEq Tablet,Er Particles/Crystals 20 meq PO QAM Qty: 30 0RF loperamide 2 mg Capsule 2 mg PO Q4H PRN (Reason: loose stool) Qty: 30 0RF calcium carbonate-vitamin D3 [Oyster Shell Calcium-Vit D3] 500 mg-5 mcg (200 unit) Tablet 1 tab PO BID ergocalciferol (vitamin D2) 1,250 mcg (50,000 unit) capsule 1,250 mcg PO WK Rx Instructions: MONDA[facility] thiamine HCl (vitamin B1) 100 mg Tablet 100 mg PO QAM Qty: 30 0RF folic acid 1 mg Tablet 1 mg PO QAM Qty: 30 0RF gabapentin 300 mg capsule 300 mg PO TID cyanocobalamin (vitamin B-12) [Vitamin B-12] 250 mcg tablet 250 mcg PO QAM Referrals Referrals: Michelle Borrego DO [Primary Care Provider] -
--- NOTE | 2023-11-04 22:52 | CT Scan Report ---
Exam(s): CT HEAD Without Contrast EXAM: CT Head Without Intravenous Contrast CLINICAL HISTORY: Reason for exam: ams etoh possible seizure. TECHNIQUE: Axial computed tomography images of the head/brain without intravenous contrast. CTDI is 60.92 mGy and DLP is 961.59 mGy-cm. Automated exposure control was utilized for the study. A dose lowering technique was utilized adhering to the principles of ALARA. COMPARISON: Prior head CT from November 20, 2022. FINDINGS: Brain: Unremarkable. No hemorrhage. No significant white matter disease. No edema. Ventricles: Unremarkable. No ventriculomegaly. Bones/joints: Unremarkable. No acute fracture. Soft tissues: Unremarkable. Sinuses: Unremarkable as visualized. No acute sinusitis. Mastoid air cells: Unremarkable as visualized. No mastoid effusion. IMPRESSION: No evidence of acute intracranial pathology. Electronically signed by: Megan Villanueva MD 11/04/23 22:51 PM
[2023-11-04 23:20] LABS: Magnesium 1.5 mg/dl (1.7-2.4)
[2023-11-04] MEDS: MAGNESIUM SULFATE / D5W 1 GM/100 ML BAG IV STA (23:39)
[2023-11-05] MEDS: POTASSIUM CHLORIDE 10 MEQ TABCR PO STA (00:43)
[2023-11-05] MEDS: MAGNESIUM SULFATE / D5W 1 GM/100 ML BAG IV ONE (01:33)
--- NOTE | 2023-11-05 01:33 | History & Physical Report ---
Date of Service November 05, 2023 Assessment & Plan (1) Alcohol withdrawal: Plan: 48-year-old male with past medical history significant for pancreatic cyst, secondary esophageal varices without bleeding, alcoholic cirrhosis of liver with ascites, chronic cholecystitis, macrocytic anemia, coagulopathy, history of alcohol withdrawal seizures presents with alcoholism and request for detox. Patient states he is drinking a pint of tequila daily. Somewhat shaky. Denies abdominal pain. Normal bowel and bladder movements. Thinks he has mild burning micturition. No fevers. No chest pain or shortness of breath. No headache. No runny nose ,no sore throat. No cough. Hemodynamics are okay. Alcohol withdrawal History of alcohol withdrawal seizures Will do alcohol withdrawal protocol with Librium and IV Ativan as needed IV banana bag Continue home thiamine and folic acid Close monitor Alcoholic liver cirrhosis Esophageal varices History of ascites Will continue home nadolol, Lasix and spironolactone and Protonix Low-salt diet Thrombocytopenia Platelets 116 Will follow labs Anxiety And buspirone and citalopram Chronic cholecystitis On ursodiol Hypokalemia and hypomagnesia Will replace Continue home potassium and magnesium supplements Follow repeat labs History of vitamin D deficiency Will follow labs History of prolonged QTc Will follow-up EKG. urinary symptoms will follow UA DVT prophylaxis Lovenox Follow platelets Disposition Telemetry Full code. History of Present Illness Chief Complaint: Alcohol withdrawal Primary Care Provider: Michelle Borrego DO 48-year-old male with past medical history significant for pancreatic cyst, secondary esophageal varices without bleeding, alcoholic cirrhosis of liver with ascites, chronic cholecystitis, macrocytic anemia, coagulopathy, history of alcohol withdrawal seizures presents with alcoholism and request for detox. Patient states he is drinking a pint of tequila daily. Somewhat shaky. Denies abdominal pain. Normal bowel and bladder movements. Thinks he has mild burning micturition. No fevers. No chest pain or shortness of breath. No headache. No runny nose ,no sore throat. No cough. Hemodynamics are okay. Past medical history. As mentioned above Past surgical history. EGD. ERCP with stone removal. Tonsillectomy. Social history. She used tobacco. Drinking tequila 1 pint daily. No drug use. Family history. Mother had asthma, diabetes and stroke. Father had prostate cancer, stroke Allergies Allergy/AdvReac Type Severity Reaction Status Date / Time aspirin AdvReac Intermediate PT STATES Verified 11/04/23 21:57 "HAPPENED A CHILD--BLOODY NOSE" Home Medications Medication Instructions Recorded Confirmed Type buspirone 5 mg tablet 5 mg PO BID 06/10/18 11/04/23 History nadolol 20 mg tablet 20 mg PO QAM 06/10/18 11/04/23 History ursodiol 300 mg capsule 300 mg PO BID 06/10/18 11/04/23 History zolpidem 5 mg tablet (Ambien) 5 mg PO HS PRN Sleep 06/10/18 11/04/23 History furosemide 20 mg tablet 20 mg PO QAM 11/14/22 11/04/23 History spironolactone 25 mg tablet 25 mg PO QAM 11/14/22 11/04/23 History citalopram 10 mg tablet 10 mg PO QAM 04/09/23 11/04/23 History folic acid 1 mg tablet 1 mg PO QAM #30 tabs 06/06/23 11/04/23 Rx thiamine HCl (vitamin B1) 100 mg 100 mg PO QAM #30 tabs 06/06/23 11/04/23 Rx tablet cyanocobalamin (vitamin B-12) 250 250 mcg PO QAM 07/03/23 11/04/23 History mcg tablet (Vitamin B-12) gabapentin 300 mg capsule 300 mg PO TID 07/03/23 11/04/23 History pantoprazole 40 mg tablet,delayed 40 mg PO QAM 08/01/23 11/04/23 History release loperamide 2 mg capsule 2 mg PO Q4H PRN loose stool #30 08/27/23 11/04/23 Rx caps magnesium chloride 64 mg 64 mg PO BID #60 tabs 08/27/23 11/04/23 Rx (magnesium chloride) tablet,delayed release (Mag 64) potassium chloride 20 mEq 20 meq PO QAM #30 tabs 08/27/23 11/04/23 Rx tablet,extended release(part/cryst) calcium carbonate 500 mg-vitamin 1 tab PO BID 11/04/23 11/04/23 History D3 5 mcg (200 unit) tablet (Oyster Shell Calcium-Vitamin D3) ergocalciferol (vitamin D2) 1,250 1,250 mcg PO WK 08/06/24 08/06/24 History mcg (50,000 unit) capsule Past Med/Surg History Problem List (Updated 11/04/23 @ 23:26 by Padilla Downs MD) Alcohol abuse (Acute) Prolonged QT interval (Acute) Alcoholic cirrhosis Acute hypokalemia (Acute) Nausea & vomiting (Acute) Thrombocytopenia (Acute) Transaminitis (Acute) Hypomagnesemia (Acute) Alcohol withdrawal (Acute) Alcoholic hepatitis (Acute) Alcohol withdrawal (Acute) Esophageal varices Transaminitis (Acute) Medical History Cholecystitis Choledocholithiasis Depression Anxiety UGIB (upper gastrointestinal bleed) Thrombocytopenia Ascites Alcohol abuse Alcoholic cirrhosis of liver Esophageal varices Portal hypertension History of macrocytic anemia History of alcohol abuse Surgical History History of esophagogastroduodenoscopy (EGD) Including procedures for esophageal varices banding History of tonsillectomy Family History Mother Diabetes Father Prostate cancer Other No family history of adverse response to anesthesia Social History Smoking Status: Never smoker Tobacco Type: Smokeless Tobacco (Dip or Chew) Second Hand Exposure: No; Do You Dip or Chew Tobacco: Yes; Hx Alcohol Use: Yes Alcohol type: hard liquor Hx Substance Use: No Preferred Language: Georgian Communication Ability: Effective Drapery Cutter Required: No Beliefs That Will Affect Care: None Current Living Situation: Alone Current Living Situation Comment: lives with parents Feels Safe at Home: Yes Assistive Devices: None Review of Systems Review of Systems: All systems reviewed & are unremarkable except as noted in HPI & below Physical Exam Physical Exam: General- Not in distress Head- atraumatic Eyes- PERRL. ENT- oropharynx clear Neck- supple, no JVD. Lungs- clear to auscultation no wheezing or crackles. Heart- regular rhythm; no murmur, no gallop. Abdomen- normal bowel sounds, soft, nontender, no distension Neuro- alert, oriented PERRL, no facial palsy; no dysarthria; moves extremities Results & Data Results & Data Vital Signs (Past 12 Hours) Vital Signs Temp Pulse Resp BP Pulse Ox O2 Del Method O2 Flow Rate 11/05/23 00:15 87 11/04/23 23:32 88 L Room Air 11/04/23 23:30 82 20 94 Nasal Cannula 2 11/04/23 23:30 123/83 11/04/23 23:03 80 16 88 L 11/04/23 23:00 138/84 11/04/23 23:00 138/84 11/04/23 23:00 138/84 11/04/23 22:57 77 20 90 11/04/23 22:39 74 16 92 11/04/23 22:15 77 15 95 11/04/23 22:00 129/86 11/04/23 21:57 74 16 96 11/04/23 21:30 143/85 H 11/04/23 21:30 143/85 H 11/04/23 21:30 78 22 96 11/04/23 21:00 119/71 11/04/23 21:00 119/71 11/04/23 21:00 65 16 93 11/04/23 20:30 138/86 11/04/23 20:30 77 13 92 11/04/23 20:23 90 15 96 Room Air 11/04/23 20:20 140/89 11/04/23 20:20 140/89 11/04/23 20:15 85 11/04/23 20:13 148/99 H 11/04/23 20:13 148/99 H 11/04/23 20:13 148/99 H 11/04/23 20:03 36.6 C 104 H 20 157/100 H 93 Room Air Diagnostic Findings Laboratory Results WBC 5.06 K/ul (4.8-10.8) 11/04/23 20:17 RBC 5.07 M/uL (4.70-6.10) 11/04/23 20:17 Hgb 17.2 g/dl (14.0-18.0) 11/04/23 20:17 Hct 50.6 % (42.0-52.0) 11/04/23 20:17 MCV 99.8 fL (80.0-100.0) 11/04/23 20:17 MCH 33.9 pg (25.0-34.0) 11/04/23 20:17 MCHC 34.0 g/dL (32.0-36.0) 11/04/23 20:17 RDW Std Deviation 49.2 fL (36.4-46.3) H 11/04/23 20:17 RDW Coeff of Hang 13.3 % (11.5-14.5) 11/04/23 20:17 Plt Count 116 K/uL (130-400) L 11/04/23 20:17 MPV 10.2 fL (9.4-12.4) 11/04/23 20:17 Immature Gran % (Auto) 0.6 % 11/04/23 20:17 Neut % (Auto) 58.6 % 11/04/23 20:17 Lymph % (Auto) 29.1 % 11/04/23 20:17 Carson % (Auto) 7.1 % 11/04/23 20:17 Eos % (Auto) 3.2 % 11/04/23 20:17 Baso % (Auto) 1.4 % 11/04/23 20:17 Neut # (Auto) 2.97 K/uL (1.40-6.50) 11/04/23 20:17 Lymph # (Auto) 1.47 K/uL (1.20-3.40) 11/04/23 20:17 Carson # (Auto) 0.36 K/uL (0.11-0.59) 11/04/23 20:17 Eos # (Auto) 0.16 K/uL (0.00-0.50) 11/04/23 20:17 Baso # (Auto) 0.07 K/uL (0.00-0.20) 11/04/23 20:17 Immature Gran # (Auto) 0.03 K/uL (0.01-0.20) 11/04/23 20:17 PT 12.4 Seconds (9.0-12.0) H 11/04/23 20:17 INR 1.2 (0.9-1.1) H 11/04/23 20:17 APTT 29 Seconds (21-31) 11/04/23 20:17 PTT Ratio 1.1 11/04/23 20:17 Sodium 144 mmol/L (136-145) 11/04/23 20:17 Potassium 3.2 mmol/L (3.5-5.1) L 11/04/23 20:17 Chloride 103 mmol/L (98-107) 11/04/23 20:17 Carbon Dioxide 22 mmol/L (21-32) 11/04/23 20:17 Anion Gap 19 (3-11) H 11/04/23 20:17 BUN 11 mg/dl (6-23) 11/04/23 20:17 Creatinine 0.80 mg/dl (0.6-1.4) 11/04/23 20:17 Est Cr Clr Drug Dosing 114.1 ml/min 11/04/23 20:17 Est GFR ( Amer) 120.7 ml/min 11/04/23 20:17 Est GFR (Non-Af Amer) 104.2 ml/min 11/04/23 20:17 BUN/Creatinine Ratio 13.8 (10-20) 11/04/23 20:17 Glucose 119 mg/dl (70-99(Fasting)) H 11/04/23 20:17 Calcium 8.3 mg/dl (8.6-10.3) L 11/04/23 20:17 Magnesium 1.5 mg/dl (1.7-2.4) L 11/04/23 20:17 Lipase 75 U/L (11-82) 11/04/23 20:17 Ethyl Alcohol mg/dL 375.7 mg/dl (<10.0) H 11/04/23 20:[address] 11/04/23 20:24 Exam(s): CT HEAD Without Contrast EXAM: CT Head Without Intravenous Contrast CLINICAL HISTORY: Reason for exam: ams etoh possible seizure. TECHNIQUE: Axial computed tomography images of the head/brain without intravenous contrast. CTDI is 60.92 mGy and DLP is 961.59 mGy-cm. Automated exposure control was utilized for the study. A dose lowering technique was utilized adhering to the principles of ALARA. COMPARISON: Prior head CT from November 20, 2022. FINDINGS: Brain: Unremarkable. No hemorrhage. No significant white matter disease. No edema. Ventricles: Unremarkable. No ventriculomegaly. Bones/joints: Unremarkable. No acute fracture. Soft tissues: Unremarkable. Sinuses: Unremarkable as visualized. No acute sinusitis. Mastoid air cells: Unremarkable as visualized. No mastoid effusion. IMPRESSION: No evidence of acute intracranial pathology. Electronically signed by: Megan Villanueva MD 11/04/23 22:51 PM Code Status & VTE Plan VTE Prophylaxis Plan VTE Prophylaxis will be ordered: Yes
[2023-11-05] MEDS ORDERED: NITROGLYCERIN SL 0.4 MG/TAB TAB SL PRN (01:52)
[2023-11-05] MEDS ORDERED: chlordiazePOXIDE ALCOHOL WITHDRAWL 25MG PO STA (01:52)
[2023-11-05] MEDS ORDERED: Ativan IV Alcohol Withdrawal--Active Protocol IV PRN (01:52)
[2023-11-05] MEDS ORDERED: LORazepam 3 MG in SYRINGE 1.5 ML IV PRN (01:52)
--- OUTSIDE RECORDS SUMMARY | 2023-11-05 02:12 | External Medical Summary | Summary of Care ---
Author Name Unknown Organization [facility] Address [address] [place] [address] Phone [phone] Care Team Providers Care Steam Conditioning Operator Name Role Phone Michelle Borrego Primary Care Provider [phone] Reason for Visit * Reason Comments Hospital Follow-Up [facility]; pt c/o legs st ill feel wobbly. Encounter Details Date Type Department Care Team (Late st Contact Info) Description 09/04/2023 9:00 AM EDT Office Visit Family Medicine [address] [phone] Allan Lepe MD [address] [place] [address] [place] [address] Alcoholic cirrhosis of liver with ascites (HCC)*; Alcohol use disorder Allergies Active Allergy Reactions Criticality Noted Date Comments Aspirin Other (Please comment) 02/12/2016 Reports having a bloody nose. documented as of this encounter (statuses as of 09/04/2023) Medications Medication Sig Dispensed Refills Start Date [...] the morning. 90 Tablet 3 04/07/2023 Active busPIRone HCl 5 MG Oral Tablet (Buspar) Take 1 Tablet by mouth in the morning and 1 Tablet before bedtime. 180 Tablet 3 04/07/2023 Active Nadolol 20 MG Oral Tablet (Corgard) Take 1 Tablet by mouth in the morning. 90 Tablet 3 04/07/2023 Active Thiamine HCl 100 MG Oral Tablet [...] the morning. 90 Tablet 1 07/03/2023 Active Furosemide 20 MG Oral Tablet (Lasix) Take 1 Tablet by mouth in the morning. In the morning.. Active Zolpidem Tartrate 5 MG Oral Tablet (Ambien)Indication s:History of alcohol abuse,Persistent insomnia Take 1 Tablet by mouth at bedtime as needed for Sleep. 30 Tablet 08/28/2023 Active Potassium Chloride Yamini ER 20 MEQ Oral Tablet Extended Release Take 1 Tablet by mouth in the morning. In the morning.. 08/27/2023 Active Mag64 64 MG Oral Tablet Delayed Release Take 1 Tablet by mouth in the morning and 1 Tablet before bedtime. 08/27/2023 Active Loperamide HCl 2 MG Oral Capsule (Imodium) TAKE ONE CAPSULE BY MOUTH EVERY 4 HOURS NEEDED FOR LOOSE STOOL 08/27/2023 Active Vitamin D (Ergocalciferol) 1.25 MG (48098 UT) Oral Capsule (Drisdol) TAKE ONE CAPSULE BY MOUTH EVERY FRIDAY MORNING AT 9AM 08/27/2023 Active Citalopram Hydrobromide 10 MG Oral Tablet (CeleXA) Take 1 Tablet by mouth in the morning. In the morning.. Active Oyster Shell Calcium w/D 500-5 MG-MCG Oral Tablet Take 1 Tablet by mouth in the morning and 1 Tablet before bedtime. 08/27/2023 Active Potassium Chloride ER 10 MEQ Oral Tablet Extended Release Take 1 Tablet by mouth in the morning. In the morning.. 90 Tablet 3 04/07/2023 09/04/2023 Discontinue d(Medicatio n/Dose Changed) Ciprofloxacin HCl 500 MG Oral Tablet (Cipro) Take 1 Tablet by mouth in the morning and 1 Tablet before bedtime. 04/20/2023 05/01/2023 Discontinue d(End of Procedure) documented as of this encounter (statuses as of 09/04/2023) Active Problems Problem Noted Date Diagnosed Date [...] as of this encounter (statuses as of 09/04/2023) Resolved Problems Problem Noted Date Diagnosed Date [...] as of this encounter (statuses as of 09/04/2023) Immunizations Name Administration Dates Next Due COVID-19 mRNA, LNP-s, No Pre serve, 2-Dose Series (Moderna) 07/26/2020,06/13/2020 COVID-19, MRNA-LNP, 23-24, P F, 30 MCG/0.3 mL, 12 YRS AND ABOVE, IM ([facility]) 01/15/2023 COVID-19, mRNA, LNP-s, PF, B ooster, [...] Sign Reading Time Taken Comments Blood Pressure 122/70 09/04/2023 8:49 AM EDT Pulse 54 09/04/2023 8:49 AM EDT Temperature 36.1 C (96.9 F) 09/04/2023 8:49 AM ED T Respiratory Rate - - Oxygen Saturation 95% 09/04/2023 8:49 AM EDT Inhaled Oxygen Concentration - - Weight 77.9 kg (171 lb 11.2 oz) 09/04/2023 8:49 AM EDT Height - - Body Mass Index 26.89 08/12/2023 8:27 AM EDT documented in this [...] as of this encounter Progress Notes * Allna Lepe MD - 09/04/2023 8:48 AM EDT Darrel picked up again and was having trouble ambulating and was tremulous so he was admitted to [facility] 08/23 to 08/26 for alcohol withdrawal and electrolyte abnormalities. He will start a job at [employer] 09/07, has tried outpatient rehab. He had an ERCP in March, had stones in the duct removed. He is againasking about naltrexone, but the hospital note says something about that being contraindicated and I am not qualified to make that decision. His regular PCP can manage. Also he was seen by DA counselor and they are going to try to get him involved with [facility]? He is self pay currently. He is still wobbly on his feet. Patient Active Problem List Diagnosis Macrocytic anemia Coagulopathy (HCC) Alcoholic cirrhosis of liver with ascites (HCC) Secondary esophageal varices without bleeding (HCC) Pancreatic cyst Controlled substance agreement signed Pre-transplant evaluation for chronic liver disease Chronic cholecystitis Biliary colic Persistent insomnia Alcohol withdrawal syndrome with complication (HCC) Alcohol use disorder Past Medical History: Diagnosis Date Abdominal pain 05/13/2017 Alcohol abuse 01/18/2016 Alcohol withdrawal (HCC) 12/08/2022 Admitted [facility] 12/08, discharged 12/12 Alcohol withdrawal (HCC) 03/13/2023 [facility], discharged 03/18 Alcohol withdrawal seizure without complication (HCC) 06/07/2016 Alcohol withdrawal syndrome (HCC) 11/20/2022 admitted [facility] with numbness and tingling Chronic cholecystitis Cirrhosis [...] performed by Jamil Bond MD at [facility] EGD, FLEXIBLE, DIAGNOSTIC 06/11/2018 esophageal varices, portal hypertensive gastropathy, repeat 2-4 mo / [facility] EGD, FLEXIBLE, DIAGNOSTIC 05/09/2021 normal / ESOPHAGOGASTRODUODENOSCOPY (EGD), FLEXIBLE, TRANSORAL, DIAGNOSTIC performed by Matt Boyd MD at ENDOSCOPY [facility] REMOVAL OF TONSILS, UNDER AGE 12 Review [...] can every 2 weeks Vaping Use Vaping status: Never Used Substance and Sexual Activity Alcohol use: No [...] mouth in the morning. 90 Tablet 1 Furosemide 20 MG Oral Tablet (Lasix) Take 1 Tablet by mouth in the morning. In the morning.. Zolpidem Tartrate 5 MG Oral Tablet (Ambien) Take 1 Tablet by mouth at bedtime as needed for Sleep. 30 Tablet 0 No current facility-administered medications for this visit. Immunization History Administered Date(s) Administered COVID-19 mRNA, LNP-s, No Preserve, 2-Dose Series (Moderna) 06/13/2020, 07/26/2020 COVID-19, MRNA-LNP, 23-24, PF, 30 MCG/0.3 mL, 12 YRS AND ABOVE, IM [facility] 01/15/2023 COVID-19, mRNA, LNP-s, PF, Booster, 100mcg/0.5mg [...] 12/17/2022 TDAP (age 10 and older)(Boostrix) 11/12/2016 Results for orders placed or performed in visit on 08/12/23 COMPREHENSIVE METABOLIC PANEL Result Value Ref Range BUN 5 (L) 6 - 20 mg/dL Creatinine 0.8 0.6 - 1.2 mg/dL Estimated Glomerular Filtration Rate >90 >=60 mL/min Sodium 143 135 - 146 mmol/L Potassium 3.6 3.5 - 5.1 mmol/L Chloride 104 98 - 107 mmol/L CO2 26 22 - 32 mmol/L Anion Gap 13 7 - 15 mmol/L Glucose 101 70 - 120 mg/dL Albumin 3.8 3.8 - 5.0 g/dL AST 264 (H) 10 - 50 U/L Alkaline Phosphatase 69 35 - 130 U/L Bilirubin, Total 1.2 <=1.2 mg/dL Calcium 8.3 (L) 8.4 - 10.2 mg/dL Protein 7.7 6.0 - 8.3 g/dL ALT 218 (H) 10 - 50 U/L O: Blood pressure 122/70, pulse 54, temperature 36.1 C (96.9 F), weight 77.9 kg (171 lb 11.2 oz), SpO2 95%. He has no tremor. Neck is supple without adenopathy or thyromegaly. Chest is symmetrical and moves normally. The lungs are clear without wheezes, rales, rhonchi or rubs, and the heart is regular without murmurs or gallops, or ectopy. PMI not displaced. He has an unsteady gait A: Alcoholic cirrhosis of liver with ascites (HCC) (Primary) Alcohol use disorder Follow Up: Return if symptoms worsen or fail to improve. documented in this encounter Plan of Treatment Upcoming Encounters Date Type Department Care Team (Late st Contact Info) Description 09/08/2023 3:00 PM EDT Office Visit Gastroenterology, [facility] [address] [place] [address] Anatoliy Meza CRNP [address] [place] [address] 02/03/2024 8:30 AM EST Office Visit Family Medicine [address] [place] [phone] Michelle Borrego[address] [place] [id number] Scheduled Procedures Name Priority Associated Diagnoses Date/Ti [...] ascites (HCC)- Primary Alcoholic cirrhosis of liver Alcohol use disorder documented in this encounter Advance Directives * [...] Power of Attor ricky? No Care Teams Steam Conditioning Operator Relationship Specialty Start Date End Date Michelle Borrego DO [address] [place] [address] [place] [phone] PCP - General Internal Medicine 06/07/16 documented as of this encounter
--- OUTSIDE RECORDS SUMMARY | 2023-11-05 02:12 | External Medical Summary | Summary of Care ---
Author Name Unknown Organization [facility] Address [address] [place] [address] Phone [phone] Care Team Providers Care Offal Roller Name Role Phone Michelle Borrego Primary Care Provider [phone] Encounter Details Date Type Department Care Team (Late st Contact Info) Description 09/09/2023 Orders Only PATIENT PORTAL DO NOT DELETE THIS DEPT USED BY [place] [id number] Allergies Active Allergy Reactions Criticality Noted Date Comments Aspirin Other (Please comment) 02/12/2016 Reports having a bloody nose. documented as of this encounter (statuses as of 09/09/2023) Medications Medication Sig Dispensed Refills Start Date [...] 08/27/2023 Active Vitamin D (Ergocalciferol) 1.25 MG (97153 UT) Oral Capsule (Drisdol) TAKE ONE CAPSULE BY MOUTH EVERY FRIDAY MORNING AT 9AM 08/27/2023 Active Citalopram Hydrobromide 10 MG Oral Tablet (CeleXA) Take 1 Tablet by mouth in the morning. In the morning.. Active Oyster Shell Calcium w/D 500-5 MG-MCG Oral Tablet Take 1 Tablet by mouth in the morning and 1 Tablet before bedtime. 08/27/2023 Active documented as of this encounter (statuses as of 09/09/2023) Active Problems Problem Noted Date Diagnosed Date [...] as of this encounter (statuses as of 09/09/2023) Resolved Problems Problem Noted Date Diagnosed Date [...] as of this encounter (statuses as of 09/09/2023) Immunizations Name Administration Dates Next Due COVID-19 [...] Care Team (Late st Contact Info) Description 02/03/2024 8:30 AM EST Office Visit Family Medicine [address] [place] [phone] [place] [id number] Scheduled Procedures Name Priority Associated Diagnoses Date/Ti [...] filedocumented as of this encounter Advance Directives * Full Code [...] Power of Attor ricky? No Care Teams Offal Roller Relationship Specialty Start Date End Date Michelle Borrego DO [address] [place] [address] [place] [phone] PCP - General Internal Medicine 06/07/16 documented as of this encounter
--- OUTSIDE RECORDS SUMMARY | 2023-11-05 02:12 | External Medical Summary | Summary of Care ---
Author Name Unknown Organization [facility] [address] [facility] [address] Phone [phone] Care Team Providers Care Boot And Saddle Repair Person Name Role Phone Michelle Borrego Primary Care Provider [phone] Reason for Visit * Reason Onset Date Comments Hospital Follow-Up 08/28/2023 Jori for [facility] attempt 1 Encounter Details Date Type Department Care Team (Late st Contact Info) Description 08/28/2023 Telephone Ancillary [place] [address] [place] [id number] Erin Jolley, FELIPE Hospital Follow-Up (Jori for [facility] attempt 1) Allergies Active Allergy Reactions Criticality Noted Date Comments Aspirin Other (Please comment) 02/12/2016 Reports having a bloody nose. documented as of this encounter (statuses as of 08/29/2023) Medications Medication Sig Dispensed Refills Start Date [...] as of this encounter (statuses as of 08/29/2023) Active Problems Problem Noted Date Diagnosed Date [...] as of this encounter (statuses as of 08/29/2023) Resolved Problems Problem Noted Date Diagnosed Date [...] as of this encounter (statuses as of 08/29/2023) Immunizations Name Administration Dates Next Due COVID-19 [...] Telephone Encounter - Erin Jolley RN - 08/29/2023 1:18 PM EDT 2nd attempt made, Left message for the patient to call the office at [phone], since I am out of office. I did leave the information re appointment 09/04/23 at 9am. Jacklyn Dong also aware of appointment. * Telephone Encounter - Erin Jolley RN - 08/28/2023 11:50 AM EDT Transitions of Care Note Reason for Referral:Recent Admission Phone visit for follow up: jori Admitted to: [facility], Date: 08.24.23 Discharged to: home, Date: 08.27.23 Diagnosis driving hospitalization: ongoing visits to the ER for Alcohol withdrawal Generalized weakness Electrolyte abnormalities Left message for the patient to call the office. Erin Jolley RN documented in this encounter Plan of Treatment Upcoming Encounters Date Type Department Care Team (Late st Contact Info) Description 09/04/2023 9:00 AM EDT Office Visit Family Medicine [address] [phone] Allan Lepe MD [address] [place] [address] [place] [phone] 09/08/2023 3:00 PM EDT [facility] [place] [address] [facility] [place] [address] 02/03/2024 8:30 AM EST Office Visit [address] [phone] Michelle Borrego DO [address] [place] [address] [place] [id number] Scheduled Procedures Name Priority Associated Diagnoses Date/Ti [...] Power of Attor ricky? No Care Teams Boot And Saddle Repair Person Relationship Specialty Start Date End Date Michelle Borrego DO [address] [place] [address] [place] [id number] PCP - General Internal Medicine 06/07/16 documented as of this encounter
--- OUTSIDE RECORDS SUMMARY | 2023-11-05 02:12 | External Medical Summary | Summary of Care ---
Author Name Unknown Organization [facility] Address [address] [place] [address] Phone [phone] Care Team Providers Care Guinea Pig Breeder Name Role Phone Michelle Borrego DO Primary Care Provider [phone] Reason for Visit * Reason Onset Date Comments Advice 06/23/2023 Encounter Details Date Type Department Care Team (Late st Contact Info) Description 06/23/2023 Telephone Family Medicine [address] [phone] Michelle Borrego [address] [place] [address] Advice Allergies Active Allergy Reactions Criticality Noted Date Comments Aspirin Other (Please comment) 02/12/2016 Reports having a bloody nose. documented as of this encounter (statuses as of 2023) Medications Medication Sig Dispensed Refills Start Date [...] the morning. In the morning.. 04/14/2023 Active Potassium Chloride ER 10 MEQ Oral Tablet Extended Release Take 1 Tablet by mouth in the morning. In the morning.. 90 Tablet 3 04/07/2023 4 Discontinued(Medi cation/Dose Changed) Ciprofloxacin HCl 500 MG Oral Tablet (Cipro) Take 1 Tablet by mouth in the morning and 1 Tablet before bedtime. 04/20/2023 4 Discontinued(End of Procedure) metroNIDAZOLE 500 MG Oral Tablet (Flagyl) Take 1 Tablet by mouth in the morning and 1 Tablet at noon and 1 Tablet before bedtime. 04/20/2023 4 Discontinued Pantoprazole Sodium 20 MG Oral Tablet Delayed Release (Protonix) Take 2 Tablets by mouth in the morning. 04/21/2023 4 Discontinued Vancomycin HCl 125 MG Oral Capsule (Vancocin) 1 Capsule. 04/14/2023 4 Discontinued Zolpidem Tartrate 5 MG Oral Tablet (Ambien)Indicat ions:History of alcohol abuse,Persisten t insomnia Take 1 Tablet by mouth at bedtime as needed for Sleep. 30 Tablet 06/12/2023 4 Discontinued(Refi ll) documented as of this encounter (statuses as of 2023) Active Problems Problem Noted Date Diagnosed Date [...] as of this encounter (statuses as of 2023) Resolved Problems Problem Noted Date Diagnosed Date [...] as of this encounter (statuses as of 2023) Immunizations Name Administration Dates Next Due COVID-19 [...] have money to get more. Patient declined Childcare Answer Date Recorded Do you feel overwhelmed with taking care of a child, family member or friend? No 08/11/2023 Does your family need help f inding childcare? (Household - for ages 0-17 years) Not on file 08/11/2023 Clothing Answer Date Recorded Have you been unable to get clothing when it was really needed? No 08/11/2023 Is your family able to get c lothes or diapers when needed? (Household - for ages 0-17 years) Not on file 08/11/2023 Personal Safety Answer Date Recorded Do you feel unsafe or have concerns for your saf ety? No 08/11/2023 Do you have concerns for you r family's safety? (Household - for ages 0-17 years) Not on file 08/11/2023 Utilities Answer Date Recorded Do you have trouble paying y our heating, water, or electric bill? No 08/11/2023 Is your family able to pay t he heat, water, or electric bill? (Household - for ages 0-17 years) Not on file 08/11/2023 Does your family have access to good internet? (Household - for ages 0-17 years) Not on file 08/11/2023 Employment Status Answer Date Recorded Are you unemployed or without regular income? Ye s 08/11/2023 Does the household have a re gular source of income? (Household - for ages 0-17 years) Not on file 08/11/2023 Social Connections Answer Date Recorded How often do you feel lonely or isolated from th ose around you? Never 08/11/2023 Financial Resource Strain Answer Date R ecorded Do you have any trouble payi ng for your medications, or do you think you might in the future? Yes 08/11/2023 Does your family have troubl e paying for medicine? (Household - for ages 0-17 years) Not on file 08/11/2023 Transportation Needs Answer Date Record ed READ ONLY Do you have troubl e getting a ride to medical visits or work? Never True 08/11/2023 Does your family have a hard time getting a ride to doctors visits? (Household - for ages 0-17 years) Not on file 08/11/2023 Has lack of transportation k ept you from medical appointments, meetings, work, or from getting things needed for daily living? Check all that apply. (Adult - for ages 18 years and over) Not on file 08/11/2023 Do you (or your family) have trouble finding or paying for a ride (transportation)? (Household - for ages 0-17 years) Not on file 08/11/2023 Housing Stability Answer Date Recorded Do you currently live in a s helter or have no steady place to sleep at night? No 08/11/2023 READ ONLY Do you think you a re at risk of becoming homeless? No 08/11/2023 Does your family worry about paying for your home or becoming homeless? (Household - for ages 0-17 years) Not on file 0 08/11/2023 Are you homeless or worried that you might be in the future? (Adult - for ages 18 years and over) Not on file Are you (or your family) izabela eless or worried that you might be in the future? (Household - for ages 0-17 years) Not on file Food Insecurity Answer Date Recorded Do you need food for this week? No 08/11/2023 Are you able to get enough f ood for your family? (Household - for ages 0-17 years) Not on file 08/11/2023 Does your family need food t his week? (Household - for ages 0-17 years) Not on file 08/11/2023 Do you always have enough fo od for your family? (Household - for ages 0-17 years) Not on file 08/11/2023 Sex and Gender Information Value Date Recorded [...] Telephone Encounter - Daniela Cox LPN - 07/01/2023 3:06 PM EDT Left message for Lauren to return my call. When she calls back, please see Dr. Borrego's message below. * Telephone Encounter - Michelle Borrego DO - 07/01/2023 11:48 AM EDT Notify that we discussed at his visit and he declined. * Telephone Encounter - Daniela Cox LPN - 06/26/2023 9:52 AM EDT I see you discussed withdrawal, and rehab/detox and he declined. I'm not sure if we can really callthis person back without a release? * Telephone Encounter - Yolie Lamb OSA - 06/23/2023 10:59 AM EDT [facility] Callback number: [phone] Reason for call: Director Camp wanting to inquiring if discussion was has with patient regardingrehab/detox. Note that patient has HD f/u scheduled for tomorrow 06/24/23. Lauren is requesting a call back after patient's appt tomorrow to discuss further. documented in this encounter Plan of Treatment Upcoming Encounters Date Type Department Care Team (Late st Contact Info) Description 02/03/2024 8:30 AM EST Office Visit Family Medicine [address] [place] [address] [address] [place] [phone] Scheduled Procedures Name Priority Associated Diagnoses Date/Ti [...] Power of Attor ricky? No Care Teams Guinea Pig Breeder Relationship Specialty Start Date End Date Michelle Borrego DO [address] [place] [address] [place] [phone] PCP - General Internal Medicine 06/07/16 documented as of this encounter
--- OUTSIDE RECORDS SUMMARY | 2023-11-05 02:12 | External Medical Summary | Summary of Care ---
Author Name Unknown Organization [facility] Address [address] [facility] [place] [address] Phone [phone] Care Team Providers Care Ear Nose And Throat Specialist Name Role Phone Michelle Borrego Primary Care Provider [phone] Reason for Visit * Reason Onset Date Comments Medication Refill 09/06/2023 Encounter Details Date Type Department Care Team (Late st Contact Info) Description 09/06/2023 Refill Family Medicine [address] [place] [address] Edwin Nair MD [address] [place] [address] [place] [phone] History of alcohol abuse; Persistent insomnia Allergies Active Allergy Reactions Criticality Noted Date Comments Aspirin Other (Please comment) 02/12/2016 Reports having a bloody nose. documented as of this encounter (statuses as of 09/08/2023) Medications Medication Sig Dispensed Refills Start Date [...] 08/27/2023 Active Vitamin D (Ergocalciferol) 1.25 MG (43927 UT) Oral Capsule (Drisdol) TAKE ONE CAPSULE [...] as of this encounter (statuses as of 09/08/2023) Active Problems Problem Noted Date Diagnosed Date [...] as of this encounter (statuses as of 09/08/2023) Resolved Problems Problem Noted Date Diagnosed Date [...] as of this encounter (statuses as of 09/08/2023) Immunizations Name Administration Dates Next Due COVID-19 [...] encounter Miscellaneous Notes * Telephone Encounter - Ashley Collins RPh - 09/08/2023 9:23 AM EDTRefused Prescriptions: Disp Refills Zolpidem Tartrate 5 MG Oral Tablet (Ambien)30 Tab*0 Sig: Take 1Tablet by mouth at bedtime as needed for Sleep.Refused By: ALESSIO COLLINSeason for Refusal: Too soon documented in this encounter Plan of Treatment Upcoming Encounters Date Type Department Care Team (Late st Contact Info) Description 09/08/2023 3:00 PM EDT Office Visit Gastroenterology, [facility] [address] [place] [address] Anatoliy Meza CRNP [address] [place] [address] 02/03/2024 8:30 AM EST Office Visit Family Medicine [address] [place] [phone] Michelle Borreg[address] [place] [phone] Scheduled Procedures Name Priority Associated Diagnoses Date/Ti [...] sleep documented in this encounter Advance Directives * [...] Power of Attor ricky? No Care Teams Ear Nose And Throat Specialist Relationship Specialty Start Date End Date Michelle Borrego DO [address] [place] [address] [place] [id number] PCP - General Internal Medicine 06/07/16 documented as of this encounter
--- OUTSIDE RECORDS SUMMARY | 2023-11-05 02:13 | External Medical Summary | Summary of Care ---
Author Name Unknown Organization [facility] Address [address] [place] [address] Phone [phone] Care Team Providers Care Mind Reader Name Role Phone Michelle Borrego DO Primary Care Provider [phone] Reason for Visit * Reason Onset Date Comments Medication Refill 08/28/2023 Encounter Details Date Type Department Care Team (Late st Contact Info) Description 08/28/2023 Refill Family Medicine [address] [address] Michelle Borrego DO [address] [place] [address] [place] [phone] History of alcohol abuse; Persistent insomnia Allergies Active Allergy Reactions Criticality Noted Date Comments Aspirin Other (Please comment) 02/12/2016 Reports having a bloody nose. documented as of this encounter (statuses as of 08/28/2023) Medications Medication Sig Dispensed Refills Start Date [...] needed for Sleep. 30 Tablet 08/28/2023 Active Zolpidem Tartrate 5 MG Oral Tablet (Ambien)Indicatio ns:History of alcohol abuse,Persistent insomnia Take 1 Tablet by mouth at bedtime as needed for Sleep. 30 Tablet 07/28/2023 08/28/2023 Discontinued (Refill) documented as of this encounter (statuses as of 08/28/2023) Active Problems Problem Noted Date Diagnosed Date [...] as of this encounter (statuses as of 08/28/2023) Resolved Problems Problem Noted Date Diagnosed Date [...] as of this encounter (statuses as of 08/28/2023) Immunizations Name Administration Dates Next Due COVID-19 [...] encounter Miscellaneous Notes * Telephone Encounter - Johanna Nair MD - 08/28/2023 3:47 PM EDT Signed Prescriptions: Disp Refills Zolpidem Tartrate 5 MG Oral Tablet (Ambien)30 Tab*0 Sig: Take 1 Tablet by mouth at bedtime as needed for Sleep.Authorizing Provider: JOHANNA NAIR-------- * Telephone Encounter - Dequan Brooke LPN - 08/28/2023 9:49 AM EDTPending Prescriptions: Disp Refills Zolpidem Tartrate 5 MG Oral Tablet (Ambien)30 Tab*0 Sig: Take 1 Tablet by mouth at bedtime as needed for Sleep. * Telephone Encounter - Dequan Brooke LPN - 08/28/2023 9:48 AM EDT Pending Prescriptions: Disp Refills Zolpidem Tartrate 5 MG Oral Tablet (Ambie*30 Tab*0 Sig: Take 1 Tablet by mouth at bedtime as needed for Sleep. Last Visit: 08/12/2023 (in office), Visit date not found (telemedicine) Next Visit: 09/04/2023 Last date the medication was ordered: 07/25/2023 Patient Active Problem List Diagnosis Macrocytic anemia Coagulopathy (HCC) Alcoholic cirrhosis of liver with ascites (HCC) Secondary esophageal varices without bleeding (HCC) Pancreatic cyst Controlled substance agreement signed Pre-transplant evaluation for chronic liver disease Chronic cholecystitis Biliary colic Persistent insomnia Alcohol withdrawal syndrome with complication (HCC) Alcohol use disorder Labs: Lab Results Component Value Date/Time CREAT GFR 0.96 04/30/2016 01:58 PM CREATININE - [facility] 0.8 08/12/2023 09:19 AM CREATININE - [facility] 1.2 12/13/2019 04:22 PM CREATININE, RANDOM URINE - [facility] 205 07/11/2016 10:57 AM CREATININE-OUTSIDE LAB 1.01 06/19/2017 12:00 AM Lab Results Component Value Date/Time POTASSIUM - [facility] 3.6 08/12/2023 09:19 AM POTASSIUM - [facility] 4.4 12/13/2019 04:22 PM POTASSIUM-OUTSIDE LAB 3.7 06/19/2017 12:00 AM Lab Results Component Value Date/Time TSH - [facility] 2.14 12/16/2016 08:17 AM Lab Results Component Value Date/Time LDL CHOLESTEROL (CALCULATED) - [facility] 97 02/11/2023 01:50 PM LDL CHOLESTEROL (CALCULATED) - [facility] 80 12/02/2018 03:14 PM LDL CHOLESTEROL (CALCULATED) - [facility] 162 (H) 12/16/2016 08:17 AM LDL CHOLESTEROL (DIRECT MEASURE) - [facility] 74 03/08/2022 03:35 PM LDL CHOLESTEROL (DIRECT MEASURE) - [facility] NOT APPLICABLE 12/02/2018 03:14 PM LDL CHOLESTEROL (DIRECT MEASURE) - [facility] NOT APPLICABLE 06/07/2016 09:12 AM Lab Results Component Value Date/Time ALT - [facility] 218 (H) 08/12/2023 09:19 AM ALT - [facility] 29 12/13/2019 04:22 PM Hemoglobin AIC Results: Lab Results Component Value Date/Time HEMOGLOBIN A1C - [facility] 5.6 08/14/2017 02:54 PM HEMOGLOBIN A1C - [facility] 4.4 12/16/2016 08:17 AM HEMOGLOBIN A1C - [facility] 4.6 06/07/2016 09:18 AM * Telephone Encounter - Fernanda Rice OSA - 08/28/2023 9:13 AM EDT Did you pend patient's preferred pharmacy and medication before forwarding?yes Pharmacy: [facility], [address] [place] Pending Prescriptions: Disp Refills Zolpidem Tartrate 5 MG Oral Tablet (Ambie*30 Tab*0 Sig: Take 1 Tablet by mouth at bedtime as needed for Sleep. Last Visit: 08/12/2023 (in office), Visit date not found (telemedicine) Next Visit: 09/04/2023 If no future appointments scheduled, and last appointment is greater than a year ago, please schedule patient for a follow-up appointment Last date the medication was ordered: 07.28.23 Is this request for a controlled substance?Yes, What was the last refill date 07.28.23 w/ quantity 30 and dosage 5mg and Urine Drug Screen Not completed Urine Drug Screen: Results for orders [...] UPON REQUEST. C[employer]ATION Patient Phone Numbers [facility] [phone] Labs: Lab Results Component Value Date/Time CREAT 0.8 08/12/2023 09:19 AM CREAT 1.2 12/13/2019 04:22 PM POTASSIUM 3.6 08/12/2023 09:19 AM POTASSIUM 4.4 12/13/2019 04:22 PM TSH 2.14 12/16/2016 08:17 AM LDLCALC 97 02/11/2023 01:50 PM LDLCALC 80 12/02/2018 03:14 PM LDLDIRECT 74 03/08/2022 03:35 PM LDLDIRECT NOT APPLICABLE 12/02/2018 03:14 PM ALT 218 (H) 08/12/2023 09:19 AM ALT 29 12/13/2019 04:22 PM HGBA1C 5.6 08/14/2017 02:54 PM documented in this encounter Plan of Treatment Upcoming Encounters Date Type Department Care Team (Late st Contact Info) Description 09/04/2023 9:00 AM EDT Office Visit [address] [phone] Allan Lepe MD [address] [place] [address] [place] [phone] 09/08/2023 3:00 PM EDT Office Visit Gastroenterology, [facility] [address] [place] [address] Anatoliy Meza CRNP [address] [place] [address] 02/03/2024 8:30 AM EST Office Visit [address] [phone] Michelle Borrego DO [address] [place] [address] [place] [phone] Scheduled Procedures Name Priority Associated Diagnoses Date/Ti [...] Power of Attor ricky? No Care Teams Mind Reader Relationship Specialty Start Date End Date Michelle Borrego DO [address] [place] [address] [place] [phone] PCP - General Internal Medicine 06/07/16 documented as of this encounter
[2023-11-05] MEDS: MULTI-VITAMIN INFUSION 10 ML, THIAMINE HCL 100 MG, FOLIC ACID 1 MG in SODIUM CHLORIDE 0... IV ONE (02:21)
[2023-11-05] MEDS: chlordiazePOXIDE HCl 25 MG CAP PO SCH (02:26)
[2023-11-05] MEDS: SODIUM CHLORIDE 0.9% 1,000 ML IV SCH (04:27)
[2023-11-05] MEDS: ENOXAPARIN INJ 40 MG/0.4 ML SYR SQ SCH (04:27)
[2023-11-05] MEDS: PROMETHAZINE HCL 12.5 MG in SODIUM CHLORIDE 0.9% 50 ML IV PRN (05:36)
[2023-11-05 07:41] LABS: Albumin Globulin Ratio 0.9 (0.9-2); Albumin Level 3.1 gm/dl (3.4-5.0); BUN Creatinine Ratio 15.1 (10-20); Bilirubin,Total 0.9 mg/dl (0.2-1.0); Calcium 6.6 mg/dl (8.6-10.3); Creatinine Clr Calc Pharmacy 161.3 ml/min; Est GFR (Non-African American) 123.4 ml/min; Globulin 3.6 gm/dl (2.5-4.0); Phosphorus 1.9 mg/dl (2.5-4.9); Potassium 3.1 mmol/L (3.5-5.1); Total Protein 6.7 gm/dl (6.0-8.3)
--- NOTE | 2023-11-05 08:00 | Hospitalist Progress Note ---
Date of Service November 05, 2023 Assessment & Plan (1) Alcohol withdrawal: Plan Pt is a 48-year-old male with past medical history significant for pancreatic cyst, secondary esophageal varices without bleeding, alcoholic cirrhosis of liver with ascites, chronic cholecystitis, macrocytic anemia, coagulopathy, history of alcohol withdrawal seizures who presents with alcoholism and request for detox. Patient states he is drinking a pint of tequila daily. Alcohol withdrawal History of alcohol withdrawal seizures alcohol withdrawal protocol with Librium and IV Ativan as needed IV banana bag Continue home thiamine and folic acid Closely monitor Alcoholic liver cirrhosis Esophageal varices History of ascites Continue home nadolol, Lasix and spironolactone and Protonix Low-salt diet Thrombocytopenia Platelets 116 on admission Continue to monitor Anxiety Continue buspirone and citalopram Chronic cholecystitis On ursodiol Hypokalemia hypomagnesia Continue home potassium and magnesium supplements replete additionally as needed History of prolonged QTc serial EKGs Continue to follow urinary symptoms UA unremarkable Diet: low sodium DVT prophylaxis: Lovenox Dispo: TBD once medically stable Admission and Anticipated Discharge Date Admission Date: November 05, 2023 Subjective pt seen in the AM. States feeling anxious. Denies acute concerns otherwise. Review of Systems Review of Systems: All systems reviewed & are unremarkable except as noted in Subjective Physical Exam Physical Exam: General: Alert, oriented. No acute distress Skin: No noted rashes or bruises Psych: Appropriate mood and affect Neuro: tremors noted in hands outstretched HEENT: NC/AT CV: RRR Resp: Breath sounds clear bilaterally, no increased effort of breathing Abdomen: distended Extremities: No edema in lower extremities bilaterally. Results & Data Results & Data Vital Signs (Past 12 Hours) Vital Signs Temp Pulse Pulse Resp BP BP Pulse Ox 11/05/23 07:34 60 11/05/23 07:04 37.2 C 69 18 131/76 95 11/05/23 02:15 79 11/05/23 02:15 36.9 C 71 18 150/85 H 96 11/05/23 01:00 137/87 11/05/23 01:00 69 15 11/05/23 00:33 77 17 97 11/05/23 00:30 137/88 11/05/23 00:30 137/88 11/05/23 00:27 74 16 96 11/05/23 00:15 87 11/05/23 00:00 69 16 96 11/05/23 00:00 139/88 11/05/23 00:00 139/88 11/04/23 23:32 88 L 11/04/23 23:30 82 20 94 11/04/23 23:30 123/83 11/04/23 23:03 80 16 88 L 11/04/23 23:00 138/84 11/04/23 23:00 138/84 11/04/23 23:00 138/84 11/04/23 22:57 77 20 90 11/04/23 22:39 74 16 92 11/04/23 22:15 77 15 95 11/04/23 22:00 129/86 11/04/23 21:57 74 16 96 11/04/23 21:30 143/85 H 11/04/23 21:30 143/85 H 11/04/23 21:30 78 22 96 11/04/23 21:00 119/71 11/04/23 21:00 119/71 11/04/23 21:00 65 16 93 11/04/23 20:30 138/86 11/04/23 20:30 77 13 92 11/04/23 20:23 90 15 96 11/04/23 20:20 140/89 11/04/23 20:20 140/89 11/04/23 20:15 85 11/04/23 20:13 148/99 H 11/04/23 20:13 148/99 H 11/04/23 20:13 148/99 H 11/04/23 20:03 36.6 C 104 H 20 157/100 H 93 O2 Del Method O2 Flow Rate 11/05/23 07:34 11/05/23 07:04 Room Air 11/05/23 02:15 11/05/23 02:15 Room Air 11/05/23 01:00 11/05/23 01:00 11/05/23 00:33 11/05/23 00:30 11/05/23 00:30 11/05/23 00:27 11/05/23 00:15 11/05/23 00:00 11/05/23 00:00 11/05/23 00:00 11/04/23 23:32 Room Air 11/04/23 23:30 Nasal Cannula 2 11/04/23 23:30 11/04/23 23:03 11/04/23 23:00 11/04/23 23:00 11/04/23 23:00 11/04/23 22:57 11/04/23 22:39 11/04/23 22:15 11/04/23 22:00 11/04/23 21:57 11/04/23 21:30 11/04/23 21:30 11/04/23 21:30 11/04/23 21:00 11/04/23 21:00 11/04/23 21:00 11/04/23 20:30 11/04/23 20:30 11/04/23 20:23 Room Air 11/04/23 20:20 11/04/23 20:20 11/04/23 20:15 11/04/23 20:13 11/04/23 20:13 11/04/23 20:13 11/04/23 20:03 Room Air Diagnostic Findings Head CT 11/04/23 20:24 Exam(s): CT HEAD Without Contrast EXAM: CT Head Without Intravenous Contrast CLINICAL HISTORY: Reason for exam: ams etoh possible seizure. TECHNIQUE: Axial computed tomography images of the head/brain without intravenous contrast. CTDI is 60.92 mGy and DLP is 961.59 mGy-cm. Automated exposure control was utilized for the study. A dose lowering technique was utilized adhering to the principles of ALARA. COMPARISON: Prior head CT from November 20, 2022. FINDINGS: Brain: Unremarkable. No hemorrhage. No significant white matter disease. No edema. Ventricles: Unremarkable. No ventriculomegaly. Bones/joints: Unremarkable. No acute fracture. Soft tissues: Unremarkable. Sinuses: Unremarkable as visualized. No acute sinusitis. Mastoid air cells: Unremarkable as visualized. No mastoid effusion. IMPRESSION: No evidence of acute intracranial pathology. Electronically signed by: Megan Villanueva MD 11/04/23 22:51 PM
[2023-11-05] MEDS ORDERED: POTASSIUM PHOS 3 MMOL/1 ML INFUSION IV STA (08:03)
[2023-11-05] MEDS: PANTOprazole 40 MG TAB PO SCH (08:54)
[2023-11-05] MEDS: SPIRONOLACTONE 25 MG TAB PO SCH (08:55)
[2023-11-05] MEDS: MAGNESIUM CHLORIDE W/CALCIUM 64MG DELAYED REL TAB PO SCH (08:55)
[2023-11-05] MEDS: nadoloL 40 MG TAB PO SCH (08:55)
[2023-11-05] MEDS: GABAPENTIN 300 MG CAP PO SCH (08:55)
[2023-11-05] MEDS: ursodioL 300 MG CAP PO SCH (08:55)
[2023-11-05] MEDS: CALCIUM CARBONATE 1250MG TAB PO SCH (08:56)
[2023-11-05] MEDS: CYANOCOBALAMIN (B-12) 500 MCG TABLET PO SCH (08:56)
[2023-11-05] MEDS: FOLIC ACID 1 MG TAB PO SCH (08:56)
[2023-11-05] MEDS: FUROSEMIDE 20 MG TAB PO SCH (08:56)
[2023-11-05] MEDS: POTASSIUM CHLORIDE CRTAB 20 MEQ TABCR PO STA (08:56)
[2023-11-05] MEDS: CITALOPRAM 20 MG TAB PO SCH (08:56)
[2023-11-05] MEDS: busPIRone 5 MG TAB PO SCH (08:56)
[2023-11-05] MEDS: THIAMINE HCL 100 MG TAB PO SCH (08:56)
[2023-11-05] MEDS: POTASSIUM PHOSPHATE 21 MMOL in SODIUM CHLORIDE 0.9% 500 ML IV ONE (08:57)
--- NOTE | 2023-11-05 08:58 | Electrocardiogram Report ---
Test Reason : Blood Pressure : */* mmHG Vent. Rate : 69 BPM Atrial Rate : 69 BPM P-R Int : 138 ms QRS Dur : 98 ms QT Int : 456 ms P-R-T Axes : 41 74 59 degrees QTcB Int : 488 ms Normal sinus rhythm possible Inferior infarct , age undetermined Abnormal ECG When compared with ECG of 27-Aug-2023 05:11, Vent. rate has increased by 27 bpm Confirmed by Melchor Nguyen ([id number]) on 11/05/2023 8:57:42 AM Referred By: REFERRED SELF Confirmed By: Melchor Nguyen
[2023-11-05] MEDS ORDERED: POTASSIUM CHLORIDE CRTAB 20 MEQ TABCR PO SCH (09:00)
[2023-11-05] MEDS: LORazepam 2 MG in SYRINGE 1 ML IV PRN (10:01)
[2023-11-05 10:23] LABS: Folate (Folic Acid),Ser orPlas > 22.30 ng/ml (>5.38)
[2023-11-05 10:24] LABS: Vitamin B12 368 pg/ml (180-914)
[2023-11-05] MEDS: LOPERAMIDE HCL 2 MG CAP PO PRN (15:55)
[2023-11-05 16:32] LABS: Appearance Urine Clear (Clear); Bilirubin Urine Negative (Negative); Blood Urine Negative (Negative); Color Urine Yellow; Glucose Urine UA Negative (Negative); Ketones Urine Negative (Negative); Leukocyte Esterase Urine Negative (Negative); Nitrite Urine Negative (Negative); Protein Urine Negative (Negative); Specific Gravity Urine 1.009 (1.000-1.030); Urobilinogen Urine Negative (Negative); pH Urine 7.5 (4.5-7.5)
[2023-11-05] MEDS: PROMETHAZINE 12.5 MG/50.5 ML BAG IV PRN (17:39)
[2023-11-05] MEDS: POTASSIUM CHLORIDE CRTAB 20 MEQ TABCR PO SCH (20:26)
[2023-11-05] MEDS: traMADol HCL 50 MG TABLET PO PRN (20:56)
[2023-11-05] MEDS: ZOLPIDEM TARTRATE 5 MG TAB PO PRN (22:03)
[2023-11-06] MEDS: chlordiazePOXIDE HCl 25 MG CAP PO SCH (05:15)
[2023-11-06 06:50] LABS: Hematocrit (blood only) 36.9 % (42.0-52.0); Hemoglobin 12.8 g/dl (14.0-18.0); Mean Corpuscular Hemoglobin 34.2 pg (25.0-34.0); Mean Corpuscular Hgb Conc 34.7 g/dL (32.0-36.0); Mean Corpuscular Volume 98.7 fL (80.0-100.0); Mean Platelet Volume 10.5 fL (9.4-12.4); Platelet Count 68 K/uL (130-400); RDW Coefficient of Variation 12.7 % (11.5-14.5); RDW Standard Deviation 46.1 fL (36.4-46.3); Red Blood Count 3.74 M/uL (4.70-6.10); White Blood Count 3.28 K/ul (4.8-10.8)
[2023-11-06 06:52] LABS: Platelet Estimate Decreased (Normal)
[2023-11-06 06:57] LABS: Albumin Globulin Ratio 0.9 (0.9-2); Albumin Level 3.2 gm/dl (3.4-5.0); BUN Creatinine Ratio 10.7 (10-20); Bilirubin,Total 1.5 mg/dl (0.2-1.0); Globulin 3.6 gm/dl (2.5-4.0); Magnesium 1.2 mg/dl (1.7-2.4); Phosphorus 3.1 mg/dl (2.5-4.9); Potassium 3.6 mmol/L (3.5-5.1); Total Protein 6.8 gm/dl (6.0-8.3)
[2023-11-06] MEDS: MAGNESIUM SULFATE / D5W 1 GM/100 ML BAG IV SCH (09:32)
[2023-11-06] MEDS: LORazepam 1 MG in SYRINGE 0.5 ML IV PRN (09:36)
[2023-11-06 11:03] LABS: Hematocrit (blood only) 41.2 % (42.0-52.0); Hemoglobin 13.8 g/dl (14.0-18.0)
--- NOTE | 2023-11-06 13:02 | Hospitalist Progress Note ---
Date of Service November 06, 2023 Assessment & Plan (1) Alcohol withdrawal: Plan Pt is a 48-year-old male with past medical history significant for pancreatic cyst, secondary esophageal varices without bleeding, alcoholic cirrhosis of liver with ascites, chronic cholecystitis, macrocytic anemia, coagulopathy, history of alcohol withdrawal seizures who presents with alcoholism and request for detox. Patient states he is drinking a pint of tequila daily. Alcohol withdrawal History of alcohol withdrawal seizures alcohol withdrawal protocol with Librium and IV Ativan as needed IV banana bag Continue home thiamine and folic acid Closely monitor Alcoholic liver cirrhosis Esophageal varices History of ascites Continue home nadolol, Lasix and spironolactone and Protonix Low-salt diet Elevated LFTs Continue to trend Liver US if worsening Thrombocytopenia Platelets 116 on admission has decreased to 68K, will d/c DVT prophylaxis Continue to monitor Anemia Hgb drop from 17 to 12 Likely dilutional, pt could also have been hemoconcentrated on admission Closely monitor for signs of bleeding, pt denies any Repeat H/H, continue to monitor Anxiety Continue buspirone and citalopram Chronic cholecystitis On ursodiol Hypokalemia hypomagnesia Continue home potassium and magnesium supplements replete additionally as needed History of prolonged QTc serial EKGs Continue to follow urinary symptoms UA unremarkable Diet: low sodium DVT prophylaxis: SCDs in setting of thrombocytopenia Dispo: TBD once medically stable Admission and Anticipated Discharge Date Admission Date: November 05, 2023 Subjective pt seen in the AM. States still feeling anxious and tremulous. Diarrhea seems to be improving Pt denies signs of bleeding-epistaxis, hemoptysis, hematemesis, hematochezia or melena Denies acute concerns otherwise. Review of Systems Review of Systems: All systems reviewed & are unremarkable except as noted in Subjective Physical Exam Physical Exam: General: Alert, oriented. No acute distress Skin: No noted rashes or bruises Psych: Appropriate mood and affect Neuro: tremors noted in hands outstretched HEENT: NC/AT CV: RRR Resp: Breath sounds clear bilaterally, no increased effort of breathing Abdomen: distended Extremities: No edema in lower extremities bilaterally. Results & Data Results & Data Vital Signs (Past 12 Hours) Vital Signs Temp Pulse Pulse Resp BP Pulse Ox O2 Del Method 11/06/23 11:07 36.9 C 69 16 132/87 94 Room Air 08/08/24 07:27 83 11/06/23 07:06 36.5 C 76 15 136/87 96 Room Air 11/06/23 02:49 38.0 C H 65 18 145/80 H 95 Room Air
[2023-11-07 06:39] LABS: Adenovirus F 40/41 PCR Not Detected (NotDetected); Astrovirus PCR Not Detected (NotDetected); Campylobacter PCR Not Detected (NotDetected); Cryptosporidium PCR Not Detected (NotDetected); Cyclospora cayetanensis PCR Not Detected (NotDetected); Entamoeba histolytica PCR Not Detected (NotDetected); Enteroaggregative E.coli(EAEC) Not Detected (NotDetected); Enteropathogenic E.coli (EPEC) Not Detected (NotDetected); Enterotoxigenic E.coli (ETEC) Not Detected (NotDetected); Giardia lamblia PCR Not Detected (NotDetected); Norovirus GI/GII PCR Not Detected (NotDetected); Plesiomonas shigelloides PCR Not Detected (NotDetected); Rotavirus A PCR Not Detected (NotDetected); Salmonella PCR Not Detected (NotDetected); Sapovirus PCR Not Detected (NotDetected); Shiga-like Toxin E.coli (STEC) Not Detected (NotDetected); Shigella/Enteroinvasive E.coli Not Detected (NotDetected); Vibrio cholerae PCR Not Detected (NotDetected); Vibrio species PCR Not Detected (NotDetected); Yersinia enterocolitica PCR Not Detected (NotDetected)
[2023-11-07 07:01] LABS: Hematocrit (blood only) 40.1 % (42.0-52.0); Hemoglobin 13.5 g/dl (14.0-18.0); Mean Corpuscular Hgb Conc 33.7 g/dL (32.0-36.0); Platelet Count 79 K/uL (130-400); RDW Coefficient of Variation 12.8 % (11.5-14.5); RDW Standard Deviation 47.6 fL (36.4-46.3); Red Blood Count 3.97 M/uL (4.70-6.10)
[2023-11-07 07:13] LABS: Albumin Globulin Ratio 0.8 (0.9-2); Albumin Level 3.3 gm/dl (3.4-5.0); Bilirubin,Total 1.6 mg/dl (0.2-1.0); Calcium 8.6 mg/dl (8.6-10.3); Creatinine Clr Calc Pharmacy 117.1 ml/min; Est GFR (African American) 125.4 ml/min; Est GFR (Non-African American) 108.2 ml/min; Globulin 3.9 gm/dl (2.5-4.0); Magnesium 1.3 mg/dl (1.7-2.4); Phosphorus 2.2 mg/dl (2.5-4.9); Potassium 4.2 mmol/L (3.5-5.1); Total Protein 7.2 gm/dl (6.0-8.3)
[2023-11-07] MEDS ORDERED: SODIUM PHOSPHATE 3 MMOL/1 ML INFUSION IV STA (08:39)
[2023-11-07] MEDS: MAGNESIUM SULFATE / D5W 1 GM/100 ML BAG IV SCH (09:35)
[2023-11-07] MEDS: SODIUM PHOSPHATE 21 MMOL in SODIUM CHLORIDE 0.9% 500 ML IV ONE (09:35)
--- NOTE | 2023-11-07 13:12 | XRay Report ---
LEFT ANKLE 2 VIEWS CLINICAL HISTORY: Left ankle pain. FINDINGS: AP and lateral views of the left ankle are obtained. No prior studies are available for [facility] at the time of dictation. The skeletal structures are well mineralized. No fracture is seen. The ankle mortise is intact. There are large dorsal and plantar heel spurs. Soft tissue edema is pres ent around the ankle. Calcifications are noted along the course of the plantar fascia. IMPRESSION: Soft tissue swelling with no radiographic evidence of acute fracture. Electronically signed by: Darrin Tran M.D. 11/07/2023 1:11 PM
--- NOTE | 2023-11-07 13:23 | XRay Report ---
XR foot LT 2V CLINICAL HISTORY: foot pain TECHNIQUE: 3 views of the left foot were obtained. Comparison: None available at the time of this dictation. FINDINGS: No fractures are present. Degenerative changes are seen. No soft tissue abnormality is seen. IMPRESSION: Degenerative changes without evidence of acute fracture. ACT 112: Negative or not required by law. Electronically signed by: Darrel Haney M.D. 11/07/2023 1:21 PM
--- NOTE | 2023-11-07 16:38 | Hospitalist Progress Note ---
Date of Service November 07, 2023 Assessment & Plan (1) Alcohol withdrawal: Plan Pt is a 48-year-old male with past medical history significant for pancreatic cyst, secondary esophageal varices without bleeding, alcoholic cirrhosis of liver with ascites, chronic cholecystitis, macrocytic anemia, coagulopathy, history of alcohol withdrawal seizures who presents with alcoholism and request for detox. Patient states he is drinking a pint of tequila daily. Alcohol withdrawal History of alcohol withdrawal seizures alcohol withdrawal protocol with Librium and IV Ativan as needed IV banana bag Continue home thiamine and folic acid Closely monitor Alcoholic liver cirrhosis Esophageal varices History of ascites Continue home nadolol, Lasix and spironolactone and Protonix Low-salt diet Elevated LFTs Continue to trend Liver US if worsening Thrombocytopenia Platelets 116 on admission has decreased to 68K, will d/c DVT prophylaxis Continue to monitor Anemia Hgb drop from 17 to 12 Likely dilutional, pt could also have been hemoconcentrated on admission Closely monitor for signs of bleeding, pt denies any Repeat H/H, continue to monitor Left ankle Sprain XR L foot and ankle with no noted fractures Ice Pain control Anxiety Continue buspirone and citalopram Chronic cholecystitis On ursodiol Hypokalemia hypomagnesia Continue home potassium and magnesium supplements replete additionally as needed Hypophosphatemia replete as needed History of prolonged QTc serial EKGs Continue to follow urinary symptoms UA unremarkable Diet: low sodium DVT prophylaxis: SCDs in setting of thrombocytopenia Dispo: TBD once medically stable Admission and Anticipated Discharge Date Admission Date: November 05, 2023 Subjective pt seen in the AM. Nursing at bedside. Concerned about his left ankle, states it hurts and has caused him to fall Review of Systems Review of Systems: All systems reviewed & are unremarkable except as noted in Subjective Physical Exam Physical Exam: General: Alert, oriented. No acute distress Skin: No noted rashes or bruises Psych: Appropriate mood and affect Neuro: tremors noted in hands outstretched HEENT: NC/AT CV: RRR Resp: Breath sounds clear bilaterally, no increased effort of breathing Abdomen: distended Extremities: tender in left ankle and over dorsum of left foot, no visible erythema or swelling Results & Data Results & Data Vital Signs (Past 12 Hours) Vital Signs Temp Pulse Pulse Resp BP Pulse Ox O2 Del Method 11/07/23 14:42 82 11/07/23 14:19 37.6 C H 76 18 132/83 94 Room Air 11/07/23 10:45 37.3 C 76 18 142/89 H 94 Room Air 11/07/23 09:48 37.9 C H 88 18 135/86 95 Room Air 11/07/23 07:15 90 11/07/23 07:11 37.8 C H 88 18 128/80 93 Room Air 11/07/23 04:58 36.9 C 94 H 20 176/97 H 97 Room Air
[2023-11-08] MEDS: chlordiazePOXIDE HCl 5 MG CAP PO SCH (05:50)
[2023-11-08 06:40] LABS: Hematocrit (blood only) 40.3 % (42.0-52.0); Hemoglobin 13.6 g/dl (14.0-18.0); Mean Corpuscular Hemoglobin 34.2 pg (25.0-34.0); Mean Corpuscular Hgb Conc 33.7 g/dL (32.0-36.0); Mean Corpuscular Volume 101.3 fL (80.0-100.0); Mean Platelet Volume 11.1 fL (9.4-12.4); Platelet Count 82 K/uL (130-400); RDW Coefficient of Variation 12.8 % (11.5-14.5); RDW Standard Deviation 48.1 fL (36.4-46.3); Red Blood Count 3.98 M/uL (4.70-6.10); White Blood Count 5.61 K/ul (4.8-10.8)
[2023-11-08 07:18] LABS: Albumin Globulin Ratio 0.8 (0.9-2); Albumin Level 3.3 gm/dl (3.4-5.0); BUN Creatinine Ratio 11.9 (10-20); Bilirubin,Total 1.5 mg/dl (0.2-1.0); Calcium 8.6 mg/dl (8.6-10.3); Creatinine Clr Calc Pharmacy 127.6 ml/min; Est GFR (African American) 129.9 ml/min; Magnesium 1.6 mg/dl (1.7-2.4); Phosphorus 3.6 mg/dl (2.5-4.9); Potassium 3.8 mmol/L (3.5-5.1); Total Protein 7.3 gm/dl (6.0-8.3)
[2023-11-08] MEDS: MAGNESIUM SULFATE / D5W 1 GM/100 ML BAG IV SCH (09:53)
--- NOTE | 2023-11-08 12:09 | Hospitalist Progress Note ---
Date of Service November 08, 2023 Assessment & Plan (1) Alcohol withdrawal: Plan Pt is a 48-year-old male with past medical history significant for pancreatic cyst, secondary esophageal varices without bleeding, alcoholic cirrhosis of liver with ascites, chronic cholecystitis, macrocytic anemia, coagulopathy, history of alcohol withdrawal seizures who presents with alcoholism and request for detox. Patient states he is drinking a pint of tequila daily. Alcohol withdrawal History of alcohol withdrawal seizures alcohol withdrawal protocol with Librium and IV Ativan as needed IV banana bag Continue home thiamine and folic acid Closely monitor Alcoholic liver cirrhosis Esophageal varices History of ascites Continue home nadolol, Lasix and spironolactone and Protonix Low-salt diet Elevated LFTs Continue to trend Liver US if worsening Thrombocytopenia Platelets 116 on admission has decreased to 68K, will d/c DVT prophylaxis Continue to monitor Anemia Hgb drop from 17 to 12 Likely dilutional, pt could also have been hemoconcentrated on admission Closely monitor for signs of bleeding, pt denies any Repeat H/H, continue to monitor Left ankle Sprain XR L foot and ankle with no noted fractures Ice Pain control PT/OT Anxiety Continue buspirone and citalopram Chronic cholecystitis On ursodiol Hypokalemia hypomagnesia Continue home potassium and magnesium supplements replete additionally as needed Hypophosphatemia replete as needed History of prolonged QTc serial EKGs Continue to follow urinary symptoms UA unremarkable Diet: low sodium DVT prophylaxis: SCDs in setting of thrombocytopenia Dispo: TBD once medically stable Admission and Anticipated Discharge Date Admission Date: November 05, 2023 Subjective pt seen in the AM. States ice did not help foot, made things worse Per nursing has not been requiring a lot f Ativan per scoring. Review of Systems Review of Systems: All systems reviewed & are unremarkable except as noted in Subjective Physical Exam Physical Exam: General: Alert, oriented. No acute distress Skin: No noted rashes or bruises Psych: Appropriate mood and affect Neuro: tremors noted in hands outstretched HEENT: NC/AT CV: RRR Resp: Breath sounds clear bilaterally, no increased effort of breathing Abdomen: distended Extremities: tender in left ankle and over dorsum of left foot, some erythema and swelling Results & Data Results & Data Vital Signs (Past 12 Hours) Vital Signs Temp Pulse Pulse Resp BP Pulse Ox O2 Del Method 11/08/23 11:00 36.7 C 78 20 129/79 97 Room Air 11/08/23 08:00 67 11/08/23 08:00 36.8 C 74 20 133/73 96 Room Air 11/08/23 02:50 36.9 C 71 18 130/82 97 Room Air
[2023-11-08] MEDS: traMADol HCL 50 MG TABLET PO STA (18:28)
[2023-11-09 06:05] LABS: Hematocrit (blood only) 42.1 % (42.0-52.0); Mean Corpuscular Hgb Conc 33.3 g/dL (32.0-36.0); Mean Corpuscular Volume 102.2 fL (80.0-100.0); Mean Platelet Volume 10.6 fL (9.4-12.4); Platelet Count 120 K/uL (130-400); RDW Coefficient of Variation 12.8 % (11.5-14.5); RDW Standard Deviation 47.8 fL (36.4-46.3); Red Blood Count 4.12 M/uL (4.70-6.10); White Blood Count 8.43 K/ul (4.8-10.8)
[2023-11-09 06:19] LABS: Albumin Globulin Ratio 0.8 (0.9-2); Albumin Level 3.4 gm/dl (3.4-5.0); BUN Creatinine Ratio 13.2 (10-20); Bilirubin,Total 1.5 mg/dl (0.2-1.0); Calcium 8.8 mg/dl (8.6-10.3); Creatinine Clr Calc Pharmacy 125.7 ml/min; Est GFR (African American) 129.1 ml/min; Est GFR (Non-African American) 111.4 ml/min; Globulin 4.2 gm/dl (2.5-4.0); Magnesium 1.5 mg/dl (1.7-2.4); Phosphorus 3.7 mg/dl (2.5-4.9); Potassium 4.2 mmol/L (3.5-5.1); Total Protein 7.6 gm/dl (6.0-8.3)
[2023-11-09 06:27] LABS: INR 1.2 (0.9-1.1); Prothrombin Time 12.5 Seconds (9.0-12.0)
[2023-11-09] MEDS: MAGNESIUM SULFATE / D5W 1 GM/100 ML BAG IV SCH (09:19)
--- NOTE | 2023-11-09 10:52 | Hospitalist Progress Note ---
Date of Service November 09, 2023 Assessment & Plan (1) Alcohol withdrawal: Plan Pt is a 48-year-old male with past medical history significant for pancreatic cyst, secondary esophageal varices without bleeding, alcoholic cirrhosis of liver with ascites, chronic cholecystitis, macrocytic anemia, coagulopathy, history of alcohol withdrawal seizures who presents with alcoholism and request for detox. Patient states he is drinking a pint of tequila daily. Alcohol withdrawal History of alcohol withdrawal seizures alcohol withdrawal protocol with Librium and IV Ativan as needed IV banana bag Continue home thiamine and folic acid Closely monitor Alcoholic liver cirrhosis Esophageal varices History of ascites Continue home nadolol, Lasix and spironolactone and Protonix Low-salt diet Elevated LFTs Continue to trend Liver US if worsening Thrombocytopenia Platelets 116 on admission has decreased to 68K, will d/c DVT prophylaxis Continue to monitor Anemia Hgb drop from 17 to 12 Likely dilutional, pt could also have been hemoconcentrated on admission Closely monitor for signs of bleeding, pt denies any Repeat H/H, continue to monitor Left ankle Sprain XR L foot and ankle with no noted fractures Ice Pain control PT/OT Anxiety Continue buspirone and citalopram Chronic cholecystitis On ursodiol Hypokalemia hypomagnesia Continue home potassium and magnesium supplements replete additionally as needed Hypophosphatemia replete as needed History of prolonged QTc serial EKGs Continue to follow urinary symptoms UA unremarkable Diet: low sodium DVT prophylaxis: SCDs in setting of thrombocytopenia Dispo: TBD once medically stable Admission and Anticipated Discharge Date Admission Date: November 05, 2023 Subjective pt seen in the AM. States still can't ambulate. Awaiting PT eval. Denies acute concerns otherwise Review of Systems Review of Systems: All systems reviewed & are unremarkable except as noted in Subjective Physical Exam Physical Exam: General: Alert, oriented. No acute distress Skin: No noted rashes or bruises Psych: Appropriate mood and affect Neuro: tremors noted in hands outstretched HEENT: NC/AT CV: RRR Resp: Breath sounds clear bilaterally, no increased effort of breathing Abdomen: distended Extremities: tender in left ankle and over dorsum of left foot, some erythema and swelling Results & Data Results & Data Vital Signs (Past 12 Hours) Vital Signs Temp Pulse Pulse Resp BP BP Pulse Ox 11/09/23 07:42 78 11/09/23 07:20 37.2 C 89 16 120/70 97 11/09/23 03:24 37.6 C H 89 14 110/70 96 11/08/23 23:08 37.8 C H 72 14 135/74 96 11/08/23 22:54 68 O2 Del Method 11/09/23 07:42 11/09/23 07:20 Room Air 11/09/23 03:24 Room Air 11/08/23 23:08 Room Air 11/08/23 22:54
[2023-11-09] MEDS: HYDROmorphone INJ 0.5 MG/0.5 ML SYR IV STA (19:47)
[2023-11-10 06:43] LABS: Hematocrit (blood only) 40.6 % (42.0-52.0); Hemoglobin 13.9 g/dl (14.0-18.0); Mean Corpuscular Hemoglobin 34.6 pg (25.0-34.0); Mean Corpuscular Hgb Conc 34.2 g/dL (32.0-36.0); Mean Platelet Volume 10.6 fL (9.4-12.4); Platelet Count 133 K/uL (130-400); RDW Coefficient of Variation 12.6 % (11.5-14.5); RDW Standard Deviation 47.1 fL (36.4-46.3); Red Blood Count 4.02 M/uL (4.70-6.10); White Blood Count 8.82 K/ul (4.8-10.8)
[2023-11-10 07:05] LABS: INR 1.2 (0.9-1.1)
[2023-11-10 07:06] LABS: Albumin Globulin Ratio 0.8 (0.9-2); Albumin Level 3.3 gm/dl (3.4-5.0); BUN Creatinine Ratio 12.3 (10-20); Bilirubin,Total 1.8 mg/dl (0.2-1.0); Calcium 8.9 mg/dl (8.6-10.3); Creatinine Clr Calc Pharmacy 105.6 ml/min; Est GFR (African American) 120.1 ml/min; Est GFR (Non-African American) 103.6 ml/min; Globulin 4.3 gm/dl (2.5-4.0); Magnesium 1.5 mg/dl (1.7-2.4); Phosphorus 3.1 mg/dl (2.5-4.9); Potassium 4.5 mmol/L (3.5-5.1); Total Protein 7.6 gm/dl (6.0-8.3)
[2023-11-10] MEDS: MAGNESIUM CHLORIDE W/CALCIUM 64MG DELAYED REL TAB PO SCH (09:06)
[2023-11-10] MEDS: MAGNESIUM SULFATE / D5W 1 GM/100 ML BAG IV SCH (09:07)
--- NOTE | 2023-11-10 09:58 | Hospitalist Progress Note ---
Date of Service November 10, 2023 Assessment & Plan (1) Alcohol withdrawal: Plan Pt is a 48-year-old male with past medical history significant for pancreatic cyst, secondary esophageal varices without bleeding, alcoholic cirrhosis of liver with ascites, chronic cholecystitis, macrocytic anemia, coagulopathy, history of alcohol withdrawal seizures who presents with alcoholism and request for detox. Patient states he is drinking a pint of tequila daily. Alcohol withdrawal History of alcohol withdrawal seizures alcohol withdrawal protocol with Librium and IV Ativan as needed IV banana bag Continue home thiamine and folic acid Closely monitor Stable Alcoholic liver cirrhosis Esophageal varices History of ascites Continue home nadolol, Lasix and spironolactone and Protonix Low-salt diet Elevated LFTs Continue to trend Liver US if worsening Thrombocytopenia Platelets 116 on admission has decreased to 68K, will d/c DVT prophylaxis Continue to monitor improving Anemia Hgb drop from 17 to 12 Likely dilutional, pt could also have been hemoconcentrated on admission Closely monitor for signs of bleeding, pt denies any Repeat H/H, continue to monitor Stable Left ankle Sprain XR L foot and ankle with no noted fractures Ice Pain control PT/OT Anxiety Continue buspirone and citalopram Chronic cholecystitis On ursodiol Hypokalemia hypomagnesia Continue home potassium and magnesium supplements replete additionally as needed Hypophosphatemia replete as needed History of prolonged QTc serial EKGs Continue to follow urinary symptoms UA unremarkable Diet: low sodium DVT prophylaxis: SCDs in setting of thrombocytopenia Dispo: Pt recommending acute rehab Admission and Anticipated Discharge Date Admission Date: November 05, 2023 Subjective pt seen in the AM. states nauseous States still can't ambulate. Awaiting PT eval. Denies acute concerns otherwise Review of Systems Review of Systems: All systems reviewed & are unremarkable except as noted in Subjective Physical Exam Physical Exam: General: Alert, oriented. No acute distress Skin: No noted rashes or bruises Psych: Appropriate mood and affect Neuro: tremors noted in hands outstretched HEENT: NC/AT CV: RRR Resp: Breath sounds clear bilaterally, no increased effort of breathing Abdomen: distended Extremities: tender in left ankle and over dorsum of left foot, some erythema and swelling Results & Data Results & Data Vital Signs (Past 12 Hours) Vital Signs Temp Pulse Pulse Resp BP BP Pulse Ox 11/10/23 08:10 11/10/23 07:58 37.9 C H 79 18 135/81 96 11/10/23 07:16 91 H 11/10/23 03:29 37.1 C 89 18 129/87 96 11/09/23 23:19 37.1 C 74 18 123/78 95 11/09/23 22:48 72 O2 Del Method 11/10/23 08:10 Room Air 11/10/23 07:58 Room Air 11/10/23 07:16 11/10/23 03:29 Room Air 11/09/23 23:19 Room Air 11/09/23 22:48
[2023-11-11 06:27] LABS: Hematocrit (blood only) 39.7 % (42.0-52.0); Hemoglobin 13.4 g/dl (14.0-18.0); Mean Corpuscular Hemoglobin 33.7 pg (25.0-34.0); Mean Corpuscular Hgb Conc 33.8 g/dL (32.0-36.0); Mean Corpuscular Volume 99.7 fL (80.0-100.0); Mean Platelet Volume 10.6 fL (9.4-12.4); Platelet Count 152 K/uL (130-400); RDW Coefficient of Variation 12.2 % (11.5-14.5); RDW Standard Deviation 45.5 fL (36.4-46.3); Red Blood Count 3.98 M/uL (4.70-6.10); White Blood Count 8.13 K/ul (4.8-10.8)
[2023-11-11 06:35] LABS: Albumin Globulin Ratio 0.7 (0.9-2); Albumin Level 3.2 gm/dl (3.4-5.0); Bilirubin,Total 1.5 mg/dl (0.2-1.0); Calcium 9.1 mg/dl (8.6-10.3); Globulin 4.3 gm/dl (2.5-4.0); Magnesium 1.7 mg/dl (1.7-2.4); Potassium 4.3 mmol/L (3.5-5.1); Total Protein 7.5 gm/dl (6.0-8.3)
[2023-11-11 06:52] LABS: INR 1.2 (0.9-1.1); Prothrombin Time 13.3 Seconds (9.0-12.0)
[2023-11-11 07:59] VITALS: PULSE 75; RESP 18; TEMP 97.9; O2SAT 99
[2023-11-11] MEDS: KETOROLAC TROMETHAMINE 15 MG/ML VIAL IV ONE (08:03)
--- NOTE | 2023-11-11 09:05 | Discharge Summary ---
Discharge Summary Date of Service November 11, 2023 Principal Dx & Hospital Course #1 = Principal Diagnosis (1) Alcohol withdrawal: Plan Pt is a 48-year-old male with past medical history significant for pancreatic cyst, secondary esophageal varices without bleeding, alcoholic cirrhosis of liver with ascites, chronic cholecystitis, macrocytic anemia, coagulopathy, history of alcohol withdrawal seizures who presents with alcoholism and request for detox. Patient states he is drinking a pint of tequila daily. Alcohol withdrawal History of alcohol withdrawal seizures alcohol withdrawal protocol with Librium and IV Ativan as needed IV banana bag Continue home thiamine and folic acid Closely monitored Stable for discharge Alcoholic liver cirrhosis Esophageal varices History of ascites Continue home nadolol, Lasix and spironolactone and Protonix Low-salt diet GI follow up Elevated LFTs Likely in setting of above Downtrended while hospitalized Thrombocytopenia Platelets 116 on admission had decreased to 68K, will d/c DVT prophylaxis Normal on discharge Anemia Hgb drop from 17 to 12 Likely dilutional, pt could also have been hemoconcentrated on admission Closely monitored for signs of bleeding, pt denies any Hgb remained stable at 13-14 Left ankle Sprain XR L foot and ankle with NO noted fractures Iced, pt stated that ice made it worse Pain control with home gabapentin and prn tramadol 25mg q6h PT/OT- recommended acute rehab However pt without insurance so acute rehab was not an option. Pt was given a CAMboot upon discharge to assist with ambulation Close PCP followup, consider outpt orthopedics followup. Discharged with 5 pills of tramadol 50mg daily PRN for SEVERE pain. PCP followup Anxiety Continue buspirone and citalopram Chronic cholecystitis On ursodiol Hypokalemia hypomagnesia Continue home potassium and magnesium supplements repleted additionally as needed PCP followup All normal on discharge Hypophosphatemia repleted as needed History of prolonged QTc serial EKGs Continue to follow urinary symptoms UA unremarkable stable Notes For Next Care Provider Pt was given a CAMboot upon discharge to assist with ambulation with left ankle sprain Close PCP followup, consider outpt orthopedics followup Medication Changes From Visit Tramadol 50mg daily prn for severe pain Admission HPI Per Admitting Provider 48-year-old male with past medical history significant for pancreatic cyst, secondary esophageal varices without bleeding, alcoholic cirrhosis of liver with ascites, chronic cholecystitis, macrocytic anemia, coagulopathy, history of alcohol withdrawal seizures presents with alcoholism and request for detox. Patient states he is drinking a pint of tequila daily. Somewhat shaky. Denies abdominal pain. Normal bowel and bladder movements. Thinks he has mild burning micturition. No fevers. No chest pain or shortness of breath. No headache. No runny nose ,no sore throat. No cough. Hemodynamics are okay. Past medical history. As mentioned above Past surgical history. EGD. ERCP with stone removal. Tonsillectomy. Social history. She used tobacco. Drinking tequila 1 pint daily. No drug use. Family history. Mother had asthma, diabetes and stroke. Father had prostate cancer, stroke Admission Exam Per Admitting Provider General- Not in distress Head- atraumatic Eyes- PERRL. ENT- oropharynx clear Neck- supple, no JVD. Lungs- clear to auscultation no wheezing or crackles. Heart- regular rhythm; no murmur, no gallop. Abdomen- normal bowel sounds, soft, nontender, no distension Neuro- alert, oriented PERRL, no facial palsy; no dysarthria; moves extremities Discharge Exam General: Alert, oriented. No acute distress Skin: No noted rashes or bruises Psych: Appropriate mood and affect Neuro: tremors noted in hands outstretched HEENT: NC/AT CV: RRR Resp: Breath sounds clear bilaterally, no increased effort of breathing Abdomen: distended Extremities: tender in left ankle and over dorsum of left foot, some erythema and swelling Updated Medication List Medication Instructions Recorded Confirmed Type buspirone 5 mg tablet 5 mg PO BID 06/10/18 11/04/23 History nadolol 20 mg tablet 20 mg PO QAM 06/10/18 11/04/23 History ursodiol 300 mg capsule 300 mg PO BID 06/10/18 11/04/23 History zolpidem 5 mg tablet (Ambien) 5 mg PO HS PRN Sleep 06/10/18 11/04/23 History furosemide 20 mg tablet 20 mg PO QAM 11/14/22 11/04/23 History spironolactone 25 mg tablet 25 mg PO QAM 11/14/22 11/04/23 History citalopram 10 mg tablet 10 mg PO QAM 04/09/23 11/04/23 History folic acid 1 mg tablet 1 mg PO QAM #30 tabs 06/06/23 11/04/23 Rx thiamine HCl (vitamin B1) 100 mg 100 mg PO QAM #30 tabs 06/06/23 11/04/23 Rx tablet cyanocobalamin (vitamin B-12) 250 250 mcg PO QAM 07/03/23 11/04/23 History mcg tablet (Vitamin B-12) gabapentin 300 mg capsule 300 mg PO TID 07/03/23 11/04/23 History pantoprazole 40 mg tablet,delayed 40 mg PO QAM 08/01/23 11/04/23 History release loperamide 2 mg capsule 2 mg PO Q4H PRN loose stool #30 08/27/23 11/04/23 Rx caps magnesium chloride 64 mg 64 mg PO BID #60 tabs 08/27/23 11/04/23 Rx (magnesium chloride) tablet,delayed release (Mag 64) potassium chloride 20 mEq 20 meq PO QAM #30 tabs 08/27/23 11/04/23 Rx tablet,extended release(part/cryst) calcium carbonate 500 mg-vitamin 1 tab PO BID 11/04/23 11/04/23 History D3 5 mcg (200 unit) tablet (Oyster Shell Calcium-Vitamin D3) ergocalciferol (vitamin D2) 1,250 1,250 mcg PO WK 11/04/23 11/04/23 History mcg (50,000 unit) capsule tramadol 50 mg tablet 50 mg PO DAILY PRN pain, severe #5 11/11/23 Rx tabs Hospital Stay Data Consultations 11/04/23 23:23 ED Decision to Admit Stat Diagnostic Imagining Performed 11/04/23 20:24 CT head/brain wo con Stat Head CT 11/04/23 20:24 Exam(s): CT HEAD Without Contrast EXAM: CT Head Without Intravenous Contrast CLINICAL HISTORY: Reason for exam: ams etoh possible seizure. TECHNIQUE: Axial computed tomography images of the head/brain without intravenous contrast. CTDI is 60.92 mGy and DLP is 961.59 mGy-cm. Automated exposure control was utilized for the study. A dose lowering technique was utilized adhering to the principles of ALARA. COMPARISON: Prior head CT from November 20, 2022. FINDINGS: Brain: Unremarkable. No hemorrhage. No significant white matter disease. No edema. Ventricles: Unremarkable. No ventriculomegaly. Bones/joints: Unremarkable. No acute fracture. Soft tissues: Unremarkable. Sinuses: Unremarkable as visualized. No acute sinusitis. Mastoid air cells: Unremarkable as visualized. No mastoid effusion. IMPRESSION: No evidence of acute intracranial pathology. Electronically signed by: Megan Villanueva MD 11/04/23 22:51 PM Ankle X-Ray 11/07/23 11:02 LEFT ANKLE 2 VIEWS CLINICAL HISTORY: Left ankle pain. FINDINGS: AP and lateral views of the left ankle are obtained. No prior studies are available for comparison at the time of dictation. The skeletal structures are well mineralized. No fracture is seen. The ankle mortise is intact. There are large dorsal and plantar heel spurs. Soft tissue edema is present around the ankle. Calcifications are noted along the course of the plantar fascia. IMPRESSION: Soft tissue swelling with no radiographic evidence of acute fracture. Electronically signed by: Darrin Tran M.D. 11/07/2023 1:11 PM Foot X-Ray 11/07/23 11:02 XR foot LT 2V CLINICAL HISTORY: foot pain TECHNIQUE: 3 views of the left foot were obtained. Comparison: None available at the time of this dictation. FINDINGS: No fractures are present. Degenerative changes are seen. No soft tissue abnormality is seen. IMPRESSION: Degenerative changes without evidence of acute fracture. ACT 112: Negative or not required by law. Electronically signed by: Darrel Haney M.D. 11/07/2023 1:21 PM Discharge Instructions Given to Patient (Per Discharging Provider) Marquise Azevedo are being discharged home after being monitored for alcohol withdrawal. You have a left foot injury that is NOT fractured but sprained. You were seen by physical therapy who recommends acute rehab, however you do not have insurance and so unfortunately that is not an option for you. As a result you are being discharged home. Please use the boot we provided you with for ambulation. Please keep close follow up with your primary care provider after discharge. If your foot symptoms persist, you will likely need to see an orthopedic surgeon that your primary care provider can refer you to. Please also follow up with your pcp for any work excuses or work forms that are needed. Please do not hesitate to come back to the emergency room if your symptoms worsen or return. It was a pleasure taking care of you while you were here. Total Time Total Time Spent Total Time Spent (In Minutes): 75
[2023-11-11 11:32] VITALS: BP 117/72
== END 2023-11-11 11:58 | disposition home or self-care (01) | DRG 897 ==
LOC: ED 19:58 → 2S 11-05 01:10 → 2W 11-09 16:23

== ENCOUNTER 2023-12-21 06:16 | Inpatient (IN) ==
--- OUTSIDE RECORDS SUMMARY | 2023-12-21 06:21 | External Medical Summary | Summary of Care ---
Author Name Unknown Organization [facility] Address [address] [facility] [address] Phone [phone] Care Team Providers Care Photogrammetric Engineer Name Role Phone Michelle Borrego Primary Care Provider Reason for Visit * Reason Onset Date Comments Hospital Follow-Up 11/12/2023 Jori for [facility] Encounter Details Date Type Department Care Team (Late st Contact Info) Description 11/12/2023 Telephone Ancillary [address] [place] [id number] Erin Jolley, FELIPE Hospital Follow-Up (Jori for [facility]) Allergies Active Allergy Reactions Criticality Noted Date Comments Aspirin Other (Please comment) 02/12/2016 Reports having a bloody nose. documented as of this encounter (statuses as of 11/13/2023) Medications Medication Sig Dispensed Refills Start Date [...] 08/27/2023 Active Vitamin D (Ergocalciferol) 1.25 MG (75839 UT) Oral Capsule (Drisdol) TAKE ONE CAPSULE [...] as of this encounter (statuses as of 11/13/2023) Active Problems Problem Noted Date Diagnosed Date [...] as of this encounter (statuses as of 11/13/2023) Resolved Problems Problem Noted Date Diagnosed Date [...] as of this encounter (statuses as of 11/13/2023) Immunizations Name Administration Dates Next Due COVID-19 [...] Telephone Encounter - Erin Jolley RN - 11/13/2023 11:35 AM EDT Attempted Phone Call Second Attempt Call Outcome Left Voicemail/Message Leave message confirming appointment tomorrow with Cheryl granado * Telephone Encounter - Erin Jolley RN - 11/12/2023 3:10 PM EDT Transitions of Care Note Reason for Referral:Recent Admission Phone visit for follow up: JORI Admitted to: [facility], Date: 11.05.23 Discharged to: home, Date: 11.11.23 Diagnosis driving hospitalization: Alcohol withdrawal Patient request for detox. Patient states he is drinking a pint of tequila daily Thrombocytopenia Platelets 116 on admission had decreased to 68K, will d/c DVT prophylaxis Anemia Hgb drop from 17 to 12 Sprained ankle Hospital discharge states: "Close PCP followup, consider outpt orthopedics followup. However pt without insurance so acute rehab was not an option. Pt was given a CAMboot upon discharge to assist with ambulation Discharged with 5 pills of tramadol 50mg daily PRN for SEVERE pain. PCP followup" Left message for the patient to call the office. Attempted Phone Call First Attempt Call Outcome Left Voicemail/Message Erin Jolley RN documented in this encounter Plan of Treatment Upcoming Encounters Date Type Department Care Team (Late st Contact Info) Description 11/14/2023 11:20 AM EDT Office Visit [address] [place] [address] Cheryl Purvis PA-C [address] [place] [address] [place] [id number] 02/03/2024 8:30 AM EST Office Visit [address] [place] [phone] Michelle Borrego DO [address] [place] [address] [place] [id number] Scheduled Procedures Name Priority Associated Diagnoses Date/Ti me ESOPHAGOGASTRODUODENOSCOPY ( EGD), FLEXIBLE, TRANSORAL, DIAGNOSTIC Recall Alcoholic cirrhosis of liver with ascites (HCC) Health Maintenance Due Date Last Done Comments Pneumococcal Vaccine: Pediatrics (0 to 5 Years) and At-Risk Patients (6 to 64 Years) (2 of 2 - PCV) 05/26/2018 05/26/2017 Colonoscopy 2018 Fecal Occult Blood Test 2018 Sigmoidoscopy 2018 Depression Screening 12/20/2020 12/21/2019 Zoster Vaccines (1 of 2) 09/23/2023 Influenza Vaccine (FLU shot) (#1) 2023 12/17/2022, 02/08/2022, 11/29/2020, Additional history exists Cologuard 08/23/2025 08/23/2022, 07/30, 08/17/2022 Colorectal Cancer Screening 08/23/2025 Diabetes Screening 08/11/2026 08/12/2023, 0 05/14/2023, 02/11/2023, Additional history exists DTaP,Tdap,and Td Vaccines (2 - Td or Tdap) 11/12/2026 11/12/2016 Lipid Panel 02/12/2028 02/11/2023, 12/11/2021, 12/02/2018, Additional history exists Hepatitis B Vaccine Completed 02/12/2017, 08/16/2016, 07/12/2016 COVID-19 Vaccine Completed 01/15/2023, 11/2021, 03/07/2021, Additional history exists HPV (Gardasil) Vaccine Aged Out No lo nger eligible based on patient's age to complete [...] Power of Attor ricky? No Care Teams Photogrammetric Engineer Relationship Specialty Start Date End Date Michelle Borrego DO [address] [place] [address] [place] [phone] PCP - General Internal Medicine 06/07/16 documented as of this encounter
--- OUTSIDE RECORDS SUMMARY | 2023-12-21 06:21 | External Medical Summary | Summary of Care ---
Author Name Unknown Organization [facility] Address [address] [place] [address] Phone [phone] Care Team Providers Care Card Reader Name Role Phone Michelle Borrego DO Primary Care Provider [phone] Reason for Visit * Reason Onset Date Comments Advice 09/04/2023 Encounter Details Date Type Department Care Team (Late st Contact Info) Description 09/04/2023 Telephone Family Medicine [address] [phone] Michelle Borrego [address] [place] [id number] Advice Allergies Active Allergy Reactions Criticality Noted Date Comments Aspirin Other (Please comment) 02/12/2016 Reports having a bloody nose. documented as of this encounter (statuses as of 12/04/2023) Medications Medication Sig Dispensed Refills Start Date [...] 08/27/2023 Active Vitamin D (Ergocalciferol) 1.25 MG (01609 UT) Oral Capsule (Drisdol) TAKE ONE CAPSULE [...] as of this encounter (statuses as of 12/04/2023) Active Problems Problem Noted Date Diagnosed Date [...] as of this encounter (statuses as of 12/04/2023) Resolved Problems Problem Noted Date Diagnosed Date [...] as of this encounter (statuses as of 12/04/2023) Immunizations Name Administration Dates Next Due COVID-19 [...] Telephone Encounter - Daniela Cox LPN - 09/10/2023 4:37 PM EDT Left message for pt to return my call. * Telephone Encounter - Michelle Borrego DO - 09/06/2023 10:30 PM EDT Liver enzymes, when checked on 08/12/23 were too high to use naltrexone. If he repeats them and they are improved to less than 3X ULN, can consider prescribing at that time. Notify pt. * Telephone Encounter - Daniela Washington LPN - 09/04/2023 5:09 PM EDT Please re-route to correct pool. * Telephone Encounter - Glendy Guy OSA - 09/04/2023 5:02 PM EDT Patient asking for an appointment with Dr Michelle Borrego on 09/05/23. He needs a script for an injection that will prevent him from drinking alcohol. Patient said Nathan Kirk will give him the shot for free. He is starting a new sonido on Friday09/08/23 and really wants this injection before Friday. The injection is naltrexone. Patient contact [phone] documented in this encounter Plan of Treatment Upcoming Encounters Date Type Department Care Team (Late st Contact Info) Description 02/03/2024 8:30 AM EST Office Visit Family Medicine [address] [phone] Michelle Borrego DO [address] [place] [address] [place] [phone] Scheduled Orders Name Type Priority Associated Diagnoses Orde r Schedule HEPATIC FUNCTION PANEL Lab Routine Alcohol use disorder Expected: 09/06/2023 (Approximate), Expires: 09/05/2024 Scheduled Procedures Name Priority Associated Diagnoses Date/Ti [...] 08/12/2023, 0 05/14/2023, 02/11/2023, Additional history exists DTap/Tdap Vaccines (2 - Td or Tdap) 11/12/2026 11/12/2016 Lipid Panel 02/12/2028 02/11/2023, 1211/2021, 12/02/2018, Additional history exists Hepatitis B Vaccine [...] of this encounter Visit Diagnoses Diagnosis Alcohol use disorder- Primary documented in this encounter Advance Directives * [...] Power of Attor ricky? No Care Teams Card Reader Relationship Specialty Start Date End Date Michelle Borrego DO [address] [place] [address] [place] [id number] PCP - General Internal Medicine 06/07/16 documented as of this encounter
--- OUTSIDE RECORDS SUMMARY | 2023-12-21 06:21 | External Medical Summary | Summary of Care ---
Author Name Unknown Organization [facility] Address [address] [place] [address] Phone [phone] Care Team Providers Care Mannequin Refinisher Name Role Phone Michelle Borrego DO Primary Care Provider [phone] Reason for Visit * Reason Onset Date Comments Letter Requests 11/11/2023 Encounter Details Date Type Department Care Team (Late st Contact Info) Description 11/11/2023 Telephone Family Medicine [address] [phone] Michelle Borrego DO [address] [place] [address] [place] [phone] Letter Requests Allergies Active Allergy Reactions Criticality Noted Date Comments Aspirin Other (Please comment) 02/12/2016 Reports having a bloody nose. documented as of this encounter (statuses as of 11/11/2023) Medications Medication Sig Dispensed Refills Start Date [...] 08/27/2023 Active Vitamin D (Ergocalciferol) 1.25 MG (75346 UT) Oral Capsule (Drisdol) TAKE ONE CAPSULE [...] as of this encounter (statuses as of 11/11/2023) Active Problems Problem Noted Date Diagnosed Date [...] as of this encounter (statuses as of 11/11/2023) Resolved Problems Problem Noted Date Diagnosed Date [...] as of this encounter (statuses as of 11/11/2023) Immunizations Name Administration Dates Next Due COVID-19 [...] Telephone Encounter - Shayna Talley RN - 11/11/2023 11:18 AM EDT Can discuss at his appt on 11/14/23 or he can ask the doctor at the hospital to write this * Telephone Encounter - Deb Calderón OSA - 11/11/2023 8:51 AM EDT Type of letter requested: Work excuse Does the letter need to provide any specific information: Patient is currently in the hospital at [facility] for sclerosis of the liver and gout - He needs the letter to state he will be out of work for 2 weeks - dates are 11/03-11-06 and 11/09-11/13 and will return to work on . Would you like letter faxed or picked up?: Send in My G Fax number: Number to be called when ready to be picked up: Date needed: soren documented in this encounter Plan of Treatment Upcoming Encounters Date Type Department Care Team (Late st Contact Info) Description 11/14/2023 11:20 AM EDT Office Visit [address] [place] [phone] Cheryl Purvis PA-C [address] [place] [address] [place] [phone] 02/03/2024 8:30 AM EST Office Visit [address] [place] [phone] Michelle Borrego DO [address] [place] [address] [place] [phone] Scheduled Procedures Name Priority Associated Diagnoses Date/Ti [...] Power of Attor ricky? No Care Teams Mannequin Refinisher Relationship Specialty Start Date End Date Michelle Borrego DO [address] [place] [address] [place] [id number] PCP - General Internal Medicine 06/07/16 documented as of this encounter
[2023-12-21] MEDS: LORazepam 2 MG/1 ML VIAL IV STA (07:23)
[2023-12-21 07:28] LABS: Basophils # (auto) 0.03 K/uL (0.00-0.20); Basophils % (auto) 0.8 %; Eosinophils # (auto) 0.01 K/uL (0.00-0.50); Eosinophils % (auto) 0.3 %; Hematocrit (blood only) 43.1 % (42.0-52.0); Hemoglobin 14.2 g/dl (14.0-18.0); Immature Granulocytes # (auto) 0.01 K/uL (0.01-0.20); Immature Granulocytes % (auto) 0.3 %; Lymphocytes # (auto) 0.42 K/uL (1.20-3.40); Lymphocytes % (auto) 10.6 %; Mean Corpuscular Hemoglobin 32.9 pg (25.0-34.0); Mean Corpuscular Hgb Conc 32.9 g/dL (32.0-36.0); Mean Platelet Volume 11.6 fL (9.4-12.4); Monocytes # (auto) 0.48 K/uL (0.11-0.59); Monocytes % (auto) 12.1 %; Neutrophils # (auto) 3.02 K/uL (1.40-6.50); Neutrophils % (auto) 75.9 %; Platelet Count 47 K/uL (130-400); RDW Coefficient of Variation 13.1 % (11.5-14.5); RDW Standard Deviation 48.4 fL (36.4-46.3); Red Blood Count 4.31 M/uL (4.70-6.10); White Blood Count 3.97 K/ul (4.8-10.8)
--- NOTE | 2023-12-21 07:41 | CT Scan Report ---
CT OF THE HEAD WITHOUT CONTRAST CLINICAL HISTORY: fall etoh withdrawal COMPARISON STUDY: MRI of the brain November 20, 2022. Head CT November 04, 2023. TECHNIQUE: Helical axial images of the head were obtained without IV contrast. Automated exposure con trol was utilized for the study. A dose lowering technique was utilized adhering to the principles o f ALARA. FINDINGS: No acute intracranial hemorrhage, midline shift or mass effect is present. The ventricular system is unremarkable. The basal cisterns are patent. No extra-axial collections are present. There are no findings to suggest acute dural sinus thrombosis or acute territorial infarct. No significant calvarial abnormalities are present. Visualized portions of the sinuses and mastoid air cells are cammie ar. IMPRESSION: 1. No acute intracranial findings. 2. No calvarial fractures. ACT 112: Negative or not required by law. Electronically signed by: Fidel Krishnamurthy M.D. 12/21/2023 7:40 AM
[2023-12-21 07:44] LABS: BUN Creatinine Ratio 12.2 (10-20); Calcium 7.8 mg/dl (8.6-10.3); Est GFR (Non-African American) 99.2 ml/min; Potassium 3.3 mmol/L (3.5-5.1)
[2023-12-21 07:49] LABS: Albumin Globulin Ratio 0.9 (0.9-2); Albumin Level 3.9 gm/dl (3.4-5.0); Bilirubin,Total 3.6 mg/dl (0.2-1.0); Globulin 4.4 gm/dl (2.5-4.0); Magnesium 0.9 mg/dl (1.7-2.4); Total Protein 8.3 gm/dl (6.0-8.3)
[2023-12-21 07:51] LABS: Troponin I High Sensitivity 11.5 pg/ml (0-20)
[2023-12-21 07:54] LABS: INR 1.4 (0.9-1.1); Partial Thromboplastin Ratio 1.1; Partial Thromboplastin Time 29 Seconds (21-31); Prothrombin Time 14.3 Seconds (9.0-12.0)
--- NOTE | 2023-12-21 07:55 | CT Scan Report ---
CT OF THE CERVICAL SPINE WITHOUT CONTRAST CLINICAL HISTORY: fall etoh withdrawal COMPARISON STUDY: Cervical spine CT August 01, 2023. TECHNIQUE: Helical axial images of the cervical spine were obtained without IV contrast. Sagittal a nd coronal reconstructions were viewed. Automated exposure control was utilized for the study. A do se lowering technique was utilized adhering to the principles of ALARA. FINDINGS: Alignment of the cervical spine is anatomic. Vertebral body heights are maintained. No acut e cervical spine fracture or subluxation is present. There is no prevertebral edema. Facet joints are intact. Moderate multilevel degenerative disc disease and facet arthrosis is present. The appearanc e of the cervical spine is unchanged. IMPRESSION: No acute cervical spine fracture or subluxation. ACT 112: Negative or not required by law. Electronically signed by: Fidel Krishnamurthy M.D. 12/21/2023 7:53 AM
[2023-12-21 08:01] LABS: Thyroid Stimulating Hormone 1.751 uIu/ml (0.300-4.500)
[2023-12-21] MEDS: MAGNESIUM SULFATE / D5W 1 GM/100 ML BAG IV SCH (08:03)
[2023-12-21] MEDS: MULTI-VITAMIN INFUSION 10 ML, THIAMINE HCL 100 MG, FOLIC ACID 1 MG in SODIUM CHLORIDE 0... IV ONE (08:15)
--- NOTE | 2023-12-21 08:21 | Emergency Department Note ---
History of Present Illness General Chief complaint: Alcohol Withdrawal Stated complaint: BOTH LEGS NUMB,UNABLE TO WALK Time Seen by Provider: 12/21/23 06:36 Source: patient and family (Father at bedside) History of Present Illness Provider complaint: Alcohol withdrawal Maximum Pain Intensity: 10 48-year-old male alcoholic presents emergency department for withdrawal. Patient states he feels like he is going through withdrawal again. Patient reports he has not had any alcohol to drink in the last 3 days. He does report he recently fell. Home Medications Medication Instructions Recorded Confirmed Type buspirone 5 mg tablet 5 mg PO BID 06/10/18 12/21/23 History nadolol 20 mg tablet 20 mg PO QAM 06/10/18 12/21/23 History ursodiol 300 mg capsule 300 mg PO BID 06/10/18 12/21/23 History zolpidem 5 mg tablet (Ambien) 5 mg PO HS PRN Sleep 06/10/18 12/21/23 History furosemide 20 mg tablet 20 mg PO QAM 11/14/22 12/21/23 History spironolactone 25 mg tablet 25 mg PO QAM 11/14/22 12/21/23 History citalopram 10 mg tablet 10 mg PO QAM 04/09/23 12/21/23 History folic acid 1 mg tablet 1 mg PO QAM #30 tabs 06/06/23 12/21/23 Rx cyanocobalamin (vitamin B-12) 250 250 mcg PO QAM 07/03/23 12/21/23 History mcg tablet (Vitamin B-12) gabapentin 300 mg capsule 300 mg PO TID 07/03/23 12/21/23 History pantoprazole 40 mg tablet,delayed 40 mg PO QAM 08/01/23 12/21/23 History release loperamide 2 mg capsule 2 mg PO Q4H PRN loose stool #30 08/27/23 12/21/23 Rx caps magnesium chloride 64 mg 64 mg PO BID #60 tabs 08/27/23 12/21/23 Rx (magnesium chloride) tablet,delayed release (Mag 64) potassium chloride 20 mEq 20 meq PO QAM #30 tabs 08/27/23 12/21/23 Rx tablet,extended release(part/cryst) calcium carbonate 500 mg-vitamin 1 tab PO BID 11/04/23 12/21/23 History D3 5 mcg (200 unit) tablet (Oyster Shell Calcium-Vitamin D3) ergocalciferol (vitamin D2) 1,250 1,250 mcg PO WK 11/04/23 12/21/23 History mcg (50,000 unit) capsule Allergies Allergy/AdvReac Type Severity Reaction Status Date / Time aspirin AdvReac Intermediate PT STATES Verified 11/04/23 21:57 "HAPPENED A CHILD--BLOODY NOSE" Past Med/Surg History Problem List (Updated 12/21/23 @ 08:25 by Padilla Downs MD) Alcohol abuse (Acute) Prolonged QT interval (Acute) Alcoholic cirrhosis Acute hypokalemia (Acute) Nausea & vomiting (Acute) Thrombocytopenia (Acute) Transaminitis (Acute) Hypomagnesemia (Acute) Alcohol withdrawal (Acute) Alcoholic hepatitis (Acute) Alcohol withdrawal (Acute) Esophageal varices Transaminitis (Acute) Medical History Cholecystitis Choledocholithiasis Depression Anxiety UGIB (upper gastrointestinal bleed) Thrombocytopenia Ascites Alcohol abuse Alcoholic cirrhosis of liver Esophageal varices Portal hypertension History of macrocytic anemia History of alcohol abuse Surgical History History of esophagogastroduodenoscopy (EGD) Including procedures for esophageal varices banding History of tonsillectomy Family History Mother Diabetes Father Prostate cancer Other No family history of adverse response to anesthesia Social History Smoking Status: Never smoker Tobacco Type: Smokeless Tobacco (Dip or Chew) Second Hand Exposure: No; Do You Dip or Chew Tobacco: Yes; Hx Alcohol Use: Yes Alcohol type: hard liquor Hx Substance Use: No Preferred Language: Guinean 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 Beliefs That Will Affect Care: None Current Living Situation: Alone Current Living Situation Comment: lives with parents Feels Safe at Home: Yes Assistive Devices: None Physical Exam Vital Signs Vital Signs - 24 hr 12/21/23 06:20 12/21/23 06:29 12/21/23 06:35 Temperature 36.4 C L Temperature Source Temporal Artery Scan Pulse Rate 117 H 99 H 105 H Pulse Rate [Left Finger] Respiratory Rate 22 14 Blood Pressure 151/99 H Blood Pressure [Left Arm] Blood Pressure Mean 116 Blood Pressure Mean [Left Arm] Pulse Oximetry 95 95 Oxygen Delivery Method Room Air Room Air Sepsis Recent Fever Within 48 Hours No Sepsis New/Unexplained Change in Mental Status No Sepsis Action Taken by Nursing No Action Required 12/21/23 07:37 Temperature 37.0 C Temperature Source Oral Pulse Rate Pulse Rate [Left Finger] 84 Respiratory Rate 20 Blood Pressure Blood Pressure [Left Arm] 143/93 H Blood Pressure Mean Blood Pressure Mean [Left Arm] 109 Pulse Oximetry 98 Oxygen Delivery Method Sepsis Recent Fever Within 48 Hours Sepsis New/Unexplained Change in Mental Status Sepsis Action Taken by Nursing Physical Exam HENT: Exam performed. - Head: Normocephalic and atraumatic. EYES: Conjunctivae and EOM are normal. Pupils are equal, round, and reactive to light. Right eye exhibits no discharge. Left eye exhibits no discharge. No scleral icterus. NECK: Normal range of motion. Neck supple. No JVD present. No spinous process tenderness present. CV: Tachycardic rate, regular rhythm, normal heart sounds and intact distal pulses. There is no peripheral edema. Palpable radial pulses bue. PULM/CHEST: Effort normal and breath sounds normal. No respiratory distress. No stridor. He has no wheezes. He has no rales. ABD: The abdomen is soft. There is no tenderness. There is no rebound, no guarding NEURO: He is alert and oriented to person, place, and time. Patient is tremulous. He has normal strength. No cranial nerve deficit or sensory deficit.GCS eye subscore is 4. GCS verbal subscore is 5. GCS motor subscore is 6. Cerebellar tests wnl. Course Course 0636: The patient was evaluated in room B9. A complete history and physical exam was performed Cardiac monitoring: An order was placed for continuous cardiac monitoring. The monitor shows a rate of 110 with sinus rhythm interpreted by me Patient given Ativan 2 mg IV for his tremor and most likely alcohol withdrawal. Patient has a long history of alcohol withdrawal. 0822: Vital signs stable. Labs show a white blood cell count of 3.97 hemoglobin 14.2. Potassium 3.3. Magnesium 0.9. Patient's alcohol was 10.8. Imaging negative. Magnesium repletion started in the emergency department. Patient given banana bag. Patient be admitted to the [facility] hospitalist team. Administered Medications Multivitamins 10 ml/ Thiamine HCl 100 mg/ Folic Acid 1 mg/Sodium Chloride 1,011.2 mls @ 500 mls/hr IV .Q2H2M ONE Stop: 12/21/23 09:56 Last Admin: 12/21/23 08:15 Dose: 500 mls/hr Documented By: LOIS Discontinued Medications Magnesium Sulfate/Dextrose (Magnesium Sulfate / D5w) 1 gm in 100 mls @ 100 mls/hr IV Q1H LANDRY Stop: 12/21/23 09:54 Last Admin: 12/21/23 08:03 Dose: 100 mls/hr Documented By: LOIS Lorazepam (Lorazepam 2 Mg/1 Ml Vial) 2 mg IV NOW STA Stop: 12/21/23 07:18 Last Admin: 12/21/23 07:23 Dose: 2 mg Documented By: LOIS Medical Decision Making Medical Records Attestation: I reviewed the patient's medical records. External medical records reviewed. Patient has long history of alcoholism and alcohol withdrawal. Laboratory Data Attestation: I reviewed the patient's lab results. 12/21/23 06:36 12/21/23 06:36 Lab Results 12/21/23 Range/Units 06:36 WBC 3.97 L (4.8-10.8) K/ul RBC 4.31 L (4.70-6.10) M/uL Hgb 14.2 (14.0-18.0) g/dl Hct 43.1 (42.0-52.0) % MCV 100.0 (80.0-100.0) fL MCH 32.9 (25.0-34.0) pg MCHC 32.9 (32.0-36.0) g/dL RDW Std Deviation 48.4 H (36.4-46.3) fL RDW Coeff of Hang 13.1 (11.5-14.5) % Plt Count 47 L (130-400) K/uL MPV 11.6 (9.4-12.4) fL Immature Gran % (Auto) 0.3 % Neut % (Auto) 75.9 % Lymph % (Auto) 10.6 % Randall % (Auto) 12.1 % Eos % (Auto) 0.3 % Baso % (Auto) 0.8 % Neut # (Auto) 3.02 (1.40-6.50) K/uL Lymph # (Auto) 0.42 L (1.20-3.40) K/uL Randall # (Auto) 0.48 (0.11-0.59) K/uL Eos # (Auto) 0.01 (0.00-0.50) K/uL Baso # (Auto) 0.03 (0.00-0.20) K/uL Immature Gran # (Auto) 0.01 (0.01-0.20) K/uL PT 14.3 H (9.0-12.0) Seconds INR 1.4 H (0.9-1.1) APTT 29 (21-31) Seconds PTT Ratio 1.1 Sodium 140 (136-145) mmol/L Potassium 3.3 L (3.5-5.1) mmol/L Chloride 96 L (98-107) mmol/L Carbon Dioxide 20 L (21-32) mmol/L Anion Gap 24 H (3-11) BUN 11 (6-23) mg/dl Creatinine 0.90 (0.6-1.4) mg/dl Est Cr Clr Drug Dosing 95.0 ml/min Est GFR ( Amer) 115.0 ml/min Est GFR (Non-Af Amer) 99.2 ml/min BUN/Creatinine Ratio 12.2 (10-20) Glucose 134 H (70-99(Fasting)) mg/dl Calcium 7.8 L (8.6-10.3) mg/dl Magnesium 0.9 L* (1.7-2.4) mg/dl Total Bilirubin 3.6 H (0.2-1.0) mg/dl AST 189 H (13-39) U/L ALT 76 H (7-52) U/L Alkaline Phosphatase 73 (34-104) U/L Ammonia 70.0 (18-72) umol/L Troponin I High Sens 11.5 (0-20) pg/ml Total Protein 8.3 (6.0-8.3) gm/dl Albumin 3.9 (3.4-5.0) gm/dl Globulin 4.4 H (2.5-4.0) gm/dl Albumin/Globulin Ratio 0.9 (0.9-2) Lipase 121 H (11-82) U/L TSH 1.751 (0.300-4.500) uIu/ml Ethyl Alcohol mg/dL 10.8 H (<10.0) mg/dl Imaging Data Radiologist's Impression: Cervical Spine CT 12/21/23 07:10 CT OF THE CERVICAL SPINE WITHOUT CONTRAST CLINICAL HISTORY: fall etoh withdrawal COMPARISON STUDY: Cervical spine CT August 01, 2023. TECHNIQUE: Helical axial images of the cervical spine were obtained without IV contrast. Sagittal and coronal reconstructions were viewed. Automated exposure control was utilized for the study. A dose lowering technique was utilized adhering to the principles of ALARA. FINDINGS: Alignment of the cervical spine is anatomic. Vertebral body heights are maintained. No acute cervical spine fracture or subluxation is present. There is no prevertebral edema. Facet joints are intact. Moderate multilevel degenerative disc disease and facet arthrosis is present. The appearance of the cervical spine is unchanged. IMPRESSION: No acute cervical spine fracture or subluxation. ACT 112: Negative or not required by law. Electronically signed by: Fidel Krishnamurthy M.D. 12/21/2023 7:[address] 12/21/23 07:10 CT OF THE HEAD WITHOUT CONTRAST CLINICAL HISTORY: fall etoh withdrawal COMPARISON STUDY: MRI of the brain November 20, 2022. Head CT November 04, 2023. TECHNIQUE: Helical axial images of the head were obtained without IV contrast. Automated exposure control was utilized for the study. A dose lowering technique was utilized adhering to the principles of ALARA. FINDINGS: No acute intracranial hemorrhage, midline shift or mass effect is present. The ventricular system is unremarkable. The basal cisterns are patent. No extra-axial collections are present. There are no findings to suggest acute dural sinus thrombosis or acute territorial infarct. No significant calvarial abnormalities are present. Visualized portions of the sinuses and mastoid air cells are clear. IMPRESSION: 1. No acute intracranial findings. 2. No calvarial fractures. ACT 112: Negative or not required by law. Electronically signed by: Fidel Krishnamurthy M.D. 12/21/2023 7:40 AM ECG Data Attestation: I personally reviewed and interpreted this ECG as follows: Rate (beats per minute): 109 Rhythm: + sinus tachycardia ECG Intervals/blocks: + Normal QRS, + Normal IN and + Normal QT-c ECG ST segments: + Normal ST segments [facility] Narrative 0636: The patient was evaluated in room B9. A complete history and physical exam was performed Cardiac monitoring: An order was placed for continuous cardiac monitoring. The monitor shows a rate of 110 with sinus rhythm interpreted by me Patient given Ativan 2 mg IV for his tremor and most likely alcohol withdrawal. Patient has a long history of alcohol withdrawal. 08: Vital signs stable. Labs show a white blood cell count of 3.97 hemoglobin 14.2. Potassium 3.3. Magnesium 0.9. Patient's alcohol was 10.8. Imaging negative. Magnesium repletion started in the emergency department. Patient given banana bag. Patient be admitted to the [facility] hospitalist team. Impression & Plan Alcohol withdrawal, Hypomagnesemia Discharge Plan Visit Data Chief Complaint: Alcohol Withdrawal Stated Complaint: BOTH LEGS NUMB,UNABLE TO WALK ED Provider: Padilla Downs Discharge Problem: Alcohol withdrawal, Hypomagnesemia Patient Disposition: Admitted As Inpatient Forms Stand Alone Forms: [facility], Suicide Prevention Resources Prescriptions Prescriptions: No Action buspirone 5 mg Tablet 5 mg PO BID nadolol 20 mg Tablet 20 mg PO QAM ursodiol 300 mg Capsule 300 mg PO BID zolpidem [Ambien] 5 mg Tablet 5 mg PO HS PRN (Reason: Sleep) spironolactone 25 mg tablet 25 mg PO QAM furosemide 20 mg tablet 20 mg PO QAM citalopram 10 mg tablet 10 mg PO QAM pantoprazole 40 mg tablet,delayed release (DR/EC) 40 mg PO QAM magnesium chloride [Mag 64] 64 mg Tablet,Delayed Release (Dr/Ec) 64 mg PO BID Qty: 60 0RF potassium chloride 20 mEq Tablet,Er Particles/Crystals 20 meq PO QAM Qty: 30 0RF loperamide 2 mg Capsule 2 mg PO Q4H PRN (Reason: loose stool) Qty: 30 0RF calcium carbonate-vitamin D3 [Oyster Shell Calcium-Vit D3] 500 mg-5 mcg (200 unit) Tablet 1 tab PO BID ergocalciferol (vitamin D2) 1,250 mcg (50,000 unit) capsule 1,250 mcg PO WK Rx Instructions: MONDAYS folic acid 1 mg Tablet 1 mg PO QAM Qty: 30 0RF gabapentin 300 mg capsule 300 mg PO TID cyanocobalamin (vitamin B-12) [Vitamin B-12] 250 mcg tablet 250 mcg PO QAM Referrals Referrals: Michelle Borrego DO [Primary Care Provider] -
--- NOTE | 2023-12-21 08:53 | History & Physical Report ---
Date of Service December 21, 2023 Assessment & Plan (1) Alcohol abuse: (2) Alcoholic cirrhosis: (3) Alcohol withdrawal: Plan: (1) Alcohol withdrawal: Plan Pt is a 48-year-old male with past medical history significant for pancreatic cyst, secondary esophageal varices without bleeding, alcoholic cirrhosis of liver with ascites, chronic cholecystitis, macrocytic anemia, coagulopathy, history of alcohol withdrawal seizures who presents with alcoholism and request for detox. Patient states he is drinking a pint of tequila daily. Alcohol withdrawal History of alcohol withdrawal seizures Alcohol withdrawal protocol including Librium taper, Ativan as needed Monitor closely Hypomagnesemia Magnesium 0.9 IV magnesium given Hypokalemia Oral replacements Elevated LFTs, chronic cholecystitis Liver cirrhosis Esophageal varices History of ascites Check liver ultrasound Monitor LFTs Continue Nadolol Hold Lasix, spironolactone for now Mild lipase elevation Denies abdominal pain CT abdomen pelvis: No acute pancreatitis IV LR ordered Monitor Thrombocytopenia Platelets 47K Baseline 150 Acute alcoholism and liver cirrhosis Monitor Anemia Hgb 14 monitor Anxiety Continue buspirone and citalopram Chronic cholecystitis On ursodiol History of Present Illness Chief Complaint: Shakiness, alcohol withdrawal symptoms as per patient Primary Care Provider: Michelle Borrego, 48-year-old male with history of alcoholism, liver cirrhosis, etc. presenting with alcohol withdrawal symptoms which started today. Patient was admitted to [facility] last month for alcohol withdrawal. Patient reports he still drinks at least half a gallon of tequila per day. Last drink was 3 days ago. He started to have tremors and anxiety today prompting him to return to the ER for management of alcohol withdrawal symptoms. On exam, patient states he feels a bit better compared to earlier. No active tremors, anxiety, confusion, sweating. He denies having abdominal pain, nausea vomiting. No other new symptoms Allergies Allergy/AdvReac Type Severity Reaction Status Date / Time aspirin AdvReac Intermediate PT STATES Verified 11/04/23 21:57 "HAPPENED A CHILD--BLOODY NOSE" Home Medications Medication Instructions Recorded Confirmed Type buspirone 5 mg tablet 5 mg PO BID 06/10/18 12/21/23 History nadolol 20 mg tablet 20 mg PO QAM 06/10/18 12/21/23 History ursodiol 300 mg capsule 300 mg PO BID 06/10/18 12/21/23 History zolpidem 5 mg tablet (Ambien) 5 mg PO HS PRN Sleep 06/10/18 12/21/23 History furosemide 20 mg tablet 20 mg PO QAM 11/14/22 12/21/23 History spironolactone 25 mg tablet 25 mg PO QAM 11/14/22 12/21/23 History citalopram 10 mg tablet 10 mg PO QAM 04/09/23 12/21/23 History folic acid 1 mg tablet 1 mg PO QAM #30 tabs 06/06/23 12/21/23 Rx cyanocobalamin (vitamin B-12) 250 250 mcg PO QAM 07/03/23 12/21/23 History mcg tablet (Vitamin B-12) gabapentin 300 mg capsule 300 mg PO TID 07/03/23 12/21/23 History pantoprazole 40 mg tablet,delayed 40 mg PO QAM 08/01/23 12/21/23 History release loperamide 2 mg capsule 2 mg PO Q4H PRN loose stool #30 08/27/23 12/21/23 Rx caps magnesium chloride 64 mg 64 mg PO BID #60 tabs 08/27/23 12/21/23 Rx (magnesium chloride) tablet,delayed release (Mag 64) potassium chloride 20 mEq 20 meq PO QAM #30 tabs 08/27/23 12/21/23 Rx tablet,extended release(part/cryst) calcium carbonate 500 mg-vitamin 1 tab PO BID 11/04/23 12/21/23 History D3 5 mcg (200 unit) tablet (Oyster Shell Calcium-Vitamin D3) ergocalciferol (vitamin D2) 1,250 1,250 mcg PO WK 11/04/23 12/21/23 History mcg (50,000 unit) capsule Past Med/Surg History Problem List (Updated 12/21/23 @ 08:25 by Padilla Downs MD) Alcohol abuse (Acute) Prolonged QT interval (Acute) Alcoholic cirrhosis Acute hypokalemia (Acute) Nausea & vomiting (Acute) Thrombocytopenia (Acute) Transaminitis (Acute) Hypomagnesemia (Acute) Alcohol withdrawal (Acute) Alcoholic hepatitis (Acute) Alcohol withdrawal (Acute) Esophageal varices Transaminitis (Acute) Medical History Cholecystitis Choledocholithiasis Depression Anxiety UGIB (upper gastrointestinal bleed) Thrombocytopenia Ascites Alcohol abuse Alcoholic cirrhosis of liver Esophageal varices Portal hypertension History of macrocytic anemia History of alcohol abuse Surgical History History of esophagogastroduodenoscopy (EGD) Including procedures for esophageal varices banding History of tonsillectomy Family History Mother Diabetes Father Prostate cancer Other No family history of adverse response to anesthesia Social History Smoking Status: Never smoker Tobacco Type: Smokeless Tobacco (Dip or Chew) Second Hand Exposure: No; Do You Dip or Chew Tobacco: Yes; Hx Alcohol Use: Yes Alcohol type: hard liquor Hx Substance Use: No Preferred Language: Uzbek Communication Ability: Effective Quality Compliance Manager Required: No Beliefs That Will Affect Care: None Current Living Situation: Alone Current Living Situation Comment: lives with parents Other Information That Helps Us Care for You: No Feels Safe at Home: Yes Safety Concerns: Feels Safe At This Time Assistive Devices: None Review of Systems Review of Systems: all noted and negative except for above Physical Exam Physical Exam: General- oriented x 3, not in distress, speaks in sentences with no effort or accessory muscle use Eyes- anicteric Neck- no JVD Lungs- clear breath sounds bilaterally, No crackles or wheezing Heart- normal rate, regular rhythm; no murmurs Abdomen- normal bowel sounds, nondistended, soft, nontender Extremities- no pretibial edema, no calf tenderness no tremors Neuro- alert, oriented x 3; no gross focal neurologic deficits Skin- warm & dry Results & Data Results & Data Vital Signs (Past 12 Hours) Vital Signs Temp Pulse Pulse Resp BP BP Pulse Ox 12/21/23 07:37 37.0 C 84 20 143/93 H 98 12/21/23 06:35 105 H 12/21/23 06:29 99 H 14 95 12/21/23 06:20 36.4 C L 117 H 22 151/99 H 95 O2 Del Method 12/21/23 07:37 12/21/23 06:35 12/21/23 06:29 Room Air 12/21/23 06:20 Room Air all noted and reviewed including below Code Status & VTE Plan VTE Prophylaxis Plan VTE Prophylaxis will be ordered: Yes (2) Alcoholic cirrhosis Ascites presence: unspecified Qualified Code(s): K70.30 - Alcoholic cirrhosis of liver without ascites
--- NOTE | 2023-12-21 09:51 | CT Scan Report ---
CT OF THE ABDOMEN AND PELVIS WITHOUT CONTRAST CLINICAL HISTORY: Possible acute pancreatitis. COMPARISON STUDY: CT of the abdomen and pelvis April 17, 2023. TECHNIQUE: Axial images of the abdomen and pelvis were obtained without IV contrast. Images were revi ewed in the axial, sagittal, and coronal planes. Automated exposure control was utilized for the priscilla dy. A dose lowering technique was utilized adhering to the principles of ALARA. FINDINGS: Lung bases are unremarkable. No pneumatosis, free air or portal venous gas is present. A 7 mm left lower pole renal calculus is present. There are no ureteral calculi and there is no hydroneph rosis. There is a punctate right renal calculus. Evaluation of the abdomen and pelvis is suboptimal o n this unenhanced examination. There is a gallstone within the gallbladder. The gallbladder is not di stended. Severe hepatic steatosis is noted. Liver is heterogeneous with lobulated contour consistent with cirrhosis. Sensitivity is diminished on unenhanced exam but no hepatic lesions are identified. T he spleen is mildly enlarged. Left upper quadrant varices are again noted. There is no ascites. Unenh anced images of the adrenal glands and pancreas are unremarkable. There is no peripancreatic fluid or infiltration. No CT evidence for acute pancreatitis. Small fat-containing umbilical hernia. No evide nce for a bowel obstruction. There is no lymphadenopathy. There are no fluid collections. Bilateral s acroiliac joint ankylosis with anterior osteophytosis of the lower thoracic and lumbar spine is again noted. IMPRESSION: 1. No CT evidence for acute pancreatitis. 2. Cholelithiasis. No evidence for acute cholecystitis. 3. Cirrhosis with evidence for portal hypertension, as above. 4. 7 mm left renal calculus. Punctate right renal calculus. No ureteral calculi. No hydronephrosis. ACT 112: Negative or not required by law. Electronically signed by: Fidel Krishnamurthy M.D. 12/21/2023 9:49 AM
[2023-12-21] MEDS: MAGNESIUM SULFATE IV SCH (10:45)
[2023-12-21] MEDS: SODIUM CHLORIDE 0.9% IV SCH (10:45)
[2023-12-21] MEDS ORDERED: Ativan IV Alcohol Withdrawal--Active Protocol IV PRN (11:01)
[2023-12-21] MEDS ORDERED: PROMETHAZINE 12.5 MG/50.5 ML BAG IV PRN (11:01)
[2023-12-21] MEDS ORDERED: chlordiazePOXIDE ALCOHOL WITHDRAWL 25MG PO STA (11:01)
[2023-12-21] MEDS ORDERED: LORazepam 2 MG/1 ML VIAL IV PRN (11:01)
--- NOTE | 2023-12-21 11:12 | Ultrasound Report ---
US liver CLINICAL HISTORY: elevated lft COMPARISON STUDY: Right upper quadrant ultrasound July 23, 2023. CT of the abdomen and pelvis perfo rmed earlier today. FINDINGS: This exam is significantly compromised by suboptimal penetration. Hepatic echogenicity is s ignificantly increased. Nodular contour of the liver surface is noted. No hepatic lesions are identif ied although sensitivity is diminished on this exam. Main portal vein is grossly patent with appropri ately directed flow. There is no definite gallbladder wall thickening. A gallstone within the gallbla dder is noted. No sonographic Curry sign was elicited. Pancreas is obscured. There is no right hydro nephrosis. IMPRESSION: 1. Hepatic steatosis and cirrhosis. Exam compromised by suboptimal penetration. 2. Cholelithiasis. No sonographic evidence for acute cholecystitis. 3. Obscured pancreas. ACT 112: Negative or not required by law. Electronically signed by: Fidel Krishnamurthy M.D. 12/21/2023 11:10 AM
[2023-12-21] MEDS ORDERED: POTASSIUM CHLORIDE CRTAB 20 MEQ TABCR PO SCH (11:15)
[2023-12-21] MEDS: busPIRone 5 MG TAB PO SCH (12:09)
[2023-12-21] MEDS: nadoloL 40 MG TAB PO SCH (12:10)
[2023-12-21] MEDS: CALCIUM 600MG + VIT D 400 IU TAB PO SCH (12:10)
[2023-12-21] MEDS: PANTOprazole 40 MG TAB PO SCH (12:11)
[2023-12-21] MEDS: CYANOCOBALAMIN (B-12) 500 MCG TABLET PO SCH (12:11)
[2023-12-21] MEDS: ursodioL 300 MG CAP PO SCH (12:12)
[2023-12-21] MEDS: POTASSIUM CHLORIDE CRTAB 20 MEQ TABCR PO SCH (12:12)
[2023-12-21] MEDS: CITALOPRAM 20 MG TAB PO SCH (12:13)
[2023-12-21] MEDS: chlordiazePOXIDE HCl 25 MG CAP PO SCH (12:14)
[2023-12-21] MEDS: FOLIC ACID 1 MG in SYRINGE 9.8 ML IV SCH (12:15)
[2023-12-21] MEDS: THIAMINE HCL 100 MG in SYRINGE 9 ML IV SCH (12:15)
[2023-12-21] MEDS: LORazepam 2 MG/1 ML VIAL IV PRN (12:19)
--- NOTE | 2023-12-21 12:25 | Electrocardiogram Report ---
Test Reason : Blood Pressure : */* mmHG Vent. Rate : 109 BPM Atrial Rate : 109 BPM P-R Int : 124 ms QRS Dur : 96 ms QT Int : 362 ms P-R-T Axes : 55 77 48 degrees QTcB Int : 487 ms Sinus tachycardia Abnormal ECG When compared with ECG of 05-Nov-2023 05:19, Vent. rate has increased by 40 bpm T wave inversion more evident in Anterior leads Confirmed by Michael Norman ([id number]) on 12/21/2023 12:25:16 PM Referred By: Confirmed By: Michael Norman
[2023-12-21 13:42] LABS: BUN Creatinine Ratio 16.2 (10-20); Creatinine Clr Calc Pharmacy 125.7 ml/min; Est GFR (African American) 129.1 ml/min; Est GFR (Non-African American) 111.4 ml/min; Phosphorus 2.5 mg/dl (2.5-4.9); Potassium 3.2 mmol/L (3.5-5.1)
[2023-12-21] MEDS: LACTATED RINGER'S 1,000 ML IV SCH (13:58)
[2023-12-21] MEDS: POTASSIUM CHLORIDE CRTAB 20 MEQ TABCR PO STA (15:16)
[2023-12-21] MEDS: ACETAMINOPHEN 325 MG TAB PO PRN (19:17)
[2023-12-22 01:55] LABS: Adenovirus F 40/41 PCR Not Detected (NotDetected); Astrovirus PCR Not Detected (NotDetected); Campylobacter PCR Not Detected (NotDetected); Cryptosporidium PCR Not Detected (NotDetected); Cyclospora cayetanensis PCR Not Detected (NotDetected); Entamoeba histolytica PCR Not Detected (NotDetected); Enteroaggregative E.coli(EAEC) Not Detected (NotDetected); Enteropathogenic E.coli (EPEC) Not Detected (NotDetected); Enterotoxigenic E.coli (ETEC) Not Detected (NotDetected); Giardia lamblia PCR Not Detected (NotDetected); Norovirus GI/GII PCR Not Detected (NotDetected); Plesiomonas shigelloides PCR Not Detected (NotDetected); Rotavirus A PCR Not Detected (NotDetected); Salmonella PCR Not Detected (NotDetected); Sapovirus PCR Not Detected (NotDetected); Shiga-like Toxin E.coli (STEC) Not Detected (NotDetected); Shigella/Enteroinvasive E.coli Not Detected (NotDetected); Vibrio cholerae PCR Not Detected (NotDetected); Vibrio species PCR Not Detected (NotDetected); Yersinia enterocolitica PCR Not Detected (NotDetected)
[2023-12-22 02:10] LABS: Cdiff Toxin B Gene (2yr or >) Positive Cdiff Gene (Neg)
[2023-12-22 02:12] LABS: Cdiff Antigen Positive; Cdiff Toxin A+B Negative Cdiff Toxin (Negative)
[2023-12-22] MEDS: LORazepam 2 MG/1 ML VIAL IV PRN (03:25)
[2023-12-22 07:40] LABS: INR 1.4 (0.9-1.1); Prothrombin Time 14.7 Seconds (9.0-12.0)
[2023-12-22 07:43] LABS: Albumin Globulin Ratio 0.9 (0.9-2); BUN Creatinine Ratio 17.9 (10-20); Bilirubin Direct 1.1 mg/dl (0-0.2); Calcium 7.4 mg/dl (8.6-10.3); Creatinine Clr Calc Pharmacy 152.7 ml/min; Est GFR (African American) 139.8 ml/min; Est GFR (Non-African American) 120.6 ml/min; Globulin 3.5 gm/dl (2.5-4.0); Potassium 3.6 mmol/L (3.5-5.1); Total Protein 6.5 gm/dl (6.0-8.3)
[2023-12-22] MEDS: ERGOCALCIFEROL 1250 MCG (50,000 UNITS) CAP PO SCH (09:00)
[2023-12-22 10:15] LABS: Basophils # (auto) 0.06 K/uL (0.00-0.20); Basophils % (auto) 1.8 %; Eosinophils # (auto) 0.15 K/uL (0.00-0.50); Eosinophils % (auto) 4.4 %; Hematocrit (blood only) 36.2 % (42.0-52.0); Hemoglobin 12.4 g/dl (14.0-18.0); Immature Granulocytes # (auto) 0.01 K/uL (0.01-0.20); Immature Granulocytes % (auto) 0.3 %; Lymphocytes # (auto) 0.84 K/uL (1.20-3.40); Lymphocytes % (auto) 24.6 %; Mean Corpuscular Hemoglobin 33.9 pg (25.0-34.0); Mean Corpuscular Hgb Conc 34.3 g/dL (32.0-36.0); Mean Corpuscular Volume 98.9 fL (80.0-100.0); Monocytes # (auto) 0.41 K/uL (0.11-0.59); Neutrophils # (auto) 1.95 K/uL (1.40-6.50); Neutrophils % (auto) 56.9 %; Platelet Count 35 K/uL (130-400); RDW Coefficient of Variation 12.7 % (11.5-14.5); RDW Standard Deviation 46.5 fL (36.4-46.3); Red Blood Count 3.66 M/uL (4.70-6.10); White Blood Count 3.42 K/ul (4.8-10.8)
[2023-12-22] MEDS: CHERRY SYRUP 5 ML UDP PO SCH (11:40)
[2023-12-22] MEDS: VANCOMYCIN HCL 125 MG/2.5ML SOLN PO SCH (11:40)
[2023-12-22] MEDS: chlordiazePOXIDE HCl 25 MG CAP PO SCH (13:47)
[2023-12-22] MEDS ORDERED: Nursing to Pharmacy Communication SCH (16:15)
--- NOTE | 2023-12-22 18:51 | Hospitalist Progress Note ---
Date of Service December 22, 2023 Assessment & Plan (1) Alcohol abuse: (2) Alcoholic cirrhosis: (3) Alcohol withdrawal: Plan: (1) Alcohol withdrawal: Plan Pt is a 48-year-old male with past medical history significant for pancreatic cyst, secondary esophageal varices without bleeding, alcoholic cirrhosis of liver with ascites, chronic cholecystitis, macrocytic anemia, coagulopathy, history of alcohol withdrawal seizures who presents with alcoholism and request for detox. Patient states he is drinking a pint of tequila daily. Alcohol withdrawal History of alcohol withdrawal seizures Alcohol withdrawal protocol including Librium taper, Ativan as needed Monitor closely 12/21 Stable overall Continue Librium protocol Hypomagnesemia Magnesium 0.9 IV magnesium given Resolved Hypokalemia Oral replacements Elevated LFTs, chronic cholecystitis Liver cirrhosis Esophageal varices History of ascites Monitor LFTs Continue Nadolol Hold Lasix, spironolactone for now 12/21 Liver US: 1. Hepatic steatosis and cirrhosis. Exam compromised by suboptimal penetration. 2. Cholelithiasis. No sonographic evidence for acute cholecystitis. 3. Obscured pancreas. LFTs 102/46/57 INR 1.4 monitor Mild lipase elevation Denies abdominal pain CT abdomen pelvis: No acute pancreatitis IV LR ordered Monitor Thrombocytopenia Platelets 47K--> 35k Baseline 150 likely from alcoholism and liver cirrhosis no bleeding monitor Anemia Hgb 14--> 12 monitor Anxiety Continue buspirone and citalopram Chronic cholecystitis On ursodiol DVT prophylaxis SCDs Admission and Anticipated Discharge Date Admission Date: December 21, 2023 Subjective Seen resting in bed, sitting up, comfortable not in distress States he feels okay overall Still having some tremors, anxiety, denies hallucinations or confusion Reports over 4-5 loose stools, mild abdominal discomfort, no nausea vomiting, fevers or chills No bleeding No other new symptoms Review of Systems Review of Systems: all noted and negative except for above Physical Exam Physical Exam: General- oriented x 3, not in distress, speaks in sentences with no effort or accessory muscle use Eyes- anicteric Neck- no JVD Lungs- clear breath sounds bilaterally, No crackles or wheezing Heart- normal rate, regular rhythm; no murmurs Abdomen- normal bowel sounds, nondistended, soft, nontender Extremities- no pretibial edema, no calf tenderness Mild hand tremors Neuro- alert, oriented x 3; no gross focal neurologic deficits Skin- warm & dry Results & Data Results & Data Vital Signs (Past 12 Hours) Vital Signs Temp Pulse Pulse Resp BP Pulse Ox O2 Del Method 12/22/23 17:43 70 12/22/23 15:45 36.7 C 56 L 18 129/75 96 Room Air 12/22/23 11:22 36.8 C 59 L 16 133/78 97 Room Air 12/22/23 10:31 60 12/22/23 07:50 36.8 C 63 18 131/84 97 Room Air all noted and reviewed including below (2) Alcoholic cirrhosis Ascites presence: unspecified Qualified Code(s): K70.30 - Alcoholic cirrhosis of liver without ascites
[2023-12-22 19:14] LABS: Magnesium 1.5 mg/dl (1.7-2.4)
[2023-12-22] MEDS: MAGNESIUM SULFATE / D5W 1 GM/100 ML BAG IV ONE (22:10)
[2023-12-22] MEDS ORDERED: LORazepam 0.5 MG TAB PO PRN (22:22)
[2023-12-22] MEDS: MELATONIN 3 MG TAB PO PRN (22:34)
[2023-12-23 06:38] LABS: Basophils # (auto) 0.02 K/uL (0.00-0.20); Basophils % (auto) 0.9 %; Eosinophils # (auto) 0.08 K/uL (0.00-0.50); Eosinophils % (auto) 3.8 %; Hematocrit (blood only) 34.1 % (42.0-52.0); Immature Granulocytes # (auto) 0.01 K/uL (0.01-0.20); Immature Granulocytes % (auto) 0.5 %; Mean Corpuscular Hemoglobin 33.8 pg (25.0-34.0); Mean Corpuscular Hgb Conc 35.2 g/dL (32.0-36.0); Mean Corpuscular Volume 96.1 fL (80.0-100.0); Mean Platelet Volume 12.4 fL (9.4-12.4); Monocytes # (auto) 0.27 K/uL (0.11-0.59); Monocytes % (auto) 12.7 %; Neutrophils # (auto) 1.04 K/uL (1.40-6.50); Neutrophils % (auto) 49.1 %; Platelet Count 35 K/uL (130-400); RDW Coefficient of Variation 12.4 % (11.5-14.5); RDW Standard Deviation 43.8 fL (36.4-46.3); Red Blood Count 3.55 M/uL (4.70-6.10); White Blood Count 2.12 K/ul (4.8-10.8)
[2023-12-23 06:42] LABS: Albumin Globulin Ratio 0.9 (0.9-2); Albumin Level 2.9 gm/dl (3.4-5.0); BUN Creatinine Ratio 12.3 (10-20); Bilirubin Direct 0.7 mg/dl (0-0.2); Bilirubin,Total 1.9 mg/dl (0.2-1.0); Calcium 7.9 mg/dl (8.6-10.3); Est GFR (African American) 138.8 ml/min; Est GFR (Non-African American) 119.7 ml/min; Globulin 3.3 gm/dl (2.5-4.0); Magnesium 1.4 mg/dl (1.7-2.4); Potassium 3.5 mmol/L (3.5-5.1); Total Protein 6.2 gm/dl (6.0-8.3)
[2023-12-23 06:55] LABS: INR 1.3 (0.9-1.1); Prothrombin Time 13.9 Seconds (9.0-12.0)
[2023-12-23] MEDS: SODIUM CHLORIDE 0.9% IV ONE (09:37)
[2023-12-23] MEDS: MAGNESIUM SULFATE IV ONE (09:37)
--- NOTE | 2023-12-23 14:33 | Hospitalist Progress Note ---
Date of Service December 23, 2023 Assessment & Plan (1) Alcohol abuse: (2) Alcoholic cirrhosis: (3) Alcohol withdrawal: Plan: Pt is a 48-year-old male with past medical history significant for pancreatic cyst, secondary esophageal varices without bleeding, alcoholic cirrhosis of liver with ascites, chronic cholecystitis, macrocytic anemia, coagulopathy, history of alcohol withdrawal seizures who presents with alcoholism and request for detox. Patient states he is drinking a pint of tequila daily. Alcohol withdrawal History of alcohol withdrawal seizures Alcohol withdrawal protocol including Librium taper, Ativan as needed Monitor closely 12/22 LARISA score 6 this morning Continue Librium taper, Ativan as needed Hypomagnesemia Magnesium 1.4 IV magnesium given Hypokalemia Potassium 3.5 Continue potassium supplement Elevated LFTs, chronic cholecystitis Liver cirrhosis Esophageal varices History of ascites liver ultrasound: 1. Hepatic steatosis and cirrhosis. Exam compromised by suboptimal penetration. 2. Cholelithiasis. No sonographic evidence for acute cholecystitis. 3. Obscured pancreas. Seems to be compensated overall LFTs improving, INR 1.3 Continue Nadolol Hold Lasix, spironolactone for nowGiven C. difficile colitis Mild lipase elevation Denies abdominal pain CT abdomen pelvis: No acute pancreatitis IV LR ordered Monitor Thrombocytopenia Platelets 47K--> 35k Baseline 150 Likely secondary toalcoholism and liver cirrhosis Monitor Anemia Hgb 14--> 12, 12 No signs of overt bleeding Continue to monitor Anxiety Continue buspirone and citalopram Chronic cholecystitis On ursodiol Disposition Anticipate discharge to home when medically stable Patient declining alcohol rehab stay Admission and Anticipated Discharge Date Admission Date: December 21, 2023 Subjective Follow-up for alcohol withdrawal, C. difficile colitis, etc. Seen resting in bed, comfortable, not in distress States he feels okay overall Still having some tremors, denies anxiety, hallucinations, confusion, sweats No diarrhea so far today Abdominal pain, nausea vomiting, fevers or chills No other new symptoms Review of Systems Review of Systems: all noted and negative except for above Physical Exam Physical Exam: General- oriented x 3, not in distress, speaks in sentences with no effort or accessory muscle use Eyes- anicteric Neck- no JVD Lungs- clear breath sounds bilaterally,No rales, no crackles no wheezing Heart- normal rate, regular rhythm; no murmurs Abdomen- normal bowel sounds, nondistended, soft, nontender Extremities- no pretibial edema, no calf tenderness Bilateral hands-mild tremors Neuro- alert, oriented x 3; no gross focal neurologic deficits Skin- warm & dry Results & Data Results & Data Vital Signs (Past 12 Hours) Vital Signs Temp Pulse Pulse Resp BP BP Pulse Ox 12/23/23 12:32 51 L 12/23/23 11:20 37.1 C 59 L 14 122/79 99 12/23/23 07:23 36.9 C 50 L 19 129/80 97 12/23/23 02:55 37.1 C 64 18 115/67 98 O2 Del Method 12/23/23 12:32 12/23/23 11:20 Room Air 12/23/23 07:23 Room Air 12/23/23 02:55 Room Air all noted and reviewed including below (2) Alcoholic cirrhosis Ascites presence: unspecified Qualified Code(s): K70.30 - Alcoholic cirrhosis of liver without ascites
[2023-12-24 06:31] LABS: Albumin Level 2.9 gm/dl (3.4-5.0); BUN Creatinine Ratio 6.1 (10-20); Bilirubin Direct 0.5 mg/dl (0-0.2); Bilirubin,Total 1.1 mg/dl (0.2-1.0); Calcium 8.1 mg/dl (8.6-10.3); Creatinine Clr Calc Pharmacy 129.5 ml/min; Est GFR (African American) 130.7 ml/min; Est GFR (Non-African American) 112.7 ml/min; Magnesium 1.3 mg/dl (1.7-2.4); Potassium 3.9 mmol/L (3.5-5.1); Total Protein 5.9 gm/dl (6.0-8.3)
[2023-12-24 06:39] LABS: INR 1.2 (0.9-1.1); Prothrombin Time 13.2 Seconds (9.0-12.0)
[2023-12-24 06:44] LABS: Hematocrit (blood only) 35.8 % (42.0-52.0); Hemoglobin 11.8 g/dl (14.0-18.0); Mean Corpuscular Hemoglobin 33.7 pg (25.0-34.0); Mean Corpuscular Volume 102.3 fL (80.0-100.0); Mean Platelet Volume 11.6 fL (9.4-12.4); Platelet Count 45 K/uL (130-400); RDW Coefficient of Variation 13.2 % (11.5-14.5); RDW Standard Deviation 49.3 fL (36.4-46.3); White Blood Count 1.99 K/ul (4.8-10.8)
[2023-12-24 07:23] LABS: Basophils # (auto) 0.03 K/uL (0.00-0.20); Basophils % (auto) 1.5 %; Eosinophils # (auto) 0.08 K/uL (0.00-0.50); Immature Granulocytes # (auto) 0.01 K/uL (0.01-0.20); Immature Granulocytes % (auto) 0.5 %; Lymphocytes # (auto) 0.59 K/uL (1.20-3.40); Lymphocytes % (auto) 29.6 %; Monocytes # (auto) 0.26 K/uL (0.11-0.59); Monocytes % (auto) 13.1 %; Neutrophils # (auto) 1.02 K/uL (1.40-6.50); Neutrophils % (auto) 51.3 %
[2023-12-24 08:03] LABS: Phosphorus 2.5 mg/dl (2.5-4.9)
[2023-12-24] MEDS: MAGNESIUM SULFATE / D5W 1 GM/100 ML BAG IV SCH (09:24)
--- NOTE | 2023-12-24 12:19 | Hospitalist Progress Note ---
Date of Service December 24, 2023 Assessment & Plan (1) Alcohol abuse: (2) Alcoholic cirrhosis: (3) Alcohol withdrawal: Plan: 48-year-old male with past medical history significant for pancreatic cyst, secondary esophageal varices without bleeding, alcoholic cirrhosis of liver with ascites, chronic cholecystitis, macrocytic anemia, coagulopathy, history of alcohol withdrawal seizures who presents with alcoholism and request for detox. Patient states he is drinking a pint of tequila daily. Alcohol withdrawal History of alcohol withdrawal seizures Continue AWSS Continue librium taper Hypomagnesemia Magnesium 1.3 today IV magnesium 2g ordered Start po mag Hypokalemia Potassium 3.3 on admission K is 3.9 today Continue potassium supplement Elevated LFTs, chronic cholecystitis Liver cirrhosis Esophageal varices History of ascites liver ultrasound: 1. Hepatic steatosis and cirrhosis. Exam compromised by suboptimal penetration. 2. Cholelithiasis. No sonographic evidence for acute cholecystitis. 3. Obscured pancreas. Seems to be compensated overall LFTs improving, INR 1.3 Continue Nadolol Home Lasix, spironolactone on hold for now due to diarrhea Mild lipase elevation Denies abdominal pain CT abdomen pelvis: No acute pancreatitis C. difficile diarrhea Patient reports history of C. difficile colitis, cannot exactly remember when C. difficile toxin negative, C. difficile gene positive Was having diarrhea 5-6 times per day Currently on po vancomycin 125 mg 4 times daily, day #3 Patient reports diarrhea is improving Thrombocytopenia Platelets 45k today Baseline 150 Likely secondary to alcoholism and liver cirrhosis Monitor Anemia Hgb 11.8 today No signs of overt bleeding Continue to monitor Anxiety Continue buspirone and citalopram Chronic cholecystitis On ursodiol Patient declined inpt alcohol rehab Provided counseling He will like to speak to someone from psych team for more info abt resources/outpatient. Psych liason consulted I spent a total of 50 minutes coordinating, documenting and providing care for this patient excluding time spent in performance of separately billed services Admission and Anticipated Discharge Date Admission Date: December 21, 2023 Subjective Patient seen and examined Reports anxiety, generalized weakness Reports diarrhea is improving, getting semiformed Denied abd pain, nausea, vomiting Denied cough, chest pain, SOB Denied depression/SI/HI Physical Exam Constitutional: + well hydrated; no acute distress Eyes: PERRL, conjunctivae normal, anicteric sclerae ENMT: external ear and nose normal, oropharynx normal Respiratory: normal respiratory effort, lungs clear to auscultation Cardiovascular: Rate/Rhythm: regular rhythm and + bradycardic Gastrointestinal (Abdomen): normal bowel sounds, soft, nontender, no hepatosplenomegaly Musculoskeletal: No pedal edema Neurologic: PERRL, EOMI, accommodation nl, no face palsy, no dysarthria +fine tremors on outstretched hands Psychiatric: AOX3 Results & Data Results & Data Vital Signs (Past 12 Hours) Vital Signs Temp Pulse Pulse Resp BP Pulse Ox O2 Del Method 12/24/23 10:58 36.8 C 59 L 16 126/82 97 Room Air 12/24/23 07:00 57 L 12/24/23 07:00 36.8 C 61 16 127/94 97 Room Air 12/24/23 04:17 36.9 C 51 L 18 122/81 97 Room Air Laboratory Results Abnormal lab results 12/24/23 Range/Units 05:31 WBC 1.99 L (4.8-10.8) K/ul RBC 3.50 L (4.70-6.10) M/uL Hgb 11.8 L (14.0-18.0) g/dl Hct 35.8 L (42.0-52.0) % MCV 102.3 H D (80.0-100.0) fL RDW Std Deviation 49.3 H (36.4-46.3) fL Plt Count 45 L (130-400) K/uL Neut # (Auto) 1.02 L (1.40-6.50) K/uL Lymph # (Auto) 0.59 L (1.20-3.40) K/uL PT 13.2 H (9.0-12.0) Seconds INR 1.2 H (0.9-1.1) Chloride 108 H (98-107) mmol/L BUN 4 L (6-23) mg/dl BUN/Creatinine Ratio 6.1 L (10-20) Glucose 129 H (70-99(Fasting)) mg/dl Calcium 8.1 L (8.6-10.3) mg/dl Magnesium 1.3 L (1.7-2.4) mg/dl Total Bilirubin 1.1 H (0.2-1.0) mg/dl Direct Bilirubin 0.5 H (0-0.2) mg/dl AST 125 H (13-39) U/L ALT 55 H (7-52) U/L Total Protein 5.9 L (6.0-8.3) gm/dl Albumin 2.9 L (3.4-5.0) gm/dl (2) Alcoholic cirrhosis Ascites presence: unspecified Qualified Code(s): K70.30 - Alcoholic cirrhosis of liver without ascites
[2023-12-24] MEDS: MAGNESIUM OXIDE 400 MG TAB PO SCH (15:32)
[2023-12-24] MEDS: chlordiazePOXIDE HCl 5 MG CAP PO SCH (18:23)
[2023-12-25 07:44] LABS: Hematocrit (blood only) 35.3 % (42.0-52.0); Hemoglobin 11.5 g/dl (14.0-18.0); Mean Corpuscular Hemoglobin 33.4 pg (25.0-34.0); Mean Corpuscular Hgb Conc 32.6 g/dL (32.0-36.0); Mean Corpuscular Volume 102.6 fL (80.0-100.0); Mean Platelet Volume 11.2 fL (9.4-12.4); Platelet Count 55 K/uL (130-400); RDW Coefficient of Variation 13.5 % (11.5-14.5); RDW Standard Deviation 50.2 fL (36.4-46.3); Red Blood Count 3.44 M/uL (4.70-6.10); White Blood Count 2.51 K/ul (4.8-10.8)
[2023-12-25 08:23] LABS: INR 1.2 (0.9-1.1); Prothrombin Time 13.1 Seconds (9.0-12.0)
[2023-12-25] MEDS: nadoloL 40 MG TAB PO SCH (09:33)
[2023-12-25 09:41] LABS: Calcium 8.6 mg/dl (8.6-10.3); Magnesium 1.4 mg/dl (1.7-2.4)
[2023-12-25 09:47] LABS: BUN Creatinine Ratio 7.1 (10-20); Creatinine Clr Calc Pharmacy 122.1 ml/min; Est GFR (African American) 127.5 ml/min
--- NOTE | 2023-12-25 12:15 | Discharge Summary ---
Date of Service December 25, 2023 Admission HPI Per Admitting Provider 48-year-old male with history of alcoholism, liver cirrhosis, etc. presenting with alcohol withdrawal symptoms which started today. Patient was admitted to [facility] last month for alcohol withdrawal. Patient reports he still drinks at least half a gallon of tequila per day. Last drink was 3 days ago. He started to have tremors and anxiety today prompting him to return to the ER for management of alcohol withdrawal symptoms. On exam, patient states he feels a bit better compared to earlier. No active tremors, anxiety, confusion, sweating. He denies having abdominal pain, nausea vomiting. No other new symptoms Admission Exam Per Admitting Provider General- oriented x 3, not in distress, speaks in sentences with no effort or accessory muscle use Eyes- anicteric Neck- no JVD Lungs- clear breath sounds bilaterally, No crackles or wheezing Heart- normal rate, regular rhythm; no murmurs Abdomen- normal bowel sounds, nondistended, soft, nontender Extremities- no pretibial edema, no calf tenderness no tremors Neuro- alert, oriented x 3; no gross focal neurologic deficits Skin- warm & dry Principal Diagnosis Alcohol withdrawal C diff diarrhea Hypomagnesemia Discharge Exam Constitutional + well hydrated; no acute distress Eyes PERRL, conjunctivae normal, anicteric sclerae ENMT external ear and nose normal, oropharynx normal Respiratory normal respiratory effort, lungs clear to auscultation Cardiovascular Rate/Rhythm: regular rhythm and + bradycardic Gastrointestinal (Abdomen) normal bowel sounds, soft, nontender, no hepatosplenomegaly Musculoskeletal no cyanosis or clubbing, extremities motor strength 5/5 Neurologic PERRL, EOMI, accommodation nl, no face palsy, no dysarthria Discharge Data Allergies Allergy/AdvReac Type Severity Reaction Status Date / Time aspirin AdvReac Intermediate PT STATES Verified 11/04/23 21:57 "HAPPENED A CHILD--BLOODY NOSE" Consultations 12/21/23 08:10 ED Decision to Admit Stat 12/24/23 12:13 Consult Behavioral Health Liaison Routine Ordered Studies 12/21/23 07:10 CT cervical spine wo con Stat CT head/brain wo con Stat 12/21/23 08:52 CT Abd and Pelvis [CT abd pelvis wo con] Stat US liver Routine Hospital Course (1) Alcohol abuse: (2) Alcoholic cirrhosis: (3) Alcohol withdrawal: 48-year-old male with past medical history significant for pancreatic cyst, secondary esophageal varices without bleeding, alcoholic cirrhosis of liver with ascites, chronic cholecystitis, macrocytic anemia, coagulopathy, history of alcohol withdrawal seizures who presents with alcoholism and request for detox. Patient states he is drinking a pint of tequila daily. Alcohol withdrawal History of alcohol withdrawal seizures Managed per AWSS protocol Counseled extensively regarding alcohol cessation Declined inpt rehab due to work Psych liason provided resources Hypomagnesemia Repleted with IV inpatient Continue home po mag Hypokalemia Potassium 3.3 on admission Repleted and resolved Elevated LFTs, chronic cholecystitis Liver cirrhosis Esophageal varices History of ascites liver ultrasound: 1. Hepatic steatosis and cirrhosis. Exam compromised by suboptimal penetration. 2. Cholelithiasis. No sonographic evidence for acute cholecystitis. 3. Obscured pancreas. Compensated Continue Nadolol Continue Home Lasix, spironolactone Mild lipase elevation Denies abdominal pain CT abdomen pelvis: No acute pancreatitis C. difficile diarrhea Patient reports history of C. difficile colitis, cannot exactly remember when C. difficile toxin negative, C. difficile gene positive Was having diarrhea 5-6 times per day Currently on po vancomycin 125 mg 4 times daily, day #4 Diarrhea resolving since starting po vanc. Discharged on po to complete treatment Thrombocytopenia Platelets 55k today Baseline 150 Likely secondary to alcoholism and liver cirrhosis Anemia Hgb 11.5 today No signs of overt bleeding Anxiety Continue buspirone and citalopram Chronic cholecystitis On ursodiol Total Time Total Time Spent Total Time Spent (In Minutes): 35 Total Time Includes: Examination of the Patient, Discharge Planning and Medication Reconciliation Discharge Plan Discharge Items Patient Disposition: Home - Self-Care Reason For Visit: Alcohol withdrawal Discharge Diagnosis: Alcohol withdrawal C diff diarrhea Hypomagnesemia Activity: Resume your previous activity Non-emergency contact: Primary Care Provider Call non-emergency contact if: you have any medication questions Follow-up/Referrals: Michelle Borrego DO [Primary Care Provider] - (Date & Time 01/01/2024 11:40 AM Provider Allan Lepe MD Department Family Medicine [facility] ) Diet: Heart Healthy and Low Sodium (2gm) Addtl Attending Provider Instructions: Mr Guillory You were admitted and managed for the above listed diagnoses. You are being discharged home Please continue oral vancomycin to complete treatment. Please ensure follow up with your Primary Doctor. It was a pleasure taking care of you Pending Studies at Discharge: No Stand-Alone Forms: My [facility], Work/School Release, Smoking Cessation Medications and DC Order Prescriptions: New vancomycin 125 mg capsule 125 mg PO Q6H 7 Days Qty: 28 0RF Continued buspirone 5 mg Tablet 5 mg PO BID nadolol 20 mg Tablet 20 mg PO QAM ursodiol 300 mg Capsule 300 mg PO BID zolpidem [Ambien] 5 mg Tablet 5 mg PO HS PRN (Reason: Sleep) spironolactone 25 mg tablet 25 mg PO QAM furosemide 20 mg tablet 20 mg PO QAM citalopram 10 mg tablet 10 mg PO QAM pantoprazole 40 mg tablet,delayed release (DR/EC) 40 mg PO QAM potassium chloride 20 mEq Tablet,Er Particles/Crystals 20 meq PO QAM Qty: 30 0RF calcium carbonate-vitamin D3 [Oyster Shell Calcium-Vit D3] 500 mg-5 mcg (200 unit) Tablet 1 tab PO BID ergocalciferol (vitamin D2) 1,250 mcg (50,000 unit) capsule 1,250 mcg PO WK Rx Instructions: MONDAYS magnesium chloride [Mag 64] 64 mg Tablet,Delayed Release (Dr/Ec) 64 mg PO BID Qty: 60 0RF folic acid 1 mg Tablet 1 mg PO QAM Qty: 30 0RF gabapentin 300 mg capsule 300 mg PO TID cyanocobalamin (vitamin B-12) [Vitamin B-12] 250 mcg tablet 250 mcg PO QAM Discontinued loperamide 2 mg Capsule 2 mg PO Q4H PRN (Reason: loose stool) Qty: 30 0RF Discharge Orders: Discharge Order (Routine); Ordered 12/25/23 Ordered By: Sera Doshi Admission Data Admit Date/Time: 12/21/23 08:52 Attending Provider: Sera Doshi I. Admit Provider: Milton Montero Primary Care Provider: Michelle Borrego Other Providers: Milton Montero Other Interventions: Discharge Summary Assessment (RN) Last Done: 12/25/23 16:45
[2023-12-25] MEDS: MAGNESIUM SULFATE / D5W 1 GM/100 ML BAG IV SCH (12:31)
[2023-12-25 16:27] VITALS: BP 110/65; RESP 18; TEMP 98.4; O2SAT 98
[2023-12-25 16:46] VITALS: PULSE 54
== END 2023-12-25 17:28 | disposition home or self-care (01) | DRG 897 ==
LOC: ED 06:16 → EDINP 08:52 → SUATTDRO 08:52 → 2E 11:02
DX: K76.6 Portal hypertension; Z83.3 Family history of diabetes mellitus; K86.2 Cyst of pancreas; F41.9 Anxiety disorder, unspecified; K70.30 Alcoholic cirrhosis of liver without ascites; Z88.6 Allergy status to analgesic agent; I85.10 Secondary esophageal varices without bleeding; K80.10 Calculus of gallbladder with chronic cholecystitis without obstruction; D69.6 Thrombocytopenia, unspecified; E87.6 Hypokalemia; E83.42 Hypomagnesemia; A04.72 Enterocolitis due to Clostridium difficile, not specified as recurrent; F10.239 Alcohol dependence with withdrawal, unspecified

== ENCOUNTER 2024-01-14 19:36 | Inpatient (IN) ==
[2024-01-14 20:39] LABS: Basophils # (auto) 0.05 K/uL (0.00-0.20); Basophils % (auto) 0.9 %; Eosinophils # (auto) 0.13 K/uL (0.00-0.50); Eosinophils % (auto) 2.2 %; Hematocrit (blood only) 40.5 % (42.0-52.0); Hemoglobin 14.6 g/dl (14.0-18.0); Immature Granulocytes # (auto) 0.01 K/uL (0.01-0.20); Immature Granulocytes % (auto) 0.2 %; Lymphocytes # (auto) 1.56 K/uL (1.20-3.40); Lymphocytes % (auto) 26.9 %; Mean Corpuscular Hemoglobin 34.7 pg (25.0-34.0); Mean Corpuscular Volume 96.2 fL (80.0-100.0); Mean Platelet Volume 10.6 fL (9.4-12.4); Monocytes # (auto) 0.59 K/uL (0.11-0.59); Monocytes % (auto) 10.2 %; Neutrophils # (auto) 3.46 K/uL (1.40-6.50); Neutrophils % (auto) 59.6 %; Platelet Count 84 K/uL (130-400); RDW Coefficient of Variation 13.6 % (11.5-14.5); RDW Standard Deviation 48.4 fL (36.4-46.3); Red Blood Count 4.21 M/uL (4.70-6.10)
[2024-01-14 20:56] LABS: Albumin Level 3.8 gm/dl (3.4-5.0); BUN Creatinine Ratio 7.8 (10-20); Bilirubin Direct 0.4 mg/dl (0-0.2); Bilirubin,Total 1.4 mg/dl (0.2-1.0); Calcium 7.9 mg/dl (8.6-10.3); Creatinine Clr Calc Pharmacy 129.1 ml/min; Magnesium 1.3 mg/dl (1.7-2.4); Potassium 2.9 mmol/L (3.5-5.1); Total Protein 8.3 gm/dl (6.0-8.3)
[2024-01-14 21:08] LABS: INR 1.1 (0.9-1.1); Partial Thromboplastin Ratio 1.1; Partial Thromboplastin Time 29 Seconds (21-31); Prothrombin Time 11.9 Seconds (9.0-12.0)
--- NOTE | 2024-01-14 22:08 | CT Scan Report ---
Exam(s): CT HEAD Without Contrast EXAM: CT Head Without Intravenous Contrast CLINICAL HISTORY: Reason for exam: fall. TECHNIQUE: Axial computed tomography images of the head/brain without intravenous contrast. CTDI is 35.65 mGy and DLP is 624.41 mGy-cm. Automated exposure control was utilized for the study. A dose lowering technique was utilized adhering to the principles of ALARA. COMPARISON: December 21, 2023 FINDINGS: Brain: Mild ischemic microangiopathy. Age appropriate cerebral volume loss. No hemorrhage. Ventricles: Unremarkable. No ventriculomegaly. Bones/joints: Unremarkable. No acute fracture. Soft tissues: Unremarkable. Sinuses: Unremarkable as visualized. No acute sinusitis. Mastoid air cells: Unremarkable as visualized. No mastoid effusion. IMPRESSION: No acute findings in the head/brain. Electronically signed by: Ousmane Raygoza MD 01/14/24 22:06 PM
--- NOTE | 2024-01-14 22:11 | CT Scan Report ---
Exam(s): CT C SPINE EXAM: CT Cervical Spine Without Intravenous Contrast CLINICAL HISTORY: Reason for exam: fall. TECHNIQUE: Axial computed tomography images of the cervical spine without intravenous contrast. CTDI is 24 mGy and DLP is 477.76 mGy-cm. Automated exposure control was utilized for the study. A dose lowering technique was utilized adhering to the principles of ALARA. COMPARISON: No relevant prior studies available.: FINDINGS: No fracture or subluxations are noted. The vertebral body heights and alignment are preserved. No prevertebral soft tissue swelling. Note is made of multilevel cervical spondylosis with varying degrees of central canal and foramina stenoses. IMPRESSION: 1. No cervical fractures. 2. Cervical spondylosis with varying degrees of central canal and foramina stenoses. Electronically signed by: Ousmane Raygoza MD 01/14/24 22:10 PM
[2024-01-14] MEDS: MAGNESIUM SULFATE / D5W 1 GM/100 ML BAG IV STA (22:42)
[2024-01-14] MEDS: LORazepam 1 MG TAB SL STA (22:42)
[2024-01-14] MEDS: POTASSIUM CHLORIDE PWD 20 MEQ PACK PO STA (22:51)
[2024-01-14] MEDS: MAGNESIUM SULFATE / D5W 1 GM/100 ML BAG IV SCH (23:38)
[2024-01-14] MEDS: POTASSIUM CHLORIDE 20 MEQ in LACTATED RINGER'S 1,000 ML IV STA (23:38)
--- NOTE | 2024-01-14 23:49 | History & Physical Report ---
Date of Service January 14, 2024 Assessment & Plan (1) Alcohol withdrawal: Plan: Alcohol withdrawal: Hypokalemia, hypomagnesemia secondary to alcoholism and home diuretic Rx hx alcoholic cirrhosis, no overt decompensation Alcoholic hepatitis, likely good prognosis on computed Maddrey DF score with normal coags. Chronic pancytopenia secondary to liver disease, hemoglobin better than baseline likely secondary to hemoconcentration Admit to medical telemetry LARISA S, DT precautions Librium taper, dose adjusted for liver disease Replace electrolytes IVF, Hold home diuretic for now until patient euvolemic DVT prophylaxis. SCDs Re: Thrombocytopenia Full code Text document was generated using [employer] voice recognition software. It may contain grammatical or spelling errors. Kindly contact undersigned for clarification of any documentation item in question. History of Present Illness Chief Complaint: Detox, fall from bed Primary Care Provider: Michelle Borrego DO History obtained from patient and records. Medical history significant for alcoholic cirrhosis, history of esophageal varices, history of alcohol withdrawal seizures, chronic pancytopenia (baseline hemoglobin of 11 ), ongoing alcohol abuse. Recent confinement last month for alcohol withdrawal and C. difficile diarrhea. Patient completed vancomycin course. Patient declined inpatient rehab due to work. Patient started drinking again a week after discharge. Denies depression or suicidality. Patient fell off his bed today resulting in some facial trauma. No chest pain, no SOB, LOC. Patient wants to try to detox again. Medical History as above Surgical History : Tonsillectomy Family History : DM, asthma, prostate cancer, stroke Personal/Social history : Non-smoker, alcohol abuse, currently unemployed Allergies Allergy/AdvReac Type Severity Reaction Status Date / Time aspirin AdvReac Intermediate PT STATES Verified 11/04/23 21:57 "HAPPENED A CHILD--BLOODY NOSE" Home Medications Medication Instructions Recorded Confirmed Type buspirone 5 mg tablet 5 mg PO BID 06/10/18 01/14/24 History nadolol 20 mg tablet 20 mg PO HS 06/10/18 01/14/24 History ursodiol 300 mg capsule 300 mg PO BID 06/10/18 01/14/24 History furosemide 20 mg tablet 20 mg PO QAM 11/14/22 01/14/24 History spironolactone 25 mg tablet 25 mg PO QAM 11/14/22 01/14/24 History citalopram 10 mg tablet 10 mg PO QAM 04/09/23 01/14/24 History folic acid 1 mg tablet 1 mg PO QAM #30 tabs 06/06/23 01/14/24 Rx cyanocobalamin (vitamin B-12) 250 250 mcg PO QAM 07/03/23 01/14/24 History mcg tablet (Vitamin B-12) gabapentin 300 mg capsule 300 mg PO TID 07/03/23 01/14/24 History pantoprazole 40 mg tablet,delayed 40 mg PO QAM 08/01/23 01/14/24 History release potassium chloride 20 mEq 20 meq PO QAM #30 tabs 08/27/23 01/14/24 Rx tablet,extended release(part/cryst) calcium 500 mg (as 1 tab PO BID 11/04/23 01/14/24 History carbonate)-vitamin D3 5 mcg (200 unit) tablet (Oyster Shell Calcium-Vitamin D3) ergocalciferol (vitamin D2) 1,250 1,250 mcg PO WK 11/04/23 01/14/24 History mcg (50,000 unit) capsule magnesium chloride 64 mg 64 mg PO BID #60 tabs 12/25/23 01/14/24 Rx (magnesium chloride) tablet,delayed release (Mag 64) thiamine mononitrate (vit B1) 100 100 mg PO QAM 01/14/24 01/14/24 History mg tablet (Vitamin B-1 (mononitrate)) Past Med/Surg History Problem List (Updated 01/15/24 @ 01:10 by Padilla Downs MD) Hypokalemia (Acute) Alcohol abuse (Acute) Prolonged QT interval (Acute) Alcoholic cirrhosis Acute hypokalemia (Acute) Nausea & vomiting (Acute) Thrombocytopenia (Acute) Transaminitis (Acute) Hypomagnesemia (Acute) Alcohol withdrawal (Acute) Alcoholic hepatitis (Acute) Alcohol withdrawal (Acute) Esophageal varices Transaminitis (Acute) Medical History Cholecystitis Choledocholithiasis Depression Anxiety UGIB (upper gastrointestinal bleed) Thrombocytopenia Ascites Alcohol abuse Alcoholic cirrhosis of liver Esophageal varices Portal hypertension History of macrocytic anemia History of alcohol abuse Surgical History History of esophagogastroduodenoscopy (EGD) Including procedures for esophageal varices banding History of tonsillectomy Family History Mother Diabetes Father Prostate cancer Other No family history of adverse response to anesthesia Social History Smoking Status: Never smoker Tobacco Type: Smokeless Tobacco (Dip or Chew) Second Hand Exposure: No; Do You Dip or Chew Tobacco: Yes; Tobacco Cessation Education Requested by Patient: No Hx Alcohol Use: Yes Alcohol type: hard liquor Hx Substance Use: No Preferred Language: Persian Communication Ability: Effective Commercial Pest Control Representative Required: No Beliefs That Will Affect Care: None Current Living Situation: Alone Current Living Situation Comment: lives with parents Other Information That Helps Us Care for You: No Feels Safe at Home: Yes Safety Concerns: Feels Safe At This Time Assistive Devices: None Review of Systems Review of Systems: As per HPI, all other systems reviewed and negative Physical Exam Physical Exam: GENERAL: tremulous, obese, no respiratory distress SKIN: Pallor, warm HEENT: Pale palpebral conjunctivae, no ptosis, dry buccal mucosa NECK : Supple, no tenderness CHEST : CTA, no tenderness HEART : RRR, no obvious murmurs ABDOMEN: Some distention, no tenderness EXTREMITIES : No LE swelling/tenderness, no other conspicuous deformities noted NEUROLOGIC : Coherent, no facial asymmetry, tremulous, no other gross focality Results & Data Results & Data Vital Signs (Past 12 Hours) Vital Signs Temp Pulse Resp BP Pulse Ox O2 Del Method 01/14/24 23:00 70 14 147/92 H 97 Room Air 01/14/24 22:36 78 20 97 Room Air 01/14/24 22:30 135/93 01/14/24 22:24 88 14 96 Room Air 01/14/24 22:06 87 16 95 Room Air 01/14/24 22:00 136/91 01/14/24 21:57 83 17 96 Room Air 01/14/24 21:50 147/92 H 01/14/24 21:30 98 H 20 97 Room Air 01/14/24 21:00 108 H 20 94 Room Air 01/14/24 20:39 83 19 94 Room Air 01/14/24 20:35 79 01/14/24 20:30 119/92 01/14/24 20:14 84 16 97 Room Air 01/14/24 19:42 36.5 C 96 H 16 144/101 H 95 Room Air Laboratory Results Laboratory Results WBC 5.80 K/ul (4.8-10.8) 01/14/24 20:20 RBC 4.21 M/uL (4.70-6.10) L 01/14/24 20:20 Hgb 14.6 g/dl (14.0-18.0) 01/14/24 20:20 Hct 40.5 % (42.0-52.0) L 01/14/24 20:20 MCV 96.2 fL (80.0-100.0) 01/14/24 20:20 MCH 34.7 pg (25.0-34.0) H 01/14/24 20:20 MCHC 36.0 g/dL (32.0-36.0) 01/14/24 20:20 RDW Std Deviation 48.4 fL (36.4-46.3) H 01/14/24 20:20 RDW Coeff of Hang 13.6 % (11.5-14.5) 01/14/24 20:20 Plt Count 84 K/uL (130-400) L 01/14/24 20:20 MPV 10.6 fL (9.4-12.4) 01/14/24 20:20 Immature Gran % (Auto) 0.2 % 01/14/24 20:20 Neut % (Auto) 59.6 % 01/14/24 20:20 Lymph % (Auto) 26.9 % 01/14/24 20:20 [place] % (Auto) 10.2 % 01/14/24 20:20 Eos % (Auto) 2.2 % 01/14/24 20:20 Baso % (Auto) 0.9 % 01/14/24 20:20 Neut # (Auto) 3.46 K/uL (1.40-6.50) 01/14/24 20:20 Lymph # (Auto) 1.56 K/uL (1.20-3.40) 01/14/24 20:20 [place] # (Auto) 0.59 K/uL (0.11-0.59) 01/14/24 20:20 Eos # (Auto) 0.13 K/uL (0.00-0.50) 01/14/24 20:20 Baso # (Auto) 0.05 K/uL (0.00-0.20) 01/14/24 20:20 Immature Gran # (Auto) 0.01 K/uL (0.01-0.20) 01/14/24 20:20 PT 11.9 Seconds (9.0-12.0) 01/14/24 20:20 INR 1.1 (0.9-1.1) 01/14/24 20:20 APTT 29 Seconds (21-31) 01/14/24 20:20 PTT Ratio 1.1 01/14/24 20:20 Sodium 141 mmol/L (136-145) 01/14/24 20:20 Potassium 2.9 mmol/L (3.5-5.1) L 01/14/24 20:20 Chloride 102 mmol/L (98-107) 01/14/24 20:20 Carbon Dioxide 25 mmol/L (21-32) 01/14/24 20:20 Anion Gap 14 (3-11) H 01/14/24 20:20 BUN 5 mg/dl (6-23) L 01/14/24 20:20 Creatinine 0.64 mg/dl (0.6-1.4) 01/14/24 20:20 Est Cr Clr Drug Dosing 129.1 ml/min 01/14/24 20:20 eGFR 115.33 01/14/24 20:20 BUN/Creatinine Ratio 7.8 (10-20) L 01/14/24 20:20 Glucose 115 mg/dl (70-99(Fasting)) H 01/14/24 20:20 POC Glucose 111 mg/dl (70-99) H 01/14/24 20:23 Calcium 7.9 mg/dl (8.6-10.3) L 01/14/24 20:20 Magnesium 1.3 mg/dl (1.7-2.4) L 01/14/24 20:20 Total Bilirubin 1.4 mg/dl (0.2-1.0) H 01/14/24 20:20 Direct Bilirubin 0.4 mg/dl (0-0.2) H 01/14/24 20:20 AST 138 U/L (13-39) H 01/14/24 20:20 ALT 37 U/L (7-52) 01/14/24 20:20 Alkaline Phosphatase 91 U/L (34-104) 01/14/24 20:20 Total Protein 8.3 gm/dl (6.0-8.3) 01/14/24 20:20 Albumin 3.8 gm/dl (3.4-5.0) 01/14/24 20:20 Lipase 138 U/L (11-82) H 01/14/24 20:20 Ethyl Alcohol mg/dL 400.0 mg/dl (<10.0) H 01/14/24 20:[address] 01/14/24 20:31 Exam(s): CT C SPINE EXAM: CT Cervical Spine Without Intravenous Contrast CLINICAL HISTORY: Reason for exam: fall. TECHNIQUE: Axial computed tomography images of the cervical spine without intravenous contrast. CTDI is 24 mGy and DLP is 477.76 mGy-cm. Automated exposure control was utilized for the study. A dose lowering technique was utilized adhering to the principles of ALARA. COMPARISON: No relevant prior studies available.: FINDINGS: No fracture or subluxations are noted. The vertebral body heights and alignment are preserved. No prevertebral soft tissue swelling. Note is made of multilevel cervical spondylosis with varying degrees of central canal and foramina stenoses. IMPRESSION: 1. No cervical fractures. 2. Cervical spondylosis with varying degrees of central canal and foramina stenoses. Electronically signed by: Ousmane Raygoza MD 01/14/24 22:[address] 01/14/24 20:31 Exam(s): CT HEAD Without Contrast EXAM: CT Head Without Intravenous Contrast CLINICAL HISTORY: Reason for exam: fall. TECHNIQUE: Axial computed tomography images of the head/brain without intravenous contrast. CTDI is 35.65 mGy and DLP is 624.41 mGy-cm. Automated exposure control was utilized for the study. A dose lowering technique was utilized adhering to the principles of ALARA. COMPARISON: December 21, 2023 FINDINGS: Brain: Mild ischemic microangiopathy. Age appropriate cerebral volume loss. No hemorrhage. Ventricles: Unremarkable. No ventriculomegaly. Bones/joints: Unremarkable. No acute fracture. Soft tissues: Unremarkable. Sinuses: Unremarkable as visualized. No acute sinusitis. Mastoid air cells: Unremarkable as visualized. No mastoid effusion. IMPRESSION: No acute findings in the head/brain. Electronically signed by: Ousmane Raygoza MD 01/14/24 22:06 PM
[2024-01-15] MEDS ORDERED: Ativan IV Alcohol Withdrawal--Active Protocol IV PRN (00:20)
[2024-01-15] MEDS ORDERED: LORazepam 2 MG/1 ML VIAL IV PRN ×2 (00:20)
[2024-01-15] MEDS ORDERED: PROMETHAZINE 6.25 MG/50.25 ML BAG IV PRN (00:20)
[2024-01-15] MEDS ORDERED: chlordiazePOXIDE ALCOHOL WITHDRAWL 25MG PO STA (00:23)
[2024-01-15] MEDS: chlordiazePOXIDE HCl 25 MG CAP PO SCH (00:48)
--- NOTE | 2024-01-15 01:04 | Emergency Department Note ---
History of Present Illness General Chief complaint: Detox Request Stated complaint: CRAMPS, WITHDRAWAL FROM ALCOHOL Time Seen by Provider: 01/14/24 19:52 History of Present Illness Provider complaint: Alcohol abuse 48-year-old male with long history of alcohol abuse presents emergency department for alcohol abuse and states he is concerned he might be withdrawing. Patient's last drink was at 1600 today. Patient does report he fell and hit his head. Home Medications Medication Instructions Recorded Confirmed Type buspirone 5 mg tablet 5 mg PO BID 06/10/18 01/14/24 History nadolol 20 mg tablet 20 mg PO HS 06/10/18 01/14/24 History ursodiol 300 mg capsule 300 mg PO BID 06/10/18 01/14/24 History furosemide 20 mg tablet 20 mg PO QAM 11/14/22 01/14/24 History spironolactone 25 mg tablet 25 mg PO QAM 11/14/22 01/14/24 History citalopram 10 mg tablet 10 mg PO QAM 04/09/23 01/14/24 History folic acid 1 mg tablet 1 mg PO QAM #30 tabs 06/06/23 01/14/24 Rx cyanocobalamin (vitamin B-12) 250 250 mcg PO QAM 07/03/23 01/14/24 History mcg tablet (Vitamin B-12) gabapentin 300 mg capsule 300 mg PO TID 07/03/23 01/14/24 History pantoprazole 40 mg tablet,delayed 40 mg PO QAM 08/01/23 01/14/24 History release potassium chloride 20 mEq 20 meq PO QAM #30 tabs 08/27/23 01/14/24 Rx tablet,extended release(part/cryst) calcium 500 mg (as 1 tab PO BID 11/04/23 01/14/24 History carbonate)-vitamin D3 5 mcg (200 unit) tablet (Oyster Shell Calcium-Vitamin D3) ergocalciferol (vitamin D2) 1,250 1,250 mcg PO WK 11/04/23 01/14/24 History mcg (50,000 unit) capsule magnesium chloride 64 mg 64 mg PO BID #60 tabs 12/25/23 01/14/24 Rx (magnesium chloride) tablet,delayed release (Mag 64) thiamine mononitrate (vit B1) 100 100 mg PO QAM 01/14/24 01/14/24 History mg tablet (Vitamin B-1 (mononitrate)) Allergies Allergy/AdvReac Type Severity Reaction Status Date / Time aspirin AdvReac Intermediate PT STATES Verified 11/04/23 21:57 "HAPPENED A CHILD--BLOODY NOSE" Past Med/Surg History Problem List (Updated 01/15/24 @ 01:10 by Padilla Downs MD) Hypokalemia (Acute) Alcohol abuse (Acute) Prolonged QT interval (Acute) Alcoholic cirrhosis Acute hypokalemia (Acute) Nausea & vomiting (Acute) Thrombocytopenia (Acute) Transaminitis (Acute) Hypomagnesemia (Acute) Alcohol withdrawal (Acute) Alcoholic hepatitis (Acute) Alcohol withdrawal (Acute) Esophageal varices Transaminitis (Acute) Medical History Cholecystitis Choledocholithiasis Depression Anxiety UGIB (upper gastrointestinal bleed) Thrombocytopenia Ascites Alcohol abuse Alcoholic cirrhosis of liver Esophageal varices Portal hypertension History of macrocytic anemia History of alcohol abuse Surgical History History of esophagogastroduodenoscopy (EGD) Including procedures for esophageal varices banding History of tonsillectomy Family History Mother Diabetes Father Prostate cancer Other No family history of adverse response to anesthesia Social History Smoking Status: Never smoker Tobacco Type: Smokeless Tobacco (Dip or Chew) Second Hand Exposure: No; Do You Dip or Chew Tobacco: Yes; Hx Alcohol Use: Yes Alcohol type: hard liquor Hx Substance Use: No Preferred Language: Eritrean Communication Ability: Effective Asp Web Developer Required: No Beliefs That Will Affect Care: None Current Living Situation: Alone Current Living Situation Comment: lives with parents Feels Safe at Home: Yes Assistive Devices: None Physical Exam Vital Signs Vital Signs - 24 hr 01/14/24 19:42 01/14/24 20:14 01/14/24 20:30 Temperature 36.5 C Temperature Source Temporal Artery Scan Pulse Rate 96 H 84 Pulse Rate from SpO2 Sensor Pulse Rhythm Regular Respiratory Rate 16 16 Respiratory Effort / Characteristics Non-Labored Spontaneous Respiratory Depth Normal Respiratory Pattern Regular Blood Pressure 144/101 H 119/92 Blood Pressure Mean 115 100 Pulse Oximetry 95 97 Oxygen Delivery Method Room Air Room Air Sepsis Recent Fever Within 48 Hours No Sepsis New/Unexplained Change in Mental Status No Sepsis Action Taken by Nursing No Action Required 01/14/24 20:35 01/14/24 20:39 01/14/24 21:00 Temperature Temperature Source Pulse Rate 79 83 108 H Pulse Rate from SpO2 Sensor 82 105 H Pulse Rhythm Respiratory Rate 19 20 Respiratory Effort / Characteristics Respiratory Depth Respiratory Pattern Blood Pressure Blood Pressure Mean Pulse Oximetry 94 94 Oxygen Delivery Method Room Air Room Air Sepsis Recent Fever Within 48 Hours Sepsis New/Unexplained Change in Mental Status Sepsis Action Taken by Nursing 01/14/24 21:30 01/14/24 21:50 01/14/24 21:57 Temperature Temperature Source Pulse Rate 98 H 83 Pulse Rate from SpO2 Sensor 99 H 83 Pulse Rhythm Respiratory Rate 20 17 Respiratory Effort / Characteristics Respiratory Depth Respiratory Pattern Blood Pressure 147/92 H Blood Pressure Mean 108 Pulse Oximetry 97 96 Oxygen Delivery Method Room Air Room Air Sepsis Recent Fever Within 48 Hours Sepsis New/Unexplained Change in Mental Status Sepsis Action Taken by Nursing 01/14/24 22:00 01/14/24 22:06 01/14/24 22:24 Temperature Temperature Source Pulse Rate 87 88 Pulse Rate from SpO2 Sensor 86 89 Pulse Rhythm Respiratory Rate 16 14 Respiratory Effort / Characteristics Respiratory Depth Respiratory Pattern Blood Pressure 136/91 Blood Pressure Mean 119 Pulse Oximetry 95 96 Oxygen Delivery Method Room Air Room Air Sepsis Recent Fever Within 48 Hours Sepsis New/Unexplained Change in Mental Status Sepsis Action Taken by Nursing 01/14/24 22:30 01/14/24 22:36 01/14/24 23:00 Temperature Temperature Source Pulse Rate 78 70 Pulse Rate from SpO2 Sensor 80 69 Pulse Rhythm Respiratory Rate 20 14 Respiratory Effort / Characteristics Respiratory Depth Respiratory Pattern Blood Pressure 135/93 147/92 H Blood Pressure Mean 104 110 Pulse Oximetry 97 97 Oxygen Delivery Method Room Air Room Air Sepsis Recent Fever Within 48 Hours Sepsis New/Unexplained Change in Mental Status Sepsis Action Taken by Nursing 01/15/24 00:34 Temperature Temperature Source Pulse Rate 80 Pulse Rate from SpO2 Sensor Pulse Rhythm Respiratory Rate Respiratory Effort / Characteristics Respiratory Depth Respiratory Pattern Blood Pressure Blood Pressure Mean Pulse Oximetry Oxygen Delivery Method Sepsis Recent Fever Within 48 Hours Sepsis New/Unexplained Change in Mental Status Sepsis Action Taken by Nursing Physical Exam GENERAL: oriented to person, place, and time. appears well-developed and well- nourished. HENT: Exam performed. - Head: Normocephalic and atraumatic. EYES: Conjunctivae and EOM are normal. Right eye exhibits no discharge. Left eye exhibits no discharge. No scleral icterus. NECK: Normal range of motion. Neck supple. No JVD present. CV: Normal rate, regular rhythm, normal heart sounds and intact distal pulses. There is no peripheral edema. Palpable radial pulses bue. PULM/CHEST: Effort normal and breath sounds normal. No respiratory distress. No stridor. no wheezes. no rales. ABD: The abdomen is soft. There is no tenderness. NEURO: Motor and sensation grossly intact. SKIN: Skin is warm and dry. He is not diaphoretic. PSYCH: normal mood and affect. Behavior is normal. Judgment and thought content normal. Course Course 1951: The patient was evaluated in room A10. A complete history and physical exam was performed Cardiac monitoring: An order was placed for continuous cardiac monitoring. The monitor shows a rate of 80 with sinus rhythm interpreted by me 2220: Vital signs stable. Patient again has low magnesium and potassium. Magnesium repletion started in the emergency department which will be followed by potassium repletion. I had a long discussion with the patient and we discussed that he has been admitted to the hospital multiple times for similar episodes. On previous episodes patient stated he does not want to go to alcohol rehab or detox but this time he states he is committed to getting sober and wants to go to detox/rehab. [facility]. Administered Medications Chlordiazepoxide HCl (Chlordiazepoxide Hcl 25 Mg Cap) 25 mg PO Q6H LANDRY Stop: 01/15/24 18:31 Last Admin: 01/15/24 00:48 Dose: 25 mg Documented By: HB Potassium Chloride 20 meq/ (Lactated Ringer's) 1,010 mls @ 75 mls/hr IV .[id number] STA Stop: 01/15/24 12:02 Last Admin: 01/14/24 23:38 Dose: 75 mls/hr Documented By: HB Magnesium Sulfate/Dextrose (Magnesium Sulfate / D5w) 1 gm in 100 mls @ 50 mls/hr IV Q2H LANDRY Stop: 01/15/24 02:44 Last Admin: 01/14/24 23:38 Dose: 50 mls/hr Documented By: HB Discontinued Medications Magnesium Sulfate/Dextrose (Magnesium Sulfate / D5w) 1 gm in 100 mls @ 100 mls/hr IV NOW STA Stop: 01/14/24 22:58 Last Infusion: 01/14/24 23:40 Dose: Infused Documented By: Admin: 01/14/24 22:42 Dose: 100 mls/hr Documented By: AMERICA Lorazepam (Lorazepam 1 Mg Tab) 1 mg SL NOW STA Stop: 01/14/24 22:00 Last Admin: 01/14/24 22:42 Dose: 1 mg Documented By: AMERICA Potassium Chloride (Potassium Chloride Pwd 20 Meq Pack) 40 meq PO NOW STA Stop: 01/14/24 22:34 Last Admin: 01/14/24 22:51 Dose: 40 meq Documented By: AMERICA Medical Decision Making Laboratory Data Attestation: I reviewed the patient's lab results. 01/14/24 20:20 01/14/24 20:20 Lab Results 01/14/24 01/14/24 Range/Units 20:20 20:23 WBC 5.80 (4.8-10.8) K/ul RBC 4.21 L (4.70-6.10) M/uL Hgb 14.6 (14.0-18.0) g/dl Hct 40.5 L (42.0-52.0) % MCV 96.2 (80.0-100.0) fL MCH 34.7 H (25.0-34.0) pg MCHC 36.0 (32.0-36.0) g/dL RDW Std Deviation 48.4 H (36.4-46.3) fL RDW Coeff of Hang 13.6 (11.5-14.5) % Plt Count 84 L (130-400) K/uL MPV 10.6 (9.4-12.4) fL Immature Gran % (Auto) 0.2 % Neut % (Auto) 59.6 % Lymph % (Auto) 26.9 % [place] % (Auto) 10.2 % Eos % (Auto) 2.2 % Baso % (Auto) 0.9 % Neut # (Auto) 3.46 (1.40-6.50) K/uL Lymph # (Auto) 1.56 (1.20-3.40) K/uL [place] # (Auto) 0.59 (0.11-0.59) K/uL Eos # (Auto) 0.13 (0.00-0.50) K/uL Baso # (Auto) 0.05 (0.00-0.20) K/uL Immature Gran # (Auto) 0.01 (0.01-0.20) K/uL PT 11.9 (9.0-12.0) Seconds INR 1.1 (0.9-1.1) APTT 29 (21-31) Seconds PTT Ratio 1.1 Sodium 141 (136-145) mmol/L Potassium 2.9 L (3.5-5.1) mmol/L Chloride 102 (98-107) mmol/L Carbon Dioxide 25 (21-32) mmol/L Anion Gap 14 H (3-11) BUN 5 L (6-23) mg/dl Creatinine 0.64 (0.6-1.4) mg/dl Est Cr Clr Drug Dosing 129.1 ml/min eGFR 115.33 BUN/Creatinine Ratio 7.8 L (10-20) Glucose 115 H (70-99(Fasting)) mg/dl POC Glucose 111 H (70-99) mg/dl Calcium 7.9 L (8.6-10.3) mg/dl Magnesium 1.3 L (1.7-2.4) mg/dl Total Bilirubin 1.4 H (0.2-1.0) mg/dl Direct Bilirubin 0.4 H (0-0.2) mg/dl AST 138 H (13-39) U/L ALT 37 (7-52) U/L Alkaline Phosphatase 91 (34-104) U/L Total Protein 8.3 (6.0-8.3) gm/dl Albumin 3.8 (3.4-5.0) gm/dl Lipase 138 H (11-82) U/L Ethyl Alcohol mg/dL 400.0 H (<10.0) mg/dl Imaging Data Radiologist's Impression: Cervical Spine CT 01/14/24 20:31 Exam(s): CT C SPINE EXAM: CT Cervical Spine Without Intravenous Contrast CLINICAL HISTORY: Reason for exam: fall. TECHNIQUE: Axial computed tomography images of the cervical spine without intravenous contrast. CTDI is 24 mGy and DLP is 477.76 mGy-cm. Automated exposure control was utilized for the study. A dose lowering technique was utilized adhering to the principles of ALARA. COMPARISON: No relevant prior studies available.: FINDINGS: No fracture or subluxations are noted. The vertebral body heights and alignment are preserved. No prevertebral soft tissue swelling. Note is made of multilevel cervical spondylosis with varying degrees of central canal and foramina stenoses. IMPRESSION: 1. No cervical fractures. 2. Cervical spondylosis with varying degrees of central canal and foramina stenoses. Electronically signed by: Ousmane Raygoza MD 01/14/24 22:[address] 01/14/24 20:31 Exam(s): CT HEAD Without Contrast EXAM: CT Head Without Intravenous Contrast CLINICAL HISTORY: Reason for exam: fall. TECHNIQUE: Axial computed tomography images of the head/brain without intravenous contrast. CTDI is 35.65 mGy and DLP is 624.41 mGy-cm. Automated exposure control was utilized for the study. A dose lowering technique was utilized adhering to the principles of ALARA. COMPARISON: December 21, 2023 FINDINGS: Brain: Mild ischemic microangiopathy. Age appropriate cerebral volume loss. No hemorrhage. Ventricles: Unremarkable. No ventriculomegaly. Bones/joints: Unremarkable. No acute fracture. Soft tissues: Unremarkable. Sinuses: Unremarkable as visualized. No acute sinusitis. Mastoid air cells: Unremarkable as visualized. No mastoid effusion. IMPRESSION: No acute findings in the head/brain. Electronically signed by: Ousmane Raygoza MD 01/14/24 22:06 PM [facility] Narrative 195: The patient was evaluated in room A10. A complete history and physical exam was performed Cardiac monitoring: An order was placed for continuous cardiac monitoring. The monitor shows a rate of 80 with sinus rhythm interpreted by me 2220: Vital signs stable. Patient again has low magnesium and potassium. Magnesium repletion started in the emergency department which will be followed by potassium repletion. I had a long discussion with the patient and we discussed that he has been admitted to the hospital multiple times for similar episodes. On previous episodes patient stated he does not want to go to alcohol rehab or detox but this time he states he is committed to getting sober and wants to go to detox/rehab. [facility] Impression & Plan Hypomagnesemia, Alcohol abuse, Hypokalemia Discharge Plan Visit Data Chief Complaint: Detox Request Stated Complaint: CRAMPS, WITHDRAWAL FROM ALCOHOL ED Provider: Padilla Downs Discharge Problem: Hypomagnesemia, Alcohol abuse, Hypokalemia Patient Disposition: Being Evaluated by Hospitalist Forms Stand Alone Forms: My [facility], Suicide Prevention Resources Prescriptions Prescriptions: No Action buspirone 5 mg Tablet 5 mg PO BID nadolol 20 mg Tablet 20 mg PO HS ursodiol 300 mg Capsule 300 mg PO BID spironolactone 25 mg tablet 25 mg PO QAM furosemide 20 mg tablet 20 mg PO QAM citalopram 10 mg tablet 10 mg PO QAM pantoprazole 40 mg tablet,delayed release (DR/EC) 40 mg PO QAM potassium chloride 20 mEq Tablet,Er Particles/Crystals 20 meq PO QAM Qty: 30 0RF calcium carbonate-vitamin D3 [Oyster Shell Calcium-Vit D3] 500 mg-5 mcg (200 unit) Tablet 1 tab PO BID ergocalciferol (vitamin D2) 1,250 mcg (50,000 unit) capsule 1,250 mcg PO WK Rx Instructions: MONDAYS magnesium chloride [Mag 64] 64 mg Tablet,Delayed Release (Dr/Ec) 64 mg PO BID Qty: 60 0RF thiamine mononitrate (vit B1) [Vitamin B-1 (mononitrate)] 100 mg tablet 100 mg PO QAM folic acid 1 mg Tablet 1 mg PO QAM Qty: 30 0RF gabapentin 300 mg capsule 300 mg PO TID cyanocobalamin (vitamin B-12) [Vitamin B-12] 250 mcg tablet 250 mcg PO QAM Referrals Referrals: Michelle Borrego DO [Primary Care Provider] -
[2024-01-15] MEDS: GABAPENTIN 600 MG TAB PO ONE (03:08)
[2024-01-15] MEDS: GABAPENTIN 1200MG ALCOHOL WITHDRAWAL LOAD PO STA (03:09)
[2024-01-15] MEDS ORDERED: GABAPENTIN 600 MG TAB PO SCH ×2 (06:30→20:30)
[2024-01-15 06:59] LABS: Basophils # (auto) 0.03 K/uL (0.00-0.20); Basophils % (auto) 1.1 %; Eosinophils % (auto) 3.8 %; Hematocrit (blood only) 32.5 % (42.0-52.0); Hemoglobin 11.3 g/dl (14.0-18.0); Immature Granulocytes # (auto) 0.01 K/uL (0.01-0.20); Immature Granulocytes % (auto) 0.4 %; Lymphocytes # (auto) 0.94 K/uL (1.20-3.40); Lymphocytes % (auto) 35.5 %; Mean Corpuscular Hemoglobin 33.7 pg (25.0-34.0); Mean Corpuscular Hgb Conc 34.8 g/dL (32.0-36.0); Mean Platelet Volume 10.5 fL (9.4-12.4); Monocytes # (auto) 0.35 K/uL (0.11-0.59); Monocytes % (auto) 13.2 %; Neutrophils # (auto) 1.22 K/uL (1.40-6.50); Platelet Count 46 K/uL (130-400); RDW Coefficient of Variation 13.8 % (11.5-14.5); Red Blood Count 3.35 M/uL (4.70-6.10); White Blood Count 2.65 K/ul (4.8-10.8)
[2024-01-15 07:16] LABS: Albumin Globulin Ratio 0.8 (0.9-2); BUN Creatinine Ratio 8.9 (10-20); Bilirubin,Total 1.1 mg/dl (0.2-1.0); Calcium 6.9 mg/dl (8.6-10.3); Creatinine Clr Calc Pharmacy 152.7 ml/min; Globulin 3.7 gm/dl (2.5-4.0); Magnesium 1.7 mg/dl (1.7-2.4); Total Protein 6.7 gm/dl (6.0-8.3)
[2024-01-15] MEDS: ACETAMINOPHEN 500 MG TAB PO PRN (08:04)
[2024-01-15] MEDS: busPIRone 5 MG TAB PO SCH (08:16)
[2024-01-15] MEDS: CITALOPRAM 20 MG TAB PO SCH (08:20)
[2024-01-15] MEDS: CYANOCOBALAMIN (B-12) 500 MCG TABLET PO SCH (08:20)
[2024-01-15] MEDS: ursodioL 300 MG CAP PO SCH (08:21)
[2024-01-15] MEDS: POTASSIUM CHLORIDE CRTAB 20 MEQ TABCR PO SCH (08:21)
[2024-01-15] MEDS: FOLIC ACID 1 MG TAB PO SCH (08:21)
[2024-01-15] MEDS: GABAPENTIN 300 MG CAP PO SCH (08:21)
[2024-01-15] MEDS: PANTOprazole 40 MG TAB PO SCH (08:21)
[2024-01-15] MEDS: THIAMINE HCL 100 MG TAB PO SCH (08:21)
[2024-01-15] MEDS: oxyCODONE HCL IR 5 MG TAB (IMMEDIATE RELEASE) PO PRN (09:10)
[2024-01-15] MEDS: POTASSIUM CHLORIDE CRTAB 20 MEQ TABCR PO STA (09:59)
[2024-01-15] MEDS: CALCIUM GLUCONATE 1,000 MG/60 ML BAG IV STA (10:07)
[2024-01-15] MEDS: CALCIUM 600MG + VIT D 400 IU TAB PO SCH (10:14)
[2024-01-15] MEDS: LORazepam 2 MG/1 ML VIAL IV STA (13:18)
--- OUTSIDE RECORDS SUMMARY | 2024-01-15 14:07 | External Medical Summary | Summary of Care ---
Author Name Unknown Organization [facility] [address] [facility] [address] Phone [phone] Care Team Providers Care Geek Squad Agent Name Role Phone Michelle Borrego Primary Care Provider [phone] Reason for Visit * Reason Onset Date Comments Hospital Follow-Up 12/26/2023 [facility] 12/24 ARM[facility] call Encounter Details Date Type Department Care Team (Late st Contact Info) Description 12/26/2023 Telephone [address] [place] [id number] Nicolette Lamar, RN Hospital Follow-Up ([facility] 12/24 ARMAND call) Allergies Active Allergy Reactions Criticality Noted Date Comments Aspirin Other (Please comment) 02/12/2016 Reports having a bloody nose. documented as of this encounter (statuses as of 12/30/2023) Medications Medication Sig Dispensed Refills Start Date [...] 08/27/2023 Active Vitamin D (Ergocalciferol) 1.25 MG (41441 UT) Oral Capsule (Drisdol) TAKE ONE CAPSULE BY MOUTH EVERY FRIDAY MORNING AT 9AM 08/27/2023 Active Citalopram Hydrobromide 10 MG Oral Tablet (CeleXA) Take 1 Tablet by mouth in the morning. In the morning.. Active Oyster Shell Calcium w/D 500-5 MG-MCG Oral Tablet Take 1 Tablet by mouth in the morning and 1 Tablet before bedtime. 08/27/2023 Active Vancomycin HCl 125 MG Oral Capsule (Vancocin) Take 1 Capsule by mouth every 6 hours. for 7 days. 12/25/2023 Active documented as of this encounter (statuses as of 12/30/2023) Active Problems Problem Noted Date Diagnosed Date [...] as of this encounter (statuses as of 12/30/2023) Resolved Problems Problem Noted Date Diagnosed Date [...] as of this encounter (statuses as of 12/30/2023) Immunizations Name Administration Dates Next Due COVID-19 [...] Telephone Encounter - Nicolette Lamar RN - 12/30/2023 9:56 AM EDT Attempted Phone Call Third attempt Call Outcome Left Voicemail/Message * Telephone Encounter - Nicolette Lamar RN - 12/29/2023 2:01 PM EDT Attempted Phone Call Second Attempt Call Outcome Invalid Phone Number called this morning and this afternoon. Have gotten messages that state the "call cannot be completed at this time" and "the phone number you have called is not in service". Willtry again later * Telephone Encounter - Nicolette Lamar RN - 12/26/2023 11:24 AM EDT Transitions of Care Note Reason for Referral:Recent Admission Phone visit for follow up: [facility] Admitted to: [facility], Date: 12/20 Discharged to: home, Date: 12/24 Diagnosis driving hospitalization: Alcohol withdrawal C diff diarrhea Hypomagnesemia Attempted Phone Call First Attempt Call Outcome Left Voicemail/Message documented in this encounter Plan of Treatment Upcoming Encounters Date Type Department Care Team (Late st Contact Info) Description 01/01/2024 11:40 AM EDT Office Visit [address] [phone] Allan Lepe MD [address] [place] [address] [place] [id number] 02/03/2024 8:30 AM EST Office Visit [address] [phone] Michelle Borrego DO [address] [place] [address] [place] [id number] Scheduled Procedures Name Priority Associated Diagnoses Date/Ti [...] 12/21/2019 Zoster Vaccines (1 of 2) 09/23/2023 COVID-19 Vaccine ( season) 2023 01/15/2023, 01/15/2023, 03/08/2022, Additional history exists Influenza Vaccine (FLU shot) (#1) 2023 12/17/2022, 02/08/2022, 11/29/2020, Additional history exists Cologuard 08/23/2025 08/23/2022, 07/30, 08/17/2022 Colorectal Cancer Screening 08/23/2025 Diabetes Screening 08/11/2026 08/12/2023, 0 05/14/2023, 02/11/2023, Additional history exists DTap/Tdap Vaccines (2 - Td or Tdap) 11/12/2026 11/12/2016 Lipid Panel 02/12/2028 02/11/2023, 12/0 11/2021, 12/02/2018, Additional history exists Hepatitis B Vaccine Completed 02/12/2017, 08/16/2016, 07/12/2016 HPV (Gardasil) Vaccine Aged Out No lo [...] Power of Attor ricky? No Care Teams Geek Squad Agent Relationship Specialty Start Date End Date Michelle Borrego DO [address] [place] [address] [place] [id number] PCP - General Internal Medicine 06/07/16 documented as of this encounter
[2024-01-15 16:46] LABS: BUN Creatinine Ratio 10.2 (10-20); Calcium 7.2 mg/dl (8.6-10.3); Creatinine Clr Calc Pharmacy 144.9 ml/min; Potassium 3.6 mmol/L (3.5-5.1)
[2024-01-15] MEDS: LORazepam 2 MG/1 ML VIAL IV PRN (16:52)
--- NOTE | 2024-01-15 18:55 | Hospitalist Progress Note ---
Date of Service January 15, 2024 Assessment & Plan (1) Alcohol withdrawal: Plan: Alcohol withdrawal: Librium protocol, Alcohol withdrawal protocol Low back pain s/p Fall Xray ordered PRN Oxycodone Hypokalemia, hypomagnesemia secondary to alcoholism and home diuretic Rx replacements ordered repeat BMP improved hx alcoholic cirrhosis, no overt decompensation Alcoholic hepatitis, likely good prognosis on computed Maddrey DF score with normal coags. monitor LFTs Chronic pancytopenia secondary to liver disease, hemoglobin better than baseline likely secondary to hemoconcentration monitor CBC DVT prophylaxis. SCDs Re: Thrombocytopenia Full code Admission and Anticipated Discharge Date Admission Date: January 14, 2024 Subjective ff up for alcohol withdrawal etc seen resting in bed, comfortable feels anxious, (+) tremors but denies hallucinations reports lower back pain from fall no other pain no chest pain, dyspnea, palpitations, dizziness no other symptoms Review of Systems Review of Systems: all noted and negative except for above Physical Exam Physical Exam: General- oriented x 3, not in distress, speaks in sentences with no effort or accessory muscle use Eyes- anicteric Neck- no JVD Lungs- clear breath sounds bilaterally, no rales/wheezes Heart- normal rate, regular rhythm; no murmurs Abdomen- normal bowel sounds, nondistended, soft, nontender Extremities- no pretibial edema, no calf tenderness (+) tremors Neuro- alert, oriented x 3; no gross focal neurologic deficits Skin- warm & dry Results & Data Results & Data Vital Signs (Past 12 Hours) Vital Signs Temp Pulse Pulse Resp BP BP Pulse Ox 01/15/24 16:39 36.9 C 75 16 143/82 H 96 01/15/24 15:09 37.1 C 82 18 154/88 H 95 01/15/24 15:00 74 01/15/24 11:20 37.2 C 80 18 156/78 H 95 01/15/24 10:34 37.0 C 76 16 147/84 H 96 01/15/24 09:11 37.2 C 77 16 147/84 H 96 01/15/24 07:40 73 01/15/24 07:30 36.8 C 76 18 140/78 97 O2 Del Method 01/15/24 16:39 Room Air 01/15/24 15:09 Room Air 01/15/24 15:00 01/15/24 11:20 Room Air 01/15/24 10:34 Room Air 01/15/24 09:11 Room Air 01/15/24 07:40 01/15/24 07:30 Room Air all noted and reviewed including below
--- NOTE | 2024-01-15 20:58 | XRay Report ---
XR lumbar spine 2-3V CLINICAL HISTORY: low back pain, s/p fall, r/o fracture TECHNIQUE: 3 views of the lumbar spine were obtained. Comparison: None available at the time of this dictation. FINDINGS: There is no evidence of an acute fracture. Degenerative changes are seen in the lumbar spine with ost eophyte formation and disc space narrowing. The alignment is normal. No soft tissue abnormality is se en. IMPRESSION: Degenerative changes as above without acute fracture or subluxation. ACT 112: Negative or not required by law. Electronically signed by: Darrel Haney M.D. 01/15/2024 8:57 PM
[2024-01-16] MEDS: chlordiazePOXIDE HCl 25 MG CAP PO SCH (02:11)
[2024-01-16 06:56] LABS: Basophils # (auto) 0.02 K/uL (0.00-0.20); Basophils % (auto) 0.7 %; Eosinophils # (auto) 0.11 K/uL (0.00-0.50); Eosinophils % (auto) 3.9 %; Hematocrit (blood only) 32.7 % (42.0-52.0); Hemoglobin 11.2 g/dl (14.0-18.0); Immature Granulocytes # (auto) 0.01 K/uL (0.01-0.20); Immature Granulocytes % (auto) 0.4 %; Lymphocytes # (auto) 0.75 K/uL (1.20-3.40); Lymphocytes % (auto) 26.8 %; Mean Corpuscular Hemoglobin 33.3 pg (25.0-34.0); Mean Corpuscular Hgb Conc 34.3 g/dL (32.0-36.0); Mean Corpuscular Volume 97.3 fL (80.0-100.0); Mean Platelet Volume 11.2 fL (9.4-12.4); Monocytes % (auto) 10.7 %; Neutrophils # (auto) 1.61 K/uL (1.40-6.50); Neutrophils % (auto) 57.5 %; Platelet Count 55 K/uL (130-400); RDW Coefficient of Variation 13.5 % (11.5-14.5); RDW Standard Deviation 48.5 fL (36.4-46.3); Red Blood Count 3.36 M/uL (4.70-6.10)
[2024-01-16 07:28] LABS: BUN Creatinine Ratio 11.3 (10-20); Bilirubin Direct 0.6 mg/dl (0-0.2); Bilirubin,Total 1.7 mg/dl (0.2-1.0); Calcium 7.5 mg/dl (8.6-10.3); Creatinine Clr Calc Pharmacy 137.9 ml/min; Magnesium 1.1 mg/dl (1.7-2.4); Potassium 3.6 mmol/L (3.5-5.1); Total Protein 6.7 gm/dl (6.0-8.3)
[2024-01-16] MEDS ORDERED: INFLUENZA VACC TS2024-25(6m+)/PF (IIV3) 0.5mL Syr IM ONE (09:00)
[2024-01-16] MEDS: THIAMINE HCL 100 MG in SYRINGE 9 ML IV SCH (09:26)
[2024-01-16] MEDS: MAGNESIUM SULFATE / D5W 1 GM/100 ML BAG IV SCH (09:26)
[2024-01-16] MEDS: MAGNESIUM CHLORIDE W/CALCIUM 64MG DELAYED REL TAB PO SCH (11:10)
--- NOTE | 2024-01-16 19:23 | Hospitalist Progress Note ---
Date of Service January 16, 2024 delayed entry date of service noted above Assessment & Plan (1) Alcohol withdrawal: Plan: Alcohol withdrawal: Librium protocol, Alcohol withdrawal protocol continue protocol Low back pain s/p Fall Xray ordered PRN Oxycodone Hypokalemia, hypomagnesemia secondary to alcoholism and home diuretic Rx replacements ordered hx alcoholic cirrhosis, no overt decompensation Alcoholic hepatitis, likely good prognosis on computed Maddrey DF score with normal coags. monitor LFTs Chronic pancytopenia secondary to liver disease, hemoglobin better than baseline likely secondary to hemoconcentration monitor CBC DVT prophylaxis. SCDs Re: Thrombocytopenia Full code Admission and Anticipated Discharge Date Admission Date: January 14, 2024 Subjective ff up for alcohol withdrawal etc seen resting in bed, comfortable feels ok overall has some tremors, anxiety but no hallucinations no chest pain, dyspnea, palpitations, dizziness no other symptoms Review of Systems Review of Systems: all noted and negative except for above Physical Exam Physical Exam: General- oriented x 3, not in distress, speaks in sentences with no effort or accessory muscle use Eyes- anicteric Neck- no JVD Lungs- clear breath sounds bilaterally, no crackles or wheezing Heart- normal rate, regular rhythm; no murmurs Abdomen- normal bowel sounds, nondistended, soft, no tenderness Extremities- no pretibial edema, no calf tenderness Neuro- alert, oriented x 3; no gross focal neurologic deficits Skin- warm & dry Results & Data Results & Data Vital Signs (Past 12 Hours) Vital Signs Temp Pulse Pulse Resp BP BP Pulse Ox 01/16/24 15:39 36.9 C 69 18 151/87 H 96 01/16/24 13:48 69 01/16/24 11:41 36.7 C 68 18 133/80 98 01/16/24 07:53 37.1 C 75 18 152/86 H 95 O2 Del Method 01/16/24 15:39 Room Air 01/16/24 13:48 01/16/24 11:41 Room Air 01/16/24 07:53 Room Air all noted and reviewed including below
[2024-01-17] MEDS ORDERED: GABAPENTIN 600 MG TAB PO SCH (00:30)
[2024-01-17 09:44] LABS: Albumin Globulin Ratio 0.8 (0.9-2); Albumin Level 3.2 gm/dl (3.4-5.0); Bilirubin,Total 1.3 mg/dl (0.2-1.0); Calcium 8.2 mg/dl (8.6-10.3); Creatinine Clr Calc Pharmacy 127.6 ml/min; Globulin 4.1 gm/dl (2.5-4.0); Magnesium 1.5 mg/dl (1.7-2.4); Potassium 3.8 mmol/L (3.5-5.1); Total Protein 7.3 gm/dl (6.0-8.3)
[2024-01-17 10:57] LABS: Basophils # (auto) 0.04 K/uL (0.00-0.20); Eosinophils # (auto) 0.15 K/uL (0.00-0.50); Eosinophils % (auto) 3.7 %; Hematocrit (blood only) 36.9 % (42.0-52.0); Hemoglobin 12.1 g/dl (14.0-18.0); Immature Granulocytes # (auto) 0.01 K/uL (0.01-0.20); Immature Granulocytes % (auto) 0.2 %; Lymphocytes # (auto) 0.96 K/uL (1.20-3.40); Lymphocytes % (auto) 23.9 %; Mean Corpuscular Hemoglobin 33.4 pg (25.0-34.0); Mean Corpuscular Hgb Conc 32.8 g/dL (32.0-36.0); Mean Corpuscular Volume 101.9 fL (80.0-100.0); Mean Platelet Volume 10.6 fL (9.4-12.4); Monocytes # (auto) 0.42 K/uL (0.11-0.59); Monocytes % (auto) 10.5 %; Neutrophils # (auto) 2.43 K/uL (1.40-6.50); Neutrophils % (auto) 60.7 %; Platelet Count 63 K/uL (130-400); RDW Coefficient of Variation 13.9 % (11.5-14.5); RDW Standard Deviation 51.9 fL (36.4-46.3); Red Blood Count 3.62 M/uL (4.70-6.10); White Blood Count 4.01 K/ul (4.8-10.8)
--- NOTE | 2024-01-17 16:46 | Hospitalist Progress Note ---
Date of Service January 17, 2024 Assessment & Plan (1) Alcohol withdrawal: Plan: Alcohol withdrawal: LARISA score 4 continue Librium protocol, Alcohol withdrawal protocol Low back pain s/p Fall Xray ordered: no fracture PRN Oxycodone Hypokalemia, hypomagnesemia secondary to alcoholism and home diuretic Rx replacements ordered repeat BMP improving hx alcoholic cirrhosis, no overt decompensation Alcoholic hepatitis, likely good prognosis on computed Maddrey DF score with normal coags. monitor LFTs Chronic pancytopenia secondary to liver disease, hemoglobin better than baseline likely secondary to hemoconcentration monitor CBC DVT prophylaxis. SCDs Re: Thrombocytopenia Full code Admission and Anticipated Discharge Date Admission Date: January 14, 2024 Subjective ff up for alcohol withdrawal etc seen resting in bed, not in distress feels ok overall still has some tremors no hallucinations, confusion back pain improving no other symptoms Review of Systems Review of Systems: all noted and negative except for above Physical Exam Physical Exam: General- oriented x 3, not in distress, speaks in sentences with no effort or accessory muscle use Eyes- anicteric Neck- no JVD Lungs- clear breath sounds bilaterally Heart- normal rate, regular rhythm; no murmurs Abdomen- normal bowel sounds, nondistended, soft, nontender Extremities- no pretibial edema, no calf tenderness mild bl hand tremors Neuro- alert, oriented x 3; no gross focal neurologic deficits Skin- warm & dry Results & Data Results & Data Vital Signs (Past 12 Hours) Vital Signs Temp Pulse Pulse Resp BP Pulse Ox O2 Del Method 01/17/24 16:30 89 01/17/24 16:04 36.8 C 71 16 158/90 H 95 Room Air 01/17/24 11:38 37 C 80 12 138/79 96 Room Air 01/17/24 08:13 37.9 C H 77 12 142/90 H 93 Room Air 01/17/24 07:28 76 all noted and reviewed including below
[2024-01-17] MEDS: LORazepam 2 MG/1 ML VIAL IV PRN (16:53)
[2024-01-18] MEDS: chlordiazePOXIDE HCl 5 MG CAP PO SCH (06:19)
[2024-01-18 08:28] LABS: BUN Creatinine Ratio 11.6 (10-20); Creatinine Clr Calc Pharmacy 123.9 ml/min; Magnesium 1.4 mg/dl (1.7-2.4); Potassium 3.8 mmol/L (3.5-5.1)
[2024-01-18] MEDS ORDERED: GABAPENTIN 600 MG TAB PO SCH (12:30)
--- NOTE | 2024-01-18 13:25 | Hospitalist Progress Note ---
Date of Service January 18, 2024 Assessment & Plan (1) Alcohol withdrawal: Plan: Alcohol withdrawal: Librium protocol, Alcohol withdrawal protocol LARISA score mostly 2 Continue tapering Librium As needed Ativan Low back pain s/p Fall Xray ordered: no fractures PRN Oxycodone Hypokalemia, hypomagnesemia secondary to alcoholism and home diuretic Rx replacements ordered IV magnesium today hx alcoholic cirrhosis, no overt decompensation Alcoholic hepatitis, likely good prognosis on computed Maddrey DF score with normal coags. monitor LFTs Chronic pancytopenia secondary to liver disease, hemoglobin better than baseline likely secondary to hemoconcentration monitor CBC DVT prophylaxis. SCDs Re: Thrombocytopenia Encouraged to ambulate frequently Full code Admission and Anticipated Discharge Date Admission Date: January 14, 2024 Subjective Follow-up for alcohol withdrawal, etc. Seen resting in bed, comfortable, not in distress States he feels okay overall Still having some mild tremors, mild anxiety but overall improving Back pain also improving Naproxen ambulation, no leg weakness or numbness No other new symptom Review of Systems Review of Systems: all noted and negative except for above Physical Exam Physical Exam: General- oriented x 3, not in distress, speaks in sentences with no effort or accessory muscle use Eyes- anicteric Neck- no JVD Lungs- clear breath sounds bilaterally, no rales/wheezes Heart- normal rate, regular rhythm; no murmurs Abdomen- normal bowel sounds, nondistended, soft, nontender Extremities- no pretibial edema, no calf tenderness mild hand tremors Neuro- alert, oriented x 3; no gross focal neurologic deficits Skin- warm & dry Results & Data Results & Data Vital Signs (Past 12 Hours) Vital Signs Temp Pulse Resp BP BP Pulse Ox O2 Del Method 01/18/24 11:53 37.0 C 74 18 125/87 96 Room Air 01/18/24 07:54 37.3 C 61 16 149/88 H 95 Room Air 01/18/24 03:56 37.1 C 64 18 118/71 95 Room Air all noted and reviewed including below
[2024-01-18] MEDS: MAGNESIUM SULFATE / D5W 1 GM/100 ML BAG IV ONE (16:08)
[2024-01-19 09:05] LABS: BUN Creatinine Ratio 10.5 (10-20); Calcium 9.3 mg/dl (8.6-10.3); Magnesium 1.4 mg/dl (1.7-2.4); Potassium 3.9 mmol/L (3.5-5.1)
[2024-01-19] MEDS: MAGNESIUM SULFATE / D5W 1 GM/100 ML BAG IV SCH (14:03)
--- NOTE | 2024-01-19 14:53 | Hospitalist Progress Note ---
Date of Service January 19, 2024 Assessment & Plan (1) Alcohol withdrawal: Plan: Alcohol withdrawal: Librium protocol, Alcohol withdrawal protocol LARISA score mostly 2 Continue tapering Librium As needed Ativan 01/18 Patient reports increased anxiety and shaking this morning LARISA score 2 so far Continue to monitor closely Anticipate discharge to home tomorrow Low back pain s/p Fall Xray ordered: no fractures PRN Oxycodone Hypokalemia, hypomagnesemia secondary to alcoholism and home diuretic Rx Magnesium 1.4 IV magnesium plus oral magnesium hx alcoholic cirrhosis, no overt decompensation Alcoholic hepatitis, likely good prognosis on computed Maddrey DF score with normal coags. monitor LFTs Chronic pancytopenia secondary to liver disease, hemoglobin better than baseline likely secondary to hemoconcentration monitor CBC DVT prophylaxis. SCDs Re: Thrombocytopenia Encouraged to ambulate frequently Full code Admission and Anticipated Discharge Date Admission Date: January 14, 2024 Subjective Follow-up for alcohol withdrawal, etc. Seen resting in bed, sleeping but easily awakened States he woke up feeling very anxious, and shaky No hallucinations, confusion, abdominal pain, nausea, fever or chills No other new symptoms Review of Systems Review of Systems: all noted and negative except for above Physical Exam Physical Exam: General- oriented x 3, not in distress, speaks in sentences with no effort or accessory muscle use Eyes- anicteric Neck- no JVD Lungs- clear breath sounds bilaterally, no rales/wheezes Heart- normal rate, regular rhythm; no murmurs Abdomen- normal bowel sounds, nondistended, soft, nontender Extremities- no pretibial edema, no calf tenderness (+) mild hand tremors Neuro- alert, oriented x 3; no gross focal neurologic deficits Skin- warm & dry Results & Data Results & Data Vital Signs (Past 12 Hours) Vital Signs Temp Pulse Pulse Resp BP Pulse Ox O2 Del Method 01/19/24 11:33 36.9 C 71 16 156/84 H 96 Room Air 01/19/24 08:11 36.5 C 69 16 157/93 H 96 Room Air 01/19/24 07:10 72 01/19/24 04:00 36.9 C 76 18 138/86 96 Room Air
[2024-01-20 08:48] LABS: Magnesium 1.6 mg/dl (1.7-2.4); Potassium 4.6 mmol/L (3.5-5.1)
[2024-01-20 11:33] VITALS: RESP 16; TEMP 98.6; O2SAT 95
--- NOTE | 2024-01-20 12:39 | Hospitalist Progress Note ---
Date of Service January 20, 2024 Assessment & Plan (1) Alcohol withdrawal: Plan: Alcohol withdrawal: Librium protocol, Alcohol withdrawal protocol LARISA score mostly 2 Continue tapering Librium As needed Ativan 01/18 Patient reports increased anxiety and shaking this morning LARISA score 2 so far Continue to monitor closely Anticipate discharge to home tomorrow 01/19 feels better overall LARISA 2-3 overnight no signs of alcohol withdrawal as per patient Low back pain s/p Fall Xray ordered: no fractures PRN Oxycodone given advised to take tylenol 2g per day and Ibuprofen PRN Hypokalemia, hypomagnesemia secondary to alcoholism and home diuretic Rx replaced required IV and PO replacements continue K and Mg supplement at home ff up closely as outpatient History of alcoholic cirrhosis no overt decompensation Alcoholic hepatitis, likely good prognosis on computed Maddrey DF score with normal coags. monitor LFTs Chronic pancytopenia secondary to liver disease, hemoglobin better than baseline likely secondary to hemoconcentration monitor CBC d/c home ff up with PCP in 1 week Admission and Anticipated Discharge Date Admission Date: January 14, 2024 Subjective Follow-up for alcohol withdrawal, etc. Seen resting in bed, comfortable, not in distress States he feels fine overall No tremors, anxiety, hallucinations or confusion Still having some pain over the tailbone but improving No problems with ambulation No other new symptoms Agreeable for discharge today Review of Systems Review of Systems: all noted and negative except for above Physical Exam Physical Exam: General- oriented x 3, not in distress, speaks in sentences with no effort or accessory muscle use Eyes- anicteric Neck- no JVD Lungs- clear breath sounds bilaterally, no rales/wheezes Heart- normal rate, regular rhythm; no murmurs Abdomen- normal bowel sounds, nondistended, soft, nontender Extremities- no pretibial edema, no calf tenderness no tremors Neuro- alert, oriented x 3; no gross focal neurologic deficits Skin- warm & dry Results & Data Results & Data Vital Signs (Past 12 Hours) Vital Signs Temp Pulse Pulse Resp BP Pulse Ox O2 Del Method 01/20/24 11:32 37 C 74 16 133/85 95 Room Air 01/20/24 07:53 36.8 C 81 18 152/82 H 97 Room Air 01/20/24 05:45 73 01/20/24 03:49 36.8 C 89 18 148/84 H 95 Room Air all noted and reviewed including below
[2024-01-20 12:58] VITALS: BP 126/77; PULSE 82
--- NOTE | 2024-01-20 17:40 | Discharge Summary ---
Discharge Summary Date of Service January 20, 2024 Principal Dx & Hospital Course #1 = Principal Diagnosis (1) Alcohol withdrawal: Alcohol withdrawal: Librium protocol, Alcohol withdrawal protocol LARISA score mostly 2 Continue tapering Librium As needed Ativan 01/18 Patient reports increased anxiety and shaking this morning LARISA score 2 so far Continue to monitor closely Anticipate discharge to home tomorrow 01/19 feels better overall LARISA 2-3 overnight no signs of alcohol withdrawal as per patient Low back pain s/p Fall Xray ordered: no fractures PRN Oxycodone given advised to take tylenol 2g per day and Ibuprofen PRN Hypokalemia, hypomagnesemia secondary to alcoholism and home diuretic Rx replaced required IV and PO replacements continue K and Mg supplement at home ff up closely as outpatient History of alcoholic cirrhosis no overt decompensation Alcoholic hepatitis, likely good prognosis on computed Maddrey DF score with normal coags. monitor LFTs Chronic pancytopenia secondary to liver disease, hemoglobin better than baseline likely secondary to hemoconcentration monitor CBC d/c home ff up with PCP in 1 week Admission HPI Per Admitting Provider History obtained from patient and records. Medical history significant for alcoholic cirrhosis, history of esophageal varices, history of alcohol withdrawal seizures, chronic pancytopenia (baseline hemoglobin of 11 ), ongoing alcohol abuse. Recent confinement last month for alcohol withdrawal and C. difficile diarrhea. Patient completed vancomycin course. Patient declined inpatient rehab due to work. Patient started drinking again a week after discharge. Denies depression or suicidality. Patient fell off his bed today resulting in some facial trauma. No chest pain, no SOB, LOC. Patient wants to try to detox again. Medical History as above Surgical History : Tonsillectomy Family History : DM, asthma, prostate cancer, stroke Personal/Social history : Non-smoker, alcohol abuse, currently unemployed Updated Medication List Medication Instructions Recorded Confirmed Type buspirone 5 mg tablet 5 mg PO BID 06/10/18 01/14/24 History nadolol 20 mg tablet 20 mg PO HS 06/10/18 01/14/24 History ursodiol 300 mg capsule 300 mg PO BID 06/10/18 01/14/24 History furosemide 20 mg tablet 20 mg PO QAM 11/14/22 01/14/24 History spironolactone 25 mg tablet 25 mg PO QAM 11/14/22 01/14/24 History citalopram 10 mg tablet 10 mg PO QAM 04/09/23 01/14/24 History folic acid 1 mg tablet 1 mg PO QAM #30 tabs 06/06/23 01/14/24 Rx cyanocobalamin (vitamin B-12) 250 250 mcg PO QAM 07/03/23 01/14/24 History mcg tablet (Vitamin B-12) gabapentin 300 mg capsule 300 mg PO TID 07/03/23 01/14/24 History pantoprazole 40 mg tablet,delayed 40 mg PO QAM 08/01/23 01/14/24 History release potassium chloride 20 mEq 20 meq PO QAM #30 tabs 08/27/23 01/14/24 Rx tablet,extended release(part/cryst) calcium 500 mg (as 1 tab PO BID 11/04/23 01/14/24 History carbonate)-vitamin D3 5 mcg (200 unit) tablet (Oyster Shell Calcium-Vitamin D3) ergocalciferol (vitamin D2) 1,250 1,250 mcg PO WK 11/04/23 01/14/24 History mcg (50,000 unit) capsule magnesium chloride 64 mg 64 mg PO BID #60 tabs 12/25/23 01/14/24 Rx (magnesium chloride) tablet,delayed release (Mag 64) thiamine mononitrate (vit B1) 100 100 mg PO QAM 01/14/24 01/14/24 History mg tablet (Vitamin B-1 (mononitrate)) Hospital Stay Data Consultations 01/14/24 22:19 ED Decision to Admit Stat Diagnostic Imagining Performed 01/14/24 20:31 CT cervical spine wo con Stat CT head/brain wo con Stat Pending Results Patient Have Any Pending Studies at Discharge: No Discharge Instructions Given to Patient (Per Discharging Provider) all noted and reviewed including below
== END 2024-01-20 13:08 | disposition home or self-care (01) | DRG 897 ==
LOC: ED 19:36 → 2N 23:50

== ENCOUNTER 2024-01-29 18:29 | Inpatient (IN) ==
[2024-01-29] MEDS ORDERED: LORazepam 2 MG/1 ML VIAL IV PRN ×3 (18:56)
[2024-01-29] MEDS ORDERED: Ativan IV Alcohol Withdrawal--Active Protocol IV PRN (18:56)
--- NOTE | 2024-01-29 19:04 | Emergency Department Note ---
Impression & Plan Alcohol intoxication, Electrolyte abnormality, Alcohol dependence, Fall, Abrasion of finger ED Provider Note NAME: ANDREA ADAME AGE: 48 SEX: M : 1975 ARRIVES VIA: Walk-In INFORMANT: Patient, father ED PROVIDER(S): Ryan Dong MD CHIEF COMPLAINT: Detox request MEDICAL DECISION MAKING: Patient presents with father due to concern for detox request. IV was established and blood work was obtained. CT head performed as the patient reportedly had a fall. Patient denies any head neck chest back or abdominal pain. No extremity pain. Patient's blood work shows a normal white count hemoglobin and platelet count. The patient's kidney function is unremarkable. Mild elevation in sodium 146 with a potassium of 3.2. Calcium of 8. Patient was ordered calcium for replacement. Alcohol 439. Magnesium level ordered. Patient does have alcohol withdrawal protocols initiated for Ativan but the patient's last drink was only several hours prior to arrival the patient's current alcohol is 439. Does not appear tremulous at this time. As the patient does want to go to detox/rehab believe that is best completed in hospital as he likely would have significant withdrawal symptoms going directly to rehab. I did speak the on-call hospitalist service Dr. Mireles and the patient was admitted to the medicine service. Discussion w/ other healthcare providers: Dr. Mireles inpatient medicine service Prior /Outside records reviewed: None Differential diagnosis: Alcohol intoxication, toxicologic, infection, hypoglycemia, electrolyte abnormalities, cardiac sources, intracerebral event, neurologic, trauma, as well as other pathologies. Diagnostics, as interpreted by me: ECG: Normal sinus rhythm, rate of 83, normal intervals, normal axis, Q-wave in lead III no ST elevations T wave versions anteriorly. EKG appears grossly unchanged from comparison December 21, 2023 Cardiac monitoring: An order was placed for continuous cardiac monitoring. The monitor shows a rate of 88 with sinus rhythm. Patient was placed on pulse oximetry Medical decision rules: None Imaging studies: I informally interpreted the patient's CT head does not show obvious ICH with formal report to follow. HPI: Patient presents due to concern for requesting detox. Patient denies any abdominal pain or nausea vomiting. Patient is accompanied by his father. Patient reportedly had a fall. Does not complain of any head or neck pain but did have some abrasions to the fingers. No reported vomiting. He does admit to last drinking 3 hours ago. Patient states that he drank half a gallon of tequila today. PAST MEDICAL HISTORY: See Below PAST SURGICAL HISTORY: See Below SOCIAL HISTORY: See Below HOME MEDICATIONS: See Below ALLERGIES: See Below VITALS: See Below PHYSICAL EXAMINATION: GENERAL: Tearful, clinically intoxicated. EYE EXAM: Normal conjunctiva. PERRL, no anisocoria and EOM's grossly intact w/o pain. OROPHARYNX: Moist mucus membranes, grossly normal dentition. NECK: Trachea midline, no stridor. LUNGS: Clear to auscultation. Normal chest wall mechanics. HEART: NSR, no MRG. ABDOMEN: Abdomen soft, non-tender, no masses, no rebound or guarding. BACK: No CVA TTP. SKIN: No rashes and no bruising. UPPER EXTREMITIES: Abrasions noted to the fingers. LOWER EXTREMITIES: Grossly normal, no edema. NEURO EXAM: Awake and alert follows basic commands, cranial nerves II-XII grossly intact, mildly slurred speech, moves all 4 extremities. Past Med/Surg History Problem List (Updated 01/29/24 @ 20:48 by Ryan Dong MD) Abrasion of finger (Acute) Fall (Acute) Alcohol dependence (Acute) Electrolyte abnormality (Acute) Alcohol intoxication (Acute) Hypokalemia (Acute) Alcohol abuse (Acute) Prolonged QT interval (Acute) Alcoholic cirrhosis Acute hypokalemia (Acute) Nausea & vomiting (Acute) Thrombocytopenia (Acute) Transaminitis (Acute) Hypomagnesemia (Acute) Alcohol withdrawal (Acute) Alcoholic hepatitis (Acute) Alcohol withdrawal (Acute) Esophageal varices Transaminitis (Acute) Medical History Cholecystitis Choledocholithiasis Depression Anxiety UGIB (upper gastrointestinal bleed) Thrombocytopenia Ascites Alcohol abuse Alcoholic cirrhosis of liver Esophageal varices Portal hypertension History of macrocytic anemia History of alcohol abuse Surgical History History of esophagogastroduodenoscopy (EGD) Including procedures for esophageal varices banding History of tonsillectomy Family History Mother Diabetes Father Prostate cancer Other No family history of adverse response to anesthesia Social History Smoking Status: Unknown if ever smoked Tobacco Type: Smokeless Tobacco (Dip or Chew) Second Hand Exposure: No; Do You Dip or Chew Tobacco: Yes; Hx Alcohol Use: Yes Alcohol type: hard liquor Hx Substance Use: No Preferred Language: Yoruba Communication Ability: Effective Photoengraving Apprentice Required: No Beliefs That Will Affect Care: None Current Living Situation: Alone Current Living Situation Comment: lives with parents Feels Safe at Home: Yes Assistive Devices: None Allergies Allergies Allergy/AdvReac Type Severity Reaction Status Date / Time aspirin AdvReac Intermediate PT STATES Verified 11/04/23 21:57 "HAPPENED A CHILD--BLOODY NOSE" Home Meds Home Medications Medication Instructions Recorded Confirmed buspirone 5 mg tablet 5 mg PO BID 06/10/18 01/14/24 nadolol 20 mg tablet 20 mg PO HS 06/10/18 01/14/24 ursodiol 300 mg capsule 300 mg PO BID 06/10/18 01/14/24 furosemide 20 mg tablet 20 mg PO QAM 11/14/22 01/14/24 spironolactone 25 mg tablet 25 mg PO QAM 11/14/22 01/14/24 citalopram 10 mg tablet 10 mg PO QAM 04/09/23 01/14/24 cyanocobalamin (vitamin B-12) 250 250 mcg PO QAM 07/03/23 01/14/24 mcg tablet (Vitamin B-12) gabapentin 300 mg capsule 300 mg PO TID 07/03/23 01/14/24 pantoprazole 40 mg tablet,delayed 40 mg PO QAM 08/01/23 01/14/24 release calcium 500 mg (as 1 tab PO BID 11/04/23 01/29/24 carbonate)-vitamin D3 5 mcg (200 unit) tablet (Oyster Shell Calcium-Vitamin D3) ergocalciferol (vitamin D2) 1,250 1,250 mcg PO WK 11/04/23 01/14/24 mcg (50,000 unit) capsule thiamine mononitrate (vit B1) 100 100 mg PO QAM 01/14/24 01/14/24 mg tablet (Vitamin B-1 (mononitrate)) Previous Rx's Medication Instructions Recorded folic acid 1 mg tablet 1 mg PO QAM #30 tabs 06/06/23 potassium chloride 20 mEq 20 meq PO QAM #30 tabs 08/27/23 tablet,extended release(part/cryst) magnesium chloride 64 mg 64 mg PO BID #60 tabs 12/25/23 (magnesium chloride) tablet,delayed release (Mag 64) Results & Data (ED) Vital Signs Vital Signs - 24 hr 01/29/24 18:31 01/29/24 18:58 01/29/24 19:01 Temperature 36.9 C Temperature Source Temporal Artery Scan Pulse Rate 104 H 96 H Pulse Rate [Finger] 83 Respiratory Rate 20 18 Respiratory Effort / Characteristics Non-Labored Spontaneous Non-Labored Spontaneous Respiratory Depth Normal Normal Blood Pressure 145/99 H Blood Pressure [Right Arm] 152/106 H Blood Pressure Mean 114 Blood Pressure Mean [Right Arm] 121 Blood Pressure Position [Right Arm] Sitting Pulse Oximetry 97 94 Oxygen Delivery Method Room Air Room Air Sepsis Recent Fever Within 48 Hours No Sepsis New/Unexplained Change in Mental Status No Sepsis Action Taken by Nursing No Action Required 01/29/24 20:30 Temperature Temperature Source Pulse Rate Pulse Rate [Finger] 76 Respiratory Rate 18 Respiratory Effort / Characteristics Non-Labored Spontaneous Respiratory Depth Normal Blood Pressure Blood Pressure [Right Arm] 158/99 H Blood Pressure Mean Blood Pressure Mean [Right Arm] 118 Blood Pressure Position [Right Arm] Pulse Oximetry 95 Oxygen Delivery Method Room Air Sepsis Recent Fever Within 48 Hours Sepsis New/Unexplained Change in Mental Status Sepsis Action Taken by [facility] Medications Current Medication List: was personally reviewed by me Laboratory Data Attestation: I reviewed the patient's lab results. 01/29/24 19:25 01/29/24 19:25 Lab Results 01/29/24 Range/Units 19:25 WBC 6.26 (4.8-10.8) K/ul RBC 4.58 L (4.70-6.10) M/uL Hgb 15.3 (14.0-18.0) g/dl Hct 43.9 (42.0-52.0) % MCV 95.9 (80.0-100.0) fL MCH 33.4 (25.0-34.0) pg MCHC 34.9 (32.0-36.0) g/dL RDW Std Deviation 47.6 H (36.4-46.3) fL RDW Coeff of Hang 13.4 (11.5-14.5) % Plt Count 261 (130-400) K/uL MPV 9.6 (9.4-12.4) fL Immature Gran % (Auto) 0.2 % Neut % (Auto) 48.2 % Lymph % (Auto) 38.5 % [place] % (Auto) 6.1 % Eos % (Auto) 4.6 % Baso % (Auto) 2.4 % Neut # (Auto) 3.02 (1.40-6.50) K/uL Lymph # (Auto) 2.41 (1.20-3.40) K/uL [place] # (Auto) 0.38 (0.11-0.59) K/uL Eos # (Auto) 0.29 (0.00-0.50) K/uL Baso # (Auto) 0.15 (0.00-0.20) K/uL Immature Gran # (Auto) 0.01 (0.01-0.20) K/uL PT 13.3 H (9.0-12.0) Seconds INR 1.2 H (0.9-1.1) APTT 29 (21-31) Seconds PTT Ratio 1.1 Sodium 146 H (136-145) mmol/L Potassium 3.2 L (3.5-5.1) mmol/L Chloride 109 H (98-107) mmol/L Carbon Dioxide 26 (21-32) mmol/L Anion Gap 11 (3-11) BUN 5 L (6-23) mg/dl Creatinine 0.73 (0.6-1.4) mg/dl Est Cr Clr Drug Dosing 117.1 ml/min eGFR 110.84 BUN/Creatinine Ratio 6.8 L (10-20) Glucose 115 H (70-99(Fasting)) mg/dl Calcium 8.0 L (8.6-10.3) mg/dl Total Bilirubin 0.8 (0.2-1.0) mg/dl AST 100 H (13-39) U/L ALT 33 (7-52) U/L Alkaline Phosphatase 109 H (34-104) U/L Total Protein 8.0 (6.0-8.3) gm/dl Albumin 3.4 (3.4-5.0) gm/dl Globulin 4.6 H (2.5-4.0) gm/dl Albumin/Globulin Ratio 0.7 L (0.9-2) Ethyl Alcohol mg/dL 439.6 H (<10.0) mg/dl Administered Medications Folic Acid (Folic Acid 1 Mg Tab) 1 mg PO QAM LANDRY Stop: 02/28/24 18:59 Last Admin: 01/29/24 19:42 Dose: 1 mg Documented By: NANCY Multivitamins/Minerals (Cerovite Adv Formula Tab) 1 tab PO QAM LANDRY Stop: 02/28/24 18:59 Last Admin: 01/29/24 19:42 Dose: 1 tab Documented By: NANCY Thiamine HCl (Thiamine Hcl 100 Mg Tab) 100 mg PO QAM LANDRY Stop: 02/28/24 18:59 Last Admin: 01/29/24 19:42 Dose: 100 mg Documented By: NANCY Discontinued Medications Calcium Gluconate () 1,000 mg in 60 mls @ 240 mls/hr IV NOW STA Stop: 01/29/24 20:22 Last Admin: 01/29/24 20:20 Dose: 240 mls/hr Documented By: NANCY Imaging Data Radiologist's Impression: Head CT 01/29/24 18:56 CT SCAN OF THE BRAIN WITHOUT IV CONTRAST CLINICAL HISTORY: Fall. COMPARISON STUDY: CT of the brain dated 01/14/2024. TECHNIQUE: Unenhanced axial CT scan of the brain is performed from the vertex to the skull base. A dose lowering technique was utilized adhering to the principles of ALARA. CT DOSE: 625.8 mGy.cm FINDINGS: Brain parenchyma: The brain parenchyma is normal in appearance. There is no hemorrhage, mass effect, or evidence of acute territorial ischemia by CT criteria. Villanueva-white matter differentiation is preserved. No extra-axial fluid collection is seen. Ventricles, sulci, cisterns: Normal in configuration. Intracranial vasculature: There is mild atherosclerotic calcification of the cavernous carotid arteries. Calvarium: Unremarkable. Sinuses and mastoids: The visualized paranasal sinuses are clear. The mastoid air cells are well pneumatized. Orbits: The bony orbits are grossly intact. IMPRESSION: There is no hemorrhage, mass effect, or evidence of acute territorial ischemia by CT criteria. ACT 112: Negative or not required by law. Electronically signed by: Darrin Tran M.D. 01/29/2024 7:22 PM Discharge Plan Visit Data Chief Complaint: Alcohol Withdrawal Stated Complaint: ALCHOLIC, SHAKEY, FALLS ALOT ED Provider: Ryan Dong Discharge Problem: Alcohol intoxication, Electrolyte abnormality, Alcohol dependence, Fall, Abrasion of finger Forms Stand Alone Forms: My [facility], Suicide Prevention Resources Prescriptions Prescriptions: No Action buspirone 5 mg Tablet 5 mg PO BID nadolol 20 mg Tablet 20 mg PO QAM ursodiol 300 mg Capsule 300 mg PO BID spironolactone 25 mg tablet 25 mg PO QAM furosemide 20 mg tablet 20 mg PO QAM citalopram 10 mg tablet 10 mg PO QAM pantoprazole 40 mg tablet,delayed release (DR/EC) 40 mg PO QAM potassium chloride 20 mEq Tablet,Er Particles/Crystals 20 meq PO QAM Qty: 30 0RF calcium carbonate-vitamin D3 [Oyster Shell Calcium-Vit D3] 500 mg-5 mcg (200 unit) Tablet 1 tab PO BID ergocalciferol (vitamin D2) 1,250 mcg (50,000 unit) capsule 1,250 mcg PO WK Rx Instructions: MONDAYS thiamine mononitrate (vit B1) [Vitamin B-1 (mononitrate)] 100 mg tablet 100 mg PO QAM magnesium chloride [Mag 64] 64 mg tablet,delayed release (DR/EC) 64 mg PO AMHS folic acid 1 mg Tablet 1 mg PO QAM Qty: 30 0RF gabapentin 300 mg capsule 300 mg PO TID cyanocobalamin (vitamin B-12) [Vitamin B-12] 250 mcg tablet 250 mcg PO QAM Referrals Referrals: Michelle Borrego DO [Primary Care Provider] - Discharge Problem: Alcohol intoxication Qualifiers: Complication of substance-induced condition: uncomplicated Qualified Code(s): F 10.920 - Alcohol use, unspecified with intoxication, uncomplicated Alcohol dependence Qualifiers: Substance use status: uncomplicated Qualified Code(s): F10.20 - Alcohol dependence, uncomplicated Fall Qualifiers: Encounter type: initial encounter Qualified Code(s): W19.XXXA - Unspecified fall, initial encounter Abrasion of finger Qualifiers: Encounter type: initial encounter Qualified Code(s): S60.419A - Abrasion of unspecified finger, initial encounter
--- NOTE | 2024-01-29 19:23 | CT Scan Report ---
CT SCAN OF THE BRAIN WITHOUT IV CONTRAST CLINICAL HISTORY: Fall. COMPARISON STUDY: CT of the brain dated 01/14/2024. TECHNIQUE: Unenhanced axial CT scan of the brain is performed from the vertex to the skull base. A d ose lowering technique was utilized adhering to the principles of ALARA. CT DOSE: 625.8 mGy.cm FINDINGS: Brain parenchyma: The brain parenchyma is normal in appearance. There is no hemorrhage, mass effect, or evidence of acute territorial ischemia by CT criteria. Villanueva-white matter differentiation is preser [place]. No extra-axial fluid collection is seen. Ventricles, sulci, cisterns: Normal in configuration. Intracranial vasculature: There is mild atherosclerotic calcification of the cavernous carotid arteri es. Calvarium: Unremarkable. Sinuses and mastoids: The visualized paranasal sinuses are clear. The mastoid air cells are well pneu matized. Orbits: The bony orbits are grossly intact. IMPRESSION: There is no hemorrhage, mass effect, or evidence of acute territorial ischemia by CT dickson bishop. ACT 112: Negative or not required by law. Electronically signed by: Darrin Tran M.D. 01/29/2024 7:22 PM
[2024-01-29] MEDS: CEROVITE ADV FORMULA TAB PO SCH (19:42)
[2024-01-29] MEDS: THIAMINE HCL 100 MG TAB PO SCH (19:42)
[2024-01-29] MEDS: FOLIC ACID 1 MG TAB PO SCH (19:42)
[2024-01-29 19:54] LABS: Basophils # (auto) 0.15 K/uL (0.00-0.20); Basophils % (auto) 2.4 %; Eosinophils # (auto) 0.29 K/uL (0.00-0.50); Eosinophils % (auto) 4.6 %; Hematocrit (blood only) 43.9 % (42.0-52.0); Hemoglobin 15.3 g/dl (14.0-18.0); Immature Granulocytes # (auto) 0.01 K/uL (0.01-0.20); Immature Granulocytes % (auto) 0.2 %; Lymphocytes # (auto) 2.41 K/uL (1.20-3.40); Lymphocytes % (auto) 38.5 %; Mean Corpuscular Hemoglobin 33.4 pg (25.0-34.0); Mean Corpuscular Hgb Conc 34.9 g/dL (32.0-36.0); Mean Corpuscular Volume 95.9 fL (80.0-100.0); Mean Platelet Volume 9.6 fL (9.4-12.4); Monocytes # (auto) 0.38 K/uL (0.11-0.59); Monocytes % (auto) 6.1 %; Neutrophils # (auto) 3.02 K/uL (1.40-6.50); Neutrophils % (auto) 48.2 %; Platelet Count 261 K/uL (130-400); RDW Coefficient of Variation 13.4 % (11.5-14.5); RDW Standard Deviation 47.6 fL (36.4-46.3); Red Blood Count 4.58 M/uL (4.70-6.10); White Blood Count 6.26 K/ul (4.8-10.8)
[2024-01-29 20:03] LABS: Albumin Globulin Ratio 0.7 (0.9-2); Albumin Level 3.4 gm/dl (3.4-5.0); BUN Creatinine Ratio 6.8 (10-20); Bilirubin,Total 0.8 mg/dl (0.2-1.0); Creatinine Clr Calc Pharmacy 117.1 ml/min; Globulin 4.6 gm/dl (2.5-4.0); Potassium 3.2 mmol/L (3.5-5.1)
[2024-01-29 20:16] LABS: INR 1.2 (0.9-1.1); Partial Thromboplastin Ratio 1.1; Partial Thromboplastin Time 29 Seconds (21-31); Prothrombin Time 13.3 Seconds (9.0-12.0)
[2024-01-29] MEDS: CALCIUM GLUCONATE 1,000 MG/60 ML BAG IV STA (20:20)
[2024-01-29] MEDS: POTASSIUM CHLORIDE PWD 20 MEQ PACK PO STA (21:00)
--- NOTE | 2024-01-29 21:07 | History & Physical Report ---
Date of Service January 29, 2024 Assessment & Plan (1) Alcohol withdrawal: Plan: Alcohol withdrawal Hypokalemia, hypomagnesemia secondary to alcoholism and home diuretic Rx hx alcoholic cirrhosis, no overt decompensation Alcoholic hepatitis, good prognosis on computed Maddrey DF score of 6.8 points. Chronic pancytopenia secondary to liver disease, hemoglobin currently within normal limits likely secondary to hemoconcentration Hyperglycemia rule out DM Admit to medical telemetry LARISA S, DT precautions Librium taper dose adjusted for liver disease Replace electrolytes IVF, Hold home diuretic for now until patient euvolemic Check hemoglobin A1c DVT prophylaxis. SCDs Re: Thrombocytopenia Full code Text document was generated using [employer] voice recognition software. It may contain grammatical or spelling errors. Kindly contact undersigned for clarification of any documentation item in question. History of Present Illness Chief Complaint: Detox, shaking Primary Care Provider: Michelle Borrego DO History obtained from patient and records. Medical history significant for alcoholic cirrhosis, history of esophageal varices, history of alcohol withdrawal seizures, chronic pancytopenia (baseline hemoglobin of 11), ongoing alcohol abuse. Monthly admissions since October 2023 for alcohol withdrawal. Recent confinement 2 weeks ago. Patient started drinking again shortly after discharge from the hospital. Denies depression or suicidality. Patient family convinced him to come to hospital today to attempt detox again. Patient has not seen PCP since discharge from the hospital. Denies headache, chest pain, SOB, abdominal pain. Denies recent falls but cannot explain dried blood on his hands. Medical History as above Surgical History : Tonsillectomy Family History : DM, asthma, prostate cancer, stroke Personal/Social history : Non-smoker, alcohol abuse, currently unemployed Allergies Allergy/AdvReac Type Severity Reaction Status Date / Time aspirin AdvReac Intermediate PT STATES Verified 11/04/23 21:57 "HAPPENED A CHILD--BLOODY NOSE" Home Medications Medication Instructions Recorded Confirmed Type buspirone 5 mg tablet 5 mg PO BID 06/10/18 01/29/24 History nadolol 20 mg tablet 20 mg PO QAM 06/10/18 01/29/24 History ursodiol 300 mg capsule 300 mg PO BID 06/10/18 01/29/24 History furosemide 20 mg tablet 20 mg PO QAM 11/14/22 01/29/24 History spironolactone 25 mg tablet 25 mg PO QAM 11/14/22 01/29/24 History citalopram 10 mg tablet 10 mg PO QAM 04/09/23 01/29/24 History folic acid 1 mg tablet 1 mg PO QAM #30 tabs 06/06/23 01/29/24 Rx cyanocobalamin (vitamin B-12) 250 250 mcg PO QAM 07/03/23 01/29/24 History mcg tablet (Vitamin B-12) gabapentin 300 mg capsule 300 mg PO TID 07/03/23 01/29/24 History pantoprazole 40 mg tablet,delayed 40 mg PO QAM 08/01/23 01/29/24 History release potassium chloride 20 mEq 20 meq PO QAM #30 tabs 08/27/23 01/29/24 Rx tablet,extended release(part/cryst) calcium 500 mg (as 1 tab PO BID 11/04/23 01/29/24 History carbonate)-vitamin D3 5 mcg (200 unit) tablet (Oyster Shell Calcium-Vitamin D3) ergocalciferol (vitamin D2) 1,250 1,250 mcg PO WK 11/04/23 01/29/24 History mcg (50,000 unit) capsule thiamine mononitrate (vit B1) 100 100 mg PO QAM 01/14/24 01/29/24 History mg tablet (Vitamin B-1 (mononitrate)) magnesium chloride 64 mg 64 mg PO AMHS 01/29/24 01/29/24 History (magnesium chloride) tablet,delayed release (Mag 64) zolpidem 5 mg tablet 5 mg PO HS PRN Sleep 01/29/24 01/29/24 History Past Med/Surg History Problem List (Updated 01/29/24 @ 20:48 by Ryan Dong MD) Abrasion of finger (Acute) Fall (Acute) Alcohol dependence (Acute) Electrolyte abnormality (Acute) Alcohol intoxication (Acute) Hypokalemia (Acute) Alcohol abuse (Acute) Prolonged QT interval (Acute) Alcoholic cirrhosis Acute hypokalemia (Acute) Nausea & vomiting (Acute) Thrombocytopenia (Acute) Transaminitis (Acute) Hypomagnesemia (Acute) Alcohol withdrawal (Acute) Alcoholic hepatitis (Acute) Alcohol withdrawal (Acute) Esophageal varices Transaminitis (Acute) Medical History Cholecystitis Choledocholithiasis Depression Anxiety UGIB (upper gastrointestinal bleed) Thrombocytopenia Ascites Alcohol abuse Alcoholic cirrhosis of liver Esophageal varices Portal hypertension History of macrocytic anemia History of alcohol abuse Surgical History History of esophagogastroduodenoscopy (EGD) Including procedures for esophageal varices banding History of tonsillectomy Family History Mother Diabetes Father Prostate cancer Other No family history of adverse response to anesthesia Social History Smoking Status: Unknown if ever smoked Tobacco Type: Smokeless Tobacco (Dip or Chew) Second Hand Exposure: No; Do You Dip or Chew Tobacco: Yes; Hx Alcohol Use: Yes Alcohol type: hard liquor Hx Substance Use: No Preferred Language: Spanish Communication Ability: Effective Strategic Planning Analyst Required: No Beliefs That Will Affect Care: None Current Living Situation: Alone Current Living Situation Comment: lives with parents Feels Safe at Home: Yes Assistive Devices: None Review of Systems Review of Systems: As per HPI, all other systems reviewed and negative Physical Exam Physical Exam: GENERAL: tremulous, apathetic, no respiratory distress SKIN: Pallor, warm HEENT: Pale palpebral conjunctivae, no ptosis, dry buccal mucosa NECK : Supple, no tenderness CHEST : CTA, no tenderness HEART : RRR, no obvious murmurs ABDOMEN: Some distention, no tenderness EXTREMITIES : Dried blood on some fingers fingers of right hand, no LE swelling/tenderness, no other conspicuous deformities noted NEUROLOGIC : Coherent, no facial asymmetry, tremulous, no other gross focality Results & Data Results & Data Vital Signs (Past 12 Hours) Vital Signs Temp Pulse Pulse Resp BP BP Pulse Ox 01/29/24 20:30 76 18 158/99 H 95 01/29/24 19:01 96 H 01/29/24 18:58 83 18 152/106 H 94 01/29/24 18:31 36.9 C 104 H 20 145/99 H 97 O2 Del Method 01/29/24 20:30 Room Air 01/29/24 19:01 01/29/24 18:58 Room Air 01/29/24 18:31 Room Air Laboratory Results Laboratory Results WBC 6.26 K/ul (4.8-10.8) 01/29/24 19: RBC 4.58 M/uL (4.70-6.10) L 01/29/24 19: Hgb 15.3 g/dl (14.0-18.0) 01/29/24 19: Hct 43.9 % (42.0-52.0) 01/29/24 19: MCV 95.9 fL (80.0-100.0) 01/29/24: MCH 33.4 pg (25.0-34.0) 01/29/24 19: MCHC 34.9 g/dL (32.0-36.0) 01/29/24: RDW Std Deviation 47.6 fL (36.4-46.3) H 01/29/24: RDW Coeff of Hang 13.4 % (11.5-14.5) 01/29/24: Plt Count 261 K/uL (130-400) 01/29/24: MPV 9.6 fL (9.4-12.4) 01/29/24 19: Immature Gran % (Auto) 0.2 % 01/29/24 19: Neut % (Auto) 48.2 % 01/29/24: Lymph % (Auto) 38.5 % 01/29/24 19:25 [place] % (Auto) 6.1 % 01/29/24 19:25 Eos % (Auto) 4.6 % 01/29/24: Baso % (Auto) 2.4 % 01/29/24: Neut # (Auto) 3.02 K/uL (1.40-6.50) 01/29/24 19: Lymph # (Auto) 2.41 K/uL (1.20-3.40) 01/29/24:25 [place] # (Auto) 0.38 K/uL (0.11-0.59) 01/29/24: Eos # (Auto) 0.29 K/uL (0.00-0.50) 01/29/24 19: Baso # (Auto) 0.15 K/uL (0.00-0.20) 01/29/24: Immature Gran # (Auto) 0.01 K/uL (0.01-0.20) 01/29/24 19:25 PT 13.3 Seconds (9.0-12.0) H 01/29/24 19:25 INR 1.2 (0.9-1.1) H 01/29/24 19:25 APTT 29 Seconds (21-31) 01/29/24 19:25 PTT Ratio 1.1 01/29/24 19:25 Sodium 146 mmol/L (136-145) H 01/29/24 19:25 Potassium 3.2 mmol/L (3.5-5.1) L 01/29/24 19:25 Chloride 109 mmol/L (98-107) H 01/29/24 19:25 Carbon Dioxide 26 mmol/L (21-32) 01/29/24 19:25 Anion Gap 11 (3-11) 01/29/24 19:25 BUN 5 mg/dl (6-23) L 01/29/24 19:25 Creatinine 0.73 mg/dl (0.6-1.4) 01/29/24 19:25 Est Cr Clr Drug Dosing 117.1 ml/min 01/29/24 19:25 eGFR 110.84 01/29/24 19:25 BUN/Creatinine Ratio 6.8 (10-20) L 01/29/24 19:25 Glucose 115 mg/dl (70-99(Fasting)) H 01/29/24 19:25 Calcium 8.0 mg/dl (8.6-10.3) L 01/29/24 19:25 Total Bilirubin 0.8 mg/dl (0.2-1.0) 01/29/24 19:25 AST 100 U/L (13-39) H 01/29/24 19:25 ALT 33 U/L (7-52) 01/29/24 19:25 Alkaline Phosphatase 109 U/L (34-104) H 01/29/24 19:25 Total Protein 8.0 gm/dl (6.0-8.3) 01/29/24 19:25 Albumin 3.4 gm/dl (3.4-5.0) 01/29/24 19:25 Globulin 4.6 gm/dl (2.5-4.0) H 01/29/24 19:25 Albumin/Globulin Ratio 0.7 (0.9-2) L 01/29/24 19:25 Ethyl Alcohol mg/dL 439.6 mg/dl (<10.0) H 01/29/24 19:[address] 01/29/24 18:56 CT SCAN OF THE BRAIN WITHOUT IV CONTRAST CLINICAL HISTORY: Fall. COMPARISON STUDY: CT of the brain dated 01/14/2024. TECHNIQUE: Unenhanced axial CT scan of the brain is performed from the vertex to the skull base. A dose lowering technique was utilized adhering to the principles of ALARA. CT DOSE: 625.8 mGy.cm FINDINGS: Brain parenchyma: The brain parenchyma is normal in appearance. There is no hemorrhage, mass effect, or evidence of acute territorial ischemia by CT criteria. Villanueva-white matter differentiation is preserved. No extra-axial fluid collection is seen. Ventricles, sulci, cisterns: Normal in configuration. Intracranial vasculature: There is mild atherosclerotic calcification of the cavernous carotid arteries. Calvarium: Unremarkable. Sinuses and mastoids: The visualized paranasal sinuses are clear. The mastoid air cells are well pneumatized. Orbits: The bony orbits are grossly intact. IMPRESSION: There is no hemorrhage, mass effect, or evidence of acute territorial ischemia by CT criteria. ACT 112: Negative or not required by law. Electronically signed by: Darrin rTan M.D. 01/29/2024 7:22 PM Diagnostic Findings EKG as per my interpretation :Rate 85, NSR, normal axis,inferior infarct, T wave abnormalities septal leads
[2024-01-29] MEDS ORDERED: PROMETHAZINE 6.25 MG/50.25 ML BAG IV PRN (21:09)
[2024-01-29] MEDS ORDERED: ACETAMINOPHEN 500 MG TAB PO PRN (21:09)
[2024-01-29] MEDS ORDERED: ZOLPIDEM TARTRATE 5 MG TAB PO PRN (21:10)
[2024-01-29 21:11] LABS: Magnesium 1.6 mg/dl (1.7-2.4)
[2024-01-29] MEDS: SODIUM CHLOR 0.45% + 20MEQ KCL 20 MEQ/1,000 ML BAG IV ONE (21:12)
[2024-01-29] MEDS: chlordiazePOXIDE HCl 25 MG CAP PO SCH (21:49)
[2024-01-29] MEDS: MAGNESIUM SULFATE / D5W 1 GM/100 ML BAG IV ONE (22:57)
[2024-01-29] MEDS: GABAPENTIN 300 MG CAP PO SCH (23:00)
[2024-01-29] MEDS: chlordiazePOXIDE ALCOHOL WITHDRAWL 25MG PO STA (23:06)
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
[2024-01-30] MEDS: LORazepam 2 MG/1 ML VIAL IV PRN (04:34)
[2024-01-30 07:10] LABS: Basophils # (auto) 0.08 K/uL (0.00-0.20); Basophils % (auto) 1.7 %; Eosinophils # (auto) 0.16 K/uL (0.00-0.50); Eosinophils % (auto) 3.4 %; Hematocrit (blood only) 36.1 % (42.0-52.0); Hemoglobin 12.2 g/dl (14.0-18.0); Immature Granulocytes # (auto) 0.01 K/uL (0.01-0.20); Immature Granulocytes % (auto) 0.2 %; Lymphocytes # (auto) 1.16 K/uL (1.20-3.40); Lymphocytes % (auto) 24.9 %; Mean Corpuscular Hemoglobin 32.8 pg (25.0-34.0); Mean Corpuscular Hgb Conc 33.8 g/dL (32.0-36.0); Mean Platelet Volume 9.8 fL (9.4-12.4); Monocytes # (auto) 0.48 K/uL (0.11-0.59); Monocytes % (auto) 10.3 %; Neutrophils # (auto) 2.76 K/uL (1.40-6.50); Neutrophils % (auto) 59.5 %; Platelet Count 169 K/uL (130-400); RDW Coefficient of Variation 13.2 % (11.5-14.5); RDW Standard Deviation 47.5 fL (36.4-46.3); Red Blood Count 3.72 M/uL (4.70-6.10); White Blood Count 4.65 K/ul (4.8-10.8)
[2024-01-30 07:15] LABS: Albumin Globulin Ratio 0.7 (0.9-2); Albumin Level 2.9 gm/dl (3.4-5.0); Bilirubin,Total 1.2 mg/dl (0.2-1.0); Creatinine Clr Calc Pharmacy 127.6 ml/min; Globulin 4.1 gm/dl (2.5-4.0); Magnesium 1.4 mg/dl (1.7-2.4); Potassium 3.6 mmol/L (3.5-5.1)
[2024-01-30 07:37] LABS: Estimated Average Glucose 91 mg/dl; Hemoglobin A1C 4.8 % (4.5-5.6)
--- NOTE | 2024-01-30 08:33 | Electrocardiogram Report ---
Test Reason : Blood Pressure : */* mmHG Vent. Rate : 83 BPM Atrial Rate : 83 BPM P-R Int : 142 ms QRS Dur : 96 ms QT Int : 414 ms P-R-T Axes : 46 47 39 degrees QTcB Int : 486 ms Normal sinus rhythm Possible Inferior infarct , age undetermined Abnormal ECG When compared with ECG of 21-Dec-2023 06:29, Borderline criteria for Inferior infarct are now Present T wave inversion less evident in Anterior leads Confirmed by Melchor Nguyen ([id number]) on 01/30/2024 8:32:49 AM Referred By: REFERRED SELF Confirmed By: Melchor Nguyen
[2024-01-30] MEDS: LORazepam 1 MG TAB PO PRN ×2 (09:00→14:51)
[2024-01-30] MEDS ORDERED: FOLIC ACID 1 MG TAB PO SCH (09:00)
[2024-01-30] MEDS ORDERED: THIAMINE MONONITRATE 100 MG PO SCH (09:00)
[2024-01-30] MEDS: MAGNESIUM OXIDE 400 MG TAB PO SCH (09:19)
[2024-01-30] MEDS: POTASSIUM CHLORIDE CRTAB 20 MEQ TABCR PO SCH (09:19)
[2024-01-30] MEDS: MAGNESIUM SULFATE / D5W 1 GM/100 ML BAG IV SCH (09:21)
[2024-01-30] MEDS: PANTOprazole 40 MG TAB PO SCH (10:16)
[2024-01-30] MEDS: ursodioL 300 MG CAP PO SCH (10:16)
[2024-01-30] MEDS: nadoloL 40 MG TAB PO SCH (10:16)
[2024-01-30] MEDS: CITALOPRAM 20 MG TAB PO SCH (10:17)
[2024-01-30] MEDS: CYANOCOBALAMIN (B-12) 500 MCG TABLET PO SCH (10:17)
[2024-01-30] MEDS: busPIRone 5 MG TAB PO SCH (10:18)
--- NOTE | 2024-01-30 11:17 | Hospitalist Progress Note ---
Date of Service January 30, 2024 Assessment & Plan (1) Alcohol intoxication: (2) Electrolyte abnormality: (3) Alcohol withdrawal: (4) Alcoholic cirrhosis: (5) Alcohol dependence: Plan Patient presents to the hospital with recurrent alcohol intoxication and electrolyte abnormalities. Replace potassium and magnesium Patient has been in and out of the hospital almost every 2 weeks. Time that he has been in the hospital he has been without alcohol. I have a low suspicion that the patient will experience severe withdrawal symptoms.over the last 4 to 6 weeks he has not had prolonged periods of time of intoxication that would put him at high risk for severe withdrawal. He has been in and out of the hospital for a good portion of those days. I informed patient of this. Interesting patient had significant tremors when I first woke him. As I was explaining to him that I had low suspicion that he would have severe withdrawal, discussing him about the naltrexone and outpatient treatment plans the tremors completely stopped. When I left the room he started to shake his hands again. Highly suspect that these tremors are intentional and are not a good measure of any type of withdrawal symptoms that he may be experiencing. Rapidly decrease his Librium taper Start naltrexone, I discussed this with him and explained to him that it would decrease his cravings. He expressed interest in trying this. Also instructed patient that it would be helpful if he would find a clinic outpatient that can potentially give him the Vivitrol injections and transition him to the treatment plan for his alcohol dependence. I did mention [facility] as a potential clinic where he could follow-up. Check electrolytes in a.m. Admission and Anticipated Discharge Date Admission Date: January 29, 2024 Subjective Patient states just generally he feels unwell. Physical Exam 2 Physical Exam: Constitutional: Sleeping, able to be awakened HEENT: Mucous membranes moist. Lungs: Clear to auscultation, decreased, no wheezes rales or rhonchi CV: S1-S2, regular Abdomen: Soft, nontender, nondistended Extremities: No significant edema Neuro: No focal deficits, patient with significant tremor, however it is definitely seems to be intentional Psych: Withdrawn Results & Data Results & Data Vital Signs (Past 12 Hours) Vital Signs Temp Pulse Pulse Resp BP Pulse Ox O2 Del Method 01/30/24 08:29 36.6 C 87 12 134/82 87 L Room Air 01/30/24 06:23 36.9 C 72 12 134/79 93 Room Air 01/30/24 05:39 78 01/30/24 03:55 36.6 C 79 16 126/70 93 Room Air Diagnostic Findings Reviewed imaging, laboratory and diagnostic studies. Pertinent findings as below. WBCs 4.6 Hemoglobin 12.2 Platelets 169 Potassium 3.6 Magnesium 1.4 Total bilirubin 1.2 AST 82 ALT 26 Alk phos 92 (1) Alcohol intoxication Complication of substance-induced condition: uncomplicated Qualified Code(s): F10.920 - Alcohol use, unspecified with intoxication, uncomplicated (3) Alcohol withdrawal Complication of substance-induced condition: uncomplicated Qualified Code(s): F10.930 - Alcohol use, unspecified with withdrawal, uncomplicated (4) Alcoholic cirrhosis Ascites presence: unspecified Qualified Code(s): K70.30 - Alcoholic cirrhosis of liver without ascites (5) Alcohol dependence Substance use status: uncomplicated Qualified Code(s): F10.20 - Alcohol dep endence, uncomplicated
[2024-01-30] MEDS ORDERED: LORazepam 1 MG TAB PO PRN (13:21)
[2024-01-30] MEDS ORDERED: Ativan PO Alcohol Withdrawal--Active Protocol PO PRN (13:21)
[2024-01-30] MEDS: NALTREXONE HCL 50 MG TAB PO SCH (17:21)
[2024-01-30 23:30] VITALS: O2SAT 95
[2024-01-30] MEDS ORDERED: chlordiazePOXIDE HCl 25 MG CAP PO SCH (23:30)
[2024-01-31 07:16] VITALS: BP 138/82; PULSE 58; RESP 17; TEMP 97.7
[2024-01-31] MEDS ORDERED: chlordiazePOXIDE ALCOHOL WITHDRAWL 50MG PO STA (08:30)
[2024-01-31 09:28] LABS: BUN Creatinine Ratio 14.7 (10-20); Calcium 8.5 mg/dl (8.6-10.3); Creatinine Clr Calc Pharmacy 125.7 ml/min; Magnesium 1.9 mg/dl (1.7-2.4); Potassium 4.7 mmol/L (3.5-5.1)
[2024-01-31] MEDS: chlordiazePOXIDE HCl 25 MG CAP PO SCH (09:48)
--- NOTE | 2024-01-31 10:36 | Discharge Summary ---
Discharge Summary Date of Service January 31, 2024 Principal Dx & Hospital Course #1 = Principal Diagnosis (1) Alcohol intoxication: (2) Electrolyte abnormality: (3) Alcohol withdrawal: (4) Alcoholic cirrhosis: (5) Alcohol dependence: Plan Mr. Guillory is a 48 year old male with past medical history significant for pancreatic cyst, secondary esophageal varices without bleeding, alcoholic cirrhosis of liver with ascites, chronic cholecystitis, macrocytic anemia, coagulopathy, history of alcohol withdrawal seizures who presents with alcoholism and request for detox. Patient with chronic low electrolytes replaced with po and IV while admitted. Patient started on librium taper as well as a trial of naltrexone. Patient agreeable to inpatient rehab for detox and discharged to inpatient unit. #Alcohol withdrawal: patient continued on librium, with plans for further detox management at rehab facility #Hypokalemia, hypomagnesemia secondary to alcoholism and home diuretic Rx replaced required IV and PO replacements continue K and Mg supplement at home ff up closely as outpatient #alcoholic cirrhosis no overt decompensation #Chronic pancytopenia secondary to liver disease, hemoglobin better than baseline likely secondary to hemoconcentration stable on discharge d/c to inpatient detox Notes For Next Care Provider Medication Changes From Visit resume home meds trialed naltrexone Admission HPI Per Admitting Provider History obtained from patient and records. Medical history significant for alcoholic cirrhosis, history of esophageal varices, history of alcohol withdrawal seizures, chronic pancytopenia (baseline hemoglobin of 11), ongoing alcohol abuse. Monthly admissions since October 2023 for alcohol withdrawal. Recent confinement 2 weeks ago. Patient started drinking again shortly after discharge from the hospital. Denies depression or suicidality. Patient family convinced him to come to hospital today to attempt detox again. Patient has not seen PCP since discharge from the hospital. Denies headache, chest pain, SOB, abdominal pain. Denies recent falls but cannot explain dried blood on his hands. Medical History as above Surgical History : Tonsillectomy Family History : DM, asthma, prostate cancer, stroke Personal/Social history : Non-smoker, alcohol abuse, currently unemployed Admission Exam Per Admitting Provider General- Not in distress Head- atraumatic Eyes- PERRL. ENT- oropharynx clear Neck- supple, no JVD. Lungs- clear to auscultation no wheezing or crackles. Heart- regular rhythm; no murmur, no gallop. Abdomen- normal bowel sounds, soft, nontender, no distension Neuro- alert, oriented PERRL, no facial palsy; no dysarthria; moves extremities Discharge Exam Constitutional WD/WN, vitals as above Respiratory normal respiratory effort, lungs clear to auscultation Cardiovascular RRR, no murmur, no edema Gastrointestinal (Abdomen) normal bowel sounds, soft, nontender, no hepatosplenomegaly Updated Medication List Medication Instructions Recorded Confirmed Type buspirone 5 mg tablet 5 mg PO BID 06/10/18 01/29/24 History nadolol 20 mg tablet 20 mg PO QAM 06/10/18 01/29/24 History ursodiol 300 mg capsule 300 mg PO BID 06/10/18 01/29/24 History furosemide 20 mg tablet 20 mg PO QAM 11/14/22 01/29/24 History spironolactone 25 mg tablet 25 mg PO QAM 11/14/22 01/29/24 History citalopram 10 mg tablet 10 mg PO QAM 04/09/23 01/29/24 History folic acid 1 mg tablet 1 mg PO QAM #30 tabs 06/06/23 01/29/24 Rx cyanocobalamin (vitamin B-12) 250 250 mcg PO QAM 07/03/23 01/29/24 History mcg tablet (Vitamin B-12) gabapentin 300 mg capsule 300 mg PO TID 07/03/23 01/29/24 History pantoprazole 40 mg tablet,delayed 40 mg PO QAM 08/01/23 01/29/24 History release potassium chloride 20 mEq 20 meq PO QAM #30 tabs 08/27/23 01/29/24 Rx tablet,extended release(part/cryst) calcium 500 mg (as 1 tab PO BID 11/04/23 01/29/24 History carbonate)-vitamin D3 5 mcg (200 unit) tablet (Oyster Shell Calcium-Vitamin D3) ergocalciferol (vitamin D2) 1,250 1,250 mcg PO WK 11/04/23 01/29/24 History mcg (50,000 unit) capsule thiamine mononitrate (vit B1) 100 100 mg PO QAM 01/14/24 01/29/24 History mg tablet (Vitamin B-1 (mononitrate)) magnesium chloride 64 mg 64 mg PO AMHS 01/29/24 01/29/24 History (magnesium chloride) tablet,delayed release (Mag 64) zolpidem 5 mg tablet 5 mg PO HS PRN Sleep 01/29/24 01/29/24 History chlordiazepoxide HCl 10 mg capsule 10 mg PO Q12H #0 caps 01/31/24 Rx chlordiazepoxide HCl 10 mg capsule 10 mg PO Q8H PRN #0 caps 01/31/24 Rx chlordiazepoxide HCl 25 mg capsule 50 mg (2 x 25 mg) PO Q8H #0 caps 01/31/24 Rx naltrexone 50 mg tablet 50 mg PO DAILY #0 tabs 01/31/24 Rx Hospital Stay Data Consultations 01/29/24 20:28 ED Decision to Admit Stat Diagnostic Imagining Performed 01/29/24 18:56 CT head/brain wo con Stat Pending Results Patient Have Any Pending Studies at Discharge: No Discharge Instructions Given to Patient (Per Discharging Provider) You were admitted for alcohol withdrawal. You were started on a librium taper and inpatient rehab was discussed. You were accepted and discharged to an alcohol rehab facility. You were started on a Librium taper and Naltrexone while admitted. The rehab will help manage additional agents to aid in your recovery. It is strongly recommended you continued your magnesium, potassium, and calcium supplementation, as well as folate and thiamine. Please continue all previously prescribed medications. Total Time Total Time Spent Total Time Spent (In Minutes): 45
[2024-02-01] MEDS ORDERED: chlordiazePOXIDE HCl 25 MG CAP PO SCH (08:45)
[2024-02-02] MEDS ORDERED: chlordiazePOXIDE HCl 5 MG CAP PO SCH ×2 (02:30→04:00)
== END 2024-01-31 10:57 | disposition alcohol treatment (31) | DRG 897 ==
LOC: ED 18:29 → SUATTDRO 21:09 → 2N 21:09

== ENCOUNTER 2024-02-29 20:52 | Inpatient (IN) ==
--- OUTSIDE RECORDS SUMMARY | 2024-02-29 20:56 | External Medical Summary | Summary of Care ---
Author Name Unknown Organization [facility] Address [address] [place] [address] Phone [phone] Care Team Providers Care Hadoop Software Engineer Name Role Phone Michelle Borrego DO Primary Care Provider [phone] Reason for Visit * Reason Onset Date Comments Hospital Follow-Up Pt asking abo ut injections for alcohol cravings (vivitrol?); requesting refill of ambien. Medication Administration 02/24/2024 Flu an d/or Pneumo Inj Encounter Details Date Type Department Care Team (Late st Contact Info) Description 02/24/2024 11:10 AM EST Office Visit Family Medicine [address] [phone] [address] [place] [id number] Abscess*; Need for prophylactic vaccination and inoculation against influenza; Alcoholic cirrhosis of liver with ascites (HCC); Alcohol use disorder; Closed fracture of multiple ribs with routine healing, unspecified laterality, subsequent encounter Allergies Active Allergy Reactions Criticality Noted Date Comments Aspirin Other (Please comment) 02/12/2016 Reports having a bloody nose. documented as of this encounter (statuses as of 02/24/2024) Medications Ursodiol 300 MG Oral Capsule (Actigall) TAKE ONE CAPSULE BY MOUTH TWICE DAILY 180 Capsule 12 12/19/19 23 Active Spironolactone 25 MG Oral Tablet (Aldactone) Take 1 Tablet by mouth in the morning. 90 Tablet 3 01/15/20 23 Active Folic Acid 1 MG Oral Tablet Take 1 Tablet by mouth in the morning. 90 Tablet 3 04/07/19 24 Active busPIRone HCl 5 MG Oral Tablet (Buspar) Take 1 Tablet by mouth in the morning and 1 Tablet before bedtime. 180 Tablet 3 04/07/19 24 Active Nadolol 20 MG Oral Tablet (Corgard) Take 1 Tablet by mouth in the morning. 90 Tablet 3 04/07/19 24 Active Gabapentin 300 MG Oral Capsule (Neurontin) Take 1 Capsule by mouth in the morning and 1 Capsule at noon and 1 Capsule before bedtime. 90 Capsule 5 06/24/19 24 Active Pantoprazole Sodium 40 MG Oral Tablet Delayed Release (Protonix) Take 1 Tablet by mouth in the morning. 90 Tablet 1 07/03/19 24 Active Furosemide 20 MG Oral Tablet (Lasix) Take 1 Tablet by mouth in the morning. In the morning.. Active Zolpidem Tartrate 5 MG Oral Tablet (Ambien)Indicati ons:History of alcohol abuse,Persistent insomnia Take 1 Tablet by mouth at bedtime as needed for Sleep. 30 Tablet 08/28/19 24 Active Potassium Chloride Yamini ER 20 MEQ Oral Tablet Extended Release Take 1 Tablet by mouth in the morning. In the morning.. 08/27/19 24 Active Mag64 64 MG Oral Tablet Delayed Release Take 1 Tablet by mouth in the morning and 1 Tablet before bedtime. 08/27/19 24 Active Vitamin D (Ergocalciferol) 1.25 MG (49390 UT) Oral Capsule (Drisdol) TAKE ONE CAPSULE BY MOUTH EVERY FRIDAY MORNING AT 9AM 08/27/19 24 Active Cephalexin 500 MG Oral Capsule Take 1 Capsule by mouth in the morning and 1 Capsule at noon and 1 Capsule in the evening and 1 Capsule before bedtime. Do all this for 5 days. 20 Capsule 02/24/20 24 Active Vancomycin HCl 125 MG Oral Capsule (Vancocin) Take 1 Capsule by mouth every 6 hours for 12 days. For 7 days 48 Capsule 02/24/20 24 Active Thiamine HCl 100 MG Oral Tablet (vitamin B-1) Take 1 Tablet by mouth in the morning. In the morning.. 04/14/19 24 Discontinued Vitamin B-12 250 MCG Oral Tablet (Cyanocobalamin) Take 1 Tablet by mouth in the morning. 30 Tablet 5 06/24/19 024 Discontinued Loperamide HCl 2 MG Oral Capsule (Imodium) TAKE ONE CAPSULE BY MOUTH EVERY 4 HOURS NEEDED FOR LOOSE STOOL 08/27/19 Discontinued Citalopram Hydrobromide 10 MG Oral Tablet (CeleXA) Take 1 Tablet by mouth in the morning. In the morning.. Discontinued Oyster Shell Calcium w/D 500-5 MG-MCG Oral Tablet Take 1 Tablet by mouth in the morning and 1 Tablet before bedtime. 08/27/19 Discontinued Vancomycin HCl 125 MG Oral Capsule (Vancocin) Take 1 Capsule by mouth every 6 hours. for 7 days. 12/25/19 024 Discontinued documented as of this encounter (statuses as of 02/24/2024) Active Problems Problem Noted Date Diagnosed Date Alcohol withdrawal syndrome with complication Alcohol use disorder 06/24/2023 Biliary colic 07/11/2019 Persistent insomnia 02/12/2017 Chronic cholecystitis 11/10/2016 Pre-transplant evaluation for chronic liver dise ase 09/30/2016 Controlled substance agreement signed 08/22/2016 Pancreatic cyst 08/18/2016 Overview (08/18/2016): 5mm, Needs repeat MRCP in 07/2017 Secondary esophageal varices without bleeding Alcoholic cirrhosis of liver with ascites 2015 Macrocytic anemia 01/18/2016 Coagulopathy 01/18/2016 documented as of this encounter (statuses as of 02/24/2024) Resolved Problems Problem Noted Date Diagnosed Date [...] as of this encounter (statuses as of 02/24/2024) Immunizations Name Administration Dates Next Due COVID-19 mRNA, LNP-s, No Pre serve, 2-Dose Series (Moderna) 07/26/2020,06/13/2020 COVID-19, MRNA-LNP, 24-25, P R, 30MCG/0.3ML, IM, 12YRS AND ABOVE ([employer]) 01/15/2023 COVID-19, MRNA-LNP, PF, 30 M CG/0.3 mL, 12 YRS AND ABOVE, IM ([employer]) 01/15/2023 COVID-19, mRNA, LNP-s, PF, B ooster, 100mcg/0.5mg (Moderna) 03/07/2021 Covid-19, Mrna, Lnp-s, Pf, B ivalent, 30 Mcg, IM, 12 yrs and above ([employer]) 03/08/2022 HEP A - Hepatitis A (Adult > 18 yrs) 02/12/2017, 07/12/2016 Hepatitis B, 20+ yrs 02/12/2017,08/16/2016,07/12 Pneumococcal Polysaccharide PPV23 (Pneumovax) 05/26/2017 Seasonal Influenza, PF, 6 M & above, IM , (FluLaval or Fluzone) 12/17/2022,02/08/2022,11/29/2020,12/12,06/01/2018,02/12/2017 Seasonal Influenza, Trivalen t, (IIV3), PF, (Fluzone) 02/24/2024 TDAP (age 10 and older)(Boostrix) 11/12/2016 documented as of this encounter Social History Tobacco Use Types Packs/Day Years Used Date Smoking Tobacco: Never Smokeless Tobacco: Current Snuff, Chew Comments:1 can every 2 weeks Alcohol Use Standard Drinks/Week Comments Yes 0 (1 standard drink = 0.6 oz pur e alcohol) half gallon tequila PHQ-2 Answer Date Recorded PHQ-2 Score 0 [...] Assigned at Male 08/11/2023 10:23 PM EDT Legal Sex Male 5:26 AM EST Gender Identity Male 08/11/2023 10:23 PM EDT Sexual Orientation Straight 08/11/2023 10 :23 PM EDT Occupation Industry Job Start Date Job End Date Unemployed Not on file Not on file Not on file documented as of this encounter Last Filed Vital Signs Vital Sign Reading Time Taken Comments Blood Pressure 128/62 02/24/2024 11:07 AM EST Pulse 78 02/24/2024 11:07 AM EST Temperature - - Respiratory Rate - - Oxygen Saturation 97% 02/24/2024 11:07 AM EST Inhaled Oxygen Concentration - - Weight 73 kg (161 lb) 02/24/2024 11:07 AM EST Height - - Body Mass Index 25.22 08/12/2023 8:27 AM EDT documented in this encounter Functional Status * Are you deaf or do you have serious difficulty hearing? Answer Date of Assessment Author No 07/11/2019 10:01 PM EDT Yumiko Mitchell RN * Are you blind or do you have serious difficulty seeing, even when wearing glasses? Answer Date of Assessment Author No 07/11/2019 10:01 PM EDT Yumiko Mitchell RN * Do you have serious difficulty walking or climbing stairs? (5 years old or older) Answer Date of Assessment Author No 07/11/2019 10:01 PM JOSÉ MANUELT Yumiko Mitchell RN * Do you have difficulty dressing or bathing? (5 years old or older) Answer Date of Assessment Author No 07/11/2019 10:01 PM EDT Yumiko Mitchell RN * Because of a physical, mental, or emotional condition, do you have difficulty doing errands alone such as visiting a doctors office or shopping? (15 years old or older) Answer Date of Assessment Author No 07/11/2019 10:01 PM JOSÉ MANUELT Yumiko Mitchell RN documented as of this encounter Mental Status * Because of a physical, mental, or emotional condition, do you have serious difficulty concentrating, remembering, or making decisions? (5 years old or older) Answer Entry Date Author No 07/11/2019 10:01 PM EDT Yumiko Mitchell RN documented in this encounter Patient Instructions * Patient Instructions* Micehlle Borrego DO - 02/24/2024 11:49 AM EST You can take acetaminophen (tylenol) for your rib pain - up to 2000 mg per day (four 500 mg pills or six 325 mg pills). documented in this encounter Progress Notes * Michelle Borrego, DO - 02/24/2024 11:22 AM EST Subjective: Darrel Guillory is a 48 year old male. Chief Complaint Patient presents with Hospital Follow-Up Pt asking about injections for alcohol cravings (vivitrol?); requesting refill of ambien. Medication Administration Flu and/or Pneumo Inj HPI: Darrel Guillory presents today for ER follow up. He was seen recently for an abscess on his back. Underwent I&D. They did not put him on antibiotics. He denies pain from the abscess/cyst. No drainage since yesterday. He also fell at the beginning of the month and broke several ribs. Has ongoing problems with pain in that area. He got out of detox at rehab about 3 weeks ago. He reports drinking one time since he got out. Interested in vivitrol. He is going to try to call a drug/alcohol program to see if they can help arrange this with him. He is currently self pay but is working to get Medicaid. He already submitted the paperwork but hasnot heard back yet. Denies abdominal bloating, bleeding problems. PMH: Patient Active Problem List Diagnosis Macrocytic anemia Coagulopathy (HCC) Alcoholic cirrhosis of liver with ascites (HCC) Secondary esophageal varices without bleeding (HCC) Pancreatic cyst Controlled substance agreement signed Pre-transplant evaluation for chronic liver disease Chronic cholecystitis Biliary colic Persistent insomnia Alcohol withdrawal syndrome with complication (HCC) Alcohol use disorder Current Outpatient Medications Medication Sig Dispense Refill [...] mouth in the morning. 90 Tablet 3 Gabapentin 300 MG Oral Capsule (Neurontin) Take 1 Capsule by mouth in the morning and 1 Capsule at noon and 1 Capsule before bedtime. 90 Capsule 5 Pantoprazole Sodium 40 MG Oral Tablet Delayed Release (Protonix) Take 1 Tablet by mouth in the morning. 90 Tablet 1 Furosemide 20 MG Oral Tablet (Lasix) Take 1 Tablet by mouth in the morning. In the morning.. Potassium Chloride Yamini ER 20 MEQ Oral Tablet Extended Release Take 1 Tablet by mouth in the morning. In the morning.. Mag64 64 MG Oral Tablet Delayed Release Take 1 Tablet by mouth in the morning and 1 Tablet before bedtime. Vitamin D (Ergocalciferol) 1.25 MG (10007 UT) Oral Capsule (Drisdol) TAKE ONE CAPSULE BY MOUTH EVERY FRIDAY MORNING AT 9AM Thiamine HCl 100 MG Oral Tablet (vitamin B-1) Take 1 Tablet by mouth in the morning. In the morning.. (Patient not taking: Reported on 02/24/2024) Vitamin B-12 250 MCG Oral Tablet (Cyanocobalamin) Take 1 Tablet by mouth in the morning. (Patient not taking: Reported on 02/24/2024) 30 Tablet 5 Zolpidem Tartrate 5 MG Oral Tablet (Ambien) Take 1 Tablet by mouth at bedtime as needed for Sleep. 30 Tablet 0 Loperamide HCl 2 MG Oral Capsule (Imodium) TAKE ONE CAPSULE BY MOUTH EVERY 4 HOURS NEEDED FOR LOOSE STOOL (Patient not taking: Reported on 02/24/2024) Citalopram Hydrobromide 10 MG Oral Tablet (CeleXA) Take 1 Tablet by mouth in the morning. In the morning.. (Patient not taking: Reported on 02/24/2024) Oyster Shell Calcium w/D 500-5 MG-MCG Oral Tablet Take 1 Tablet by mouth in the morning and 1 Tablet before bedtime. (Patient not taking: Reported on 02/24/2024) Vancomycin HCl 125 MG Oral Capsule (Vancocin) Take 1 Capsule by mouth every 6 hours. for 7 days. (Patient not taking: Reported on 02/24/2024) No current facility-administered medications for this visit. Review of patient's allergies indicates: Allergen Reactions Aspirin Other (Please comment) Reports having a bloody nose. Objective: BP 128/62 | Pulse 78 | Wt 161 lb (73 kg) | SpO2 97% | BMI 25.22 kg/m | BSA 1.86 m General: alert, healthy, no distress, well nourished, and well developed Neck: supple, no adenopathy, thyroid normal size, non-tender, without nodularity Heart: regular rate & rhythm and no murmur Lungs: chest symmetric with normal AP diameter, no chest deformities noted, normal respiratory rateand rhythm, lungs clear to auscultation Abdomen: abdomen soft and non-tender Extremities: no joint deformities, effusion, or inflammation, no edema Neuro Exam: alert & oriented x 3 with fluent speech, no focal motor/sensory deficits, gait normal, reflexes normal and symmetric, mild asterixis noted Skin: skin color, texture, turgor are normal, no rashes or significant lesions ASSESSMENT/PLAN: Abscess (Primary) - s/p I&D. No further drainage but remains red. Will treat with keflex x 5 days. Oral vancomycin prescribed to be utilized if he develops diarrhea after using the antibiotic as he has a history of C. Diff. Need for prophylactic vaccination and inoculation against influenza - INFLUENZA VAC, TRIVALENT, (IIV3), PF, 0.5 ML (FLUZONE) Alcoholic cirrhosis of liver with ascites (HCC) - ?asterixis on exam today. Otherwise no sign of decompensation. Alcohol use disorder - pt met with Jacklyn Dong today. He is going to follow up with his drug/alcohol intake to see if he can get on Vivitrol. Closed fracture of multiple ribs with routine healing, unspecified laterality, subsequent encounter- advised that he may use up to 2000 mg of tylenol per day. Written instructions given. Other orders - Cephalexin 500 MG Oral Capsule; Take 1 Capsule by mouth in the morning and 1 Capsule at noon and 1 Capsule in the evening and 1 Capsule before bedtime. Do all this for 5 days. - Vancomycin HCl 125 MG Oral Capsule (Vancocin); Take 1 Capsule by mouth every 6 hours for 12 days.For 7 days Follow Up: Return in about 6 months (around 08/23/2024). Michelle Borrego DO documented in this encounter Plan of Treatment Scheduled Procedures Name Priority Associated Diagnoses Date/Ti [...] 2023 01/15/2023, 01/15/2023, 03/08/2022, Additional history exists Cologuard 08/23/2025 08/23/2022, 07/30, 08/17/2022 Colorectal Cancer Screening 08/23/2025 Diabetes Screening 08/11/2026 08/12/2023, 0 05/14/2023, 02/11/2023, Additional history exists DTap/Tdap Vaccines (2 - Td or Tdap) 11/12/2026 11/12/2016 Lipid Panel 02/12/2028 02/11/2023, 12/0 11/2021, 12/02/2018, Additional history exists Hepatitis B Vaccine Completed 02/12/2017, 08/16/2016, 07/12/2016 Influenza Vaccine (FLU shot) Completed , 12/17/2022, 12/17/2022, Additional history exists HPV (Gardasil) Vaccine Aged Out No lo nger eligible based on patient's age to complete this topic MENINGOCOCCAL (MENACTRA/MENVEO) Aged Out No longer eligible based on patient's age to complete this topic documented as of this encounter Medical Devices Not on filedocumented as of this encounter Visit Diagnoses Diagnosis Abscess- Primary Cellulitis and abscess of unspecified site Need for prophylactic vaccination and inoculation against influenza Alcoholic cirrhosis of liver with ascites (HCC) Alcoholic cirrhosis of liver Alcohol use disorder Closed fracture of multiple ribs with routine healing, unspecified laterality, subsequent encounter documented in this encounter Advance Directives * [...] Power of Attor ricky? No Care Teams Hadoop Software Engineer Relationship Specialty Start Date End Date Michelle Borrego DO [address] [place] [address] [place] [id number] PCP - General Internal Medicine 06/07/16 documented as of this encounter"
[2024-02-29] MEDS: ONDANSETRON INJ 2 MG/ML 2 ML VIAL IV STA (21:10)
[2024-02-29 21:39] LABS: Basophils # (auto) 0.09 K/uL (0.00-0.20); Basophils % (auto) 1.5 %; Eosinophils # (auto) 0.28 K/uL (0.00-0.50); Eosinophils % (auto) 4.7 %; Hematocrit (blood only) 44.4 % (42.0-52.0); Immature Granulocytes # (auto) 0.02 K/uL (0.01-0.20); Immature Granulocytes % (auto) 0.3 %; Lymphocytes # (auto) 2.37 K/uL (1.20-3.40); Lymphocytes % (auto) 40.1 %; Mean Corpuscular Hemoglobin 31.3 pg (25.0-34.0); Mean Corpuscular Hgb Conc 33.8 g/dL (32.0-36.0); Mean Corpuscular Volume 92.7 fL (80.0-100.0); Mean Platelet Volume 10.4 fL (9.4-12.4); Monocytes # (auto) 0.74 K/uL (0.11-0.59); Monocytes % (auto) 12.5 %; Neutrophils # (auto) 2.41 K/uL (1.40-6.50); Neutrophils % (auto) 40.9 %; Platelet Count 172 K/uL (130-400); RDW Coefficient of Variation 13.7 % (11.5-14.5); RDW Standard Deviation 46.7 fL (36.4-46.3); Red Blood Count 4.79 M/uL (4.70-6.10); White Blood Count 5.91 K/ul (4.8-10.8)
[2024-02-29 21:43] LABS: Anion Gap 14 (3-11); BUN Creatinine Ratio 7.2 (10-20); Blood Urea Nitrogen 6 mg/dl (6-23); Calcium 8.7 mg/dl (8.6-10.3); Carbon Dioxide 25 mmol/L (21-32); Chloride 102 mmol/L (98-107); Glucose 266 mg/dl (70-99(Fasting)); Lipase 103 U/L (11-82); Magnesium 1.4 mg/dl (1.7-2.4); Potassium 3.4 mmol/L (3.5-5.1); Sodium 141 mmol/L (136-145)
--- NOTE | 2024-02-29 22:02 | History & Physical Report ---
Date of Service February 29, 2024 Assessment & Plan (1) Alcohol withdrawal: Plan: Alcohol withdrawal Abscess, left back status post drainage Some improvement following drainage. Unable to comply with outpatient PCP antibiotic Rx Patient not septic. Hypokalemia, hypomagnesemia secondary to alcoholism and home diuretic Rx hx alcoholic cirrhosis, no overt decompensation Alcoholic hepatitis, good prognosis on computed Maddrey DF score of 1.6 points. Chronic pancytopenia secondary to liver disease, hemoglobin currently within normal limits likely secondary to hemoconcentration Admit to medical telemetry LARISA S, DT precautions Librium tapering dose adjusted for liver disease Replace electrolytes IVF, Hold home diuretic for now until patient euvolemic Doxycycline for residual abscess left upper back General Surgery consult if without improvement. DVT prophylaxis. SCDs Re: Thrombocytopenia Full code Text document was generated using [employer] voice recognition software. It may contain grammatical or spelling errors. Kindly contact undersigned for clarification of any documentation item in question. History of Present Illness Chief Complaint: Want to quit, shaking Primary Care Provider: Michelle Borrego DO History obtained from patient and records. Medical history significant for alcoholic cirrhosis, history of esophageal varices, history of alcohol withdrawal seizures, chronic pancytopenia (baseline hemoglobin of 11), ongoing alcohol abuse. Monthly admissions since October 2023 for alcohol withdrawal. Recent confinement last month. Patient discharged to alcohol rehab facility where he stayed for a week. Patient started drinking again a week after discharge from rehab facility. 02/13 [facility] ER visit for traumatic left rib fractures and ankle injury secondary to fall. Patient discharged home. 02/20 [facility] ER visit for abscess on the left upper back. Subsequent drainage at the ER. Patient sent home without antibiotics. 02/23 Patient seen at PCPs office on follow-up visit. Left back abscess still noted to be red as per provider note. Patient prescribed Keflex course. Oral vancomycin prescription as needed given in case patient develops diarrhea given history C. difficile as per documentation. Patient has not complied with outpatient prescription. Denies fever or chills. Patient trying to cut down on drinking today. He called outpatient rehab facility seeking admission while he was told to come to ER first to get evaluated. Admits to increased shaking at home. Denies headache, chest pain, SOB, abdominal pain symptoms. Medical History as above Surgical History : Tonsillectomy Family History : DM, asthma, prostate cancer, stroke Personal/Social history : Non-smoker, alcohol abuse, currently unemployed Allergies Allergy/AdvReac Type Severity Reaction Status Date / Time aspirin AdvReac Intermediate PT STATES Verified 02/29/24 22:12 "HAPPENED A CHILD--BLOODY NOSE" Home Medications Medication Instructions Recorded Confirmed Type buspirone 5 mg tablet 5 mg PO BID 06/10/18 02/29/24 History nadolol 20 mg tablet 20 mg PO QAM 06/10/18 02/29/24 History ursodiol 300 mg capsule 300 mg PO BID 06/10/18 02/29/24 History furosemide 20 mg tablet 20 mg PO QAM 11/14/22 02/29/24 History spironolactone 25 mg tablet 25 mg PO QAM 11/14/22 02/29/24 History folic acid 1 mg tablet 1 mg PO QAM #30 tabs 06/06/23 02/29/24 Rx gabapentin 300 mg capsule 300 mg PO TID 07/03/23 02/29/24 History pantoprazole 40 mg tablet,delayed 40 mg PO QAM 08/01/23 02/29/24 History release potassium chloride 20 mEq 20 meq PO QAM #30 tabs 08/27/23 02/29/24 Rx tablet,extended release(part/cryst) thiamine mononitrate (vit B1) 100 100 mg PO QAM 01/14/24 02/29/24 History mg tablet (Vitamin B-1 (mononitrate)) magnesium chloride 64 mg 64 mg PO AMHS 01/29/24 02/29/24 History (magnesium chloride) tablet,delayed release (Mag 64) zolpidem 5 mg tablet 5 mg PO HS PRN Sleep 01/29/24 02/29/24 History cholecalciferol (vitamin D3) 125 125 mcg PO QAM 02/29/24 02/29/24 History mcg (5,000 unit) tablet (Vitamin D3) magnesium chloride 64 mg 64 mg PO AMHS 02/29/24 02/29/24 History (magnesium chloride) tablet,delayed release (Mag 64) vancomycin 125 mg capsule 125 mg PO Q6 02/29/24 02/29/24 History Past Med/Surg History Problem List (Updated 02/29/24 @ 23:55 by Srinivasan Mireles MD) Alcohol withdrawal Abscess (Acute) Alcohol dependence (Acute) Electrolyte abnormality (Acute) Hypokalemia (Acute) Alcohol abuse (Acute) Prolonged QT interval (Acute) Alcoholic cirrhosis Acute hypokalemia (Acute) Nausea & vomiting (Acute) Thrombocytopenia (Acute) Transaminitis (Acute) Hypomagnesemia (Acute) Alcoholic hepatitis (Acute) Esophageal varices Transaminitis (Acute) Medical History Abrasion of finger Fall Alcohol intoxication Alcohol withdrawal Alcohol withdrawal Cholecystitis Choledocholithiasis Depression Anxiety UGIB (upper gastrointestinal bleed) Thrombocytopenia Ascites Alcohol abuse Alcoholic cirrhosis of liver Esophageal varices Portal hypertension History of macrocytic anemia History of alcohol abuse Surgical History History of esophagogastroduodenoscopy (EGD) Including procedures for esophageal varices banding History of tonsillectomy Family History Mother Diabetes Father Prostate cancer Other No family history of adverse response to anesthesia Social History Smoking Status: Never smoker Tobacco Type: Smokeless Tobacco (Dip or Chew) Second Hand Exposure: No; Do You Dip or Chew Tobacco: Yes; Hx Alcohol Use: Yes Alcohol type: hard liquor Hx Substance Use: No Preferred Language: Welsh Communication Ability: Effective Permastone Installer Required: No Beliefs That Will Affect Care: None Current Living Situation: Alone Current Living Situation Comment: lives with parents Feels Safe at Home: Yes Assistive Devices: None Review of Systems Review of Systems: As per HPI, all other systems reviewed and negative Physical Exam Physical Exam: GENERAL: tremulous, no respiratory distress SKIN: Pallor, warm HEENT: Pale palpebral conjunctivae, no ptosis, dry buccal mucosa NECK : Supple, no tenderness CHEST : CTA, no tenderness BACK: Erythematous nodule, left upper back close to the shoulder with minimal tenderness, no fluctuance HEART : Tachycardic, no obvious murmurs ABDOMEN: Some distention, no tenderness EXTREMITIES : no LE swelling/tenderness, no other conspicuous deformities noted NEUROLOGIC : Coherent, no facial asymmetry, tremulous, no other gross focality Results & Data Results & Data Vital Signs (Past 12 Hours) Vital Signs Temp Pulse Pulse Resp BP BP Pulse Ox 02/29/24 21:46 106 H 18 137/97 91 12/01/24 21:14 108 H 02/29/24 20:53 36.0 C L 123 H 16 146/89 H 92 O2 Del Method 02/29/24 21:46 Room Air 02/29/24 21:14 02/29/24 20:53 Room Air Laboratory Results Laboratory Results WBC 5.91 K/ul (4.8-10.8) 02/29/24 21:08 RBC 4.79 M/uL (4.70-6.10) 02/29/24 21:08 Hgb 15.0 g/dl (14.0-18.0) 02/29/24 21:08 Hct 44.4 % (42.0-52.0) 02/29/24 21:08 MCV 92.7 fL (80.0-100.0) 02/29/24 21:08 MCH 31.3 pg (25.0-34.0) 02/29/24 21:08 MCHC 33.8 g/dL (32.0-36.0) 02/29/24 21:08 RDW Std Deviation 46.7 fL (36.4-46.3) H 02/29/24 21:08 RDW Coeff of Hang 13.7 % (11.5-14.5) 02/29/24 21:08 Plt Count 172 K/uL (130-400) 02/29/24 21:08 MPV 10.4 fL (9.4-12.4) 02/29/24 21:08 Immature Gran % (Auto) 0.3 % 02/29/24 21:08 Neut % (Auto) 40.9 % 02/29/24 21:08 Lymph % (Auto) 40.1 % 02/29/24 21:08 Anson % (Auto) 12.5 % 02/29/24 21:08 Eos % (Auto) 4.7 % 02/29/24 21:08 Baso % (Auto) 1.5 % 02/29/24 21:08 Neut # (Auto) 2.41 K/uL (1.40-6.50) 02/29/24 21:08 Lymph # (Auto) 2.37 K/uL (1.20-3.40) 02/29/24 21:08 Anson # (Auto) 0.74 K/uL (0.11-0.59) H 02/29/24 21:08 Eos # (Auto) 0.28 K/uL (0.00-0.50) 02/29/24 21:08 Baso # (Auto) 0.09 K/uL (0.00-0.20) 02/29/24 21:08 Immature Gran # (Auto) 0.02 K/uL (0.01-0.20) 02/29/24 21:08 Sodium 141 mmol/L (136-145) 02/29/24 21:08 Potassium 3.4 mmol/L (3.5-5.1) L 02/29/24 21:08 Chloride 102 mmol/L (98-107) 02/29/24 21:08 Carbon Dioxide 25 mmol/L (21-32) 02/29/24 21:08 Anion Gap 14 (3-11) H 02/29/24 21:08 BUN 6 mg/dl (6-23) 02/29/24 21:08 Creatinine 0.83 mg/dl (0.6-1.4) 02/29/24 21:08 Est Cr Clr Drug Dosing 103.0 ml/min 02/29/24 21:08 eGFR 106.62 02/29/24 21:08 BUN/Creatinine Ratio 7.2 (10-20) L 02/29/24 21:08 Glucose 266 mg/dl (70-99(Fasting)) H 02/29/24 21:08 Calcium 8.7 mg/dl (8.6-10.3) 02/29/24 21:08 Magnesium 1.4 mg/dl (1.7-2.4) L 02/29/24 21:08 Lipase 103 U/L (11-82) H 02/29/24 21:08 Ethyl Alcohol mg/dL 356.4 mg/dl (<10.0) H 02/29/24 21:08
[2024-02-29 22:18] LABS: INR 1.1 (0.9-1.1); Prothrombin Time 12.2 Seconds (9.0-12.0)
--- NOTE | 2024-02-29 22:19 | Emergency Department Note ---
History of Present Illness General Chief complaint: Alcohol Withdrawal Stated complaint: WITHDRAWAL Time Seen by Provider: 02/29/24 21:01 History of Present Illness Provider complaint: Alcohol withdrawal 48-year-old alcoholic male presents emergency department for alcohol withdrawal. Patient is a history of alcohol withdrawal alcohol withdrawal seizure. Patient states he recently got out of rehab and started drinking again and wants to go back to rehab. Denies any falls or traumas. Home Medications Medication Instructions Recorded Confirmed Type buspirone 5 mg tablet 5 mg PO BID 06/10/18 02/29/24 History nadolol 20 mg tablet 20 mg PO QAM 06/10/18 02/29/24 History ursodiol 300 mg capsule 300 mg PO BID 06/10/18 02/29/24 History furosemide 20 mg tablet 20 mg PO QAM 11/14/22 02/29/24 History spironolactone 25 mg tablet 25 mg PO QAM 11/14/22 02/29/24 History folic acid 1 mg tablet 1 mg PO QAM #30 tabs 06/06/23 02/29/24 Rx gabapentin 300 mg capsule 300 mg PO TID 07/03/23 02/29/24 History pantoprazole 40 mg tablet,delayed 40 mg PO QAM 08/01/23 02/29/24 History release potassium chloride 20 mEq 20 meq PO QAM #30 tabs 08/27/23 02/29/24 Rx tablet,extended release(part/cryst) thiamine mononitrate (vit B1) 100 100 mg PO QAM 01/14/24 02/29/24 History mg tablet (Vitamin B-1 (mononitrate)) magnesium chloride 64 mg 64 mg PO AMHS 01/29/24 02/29/24 History (magnesium chloride) tablet,delayed release (Mag 64) zolpidem 5 mg tablet 5 mg PO HS PRN Sleep 01/29/24 02/29/24 History cholecalciferol (vitamin D3) 125 125 mcg PO QAM 02/29/24 02/29/24 History mcg (5,000 unit) tablet (Vitamin D3) magnesium chloride 64 mg 64 mg PO AMHS 02/29/24 02/29/24 History (magnesium chloride) tablet,delayed release (Mag 64) vancomycin 125 mg capsule 125 mg PO Q6 02/29/24 02/29/24 History Allergies Allergy/AdvReac Type Severity Reaction Status Date / Time aspirin AdvReac Intermediate PT STATES Verified 02/29/24 22:12 "HAPPENED A CHILD--BLOODY NOSE" Past Med/Surg History Problem List (Updated 02/29/24 @ 22:22 by Padilla Downs MD) Abscess (Acute) Alcohol dependence (Acute) Electrolyte abnormality (Acute) Hypokalemia (Acute) Alcohol abuse (Acute) Prolonged QT interval (Acute) Alcoholic cirrhosis Acute hypokalemia (Acute) Nausea & vomiting (Acute) Thrombocytopenia (Acute) Transaminitis (Acute) Hypomagnesemia (Acute) Alcoholic hepatitis (Acute) Esophageal varices Transaminitis (Acute) Medical History Abrasion of finger Fall Alcohol intoxication Alcohol withdrawal Alcohol withdrawal Cholecystitis Choledocholithiasis Depression Anxiety UGIB (upper gastrointestinal bleed) Thrombocytopenia Ascites Alcohol abuse Alcoholic cirrhosis of liver Esophageal varices Portal hypertension History of macrocytic anemia History of alcohol abuse Surgical History History of esophagogastroduodenoscopy (EGD) Including procedures for esophageal varices banding History of tonsillectomy Family History Mother Diabetes Father Prostate cancer Other No family history of adverse response to anesthesia Social History Smoking Status: Never smoker Tobacco Type: Smokeless Tobacco (Dip or Chew) Second Hand Exposure: No; Do You Dip or Chew Tobacco: Yes; Hx Alcohol Use: Yes Alcohol type: hard liquor Hx Substance Use: No Preferred Language: Cambodian Communication Ability: Effective Radio Despatcher Required: No Beliefs That Will Affect Care: None Current Living Situation: Alone Current Living Situation Comment: lives with parents Feels Safe at Home: Yes Assistive Devices: None Physical Exam Vital Signs Vital Signs - 24 hr 02/29/24 20:53 02/29/24 21:14 02/29/24 21:46 Temperature 36.0 C L Temperature Source Temporal Artery Scan Pulse Rate 123 H 108 H Pulse Rate [Apical] 106 H Respiratory Rate 16 18 Respiratory Effort / Characteristics Non-Labored Non-Labored Spontaneous Respiratory Depth Normal Normal Respiratory Pattern Regular Blood Pressure 146/89 H Blood Pressure [Right Arm] 137/97 Blood Pressure Mean 108 Blood Pressure Mean [Right Arm] 110 Blood Pressure Position [Right Arm] Sitting Pulse Oximetry 92 91 Oxygen Delivery Method Room Air Room Air Sepsis Recent Fever Within 48 Hours No Sepsis New/Unexplained Change in Mental Status No Sepsis Action Taken by Nursing No Action Required GENERAL: Patient is disheveled and smells of alcohol. HENT: Exam performed. - Head: Normocephalic and atraumatic. EYES: Conjunctivae and EOM are normal. Right eye exhibits no discharge. Left eye exhibits no discharge. No scleral icterus. NECK: Normal range of motion. Neck supple. No JVD present. CV: Normal rate, regular rhythm, normal heart sounds and intact distal pulses. There is no peripheral edema. Palpable radial pulses bue. PULM/CHEST: Effort normal and breath sounds normal. No respiratory distress. No stridor. no wheezes. no rales. ABD: The abdomen is soft. There is no tenderness. NEURO: Motor and sensation grossly intact. SKIN: Skin is warm and dry. He is not diaphoretic. PSYCH: normal mood and affect. Behavior is normal. Judgment and thought content normal. Course Course 2100: The patient was evaluated in room B6. A complete history and physical exam was performed Cardiac monitoring: An order was placed for continuous cardiac monitoring. The monitor shows a rate of 100 with sinus rhythm interpreted by me 2220: Vital signs stable. Labs are unremarkable with the exception of magnesium of 1.4 and serum alcohol of 356. Magnesium repletion started in the emergency department patient will be admitted to the [facility] team. Administered Medications Discontinued Medications Ondansetron HCl (Ondansetron Inj 2 Mg/Ml 2 Ml Vial) 4 mg IV NOW STA Stop: 02/29/24 21:02 Last Admin: 02/29/24 21:10 Dose: 4 mg Documented By: MULUGETA Medical Decision Making Medical Records Attestation: I reviewed the patient's medical records. External medical records reviewed. Patient was admitted from January 28 January 31, 2024 for similar episode and was discharged to inpatient detox. Laboratory Data 02/29/24 21:08 02/29/24 21:08 Lab Results 02/29/24 Range/Units 21:08 WBC 5.91 (4.8-10.8) K/ul RBC 4.79 (4.70-6.10) M/uL Hgb 15.0 (14.0-18.0) g/dl Hct 44.4 (42.0-52.0) % MCV 92.7 (80.0-100.0) fL MCH 31.3 (25.0-34.0) pg MCHC 33.8 (32.0-36.0) g/dL RDW Std Deviation 46.7 H (36.4-46.3) fL RDW Coeff of Hang 13.7 (11.5-14.5) % Plt Count 172 (130-400) K/uL MPV 10.4 (9.4-12.4) fL Immature Gran % (Auto) 0.3 % Neut % (Auto) 40.9 % Lymph % (Auto) 40.1 % [place] % (Auto) 12.5 % Eos % (Auto) 4.7 % Baso % (Auto) 1.5 % Neut # (Auto) 2.41 (1.40-6.50) K/uL Lymph # (Auto) 2.37 (1.20-3.40) K/uL [place] # (Auto) 0.74 H (0.11-0.59) K/uL Eos # (Auto) 0.28 (0.00-0.50) K/uL Baso # (Auto) 0.09 (0.00-0.20) K/uL Immature Gran # (Auto) 0.02 (0.01-0.20) K/uL Sodium 141 (136-145) mmol/L Potassium 3.4 L (3.5-5.1) mmol/L Chloride 102 (98-107) mmol/L Carbon Dioxide 25 (21-32) mmol/L Anion Gap 14 H (3-11) BUN 6 (6-23) mg/dl Creatinine 0.83 (0.6-1.4) mg/dl Est Cr Clr Drug Dosing 103.0 ml/min eGFR 106.62 BUN/Creatinine Ratio 7.2 L (10-20) Glucose 266 H (70-99(Fasting)) mg/dl Calcium 8.7 (8.6-10.3) mg/dl Magnesium 1.4 L (1.7-2.4) mg/dl Lipase 103 H (11-82) U/L Ethyl Alcohol mg/dL 356.4 H (<10.0) mg/dl [facility] Narrative 2101: The patient was evaluated in room B6. A complete history and physical exam was performed Cardiac monitoring: An order was placed for continuous cardiac monitoring. The monitor shows a rate of 100 with sinus rhythm interpreted by me 2220: Vital signs stable. Labs are unremarkable with the exception of magnesium of 1.4 and serum alcohol of 356. Magnesium repletion started in the emergency department patient will be admitted to the [facility] team. Impression & Plan Hypomagnesemia, Alcohol abuse Discharge Plan Visit Data Chief Complaint: Alcohol Withdrawal Stated Complaint: WITHDRAWAL ED Provider: Padilla Downs Discharge Problem: Hypomagnesemia, Alcohol abuse Patient Disposition: Admitted As Inpatient Forms Stand Alone Forms: [facility], Suicide Prevention Resources Prescriptions Prescriptions: No Action buspirone 5 mg Tablet 5 mg PO BID nadolol 20 mg Tablet 20 mg PO QAM ursodiol 300 mg Capsule 300 mg PO BID spironolactone 25 mg tablet 25 mg PO QAM furosemide 20 mg tablet 20 mg PO QAM pantoprazole 40 mg tablet,delayed release (DR/EC) 40 mg PO QAM potassium chloride 20 mEq Tablet,Er Particles/Crystals 20 meq PO QAM Qty: 30 0RF thiamine mononitrate (vit B1) [Vitamin B-1 (mononitrate)] 100 mg tablet 100 mg PO QAM magnesium chloride [Mag 64] 64 mg tablet,delayed release (DR/EC) 64 mg PO AMHS zolpidem 5 mg tablet 5 mg PO HS PRN (Reason: Sleep) folic acid 1 mg Tablet 1 mg PO QAM Qty: 30 0RF gabapentin 300 mg capsule 300 mg PO TID vancomycin 125 mg Capsule 125 mg PO Q6 Rx Instructions: take for 12 days starting 02/24/24 and end date 03/07/24 magnesium chloride [Mag 64] 64 mg Tablet,Delayed Release (Dr/Ec) 64 mg PO AMHS cholecalciferol (vitamin D3) [Vitamin D3] 125 mcg (5,000 unit) Tablet 125 mcg PO QAM Referrals Referrals: Michelle Borrego DO [Primary Care Provider] -
[2024-02-29] MEDS ORDERED: ZOLPIDEM TARTRATE 5 MG TAB PO PRN (22:29)
[2024-02-29 22:41] LABS: Alanine Aminotransferase 29 U/L (7-52); Albumin Level 3.9 gm/dl (3.4-5.0); Alkaline Phosphatase 105 U/L (34-104); Aspartate Aminotransferase 59 U/L (13-39); Bilirubin,Total 0.7 mg/dl (0.2-1.0); Total Protein 8.6 gm/dl (6.0-8.3)
[2024-02-29] MEDS: MAGNESIUM SULFATE / D5W 1 GM/100 ML BAG IV SCH ×2 (22:45→23:01)
[2024-02-29] MEDS ORDERED: LORazepam 2 MG/1 ML VIAL IV PRN (22:46)
[2024-02-29] MEDS ORDERED: chlordiazePOXIDE ALCOHOL WITHDRAWL 25MG PO STA (22:46)
[2024-02-29] MEDS ORDERED: Ativan IV Alcohol Withdrawal--Active Protocol IV PRN (22:46)
[2024-02-29] MEDS: THIAMINE HCL 100 MG in SYRINGE 9 ML IV STA (23:00)
[2024-02-29] MEDS: DOXYCYCLINE HYCLATE 100 MG CAP PO STA (23:02)
[2024-02-29] MEDS: GABAPENTIN 300 MG CAP PO SCH (23:03)
[2024-02-29] MEDS: busPIRone 5 MG TAB PO SCH (23:03)
[2024-02-29] MEDS: LORazepam 2 MG/1 ML VIAL IV PRN (23:14)
[2024-02-29] MEDS: chlordiazePOXIDE HCl 25 MG CAP PO SCH (23:15)
[2024-03-01] MEDS: POTASSIUM CHLORIDE 20 MEQ in LACTATED RINGER'S 1,000 ML IV ONE (00:01)
[2024-03-01 07:28] LABS: Hematocrit (blood only) 39.5 % (42.0-52.0); Mean Corpuscular Hemoglobin 30.8 pg (25.0-34.0); Mean Corpuscular Hgb Conc 32.9 g/dL (32.0-36.0); Mean Corpuscular Volume 93.6 fL (80.0-100.0); Mean Platelet Volume 10.5 fL (9.4-12.4); Platelet Count 100 K/uL (130-400); RDW Coefficient of Variation 13.7 % (11.5-14.5); RDW Standard Deviation 46.7 fL (36.4-46.3); Red Blood Count 4.22 M/uL (4.70-6.10); White Blood Count 2.91 K/ul (4.8-10.8)
[2024-03-01 07:34] LABS: Albumin Globulin Ratio 0.7 (0.9-2); BUN Creatinine Ratio 6.7 (10-20); Bilirubin,Total 0.7 mg/dl (0.2-1.0); Calcium 7.9 mg/dl (8.6-10.3); Creatinine Clr Calc Pharmacy 142.5 ml/min; Globulin 4.2 gm/dl (2.5-4.0); Magnesium 1.6 mg/dl (1.7-2.4); Potassium 3.1 mmol/L (3.5-5.1); Total Protein 7.2 gm/dl (6.0-8.3)
[2024-03-01 07:55] LABS: Basophils # (auto) 0.04 K/uL (0.00-0.20); Basophils % (auto) 1.4 %; Eosinophils % (auto) 6.9 %; Immature Granulocytes # (auto) 0.01 K/uL (0.01-0.20); Immature Granulocytes % (auto) 0.3 %; Lymphocytes # (auto) 1.26 K/uL (1.20-3.40); Lymphocytes % (auto) 43.3 %; Monocytes # (auto) 0.47 K/uL (0.11-0.59); Monocytes % (auto) 16.2 %; Neutrophils # (auto) 0.93 K/uL (1.40-6.50); Neutrophils % (auto) 31.9 %
[2024-03-01] MEDS: nadoloL 40 MG TAB PO SCH (08:48)
[2024-03-01] MEDS: PANTOprazole 40 MG TAB PO SCH (08:49)
[2024-03-01] MEDS: ursodioL 300 MG CAP PO SCH (08:49)
[2024-03-01] MEDS: FOLIC ACID 1 MG TAB PO SCH (08:50)
[2024-03-01] MEDS: THIAMINE HCL 100 MG TAB PO SCH (08:50)
[2024-03-01] MEDS: MULTIVITAMIN TAB PO SCH (08:50)
[2024-03-01] MEDS: MAGNESIUM CHLORIDE W/CALCIUM 64MG DELAYED REL TAB PO SCH (08:50)
[2024-03-01] MEDS: DOXYCYCLINE HYCLATE 100 MG CAP PO SCH (09:55)
[2024-03-01] MEDS: POTASSIUM CHLORIDE CRTAB 20 MEQ TABCR PO STA (09:56)
--- NOTE | 2024-03-01 13:34 | Hospitalist Progress Note ---
Date of Service March 01, 2024 Assessment & Plan (1) Alcohol withdrawal: Plan Pt is a 48yoF with PMHx significant for alcoholic cirrhosis, history of esophageal varices, history of alcohol withdrawal seizures, chronic pancytopenia (baseline hemoglobin of 11), ongoing alcohol abuse who presented with concern for alcohol abuse once more and to go through withdrawal. Alcohol withdrawal LARISA S, DT precautions Librium tapering dose adjusted for liver disease Replace electrolytes IVF, Hold home diuretic for now until patient euvolemic Continue to monitor Abscess left back status post drainage Some improvement following drainage. Unable to comply with outpatient PCP antibiotic Rx Patient not septic. Doxycycline for residual abscess left upper back General Surgery consult if without improvement. Continue to monitor Hypokalemia hypomagnesemia secondary to alcoholism and home diuretic Rx hx alcoholic cirrhosis no overt decompensation Alcoholic hepatitis good prognosis on computed Maddrey DF score of 1.6 points. Chronic pancytopenia secondary to liver disease hemoglobin currently within normal limits likely secondary to hemoconcentration DVT prophylaxis. SCDs Re: Thrombocytopenia Full code Admission and Anticipated Discharge Date Admission Date: February 29, 2024 Subjective the patient was seen laying in bed Stated that he had some mild tremors Denied any chest pain, shortness of breath, headache or nausea vomiting Review of Systems Review of Systems: All systems reviewed & are unremarkable except as noted in Subjective Physical Exam Physical Exam: General: Alert, oriented. No acute distress Psych: Appropriate mood and affect Neuro: No gross deficits HEENT: NC/AT CV: RRR Resp: Breath sounds clear bilaterally, no increased effort of breathing Abdomen: Soft, nontender Extremities: No edema in lower extremities bilaterally. Results & Data Results & Data Vital Signs (Past 12 Hours) Vital Signs Temp Pulse Pulse Pulse Resp BP Pulse Ox 03/01/24 11:54 37.0 C 66 18 129/82 92 03/01/24 07:18 83 03/01/24 07:12 36.8 C 64 18 137/80 93 03/01/24 03:29 36.4 C L 82 20 122/73 93 O2 Del Method 03/01/24 11:54 Room Air 03/01/24 07:18 03/01/24 07:12 Room Air 03/01/24 03:29 Room Air
[2024-03-01] MEDS: oxyCODONE HCL IR 5 MG TAB (IMMEDIATE RELEASE) PO PRN (17:03)
[2024-03-01] MEDS: chlordiazePOXIDE HCl 25 MG CAP PO SCH (23:27)
[2024-03-02] MEDS: LORazepam 2 MG/1 ML VIAL IV PRN (03:18)
[2024-03-02] MEDS: POTASSIUM CHLORIDE CRTAB 20 MEQ TABCR PO STA (07:13)
[2024-03-02] MEDS: ACETAMINOPHEN 500 MG TAB PO STA (07:13)
[2024-03-02 07:25] LABS: Basophils # (auto) 0.06 K/uL (0.00-0.20); Basophils % (auto) 0.7 %; Eosinophils # (auto) 0.44 K/uL (0.00-0.50); Eosinophils % (auto) 5.4 %; Hematocrit (blood only) 40.8 % (42.0-52.0); Hemoglobin 13.6 g/dl (14.0-18.0); Immature Granulocytes # (auto) 0.03 K/uL (0.01-0.20); Immature Granulocytes % (auto) 0.4 %; Lymphocytes # (auto) 1.63 K/uL (1.20-3.40); Mean Corpuscular Hemoglobin 31.4 pg (25.0-34.0); Mean Corpuscular Hgb Conc 33.3 g/dL (32.0-36.0); Mean Corpuscular Volume 94.2 fL (80.0-100.0); Mean Platelet Volume 10.6 fL (9.4-12.4); Monocytes # (auto) 1.17 K/uL (0.11-0.59); Monocytes % (auto) 14.4 %; Neutrophils # (auto) 4.82 K/uL (1.40-6.50); Neutrophils % (auto) 59.1 %; Platelet Count 136 K/uL (130-400); RDW Coefficient of Variation 13.5 % (11.5-14.5); Red Blood Count 4.33 M/uL (4.70-6.10); White Blood Count 8.15 K/ul (4.8-10.8)
[2024-03-02 07:54] LABS: Albumin Globulin Ratio 0.7 (0.9-2); Albumin Level 3.1 gm/dl (3.4-5.0); BUN Creatinine Ratio 13.8 (10-20); Bilirubin,Total 1.3 mg/dl (0.2-1.0); Calcium 8.6 mg/dl (8.6-10.3); Creatinine Clr Calc Pharmacy 106.9 ml/min; Globulin 4.4 gm/dl (2.5-4.0); Magnesium 1.5 mg/dl (1.7-2.4); Phosphorus 2.6 mg/dl (2.5-4.9); Potassium 4.1 mmol/L (3.5-5.1); Total Protein 7.5 gm/dl (6.0-8.3)
--- NOTE | 2024-03-02 08:43 | Ultrasound Report ---
BILATERAL LOWER EXTREMITY VENOUS DOPPLER CLINICAL HISTORY: Bilateral leg pain. COMPARISON STUDY: Bilateral lower extremity venous Doppler ultrasound July 24, 2023. TECHNIQUE: Sonography of the deep venous system of the bilateral lower extremities was performed. Co mpression and augmentation were evaluated. FINDINGS: The bilateral common femoral, superficial femoral and popliteal veins were compressible. A ugmentation was normal. Flow was shown within the deep calf vessels. IMPRESSION: No evidence of deep venous thrombus within the bilateral lower extremities. ACT 112: Negative or not required by law. Electronically signed by: Fidel Krishnamurthy M.D. 03/02/2024 8:42 AM
[2024-03-02] MEDS: POTASSIUM CHLORIDE CRTAB 20 MEQ TABCR PO ONE (08:44)
[2024-03-02] MEDS: MAGNESIUM SULFATE / D5W 1 GM/100 ML BAG IV SCH (09:52)
[2024-03-02] MEDS: CYCLOBENZAPRINE HCL 5 MG TAB PO PRN (13:31)
--- NOTE | 2024-03-02 14:09 | Hospitalist Progress Note ---
Date of Service March 02, 2024 Assessment & Plan (1) Alcohol withdrawal: Plan Pt is a 48yoF with PMHx significant for alcoholic cirrhosis, history of esophageal varices, history of alcohol withdrawal seizures, chronic pancytopenia (baseline hemoglobin of 11), ongoing alcohol abuse who presented with concern for alcohol abuse once more and to go through withdrawal. Alcohol withdrawal LARISA S, DT precautions Librium tapering dose adjusted for liver disease Replace electrolytes IVF, Hold home diuretic for now until patient euvolemic Continue to monitor Abscess left back status post drainage Some improvement following drainage. Unable to comply with outpatient PCP antibiotic Rx Patient not septic. Doxycycline for residual abscess left upper back General Surgery consult if without improvement. Continue to monitor Lower Extremity leg pain Venous doppler US negative PRN Flexeril PRN pain meds Continue to monitor Hypokalemia hypomagnesemia secondary to alcoholism and home diuretic Rx hx alcoholic cirrhosis no overt decompensation Alcoholic hepatitis good prognosis on computed Maddrey DF score of 1.6 points. Chronic pancytopenia secondary to liver disease hemoglobin currently within normal limits likely secondary to hemoconcentration DVT prophylaxis. SCDs Re: Thrombocytopenia Full code Admission and Anticipated Discharge Date Admission Date: February 29, 2024 Subjective the patient was seen laying in bed Reports of leg cramping, states that it is painful States the flexeril given helped a little. Review of Systems Review of Systems: All systems reviewed & are unremarkable except as noted in Subjective Physical Exam Physical Exam: General: Alert, oriented. No acute distress Psych: Appropriate mood and affect Neuro: tremors noted HEENT: NC/AT CV: RRR Resp: Breath sounds clear bilaterally, no increased effort of breathing Abdomen: Soft, nontender Extremities: No edema in lower extremities bilaterally. Results & Data Results & Data Vital Signs (Past 12 Hours) Vital Signs Temp Pulse Pulse Resp BP Pulse Ox O2 Del Method 03/02/24 11:45 36.7 C 75 18 126/81 98 Room Air 03/02/24 08:01 18 03/02/24 07:24 36.7 C 88 18 135/89 92 Room Air 03/02/24 05:45 74 03/02/24 03:05 36.6 C 68 18 132/84 95 Room Air Diagnostic Findings Venous Doppler Study 03/02/24 06:53 BILATERAL LOWER EXTREMITY VENOUS DOPPLER CLINICAL HISTORY: Bilateral leg pain. COMPARISON STUDY: Bilateral lower extremity venous Doppler ultrasound July 24, 2023. TECHNIQUE: Sonography of the deep venous system of the bilateral lower extremit ies was performed. Compression and augmentation were evaluated. FINDINGS: The bilateral common femoral, superficial femoral and popliteal veins were compressible. Augmentation was normal. Flow was shown within the deep calf vessels. IMPRESSION: No evidence of deep venous thrombus within the bilateral lower extremities. ACT 112: Negative or not required by law. Electronically signed by: Fidel Krishnamurthy M.D. 03/02/2024 8:42 AM
[2024-03-03] MEDS: ACETAMINOPHEN 500 MG TAB PO PRN (06:37)
--- NOTE | 2024-03-03 07:45 | Hospitalist Progress Note ---
Date of Service March 03, 2024 Assessment & Plan (1) Alcohol withdrawal: Plan Mr. Guillory a 48yoF with PMHx significant for alcoholic cirrhosis, history of esophageal varices, history of alcohol withdrawal seizures, chronic pancytopenia (baseline hemoglobin of 11), ongoing alcohol abuse who presented with concern for alcohol abuse once more and to go through withdrawal. #Alcohol withdrawal LARISA S, DT precautions Librium tapering dose adjusted for liver disease Replace electrolytes IVF, Hold home diuretic for now until patient euvolemic Continue to monitor #Abscess left back status post drainage Some improvement following drainage. Unable to comply with outpatient PCP antibiotic Rx Patient not septic. Doxycycline for residual abscess left upper back Continued improvement #Lower Extremity leg pain Venous doppler US negative iron panel to rule out deficiency contributing to discomofort ropinrole qhs #Hypokalemia #hypomagnesemia secondary to alcoholism and home diuretic Rx replace #hx alcoholic cirrhosis no overt decompensation #Alcoholic hepatitis good prognosis on computed Maddrey DF score of 1.6 points. #Chronic pancytopenia secondary to liver disease hemoglobin currently within normal limits likely secondary to hemoconcentration DVT prophylaxis. SCDs Re: Thrombocytopenia Full code Admission and Anticipated Discharge Date Admission Date: February 29, 2024 Subjective NAEO reports anxiety overall and restless legs Physical Exam Constitutional: WD/WN, vitals as above Respiratory: normal respiratory effort, lungs clear to auscultation Cardiovascular: RRR, no murmur, no edema Results & Data Results & Data Vital Signs (Past 12 Hours) Vital Signs Temp Pulse Pulse Resp BP Pulse Ox O2 Del Method 03/03/24 06:14 80 03/03/24 03:00 36.5 C 82 18 128/76 94 Room Air 03/02/24 22:37 36.6 C 80 20 117/73 95 Room Air 03/02/24 21:57 86 Laboratory Results Short CBC 03/03/24 Range/Units 07:48 WBC 6.60 (4.8-10.8) K/ul Hgb 12.8 L (14.0-18.0) g/dl Hct 38.2 L (42.0-52.0) % Plt Count 100 L (130-400) K/uL BMP 03/03/24 07:48 Sodium 133 L Potassium 3.8 Chloride 102 Carbon Dioxide 26 BUN 12 Creatinine 0.80 Glucose 176 H Calcium 8.3 L Liver Function 03/03/24 Range/Units 07:48 Total Bilirubin 1.0 (0.2-1.0) mg/dl AST 23 (13-39) U/L ALT 10 (7-52) U/L Alkaline Phosphatase 75 (34-104) U/L Albumin 3.0 L (3.4-5.0) gm/dl Medications Administered Home Medications Medication Instructions Recorded Confirmed Last Taken buspirone 5 mg tablet 5 mg PO BID 06/10/18 02/29/24 12/19/23 nadolol 20 mg tablet 20 mg PO QAM 06/10/18 02/29/24 12/19/23 ursodiol 300 mg capsule 300 mg PO BID 06/10/18 02/29/24 12/19/23 furosemide 20 mg tablet 20 mg PO QAM 11/14/22 02/29/24 12/19/23 spironolactone 25 mg tablet 25 mg PO QAM 11/14/22 02/29/24 12/19/23 folic acid 1 mg tablet 1 mg PO QAM #30 tabs 06/06/23 02/29/24 12/19/23 gabapentin 300 mg capsule 300 mg PO TID 07/03/23 02/29/24 12/19/23 pantoprazole 40 mg tablet,delayed 40 mg PO QAM 08/01/23 02/29/24 12/19/23 release potassium chloride 20 mEq 20 meq PO QAM #30 tabs 08/27/23 02/29/24 12/19/23 tablet,extended release(part/cryst) thiamine mononitrate (vit B1) 100 100 mg PO QAM 01/14/24 02/29/24 Unknown mg tablet (Vitamin B-1 (mononitrate)) magnesium chloride 64 mg 64 mg PO AMHS 01/29/24 02/29/24 Unknown (magnesium chloride) tablet,delayed release (Mag 64) zolpidem 5 mg tablet 5 mg PO HS PRN Sleep 01/29/24 02/29/24 Unknown cholecalciferol (vitamin D3) 125 125 mcg PO QAM 02/29/24 02/29/24 Unknown mcg (5,000 unit) tablet (Vitamin D3) magnesium chloride 64 mg 64 mg PO AMHS 02/29/24 02/29/24 Unknown (magnesium chloride) tablet,delayed release (Mag 64) vancomycin 125 mg capsule 125 mg PO Q6 02/29/24 02/29/24 Unknown Active Medications Generic Name Dose Route Start Last Admin Trade Name Freq PRN Reason Stop Dose Admin Acetaminophen 500 mg 02/29/24 22:35 03/03/24 16:02 Acetaminophen 500 Mg Tab PO 03/30/24 22:34 500 mg Q6H PRN Administration fever/pain Buspirone HCl 5 mg 02/29/24 22:30 03/03/24 08:21 Buspirone 5 Mg Tab PO 03/30/24 22:29 5 mg BID LANDRY Administration Cyclobenzaprine HCl 5 mg 03/02/24 10:00 03/03/24 18:40 Cyclobenzaprine Hcl 5 Mg Tab PO 04/01/24 13:59 5 mg TID PRN Administration Muscle Spasm Doxycycline Hyclate 100 mg 03/01/24 09:00 03/03/24 08:21 Doxycycline Hyclate 100 Mg Cap PO 03/08/24 08:59 100 mg BID LANDRY Administration Folic Acid 1 mg 03/01/24 09:00 03/03/24 08:21 Folic Acid 1 Mg Tab PO 03/31/24 08:59 1 mg QAM LANDRY Administration Gabapentin 300 mg 02/29/24 22:30 03/03/24 14:05 Gabapentin 300 Mg Cap PO 03/30/24 22:29 300 mg TID LANDRY Administration Promethazine HCl 6.25 mg in 50.25 mls @ 201 mls/hr 02/29/24 22:35 03/03/24 14:30 Phenergan IV 03/30/24 22:34 Infused Q6H PRN Infusion Nausea And Vomiting Lorazepam 1 mg 02/29/24 22:46 03/01/24 20:39 Lorazepam 2 Mg/1 Ml Vial IV 03/30/24 22:45 1 mg UD PRN Administration EtOH Withdrawal AWSS Score 6,7 Protocol Lorazepam 2 mg 02/29/24 22:46 03/02/24 06:39 Lorazepam 2 Mg/1 Ml Vial IV 03/30/24 22:45 2 mg UD PRN Administration EtOH Withdrawal AWSS Score 8,9 Protocol Magnesium Chloride 64 mg 03/01/24 09:00 03/03/24 08:21 Magnesium Chloride W/Calcium 64mg Delayed Rel Tab PO 03/31/24 08:59 64 mg AMHS LANDRY Administration Multivitamins 1 tab 03/01/24 09:00 03/03/24 08:21 Multivitamin Tab PO 03/31/24 08:59 1 tab QAM LANDRY Administration Nadolol 20 mg 03/01/24 09:00 03/03/24 11:34 Nadolol 40 Mg Tab PO 03/31/24 08:59 20 mg QAM LANDRY Administration Oxycodone HCl 5 mg 02/29/24 22:35 03/03/24 18:40 Oxycodone Hcl Ir 5 Mg Tab (Immediate Release) PO 03/14/24 22:34 5 mg Q4H PRN Administration Pain Pantoprazole Sodium 40 mg 03/01/24 09:00 03/03/24 08:21 Pantoprazole 40 Mg Tab PO 03/31/24 08:59 40 mg QAM LANDRY Administration Thiamine HCl 100 mg 03/01/24 09:00 03/03/24 08:21 Thiamine Hcl 100 Mg Tab PO 03/31/24 08:59 100 mg QAM LANDRY Administration Ursodiol 300 mg 03/01/24 09:00 03/03/24 08:21 Ursodiol 300 Mg Cap PO 03/31/24 08:59 300 mg BID LANDRY Administration
[2024-03-03 08:19] LABS: Basophils # (auto) 0.05 K/uL (0.00-0.20); Basophils % (auto) 0.8 %; Eosinophils # (auto) 0.32 K/uL (0.00-0.50); Eosinophils % (auto) 4.8 %; Hematocrit (blood only) 38.2 % (42.0-52.0); Hemoglobin 12.8 g/dl (14.0-18.0); Immature Granulocytes # (auto) 0.02 K/uL (0.01-0.20); Immature Granulocytes % (auto) 0.3 %; Lymphocytes # (auto) 1.76 K/uL (1.20-3.40); Lymphocytes % (auto) 26.7 %; Mean Corpuscular Hemoglobin 31.8 pg (25.0-34.0); Mean Corpuscular Hgb Conc 33.5 g/dL (32.0-36.0); Mean Corpuscular Volume 94.8 fL (80.0-100.0); Mean Platelet Volume 11.4 fL (9.4-12.4); Monocytes # (auto) 0.92 K/uL (0.11-0.59); Monocytes % (auto) 13.9 %; Neutrophils # (auto) 3.53 K/uL (1.40-6.50); Neutrophils % (auto) 53.5 %; Platelet Count 100 K/uL (130-400); RDW Coefficient of Variation 13.6 % (11.5-14.5); RDW Standard Deviation 47.8 fL (36.4-46.3); Red Blood Count 4.03 M/uL (4.70-6.10)
[2024-03-03 08:37] LABS: Albumin Globulin Ratio 0.7 (0.9-2); Calcium 8.3 mg/dl (8.6-10.3); Creatinine Clr Calc Pharmacy 106.9 ml/min; Globulin 4.1 gm/dl (2.5-4.0); Magnesium 1.6 mg/dl (1.7-2.4); Phosphorus 3.1 mg/dl (2.5-4.9); Potassium 3.8 mmol/L (3.5-5.1); Total Protein 7.1 gm/dl (6.0-8.3)
[2024-03-03] MEDS: PROMETHAZINE 6.25 MG/50.25 ML BAG IV PRN (14:04)
[2024-03-03] MEDS: busPIRone 5 MG TAB PO SCH (20:19)
[2024-03-03] MEDS: rOPINIRole HCL 0.25 MG TABLET PO SCH (20:33)
[2024-03-04] MEDS: chlordiazePOXIDE HCl 5 MG CAP PO SCH (06:02)
[2024-03-04 06:30] LABS: Basophils # (auto) 0.07 K/uL (0.00-0.20); Eosinophils # (auto) 0.39 K/uL (0.00-0.50); Eosinophils % (auto) 5.4 %; Hematocrit (blood only) 39.4 % (42.0-52.0); Hemoglobin 12.8 g/dl (14.0-18.0); Immature Granulocytes # (auto) 0.03 K/uL (0.01-0.20); Immature Granulocytes % (auto) 0.4 %; Lymphocytes % (auto) 23.6 %; Mean Corpuscular Hgb Conc 32.5 g/dL (32.0-36.0); Mean Corpuscular Volume 95.4 fL (80.0-100.0); Mean Platelet Volume 10.6 fL (9.4-12.4); Monocytes # (auto) 0.82 K/uL (0.11-0.59); Monocytes % (auto) 11.4 %; Neutrophils # (auto) 4.18 K/uL (1.40-6.50); Neutrophils % (auto) 58.2 %; Platelet Count 101 K/uL (130-400); RDW Standard Deviation 49.1 fL (36.4-46.3); Red Blood Count 4.13 M/uL (4.70-6.10); White Blood Count 7.19 K/ul (4.8-10.8)
[2024-03-04 06:54] LABS: Albumin Globulin Ratio 0.7 (0.9-2); BUN Creatinine Ratio 13.6 (10-20); Bilirubin,Total 0.8 mg/dl (0.2-1.0); Calcium 8.4 mg/dl (8.6-10.3); Creatinine Clr Calc Pharmacy 105.6 ml/min; Globulin 4.3 gm/dl (2.5-4.0); Magnesium 1.5 mg/dl (1.7-2.4); Phosphorus 3.6 mg/dl (2.5-4.9); Potassium 3.8 mmol/L (3.5-5.1); Total Protein 7.3 gm/dl (6.0-8.3)
[2024-03-04 07:13] LABS: Ferritin 101.5 ng/ml (8-388)
--- NOTE | 2024-03-04 07:19 | Hospitalist Progress Note ---
Date of Service March 04, 2024 Assessment & Plan (1) Alcohol withdrawal: Plan Mr. Guillory a 48yoF with PMHx significant for alcoholic cirrhosis, history of esophageal varices, history of alcohol withdrawal seizures, chronic pancytopenia (baseline hemoglobin of 11), ongoing alcohol abuse who presented with concern for alcohol abuse once more and to go through withdrawal. #Alcohol withdrawal LARISA S, DT precautions Librium tapering dose adjusted for liver disease Replace electrolytes IVF, Hold home diuretic for now until patient euvolemic Continue to monitor #Abscess left back status post drainage Some improvement following drainage. Unable to comply with outpatient PCP antibiotic Rx Patient not septic. Doxycycline for residual abscess left upper back Continued improvement #Lower Extremity leg pain Venous doppler US negative potentially related to Iron deficiency, will give venofer x 1 and given iron supplement iron panel to rule out deficiency contributing to discomfort ropinrole qhs #Hypokalemia #hypomagnesemia secondary to alcoholism and home diuretic Rx replace #hx alcoholic cirrhosis no overt decompensation #Alcoholic hepatitis good prognosis on computed Maddrey DF score of 1.6 points. #Chronic pancytopenia secondary to liver disease hemoglobin currently within normal limits likely secondary to hemoconcentration DVT prophylaxis. SCDs Re: Thrombocytopenia Full code likely dispo tomorrow Admission and Anticipated Discharge Date Admission Date: February 29, 2024 Subjective NAEO states some relief with the ropinirole agrees to iron to see if it helps Physical Exam Constitutional: WD/WN, vitals as above Respiratory: normal respiratory effort, lungs clear to auscultation Cardiovascular: RRR, no murmur, no edema Results & Data Results & Data Vital Signs (Past 12 Hours) Vital Signs Temp Pulse Pulse Resp BP Pulse Ox O2 Del Method 03/04/24 07:06 74 03/04/24 03:39 36.8 C 71 18 145/87 H 92 Room Air 03/03/24 23:22 36.6 C 67 16 118/78 97 Room Air 03/03/24 21:44 67 03/03/24 19:45 36.6 C 73 16 115/76 97 Room Air Laboratory Results Short CBC 03/03/24 03/04/24 Range/Units 07:48 06:12 WBC 6.60 7.19 (4.8-10.8) K/ul Hgb 12.8 L 12.8 L (14.0-18.0) g/dl Hct 38.2 L 39.4 L (42.0-52.0) % Plt Count 100 L 101 L (130-400) K/uL BMP 03/03/24 03/04/24 07:48 06:12 Sodium 133 L 135 L Potassium 3.8 3.8 Chloride 102 103 Carbon Dioxide 26 26 BUN 12 11 Creatinine 0.80 0.81 Glucose 176 H 104 H Calcium 8.3 L 8.4 L Liver Function 03/03/24 03/04/24 Range/Units 07:48 06:12 Total Bilirubin 1.0 0.8 (0.2-1.0) mg/dl AST 23 26 (13-39) U/L ALT 10 11 (7-52) U/L Alkaline Phosphatase 75 78 (34-104) U/L Albumin 3.0 L 3.0 L (3.4-5.0) gm/dl Medications Administered Home Medications Medication Instructions Recorded Confirmed Last Taken buspirone 5 mg tablet 5 mg PO BID 06/10/18 02/29/24 12/19/23 nadolol 20 mg tablet 20 mg PO QAM 06/10/18 02/29/24 12/19/23 ursodiol 300 mg capsule 300 mg PO BID 06/10/18 02/29/24 12/19/23 furosemide 20 mg tablet 20 mg PO QAM 11/14/22 02/29/24 12/19/23 spironolactone 25 mg tablet 25 mg PO QAM 11/14/22 02/29/24 12/19/23 folic acid 1 mg tablet 1 mg PO QAM #30 tabs 06/06/23 02/29/24 12/19/23 gabapentin 300 mg capsule 300 mg PO TID 07/03/23 02/29/24 12/19/23 pantoprazole 40 mg tablet,delayed 40 mg PO QAM 08/01/23 02/29/24 12/19/23 release potassium chloride 20 mEq 20 meq PO QAM #30 tabs 08/27/23 02/29/24 12/19/23 tablet,extended release(part/cryst) thiamine mononitrate (vit B1) 100 100 mg PO QAM 01/14/24 02/29/24 Unknown mg tablet (Vitamin B-1 (mononitrate)) magnesium chloride 64 mg 64 mg PO AMHS 01/29/24 02/29/24 Unknown (magnesium chloride) tablet,delayed release (Mag 64) zolpidem 5 mg tablet 5 mg PO HS PRN Sleep 01/29/24 02/29/24 Unknown cholecalciferol (vitamin D3) 125 125 mcg PO QAM 02/29/24 02/29/24 Unknown mcg (5,000 unit) tablet (Vitamin D3) magnesium chloride 64 mg 64 mg PO AMHS 02/29/24 02/29/24 Unknown (magnesium chloride) tablet,delayed release (Mag 64) vancomycin 125 mg capsule 125 mg PO Q6 02/29/24 02/29/24 Unknown Active Medications Generic Name Dose Route Start Last Admin Trade Name Freq PRN Reason Stop Dose Admin Acetaminophen 500 mg 02/29/24 22:35 03/03/24 16:02 Acetaminophen 500 Mg Tab PO 03/30/24 22:34 500 mg Q6H PRN Administration fever/pain Buspirone HCl 5 mg 03/03/24 21:00 03/03/24 20:19 Buspirone 5 Mg Tab PO 04/02/24 20:59 5 mg TID LANDRY Administration Chlordiazepoxide HCl 5 mg 03/04/24 06:00 03/04/24 06:02 Chlordiazepoxide Hcl 5 Mg Cap PO 03/04/24 18:01 5 mg Q12H LANDRY Administration Cyclobenzaprine HCl 5 mg 03/02/24 10:00 03/03/24 18:40 Cyclobenzaprine Hcl 5 Mg Tab PO 04/01/24 13:59 5 mg TID PRN Administration Muscle Spasm Doxycycline Hyclate 100 mg 03/01/24 09:00 03/03/24 20:19 Doxycycline Hyclate 100 Mg Cap PO 03/08/24 08:59 100 mg BID LANDRY Administration Folic Acid 1 mg 03/01/24 09:00 03/03/24 08:21 Folic Acid 1 Mg Tab PO 03/31/24 08:59 1 mg QAM LANDRY Administration Gabapentin 300 mg 02/29/24 22:30 03/03/24 20:19 Gabapentin 300 Mg Cap PO 03/30/24 22:29 300 mg TID LANDRY Administration Promethazine HCl 6.25 mg in 50.25 mls @ 201 mls/hr 02/29/24 22:35 03/03/24 14:30 Phenergan IV 03/30/24 22:34 Infused Q6H PRN Infusion Nausea And Vomiting Lorazepam 1 mg 02/29/24 22:46 03/01/24 20:39 Lorazepam 2 Mg/1 Ml Vial IV 03/30/24 22:45 1 mg UD PRN Administration EtOH Withdrawal AWSS Score 6,7 Protocol Lorazepam 2 mg 02/29/24 22:46 03/02/24 06:39 Lorazepam 2 Mg/1 Ml Vial IV 03/30/24 22:45 2 mg UD PRN Administration EtOH Withdrawal AWSS Score 8,9 Protocol Magnesium Chloride 64 mg 03/01/24 09:00 03/03/24 20:19 Magnesium Chloride W/Calcium 64mg Delayed Rel Tab PO 03/31/24 08:59 64 mg AMHS LANDRY Administration Multivitamins 1 tab 03/01/24 09:00 03/03/24 08:21 Multivitamin Tab PO 03/31/24 08:59 1 tab QAM LANDRY Administration Nadolol 20 mg 03/01/24 09:00 03/03/24 11:34 Nadolol 40 Mg Tab PO 03/31/24 08:59 20 mg QAM LANDRY Administration Oxycodone HCl 5 mg 02/29/24 22:35 03/04/24 06:03 Oxycodone Hcl Ir 5 Mg Tab (Immediate Release) PO 03/14/24 22:34 5 mg Q4H PRN Administration Pain Pantoprazole Sodium 40 mg 03/01/24 09:00 03/03/24 08:21 Pantoprazole 40 Mg Tab PO 03/31/24 08:59 40 mg QAM LANDRY Administration Ropinirole HCl 0.25 mg 03/03/24 21:00 03/03/24 20:33 Ropinirole Hcl 0.25 Mg Tablet PO 04/02/24 20:59 0.25 mg HS LANDRY Administration Thiamine HCl 100 mg 03/01/24 09:00 03/03/24 08:21 Thiamine Hcl 100 Mg Tab PO 03/31/24 08:59 100 mg QAM LANDRY Administration Ursodiol 300 mg 03/01/24 09:00 03/03/24 20:19 Ursodiol 300 Mg Cap PO 03/31/24 08:59 300 mg BID LANDRY Administration
[2024-03-04] MEDS: MAGNESIUM SULFATE / D5W 1 GM/100 ML BAG IV ONE (07:37)
[2024-03-04] MEDS: IRON SUCROSE 300 MG in SODIUM CHLORIDE 0.9% 250 ML IV ONE (09:38)
[2024-03-04] MEDS: TROLAMINE SALICYLATE 10% CRM 255 APPLN/85 GM TUBE EXT SCH (11:32)
[2024-03-04 19:53] VITALS: RESP 18
[2024-03-05 04:42] VITALS: TEMP 97.9
[2024-03-05 07:14] LABS: Hematocrit (blood only) 37.3 % (42.0-52.0); Hemoglobin 12.5 g/dl (14.0-18.0); Mean Corpuscular Hemoglobin 31.9 pg (25.0-34.0); Mean Corpuscular Hgb Conc 33.5 g/dL (32.0-36.0); Mean Corpuscular Volume 95.2 fL (80.0-100.0); Mean Platelet Volume 11.1 fL (9.4-12.4); Platelet Count 113 K/uL (130-400); RDW Coefficient of Variation 14.1 % (11.5-14.5); RDW Standard Deviation 48.5 fL (36.4-46.3); Red Blood Count 3.92 M/uL (4.70-6.10); White Blood Count 5.32 K/ul (4.8-10.8)
[2024-03-05 08:04] VITALS: BP 91/56; O2SAT 94
[2024-03-05 10:06] LABS: BUN Creatinine Ratio 11.8 (10-20); Calcium 8.7 mg/dl (8.6-10.3); Creatinine Clr Calc Pharmacy 100.6 ml/min; Potassium 3.8 mmol/L (3.5-5.1)
--- NOTE | 2024-03-05 10:36 | Discharge Summary ---
Discharge Summary Date of Service March 05, 2024 Principal Dx & Hospital Course #1 = Principal Diagnosis (1) Alcohol withdrawal: Plan Mr. Guillory a 48yoF with PMHx significant for alcoholic cirrhosis, history of esophageal varices, history of alcohol withdrawal seizures, chronic pancytopenia (baseline hemoglobin of 11), ongoing alcohol abuse who presented with concern for alcohol abuse once more and to go through withdrawal. Patient endorses BLE discomfort. Doppler negative for DVT. Skin in tact. Increased Gabapentin to 600mg TID in hopes to help with alcohol cravings in addition to neuropathic pain. Iron deficiency noted on labs--s/p 300mg venofer x1 and recommended PO ferrous sulfate. Strongly encouraged alcohol cessation. Patient declined further resources. On day of discharge, patient did not require any IV ativan for over 24 hours. Patient alert and oriented, eating and ambulating. #Alcohol withdrawal LARISA S, DT precautions Librium tapering dose adjusted for liver disease Replace electrolytes IVF, Hold home diuretic for now until patient euvolemic Continue to monitor #Anxiety increased buspar 5mg TID #Abscess left back status post drainage Some improvement following drainage. Unable to comply with outpatient PCP antibiotic Rx Patient not septic. Doxycycline for residual abscess left upper back Continued improvement #Lower Extremity leg pain Venous doppler US negative potentially related to Iron deficiency, will give venofer x 1 and given iron supplement iron panel to rule out deficiency contributing to discomfort iron supplementation, increased gabapentin #Hypokalemia #hypomagnesemia secondary to alcoholism and home diuretic Rx replace #hx alcoholic cirrhosis no overt decompensation #Alcoholic hepatitis good prognosis on computed Maddrey DF score of 1.6 points. #Chronic pancytopenia secondary to liver disease hemoglobin currently within normal limits likely secondary to hemoconcentration Notes For Next Care Provider Medication Changes From Visit Increased gabapentin 600mg TID Increased Buspar 5mg TID Admission HPI Per Admitting Provider History obtained from patient and records. Medical history significant for alcoholic cirrhosis, history of esophageal varices, history of alcohol withdrawal seizures, chronic pancytopenia (baseline hemoglobin of 11), ongoing alcohol abuse. Monthly admissions since October 2023 for alcohol withdrawal. Recent confinement last month. Patient discharged to alcohol rehab facility where he stayed for a week. Patient started drinking again a week after discharge from rehab facility. 02/13 [facility] ER visit for traumatic left rib fractures and ankle injury secondary to f all. Patient discharged home. 02/20 [facility] ER visit for abscess on the left upper back. Subsequent drainage at the ER. Patient sent home without antibiotics. 02/23 Patient seen at PCPs office on follow-up visit. Left back abscess still noted to be red as per provider note. Patient prescribed Keflex course. Oral vancomycin prescription as needed given in case patient develops diarrhea given history C. difficile as per documentation. Patient has not complied with outpatient prescription. Denies fever or chills. Patient trying to cut down on drinking today. He called outpatient rehab facility seeking admission while he was told to come to ER first to get evaluated. Admits to increased shaking at home. Denies headache, chest pain, SOB, abdominal pain symptoms. Medical History as above Surgical History : Tonsillectomy Family History : DM, asthma, prostate cancer, stroke Personal/Social history : Non-smoker, alcohol abuse, currently unemployed Admission Exam Per Admitting Provider GENERAL: tremulous, no respiratory distress SKIN: Pallor, warm HEENT: Pale palpebral conjunctivae, no ptosis, dry buccal mucosa NECK : Supple, no tenderness CHEST : CTA, no tenderness BACK: Erythematous nodule, left upper back close to the shoulder with minimal tenderness, no fluctuance HEART : Tachycardic, no obvious murmurs ABDOMEN: Some distention, no tenderness EXTREMITIES : no LE swelling/tenderness, no other conspicuous deformities noted NEUROLOGIC : Coherent, no facial asymmetry, tremulous, no other gross focality Discharge Exam Constitutional WD/WN, vitals as above Respiratory normal respiratory effort, lungs clear to auscultation Cardiovascular RRR, no murmur, no edema Updated Medication List Medication Instructions Recorded Confirmed Type nadolol 20 mg tablet 20 mg PO QAM 06/10/18 02/29/24 History ursodiol 300 mg capsule 300 mg PO BID 06/10/18 02/29/24 History furosemide 20 mg tablet 20 mg PO QAM 11/14/22 02/29/24 History spironolactone 25 mg tablet 25 mg PO QAM 11/14/22 02/29/24 History folic acid 1 mg tablet 1 mg PO QAM #30 tabs 06/06/23 02/29/24 Rx pantoprazole 40 mg tablet,delayed 40 mg PO QAM 08/01/23 02/29/24 History release potassium chloride 20 mEq 20 meq PO QAM #30 tabs 08/27/23 02/29/24 Rx tablet,extended release(part/cryst) thiamine mononitrate (vit B1) 100 100 mg PO QAM 01/14/24 02/29/24 History mg tablet (Vitamin B-1 (mononitrate)) zolpidem 5 mg tablet 5 mg PO HS PRN Sleep 01/29/24 02/29/24 History cholecalciferol (vitamin D3) 125 125 mcg PO QAM 02/29/24 02/29/24 History mcg (5,000 unit) tablet (Vitamin D3) magnesium chloride 64 mg 64 mg PO AMHS 02/29/24 02/29/24 History (magnesium chloride) tablet,delayed release (Mag 64) buspirone 5 mg tablet 5 mg PO TID 30 days #90 tabs 03/05/24 Rx ferrous sulfate 325 mg (65 mg 325 mg PO DAILY #30 tabs 03/05/24 Rx iron) tablet gabapentin 300 mg capsule 600 mg (2 x 300 mg) PO TID 30 days 03/05/24 Rx #180 caps Hospital Stay Data Consultations 02/29/24 21:49 ED Decision to Admit Stat Diagnostic Imagining Performed 03/02/24 06:53 US venous doppler LE BI Urgent Pending Results Patient Have Any Pending Studies at Discharge: No Discharge Instructions Given to Patient (Per Discharging Provider) You were admitted for alcohol withdrawal. You also noted to have increased leg pain which is likely neuropathic. Your gabapentin was increased to 600mg three times a day. This can serve to work to help with cravings for alcohol and the nerve pain you feel. You were noted to have low iron and received a transfusion. Iron deficiency can contribute to restless leg type syndrome as well, therefore please continue a daily iron supplement. Ultimately, alcohol cessation will help the progression of your nerve pain from getting worse. Please discuss with PCP other agents if this regimen does not alleviate some of the discomfort. You reported anxiety and your buspar was increased to 5mg three times a day. Please follow up with your PCP to discuss further adjustments. Please continue all other home medications. Total Time Total Time Spent Total Time Spent (In Minutes): 45
[2024-03-05 10:39] VITALS: PULSE 82
== END 2024-03-05 11:15 | disposition home or self-care (01) | DRG 897 ==
LOC: ED 20:52 → 2N 22:05 → SUATTDRO 22:05 → 2N 23:24

== ENCOUNTER 2024-04-28 18:21 | Inpatient (IN) ==
--- NOTE | 2024-04-28 19:10 | Emergency Department Note ---
Impression & Plan Alcohol withdrawal syndrome ADMIT ED Provider Note HPI: History obtained from patient. The patient is a 48-year-old gentleman with longstanding history of alcohol abuse, alcoholic cirrhosis, esophageal varices, presents the emergency department with a chief complaint of alcohol withdrawal. Patient states his last drink was several hours prior to arrival to the ER but he states that he feels that he is going through withdrawal. Patient is is noted to be mildly tachycardic and mildly tremulous on my initial evaluation. He states he does have a history of withdrawal seizure but not about the past 5 or 6 years. Patient states that he was doing well and he was sober just up until the past couple of days. On arrival here to the ER the patient is moderately tachycardic, blood pressure is elevated at 159/99, patient is alert and oriented x 3 on arrival. ROS: - Per HPI Differential Diagnosis: Alcohol intoxication, acute alcohol withdrawal syndrome, polysubstance abuse, hepatic encephalopathy, amongst other potential pathologies. *Outpatient medications and allergy history reviewed. 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 Following my evaluation of the patient he was ordered IV fluids, IV folic acid, IV thiamine, and a dose of IV Ativan. Patient states he felt like he was going through alcohol withdrawal although he states his last alcoholic beverage was just several hours ago. Lab work shows no leukocytosis, hemoglobin is normal, platelet count is normal, CMP shows a hypokalemia 3.0, glucose is 262, alcohol level is elevated at 301. Patient does appear improved following a dose of IV Ativan here, he is no longer tremulous on my reassessment and his heart rate is down trended. He states he has a history of alcohol withdrawal, following our discussion the patient stated his preference for admission as opposed to outpatient management. Case was discussed with the on-call hospitalist for [facility] [place][note 2], patient was placed for admission in stable condition. Consultants/Discussions held with other healthcare providers: -Hospitalist, Dr. Liu Disposition discussion held by myself with: -Patient Diagnosis: 1. Alcohol withdrawal symptoms, acute 2. Elevated blood alcohol level 3. Hypokalemia, acute Disposition: Admission Reinaldo Keane DO Emergency Medicine Past Med/Surg History Problem List (Updated 04/28/24 @ 22:41 by Reinaldo Keane DO) Alcohol withdrawal syndrome (Acute) Alcohol dependence (Acute) Electrolyte abnormality (Acute) Hypokalemia (Acute) Alcohol abuse (Acute) Prolonged QT interval (Acute) Alcoholic cirrhosis Acute hypokalemia (Acute) Nausea & vomiting (Acute) Thrombocytopenia (Acute) Transaminitis (Acute) Hypomagnesemia (Acute) Alcoholic hepatitis (Acute) Esophageal varices Transaminitis (Acute) Medical History Alcohol withdrawal Abrasion of finger Fall Alcohol intoxication Alcohol withdrawal Alcohol withdrawal Cholecystitis Choledocholithiasis Depression Anxiety UGIB (upper gastrointestinal bleed) Thrombocytopenia Ascites Alcohol abuse Alcoholic cirrhosis of liver Esophageal varices Portal hypertension History of macrocytic anemia History of alcohol abuse Surgical History History of esophagogastroduodenoscopy (EGD) Including procedures for esophageal varices banding History of tonsillectomy Family History Mother Diabetes Father Prostate cancer Other No family history of adverse response to anesthesia Social History Smoking Status: Unknown if ever smoked Tobacco Type: Smokeless Tobacco (Dip or Chew) Second Hand Exposure: No; Do You Dip or Chew Tobacco: Yes; Hx Alcohol Use: Yes Alcohol type: hard liquor Hx Substance Use: No Preferred Language: Uzbek Communication Ability: Effective Chemical Lab Supervisor Required: No Beliefs That Will Affect Care: None Current Living Situation: Significant Other Current Living Situation Comment: lives with parents Other Information That Helps Us Care for You: No Feels Safe at Home: Yes Safety Concerns: Feels Safe At This Time Assistive Devices: None Allergies Allergies Allergy/AdvReac Type Severity Reaction Status Date / Time aspirin AdvReac Intermediate PT STATES Verified 02/29/24 22:12 "HAPPENED A CHILD--BLOODY NOSE" Home Meds Home Medications Medication Instructions Recorded Confirmed nadolol 20 mg tablet 20 mg PO HS 06/10/18 04/28/24 ursodiol 300 mg capsule 300 mg PO BID 06/10/18 04/28/24 furosemide 20 mg tablet 20 mg PO QAM 11/14/22 04/28/24 spironolactone 25 mg tablet 25 mg PO QAM 11/14/22 04/28/24 pantoprazole 40 mg tablet,delayed 40 mg PO QAM 08/01/23 04/28/24 release cholecalciferol (vitamin D3) 125 125 mcg PO QAM 02/29/24 04/28/24 mcg (5,000 unit) tablet (Vitamin D3) magnesium chloride 64 mg 64 mg PO AMHS 02/29/24 04/28/24 (magnesium chloride) tablet,delayed release (Mag 64) buspirone 5 mg tablet 5 mg PO AMHS 04/28/24 04/28/24 calcium carbonate 600 mg PO DAILY 04/28/24 04/28/24 ferrous sulfate 325 mg (65 mg 325 mg PO QAM 04/28/24 04/28/24 iron) tablet potassium chloride 20 mEq 20 meq PO AMPM 04/28/24 04/28/24 tablet,extended release(part/cryst) Previous Rx's Medication Instructions Recorded folic acid 1 mg tablet 1 mg PO QAM #30 tabs 06/06/23 gabapentin 300 mg capsule 600 mg (2 x 300 mg) PO TID 30 days 03/05/24 #180 caps Results & Data (ED) Vital Signs Vital Signs - 24 hr 04/28/24 18:32 04/28/24 18:40 04/28/24 19:00 Temperature 36.9 C Temperature Source Skin Pulse Rate 113 H 116 H Pulse Rate [Apical] 101 H Pulse Rhythm Pulse Strength [Apical] Respiratory Rate 17 21 Respiratory Effort / Characteristics Non-Labored Spontaneous Non-Labored Respiratory Depth Normal Normal Respiratory Pattern Regular Regular Blood Pressure 167/106 H Blood Pressure [Left Arm] 159/99 H Blood Pressure Mean 126 Blood Pressure Mean [Left Arm] 119 Blood Pressure Position [Left Arm] Pulse Oximetry 94 95 Oxygen Delivery Method Room Air Room Air Sepsis Recent Fever Within 48 Hours No Sepsis New/Unexplained Change in Mental Status N/A Sepsis Action Taken by Nursing No Action Required 04/28/24 19:07 04/28/24 21:00 Temperature Temperature Source Pulse Rate 105 H Pulse Rate [Apical] 99 H Pulse Rhythm Regular Pulse Strength [Apical] Normal Respiratory Rate 19 20 Respiratory Effort / Characteristics Non-Labored Spontaneous Respiratory Depth Normal Respiratory Pattern Regular Blood Pressure Blood Pressure [Left Arm] 159/99 H Blood Pressure Mean Blood Pressure Mean [Left Arm] 119 Blood Pressure Position [Left Arm] Sitting Pulse Oximetry 95 98 Oxygen Delivery Method Room Air Room Air Sepsis Recent Fever Within 48 Hours Sepsis New/Unexplained Change in Mental Status Sepsis Action Taken by Nursing Laboratory Data 04/28/24 18:52 04/28/24 18:52 Lab Results 04/28/24 Range/Units 18:52 WBC 7.01 (4.8-10.8) K/ul RBC 5.10 (4.70-6.10) M/uL Hgb 16.0 (14.0-18.0) g/dl Hct 46.0 (42.0-52.0) % MCV 90.2 (80.0-100.0) fL MCH 31.4 (25.0-34.0) pg MCHC 34.8 (32.0-36.0) g/dL RDW Std Deviation 47.8 H (36.4-46.3) fL RDW Coeff of Hang 14.3 (11.5-14.5) % Plt Count 155 (130-400) K/uL MPV 9.8 (9.4-12.4) fL Immature Gran % (Auto) 0.1 % Neut % (Auto) 60.8 % Lymph % (Auto) 24.7 % [place] % (Auto) 12.1 % Eos % (Auto) 1.3 % Baso % (Auto) 1.0 % Neut # (Auto) 4.26 (1.40-6.50) K/uL Lymph # (Auto) 1.73 (1.20-3.40) K/uL [place] # (Auto) 0.85 H (0.11-0.59) K/uL Eos # (Auto) 0.09 (0.00-0.50) K/uL Baso # (Auto) 0.07 (0.00-0.20) K/uL Immature Gran # (Auto) 0.01 (0.01-0.20) K/uL Sodium 141 (136-145) mmol/L Potassium 3.0 L (3.5-5.1) mmol/L Chloride 104 (98-107) mmol/L Carbon Dioxide 23 (21-32) mmol/L Anion Gap 14 H (3-11) BUN 5 L (6-23) mg/dl Creatinine 0.84 (0.6-1.4) mg/dl Est Cr Clr Drug Dosing 101.8 ml/min eGFR 106.24 BUN/Creatinine Ratio 6.0 L (10-20) Glucose 262 H (70-99(Fasting)) mg/dl Calcium 8.5 L (8.6-10.3) mg/dl Magnesium 1.7 (1.7-2.4) mg/dl Total Bilirubin 0.8 (0.2-1.0) mg/dl AST 44 H (13-39) U/L ALT 40 (7-52) U/L Alkaline Phosphatase 90 (34-104) U/L Total Protein 8.3 (6.0-8.3) gm/dl Albumin 3.9 (3.4-5.0) gm/dl Globulin 4.4 H (2.5-4.0) gm/dl Albumin/Globulin Ratio 0.9 (0.9-2) Ethyl Alcohol mg/dL 301.1 H (<10.0) mg/dl Administered Medications Potassium Chloride 40 meq/ (Sodium Chloride) 1,020 mls @ 150 mls/hr IV .[id number] [facility] Stop: 04/29/24 19:44 Last Admin: 04/28/24 20:04 Dose: 150 mls/hr Documented By: LESTER Discontinued Medications Folic Acid (Folic Acid 1 Mg Tab) 1 mg PO NOW ONE Stop: 04/28/24 19:05 Last Admin: 04/28/24 19:28 Dose: 1 mg Documented By: LESTER Thiamine HCl 100 mg/ Syringe 10 mls @ 2 mls/min IV NOW ONE Stop: 04/28/24 19:08 Last Admin: 04/28/24 19:28 Dose: 2 mls/min Documented By: LESTER Sodium Chloride (Nss) 1,000 mls @ 999 mls/hr IV .Q1H1M ONE Stop: 04/28/24 20:10 Last Infusion: 04/28/24 20:19 Dose: Infused Documented By: Admin: 04/28/24 19:15 Dose: 999 mls/hr Documented By: LESTER Lorazepam (Lorazepam 2 Mg/1 Ml Vial) 1 mg IV NOW STA Stop: 04/28/24 19:11 Last Admin: 04/28/24 19:14 Dose: 1 mg Documented By: LESTER Ondansetron HCl (Ondansetron Inj 2 Mg/Ml 2 Ml Vial) 4 mg IV NOW STA Stop: 04/28/24 19:12 Last Admin: 04/28/24 19:14 Dose: 4 mg Documented By: LESTER Discharge Plan Visit Data Chief Complaint: Alcohol Withdrawal Stated Complaint: WITHDRAWAL ED Provider: Reinaldo Keane Discharge Problem: Alcohol withdrawal syndrome Patient Disposition: Admitted As Inpatient Discharge Instructions Interventions: ED Discharge Assessment Last Done: 04/28/24 22:00
[2024-04-28] MEDS: ONDANSETRON INJ 2 MG/ML 2 ML VIAL IV STA (19:14)
[2024-04-28] MEDS: LORazepam 2 MG/1 ML VIAL IV STA (19:14)
[2024-04-28] MEDS: SODIUM CHLORIDE 0.9% 1,000 ML IV ONE (19:15)
[2024-04-28 19:21] LABS: Basophils # (auto) 0.07 K/uL (0.00-0.20); Eosinophils # (auto) 0.09 K/uL (0.00-0.50); Eosinophils % (auto) 1.3 %; Immature Granulocytes # (auto) 0.01 K/uL (0.01-0.20); Immature Granulocytes % (auto) 0.1 %; Lymphocytes # (auto) 1.73 K/uL (1.20-3.40); Lymphocytes % (auto) 24.7 %; Mean Corpuscular Hemoglobin 31.4 pg (25.0-34.0); Mean Corpuscular Hgb Conc 34.8 g/dL (32.0-36.0); Mean Corpuscular Volume 90.2 fL (80.0-100.0); Mean Platelet Volume 9.8 fL (9.4-12.4); Monocytes # (auto) 0.85 K/uL (0.11-0.59); Monocytes % (auto) 12.1 %; Neutrophils # (auto) 4.26 K/uL (1.40-6.50); Neutrophils % (auto) 60.8 %; Platelet Count 155 K/uL (130-400); RDW Coefficient of Variation 14.3 % (11.5-14.5); RDW Standard Deviation 47.8 fL (36.4-46.3); White Blood Count 7.01 K/ul (4.8-10.8)
[2024-04-28] MEDS: THIAMINE HCL 100 MG in SYRINGE 9 ML IV ONE (19:28)
[2024-04-28] MEDS: FOLIC ACID 1 MG TAB PO ONE (19:28)
[2024-04-28 19:32] LABS: Albumin Globulin Ratio 0.9 (0.9-2); Albumin Level 3.9 gm/dl (3.4-5.0); Bilirubin,Total 0.8 mg/dl (0.2-1.0); Calcium 8.5 mg/dl (8.6-10.3); Creatinine Clr Calc Pharmacy 101.8 ml/min; Globulin 4.4 gm/dl (2.5-4.0); Total Protein 8.3 gm/dl (6.0-8.3)
[2024-04-28 19:53] LABS: Magnesium 1.7 mg/dl (1.7-2.4)
[2024-04-28] MEDS: POTASSIUM CHLORIDE 40 MEQ in SODIUM CHLORIDE 0.9% 1,000 ML IV SCH (20:04)
--- NOTE | 2024-04-28 20:35 | History & Physical Report ---
Date of Service April 28, 2024 Assessment & Plan (1) Alcohol withdrawal: Plan: CICT protocol Ativan as needed IV fluids Care management consult Thiamine, folate and multivitamin Banana bag given (2) Alcohol dependence: Plan: Care management consult (3) Electrolyte abnormality: Plan: Replace potassium Trend labs Follow electrolytes (4) Hypokalemia: Plan: Replace potassium as above (5) Alcoholic cirrhosis: Plan: Follow-up with GI as an outpatient (6) Acute hypokalemia: (7) Transaminitis: Plan: Trend labs (8) Esophageal varices: Plan: Continue pantoprazole Follow H&H Plan Lovenox for DVT prophylaxis Patient is a full code History of Present Illness Chief Complaint: ETOH withdrawal Primary Care Provider: DO Darrel Keene is a 48-year-old gentleman with a significant past medical history of alcohol abuse, alcoholic cirrhosis, choledocholithiasis status post ERCP 04/23 (he is not a candidate for surgery on the gallbladder due to cirrhosis and liver disease) and esophageal varices. He presents the emergency department with alcohol withdrawal symptoms. Patient states his last drink was several hours prior to arrival to the ER but he states that he feels that he is going through withdrawal. He he said he drank a half of 1/5 of tequila. He has been sober for a month. He just started a new job and has some stress with that. In the ED he was noted to be mildly tachycardic and mildly tremulous on initial evalua tion. He was given 1 dose of IV Ativan and feels much better now. He does not have any tremulousness. And his tachycardia has resolved. Blood pressure remains slightly up. He has a history of withdrawal seizure but not for about the past 5 or 6 years. Labs are reviewed. He is not thrombocytopenic but has been in the past. He does follow with the GI group. His white blood count and hemoglobin are stable and within normal limits on today's testing. He has hypokalemia. He is getting IV potassium prior ER provider's order. Magnesium level is normal. He has hyperglycemia. Does not have a history of diabetes. With the exception of a mild elevation in his AST of 44 his LFTs are unremarkable. Patient was referred for admission. Allergies Allergy/AdvReac Type Severity Reaction Status Date / Time aspirin AdvReac Intermediate PT STATES Verified 02/29/24 22:12 "HAPPENED A CHILD--BLOODY NOSE" Home Medications Medication Instructions Recorded Confirmed Type nadolol 20 mg tablet 20 mg PO HS 06/10/18 04/28/24 History ursodiol 300 mg capsule 300 mg PO BID 06/10/18 04/28/24 History furosemide 20 mg tablet 20 mg PO QAM 11/14/22 04/28/24 History spironolactone 25 mg tablet 25 mg PO QAM 11/14/22 04/28/24 History folic acid 1 mg tablet 1 mg PO QAM #30 tabs 06/06/23 04/28/24 Rx pantoprazole 40 mg tablet,delayed 40 mg PO QAM 08/01/23 04/28/24 History release cholecalciferol (vitamin D3) 125 125 mcg PO QAM 02/29/24 04/28/24 History mcg (5,000 unit) tablet (Vitamin D3) magnesium chloride 64 mg 64 mg PO AMHS 02/29/24 04/28/24 History (magnesium chloride) tablet,delayed release (Mag 64) gabapentin 300 mg capsule 600 mg (2 x 300 mg) PO TID 30 days 03/05/24 04/28/24 Rx #180 caps buspirone 5 mg tablet 5 mg PO AMHS 04/28/24 04/28/24 History calcium carbonate 600 mg PO DAILY 04/28/24 04/28/24 History ferrous sulfate 325 mg (65 mg 325 mg PO QAM 04/28/24 04/28/24 History iron) tablet potassium chloride 20 mEq 20 meq PO AMPM 04/28/24 04/28/24 History tablet,extended release(part/cryst) Past Med/Surg History Problem List (Updated 04/15/24 @ 00:07 by Olive Baeza) Alcohol dependence (Acute) Electrolyte abnormality (Acute) Hypokalemia (Acute) Alcohol abuse (Acute) Prolonged QT interval (Acute) Alcoholic cirrhosis Acute hypokalemia (Acute) Nausea & vomiting (Acute) Thrombocytopenia (Acute) Transaminitis (Acute) Hypomagnesemia (Acute) Alcoholic hepatitis (Acute) Esophageal varices Transaminitis (Acute) Medical History Alcohol withdrawal Abrasion of finger Fall Alcohol intoxication Alcohol withdrawal Alcohol withdrawal Cholecystitis Choledocholithiasis Depression Anxiety UGIB (upper gastrointestinal bleed) Thrombocytopenia Ascites Alcohol abuse Alcoholic cirrhosis of liver Esophageal varices Portal hypertension History of macrocytic anemia History of alcohol abuse Surgical History History of esophagogastroduodenoscopy (EGD) Including procedures for esophageal varices banding History of tonsillectomy Family History Mother Diabetes Father Prostate cancer Other No family history of adverse response to anesthesia Social History Smoking Status: Never smoker Tobacco Type: Smokeless Tobacco (Dip or Chew) Second Hand Exposure: No; Do You Dip or Chew Tobacco: Yes; Hx Alcohol Use: Yes Alcohol type: hard liquor Hx Substance Use: No Preferred Language: Uzbek Communication Ability: Effective Fisheries Director Required: No Beliefs That Will Affect Care: None Current Living Situation: Alone Current Living Situation Comment: lives with parents Feels Safe at Home: Yes Assistive Devices: None Review of Systems Review of Systems: Constitutional- no fever; no weight loss Eyes- no acute visual changes ENT- no sinus drainage; no pharyngitis Pulmonary- no cough, no wheezing, no shortness of breath Cardiac- no chest pain, no palpitations, no orthopnea, no dependent edema, mild ST GI- no nausea, no vomiting, no diarrhea, no melena, no hematochezia - no dysuria, no hematuria Musculoskeletal- no arthralgias, no myalgias Derm- no rashes, no new skin lesions, no changing skin lesions Hematologic- no unusual bruising, no unusual bleeding Lymphatics- no adenopathy Endocrine- no polyuria or polydipsia; no heat or cold intolerance Neuro- no headaches, no focal neurologic symptoms, mild tremor Psych- no anxiety, no depression Physical Exam Physical Exam: General- adult, Seen at bedside in ED. Alert, No tremor at present. Head- atraumatic Eyes- PERRL, EOMI, anicteric ENT- oropharynx clear Neck- supple, no JVD, no adenopathy, no thyromegaly; carotids +2/2, no bruits a ppreciated Lungs- clear to auscultation and percussion Heart- regular rhythm; no murmur, no gallop, no rub appreciated Abdomen- normal bowel sounds, soft, nontender, no masses or hepatosplenomegaly Extremities- no pretibial edema, no calf tenderness; peripheral pulses intact Neuro- alert, oriented x 3; PERRL, EOMI; no facial palsy; no dysarthria; motor 5/5 bilaterally; no cogwheel rigidity; patellar DTRs +2/2; toes downgoing bilaterally; finger to nose intact bilaterally. No asterixis Skin- warm & dry Results & Data Results & Data Vital Signs (Past 12 Hours) Vital Signs Temp Pulse Pulse Resp BP BP Pulse Ox 04/28/24 19:07 105 H 19 95 04/28/24 19:00 101 H 21 159/99 H 95 04/28/24 18:40 116 H 04/28/24 18:32 36.9 C 113 H 17 167/106 H 94 O2 Del Method 04/28/24 19:07 Room Air 04/28/24 19:00 Room Air 04/28/24 18:40 04/28/24 18:32 Room Air Diagnostic Findings Laboratory Results WBC 7.01 K/ul (4.8-10.8) 04/28/24 18:52 RBC 5.10 M/uL (4.70-6.10) 04/28/24 18:52 Hgb 16.0 g/dl (14.0-18.0) 04/28/24 18:52 Hct 46.0 % (42.0-52.0) 04/28/24 18:52 MCV 90.2 fL (80.0-100.0) 04/28/24 18:52 MCH 31.4 pg (25.0-34.0) 04/28/24 18:52 MCHC 34.8 g/dL (32.0-36.0) 04/28/24 18:52 RDW Std Deviation 47.8 fL (36.4-46.3) H 04/28/24 18:52 RDW Coeff of Hang 14.3 % (11.5-14.5) 04/28/24 18:52 Plt Count 155 K/uL (130-400) 04/28/24 18:52 MPV 9.8 fL (9.4-12.4) 04/28/24 18:52 Immature Gran % (Auto) 0.1 % 04/28/24 18:52 Neut % (Auto) 60.8 % 04/28/24 18:52 Lymph % (Auto) 24.7 % 04/28/24 18:52 Faulk % (Auto) 12.1 % 04/28/24 18:52 Eos % (Auto) 1.3 % 04/28/24 18:52 Baso % (Auto) 1.0 % 04/28/24 18:52 Neut # (Auto) 4.26 K/uL (1.40-6.50) 04/28/24 18:52 Lymph # (Auto) 1.73 K/uL (1.20-3.40) 04/28/24 18:52 Faulk # (Auto) 0.85 K/uL (0.11-0.59) H 04/28/24 18:52 Eos # (Auto) 0.09 K/uL (0.00-0.50) 04/28/24 18:52 Baso # (Auto) 0.07 K/uL (0.00-0.20) 04/28/24 18:52 Immature Gran # (Auto) 0.01 K/uL (0.01-0.20) 04/28/24 18:52 Sodium 141 mmol/L (136-145) 04/28/24 18:52 Potassium 3.0 mmol/L (3.5-5.1) L 04/28/24 18:52 Chloride 104 mmol/L (98-107) 04/28/24 18:52 Carbon Dioxide 23 mmol/L (21-32) 04/28/24 18:52 Anion Gap 14 (3-11) H 04/28/24 18:52 BUN 5 mg/dl (6-23) L 04/28/24 18:52 Creatinine 0.84 mg/dl (0.6-1.4) 04/28/24 18:52 Est Cr Clr Drug Dosing 101.8 ml/min 04/28/24 18:52 eGFR 106.24 04/28/24 18:52 BUN/Creatinine Ratio 6.0 (10-20) L 04/28/24 18:52 Glucose 262 mg/dl (70-99(Fasting)) H 04/28/24 18:52 Calcium 8.5 mg/dl (8.6-10.3) L 04/28/24 18:52 Magnesium 1.7 mg/dl (1.7-2.4) 04/28/24 18:52 Total Bilirubin 0.8 mg/dl (0.2-1.0) 04/28/24 18:52 AST 44 U/L (13-39) H 04/28/24 18:52 ALT 40 U/L (7-52) 04/28/24 18:52 Alkaline Phosphatase 90 U/L (34-104) 04/28/24 18:52 Total Protein 8.3 gm/dl (6.0-8.3) 04/28/24 18:52 Albumin 3.9 gm/dl (3.4-5.0) 04/28/24 18:52 Globulin 4.4 gm/dl (2.5-4.0) H 04/28/24 18:52 Albumin/Globulin Ratio 0.9 (0.9-2) 04/28/24 18:52 Ethyl Alcohol mg/dL 301.1 mg/dl (<10.0) H 04/28/24 18:52 Medications Administered Current Inpatient Medications Acetaminophen (Acetaminophen 325 Mg Tab) 650 mg PO Q4H PRN PRN Reason: Pain or Fever Stop: 05/28/24 20:59 Al Hydrox/Mg Hydrox/Simethicone (Aluminum/Magnesium Susp 30 Ml Udc) 15 ml PO Q4H PRN PRN Reason: Dyspepsia Stop: 05/28/24 20:59 Enoxaparin Sodium (Enoxaparin Inj 40 Mg/0.4 Ml Syr) 40 mg SQ Q24H [facility] Stop: 05/28/24 20:59 Potassium Chloride 40 meq/ (Sodium Chloride) 1,020 mls @ 150 mls/hr IV .Q6H48M [facility] Stop: 04/29/24 19:44 Last Admin: 04/28/24 20:04 Dose: 150 mls/hr Lorazepam (Lorazepam 1 Mg Tab) 1 mg PO UD PRN; Protocol PRN Reason: EtOH Withdrawal AWSS Score 6,7 Stop: 05/28/24 21:04 Lorazepam (Lorazepam 1 Mg Tab) 3 mg PO ONCE PRN; Protocol PRN Reason: EtOH Withdrawal AWSS Score 10 & above Lorazepam (Lorazepam 1 Mg Tab) 2 mg PO UD PRN; Protocol PRN Reason: EtOH Withdrawal AWSS Score 8,9 Stop: 05/28/24 21:04 Multivitamins (Multivitamin Tab) 1 tab PO QAM [facility] Stop: 05/29/24 08:59 Polyethylene Glycol (Polyethylene (Miralax) 17 Gm Pack) 17 gm PO DAILY PRN PRN Reason: Constipation Stop: 05/28/24 20:59 Zolpidem Tartrate (Zolpidem Tartrate 5 Mg Tab) 5 mg PO HS PRN PRN Reason: Sleep Stop: 05/28/24 20:59 Code Status & VTE Plan Code Status Full code (2) Alcohol dependence Substance use status: uncomplicated Qualified Code(s): F10.20 - Alcohol dependence, uncomplicated (5) Alcoholic cirrhosis Ascites presence: unspecified Qualified Code(s): K70.30 - Alcoholic cirrhosis of liver without ascites
[2024-04-28] MEDS ORDERED: ALUMINUM/MAGNESIUM SUSP 30 ML UDC PO PRN (21:00)
[2024-04-28] MEDS ORDERED: ZOLPIDEM TARTRATE 5 MG TAB PO PRN (21:00)
[2024-04-28] MEDS ORDERED: POLYETHYLENE (MIRALAX) 17 GM PACK PO PRN (21:00)
[2024-04-28] MEDS ORDERED: LORazepam 1 MG TAB PO PRN (21:05)
[2024-04-28] MEDS ORDERED: Ativan PO Alcohol Withdrawal--Active Protocol PO PRN (21:05)
[2024-04-28] MEDS ORDERED: SODIUM CHLORIDE 0.9% 1,000 ML IV SCH (22:13)
[2024-04-28] MEDS: MAGNESIUM CHLORIDE W/CALCIUM 64MG DELAYED REL TAB PO SCH (23:06)
[2024-04-28] MEDS: GABAPENTIN 300 MG CAP PO SCH (23:06)
[2024-04-28] MEDS: ursodioL 300 MG CAP PO SCH (23:07)
[2024-04-28] MEDS: ENOXAPARIN INJ 40 MG/0.4 ML SYR SQ SCH (23:07)
[2024-04-28] MEDS: busPIRone 5 MG TAB PO SCH (23:07)
[2024-04-28] MEDS: nadoloL 40 MG TAB PO SCH (23:08)
[2024-04-28] MEDS: POTASSIUM CHLORIDE CRTAB 20 MEQ TABCR PO SCH (23:10)
[2024-04-29] MEDS: LORazepam 1 MG TAB PO PRN ×2 (01:15→11:36)
[2024-04-29] MEDS: MULTIVITAMIN TAB PO SCH (08:01)
[2024-04-29] MEDS: FOLIC ACID 1 MG TAB PO SCH (08:01)
[2024-04-29] MEDS: FERROUS SULFATE 325 MG TAB PO SCH (08:01)
[2024-04-29] MEDS: CALCIUM CARBONATE 1250MG TAB PO SCH (08:01)
[2024-04-29] MEDS: FUROSEMIDE 20 MG TAB PO SCH (08:01)
[2024-04-29] MEDS: PANTOprazole 40 MG TAB PO SCH ×2 (08:01→21:51)
[2024-04-29] MEDS: CHOLECALCIFEROL 125 MCG (5,000 UNITS) TAB PO SCH (08:01)
[2024-04-29] MEDS: SPIRONOLACTONE 25 MG TAB PO SCH (08:02)
[2024-04-29 08:56] LABS: Basophils # (auto) 0.06 K/uL (0.00-0.20); Basophils % (auto) 1.2 %; Eosinophils # (auto) 0.29 K/uL (0.00-0.50); Eosinophils % (auto) 5.7 %; Hematocrit (blood only) 42.7 % (42.0-52.0); Hemoglobin 14.4 g/dl (14.0-18.0); Lymphocytes # (auto) 1.62 K/uL (1.20-3.40); Lymphocytes % (auto) 31.8 %; Mean Corpuscular Hemoglobin 31.8 pg (25.0-34.0); Mean Corpuscular Hgb Conc 33.7 g/dL (32.0-36.0); Mean Corpuscular Volume 94.3 fL (80.0-100.0); Mean Platelet Volume 10.1 fL (9.4-12.4); Monocytes # (auto) 0.75 K/uL (0.11-0.59); Monocytes % (auto) 14.7 %; Neutrophils # (auto) 2.38 K/uL (1.40-6.50); Neutrophils % (auto) 46.6 %; Platelet Count 143 K/uL (130-400); RDW Coefficient of Variation 14.2 % (11.5-14.5); RDW Standard Deviation 49.2 fL (36.4-46.3); Red Blood Count 4.53 M/uL (4.70-6.10)
[2024-04-29 09:10] LABS: Alanine Aminotransferase 30 U/L (7-52); Albumin Globulin Ratio 0.9 (0.9-2); Albumin Level 3.4 gm/dl (3.4-5.0); Alkaline Phosphatase 70 U/L (34-104); Anion Gap 3 (3-11); Aspartate Aminotransferase 40 U/L (13-39); BUN Creatinine Ratio 6.8 (10-20); Bilirubin,Total 1.2 mg/dl (0.2-1.0); Blood Urea Nitrogen 5 mg/dl (6-23); Calcium 8.3 mg/dl (8.6-10.3); Carbon Dioxide 29 mmol/L (21-32); Chloride 110 mmol/L (98-107); Creatinine Clr Calc Pharmacy 117.1 ml/min; Globulin 3.6 gm/dl (2.5-4.0); Glucose 97 mg/dl (70-99(Fasting)); Potassium 4.7 mmol/L (3.5-5.1); Sodium 142 mmol/L (136-145)
[2024-04-29 09:18] LABS: Estimated Average Glucose 103 mg/dl; Hemoglobin A1C 5.2 % (4.5-5.6)
--- NOTE | 2024-04-29 09:51 | Electrocardiogram Report ---
Test Reason : Blood Pressure : */* mmHG Vent. Rate : 71 BPM Atrial Rate : 71 BPM P-R Int : 140 ms QRS Dur : 100 ms QT Int : 428 ms P-R-T Axes : 63 77 79 degrees QTcB Int : 465 ms Normal sinus rhythm Cannot rule out Inferior infarct , age undetermined Abnormal ECG When compared with ECG of 31-Mar-2024 04:15, No significant change was found Confirmed by Michael Norman ([id number]) on 04/29/2024 9:51:16 AM Referred By: REFERRED SELF Confirmed By: Michael Norman
[2024-04-29] MEDS ORDERED: GABAPENTIN 1200MG ALCOHOL WITHDRAWAL LOAD PO ONE (10:58)
[2024-04-29] MEDS: GABAPENTIN 600 MG TAB PO ONE (11:34)
--- NOTE | 2024-04-29 13:15 | Hospitalist Progress Note ---
Date of Service April 29, 2024 Assessment & Plan (1) Alcohol withdrawal: Plan: -patient has struggled with sobriety -has hx of alcohol withdrawal 9 years ago Plan: -[facility] protocol -start gabapentin taper given high risk withdrawal -Ativan as needed -IV fluids -Care management consult -Thiamine, folate and multivitamin (2) Alcohol dependence: Plan: -care management consult -strongly recommend rehab at this time (3) Electrolyte abnormality: Plan: -Replace potassium -Trend labs -Follow electrolytes (4) Hypokalemia: Plan: -Replace potassium as above (5) Alcoholic cirrhosis: Plan: -Follow-up with GI as an outpatient (6) Transaminitis: Plan: Trend labs (7) Esophageal varices: Plan: -Continue pantoprazole -Follow H&H Plan Feeding/fluids: regular Analgesia: tylenol Sedation: na Thromboprophylaxis: lovenox Head up position: na Ulcer prophylaxis: PPI bid given varices Glycemic control: na Spontaneous breathing trial: na Bowel care: senna Indwelling catheter remov naal: Deescalation of antibiotics: na I spent a total of 55 minutes in direct patient care, including [id number] time with the patient and/or family, reviewing medical records, ordering and reviewing diagnostic tests, and coordinating care with other healthcare providers. This time includes: history taking, physical examination, medical decision making, counseling, ECG interpretation, imaging interpretation, lab int erpretation, orders, and education, excluding time spent in the performance of separately billed services. Admission and Anticipated Discharge Date Admission Date: April 28, 2024 Subjective 48-year-old male with past medical history of alcohol abuse, hepatic steatosis, esophageal varices who presented for acute intoxication episode. In the ED noted to have elevated alcohol level and admitted to medicine for monitoring for withdrawal symptoms. patient seen and examined at bedside. Patient is doing okay today. He states he had 1 withdrawal seizure 9 years ago. He states he started drinking again recently and has been drinking a lot. He is very interested in getting sober. He would like help with the withdrawal symptoms as well. Review of Systems Review of Systems: Constitutional- no fever; no weight loss Eyes- no acute visual changes ENT- no sinus drainage; no pharyngitis Pulmonary- no cough, no wheezing, no shortness of breath Cardiac- no chest pain, no palpitations, no orthopnea, no dependent edema GI- no nausea, no vomiting, no diarrhea, no melena, no hematochezia - no dysuria, no hematuria Musculoskeletal- no arthralgias, no myalgias Derm- no rashes, no new skin lesions, no changing skin lesions Hematologic- no unusual bruising, no unusual bleeding Lymphatics- no adenopathy Endocrine- no polyuria or polydipsia; no heat or cold intolerance Neuro- no headaches, no focal neurologic symptoms, mild tremor Psych- sad Physical Exam Physical Exam: Gen: A&O 3 NAD HEENT: NCAT, EOMI, not icteric. External ears normal. No rhinorrhea. Moist mucous membranes. Neck: Supple, full range of motion, no observable masses, No meningeal sign. Lungs: No Respiratory distress. CV: RRR, no edema. Abdomen: Soft, nondistended, No rebound tenderness. MSK: No joint swelling, no redness. tremor noted Skin: No rashes, petechiae, lesions. Normal color per patient. Neuro: Normal Gait, Grossly intact. Psych: flat affect Results & Data Results & Data Vital Signs (Past 12 Hours) Vital Signs Temp Pulse Pulse Resp BP Pulse Ox O2 Del Method 04/29/24 12:10 36.7 C 49 L 17 136/81 96 Room Air 04/29/24 10:25 60 04/29/24 08:00 60 04/29/24 07:50 36.7 C 58 L 19 153/91 H 96 Room Air Laboratory Results - personally interpreted, low potassium likely secondary to alcohol use, elevated alcohol level upon admission Medications Administered Buspirone HCl (Buspirone 5 Mg Tab) 5 mg PO AMHS [facility] Stop: 05/28/24 22:29 Last Admin: 04/29/24 08:02 Dose: 5 mg Documented By: Admin: 04/28/24 23:07 Dose: 5 mg Documented By: OLIVIA Calcium Carbonate (Calcium Carbonate 1250mg Tab) 1 tab PO DAILY [facility] Stop: 05/29/24 08:59 Last Admin: 04/29/24 08:01 Dose: 1 tab Documented By: TATI Enoxaparin Sodium (Enoxaparin Inj 40 Mg/0.4 Ml Syr) 40 mg SQ Q24H [facility] Stop: 05/28/24 20:59 Last Admin: 04/28/24 23:07 Dose: 40 mg Documented By: OLIVIA Ferrous Sulfate (Ferrous Sulfate 325 Mg Tab) 325 mg PO [facility] Stop: 05/29/24 08:59 Last Admin: 04/29/24 08:01 Dose: 325 mg Documented By: TATI Folic Acid (Folic Acid 1 Mg Tab) 1 mg PO [facility] Stop: 05/29/24 08:59 Last Admin: 04/29/24 08:01 Dose: 1 mg Documented By: TATI Furosemide (Furosemide 20 Mg Tab) 20 mg PO [facility] Stop: 05/29/24 08:59 Last Admin: 04/29/24 08:01 Dose: 20 mg Documented By: TATI Potassium Chloride 40 meq/ (Sodium Chloride) 1,020 mls @ 150 mls/hr IV .Q6H48M [facility] Stop: 04/29/24 19:44 Last Admin: 04/29/24 08:51 Dose: 150 mls/hr Documented By: Infusion: 04/29/24 08:51 Dose: Infused Documented By: Admin: 04/29/24 02:51 Dose: 150 mls/hr Documented By: Infusion: 04/29/24 02:51 Dose: Infused Documented By: Admin: 04/28/24 20:04 Dose: 150 mls/hr Documented By: LESTER Lorazepam (Lorazepam 1 Mg Tab) 1 mg PO UD PRN; Protocol PRN Reason: EtOH Withdrawal AWSS Score 6,7 Stop: 05/28/24 21:04 Last Admin: 04/29/24 08:00 Dose: 1 mg Documented By: Admin: 04/29/24 01:15 Dose: 1 mg Documented By: OLIVIA Lorazepam (Lorazepam 1 Mg Tab) 2 mg PO UD PRN; Protocol PRN Reason: EtOH Withdrawal AWSS Score 8,9 Stop: 05/28/24 21:04 Last Admin: 04/29/24 11:36 Dose: 2 mg Documented By: TATI Magnesium Chloride (Magnesium Chloride W/Calcium 64mg Delayed Rel Tab) 64 mg PO [facility] Stop: 05/28/24 22:29 Last Admin: 04/29/24 08:02 Dose: 64 mg Documented By: Admin: 04/28/24 23:06 Dose: 64 mg Documented By: OLIVIA Multivitamins (Multivitamin Tab) 1 tab PO [facility] Stop: 05/29/24 08:59 Last Admin: 04/29/24 08:01 Dose: 1 tab Documented By: TATI Nadolol (Nadolol 40 Mg Tab) 20 mg PO HS [facility] Stop: 05/28/24 22:29 Last Admin: 04/28/24 23:08 Dose: 20 mg Documented By: OLIVIA Pantoprazole Sodium (Pantoprazole 40 Mg Tab) 40 mg PO QAM [facility] Stop: 05/29/24 08:59 Last Admin: 04/29/24 08:01 Dose: 40 mg Documented By: TATI Potassium Chloride (Potassium Chloride Crtab 20 Meq Tabcr) 20 meq PO BID [facility] Stop: 05/28/24 22:29 Last Admin: 04/29/24 08:00 Dose: 20 meq Documented By: Admin: 04/28/24 23:10 Dose: 20 meq Documented By: OLIVIA Spironolactone (Spironolactone 25 Mg Tab) [facility] Stop[facility] 05/29/24 08:59 Last Admin: 04/29/24 08:02 Dose: 25 mg Documented By: TATI Ursodiol (Ursodiol 300 Mg Cap) 300 mg PO BID [facility] Stop: 05/28/24 22:44 Last Admin: 04/29/24 08:02 Dose: 300 mg Documented By: Admin: 04/28/24 23:07 Dose: 300 mg Documented By: OLIVIA Vitamin D (Cholecalciferol 125 Mcg (5,000 Units) Tab) 125 mcg PO QAM [facility] Stop: 05/29/24 08:59 Last Admin: 04/29/24 08:01 Dose: 125 mcg Documented By: TATI (1) Alcohol withdrawal Complication of substance-induced condition: uncomplicated Qualified Code(s): F10.930 - Alcohol use, unspecified with withdrawal, uncomplicated (2) Alcohol dependence Substance use status: uncomplicated Qualified Code(s): F10.20 - Alcohol dependence, uncomplicated (5) Alcoholic cirrhosis Ascites presence: unspecified Qualified Code(s): K70.30 - Alcoholic cirrhosis of liver without ascites (7) Esophageal varices Esophageal varices type: secondary Esophageal varices bleeding: without bleeding Qualified Code(s): I85.10 - Secondary esophageal varices without bleeding
[2024-04-29] MEDS: GABAPENTIN 600 MG TAB PO SCH (17:12)
[2024-04-29 19:18] LABS: Amphetamines+Metham, Urine Neg (Neg); Barbiturates, Urine Neg (Neg); Benzodiazepine, Urine Neg (Neg); Cocaine, Urine Neg (Neg); Fentanyl, Urine Neg (Neg); MDMA (Ecstacy), Urine Neg (Neg); Marijuana, Urine Neg (Neg); Methadone, Urine Neg (Neg); Opiate, Urine Neg (Neg); Phencyclidine, Urine Neg (Neg)
[2024-04-30] MEDS: ACETAMINOPHEN 325 MG TAB PO PRN (00:33)
[2024-04-30] MEDS: GABAPENTIN 600 MG TAB PO SCH (05:52)
[2024-04-30 06:33] LABS: Hematocrit (blood only) 42.7 % (42.0-52.0); Hemoglobin 14.5 g/dl (14.0-18.0); Mean Corpuscular Hemoglobin 31.5 pg (25.0-34.0); Mean Corpuscular Volume 92.8 fL (80.0-100.0); Mean Platelet Volume 10.4 fL (9.4-12.4); Platelet Count 111 K/uL (130-400); RDW Coefficient of Variation 13.7 % (11.5-14.5); White Blood Count 4.79 K/ul (4.8-10.8)
[2024-04-30 06:51] LABS: Albumin Globulin Ratio 0.9 (0.9-2); Albumin Level 3.1 gm/dl (3.4-5.0); BUN Creatinine Ratio 14.3 (10-20); Bilirubin,Total 0.9 mg/dl (0.2-1.0); Calcium 9.1 mg/dl (8.6-10.3); Globulin 3.6 gm/dl (2.5-4.0); Magnesium 1.5 mg/dl (1.7-2.4); Phosphorus 3.7 mg/dl (2.5-4.9); Potassium 3.9 mmol/L (3.5-5.1); Total Protein 6.7 gm/dl (6.0-8.3)
[2024-04-30 07:53] VITALS: RESP 19; O2SAT 96
[2024-04-30 11:27] VITALS: BP 132/83; TEMP 97.5
[2024-04-30] MEDS: ONDANSETRON INJ 2 MG/ML 2 ML VIAL IV PRN (12:22)
[2024-04-30 13:01] VITALS: PULSE 105
--- NOTE | 2024-04-30 18:16 | Discharge Summary ---
Discharge Summary Date of Service April 30, 2024 Principal Dx & Hospital Course #1 = Principal Diagnosis (1) Alcohol withdrawal: -patient has struggled with sobriety -has hx of alcohol withdrawal 9 years ago -patient tolerating full meals, feels ready to go home, rejected further rehab resources as he has some at home Plan: -[facility] protocol -discharge home with ativan prn for few days given alcohol withdrawal symptoms, which are improving -Care management consult -Thiamine, folate and multivitamin (2) Alcohol dependence: -care management consult -strongly recommend rehab at this time, patient states he does not need more re sources (3) Electrolyte abnormality: -Replace potassium (4) Hypokalemia: -Replace potassium (5) Alcoholic cirrhosis: -Follow-up with GI as an outpatient (6) Transaminitis: (7) Esophageal varices: -Continue pantoprazole -Follow H&H Notes For Next Care Provider 48-year-old male with past medical history of severe alcohol use disorder and cirrhosis presenting for an acute and alcohol intoxication and subsequent withdrawal. In the ED, noted to have positive alcohol level and admitted to medicine for monitoring. Upon administering the medicine, gabapentin taper and Ativan was started for alcohol withdrawal. Patient improved significantly over the next 24 to 36 hours. Patient rejected further rehab options as he states he has resources at home. Patient feels medically stable for discharge home, sent home with medications for any remaining withdrawal symptoms Medication Changes From Visit -brief ativan course prn Admission HPI Per Admitting Provider Darrle Dugan is a 48-year-old gentleman with a significant past medical history of alcohol abuse, alcoholic cirrhosis, choledocholithiasis status post ERCP 04/23 (he is not a candidate for surgery on the gallbladder due to cirrhosis and liver disease) and esophageal varices. He presents the emergency department with alcohol withdrawal symptoms. Patient states his last drink was several hours prior to arrival to the ER but he states that he feels that he is going through withdrawal. He he said he drank a half of 1/5 of tequila. He has been sober for a month. He just started a new job and has some stress with that. In the ED he was noted to be mildly tachycardic and mildly tremulous on initial evaluation. He was given 1 dose of IV Ativan and feels much better now. He does not have any tremulousness. And his tachycardia has resolved. Blood pressure remains slightly up. He has a history of withdrawal seizure but not for about the past 5 or 6 years. Labs are reviewed. He is not thrombocytopenic but has been in the past. He does follow with the GI group. His white blood count and hemoglobin are stable and within normal limits on today's testing. He has hypokalemia. He is getting IV potassium prior ER provider's order. Magnesium level is normal. He has hyperglycemia. Does not have a history of diabetes. With the exception of a mild elevation in his AST of 44 his LFTs are unremarkable. Patient was referred for admission. Discharge Exam Gen: A&O 3 NAD HEENT: NCAT, EOMI, not icteric. External ears normal. No rhinorrhea. Moist mucous membranes. Neck: Supple, full range of motion, no observable masses, No meningeal sign. Lungs: No Respiratory distress. CV: RRR, no edema. Abdomen: Soft, nondistended, No rebound tenderness. MSK: No joint swelling, no redness. tremor noted much improved Skin: No rashes, petechiae, lesions. Normal color per patient. Neuro: Normal Gait, Grossly intact. Psych: flat affect Updated Medication List Medication Instructions Recorded Confirmed Type nadolol 20 mg tablet 20 mg PO HS 06/10/18 04/28/24 History ursodiol 300 mg capsule 300 mg PO BID 06/10/18 04/28/24 History furosemide 20 mg tablet 20 mg PO QAM 11/14/22 04/28/24 History spironolactone 25 mg tablet 25 mg PO QAM 11/14/22 04/28/24 History folic acid 1 mg tablet 1 mg PO QAM #30 tabs 06/06/23 04/28/24 Rx pantoprazole 40 mg tablet,delayed 40 mg PO QAM 08/01/23 04/28/24 History release cholecalciferol (vitamin D3) 125 125 mcg PO QAM 02/29/24 04/28/24 History mcg (5,000 unit) tablet (Vitamin D3) magnesium chloride 64 mg 64 mg PO AMHS 02/29/24 04/28/24 History (magnesium chloride) tablet,delayed release (Mag 64) gabapentin 300 mg capsule 600 mg (2 x 300 mg) PO TID 30 days 03/05/24 04/28/24 Rx #180 caps buspirone 5 mg tablet 5 mg PO AMHS 04/28/24 04/28/24 History calcium carbonate 600 mg PO DAILY 04/28/24 04/28/24 History ferrous sulfate 325 mg (65 mg 325 mg PO QAM 04/28/24 04/28/24 History iron) tablet potassium chloride 20 mEq 20 meq PO AMPM 04/28/24 04/28/24 History tablet,extended release(part/cryst) lorazepam 1 mg tablet 0.5 mg (1/2 x 1 mg) PO UD PRN 04/30/24 Rx alcohol withdrawal 3 days #3 tabs ondansetron 4 mg disintegrating 4 mg PO DAILY PRN nausea and 04/30/24 Rx tablet vomiting 30 days #30 tabs Hospital Stay Data Consultations 04/28/24 20:25 ED Decision to Admit Stat Pending Results Patient Have Any Pending Studies at Discharge: No Discharge Instructions Given to Patient (Per Discharging Provider) 1. Please continue sobriety resources that are at your disposal at home, continued alcohol use will cause significant damage and shortened lifespan. Total Time Total Time Spent Total Time Spent (In Minutes): I spent a total of 35 minutes in direct patient care, including [id number] time with the patient and/or family, reviewing medical records, ordering and reviewing diagnostic tests, and coordinating care with other healthcare providers. This time includes: history taking, physical examination, medical decision making, counseling, ECG interpretation, imaging interpretation, lab interpretation, orders, and education, excluding time spent in the performance of separately billed services.
[2024-05-01] MEDS ORDERED: GABAPENTIN 600 MG TAB PO SCH (12:00)
[2024-05-03] MEDS ORDERED: GABAPENTIN 600 MG TAB PO SCH
== END 2024-04-30 14:00 | disposition home or self-care (01) | DRG 897 ==
LOC: ED 18:21 → SUATTDRO 21:01 → 4W 21:01

== ENCOUNTER 2024-05-03 00:57 | Inpatient (IN) ==
[2024-05-03] MEDS: ONDANSETRON INJ 2 MG/ML 2 ML VIAL IV STA (01:51)
[2024-05-03] MEDS: diazePAM 5 MG/ML 10ML VIAL IV STA (01:52)
[2024-05-03 02:02] LABS: Basophils % (auto) 1.4 %; Eosinophils # (auto) 0.35 K/uL (0.00-0.50); Hematocrit (blood only) 51.1 % (42.0-52.0); Hemoglobin 17.3 g/dl (14.0-18.0); Immature Granulocytes # (auto) 0.01 K/uL (0.01-0.20); Immature Granulocytes % (auto) 0.1 %; Lymphocytes # (auto) 2.46 K/uL (1.20-3.40); Lymphocytes % (auto) 35.2 %; Mean Corpuscular Hemoglobin 31.2 pg (25.0-34.0); Mean Corpuscular Hgb Conc 33.9 g/dL (32.0-36.0); Mean Corpuscular Volume 92.1 fL (80.0-100.0); Monocytes # (auto) 0.59 K/uL (0.11-0.59); Monocytes % (auto) 8.4 %; Neutrophils # (auto) 3.48 K/uL (1.40-6.50); Neutrophils % (auto) 49.9 %; Platelet Count 160 K/uL (130-400); RDW Coefficient of Variation 13.9 % (11.5-14.5); RDW Standard Deviation 47.1 fL (36.4-46.3); Red Blood Count 5.55 M/uL (4.70-6.10); White Blood Count 6.99 K/ul (4.8-10.8)
[2024-05-03 02:05] LABS: Albumin Globulin Ratio 0.9 (0.9-2); Bilirubin,Total 0.7 mg/dl (0.2-1.0); Calcium 8.2 mg/dl (8.6-10.3); Creatinine Clr Calc Pharmacy 117.1 ml/min; Globulin 4.7 gm/dl (2.5-4.0); Potassium 3.7 mmol/L (3.5-5.1); Total Protein 8.7 gm/dl (6.0-8.3)
--- NOTE | 2024-05-03 02:12 | Emergency Department Note ---
Impression & Plan Alcoholic hepatitis, Alcohol dependence, Alcohol withdrawal syndrome ED Provider Note NAME: ANDREA ADAME AGE: 48 SEX: M : 1975 ARRIVES VIA: Walk-In INFORMANT: Patient, ED PROVIDER(S): Melissa Martinez MD CHIEF COMPLAINT: Alcohol withdrawal HPI: This is a 48-year-old male presenting for alcohol withdrawal. Patient states he drinks but 12 beers at a time. He states that he was recently in the hospital for alcohol withdrawal. He does not member have any days this has been since he was discharged. He states he has been drinking to the left. Drinks 12 beers a day, last drink was at 10 PM. He has nausea. He reports shakes and anxiety. ROS: See above HPI for pertinent positives & negatives. A total of 10 systems reviewed and were otherwise negative. PAST MEDICAL HISTORY: See Below PAST SURGICAL HISTORY: See Below FAMILY HISTORY: See Below SOCIAL HISTORY: See Below HOME MEDICATIONS: See Below ALLERGIES: See Below VITALS: See Below PHYSICAL EXAMINATION: General: Chronically ill-appearing, anxious, tremulous Head: Normocephalic and atraumatic Eyes: Normal inspection, extraocular muscles intact Ear, nose, throat: Normal external exam Neck: Normal range of motion Respiratory: lungs clear to auscultation bilaterally Cardiovascular: Regular rate/rhythm, no murmur GI: soft, nontender, no guarding or rebound Extremities: nontender, moves all extremities Neuro: The patient awake and alert, appropriately conversive, no focal deficits, symmetric faces Skin: Warm, dry, and intact MEDICAL DECISION MAKING: This is a 48-year-old male presented for alcohol withdrawal. Patient is on alcohol use disorder. He was recently here and discharged on 04/30/2024, 3 days ago. Patient still currently tremulous, tachycardic. He appears to be in alcohol withdrawal. Will give Zofran and Valium. Will assess for transaminitis. -Bloodwork is reviewed showing no significant leukocytosis, anemia, electrolyte or creatinine abnormality. Slight transaminitis consistent with alcohol use -Alcohol level elevated to 90 -Patient heart rate is downtrending after Valium administration -Will admit for alcohol withdrawal at this time Differential diagnosis: Hepatitis, liver failure, alcohol withdrawal, intoxication Diagnostics interpreted by me: ECG: None Cardiac Monitoring: An order was placed for continuous cardiac monitoring. The monitor shows a rate of 71 with sinus rhythm. Past Med/Surg History Problem List (Updated 05/03/24 @ 06:56 by Melissa Martinez MD) Alcohol withdrawal (Acute) Alcohol withdrawal syndrome (Acute) Alcohol dependence (Acute) Electrolyte abnormality (Acute) Hypokalemia (Acute) Alcohol abuse (Acute) Prolonged QT interval (Acute) Alcoholic cirrhosis Acute hypokalemia (Acute) Nausea & vomiting (Acute) Thrombocytopenia (Acute) Transaminitis (Acute) Hypomagnesemia (Acute) Alcoholic hepatitis (Acute) Esophageal varices Transaminitis (Acute) Medical History Alcohol withdrawal Abrasion of finger Fall Alcohol intoxication Alcohol withdrawal Alcohol withdrawal Cholecystitis Choledocholithiasis Depression Anxiety UGIB (upper gastrointestinal bleed) Thrombocytopenia Ascites Alcohol abuse Alcoholic cirrhosis of liver Esophageal varices Portal hypertension History of macrocytic anemia History of alcohol abuse Surgical History History of esophagogastroduodenoscopy (EGD) Including procedures for esophageal varices banding History of tonsillectomy Family History Mother Diabetes Father Prostate cancer Other No family history of adverse response to anesthesia Social History Smoking Status: Never smoker Tobacco Type: Smokeless Tobacco (Dip or Chew) Second Hand Exposure: No; Do You Dip or Chew Tobacco: Yes; Hx Alcohol Use: Yes Alcohol type: beer and hard liquor Hx Substance Use: No Preferred Language: Citizen Of [place] Communication Ability: Effective Tax Staff Accountant Required: No Beliefs That Will Affect Care: None Current Living Situation: Significant Other Current Living Situation Comment: lives with parents Other Information That Helps Us Care for You: No Feels Safe at Home: Yes Safety Concerns: Feels Safe At This Time Assistive Devices: None Allergies Allergies Allergy/AdvReac Type Severity Reaction Status Date / Time aspirin AdvReac Intermediate PT STATES Verified 02/29/24 22:12 "HAPPENED A CHILD--BLOODY NOSE" Home Meds Home Medications Medication Instructions Recorded Confirmed nadolol 20 mg tablet 20 mg PO HS 06/10/18 05/03/24 ursodiol 300 mg capsule 300 mg PO BID 06/10/18 05/03/24 furosemide 20 mg tablet 20 mg PO QAM 11/14/22 05/03/24 spironolactone 25 mg tablet 25 mg PO QAM 11/14/22 05/03/24 pantoprazole 40 mg tablet,delayed 40 mg PO QAM 08/01/23 05/03/24 release cholecalciferol (vitamin D3) 125 125 mcg PO QAM 02/29/24 05/03/24 mcg (5,000 unit) tablet (Vitamin D3) magnesium chloride 64 mg 64 mg PO AMHS 02/29/24 05/03/24 (magnesium chloride) tablet,delayed release (Mag 64) buspirone 5 mg tablet 5 mg PO AMHS 04/28/24 05/03/24 calcium carbonate 600 mg PO DAILY 04/28/24 05/03/24 ferrous sulfate 325 mg (65 mg 325 mg PO QAM 04/28/24 05/03/24 iron) tablet potassium chloride 20 mEq 20 meq PO AMPM 04/28/24 05/03/24 tablet,extended release(part/cryst) lorazepam 1 mg tablet 0.5 mg PO UD PRN ALCOHOL WITHDRAWL 05/03/24 05/03/24 Previous Rx's Medication Instructions Recorded folic acid 1 mg tablet 1 mg PO QAM #30 tabs 06/06/23 gabapentin 300 mg capsule 600 mg (2 x 300 mg) PO TID 30 days 03/05/24 #180 caps ondansetron 4 mg disintegrating 4 mg PO DAILY PRN nausea and 04/30/24 tablet vomiting 30 days #30 tabs Results & Data (ED) Vital Signs Vital Signs - 24 hr 05/03/24 01:04 05/03/24 01:22 05/03/24 01:28 Temperature 36.6 C Temperature Source Temporal Artery Scan Pulse Rate 125 H 101 H Pulse Rate [Apical] Pulse Rate from SpO2 Sensor Pulse Rhythm Regular Pulse Rhythm [Apical] Pulse Strength Normal Pulse Strength [Apical] Respiratory Rate 18 Respiratory Effort / Characteristics Non-Labored Spontaneous Respiratory Depth Normal Respiratory Pattern Regular Blood Pressure 145/93 H 138/106 H Blood Pressure [Right Arm] Blood Pressure Mean 110 113 Blood Pressure Mean [Right Arm] Blood Pressure Position Sitting Blood Pressure Position [Right Arm] Pulse Oximetry 94 Oxygen Delivery Method Room Air Oxygen Flow Rate Sepsis Recent Fever Within 48 Hours No Sepsis New/Unexplained Change in Mental Status N/A Sepsis Action Taken by Nursing No Action Required 05/03/24 01:28 05/03/24 01:45 05/03/24 01:48 Temperature Temperature Source Pulse Rate 107 H 98 H Pulse Rate [Apical] Pulse Rate from SpO2 Sensor 98 H 95 H Pulse Rhythm Pulse Rhythm [Apical] Pulse Strength Pulse Strength [Apical] Respiratory Rate 18 13 Respiratory Effort / Characteristics Respiratory Depth Respiratory Pattern Blood Pressure 138/106 H Blood Pressure [Right Arm] Blood Pressure Mean 113 Blood Pressure Mean [Right Arm] Blood Pressure Position Blood Pressure Position [Right Arm] Pulse Oximetry 93 93 Oxygen Delivery Method Oxygen Flow Rate Sepsis Recent Fever Within 48 Hours Sepsis New/Unexplained Change in Mental Status Sepsis Action Taken by Nursing 05/03/24 01:56 05/03/24 02:00 05/03/24 02:03 Temperature Temperature Source Pulse Rate 104 H Pulse Rate [Apical] Pulse Rate from SpO2 Sensor 105 H Pulse Rhythm Pulse Rhythm [Apical] Pulse Strength Pulse Strength [Apical] Respiratory Rate 19 Respiratory Effort / Characteristics Respiratory Depth Respiratory Pattern Blood Pressure 133/97 135/97 Blood Pressure [Right Arm] Blood Pressure Mean 105 104 Blood Pressure Mean [Right Arm] Blood Pressure Position Blood Pressure Position [Right Arm] Pulse Oximetry 97 Oxygen Delivery Method Oxygen Flow Rate Sepsis Recent Fever Within 48 Hours Sepsis New/Unexplained Change in Mental Status Sepsis Action Taken by Nursing 05/03/24 02:11 05/03/24 02:30 05/03/24 02:30 Temperature Temperature Source Pulse Rate 100 H Pulse Rate [Apical] Pulse Rate from SpO2 Sensor 101 H Pulse Rhythm Pulse Rhythm [Apical] Pulse Strength Pulse Strength [Apical] Respiratory Rate 15 Respiratory Effort / Characteristics Respiratory Depth Respiratory Pattern Blood Pressure 147/100 H 147/100 H Blood Pressure [Right Arm] Blood Pressure Mean 103 103 Blood Pressure Mean [Right Arm] Blood Pressure Position Blood Pressure Position [Right Arm] Pulse Oximetry 96 Oxygen Delivery Method Oxygen Flow Rate Sepsis Recent Fever Within 48 Hours Sepsis New/Unexplained Change in Mental Status Sepsis Action Taken by Nursing 05/03/24 02:38 05/03/24 03:00 Temperature Temperature Source Pulse Rate 99 H Pulse Rate [Apical] 89 Pulse Rate from SpO2 Sensor 99 H Pulse Rhythm Pulse Rhythm [Apical] Regular Pulse Strength Pulse Strength [Apical] Normal Respiratory Rate 19 18 Respiratory Effort / Characteristics Non-Labored Spontaneous Respiratory Depth Normal Respiratory Pattern Regular Blood Pressure Blood Pressure [Right Arm] 151/99 H Blood Pressure Mean Blood Pressure Mean [Right Arm] 116 Blood Pressure Position Blood Pressure Position [Right Arm] Semi-fowlers Pulse Oximetry 98 99 Oxygen Delivery Method Nasal Cannula Oxygen Flow Rate 2 Sepsis Recent Fever Within 48 Hours Sepsis New/Unexplained Change in Mental Status Sepsis Action Taken by Nursing Laboratory Data 05/03/24 01:35 05/03/24 01:35 Lab Results 05/03/24 Range/Units 01:35 WBC 6.99 (4.8-10.8) K/ul RBC 5.55 (4.70-6.10) M/uL Hgb 17.3 (14.0-18.0) g/dl Hct 51.1 (42.0-52.0) % MCV 92.1 (80.0-100.0) fL MCH 31.2 (25.0-34.0) pg MCHC 33.9 (32.0-36.0) g/dL RDW Std Deviation 47.1 H (36.4-46.3) fL RDW Coeff of Hang 13.9 (11.5-14.5) % Plt Count 160 (130-400) K/uL MPV 10.0 (9.4-12.4) fL Immature Gran % (Auto) 0.1 % Neut % (Auto) 49.9 % Lymph % (Auto) 35.2 % [place] % (Auto) 8.4 % Eos % (Auto) 5.0 % Baso % (Auto) 1.4 % Neut # (Auto) 3.48 (1.40-6.50) K/uL Lymph # (Auto) 2.46 (1.20-3.40) K/uL [place] # (Auto) 0.59 (0.11-0.59) K/uL Eos # (Auto) 0.35 (0.00-0.50) K/uL Baso # (Auto) 0.10 (0.00-0.20) K/uL Immature Gran # (Auto) 0.01 (0.01-0.20) K/uL Sodium 140 (136-145) mmol/L Potassium 3.7 (3.5-5.1) mmol/L Chloride 102 (98-107) mmol/L Carbon Dioxide 28 (21-32) mmol/L Anion Gap 10 (3-11) BUN 8 (6-23) mg/dl Creatinine 0.73 (0.6-1.4) mg/dl Est Cr Clr Drug Dosing 117.1 ml/min eGFR 110.84 BUN/Creatinine Ratio 11.0 (10-20) Glucose 170 H (70-99(Fasting)) mg/dl Calcium 8.2 L (8.6-10.3) mg/dl Total Bilirubin 0.7 (0.2-1.0) mg/dl AST 130 H (13-39) U/L ALT 80 H (7-52) U/L Alkaline Phosphatase 94 (34-104) U/L Total Protein 8.7 H (6.0-8.3) gm/dl Albumin 4.0 (3.4-5.0) gm/dl Globulin 4.7 H (2.5-4.0) gm/dl Albumin/Globulin Ratio 0.9 (0.9-2) Ethyl Alcohol mg/dL 290.6 H (<10.0) mg/dl Administered Medications Sodium Chloride (Nss) 1,000 mls @ 80 mls/hr IV .[id number] [facility] Stop: 05/03/24 18:17 Last Admin: 05/03/24 06:43 Dose: 80 mls/hr Documented By: MONIE Lorazepam (Lorazepam 2 Mg/1 Ml Vial) 1 mg IV UD PRN; Protocol PRN Reason: EtOH Withdrawal AWSS Score 6,7 Stop: 06/02/24 05:47 Last Admin: 05/03/24 06:30 Dose: 1 mg Documented By: MONIE Discontinued Medications Diazepam (Diazepam 5 Mg/Ml 10ml Vial) 10 mg IV NOW STA Stop: 05/03/24 01:37 Last Admin: 05/03/24 01:52 Dose: 10 mg Documented By: ANJANA Thiamine HCl 100 mg/ Syringe 10 mls @ 2 mls/min IV NOW STA Stop: 05/03/24 03:46 Last Admin: 05/03/24 06:12 Dose: 2 mls/min Documented By: MONIE Promethazine HCl (Phenergan) 12.5 mg in 50.5 mls @ 202 mls/hr IV NOW STA Stop: 05/03/24 04:13 Last Infusion: 05/03/24 06:07 Dose: Infused Documented By: Admin: 05/03/24 04:17 Dose: 202 mls/hr Documented By: MAC Ondansetron HCl (Ondansetron Inj 2 Mg/Ml 2 Ml Vial) 4 mg IV NOW STA Stop: 05/03/24 01:38 Last Admin: 05/03/24 01:51 Dose: 4 mg Documented By: ANJANA Discharge Plan Visit Data Chief Complaint: Alcohol Withdrawal Stated Complaint: ETOH WITHDRAWL ED Provider: Melissa Martinez Discharge Problem: Alcoholic hepatitis, Alcohol dependence, Alcohol withdrawal syndrome Patient Disposition: Admitted As Inpatient Discharge Instructions Interventions: ED Discharge Assessment Last Done: 05/03/24 04:30
--- NOTE | 2024-05-03 03:54 | History & Physical Report ---
Date of Service May 03, 2024 Assessment & Plan (1) Alcohol withdrawal: Plan: 48-year-old male with past medical history significant for pancreatic cyst, secondary esophageal varices without bleeding, alcoholic cirrhosis of liver with ascites, chronic cholecystitis, coagulopathy, macrocytic anemia, history of biliary colic, ongoing alcoholism presents with alcohol withdrawal. Patient was recently in the hospital for alcohol withdrawal. Patient states he was drinking again after discharge. Today he drank 12 beers. He wanted to stop drinking so he came to the hospital. [place]. Received Valium in the ER. Hemodynamics are okay. Denies any headache. No dizziness. Has some blurred vision. No runny nose or sore throat. Has some nausea. No vomiting. Patient states having on and off chest pain for last 1 week. The chest pain comes on its own. Currently no chest pain. Denies shortness of breath. No abdominal pain. Normal bowel and bladder movements. Alcohol withdrawal History of alcohol withdrawal seizures several years ago Starting on Librium protocol with IV Ativan as needed Continue home gabapentin Thiamine and folic acid and multivitamin Close monitor for withdrawals Chest pain on and off EKG okay Will follow serial enzymes Mild transaminitis Most from alcoholism Follow repeat labs Alcoholic liver cirrhosis with ascites Esophageal varices Continue nadolol Continue Lasix and spironolactone with potassium and magnesium supplements Monitor for volume overload Follow-up with GI History of anxiety On buspirone Chronic cholecystitis On ursodiol. History of vitamin D deficiency On supplements DVT prophylaxis Lovenox Disposition Med/telemetry History of Present Illness Chief Complaint: Alcohol withdrawal Primary Care Provider: Michelle Borrego DO 48-year-old male with past medical history significant for pancreatic cyst, secondary esophageal varices without bleeding, alcoholic cirrhosis of liver with ascites, chronic cholecystitis, coagulopathy, macrocytic anemia, history of biliary colic, ongoing alcoholism presents with alcohol withdrawal. Patient was recently in the hospital for alcohol withdrawal. Patient states he was drinking again after discharge. Today he drank 12 beers. He wanted to stop drinking so he came to the hospital. [place]. Received Valium in the ER. Hemodynamics are okay. Denies any headache. No dizziness. Has some blurred vision. No runny nose or sore throat. Has some nausea. No vomiting. Patient states having on and off chest pain for last 1 week. The chest pain comes on its own. Currently no chest pain. Denies shortness of breath. No abdominal pain. Normal bowel and bladder movements. Past medical history. As mentioned above Past surgical history. Cologuard. EGD. ERCP with stone removal. Tonsillectomy. Social history. Snuff tobacco 1 can every 2 weeks. Heavy alcohol use. No drug use. Family history. Mother has asthma. Diabetes. Stroke. Father had prostate cancer. Stroke. Allergies Allergy/AdvReac Type Severity Reaction Status Date / Time aspirin AdvReac Intermediate PT STATES Verified 02/29/24 22:12 "HAPPENED A CHILD--BLOODY NOSE" Home Medications Medication Instructions Recorded Confirmed Type nadolol 20 mg tablet 20 mg PO HS 06/10/18 05/03/24 History ursodiol 300 mg capsule 300 mg PO BID 06/10/18 05/03/24 History furosemide 20 mg tablet 20 mg PO QAM 11/14/22 05/03/24 History spironolactone 25 mg tablet 25 mg PO QAM 11/14/22 05/03/24 History folic acid 1 mg tablet 1 mg PO QAM #30 tabs 06/06/23 05/03/24 Rx pantoprazole 40 mg tablet,delayed 40 mg PO QAM 08/01/23 05/03/24 History release cholecalciferol (vitamin D3) 125 125 mcg PO QAM 02/29/24 05/03/24 History mcg (5,000 unit) tablet (Vitamin D3) magnesium chloride 64 mg 64 mg PO AMHS 02/29/24 05/03/24 History (magnesium chloride) tablet,delayed release (Mag 64) gabapentin 300 mg capsule 600 mg (2 x 300 mg) PO TID 30 days 03/05/24 05/03/24 Rx #180 caps buspirone 5 mg tablet 5 mg PO AMHS 04/28/24 05/03/24 History calcium carbonate 600 mg PO DAILY 04/28/24 05/03/24 History ferrous sulfate 325 mg (65 mg 325 mg PO QAM 04/28/24 05/03/24 History iron) tablet potassium chloride 20 mEq 20 meq PO AMPM 04/28/24 05/03/24 History tablet,extended release(part/cryst) ondansetron 4 mg disintegrating 4 mg PO DAILY PRN nausea and 04/30/24 05/03/24 Rx tablet vomiting 30 days #30 tabs lorazepam 1 mg tablet 0.5 mg PO UD PRN ALCOHOL WITHDRAWL 05/03/24 05/03/24 History Past Med/Surg History Problem List (Updated 05/03/24 @ 06:56 by Melissa Martinez MD) Alcohol withdrawal (Acute) Alcohol withdrawal syndrome (Acute) Alcohol dependence (Acute) Electrolyte abnormality (Acute) Hypokalemia (Acute) Alcohol abuse (Acute) Prolonged QT interval (Acute) Alcoholic cirrhosis Acute hypokalemia (Acute) Nausea & vomiting (Acute) Thrombocytopenia (Acute) Transaminitis (Acute) Hypomagnesemia (Acute) Alcoholic hepatitis (Acute) Esophageal varices Transaminitis (Acute) Medical History Alcohol withdrawal Abrasion of finger Fall Alcohol intoxication Alcohol withdrawal Alcohol withdrawal Cholecystitis Choledocholithiasis Depression Anxiety UGIB (upper gastrointestinal bleed) Thrombocytopenia Ascites Alcohol abuse Alcoholic cirrhosis of liver Esophageal varices Portal hypertension History of macrocytic anemia History of alcohol abuse Surgical History History of esophagogastroduodenoscopy (EGD) Including procedures for esophageal varices banding History of tonsillectomy Family History Mother Diabetes Father Prostate cancer Other No family history of adverse response to anesthesia Social History Smoking Status: Never smoker Tobacco Type: Smokeless Tobacco (Dip or Chew) Second Hand Exposure: No; Do You Dip or Chew Tobacco: Yes; Hx Alcohol Use: Yes Alcohol type: beer and hard liquor Hx Substance Use: No Preferred Language: Portuguese Communication Ability: Effective 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 ENT- oropharynx clear Neck- supple, no JVD. Lungs- clear to auscultation no wheezing or crackles Heart- regular rate and rhythm; no murmur, no gallop. Abdomen- normal bowel sounds, soft, nontender, no distension Extremities- no pretibial edema, no erythema seen Neuro- alert, oriented PERRL, no facial palsy; no dysarthria; moves extremities Results & Data Results & Data Vital Signs (Past 12 Hours) Vital Signs Temp Pulse Pulse Resp BP BP Pulse Ox 05/03/24 03:00 89 18 151/99 H 99 05/03/24 02:38 99 H 19 98 05/03/24 02:30 147/100 H 05/03/24 02:30 147/100 H 05/03/24 02:11 100 H 15 96 05/03/24 02:03 104 H 19 97 05/03/24 02:00 135/97 05/03/24 01:56 133/97 05/03/24 01:48 98 H 13 93 05/03/24 01:45 107 H 18 93 05/03/24 01:28 138/106 H 05/03/24 01:28 138/106 H 05/03/24 01:22 101 H 05/03/24 01:04 36.6 C 125 H 18 145/93 H 94 O2 Del Method 05/03/24 03:00 Room Air 05/03/24 02:38 05/03/24 02:30 05/03/24 02:30 05/03/24 02:11 05/03/24 02:03 05/03/24 02:00 05/03/24 01:56 05/03/24 01:48 05/03/24 01:45 05/03/24 01:28 05/03/24 01:28 05/03/24 01:22 05/03/24 01:04 Room Air Diagnostic Findings Laboratory Results WBC 6.99 K/ul (4.8-10.8) 05/03/24 01:35 RBC 5.55 M/uL (4.70-6.10) 05/03/24 01:35 Hgb 17.3 g/dl (14.0-18.0) 05/03/24 01:35 Hct 51.1 % (42.0-52.0) 05/03/24 01:35 MCV 92.1 fL (80.0-100.0) 05/03/24 01:35 MCH 31.2 pg (25.0-34.0) 05/03/24 01:35 MCHC 33.9 g/dL (32.0-36.0) 05/03/24 01:35 RDW Std Deviation 47.1 fL (36.4-46.3) H 05/03/24 01:35 RDW Coeff of Hang 13.9 % (11.5-14.5) 05/03/24 01:35 Plt Count 160 K/uL (130-400) 05/03/24 01:35 MPV 10.0 fL (9.4-12.4) 05/03/24 01:35 Immature Gran % (Auto) 0.1 % 05/03/24 01:35 Neut % (Auto) 49.9 % 05/03/24 01:35 Lymph % (Auto) 35.2 % 05/03/24 01:35 [place] % (Auto) 8.4 % 05/03/24 01:35 Eos % (Auto) 5.0 % 05/03/24 01:35 Baso % (Auto) 1.4 % 05/03/24 01:35 Neut # (Auto) 3.48 K/uL (1.40-6.50) 05/03/24 01:35 Lymph # (Auto) 2.46 K/uL (1.20-3.40) 05/03/24 01:35 [place] # (Auto) 0.59 K/uL (0.11-0.59) 05/03/24 01:35 Eos # (Auto) 0.35 K/uL (0.00-0.50) 05/03/24 01:35 Baso # (Auto) 0.10 K/uL (0.00-0.20) 05/03/24 01:35 Immature Gran # (Auto) 0.01 K/uL (0.01-0.20) 05/03/24 01:35 Sodium 140 mmol/L (136-145) 05/03/24 01:35 Potassium 3.7 mmol/L (3.5-5.1) 05/03/24 01:35 Chloride 102 mmol/L (98-107) 05/03/24 01:35 Carbon Dioxide 28 mmol/L (21-32) 05/03/24 01:35 Anion Gap 10 (3-11) 05/03/24 01:35 BUN 8 mg/dl (6-23) 05/03/24 01:35 Creatinine 0.73 mg/dl (0.6-1.4) 05/03/24 01:35 Est Cr Clr Drug Dosing 117.1 ml/min 05/03/24 01:35 eGFR 110.84 05/03/24 01:35 BUN/Creatinine Ratio 11.0 (10-20) 05/03/24 01:35 Glucose 170 mg/dl (70-99(Fasting)) H 05/03/24 01:35 Calcium 8.2 mg/dl (8.6-10.3) L 05/03/24 01:35 Total Bilirubin 0.7 mg/dl (0.2-1.0) 05/03/24 01:35 AST 130 U/L (13-39) H 05/03/24 01:35 ALT 80 U/L (7-52) H 05/03/24 01:35 Alkaline Phosphatase 94 U/L (34-104) 05/03/24 01:35 Total Protein 8.7 gm/dl (6.0-8.3) H 05/03/24 01:35 Albumin 4.0 gm/dl (3.4-5.0) 05/03/24 01:35 Globulin 4.7 gm/dl (2.5-4.0) H 05/03/24 01:35 Albumin/Globulin Ratio 0.9 (0.9-2) 05/03/24 01:35 Ethyl Alcohol mg/dL 290.6 mg/dl (<10.0) H 05/03/24 01:35 ECG Additional Comments: ECG. Sinus tachycardia rate of 101. No significant change was found. Code Status & VTE Plan VTE Prophylaxis Plan VTE Prophylaxis will be ordered: Yes
[2024-05-03] MEDS: PROMETHAZINE 12.5 MG/50.5 ML BAG IV STA (04:17)
[2024-05-03] MEDS ORDERED: NITROGLYCERIN SL 0.4 MG/TAB TAB SL PRN (05:48)
[2024-05-03] MEDS ORDERED: LORazepam 2 MG/1 ML VIAL IV PRN ×2 (05:48)
[2024-05-03] MEDS ORDERED: Ativan IV Alcohol Withdrawal--Active Protocol IV PRN (05:48)
[2024-05-03] MEDS ORDERED: chlordiazePOXIDE ALCOHOL WITHDRAWL 25MG PO STA (05:48)
[2024-05-03] MEDS: THIAMINE HCL 100 MG in SYRINGE 9 ML IV STA (06:12)
[2024-05-03] MEDS: LORazepam 2 MG/1 ML VIAL IV PRN (06:30)
[2024-05-03] MEDS: SODIUM CHLORIDE 0.9% 1,000 ML IV SCH (06:43)
[2024-05-03] MEDS: chlordiazePOXIDE HCl 25 MG CAP PO SCH (07:27)
[2024-05-03 07:45] LABS: Basophils # (auto) 0.06 K/uL (0.00-0.20); Basophils % (auto) 0.9 %; Eosinophils # (auto) 0.25 K/uL (0.00-0.50); Eosinophils % (auto) 3.8 %; Hematocrit (blood only) 46.6 % (42.0-52.0); Hemoglobin 15.8 g/dl (14.0-18.0); Immature Granulocytes # (auto) 0.01 K/uL (0.01-0.20); Immature Granulocytes % (auto) 0.2 %; Lymphocytes # (auto) 2.35 K/uL (1.20-3.40); Lymphocytes % (auto) 35.6 %; Mean Corpuscular Hemoglobin 31.1 pg (25.0-34.0); Mean Corpuscular Hgb Conc 33.9 g/dL (32.0-36.0); Mean Corpuscular Volume 91.7 fL (80.0-100.0); Mean Platelet Volume 9.8 fL (9.4-12.4); Monocytes # (auto) 0.69 K/uL (0.11-0.59); Monocytes % (auto) 10.4 %; Neutrophils # (auto) 3.25 K/uL (1.40-6.50); Neutrophils % (auto) 49.1 %; Platelet Count 142 K/uL (130-400); RDW Coefficient of Variation 13.8 % (11.5-14.5); RDW Standard Deviation 47.1 fL (36.4-46.3); Red Blood Count 5.08 M/uL (4.70-6.10); White Blood Count 6.61 K/ul (4.8-10.8)
[2024-05-03 08:00] LABS: BUN Creatinine Ratio 12.3 (10-20); Calcium 8.4 mg/dl (8.6-10.3); Creatinine Clr Calc Pharmacy 131.5 ml/min; Magnesium 1.6 mg/dl (1.7-2.4); Phosphorus 3.2 mg/dl (2.5-4.9); Potassium 3.3 mmol/L (3.5-5.1)
[2024-05-03] MEDS: SPIRONOLACTONE 25 MG TAB PO SCH (08:23)
[2024-05-03] MEDS: MAGNESIUM CHLORIDE W/CALCIUM 64MG DELAYED REL TAB PO SCH (08:23)
[2024-05-03] MEDS: ENOXAPARIN INJ 40 MG/0.4 ML SYR SQ SCH (08:23)
[2024-05-03] MEDS: POTASSIUM CHLORIDE CRTAB 20 MEQ TABCR PO SCH (08:23)
[2024-05-03] MEDS: FUROSEMIDE 20 MG TAB PO SCH (08:24)
[2024-05-03] MEDS: THIAMINE HCL 100 MG TAB PO SCH (08:24)
[2024-05-03] MEDS: CALCIUM CARBONATE 1250MG TAB PO SCH (08:24)
[2024-05-03] MEDS: busPIRone 5 MG TAB PO SCH (08:24)
[2024-05-03] MEDS: FOLIC ACID 1 MG TAB PO SCH (08:24)
[2024-05-03] MEDS: CHOLECALCIFEROL 125 MCG (5,000 UNITS) TAB PO SCH (08:24)
[2024-05-03] MEDS: FERROUS SULFATE 325 MG TAB PO SCH (08:24)
[2024-05-03] MEDS: GABAPENTIN 300 MG CAP PO SCH (08:24)
[2024-05-03] MEDS: PANTOprazole 40 MG TAB PO SCH (08:24)
[2024-05-03] MEDS: ursodioL 300 MG CAP PO SCH (08:24)
[2024-05-03] MEDS: MULTIVITAMIN TAB PO SCH (08:24)
[2024-05-03] MEDS: ONDANSETRON INJ 2 MG/ML 2 ML VIAL IV PRN (08:33)
--- NOTE | 2024-05-03 13:27 | Communication Note ---
patient seen and examined at bedside. Discussed his significant ongoing alcohol use, and quick return to the hospital. Discussed his difficulties with his alcohol use and strategies to overcome it. I discussed that I think he would benefit from an inpatient rehab stent and would also benefit from a psychiatric evaluation for help with alcohol cessation. He is agreeable with the plan and appreciative of the help. Date of Service: May 03, 2024
--- NOTE | 2024-05-03 13:57 | Psychiatric Consultation ---
Date of Consultation May 03, 2024 Impression / Recommendations Impression Diagnostically consistent with alcohol use disorder as well as unspecified anxiety likely a combination of substance-induced as well as FARZANA. Acute risk of self-harm is low given denial of SI and no longer with intoxication. Chronic risk of self-harm and harm to others is slightly increased due to substance use with substance use treatment being the most significant modifiable risk factor to reduce acute and chronic risk. They are not interested in residential treatment at this time but are agreeable to outpatient services to help with substance use and medication assisted treatment and has upcoming appointment for this. Overall, I spent a total of 45 minutes with this case including review of chart records, review of labwork, direct evaluation of the patient at bedside, counseling the patient, discussion of the patient with the hospitalist provider, discussion with the psychiatric liason during clinical rounds and documentation in the electronic health record. (1) Alcohol use disorder, moderate, dependence: (2) Anxiety: Plan -Consider starting sertraline 50mg daily for anxiety -Recommend naltrexone 50mg daily with food once LFTs are <2x above normal -Continue AWSS as well as thiamine and folic acid Psych History Identifying Data 48 yo man with a history of pancreatic cyst, secondary esophageal varices without bleeding, alcoholic cirrhosis of liver with ascites, chronic cholecystitis, coagulopathy, macrocytic anemia, history of biliary colic, ongoing alcohol use disorder admitted for alcohol withdrawal. Psychiatry consulted for possibility of co-occurring depression. Chief Complaint "I think the injection will really help". History of Present Illness Darrel was readmitted for alcohol use disorder and help with withdrawal. He is motivated to stop drinking but doesn't desire a more structured setting at this time such as residential substance use treatment. Has been drinking since about 28 years old. Longest period of sobreity was 6 years after having a seizure, doesn't identify any additional supports or differences that helped him be successful during that time. Currently he is motivated to start at outpt addiction medicine clinic in a few weeks to get monthly Vivitrol injections and start AA. He denies any current depressive symptoms, denies SI. No psychiatric hx except previous use of Celexa. Denies past attempt nor hospitalization. Identifies he does struggle with anxiety sometimes, is open to trying a different SSRI. Discussed naltrexone until Vivitrol available if LFTs improve slightly. Finding buspar possibly helpful. Allergies Allergy/AdvReac Type Severity Reaction Status Date / Time aspirin AdvReac Intermediate PT STATES Verified 02/29/24 22:12 "HAPPENED A CHILD--BLOODY NOSE" Home Medications Medication Instructions Recorded Confirmed Type nadolol 20 mg tablet 20 mg PO HS 06/10/18 05/03/24 History ursodiol 300 mg capsule 300 mg PO BID 06/10/18 05/03/24 History furosemide 20 mg tablet 20 mg PO QAM 11/14/22 05/03/24 History spironolactone 25 mg tablet 25 mg PO QAM 11/14/22 05/03/24 History folic acid 1 mg tablet 1 mg PO QAM #30 tabs 06/06/23 05/03/24 Rx pantoprazole 40 mg tablet,delayed 40 mg PO QAM 08/01/23 05/03/24 History release cholecalciferol (vitamin D3) 125 125 mcg PO QAM 02/29/24 05/03/24 History mcg (5,000 unit) tablet (Vitamin D3) magnesium chloride 64 mg 64 mg PO AMHS 02/29/24 05/03/24 History (magnesium chloride) tablet,delayed release (Mag 64) gabapentin 300 mg capsule 600 mg (2 x 300 mg) PO TID 30 days 03/05/24 05/03/24 Rx #180 caps buspirone 5 mg tablet 5 mg PO AMHS 04/28/24 05/03/24 History calcium carbonate 600 mg PO DAILY 04/28/24 05/03/24 History ferrous sulfate 325 mg (65 mg 325 mg PO QAM 04/28/24 05/03/24 History iron) tablet potassium chloride 20 mEq 20 meq PO AMPM 04/28/24 05/03/24 History tablet,extended release(part/cryst) ondansetron 4 mg disintegrating 4 mg PO DAILY PRN nausea and 04/30/24 05/03/24 Rx tablet vomiting 30 days #30 tabs lorazepam 1 mg tablet 0.5 mg PO UD PRN ALCOHOL WITHDRAWL 05/03/24 05/03/24 History Patient History Medical History Alcohol withdrawal Abrasion of finger Fall Alcohol intoxication Alcohol withdrawal Alcohol withdrawal Cholecystitis Choledocholithiasis Depression Anxiety UGIB (upper gastrointestinal bleed) Thrombocytopenia Ascites Alcohol abuse Alcoholic cirrhosis of liver Esophageal varices Portal hypertension History of macrocytic anemia History of alcohol abuse Surgical History History of esophagogastroduodenoscopy (EGD) Including procedures for esophageal varices banding History of tonsillectomy Family History Mother Diabetes Father Prostate cancer Other No family history of adverse response to anesthesia Social History Smoking Status: Never smoker Tobacco Type: Smokeless Tobacco (Dip or Chew) Second Hand Exposure: No; Do You Dip or Chew Tobacco: Yes; Hx Alcohol Use: Yes Alcohol type: beer and hard liquor Hx Substance Use: No Preferred Language: Kazakh Communication Ability: Effective Quality Control Assistant Required: No Beliefs That Will Affect Care: None Current Living Situation: Significant Other Current Living Situation Comment: lives with parents Other Information That Helps Us Care for You: No Feels Safe at Home: Yes Safety Concerns: Feels Safe At This Time Assistive Devices: None Physical Exam Psychiatric: Orientation: alert and oriented x 3 Apperance: appropriately dressed and appropriately groomed Eye Contact: good eye contact Motor Behavior: no abnormal motor movements Speech: normal rate/rhythm/volume of speech Affect: + constricted affect Mood: + anxious mood; no depressed mood Thought Process: linear/logical thought process Thought Content: reality based without delusions Suicidal Thoughts: denies suicidal thoughts Homicidal Thoughts: denies homicidal thoughts Hallucinations: no auditory hallucinations and no visual hallucinations Cognition: recent memory grossly intact, remote memory grossly intact, attention grossly intact and language grossly intact Estimated Intelligence: consistent with education level Insight: + fair insight Judgment: + limited judgement Vital Signs (Past 24 Hours): Last Vital Signs Temp 36.9 C 05/03/24 11:24 Pulse 97 H 05/03/24 11:24 Resp 18 05/03/24 11:24 BP 122/84 05/03/24 11:24 Pulse Ox 95 05/03/24 11:24 O2 Del Method Room Air 05/03/24 11:24 O2 Flow Rate 2 05/03/24 04:30 Results & Data (PSY) Medications Administered Buspirone HCl (Buspirone 5 Mg Tab) 5 mg PO AMHS LANDRY Stop: 06/02/24 08:59 Last Admin: 05/03/24 08:24 Dose: 5 mg Documented By: ANISA Calcium Carbonate (Calcium Carbonate 1250mg Tab) 1 tab PO DAILY [facility] Stop: 06/02/24 08:59 Last Admin: 05/03/24 08:24 Dose: 1 tab Documented By: ANISA Chlordiazepoxide HCl (Chlordiazepoxide Hcl 25 Mg Cap) 25 mg PO Q6H [facility] Stop: 05/04/24 01:01 Last Admin: 05/03/24 12:22 Dose: 25 mg Documented By: Admin: 05/03/24 07:27 Dose: 25 mg Documented By: ANISA Enoxaparin Sodium (Enoxaparin Inj 40 Mg/0.4 Ml Syr) 40 mg SQ Q24H [facility] Stop: 06/02/24 07:59 Last Admin: 05/03/24 08:23 Dose: 40 mg Documented By: ANISA Ferrous Sulfate (Ferrous Sulfate 325 Mg Tab) 325 mg PO QAM [facility] Stop: 06/02/24 08:59 Last Admin: 05/03/24 08:24 Dose: 325 mg Documented By: ANISA Folic Acid (Folic Acid 1 Mg Tab) 1 mg PO QAM [facility] Stop: 06/02/24 08:59 Last Admin: 05/03/24 08:24 Dose: 1 mg Documented By: ANISA Furosemide (Furosemide 20 Mg Tab) 20 mg PO QAM [facility] Stop: 06/02/24 08:59 Last Admin: 05/03/24 08:24 Dose: 20 mg Documented By: ANISA Gabapentin (Gabapentin 300 Mg Cap) 600 mg PO TID [facility] Stop: 06/02/24 08:59 Last Admin: 05/03/24 13:11 Dose: 600 mg Documented By: Admin: 05/03/24 08:24 Dose: 600 mg Documented By: ANISA Sodium Chloride (Nss) 1,000 mls @ 80 mls/hr IV .[id number] [facility] Stop: 05/03/24 18:17 Last Admin: 05/03/24 06:43 Dose: 80 mls/hr Documented By: MONIE Lorazepam (Lorazepam 2 Mg/1 Ml Vial) 1 mg IV UD PRN; Protocol PRN Reason: EtOH Withdrawal AWSS Score 6,7 Stop: 06/02/24 05:47 Last Admin: 05/03/24 12:22 Dose: 1 mg Documented By: Admin: 05/03/24 06:30 Dose: 1 mg Documented By: MONIE Magnesium Chloride (Magnesium Chloride W/Calcium 64mg Delayed Rel Tab) 64 mg PO [facility] Stop: 06/02/24 08:59 Last Admin: 05/03/24 08:23 Dose: 64 mg Documented By: ANISA [facility]ivitamins (Multivitamin Tab) [facility] [place] Stop: 06/02/24 08:59 Last Admin: 05/03/24 08:24 Dose: 1 tab Documented By: ANISA Ondansetron HCl (Ondansetron Inj 2 Mg/Ml 2 Ml Vial) 4 mg IV Q6H PRN PRN Reason: Nausea Stop: 06/02/24 05:47 Last Admin: 05/03/24 08:33 Dose: 4 mg Documented By: ANISA Pantoprazole Sodium (Pantoprazole 40 Mg Tab) [address] [facility] Stop: 06/02/24 08:59 Last Admin: 05/03/24 08:24 Dose: 40 mg Documented By: ANISA Potassium Chloride (Potassium Chloride Crtab 20 Meq Tabcr) 20 meq PO BID [facility] Stop: 06/02/24 08:59 Last Admin: 05/03/24 08:23 Dose: 20 meq Documented By: ANISA Spironolactone (Spironolactone 25 Mg Tab) 25 mg PO QAM [facility] Stop: 06/02/24 08:59 Last Admin: 05/03/24 08:23 Dose: 25 mg Documented By: ANISA Thiamine HCl (Thiamine Hcl 100 Mg Tab) [facility] [place] Stop: 06/02/24 08:59 Last Admin: 05/03/24 08:24 Dose: 100 mg Documented By: ANISA Ursodiol (Ursodiol 300 Mg Cap) 300 mg PO BID [facility] Stop: 06/02/24 08:59 Last Admin: 05/03/24 08:24 Dose: 300 mg Documented By: ANISA Vitamin D (Cholecalciferol 125 Mcg (5,000 Units) Tab) 125 mcg PO QAM [facility] Stop: 06/02/24 08:59 Last Admin: 05/03/24 08:24 Dose: 125 mcg Documented By: ANISA Coding Level of Care Code 30964 IN/OBS CONSULT LVL 3,45M Diagnoses Alcohol use disorder, moderate, dependence F10.20 Anxiety F41.9
[2024-05-03] MEDS: SERTRALINE HCL 50 MG TABLET PO SCH (15:02)
[2024-05-03] MEDS: FAMOTIDINE 10 MG TABLET PO PRN (21:13)
[2024-05-03] MEDS: nadoloL 40 MG TAB PO SCH (21:14)
[2024-05-04 06:48] LABS: Albumin Globulin Ratio 0.9 (0.9-2); Albumin Level 3.2 gm/dl (3.4-5.0); BUN Creatinine Ratio 14.1 (10-20); Bilirubin Direct 0.2 mg/dl (0-0.2); Bilirubin,Total 1.1 mg/dl (0.2-1.0); Calcium 9.5 mg/dl (8.6-10.3); Creatinine Clr Calc Pharmacy 86.4 ml/min; Globulin 3.7 gm/dl (2.5-4.0); Magnesium 1.5 mg/dl (1.7-2.4); Phosphorus 3.4 mg/dl (2.5-4.9); Potassium 4.4 mmol/L (3.5-5.1); Total Protein 6.9 gm/dl (6.0-8.3)
[2024-05-04] MEDS: MAGNESIUM SULFATE / D5W 1 GM/100 ML BAG IV SCH (07:50)
[2024-05-04] MEDS: chlordiazePOXIDE HCl 25 MG CAP PO SCH (08:01)
--- NOTE | 2024-05-04 09:09 | Electrocardiogram Report ---
Test Reason : Blood Pressure : */* mmHG Vent. Rate : 62 BPM Atrial Rate : 62 BPM P-R Int : 130 ms QRS Dur : 96 ms QT Int : 444 ms P-R-T Axes : 48 69 44 degrees QTcB Int : 450 ms Normal sinus rhythm Normal ECG When compared with ECG of 28-Apr-2024 21:58, No significant change was found Confirmed by Guy Dejesus ([id number]) on 05/04/2024 9:08:52 AM Referred By: REFERRED SELF Confirmed By: Guy Dejesus
[2024-05-04] MEDS: NALTREXONE HCL 50 MG TAB PO SCH (12:31)
--- NOTE | 2024-05-04 14:17 | Hospitalist Progress Note ---
Date of Service May 04, 2024 Assessment & Plan (1) Alcohol withdrawal: Plan: 48-year-old male with past medical history significant for pancreatic cyst, secondary esophageal varices without bleeding, alcoholic cirrhosis of liver with ascites, chronic cholecystitis, coagulopathy, macrocytic anemia, history of biliary colic, ongoing alcoholism presents with alcohol withdrawal. Patient was recently in the hospital for alcohol withdrawal. Patient states he was drinking again after discharge. Today he drank 12 beers. He wanted to stop drinking so he came to the hospital. [place]. Received Valium in the ER. Hemodynamics are okay. Denies any headache. No dizziness. Has some blurred vision. No runny nose or sore throat. Has some nausea. No vomiting. Patient states having on and off chest pain for last 1 week. The chest pain comes on its own. Currently no chest pain. Denies shortness of breath. No abdominal pain. Normal bowel and bladder movements. Alcohol withdrawal History of alcohol withdrawal seizures several years ago -continue Librium protocol with IV Ativan as needed -Continue home gabapentin -Thiamine and folic acid and multivitamin -start naltrexone 50 mg PO daily, appreciate psych input -is starting outpatient alcohol cessation therapy on the , will help patient through withdrawal here and discharge when ready (perhaps 05/05/2024) Alcoholic Cirrhosis with Ascites Esophageal varices -Most from alcoholism -LFTs improving today -Continue nadolol -Continue Lasix and spironolactone with potassium and magnesium supplements -Follow-up with GI History of anxiety -On buspirone -appreciate psych input, start sertraline 50 mg daily Chronic cholecystitis O-n ursodiol. History of vitamin D deficiency -continue supplements Feeding/fluids: regular Analgesia: start tylenol Sedation: na Thromboprophylaxis: lovenox Head up position: na Ulcer prophylaxis: protonix, famotidine Glycemic control: na Spontaneous breathing trial: na Bowel care: start miralax Indwelling catheter removal: na Deescalation of antibiotics: na I spent a total of 40 minutes in direct patient care, including [id number] time with the patient and/or family, reviewing medical records, ordering and reviewing diagnostic tests, and coordinating care with other healthcare providers. This time includes: history taking, physical examination, medical decision making, counseling, ECG interpretation, imaging interpretation, lab interpretation, orders, and education, excluding time spent in the performance of separately billed services. Admission and Anticipated Discharge Date Admission Date: May 03, 2024 Subjective patient seen and examined at bedside. Patient is doing better today. He still feels nauseous and is still having tremors. Discussed starting naltrexone today which she is agreeable to. Review of Systems Review of Systems: CONSTITUTIONAL: Patient denies fevers, chills, sweats and weight changes. EYES: Patient denies any visual symptoms. EARS, NOSE, AND THROAT: No difficulties with hearing. No symptoms of rhinitis or sore throat. CARDIOVASCULAR: Patient denies chest pains, palpitations, orthopnea and paroxysmal nocturnal dyspnea. RESPIRATORY: No dyspnea on exertion, no wheezing or cough. GI: nausea/vomiting : No urinary hesitancy or dribbling. No nocturia or urinary frequency. No abnormal urethral discharge. MUSCULOSKELETAL: No myalgias or arthralgias. NEUROLOGIC: tremors PSYCHIATRIC: Patient denies problems with mood disturbance. No problems with anxiety. ENDOCRINE: No excessive urination or excessive thirst. DERMATOLOGIC: Patient denies any rashes or skin changes. Physical Exam Physical Exam: Gen: A&O 3 NAD HEENT: NCAT, EOMI, not icteric. External ears normal. No rhinorrhea. Moist mucous membranes. Neck: Supple, full range of motion, no observable masses, No meningeal sign. Lungs: No Respiratory distress. CV: RRR, no edema. Abdomen: Soft, nondistended, No rebound tenderness. MSK: No joint swelling, no redness. Skin: No rashes, petechiae, lesions. Normal color per patient. Neuro: tremors noted Psych: Appropriate for situation. Results & Data Results & Data Vital Signs (Past 12 Hours) Vital Signs Temp Pulse Pulse Resp BP Pulse Ox O2 Del Method 05/04/24 11:35 36.8 C 64 18 145/86 H 96 Room Air 05/04/24 07:45 36.4 C L 57 L 18 158/91 H 95 Room Air 05/04/24 07:31 70 05/04/24 05:44 36.9 C 57 L 22 127/78 93 Room Air 05/04/24 03:42 36.6 C 54 L 20 133/82 92 Room Air Laboratory Results - Personally reviewed, chronic magnesium deficiency this morning at 1.5, LFTs have improved Medications Administered Buspirone HCl (Buspirone 5 Mg Tab) 5 mg PO [facility] COUNTS INCLUDE 234 BEDS AT THE [facility] Stop: 06/02/24 08:59 Last Admin: 05/04/24 07:58 Dose: 5 mg Documented By: Admin: 05/03/24 21:17 Dose: 5 mg Documented By: [id number] Admin: 05/03/24 08:24 Dose: 5 mg Documented By: ANISA Calcium Carbonate (Calcium Carbonate 1250mg Tab) 1 tab PO DAILY LANDRY Stop: 06/02/24 08:59 Last Admin: 05/04/24 07:55 Dose: 1 tab Documented By: Admin: 05/03/24 08:24 Dose: 1 tab Documented By: ANISA Chlordiazepoxide HCl (Chlordiazepoxide Hcl 25 Mg Cap) 25 mg PO Q8H COUNTS INCLUDE 234 BEDS AT THE [facility] Stop: 05/05/24 00:01 Last Admin: 05/04/24 08:01 Dose: 25 mg Documented By: BAY Enoxaparin Sodium (Enoxaparin Inj 40 Mg/0.4 Ml Syr) 40 mg SQ Q24H COUNTS INCLUDE 234 BEDS AT THE [facility] Stop: 06/02/24 07:59 Last Admin: 05/04/24 07:58 Dose: 40 mg Documented By: Admin: 05/03/24 08:23 Dose: 40 mg Documented By: ANISA Famotidine (Famotidine 10 Mg Tablet) 10 mg PO BID PRN PRN Reason: reflux Stop: 06/02/24 20:59 Last Admin: 05/03/24 21:13 Dose: 10 mg Documented By: [id number] Folic Acid (Folic Acid 1 Mg Tab) [facility] [place] Stop: 06/02/24 08:59 Last Admin: 05/04/24 07:56 Dose: 1 mg Documented By: Admin: 05/03/24 08:24 Dose: 1 mg Documented By: ANISA Furosemide (Furosemide 20 Mg Tab) 20 mg PO QAM COUNTS INCLUDE 234 BEDS AT THE [facility] Stop: 06/02/24 08:59 Last Admin: 05/04/24 07:58 Dose: 20 mg Documented By: Admin: 05/03/24 08:24 Dose: 20 mg Documented By: ANISA Gabapentin (Gabapentin 300 Mg Cap) 600 mg PO TID COUNTS INCLUDE 234 BEDS AT THE [facility] Stop: 06/02/24 08:59 Last Admin: 05/04/24 07:55 Dose: 600 mg Documented By: Admin: 05/03/24 21:13 Dose: 600 mg Documented By: [id number] Admin: 05/03/24 13:11 Dose: 600 mg Documented By: Admin: 05/03/24 08:24 Dose: 600 mg Documented By: ANISA Lorazepam (Lorazepam 2 Mg/1 Ml Vial) 1 mg IV UD PRN; Protocol PRN Reason: EtOH Withdrawal AWSS Score 6,7 Stop: 06/02/24 05:47 Last Admin: 05/04/24 12:32 Dose: 1 mg Documented By: Admin: 05/04/24 05:55 Dose: 1 mg Documented By: [id number] Admin: 05/04/24 00:57 Dose: 1 mg Documented By: [id number] Admin: 05/03/24 18:31 Dose: 1 mg Documented By: Admin: 05/03/24 16:33 Dose: 1 mg Documented By: Admin: 05/03/24 14:29 Dose: 1 mg Documented By: Admin: 05/03/24 12:22 Dose: 1 mg Documented By: Admin: 05/03/24 06:30 Dose: 1 mg Documented By: MONIE Magnesium Chloride (Magnesium Chloride W/Calcium 64mg Delayed Rel Tab) 64 mg PO [facility]CLUDE 234 BEDS AT THE [facility] Stop: 06/02/24 08:59 Last Admin: 05/04/24 07:54 Dose: 64 mg Documented By: Admin: 05/03/24 21:14 Dose: 64 mg Documented By: [id number] Admin: 05/03/24 08:23 Dose: 64 mg Documented By: ANISA Multivitamins (Multivitamin Tab) 1 tab PO QAM COUNTS INCLUDE 234 BEDS AT THE [facility] Stop: 06/02/24 08:59 Last Admin: 05/04/24 07:55 Dose: 1 tab Documented By: Admin: 05/03/24 08:24 Dose: 1 tab Documented By: ANISA Nadolol (Nadolol 40 Mg Tab) 20 mg PO HS COUNTS INCLUDE 234 BEDS AT THE [facility] Stop: 06/02/24 20:59 Last Admin: 05/03/24 21:14 Dose: 20 mg Documented By: [id number] Naltrexone HCl (Naltrexone Hcl 50 Mg Tab) 50 mg PO DAILY LANDRY Stop: 06/03/24 10:59 Last Admin: 05/04/24 12:31 Dose: 50 mg Documented By: BAY Ondansetron HCl (Ondansetron Inj 2 Mg/Ml 2 Ml Vial) 4 mg IV Q6H PRN PRN Reason: Nausea Stop: 06/02/24 05:47 Last Admin: 05/04/24 12:31 Dose: 4 mg Documented By: Admin: 05/03/24 14:33 Dose: 4 mg Documented By: Admin: 05/03/24 08:33 Dose: 4 mg Documented By: ANISA Pantoprazole Sodium (Pantoprazole 40 Mg Tab) [facility] [place] Stop: 06/02/24 08:59 Last Admin: 05/04/24 07:56 Dose: 40 mg Documented By: Admin: 05/03/24 08:24 Dose: 40 mg Documented By: ANISA Potassium Chloride (Potassium Chloride Crtab 20 Meq Tabcr) 20 meq PO BID COUNTS INCLUDE 234 BEDS AT THE [facility] Stop: 06/02/24 08:59 Last Admin: 05/04/24 08:01 Dose: 20 meq Documented By: Admin: 05/03/24 21:16 Dose: 20 meq Documented By: [id number] Admin: 05/03/24 08:23 Dose: 20 meq Documented By: ANISA Sertraline HCl (Sertraline Hcl 50 Mg Tablet) 50 mg PO [facility] Stop: 06/02/24 14:44 Last Admin: 05/04/24 07:56 Dose: 50 mg Documented By: Admin: 05/03/24 15:02 Dose: 50 mg Documented By: ANISA Spironolactone (Spironolactone 25 Mg Tab) 25 mg PO [facility] Stop: 06/02/24 08:59 Last Admin: 05/04/24 07:55 Dose: 25 mg Documented By: Admin: 05/03/24 08:23 Dose: 25 mg Documented By: ANISA Thiamine HCl (Thiamine Hcl 100 Mg Tab) 100 mg PO [facility] Stop: 06/02/24 08:59 Last Admin: 05/04/24 07:55 Dose: 100 mg Documented By: Admin: 05/03/24 08:24 Dose: 100 mg Documented By: ANISA Ursodiol (Ursodiol 300 Mg Cap) 300 mg PO BID COUNTS INCLUDE 234 BEDS AT THE [facility] Stop: 06/02/24 08:59 Last Admin: 05/04/24 07:54 Dose: 300 mg Documented By: Admin: 05/03/24 21:15 Dose: 300 mg Documented By: [id number] Admin: 05/03/24 08:24 Dose: 300 mg Documented By: ANISA Vitamin D (Cholecalciferol 125 Mcg (5,000 Units) Tab) 125 mcg PO [facility] Stop: 06/02/24 08:59 Last Admin: 05/04/24 07:56 Dose: 125 mcg Documented By: Admin: 05/03/24 08:24 Dose: 125 mcg Documented By: ANISA
[2024-05-04] MEDS ORDERED: POLYETHYLENE (MIRALAX) 17 GM PACK PO PRN (14:18)
[2024-05-04] MEDS: cloNIDine HCL 0.1 MG TAB PO PRN (20:16)
[2024-05-05] MEDS: LORazepam 0.5 MG TAB PO STA (01:02)
[2024-05-05 06:59] LABS: Albumin Globulin Ratio 0.9 (0.9-2); Albumin Level 3.3 gm/dl (3.4-5.0); BUN Creatinine Ratio 16.9 (10-20); Bilirubin,Total 1.1 mg/dl (0.2-1.0); Calcium 9.1 mg/dl (8.6-10.3); Globulin 3.8 gm/dl (2.5-4.0); Magnesium 1.9 mg/dl (1.7-2.4); Phosphorus 3.2 mg/dl (2.5-4.9); Potassium 4.2 mmol/L (3.5-5.1); Total Protein 7.1 gm/dl (6.0-8.3)
--- NOTE | 2024-05-05 09:06 | Electrocardiogram Report ---
Test Reason : Blood Pressure : */* mmHG Vent. Rate : 56 BPM Atrial Rate : 56 BPM P-R Int : 138 ms QRS Dur : 90 ms QT Int : 484 ms P-R-T Axes : 59 59 45 degrees QTcB Int : 467 ms Sinus bradycardia Otherwise normal ECG When compared with ECG of 04-May-2024 07:11, No significant change was found Confirmed by Guy Dejesus ([id number]) on 05/05/2024 9:05:52 AM Referred By: REFERRED SELF Confirmed By: Guy Dejesus
--- NOTE | 2024-05-05 17:03 | Hospitalist Progress Note ---
Date of Service May 05, 2024 Assessment & Plan (1) Alcohol withdrawal: Plan: Per previous hospitalist notes with addendum: 48-year-old male with past medical history significant for pancreatic cyst, secondary esophageal varices without bleeding, alcoholic cirrhosis of liver with ascites, chronic cholecystitis, coagulopathy, macrocytic anemia, history of biliary colic, ongoing alcoholism presents with alcohol withdrawal. Patient was recently in the hospital for alcohol withdrawal. Patient states he was drinking again after discharge. Today he drank 12 beers. He wanted to stop drinking so he came to the hospital. [place]. Received Valium in the ER. Hemodynamics are okay. Denies any headache. No dizziness. Has some blurred vision. No runny nose or sore throat. Has some nausea. No vomiting. Patient states having on and off chest pain for last 1 week. The chest pain comes on its own. Currently no chest pain. Denies shortness of breath. No abdominal pain. Normal bowel and bladder movements. Alcohol withdrawal History of alcohol withdrawal seizures several years ago -continue Librium protocol with IV Ativan as needed -Continue home gabapentin -Thiamine and folic acid and multivitamin -start naltrexone 50 mg PO daily, appreciate psych input -is starting outpatient alcohol cessation therapy on the , will help patient through withdrawal here and discharge when ready (perhaps 05/05/2024) 05/05 Improving Continue Librium taper Continue naltrexone and sertraline Alcoholic Cirrhosis with Ascites Esophageal varices -Most from alcoholism -LFTs improving today -Continue nadolol -Continue Lasix and spironolactone with potassium and magnesium supplements -Follow-up with GI History of anxiety -On buspirone -appreciate psych input, started sertraline 50 mg daily Chronic cholecystitis O-n ursodiol. History of vitamin D deficiency -continue supplements Feeding/fluids: regular Analgesia: start tylenol Sedation: na Thromboprophylaxis: lovenox Head up position: na Ulcer prophylaxis: protonix, famotidine Glycemic control: na Spontaneous breathing trial: na Bowel care: start miralax Indwelling catheter removal: na Deescalation of antibiotics: na Disposition Hopefully discharge to home tomorrow Admission and Anticipated Discharge Date Admission Date: May 03, 2024 Subjective Follow-up for alcohol withdrawal, etc. Seen resting in bed, comfortable, not in distress States that he was having tremors and hallucinations overnight Improving today No chest pain, shortness of breath, palpitations, dizziness No other new symptoms Review of Systems Review of Systems: all noted and negative except for above Physical Exam Physical Exam: General- oriented x 3, not in distress, speaks in sentences with no effort or accessory muscle use Eyes- anicteric Neck- no JVD Lungs- clear breath sounds bilaterally, no rales/wheezes Heart- normal rate, regular rhythm; no murmurs Abdomen- normal bowel sounds, nondistended, soft, nontender Extremities- no pretibial edema, no calf tenderness Mild tremors Neuro- alert, oriented x 3; no gross focal neurologic deficits Skin- warm & dry Results & Data Results & Data Vital Signs (Past 12 Hours) Vital Signs Temp Pulse Pulse Resp BP Pulse Ox O2 Del Method 05/05/24 15:07 36.3 C L 54 L 18 120/79 97 Room Air 05/05/24 15:00 53 L 05/05/24 11:33 36.4 C L 49 L 18 128/81 94 Room Air 05/05/24 07:26 36.3 C L 51 L 18 135/84 95 Room Air 05/05/24 07:00 51 L all noted and reviewed including below
[2024-05-05 20:43] VITALS: RESP 20
[2024-05-06 08:40] LABS: Albumin Globulin Ratio 0.9 (0.9-2); Albumin Level 3.4 gm/dl (3.4-5.0); BUN Creatinine Ratio 20.7 (10-20); Bilirubin,Total 0.6 mg/dl (0.2-1.0); Calcium 9.2 mg/dl (8.6-10.3); Creatinine Clr Calc Pharmacy 104.3 ml/min; Globulin 3.8 gm/dl (2.5-4.0); Magnesium 1.6 mg/dl (1.7-2.4); Phosphorus 3.9 mg/dl (2.5-4.9); Potassium 4.1 mmol/L (3.5-5.1); Total Protein 7.2 gm/dl (6.0-8.3)
[2024-05-06] MEDS: ACETAMINOPHEN 500 MG TAB PO PRN (08:44)
[2024-05-06 11:24] VITALS: BP 124/78; TEMP 97.7; O2SAT 94
[2024-05-06] MEDS: chlordiazePOXIDE HCl 5 MG CAP PO SCH (12:10)
--- NOTE | 2024-05-06 15:27 | Discharge Summary ---
Discharge Summary Date of Service May 06, 2024 Principal Dx & Hospital Course #1 = Principal Diagnosis (1) Alcohol withdrawal: Per previous hospitalist notes with addendum: 48-year-old male with past medical history significant for pancreatic cyst, sec ondary esophageal varices without bleeding, alcoholic cirrhosis of liver with ascites, chronic cholecystitis, coagulopathy, macrocytic anemia, history of biliary colic, ongoing alcoholism presents with alcohol withdrawal. Patient was recently in the hospital for alcohol withdrawal. Patient states he was drinking again after discharge. Today he drank 12 beers. He wanted to stop drinking so he came to the hospital. [place]. Received Valium in the ER. Hemodynamics are okay. Denies any headache. No dizziness. Has some blurred vision. No runny nose or sore throat. Has some nausea. No vomiting. Patient states having on and off chest pain for last 1 week. The chest pain comes on its own. Currently no chest pain. Denies shortness of breath. No abdominal pain. Normal bowel and bladder movements. Alcohol withdrawal History of alcohol withdrawal seizures several years ago -continue Librium protocol with IV Ativan as needed -Continue home gabapentin -Thiamine and folic acid and multivitamin -Evaluated by psych service,start naltrexone 50 mg PO daily, appreciate psych input Plan to transition to monthly shots as an outpatient care of addiction medicine specialist, patient states he has follow-up scheduled with them -is starting outpatient alcohol cessation therapy on the 05/06 Continually improved with Librium protocol and initiation of naltrexone and sertraline per psych recommendations Discharge plan: 1 dose of Librium 50 mg to be taken in the evening of discharge today Sertraline 50 mg p.o. daily Naltrexone 50 mg p.o. daily-Per psych, transition to monthly shots as an outpatient care of addiction medicine specialist Alcoholic Cirrhosis with Ascites Esophageal varices -Most from alcoholism -LFTs improved -Decrease nadolol from 20 mg to 10 mg daily as patient was noted to have bradycardia in the 50s, monitor heart rate -Continue Lasix and spironolactone with potassium and magnesium supplements -Follow-up with GI History of anxiety -On buspirone -appreciate psych input, started sertraline 50 mg daily Chronic cholecystitis O-n ursodiol. History of vitamin D deficiency -continue supplements Disposition Discharge to home PCP follow-up in 1 week Follow-up with outpatient alcohol cessation program, addiction medicine specialist Notes For Next Care Provider Nadolol decreased from 20 mg to 10 mg daily to prevent bradycardia as patient was having heart rate in the 50s while admitted Monitor heart rate Please refer to accompanying hospital discharge summary for further details. Medication Changes From Visit Librium-1 more dose for this evening for alcohol withdrawal Naltrexone-for alcohol cessation Sertraline-for anxiety Thiamine, folate, multivitamins-supplements for alcohol withdrawal Admission HPI Per Admitting Provider 48-year-old male with past medical history significant for pancreatic cyst, secondary esophageal varices without bleeding, alcoholic cirrhosis of liver with ascites, chronic cholecystitis, coagulopathy, macrocytic anemia, history of biliary colic, ongoing alcoholism presents with alcohol withdrawal. Patient was recently in the hospital for alcohol withdrawal. Patient states he was drinking again after discharge. Today he drank 12 beers. He wanted to stop drinking so he came to the hospital. [place]. Received Valium in the ER. Hemodynamics are okay. Denies any headache. No dizziness. Has some blurred vision. No runny nose or sore throat. Has some nausea. No vomiting. Patient states having on and off chest pain for last 1 week. The chest pain comes on its own. Currently no chest pain. Denies shortness of breath. No abdominal pain. Normal bowel and bladder movements. Past medical history. As mentioned above Past surgical history. Cologuard. EGD. ERCP with stone removal. Tonsillectomy. Social history. Snuff tobacco 1 can every 2 weeks. Heavy alcohol use. No drug use. Family history. Mother has asthma. Diabetes. Stroke. Father had prostate cancer. Stroke. Admission Exam Per Admitting Provider General- Not in distress.shaky Head- atraumatic Eyes- PERRL. ENT- oropharynx clear Neck- supple, no JVD. Lungs- clear to auscultation no wheezing or crackles Heart- regular rate and rhythm; no murmur, no gallop. Abdomen- normal bowel sounds, soft, nontender, no distension Extremities- no pretibial edema, no erythema seen Neuro- alert, oriented PERRL, no facial palsy; no dysarthria; moves extremities Discharge Exam General- oriented x 3, not in distress, speaks in sentences with no effort or accessory muscle use Eyes- anicteric Neck- no JVD Lungs- clear breath sounds bilaterally, no rales/wheezes Heart- normal rate, regular rhythm; no murmurs Abdomen- normal bowel sounds, nondistended, soft, nontender Extremities- no pretibial edema, no calf tenderness No tremors Neuro- alert, oriented x 3; no gross focal neurologic deficits Skin- warm & dry Updated Medication List Medication Instructions Recorded Confirmed Type nadolol 20 mg tablet 20 mg PO HS 06/10/18 05/03/24 History ursodiol 300 mg capsule 300 mg PO BID 06/10/18 05/03/24 History furosemide 20 mg tablet 20 mg PO QAM 11/14/22 05/03/24 History spironolactone 25 mg tablet 25 mg PO QAM 11/14/22 05/03/24 History folic acid 1 mg tablet 1 mg PO QAM #30 tabs 06/06/23 05/03/24 Rx pantoprazole 40 mg tablet,delayed 40 mg PO QAM 08/01/23 05/03/24 History release cholecalciferol (vitamin D3) 125 125 mcg PO QAM 02/29/24 05/03/24 History mcg (5,000 unit) tablet (Vitamin D3) magnesium chloride 64 mg 64 mg PO [facility] 02/29/24 05/03/24 History (magnesium chloride) tablet,delayed release (Mag 64) gabapentin 300 mg capsule 600 mg (2 x 300 mg) PO TID 30 days 03/05/24 05/03/24 Rx #180 caps buspirone 5 mg tablet 5 mg PO [facility] 04/28/24 05/03/24 History calcium carbonate 600 mg PO DAILY 04/28/24 05/03/24 History ferrous sulfate 325 mg (65 mg 325 mg PO QAM 04/28/24 05/03/24 History iron) tablet potassium chloride 20 mEq 20 meq PO AMPM 04/28/24 05/03/24 History tablet,extended release(part/cryst) ondansetron 4 mg disintegrating 4 mg PO DAILY PRN nausea and 04/30/24 05/03/24 Rx tablet vomiting 30 days #30 tabs lorazepam 1 mg tablet 0.5 mg PO UD PRN ALCOHOL WITHDRAWL 05/03/24 05/03/24 History chlordiazepoxide HCl 5 mg capsule 5 mg PO DAILY #1 cap 05/06/24 Rx multivitamin with folic acid 400 1 tab PO QAM #30 tabs 05/06/24 Rx mcg tablet (Daily-Tate (with folic acid)) naltrexone 50 mg tablet 50 mg PO DAILY 30 days #30 tabs 05/06/24 Rx sertraline 50 mg tablet 50 mg PO QAM 30 days #30 tabs 05/06/24 Rx thiamine HCl (vitamin B1) 100 mg 100 mg PO QAM 10 days #10 tabs 05/06/24 Rx tablet Hospital Stay Data Consultations 05/03/24 02:43 ED Decision to Admit Stat 05/03/24 10:53 Consult Psychiatry Routine Pending Results Patient Have Any Pending Studies at Discharge: No Discharge Instructions Given to Patient (Per Discharging Provider) PLEASE REFER TO YOUR NEW MEDICATION LIST AND FOLLOW INSTRUCTIONS CAREFULLY. YOUR NEW MEDICATIONS INCLUDE: Librium-1 more dose for this evening for alcohol withdrawal Naltrexone-for alcohol cessation Sertraline-for anxiety Thiamine, folate, multivitamins-supplements for alcohol withdrawal Reduce your nadolol from 20 mg to 10 mg to prevent low heart rate. Please take your medications carefully, only as directed. PLEASE CALL YOUR PRIMARY CARE PHYSICIAN OR RETURN TO THE ER IF WITH WORSENING OF SYMPTOMS, INCLUDING Tremors, shaking, sweating, confusion, hallucinations, seizures, etc. FOLLOW UP WITH PRIMARY CARE PHYSICIAN In 1 week. Enroll with your outpatient alcohol cessation program as soon as possible. Follow-up with your addiction medicine specialist for continuation of naltrexone management including prescription. Absolutely no driving if you decide to drink alcohol again. Total Time Total Time Spent Total Time Spent (In Minutes): 45 minutes
[2024-05-06 15:49] VITALS: PULSE 64
[2024-05-06] MEDS ORDERED: nadoloL 40 MG TAB PO SCH (21:00)
== END 2024-05-06 17:03 | disposition home or self-care (01) | DRG 897 ==
LOC: ED 00:57 → SUATTDRO 03:40 → 2N 03:40

== ENCOUNTER 2024-10-27 17:53 | Inpatient (IN) ==
--- NOTE | 2024-10-27 18:27 | Emergency Department Note ---
History of Present Illness General Chief complaint: Swelling/Edema to Extremity Stated complaint: GOUT BOTH LEGS Time Seen by Provider: 10/27/24 18:15 History of Present Illness This is a 49-year-old male that presents to the emergency department via private vehicle with complaints of "gout of both legs". The patient notes he believes he is experiencing gout. He notes about 4 days ago he began with pain in the lower extremities, and notes bilateral first toes as well as bilateral ankles and now left knee are painful. He notes trouble walking secondary to the pain. He denies any trauma, injury, fevers or chills. No nausea or vomiting. The patient does note a history of gout previously but never in this many joints at once. The patient denies any recent tick bites. Patient also lowers the collar of his shirt and points to an abnormality to the left anterior chest and notes this skin abnormality has been ongoing for about a week as well. Patient notes chewing tobacco use, no smoking. Patient also notes minimal alcohol. Home Medications Medication Instructions Recorded Confirmed Type ursodiol 300 mg capsule 300 mg PO BID 06/10/18 10/27/24 History furosemide 20 mg tablet 20 mg PO QAM 11/14/22 10/27/24 History spironolactone 25 mg tablet 25 mg PO QAM 11/14/22 10/27/24 History folic acid 1 mg tablet 1 mg PO QAM #30 tabs 06/06/23 10/27/24 Rx pantoprazole 40 mg tablet,delayed 40 mg PO QAM 08/01/23 10/27/24 History release magnesium chloride 64 mg 64 mg PO AMHS 02/29/24 10/27/24 History (magnesium chloride) tablet,delayed release (Mag 64) buspirone 5 mg tablet 5 mg PO AMHS 04/28/24 10/27/24 History potassium chloride 20 mEq 20 meq PO QAM 04/28/24 10/27/24 History tablet,extended release(part/cryst) gabapentin 300 mg capsule 300 mg PO TID 10/27/24 10/27/24 History nadolol 20 mg tablet 20 mg PO HS 10/27/24 10/27/24 History zolpidem 5 mg tablet 5 mg PO HS PRN Insomnia 10/27/24 10/27/24 History Allergies Allergy/AdvReac Type Severity Reaction Status Date / Time aspirin AdvReac Mild BLOODY NOSE Verified 10/27/24 20:55 Past Med/Surg History Problem List (Updated 10/27/24 @ 23:53 by Rui Noble PA-C) Effusion, left knee (Acute) Knee pain, left (Acute) Bilateral ankle pain (Acute) Pain in toes of both feet (Acute) History of gout (Acute) Multiple joint pain (Acute) Abscess of chest wall (Acute) Acute gout Anxiety Alcohol use disorder, moderate, dependence Alcohol withdrawal (Acute) Alcohol withdrawal syndrome (Acute) Alcohol dependence (Acute) Electrolyte abnormality (Acute) Hypokalemia (Acute) Alcohol abuse (Acute) Prolonged QT interval (Acute) Alcoholic cirrhosis Acute hypokalemia (Acute) Nausea & vomiting (Acute) Thrombocytopenia (Acute) Transaminitis (Acute) Hypomagnesemia (Acute) Alcoholic hepatitis (Acute) Esophageal varices Transaminitis (Acute) Medical History Alcohol withdrawal Abrasion of finger Fall Alcohol intoxication Alcohol withdrawal Alcohol withdrawal Cholecystitis Choledocholithiasis Depression UGIB (upper gastrointestinal bleed) Thrombocytopenia Ascites Alcohol abuse Alcoholic cirrhosis of liver Esophageal varices Portal hypertension History of macrocytic anemia History of alcohol abuse Surgical History History of esophagogastroduodenoscopy (EGD) Including procedures for esophageal varices banding History of tonsillectomy Family History Mother Diabetes Father Prostate cancer Other No family history of adverse response to anesthesia Social History Smoking Status: Never smoker Tobacco Type: Smokeless Tobacco (Dip or Chew) Second Hand Exposure: Yes; Do You Dip or Chew Tobacco: Yes (1 can per week); Hx Alcohol Use: Yes Alcohol type: hard liquor Hx Substance Use: No Preferred Language: Mauritian Communication Ability: Effective Professor Of Environmental Studies Required: No Beliefs That Will Affect Care: None Current Living Situation: Parent Current Living Situation Comment: lives with parents Other Information That Helps Us Care for You: No Feels Safe at Home: Yes Safety Concerns: Feels Safe At This Time Assistive Devices: Walker Review of Systems A total of 10 systems reviewed and were otherwise negative Physical Exam Vital Signs Vital Signs - 24 hr 10/27/24 17:56 10/27/24 18:15 10/27/24 18:55 Temperature 37.2 C Temperature Source Temporal Artery Scan Pulse Rate 97 H 95 H Pulse Rate [Apical] 93 H Respiratory Rate 17 20 Respiratory Effort / Characteristics Non-Labored Spontaneous Respiratory Depth Normal Respiratory Pattern Regular Blood Pressure 142/88 H Blood Pressure [Left Arm] 145/90 H Blood Pressure Mean 106 Blood Pressure Mean [Left Arm] 108 Blood Pressure Position Sitting Pulse Oximetry 99 97 Oxygen Delivery Method Room Air Room Air Sepsis Recent Fever Within 48 Hours No Sepsis New/Unexplained Change in Mental Status No Sepsis Action Taken by Nursing No Action Required 10/27/24 20:32 10/27/24 20:38 10/27/24 21:30 Temperature Temperature Source Pulse Rate 95 H 85 Pulse Rate [Apical] Respiratory Rate 22 20 Respiratory Effort / Characteristics Respiratory Depth Respiratory Pattern Blood Pressure 144/85 H 136/87 Blood Pressure [Left Arm] Blood Pressure Mean 106 96 Blood Pressure Mean [Left Arm] Blood Pressure Position Pulse Oximetry 95 95 95 Oxygen Delivery Method Room Air Room Air Room Air Sepsis Recent Fever Within 48 Hours Sepsis New/Unexplained Change in Mental Status Sepsis Action Taken by Nursing VITAL SIGNS - Vital signs and nursing notes were reviewed. Stable and afebrile. GENERAL - 49-year-old male appearing his stated age who is in no acute distress. Communicates well with provider and answers questions appropriately. SKIN -there is erythema and increased warmth to the bilateral first MTP joints as well as the left greater than right ankle and left knee. There is also fluctuant structure with erythema to the left anterior chest wall. HEAD - NC/AT. NECK - No nuchal rigidity. LUNGS - CTA CARDIAC - RRR EXTREMITIES - No clubbing or peripheral cyanosis. There is tenderness overlying the bilateral first MTP joints, bilateral ankles left greater than right and left knee. Left knee effusion noted on exam. No bony tenderness. +5/5 strength noted in UE/LE bilaterally. NEUROLOGIC - Cranial nerves II through XII grossly intact. Sensory intact to light touch throughout the extremities without deficit. PSYCH -alert, oriented and pleasant on exam. Course Administered Medications Discontinued Medications Hydromorphone HCl (Hydromorphone Inj 0.5 Mg/0.5 Ml Syr) 0.5 mg IV NOW STA Stop: 10/27/24 20:09 Last Admin: 10/27/24 20:33 Dose: 0.5 mg Documented By: GELY Ceftriaxone Sodium (Rocephin) 2,000 mg in 50 mls @ 100 mls/hr IV NOW STA Stop: 10/27/24 20:37 Last Infusion: 10/27/24 21:08 Dose: Infused Documented By: Admin: 10/27/24 20:38 Dose: 100 mls/hr Documented By: GELY Morphine Sulfate (Morphine Sulfate 2 Mg/Ml Carp) 2 mg IV NOW STA Stop: 10/27/24 18:53 Last Admin: 10/27/24 18:57 Dose: 2 mg Documented By: GELY Medical Decision Making Laboratory Data 10/27/24 18:09 10/27/24 18:09 Lab Results 10/27/24 10/27/24 10/27/24 Range/Units 18:09 18:35 18:57 WBC 9.57 (4.8-10.8) K/ul RBC 5.32 (4.70-6.10) M/uL Hgb 16.4 (14.0-18.0) g/dl Hct 48.9 (42.0-52.0) % MCV 91.9 (80.0-100.0) fL MCH 30.8 (25.0-34.0) pg MCHC 33.5 (32.0-36.0) g/dL RDW Std Deviation 46.4 H (36.4-46.3) fL RDW Coeff of Hang 13.6 (11.5-14.5) % Plt Count 199 (130-400) K/uL MPV 9.8 (9.4-12.4) fL Immature Gran % (Auto) 0.4 % Neut % (Auto) 71.2 % Lymph % (Auto) 13.4 % Rich % (Auto) 13.6 % Eos % (Auto) 0.9 % Baso % (Auto) 0.5 % Neut # (Auto) 6.81 H (1.40-6.50) K/uL Lymph # (Auto) 1.28 (1.20-3.40) K/uL Rich # (Auto) 1.30 H (0.11-0.59) K/uL Eos # (Auto) 0.09 (0.00-0.50) K/uL Baso # (Auto) 0.05 (0.00-0.20) K/uL Immature Gran # (Auto) 0.04 (0.01-0.20) K/uL ESR 63 H (0-20) mm/hr PT 12.4 H (9.0-12.0) Seconds INR 1.2 H (0.9-1.1) APTT 30 (21-31) Seconds PTT Ratio 1.1 Sodium 135 L (136-145) mmol/L Potassium 3.9 (3.5-5.1) mmol/L Chloride 101 (98-107) mmol/L Carbon Dioxide 26 (21-32) mmol/L Anion Gap 8 (3-11) BUN 10 (6-23) mg/dl Creatinine 0.93 (0.6-1.4) mg/dl Est Cr Clr Drug Dosing Not Reportable eGFR 99.42 BUN/Creatinine Ratio 10.8 (10-20) Glucose 159 H (70-99(Fasting)) mg/dl Lactate 1.4 (0.4-2.0) mmol/L Uric Acid 7.0 (2.6-7.2) mg/dl Calcium 9.4 (8.6-10.3) mg/dl Magnesium 1.9 (1.7-2.4) mg/dl Total Bilirubin 1.1 H (0.2-1.0) mg/dl AST 16 (13-39) U/L ALT 13 (7-52) U/L Alkaline Phosphatase 56 (34-104) U/L C-Reactive Protein 13.17 H (0-0.5) mg/dl Total Protein 9.1 H (6.0-8.3) gm/dl Albumin 4.1 (3.4-5.0) gm/dl Globulin 5.0 H (2.5-4.0) gm/dl Albumin/Globulin Ratio 0.8 L (0.9-2) Procalcitonin 0.10 (0-0.5) ng/ml Lyme Disease Screen Negative (Negative) Imaging Data Radiologist's Impression: Foot X-Ray 10/27/24 18:27 EXAM: XR foot RT min 3V routine CLINICAL HISTORY: Ankle/bilat 1st toe edema, pain TECHNIQUE: X-ray images of the right foot were obtained in anteroposterior (AP), lateral, and oblique projections. COMPARISON: No prior studies available for comparison. FINDINGS: Hallux valgus deformity with degenerative changes of the first metatarsophalangeal articulation. Associated cortical irregularities of the head of the metatarsal bone are noted with overlying medial soft tissue swelling. No evidence of fracture or dislocation. Inferior bony calcaneal spur with related calcifications. Achilles enstheopathy. Accessory navicular bone. IMPRESSION: 1. No evidence of acute fracture or dislocation. 2. Hallux valgus deformity with degenerative changes of the first metatarsophalangeal articulation. 3. Cortical irregularities of the head of the metatarsal bone are noted with overlying medial soft tissue swelling. 4. Inferior bony calcaneal spur with related calcifications. Disclaimer: A subtle bone abnormality or fracture may not be readily apparent on X-rays, thus clinical correlation and further imaging including follow-up CT, MRI, or follow-up X-rays are advised as needed. Electronically signed by Igor Izquierdo 10-27-2024 8:20 PM Foot X-Ray 10/27/24 18:27 EXAM: XR foot LT min 3V routine CLINICAL HISTORY: Ankle/bilat 1st toe edema, pain. TECHNIQUE: X-ray images of the left foot were obtained in anteroposterior (AP), lateral, and oblique projections. COMPARISON: X-ray 11/07/2023 FINDINGS: Bone Structure: No evidence of fracture or dislocation. Mild hallux valgus deformity is noticed with mild degenerative changes involving the first metatarsophalangeal articulation associated with overlying soft tissue edema. Side note of small os naviculare. Incidental small benign looking sclerotic area at the 5th metatarsal head; bone island. Maintained other joint spaces. Inferior bony calcaneal spur with related plantar fascia calcifications. Achilles enstheopathy. IMPRESSION: 1. No evidence of acute fracture or dislocation, 2. Mild hallux valgus deformity is noticed with mild degenerative changes involving the first metatarsophalangeal articulation associated with overlying soft tissue edema. 3. Inferior bony calcaneal spur with related plantar fascia calcifications. 4. No significant interval changes since prior. Disclaimer: A subtle bone abnormality or fracture may not be readily apparent on X-rays, thus clinical correlation and further imaging including follow-up CT, MRI, or follow-up X-rays are advised as needed. Electronically signed by Igor Izquierdo 10-27-2024 8:17 PM Knee X-Ray 10/27/24 18:27 EXAM: XR knee LT 3V CLINICAL HISTORY: L knee pain, edema TECHNIQUE: X-ray images of the left knee were obtained in anteroposterior (AP), lateral, and sunrise/skyline (patellar) projections. COMPARISON: No prior studies available for comparison. FINDINGS: Bone Structure: No evidence of acute fractures or dislocations. Minimal marginal osteophytic lipping of the articular surfaces and patellar poles. Joint Spaces: Slightly narrowed medial tibiofemoral and patellofemoral joint spaces. Patella: Patella is normal in position and alignment. No evidence of patellar dislocation or subluxation. Soft Tissues: Effaced suprapatellar fat pad denoting joint effusion. IMPRESSION: 1. No evidence of acute fractures or dislocations. 2. Mild knee osteoarthritis. 3. Effaced suprapatellar fat pad denoting joint effusion. Disclaimer: A subtle bone abnormality or fracture may not be readily apparent on X-rays, thus clinical correlation and further imaging including follow-up CT, MRI, or follow-up X-rays are advised as needed. Electronically signed by Igor Izquierdo 10-27-2024 8:19 PM Soft Tissue Ultrasound 10/27/24 18:27 Left chest wall subcutaneous soft tissue ultrasound Technique: Grayscale and color Doppler ultrasound images of the subcutaneous soft tissue to left chest wall and the patient identified a concern No comparison Findings: There is an avascular multiloculated heterogeneous structure within the subcutaneous soft tissue consistent with an abscess within same. Impression Left chest wall abscess. Electronically signed by Ousmane Raygoza 10-27-2024 8:52 PM MDM Narrative Patient was seen and evaluated as above in room D01. Review was performed of triage nursing notes and vital signs. I did review pertinent previous visits and patient history. After obtaining a thorough history and physical examination the above work up was performed. Patient presents to us today for evaluation of multi joint pain. Bilateral MTP joints, bilateral ankles and left knee are involved. This is 5 joints. He believes this is gout. This may be gout, he denies any fevers or chills. He has a history of gout. However upon examination he does have a fluctuant erythematous structure to the left anterior chest. Options of care were discussed with the patient. IV access was established. Labs were drawn. There is no leukocytosis or concerning anemia. ESR and CRP are markedly elevated. Procalcitonin is detectable but within normal range. Lactate normal. Lyme screen negative. Uric acid is within normal range. This does not exclude gout. I did order IV antibiotics noting the fluctuant left anterior chest erythematous structure. Ultrasound of the area was performed and does appear to be potential abscess. X-rays were obtained of the lower extremity affected areas and no fractures noted. Joint effusion noted. The patient does have trouble walking noting the severity of the joint pain. He has multiple joints involved. IV analgesia also ordered. At this time noting the infected left anterior chest structure with 5 joints that are with edema, erythema and increased warmth I do believe that further evaluation and management in the inpatient setting is warranted with IV antibiotics pending blood cultures. Case discussed with the hospitalist service. Please refer to further documentation regarding his stay. I did consider bedside I&D of the left anterior chest wall abscess however will defer and allow antibiotics overnight noting the location and fair amount of overlying erythema. GCS: 15 In the evaluation and treatment of this patient the following differential diagnoses were entertained: Gout, septic arthritis, bacteremia, abscess, malignancy, among others. Impression & Plan Abscess of chest wall, Multiple joint pain, History of gout, Pain in toes of both feet, Bilateral ankle pain, Knee pain, left, Effusion, left knee Discharge Plan Visit Data Chief Complaint: Swelling/Edema to Extremity Stated Complaint: GOUT BOTH LEGS ED Provider: Ryan Dong ED Midlevel Provider: Rui Noble Discharge Problem: Abscess of chest wall, Multiple joint pain, History of gout, Pain in toes of both feet, Bilateral ankle pain, Knee pain, left, Effusion, left knee Patient Disposition: Admitted As Inpatient Condition: Good Discharge Instructions Interventions: ED Discharge Assessment Last Done: 10/27/24 22:44
[2024-10-27 18:37] LABS: Hematocrit (blood only) 48.9 % (42.0-52.0); Hemoglobin 16.4 g/dl (14.0-18.0); Immature Granulocytes # (auto) 0.04 K/uL (0.01-0.20); Immature Granulocytes % (auto) 0.4 %; Mean Corpuscular Hemoglobin 30.8 pg (25.0-34.0); Mean Corpuscular Volume 91.9 fL (80.0-100.0); Platelet Count 199 K/uL (130-400); RDW Standard Deviation 46.4 fL (36.4-46.3); Red Blood Count 5.32 M/uL (4.70-6.10); White Blood Count 9.57 K/ul (4.8-10.8)
[2024-10-27 18:49] LABS: Alanine Aminotransferase 13 U/L (7-52); Albumin Globulin Ratio 0.8 (0.9-2); Alkaline Phosphatase 56 U/L (34-104); Anion Gap 8 (3-11); Bilirubin,Total 1.1 mg/dl (0.2-1.0); Blood Urea Nitrogen 10 mg/dl (6-23); Calcium 9.4 mg/dl (8.6-10.3); Carbon Dioxide 26 mmol/L (21-32); Chloride 101 mmol/L (98-107); Globulin 5.0 gm/dl (2.5-4.0); Glucose 159 mg/dl (70-99(Fasting)); Magnesium 1.9 mg/dl (1.7-2.4); Potassium 3.9 mmol/L (3.5-5.1); Sodium 135 mmol/L (136-145); Total Protein 9.1 gm/dl (6.0-8.3); Uric Acid 7.0 mg/dl (2.6-7.2)
[2024-10-27] MEDS: MoRPHine SULFATE 2 MG/ML CARP IV STA (18:57)
[2024-10-27 19:08] LABS: INR 1.2 (0.9-1.1); Partial Thromboplastin Time 30 Seconds (21-31); Prothrombin Time 12.4 Seconds (9.0-12.0)
--- NOTE | 2024-10-27 20:19 | XRay Report ---
EXAM: XR foot LT min 3V routine CLINICAL HISTORY: Ankle/bilat 1st toe edema, pain. TECHNIQUE: X-ray images of the left foot were obtained in anteroposterior (AP), lateral, and oblique projections. COMPARISON: X-ray 11/07/2023 FINDINGS: Bone Structure: No evidence of fracture or dislocation. Mild hallux valgus deformity is noticed with mild degenerative changes involving the first metatarsophalangeal articulation associated with overlying soft tissue edema. Side note of small os naviculare. Incidental small benign looking sclerotic area at the 5th metatarsal head; bone island. Maintained other joint spaces. Inferior bony calcaneal spur with related plantar fascia calcifications. Achilles enstheopathy. IMPRESSION: 1. No evidence of acute fracture or dislocation, 2. Mild hallux valgus deformity is noticed with mild degenerative changes involving the first metatarsophalangeal articulation associated with overlying soft tissue edema. 3. Inferior bony calcaneal spur with related plantar fascia calcifications. 4. No significant interval changes since prior. Disclaimer: A subtle bone abnormality or fracture may not be readily apparent on X-rays, thus clinical correlation and further imaging including follow-up CT, MRI, or follow-up X-rays are advised as needed. Electronically signed by Igor Izquierdo 10-27-2024 8:17 PM
--- NOTE | 2024-10-27 20:19 | XRay Report ---
EXAM: XR knee LT 3V CLINICAL HISTORY: L knee pain, edema TECHNIQUE: X-ray images of the left knee were obtained in anteroposterior (AP), lateral, and sunrise/skyline (patellar) projections. COMPARISON: No prior studies available for comparison. FINDINGS: Bone Structure: No evidence of acute fractures or dislocations. Minimal marginal osteophytic lipping of the articular surfaces and patellar poles. Joint Spaces: Slightly narrowed medial tibiofemoral and patellofemoral joint spaces. Patella: Patella is normal in position and alignment. No evidence of patellar dislocation or subluxation. Soft Tissues: Effaced suprapatellar fat pad denoting joint effusion. IMPRESSION: 1. No evidence of acute fractures or dislocations. 2. Mild knee osteoarthritis. 3. Effaced suprapatellar fat pad denoting joint effusion. Disclaimer: A subtle bone abnormality or fracture may not be readily apparent on X-rays, thus clinical correlation and further imaging including follow-up CT, MRI, or follow-up X-rays are advised as needed. Electronically signed by Igor Izquierdo 10-27-2024 8:19 PM
--- NOTE | 2024-10-27 20:20 | XRay Report ---
EXAM: XR foot RT min 3V routine CLINICAL HISTORY: Ankle/bilat 1st toe edema, pain TECHNIQUE: X-ray images of the right foot were obtained in anteroposterior (AP), lateral, and oblique projections. COMPARISON: No prior studies available for comparison. FINDINGS: Hallux valgus deformity with degenerative changes of the first metatarsophalangeal articulation. Associated cortical irregularities of the head of the metatarsal bone are noted with overlying medial soft tissue swelling. No evidence of fracture or dislocation. Inferior bony calcaneal spur with related calcifications. Achilles enstheopathy. Accessory navicular bone. IMPRESSION: 1. No evidence of acute fracture or dislocation. 2. Hallux valgus deformity with degenerative changes of the first metatarsophalangeal articulation. 3. Cortical irregularities of the head of the metatarsal bone are noted with overlying medial soft tissue swelling. 4. Inferior bony calcaneal spur with related calcifications. Disclaimer: A subtle bone abnormality or fracture may not be readily apparent on X-rays, thus clinical correlation and further imaging including follow-up CT, MRI, or follow-up X-rays are advised as needed. Electronically signed by Igor Izquierdo 10-27-2024 8:20 PM
[2024-10-27] MEDS: HYDROmorphone INJ 0.5 MG/0.5 ML SYR IV STA (20:33)
[2024-10-27] MEDS: cefTRIAXone SODIUM 2,000 MG/50 ML BAG IV STA (20:38)
--- NOTE | 2024-10-27 20:52 | Ultrasound Report ---
Left chest wall subcutaneous soft tissue ultrasound Technique: Grayscale and color Doppler ultrasound images of the subcutaneous soft tissue to left chest wall and the patient identified a concern No comparison Findings: There is an avascular multiloculated heterogeneous structure within the subcutaneous soft tissue consistent with an abscess within same. Impression Left chest wall abscess. Electronically signed by Ousmane Raygoza 10-27-2024 8:52 PM
--- NOTE | 2024-10-27 21:54 | History & Physical Report ---
Date of Service October 27, 2024 Assessment & Plan (1) Acute gout: Plan: 49-year-old male past medical history significant for pancreatic cyst, secondary esophageal varices without bleeding, alcoholic cirrhosis of liver with ascites, chronic cholecystitis, coagulopathy, macrocytic anemia, history of biliary colic, presents with bilateral ankle, bilateral big toe pain, left knee pain going on for last 4 days. Having pain while ambulating. While resting pain is under control currently. Also noticed a lump on his left chest wall since about a week. He thinks it is ingrown hair. Denies any fevers. Denies chest pain or shortness of breath. Denies cough. No nausea or vomiting. No abdominal pain. Normal bowel and bladder movements. Denies any headache currently. No neck pain. No runny nose or sore throat. Patient has history of alcoholism. Per p atient currently not drinking that much. He is only drinking every 3 to 4 weeks. Last drink was about 3 weeks ago. Patient does not think that he will go through withdrawal. Hemodynamics are okay currently. Acute gout Patient presents with pain and erythematic changes in bilateral ankles and bilateral big toes and left knee going on for last 4 days Most likely acute gout involving multiple joints Will give a dose of IV Solu-Medrol 40 mg If confirmed patient may need steroid shots to the joints Monitor response to steroid Will consult orthopedics Left chest wall abscess Empiric Vanco and Zosyn N.p.o. after midnight Surgical consult History of alcoholism Patient says is not drinking regularly now. Currently drinking only every 3 or 4 weeks. Says last drink was 3 weeks ago. Patient does not think he will go through withdrawal. Thiamine, folic acid and multivitamins. IV Ativan as needed Close monitor Alcohol liver cirrhosis Continue nadolol, spironolactone Lasix and potassium supplement Getting gentle fluids Monitor for volume overload GERD Protonix History of anxiety Buspirone Chronic cholecystitis On ursodiol DVT prophylaxis SCDs Disposition Med/telemetry Full code. History of Present Illness Chief Complaint: Bilateral ankle and great toe and left knee pain Primary Care Provider: Michelle Borrego DO 49-year-old male past medical history significant for pancreatic cyst, secondary esophageal varices without bleeding, alcoholic cirrhosis of liver with ascites, chronic cholecystitis, coagulopathy, macrocytic anemia, history of biliary colic, presents with bilateral ankle, bilateral big toe pain, left knee pain going on for last 4 days. Having pain while ambulating. While resting pain is under control currently. Also noticed a lump on his left chest wall since about a week. He thinks it is ingrown hair. Denies any fevers. Denies chest pain or shortness of breath. Denies cough. No nausea or vomiting. No abdominal pain. Normal bowel and bladder movements. Denies any headache currently. No neck pain. No runny nose or sore throat. Patient has history of alcoholism. Per patient currently not drinking that much. He is only drinking every 3 to 4 weeks. Last drink was about 3 weeks ago. Patient does not think that he will go through withdrawal. Hemodynamics are okay currently. Past medical history. As mentioned above Past surgical history. Cologuard. EGD. ERCP with stone removal. Tonsillectomy. Social history. Snuff tobacco 1 can every 2 weeks. History of alcohol abuse. Currently states drinking only 3 to 4 weeks and when he drinks he drinks 4-5 shots of alcohol.. No drug use. Family history. Mother has asthma. Diabetes. Stroke. Father had prostate cancer. Stroke. Allergies Allergy/AdvReac Type Severity Reaction Status Date / Time aspirin AdvReac Mild BLOODY NOSE Verified 10/27/24 20:55 Home Medications Medication Instructions Recorded Confirmed Type ursodiol 300 mg capsule 300 mg PO BID 06/10/18 10/27/24 History furosemide 20 mg tablet 20 mg PO QAM 11/14/22 10/27/24 History spironolactone 25 mg tablet 25 mg PO QAM 11/14/22 10/27/24 History folic acid 1 mg tablet 1 mg PO QAM #30 tabs 06/06/23 10/27/24 Rx pantoprazole 40 mg tablet,delayed 40 mg PO QAM 08/01/23 10/27/24 History release magnesium chloride 64 mg 64 mg PO AMHS 02/29/24 10/27/24 History (magnesium chloride) tablet,delayed release (Mag 64) buspirone 5 mg tablet 5 mg PO AMHS 04/28/24 10/27/24 History potassium chloride 20 mEq 20 meq PO QAM 04/28/24 10/27/24 History tablet,extended release(part/cryst) gabapentin 300 mg capsule 300 mg PO TID 10/27/24 10/27/24 History nadolol 20 mg tablet 20 mg PO HS 10/27/24 10/27/24 History zolpidem 5 mg tablet 5 mg PO HS PRN Insomnia 10/27/24 10/27/24 History Past Med/Surg History Problem List (Updated 10/27/24 @ 23:53 by Rui Noble PA-C) Effusion, left knee (Acute) Knee pain, left (Acute) Bilateral ankle pain (Acute) Pain in toes of both feet (Acute) History of gout (Acute) Multiple joint pain (Acute) Abscess of chest wall (Acute) Acute gout Anxiety Alcohol use disorder, moderate, dependence Alcohol withdrawal (Acute) Alcohol withdrawal syndrome (Acute) Alcohol dependence (Acute) Electrolyte abnormality (Acute) Hypokalemia (Acute) Alcohol abuse (Acute) Prolonged QT interval (Acute) Alcoholic cirrhosis Acute hypokalemia (Acute) Nausea & vomiting (Acute) Thrombocytopenia (Acute) Transaminitis (Acute) Hypomagnesemia (Acute) Alcoholic hepatitis (Acute) Esophageal varices Transaminitis (Acute) Medical History Alcohol withdrawal Abrasion of finger Fall Alcohol intoxication Alcohol withdrawal Alcohol withdrawal Cholecystitis Choledocholithiasis Depression UGIB (upper gastrointestinal bleed) Thrombocytopenia Ascites Alcohol abuse Alcoholic cirrhosis of liver Esophageal varices Portal hypertension History of macrocytic anemia History of alcohol abuse Surgical History History of esophagogastroduodenoscopy (EGD) Including procedures for esophageal varices banding History of tonsillectomy Family History Mother Diabetes Father Prostate cancer Other No family history of adverse response to anesthesia Social History Smoking Status: Never smoker Tobacco Type: Smokeless Tobacco (Dip or Chew) Second Hand Exposure: Yes; Do You Dip or Chew Tobacco: Yes (1 can per week); Hx Alcohol Use: Yes Alcohol type: hard liquor Hx Substance Use: No Preferred Language: Guamanian Communication Ability: Effective Collection Manager Required: No Beliefs That Will Affect Care: None Current Living Situation: Parent Current Living Situation Comment: lives with parents Other Information That Helps Us Care for You: No Feels Safe at Home: Yes Safety Concerns: Feels Safe At This Time Assistive Devices: Walker Review of Systems Review of Systems: All systems reviewed & are unremarkable except as noted in HPI & below Physical Exam Physical Exam: General- Not in acute distress Head- atraumatic Eyes- PERRL. ENT- oropharynx clear Neck- supple, no JVD. Lungs- clear to auscultation no wheezing or crackles Heart- regular rate and rhythm; no murmur, no gallop. Abdomen- normal bowel sounds, soft, nontender, no distension Extremities- erythema and warm to palpation of b/l ankle and great toe. painful left knee movements Neuro- alert, oriented PERRL, no facial palsy; no dysarthria; moves extremities Results & Data Results & Data Vital Signs (Past 12 Hours) Vital Signs Temp Pulse Pulse Resp BP BP Pulse Ox 10/27/24 20:38 95 10/27/24 20:32 95 H 22 144/85 H 95 10/27/24 18:55 93 H 20 145/90 H 97 10/27/24 18:15 95 H 10/27/24 17:56 37.2 C 97 H 17 142/88 H 99 O2 Del Method 10/27/24 20:38 Room Air 10/27/24 20:32 Room Air 10/27/24 18:55 Room Air 10/27/24 18:15 10/27/24 17:56 Room Air Diagnostic Findings Laboratory Results WBC 9.57 K/ul (4.8-10.8) 10/27/24 18:09 RBC 5.32 M/uL (4.70-6.10) 10/27/24 18:09 Hgb 16.4 g/dl (14.0-18.0) 10/27/24 18:09 Hct 48.9 % (42.0-52.0) 10/27/24 18:09 MCV 91.9 fL (80.0-100.0) 10/27/24 18:09 MCH 30.8 pg (25.0-34.0) 10/27/24 18:09 MCHC 33.5 g/dL (32.0-36.0) 10/27/24 18:09 RDW Std Deviation 46.4 fL (36.4-46.3) H 10/27/24 18:09 RDW Coeff of Hang 13.6 % (11.5-14.5) 10/27/24 18:09 Plt Count 199 K/uL (130-400) 10/27/24 18:09 MPV 9.8 fL (9.4-12.4) 10/27/24 18:09 Immature Gran % (Auto) 0.4 % 10/27/24 18:09 Neut % (Auto) 71.2 % 10/27/24 18:09 Lymph % (Auto) 13.4 % 10/27/24 18:09 Stephens % (Auto) 13.6 % 10/27/24 18:09 Eos % (Auto) 0.9 % 10/27/24 18:09 Baso % (Auto) 0.5 % 10/27/24 18:09 Neut # (Auto) 6.81 K/uL (1.40-6.50) H 10/27/24 18:09 Lymph # (Auto) 1.28 K/uL (1.20-3.40) 10/27/24 18:09 Stephens # (Auto) 1.30 K/uL (0.11-0.59) H 10/27/24 18:09 Eos # (Auto) 0.09 K/uL (0.00-0.50) 10/27/24 18:09 Baso # (Auto) 0.05 K/uL (0.00-0.20) 10/27/24 18:09 Immature Gran # (Auto) 0.04 K/uL (0.01-0.20) 10/27/24 18:09 ESR 63 mm/hr (0-20) H 10/27/24 18:09 PT 12.4 Seconds (9.0-12.0) H 10/27/24 18:09 INR 1.2 (0.9-1.1) H 10/27/24 18:09 APTT 30 Seconds (21-31) 10/27/24 18:09 PTT Ratio 1.1 10/27/24 18:09 Sodium 135 mmol/L (136-145) L 10/27/24 18:09 Potassium 3.9 mmol/L (3.5-5.1) 10/27/24 18:09 Chloride 101 mmol/L (98-107) 10/27/24 18:09 Carbon Dioxide 26 mmol/L (21-32) 10/27/24 18:09 Anion Gap 8 (3-11) 10/27/24 18:09 BUN 10 mg/dl (6-23) 10/27/24 18:09 Creatinine 0.93 mg/dl (0.6-1.4) 10/27/24 18:09 Est Cr Clr Drug Dosing Not Reportable 10/27/24 18:09 eGFR 99.42 10/27/24 18:09 BUN/Creatinine Ratio 10.8 (10-20) 10/27/24 18:09 Glucose 159 mg/dl (70-99(Fasting)) H 10/27/24 18:09 Lactate 1.4 mmol/L (0.4-2.0) 10/27/24 18:35 Uric Acid 7.0 mg/dl (2.6-7.2) 10/27/24 18:09 Calcium 9.4 mg/dl (8.6-10.3) 10/27/24 18:09 Magnesium 1.9 mg/dl (1.7-2.4) 10/27/24 18:09 Total Bilirubin 1.1 mg/dl (0.2-1.0) H 10/27/24 18:09 AST 16 U/L (13-39) 10/27/24 18:09 ALT 13 U/L (7-52) 10/27/24 18:09 Alkaline Phosphatase 56 U/L (34-104) 10/27/24 18:09 C-Reactive Protein 13.17 mg/dl (0-0.5) H 10/27/24 18:09 Total Protein 9.1 gm/dl (6.0-8.3) H 10/27/24 18:09 Albumin 4.1 gm/dl (3.4-5.0) 10/27/24 18:09 Globulin 5.0 gm/dl (2.5-4.0) H 10/27/24 18:09 Albumin/Globulin Ratio 0.8 (0.9-2) L 10/27/24 18:09 Procalcitonin 0.10 ng/ml (0-0.5) 10/27/24 18:09 Lyme Disease Screen Negative (Negative) 10/27/24 18:57 Impressions Foot X-Ray 10/27/24 18:27 EXAM: XR foot RT min 3V routine CLINICAL HISTORY: Ankle/bilat 1st toe edema, pain TECHNIQUE: X-ray images of the right foot were obtained in anteroposterior (AP), lateral, and oblique projections. COMPARISON: No prior studies available for comparison. FINDINGS: Hallux valgus deformity with degenerative changes of the first metatarsophalangeal articulation. Associated cortical irregularities of the head of the metatarsal bone are noted with overlying medial soft tissue swelling. No evidence of fracture or dislocation. Inferior bony calcaneal spur with related calcifications. Achilles enstheopathy. Accessory navicular bone. IMPRESSION: 1. No evidence of acute fracture or dislocation. 2. Hallux valgus deformity with degenerative changes of the first metatarsophalangeal articulation. 3. Cortical irregularities of the head of the metatarsal bone are noted with overlying medial soft tissue swelling. 4. Inferior bony calcaneal spur with related calcifications. Disclaimer: A subtle bone abnormality or fracture may not be readily apparent on X-rays, thus clinical correlation and further imaging including follow-up CT, MRI, or follow-up X-rays are advised as needed. Electronically signed by Igor Izquierdo 10-27-2024 8:20 PM Knee X-Ray 10/27/24 18:27 EXAM: XR knee LT 3V CLINICAL HISTORY: L knee pain, edema TECHNIQUE: X-ray images of the left knee were obtained in anteroposterior (AP), lateral, and sunrise/skyline (patellar) projections. COMPARISON: No prior studies available for comparison. FINDINGS: Bone Structure: No evidence of acute fractures or dislocations. Minimal marginal osteophytic lipping of the articular surfaces and patellar poles. Joint Spaces: Slightly narrowed medial tibiofemoral and patellofemoral joint spaces. Patella: Patella is normal in position and alignment. No evidence of patellar dislocation or subluxation. Soft Tissues: Effaced suprapatellar fat pad denoting joint effusion. IMPRESSION: 1. No evidence of acute fractures or dislocations. 2. Mild knee osteoarthritis. 3. Effaced suprapatellar fat pad denoting joint effusion. Disclaimer: A subtle bone abnormality or fracture may not be readily apparent on X-rays, thus clinical correlation and further imaging including follow-up CT, MRI, or follow-up X-rays are advised as needed. Electronically signed by Igor Izquierdo 10-27-2024 8:19 PM Soft Tissue Ultrasound 10/27/24 18:27 Left chest wall subcutaneous soft tissue ultrasound Technique: Grayscale and color Doppler ultrasound images of the subcutaneous soft tissue to left chest wall and the patient identified a concern No comparison Findings: There is an avascular multiloculated heterogeneous structure within the subcutaneous soft tissue consistent with an abscess within same. Impression Left chest wall abscess. Electronically signed by Ousmane Raygoza 10-27-2024 8:52 PM Code Status & VTE Plan VTE Prophylaxis Plan VTE Prophylaxis will be ordered: Yes
[2024-10-27] MEDS ORDERED: POLYETHYLENE (MIRALAX) 17 GM PACK PO PRN (23:10)
[2024-10-27] MEDS ORDERED: NITROGLYCERIN SL 0.4 MG/TAB TAB SL PRN (23:10)
[2024-10-27] MEDS ORDERED: VANCOMYCIN CONSULT ACTIVE PRN (23:10)
[2024-10-27] MEDS: THIAMINE HCL 100 MG in SYRINGE 9 ML IV STA (23:44)
[2024-10-27] MEDS: SODIUM CHLORIDE 0.9% 1,000 ML IV SCH (23:45)
[2024-10-27] MEDS: Patient's HEIGHT &/or WEIGHT Needed STA (23:45)
[2024-10-28] MEDS: VANCOMYCIN HCL 1,750 MG in SODIUM CHLORIDE 0.9% 500 ML IV STA (00:08)
[2024-10-28] MEDS: PIPERACILLIN/TAZOBACTAM 4.5 GM/100 ML BAG IV STA (00:09)
[2024-10-28] MEDS: HYDROmorphone INJ 0.5 MG/0.5 ML SYR IV PRN (03:11)
[2024-10-28] MEDS: PIPERACILLIN/TAZOBACTAM 4.5 GM/100 ML BAG IV SCH (06:01)
[2024-10-28] MEDS: VANCOMYCIN HCL 1,250 MG in SODIUM CHLORIDE 0.9% 250 ML IV SCH (08:00)
[2024-10-28] MEDS: FUROSEMIDE 20 MG TAB PO SCH (08:44)
[2024-10-28] MEDS: GABAPENTIN 300 MG CAP PO SCH (08:44)
[2024-10-28] MEDS: SPIRONOLACTONE 25 MG TAB PO SCH (08:44)
[2024-10-28] MEDS: busPIRone 5 MG TAB PO SCH (08:44)
[2024-10-28] MEDS: THIAMINE HCL 100 MG in SYRINGE 9 ML IV SCH (08:44)
[2024-10-28] MEDS: FOLIC ACID 1 MG TAB PO SCH (08:44)
[2024-10-28] MEDS: POTASSIUM CHLORIDE CRTAB 20 MEQ TABCR PO SCH (08:44)
[2024-10-28] MEDS: CEROVITE ADV FORMULA TAB PO SCH (08:44)
[2024-10-28] MEDS: MAGNESIUM CHLORIDE W/CALCIUM 64MG DELAYED REL TAB PO SCH (08:44)
--- NOTE | 2024-10-28 08:46 | Surgery Consultation ---
Date of Consultation October 28, 2024 Assessment & Plan (1) Abscess of chest wall: 49 yo male admitted for acute gout with a left chest wall abscess for 1.5 weeks. started as small cyst and increased in size and became painful. No fevers or chills. Ultrasound with avascular multiloculated collection consistent with abscess. Will plan for I&D at bedside under local anesthetic. Discussesd with Dr. jimenez who agrees with above. Supervising Physician Co-Signing Physician Notes I have seen and examined the patient agree with the above assessment plan. In brief, he has a left chest wall abscess which is fluctuant and tender. The a bscess was drained, and this is dictated in a separate operative note. The packing can removed tomorrow. Will continue to follow. History of Present Illness Reason for Consultation: Left chest wall abscess Requesting Physician: MD Ian Attending Physician: Ethan Robles MD History of Present Illness Mr. Guillory is a 49 yo male with history of alcohol use disorder, anxiety, thrombocytopenia, alcoholic hepatitis, esophageal varies, gout who presented to ED with biliaeral ankle, left knee pain, and acute gout. Was also found to have abscess of left chest wall. He states he noticed a small cyst of the left chest wall about 1.5 weeks ago. Started small and increased in size. Very tender at first but not so much now. Was going to go to urgent care on Friday to get it drained. History of prior cyst removal of back of neck. No fevers or chills. Allergies Allergy/AdvReac Type Severity Reaction Status Date / Time aspirin AdvReac Mild BLOODY NOSE Verified 10/27/24 20:55 Home Medications Medication Instructions Recorded Confirmed Type ursodiol 300 mg capsule 300 mg PO BID 06/10/18 10/27/24 History furosemide 20 mg tablet 20 mg PO QAM 11/14/22 10/27/24 History spironolactone 25 mg tablet 25 mg PO QAM 11/14/22 10/27/24 History folic acid 1 mg tablet 1 mg PO QAM #30 tabs 06/06/23 10/27/24 Rx pantoprazole 40 mg tablet,delayed 40 mg PO QAM 08/01/23 10/27/24 History release magnesium chloride 64 mg 64 mg PO AMHS 02/29/24 10/27/24 History (magnesium chloride) tablet,delayed release (Mag 64) buspirone 5 mg tablet 5 mg PO AMHS 04/28/24 10/27/24 History potassium chloride 20 mEq 20 meq PO QAM 04/28/24 10/27/24 History tablet,extended release(part/cryst) gabapentin 300 mg capsule 300 mg PO TID 10/27/24 10/27/24 History nadolol 20 mg tablet 20 mg PO HS 10/27/24 10/27/24 History zolpidem 5 mg tablet 5 mg PO HS PRN Insomnia 10/27/24 10/27/24 History Patient History Medical History Alcohol withdrawal Abrasion of finger Fall Alcohol intoxication Alcohol withdrawal Alcohol withdrawal Cholecystitis Choledocholithiasis Depression UGIB (upper gastrointestinal bleed) Thrombocytopenia Ascites Alcohol abuse Alcoholic cirrhosis of liver Esophageal varices Portal hypertension History of macrocytic anemia History of alcohol abuse Surgical History History of esophagogastroduodenoscopy (EGD) Including procedures for esophageal varices banding History of tonsillectomy Family History Mother Diabetes Father Prostate cancer Other No family history of adverse response to anesthesia Social History Smoking Status: Never smoker Tobacco Type: Smokeless Tobacco (Dip or Chew) Second Hand Exposure: Yes; Do You Dip or Chew Tobacco: Yes (1 can per week); Hx Alcohol Use: Yes Alcohol type: hard liquor Hx Substance Use: No Preferred Language: Slovak Communication Ability: Effective Magnetometer Operator Required: No Beliefs That Will Affect Care: None Current Living Situation: Parent Current Living Situation Comment: lives with parents Other Information That Helps Us Care for You: No Feels Safe at Home: Yes Safety Concerns: Feels Safe At This Time Assistive Devices: Walker Review of Systems Review of Systems: All systems reviewed & are unremarkable except as noted in HPI & below Physical Exam Constitutional: WD/WN, vitals as above cooperative and comfortable; no acute distress and not ill appearing Respiratory: normal respiratory effort; no respiratory distress, no labored breathing and no retractions Chest (Breasts): Additional Comments: Left anterior chest there is about a 5 cm abscess with some ecchymosis of the chest wall. No significant induration. no drainage. slightly tender to palpation. Skin: no rashes, warm and dry Psychiatric: Orientation: alert and oriented x 3 Results & Data Vital Signs (Past 12 Hours) Vital Signs Temp Pulse Pulse Resp BP BP Pulse Ox 10/28/24 07:51 36.4 C L 56 L 16 121/83 95 10/28/24 07:25 54 L 10/28/24 03:19 36.4 C L 62 18 128/75 94 10/27/24 23:10 87 10/27/24 23:10 37.5 C 90 18 146/86 H 97 10/27/24 23:10 10/27/24 22:30 81 16 146/88 H 98 10/27/24 22:07 83 10/27/24 21:30 85 20 136/87 95 Pulse Ox O2 Del Method O2 Del Method 10/28/24 07:51 Room Air 10/28/24 07:25 10/28/24 03:19 Room Air 10/27/24 23:10 10/27/24 23:10 Room Air 10/27/24 23:10 97 Room Air 10/27/24 22:30 Room Air 10/27/24 22:07 10/27/24 21:30 Room Air Laboratory Results 10/27/24 10/27/24 10/27/24 Range/Units 18:57 18:35 18:09 WBC 9.57 (4.8-10.8) K/ul RBC 5.32 (4.70-6.10) M/uL Hgb 16.4 (14.0-18.0) g/dl Hct 48.9 (42.0-52.0) % MCV 91.9 (80.0-100.0) fL MCH 30.8 (25.0-34.0) pg MCHC 33.5 (32.0-36.0) g/dL RDW Std Deviation 46.4 H (36.4-46.3) fL RDW Coeff of Hang 13.6 (11.5-14.5) % Plt Count 199 (130-400) K/uL MPV 9.8 (9.4-12.4) fL Immature Gran % (Auto) 0.4 % Neut % (Auto) 71.2 % Lymph % (Auto) 13.4 % Graham % (Auto) 13.6 % Eos % (Auto) 0.9 % Baso % (Auto) 0.5 % Neut # (Auto) 6.81 H (1.40-6.50) K/uL Lymph # (Auto) 1.28 (1.20-3.40) K/uL Graham # (Auto) 1.30 H (0.11-0.59) K/uL Eos # (Auto) 0.09 (0.00-0.50) K/uL Baso # (Auto) 0.05 (0.00-0.20) K/uL Immature Gran # (Auto) 0.04 (0.01-0.20) K/uL ESR 63 H (0-20) mm/hr PT 12.4 H (9.0-12.0) Seconds INR 1.2 H (0.9-1.1) APTT 30 (21-31) Seconds PTT Ratio 1.1 Sodium 135 L (136-145) mmol/L Potassium 3.9 (3.5-5.1) mmol/L Chloride 101 (98-107) mmol/L Carbon Dioxide 26 (21-32) mmol/L Anion Gap 8 (3-11) BUN 10 (6-23) mg/dl Creatinine 0.93 (0.6-1.4) mg/dl Est Cr Clr Drug Dosing Not Reportable eGFR 99.42 BUN/Creatinine Ratio 10.8 (10-20) Glucose 159 H (70-99(Fasting)) mg/dl Lactate 1.4 (0.4-2.0) mmol/L Uric Acid 7.0 (2.6-7.2) mg/dl Calcium 9.4 (8.6-10.3) mg/dl Magnesium 1.9 (1.7-2.4) mg/dl Total Bilirubin 1.1 H (0.2-1.0) mg/dl AST 16 (13-39) U/L ALT 13 (7-52) U/L Alkaline Phosphatase 56 (34-104) U/L C-Reactive Protein 13.17 H (0-0.5) mg/dl Total Protein 9.1 H (6.0-8.3) gm/dl Albumin 4.1 (3.4-5.0) gm/dl Globulin 5.0 H (2.5-4.0) gm/dl Albumin/Globulin Ratio 0.8 L (0.9-2) Procalcitonin 0.10 (0-0.5) ng/ml Lyme Disease Screen Negative (Negative) Diagnostic Findings Left chest wall subcutaneous soft tissue ultrasound Technique: Grayscale and color Doppler ultrasound images of the subcutaneous soft tissue to left chest wall and the patient identified a concern No comparison Findings: There is an avascular multiloculated heterogeneous structure within the subcutaneous soft tissue consistent with an abscess within same. Impression Left chest wall abscess.
--- NOTE | 2024-10-28 08:47 | Procedure Note ---
Procedure Note Date of Service October 28, 2024 Procedure: left knee aspiration Indication: left knee effusion Procedure: After explanation of the x-ray findings and the diagnosis, prognosis and treatment options for left knee effusion, I explained the purpose of joint aspiration to the patient. The patient was agreeable to proceed. We timed out to confirm procedure, site, laterality. Anatomical landmarks palpated and identified. Procedure site cleaned with Betadine swab followed by alcohol swab. 10cc of 1% lidocaine was injected using sterile technique to the procedure site for local analgesia. The injection worked well and patient was very comfortable throughout the procedure. Following infiltration of lidocaine, again anatomic landmarks were palpated and identified. Procedure site cleaned with Betadine swab followed by alcohol swab. Using an 18-gauge needle the joint space was entered and aspiration was performed yielding approximately 25 cc of yellow, blood-tinged fluid. Needle was then removed and pressure applied to the procedure site followed by dressing. Patient tolerated procedure well. Findings: * 25cc blood-tinged synovial fluid, no purulence appreciated Plan: * Lab analysis including synovial fluid cell count, culture, and crystal analysis Coding Additional Codes Date of Service ([email or web address])
--- NOTE | 2024-10-28 08:56 | Orthopedic Consultation ---
Date of Service October 28, 2024 Assessment & Plan (1) Effusion, left knee: * Case/imaging reviewed and discussed with Dr Baxter * Recommend left knee joint aspiration for synovial fluid analysis, see procedure note * Fluid analysis pending, although fluid does not appear grossly infected * Pending lab results, would consider medical management of suspected gout flare * Would not initiate systemic steroid treatment at this time due to ongoing infection workup, but would be warranted pending synovial fluid analysis * Disposition: TBD * Daily treatment: Physical Therapy/ Occupational Therapy per protocol * Weight bearing status: WBAT * Pain control * Remainder care per primary team * Will continue to follow * UPDATE * Synovial analysis with WBC 25k consistent with inflammatory, (+) crystals * Findings consistent with gout * Recommend medical management, systemic steroids if not otherwise co ntraindicated, NSAIDs, ice * PCP/Rheum for half-way management (2) Multiple joint pain: * Polyarthralgia with pain to left knee, bilateral ankle, bilateral first MTP joints * History of gout * Left knee synovial analysis pending, low concern for joint infection at this time * Recommend rheumatology evaluation secondary to multiple joint involvement History of Present Illness Reason for Consultation: . Left knee effusion Requesting Physician: . Attending Physician: Ethan Robles MD .Patient is a 49y/o male with polyarthralgia including left knee, bilateral ankle, bilateral feet. PMH including gout, alcohol use disorder, prolonged QT, alcohol induced hepatitis, esophageal varices, portal hypertension. Presents to hospital with multiple joint pain for the past several days. Patient states that pain started in his right ankle approximately 4 days ago, it then migrated between his left ankle bilateral feet and ultimately to his left knee. Patient does have history of gout, typically in his feet, but never this many joints at one time. Also noted to have what appears to be subcutaneous abscess to the left upper chest wall. Current workup including x-ray left knee, bilateral feet, demonstrating left knee effusion and generalized degenerative changes. WBC 10, uric acid 7, elevated ESR and CRP. Empiric antibiotic started in the ED secondary to suspected chest wall abscess. Admitted to hospital medicine team for further workup of polyarthralgia and chest wall abscess. Orthopedics consulted for management recommendations regarding left knee, multiple joint pain. At time of exam patient sitting comfortably in bed, no acute distress. Endorses moderate pain of bilateral feet, ankles, left knee but states it is nowhere near as severe as his past gout flares. Able to move the feet and ankle without difficulty however motion of the knee is significant limited secondary to pain. Effusion was noted. Allergies Allergy/AdvReac Type Severity Reaction Status Date / Time aspirin AdvReac Mild BLOODY NOSE Verified 10/27/24 20:55 Home Medications Medication Instructions Recorded Confirmed Type ursodiol 300 mg capsule 300 mg PO BID 06/10/18 10/27/24 History furosemide 20 mg tablet 20 mg PO QAM 11/14/22 10/27/24 History spironolactone 25 mg tablet 25 mg PO QAM 11/14/22 10/27/24 History folic acid 1 mg tablet 1 mg PO QAM #30 tabs 06/06/23 10/27/24 Rx pantoprazole 40 mg tablet,delayed 40 mg PO QAM 08/01/23 10/27/24 History release magnesium chloride 64 mg 64 mg PO AMHS 02/29/24 10/27/24 History (magnesium chloride) tablet,delayed release (Mag 64) buspirone 5 mg tablet 5 mg PO AMHS 04/28/24 10/27/24 History potassium chloride 20 mEq 20 meq PO QAM 04/28/24 10/27/24 History tablet,extended release(part/cryst) gabapentin 300 mg capsule 300 mg PO TID 10/27/24 10/27/24 History nadolol 20 mg tablet 20 mg PO HS 10/27/24 10/27/24 History zolpidem 5 mg tablet 5 mg PO HS PRN Insomnia 10/27/24 10/27/24 History Past Med/Surg History Problem List (Updated 10/27/24 @ 23:53 by Rui Noble PA-C) Effusion, left knee (Acute) Knee pain, left (Acute) Bilateral ankle pain (Acute) Pain in toes of both feet (Acute) History of gout (Acute) Multiple joint pain (Acute) Abscess of chest wall (Acute) Acute gout Anxiety Alcohol use disorder, moderate, dependence Alcohol withdrawal (Acute) Alcohol withdrawal syndrome (Acute) Alcohol dependence (Acute) Electrolyte abnormality (Acute) Hypokalemia (Acute) Alcohol abuse (Acute) Prolonged QT interval (Acute) Alcoholic cirrhosis Acute hypokalemia (Acute) Nausea & vomiting (Acute) Thrombocytopenia (Acute) Transaminitis (Acute) Hypomagnesemia (Acute) Alcoholic hepatitis (Acute) Esophageal varices Transaminitis (Acute) Medical History Alcohol withdrawal Abrasion of finger Fall Alcohol intoxication Alcohol withdrawal Alcohol withdrawal Cholecystitis Choledocholithiasis Depression UGIB (upper gastrointestinal bleed) Thrombocytopenia Ascites Alcohol abuse Alcoholic cirrhosis of liver Esophageal varices Portal hypertension History of macrocytic anemia History of alcohol abuse Surgical History History of esophagogastroduodenoscopy (EGD) Including procedures for esophageal varices banding History of tonsillectomy Family History Mother Diabetes Father Prostate cancer Other No family history of adverse response to anesthesia Social History Smoking Status: Never smoker Tobacco Type: Smokeless Tobacco (Dip or Chew) Second Hand Exposure: Yes; Do You Dip or Chew Tobacco: Yes (1 can per week); Hx Alcohol Use: Yes Alcohol type: hard liquor Hx Substance Use: No Preferred Language: [place] African Communication Ability: Effective Weapons Specialist Required: No Beliefs That Will Affect Care: None Current Living Situation: Parent Current Living Situation Comment: lives with parents Other Information That Helps Us Care for You: No Feels Safe at Home: Yes Safety Concerns: Feels Safe At This Time Assistive Devices: Walker Review of Systems All systems reviewed & are unremarkable except as noted in HPI & below. Physical Exam . * General: Alert and oriented, no acute distress * Constitutional: well-developed, well-nourished. * Respiratory: Normal respiratory effort, no distress * Gastrointestinal: No tenderness to palpation, no rigidity or guarding. * Skin: No rash or lesion. * Neurologic: Grossly normal * Musculoskeletal: Left knee with moderate effusion. Otherwise no obvious deformity or overlying skin changes to the left or right lower extremities. TTP left suprapatellar region, mildly to medial/lateral joint line. Mild diffuse TTP of the bilateral ankle, bilateral first MTP joints, no significant effusion appreciated in these areas. AROM bilateral foot/ankle flexion/extension intact without significant pain. AROM knee significant limited secondary to pain, 0-20 degrees flexion. Sensation intact plantar/dorsal foot bilaterally. Brisk capillary refill bilaterally. Results & Data Results & Data Laboratory Results . 10/27/24 18:57 Aerobic Blood Culture - Pending Blood Anaerobic Blood Culture - Pending 10/27/24 18:35 Aerobic Blood Culture - Pending Blood Anaerobic Blood Culture - Pending 10/27/24 10/27/24 10/27/24 18:57 18:35 18:09 WBC 9.57 RBC 5.32 Hgb 16.4 Hct 48.9 MCV 91.9 MCH 30.8 MCHC 33.5 RDW Std Deviation 46.4 H RDW Coeff of Hang 13.6 Plt Count 199 MPV 9.8 Immature Gran % (Auto) 0.4 Neut % (Auto) 71.2 Lymph % (Auto) 13.4 [place] % (Auto) 13.6 Eos % (Auto) 0.9 Baso % (Auto) 0.5 Neut # (Auto) 6.81 H Lymph # (Auto) 1.28 [place] # (Auto) 1.30 H Eos # (Auto) 0.09 Baso # (Auto) 0.05 Immature Gran # (Auto) 0.04 ESR 63 H PT 12.4 H INR 1.2 H APTT 30 PTT Ratio 1.1 Sodium 135 L Potassium 3.9 Chloride 101 Carbon Dioxide 26 Anion Gap 8 BUN 10 Creatinine 0.93 Est Cr Clr Drug Dosing Not Reportable eGFR 99.42 BUN/Creatinine Ratio 10.8 Glucose 159 H Lactate 1.4 Uric Acid 7.0 Calcium 9.4 Magnesium 1.9 Total Bilirubin 1.1 H AST 16 ALT 13 Alkaline Phosphatase 56 C-Reactive Protein 13.17 H Total Protein 9.1 H Albumin 4.1 Globulin 5.0 H Albumin/Globulin Ratio 0.8 L Procalcitonin 0.10 Lyme Disease Screen Negative Diagnostic Findings . Foot X-Ray 10/27/24 18:27 EXAM: XR foot RT min 3V routine CLINICAL HISTORY: Ankle/bilat 1st toe edema, pain TECHNIQUE: X-ray images of the right foot were obtained in anteroposterior (AP), lateral, and oblique projections. COMPARISON: No prior studies available for comparison. FINDINGS: Hallux valgus deformity with degenerative changes of the first metatarsophalangeal articulation. Associated cortical irregularities of the head of the metatarsal bone are noted with overlying medial soft tissue swelling. No evidence of fracture or dislocation. Inferior bony calcaneal spur with related calcifications. Achilles enstheopathy. Accessory navicular bone. IMPRESSION: 1. No evidence of acute fracture or dislocation. 2. Hallux valgus deformity with degenerative changes of the first metatarsophalangeal articulation. 3. Cortical irregularities of the head of the metatarsal bone are noted with overlying medial soft tissue swelling. 4. Inferior bony calcaneal spur with related calcifications. Disclaimer: A subtle bone abnormality or fracture may not be readily apparent on X-rays, thus clinical correlation and further imaging including follow-up CT, MRI, or follow-up X-rays are advised as needed. Electronically signed by Igor Izquierdo 10-27-2024 8:20 PM Foot X-Ray 10/27/24 18:27 EXAM: XR foot LT min 3V routine CLINICAL HISTORY: Ankle/bilat 1st toe edema, pain. TECHNIQUE: X-ray images of the left foot were obtained in anteroposterior (AP), lateral, and oblique projections. COMPARISON: X-ray 11/07/2023 FINDINGS: Bone Structure: No evidence of fracture or dislocation. Mild hallux valgus deformity is noticed with mild degenerative changes involving the first metatarsophalangeal articulation associated with overlying soft tissue edema. Side note of small os naviculare. Incidental small benign looking sclerotic area at the 5th metatarsal head; bone island. Maintained other joint spaces. Inferior bony calcaneal spur with related plantar fascia calcifications. Achilles enstheopathy. IMPRESSION: 1. No evidence of acute fracture or dislocation, 2. Mild hallux valgus deformity is noticed with mild degenerative changes involving the first metatarsophalangeal articulation associated with overlying soft tissue edema. 3. Inferior bony calcaneal spur with related plantar fascia calcifications. 4. No significant interval changes since prior. Disclaimer: A subtle bone abnormality or fracture may not be readily apparent on X-rays, thus clinical correlation and further imaging including follow-up CT, MRI, or follow-up X-rays are advised as needed. Electronically signed by Igor Izquierdo 10-27-2024 8:17 PM Knee X-Ray 10/27/24 18:27 EXAM: XR knee LT 3V CLINICAL HISTORY: L knee pain, edema TECHNIQUE: X-ray images of the left knee were obtained in anteroposterior (AP), lateral, and sunrise/skyline (patellar) projections. COMPARISON: No prior studies available for comparison. FINDINGS: Bone Structure: No evidence of acute fractures or dislocations. Minimal marginal osteophytic lipping of the articular surfaces and patellar poles. Joint Spaces: Slightly narrowed medial tibiofemoral and patellofemoral joint spaces. Patella: Patella is normal in position and alignment. No evidence of patellar dislocation or subluxation. Soft Tissues: Effaced suprapatellar fat pad denoting joint effusion. IMPRESSION: 1. No evidence of acute fractures or dislocations. 2. Mild knee osteoarthritis. 3. Effaced suprapatellar fat pad denoting joint effusion. Disclaimer: A subtle bone abnormality or fracture may not be readily apparent on X-rays, thus clinical correlation and further imaging including follow-up CT, MRI, or follow-up X-rays are advised as needed. Electronically signed by Igor Izquierdo 10-27-2024 8:19 PM Soft Tissue Ultrasound 10/27/24 18:27 Left chest wall subcutaneous soft tissue ultrasound Technique: Grayscale and color Doppler ultrasound images of the subcutaneous soft tissue to left chest wall and the patient identified a concern No comparison Findings: There is an avascular multiloculated heterogeneous structure within the subcutaneous soft tissue consistent with an abscess within same. Impression Left chest wall abscess. Electronically signed by Ousmane Raygoza 10-27-2024 8:52 PM PG Care Time/CCT Total # of Minutes Spent Total Time Spent with Patient: Total time spent is greater than 50% in coordination of care (as documented) at patient's floor/unit and/or counseling patient: [place] [address] IN/OBS CONSULT LVL 5,80M Patient Type New Medical Decision Making High Complexity Diagnoses Effusion, left knee M25.462 Multiple joint pain M25.50
--- NOTE | 2024-10-28 10:20 | Pharmacy Report ---
Pharmacy PK ABX Note - Date of Service October 28, 2024 - Assessment and Plan Assessment 49 year old M receiving vancomycin/zosyn for left chest wall abscess. Presenting with bilateral ankle/knee and toe pain and being worked up for potential acute gout flare. PMHx significant for pancreatic cyst, alcoholic cirrhosis. Surgery and ortho consulted. Awaiting culture results. Plan Vancomycin * Loading dose: 1750 mg IV x 1 * Maintenance dose: 1250 mg IV every 12 hours * Regimen is predicted to achieve target AUC/ALEJA of 400-600 mg/L.hr * Will plan to order tomorrow AM to assess dosing Pharmacy will continue to follow and will adjust dose/frequency as necessary. Thank you. Pharmacy has transitioned to AUC monitoring for vancomycin. AUC/ALEJA is the preferred PK/PD target and is associated with decreased risk of nephrotoxicity compared to traditional trough targets.
--- NOTE | 2024-10-28 10:23 | Hospitalist Progress Note ---
Date of Service October 28, 2024 Assessment & Plan (1) Acute gout: Plan: 49 yo M w/ Hx of pancreatic cyst, secondary esophageal varices without bleeding, alcoholic cirrhosis of liver with ascites, chronic cholecystitis, coagulopathy, macrocytic anemia, history of biliary colic, presents with bilateral ankle, bilateral big toe pain, left knee pain going on for last 4 days. Having pain while ambulating. While resting pain is under control currently. Also noticed a lump on his left chest wall since about a week. He thinks it is ingrown hair. Denies any fevers. Denies chest pain or shortness of breath. Denies cough. No nausea or vomiting. No abdominal pain. Normal bowel and bladder movements. Denies any headache currently. No neck pain. No runny nose or sore throat. Patient has history of alcoholism. Per patient currently not drinking that m uch. He is only drinking every 3 to 4 weeks. Last drink was about 3 weeks ago. Patient does not think that he will go through withdrawal. Hemodynamics are okay currently. Poss. Acute gout Patient presents with pain and erythematic changes in bilateral ankles and bilateral big toes and left knee going on for last 4 days Possibly acute gout involving multiple joints Received a dose of IV Solu-Medrol 40 mg on admission Ankles and toes feel better today however given concern for poss. infection, would not continue steroid for now Blood cultx pending Pt on antibiotics - zosyn, vanco Orthopedics consulted - s/p L knee joint aspiration Recommend consult w/ rheumatology given multiple joints involvement Left chest wall abscess Empiric Vanco and Zosyn Surgical consult - now s/p I&D, cultx sent History of alcoholism Patient says is not drinking regularly now. Currently drinking only every 3 or 4 weeks. Says last drink was 3 weeks ago. Patient does not think he will go through withdrawal. Thiamine, folic acid and multivitamins. IV Ativan as needed Close monitor Alcohol liver cirrhosis Continue nadolol, spironolactone Lasix and potassium supplement Getting gentle fluids Monitor for volume overload GERD Protonix History of anxiety Buspirone Chronic cholecystitis On ursodiol DVT prophylaxis SCDs Disposition Med/telemetry Full code. Admission and Anticipated Discharge Date Admission Date: October 27, 2024 Subjective Pt seen in follow up of pain in multiple joints, ankles, toes, knees, also chest wall abscess orthopedics consulted s/p knee joint aspiration, gen. surgery consulted, s/p chest wall abscess i&D Currently lying in bed in NAD reports broke in sweats yesterday, currently no fever, chills, chest pain or preeti rtness of breath, no abd. pain, n/v Ankles and toes feel better today, received solumedrol on admission Review of Systems Review of Systems: All systems reviewed & are unremarkable except as noted in Subjective Physical Exam Physical Exam: General- WD/WN M in NAD Head- atraumatic Eyes- PERRL. Neck- supple, no JVD. Lungs- clear to auscultation no wheezing or crackles Heart- regular rate and rhythm; no murmur Abdomen- normal bowel sounds, soft, nontender, no distension Extremities- erythema and warm to palpation of b/l ankle and great toe. painful left knee movements +L knee effusion Neuro- alert, oriented PERRL, no facial palsy; no dysarthria; moves extremities Results & Data Results & Data Vital Signs (Past 12 Hours) Vital Signs Temp Pulse Pulse Resp BP BP Pulse Ox 10/28/24 07:51 36.4 C L 56 L 16 121/83 95 10/28/24 07:25 54 L 10/28/24 03:19 36.4 C L 62 18 128/75 94 10/27/24 23:10 87 10/27/24 23:10 37.5 C 90 18 146/86 H 97 10/27/24 23:10 10/27/24 22:30 81 16 146/88 H 98 Pulse Ox O2 Del Method O2 Del Method 10/28/24 07:51 Room Air 10/28/24 07:25 10/28/24 03:19 Room Air 10/27/24 23:10 10/27/24 23:10 Room Air 10/27/24 23:10 97 Room Air 10/27/24 22:30 Room Air Laboratory Results 10/28/24 10/27/24 10/27/24 Range/Units Unknown 18:57 18:35 WBC (4.8-10.8) K/ul RBC (4.70-6.10) M/uL Hgb (14.0-18.0) g/dl Hct (42.0-52.0) % MCV (80.0-100.0) fL MCH (25.0-34.0) pg MCHC (32.0-36.0) g/dL RDW Std Deviation (36.4-46.3) fL RDW Coeff of Hang (11.5-14.5) % Plt Count (130-400) K/uL MPV (9.4-12.4) fL Immature Gran % (Auto) % Neut % (Auto) % Lymph % (Auto) % [place] % (Auto) % Eos % (Auto) % Baso % (Auto) % Neut # (Auto) (1.40-6.50) K/uL Lymph # (Auto) (1.20-3.40) K/uL [place] # (Auto) (0.11-0.59) K/uL Eos # (Auto) (0.00-0.50) K/uL Baso # (Auto) (0.00-0.20) K/uL Immature Gran # (Auto) (0.01-0.20) K/uL ESR (0-20) mm/hr PT (9.0-12.0) Seconds INR (0.9-1.1) APTT (21-31) Seconds PTT Ratio Sodium (136-145) mmol/L Potassium (3.5-5.1) mmol/L Chloride (98-107) mmol/L Carbon Dioxide (21-32) mmol/L Anion Gap (3-11) BUN (6-23) mg/dl Creatinine (0.6-1.4) mg/dl Est Cr Clr Drug Dosing eGFR BUN/Creatinine Ratio (10-20) Glucose (70-99(Fasting)) mg/dl Lactate 1.4 (0.4-2.0) mmol/L Uric Acid (2.6-7.2) mg/dl Calcium (8.6-10.3) mg/dl Magnesium (1.7-2.4) mg/dl Total Bilirubin (0.2-1.0) mg/dl AST (13-39) U/L ALT (7-52) U/L Alkaline Phosphatase (34-104) U/L C-Reactive Protein (0-0.5) mg/dl Total Protein (6.0-8.3) gm/dl Albumin (3.4-5.0) gm/dl Globulin (2.5-4.0) gm/dl Albumin/Globulin Ratio (0.9-2) Procalcitonin (0-0.5) ng/ml Fluid Comment Synovial Source Pending Synovial Color Pending Synovial Appearance Pending Synovial Crystals Pending Lyme Disease Screen Negative (Negative) 10/27/24 Range/Units 18:09 WBC 9.57 (4.8-10.8) K/ul RBC 5.32 (4.70-6.10) M/uL Hgb 16.4 (14.0-18.0) g/dl Hct 48.9 (42.0-52.0) % MCV 91.9 (80.0-100.0) fL MCH 30.8 (25.0-34.0) pg MCHC 33.5 (32.0-36.0) g/dL RDW Std Deviation 46.4 H (36.4-46.3) fL RDW Coeff of Hang 13.6 (11.5-14.5) % Plt Count 199 (130-400) K/uL MPV 9.8 (9.4-12.4) fL Immature Gran % (Auto) 0.4 % Neut % (Auto) 71.2 % Lymph % (Auto) 13.4 % [place] % (Auto) 13.6 % Eos % (Auto) 0.9 % Baso % (Auto) 0.5 % Neut # (Auto) 6.81 H (1.40-6.50) K/uL Lymph # (Auto) 1.28 (1.20-3.40) K/uL [place] # (Auto) 1.30 H (0.11-0.59) K/uL Eos # (Auto) 0.09 (0.00-0.50) K/uL Baso # (Auto) 0.05 (0.00-0.20) K/uL Immature Gran # (Auto) 0.04 (0.01-0.20) K/uL ESR 63 H (0-20) mm/hr PT 12.4 H (9.0-12.0) Seconds INR 1.2 H (0.9-1.1) APTT 30 (21-31) Seconds PTT Ratio 1.1 Sodium 135 L (136-145) mmol/L Potassium 3.9 (3.5-5.1) mmol/L Chloride 101 (98-107) mmol/L Carbon Dioxide 26 (21-32) mmol/L Anion Gap 8 (3-11) BUN 10 (6-23) mg/dl Creatinine 0.93 (0.6-1.4) mg/dl Est Cr Clr Drug Dosing Not Reportable eGFR 99.42 BUN/Creatinine Ratio 10.8 (10-20) Glucose 159 H (70-99(Fasting)) mg/dl Lactate (0.4-2.0) mmol/L Uric Acid 7.0 (2.6-7.2) mg/dl Calcium 9.4 (8.6-10.3) mg/dl Magnesium 1.9 (1.7-2.4) mg/dl Total Bilirubin 1.1 H (0.2-1.0) mg/dl AST 16 (13-39) U/L ALT 13 (7-52) U/L Alkaline Phosphatase 56 (34-104) U/L C-Reactive Protein 13.17 H (0-0.5) mg/dl Total Protein 9.1 H (6.0-8.3) gm/dl Albumin 4.1 (3.4-5.0) gm/dl Globulin 5.0 H (2.5-4.0) gm/dl Albumin/Globulin Ratio 0.8 L (0.9-2) Procalcitonin 0.10 (0-0.5) ng/ml Fluid Comment Synovial Source Synovial Color Synovial Appearance Synovial Crystals Lyme Disease Screen (Negative) Medications Administered Current Inpatient Medications Acetaminophen (Acetaminophen 325 Mg Tab) 650 mg PO Q4H PRN PRN Reason: Pain or Fever Stop: 11/26/24 23:09 Buspirone HCl (Buspirone 5 Mg Tab) 5 mg PO AMHS [facility] Stop: 11/27/24 08:59 Last Admin: 10/28/24 08:44 Dose: 5 mg Folic Acid (Folic Acid 1 Mg Tab) 1 mg PO QAM LANDRY Stop: 11/27/24 08:59 Last Admin: 10/28/24 08:44 Dose: 1 mg Furosemide (Furosemide 20 Mg Tab) 20 mg PO QAM LANDRY Stop: 11/27/24 08:59 Last Admin: 10/28/24 08:44 Dose: 20 mg Gabapentin (Gabapentin 300 Mg Cap) 300 mg PO TID LANDRY Stop: 11/27/24 08:59 Last Admin: 10/28/24 08:44 Dose: 300 mg Hydromorphone HCl (Hydromorphone Inj 0.5 Mg/0.5 Ml Syr) 0.5 mg IV Q4H PRN PRN Reason: Severe Pain (Scale 7, 8, 9,10) Stop: 11/10/24 23:09 Last Admin: 10/28/24 07:58 Dose: 0.5 mg Sodium Chloride (Nss) 1,000 mls @ 80 mls/hr IV .[id number] [facility] Stop: 10/30/24 23:09 Last Admin: 10/27/24 23:45 Dose: 80 mls/hr Piperacillin Sod/Tazobactam Sod (Zosyn) 4.5 gm in 100 mls @ 25 mls/hr IV Q8H [facility]; Protocol Stop: 11/04/24 05:59 Last Infusion: 10/28/24 10:09 Dose: Infused Thiamine HCl 100 mg/ Syringe 10 mls @ 2 mls/min IV QAM [facility] Stop: 11/27/24 08:59 Last Admin: 10/28/24 08:44 Dose: 2 mls/min Vancomycin HCl 1,250 mg/ (Sodium Chloride) 275 mls @ 200 mls/hr IV Q12H [facility] Stop: 11/04/24 07:59 Last Infusion: 10/28/24 09:30 Dose: Infused Lorazepam (Lorazepam 2 Mg/1 Ml Vial) 0.5 mg IV Q4H PRN PRN Reason: Anxiety/Agitation Stop: 11/26/24 23:09 Magnesium Chloride (Magnesium Chloride W/Calcium 64mg Delayed Rel Tab) 64 mg PO AMHS [facility] Stop: 11/27/24 08:59 Last Admin: 10/28/24 08:44 Dose: 64 mg Miscellaneous Information (Vancomycin Consult Active) 1 each N/A UD PRN PRN Reason: Consult Stop: 11/26/24 23:09 Multivitamins/Minerals (Cerovite Adv Formula Tab) 1 tab PO QAM [facility] Stop: 11/27/24 08:59 Last Admin: 10/28/24 08:44 Dose: 1 tab Nadolol (Nadolol 40 Mg Tab) 20 mg PO HS [facility] Stop: 11/27/24 20:59 Nitroglycerin (Nitroglycerin Sl 0.4 Mg/Tab Tab) 0.4 mg SL Q5M PRN PRN Reason: Chest Pain Stop: 11/26/24 23:09 Oxycodone HCl (Oxycodone Hcl Ir 5 Mg Tab (Immediate Release)) 5 mg PO Q6H PRN PRN Reason: Moderate Pain (Scale 4, 5, 6) Stop: 11/10/24 23:09 Last Admin: 10/27/24 23:45 Dose: 5 mg Pantoprazole Sodium (Pantoprazole 40 Mg Tab) 40 mg PO QAM [facility] Stop: 11/27/24 08:59 Last Admin: 10/28/24 08:44 Dose: 40 mg Polyethylene Glycol (Polyethylene (Miralax) 17 Gm Pack) 17 gm PO DAILY PRN PRN Reason: Constipation Stop: 11/26/24 23:09 Potassium Chloride (Potassium Chloride Crtab 20 Meq Tabcr) 20 meq PO QAM [facility] Stop: 11/27/24 08:59 Last Admin: 10/28/24 08:44 Dose: 20 meq Spironolactone (Spironolactone 25 Mg Tab) 25 mg PO QAM [facility] Stop: 11/27/24 08:59 Last Admin: 10/28/24 08:44 Dose: 25 mg Ursodiol (Ursodiol 300 Mg Cap) 300 mg PO BID [facility] Stop: 11/27/24 08:59 Last Admin: 10/28/24 08:44 Dose: 300 mg Zolpidem Tartrate (Zolpidem Tartrate 5 Mg Tab) 5 mg PO HS PRN PRN Reason: Insomnia Stop: 11/26/24 23:09
[2024-10-28] MEDS: ACETAMINOPHEN 325 MG TAB PO PRN (10:25)
[2024-10-28 11:02] LABS: Color Synovial Fluid Red; Mononuclear WBC Synovial 13.5 %; Polynuclear WBC Synovial 86.5 %; RBC Synovial Fluid Auto 44000 /uL; Source Synovial Fluid Left Knee; WBC Synovial Fluid Auto 24528 /ul (0-200)
[2024-10-28] MEDS: LIDOCAINE 1%/EPINEPHRINE 1:100,000 50 ML VIAL INFIL ONE (12:13)
--- NOTE | 2024-10-28 12:42 | Operative Report ---
Post Operative Report Pre & Post Diagnosis Pre-Op diagnosis: Left chest wall abscess Postop diagnosis: Same I identified the patient and participated in the time-out.: Yes Procedure incision and drainage of left chest wall abscess Surgeon Rai Martínez MD Regulatory Affairs Strategy Specialist none Estimated Blood Loss 1 Findings Consistent with Post-Op Diagnosis moderate amount of purulent drainage Specimens cultures for sensitivity Drains none Anesthesia Type Local Complications none Description of Procedure the procedure was done in the patient's room on the floor. A timeout was performed, informed consent had been obtained. The area was prepped and draped in the normal sterile fashion. Local anesthetic was injected into and around the area of the abscess. An 11 blade scalpel was used to make a cruciate incision into the abscess cavity. A moderate amount of purulent fluid was returned. This was drained and sent off for culture. Once the abscess was entirely drained, half-inch packing was placed within the incision. Dressings were applied. He tolerated the procedure without complication. I attest to the content of the Intraoperative Record and any orders documented therein. Any exceptions are noted below.
[2024-10-28] MEDS: predniSONE 20 MG TAB PO SCH (14:08)
[2024-10-29] MEDS: ZOLPIDEM TARTRATE 5 MG TAB PO PRN (00:13)
[2024-10-29 06:48] LABS: Hematocrit (blood only) 43.4 % (42.0-52.0); Hemoglobin 14.5 g/dl (14.0-18.0); Mean Corpuscular Hemoglobin 30.8 pg (25.0-34.0); Mean Corpuscular Volume 92.1 fL (80.0-100.0); Platelet Count 199 K/uL (130-400); RDW Standard Deviation 45.1 fL (36.4-46.3); Red Blood Count 4.71 M/uL (4.70-6.10); White Blood Count 11.66 K/ul (4.8-10.8)
[2024-10-29 07:08] LABS: Anion Gap 7.0 (3-11); Blood Urea Nitrogen 18.0 mg/dl (6-23); Calcium 8.9 mg/dl (8.6-10.3); Carbon Dioxide 23.0 mmol/L (21-32); Chloride 109.0 mmol/L (98-107); Creatinine Clr Calc Pharmacy 115.7 ml/min; Glucose 139.0 mg/dl (70-99(Fasting)); Magnesium 2.0 mg/dl (1.7-2.4); Potassium 4.6 mmol/L (3.5-5.1); Sodium 139.0 mmol/L (136-145)
[2024-10-29] MEDS: VANCOMYCIN LEVEL ONE (08:13)
--- NOTE | 2024-10-29 08:27 | Hospitalist Progress Note ---
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 Having pain while ambulating. While resting pain is under control currently. Also noticed a lump on his left chest wall since about a week. He thinks it is ingrown hair. Denies any fevers. Denies chest pain or shortness of breath. Denies cough. No nausea or vomiting. No abdominal pain. Normal bowel and bladder movements. Denies any headache currently. No neck pain. No runny nose or sore throat. Patient has history of alcoholism. Per patient currently not drinking that much. He is only drinking every 3 to 4 weeks. Last drink was about 3 weeks ago. Patient does not think that he will go through withdrawal. Hemodynamics are okay currently. Acute gout, polyarticular, given alcohol use hx Patient presents with pain and erythematic changes in bilateral ankles and bilateral big toes and left knee going on for last 4 days Acute gout involving multiple joints Received a dose of IV Solu-Medrol 40 mg on admission Ankles and toes feel better today , still w/ L knee pain Blood cultx pending Pt on antibiotics - carroll morales Orthopedics consulted - s/p L knee joint aspiration, c/w gout flare, cultx pending Recommend consult w/ rheumatology given multiple joints involvement - discussed w/ Dr. Calzada - recommend prednisone taper, and outpt follow up next week on Friday in [place] at 1:40pm at [facility]. Left chest wall abscess Empiric Vanco and Zosyn Surgical consult - now s/p I&D, cultx sent and pending History of alcoholism Patient says is not drinking regularly now. Currently drinking only every 3 or 4 weeks. Says last drink was 3 weeks ago. Patient does not think he will go through withdrawal. Thiamine, folic acid and multivitamins. IV Ativan as needed Close monitor Alcohol liver cirrhosis Continue nadolol, spironolactone Lasix and potassium supplement Getting gentle fluids Monitor for volume overload GERD Protonix History of anxiety Buspirone Chronic cholecystitis On ursodiol DVT prophylaxis SCDs Disposition Med/telemetry Full code. Admission and Anticipated Discharge Date Admission Date: October 27, 2024 Subjective Pt seen in follow up of pain in multiple joints, ankles, toes, knees, also chest wall abscess Orthopedics consulted s/p knee joint aspiration, gen. surgery consulted, s/p chest wall abscess I&D Pt reports he had sweats last night again, afebrile Currently lying in bed in NAD no chest pain or shortness of breath, no abd. pain, n/v Ankles and toes feel better today, still reports L knee painful Discussed w/ ortho and w/ rheum - findings so far consistent w/ acute gout, ok to cont. prednisone as long as pt is on antibiotics. cultx pending Review of Systems Review of Systems: All systems reviewed & are unremarkable except as noted in Subjective Physical Exam Physical Exam: General- WD/WN M in NAD Head- atraumatic Eyes- PERRL. Neck- supple, no JVD. Lungs- clear to auscultation no wheezing or crackles Heart- regular rate and rhythm; no murmur Abdomen- normal bowel sounds, soft, nontender, no distension Extremities- erythema and warm to palpation of b/l ankle and great toe. painful left knee movements +L knee effusion Neuro- alert, oriented PERRL, no facial palsy; no dysarthria; moves extremities Results & Data Results & Data Vital Signs (Past 12 Hours) Vital Signs Temp Pulse Pulse Resp BP Pulse Ox O2 Del Method 10/29/24 07:38 45 L 10/29/24 07:18 36.4 C L 50 L 18 113/71 97 Room Air 10/29/24 02:52 36.4 C L 48 L 18 108/65 96 Room Air 10/28/24 22:41 36.3 C L 52 L 18 129/76 95 Room Air 10/28/24 21:53 55 L Laboratory Results 10/29/24 10/28/24 Range/Units 06:18 Unknown WBC 11.66 H (4.8-10.8) K/ul RBC 4.71 (4.70-6.10) M/uL Hgb 14.5 (14.0-18.0) g/dl Hct 43.4 (42.0-52.0) % MCV 92.1 (80.0-100.0) fL MCH 30.8 (25.0-34.0) pg MCHC 33.4 (32.0-36.0) g/dL RDW Std Deviation 45.1 (36.4-46.3) fL RDW Coeff of Hang 13.2 (11.5-14.5) % Plt Count 199 (130-400) K/uL MPV 10.5 (9.4-12.4) fL Sodium 139 (136-145) mmol/L Potassium 4.6 (3.5-5.1) mmol/L Chloride 109 H (98-107) mmol/L Carbon Dioxide 23 (21-32) mmol/L Anion Gap 7 (3-11) BUN 18 (6-23) mg/dl Creatinine 0.78 (0.6-1.4) mg/dl Est Cr Clr Drug Dosing 115.7 ml/min eGFR 107.97 BUN/Creatinine Ratio 23.1 H (10-20) Glucose 139 H (70-99(Fasting)) mg/dl Calcium 8.9 (8.6-10.3) mg/dl Phosphorus 3.8 (2.5-4.9) mg/dl Magnesium 2.0 (1.7-2.4) mg/dl Fluid Comment Synovial Source Left Knee Synovial Color Red Synovial Appearance Cloudy Synovial WBC (Auto) 19400 H (0-200) /ul Synovial RBC (Auto) 60619 /uL Synovial Polynuclear % 86.5 % Synovial Mononuclear % 13.5 % Synovial Crystals Random Vancomycin 10.8 (10-20) mcg/ml Medications Administered Current Inpatient Medications Acetaminophen (Acetaminophen 325 Mg Tab) 650 mg PO Q4H PRN PRN Reason: Pain or Fever Stop: 11/26/24 23:09 Last Admin: 10/29/24 08:15 Dose: 650 mg Buspirone HCl (Buspirone 5 Mg Tab) 5 mg PO AMHS [facility] Stop: 11/27/24 08:59 Last Admin: 10/29/24 08:15 Dose: 5 mg Folic Acid (Folic Acid 1 Mg Tab) 1 mg PO QAM [facility] Stop: 11/27/24 08:59 Last Admin: 10/29/24 08:15 Dose: 1 mg Furosemide (Furosemide 20 Mg Tab) 20 mg PO QAM [facility] Stop: 11/27/24 08:59 Last Admin: 10/29/24 08:15 Dose: 20 mg Gabapentin (Gabapentin 300 Mg Cap) 300 mg PO TID [facility] Stop: 11/27/24 08:59 Last Admin: 10/29/24 08:15 Dose: 300 mg Hydromorphone HCl (Hydromorphone Inj 0.5 Mg/0.5 Ml Syr) 0.5 mg IV Q4H PRN PRN Reason: Severe Pain (Scale 7, 8, 9,10) Stop: 11/10/24 23:09 Last Admin: 10/28/24 21:13 Dose: 0.5 mg Sodium Chloride (Nss) 1,000 mls @ 80 mls/hr IV .[id number] [facility] Stop: 10/30/24 23:09 Last Admin: 10/29/24 01:33 Dose: 80 mls/hr Piperacillin Sod/Tazobactam Sod (Zosyn) 4.5 gm in 100 mls @ 25 mls/hr IV Q8H [facility]; Protocol Stop: 11/04/24 05:59 Last Admin: 10/29/24 06:02 Dose: 25 mls/hr Thiamine HCl 100 mg/ Syringe 10 mls @ 2 mls/min IV QAM [facility] Stop: 11/27/24 08:59 Last Admin: 10/28/24 08:44 Dose: 2 mls/min Vancomycin HCl 1,250 mg/ (Sodium Chloride) 275 mls @ 200 mls/hr IV Q12H [facility] Stop: 11/04/24 07:59 Last Admin: 10/29/24 08:13 Dose: 200 mls/hr Lorazepam (Lorazepam 2 Mg/1 Ml Vial) 0.5 mg IV Q4H PRN PRN Reason: Anxiety/Agitation Stop: 11/26/24 23:09 Magnesium Chloride (Magnesium Chloride W/Calcium 64mg Delayed Rel Tab) 64 mg PO AMHS [facility] Stop: 11/27/24 08:59 Last Admin: 10/29/24 08:14 Dose: 64 mg Miscellaneous Information (Vancomycin Consult Active) 1 each N/A UD PRN PRN Reason: Consult Stop: 11/26/24 23:09 Multivitamins/Minerals (Cerovite Adv Formula Tab) 1 tab PO QAM [facility] Stop: 11/27/24 08:59 Last Admin: 10/29/24 08:14 Dose: 1 tab Nadolol (Nadolol 40 Mg Tab) 20 mg PO HS [facility] Stop: 11/27/24 20:59 Last Admin: 10/28/24 21:12 Dose: 20 mg Nitroglycerin (Nitroglycerin Sl 0.4 Mg/Tab Tab) 0.4 mg SL Q5M PRN PRN Reason: Chest Pain Stop: 11/26/24 23:09 Oxycodone HCl (Oxycodone Hcl Ir 5 Mg Tab (Immediate Release)) 5 mg PO Q6H PRN PRN Reason: Moderate Pain (Scale 4, 5, 6) Stop: 11/10/24 23:09 Last Admin: 10/29/24 08:16 Dose: 5 mg Pantoprazole Sodium (Pantoprazole 40 Mg Tab) 40 mg PO QAM [facility] Stop: 11/27/24 08:59 Last Admin: 10/29/24 08:15 Dose: 40 mg Polyethylene Glycol (Polyethylene (Miralax) 17 Gm Pack) 17 gm PO DAILY PRN PRN Reason: Constipation Stop: 11/26/24 23:09 Potassium Chloride (Potassium Chloride Crtab 20 Meq Tabcr) 20 meq PO QAM [facility] Stop: 11/27/24 08:59 Last Admin: 10/29/24 08:17 Dose: 20 meq Prednisone (Prednisone 20 Mg Tab) 40 mg PO QAM [facility] Stop: 11/27/24 13:59 Last Admin: 10/29/24 08:15 Dose: 40 mg Spironolactone (Spironolactone 25 Mg Tab) 25 mg PO QAM [facility] Stop: 11/27/24 08:59 Last Admin: 10/29/24 08:15 Dose: 25 mg Ursodiol (Ursodiol 300 Mg Cap) 300 mg PO BID [facility]DR[facility] Stop: 11/27/24 08:59 Last Admin: 10/29/24 08:14 Dose: 300 mg Zolpidem Tartrate (Zolpidem Tartrate 5 Mg Tab) 5 mg PO HS PRN PRN Reason: Insomnia Stop: 11/26/24 23:09 Last Admin: 10/29/24 00:13 Dose: 5 mg
--- NOTE | 2024-10-29 09:29 | Pharmacy Report ---
Pharmacy PK ABX Note - Date of Service October 29, 2024 - Assessment and Plan Assessment 10/29: * Random vancomycin level this AM ~10 mcg/ml - current vancomycin dosing predicted to achieve goal AUC/ALEJA therefore will continue current regimen * Awaiting I&D culture results 10/28: * 49 year old M receiving vancomycin/zosyn for left chest wall abscess. Presenting with bilateral ankle/knee and toe pain and being worked up for potential acute gout flare. PMHx significant for pancreatic cyst, alcoholic cirrhosis. Surgery and ortho consulted. Awaiting culture results. Plan Vancomycin * Continue vancomycin 1250 mg iv q 12 hours * Follow up on final culture results Pharmacy will continue to follow and will adjust dose/frequency as necessary. Thank you. Pharmacy has transitioned to AUC monitoring for vancomycin. AUC/ALEJA is the preferred PK/PD target and is associated with decreased risk of nephrotoxicity compared to traditional trough targets.
--- NOTE | 2024-10-29 09:53 | Orthopedic Progress Note ---
Date of Service October 29, 2024 Assessment & Plan (1) Effusion, left knee: * Continue Current Treatment * Synovial fluid analysis WBC 25k, (+) crystals, (-) gram stain and culture to date. Findings consistent with gout * Continue medical management; NSAIDs, systemic steroid, ice * Disposition: home * Daily treatment: Physical Therapy/ Occupational Therapy per protocol * Weight bearing status: WBAT * Pain control * Remainder care per primary team * May follow with orthopedics PRN, recommend intermediate gout management with PCP/Rheum * Stable for discharge from ortho standpoint, further planning per primary team (2) Acute gout: Subjective . Active Problems: Left knee effusion, gout, polyarthralgia 49 y/o male with pain of multiple joints including L knee, bilateral ankles and toes s/p left knee aspiration. Synovial analysis demonstrates WBC 25k, (+) crystals, and negative gram stain/culture to date. Doing well overall, pain managed and improved function of knee. Denies fever/chills, chest pain/SOB, nausea/vomiting. Otherwise no complaints. Also s/p bedside I&D L chest wall abscess. Review of Systems All systems reviewed & are unremarkable except as noted in HPI & below. Physical Exam . * General: Alert and oriented, no acute distress * Constitutional: well-developed, well-nourished. * Respiratory: Normal respiratory effort, no distress * Gastrointestinal: No tenderness to palpation, no rigidity or guarding. * Skin: No rash or lesion. * Neurologic: Grossly normal * Musculoskeletal: Left knee with minimal effusion. Otherwise no obvious deform ity or overlying skin changes to left leg. Mild diffuse tenderness of the suprapatellar region and medial/lateral joint lines. AROM knee flexion 0-60 degrees with significantly improved pain from yesterday. Sensation intact plantar/dorsal foot. Results & Data Results & Data Laboratory Results . 10/27/24 18:57 Aerobic Blood Culture - Preliminary Blood No growth in Aerobic bottle after 24 hours. Anaerobic Blood Culture - Preliminary No growth in Anaerobic bottle after 24 hours. 10/27/24 18:35 Aerobic Blood Culture - Preliminary Blood No growth in Aerobic bottle after 24 hours. Anaerobic Blood Culture - Preliminary No growth in Anaerobic bottle after 24 hours. 10/28/24 Unknown Gram Stain - Final Knee,Left Aerobic and Anaerobic Culture - Pending 10/28/24 Unknown Gram Stain - Final Chest Aerobic and Anaerobic Culture - Pending 10/29/24 10/28/24 06:18 Unknown WBC 11.66 H RBC 4.71 Hgb 14.5 Hct 43.4 MCV 92.1 MCH 30.8 MCHC 33.4 RDW Std Deviation 45.1 RDW Coeff of Hang 13.2 Plt Count 199 MPV 10.5 Sodium 139 Potassium 4.6 Chloride 109 H Carbon Dioxide 23 Anion Gap 7 BUN 18 Creatinine 0.78 Est Cr Clr Drug Dosing 115.7 eGFR 107.97 BUN/Creatinine Ratio 23.1 H Glucose 139 H Calcium 8.9 Phosphorus 3.8 Magnesium 2.0 Synovial Source Left Knee Synovial Color Red Synovial Appearance Cloudy Synovial WBC (Auto) 04808 H Synovial RBC (Auto) 86830 Synovial Polynuclear % 86.5 Synovial Mononuclear % 13.5 Synovial Crystals Random Vancomycin 10.8 Diagnostic Findings . PG Care Time/CCT Total # of Minutes Spent Total Time Spent with Patient: Total time spent is greater than 50% in coordination of care (as documented) at patient's floor/unit and/or counseling patient: Coding [place] [address] SUB INP/OBS CARE 2/35MIN Patient Type Established History Problem Focused Exam Problem Focused Medical Decision Making Moderate Complexity Diagnoses Effusion, left knee M25.462 Acute gout M10.9
--- NOTE | 2024-10-29 10:29 | Surgery Progress Note ---
Date of Service October 29, 2024 Assessment & Plan (1) Abscess of chest wall: Plan: s/p I&D at bedside for left chest wall abscess afebrile wound culture not finalized yet dressing removed, packing kept in. Change outer dressing as needed and daily. Can remove packing tomorrow if patient still admitted. Can remove packing prior to discharge if discharged today await culture sensitivity continue medical management Admission and Anticipated Discharge Date Admission Date: October 27, 2024 Subjective soreness at left chest wall at site of I&D some sweats last night no fever no n,v Physical Exam Constitutional: WD/WN, vitals as above cooperative and comfortable; no acute distress and not ill appearing Chest (Breasts): Additional Comments: Left chest wall dressing in place. Wound with some dried blood, mild ecchymosis. no induration fluctuance. slightly tender to palpation Skin: no rashes, warm and dry Psychiatric: Orientation: alert and oriented x 3 Results & Data Vital Signs (Past 12 Hours) Vital Signs Temp Pulse Pulse Resp BP Pulse Ox O2 Del Method 10/29/24 07:38 45 L 10/29/24 07:18 36.4 C L 50 L 18 113/71 97 Room Air 10/29/24 02:52 36.4 C L 48 L 18 108/65 96 Room Air 10/28/24 22:41 36.3 C L 52 L 18 129/76 95 Room Air Laboratory Results 10/29/24 10/28/24 Range/Units 06:18 Unknown WBC 11.66 H (4.8-10.8) K/ul RBC 4.71 (4.70-6.10) M/uL Hgb 14.5 (14.0-18.0) g/dl Hct 43.4 (42.0-52.0) % MCV 92.1 (80.0-100.0) fL MCH 30.8 (25.0-34.0) pg MCHC 33.4 (32.0-36.0) g/dL RDW Std Deviation 45.1 (36.4-46.3) fL RDW Coeff of Hang 13.2 (11.5-14.5) % Plt Count 199 (130-400) K/uL MPV 10.5 (9.4-12.4) fL Sodium 139 (136-145) mmol/L Potassium 4.6 (3.5-5.1) mmol/L Chloride 109 H (98-107) mmol/L Carbon Dioxide 23 (21-32) mmol/L Anion Gap 7 (3-11) BUN 18 (6-23) mg/dl Creatinine 0.78 (0.6-1.4) mg/dl Est Cr Clr Drug Dosing 115.7 ml/min eGFR 107.97 BUN/Creatinine Ratio 23.1 H (10-20) Glucose 139 H (70-99(Fasting)) mg/dl Calcium 8.9 (8.6-10.3) mg/dl Phosphorus 3.8 (2.5-4.9) mg/dl Magnesium 2.0 (1.7-2.4) mg/dl Synovial Source Left Knee Synovial Color Red Synovial Appearance Cloudy Synovial WBC (Auto) 84707 H (0-200) /ul Synovial RBC (Auto) 04255 /uL Synovial Polynuclear % 86.5 % Synovial Mononuclear % 13.5 % Synovial Crystals Random Vancomycin 10.8 (10-20) mcg/ml Microbiology 10/27/24 18:57 Aerobic Blood Culture - Preliminary Blood No growth in Aerobic bottle after 24 hours. Anaerobic Blood Culture - Preliminary No growth in Anaerobic bottle after 24 hours. 10/27/24 18:35 Aerobic Blood Culture - Preliminary Blood No growth in Aerobic bottle after 24 hours. Anaerobic Blood Culture - Preliminary No growth in Anaerobic bottle after 24 hours. 10/28/24 Unknown Gram Stain - Final Knee,Left 10/28/24 Unknown Gram Stain - Final Chest
[2024-10-30 06:43] LABS: Hematocrit (blood only) 41.3 % (42.0-52.0); Hemoglobin 14.1 g/dl (14.0-18.0); Mean Corpuscular Hemoglobin 31.9 pg (25.0-34.0); Mean Corpuscular Volume 93.4 fL (80.0-100.0); Platelet Count 208 K/uL (130-400); RDW Standard Deviation 45.6 fL (36.4-46.3); Red Blood Count 4.42 M/uL (4.70-6.10); White Blood Count 7.40 K/ul (4.8-10.8)
[2024-10-30 07:16] LABS: Anion Gap 8.0 (3-11); Blood Urea Nitrogen 18.0 mg/dl (6-23); Calcium 8.7 mg/dl (8.6-10.3); Carbon Dioxide 24.0 mmol/L (21-32); Chloride 109.0 mmol/L (98-107); Creatinine Clr Calc Pharmacy 98.2 ml/min; Glucose 76.0 mg/dl (70-99(Fasting)); Magnesium 2.0 mg/dl (1.7-2.4); Potassium 4.0 mmol/L (3.5-5.1); Sodium 141.0 mmol/L (136-145)
--- NOTE | 2024-10-30 14:28 | Hospitalist Progress Note ---
Date of Service October 30, 2024 Assessment & Plan (1) Acute gout: Plan: 49 yo M w/ Hx of pancreatic cyst, secondary esophageal varices without bleeding, alcoholic cirrhosis of liver with ascites, chronic cholecystitis, coagulopathy, macrocytic anemia, history of biliary colic, presents with bilateral ankle, bilateral big toe pain, left knee pain going on for last 4 days. Having pain while ambulating. While resting pain is under control currently. Also noticed a lump on his left chest wall since about a week. He thinks it is ingrown hair. Denies any fevers. Denies chest pain or shortness of breath. Denies cough. No nausea or vomiting. No abdominal pain. Normal bowel and bladder movements. Denies any headache currently. No neck pain. No runny nose or sore throat. Patient has history of alcoholism. Per patient currently not drinking that much. He is only drinking every 3 to 4 weeks. Last drink was about 3 weeks ago. Patient does not think that he will go through withdrawal. Hemodynamics are okay currently. Acute gout, polyarticular, given alcohol use hx Patient presents with pain and erythematic changes in bilateral ankles and bilateral big toes and left knee going on for last 4 days Acute gout involving multiple joints Received a dose of IV Solu-Medrol 40 mg on admission Ankles and toes feel better now , still w/ L knee pain Blood cultx pending Pt on antibiotics - carroll morales Orthopedics consulted - s/p L knee joint aspiration, c/w gout flare, cultx pending Recommend consult w/ rheumatology given multiple joints involvement - discussed w/ Dr. Calzada - recommend prednisone taper, and outpt follow up next week on Friday in [place] at 1:40pm at [facility]. Left chest wall abscess Empiric Vanco and Zosyn Surgical consult - now s/p I&D, cultx sent and pending History of alcoholism Patient says is not drinking regularly now. Currently drinking only every 3 or 4 weeks. Says last drink was 3 weeks ago. Patient does not think he will go through withdrawal. Thiamine, folic acid and multivitamins. IV Ativan as needed Close monitor Alcohol liver cirrhosis Continue nadolol, spironolactone Lasix and potassium supplement Getting gentle fluids Monitor for volume overload GERD Protonix History of anxiety Buspirone Chronic cholecystitis On ursodiol DVT prophylaxis SCDs Disposition Med/telemetry Full code. Admission and Anticipated Discharge Date Admission Date: October 27, 2024 Subjective Pt seen in follow up of pain in multiple joints, ankles, toes, knees, also chest wall abscess Orthopedics consulted s/p knee joint aspiration, gen. surgery consulted, s/p chest wall abscess I&D Currently lying in bed in NAD no chest pain or shortness of breath, no abd. pain, n/v Ankles and toes feel much better today, still reports L knee painful and muscle spasms Discussed w/ ortho and w/ rheum - findings so far consistent w/ acute gout, ok to cont. prednisone as long as pt is on antibiotics. cultx pending Review of Systems Review of Systems: All systems reviewed & are unremarkable except as noted in Subjective Physical Exam Physical Exam: General- WD/WN M in NAD Head- atraumatic Eyes- PERRL. Neck- supple, no JVD. Lungs- clear to auscultation no wheezing or crackles Heart- regular rate and rhythm; no murmur Abdomen- normal bowel sounds, soft, nontender, no distension Extremities- erythema and warm to palpation of b/l ankle and great toe. painful left knee movements +L knee effusion Neuro- alert, oriented PERRL, no facial palsy; no dysarthria; moves extremities Results & Data Results & Data Vital Signs (Past 12 Hours) Vital Signs Temp Pulse Pulse Resp BP BP Pulse Ox 10/30/24 14:09 36.3 C L 49 L 17 124/75 96 10/30/24 08:27 36.4 C L 46 L 17 127/75 97 10/30/24 06:45 57 L 10/30/24 03:03 36.5 C 51 L 18 107/61 95 O2 Del Method 10/30/24 14:09 Room Air 10/30/24 08:27 Room Air 10/30/24 06:45 10/30/24 03:03 Room Air Laboratory Results 10/30/24 Range/Units 05:39 WBC 7.40 (4.8-10.8) K/ul RBC 4.42 L (4.70-6.10) M/uL Hgb 14.1 (14.0-18.0) g/dl Hct 41.3 L (42.0-52.0) % MCV 93.4 (80.0-100.0) fL MCH 31.9 (25.0-34.0) pg MCHC 34.1 (32.0-36.0) g/dL RDW Std Deviation 45.6 (36.4-46.3) fL RDW Coeff of Hang 13.2 (11.5-14.5) % Plt Count 208 (130-400) K/uL MPV 10.8 (9.4-12.4) fL Sodium 141 (136-145) mmol/L Potassium 4.0 (3.5-5.1) mmol/L Chloride 109 H (98-107) mmol/L Carbon Dioxide 24 (21-32) mmol/L Anion Gap 8 (3-11) BUN 18 (6-23) mg/dl Creatinine 0.92 (0.6-1.4) mg/dl Est Cr Clr Drug Dosing 98.2 ml/min eGFR 100.71 BUN/Creatinine Ratio 19.6 (10-20) Glucose 76 (70-99(Fasting)) mg/dl Calcium 8.7 (8.6-10.3) mg/dl Phosphorus 4.4 (2.5-4.9) mg/dl Magnesium 2.0 (1.7-2.4) mg/dl Medications Administered Current Inpatient Medications Acetaminophen (Acetaminophen 325 Mg Tab) 650 mg PO Q4H PRN PRN Reason: Pain or Fever Stop: 11/26/24 23:09 Last Admin: 10/30/24 09:00 Dose: 650 mg Buspirone HCl (Buspirone 5 Mg Tab) 5 mg PO AMHS [facility] Stop: 11/27/24 08:59 Last Admin: 10/30/24 09:00 Dose: 5 mg Folic Acid (Folic Acid 1 Mg Tab) 1 mg PO QAM [facility] Stop: 11/27/24 08:59 Last Admin: 10/30/24 09:00 Dose: 1 mg Furosemide (Furosemide 20 Mg Tab) 20 mg PO QAM [facility] Stop: 11/27/24 08:59 Last Admin: 10/30/24 09:00 Dose: 20 mg Gabapentin (Gabapentin 300 Mg Cap) 300 mg PO TID LANDRY Stop: 11/27/24 08:59 Last Admin: 10/30/24 14:22 Dose: 300 mg Hydromorphone HCl (Hydromorphone Inj 0.5 Mg/0.5 Ml Syr) 0.5 mg IV Q4H PRN PRN Reason: Severe Pain (Scale 7, 8, 9,10) Stop: 11/10/24 23:09 Last Admin: 10/30/24 05:58 Dose: 0.5 mg Piperacillin Sod/Tazobactam Sod (Zosyn) 4.5 gm in 100 mls @ 25 mls/hr IV Q8H [facility]; Protocol Stop: 11/04/24 05:59 Last Admin: 10/30/24 14:22 Dose: 25 mls/hr Thiamine HCl 100 mg/ Syringe 10 mls @ 2 mls/min IV QAM [facility] Stop: 11/27/24 08:59 Last Admin: 10/30/24 09:00 Dose: 2 mls/min Vancomycin HCl 1,250 mg/ (Sodium Chloride) 275 mls @ 200 mls/hr IV Q12H [facility] Stop: 11/04/24 07:59 Last Infusion: 10/30/24 08:58 Dose: Infused Lorazepam (Lorazepam 2 Mg/1 Ml Vial) 0.5 mg IV Q4H PRN PRN Reason: Anxiety/Agitation Stop: 11/26/24 23:09 Magnesium Chloride (Magnesium Chloride W/Calcium 64mg Delayed Rel Tab) 64 mg PO AMHS [facility] Stop: 11/27/24 08:59 Last Admin: 10/30/24 09:00 Dose: 64 mg Miscellaneous Information (Vancomycin Consult Active) 1 each N/A UD PRN PRN Reason: Consult Stop: 11/26/24 23:09 Multivitamins/Minerals (Cerovite Adv Formula Tab) 1 tab PO QAM [facility] Stop: 11/27/24 08:59 Last Admin: 10/30/24 09:00 Dose: 1 tab Nadolol (Nadolol 40 Mg Tab) 20 mg PO HS [facility] Stop: 11/27/24 20:59 Last Admin: 10/29/24 20:40 Dose: 20 mg Nitroglycerin (Nitroglycerin Sl 0.4 Mg/Tab Tab) 0.4 mg SL Q5M PRN PRN Reason: Chest Pain Stop: 11/26/24 23:09 Oxycodone HCl (Oxycodone Hcl Ir 5 Mg Tab (Immediate Release)) 5 mg PO Q6H PRN PRN Reason: Moderate Pain (Scale 4, 5, 6) Stop: 11/10/24 23:09 Last Admin: 10/30/24 09:00 Dose: 5 mg Pantoprazole Sodium (Pantoprazole 40 Mg Tab) 40 mg PO [facility] Stop: 11/27/24 08:59 Last Admin: 10/30/24 09:00 Dose: 40 mg Polyethylene Glycol (Polyethylene (Miralax) 17 Gm Pack) 17 gm PO DAILY PRN PRN Reason: Constipation Stop: 11/26/24 23:09 Potassium Chloride (Potassium Chloride Crtab 20 Meq Tabcr) 20 meq PO [facility] Stop: 11/27/24 08:59 Last Admin: 10/30/24 09:00 Dose: 20 meq Prednisone (Prednisone 20 Mg Tab) 40 mg PO [facility] Stop: 11/27/24 13:59 Last Admin: 10/30/24 09:00 Dose: 40 mg Spironolactone (Spironolactone 25 Mg Tab) 25 mg PO [facility] Stop: 11/27/24 08:59 Last Admin: 10/30/24 09:00 Dose: 25 mg Ursodiol (Ursodiol 300 Mg Cap) 300 mg PO BID [facility] Stop: 11/27/24 08:59 Last Admin: 10/30/24 09:00 Dose: 300 mg Zolpidem Tartrate (Zolpidem Tartrate 5 Mg Tab) 5 mg PO HS PRN PRN Reason: Insomnia Stop: 11/26/24 23:09 Last Admin: 10/30/24 00:35 Dose: 5 mg
[2024-10-30] MEDS: BACLOFEN 10 MG TAB PO SCH (14:45)
[2024-10-30 16:04] VITALS: RESP 18
[2024-10-31 08:04] VITALS: TEMP 97.5
[2024-10-31 11:40] VITALS: BP 122/79; O2SAT 96
--- NOTE | 2024-10-31 14:12 | Discharge Summary ---
Date of Service October 31, 2024 Admission HPI Per Admitting Provider 49-year-old male past medical history significant for pancreatic cyst, secondary esophageal varices without bleeding, alcoholic cirrhosis of liver with ascites, chronic cholecystitis, coagulopathy, macrocytic anemia, history of biliary colic, presents with bilateral ankle, bilateral big toe pain, left knee pain going on for last 4 days. Having pain while ambulating. While resting pain is under control currently. Also noticed a lump on his left chest wall since about a week. He thinks it is ingrown hair. Denies any fevers. Denies chest pain or shortness of breath. Denies cough. No nausea or vomiting. No abdominal pain. Normal bowel and bladder movements. Denies any headache currently. No neck pain. No runny nose or sore throat. Patient has history of alcoholism. Per patient currently not drinking that much. He is only drinking every 3 to 4 weeks. Last drink was about 3 weeks ago. Patient does not think that he will go through withdrawal. Hemodynamics are okay currently. Past medical history. As mentioned above Past surgical history. Cologuard. EGD. ERCP with stone removal. Tonsillectomy. Social history. Snuff tobacco 1 can every 2 weeks. History of alcohol abuse. Currently states drinking only 3 to 4 weeks and when he drinks he drinks 4-5 shots of alcohol.. No drug use. Family history. Mother has asthma. Diabetes. Stroke. Father had prostate cancer. Stroke. Admission Exam Per Admitting Provider General- Not in acute distress Head- atraumatic Eyes- PERRL. ENT- oropharynx clear Neck- supple, no JVD. Lungs- clear to auscultation no wheezing or crackles Heart- regular rate and rhythm; no murmur, no gallop. Abdomen- normal bowel sounds, soft, nontender, no distension Extremities- erythema and warm to palpation of b/l ankle and great toe. painful left knee movements Neuro- alert, oriented PERRL, no facial palsy; no dysarthria; moves extremities Principal Diagnosis Acute gout, chest wall abscess s/p I&D Discharge Exam General- WD/WN M in NAD Head- atraumatic Eyes- PERRL. Neck- supple, no JVD. Lungs- clear to auscultation no wheezing or crackles Heart- regular rate and rhythm; no murmur Abdomen- normal bowel sounds, soft, nontender, no distension Extremities- erythema of b/l ankle and great toe - now resolved. painful left knee movements +L knee effusion (much improved) Neuro- alert, oriented PERRL, no facial palsy; no dysarthria; moves extrem ities Discharge Data Allergies Allergy/AdvReac Type Severity Reaction Status Date / Time aspirin AdvReac Mild BLOODY NOSE Verified 10/27/24 20:55 Consultations 10/27/24 20:18 ED Decision to Admit Stat 10/28/24 08:00 Consult General Surgery Routine Consult Orthopedic Surgery Routine 10/28/24 10:14 Consult Rheumatology Routine Ordered Studies 10/27/24 18:27 US softtissue chstwall/uprback Urgent Findings: There is an avascular multiloculated heterogeneous structure within the subcutaneous soft tissue consistent with an abscess within same. Impression Left chest wall abscess. Hospital Course (1) Acute gout: 49 yo M w/ Hx of pancreatic cyst, secondary esophageal varices without bleeding, alcoholic cirrhosis of liver with ascites, chronic cholecystitis, coagulopathy, macrocytic anemia, history of biliary colic, presents with bilateral ankle, bilateral big toe pain, left knee pain going on for last 4 days. Having pain while ambulating. While resting pain is under control currently. Also noticed a lump on his left chest wall since about a week. He thinks it is ingrown hair. Denies any fevers. Denies chest pain or shortness of breath. Denies cough. No nausea or vomiting. No abdominal pain. Normal bowel and bladder movements. Denies any headache currently. No neck pain. No runny nose or sore throat. Patient has history of alcoholism. Per patient currently not drinking that much. He is only drinking every 3 to 4 weeks. Last drink was about 3 weeks ago. Patient does not think that he will go through withdrawal. Hemodynamics are okay currently. Acute gout, polyarticular, given alcohol use hx Patient presents with pain and erythematic changes in bilateral ankles and bilateral big toes and left knee going on for last 4 days Acute gout involving multiple joints Received a dose of IV Solu-Medrol 40 mg on admission Ankles and toes feel better now , still w/ L knee pain Blood cultx - ngtd Pt on antibiotics - zosyn, vanco while inpt Orthopedics consulted - s/p L knee joint aspiration, c/w gout flare, cultx pending - so far no growth, no organisms seen Recommend consult w/ rheumatology given multiple joints involvement - discussed w/ Dr. Calzada - recommend prednisone taper, and outpt follow up next week on Friday in [place] at 1:40pm at [facility]. Left chest wall abscess Empiric Vanco and Zosyn Surgical consult - now s/p I&D, cultx sent and pending - so far normal skim levi, no specific organism, discussed w/ lab today History of alcoholism Patient says is not drinking regularly now. Currently drinking only every 3 or 4 weeks. Says last drink was 3 weeks ago. Patient does not think he will go through withdrawal. Thiamine, folic acid and multivitamins. IV Ativan as needed Close monitor No signs of withdrawal Alcohol liver cirrhosis Continue nadolol, spironolactone Lasix and potassium supplement received gentle fluids No signs of volume overload GERD Protonix History of anxiety Buspirone Chronic cholecystitis On ursodiol Total Time Total Time Spent Total Time Spent (In Minutes): 40 Discharge Plan Discharge Items Patient Disposition: Home - Self-Care Reason For Visit: ACUTE GOUT AND LEFT CHEST WALL ABSCESS Discharge Diagnosis: Acute gout, chest wall abscess s/p I&D Condition on Discharge: Good Activity: Per Instructions section Non-emergency contact: Primary Care Provider and Specialist Call non-emergency contact if: you have any medication questions and your symptoms worsen Follow-up/Referrals: Michelle Borrego DO [Primary Care Provider] - Diet: Regular Addtl Attending Provider Instructions: Follow up with your primary care doctor and with corrections sergeant, Dr. Calzada. The appointment with Dr. Calzada was scheduled for you on Friday in [place] at 1:40pm at [facility]. Change the chest wound dressing daily and as needed with gauze and tape. Finish antibiotic course as prescribed. Take prednisone 30 mg daily until further discussed with corrections sergeant. Follow up with primary care doctor within 1 week. Pending Studies at Discharge: Yes Studies:: final cultures results Stand-Alone Forms: My [employer], Smoking Cessation Medications and DC Order Prescriptions: New baclofen 10 mg Tablet 5 mg PO BID 5 Days Qty: 5 0RF oxycodone 5 mg Tablet 5 mg PO Q6H PRN (Reason: pain) Qty: 7 0RF prednisone 10 mg tablet 30 mg PO DAILY 3 Days Qty: 9 0RF cephalexin 500 mg capsule 500 mg PO QID 7 Days Qty: 28 0RF Continued ursodiol 300 mg Capsule 300 mg PO BID spironolactone 25 mg tablet 25 mg PO QAM furosemide 20 mg tablet 20 mg PO QAM pantoprazole 40 mg tablet,delayed release (DR/EC) 40 mg PO QAM folic acid 1 mg Tablet 1 mg PO QAM Qty: 30 0RF magnesium chloride [Mag 64] 64 mg Tablet,Delayed Release (Dr/Ec) 64 mg PO AMHS buspirone 5 mg tablet 5 mg PO AMHS potassium chloride 20 mEq tablet,ER particles/crystals 20 meq PO QAM zolpidem 5 mg tablet 5 mg PO HS PRN (Reason: Insomnia) nadolol 20 mg tablet 20 mg PO HS gabapentin 300 mg capsule 300 mg PO TID Discharge Orders: Discharge Order (Routine); Ordered 10/31/24 Ordered By: Ethan Robles Admission Data Admit Date/Time: 10/27/24 21:42 Attending Provider: Ethan Robles Admit Provider: Josh Sosa Primary Care Provider: Michelle Borrego Other Providers: Josh Sosa; Rai Martínez; Rahul Baxter; Micah Barry
[2024-10-31 14:49] VITALS: PULSE 53
[2024-11-01] MEDS ORDERED: VANCOMYCIN LEVEL ONE (07:00)
== END 2024-10-31 15:56 | disposition home or self-care (01) | DRG 603 ==
LOC: ED 17:53 → 2N 21:42